=== PATIENT | male | born 1955 | race Caucasian/White ===

== ENCOUNTER 2018-07-23 09:49 | Inpatient (IN) | payer OTHER ==
[~2018-07-23] VITALS: Ht 188 cm; Wt 113.3 kg
[~2018-07-23 09:49] MED LIST: ALBU17AE3; ALBU17AE3 IH; DOXY100C2 PO; FLUT12AE6 IH; HYDR1TAB86; HYDROCODONE; LEVO500T69 PO; LOVA20TA2; LOVA40TA2 PO; MEDROL 4 MG; PRD50T PO
[2018-07-23] MEDS ORDERED: NS IV 1000 ML 1,000 ML IV STA (09:52)
[2018-07-23] MEDS ORDERED: fentaNYL INJECTION 100 MCG/2 ML AMP IVP STA (10:03)
[2018-07-23 10:12] LABS: BASOPHILS % (AUTO) 0 % (0-10); EOSINOPHILS % (AUTO) 0 % (0-10); HEMATOCRIT 56 % (40-54); HEMOGLOBIN 19.2 G/DL (13.3-17.7); LYMPHOCYTES # (AUTO) 1.3 X 10^3 (1.0-4.0); LYMPHOCYTES % (AUTO) 6 % (12-44); MEAN CORPUSCULAR HEMOGLOBIN 32 PG (25-34); MEAN CORPUSCULAR HGB CONC 34 G/DL (32-36); MEAN CORPUSCULAR VOLUME 93 FL (80-99); MEAN PLATELET VOLUME 10.3 FL (7.4-10.4); MONOCYTES # (AUTO) 0.5 X 10^3 (0.0-1.0); MONOCYTES % (AUTO) 2 % (0-12); NEUTROPHILS # (AUTO) 20.3 X 10^3 (1.8-7.8); NEUTROPHILS % (AUTO) 92 % (42-75); PLATELET COUNT 297 10^3/uL (130-400); RED BLOOD COUNT 6.03 10^6/uL (4.35-5.85); RED CELL DISTRIBUTION WIDTH 14.6 % (10.0-14.5); WHITE BLOOD COUNT 22.1 10^3/uL (4.3-11.0)
[2018-07-23] MEDS ORDERED: HYDROmorphone 2 MG/ML VIAL (DILAUDID) IV STA ×2 (10:18→11:31)
[2018-07-23 10:28] LABS: ALANINE AMINOTRANSFERASE 34 U/L (0-55); ALBUMIN 4.5 GM/DL (3.2-4.5); ALKALINE PHOSPHATASE 58 U/L (40-136); BILIRUBIN,TOTAL 0.4 MG/DL (0.1-1.0); BUN/CREATININE RATIO 18; CALCIUM 10.2 MG/DL (8.5-10.1); CARBON DIOXIDE 25 MMOL/L (21-32); CHLORIDE 99 MMOL/L (98-107); CREATININE SERUM 0.95 MG/DL (0.60-1.30); GFR ESTIMATED > 60; GLUCOSE 150 MG/DL (70-105); POTASSIUM 4.2 MMOL/L (3.6-5.0); SODIUM 138 MMOL/L (135-145); TOTAL PROTEIN 8.4 GM/DL (6.4-8.2)
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
[2018-07-23 10:51] LABS: BAND NEUTROPHILS 3 %; BASOPHILS % (MANUAL) 0 %; EOSINOPHILS % (MANUAL) 0 %; LYMPHOCYTES % (MANUAL) 7 %; MONOCYTES % (MANUAL) 0 %; NEUTROPHILS % (MANUAL) 90 %; RBC MORPH NORMAL
[2018-07-23] MEDS ORDERED: RECEIVED CONTRAST (Hold Metformin) IV SCH (11:00)
[2018-07-23] MEDS ORDERED: IOHEXOL 350 MG/ML 100 ML (OMNIPAQUE 350) VIAL IV ONE (11:00)
[2018-07-23] MEDS ORDERED: NS 100 ML (IVPB) BAG IV ONE (11:00)
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
[2018-07-23] MEDS ORDERED: HYDROmorphone 2 MG/ML VIAL (DILAUDID) IV ONE (12:45)
[2018-07-23 13:05] VITALS: BP 131/81
--- NOTE | 2018-07-23 13:10 | History & Physical-Hospitalist ---
History of Present Illness HPI/Chief Complaint This is a 62-year-old white male who has a history of having a perforated diverticulitis in the past requiring colectomy, with colostomy, and reanastomosis in the remote past by Dr. Vargas. He presents with about 24 hours of severe abdominal pain and bloating, without passing of flatus. CT shows small bowel obstruction, without evidence of perforation. He describes the abdominal pain is 10 out of 10. He had a large bowel movement yesterday but then began vomiting yesterday evening and overnight Source: patient Exam Limitations: no limitations Date Seen 07/23/18 Time Seen by a Provider: 13:00 Attending Physician Lizz Malhotra PCP Chelsea Bonilla Referring Physician Date of Admission Jul 23, 2018 at 11:47 Home Medications & Allergies Home Medications Reviewed patient Home Medication Reconciliation performed by pharmacy medication reconciliations hvac operations technician and/or nursing. Patients Allergies have been reviewed. Allergies Allergies Coded Allergies No Known Drug Allergies (Bzdrjiss25/23/07) Past Hamfrzm-Kcmwfg-Onhpdj Hx Past Med/Social Hx: Reviewed Nursing Past Med/Soc Hx Patient Social History Marrital Status: Employed/Student: unemployed Alcohol Use: Denies Use Recreational Drug Use: No Smoking Status: Current Everyday Smoker Recent Foreign Travel: No Contact w/other who traveled: No Recent Hopitalizations: Yes Recent Infectious Disease Expo: No Past Medical History Surgeries: Abdominal, Bowel Surgery, Gallbladder, Joint Replacement, Orthopedic (Bilateral knee replacement) Reproductive: No Gastrointestinal: Diverticulosis History of Blood Disorders: No Family History Reviewed Nursing Family Hx Review of Systems Constitutional: see HPI Respiratory: no symptoms reported Cardiovascular: no symptoms reported Gastrointestinal: abdominal pain, loss of appetite, vomiting Genitourinary: decreased output Musculoskeletal: joint pain (Right wrist) Skin: no symptoms reported Psychiatric/Neurological: No Symptoms Reported Physical Exam Physical Exam Vital Signs Vital Signs - First Documented 07/23/18 07/23/18 09:53 13:06 Temp 96.8 Pulse 101 Resp 16 B/P (MAP) 143/113 (123) Pulse Ox 94 O2 Delivery Room Air O2 Flow Rate 2.00 Capillary Refill : Less Than 3 Seconds Height, Weight, BMI Height: 6'2.00" Weight: 230lbs. oz. 104.674223we; BMI Method:Stated General Appearance: Moderate Distress Eyes: Bilateral Eye Normal Inspection HEENT: Other (Dry oral mucosa) Neck: Full Range of Motion, Non Tender, Supple Respiratory: Chest Non Tender, Lungs Clear, Normal Breath Sounds, No Accessory Muscle Use, No Respiratory Distress Cardiovascular: Regular Rate, Rhythm, No Gallop, No Murmur, Normal Peripheral Pulses Gastrointestinal: Abnormal Bowel Sounds, Distended, Guarding, Tenderness Rectal: Deferred Back: Normal Inspection, No CVA Tenderness, No Vertebral Tenderness Extremity: No Calf Tenderness, No Pedal Edema Neurologic/Psychiatric: Alert, Oriented x3, No Motor/Sensory Deficits, Normal 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 Imaging: Reviewed Imaging Report Assessment/Plan Admission Diagnosis Small bowel obstruction Chronic narcotics use secondary to joint pain History of diverticulitis with perforation requiring diverting colostomy and then reanastomosis Volume contraction with an elevated white count and hemoglobin Plan is to admit for IV fluids surgical consultation patient currently refuses an NG tube, will use pain management. Admission Status: Inpatient Order (span 2 midnights) Reason for Inpatient Admission: It is unlikely that this patient small bowel obstruction will resolve without surgical correction or prolonged NG tube placement Copy Copies To 1: FROILAN BONILLA KATHLEEN M MD Jul 23, 2018 13:10
[2018-07-23] MEDS ORDERED: HYDROmorphone 2 MG/ML VIAL (DILAUDID) IV PRN ×2 (13:15)
[2018-07-23] MEDS ORDERED: CATHETER FLUSH 10 ML SYR IV PRN (13:15)
[2018-07-23] MEDS: D5 LR IV SOLUTION 1,000 ML IV SCH ×2 (14:04→21:28)
[2018-07-23] MEDS: CATHETER FLUSH 10 ML SYR IV SCH ×2 (14:04→21:27)
--- NOTE | 2018-07-23 14:18 | Consultation ---
History of Present Illness History of Present Illness Patient Consulted On(conrado/time) 07/23/18 14:13 Date Seen by Provider: Jul 23, 2018 Time Seen by Provider: 14:13 Reason for Visit: acute onset of colicky abdominal pain and vomiting History of Present Illness Acute onset of colicky central abdominal pain followed by vomiting, leading to an emergency room visit. CT scan shows features of small bowel obstruction. His past surgical history is notable for diverticular sigmoid perforation 27 years ago requiring Yoon's procedure, followed 4 months later by a reversal of his colostomy. He reports undergoing normal colonoscopy within the last 5 years at an outside facility. Allergies and Home Medications Allergies Coded Allergies: No Known Drug Allergies (Verified , 05/22/07) Patient Home Medication List Home Medication List Reviewed: Yes Past Ucffyag-Kdqekt-Ytuorm Hx Past Med/Social Hx: Reviewed Nursing Past Med/Soc Hx Patient Social History Alcohol Use: Denies Use Recreational Drug Use: No Smoking Status: Current Everyday Smoker Type Used: Cigars Recent Foreign Travel: No Contact w/Someone Who Travel: No Recent Infectious Disease Expo: No Recent Hopitalizations: Yes Immunizations Up To Date PED Vaccines UTD: Yes Date of Pneumonia Vaccine: Jul 23, 2014 Date of Influenza Vaccine: Apr 30, 2018 Seasonal Allergies Seasonal Allergies: No Past Medical History Surgeries: Yes (BUNIONECTOMY,ARTHOSCOPIC MARILYNN KNEES) Abdominal, Bowel Surgery, Gallbladder, Joint Replacement, Orthopedic (Bilateral knee replacement) Respiratory: No Cardiac: No Neurological: No Reproductive Disorders: No Genitourinary: No Gastrointestinal: Yes (HAS AN UNBILICAL HERNIA, BOWEL OBSTRUCTION WITH A REVERSAL OF A COLOSTOMY) Diverticulosis Musculoskeletal: No Endocrine: No HEENT: No Cancer: No Psychosocial: No Integumentary: No Blood Disorders: No Family Medical History Reviewed Nursing Family Hx Cardiovascular disease 19 MOTHER G8 BROTHER Congenital heart disease 19 FATHER Review of Systems-General Constitutional: no symptoms reported EENTM: no symptoms reported Respiratory: no symptoms reported Cardiovascular: no symptoms reported Gastrointestinal: see HPI Genitourinary: no symptoms reported Musculoskeletal: joint pain Skin: no symptoms reported Psychiatric/Neurological: No Symptoms Reported Physical Exam-General Problems Physical Exam Vital Signs Vital Signs - First Documented 07/23/18 07/23/18 09:53 13:06 Temp 96.8 Pulse 101 Resp 16 B/P (MAP) 143/113 (123) Pulse Ox 94 O2 Delivery Room Air O2 Flow Rate 2.00 Capillary Refill : Less Than 3 Seconds General Appearance: no apparent distress Neck: supple Respiratory: lungs clear Cardiovascular: regular rate, rhythm Gastrointestinal: non tender, soft, distended Rectal: deferred Extremities: non-tender Neurologic/Psychiatric: alert, oriented x 3 Skin: warm/dry Comments midline laparotomy scar without any incisional hernia. Scar over the left lower quadrant resulting from temporary colostomy. Assessment/Plan Assessment/Plan Admission Diagnosis/Plan gentleman with small bowel obstruction. Possibly due to adhesions. Reasonable to manage nonoperatively at first. This would involve nasogastric tube decompression, IV fluids and observation. Should his symptoms persist, a water- soluble contrast study would be obtained first. Admission Status: Inpatient Order (span 2 midnights) Clinical Quality Measures DVT/VTE Risk/Contraindication: Risk Factor Score Per Nursin RFS Level Per Nursing on Admit: 3=High FUENTES SMALLS MD Jul 23, 2018 14:18
[2018-07-23] MEDS ORDERED: LORazepam INJ 2 MG/ML (ATIVAN) VIAL IVP PRN (14:30)
[2018-07-23] MEDS ORDERED: NICOTINE 21 MG (NICODERM) PATCH TD NR (14:30)
[2018-07-23] MEDS: ONDANSETRON 4 MG/2 ML (SDV) Z0FRAN IV PRN (14:37)
[2018-07-23] MEDS: fentaNYL INJECTION 100 MCG/2 ML AMP IVP PRN ×2 (14:39→21:48)
[2018-07-23] MEDS: LORazepam INJ 2 MG/ML (ATIVAN) VIAL IVP NR ×2 (14:39→15:18)
[2018-07-23 16:15] VITALS: BP 140/85
[2018-07-23 20:00] VITALS: BP 136/88
[2018-07-24] VITALS (7 sets, daily range): BP systolic 121–157; BP diastolic 72–171
[2018-07-24] MEDS: fentaNYL INJECTION 100 MCG/2 ML AMP IVP PRN ×3 (03:27→18:30)
[2018-07-24] MEDS: D5 LR IV SOLUTION 1,000 ML IV SCH ×3 (04:54→22:21)
[2018-07-24 06:23] LABS: BASOPHILS % (AUTO) 0 % (0-10); EOSINOPHILS # (AUTO) 0.1 10^3/uL (0.0-0.3); EOSINOPHILS % (AUTO) 0 % (0-10); HEMATOCRIT 50 % (40-54); HEMOGLOBIN 16.4 G/DL (13.3-17.7); LYMPHOCYTES # (AUTO) 1.8 X 10^3 (1.0-4.0); LYMPHOCYTES % (AUTO) 12 % (12-44); MEAN CORPUSCULAR HEMOGLOBIN 32 PG (25-34); MEAN CORPUSCULAR HGB CONC 33 G/DL (32-36); MEAN CORPUSCULAR VOLUME 97 FL (80-99); MEAN PLATELET VOLUME 10.4 FL (7.4-10.4); MONOCYTES # (AUTO) 1.4 X 10^3 (0.0-1.0); MONOCYTES % (AUTO) 9 % (0-12); NEUTROPHILS % (AUTO) 79 % (42-75); PLATELET COUNT 238 10^3/uL (130-400); RED BLOOD COUNT 5.12 10^6/uL (4.35-5.85); RED CELL DISTRIBUTION WIDTH 14.9 % (10.0-14.5); WHITE BLOOD COUNT 15.4 10^3/uL (4.3-11.0)
[2018-07-24 06:36] LABS: PROTHROMBIN TIME PATIENT 13.3 SEC (12.2-14.7)
[2018-07-24 06:50] LABS: ALANINE AMINOTRANSFERASE 23 U/L (0-55); ALBUMIN 3.6 GM/DL (3.2-4.5); ALKALINE PHOSPHATASE 45 U/L (40-136); BILIRUBIN,TOTAL 0.6 MG/DL (0.1-1.0); BUN/CREATININE RATIO 24; CALCIUM 9.1 MG/DL (8.5-10.1); CARBON DIOXIDE 28 MMOL/L (21-32); CHLORIDE 102 MMOL/L (98-107); CREATININE SERUM 0.84 MG/DL (0.60-1.30); GFR ESTIMATED > 60; GLUCOSE 124 MG/DL (70-105); POTASSIUM 3.9 MMOL/L (3.6-5.0); SODIUM 141 MMOL/L (135-145); TOTAL PROTEIN 6.2 GM/DL (6.4-8.2)
[2018-07-24] MEDS: ONDANSETRON 4 MG/2 ML (SDV) Z0FRAN IV PRN ×3 (06:58→19:48)
[2018-07-24] MEDS: CATHETER FLUSH 10 ML SYR IV SCH ×3 (07:34→22:46)
--- NOTE | 2018-07-24 10:02 | Progress Note (SOAP) ---
Subjective Date Seen by a Provider: Jul 24, 2018 Time Seen by a Provider: 10:00 Subjective/Events-last exam Abdominal pain better, reports nausea. Passed flatus. [facility] decreasing Review of Systems General: No Chills, No Night Sweats, No Fatigue, No Malaise HEENT: No Head Aches, No Eye Pain, No Ear Pain, No Dysphasia, No Sinus Congestion, No Post Nasal Drip, No Sore Throat Pulmonary: Cough Cardiovascular: No: Chest Pain, Palpitations, Orthopnea, Paroxysmal Noc. Dyspnea, Edema, Lt Headedness Gastrointestinal: Nausea Genitourinary: No Dysuria, No Frequency, No Incontinence, No Hematuria, No Retention Musculoskeletal: hand pain Neurological: No: Weakness, Numbness, Incoordination, Change in speech, Confusion, Seizures, Other Objective Exam Vital Signs Date Time Temp Pulse Resp B/P (MAP) Pulse Ox O2 Delivery O2 Flow Rate FiO2 07/24/18 07:38 98.9 84 20 157/86 (109) 94 Room Air 07/24/18 06:02 97.9 97 20 142/79 (100) 92 Room Air 07/24/18 04:00 97.9 97 20 142/79 (100) 92 Room Air 07/24/18 00:00 99.3 92 20 121/171 (155) 93 Room Air 07/23/18 20:00 99.7 98 16 136/88 (104) 88 Room Air 07/23/18 20:00 Room Air 07/23/18 16:15 97.9 92 20 140/85 (103) 93 Room Air 07/23/18 13:10 Nasal Cannula 2.00 07/23/18 13:06 89 16 137/96 (110) 96 Nasal Cannula 2.00 07/23/18 13:05 97.9 82 18 131/81 (98) 94 Room Air I & O 07/24/18 07:00 Intake Total 3000 ml Output Total 1525 ml Balance 1475 ml Capillary Refill : Less Than 3 SecondsLess Than 3 Seconds General Appearance: Anxious Neck: Normal Inspection Respiratory: Lungs Clear Cardiovascular: Regular Rate, Rhythm Gastrointestinal: non tender, soft Neurologic/Psychiatric: Alert, Oriented x3 Skin: Warm/Dry Other comments Abdominal distension resolved. Results Lab Laboratory Tests 07/23/18 10:04: White Blood Count 22.1H, Red Blood Count 6.03H, Hemoglobin 19.2H, Hematocrit 56H , Mean Corpuscular Volume 93, Mean Corpuscular Hemoglobin 32, Mean Corpuscular Hemoglobin Concent 34, Red Cell Distribution Width 14.6H, Platelet Count 297, Mean Platelet Volume 10.3, Neutrophils (%) (Auto) 92H, Lymphocytes (%) (Auto) 6L , Monocytes (%) (Auto) 2, Eosinophils (%) (Auto) 0, Basophils (%) (Auto) 0, Neutrophils # (Auto) 20.3H, Lymphocytes # (Auto) 1.3, Monocytes # (Auto) 0.5, Eosinophils # (Auto) 0.0, Basophils # (Auto) 0.0, Neutrophils % (Manual) 90, Lymphocytes % (Manual) 7, Monocytes % (Manual) 0, Eosinophils % (Manual) 0, Basophils % (Manual) 0, Band Neutrophils 3, Blood Morphology Comment NORMAL, Sodium Level 138, Potassium Level 4.2, Chloride Level 99, Carbon Dioxide Level 25, Anion Gap 14, Blood Urea Nitrogen 17, Creatinine 0.95, Estimat Glomerular Filtration Rate > 60, BUN/Creatinine Ratio 18, Glucose Level 150H, Calcium Level 10.2H, Corrected Calcium 9.8, Total Bilirubin 0.4, Aspartate Amino Transf (AST/SGOT) 20, Alanine Aminotransferase (ALT/SGPT) 34, Alkaline Phosphatase 58, C-Reactive Protein High Sensitivity 0.36, Total Protein 8.4H, Albumin 4.5 07/24/18 06:02: White Blood Count 15.4H, Red Blood Count 5.12, Hemoglobin 16.4, Hematocrit 50, Mean Corpuscular Volume 97, Mean Corpuscular Hemoglobin 32, Mean Corpuscular Hemoglobin Concent 33, Red Cell Distribution Width 14.9H, Platelet Count 238, Mean Platelet Volume 10.4, Neutrophils (%) (Auto) 79H, Lymphocytes (%) (Auto) 12 , Monocytes (%) (Auto) 9, Eosinophils (%) (Auto) 0, Basophils (%) (Auto) 0, Neutrophils # (Auto) 12.0H, Lymphocytes # (Auto) 1.8, Monocytes # (Auto) 1.4H, Eosinophils # (Auto) 0.1, Basophils # (Auto) 0.0, Sodium Level 141, Potassium Level 3.9, Chloride Level 102, Carbon Dioxide Level 28, Anion Gap 11, Blood Urea Nitrogen 20H, Creatinine 0.84, Estimat Glomerular Filtration Rate > 60, BUN /Creatinine Ratio 24, Glucose Level 124H, Calcium Level 9.1, Corrected Calcium 9.4, Total Bilirubin 0.6, Aspartate Amino Transf (AST/SGOT) 18, Alanine Aminotransferase (ALT/SGPT) 23, Alkaline Phosphatase 45, Total Protein 6.2L, Albumin 3.6, Prothrombin Time 13.3, INR Comment 1.0 Assessment/Plan Assessment/Plan Assess & Plan/Chief Complaint gentleman with small bowel obstruction. Possibly due to adhesions. Reasonable to manage nonoperatively at first. This would involve nasogastric tube decompression, IV fluids and observation. Should his symptoms persist, a water- soluble contrast study would be obtained first. Small bowel obstruction, improving. Gastrografin study in am. Final Diagnosis Small bowel obstruction Clinical Quality Measures DVT/VTE Risk/Contraindication: Risk Factor Score Per Nursin RFS Level Per Nursing on Admit: 3=High FUENTES SMALLS MD Jul 24, 2018 10:02
--- NOTE | 2018-07-24 12:14 | Progress Note-Hospitalist ---
Subjective HPI/CC On Admission Date Seen by Provider: Jul 24, 2018 Time Seen by Provider: 12:00 This is a 62-year-old white male who has a history of having a perforated diverticulitis in the past requiring colectomy, with colostomy, and reanastomosis in the remote past by Dr. Vargas. He presents with about 24 hours of severe abdominal pain and bloating, without passing of flatus. CT shows small bowel obstruction, without evidence of perforation. He describes the abdominal pain is 10 out of 10. He had a large bowel movement yesterday but then began vomiting yesterday evening and overnight Subjective/Events-last exam Patient feels a little bit better today. Dr. Patterson had an NG tube placed with about a liter of gastric output. It has passed some flatus today. he does complain of having a headache. Abdominal pain is better. White count is down. Review of Systems Gastrointestinal: Nausea Objective Exam Vital Signs Vital Signs Date Time Temp Pulse Resp B/P (MAP) Pulse Ox O2 Delivery O2 Flow Rate FiO2 07/24/18 07:38 98.9 84 20 157/86 (109) 94 Room Air 07/23/18 13:10 2.00 Capillary Refill : Less Than 3 SecondsLess Than 3 Seconds General Appearance: No Apparent Distress, WD/WN HEENT: Normal ENT Inspection Neck: Non Tender, Supple Respiratory: Chest Non Tender, Lungs Clear, Normal Breath Sounds, No Accessory Muscle Use, No Respiratory Distress Cardiovascular: Regular Rate, Rhythm, No Gallop, No Murmur Gastrointestinal: Abnormal Bowel Sounds, Distended Rectal: Deferred Back: Normal Inspection Extremity: No Pedal Edema Results/Procedures Lab Laboratory Tests 07/24/18 06:02 Patient resulted labs reviewed. Imaging: Reviewed Imaging Report Assessment/Plan Assessment and Plan Assess & Plan/Chief Complaint Small bowel obstruction-slightly improved today day number 2 NG suction, begin ambulation. Chronic narcotics use secondary to joint pain History of diverticulitis with perforation requiring diverting colostomy and then reanastomosis Volume contraction with an elevated white count and hemoglobin-improved Headache will allow sips of Coca-Cola for the caffeine Clinical Quality Measures DVT/VTE Risk/Contraindication: Risk Factor Score Per Nursin RFS Level Per Nursing on Admit: 3=EMPERATRIZ Dunn MD Jul 24, 2018 12:14
[2018-07-24] MEDS ORDERED: NICOTINE PATCH REMOVAL TP SCH (14:29)
[2018-07-24] MEDS: NICOTINE 21 MG (NICODERM) PATCH TD SCH (15:25)
[2018-07-24] MEDS ORDERED: KETOROLAC 15 MG/ML VIAL IM PRN (21:45)
[2018-07-25] VITALS: BP 133/60
[2018-07-25 04:00] VITALS: BP 161/80
[2018-07-25] MEDS: ONDANSETRON 4 MG/2 ML (SDV) Z0FRAN IV PRN (06:02)
[2018-07-25] MEDS: CATHETER FLUSH 10 ML SYR IV SCH (06:06)
[2018-07-25] MEDS: D5 LR IV SOLUTION 1,000 ML IV SCH (06:19)
[2018-07-25] MEDS: fentaNYL INJECTION 100 MCG/2 ML AMP IVP PRN (06:27)
[2018-07-25] MEDS ORDERED: DIATRIZOATE MEGLUM/SODIUM 37% 120 ML (GASTROGRAFIN) NG ONE (07:45)
[2018-07-25 08:00] VITALS: BP 136/88
[2018-07-25] MEDS ORDERED: NICOTINE PATCH REMOVAL TP SCH (08:59)
[2018-07-25] MEDS: NICOTINE 21 MG (NICODERM) PATCH TD SCH (09:53)
--- NOTE | 2018-07-25 10:00 | Diagnostic Imaging Report ---
Indication: Partial small bowel obstruction. 120 mL Gastrografin mixed with 120 mL water was injected into the patient's indwelling NG tube. Serial radiographs over the abdomen were obtained. Preliminary radiographs show NG tube within the stomach. Surgical clips in the right upper quadrant. Multiple BB foreign bodies overlie the left lower quadrant. The bowel gas pattern appears nonobstructive on the neuropsychiatrist view. Post injection images demonstrate contrast within the stomach with prompt emptying into the small bowel. There is normal progression of contrast into the right colon. No small bowel dilatation or evidence of small bowel obstruction is seen. The mucosal fold pattern is unremarkable. Impression: Normal small bowel follow-through study. There is no evidence of a small bowel obstruction. Dictated by: Dictated on workstation # [id number]
[2018-07-25 12:00] VITALS: BP 152/87
--- NOTE | 2018-07-25 13:16 | Progress Note (SOAP) ---
Subjective Date Seen by a Provider: Jul 25, 2018 Time Seen by a Provider: 13:15 Subjective/Events-last exam small bowel contrast study negative for mechanical obstruction. He has had several bowel movements and reports no abdominal pain. Review of Systems General: No Chills, No Night Sweats, No Fatigue, No Malaise HEENT: No Head Aches, No Eye Pain, No Ear Pain, No Dysphasia, No Sinus Congestion, No Post Nasal Drip, No Sore Throat Pulmonary: No Dyspnea, No Cough, No Pleuritic Chest Pain Cardiovascular: No: Chest Pain, Palpitations, Orthopnea, Paroxysmal Noc. Dyspnea, Edema, Lt Headedness Gastrointestinal: No: Nausea, Vomiting, Abdominal Pain, Diarrhea, Constipation , Melena, Hematochezia Genitourinary: No Dysuria, No Frequency, No Incontinence, No Hematuria, No Retention Musculoskeletal: No: other, neck pain, shoulder pain, arm pain, back pain, hand pain, leg pain, foot pain Neurological: No: Weakness, Numbness, Incoordination, Change in speech, Confusion, Seizures, Other Objective Exam Vital Signs Date Time Temp Pulse Resp B/P (MAP) Pulse Ox O2 Delivery O2 Flow Rate FiO2 07/25/18 09:02 Nasal Cannula 2.00 07/25/18 08:00 99.1 75 20 136/88 (104) 93 Room Air 07/25/18 04:00 98.5 84 18 161/80 (107) 92 Room Air 07/25/18 00:00 97.1 77 20 133/60 (84) 95 Room Air 07/24/18 20:00 Room Air 07/24/18 20:00 98.6 82 16 154/87 (109) 90 Room Air 07/24/18 16:00 98.5 86 18 148/80 (102) 91 Room Air I & O 07/25/18 07:00 Intake Total 3000 ml Output Total 4175 ml Balance -1175 ml Capillary Refill : Less Than 3 SecondsLess Than 3 Seconds General Appearance: Anxious Neck: Normal Inspection Respiratory: Lungs Clear Gastrointestinal: non tender, soft Extremity: No Normal Capillary Refill, No Normal Inspection, No Normal Range of Motion, No Non Tender, No No Calf Tenderness, No No Pedal Edema, No Calf Tenderness, No Inflammation, No Pedal Edema, No Pelvis Stable, No Slow Capillary Refill, No Swelling, No Other Neurologic/Psychiatric: Alert, Oriented x3 Skin: Warm/Dry Assessment/Plan Assessment/Plan Assess & Plan/Chief Complaint gentleman with small bowel obstruction. Possibly due to adhesions. Reasonable to manage nonoperatively at first. This would involve nasogastric tube decompression, IV fluids and observation. Should his symptoms persist, a water- soluble contrast study would be obtained first. Small bowel obstruction, improving. Gastrografin study in am. gentleman with partial small bowel obstruction, currently resolved. No mechanical obstruction and contrast study. Diet would be advanced and he could be discharged later today. Final Diagnosis partial small bowel obstruction, resolved Clinical Quality Measures DVT/VTE Risk/Contraindication: Risk Factor Score Per Nursin RFS Level Per Nursing on Admit: 3=High FUENTES SMALLS MD Jul 25, 2018 13:16
--- NOTE | 2018-07-25 13:23 | Discharge Summary ---
Diagnosis/Chief Complaint Date of Admission Jul 23, 2018 at 11:47 Date of Discharge 07/25/18 Discharge Date: Jul 25, 2018 Discharge Time: 13:22 Admission Diagnosis Admission Diagnosis small bowel obstruction Discharge Diagnosis partial small bowel obstruction, resolved Reason Hospital Visit Acute onset of colicky central abdominal pain followed by vomiting, leading to an emergency room visit. CT scan shows features of small bowel obstruction. His past surgical history is notable for diverticular sigmoid perforation 27 years ago requiring Yoon's procedure, followed 4 months later by a reversal of his colostomy. He reports undergoing normal colonoscopy within the last 5 years at an outside facility. managed conservatively with nasogastric tube decompression. Passed flatus and contrast study was negative for mechanical obstruction. He has since had several bowel movements.his diet will be advanced and he would follow up with me in 2 weeks to discuss an outpatient colonoscopy Discharge Summary Procedures small bowel contrast study Consultations surgical consultation Discharge Physical Examination Allergies: Coded Allergies: No Known Drug Allergies (Verified , 05/22/07) Vitals & I&Os Vital Signs Date Time Temp Pulse Resp B/P (MAP) Pulse Ox O2 Delivery O2 Flow Rate FiO2 07/25/18 09:02 Nasal Cannula 2.00 07/25/18 08:00 99.1 75 20 136/88 (104) 93 Hospital Course Labs (last 24 hrs) Laboratory Tests 07/23/18 10:04: White Blood Count 22.1H, Red Blood Count 6.03H, Hemoglobin 19.2H, Hematocrit 56H , Mean Corpuscular Volume 93, Mean Corpuscular Hemoglobin 32, Mean Corpuscular Hemoglobin Concent 34, Red Cell Distribution Width 14.6H, Platelet Count 297, Mean Platelet Volume 10.3, Neutrophils (%) (Auto) 92H, Lymphocytes (%) (Auto) 6L , Monocytes (%) (Auto) 2, Eosinophils (%) (Auto) 0, Basophils (%) (Auto) 0, Neutrophils # (Auto) 20.3H, Lymphocytes # (Auto) 1.3, Monocytes # (Auto) 0.5, Eosinophils # (Auto) 0.0, Basophils # (Auto) 0.0, Neutrophils % (Manual) 90, Lymphocytes % (Manual) 7, Monocytes % (Manual) 0, Eosinophils % (Manual) 0, Basophils % (Manual) 0, Band Neutrophils 3, Blood Morphology Comment NORMAL, Sodium Level 138, Potassium Level 4.2, Chloride Level 99, Carbon Dioxide Level 25, Anion Gap 14, Blood Urea Nitrogen 17, Creatinine 0.95, Estimat Glomerular Filtration Rate > 60, BUN/Creatinine Ratio 18, Glucose Level 150H, Calcium Level 10.2H, Corrected Calcium 9.8, Total Bilirubin 0.4, Aspartate Amino Transf (AST/SGOT) 20, Alanine Aminotransferase (ALT/SGPT) 34, Alkaline Phosphatase 58, C-Reactive Protein High Sensitivity 0.36, Total Protein 8.4H, Albumin 4.5 07/24/18 06:02: White Blood Count 15.4H, Red Blood Count 5.12, Hemoglobin 16.4, Hematocrit 50, Mean Corpuscular Volume 97, Mean Corpuscular Hemoglobin 32, Mean Corpuscular Hemoglobin Concent 33, Red Cell Distribution Width 14.9H, Platelet Count 238, Mean Platelet Volume 10.4, Neutrophils (%) (Auto) 79H, Lymphocytes (%) (Auto) 12 , Monocytes (%) (Auto) 9, Eosinophils (%) (Auto) 0, Basophils (%) (Auto) 0, Neutrophils # (Auto) 12.0H, Lymphocytes # (Auto) 1.8, Monocytes # (Auto) 1.4H, Eosinophils # (Auto) 0.1, Basophils # (Auto) 0.0, Sodium Level 141, Potassium Level 3.9, Chloride Level 102, Carbon Dioxide Level 28, Anion Gap 11, Blood Urea Nitrogen 20H, Creatinine 0.84, Estimat Glomerular Filtration Rate > 60, BUN /Creatinine Ratio 24, Glucose Level 124H, Calcium Level 9.1, Corrected Calcium 9.4, Total Bilirubin 0.6, Aspartate Amino Transf (AST/SGOT) 18, Alanine Aminotransferase (ALT/SGPT) 23, Alkaline Phosphatase 45, Total Protein 6.2L, Albumin 3.6, Prothrombin Time 13.3, INR Comment 1.0 Pending Labs Laboratory Tests 07/23/18 10:04: White Blood Count 22.1, Red Blood Count 6.03, Hemoglobin 19.2, Hematocrit 56, Mean Corpuscular Volume 93, Mean Corpuscular Hemoglobin 32, Mean Corpuscular Hemoglobin Concent 34, Red Cell Distribution Width 14.6, Platelet Count 297, Mean Platelet Volume 10.3, Neutrophils (%) (Auto) 92, Lymphocytes (%) (Auto) 6, Monocytes (%) (Auto) 2, Eosinophils (%) (Auto) 0, Basophils (%) (Auto) 0, Neutrophils # (Auto) 20.3, Lymphocytes # (Auto) 1.3, Monocytes # (Auto) 0.5, Eosinophils # (Auto) 0.0, Basophils # (Auto) 0.0, Neutrophils % (Manual) 90, Lymphocytes % (Manual) 7, Monocytes % (Manual) 0, Eosinophils % (Manual) 0, Basophils % (Manual) 0, Band Neutrophils 3, Blood Morphology Comment NORMAL, Sodium Level 138, Potassium Level 4.2, Chloride Level 99, Carbon Dioxide Level 25, Anion Gap 14, Blood Urea Nitrogen 17, Creatinine 0.95, Estimat Glomerular Filtration Rate > 60, BUN/Creatinine Ratio 18, Glucose Level 150, Calcium Level 10.2, Corrected Calcium 9.8, Total Bilirubin 0.4, Aspartate Amino Transf (AST/ SGOT) 20, Alanine Aminotransferase (ALT/SGPT) 34, Alkaline Phosphatase 58, C- Reactive Protein High Sensitivity 0.36, Total Protein 8.4, Albumin 4.5 07/24/18 06:02: White Blood Count 15.4, Red Blood Count 5.12, Hemoglobin 16.4, Hematocrit 50, Mean Corpuscular Volume 97, Mean Corpuscular Hemoglobin 32, Mean Corpuscular Hemoglobin Concent 33, Red Cell Distribution Width 14.9, Platelet Count 238, Mean Platelet Volume 10.4, Neutrophils (%) (Auto) 79, Lymphocytes (%) (Auto) 12 , Monocytes (%) (Auto) 9, Eosinophils (%) (Auto) 0, Basophils (%) (Auto) 0, Neutrophils # (Auto) 12.0, Lymphocytes # (Auto) 1.8, Monocytes # (Auto) 1.4, Eosinophils # (Auto) 0.1, Basophils # (Auto) 0.0, Sodium Level 141, Potassium Level 3.9, Chloride Level 102, Carbon Dioxide Level 28, Anion Gap 11, Blood Urea Nitrogen 20, Creatinine 0.84, Estimat Glomerular Filtration Rate > 60, BUN/ Creatinine Ratio 24, Glucose Level 124, Calcium Level 9.1, Corrected Calcium 9.4 , Total Bilirubin 0.6, Aspartate Amino Transf (AST/SGOT) 18, Alanine Aminotransferase (ALT/SGPT) 23, Alkaline Phosphatase 45, Total Protein 6.2, Albumin 3.6, Prothrombin Time 13.3, INR Comment 1.0 Discharge Home Medications: Active Scripts Active Reported Hydrocodone-Apap 10-500 Tablet (Acetaminophen/Hydrocodone Bitart) 1 Each Tablet Instructions to patient/family Please see electronic discharge instructions given to patient. Clinical Quality Measures DVT/VTE Risk/Contraindication: Risk Factor Score Per Nursin RFS Level Per Nursing on Admit: 3=High FUENTES SMALLS MD Jul 25, 2018 13:23
--- NOTE | 2018-07-25 13:24 | Discharge Inst-Simple/Standard ---
Discharge Inst-Standard Discharge Medications New, Converted or Re-Newed RX: Other Patient Instructions/Follow Up Plan of Care/Instructions/FU: follow-up with me in 2 weeks Activity as Tolerated: Yes Discharge Diet: Soft Diet FUENTES SMALLS MD Jul 25, 2018 13:24
[2018-07-25 15:30] VITALS: BP 152/87
--- NOTE | 2018-07-25 18:25 | Progress Note (SOAP) ---
Subjective Date Seen by a Provider: Jul 25, 2018 Time Seen by a Provider: 12:30 Subjective/Events-last exam Fwup partial SBO. Had small bowel follow through this AM and has had 2 BMs since. NG tube is clamped. Objective Exam Vital Signs Date Time Temp Pulse Resp B/P (MAP) Pulse Ox O2 Delivery O2 Flow Rate FiO2 07/25/18 15:30 71 20 152/87 92 Room Air 07/25/18 12:00 99.2 71 20 152/87 (108) 93 Room Air 07/25/18 09:02 Nasal Cannula 2.00 07/25/18 08:00 99.1 75 20 136/88 (104) 93 Room Air 07/25/18 04:00 98.5 84 18 161/80 (107) 92 Room Air 07/25/18 00:00 97.1 77 20 133/60 (84) 95 Room Air 07/24/18 20:00 Room Air 07/24/18 20:00 98.6 82 16 154/87 (109) 90 Room Air I & O 07/25/18 07:00 Intake Total 3000 ml Output Total 4175 ml Balance -1175 ml Capillary Refill : Less Than 3 SecondsLess Than 3 Seconds General Appearance: No Apparent Distress Neck: Supple Respiratory: Lungs Clear Cardiovascular: Regular Rate, Rhythm Gastrointestinal: normal bowel sounds, non tender, soft Neurologic/Psychiatric: Alert, Oriented x3 Skin: Warm/Dry Assessment/Plan Assessment/Plan Assess & Plan/Chief Complaint 1. Partial SBO--no obstruction on small bowel follow through so NG tube will be pulled per surgery and given diet and if tolerates then will consider DC per surgery Clinical Quality Measures DVT/VTE Risk/Contraindication: Risk Factor Score Per Nursin RFS Level Per Nursing on Admit: 3=High FROILAN BONILLA DO Jul 25, 2018 18:25
== END 2018-07-25 15:30 | disposition home or self-care (01) | DRG 390 ==
LOC: EDUNIT# 09:49 → ER 09:50 → 4TH 11:47
PROVIDERS: ADMIT Internal Medicine; ATTEND Family Medicine
PROC: 0D9670Z Drainage of Stomach with Drainage Device, Via Natural or Artificial Opening (ICD-10-PCS; principal; 2018-07-23)
DX: K56.690 Other partial intestinal obstruction (principal); F17.290 Nicotine dependence, other tobacco product, uncomplicated; G89.29 Other chronic pain; M25.531 Pain in right wrist; R51 Headache; D72.829 Elevated white blood cell count, unspecified; Z79.891 Long term (current) use of opiate analgesic; Z90.49 Acquired absence of other specified parts of digestive tract; Z87.19 Personal history of other diseases of the digestive system; Z96.653 Presence of artificial knee joint, bilateral
CPT/HCPCS: 36415; 74177; 74250; 80053; 85007; 85025; 85027; 85610; 86141; 96361; 96374; 96375; 96376

== ENCOUNTER 2018-08-21 13:44 | Outpatient (CLI) | payer OTHER ==
[~2018-08-21] VITALS: Ht 188 cm; Wt 103.9 kg
[~2018-08-21 13:44] MED LIST changes: +HYDR-3820 PO
== END 2018-08-21 13:46 | disposition home or self-care (01) ==
LOC: PREOP 13:44
PROVIDERS: ATTEND Surgery
DX: Z01.818 Encounter for other preprocedural examination (principal)

== ENCOUNTER → 2018-08-27 | Day surgery (SDC) | payer OTHER ==
[~2018-08-27] VITALS: Ht 188 cm; Wt 103.9 kg
[~2018-08-27] MED LIST changes: +HURRICAINE EXT TUBE (BENZOCAINE) ONE; +MIDAZOLAM 2 MG/2 ML (VERSED) VIAL IVP ONE; +MIDAZOLAM 2 MG/2 ML (VERSED) VIAL ONE; +NS IV 500 ML 500 ML IV PRN; +NS IV 500 ML 500 ML ONE; +fentaNYL INJECTION 100 MCG/2 ML AMP IVP ONE; +fentaNYL INJECTION 100 MCG/2 ML AMP ONE; +proPOfol 200 MG/20 ML (DIPRIVAN) VIAL IV ONE
--- NOTE | 2018-08-27 08:53 | Conscious Sedation/ASA ---
Conscious Sedation Pre-Proced Time 08:53 ASA Score 2 For ASA 3 and 4: Consider anesthesia and medical clearance. Also, for patients with a history of failed moderate sedation consider anesthesia. Airway Lungs Heart ASA score ASA 1: a normal healthy patient ASA 2: a patient with a mild systemic disease (mid diabetes, controlled hypertension, obesity ASA 3: a patient with a severe systemic disease that limits activity (angina , COPD, prior Myocardial infarction) ASA 4: a patient with an incapacitating disease that is a constant threat to life (CHF, renal failure) ASA 5: a moribund patient not expected to survive 24 hrs. (ruptured aneurysm) ASA 6: a declared brain patient whose organs are being harvested. For emergent operations, add the letter E after the classification Mallampati Classification Grade 2 Sedation Plan Discussed options with patient/fam The patient is an appropriate candidate to undergo the planned procedure, sedation, and anesthesia. The patient immediately re-assessed prior to indication. FUENTES SMALLS MD Aug 27, 2018 08:53
[2018-08-27 09:32] VITALS: BP 134/95
--- NOTE | 2018-08-27 10:17 | Endo Procedure Record ---
Endo Procedure Report Date of Procedure Last Colonoscopy: Yes Aug 27, 2018 Surgeon (s) FUENTES SMALLS MD Post Procedure/Op Diagnosis sigmoid diverticulosis 2 polyps, 3 mm each, adjacent to each other at the mid sigmoid colon Procedure Performed colonoscopy to cecum Snare polypectomy 2 Description of Procedure Anesthesia Type: Conscious Sedation Specimen(s) collected/removed sigmoid polyps. Description of the Procedure Indication for the procedure: This gentleman came in for colonoscopy to evaluate a change in his bowel habits. In addition, he reported a history of adenomatous polyps excised in the past. Informed consent was obtained after reviewing the procedure in detail. Description of the procedure: He was placed in left lateral rectus position and his vital signs were monitored. Conscious sedation was achieved using propofol infusion by our GEOGRAPHY HEAD. Digital rectal examination was unremarkable. The colonoscope was then introduced into the rectum and advanced all the way up to the cecum. The quality of bowel preparation was excellent. The scope was then withdrawn slowly and the mucosa examined in a systematic fashion. Findings: 1. Sigmoid diverticulosis without any inflammation 2. 2 polyps, 3 mm each, adjacent to each other, along the mid sigmoid colon. These were snared, retrieved and sent as one specimen. He tolerated the procedure well and was taken back to the nursing area in a stable condition. Impression: Change in bowel habits. Previous history of adenomatous polyps. Sigmoid polyps excised. Recommend repeating in 3 years. FUENTES SMALLS MD Aug 27, 2018 10:17
--- NOTE | 2018-08-27 10:19 | Discharge Inst-Simple/Standard ---
Discharge Inst-Standard Discharge Medications New, Converted or Re-Newed RX: Other Patient Instructions/Follow Up Plan of Care/Instructions/FU: repeat colonoscopy in 3 years. Activity as Tolerated: Yes Discharge Diet: No Restrictions FUENTES SMALLS MD Aug 27, 2018 10:19
[2018-08-27 10:25] VITALS: BP 117/75
[2018-08-27 10:45] VITALS: BP 132/90
[2018-08-27 10:54] VITALS: BP 132/90
== END | disposition home or self-care (01) ==
LOC: ENDO 08:47
PROVIDERS: ATTEND Surgery
DX: D12.5 Benign neoplasm of sigmoid colon (principal); K57.30 Diverticulosis of large intestine without perforation or abscess without bleeding; E78.5 Hyperlipidemia, unspecified; F17.290 Nicotine dependence, other tobacco product, uncomplicated; Z79.899 Other long term (current) drug therapy

== ENCOUNTER 2018-11-06 00:10 | Inpatient (IN) | payer MEDICARE, OTHER ==
[2018-11-06] VITALS (20 sets, daily range): BP systolic 101–129; BP diastolic 65–94
[~2018-11-06] VITALS: Ht 185.4 cm; Wt 104.3 kg
[~2018-11-06 00:10] MED LIST changes: -HURRICAINE EXT TUBE (BENZOCAINE) ONE; -MIDAZOLAM 2 MG/2 ML (VERSED) VIAL IVP ONE; -MIDAZOLAM 2 MG/2 ML (VERSED) VIAL ONE; -NS IV 500 ML 500 ML IV PRN; -NS IV 500 ML 500 ML ONE; -fentaNYL INJECTION 100 MCG/2 ML AMP IVP ONE; -fentaNYL INJECTION 100 MCG/2 ML AMP ONE; -proPOfol 200 MG/20 ML (DIPRIVAN) VIAL IV ONE
[2018-11-06] MEDS ORDERED: NS IV 1000 ML 1,000 ML IV ONE (00:13)
[2018-11-06] MEDS ORDERED: ASPIRIN 81 MG CHEW (CHILDREN'S ASA) PO ONE (00:15)
[2018-11-06] MEDS ORDERED: ONDANSETRON 4 MG/2 ML (SDV) Z0FRAN IVP ONE (00:15)
[2018-11-06] MEDS: NITROGLYCERIN 0.4 MG SL TABS BTL 25'S SL PRN ×2 (00:22→00:27)
[2018-11-06] MEDS ORDERED: morphine INJ 10 MG/ML 1ML (SYR OR VIAL) IV STA (00:30)
[2018-11-06] MEDS ORDERED: HEParin 1000 UNIT/ML (10ML VIAL) FOR BOLUS IV ONE (00:30)
[2018-11-06] MEDS ORDERED: HEParin DRIP 25000 UNIT/500ML 500 ML IV ONE (00:30)
[2018-11-06] MEDS ORDERED: meTOprolol 5 MG/5 ML (LOPRESSOR) VIAL IV ONE (00:30)
[2018-11-06] MEDS ORDERED: fentaNYL INJECTION 100 MCG/2 ML AMP ONE ×2 (00:35→01:05)
[2018-11-06 00:38] LABS: BASOPHILS # (AUTO) 0.1 10^3/uL (0.0-0.1); BASOPHILS % (AUTO) 0 % (0-10); EOSINOPHILS # (AUTO) 0.3 10^3/uL (0.0-0.3); EOSINOPHILS % (AUTO) 2 % (0-10); HEMATOCRIT 50 % (40-54); LYMPHOCYTES # (AUTO) 5.2 X 10^3 (1.0-4.0); LYMPHOCYTES % (AUTO) 35 % (12-44); MEAN CORPUSCULAR HEMOGLOBIN 32 PG (25-34); MEAN CORPUSCULAR HGB CONC 34 G/DL (32-36); MEAN CORPUSCULAR VOLUME 94 FL (80-99); MEAN PLATELET VOLUME 10.9 FL (7.4-10.4); MONOCYTES # (AUTO) 1.5 X 10^3 (0.0-1.0); MONOCYTES % (AUTO) 10 % (0-12); NEUTROPHILS # (AUTO) 7.9 X 10^3 (1.8-7.8); NEUTROPHILS % (AUTO) 53 % (42-75); PLATELET COUNT 278 10^3/uL (130-400); RED CELL DISTRIBUTION WIDTH 14.3 % (10.0-14.5)
--- NOTE | 2018-11-06 00:46 | NUR ---
CONSTENT FOR HEART CATHERIZATION WITH DR. STROUD.
[2018-11-06 00:47] LABS: ALANINE AMINOTRANSFERASE 21 U/L (0-55); ALBUMIN 4.2 GM/DL (3.2-4.5); ALKALINE PHOSPHATASE 57 U/L (40-136); AMYLASE 59 U/L (25-125); BILIRUBIN,TOTAL 0.4 MG/DL (0.1-1.0); BUN/CREATININE RATIO 14; CALCIUM 9.6 MG/DL (8.5-10.1); CARBON DIOXIDE 22 MMOL/L (21-32); CHLORIDE 104 MMOL/L (98-107); CREATINE KINASE 171 U/L (30-200); CREATININE SERUM 1.05 MG/DL (0.60-1.30); GFR ESTIMATED > 60; GLUCOSE 124 MG/DL (70-105); LIPASE 14 U/L (8-78); MAGNESIUM 2.6 MG/DL (1.8-2.4); POTASSIUM 3.8 MMOL/L (3.6-5.0); SODIUM 139 MMOL/L (135-145); TOTAL PROTEIN 7.4 GM/DL (6.4-8.2)
--- NOTE | 2018-11-06 00:50 | NUR ---
DR. STROUD HERE TO SEE PT.
[2018-11-06 00:52] LABS: ACETAMINOPHEN < 10 UG/ML (10-30)
[2018-11-06 00:55] LABS: CREATINE KINASE MB 3.2 NG/ML (<6.6)
[2018-11-06 01:01] LABS: BAND NEUTROPHILS 2 %; EOSINOPHILS % (MANUAL) 3 %; LYMPHOCYTES % (MANUAL) 41 %; MONOCYTES % (MANUAL) 5 %; NEUTROPHILS % (MANUAL) 49 %; RBC MORPH NORMAL
[2018-11-06 01:04] LABS: INR 0.8 (0.8-1.4); PROTHROMBIN TIME PATIENT 11.6 SEC (12.2-14.7)
[2018-11-06] MEDS ORDERED: LIDOCAINE 1% INJ 20 ML 20 ML VIAL ONE (01:04)
[2018-11-06] MEDS ORDERED: HEParin 1000 UNIT/ML (10ML VIAL) FOR BOLUS ONE (01:05)
[2018-11-06] MEDS ORDERED: MIDAZOLAM 5 MG/5 ML (VERSED) VIAL ONE (01:05)
[2018-11-06] MEDS ORDERED: NS IV 1000 ML 1,000 ML ONE (01:05)
[2018-11-06] MEDS ORDERED: HEParin (CATH LAB) 2,000 ML IV ONE (01:05)
--- NOTE | 2018-11-06 01:06 | Cardiology History & Physical ---
HPI-Cardiology Cardiology H&P Date of Admission 11/06/18 Primary Care Physician Liane,Local Physician Attending Physician Yuniel Rico MD, MA, FACP, FACC, FSCAI, CCDS Consulting Physician [facility] CC: Chest pain HPI: 63 yo man show awoke severe, mid-sternal pain/pressure associated with nausea and vomiting approx 1 hour prior to presentation, radiating towards shoulder and back. Has had such symptoms intermittently for three weeks lasting several min to an hour or so. No palp or syncope or leg swelling. Chronic exertional shortness of breath Review of Systems-Cardiology Review of Systems Constitutional: malaise, tiredness; No weight loss, No weight gain Eyes: No vision change Ears/Nose/Throat: No ear discharge, No nasal drainage, No recent hearing loss Respiratory: As described under HPI Cardiovascular: As described under HPI Gastrointestinal: As described under HPI Genitourinary: No dysuria, No hematuria, No urine frequency changes Musculoskeletal: No joint pain, No muscle pain Skin: No rash, No ulcerations Psychiatric/Neurological: No seizure, No focal weakness, No syncope Hematologic: No bleeding abnormalities FTO-Mgnimv-Pyiamx Hx Patient Social History Type Used: Cigars Recent Foreign Travel: No Immunizations Up To Date Tetanus Booster (TDap): Unknown Date of Pneumonia Vaccine: Jul 23, 2014 Date of Influenza Vaccine: Apr 30, 2018 Past Medical History PMH As described under Assessment. Family Medical History Family History: Cardiovascular disease 19 MOTHER G8 BROTHER Congenital heart disease 19 FATHER Allergies and Home Medications Allergies Coded Allergies: No Known Drug Allergies (Verified , 05/22/07) Home Medications Hydrocodone/Acetaminophen 1 Each Tablet, 1 EACH PO Q6H PRN for PAIN-MODERATE, ( Reported) Patient Home Medication List Home Medication List Reviewed: Yes Physical Exam-Cardiology Physical Exam Vital Signs/I&O Capillary Refill : Constitutional: AAO x 3, well-developed, well-nourished HEENT: PERRL, EOMI, hearing is well preserved; No xanthelasmas are seen Neck: carotid pulses are 2 + bilaterally, with good upstrokes Respiratory: No accessory muscle use; other (fair to good air entry bilat) Cardiovascular: regular rate-rhythm, S1 and S2, systolic murmur (soft LEXUS at card base) Gastrointestinal: No tender; soft; No guarding, No rebound; audible bowel sounds Extremities: No clubbing, No cyanosis, No significant edema Neurologic/Psychiatric: oriented x 3, grossly intact, power is 5/5 both on sides Skin: No rash on exposed areas, No ulcerations on exposed areas Data Review Labs Laboratory Tests 11/06/18 00:10: White Blood Count 15.0H, Red Blood Count 5.30, Hemoglobin 17.0, Hematocrit 50, Mean Corpuscular Volume 94, Mean Corpuscular Hemoglobin 32, Mean Corpuscular Hemoglobin Concent 34, Red Cell Distribution Width 14.3, Platelet Count 278, Mean Platelet Volume 10.9H, Neutrophils (%) (Auto) 53, Lymphocytes (%) (Auto) 35 , Monocytes (%) (Auto) 10, Eosinophils (%) (Auto) 2, Basophils (%) (Auto) 0, Neutrophils # (Auto) 7.9H, Lymphocytes # (Auto) 5.2H, Monocytes # (Auto) 1.5H, Eosinophils # (Auto) 0.3, Basophils # (Auto) 0.1, Sodium Level 139, Potassium Level 3.8, Chloride Level 104, Carbon Dioxide Level 22, Anion Gap 13, Blood Urea Nitrogen 15, Creatinine 1.05, Estimat Glomerular Filtration Rate > 60, BUN/ Creatinine Ratio 14, Glucose Level 124H, Calcium Level 9.6, Corrected Calcium 9.4, Magnesium Level 2.6H, Total Bilirubin 0.4, Aspartate Amino Transf (AST/SGOT ) 20, Alanine Aminotransferase (ALT/SGPT) 21, Alkaline Phosphatase 57, Total Creatine Kinase 171, Creatine Kinase MB 3.2, Myoglobin 85.2, Troponin I < 0.028 , Total Protein 7.4, Albumin 4.2, Amylase Level 59, Lipase 14, Acetaminophen Level < 10L, Serum Alcohol < 10 Laboratory Tests 11/06/18 00:10 A/P-Cardiology Assessment/Admission Diagnosis Acute coronary syndrome Chronic tobacco use Hypertension Admission Status: Inpatient Order (span 2 midnights) Reason for Inpatient Admission: Ac PR Discussion and Recomendations * Emergency card cath * Treat with ASA and heparin and beta-ana * Further plan based on card cath * I discussed in detail with him the rationale, procedure, risks, benefits, potential complications and alternative of card cath and possible ad hoc cor intervention with him. He understands and provides informed consent YUNIEL RICO MD [facility] CCDS Nov 06, 2018 01:06
[2018-11-06] MEDS ORDERED: EPTIFIBATIDE BOLUS 20 ML IV ONE (01:08)
[2018-11-06] MEDS ORDERED: NITRO DRIP 25000 MCG/D5W 250 ML IV ONE (01:08)
--- NOTE | 2018-11-06 01:13 | NUR ---
INTEGRATION SOFTWARE DEVELOPER STAFF HERE FOR PT.
--- NOTE | 2018-11-06 01:14 | NUR ---
PT DEPART TO AIRPLANE DISPATCH CLERK WITH AIRPLANE DISPATCH CLERK STAFF, ALL BELONGINGS WITH PT .
[2018-11-06] MEDS ORDERED: fentaNYL INJECTION 100 MCG/2 ML AMP IVP ONE (01:15)
[2018-11-06] MEDS ORDERED: NS (IVPB) 250 ML ONE (01:29)
[2018-11-06] MEDS ORDERED: niCARdipine 25 MG/10 ML (CARDENE) AMP IV ONE (01:29)
[2018-11-06] MEDS ORDERED: EPTIFIBATIDE DRIP 100 ML IV ONE (01:36)
[2018-11-06] MEDS ORDERED: CLOPIDOGREL 300 MG (PLAVIX) TABLET PO ONE (02:01)
[2018-11-06] MEDS ORDERED: NS IV 1000 ML 1,000 ML IV SCH (02:10)
[2018-11-06] MEDS ORDERED: ACETAMINOPHEN 325 MG TABLET PO PRN (02:15)
[2018-11-06] MEDS ORDERED: NITROGLYCERIN 0.4 MG SL TABS BTL 25'S SL PRN (02:15)
[2018-11-06] MEDS ORDERED: lisINopril 5 MG (PRINIVIL) TABLET PO ONE (02:15)
[2018-11-06] MEDS ORDERED: PATIENT MAY USE OWN MEDS, ALL PO SCH (02:15)
--- NOTE | 2018-11-06 02:24 | ED Chest Pain ---
General Chief Complaint: Chest Pain Stated Complaint: CHEST PAINS, THROWING UP Nursing Triage Note: AMBULATORY TO ED ROOM 7 CLUTCHING CHEST AND STATING SEVERE CHEST PAIN THAT HAS BEEN GOING ON FOR APPROX 3 WEEKS, COMING AND GOING. TONIGHT THE PAIN DID NOT SUBSIDE AND BECAME INCREASINGLY WORSE. STATES HE VOMITTED ON SIDE OF ROAD ON WAY TO ER. 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 STATES HE ALSO WAS INCONTINENT OF STOOL WHEN HE VOMITED PT STATES HE HAS BEEN SWEATING AND HAS BEEN CLAMMY SINCE HE WOKE UP NOTHING WORSENS OR IMPROVES PAIN STATES FOR THE LAST 2-3 WEEKS, HE HAS BEEN HAVING THIS SAME PAIN, BUT NOT THIS BAD, AND HAS GONE AWAY AFTER A FEW MINUTES--UP TO AN HOUR. STATES THIS PAIN IS WORSE AND WILL NOT GO AWAY PT DENIES ANY HISTORY OF HEART PROBLEMS, STATES HIS BROTHER OF HEART DISEASE AND HE HAD A STRESS TEST 23 YEARS AGO AFTER HIS BROTHER , BUT HAS NEVER FOLLOWED UP FOR ANY FURTHER CARDIAC EVALUATIONS. LAST ATE AT 2030 TONIGHT Allergies and Home Medications Allergies Coded Allergies: No Known Drug Allergies (Verified , 05/22/07) Home Medications Hydrocodone/Acetaminophen 1 Each Tablet, 1 EACH PO Q6H PRN for PAIN-MODERATE, ( Reported) Patient Home Medication List Home Medication List Reviewed: Yes Review of Systems Review of Systems Constitutional: see HPI, diaphoresis, malaise Respiratory: See HPI; Denies Cough, Denies Orthopnea Cardiovascular: See HPI, Chest Pain; Denies Edema, Denies Lightheadedness, Denies Palpitations, Denies Syncope Gastrointestinal: See HPI; Denies Abdominal Pain; Nausea, Vomiting Genitourinary: No Symptoms Reported Musculoskeletal: see HPI, back pain Skin: no symptoms reported Psychiatric/Neurological: No Symptoms Reported Endocrine: No Symptoms Reported Hematologic/Lymphatic: No Symptoms Reported Past Hdlzqkv-Rgwciz-Qqkzsm Hx Patient Social History Alcohol Use: Past History ("WHEN YOUNGER" ) Recreational Drug Use: Yes (THC "WHEN YOUNGER") Drug of Choice: THC "WHEN YOUNGER" Smoking Status: Current Everyday Smoker (1 PPD) Type Used: Cigars, Cigarettes Recent Foreign Travel: No Contact w/Someone Who Travel: No Recent Infectious Disease Expo: No Recent Hopitalizations: No Immunizations Up To Date Tetanus Booster (TDap): Unknown PED Vaccines UTD: Yes Date of Pneumonia Vaccine: Jul 23, 2014 Date of Influenza Vaccine: Apr 30, 2018 Seasonal Allergies Seasonal Allergies: No Past Medical History Surgeries: Yes (BUNIONECTOMY; ARTHOSCOPIC BILATERAL KNEES; BILATERAL KNEE REPLACEMENTS; PERFORATED DIVERTICULUM WITH COLON RESECTION/COLOSTOMY AND LATER RE-ANASTAMOSIS; COLONOSCOPIES--LAST ONE 08/27/18) Abdominal, Bowel Surgery, Gallbladder, Joint Replacement, Orthopedic Respiratory: No Cardiac: No Neurological: No Reproductive Disorders: No Genitourinary: No Gastrointestinal: Yes (HAS AN UNBILICAL HERNIA, BOWEL OBSTRUCTION WITH A REVERSAL OF A COLOSTOMY) Diverticulosis Musculoskeletal: No Endocrine: No HEENT: No Cancer: No Psychosocial: No Integumentary: No Blood Disorders: No Family Medical History Cardiovascular disease 19 MOTHER G8 BROTHER Congenital heart disease 19 FATHER Physical Exam Vital Signs Vital Signs - First Documented 11/06/18 00:10 Temp 96.5 Pulse 70 Resp 18 B/P (MAP) 159/111 (127) Capillary Refill : Less Than 3 Seconds Height, Weight, BMI Height: 6'1.00" Weight: 230lbs. 0oz. [id number]; 29.4 BMI Method:Stated General Appearance: WD/WN, Moderate Distress (VERY DRAMATIC, MOANING LOUDLY, CLENCHING CENTER OF CHEST. ), Other (REEKS OF CIGARETTES, UNKEMPT) HEENT: Other (POOR DENTITION) Neck: Full Range of Motion, Normal Inspection, Non Tender, Supple; No Carotid Bruit, No JVD Respiratory: Chest Non Tender, Normal Breath Sounds, No Accessory Muscle Use, No Respiratory Distress Cardiovascular: Regular Rate, Rhythm, No Edema, No JVD, No Murmur, Normal Peripheral Pulses Gastrointestinal: Normal Bowel Sounds, No Organomegaly, No Pulsatile Mass, Non Tender, Soft Extremity: Normal Range of Motion, Non Tender, No Calf Tenderness, No Pedal Edema Neurologic/Psychiatric: Alert, Oriented x3, No Motor/Sensory Deficits, logistics assistant II- XII Norm as Tested, Other (ANXIOUS) Skin: Cool, Damp, Pallor Progress/Results/Core Measures Results/Orders Lab Results Laboratory Tests Test 11/06/18 00:10 Range/Units White Blood Count 15.0 H 4.3-11.0 10^3/uL Red Blood Count 5.30 4.35-5.85 10^6/uL Hemoglobin 17.0 13.3-17.7 G/DL Hematocrit 50 40-54 % Mean Corpuscular Volume 94 80-99 FL Mean Corpuscular Hemoglobin 32 25-34 PG Mean Corpuscular Hemoglobin Concent 34 32-36 G/DL Red Cell Distribution Width 14.3 10.0-14.5 % Platelet Count 278 130-400 10^3/uL Mean Platelet Volume 10.9 H 7.4-10.4 FL Neutrophils (%) (Auto) 53 42-75 % Lymphocytes (%) (Auto) 35 12-44 % Monocytes (%) (Auto) 10 0-12 % Eosinophils (%) (Auto) 2 0-10 % Basophils (%) (Auto) 0 0-10 % Neutrophils # (Auto) 7.9 H 1.8-7.8 X 10^3 Lymphocytes # (Auto) 5.2 H 1.0-4.0 X 10^3 Monocytes # (Auto) 1.5 H 0.0-1.0 X 10^3 Eosinophils # (Auto) 0.3 0.0-0.3 10^3/uL Basophils # (Auto) 0.1 0.0-0.1 10^3/uL Neutrophils % (Manual) 49 % Lymphocytes % (Manual) 41 % Monocytes % (Manual) 5 % Eosinophils % (Manual) 3 % Band Neutrophils 2 % Blood Morphology Comment NORMAL Prothrombin Time 11.6 L 12.2-14.7 SEC INR Comment 0.8 0.8-1.4 Activated Partial Thromboplast Time 32 24-35 SEC Sodium Level 139 135-145 MMOL/L Potassium Level 3.8 3.6-5.0 MMOL/L Chloride Level 104 98-107 MMOL/L Carbon Dioxide Level 22 21-32 MMOL/L Anion Gap 13 5-14 MMOL/L Blood Urea Nitrogen 15 7-18 MG/DL Creatinine 1.05 0.60-1.30 MG/DL Estimat Glomerular Filtration Rate > 60 BUN/Creatinine Ratio 14 Glucose Level 124 H 70-105 MG/DL Calcium Level 9.6 8.5-10.1 MG/DL Corrected Calcium 9.4 8.5-10.1 MG/DL Magnesium Level 2.6 H 1.8-2.4 MG/DL Total Bilirubin 0.4 0.1-1.0 MG/DL Aspartate Amino Transf (AST/SGOT) 20 5-34 U/L Alanine Aminotransferase (ALT/SGPT) 21 0-55 U/L Alkaline Phosphatase 57 40-136 U/L Total Creatine Kinase 171 30-200 U/L Creatine Kinase MB 3.2 <6.6 NG/ML Myoglobin 85.2 10.0-92.0 NG/ML Troponin I < 0.028 <0.028 NG/ML B-Type Natriuretic Peptide 22.7 <100.0 PG/ML Total Protein 7.4 6.4-8.2 GM/DL Albumin 4.2 3.2-4.5 GM/DL Amylase Level 59 25-125 U/L Lipase 14 8-78 U/L Acetaminophen Level < 10 L 10-30 UG/ML Serum Alcohol < 10 <10 MG/DL My Orders Orders - ALEJANDRA MEDINA DO Cbc With Automated Diff (11/06/18 00:13) Magnesium (11/06/18 00:13) Chest 1 View, Ap/Pa Only (11/06/18 00:13) Ekg Tracing (11/06/18:13) Cardiac Profile 1 (11/06/18:13) Comprehensive Metabolic Panel (11/06/18:13) Myoglobin Serum (11/06/18 00:13) Protime With Inr (11/06/18:13) Partial Thromboplastin Time (11/06/18:13) O2 (11/06/18:13) Monitor-Rhythm Ecg Trace Only (11/06/18:13) Lipid Panel (11/07/18 06:00) Saline Lock/Iv-Start (11/06/18:13) Creatine Kinase (11/06/18:13) Creatine Kinase Mb (11/06/18:13) Lipase (11/06/18 00:13) Amylase (11/06/18:13) BNP (11/06/18:13) Nitroglycerin 0.4 Mg Btl 25's (Nitrostat (11/06/18:15) Aspirin Chewable Tablet (Baby Aspirin Ch (11/06/18:15) Acetaminophen (11/06/18:13) Alcohol (11/06/18:13) Drug Screen Stat (Urine) (11/06/18:13) Ua Culture If Indicated (11/06/18:13) Ondansetron Injection (Zofran Injectio (11/06/18:15) Saline Lock/Iv-Start (11/06/18:13) Ns Iv 1000 Ml (Sodium Chloride 0.9%) (11/06/18 00:13) Ekg Tracing (11/06/18 00:20) Heparin Drip 51272 Unit/500ml (Heparin (11/06/18 00:30) Heparin (Bolus Per Protocol) (Heparin (B (11/06/18 00:30) Morphine Injection (Morphine Injection (11/06/18 00:30) Metoprolol Tartrate Injection (Lopressor (11/06/18 00:30) Fentanyl Injection (Sublimaze Injection (11/06/18 00:35) Manual Differential (11/06/18 00:10) Fentanyl Injection (Sublimaze Injection (11/06/18 01:15) Lidocaine 1% Inj 20 Ml (Xylocaine 1% Inj (11/06/18 01:04) Midazolam Injection (Versed Injection) (11/06/18 01:05) Fentanyl Injection (Sublimaze Injection (11/06/18 01:05) Heparin (Bolus Per Protocol) (Heparin (B (11/06/18 01:05) Ns Iv 1000 Ml (Sodium Chloride 0.9%) (11/06/18 01:05) Heparin (Deputy Commissioner) (Heparin (Deputy Commissioner)) (11/06/18 01:05) Nitro Drip 74390 Mcg/D5w (Nitroglycerin (11/06/18 01:08) Eptifibatide Bolus (Integrilin Bolus) (11/06/18 01:08) Medications Given in ED Current Medications Medications Dose Ordered Sig/Nolberto Route Start Time Stop Time Status Last Admin Dose Admin Aspirin 324 mg ONCE ONCE PO 11/06/18 00:15 11/06/18 00:16 DC 11/06/18 00:20 324 MG Fentanyl Citrate 100 mcg STK-MED ONCE .ROUTE 11/06/18 00:35 11/06/18 00:38 DC 11/06/18 00:43 100 MCG Heparin Sodium (Porcine) HEPARIN FULL PROTOC... ONCE ONCE IV 11/06/18 00:30 11/06/18 00:32 DC 11/06/18 00:44 5,000 UNIT Heparin Sodium/ Dextrose 500 ml @ 0 mls/hr Q0M ONCE IV 11/06/18 00:30 11/06/18 00:32 DC 11/06/18 00:47 20.8 MLS/HR Metoprolol Tartrate 5 mg ONCE ONCE IV 11/06/18 00:30 11/06/18 00:32 DC 11/06/18 00:47 5 MG Nitroglycerin 0.4 mg UD PRN SL 11/06/18 00:15 11/06/18 00:27 0.4 MG Ondansetron HCl 8 mg ONCE ONCE IVP 11/06/18 00:15 11/06/18 00:16 DC 11/06/18 00:24 8 MG Sodium Chloride 1,000 ml @ 0 mls/hr Q0M ONCE IV 11/06/18 00:13 11/06/18 00:16 DC 11/06/18 00:24 999 MLS/HR Vital Signs/I&O 11/06/18 00:10 Temp 96.5 Pulse 70 Resp 18 B/P (MAP) 159/111 (127) Blood Pressure Mean: 106 Progress Progress Note : Progress Note O2 SAT 90% ON ROOM AIR ON ARRIVAL, UP TO MID 90'S ON 2L/NC PAIN DOWN TO 7/10 WITH NTG X 2; AND BP DOWN TO 140'S/90'S AFTER NTG X 2 PT GIVEN FENTANYL 50 MCG--WITH TEMPORARY RELIEF, THEN PAIN BACK UP TO 7/10 AFTER 15-20 MINUTES, SO REPEAT DOSE GIVEN, WHICH AGAIN IMPROVED PAIN NO DETERIORATION IN PT'S CONDITION DURING ER STAY Initial ECG Impression Date: Nov 06, 2018 Initial ECG Impression Time: 00:08 Initial ECG Rate: 70 Initial ECG Rhythm: Normal Sinus Initial ECG Impression: Acute TN (ANTERIOR ST ELEVATION WITH ST DEPRESSION IN INFERIOR LEADS) Initial ECG Comparisson: Changed (FROM 2009) EKG : EKG Time: 00:19 Rate: 69 Rhythm: Normal Sinus ECG Impression: Acute TN Diagnostic Imaging Comments CXR--NO ACUTE PROCESS, PENDING RADIOLOGIST REVIEW Reviewed: Reviewed by Me Departure Communication (Admissions) 0025--CALLED DR. STROUD. WILL BE IN TO SEE PT AND ADVISES TO CALL IN AGRICULTURAL EDUCATION PROFESSOR. ORDERS NOTED FOR LOPRESSOR, HEPARIN AND MORPHINE ( PT LATER STATES HE DOES NOT LIKE MORPHINE--CAUSES SEVERE HICCUPS--GIVEN FENTANYL IN STEAD) 0053--DR. STROUD HERE, CARE TURNED OVER TO HIM Impression Primary Impression: STEMI (ST elevation myocardial infarction) Additional Impressions: HTN (hypertension) Smoker COPD (chronic obstructive pulmonary disease) Disposition: ADMITTED INPATIENT (TO AGRICULTURAL EDUCATION PROFESSOR) Condition: Improved Admissions Decision to Admit Reason: Admit from ER (General) (TO AGRICULTURAL EDUCATION PROFESSOR) Decision to Admit/Date: Nov 06, 2018 Time/Decision to Admit Time: 00:25 Departure-Patient Inst. Referrals: NO,LOCAL PHYSICIAN (PCP) Primary Care Physician ALEJANDRA MEDINA DO Nov 06, 2018 02:24
--- NOTE | 2018-11-06 02:30 | NUR ---
GERMAN HENRY admitted to room CU11, with an admitting diagnosis of STEMI , on 11/06/18 via , accompanied by .GERMAN HENRY introduced to surroundings, call light, bed controls, phone, TV, temperature control, lights, meal times, smoking policy, visitor policy, side rail policy, bathrooms and showers. Patient Rights given to patient in the handbook.GERMAN HENRY verbalizes understanding that [facility] is not responsible for the loss or damage to any personal effects or valuables that are kept in the patients posession during their hospitalization. The following Patient Care Plans were discussed with the : Discharge Planning, ,, and . GERMAN HENRY verbalizes understanding of Interdisciplinary Patient Education. Patient and/or family were informed about the Rapid Response Team and its purpose.
[2018-11-06 03:51] LABS: BASOPHILS % (AUTO) 0 % (0-10); EOSINOPHILS # (AUTO) 0.1 10^3/uL (0.0-0.3); EOSINOPHILS % (AUTO) 1 % (0-10); HEMATOCRIT 46 % (40-54); HEMOGLOBIN 15.3 G/DL (13.3-17.7); LYMPHOCYTES # (AUTO) 2.1 X 10^3 (1.0-4.0); LYMPHOCYTES % (AUTO) 18 % (12-44); MEAN CORPUSCULAR HEMOGLOBIN 32 PG (25-34); MEAN CORPUSCULAR HGB CONC 33 G/DL (32-36); MEAN CORPUSCULAR VOLUME 95 FL (80-99); MEAN PLATELET VOLUME 10.9 FL (7.4-10.4); MONOCYTES # (AUTO) 0.7 X 10^3 (0.0-1.0); MONOCYTES % (AUTO) 5 % (0-12); NEUTROPHILS # (AUTO) 9.2 X 10^3 (1.8-7.8); NEUTROPHILS % (AUTO) 76 % (42-75); PLATELET COUNT 247 10^3/uL (130-400); RED CELL DISTRIBUTION WIDTH 14.4 % (10.0-14.5); WHITE BLOOD COUNT 12.1 10^3/uL (4.3-11.0)
[2018-11-06 04:09] LABS: BUN/CREATININE RATIO 18; CALCIUM 8.4 MG/DL (8.5-10.1); CARBON DIOXIDE 22 MMOL/L (21-32); CHLORIDE 105 MMOL/L (98-107); CREATININE SERUM 0.83 MG/DL (0.60-1.30); GFR ESTIMATED > 60; GLUCOSE 124 MG/DL (70-105); MAGNESIUM 2.2 MG/DL (1.8-2.4); SODIUM 136 MMOL/L (135-145)
[2018-11-06] MEDS: MAGNESIUM 1 GM/100 ML IVPB 100 ML IV SCH (04:50)
[2018-11-06] MEDS: POTASSIUM CL 10MEQ/50ML IVPB 50 ML IV SCH (04:50)
[2018-11-06] MEDS: KCL 20 MEQ TAB (K-DUR) PO SCH (04:50)
[2018-11-06] MEDS ORDERED: meTOprolol TARTRATE 25 MG (LOPRESSOR) TABLET ONE (04:54)
--- NOTE | 2018-11-06 05:36 | CARDIAC CATHETERIZATION ---
DATE OF SERVICE: 11/06/2018 CARDIAC CATHETERIZATION AND CORONARY INTERVENTION REPORT INDICATIONS: The patient is a 63-year-old man who presented with chest discomfort and nausea and vomiting. His EKG was abnormal and there was some ST segment elevation in the anterior leads. There was approximately 15-minute delay from the emergency room before they called us. As soon as we were called, we called the cardiac catheterization laboratory and the patient was brought in to the cardiac catheterization laboratory as soon as the crew got here. We had obtained informed consent for cardiac catheterization and coronary intervention, given that the patient was having an acute myocardial infarction with continuing symptoms. He provided informed consent for cardiac catheterization and possible ad hoc coronary intervention. PROCEDURE: The right groin was prepared and draped in the usual sterile fashion. Lidocaine 1% with local anesthesia. Modified Seldinger technique was used to advance a 6-Niuean sheath in the right femoral artery, 6-Niuean JL4 guide catheter was used to engage the left coronary artery and diagnostic coronary angiography was performed, which indicated ostial/proximal occlusion of the left anterior descending artery. Percutaneous intervention was carried out as described below. Following successful opening of the left anterior descending, we removed the interventional equipment and carried out diagnostic right coronary angiography with a 5-Niuean JR4 catheter. We used a 5-Niuean pigtail catheter was used to carry out left heart catheterization, left ventricular angiography. We carried out angiography of the right femoral artery through the sheath and Mynx was used to achieve hemostasis. PERCUTANEOUS INTERVENTION TO THE LEFT ANTERIOR DESCENDING: The left anterior descending artery was occluded in its ostial/proximal portion. We used a 6-Niuean JL4 guide catheter to advance a ChoICE floppy wire across the lesion and the tip was placed in the distal vessel. Balloon angioplasty was carried out with Emerge 2.0 x 30 mm balloon, which restored flow from ROBBIE 0 to ROBBIE 2. Onic-gb-rmxbzyv 84 min (Bgrzujbvri-Shfjuko-pikipd to balloon time 66 min ) The balloon was removed. We advanced a Mirela 3.0 x 23 mm stent. This was carefully positioned to cover the entire lesion and the proximal edge of the stent is flush with the ostium of the left anterior descending. The stent was deployed at 16 atmospheres. Subsequent angiography revealed 0% residual stenosis at the previous site of complete occlusion and flow throughout the vessel is ROBBIE 3 following this intervention and 100 mcg of intracoronary nitroglycerin. At this point, the angioplasty equipment was removed. HEMODYNAMICS: Left ventricular end-diastolic pressure following coronary angiography was 21 mmHg. There is no significant pressure gradient on pullback across the aortic valve. Ascending aortic pressure was 102/64 with a mean of 80 mmHg. LEFT VENTRICULAR ANGIOGRAPHY: Left ventricular angiography was carried out in the right anterior oblique projection. Global left ventricular systolic function is impaired. There is anteroapical hypokinesis to akinesis. Left ventricular ejection fraction approximately 35% to 40%. There does not appear to be significant mitral regurgitation. CORONARY ANGIOGRAPHY: Left main coronary artery was occluded in its ostial/proximal portion. This was successfully intervened on. Following deployment of TR at 3.0 x 23 mm stent, there is 0% residual stenosis and flow throughout the vessel is normal. The mid and distal left anterior descending artery has multiple up to 50% stenoses. The left circumflex artery has multiple stenoses up to 50%. The right coronary artery is dominant and has multiple stenoses of 40 of up to approximately 40%. CONCLUSIONS: 1. Acute ST-elevation myocardial infarction due to ostial/proximal occlusion of the left anterior descending artery that was treated with successful primary angioplasty and stenting. Following deployment of Mirela 3.0 x 23 mm stent, there is no significant residual stenosis. The rest of the coronary vessels have diffuse moderate disease. 2. Impairment of global left ventricular systolic function with anteroapical hypokinesis to akinesis and left ventricular ejection fraction of 35% to 40%. 3. Elevated left ventricular end-diastolic pressure. DISCUSSION AND RECOMMENDATIONS: Dual antiplatelet therapy has been initiated. Beta ana and HARJIT inhibitor therapy is being initiated. This will be given as tolerated by blood pressure. Statin therapy is being initiated. We have advised him to quit smoking immediately and completely. He is being hospitalized after presenting with acute myocardial infarction and after this interventional procedure. Job ID: [id number] DocumentID: [id number] Dictated Date: 11/06/2018 02:07:21 Snack Bar Cook Date: 11/06/2018 05:36:10 Dictated By: DORIAN STROUD MD, MA, FACP, FACC, MTDD
--- NOTE | 2018-11-06 06:39 | Diagnostic Imaging Report ---
INDICATION: Chest pain. Portable upright AP view of the chest is obtained with comparison made study of 05/18/2010. FINDINGS: Overall heart size and pulmonary vascularity are within normal limits. There is mild basilar atelectasis. No consolidation or significant pleural fluid is appreciated. IMPRESSION: Mild basilar atelectasis and/or pneumonitis without other evidence of acute abnormality. Dictated by: Dictated on workstation # [id number]
[2018-11-06] MEDS: CLOPIDOGREL 75 MG (PLAVIX) TABLET PO SCH (09:40)
[2018-11-06] MEDS: ASPIRIN 81 MG CHEW (CHILDREN'S ASA) PO SCH (09:40)
[2018-11-06] MEDS: lisINopril 5 MG (PRINIVIL) TABLET PO SCH (09:41)
--- NOTE | 2018-11-06 11:31 | NUR ---
Pt is Confucianist but does not request sacraments. Pipe Joints Supervisor offered blessing.
[2018-11-06] MEDS ORDERED: ASPI-999 PO (15:33)
[2018-11-06] MEDS ORDERED: CLOP75TA28 PO (15:33)
[2018-11-06] MEDS ORDERED: ATOR40TA PO (15:33)
[2018-11-06] MEDS ORDERED: LISI-556 PO (15:33)
[2018-11-06] MEDS ORDERED: METO-387 PO (15:33)
[2018-11-06] MEDS ORDERED: ATORVASTATIN 40 MG (LIPITOR) TABLET PO SCH (21:00)
[2018-11-07] VITALS: BP 104/74
--- NOTE | 2018-11-07 00:53 | NUR ---
PT AGITATED BECAUSE MONITOR IS BEEPING. REFUSES TO WEAR TELE OR BP CUFF. THIS RN EDUCATED PT ON WHY HE IS ON THE MONITOR. PT STILL ADAMANT THAT EVERYTHING BE TAKEN OFF. WILL CONTINUE TO MONITOR.
[2018-11-07 03:56] LABS: BASOPHILS % (AUTO) 0 % (0-10); EOSINOPHILS # (AUTO) 0.1 10^3/uL (0.0-0.3); EOSINOPHILS % (AUTO) 1 % (0-10); HEMATOCRIT 45 % (40-54); HEMOGLOBIN 14.9 G/DL (13.3-17.7); LYMPHOCYTES # (AUTO) 3.1 X 10^3 (1.0-4.0); LYMPHOCYTES % (AUTO) 25 % (12-44); MEAN CORPUSCULAR HEMOGLOBIN 31 PG (25-34); MEAN CORPUSCULAR HGB CONC 33 G/DL (32-36); MEAN CORPUSCULAR VOLUME 96 FL (80-99); MEAN PLATELET VOLUME 10.8 FL (7.4-10.4); MONOCYTES # (AUTO) 1.1 X 10^3 (0.0-1.0); MONOCYTES % (AUTO) 9 % (0-12); NEUTROPHILS # (AUTO) 8.1 X 10^3 (1.8-7.8); NEUTROPHILS % (AUTO) 65 % (42-75); PLATELET COUNT 235 10^3/uL (130-400); RED CELL DISTRIBUTION WIDTH 14.4 % (10.0-14.5); WHITE BLOOD COUNT 12.4 10^3/uL (4.3-11.0)
[2018-11-07 04:00] VITALS: BP 93/59
[2018-11-07 04:12] LABS: BUN/CREATININE RATIO 9; CALCIUM 8.8 MG/DL (8.5-10.1); CARBON DIOXIDE 24 MMOL/L (21-32); CHLORIDE 105 MMOL/L (98-107); CHOLESTEROL 171 MG/DL (< 200); GFR ESTIMATED > 60; GLUCOSE 104 MG/DL (70-105); HDL CHOLESTEROL 26 MG/DL (40-60); PHOSPHORUS 2.9 MG/DL (2.3-4.7); SODIUM 136 MMOL/L (135-145); TRIGLYCERIDES 117 MG/DL (<150); VLDL CHOLESTEROL 23 MG/DL (5-40)
[2018-11-07] MEDS: POTASSIUM CL 10MEQ/50ML IVPB 50 ML IV SCH (05:08)
[2018-11-07] MEDS: MAGNESIUM 1 GM/100 ML IVPB 100 ML IV SCH (05:08)
[2018-11-07] MEDS: KCL 20 MEQ TAB (K-DUR) PO SCH (05:08)
--- NOTE | 2018-11-07 07:59 | Discharge Inst-Post CATH ---
Discharge Inst-CATH/EP Post Cardiac Cath/EP D/C Inst CARDIAC CATH DISCHARGE INSTRUCTIONS *Hold Metformin for 48 hours post heart cath. ACTIVITY * Go Home directly and rest. * Limit activity of the leg (or wrist if it was used) for 7 days including aerobics, swimming, jogging, bicycling, etc. * Restrict stair-climbing for 7 days if possible, if not, climb up with your non -cath leg, then bring together on the same step. * Avoid lifting, pushing, pulling or excessive movement of the affected extremity for 7 days. * Customary sexual activity may be resumed after 2 days-use caution not to use a position that strains or causes pain to the affected extremity. * No driving for 24 hours. * NO SMOKING. * Avoid straining for bowel movements for 7 days. * Gentle walking on level ground is allowed. * Returning to work will depend on the type of procedure and the results. Your doctor will discuss this with you. CALL YOUR DOCTOR FOR ANY OF THE FOLLOWING: *If bleeding from the puncture site occurs- Apply gentle pressure to site with clean cloth and call your doctor or EMS. * If a knot or lump forms under the skin, increases in size, or causes pain. * If bruising appears to be worsening or moving further down your leg instead of disappearing. * Temperature above 101 F. CARE OF YOUR GROIN INCISION; * Bruising or purple discoloration of the skin near the puncture site is common. * You may shower only, no bathtub bathing for 5 days. Be careful to avoid slipping as your leg may feel stiff. * If a closure device was used on your femoral artery, please see the attached guide regarding care of the device and your leg. * Leave the dressing on, until removed by office staff. CARE OF YOUR WRIST INCISION; * Bruising or purple discoloration of the skin near the puncture site is common. * You may shower. * DO NOT submerge wrist. * Leave dressing on, until removed by office staff.. TRINH FRANK MD Nov 07, 2018 07:59
--- NOTE | 2018-11-07 08:01 | Cardiology Progress Note ---
Subjective Date Seen by Provider: Nov 07, 2018 Time Seen by Provider: 07:59 Subjective/Events-last exam patient is sitting in bed, asking to go home, denied any chest pain, groin is healing well Review of Systems General: No Chills, No Night Sweats, No Fatigue, No Malaise, No Appetite, No Other HEENT: No Head Aches, No Visual Changes, No Eye Pain, No Ear Pain, No Dysphasia , No Sinus Congestion, No Post Nasal Drip, No Sore Throat, No Other Pulmonary: No Dyspnea, No Cough, No Pleuritic Chest Pain, No Other Cardiovascular: No: Chest Pain, Palpitations, Orthopnea, Paroxysmal Noc. Dyspnea, Edema, Lt Headedness, Other Objective-Cardiology Exam Last Set of Vital Signs Vital Signs 11/07/18 04:00 Temp 97.9 Pulse 64 Resp 16 B/P (MAP) 93/59 (70) Pulse Ox 97 O2 Delivery Room Air Capillary Refill : Less Than 3 Seconds I&O Intake and Output 11/07/18 00:00 Intake Total 1300 ml Output Total 1750 ml Balance -450 ml Intake Oral 300 ml IV Total 1000 ml Output Urine Total 1750 ml # Voids 3 Daily Weight Change No General: Alert, Oriented X3, Cooperative HEENT: Atraumatic, PERRLA Neck: Supple, No JVD, No Thyromegaly Lungs: Clear to Auscultation, Normal Air Movement Heart: Regular Rate, Normal S1, Normal S2, No Murmurs Abdomen: Normal Bowel Sounds, Soft, No Tenderness, No Hepatosplenomegaly, No Masses Extremities: No Clubbing, No Cyanosis, No Edema, Normal Pulses, No Tenderness/ Swelling Skin: No Rashes, No Breakdown, No Significant Lesion Neuro: Normal Gait, Normal Speech, Strength at 5/5 X4 Ext, Normal Tone, Sensation Intact Psych/Mental Status: Mental Status NL, Mood NL Results Lab Laboratory Tests 11/07/18 03:40 A/P-Cardiology Admission Diagnosis ST elevation myocardial infarctions Coronary artery disease Hypertension Hyperlipidemia Assessment/Plan acute ST elevation myocardial infarction, status post emergency angioplasty and stenting to the LAD, educated in length about his condition, emphasized compliance with medication Hyperlipidemia, started on Lipitor Hypertension, monitor blood pressure Tobaccoism, educated on smoking cessatio Clinical Quality Measures AMI/AHF: ASA po Prior to arrival: No DVT/VTE Risk/Contraindication: Risk Factor Score Per Nursin RFS Level Per Nursing on Admit: 2=Moderate TRINH FRANK MD Nov 07, 2018 08:01
[2018-11-07] MEDS: lisINopril 5 MG (PRINIVIL) TABLET PO SCH (08:15)
[2018-11-07] MEDS: CLOPIDOGREL 75 MG (PLAVIX) TABLET PO SCH (08:15)
[2018-11-07] MEDS: ASPIRIN 81 MG CHEW (CHILDREN'S ASA) PO SCH (08:15)
== END 2018-11-07 08:50 | disposition home or self-care (01) | DRG 247 ==
LOC: EDUNIT# 00:10 → ER 00:12 → CATH 01:10 → ICU 04:37
PROVIDERS: ADMIT Internal Medicine Cardiovascular Disease; ATTEND Internal Medicine Cardiovascular Disease
PROC: 027034Z Dilation of Coronary Artery, One Artery with Drug-eluting Intraluminal Device, Percutaneous Approach (ICD-10-PCS; principal; 2018-11-06)
PROC: 4A023N7 Measurement of Cardiac Sampling and Pressure, Left Heart, Percutaneous Approach (ICD-10-PCS; 2018-11-06)
PROC: B2111ZZ Fluoroscopy of Multiple Coronary Arteries using Low Osmolar Contrast (ICD-10-PCS; 2018-11-06)
PROC: B2151ZZ Fluoroscopy of Left Heart using Low Osmolar Contrast (ICD-10-PCS; 2018-11-06)
DX: I21.3 ST elevation (STEMI) myocardial infarction of unspecified site (principal); I25.10 Atherosclerotic heart disease of native coronary artery without angina pectoris; I10 Essential (primary) hypertension; F17.210 Nicotine dependence, cigarettes, uncomplicated; J44.9 Chronic obstructive pulmonary disease, unspecified; E78.5 Hyperlipidemia, unspecified
CPT/HCPCS: 36415; 71045; 80048; 80053; 80061; 80320; 80329; 82150; 82550; 82553; 83690; 83735; 83874; 83880; 84100; 84484; 85007; 85025; 85027; 85610; 85730; 87081; 93005; 93041; 93306; 93458

== ENCOUNTER → 2019-05-21 | Outpatient (CLI) | payer OTHER ==
[~2019-05-21] MED LIST changes: +ASPI-999 PO; +ATOR40TA PO; +CLOP75TA28 PO; +LISI-556 PO; +METO-387 PO
== END ==
LOC: CARD 11:05
PROVIDERS: ATTEND Nurse Practitioner Family
DX: I25.10 Atherosclerotic heart disease of native coronary artery without angina pectoris (principal); I77.89 Other specified disorders of arteries and arterioles; E78.5 Hyperlipidemia, unspecified; I25.5 Ischemic cardiomyopathy; I70.213 Atherosclerosis of native arteries of extremities with intermittent claudication, bilateral legs; Z72.0 Tobacco use
CPT/HCPCS: 93306

== ENCOUNTER 2020-01-12 17:27 | Inpatient (IN) | payer MEDICARE, OTHER ==
[~2020-01-12] VITALS: Ht 182.8 cm; Wt 110.5 kg
[2020-01-12] VITALS (10 sets, daily range): BP systolic 115–146; BP diastolic 75–94
[~2020-01-12 17:27] MED LIST changes: +ACHYD1T PO; -HYDR-3820 PO; -METO-387 PO; +MTP25TSR PO
[2020-01-12] MEDS ORDERED: ASPIRIN 81 MG CHEW (CHILDREN'S ASA) PO ONE (17:30)
--- OUTSIDE RECORDS SUMMARY | 2020-01-12 17:34 | XMS REPORT | CCD ---
Author Author Syd Simons D.O. Organization [facility] Address [address] [place] [address] Phone Care Team Providers Care Post Anesthesia Room Nurse Name Role Phone Martita Simons D.O., PP Unavailable CCM Unavailable Summary Purpose Interface Exchange Insurance Providers Payer name Policy type / Coverage type Covered republican ID Effective Begin Date Effective End Date [facility] Commercial Insurance [id number] Unknown Family history Brother Diagnosis Age At Onset No Family Disease Entered N/A Father Diagnosis Age At Onset No Family Disease Entered N/A Mother Diagnosis Age At Onset No Family Disease Entered N/A Social History Social History Element Codes Description Effective Dates Tobacco history SNOMED CT: 78712544 Current every day smoker 06/2012 Number of cigarettes/day Unknown 20 (One Pack) 012 Marital status Unknown 05/26/2010 Number of children Unknown 4 05/26/2010 Employment Unknown Currently unemployed 05/26/2010 Allergies, Adverse Reactions, Alerts Substance Reaction Codes Entered Date Inactivated Date Status * NO KNOWN DRUG ALLERGIES Unknown 05/26/2010 No Inactiv e Date Active * NO KNOWN ENVIRONMENTAL ALLERGIES Unknown 05/26/2010 N o Inactive Date Active * NO KNOWN FOOD ALLERGIES Unknown 05/26/2010 No Inactiv e Date Active Problems Condition Codes Effective Dates Condition Status Lipoma ICD-9: 214.9 ICD-10: D17.9 01/08/2020 Active Other intervertebral disc degeneration, lumbar region ICD-9: 722.52 ICD-10: M51.36 01/04/2017 Active COPD (chronic obstructive pulmonary disease) ICD-9: 49 6 ICD-10: J44.9 10/07/2019 Active Coronary artery disease ICD-9: 414.00 ICD-10: I25.10 12/25/2018 Active Mixed hyperlipidemia ICD-9: 272.4 ICD-10: E78.2 12/17/2013 Active Neuropathy of left foot ICD-9: 355.8 ICD-10: G57.92 10/07/2019 Active Cephalgia ICD-9: 784.0 ICD-10: R51 07/01/2019 Active Family history of brain aneurysm ICD-9: V17.1 ICD-10: Z82.49 07/01/2019 Active Bilateral primary osteoarthritis of knee ICD-9: 715.96 ICD-10: M17.0 05/01/2014 Active Nicotine dependence, unspecified, uncomplicated ICD-9: 305.1 ICD-10: F17.200 09/07/2016 Active Encounter for screening for malignant neoplasm of pros cruz ICD-9: V76.44 ICD-10: Z12.5 06/19/2018 Active Other fatigue ICD-9: 780.79 ICD-10: R53.83 06/19/2018 Active Pain in thoracic spine ICD-9: 724.1 ICD-10: M54.6 09/07/2016 Active Primary osteoarthritis, right wrist ICD-9: 715.93 ICD-10: M19.031 09/12/2016 Active Encounter for therapeutic drug level monitoring ICD-9: V58.83 ICD-10: Z51.81 04/24/2016 Active Pain in left knee ICD-9: 719.46 ICD-10: M25.562 12/17/2013 Active Pain in right knee ICD-9: 719.46 ICD-10: M25.561 12/17/2013 Active Pain in right wrist ICD-9: 719.43 ICD-10: M25.531 09/07/2016 Active Other synovitis and tenosynovitis, right hand ICD-9: 7 27.05 ICD-10: M65.841 08/31/2017 Active Primary osteoarthritis, right wrist ICD-9: 716.93 ICD-10: M19.031 08/31/2017 Active 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 ICD-9: 214.1 ICD-10: D17.1 07/18/2017 Active Other spondylosis with radiculopathy, cervical region ICD-9: 721.0 ICD-10: M47.22 07/18/2017 Active Cervicalgia ICD-9: 723.1 ICD-10: M54.2 01/04/2017 Active Other enthesopathies, not elsewhere classified ICD-9: 727.05 ICD-10: M77.8 09/12/2016 Active Encounter for general adult medical examination with a bnormal findings ICD-9: V70.0 ICD-10: Z00.01 09/09/2016 Active Chronic obstructive pulmonary disease with acute lower respiratory infection ICD-9: 496 ICD-10: J44.0 09/07/2016 Active Dorsalgia, unspecified ICD-9: 724.5 ICD-10: M54.9 05/01/2014 Active Lumbago with sciatica, right side ICD-9: 724.2 ICD-10: M54.41 12/08/2011 Active Acute bronchitis, unspecified ICD-9: 466.0 ICD-10: J20.9 12/04/2012 Active TOBACCO USE DISORDER ICD-9: 305.1 04/14/2015 Active Chronic back pain ICD-9: 724.5 05/01/2014 Active OSTEOARTH NOS-L/LEG ICD-9: 715.96 05/01/2014 Active ROUTINE MEDICAL EXAM ICD-9: V70.0 12/18/2013 Active COPD ICD-9: 496 12/17/2013 Active HYPERLIPIDEMIA NEC/NOS ICD-9: 272.4 12/17/2013 Active Knee pain ICD-9: 719.46 12/17/2013 Active Wrist pain ICD-9: 719.43 12/17/2013 Active COUGH ICD-9: 786.2 12/11/2012 Active BRONCHITIS, ACUTE ICD-9: 466.0 12/04/2012 Active COPD exacerbation ICD-9: 491.21 12/04/2012 Active DERMATITIS NOS ICD-9: 692.9 07/17/2012 Active PAIN, LOWER BACK ICD-9: 724.2 12/08/2011 Active Superficial venous thrombosis of arm ICD-9: 453.81 12/08/2011 Active Trigger finger, left ICD-9: 727.03 12/08/2011 Active Thoracic back pain ICD-9: 724.1 08/11/2011 Active Chronic Back Pain Unknown 05/26/2010 Active Hyperlipidemia Unknown 05/26/2010 Active Osteoarthritis Unknown 05/26/2010 Active Tobacco abuse Unknown 05/26/2010 Active Medications Medication Codes Instructions Start Date Stop Date Status Fill Instructions Fish Oil 1,000 mg (120 mg-180 mg) capsule RxNorm: 1 Caps ule(s) Oral QD 01/08/2020 No Stop Date Active Co Q-10 100 mg capsule RxNorm: 469764 1 Capsule(s) Oral QD 01/08/20 20 No Stop Date Active Zyrtec 10 mg tablet RxNorm: 9723190 1 Tablet(s) Oral QD 01/08/2020 No Stop Date Active hydrocodone 10 mg-acetaminophen 325 mg tablet RxNorm: 308829 1 Tablet(s) Oral Q6H as needed for pain 12/26/2019 12/26/2019 Inactive (Response to an electronic controlled substance refill request - RxReferenceNumber: [id number]|1|0|1) hydrocodone 10 mg-acetaminophen 325 mg tablet RxNorm: 964066 1 Tablet(s) Oral Q6H as needed for pain 11/25/2019 11/25/2019 Inactive (Response to an electronic controlled substance refill request - RxReferenceNumber: [id number]|1|0|1) metoprolol succinate ER 25 mg tablet,extended release 24 hr RxNorm: 333256 1 Tablet(s) Oral QD 10/28/2019 10/28/2019 Inactive hydrocodone 10 mg-acetaminophen 325 mg tablet RxNorm: 959797 1 Tablet(s) PO Q6H as needed for pain 10/24/2019 11/24/2019 Inactive (Response to an electronic controlled substance refill request - RxReferenceNumber: [id number]|1|0|1) hydrocodone 10 mg-acetaminophen 325 mg tablet RxNorm: 353520 1 Tablet(s) PO Q6H as needed for pain 09/26/2019 10/23/2019 Inactive (Response to an electronic controlled substance refill request - RxReferenceNumber: [id number]|1|0|1) hydrocodone 10 mg-acetaminophen 325 mg tablet RxNorm: 344955 1 Tablet(s) PO Q6H as needed for pain 08/26/2019 09/25/2019 Inactive (Response to an electronic controlled substance refill request - RxReferenceNumber: [id number]|1|0|1) hydrocodone 10 mg-acetaminophen 325 mg tablet RxNorm: 663336 1 Tablet(s) PO Q6H as needed for pain 07/25/2019 08/25/2019 Inactive (Response to an electronic controlled substance refill request - RxReferenceNumber: [id number]|1|0|1) hydrocodone 10 mg-acetaminophen 325 mg tablet RxNorm: 319774 1 Tablet(s) PO Q6H as needed for pain 06/26/2019 07/24/2019 Inactive (Response to an electronic controlled substance refill request - RxReferenceNumber: [id number]|1|0|1) hydrocodone 10 mg-acetaminophen 325 mg tablet RxNorm: 571932 1 Tablet(s) PO Q6H as needed for pain 05/28/2019 06/25/2019 Inactive (Response to an electronic controlled substance refill request - RxReferenceNumber: [id number]|1|0|1) hydrocodone 10 mg-acetaminophen 325 mg tablet RxNorm: 813018 1 Tablet(s) PO Q6H as needed for pain 02/25/2019 05/27/2019 Inactive (Response to an electronic controlled substance refill request - RxReferenceNumber: [id number]|1|0|1) hydrocodone 10 mg-acetaminophen 325 mg tablet RxNorm: 026866 1 Tablet(s) PO Q6H as needed for pain 11/26/2018 02/24/2019 Inactive (Response to an electronic controlled substance refill request - RxReferenceNumber: [id number]|1|0|1) hydrocodone 10 mg-acetaminophen 325 mg tablet RxNorm: 161079 1 Tablet(s) PO Q6H as needed for pain 10/30/2018 11/25/2018 Inactive (Response to an electronic controlled substance refill request - RxReferenceNumber: [id number]|1|0|1) hydrocodone 10 mg-acetaminophen 325 mg tablet RxNorm: 108365 1 Tablet(s) PO Q6H as needed for pain 09/26/2018 10/29/2018 Inactive (Response to an electronic controlled substance refill request - RxReferenceNumber: [id number]|1|0|1) hydrocodone 10 mg-acetaminophen 325 mg tablet RxNorm: 860607 1 Tablet(s) PO Q6H as needed for pain 08/30/2018 09/25/2018 Inactive (Response to an electronic controlled substance refill request - RxReferenceNumber: [id number]|1|0|1) hydrocodone 10 mg-acetaminophen 325 mg tablet RxNorm: 943529 1 Tablet(s) PO Q6H as needed for pain 08/01/2018 08/29/2018 Inactive (Response to an electronic controlled substance refill request - RxReferenceNumber: [id number]|1|0|1) hydrocodone 10 mg-acetaminophen 325 mg tablet RxNorm: 828038 1 Tablet(s) PO Q6H as needed for pain 07/04/2018 07/31/2018 Inactive (Response to an electronic controlled substance refill request - RxReferenceNumber: [id number]|1|0|1) hydrocodone 10 mg-acetaminophen 325 mg tablet RxNorm: 838765 1 Tablet(s) PO Q6H as needed for pain 05/31/2018 07/03/2018 Inactive (Response to an electronic controlled substance refill request - RxReferenceNumber: [id number]|1|0|1) hydrocodone 10 mg-acetaminophen 325 mg tablet RxNorm: 234063 1 Tablet(s) PO Q6H as needed for pain 05/01/2018 05/30/2018 Inactive (Response to an electronic controlled substance refill request - RxReferenceNumber: [id number]|1|0|1) hydrocodone 10 mg-acetaminophen 325 mg tablet RxNorm: 518062 1 Tablet(s) PO Q6H as needed for pain 04/03/2018 04/30/2018 Inactive (Response to an electronic controlled substance refill request - RxReferenceNumber: [id number]|1|0|1) hydrocodone 10 mg-acetaminophen 325 mg tablet RxNorm: 089454 1 Tablet(s) PO Q6H as needed for pain 02/26/2018 04/02/2018 Inactive (Response to an electronic controlled substance refill request - RxReferenceNumber: [id number]|1|0|1) clotrimazole-betamethasone 1 %-0.05 % topical cream RxNorm: 617235 TOP As Directed CALL IF NO IMPROVEMENT IN 2 WEEKS 01/30/2018 01/29/2018 Inact kole [SAVINGS FOR UNINSURED PATIENTS -- BIN:[id number], PCN: [id number], Group: [id number], ID# [id number], Process claim through [employer], for questions: . THIS IS NOT INSURANCE.] hydrocodone 10 mg-acetaminophen 325 mg tablet RxNorm: 598642 1 Tablet(s) PO Q6H as needed for pain 01/29/2018 02/25/2018 Inactive (Response to an electronic controlled substance refill request - RxReferenceNumber: [id number]|1|0|1) hydrocodone 10 mg-acetaminophen 325 mg tablet RxNorm: 581619 1 Tablet(s) PO Q6H as needed for pain 12/28/2017 01/28/2018 Inactive (Response to an electronic controlled substance refill request - RxReferenceNumber: [id number]|1|0|1) hydrocodone 10 mg-acetaminophen 325 mg tablet RxNorm: 041422 1 Tablet(s) PO Q6H as needed for pain 11/29/2017 12/27/2017 Inactive (Response to an electronic controlled substance refill request - RxReferenceNumber: [id number]|1|0|1) hydrocodone 10 mg-acetaminophen 325 mg tablet RxNorm: 164156 1 Tablet(s) PO Q6H as needed for pain 11/02/2017 11/28/2017 Inactive (Response to an electronic controlled substance refill request - RxReferenceNumber: [id number]|1|0|1) hydrocodone 10 mg-acetaminophen 325 mg tablet RxNorm: 722410 1 Tablet(s) PO Q6H as needed for pain 10/02/2017 11/01/2017 Inactive (Response to an electronic controlled substance refill request - RxReferenceNumber: [id number]|1|0|1) hydrocodone 10 mg-acetaminophen 325 mg tablet RxNorm: 849245 1 Tablet(s) PO Q6H as needed for pain 08/30/2017 10/01/2017 Inactive (Response to an electronic controlled substance refill request - RxReferenceNumber: [id number]|1|0|1) hydrocodone 10 mg-acetaminophen 325 mg tablet RxNorm: 976398 1 Tablet(s) PO Q6H as needed for pain 08/01/2017 08/29/2017 Inactive (Response to an electronic controlled substance refill request - RxReferenceNumber: [id number]|1|0|1) hydrocodone 10 mg-acetaminophen 325 mg tablet RxNorm: 845914 1 Tablet(s) PO Q6H as needed for pain 06/26/2017 07/31/2017 Inactive (Response to an electronic controlled substance refill request - RxReferenceNumber: [id number]|1|0|1) hydrocodone 10 mg-acetaminophen 325 mg tablet RxNorm: 817761 1 Tablet(s) PO Q6H as needed for pain 06/26/2017 06/30/2019 Inactive (Response to an electronic controlled substance refill request - RxReferenceNumber: [id number]|1|0|1) hydrocodone 10 mg-acetaminophen 325 mg tablet RxNorm: 997235 1 Tablet(s) PO Q6H as needed for pain 03/27/2017 06/25/2017 Inactive (Response to an electronic controlled substance refill request - RxReferenceNumber: [id number]|1|0|1) hydrocodone 10 mg-acetaminophen 325 mg tablet RxNorm: 239861 1 Tablet(s) PO Q6H as needed for pain 02/23/2017 03/26/2017 Inactive (Response to an electronic controlled substance refill request - RxReferenceNumber: [id number]|1|0|1) hydrocodone 10 mg-acetaminophen 325 mg tablet RxNorm: 014139 1 Tablet(s) PO Q6H as needed for pain 01/24/2017 02/22/2017 Inactive (Response to an electronic controlled substance refill request - RxReferenceNumber: [id number]|1|0|1) hydrocodone 10 mg-acetaminophen 325 mg tablet RxNorm: 645665 1 Tablet(s) PO Q6H as needed for pain 12/27/2016 06/30/2019 Inactive (Response to an electronic controlled substance refill request - RxReferenceNumber: [id number]|1|0|1) hydrocodone 10 mg-acetaminophen 325 mg tablet RxNorm: 142265 1 Tablet(s) PO Q6H as needed for pain 12/27/2016 01/23/2017 Inactive (Response to an electronic controlled substance refill request - RxReferenceNumber: [id number]|1|0|1) hydrocodone 10 mg-acetaminophen 325 mg tablet RxNorm: 381429 1 Tablet(s) PO Q6H as needed for pain 11/23/2016 12/26/2016 Inactive (Response to an electronic controlled substance refill request - RxReferenceNumber: [id number]|1|0|1) hydrocodone 10 mg-acetaminophen 325 mg tablet RxNorm: 740762 1 Tablet(s) PO Q6H as needed for pain 10/20/2016 11/22/2016 Inactive (Response to an electronic controlled substance refill request - RxReferenceNumber: [id number]|1|0|1) hydrocodone 10 mg-acetaminophen 325 mg tablet RxNorm: 234000 1 Tablet(s) PO Q6H as needed for pain 09/26/2016 10/19/2016 Inactive (Response to an electronic controlled substance refill request - RxReferenceNumber: [id number]|1|0|1) hydrocodone 10 mg-acetaminophen 325 mg tablet RxNorm: 604526 1 Tablet(s) PO Q6H as needed for pain 07/27/2016 09/25/2016 Inactive (Response to an electronic controlled substance refill request - RxReferenceNumber: [id number]|1|0|1) hydrocodone 10 mg-acetaminophen 325 mg tablet RxNorm: 326953 1 Tablet(s) PO Q6H as needed for pain 05/04/2016 07/26/2016 Inactive (Response to an electronic controlled substance refill request - RxReferenceNumber: [id number]|1|0|1) hydrocodone 10 mg-acetaminophen 325 mg tablet RxNorm: 697056 1 Tablet(s) PO Q6H as needed for pain 03/31/2016 05/03/2016 Inactive (Response to an electronic controlled substance refill request - RxReferenceNumber: [id number]|1|0|1) citalopram 10 mg tablet RxNorm: 945571 1 Tablet(s) PO QD 09/28/2015 0 09/27/2015 Inactive citalopram 10 mg tablet RxNorm: 396488 1 Tablet(s) PO QD 09/28/2015 0 09/06/2016 Inactive Wellbutrin SR 150 mg tablet,sustained-release RxNorm: 590651 1 Tablet(s) PO QAM 09/25/2015 09/06/2016 Inactive prednisone 20 mg tablet RxNorm: 465846 1 Tablet(s) PO T ID for 3 days then 1 po BID for 3 days then one daily for 3 days 08/31/2015 09/06/2016 Inactiv e cyclobenzaprine 10 mg tablet RxNorm: 871252 1 Tablet(s) PO TID as needed for muscle spasm 08/31/2015 07/17/2017 Inactive hydrocodone 10 mg-acetaminophen 325 mg tablet RxNorm: 576929 1 Tablet(s) PO Q6H as needed for pain 08/26/2015 03/30/2016 Inactive (Response to an electronic controlled substance refill request - RxReferenceNumber: [id number]|1|0|1) hydrocodone 10 mg-acetaminophen 325 mg tablet RxNorm: 066268 1 Tablet(s) PO Q6H as needed for pain 07/28/2015 08/25/2015 Inactive (Response to an electronic controlled substance refill request - RxReferenceNumber: [id number]|1|0|1) hydrocodone 10 mg-acetaminophen 325 mg tablet RxNorm: 849108 1 Tablet(s) PO Q6H as needed for pain 06/23/2015 07/27/2015 Inactive (Response to an electronic controlled substance refill request - RxReferenceNumber: [id number]|1|0|1) hydrocodone 10 mg-acetaminophen 325 mg tablet RxNorm: 486356 1 Tablet(s) PO Q6H as needed for pain 05/21/2015 06/22/2015 Inactive (Response to an electronic controlled substance refill request - RxReferenceNumber: [id number]|1|0|1) azithromycin 250 mg tablet RxNorm: 393892 2 Tablet(s) P O on day one, then one tablet on days 2 - 5 04/27/2015 08/30/2015 Inactive hydrocodone 10 mg-acetaminophen 325 mg tablet RxNorm: 427121 1 Tablet(s) PO Q6H as needed for pain 03/25/2015 05/20/2015 Inactive (Response to an electronic controlled substance refill request - RxReferenceNumber: [id number]|1|0|1) hydrocodone 10 mg-acetaminophen 325 mg tablet RxNorm: 682967 1 Tablet(s) PO Q6H as needed for pain 02/24/2015 03/24/2015 Inactive (Response to an electronic controlled substance refill request - RxReferenceNumber: [id number]|1|0|1) hydrocodone 10 mg-acetaminophen 325 mg tablet RxNorm: 461540 1 Tablet(s) PO Q6H as needed for pain 01/23/2015 02/23/2015 Inactive (Response to an electronic controlled substance refill request - RxReferenceNumber: [id number]|1|0|1) hydrocodone 10 mg-acetaminophen 325 mg tablet RxNorm: 958918 1 Tablet(s) PO Q6H as needed for pain 12/23/2014 01/22/2015 Inactive (Response to an electronic controlled substance refill request - RxReferenceNumber: [id number]|1|0|1) hydrocodone 10 mg-acetaminophen 325 mg tablet RxNorm: 840137 1 Tablet(s) PO Q6H as needed for pain 11/24/2014 12/22/2014 Inactive (Response to an electronic controlled substance refill request - RxReferenceNumber: [id number]|1|0|1) hydrocodone 10 mg-acetaminophen 325 mg tablet RxNorm: 120599 1 Tablet(s) PO Q6H as needed for pain 10/28/2014 11/23/2014 Inactive (Response to an electronic controlled substance refill request - RxReferenceNumber: [id number]|1|0|1) hydrocodone 10 mg-acetaminophen 325 mg tablet RxNorm: 333080 1 Tablet(s) PO Q6H as needed for pain 09/25/2014 10/27/2014 Inactive (Response to an electronic controlled substance refill request - RxReferenceNumber: [id number]|1|0|1) Lipitor 80 mg tablet RxNorm: 094727 1 Tablet(s) PO QHS 09/24/2014 Inactive hydrocodone 10 mg-acetaminophen 325 mg tablet RxNorm: 453797 1 Tablet(s) PO Q6H as needed for pain 07/30/2014 09/24/2014 Inactive (Response to an electronic controlled substance refill request - RxReferenceNumber: [id number]|1|0|1) hydrocodone 10 mg-acetaminophen 325 mg tablet RxNorm: 505792 1 Tablet(s) PO Q6H as needed for pain 05/27/2014 07/29/2014 Inactive (Response to an electronic controlled substance refill request - RxReferenceNumber: [id number]|1|0|1) clotrimazole-betamethasone 1 %-0.05 % topical cream RxNorm: 185168 TOP As Directed 05/01/2014 08/30/2015 Inactive [SAVINGS FOR UNI NSURED PATIENTS -- BIN:[id number], PCN: [id number], Group: [id number], ID# [id number], Process claim through [employer], for questions: . THIS IS NOT INSURANCE.] Lipitor 80 mg tablet RxNorm: 217285 1 Tablet(s) PO QHS 04/28/2014 Inactive hydrocodone 10 mg-acetaminophen 325 mg tablet RxNorm: 176076 1 Tablet(s) PO Q6H as needed for pain 04/28/2014 05/26/2014 Inactive (Response to an electronic controlled substance refill request - RxReferenceNumber: [id number]|1|0|1) hydrocodone 10 mg-acetaminophen 325 mg tablet RxNorm: 529798 1 Tablet(s) PO Q6H as needed for pain 03/27/2014 04/27/2014 Inactive (Response to an electronic controlled substance refill request - RxReferenceNumber: [id number]|1|0|1) hydrocodone 10 mg-acetaminophen 325 mg tablet RxNorm: 200062 1 Tablet(s) PO Q6H as needed for pain 12/20/2013 12/20/2013 Inactive (Appended: Co ntrolled substance eRx refill - RxReferenceNumber: [id number]|1|0|1) hydrocodone 10 mg-acetaminophen 325 mg tablet RxNorm: 208253 TAKE 1 TABLET BY MOUTH EVERY 6 HOURS NEEDED FOR PAIN 12/20/2013 01/12/2014 Inactive (Response to an electronic controlled substance refill request - RxReferenceNumber: [id number]|1|0|1) hydrocodone 10 mg-acetaminophen 325 mg tablet RxNorm: 893898 1 Tablet(s) PO Q6H as needed for pain 09/03/2013 12/19/2013 Inactive (Appended: Co ntrolled substance eRx refill - RxReferenceNumber: [id number]|1|0|1) hydrocodone 10 mg-acetaminophen 325 mg tablet RxNorm: 828788 Tablet(s) PO TAKE 1 TABLET BY MOUTH EVERY 6 HOURS NEEDED FOR PAIN 08/08/2013 09/03/2013 Inactive (Appended: Controlled substance eRx refill - RxReferenceNumber: [id number]|1|0|1) hydrocodone 10 mg-acetaminophen 325 mg tablet RxNorm: 708497 Tablet(s) PO TAKE 1 TABLET BY MOUTH EVERY 6 HOURS NEEDED FOR PAIN 07/11/2013 08/07/2013 Inactive (Appended: Controlled substance eRx refill - RxReferenceNumber: [id number]|1|0|1) hydrocodone 10 mg-acetaminophen 325 mg tablet RxNorm: 847603 2 Tablet(s) PO TAKE 1 TABLET BY MOUTH EVERY 6 HOURS NEEDED FOR PAIN 06/12/2013 3 Inactive (Appended: Controlled substance eRx ref ill - RxReferenceNumber: [id number]|1|0|1) hydrocodone 10 mg-acetaminophen 325 mg tablet RxNorm: 000464 2 1 Tablet(s) PO Q6H NEEDED FOR PAIN 05/15/2013 06/12/2013 Inactive (Appended: Co ntrolled substance eRx refill - RxReferenceNumber: [id number]|1|0|1) hydrocodone 10 mg-acetaminophen 325 mg tablet RxNorm: 020169 2 Tablet(s) PO TAKE 1 TO 2 TABLETS BY MOUTH EVERY 6 HOURS NEEDED FOR PAIN 04/18/2013 No Stop Date Active (Appended: Controlled substa nce eRx refill - RxReferenceNumber: [id number]|1|0|1) hydrocodone 10 mg-acetaminophen 325 mg tablet RxNorm: 172848 2 Tablet(s) PO TAKE 1 TO 2 TABLETS BY MOUTH EVERY 6 HOURS NEEDED FOR PAIN 03/19/2013 No Stop Date Active (Appended: Controlled substa nce eRx refill - RxReferenceNumber: [id number]|1|0|1) hydrocodone 10 mg-acetaminophen 325 mg tablet RxNorm: 588729 2 Tablet(s) PO TAKE 1 TO 2 TABLETS BY MOUTH EVERY 6 HOURS NEEDED FOR PAIN 02/06/2013 Inactive (Appended: Controlled substance eRx refi ll - RxReferenceNumber: [id number]|1|0|1) hydrocodone 10 mg-acetaminophen 325 mg tablet RxNorm: 797834 2 Tablet(s) PO TAKE 1 TO 2 TABLETS BY MOUTH EVERY 6 HOURS NEEDED FOR PAIN 01/08/201304/2013 Inactive (Appended: Controlled substance eRx ref ill - RxReferenceNumber: [id number]|1|0|1) Zithromax 250 mg tablet RxNorm: 027373 2 Tablet(s) PO QD 12/04/2012 0 12/10/2012 Inactive prednisone 20 mg tablet RxNorm: 687367 1 Tablet(s) PO BID 12/04/2012 12/10/2012 Inactive atorvastatin 40 mg tablet RxNorm: 407053 1 Tablet(s) PO QD 11/09/19 13 12/17/2013 Inactive hydrocodone 10 mg-acetaminophen 325 mg tablet RxNorm: 120357 2 Tablet(s) PO TAKE 1 TO 2 TABLETS BY MOUTH EVERY 6 HOURS NEEDED FOR PAIN 10/18/201205/2013 Inactive (Appended: Controlled substance eRx ref ill - RxReferenceNumber: [id number]|1|0|1) hydrocodone 10 mg-acetaminophen 325 mg tablet RxNorm: 843373 2 1-2 Tablet(s) PO Q6H as needed for pain 09/06/2012 10/18/2012 Inactive Lamisil 250 mg tablet RxNorm: 945170 1 Tablet(s) PO QD 08/14/2012 Inactive atorvastatin 40 mg tablet RxNorm: 825125 1 Tablet(s) PO QD 08/08/19 13 11/05/2012 Inactive prednisone 20 mg tablet RxNorm: 309097 1 Tablet(s) PO BID 07/17/2012 07/23/2012 Inactive Wellbutrin SR 150 mg tablet,extended release RxNorm: 582720 1 T ablet(s) PO BID 07/17/2012 08/13/2012 Inactive meloxicam 15 mg tablet RxNorm: 612629 1 Tablet(s) PO QD for pain 07/16/2012 Inactive atorvastatin 40 mg tablet RxNorm: 603444 1 Tablet(s) PO QD 06/27/2008/07/2012 Inactive hydrocodone-acetaminophen 10 mg-325 mg tablet RxNorm: 678468 2 1-2 Tablet(s) PO Q6H as needed for pain 05/23/2012 No Stop Date Active hydrocodone-acetaminophen 10 mg-325 mg tablet RxNorm: 439843 2 1-2 Tablet(s) PO Q6H as needed for pain 04/24/2012 No Stop Date Active hydrocodone-acetaminophen 10 mg-325 mg tablet RxNorm: 884571 2 1-2 Tablet(s) PO Q6H as needed for pain 02/08/2012 No Stop Date Active hydrocodone-acetaminophen 10 mg-325 mg Tab RxNorm: 0397497 1-2 Tablet(s) PO Q6H as needed for pain 01/02/2012 No Stop Date Active hydrocodone-acetaminophen 10 mg-325 mg Tab RxNorm: 4429600 1-2 Tablet(s) PO Q6H as needed for pain 11/29/2011 No Stop Date Active hydrocodone-acetaminophen 10 mg-325 mg Tab RxNorm: 3590762 1-2 Tablet(s) PO Q6H as needed for pain 10/24/2011 No Stop Date Active hydrocodone-acetaminophen 10 mg-325 mg Tab RxNorm: 6159280 1-2 Tablet(s) PO Q6H as needed for pain 10/07/2011 No Stop Date Active simvastatin 40 mg Tab RxNorm: 926857 1 Tablet(s) PO QHS 08/11/2011 Inactive Symbicort 160 mcg-4.5 mcg/actuation HFA aerosol inhaler RxNo rm: 8602632 2 INH QD No Start Date Active atorvastatin 40 mg tablet RxNorm: 406811 1 Tablet(s) PO QD No Start D ate Active aspirin 81 mg tablet RxNorm: 518149 1 Tablet(s) PO QD No Start Date Active Vitamin D3 2,000 unit tablet RxNorm: 847696 3 Tablet(s) PO No Start D ate Active lisinopril 5 mg tablet RxNorm: 039893 1 Tablet(s) PO QD No Start Date Active hydrocodone-acetaminophen 10 mg-325 mg Tab RxNorm: 9793321 1-2 Tablet(s) PO Q6H as needed for pain No Start Date 10/06/2011 Inactive clopidogrel 75 mg tablet RxNorm: 693885 1 Tablet(s) PO QD No Start Date 01/07/2020 Inactive Wellbutrin SR 150 mg tablet,sustained-release RxNorm: 067710 1 Tablet(s) PO QAM No Start Date 09/24/2015 Inactive metoprolol succinate ER 25 mg tablet,extended release 24 hr RxNorm: 800854 1 Tablet(s) PO QD No Start Date 10/27/2019 Inactive OxyContin 15 mg 12 hr Tab RxNorm: 6832636 1 Tablet(s) PO BID No Sta rt Date 08/10/2011 Inactive warfarin 5 mg Tab RxNorm: 891958 1 Tablet(s) PO QD No Start Date 03/01 Inactive albuterol sulfate 1.25 mg/3 mL Neb Solution RxNorm: 924204 1 Unit Dose INH prn wheezing, congestion, shortness of breath No Start Date 04/30/2014 Inacti ve azithromycin 250 mg tablet RxNorm: 333435 2 Tablet(s) P O on day one, then one tablet on days 2 - 5 No Start Date 04/26/2015 Inactive warfarin 10 mg Tab RxNorm: 358040 1 Tablet(s) PO QOD No Start Date Inactive Symbicort Inhl RxNorm: Inhalation No Start Date 12/16/2013 Inactive Trilipix 135 mg Cap RxNorm: 320018 1 Capsule(s) PO QD No Start Date 0 12/07/2011 Inactive Chantix Starting Month Box 0.5 mg (11)-1 mg (42) table ts in dose pack RxNorm: 708315 Tablet(s) PO as directed No Start Date 12/03/2012 Inactive clotrimazole-betamethasone 1 %-0.05 % topical cream RxNorm: 451433 TOP As Directed No Start Date 04/30/2014 Inactive nystatin-triamcinolone 100,000 unit/g-0.1 % Topical Cream Rx Norm: 2324658 Application TOP BID for 2-4weeks No Start Date 12/03/2012 Inactive Lovastatin 20 mg Tab RxNorm: 201256 1 Tablet(s) PO QHS No Start Date 08/10/2011 Inactive krill oil oral RxNorm: 75026 oral No Start Date 06/30/2019 Inacti ve warfarin 7.5 mg Tab RxNorm: 291870 1 Tablet(s) PO QOD No Start Date 1 09/16/2011 Inactive Lipitor 80 mg tablet RxNorm: 022763 1 Tablet(s) PO QHS No Start Date 04/27/2014 Inactive simvastatin 40 mg Tab RxNorm: 278530 1 Tablet(s) PO QHS No Start Da te 08/10/2011 Inactive Gemfibrozil 600 mg Tab RxNorm: 247542 1 Tablet(s) PO QHS No Start D ate 08/10/2011 Inactive Medication Administered No Medication Administered data Immunizations No Immunization data Results Observation Observation Code Item Item Code Result Date S [facility] Location COMPLETE BLOOD COUNT [id number] WBC 9.7 10e9/L 06/19/20 18 Unknown COMPLETE BLOOD COUNT [id number] RBC 5.35 10e12/L 2017 Unknown COMPLETE BLOOD COUNT [id number] HEMOGLOBIN 17.1 g/dL 06/19/20 18 Unknown COMPLETE BLOOD COUNT [id number] HEMATOCRIT 52.4 % 06/19/20 18 Unknown COMPLETE BLOOD COUNT 5422415 MCV 97.9 fL 8 Unknown COMPLETE BLOOD COUNT 4048419 MCH 32.0 pg 8 Unknown COMPLETE BLOOD COUNT 8772894 MCHC 32.6 g/dL 8 Unknown COMPLETE BLOOD COUNT 8191156 PLATELET COUNT 257 10e9/L Unknown COMPLETE BLOOD COUNT 8404406 Mean Plt Volume 11.2 fL Unknown COMPLETE BLOOD COUNT 8703314 Neut Auto 54.6 % 8 Unknown COMPLETE BLOOD COUNT 8289314 Lymph Auto 33.3 % 06/19/20 18 Unknown COMPLETE BLOOD COUNT 3637479 [place] Auto 9.1 % 8 Unknown COMPLETE BLOOD COUNT 2235437 RDW 14.4 % 8 Unknown COMPLETE BLOOD COUNT 0385322 Eos Auto 2.6 % 8 Unknown COMPLETE BLOOD COUNT 1253850 Baso Auto 0.4 % 8 Unknown COMPLETE BLOOD COUNT [id number] Neutrophil Abs 5.30 10e9/L Unknown COMPLETE BLOOD COUNT [id number] Lymphocyte Abs 3.23 10e9/L Unknown COMPLETE BLOOD COUNT [id number] Monocyte Abs 0.88 10e9/L 06/01 Unknown COMPLETE BLOOD COUNT 7667565 Eosinophil Abs 0.25 10e9/L Unknown COMPLETE BLOOD COUNT 8287513 RDW-SD 51.8 fL 8 Unknown COMPLETE BLOOD COUNT [id number] Basophil Abs 0.04 10e9/L 06/01 Unknown LIPID GROUP 63765 Cholesterol 222 mg/dL 06/19/2018 Unkno wn LIPID GROUP 99276 Triglyceride 111 mg/dL 06/19/2018 Unkn own LIPID GROUP 19679 HDL CHOLESTEROL 37 mg/dL 06/19/2018 U nknown LIPID GROUP 77864 Chol/HDL Ratio 6.00 ratio 06/19/2018 U nknown LIPID GROUP 37929 NON-HDL Chol 185 mg/dL 06/19/2018 Unkn own LIPID GROUP 59703 LDL Cholesterol 163 mg/dL 06/19/2018 U nknown VITAMIN B 12 01592 VITAMIN B12 532 pg/mL 06/19/2018 Unkn own THYROID STIMULATING HORMONE 28665 TSH 2.685 uIU/mL 06/19/2018 Unknown COMPREHENSIVE METABOLIC 42924 AST 15 U/L 2017 Unknown COMPREHENSIVE METABOLIC 42717 ALT 21 U/L 2017 Unknown COMPREHENSIVE METABOLIC 52206 BUN 16 mg/dL 2017 Unknown COMPREHENSIVE METABOLIC 16154 ALBUMIN 4.1 g/dL 2017 Unknown COMPREHENSIVE METABOLIC 02124 CHLORIDE 99 mmol/L 2017 Unknown COMPREHENSIVE METABOLIC 77796 Bili Total 0.4 mg/dL 06/19 Unknown COMPREHENSIVE METABOLIC 41359 ALK PHOS 43 U/L 2017 Unknown COMPREHENSIVE METABOLIC 81262 SODIUM 136 mmol/L 06/19 Unknown COMPREHENSIVE METABOLIC 54023 CREATININE 0.82 mg/dL 06/01 Unknown COMPREHENSIVE METABOLIC 68299 CALCIUM 9.5 mg/dL 2017 Unknown COMPREHENSIVE METABOLIC 72703 POTASSIUM 5.2 mmol/L 06/19 Unknown COMPREHENSIVE METABOLIC 18726 Total Protein 6.7 g/dL Unknown COMPREHENSIVE METABOLIC 46587 Glucose 81 mg/dL 2017 Unknown COMPREHENSIVE METABOLIC 96159 Bicarbonate 30 mmol/L 06/01 Unknown COMPREHENSIVE METABOLIC 77067 AGAP 7 mmol/L 2017 Unknown FREE T4 57449 T4 Free 0.85 ng/dL 06/19/2018 Unknown GFR CALC 3720764 GFR Non Afr Amr >60 mL/min 06/19/2018 Un known GFR CALC 6417545 GFR Afr Amr >60 mL/min 06/19/2018 Unknow n VITAMIN D TOTAL (25 HYDROXY) 53581 Vitamin D 25 OH 24.1 ng/mL 06/19/2018 Unknown PSA EQUIMOLAR TROY 59224 PSA Total 0.88 ng/mL 8 Unknown GFR CALC 1751332 GFR Non Afr Amr >60 mL/min 09/09/2016 Un known GFR CALC 3159368 GFR Afr Amr >60 mL/min 09/09/2016 Unknow n COMPLETE BLOOD COUNT 1316415 WBC 11.7 10e9/L 017 Unknown COMPLETE BLOOD COUNT 8989628 RBC 5.54 10e12/L 2016 Unknown COMPLETE BLOOD COUNT 5280700 HEMOGLOBIN 17.6 g/dL 09/09/19 17 Unknown COMPLETE BLOOD COUNT 5508080 HEMATOCRIT 52.3 % 09/09/19 17 Unknown COMPLETE BLOOD COUNT 4403056 MCV 94.4 fL 7 Unknown COMPLETE BLOOD COUNT 6093598 MCH 31.8 pg 7 Unknown COMPLETE BLOOD COUNT 0098738 MCHC 33.7 g/dL 7 Unknown COMPLETE BLOOD COUNT 9537557 PLATELET COUNT 259 10e9/L 04/2017 Unknown COMPLETE BLOOD COUNT 1035168 Mean Plt Volume 11.2 fL 04/2017 Unknown COMPLETE BLOOD COUNT 5227260 Neut Auto 53.6 % 7 Unknown COMPLETE BLOOD COUNT 7070538 Lymph Auto 36.2 % 09/09/19 17 Unknown COMPLETE BLOOD COUNT 9497536 [place] Auto 7.9 % 7 Unknown COMPLETE BLOOD COUNT 3264891 RDW 14.2 % 7 Unknown COMPLETE BLOOD COUNT 0298656 Eos Auto 2.1 % 7 Unknown COMPLETE BLOOD COUNT 5832644 Baso Auto 0.2 % 7 Unknown COMPLETE BLOOD COUNT 7085766 Neutrophil Abs 6.27 10e9/L Unknown COMPLETE BLOOD COUNT 5256125 Lymphocyte Abs 4.24 10e9/L Unknown COMPLETE BLOOD COUNT 4182864 Monocyte Abs 0.92 10e9/L 08/31 Unknown COMPLETE BLOOD COUNT 8965011 Eosinophil Abs 0.25 10e9/L Unknown COMPLETE BLOOD COUNT 2350306 RDW-SD 48.1 fL 7 Unknown COMPLETE BLOOD COUNT 1469962 Basophil Abs 0.02 10e9/L 08/31 Unknown COMPREHENSIVE METABOLIC 63672 AST 19 U/L 2016 Unknown COMPREHENSIVE METABOLIC 03869 ALT 25 U/L 2016 Unknown COMPREHENSIVE METABOLIC 13167 BUN 16 mg/dL 2016 Unknown COMPREHENSIVE METABOLIC 69300 ALBUMIN 4.8 g/dL 2016 Unknown COMPREHENSIVE METABOLIC 14896 CHLORIDE 100 mmol/L 09/09 Unknown COMPREHENSIVE METABOLIC 41794 Bili Total 0.7 mg/dL 09/09 Unknown COMPREHENSIVE METABOLIC 90071 ALK PHOS 50 U/L 2016 Unknown COMPREHENSIVE METABOLIC 82626 SODIUM 136 mmol/L 09/09 Unknown COMPREHENSIVE METABOLIC 39461 CREATININE 0.98 mg/dL 08/31 Unknown COMPREHENSIVE METABOLIC 79181 CALCIUM 9.8 mg/dL 2016 Unknown COMPREHENSIVE METABOLIC 43812 POTASSIUM 4.6 mmol/L 09/09 Unknown COMPREHENSIVE METABOLIC 00198 Total Protein 7.5 g/dL Unknown COMPREHENSIVE METABOLIC 37231 Glucose 104 mg/dL 2016 Unknown COMPREHENSIVE METABOLIC 27567 Bicarbonate 27 mmol/L 08/31 Unknown COMPREHENSIVE METABOLIC 45126 AGAP 9 mmol/L 2016 Unknown FREE T4 03101 T4 Free 1.04 ng/dL 09/09/2016 Unknown THYROID STIMULATING HORMONE 47495 TSH 1.618 uIU/mL 09/09/2016 Unknown LIPID GROUP 36155 Cholesterol 251 mg/dL 09/09/2016 Unkno wn LIPID GROUP 15551 Triglyceride 153 mg/dL 09/09/2016 Unkn own LIPID GROUP 18173 HDL CHOLESTEROL 33 mg/dL 09/09/2016 U nknown LIPID GROUP 88017 Chol/HDL Ratio 7.61 ratio 09/09/2016 U nknown LIPID GROUP 89808 NON-HDL Chol 218 mg/dL 09/09/2016 Unkn own LIPID GROUP 35388 LDL Cholesterol 187 mg/dL 09/09/2016 U nknown LIPID GROUP 99914 HDL TEST 39 MG/DL 09/15/2015 Unknown LIPID GROUP 14574 TRIG 106 MG/DL 09/15/2015 Unknown LIPID GROUP 96358 TEST LDL 152 MG/DL 09/15/2015 Unknown LIPID GROUP 34993 CHOL 212 MG/DL 09/15/2015 Unknown LIPID GROUP 16751 RCHOL/HDL 5.44 RATIO 09/15/2015 Unknow n LIPID GROUP 68436 NON-HDL CH 173 MG/DL 09/15/2015 Unknow n GFR CALC 7044699 GFR AA >60 ML/MIN 09/15/2015 Unknown GFR CALC 5118339 GFR NON-AA >60 ML/MIN 09/15/2015 Unknown COMPREHENSIVE METABOLIC 03369 AST 18 U/L 2015 Unknown COMPREHENSIVE METABOLIC 44712 ALT 28 IU/L 2015 Unknown COMPREHENSIVE METABOLIC 72038 BUN 14 MG/DL 2015 Unknown COMPREHENSIVE METABOLIC 31067 ALBUMIN 4.2 GM/DL 2015 Unknown COMPREHENSIVE METABOLIC 89815 CHLORIDE 101 MMOL/L 09/15 Unknown COMPREHENSIVE METABOLIC 34401 BILI TOT 0.6 MG/DL 2015 Unknown COMPREHENSIVE METABOLIC 01745 ALK PHOS 48 U/L 2015 Unknown COMPREHENSIVE METABOLIC 18468 SODIUM 135 MMOL/L 09/15 Unknown COMPREHENSIVE METABOLIC 49740 CREATININE 0.91 MG/DL 08/31 Unknown COMPREHENSIVE METABOLIC 03571 CALCIUM 9.2 MG/DL 2015 Unknown COMPREHENSIVE METABOLIC 16704 POTASSIUM 4.6 MMOL/L 09/15 Unknown COMPREHENSIVE METABOLIC 31347 PROT TOT 6.6 GM/DL 2015 Unknown COMPREHENSIVE METABOLIC 30558 Glucose 97 MG/DL 2015 Unknown COMPREHENSIVE METABOLIC 56463 BICARB 27 MMOL/L 2015 Unknown COMPREHENSIVE METABOLIC 15489 ANION GAP 7 MEQ/L 2015 Unknown LIPID GROUP 46706 HDL TEST 35 MG/DL 04/14/2015 Unknown LIPID GROUP 92203 TRIG 135 MG/DL 04/14/2015 Unknown LIPID GROUP 01281 TEST LDL 153 MG/DL 04/14/2015 Unknown LIPID GROUP 76874 CHOL 215 MG/DL 04/14/2015 Unknown LIPID GROUP 30106 RCHOL/HDL 6.14 RATIO 04/14/2015 Unknow n LIPID GROUP 82998 NON-HDL CH 180 MG/DL 04/14/2015 Unknow n GFR CALC 1803478 GFR AA >60 ML/MIN 04/14/2015 Unknown GFR CALC 4880781 GFR NON-AA >60 ML/MIN 04/14/2015 Unknown COMPREHENSIVE METABOLIC 87643 AST 23 U/L 2014 Unknown COMPREHENSIVE METABOLIC 01705 ALT 27 IU/L 2014 Unknown COMPREHENSIVE METABOLIC 25265 BUN 15 MG/DL 2014 Unknown COMPREHENSIVE METABOLIC 19509 ALBUMIN 4.2 GM/DL 2014 Unknown COMPREHENSIVE METABOLIC 02403 CHLORIDE 103 MMOL/L 04/14 Unknown COMPREHENSIVE METABOLIC 65474 BILI TOT 0.8 MG/DL 2014 Unknown COMPREHENSIVE METABOLIC 35992 ALK PHOS 50 U/L 2014 Unknown COMPREHENSIVE METABOLIC 30741 SODIUM 134 MMOL/L 04/14 Unknown COMPREHENSIVE METABOLIC 49671 CREATININE 0.93 MG/DL 03/31 Unknown COMPREHENSIVE METABOLIC 73569 CALCIUM 9.4 MG/DL 2014 Unknown COMPREHENSIVE METABOLIC 35037 POTASSIUM 4.4 MMOL/L 04/14 Unknown COMPREHENSIVE METABOLIC 28442 PROT TOT 6.8 GM/DL 2014 Unknown COMPREHENSIVE METABOLIC 95320 Glucose 101 MG/DL 2014 Unknown COMPREHENSIVE METABOLIC 50465 BICARB 25 MMOL/L 2014 Unknown COMPREHENSIVE METABOLIC 83927 ANION GAP 6 MEQ/L 2014 Unknown PSA EQUIMOLAR TROY 64410 PSA EQ 1.04 NG/ML 5 Unknown GFR CALC 9680597 GFR AA >60 ML/MIN 11/10/2014 Unknown GFR CALC 5236197 GFR NON-AA >60 ML/MIN 11/10/2014 Unknown LIPID GROUP 63459 HDL TEST 31 MG/DL 11/10/2014 Unknown LIPID GROUP 01545 TRIG 133 MG/DL 11/10/2014 Unknown LIPID GROUP 43619 TEST LDL 74 MG/DL 11/10/2014 Unknown LIPID GROUP 92618 CHOL 132 MG/DL 11/10/2014 Unknown LIPID GROUP 45709 RCHOL/HDL 4.26 RATIO 11/10/2014 Unknow n LIPID GROUP 17209 NON-HDL CH 101 MG/DL 11/10/2014 Unknow n COMPLETE BLOOD COUNT 8767246 WBC 10.2 10e9/L 015 Unknown COMPLETE BLOOD COUNT 6552648 RBC 5.01 10e12/L 2014 Unknown COMPLETE BLOOD COUNT 2176895 HGB 16.1 g/dL 5 Unknown COMPLETE BLOOD COUNT 8525031 HCT DET 48.1 % 5 Unknown COMPLETE BLOOD COUNT 9022573 MCV 96.0 fL 5 Unknown COMPLETE BLOOD COUNT 7470381 MCH 32.1 pg 5 Unknown COMPLETE BLOOD COUNT 1808446 MCHC 33.5 g/dL 5 Unknown COMPLETE BLOOD COUNT 9167708 PLT 248 10e9/L 11/11/19 15 Unknown COMPLETE BLOOD COUNT 2355944 MPV 11.4 fL 5 Unknown COMPLETE BLOOD COUNT 2069432 GIUSEPPE % 51.2 % 5 Unknown COMPLETE BLOOD COUNT 4096827 LY % 37.4 % 5 Unknown COMPLETE BLOOD COUNT 8694598 MON % 9.2 % 5 Unknown COMPLETE BLOOD COUNT 2763303 EOS % 2.0 % 5 Unknown COMPLETE BLOOD COUNT 2969022 BASO % 0.2 % 5 Unknown COMPLETE BLOOD COUNT 4258306 RDW 14.0 % 5 Unknown COMPLETE BLOOD COUNT 4884364 ABS GIUSEPPE 5.22 10e9/L 015 Unknown COMPLETE BLOOD COUNT 6945644 ABS LYMPH 3.81 10e9/L 015 Unknown COMPLETE BLOOD COUNT 4820786 ABS MONO 0.94 10e9/L 015 Unknown COMPLETE BLOOD COUNT 6414050 ABS EOS 0.20 10e9/L 015 Unknown COMPLETE BLOOD COUNT 2154955 ABS BASO 0.02 10e9/L 015 Unknown COMPLETE BLOOD COUNT 8909633 RDW-SD 47.8 fL 5 Unknown FREE T4 35254 FREE T4 0.92 NG/DL 11/10/2014 Unknown COMPREHENSIVE METABOLIC 59911 AST 18 U/L 2014 Unknown COMPREHENSIVE METABOLIC 52222 ALT 25 IU/L 2014 Unknown COMPREHENSIVE METABOLIC 99686 BUN 16 MG/DL 2014 Unknown COMPREHENSIVE METABOLIC 32011 ALBUMIN 4.5 GM/DL 2014 Unknown COMPREHENSIVE METABOLIC 67579 CHLORIDE 103 MMOL/L 11/10 Unknown COMPREHENSIVE METABOLIC 24601 BILI TOT 0.4 MG/DL 2014 Unknown COMPREHENSIVE METABOLIC 95320 ALK PHOS 53 U/L 2014 Unknown COMPREHENSIVE METABOLIC 74803 SODIUM 135 MMOL/L 11/10 Unknown COMPREHENSIVE METABOLIC 04695 CREATININE 0.97 MG/DL 10/29 Unknown COMPREHENSIVE METABOLIC 96731 CALCIUM 9.4 MG/DL 2014 Unknown COMPREHENSIVE METABOLIC 05571 POTASSIUM 4.4 MMOL/L 11/10 Unknown COMPREHENSIVE METABOLIC 99480 PROT TOT 6.9 GM/DL 2014 Unknown COMPREHENSIVE METABOLIC 07289 Glucose 91 MG/DL 2014 Unknown COMPREHENSIVE METABOLIC 23185 BICARB 26 MMOL/L 2014 Unknown COMPREHENSIVE METABOLIC 47641 ANION GAP 6 MEQ/L 2014 Unknown THYROID STIMULATING HORMONE 34954 TSH 3.791 uIU/ML 11/10/2014 Unknown LIPID GROUP 42444 HDL TEST 35 MG/DL 04/29/2014 Unknown LIPID GROUP 55443 TRIG 123 MG/DL 04/29/2014 Unknown LIPID GROUP 68722 TEST LDL 117 MG/DL 04/29/2014 Unknown LIPID GROUP 62348 CHOL 177 MG/DL 04/29/2014 Unknown LIPID GROUP 62904 RCHOL/HDL 5.06 RATIO 04/29/2014 Unknow n LIPID GROUP 60740 NON-HDL CH 142 MG/DL 04/29/2014 Unknow n COMPREHENSIVE METABOLIC 46456 AST 18 U/L 2013 Unknown COMPREHENSIVE METABOLIC 92405 ALT 29 IU/L 2013 Unknown COMPREHENSIVE METABOLIC 82077 BUN 19 MG/DL 2013 Unknown COMPREHENSIVE METABOLIC 09556 ALBUMIN 4.0 GM/DL 2013 Unknown COMPREHENSIVE METABOLIC 90987 CHLORIDE 106 MMOL/L 04/29 Unknown COMPREHENSIVE METABOLIC 70324 BILI TOT 0.4 MG/DL 2013 Unknown COMPREHENSIVE METABOLIC 27229 ALK PHOS 51 U/L 2013 Unknown COMPREHENSIVE METABOLIC 70941 SODIUM 138 MMOL/L 04/29 Unknown COMPREHENSIVE METABOLIC 74298 CREATININE 0.87 MG/DL 04/02 Unknown COMPREHENSIVE METABOLIC 83189 CALCIUM 9.4 MG/DL 2013 Unknown COMPREHENSIVE METABOLIC 87249 POTASSIUM 4.5 MMOL/L 04/29 Unknown COMPREHENSIVE METABOLIC 41214 PROT TOT 6.8 GM/DL 2013 Unknown COMPREHENSIVE METABOLIC 06984 Glucose 106 MG/DL 2013 Unknown COMPREHENSIVE METABOLIC 71834 BICARB 24 MMOL/L 2013 Unknown COMPREHENSIVE METABOLIC 72447 ANION GAP 8 MEQ/L 2013 Unknown GFR CALC 2008054 GFR AA >60 ML/MIN 04/29/2014 Unknown GFR CALC 1105993 GFR NON-AA >60 ML/MIN 04/29/2014 Unknown LIPID GROUP 44583 HDL TEST 30 MG/DL 12/18/2013 Unknown LIPID GROUP 00669 TRIG 128 MG/DL 12/18/2013 Unknown LIPID GROUP 59820 TEST LDL 166 MG/DL 12/18/2013 Unknown LIPID GROUP 08584 CHOL 222 MG/DL 12/18/2013 Unknown LIPID GROUP 03470 RCHOL/HDL 7.40 RATIO 12/18/2013 Unknow n GFR CALC 2906910 GFR AA >60 ML/MIN 12/18/2013 Unknown GFR CALC 0040197 GFR NON-AA >60 ML/MIN 12/18/2013 Unknown FREE T4 26890 FREE T4 1.07 NG/DL 12/18/2013 Unknown COMPLETE BLOOD COUNT 0908099 WBC 7.2 10e9/L 12/19/19 14 Unknown COMPLETE BLOOD COUNT 4488541 RBC 4.89 10e12/L 2013 Unknown COMPLETE BLOOD COUNT 5531277 HGB 15.5 g/dL 4 Unknown COMPLETE BLOOD COUNT 4636084 HCT DET 46.6 % 4 Unknown COMPLETE BLOOD COUNT 9682084 MCV 95.3 fL 4 Unknown COMPLETE BLOOD COUNT 5106683 MCH 31.7 pg 4 Unknown COMPLETE BLOOD COUNT 9435627 MCHC 33.3 g/dL 4 Unknown COMPLETE BLOOD COUNT 6378809 PLT 246 10e9/L 12/19/19 14 Unknown COMPLETE BLOOD COUNT 5760146 MPV 11.4 fL 4 Unknown COMPLETE BLOOD COUNT 6258842 GIUSEPPE % 48.6 % 4 Unknown COMPLETE BLOOD COUNT 0355295 LY % 37.4 % 4 Unknown COMPLETE BLOOD COUNT 7672027 MON % 10.5 % 4 Unknown COMPLETE BLOOD COUNT 5034171 EOS % 3.2 % 4 Unknown COMPLETE BLOOD COUNT 6494950 BASO % 0.3 % 4 Unknown COMPLETE BLOOD COUNT 4993552 RDW 13.6 % 4 Unknown COMPLETE BLOOD COUNT 7708195 ABS GIUSEPPE 3.50 10e9/L 014 Unknown COMPLETE BLOOD COUNT 0205946 ABS LYMPH 2.69 10e9/L 014 Unknown COMPLETE BLOOD COUNT 0792044 ABS MONO 0.76 10e9/L 014 Unknown COMPLETE BLOOD COUNT 2725923 ABS EOS 0.23 10e9/L 014 Unknown COMPLETE BLOOD COUNT 8160452 ABS BASO 0.02 10e9/L 014 Unknown COMPLETE BLOOD COUNT 2868110 RDW-SD 46.2 fL 4 Unknown COMPREHENSIVE METABOLIC 36269 AST 38 U/L 2013 Unknown COMPREHENSIVE METABOLIC 53650 ALT 33 IU/L 2013 Unknown COMPREHENSIVE METABOLIC 67439 BUN 15 MG/DL 2013 Unknown COMPREHENSIVE METABOLIC 40108 ALBUMIN 4.2 GM/DL 2013 Unknown COMPREHENSIVE METABOLIC 46241 CHLORIDE 103 MMOL/L 12/18 Unknown COMPREHENSIVE METABOLIC 43941 BILI TOT 0.6 MG/DL 2013 Unknown COMPREHENSIVE METABOLIC 01556 ALK PHOS 45 U/L 2013 Unknown COMPREHENSIVE METABOLIC 35544 SODIUM 136 MMOL/L 12/18 Unknown COMPREHENSIVE METABOLIC 24645 CREATININE 0.97 MG/DL 11/29 Unknown COMPREHENSIVE METABOLIC 79587 CALCIUM 9.2 MG/DL 2013 Unknown COMPREHENSIVE METABOLIC 39623 POTASSIUM 4.2 MMOL/L 12/18 Unknown COMPREHENSIVE METABOLIC 87167 PROT TOT 7.0 GM/DL 2013 Unknown COMPREHENSIVE METABOLIC 45864 Glucose 120 MG/DL 2013 Unknown COMPREHENSIVE METABOLIC 50157 BICARB 24 MMOL/L 2013 Unknown COMPREHENSIVE METABOLIC 73156 ANION GAP 9 MEQ/L 2013 Unknown THYROID STIMULATING HORMONE 15815 TSH 1.305 uIU/ML 12/18/2013 Unknown PSA EQUIMOLAR TROY 48084 PSA EQ 1.71 NG/ML 4 Unknown LIPID GROUP 16384 HDL TEST 29 MG/DL 07/17/2012 Unknown LIPID GROUP 57766 TRIG 155 MG/DL 07/17/2012 Unknown LIPID GROUP 99944 TEST LDL 105 MG/DL 07/17/2012 Unknown LIPID GROUP 47293 CHOL 165 MG/DL 07/17/2012 Unknown LIPID GROUP 68073 RCHOL/HDL 5.69 RATIO 07/17/2012 Unknow n GFR CALC 7818020 GFR AA >60 ML/MIN 07/17/2012 Unknown GFR CALC 8075881 GFR NON-AA >60 ML/MIN 07/17/2012 Unknown COMPREHENSIVE METABOLIC 19932 AST 19 U/L 2011 Unknown COMPREHENSIVE METABOLIC 77847 ALT 25 IU/L 2011 Unknown COMPREHENSIVE METABOLIC 08165 BUN 14 MG/DL 2011 Unknown COMPREHENSIVE METABOLIC 22514 ALBUMIN 4.4 GM/DL 2011 Unknown COMPREHENSIVE METABOLIC 37559 CHLORIDE 103 MMOL/L 07/17 Unknown COMPREHENSIVE METABOLIC 30480 BILI TOT 0.6 MG/DL 2011 Unknown COMPREHENSIVE METABOLIC 84025 ALK PHOS 53 U/L 2011 Unknown COMPREHENSIVE METABOLIC 64415 SODIUM 136 MMOL/L 07/17 Unknown COMPREHENSIVE METABOLIC 48244 CREATININE 0.97 MG/DL 06/30 Unknown COMPREHENSIVE METABOLIC 81271 CALCIUM 9.4 MG/DL 2011 Unknown COMPREHENSIVE METABOLIC 05650 POTASSIUM 4.3 MMOL/L 07/17 Unknown COMPREHENSIVE METABOLIC 70106 PROT TOT 6.9 GM/DL 2011 Unknown COMPREHENSIVE METABOLIC 39782 Glucose 102 MG/DL 2011 Unknown COMPREHENSIVE METABOLIC 15703 BICARB 27 MMOL/L 2011 Unknown COMPREHENSIVE METABOLIC 28363 ANION GAP 6 MEQ/L 2011 Unknown ERYTHROCYTE SEDIMENTATION RATE 92645 ESR 14 MM/HR 03/20/2012 Unknown LIPID GROUP 17067 HDL TEST 31 MG/DL 03/20/2012 Unknown LIPID GROUP 33597 TRIG 210 MG/DL 03/20/2012 Unknown LIPID GROUP 98813 TEST LDL 164 MG/DL 03/20/2012 Unknown LIPID GROUP 57303 CHOL 237 MG/DL 03/20/2012 Unknown LIPID GROUP 60955 RCHOL/HDL 7.65 RATIO 03/20/2012 Unknow n GFR CALC 9270417 GFR AA >60 ML/MIN 03/20/2012 Unknown GFR CALC 2287169 GFR NON-AA >60 ML/MIN 03/20/2012 Unknown C-REACTIVE PROTEIN (CRP) QUANT 78309 CRP 0.9 MG/DL 03/20/2012 Unknown COMPLETE BLOOD COUNT 49347 WBC 9.7 10e9/L 03/20/20 12 Unknown COMPLETE BLOOD COUNT 25477 RBC 5.14 10e12/L 2011 Unknown COMPLETE BLOOD COUNT 81340 HGB 15.5 g/dL 2 Unknown COMPLETE BLOOD COUNT 11778 HCT DET 46.9 % 2 Unknown COMPLETE BLOOD COUNT 00525 MCV 91.2 fL 2 Unknown COMPLETE BLOOD COUNT 26792 MCH 30.2 pg 2 Unknown COMPLETE BLOOD COUNT 29717 MCHC 33.0 g/dL 2 Unknown COMPLETE BLOOD COUNT 13163 PLT 280 10e9/L 03/20/20 12 Unknown COMPLETE BLOOD COUNT 47712 MPV 10.6 fL 2 Unknown COMPLETE BLOOD COUNT 15586 GIUSEPPE % 61.5 % 2 Unknown COMPLETE BLOOD COUNT 72498 LY % 26.5 % 2 Unknown COMPLETE BLOOD COUNT 75717 MON % 8.8 % 2 Unknown COMPLETE BLOOD COUNT 97914 EOS % 3.0 % 2 Unknown COMPLETE BLOOD COUNT 16247 BASO % 0.2 % 2 Unknown COMPLETE BLOOD COUNT 07099 RDW 15.3 % 2 Unknown COMPLETE BLOOD COUNT 82378 ABS GIUSEPPE 5.97 10e9/L 012 Unknown COMPLETE BLOOD COUNT 83337 ABS LYMPH 2.57 10e9/L 012 Unknown COMPLETE BLOOD COUNT 19258 ABS MONO 0.85 10e9/L 012 Unknown COMPLETE BLOOD COUNT 47141 ABS EOS 0.29 10e9/L 012 Unknown COMPLETE BLOOD COUNT 07297 ABS BASO 0.02 10e9/L 012 Unknown COMPLETE BLOOD COUNT 45093 RDW-SD 50.3 fL 2 Unknown COMPREHENSIVE METABOLIC 04807 AST 16 U/L 2011 Unknown COMPREHENSIVE METABOLIC 09592 ALT 21 IU/L 2011 Unknown COMPREHENSIVE METABOLIC 12167 BUN 15 MG/DL 2011 Unknown COMPREHENSIVE METABOLIC 44166 ALBUMIN 4.3 GM/DL 2011 Unknown COMPREHENSIVE METABOLIC 37928 CHLORIDE 102 MMOL/L 03/20 Unknown COMPREHENSIVE METABOLIC 79976 BILI TOT 0.5 MG/DL 2011 Unknown COMPREHENSIVE METABOLIC 55545 ALK PHOS 60 U/L 2011 Unknown COMPREHENSIVE METABOLIC 73895 SODIUM 135 MMOL/L 03/20 Unknown COMPREHENSIVE METABOLIC 25471 CREATININE 0.94 MG/DL 03/01 Unknown COMPREHENSIVE METABOLIC 48630 CALCIUM 9.0 MG/DL 2011 Unknown COMPREHENSIVE METABOLIC 24882 POTASSIUM 4.4 MMOL/L 03/20 Unknown COMPREHENSIVE METABOLIC 62200 PROT TOT 6.7 GM/DL 2011 Unknown COMPREHENSIVE METABOLIC 38405 Glucose 96 MG/DL 2011 Unknown COMPREHENSIVE METABOLIC 63107 BICARB 25 MMOL/L 2011 Unknown COMPREHENSIVE METABOLIC 61951 ANION GAP 8 MEQ/L 2011 [place] [address] PRO TIME 21.6 SEC 03/20/[place] [address] INR MCMC 1.8 03/20/2012 Unknow n Procedures Procedure Codes Date ROUTINE VENIPUNCTURE CPT-4: 20001 06/19/2018 ASSAY OF FREE THYROXINE CPT-4: 17628 06/19/2018 ASSAY THYROID STIM HORMONE CPT-4: 71507 06/19/2018 COMPREHEN METABOLIC PANEL CPT-4: 19113 06/19/2018 COMPLETE CBC W/AUTO DIFF WBC CPT-4: 99682 06/19/2018 LIPID PANEL CPT-4: 50942 06/19/2018 ASSAY OF PSA TOTAL CPT-4: 21876 06/19/2018 VITAMIN D TOTAL (25 HYDROXY) CPT-4: 12359 06/19/2018 VITAMIN B-12 CPT-4: 81983 06/19/2018 DEXAMETHASONE SODIUM PHOS CPT-4: J1100 08/31/2017 TRIAMCINOLONE ACET INJ NOS CPT-4: J3301 08/31/2017 DRAIN/INJECT JOINT/BURSA CPT-4: 18223 08/31/2017 ROUTINE VENIPUNCTURE CPT-4: 43385 08/01/2017 COMPREHEN METABOLIC PANEL CPT-4: 81688 08/01/2017 LIPID PANEL CPT-4: 82692 08/01/2017 DRAIN/INJECT JOINT/BURSA CPT-4: 62218 09/12/2016 TRIAMCINOLONE ACET INJ NOS CPT-4: J3301 09/12/2016 DEXAMETHASONE SODIUM PHOS CPT-4: J1100 09/12/2016 ROUTINE VENIPUNCTURE CPT-4: 84023 09/09/2016 ASSAY OF FREE THYROXINE CPT-4: 78559 09/09/2016 ASSAY THYROID STIM HORMONE CPT-4: 92638 09/09/2016 COMPREHEN METABOLIC PANEL CPT-4: 22726 09/09/2016 COMPLETE CBC W/AUTO DIFF WBC CPT-4: 66078 09/09/2016 LIPID PANEL CPT-4: 54967 09/09/2016 SPECIAL REPORTS OR FORMS CPT-4: 21887 08/05/2016 ROUTINE VENIPUNCTURE CPT-4: 80029 09/15/2015 COMPREHEN METABOLIC PANEL CPT-4: 66298 09/15/2015 LIPID PANEL CPT-4: 06008 09/15/2015 PRESCRIP TRANSMIT VIA ERX SY CPT-4: G8553 08/31/2015 ROUTINE VENIPUNCTURE CPT-4: 93072 04/14/2015 COMPREHEN METABOLIC PANEL CPT-4: 18755 04/14/2015 LIPID PANEL CPT-4: 04994 04/14/2015 ROUTINE VENIPUNCTURE CPT-4: 20071 11/10/2014 ASSAY OF FREE THYROXINE CPT-4: 67041 11/10/2014 ASSAY THYROID STIM HORMONE CPT-4: 66440 11/10/2014 COMPREHEN METABOLIC PANEL CPT-4: 08379 11/10/2014 COMPLETE CBC W/AUTO DIFF WBC CPT-4: 53840 11/10/2014 LIPID PANEL CPT-4: 99914 11/10/2014 ASSAY OF PSA TOTAL CPT-4: 54658 11/10/2014 ROUTINE VENIPUNCTURE CPT-4: 48846 04/29/2014 COMPREHEN METABOLIC PANEL CPT-4: 42884 04/29/2014 LIPID PANEL CPT-4: 94867 04/29/2014 ROUTINE VENIPUNCTURE CPT-4: 80752 12/18/2013 ASSAY OF FREE THYROXINE CPT-4: 21845 12/18/2013 ASSAY THYROID STIM HORMONE CPT-4: 64711 12/18/2013 COMPREHEN METABOLIC PANEL CPT-4: 67987 12/18/2013 COMPLETE CBC W/AUTO DIFF WBC CPT-4: 57264 12/18/2013 LIPID PANEL CPT-4: 16617 12/18/2013 ASSAY OF PSA TOTAL CPT-4: 42008 12/18/2013 ROUTINE VENIPUNCTURE CPT-4: 19286 07/17/2012 COMPREHEN METABOLIC PANEL CPT-4: 87185 07/17/2012 LIPID PANEL CPT-4: 69124 07/17/2012 ROUTINE VENIPUNCTURE CPT-4: 42987 03/20/2012 COMPLETE CBC W/AUTO DIFF WBC CPT-4: 21945 03/20/2012 RBC SED RATE AUTOMATED CPT-4: 71472 03/20/2012 C-REACTIVE PROTEIN CPT-4: 70245 03/20/2012 COMPREHEN METABOLIC PANEL CPT-4: 61490 03/20/2012 LIPID PANEL CPT-4: 84490 03/20/2012 PROTHROMBIN TIME CPT-4: 32193 03/20/2012 Vital Signs Date Vital 01/08/2020 Blood Pressure 1: 132/84 Code: 8480-6 BMI: 32.1 Code: 86778-1 Heart Rate 1: 56 bpm Height: 6'2" Respiratory Rate: 20 bpm SpO2: 94% Tempera ture: 36.6 (C) / 97.8 (F) Weight: 250 lbs 10/07/2019 Blood Pressure 1: 142/83 Code: 8480-6 BMI: 31.3 Code: 75758-4 Heart Rate 1: 80 bpm Height: 6'2" Respiratory Rate: 17 bpm SpO2: 99% Tempera ture: 36.7 (C) / 98.1 (F) Weight: 244 lbs 07/01/2019 Blood Pressure 1: 114/80 Code: 8480-6 BMI: 30.4 Code: 90094-6 Heart Rate 1: 72 bpm Height: 6'2" Respiratory Rate: 20 bpm SpO2: 96% Tempera ture: 36.8 (C) / 98.2 (F) Weight: 237 lbs 03/27/2019 Blood Pressure 1: 124/80 Code: 8480-6 Heart Rate 1: 72 bpm Respiratory Rate: 20 bpm SpO2: 95% Temperature: 36.8 (C) / 98.2 (F) We ight: 233 lbs 12/25/2018 Blood Pressure 1: 122/70 Code: 8480-6 Heart Rate 1: 68 bpm Respiratory Rate: 20 bpm SpO2: 95% Temperature: 37.0 (C) / 98.6 (F) We ight: 235 lbs 08/22/2018 Blood Pressure 1: 132/86 Code: 8480-6 Heart Rate 1: 68 bpm Respiratory Rate: 20 bpm SpO2: 93% Temperature: 36.7 (C) / 98.1 (F) 06/19/2018 Blood Pressure 1: 126/82 Code: 8480-6 BMI: 31.2 Code: 39850-3 Heart Rate 1: 84 bpm Height: 6'2" Respiratory Rate: 20 bpm SpO2: 94% Tempera ture: 37.0 (C) / 98.6 (F) Weight: 243 lbs 03/02/2018 Blood Pressure 1: 122/80 Code: 8480-6 BMI: 30.8 Code: 15231-2 Heart Rate 1: 74 bpm Height: 6'2" Respiratory Rate: 20 bpm SpO2: 95% Tempera ture: 37.1 (C) / 98.8 (F) Weight: 240 lbs 08/31/2017 Blood Pressure 1: 136/90 Code: 8480-6 Heart Rate 1: 76 bpm Respiratory Rate: 20 bpm Temperature: 36.7 (C) / 98.0 (F) Weight: 247 lbs 07/18/2017 Blood Pressure 1: 126/78 Code: 8480-6 BMI: 31.3 Code: 45365-5 Heart Rate 1: 72 bpm Height: 6'2" Respiratory Rate: 20 bpm SpO2: 94% Tempera ture: 37.0 (C) / 98.6 (F) Weight: 244 lbs 04/24/2017 Blood Pressure 1: 152/92 Code: 8480-6 BMI: 31.1 Code: 82916-2 Heart Rate 1: 74 bpm Height: 6'2" Respiratory Rate: 18 bpm SpO2: 98% Tempera ture: 35.9 (C) / 96.6 (F) Weight: 242 lbs 01/04/2017 Blood Pressure 1: 122/70 Code: 8480-6 BMI: 30.4 Code: 90645-7 Heart Rate 1: 88 bpm Height: 6'2" Respiratory Rate: 20 bpm SpO2: 96% Tempera ture: 36.6 (C) / 97.8 (F) Weight: 237 lbs 09/12/2016 Blood Pressure 1: 136/78 Code: 8480-6 Heart Rate 1: 82 bpm Respiratory Rate: 22 bpm SpO2: 94% Temperature: 36.4 (C) / 97.6 (F) We ight: 234 lbs 09/07/2016 Blood Pressure 1: 122/70 Code: 8480-6 BMI: 30.0 Code: 34638-3 Heart Rate 1: 88 bpm Height: 6'2" Respiratory Rate: 20 bpm SpO2: 94% Tempera ture: 36.6 (C) / 97.9 (F) Weight: 234 lbs 08/31/2015 Blood Pressure 1: 142/94 Code: 8480-6 BMI: 28.9 Code: 70987-4 Heart Rate 1: 92 bpm Height: 6'2" Respiratory Rate: 20 bpm Temperature: 36 .9 (C) / 98.5 (F) Weight: 225 lbs 04/14/2015 Blood Pressure 1: 126/80 Code: 8480-6 BMI: 28.0 Code: 89212-4 Heart Rate 1: 76 bpm Height: 6'2" Respiratory Rate: 20 bpm Temperature: 36 .6 (C) / 97.8 (F) Weight: 218 lbs 10/07/2014 Blood Pressure 1: 128/76 Code: 8480-6 BMI: 28.6 Code: 00433-5 Heart Rate 1: 84 bpm Height: 6'2" Respiratory Rate: 22 bpm Temperature: 36 .6 (C) / 97.9 (F) Weight: 223 lbs 05/01/2014 Blood Pressure 1: 126/68 Code: 8480-6 BMI: 28.2 Code: 54633-9 Heart Rate 1: 84 bpm Height: 6'2" Respiratory Rate: 20 bpm Temperature: 36 .8 (C) / 98.3 (F) Weight: 220 lbs 12/17/2013 Blood Pressure 1: 136/82 Code: 8480-6 BMI: 29.6 Code: 98748-6 Heart Rate 1: 76 bpm Height: 6'1" Respiratory Rate: 20 bpm Temperature: 36 .8 (C) / 98.2 (F) Weight: 224 lbs 12/11/2012 Blood Pressure 1: 122/86 Code: 8480-6 BMI: 30.5 Code: 53546-6 Heart Rate 1: 76 bpm Height: 6'1" Respiratory Rate: 20 bpm SpO2: 93% Tempera ture: 36.8 (C) / 98.2 (F) Weight: 231 lbs 12/04/2012 Blood Pressure 1: 124/86 Code: 8480-6 BMI: 30.5 Code: 56911-9 Heart Rate 1: 68 bpm Height: 6'1" Respiratory Rate: 20 bpm SpO2: 95% Tempera ture: 36.6 (C) / 97.8 (F) Weight: 231 lbs 08/14/2012 Blood Pressure 1: 126/70 Code: 8480-6 BMI: 29.4 Code: 21390-2 Heart Rate 1: 80 bpm Height: 6'1" Respiratory Rate: 20 bpm Temperature: 36 .8 (C) / 98.3 (F) Weight: 223 lbs 07/17/2012 Blood Pressure 1: 124/82 Code: 8480-6 BMI: 29.7 Code: 84790-8 Heart Rate 1: 80 bpm Height: 6'1" Respiratory Rate: 20 bpm Temperature: 36 .8 (C) / 98.2 (F) Weight: 225 lbs 03/20/2012 Blood Pressure 1: 124/78 Code: 8480-6 BMI: 29.3 Code: 49228-4 Heart Rate 1: 72 bpm Height: 6'1" Respiratory Rate: 20 bpm Temperature: 36 .6 (C) / 97.8 (F) Weight: 222 lbs 12/08/2011 Blood Pressure 1: 112/64 Code: 8480-6 BMI: 28.2 Code: 16181-7 Heart Rate 1: 78 bpm Height: 6'1" Temperature: 36.3 (C) / 97.4 (F) Weight: 214 lbs 08/11/2011 Blood Pressure 1: 128/70 Code: 8480-6 BMI: 27.6 Code: 30124-6 Heart Rate 1: 76 bpm Height: 6'1" Respiratory Rate: 20 bpm Temperature: 36 .9 (C) / 98.4 (F) Weight: 209 lbs 05/26/2010 Blood Pressure 1: 116/78 Code: 8480-6 Heart Rate 1: 80 bpm Temperature: 36.7 (C) / 98.0 (F) Weight: 224 lbs Functional Status No Functional Status data Reason For Visit Reason For Visit Effective Dates Notes follow up 01/08/2020 Medication Monitoring 10/07/2019 follow up 07/01/2019 follow up 03/27/2019 follow up 12/25/2018 Patient had 100% blo ckage to LAD and had stent placed 11-06-18 wrist pain 08/22/2018 follow up 06/19/2018 Medication Monitoring 03/02/2018 Medication Monitoring 02/01/2018 [facility] UA Performed wrist pain 08/31/2017 lab draw 08/01/2017 follow up 07/18/2017 follow up 04/24/2017 Last Medication Ealine toring Urine 01/06/2017 follow up 01/04/2017 follow up 09/12/2016 wrist injection lab draw 09/09/2016 well man exam (40-65 years) 09/07/2016 follow up 04/25/2016 Patient here for Med ication Monitoring lab draw 09/15/2015 follow up 08/31/2015 4mo fwup follow up 04/14/2015 lab draw 11/10/2014 back pain 10/07/2014 4 month pain evaluat ion follow up 05/01/2014 lab draw 04/29/2014 lab draw 12/18/2013 hyperlipidemia 12/17/2013 Refill hydrocodone follow up 12/11/2012 1wk fwup COPD w/exac 12/04/2012 Has been using lefto silvina symbicort follow up 08/14/2012 discuss recent labs skin lesion 07/17/2012 Wants to discuss oren ntix follow up 03/20/[address] Gallegos, caseyus s stopping the warfarin back pain 12/08/2011 ~generic 08/11/2011 Re-establishing visi t Yearly Checkup/Physical 05/26/2010 Establishing Vis it Encounters Encounter Performer Location Codes Date ([id number]) OFFICE/OUTPATIENT VISIT EST Diagnosis: Other intervertebral disc degeneration, 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] Diagnosis: Lipoma[ICD10: D17.9] Martita Black [facility] CPT-4: 05430 01/08/2020 ([id number]) OFFICE/OUTPATIENT VISIT EST Diagnosis: COPD (chronic obstructive pulmonary disease)[ICD10: J44.9] Diagnosis: Mixed hyperlipidemia[ICD10: E78.2] Diagnosis: Coronary artery disease[ICD10: I25.10] Diagnosis: 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: G57.92] Martita GARCIA [employer] [facility] CPT-4: 67267 10/07/2019 ([id number]) OFFICE/OUTPATIENT VISIT EST Diagnosis: Cephalgia[ICD10: R51] Diagnosis: Family history of brain aneurysm[ICD10: Z82.49] Diagnosis: Other intervertebral disc degeneration, 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] Martita José [employer] Sofia SIMONS [employer] CPT-4: 27598 07/01/2019 ([id number]) OFFICE/OUTPATIENT VISIT EST Diagnosis: Atherosclerotic heart disease of [place] coronary artery without angina pectoris[ICD10: I25.10] Diagnosis: Bilateral primary osteoarthritis of knee[ICD10: M17.0] Diagnosis: Nicotine dependence, unspecified, uncomplicated[ICD10: F17.200] Diagnosis: Mixed hyperlipidemia[ICD10: E78.2] Maritta RENTERIA [employer] CPT-4: 09907 03/27/2019 ([id number]) OFFICE/OUTPATIENT VISIT EST Diagnosis: Mixed hyperlipidemia[ICD10: E78.2] Diagnosis: Atherosclerotic heart disease of [place] coronary artery without angina pectoris[ICD10: I25.10] Diagnosis: Other intervertebral disc degeneration, 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] Martita MCGOVERN [employer] [facility] CPT-4: 85459 12/25/2018 ([id number]) OFFICE/OUTPATIENT VISIT EST Diagnosis: Mixed hyperlipidemia[ICD10: E78.2] Diagnosis: Other fatigue[ICD10: R53.83] Diagnosis: Encounter for screening for malignant neoplasm of prostate[ICD10: Z12.5] Diagnosis: Primary osteoarthritis, 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 [employer] CPT-4: 38546 03/02/2018 ([id number]) OFFICE/OUTPATIENT VISIT EST Diagnosis: Mixed hyperlipidemia[ICD10: E78.2] Martita RENTERIA [employer] [facility] CPT-4: 23255 08/01/2017 ([id number]) OFFICE/OUTPATIENT VISIT EST Diagnosis: Other spondylosis with radiculopathy, cervical region[ICD10: M47.22] Diagnosis: Pain in 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: M25.531] Diagnosis: Mixed hyperlipidemia[ICD10: E78.2] Diagnosis: 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] Martita SIMONS [employer] [facility] CPT-4: 9921 3 07/18/2017 ([id number]) OFFICE/OUTPATIENT VISIT EST Diagnosis: Other intervertebral disc degeneration, 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] Diagnosis: Cervicalgia[ICD10: M54.2] Martita YOUNG [employer] [facility] CPT-4: 90377 04/24/2017 ([id number]) OFFICE/OUTPATIENT VISIT EST Diagnosis: Cervicalgia[ICD10: M54.2] Diagnosis: Other intervertebral disc degeneration, 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] Diagnosis: Mixed hyperlipidemia[ICD10: E78.2] Martita Kristyn SIMONS [employer] CPT-4: 34646 01/04/2017 ([id number]) OFFICE/OUTPATIENT VISIT EST Diagnosis: Mixed hyperlipidemia[ICD10: E78.2] Diagnosis: Encounter for general adult medical examination with abnormal findings[ICD10: Z00.01] Martita SIMONS [employer] CPT-4: 01691 09/09/2016 ([id number]) PREV VISIT EST AGE 40-64 Diagnosis: Mixed hyperlipidemia[ICD10: E78.2] Diagnosis: Nicotine dependence, unspecified, uncomplicated[ICD10: F17.200] Diagnosis: Chronic obstructive pulmonary disease with acute lower respiratory infection[ICD10: J44.0] Diagnosis: Bilateral primary osteoarthritis of knee[ICD10: M17.0] Diagnosis: Pain in thoracic spine[ICD10: M54.6] Diagnosis: Pain in 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: M25.531] Diagnosis: Encounter for general adult medical examination with abnormal findings[ICD10: Z00.01] Martita José Migueljessiejoellen FERRARAMARTITA Sofia SIMONS [employer] CPT-4: 10980 09/07/2016 ([id number]) OFFICE/OUTPATIENT VISIT EST Diagnosis: Mixed hyperlipidemia[ICD10: E78.2] Martita SIMONS [employer] CPT-4: 21667 09/15/2015 ([id number]) OFFICE/OUTPATIENT VISIT EST Diagnosis: Acute bronchitis, unspecified[ICD10: J20.9] Diagnosis: Chronic obstructive pulmonary disease with acute lower respiratory infection[ICD10: J44.0] Diagnosis: Lumbago with sciatica, right side[ICD10: M54.41] Martita SIMONS DO [employer] CPT-4: 76958 08/31/2015 ([id number]) OFFICE/OUTPATIENT VISIT EST Diagnosis: HYPERLIPIDEMIA NEC/NOS[ICD9: 272.4] Diagnosis: TOBACCO USE DISORDER[ICD9: 305.1] Diagnosis: Osteoarthritis, knee[ICD9: 715.96] Diagnosis: Chronic back pain[ICD9: 724.5] Martita SIMONS DO [employer] CPT-4: 37308 04/14/2015 ([id number]) OFFICE/OUTPATIENT VISIT EST Diagnosis: HYPERLIPIDEMIA NEC/NOS[ICD9: 272.4] Diagnosis: COPD[ICD9: 496] Diagnosis: ROUTINE MEDICAL EXAM[ICD9: V70.0] Martita SIMONS DO [employer] CPT-4: 99855 11/10/2014 ([id number]) OFFICE/OUTPATIENT VISIT EST Diagnosis: Wrist pain[ICD9: 719.43] Diagnosis: Knee osteoarthritis[ICD9: 715.96] Diagnosis: Chronic back pain[ICD9: 724.5] Martita SIMONS DO [employer] CPT-4: 51992 10/07/2014 ([id number]) OFFICE/OUTPATIENT VISIT EST Diagnosis: HYPERLIPIDEMIA NEC/NOS[ICD9: 272.4] Diagnosis: Chronic back pain[ICD9: 724.5] Diagnosis: OSTEOARTH NOS-L/LEG[ICD9: 715.96] Martita SIMONS [employer] CPT-4: 40808 05/01/2014 ([id number]) OFFICE/OUTPATIENT VISIT EST Diagnosis: HYPERLIPIDEMIA NEC/NOS[ICD9: 272.4] Martita SIMONS [employer] [facility] CPT-4: 26370 04/29/2014 ([id number]) OFFICE/OUTPATIENT VISIT EST Diagnosis: ROUTINE MEDICAL EXAM[ICD9: V70.0] Diagnosis: HYPERLIPIDEMIA NEC/NOS[ICD9: 272.4] Martita SIMONS DO [facility] CPT-4: 53675 12/18/2013 OFFICE/OUTPATIENT VISIT EST Diagnosis: HYPERLIPIDEMIA NEC/NOS[ICD9: 272.4] Diagnosis: COPD[ICD9: 496] Diagnosis: Knee pain[ICD9: 719.46] Diagnosis: Wrist pain[ICD9: 719.43] Martita LAMAR [facility] CPT-4: 38801 12/17/2013 OFFICE/OUTPATIENT VISIT EST Diagnosis: COPD W/ ACUTE EXACERB[ICD9: 491.21] Diagnosis: COUGH[ICD9: 786.2] Martita SIMONS [employer] [facility] CPT-4: 95959 12/11/2012 ([id number]) OFFICE/OUTPATIENT VISIT EST Diagnosis: BRONCHITIS, ACUTE[ICD9: 466.0] Diagnosis: COPD exacerbation[ICD9: 491.21] Martita SIMONS DO [facility] CPT-4: 80659 12/04/2012 ([id number]) OFFICE/OUTPATIENT VISIT EST Diagnosis: DERMATITIS NOS[ICD9: 692.9] Diagnosis: TOBACCO USE DISORDER[ICD9: 305.1] Martita FERRARALIN Genaro SIMONS [employer] [facility] CPT-4: 34261 08/14/2012 ([id number]) OFFICE/OUTPATIENT VISIT EST Diagnosis: TOBACCO USE DISORDER[ICD9: 305.1] Diagnosis: PAIN, LOWER BACK[ICD9: 724.2] Diagnosis: PAIN IN THORACIC SPINE[ICD9: 724.1] Diagnosis: DERMATITIS NOS[ICD9: 692.9] Diagnosis: HYPERLIPIDEMIA NEC/NOS[ICD9: 272.4] Martita SIMONS [employer] CPT-4: 01760 07/17/2012 ([id number]) OFFICE/OUTPATIENT VISIT EST Diagnosis: HYPERLIPIDEMIA NEC/NOS[ICD9: 272.4] Diagnosis: OSTEOARTH NOS-L/LEG[ICD9: 715.96] Diagnosis: JOINT PAIN-L/LEG[ICD9: 719.46] Diagnosis: AC EMBL SUPRFCL UP EXT[ICD9: 453.81] Martita FISCHER Sofia AGUIRRENDJOELLEN [employer] CPT-4: 77149 03/20/2012 ([id number]) OFFICE/OUTPATIENT VISIT EST Diagnosis: PAIN, LOWER BACK[ICD9: 724.2] Diagnosis: Superficial venous thrombosis of arm[ICD9: 453.81] Diagnosis: Trigger finger, left[ICD9: 727.03] Martita RENTERIA SSohail [employer] CPT-4: 47420 12/08/2011 OFFICE/OUTPATIENT VISIT EST Diagnosis: Knee pain[ICD9: 719.46] Diagnosis: Knee osteoarthritis[ICD9: 715.96] Diagnosis: Thoracic back pain[ICD9: 724.1] Diagnosis: HYPERLIPIDEMIA NEC/NOS[ICD9: 272.4] Martita MOROCHO SSohail AGUIRRENDER [employer] CPT-4: 66794 08/11/2011 ([id number]) OFFICE/OUTPATIENT VISIT, NEW Martita HULL [facility] CPT-4: 63210 05/26/2010 Plan of Care Planned Activity Notes Codes Status Date Visit Diagnosis Plan: Other intervertebral disc degene ration, lumbar region Discussion: Stable on hydrocodone Follow Up: 3 months ICD-9 : 722.52 ICD-10 : M51.36 01/08/2020 Visit Diagnosis Plan: Lipoma Discussion: Will return t his fall for removal ICD-9 : 214.9 ICD-10 : D17.9 01/08/2020 Visit Diagnosis Plan: COPD (chronic obstructive pulmon jenn disease) Discussion: Smoking Cessation ICD-9 : 496 ICD-10 : J44.9 10/07/2019 Visit Diagnosis Plan: Mixed hyperlipidemia Discussion: Lipids next month with cardiology fwup Follow Up: 3 months ICD-9 : 272.4 ICD-10 : E78.2 10/07/2019 Appointment: [facility] [phone] [id number] MED[facility] REVIEW 10/07/2019 Visit Diagnosis Plan: Other intervertebral disc degene ration, lumbar region Discussion: Stable on hydrocodone Add Vitamin D3 2000u daily Follow Up: 3 months ICD-9 : 722.52 ICD-10 : M51.36 07/01/2019 Visit Diagnosis Plan: Cephalgia Discussion: Discussed CT angiogram to rule out aneurysm but patient defers due to cost ICD-9 : 784.0 ICD-10 : R51 07/01/2019 Appointment: Martita Simonstel: [address] [place], [place] [phone] MEDICATION REVIEW 07/01/2019 Visit Diagnosis Plan: Atherosclerotic he art disease of [place] coronary artery without angina pectoris Discussion: Discussed cardiac rehab vs p ulmonary rehab Follow Up: 3 months ICD-9 : 414.00 ICD-10 : I25.10 03/27/2019 Visit Diagnosis Plan: Nicotine dependence, unspecified , uncomplicated Discussion: Smoking cessation ICD-9 : 305.1 ICD-10 : F17.200 03/27/2019 Visit Diagnosis Plan: Mixed hyperlipidemia Discussion: Had lab done in December with Cardiology ICD-9 : 272.4 ICD-10 : E78.2 03/27/2019 Appointment: Martita Simonstel: [address] [place], [place] [phone] MEDICATION REVIEW 03/27/2019 Visit Diagnosis Plan: Other intervertebral disc degene ration, lumbar region Discussion: Stable on hydrocodone UDS done Follow Up: 3 months ICD-9 : 722.52 ICD-10 : M51.36 12/25/2018 Visit Diagnosis Plan: Atherosclerotic he art disease of [place] coronary artery without angina pectoris Discussion: Smoking Cessation Continue c urrent meds and fwup with cardiology ICD-9 : 414.00 ICD-10 : I25.10 12/25/2018 Appointment: Martita Simonstel: [address] [place], [place] [phone] MEDICATION REVIEW 12/25/2018 Appointment: Martita Simonstel: [address] [place], [place] [phone] OFFICE SURGERY 08/22/2018 Visit Diagnosis Plan: Pain in thoracic spine Discussio n: Towel and band stretches Topical biofreeze See chiropractor ICD-9 : 724.1 ICD-10 : M54.6 06/19/2018 Visit Diagnosis Plan: Other fatigue Discussion: Check CBC, TSH, Free T4 ICD-9 : 780.79 ICD-10 : R53.83 06/19/2018 Visit Diagnosis Plan: Mixed hyperlipidemia Discussion: Check CMP, lipids Follow Up: 3 months ICD-9 : 272.4 ICD-10 : E78.2 06/19/2018 Visit Diagnosis Plan: Primary osteoarthritis, right wr ist Discussion: Stable ICD-9 : 715.93 ICD-10 : M19.031 06/19/2018 Appointment: Martita Simons WPtel: [address] [place] [address] MEDICATION REVIEW 06/19/2018 Appointment: Martita Simons WPtel: [address] [place], [place] [phone] US CANCELED 06/05/2018 Appointment: Martita Simons WPtel: [address] [place], [place] [phone] US CANCELED 05/08/2018 Visit Diagnosis Plan: Pain in right wrist Discussion: stable with current medications. follow up in 4 months or sooner if anything changes. continue with voltaren gel as needed as well. ICD-9 : 719.43 ICD-10 : M25.531 03/02/2018 Visit Diagnosis Plan: Pain in right knee Discussion: s ee other plan ICD-9 : 719.46 ICD-10 : M25.561 03/02/2018 Visit Diagnosis Plan: Encounter for therapeutic drug l evel monitoring Discussion: up to date on [facility] drug screen. ICD-9 : V58.83 ICD-10 : Z51.81 03/02/2018 Visit Diagnosis Plan: Pain in left knee Discussion: se e other plan ICD-9 : 719.46 ICD-10 : M25.562 03/02/2018 Appointment: Marian Juares [address] [place] [address] MEDICATION REVIEW 03/02/2018 Patient Education: Patient Medication Summary Completed 03/02/2018 Appointment: Martita Simons WPtel: [address] [place] [address] UA 02/01/2018 Patient Education: Patient Medication Summary Completed 02/01/2018 Visit Diagnosis Plan: Other synovitis and tenosynoviti s, right hand Discussion: Right wrist cleansed with alcohol and betadine and injected laterally with 1cc 1% lidocaine with 20mg kenalog and 2mg dexamethasone, tolerated well with no complications, neosporin and bandage applied ICD-9 : 727.05 ICD-10 : M65.841 08/31/2017 Appointment: Martita Simons WPtel: [address] [place] [address] ACUTE ILLNESS 08/31/2017 Patient Education: Patient Medication Summary Completed 08/31/2017 Appointment: Martita Simons WPtel: [address] [place] [address] LAB 08/01/2017 Patient Education: Patient Medication Summary Completed 08/01/2017 Visit Diagnosis Plan: 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 Discussion: Will need to be surgically r emoved ICD-9 : 214.1 ICD-10 : D17.1 07/18/2017 Visit Diagnosis Plan: Pain in right wrist Discussion: Discussed repat injection--patient inquired ICD-9 : 719.43 ICD-10 : M25.531 07/18/2017 Visit Diagnosis Plan: Other spondylosis with radiculop athy, cervical region Discussion: If worsens then next step would be seeing surgeon and possible epidural Follow Up: 3 months ICD-9 : 721.0 ICD-10 : M47.22 07/18/2017 Visit Diagnosis Plan: Mixed hyperlipidemia Discussion: Check CMP, Lipids but needs to be fasting ICD-9 : 272.4 ICD-10 : E78.2 07/18/2017 Appointment: Martita Simons WPtel: [address] [place], [place] [phone] MEDICATION REVIEW 07/18/2017 Patient Education: Patient Medication Summary Completed 07/18/2017 Visit Diagnosis Plan: Other intervertebral disc degene ration, lumbar region Discussion: Add PT For lumbar spine ICD-9 : 722.52 ICD-10 : M51.36 04/24/2017 Visit Diagnosis Plan: Cervicalgia Discussion: Continue PT then fwup after done with PT ICD-9 : 723.1 ICD-10 : M54.2 04/24/2017 Appointment: Martita Simons WPtel: [address] [place], [place] [phone] [place] MEDICATION REVIEW 04/24/2017 Patient Education: Patient Medication Summary Completed 04/24/2017 Patient Education: Patient Medication Summary Completed 03/22/2017 Care Plan: MRI NECK SPINE W/O DYE LOINC : 01546-3 Pending 03/22/2017 Visit Diagnosis Plan: Mixed hyperlipidemia Discussion: Patient has stopped smoking Will continue with lifestyle change and check lipids with fwup in 3mos ICD-9 : 272.4 ICD-10 : E78.2 01/04/2017 Visit Diagnosis Plan: Other intervertebral disc degene ration, lumbar region Discussion: Continue hydrocodone at current dose UDS monitoring Lock up pain meds Follow Up: 3 months ICD-9 : 722.52 ICD-10 : M51.36 01/04/2017 Visit Diagnosis Plan: Cervicalgia Discussion: Daily st retches/Traction ICD-9 : 723.1 ICD-10 : M54.2 01/04/2017 Appointment: Martita Simons WPtel: [address] [place], [place] [phone] [place] 01/03 lm`sl 01/03-Confirmed MEDICATION REVIEW 01/04/2017 Patient Education: Patient Medication Summary Completed 01/04/2017 Visit Diagnosis Plan: Other enthesopathies, not elsewh ere classified Discussion: Right wrist injection as above ICD-9 : 727.05 ICD-10 : M77.8 09/12/2016 Visit Diagnosis Plan: Mixed hyperlipidemia Discussion: Lab discussed Restart lipitor/lifestyle change ICD-9 : 272.4 ICD-10 : E78.2 09/12/2016 Appointment: Martita Simons WPtel: [address] [place], [place] [phone] [place] 09/12 confirmed `sl INJECTION 09/12/2016 Patient Education: Patient Medication Summary Completed 09/12/2016 Appointment: Martita Simons WPtel: [address] [place], [place] [phone] [place] LAB 09/09/2016 Patient Education: Patient Medication Summary Completed 09/09/2016 Visit Diagnosis Plan: Pain in right wrist Discussion: Will return for wrist injection ICD-9 : 719.43 ICD-10 : M25.531 09/07/2016 Visit Diagnosis Plan: Chronic obstructiv e pulmonary disease with acute lower respiratory infection Discussion: Smoking Cessation Symbicort Check CXR ICD-9 : 496 ICD-10 : J44.0 09/07/2016 Visit Diagnosis Plan: Encounter for gene [facility] adult medical examination with abnormal findings Discussion: Update fasting lab Follow Up: 4 months ICD-9 : V70.0 ICD-10 : Z00.01 09/07/2016 Visit Diagnosis Plan: Mixed hyperlipidemia Discussion: Check CMP, Lipids ICD-9 : 272.4 ICD-10 : E78.2 09/07/2016 Visit Diagnosis Plan: Nicotine dependence, unspecified , uncomplicated Discussion: Tobacco Abuse ICD-9 : 305.1 ICD-10 : F17.200 09/07/2016 Appointment: Martita Simons WPtel: [address] [place] [address] 09/06 confirmed~sl Annual Well Visit 09/07/2016 Patient Education: Patient Medication Summary Completed 09/07/2016 Care Plan: CHEST X-RAY 2VW FRONTAL&LATL LOINC : 79215-6 Pending 09/07/2016 Visit Plan: [facility] Insurance Paperwork 08/05/2016 Patient Education: Patient Medication Summary Completed 08/05/2016 Appointment: Martita Simons WPtel: [address] [place], [place] [phone] [place] UA 04/25/2016 Patient Education: Patient Medication Summary Completed 04/25/2016 Appointment: Martita Simons WPtel: [address] [place], [place] [phone] [place] LAB 09/15/2015 Patient Education: Patient Medication Summary Completed 09/15/2015 Visit Plan: SVN with Albuterol 0.083% Q4 hrs and Q2hrs prn. Supportive care. Rest, Fluids, Tylenol/Motrin prn fever or bodyaches. Notify if worsening symptoms. Daily back stretches, moist heat, Biofreeze prn Flexeril/Prednisone Notify if low back pain persists--will need x-rays Patient seeing Chiropracter [employer] 08/31/2015 Appointment: Martita Simonstel: [address] [place], [place] [phone] 08/28/15 vm cn 08/28/15 appt confirmed cn FOLLOW UP 08/31/2015 Patient Education: Patient Medication Summary Completed 08/31/2015 Appointment: Martita Simons WPtel: [address] [place], [place] [phone] UA 07/29/2015 Visit Plan: CMP, Lipids today Patient st opped chol meds 1week ago Continue hydrocodone 04/14/2015 Appointment: Martita Simons WPtel: [address] [place], [place] [phone] FOLLOW UP 04/14/2015 Patient Education: Patient Medication Summary Completed 04/14/2015 Appointment: Martita Simonstel: [address] [place], [place] [id number] LAB 11/10/2014 Patient Education: Patient Medication Summary Completed 11/10/2014 Visit Plan: Fasting lab at end of September for Lipids/LFTs Continue hydrocodone at current dose Needs to be on low dose asprin 81mg daily With upcoming trip need to stop every 2hours and get out and stretch 10/07/2014 Appointment: Martita Simonstel: [address] [place], [place] [phone] [place] FOLLOW UP 10/07/2014 Patient Education: Patient Medication Summary Completed 10/07/2014 Visit Plan: Lab discussed Will keep meds the same Keep hydrocodone at current dose--discussed schedule change on May 05 05/01/2014 Appointment: Martita Simons WPtel: [address] [place], [place] [phone] 04/29 confirmed when in for labs; asked if he still wanted a reminder call on Monday and he said no he would be here. FOLLOW UP 05/01/2014 Patient Education: Patient Medication Summary Completed 05/01/2014 Appointment: Martita Simons WPtel: [address] [place], [place] [id number] 04/29/2014 Patient Education: Patient Medication Summary Completed 04/29/2014 Appointment: Martita Simons WPtel: [address] [place] [address] LAB 12/18/2013 Patient Education: Patient Medication Summary Completed 12/18/2013 Appointment: Martita Simons WPtel: [address] [place] [address] 12/16 FOLLOW UP 12/17/2013 Patient Education: Patient Medication Summary Completed 12/17/2013 Visit Plan: Check CXR Start SVNs with al buterol 0.083% QID 12/11/2012 Appointment: Martita Simonstel: [address] [place] [address] FOLLOW UP 12/11/2012 Patient Education: Patient Medication Summary Completed 12/11/2012 Visit Plan: Zithromax for 1wk Prednisone for 1wk Symbicort 160/4.5 2p BID 12/04/2012 Appointment: Martita Simons WPtel: [address] [place] [address] ACUTE ILLNESS 12/04/2012 Patient Education: Patient Medication Summary Completed 12/04/2012 Visit Plan: Continue nystatin/TAC cream and add Lamisil for next month No lipitor for next month If rash persists then will need biopsy Trial of chantix--warned of suicidal ideation/depression Call in 1mo on finger lesion and chantix 08/14/2012 Appointment: Martita Simons [facility]Ptel[id number] 08/13 no answer...08/13 pt called back and confirmed OFFICE SURGERY 08/14/2012 Patient Education: Patient Medication Summary Completed 08/14/2012 Appointment: Martita Simons WPtel: [address] [place], [place] [id number] FOLLOW UP 07/17/2012 Patient Education: Patient Medication Summary Completed 07/17/2012 Appointment: Martita Simons WPtel: [address] [place], [place] [phone] [place] Appointment was confirmed by CN on 06/29 07/04 pt called, in family, was in [place] just got yash k 07/03 - [facility] ACUTE ILLNESS 07/02/2012 Visit Plan: Obtain US results of RUE DC coumadin as has been 3mos and start Aspirin 325mg daily Check CMP, Lipids, CBC, ESR, CRP today 03/20/2012 Appointment: Martita Simons WPtel: [address] [place], [place] [phone] FOLLOW UP 03/20/2012 Patient Education: Patient Medication Summary Completed 03/20/2012 Appointment: Martita Simons WPtel: [address] [place], [place] [phone] Patient called 2 hours past appt. Said saw a specialist today and specialist is not concerned about blod clot so doesnt want to reschedule-CN FOLLOW UP 12/14/2011 Appointment: Martita Simons WPtel: [address] [place], [place] [phone] [place] FOLLOW UP 12/13/2011 Visit Plan: Continue coumadin--IM is fol lowing level--discussed will likely need 6-12wks Observe contusion to right lower back Fwup with ortho as scheduled 12/08/2011 Appointment: Martita Simons WPtel: [address] [place], [place] [phone] ACUTE ILLNESS 12/08/2011 Patient Education: Patient Medication Summary Completed 12/08/2011 Visit Plan: Check fasting lab when goes for pre-op lab including CMP, CBC, Lipids, TSH, Free T4, PSA, uric acid Needs colonoscopy Hydrocodone refilled #80 to [facility] 08/11/2011 Appointment: [facility]Ptel[facility] [phone] [id number] [facility] 08/11/2011 Patient Education: Patient Medication Summary Completed 08/11/2011 Visit Plan: Obtain most recent lab resul ts Cont current meds Explained that cannot refill pain meds without current rx Discussed Synvisc injections and see ortho as oxycontin for knee arthritis is strong pain med 05/26/2010 Appointment: Martita Simons WPtel[facility] [phone] [id number] NEW [facility]IENT 05/26/2010 Patient Education: Patient Medication Summary Completed 05/26/2010 Instructions Comment . Filled out [employer] . SVN with Albuterol 0.083% Q4hrs and Q2 hrs prn. Supportive care. Rest, Fluids, Tylenol/Motrin prn fever or bodyaches. Notify if worsening symptoms. Daily back stretches, moist heat, Biofreeze prn Flexeril/Prednisone Notify if low back pain persists--will need x-rays Patient seeing Chiropracter [employer] . CMP, Lipids today Patient stopped chol meds 1week ago Continue hydrocodone . Fasting lab at end of September for Lipids /LFTs Continue hydrocodone at current dose Needs to be on low dose asprin 81mg daily With upcoming trip need to stop every 2hours and get out and stretch . Lab discussed Will keep meds the same Keep hydrocodone at current dose--discussed schedule change on May 05 SVN given in office with albuterol--bett er aeration after treatment. Check CXR Start SVNs with albuterol 0.083% QID . Zithromax for 1wk Prednisone for 1wk Symbicort 160/4.5 2p BID . Continue nystatin/TAC cream and add La misil for next month No lipitor for next month If rash persists then will need biopsy Trial of chantix--warned of suicidal ideation/depression Call in 1mo on finger lesion and chantix . Obtain US results of RUGenaro DC coumadin as has been 3mos and start Aspirin 325mg daily Check CMP, Lipids, CBC, ESR, CRP today . Continue coumadin--IM is following lev el--discussed will likely need 6-12wks Observe contusion to right lower back Fwup with ortho as scheduled . Check fasting lab when goes for pre-op lab including CMP, CBC, Lipids, TSH, Free T4, PSA, uric acid Needs colonoscopy Hydrocodone refilled #80 to [facility] . Obtain most recent lab results Cont current meds Explained that cannot refill pain meds without current rx Discussed Synvisc injections and see ortho as oxycontin for knee arthritis is strong pain med Medical Equipment No Medical Equipment data Health Concerns Section Health Concerns data not found Goals Section Goals data not found Interventions Section Interventions data not found Health Status Evaluations/Outcomes Section Health Status Evaluations/Outcomes data not found Advance Directives No Advance Directive data
--- OUTSIDE RECORDS SUMMARY | 2020-01-12 17:34 | XMS REPORT | CCD ---
Author Author Syd Simons D.O. 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 Role Phone Martita Simons D.O., PP Unavailable CCM Unavailable Summary Purpose Interface Exchange Insurance Providers Payer name Policy type / Coverage type Covered alliance party ID Effective Begin Date Effective End Date [facility] Commercial Insurance [id number] Unknown Family history Brother Diagnosis Age At Onset No Family Disease Entered N/A Father Diagnosis Age At Onset No Family Disease Entered N/A Mother Diagnosis Age At Onset No Family Disease Entered N/A Social History Social History Element Codes Description Effective Dates Tobacco history SNOMED CT: 98042077 Current every day smoker 06/2012 Number of [...] Active Co Q-10 100 mg capsule RxNorm: 986516 1 Capsule(s) Oral QD 01/08/20 20 No Stop Date Active Zyrtec 10 mg tablet RxNorm: 1007657 1 Tablet(s) Oral QD 01/08/2020 No Stop Date Active hydrocodone 10 mg-acetaminophen 325 mg tablet RxNorm: 282573 1 Tablet(s) Oral Q6H as needed for pain 12/26/2019 12/26/2019 Inactive (Response to an electronic controlled substance refill request - RxReferenceNumber: [id number]|1|0|1) hydrocodone 10 mg-acetaminophen 325 mg tablet RxNorm: 459278 1 Tablet(s) Oral Q6H as needed for pain 11/25/2019 11/25/2019 Inactive (Response to an electronic controlled substance refill request - RxReferenceNumber: [id number]|1|0|1) metoprolol succinate ER 25 mg tablet,extended release 24 hr RxNorm: 443104 1 Tablet(s) Oral QD 10/28/2019 10/28/2019 Inactive hydrocodone 10 mg-acetaminophen 325 mg tablet RxNorm: 736082 1 Tablet(s) PO Q6H as needed for pain 10/24/2019 11/24/2019 Inactive (Response to an electronic controlled substance refill request - RxReferenceNumber: [id number]|1|0|1) hydrocodone 10 mg-acetaminophen 325 mg tablet RxNorm: 196994 1 Tablet(s) PO Q6H as needed for pain 09/26/2019 10/23/2019 Inactive (Response to an electronic controlled substance refill request - RxReferenceNumber: [id number]|1|0|1) hydrocodone 10 mg-acetaminophen 325 mg tablet RxNorm: 756580 1 Tablet(s) PO Q6H as needed for pain 08/26/2019 09/25/2019 Inactive (Response to an electronic controlled substance refill request - RxReferenceNumber: [id number]|1|0|1) hydrocodone 10 mg-acetaminophen 325 mg tablet RxNorm: 677877 1 Tablet(s) PO Q6H as needed for pain 07/25/2019 08/25/2019 Inactive (Response to an electronic controlled substance refill request - RxReferenceNumber: [id number]|1|0|1) hydrocodone 10 mg-acetaminophen 325 mg tablet RxNorm: 753403 1 Tablet(s) PO Q6H as needed for pain 06/26/2019 07/24/2019 Inactive (Response to an electronic controlled substance refill request - RxReferenceNumber: [id number]|1|0|1) hydrocodone 10 mg-acetaminophen 325 mg tablet RxNorm: 227119 1 Tablet(s) PO Q6H as needed for pain 05/28/2019 06/25/2019 Inactive (Response to an electronic controlled substance refill request - RxReferenceNumber: [id number]|1|0|1) hydrocodone 10 mg-acetaminophen 325 mg tablet RxNorm: 728816 1 Tablet(s) PO Q6H as needed for pain 02/25/2019 05/27/2019 Inactive (Response to an electronic controlled substance refill request - RxReferenceNumber: [id number]|1|0|1) hydrocodone 10 mg-acetaminophen 325 mg tablet RxNorm: 823881 1 Tablet(s) PO Q6H as needed for pain 11/26/2018 02/24/2019 Inactive (Response to an electronic controlled substance refill request - RxReferenceNumber: [id number]|1|0|1) hydrocodone 10 mg-acetaminophen 325 mg tablet RxNorm: 163850 1 Tablet(s) PO Q6H as needed for pain 10/30/2018 11/25/2018 Inactive (Response to an electronic controlled substance refill request - RxReferenceNumber: [id number]|1|0|1) hydrocodone 10 mg-acetaminophen 325 mg tablet RxNorm: 352715 1 Tablet(s) PO Q6H as needed for pain 09/26/2018 10/29/2018 Inactive (Response to an electronic controlled substance refill request - RxReferenceNumber: [id number]|1|0|1) hydrocodone 10 mg-acetaminophen 325 mg tablet RxNorm: 914410 1 Tablet(s) PO Q6H as needed for pain 08/30/2018 09/25/2018 Inactive (Response to an electronic controlled substance refill request - RxReferenceNumber: [id number]|1|0|1) hydrocodone 10 mg-acetaminophen 325 mg tablet RxNorm: 500133 1 Tablet(s) PO Q6H as needed for pain 08/01/2018 08/29/2018 Inactive (Response to an electronic controlled substance refill request - RxReferenceNumber: [id number]|1|0|1) hydrocodone 10 mg-acetaminophen 325 mg tablet RxNorm: 139946 1 Tablet(s) PO Q6H as needed for pain 07/04/2018 07/31/2018 Inactive (Response to an electronic controlled substance refill request - RxReferenceNumber: [id number]|1|0|1) hydrocodone 10 mg-acetaminophen 325 mg tablet RxNorm: 003767 1 Tablet(s) PO Q6H as needed for pain 05/31/2018 07/03/2018 Inactive (Response to an electronic controlled substance refill request - RxReferenceNumber: [id number]|1|0|1) hydrocodone 10 mg-acetaminophen 325 mg tablet RxNorm: 682873 1 Tablet(s) PO Q6H as needed for pain 05/01/2018 05/30/2018 Inactive (Response to an electronic controlled substance refill request - RxReferenceNumber: [id number]|1|0|1) hydrocodone 10 mg-acetaminophen 325 mg tablet RxNorm: 290773 1 Tablet(s) PO Q6H as needed for pain 04/03/2018 04/30/2018 Inactive (Response to an electronic controlled substance refill request - RxReferenceNumber: [id number]|1|0|1) hydrocodone 10 mg-acetaminophen 325 mg tablet RxNorm: 796422 1 Tablet(s) PO Q6H as needed for pain 02/26/2018 04/02/2018 Inactive (Response to an electronic controlled substance refill request - RxReferenceNumber: [id number]|1|0|1) clotrimazole-betamethasone 1 %-0.05 % topical cream RxNorm: 885250 TOP As Directed CALL IF NO IMPROVEMENT IN 2 WEEKS 01/30/2018 01/29/2018 Inact kole [SAVINGS FOR UNINSURED PATIENTS -- BIN:[id number], PCN: [id number], Group: [id number], ID# [id number], Process claim through [employer]ighter, for questions: . THIS IS NOT INSURANCE.] hydrocodone 10 mg-acetaminophen 325 mg tablet RxNorm: 926676 1 Tablet(s) PO Q6H as needed for pain 01/29/2018 02/25/2018 Inactive (Response to an electronic controlled substance refill request - RxReferenceNumber: [id number]|1|0|1) hydrocodone 10 mg-acetaminophen 325 mg tablet RxNorm: 402013 1 Tablet(s) PO Q6H as needed for pain 12/28/2017 01/28/2018 Inactive (Response to an electronic controlled substance refill request - RxReferenceNumber: [id number]|1|0|1) hydrocodone 10 mg-acetaminophen 325 mg tablet RxNorm: 222642 1 Tablet(s) PO Q6H as needed for pain 11/29/2017 12/27/2017 Inactive (Response to an electronic controlled substance refill request - RxReferenceNumber: [id number]|1|0|1) hydrocodone 10 mg-acetaminophen 325 mg tablet RxNorm: 511027 1 Tablet(s) PO Q6H as needed for pain 11/02/2017 11/28/2017 Inactive (Response to an electronic controlled substance refill request - RxReferenceNumber: [id number]|1|0|1) hydrocodone 10 mg-acetaminophen 325 mg tablet RxNorm: 992986 1 Tablet(s) PO Q6H as needed for pain 10/02/2017 11/01/2017 Inactive (Response to an electronic controlled substance refill request - RxReferenceNumber: [id number]|1|0|1) hydrocodone 10 mg-acetaminophen 325 mg tablet RxNorm: 649920 1 Tablet(s) PO Q6H as needed for pain 08/30/2017 10/01/2017 Inactive (Response to an electronic controlled substance refill request - RxReferenceNumber: [id number]|1|0|1) hydrocodone 10 mg-acetaminophen 325 mg tablet RxNorm: 092885 1 Tablet(s) PO Q6H as needed for pain 08/01/2017 08/29/2017 Inactive (Response to an electronic controlled substance refill request - RxReferenceNumber: [id number]|1|0|1) hydrocodone 10 mg-acetaminophen 325 mg tablet RxNorm: 217836 1 Tablet(s) PO Q6H as needed for pain 06/26/2017 07/31/2017 Inactive (Response to an electronic controlled substance refill request - RxReferenceNumber: [id number]|1|0|1) hydrocodone 10 mg-acetaminophen 325 mg tablet RxNorm: 890154 1 Tablet(s) PO Q6H as needed for pain 06/26/2017 06/30/2019 Inactive (Response to an electronic controlled substance refill request - RxReferenceNumber: [id number]|1|0|1) hydrocodone 10 mg-acetaminophen 325 mg tablet RxNorm: 228403 1 Tablet(s) PO Q6H as needed for pain 03/27/2017 06/25/2017 Inactive (Response to an electronic controlled substance refill request - RxReferenceNumber: [id number]|1|0|1) hydrocodone 10 mg-acetaminophen 325 mg tablet RxNorm: 020310 1 Tablet(s) PO Q6H as needed for pain 02/23/2017 03/26/2017 Inactive (Response to an electronic controlled substance refill request - RxReferenceNumber: [id number]|1|0|1) hydrocodone 10 mg-acetaminophen 325 mg tablet RxNorm: 982649 1 Tablet(s) PO Q6H as needed for pain 01/24/2017 02/22/2017 Inactive (Response to an electronic controlled substance refill request - RxReferenceNumber: [id number]|1|0|1) hydrocodone 10 mg-acetaminophen 325 mg tablet RxNorm: 096573 1 Tablet(s) PO Q6H as needed for pain 12/27/2016 06/30/2019 Inactive (Response to an electronic controlled substance refill request - RxReferenceNumber: [id number]|1|0|1) hydrocodone 10 mg-acetaminophen 325 mg tablet RxNorm: 253442 1 Tablet(s) PO Q6H as needed for pain 12/27/2016 01/23/2017 Inactive (Response to an electronic controlled substance refill request - RxReferenceNumber: [id number]|1|0|1) hydrocodone 10 mg-acetaminophen 325 mg tablet RxNorm: 900015 1 Tablet(s) PO Q6H as needed for pain 11/23/2016 12/26/2016 Inactive (Response to an electronic controlled substance refill request - RxReferenceNumber: [id number]|1|0|1) hydrocodone 10 mg-acetaminophen 325 mg tablet RxNorm: 507445 1 Tablet(s) PO Q6H as needed for pain 10/20/2016 11/22/2016 Inactive (Response to an electronic controlled substance refill request - RxReferenceNumber: [id number]|1|0|1) hydrocodone 10 mg-acetaminophen 325 mg tablet RxNorm: 457766 1 Tablet(s) PO Q6H as needed for pain 09/26/2016 10/19/2016 Inactive (Response to an electronic controlled substance refill request - RxReferenceNumber: [id number]|1|0|1) hydrocodone 10 mg-acetaminophen 325 mg tablet RxNorm: 461149 1 Tablet(s) PO Q6H as needed for pain 07/27/2016 09/25/2016 Inactive (Response to an electronic controlled substance refill request - RxReferenceNumber: [id number]|1|0|1) hydrocodone 10 mg-acetaminophen 325 mg tablet RxNorm: 254793 1 Tablet(s) PO Q6H as needed for pain 05/04/2016 07/26/2016 Inactive (Response to an electronic controlled substance refill request - RxReferenceNumber: [id number]|1|0|1) hydrocodone 10 mg-acetaminophen 325 mg tablet RxNorm: 309455 1 Tablet(s) PO Q6H as needed for pain 03/31/2016 05/03/2016 Inactive (Response to an electronic controlled substance refill request - RxReferenceNumber: [id number]|1|0|1) citalopram 10 mg tablet RxNorm: 043573 1 Tablet(s) PO QD 09/28/2015 0 09/27/2015 Inactive citalopram 10 mg tablet RxNorm: 925734 1 Tablet(s) PO QD 09/28/2015 0 09/06/2016 Inactive Wellbutrin SR 150 mg tablet,sustained-release RxNorm: 390999 1 Tablet(s) PO QAM 09/25/2015 09/06/2016 Inactive prednisone 20 mg tablet RxNorm: 125483 1 Tablet(s) PO T ID for 3 days then 1 po BID for 3 days then one daily for 3 days 08/31/2015 09/06/2016 Inactiv e cyclobenzaprine 10 mg tablet RxNorm: 080628 1 Tablet(s) PO TID as needed for muscle spasm 08/31/2015 07/17/2017 Inactive hydrocodone 10 mg-acetaminophen 325 mg tablet RxNorm: 488351 1 Tablet(s) PO Q6H as needed for pain 08/26/2015 03/30/2016 Inactive (Response to an electronic controlled substance refill request - RxReferenceNumber: [id number]|1|0|1) hydrocodone 10 mg-acetaminophen 325 mg tablet RxNorm: 887592 1 Tablet(s) PO Q6H as needed for pain 07/28/2015 08/25/2015 Inactive (Response to an electronic controlled substance refill request - RxReferenceNumber: [id number]|1|0|1) hydrocodone 10 mg-acetaminophen 325 mg tablet RxNorm: 985897 1 Tablet(s) PO Q6H as needed for pain 06/23/2015 07/27/2015 Inactive (Response to an electronic controlled substance refill request - RxReferenceNumber: [id number]|1|0|1) hydrocodone 10 mg-acetaminophen 325 mg tablet RxNorm: 842240 1 Tablet(s) PO Q6H as needed for pain 05/21/2015 06/22/2015 Inactive (Response to an electronic controlled substance refill request - RxReferenceNumber: [id number]|1|0|1) azithromycin 250 mg tablet RxNorm: 805187 2 Tablet(s) P O on day one, then one tablet on days 2 - 5 04/27/2015 08/30/2015 Inactive hydrocodone 10 mg-acetaminophen 325 mg tablet RxNorm: 228520 1 Tablet(s) PO Q6H as needed for pain 03/25/2015 05/20/2015 Inactive (Response to an electronic controlled substance refill request - RxReferenceNumber: [id number]|1|0|1) hydrocodone 10 mg-acetaminophen 325 mg tablet RxNorm: 268397 1 Tablet(s) PO Q6H as needed for pain 02/24/2015 03/24/2015 Inactive (Response to an electronic controlled substance refill request - RxReferenceNumber: [id number]|1|0|1) hydrocodone 10 mg-acetaminophen 325 mg tablet RxNorm: 052669 1 Tablet(s) PO Q6H as needed for pain 01/23/2015 02/23/2015 Inactive (Response to an electronic controlled substance refill request - RxReferenceNumber: [id number]|1|0|1) hydrocodone 10 mg-acetaminophen 325 mg tablet RxNorm: 115558 1 Tablet(s) PO Q6H as needed for pain 12/23/2014 01/22/2015 Inactive (Response to an electronic controlled substance refill request - RxReferenceNumber: [id number]|1|0|1) hydrocodone 10 mg-acetaminophen 325 mg tablet RxNorm: 276057 1 Tablet(s) PO Q6H as needed for pain 11/24/2014 12/22/2014 Inactive (Response to an electronic controlled substance refill request - RxReferenceNumber: [id number]|1|0|1) hydrocodone 10 mg-acetaminophen 325 mg tablet RxNorm: 988960 1 Tablet(s) PO Q6H as needed for pain 10/28/2014 11/23/2014 Inactive (Response to an electronic controlled substance refill request - RxReferenceNumber: [id number]|1|0|1) hydrocodone 10 mg-acetaminophen 325 mg tablet RxNorm: 916789 1 Tablet(s) PO Q6H as needed for pain 09/25/2014 10/27/2014 Inactive (Response to an electronic controlled substance refill request - RxReferenceNumber: [id number]|1|0|1) Lipitor 80 mg tablet RxNorm: 322740 1 Tablet(s) PO QHS 09/24/2014 Inactive hydrocodone 10 mg-acetaminophen 325 mg tablet RxNorm: 007937 1 Tablet(s) PO Q6H as needed for pain 07/30/2014 09/24/2014 Inactive (Response to an electronic controlled substance refill request - RxReferenceNumber: [id number]|1|0|1) hydrocodone 10 mg-acetaminophen 325 mg tablet RxNorm: 192988 1 Tablet(s) PO Q6H as needed for pain 05/27/2014 07/29/2014 Inactive (Response to an electronic controlled substance refill request - RxReferenceNumber: [id number]|1|0|1) clotrimazole-betamethasone 1 %-0.05 % topical cream RxNorm: 135755 TOP As Directed 05/01/2014 08/30/2015 Inactive [SAVINGS FOR UNI NSURED PATIENTS -- BIN:[id number], PCN: ASPROD1, Group: [id number], ID# [id number], Process claim through [employer], for questions: . THIS IS NOT INSURANCE.] Lipitor 80 mg tablet RxNorm: 571748 1 Tablet(s) PO QHS 04/28/2014 Inactive hydrocodone 10 mg-acetaminophen 325 mg tablet RxNorm: 580649 1 Tablet(s) PO Q6H as needed for pain 04/28/2014 05/26/2014 Inactive (Response to an electronic controlled substance refill request - RxReferenceNumber: [id number]|1|0|1) hydrocodone 10 mg-acetaminophen 325 mg tablet RxNorm: 215490 1 Tablet(s) PO Q6H as needed for pain 03/27/2014 04/27/2014 Inactive (Response to an electronic controlled substance refill request - RxReferenceNumber: [id number]|1|0|1) hydrocodone 10 mg-acetaminophen 325 mg tablet RxNorm: 932574 1 Tablet(s) PO Q6H as needed for pain 12/20/2013 12/20/2013 Inactive (Appended: Co ntrolled substance eRx refill - RxReferenceNumber: [id number]|1|0|1) hydrocodone 10 mg-acetaminophen 325 mg tablet RxNorm: 891619 TAKE 1 TABLET BY MOUTH EVERY 6 HOURS NEEDED FOR PAIN 12/20/2013 01/12/2014 Inactive (Response to an electronic controlled substance refill request - RxReferenceNumber: [id number]|1|0|1) hydrocodone 10 mg-acetaminophen 325 mg tablet RxNorm: 066887 1 Tablet(s) PO Q6H as needed for pain 09/03/2013 12/19/2013 Inactive (Appended: Co ntrolled substance eRx refill - RxReferenceNumber: [id number]|1|0|1) hydrocodone 10 mg-acetaminophen 325 mg tablet RxNorm: 590360 Tablet(s) PO TAKE 1 TABLET BY MOUTH EVERY 6 HOURS NEEDED FOR PAIN 08/08/2013 09/03/2013 Inactive (Appended: Controlled substance eRx refill - RxReferenceNumber: [id number]|1|0|1) hydrocodone 10 mg-acetaminophen 325 mg tablet RxNorm: 001647 Tablet(s) PO TAKE 1 TABLET BY MOUTH EVERY 6 HOURS NEEDED FOR PAIN 07/11/2013 08/07/2013 Inactive (Appended: Controlled substance eRx refill - RxReferenceNumber: [id number]|1|0|1) hydrocodone 10 mg-acetaminophen 325 mg tablet RxNorm: 098798 2 Tablet(s) PO TAKE 1 TABLET BY MOUTH EVERY 6 HOURS NEEDED FOR PAIN 06/12/2013 3 Inactive (Appended: Controlled substance eRx ref ill - RxReferenceNumber: [id number]|1|0|1) hydrocodone 10 mg-acetaminophen 325 mg tablet RxNorm: 937369 2 1 Tablet(s) PO Q6H NEEDED FOR PAIN 05/15/2013 06/12/2013 Inactive (Appended: Co ntrolled substance eRx refill - RxReferenceNumber: [id number]|1|0|1) hydrocodone 10 mg-acetaminophen 325 mg tablet RxNorm: 148243 2 Tablet(s) PO TAKE 1 TO 2 TABLETS BY MOUTH EVERY 6 HOURS NEEDED FOR PAIN 04/18/2013 No Stop Date Active (Appended: Controlled substa nce eRx refill - RxReferenceNumber: [id number]|1|0|1) hydrocodone 10 mg-acetaminophen 325 mg tablet RxNorm: 167453 2 Tablet(s) PO TAKE 1 TO 2 TABLETS BY MOUTH EVERY 6 HOURS NEEDED FOR PAIN 03/19/2013 No Stop Date Active (Appended: Controlled substa nce eRx refill - RxReferenceNumber: [id number]|1|0|1) hydrocodone 10 mg-acetaminophen 325 mg tablet RxNorm: 637850 2 Tablet(s) PO TAKE 1 TO 2 TABLETS BY MOUTH EVERY 6 HOURS NEEDED FOR PAIN 02/06/2013 Inactive (Appended: Controlled substance eRx refi ll - RxReferenceNumber: [id number]|1|0|1) hydrocodone 10 mg-acetaminophen 325 mg tablet RxNorm: 857792 2 Tablet(s) PO TAKE 1 TO 2 TABLETS BY MOUTH EVERY 6 HOURS NEEDED FOR PAIN 01/08/201304/2013 Inactive (Appended: Controlled substance eRx ref ill - RxReferenceNumber: [id number]|1|0|1) Zithromax 250 mg tablet RxNorm: 297574 2 Tablet(s) PO QD 12/04/2012 0 12/10/2012 Inactive prednisone 20 mg tablet RxNorm: 590077 1 Tablet(s) PO BID 12/04/2012 12/10/2012 Inactive atorvastatin 40 mg tablet RxNorm: 185489 1 Tablet(s) PO QD 11/09/19 13 12/17/2013 Inactive hydrocodone 10 mg-acetaminophen 325 mg tablet RxNorm: 571479 2 Tablet(s) PO TAKE 1 TO 2 TABLETS BY MOUTH EVERY 6 HOURS NEEDED FOR PAIN 10/18/201205/2013 Inactive (Appended: Controlled substance eRx ref ill - RxReferenceNumber: [id number]|1|0|1) hydrocodone 10 mg-acetaminophen 325 mg tablet RxNorm: 872774 2 1-2 Tablet(s) PO Q6H as needed for pain 09/06/2012 10/18/2012 Inactive Lamisil 250 mg tablet RxNorm: 180719 1 Tablet(s) PO QD 08/14/2012 Inactive atorvastatin 40 mg tablet RxNorm: 742341 1 Tablet(s) PO QD 08/08/19 13 11/05/2012 Inactive prednisone 20 mg tablet RxNorm: 020075 1 Tablet(s) PO BID 07/17/2012 07/23/2012 Inactive Wellbutrin SR 150 mg tablet,extended release RxNorm: 872513 1 T ablet(s) PO BID 07/17/2012 08/13/2012 Inactive meloxicam 15 mg tablet RxNorm: 415595 1 Tablet(s) PO QD for pain 07/16/2012 Inactive atorvastatin 40 mg tablet RxNorm: 865479 1 Tablet(s) PO QD 06/27/2008/07/2012 Inactive hydrocodone-acetaminophen 10 mg-325 mg tablet RxNorm: 580059 2 1-2 Tablet(s) PO Q6H as needed for pain 05/23/2012 No Stop Date Active hydrocodone-acetaminophen 10 mg-325 mg tablet RxNorm: 783281 2 1-2 Tablet(s) PO Q6H as needed for pain 04/24/2012 No Stop Date Active hydrocodone-acetaminophen 10 mg-325 mg tablet RxNorm: 678242 2 1-2 Tablet(s) PO Q6H as needed for pain 02/08/2012 No Stop Date Active hydrocodone-acetaminophen 10 mg-325 mg Tab RxNorm: 3477923 1-2 Tablet(s) PO Q6H as needed for pain 01/02/2012 No Stop Date Active hydrocodone-acetaminophen 10 mg-325 mg Tab RxNorm: 8244832 1-2 Tablet(s) PO Q6H as needed for pain 11/29/2011 No Stop Date Active hydrocodone-acetaminophen 10 mg-325 mg Tab RxNorm: 1019542 1-2 Tablet(s) PO Q6H as needed for pain 10/24/2011 No Stop Date Active hydrocodone-acetaminophen 10 mg-325 mg Tab RxNorm: 4442860 1-2 Tablet(s) PO Q6H as needed for pain 10/07/2011 No Stop Date Active simvastatin 40 mg Tab RxNorm: 821732 1 Tablet(s) PO QHS 08/11/2011 Inactive Symbicort 160 mcg-4.5 mcg/actuation HFA aerosol inhaler RxNo rm: 6609631 2 INH QD No Start Date Active atorvastatin 40 mg tablet RxNorm: 667837 1 Tablet(s) PO QD No Start D ate Active aspirin 81 mg tablet RxNorm: 435053 1 Tablet(s) PO QD No Start Date Active Vitamin D3 2,000 unit tablet RxNorm: 964560 3 Tablet(s) PO No Start D ate Active lisinopril 5 mg tablet RxNorm: 216288 1 Tablet(s) PO QD No Start Date Active hydrocodone-acetaminophen 10 mg-325 mg Tab RxNorm: 2184307 1-2 Tablet(s) PO Q6H as needed for pain No Start Date 10/06/2011 Inactive clopidogrel 75 mg tablet RxNorm: 960110 1 Tablet(s) PO QD No Start Date 01/07/2020 Inactive Wellbutrin SR 150 mg tablet,sustained-release RxNorm: 963625 1 Tablet(s) PO QAM No Start Date 09/24/2015 Inactive metoprolol succinate ER 25 mg tablet,extended release 24 hr RxNorm: 120321 1 Tablet(s) PO QD No Start Date 10/27/2019 Inactive OxyContin 15 mg 12 hr Tab RxNorm: 9359708 1 Tablet(s) PO BID No Sta rt Date 08/10/2011 Inactive warfarin 5 mg Tab RxNorm: 797995 1 Tablet(s) PO QD No Start Date 03/01 Inactive albuterol sulfate 1.25 mg/3 mL Neb Solution RxNorm: 256053 1 Unit Dose INH prn wheezing, congestion, shortness of breath No Start Date 04/30/2014 Inacti ve azithromycin 250 mg tablet RxNorm: 940205 2 Tablet(s) P O on day one, then one tablet on days 2 - 5 No Start Date 04/26/2015 Inactive warfarin 10 mg Tab RxNorm: 330391 1 Tablet(s) PO QOD No Start Date Inactive Symbicort Inhl RxNorm: Inhalation No Start Date 12/16/2013 Inactive Trilipix 135 mg Cap RxNorm: 457208 1 Capsule(s) PO QD No Start Date 0 12/07/2011 Inactive Chantix Starting Month Box 0.5 mg (11)-1 mg (42) table ts in dose pack RxNorm: 003223 Tablet(s) PO as directed No Start Date 12/03/2012 Inactive clotrimazole-betamethasone 1 %-0.05 % topical cream RxNorm: 696556 TOP As Directed No Start Date 04/30/2014 Inactive nystatin-triamcinolone 100,000 unit/g-0.1 % Topical Cream Rx Norm: 3816331 Application TOP BID for 2-4weeks No Start Date 12/03/2012 Inactive Lovastatin 20 mg Tab RxNorm: 757651 1 Tablet(s) PO QHS No Start Date 08/10/2011 Inactive krill oil oral RxNorm: 00585 oral No Start Date 06/30/2019 Inacti ve warfarin 7.5 mg Tab RxNorm: 887496 1 Tablet(s) PO QOD No Start Date 1 09/16/2011 Inactive Lipitor 80 mg tablet RxNorm: 273160 1 Tablet(s) PO QHS No Start Date 04/27/2014 Inactive simvastatin 40 mg Tab RxNorm: 024306 1 Tablet(s) PO QHS No Start Da te 08/10/2011 Inactive Gemfibrozil 600 mg Tab RxNorm: 144017 1 Tablet(s) PO QHS No Start D ate 08/10/2011 Inactive Medication Administered No Medication Administered data Immunizations No Immunization data Results Observation Observation Code Item Item Code Result Date S [facility] Location COMPLETE BLOOD COUNT [id number] WBC 9.7 10e9/L 06/19/20 18 Unknown COMPLETE BLOOD COUNT [id number] RBC 5.35 10e12/L 2017 Unknown COMPLETE BLOOD COUNT [id number] HEMOGLOBIN 17.1 g/dL 06/19/20 18 Unknown COMPLETE BLOOD COUNT [id number] HEMATOCRIT 52.4 % 06/19/20 18 Unknown COMPLETE BLOOD COUNT [id number] MCV 97.9 fL 8 Unknown COMPLETE BLOOD COUNT [id number] MCH 32.0 pg 8 Unknown COMPLETE BLOOD COUNT [id number] MCHC 32.6 g/dL 8 Unknown COMPLETE BLOOD COUNT [id number] PLATELET COUNT 257 10e9/L Unknown COMPLETE BLOOD COUNT [id number] Mean Plt Volume 11.2 fL Unknown COMPLETE BLOOD COUNT [id number] Neut Auto 54.6 % 8 Unknown COMPLETE BLOOD COUNT [id number] Lymph Auto 33.3 % 06/19/20 18 Unknown COMPLETE BLOOD COUNT [id number] Cottle Auto 9.1 % 8 Unknown COMPLETE BLOOD COUNT [id number] RDW 14.4 % 8 Unknown COMPLETE BLOOD COUNT [id number] Eos Auto 2.6 % 8 Unknown COMPLETE BLOOD COUNT [id number] Baso Auto 0.4 % 8 Unknown COMPLETE BLOOD COUNT [id number] Neutrophil Abs 5.30 10e9/L Unknown COMPLETE BLOOD COUNT [id number] Lymphocyte Abs 3.23 10e9/L Unknown COMPLETE BLOOD COUNT [id number] Monocyte Abs 0.88 10e9/L 06/01 Unknown COMPLETE BLOOD COUNT [id number] Eosinophil Abs 0.25 10e9/L Unknown COMPLETE BLOOD COUNT [id number] RDW-SD 51.8 fL 8 Unknown COMPLETE BLOOD COUNT [id number] Basophil Abs 0.04 10e9/L 06/01 Unknown LIPID GROUP 66335 Cholesterol 222 mg/dL 06/19/2018 Unkno wn [facility] 01655 Triglyceride 111 mg/dL 06/19/2018 Unkn own [facility] 90235 HDL CHOLESTEROL 37 mg/dL 06/19/2018 U nknown L[facility] 13313 Chol/HDL Ratio 6.00 ratio 06/19/2018 U nknown [facility] 80978 NON-HDL Chol 185 mg/dL 06/19/2018 Unkn own [facility] 84830 LDL Cholesterol 163 mg/dL 06/19/2018 U nknown VITAMIN B 12 81670 VITAMIN B12 532 pg/mL 06/19/2018 Unkn own THYROID STIMULATING HORMONE 45657 TSH 2.685 uIU/mL 06/19/2018 Unknown COMPREHENSIVE METABOLIC 98159 AST 15 U/L 2017 Unknown COMPREHENSIVE METABOLIC 98233 ALT 21 U/L 2017 Unknown COMPREHENSIVE METABOLIC 25949 BUN 16 mg/dL 2017 Unknown COMPREHENSIVE METABOLIC 40374 ALBUMIN 4.1 g/dL 2017 Unknown COMPREHENSIVE METABOLIC 77172 CHLORIDE 99 mmol/L 2017 Unknown COMPREHENSIVE METABOLIC 06944 Bili Total 0.4 mg/dL 06/19 Unknown COMPREHENSIVE METABOLIC 55100 ALK PHOS 43 U/L 2017 Unknown COMPREHENSIVE METABOLIC 19059 SODIUM 136 mmol/L 06/19 Unknown COMPREHENSIVE METABOLIC 97291 CREATININE 0.82 mg/dL 06/01 Unknown COMPREHENSIVE METABOLIC 76211 CALCIUM 9.5 mg/dL 2017 Unknown COMPREHENSIVE METABOLIC 44616 POTASSIUM 5.2 mmol/L 06/19 Unknown COMPREHENSIVE METABOLIC 88781 Total Protein 6.7 g/dL Unknown COMPREHENSIVE METABOLIC 96285 Glucose 81 mg/dL 2017 Unknown COMPREHENSIVE METABOLIC 53721 Bicarbonate 30 mmol/L 06/01 Unknown COMPREHENSIVE METABOLIC 70222 AGAP 7 mmol/L 2017 Unknown FREE T4 51706 T4 Free 0.85 ng/dL 06/19/2018 Unknown GFR CALC 6408521 GFR Non Afr Amr >60 mL/min 06/19/2018 Un known GFR CALC 4878487 GFR Afr Amr >60 mL/min 06/19/2018 Unknow n VITAMIN D TOTAL (25 HYDROXY) 19170 Vitamin D 25 OH 24.1 ng/mL 06/19/2018 Unknown PSA EQUIMOLAR TROY 00529 PSA Total 0.88 ng/mL 8 Unknown GFR CALC 7412248 GFR Non Afr Amr >60 mL/min 09/09/2016 Un known GFR CALC 2095417 GFR Afr Amr >60 mL/min 09/09/2016 Unknow n COMPLETE BLOOD COUNT 0723762 WBC 11.7 10e9/L 017 Unknown COMPLETE BLOOD COUNT 1053384 RBC 5.54 10e12/L 2016 Unknown COMPLETE BLOOD COUNT 4802988 HEMOGLOBIN 17.6 g/dL 09/09/19 17 Unknown COMPLETE BLOOD COUNT 0764062 HEMATOCRIT 52.3 % 09/09/19 17 Unknown COMPLETE BLOOD COUNT 0441676 MCV 94.4 fL 7 Unknown COMPLETE BLOOD COUNT 0071706 MCH 31.8 pg 7 Unknown COMPLETE BLOOD COUNT 4137396 MCHC 33.7 g/dL 7 Unknown COMPLETE BLOOD COUNT 3835500 PLATELET COUNT 259 10e9/L 04/2017 Unknown COMPLETE BLOOD COUNT 7617172 Mean Plt Volume 11.2 fL 04/2017 Unknown COMPLETE BLOOD COUNT 1134829 Neut Auto 53.6 % 7 Unknown COMPLETE BLOOD COUNT 2124306 Lymph Auto 36.2 % 09/09/19 17 Unknown COMPLETE BLOOD COUNT 5803832 Cottle Auto 7.9 % 7 Unknown COMPLETE BLOOD COUNT 9366807 RDW 14.2 % 7 Unknown COMPLETE BLOOD COUNT 8773674 Eos Auto 2.1 % 7 Unknown COMPLETE BLOOD COUNT 7146417 Baso Auto 0.2 % 7 Unknown COMPLETE BLOOD COUNT 3374924 Neutrophil Abs 6.27 10e9/L Unknown COMPLETE BLOOD COUNT 3969116 Lymphocyte Abs 4.24 10e9/L Unknown COMPLETE BLOOD COUNT 4689122 Monocyte Abs 0.92 10e9/L 08/31 Unknown COMPLETE BLOOD COUNT 1384532 Eosinophil Abs 0.25 10e9/L Unknown COMPLETE BLOOD COUNT 1567244 RDW-SD 48.1 fL 7 Unknown COMPLETE BLOOD COUNT 6236933 Basophil Abs 0.02 10e9/L 08/31 Unknown COMPREHENSIVE METABOLIC 26588 AST 19 U/L 2016 Unknown COMPREHENSIVE METABOLIC 31187 ALT 25 U/L 2016 Unknown COMPREHENSIVE METABOLIC 50540 BUN 16 mg/dL 2016 Unknown COMPREHENSIVE METABOLIC 05135 ALBUMIN 4.8 g/dL 2016 Unknown COMPREHENSIVE METABOLIC 77372 CHLORIDE 100 mmol/L 09/09 Unknown COMPREHENSIVE METABOLIC 25489 Bili Total 0.7 mg/dL 09/09 Unknown COMPREHENSIVE METABOLIC 00324 ALK PHOS 50 U/L 2016 Unknown COMPREHENSIVE METABOLIC 17593 SODIUM 136 mmol/L 09/09 Unknown COMPREHENSIVE METABOLIC 61505 CREATININE 0.98 mg/dL 08/31 Unknown COMPREHENSIVE METABOLIC 17751 CALCIUM 9.8 mg/dL 2016 Unknown COMPREHENSIVE METABOLIC 29439 POTASSIUM 4.6 mmol/L 09/09 Unknown COMPREHENSIVE METABOLIC 68706 Total Protein 7.5 g/dL Unknown COMPREHENSIVE METABOLIC 36911 Glucose 104 mg/dL 2016 Unknown COMPREHENSIVE METABOLIC 55846 Bicarbonate 27 mmol/L 08/31 Unknown COMPREHENSIVE METABOLIC 34079 AGAP 9 mmol/L 2016 Unknown FREE T4 08458 T4 Free 1.04 ng/dL 09/09/2016 Unknown THYROID STIMULATING HORMONE 73881 TSH 1.618 uIU/mL 09/09/2016 Unknown LIP[facility] 67335 Cholesterol 251 mg/dL 09/09/2016 Unkno wn [facility] 49691 Triglyceride 153 mg/dL 09/09/2016 Unkn own [facility] 67000 HDL CHOLESTEROL 33 mg/dL 09/09/2016 U nknown [facility] 22127 Chol/HDL Ratio 7.61 ratio 09/09/2016 U nknown [facility] 90432 NON-HDL Chol 218 mg/dL 09/09/2016 Unkn own [facility] 75902 LDL Cholesterol 187 mg/dL 09/09/2016 U nknown [facility] 69034 HDL TEST 39 MG/DL 09/15/2015 Unknown [facility] 28805 TRIG 106 MG/DL 09/15/2015 Unknown [facility] 29764 TEST LDL 152 MG/DL 09/15/2015 Unknown [facility] 60396 CHOL 212 MG/DL 09/15/2015 Unknown [facility] 92465 RCHOL/HDL 5.44 RATIO 09/15/2015 Unknow n [facility] 56947 NON-HDL CH 173 MG/DL 09/15/2015 Unknow n GFR CALC 7970259 GFR AA >60 ML/MIN 09/15/2015 Unknown GFR CALC 4359159 GFR NON-AA >60 ML/MIN 09/15/2015 Unknown COMPREHENSIVE METABOLIC 68872 AST 18 U/L 2015 Unknown COMPREHENSIVE METABOLIC 14575 ALT 28 IU/L 2015 Unknown COMPREHENSIVE METABOLIC 57846 BUN 14 MG/DL 2015 Unknown COMPREHENSIVE METABOLIC 80938 ALBUMIN 4.2 GM/DL 2015 Unknown COMPREHENSIVE METABOLIC 77303 CHLORIDE 101 MMOL/L 09/15 Unknown COMPREHENSIVE METABOLIC 64682 BILI TOT 0.6 MG/DL 2015 Unknown COMPREHENSIVE METABOLIC 43572 ALK PHOS 48 U/L 2015 Unknown COMPREHENSIVE METABOLIC 22922 SODIUM 135 MMOL/L 09/15 Unknown COMPREHENSIVE METABOLIC 04358 CREATININE 0.91 MG/DL 08/31 Unknown COMPREHENSIVE METABOLIC 49869 CALCIUM 9.2 MG/DL 2015 Unknown COMPREHENSIVE METABOLIC 59653 POTASSIUM 4.6 MMOL/L 09/15 Unknown COMPREHENSIVE METABOLIC 23101 PROT TOT 6.6 GM/DL 2015 Unknown COMPREHENSIVE METABOLIC 99995 Glucose 97 MG/DL 2015 Unknown COMPREHENSIVE METABOLIC 74993 BICARB 27 MMOL/L 2015 Unknown COMPREHENSIVE METABOLIC 72229 ANION GAP 7 MEQ/L 2015 Unknown [facility] 79217 HDL TEST 35 MG/DL 04/14/2015 Unknown [facility] 69062 TRIG 135 MG/DL 04/14/2015 Unknown [facility] 34993 TEST LDL 153 MG/DL 04/14/2015 Unknown [facility] 55223 CHOL 215 MG/DL 04/14/2015 Unknown [facility] 66565 RCHOL/HDL 6.14 RATIO 04/14/2015 Unknow n [facility] 78521 NON-HDL CH 180 MG/DL 04/14/2015 Unknow n GFR CALC 5102668 GFR AA >60 ML/MIN 04/14/2015 Unknown GFR CALC 7038291 GFR NON-AA >60 ML/MIN 04/14/2015 Unknown COMPREHENSIVE METABOLIC 29894 AST 23 U/L 2014 Unknown COMPREHENSIVE METABOLIC 31633 ALT 27 IU/L 2014 Unknown COMPREHENSIVE METABOLIC 65079 BUN 15 MG/DL 2014 Unknown COMPREHENSIVE METABOLIC 95430 ALBUMIN 4.2 GM/DL 2014 Unknown COMPREHENSIVE METABOLIC 43803 CHLORIDE 103 MMOL/L 04/14 Unknown COMPREHENSIVE METABOLIC 23595 BILI TOT 0.8 MG/DL 2014 Unknown COMPREHENSIVE METABOLIC 24760 ALK PHOS 50 U/L 2014 Unknown COMPREHENSIVE METABOLIC 39415 SODIUM 134 MMOL/L 04/14 Unknown COMPREHENSIVE METABOLIC 34930 CREATININE 0.93 MG/DL 03/31 Unknown COMPREHENSIVE METABOLIC 61662 CALCIUM 9.4 MG/DL 2014 Unknown COMPREHENSIVE METABOLIC 37838 POTASSIUM 4.4 MMOL/L 04/14 Unknown COMPREHENSIVE METABOLIC 72256 PROT TOT 6.8 GM/DL 2014 Unknown COMPREHENSIVE METABOLIC 17343 Glucose 101 MG/DL 2014 Unknown COMPREHENSIVE METABOLIC 55722 BICARB 25 MMOL/L 2014 Unknown COMPREHENSIVE METABOLIC 04954 ANION GAP 6 MEQ/L 2014 Unknown PSA EQUIMOLAR TROY 84532 PSA EQ 1.04 NG/ML 5 Unknown GFR CALC 0586188 GFR AA >60 ML/MIN 11/10/2014 Unknown GFR CALC 2486155 GFR NON-AA >60 ML/MIN 11/10/2014 Unknown [facility] 45892 HDL TEST 31 MG/DL 11/10/2014 Unknown [facility] 61665 TRIG 133 MG/DL 11/10/2014 Unknown [facility] 40817 TEST LDL 74 MG/DL 11/10/2014 Unknown [facility] 17269 CHOL 132 MG/DL 11/10/2014 Unknown [facility] 25360 RCHOL/HDL 4.26 RATIO 11/10/2014 Unknow n [facility] 14944 NON-HDL CH 101 MG/DL 11/10/2014 Unknow n COMPLETE BLOOD COUNT 4577727 WBC 10.2 10e9/L 015 Unknown COMPLETE BLOOD COUNT 1768389 RBC 5.01 10e12/L 2014 Unknown COMPLETE BLOOD COUNT 5264455 HGB 16.1 g/dL 5 Unknown COMPLETE BLOOD COUNT 6548170 HCT DET 48.1 % 5 Unknown COMPLETE BLOOD COUNT 6865342 MCV 96.0 fL 5 Unknown COMPLETE BLOOD COUNT 1679966 MCH 32.1 pg 5 Unknown COMPLETE BLOOD COUNT 8415184 MCHC 33.5 g/dL 5 Unknown COMPLETE BLOOD COUNT 1644829 PLT 248 10e9/L 11/11/19 15 Unknown COMPLETE BLOOD COUNT 0935707 MPV 11.4 fL 5 Unknown COMPLETE BLOOD COUNT 1797498 GIUSEPPE % 51.2 % 5 Unknown COMPLETE BLOOD COUNT 8694811 LY % 37.4 % 5 Unknown COMPLETE BLOOD COUNT 6738862 MON % 9.2 % 5 Unknown COMPLETE BLOOD COUNT 7307587 EOS % 2.0 % 5 Unknown COMPLETE BLOOD COUNT 9770313 BASO % 0.2 % 5 Unknown COMPLETE BLOOD COUNT 2209701 RDW 14.0 % 5 Unknown COMPLETE BLOOD COUNT 8091470 ABS GIUSEPPE 5.22 10e9/L 015 Unknown COMPLETE BLOOD COUNT 0370656 ABS LYMPH 3.81 10e9/L 015 Unknown COMPLETE BLOOD COUNT 2536064 ABS MONO 0.94 10e9/L 015 Unknown COMPLETE BLOOD COUNT 9234741 ABS EOS 0.20 10e9/L 015 Unknown COMPLETE BLOOD COUNT 1201590 ABS BASO 0.02 10e9/L 015 Unknown COMPLETE BLOOD COUNT 8647112 RDW-SD 47.8 fL 5 Unknown FREE T4 29883 FREE T4 0.92 NG/DL 11/10/2014 Unknown COMPREHENSIVE METABOLIC 72136 AST 18 U/L 2014 Unknown COMPREHENSIVE METABOLIC 01311 ALT 25 IU/L 2014 Unknown COMPREHENSIVE METABOLIC 01269 BUN 16 MG/DL 2014 Unknown COMPREHENSIVE METABOLIC 73883 ALBUMIN 4.5 GM/DL 2014 Unknown COMPREHENSIVE METABOLIC 09322 CHLORIDE 103 MMOL/L 11/10 Unknown COMPREHENSIVE METABOLIC 60463 BILI TOT 0.4 MG/DL 2014 Unknown COMPREHENSIVE METABOLIC 28601 ALK PHOS 53 U/L 2014 Unknown COMPREHENSIVE METABOLIC 95008 SODIUM 135 MMOL/L 11/10 Unknown COMPREHENSIVE METABOLIC 40495 CREATININE 0.97 MG/DL 10/29 Unknown COMPREHENSIVE METABOLIC 13459 CALCIUM 9.4 MG/DL 2014 Unknown COMPREHENSIVE METABOLIC 72057 POTASSIUM 4.4 MMOL/L 11/10 Unknown COMPREHENSIVE METABOLIC 74923 PROT TOT 6.9 GM/DL 2014 Unknown COMPREHENSIVE METABOLIC 73677 Glucose 91 MG/DL 2014 Unknown COMPREHENSIVE METABOLIC 45329 BICARB 26 MMOL/L 2014 Unknown COMPREHENSIVE METABOLIC 56457 ANION GAP 6 MEQ/L 2014 Unknown THYROID STIMULATING HORMONE 69685 TSH 3.791 uIU/ML 11/10/2014 Unknown [facility] 50652 HDL TEST 35 MG/DL 04/29/2014 Unknown [facility] 17310 TRIG 123 MG/DL 04/29/2014 Unknown [facility] 88315 TEST LDL 117 MG/DL 04/29/2014 Unknown [facility] 59056 CHOL 177 MG/DL 04/29/2014 Unknown [facility] 16911 RCHOL/HDL 5.06 RATIO 04/29/2014 Unknow n [facility] 36543 NON-HDL CH 142 MG/DL 04/29/2014 Unknow n COMPREHENSIVE METABOLIC 26610 AST 18 U/L 2013 Unknown COMPREHENSIVE METABOLIC 41368 ALT 29 IU/L 2013 Unknown COMPREHENSIVE METABOLIC 64721 BUN 19 MG/DL 2013 Unknown COMPREHENSIVE METABOLIC 11404 ALBUMIN 4.0 GM/DL 2013 Unknown COMPREHENSIVE METABOLIC 93552 CHLORIDE 106 MMOL/L 04/29 Unknown COMPREHENSIVE METABOLIC 56722 BILI TOT 0.4 MG/DL 2013 Unknown COMPREHENSIVE METABOLIC 32399 ALK PHOS 51 U/L 2013 Unknown COMPREHENSIVE METABOLIC 28113 SODIUM 138 MMOL/L 04/29 Unknown COMPREHENSIVE METABOLIC 64882 CREATININE 0.87 MG/DL 04/02 Unknown COMPREHENSIVE METABOLIC 26317 CALCIUM 9.4 MG/DL 2013 Unknown COMPREHENSIVE METABOLIC 42913 POTASSIUM 4.5 MMOL/L 04/29 Unknown COMPREHENSIVE METABOLIC 79509 PROT TOT 6.8 GM/DL 2013 Unknown COMPREHENSIVE METABOLIC 21378 Glucose 106 MG/DL 2013 Unknown COMPREHENSIVE METABOLIC 48061 BICARB 24 MMOL/L 2013 Unknown COMPREHENSIVE METABOLIC 40412 ANION GAP 8 MEQ/L 2013 Unknown GFR CALC 3897761 GFR AA >60 ML/MIN 04/29/2014 Unknown GFR CALC 5715251 GFR NON-AA >60 ML/MIN 04/29/2014 Unknown [facility] 40353 HDL TEST 30 MG/DL 12/18/2013 Unknown [facility] 97491 TRIG 128 MG/DL 12/18/2013 Unknown [facility] 48835 TEST LDL 166 MG/DL 12/18/2013 Unknown [facility] 96976 CHOL 222 MG/DL 12/18/2013 Unknown [facility] 17630 RCHOL/HDL 7.40 RATIO 12/18/2013 Unknow n GFR CALC 0455322 GFR AA >60 ML/MIN 12/18/2013 Unknown GFR CALC 2642550 GFR NON-AA >60 ML/MIN 12/18/2013 Unknown FREE T4 69155 FREE T4 1.07 NG/DL 12/18/2013 Unknown COMPLETE BLOOD COUNT 6316115 WBC 7.2 10e9/L 12/19/19 14 Unknown COMPLETE BLOOD COUNT 9342906 RBC 4.89 10e12/L 2013 Unknown COMPLETE BLOOD COUNT 0516972 HGB 15.5 g/dL 4 Unknown COMPLETE BLOOD COUNT 2993255 HCT DET 46.6 % 4 Unknown COMPLETE BLOOD COUNT 1276607 MCV 95.3 fL 4 Unknown COMPLETE BLOOD COUNT 2413987 MCH 31.7 pg 4 Unknown COMPLETE BLOOD COUNT 4463860 MCHC 33.3 g/dL 4 Unknown COMPLETE BLOOD COUNT 3187922 PLT 246 10e9/L 12/19/19 14 Unknown COMPLETE BLOOD COUNT 1076068 MPV 11.4 fL 4 Unknown COMPLETE BLOOD COUNT 5172598 GIUSEPPE % 48.6 % 4 Unknown COMPLETE BLOOD COUNT 9793130 LY % 37.4 % 4 Unknown COMPLETE BLOOD COUNT 4827304 MON % 10.5 % 4 Unknown COMPLETE BLOOD COUNT 9766725 EOS % 3.2 % 4 Unknown COMPLETE BLOOD COUNT 9617470 BASO % 0.3 % 4 Unknown COMPLETE BLOOD COUNT 2488866 RDW 13.6 % 4 Unknown COMPLETE BLOOD COUNT 7229552 ABS GIUSEPPE 3.50 10e9/L 014 Unknown COMPLETE BLOOD COUNT 0048527 ABS LYMPH 2.69 10e9/L 014 Unknown COMPLETE BLOOD COUNT 4331982 ABS MONO 0.76 10e9/L 014 Unknown COMPLETE BLOOD COUNT 4523350 ABS EOS 0.23 10e9/L 014 Unknown COMPLETE BLOOD COUNT 5677826 ABS BASO 0.02 10e9/L 014 Unknown COMPLETE BLOOD COUNT 8362439 RDW-SD 46.2 fL 4 Unknown COMPREHENSIVE METABOLIC 81620 AST 38 U/L 2013 Unknown COMPREHENSIVE METABOLIC 43653 ALT 33 IU/L 2013 Unknown COMPREHENSIVE METABOLIC 55560 BUN 15 MG/DL 2013 Unknown COMPREHENSIVE METABOLIC 35863 ALBUMIN 4.2 GM/DL 2013 Unknown COMPREHENSIVE METABOLIC 57123 CHLORIDE 103 MMOL/L 12/18 Unknown COMPREHENSIVE METABOLIC 90022 BILI TOT 0.6 MG/DL 2013 Unknown COMPREHENSIVE METABOLIC 76263 ALK PHOS 45 U/L 2013 Unknown COMPREHENSIVE METABOLIC 01730 SODIUM 136 MMOL/L 12/18 Unknown COMPREHENSIVE METABOLIC 14336 CREATININE 0.97 MG/DL 11/29 Unknown COMPREHENSIVE METABOLIC 64079 CALCIUM 9.2 MG/DL 2013 Unknown COMPREHENSIVE METABOLIC 34481 POTASSIUM 4.2 MMOL/L 12/18 Unknown COMPREHENSIVE METABOLIC 78768 PROT TOT 7.0 GM/DL 2013 Unknown COMPREHENSIVE METABOLIC 15926 Glucose 120 MG/DL 2013 Unknown COMPREHENSIVE METABOLIC 08084 BICARB 24 MMOL/L 2013 Unknown COMPREHENSIVE METABOLIC 19248 ANION GAP 9 MEQ/L 2013 Unknown THYROID STIMULATING HORMONE 66099 TSH 1.305 uIU/ML 12/18/2013 Unknown PSA EQUIMOLAR TROY 07420 PSA EQ 1.71 NG/ML 4 Unknown [facility] 16506 HDL TEST 29 MG/DL 07/17/2012 Unknown [facility] 08379 TRIG 155 MG/DL 07/17/2012 Unknown L[facility] GROUP 74367 TEST LDL 105 MG/DL 07/17/2012 Unknown [facility] 82419 CHOL 165 MG/DL 07/17/2012 Unknown [facility] 11611 RCHOL/HDL 5.69 RATIO 07/17/2012 Unknow n GFR CALC 1599905 GFR AA >60 ML/MIN 07/17/2012 Unknown GFR CALC 8798544 GFR NON-AA >60 ML/MIN 07/17/2012 Unknown COMPREHENSIVE METABOLIC 56992 AST 19 U/L 2011 Unknown COMPREHENSIVE METABOLIC 68066 ALT 25 IU/L 2011 Unknown COMPREHENSIVE METABOLIC 48482 BUN 14 MG/DL 2011 Unknown COMPREHENSIVE METABOLIC 57991 ALBUMIN 4.4 GM/DL 2011 Unknown COMPREHENSIVE METABOLIC 83750 CHLORIDE 103 MMOL/L 07/17 Unknown COMPREHENSIVE METABOLIC 17080 BILI TOT 0.6 MG/DL 2011 Unknown COMPREHENSIVE METABOLIC 66909 ALK PHOS 53 U/L 2011 Unknown COMPREHENSIVE METABOLIC 32564 SODIUM 136 MMOL/L 07/17 Unknown COMPREHENSIVE METABOLIC 91039 CREATININE 0.97 MG/DL 06/30 Unknown COMPREHENSIVE METABOLIC 74791 CALCIUM 9.4 MG/DL 2011 Unknown COMPREHENSIVE METABOLIC 33982 POTASSIUM 4.3 MMOL/L 07/17 Unknown COMPREHENSIVE METABOLIC 54828 PROT TOT 6.9 GM/DL 2011 Unknown COMPREHENSIVE METABOLIC 83138 Glucose 102 MG/DL 2011 Unknown COMPREHENSIVE METABOLIC 19927 BICARB 27 MMOL/L 2011 Unknown COMPREHENSIVE METABOLIC 79091 ANION GAP 6 MEQ/L 2011 Unknown ERYTHROCYTE SEDIMENTATION RATE 75293 ESR 14 MM/HR 03/20/2012 Unknown LIP[facility] GROUP 25251 HDL TEST 31 MG/DL 03/20/2012 Unknown [facility] GROUP 76383 TRIG 210 MG/DL 03/20/2012 Unknown LIP[facility] GROUP 02275 TEST LDL 164 MG/DL 03/20/2012 Unknown LIP[facility] GROUP 48712 CHOL 237 MG/DL 03/20/2012 Unknown LIP[facility] GROUP 26977 RCHOL/HDL 7.65 RATIO 03/20/2012 Unknow n GFR CALC 5711905 GFR AA >60 ML/MIN 03/20/2012 Unknown GFR CALC 1438428 GFR NON-AA >60 ML/MIN 03/20/2012 Unknown C-REACTIVE PROTEIN (CRP) QUANT 87512 CRP 0.9 MG/DL 03/20/2012 Unknown COMPLETE BLOOD COUNT 03576 WBC 9.7 10e9/L 03/20/20 12 Unknown COMPLETE BLOOD COUNT 71153 RBC 5.14 10e12/L 2011 Unknown COMPLETE BLOOD COUNT 94117 HGB 15.5 g/dL 2 Unknown COMPLETE BLOOD COUNT 98606 HCT DET 46.9 % 2 Unknown COMPLETE BLOOD COUNT 65160 MCV 91.2 fL 2 Unknown COMPLETE BLOOD COUNT 72583 MCH 30.2 pg 2 Unknown COMPLETE BLOOD COUNT 99812 MCHC 33.0 g/dL 2 Unknown COMPLETE BLOOD COUNT 41556 PLT 280 10e9/L 03/20/20 12 Unknown COMPLETE BLOOD COUNT 33733 MPV 10.6 fL 2 Unknown COMPLETE BLOOD COUNT 60745 GIUSEPPE % 61.5 % 2 Unknown COMPLETE BLOOD COUNT 92792 LY % 26.5 % 2 Unknown COMPLETE BLOOD COUNT 79200 MON % 8.8 % 2 Unknown COMPLETE BLOOD COUNT 74867 EOS % 3.0 % 2 Unknown COMPLETE BLOOD COUNT 27026 BASO % 0.2 % 2 Unknown COMPLETE BLOOD COUNT 62297 RDW 15.3 % 2 Unknown COMPLETE BLOOD COUNT 26243 ABS GIUSEPPE 5.97 10e9/L 012 Unknown COMPLETE BLOOD COUNT 91959 ABS LYMPH 2.57 10e9/L 012 Unknown COMPLETE BLOOD COUNT 23071 ABS MONO 0.85 10e9/L 012 Unknown COMPLETE BLOOD COUNT 51208 ABS EOS 0.29 10e9/L 012 Unknown COMPLETE BLOOD COUNT 43231 ABS BASO 0.02 10e9/L 012 Unknown COMPLETE BLOOD COUNT 45720 RDW-SD 50.3 fL 2 Unknown COMPREHENSIVE METABOLIC 34698 AST 16 U/L 2011 Unknown COMPREHENSIVE METABOLIC 48892 ALT 21 IU/L 2011 Unknown COMPREHENSIVE METABOLIC 75121 BUN 15 MG/DL 2011 Unknown COMPREHENSIVE METABOLIC 11189 ALBUMIN 4.3 GM/DL 2011 Unknown COMPREHENSIVE METABOLIC 37526 CHLORIDE 102 MMOL/L 03/20 Unknown COMPREHENSIVE METABOLIC 19872 BILI TOT 0.5 MG/DL 2011 Unknown COMPREHENSIVE METABOLIC 58562 ALK PHOS 60 U/L 2011 Unknown COMPREHENSIVE METABOLIC 67035 SODIUM 135 MMOL/L 03/20 Unknown COMPREHENSIVE METABOLIC 47461 CREATININE 0.94 MG/DL 03/01 Unknown COMPREHENSIVE METABOLIC 34118 CALCIUM 9.0 MG/DL 2011 Unknown COMPREHENSIVE METABOLIC 79967 POTASSIUM 4.4 MMOL/L 03/20 Unknown COMPREHENSIVE METABOLIC 61011 PROT TOT 6.7 GM/DL 2011 Unknown COMPREHENSIVE METABOLIC 23023 Glucose 96 MG/DL 2011 Unknown COMPREHENSIVE METABOLIC 13035 BICARB 25 MMOL/L 2011 Unknown COMPREHENSIVE METABOLIC 24933 ANION GAP 8 MEQ/L 2011 [place] [address] PRO TIME 21.6 SEC 03/20/[place] [address] INR MCMC 1.8 03/20/2012 Unknow n Procedures Procedure Codes Date ROUTINE VENIPUNCTURE CPT-4: 64245 06/19/2018 ASSAY OF FREE THYROXINE CPT-4: 59137 06/19/2018 ASSAY THYROID STIM HORMONE CPT-4: 39289 06/19/2018 COMPREHEN METABOLIC PANEL CPT-4: 80022 06/19/2018 COMPLETE CBC W/AUTO DIFF WBC CPT-4: 89731 06/19/2018 LIPID PANEL CPT-4: 82294 06/19/2018 ASSAY OF PSA TOTAL CPT-4: 07745 06/19/2018 VITAMIN D TOTAL (25 HYDROXY) CPT-4: 70261 06/19/2018 VITAMIN B-12 CPT-4: 64109 06/19/2018 DEXAMETHASONE SODIUM PHOS CPT-4: J1100 08/31/2017 TRIAMCINOLONE ACET INJ NOS CPT-4: J3301 08/31/2017 DRAIN/INJECT JOINT/BURSA CPT-4: 16548 08/31/2017 ROUTINE VENIPUNCTURE CPT-4: 26199 08/01/2017 COMPREHEN METABOLIC PANEL CPT-4: 47859 08/01/2017 LIPID PANEL CPT-4: 76601 08/01/2017 DRAIN/INJECT JOINT/BURSA CPT-4: 49420 09/12/2016 TRIAMCINOLONE ACET INJ NOS CPT-4: J3301 09/12/2016 DEXAMETHASONE SODIUM PHOS CPT-4: J1100 09/12/2016 ROUTINE VENIPUNCTURE CPT-4: 48928 09/09/2016 ASSAY OF FREE THYROXINE CPT-4: 20001 09/09/2016 ASSAY THYROID STIM HORMONE CPT-4: 43855 09/09/2016 COMPREHEN METABOLIC PANEL CPT-4: 11610 09/09/2016 COMPLETE CBC W/AUTO DIFF WBC CPT-4: 11804 09/09/2016 LIPID PANEL CPT-4: 48476 09/09/2016 SPECIAL REPORTS OR FORMS CPT-4: 58504 08/05/2016 ROUTINE VENIPUNCTURE CPT-4: 41472 09/15/2015 COMPREHEN METABOLIC PANEL CPT-4: 04120 09/15/2015 LIPID PANEL CPT-4: 14992 09/15/2015 PRESCRIP TRANSMIT VIA ERX SY CPT-4: G8553 08/31/2015 ROUTINE VENIPUNCTURE CPT-4: 02828 04/14/2015 COMPREHEN METABOLIC PANEL CPT-4: 94844 04/14/2015 LIPID PANEL CPT-4: 94865 04/14/2015 ROUTINE VENIPUNCTURE CPT-4: 65656 11/10/2014 ASSAY OF FREE THYROXINE CPT-4: 54829 11/10/2014 ASSAY THYROID STIM HORMONE CPT-4: 80753 11/10/2014 COMPREHEN METABOLIC PANEL CPT-4: 62081 11/10/2014 COMPLETE CBC W/AUTO DIFF WBC CPT-4: 94034 11/10/2014 LIPID PANEL CPT-4: 43648 11/10/2014 ASSAY OF PSA TOTAL CPT-4: 63172 11/10/2014 ROUTINE VENIPUNCTURE CPT-4: 96601 04/29/2014 COMPREHEN METABOLIC PANEL CPT-4: 28800 04/29/2014 LIPID PANEL CPT-4: 89387 04/29/2014 ROUTINE VENIPUNCTURE CPT-4: 62045 12/18/2013 ASSAY OF FREE THYROXINE CPT-4: 68258 12/18/2013 ASSAY THYROID STIM HORMONE CPT-4: 19885 12/18/2013 COMPREHEN METABOLIC PANEL CPT-4: 12132 12/18/2013 COMPLETE CBC W/AUTO DIFF WBC CPT-4: 69281 12/18/2013 LIPID PANEL CPT-4: 60789 12/18/2013 ASSAY OF PSA TOTAL CPT-4: 63783 12/18/2013 ROUTINE VENIPUNCTURE CPT-4: 92896 07/17/2012 COMPREHEN METABOLIC PANEL CPT-4: 72584 07/17/2012 LIPID PANEL CPT-4: 95477 07/17/2012 ROUTINE VENIPUNCTURE CPT-4: 78222 03/20/2012 COMPLETE CBC W/AUTO DIFF WBC CPT-4: 64023 03/20/2012 RBC SED RATE AUTOMATED CPT-4: 10878 03/20/2012 C-REACTIVE PROTEIN CPT-4: 87749 03/20/2012 COMPREHEN METABOLIC PANEL CPT-4: 97084 03/20/2012 LIPID PANEL CPT-4: 52270 03/20/2012 PROTHROMBIN TIME CPT-4: 56044 03/20/2012 Vital Signs Date Vital 01/08/2020 Blood Pressure 1: 132/84 Code: 8480-6 BMI: 32.1 Code: 77187-5 Heart Rate 1: 56 bpm Height: 6'2" Respiratory Rate: 20 bpm SpO2: 94% Tempera ture: 36.6 (C) / 97.8 (F) Weight: 250 lbs 10/07/2019 Blood Pressure 1: 142/83 Code: 8480-6 BMI: 31.3 Code: 09816-2 Heart Rate 1: 80 bpm Height: 6'2" Respiratory Rate: 17 bpm SpO2: 99% Tempera ture: 36.7 (C) / 98.1 (F) Weight: 244 lbs 07/01/2019 Blood Pressure 1: 114/80 Code: 8480-6 BMI: 30.4 Code: 19943-9 Heart Rate 1: 72 bpm Height: 6'2" [...] 1: 126/82 Code: 8480-6 BMI: 31.2 Code: 19784-7 Heart Rate 1: 84 bpm Height: 6'2" Respiratory Rate: 20 bpm SpO2: 94% Tempera ture: 37.0 (C) / 98.6 (F) Weight: 243 lbs 03/02/2018 Blood Pressure 1: 122/80 Code: 8480-6 BMI: 30.8 Code: 13059-7 Heart Rate 1: 74 bpm Height: 6'2" Respiratory Rate: 20 bpm SpO2: 95% Tempera ture: 37.1 (C) / 98.8 (F) Weight: 240 lbs 08/31/2017 Blood Pressure 1: 136/90 Code: 8480-6 Heart Rate 1: 76 bpm Respiratory Rate: 20 bpm Temperature: 36.7 (C) / 98.0 (F) Weight: 247 lbs 07/18/2017 Blood Pressure 1: 126/78 Code: 8480-6 BMI: 31.3 Code: 77196-0 Heart Rate 1: 72 bpm Height: 6'2" Respiratory Rate: 20 bpm SpO2: 94% Tempera ture: 37.0 (C) / 98.6 (F) Weight: 244 lbs 04/24/2017 Blood Pressure 1: 152/92 Code: 8480-6 BMI: 31.1 Code: 15208-3 Heart Rate 1: 74 bpm Height: 6'2" Respiratory Rate: 18 bpm SpO2: 98% Tempera ture: 35.9 (C) / 96.6 (F) Weight: 242 lbs 01/04/2017 Blood Pressure 1: 122/70 Code: 8480-6 BMI: 30.4 Code: 09664-1 Heart Rate 1: 88 bpm Height: 6'2" Respiratory Rate: 20 bpm SpO2: 96% Tempera ture: 36.6 (C) / 97.8 (F) Weight: 237 lbs 09/12/2016 Blood Pressure 1: 136/78 Code: 8480-6 Heart Rate 1: 82 bpm Respiratory Rate: 22 bpm SpO2: 94% Temperature: 36.4 (C) / 97.6 (F) We ight: 234 lbs 09/07/2016 Blood Pressure 1: 122/70 Code: 8480-6 BMI: 30.0 Code: 80162-0 Heart Rate 1: 88 bpm Height: 6'2" Respiratory Rate: 20 bpm SpO2: 94% Tempera ture: 36.6 (C) / 97.9 (F) Weight: 234 lbs 08/31/2015 Blood Pressure 1: 142/94 Code: 8480-6 BMI: 28.9 Code: 38870-7 Heart Rate 1: 92 bpm Height: 6'2" Respiratory Rate: 20 bpm Temperature: 36 .9 (C) / 98.5 (F) Weight: 225 lbs 04/14/2015 Blood Pressure 1: 126/80 Code: 8480-6 BMI: 28.0 Code: 36482-5 Heart Rate 1: 76 bpm Height: 6'2" Respiratory Rate: 20 bpm Temperature: 36 .6 (C) / 97.8 (F) Weight: 218 lbs 10/07/2014 Blood Pressure 1: 128/76 Code: 8480-6 BMI: 28.6 Code: 04241-3 Heart Rate 1: 84 bpm Height: 6'2" Respiratory Rate: 22 bpm Temperature: 36 .6 (C) / 97.9 (F) Weight: 223 lbs 05/01/2014 Blood Pressure 1: 126/68 Code: 8480-6 BMI: 28.2 Code: 02335-8 Heart Rate 1: 84 bpm Height: 6'2" Respiratory Rate: 20 bpm Temperature: 36 .8 (C) / 98.3 (F) Weight: 220 lbs 12/17/2013 Blood Pressure 1: 136/82 Code: 8480-6 BMI: 29.6 Code: 02711-2 Heart Rate 1: 76 bpm Height: 6'1" Respiratory Rate: 20 bpm Temperature: 36 .8 (C) / 98.2 (F) Weight: 224 lbs 12/11/2012 Blood Pressure 1: 122/86 Code: 8480-6 BMI: 30.5 Code: 85486-3 Heart Rate 1: 76 bpm Height: 6'1" Respiratory Rate: 20 bpm SpO2: 93% Tempera ture: 36.8 (C) / 98.2 (F) Weight: 231 lbs 12/04/2012 Blood Pressure 1: 124/86 Code: 8480-6 BMI: 30.5 Code: 19093-8 Heart Rate 1: 68 bpm Height: 6'1" Respiratory Rate: 20 bpm SpO2: 95% Tempera ture: 36.6 (C) / 97.8 (F) Weight: 231 lbs 08/14/2012 Blood Pressure 1: 126/70 Code: 8480-6 BMI: 29.4 Code: 50938-3 Heart Rate 1: 80 bpm Height: 6'1" Respiratory Rate: 20 bpm Temperature: 36 .8 (C) / 98.3 (F) Weight: 223 lbs 07/17/2012 Blood Pressure 1: 124/82 Code: 8480-6 BMI: 29.7 Code: 23955-1 Heart Rate 1: 80 bpm Height: 6'1" Respiratory Rate: 20 bpm Temperature: 36 .8 (C) / 98.2 (F) Weight: 225 lbs 03/20/2012 Blood Pressure 1: 124/78 Code: 8480-6 BMI: 29.3 Code: 14501-4 Heart Rate 1: 72 bpm Height: 6'1" Respiratory Rate: 20 bpm Temperature: 36 .6 (C) / 97.8 (F) Weight: 222 lbs 12/08/2011 Blood Pressure 1: 112/64 Code: 8480-6 BMI: 28.2 Code: 87766-3 Heart Rate 1: 78 bpm Height: 6'1" Temperature: 36.3 (C) / 97.4 (F) Weight: 214 lbs 08/11/2011 Blood Pressure 1: 128/70 Code: 8480-6 BMI: 27.6 Code: 14061-6 Heart Rate 1: 76 bpm Height: 6'1" [...] up 07/18/2017 follow up 04/24/2017 Last Medication Elaine toring Urine 01/06/2017 follow up 01/04/2017 follow [...] it Encounters Encounter Performer Location Codes Date ([id number]) OFFICE/OUTPATIENT VISIT EST Diagnosis: Other intervertebral disc degeneration, 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] Diagnosis: Lipoma[ICD10: D17.9] Martita Black [employer] CPT-4: 29870 01/08/2020 ([id number]) OFFICE/OUTPATIENT VISIT EST Diagnosis: COPD (chronic obstructive pulmonary disease)[ICD10: J44.9] Diagnosis: Mixed hyperlipidemia[ICD10: E78.2] Diagnosis: Coronary artery disease[ICD10: I25.10] Diagnosis: 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: G57.92] Martita GARCIA [employer] CPT-4: 78885 10/07/2019 ([id number]) OFFICE/OUTPATIENT VISIT EST Diagnosis: Cephalgia[ICD10: R51] Diagnosis: Family history of brain aneurysm[ICD10: Z82.49] Diagnosis: Other intervertebral disc degeneration, 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] Martita José Miguelfelix MCGOVERN Sofia SIMONS [employer] CPT-4: 19768 07/01/2019 ([id number]) OFFICE/OUTPATIENT VISIT EST Diagnosis: Atherosclerotic heart disease of [place] coronary artery without angina pectoris[ICD10: I25.10] Diagnosis: Bilateral primary osteoarthritis of knee[ICD10: M17.0] Diagnosis: Nicotine dependence, unspecified, uncomplicated[ICD10: F17.200] Diagnosis: Mixed hyperlipidemia[ICD10: E78.2] Martita RENTERIA [employer] CPT-4: 74246 03/27/2019 ([id number]) OFFICE/OUTPATIENT VISIT EST Diagnosis: Mixed hyperlipidemia[ICD10: E78.2] Diagnosis: Atherosclerotic heart disease of [place] coronary artery without angina pectoris[ICD10: I25.10] Diagnosis: Other intervertebral disc degeneration, 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] Martita MCGOVERN [employer] CPT-4: 88631 12/25/2018 ([id number]) OFFICE/OUTPATIENT VISIT EST Diagnosis: Mixed hyperlipidemia[ICD10: E78.2] Diagnosis: Other fatigue[ICD10: R53.83] Diagnosis: Encounter for screening for malignant neoplasm of prostate[ICD10: Z12.5] Diagnosis: Primary osteoarthritis, 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 [employer] CPT-4: 53042 03/02/2018 ([id number]) OFFICE/OUTPATIENT VISIT EST Diagnosis: Mixed hyperlipidemia[ICD10: E78.2] Martita RENTERIA [employer] CPT-4: 46580 08/01/2017 ([id number]) OFFICE/OUTPATIENT VISIT EST Diagnosis: Other spondylosis with radiculopathy, cervical region[ICD10: M47.22] Diagnosis: Pain in 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: M25.531] Diagnosis: Mixed hyperlipidemia[ICD10: E78.2] Diagnosis: 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] Martita SIMONS [employer] [facility] CPT-4: 9921 3 07/18/2017 ([id number]) OFFICE/OUTPATIENT VISIT EST Diagnosis: Other intervertebral disc degeneration, 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] Diagnosis: Cervicalgia[ICD10: M54.2] Martita YOUNG [employer] [facility] CPT-4: 89629 04/24/2017 ([id number]) OFFICE/OUTPATIENT VISIT EST Diagnosis: Cervicalgia[ICD10: M54.2] Diagnosis: Other intervertebral disc degeneration, 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] Diagnosis: Mixed hyperlipidemia[ICD10: E78.2] Martita Kristyn SIMONS [employer] CPT-4: 38527 01/04/2017 ([id number]) OFFICE/OUTPATIENT VISIT EST Diagnosis: Mixed hyperlipidemia[ICD10: E78.2] Diagnosis: Encounter for general adult medical examination with abnormal findings[ICD10: Z00.01] Martita SIMONS [employer] CPT-4: 67826 09/09/2016 ([id number]) PREV VISIT EST AGE 40-64 Diagnosis: Mixed hyperlipidemia[ICD10: E78.2] Diagnosis: Nicotine dependence, unspecified, uncomplicated[ICD10: F17.200] Diagnosis: Chronic obstructive pulmonary disease with acute lower respiratory infection[ICD10: J44.0] Diagnosis: Bilateral primary osteoarthritis of knee[ICD10: M17.0] Diagnosis: Pain in thoracic spine[ICD10: M54.6] Diagnosis: Pain in 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: M25.531] Diagnosis: Encounter for general adult medical examination with abnormal findings[ICD10: Z00.01] Martita José Migueljessiejoellen FERRARAMARTITA Sofia SIMONS [employer] CPT-4: 76711 09/07/2016 ([id number]) OFFICE/OUTPATIENT VISIT EST Diagnosis: Mixed hyperlipidemia[ICD10: E78.2] Martita SIMONS [employer] CPT-4: 64674 09/15/2015 ([id number]) OFFICE/OUTPATIENT VISIT EST Diagnosis: Acute bronchitis, unspecified[ICD10: J20.9] Diagnosis: Chronic obstructive pulmonary disease with acute lower respiratory infection[ICD10: J44.0] Diagnosis: Lumbago with sciatica, right side[ICD10: M54.41] Martita SIMONS DO [employer] CPT-4: 47726 08/31/2015 ([id number]) OFFICE/OUTPATIENT VISIT EST Diagnosis: HYPERLIPIDEMIA NEC/NOS[ICD9: 272.4] Diagnosis: TOBACCO USE DISORDER[ICD9: 305.1] Diagnosis: Osteoarthritis, knee[ICD9: 715.96] Diagnosis: Chronic back pain[ICD9: 724.5] Martita SIMONS DO [employer] CPT-4: 44238 04/14/2015 ([id number]) OFFICE/OUTPATIENT VISIT EST Diagnosis: HYPERLIPIDEMIA NEC/NOS[ICD9: 272.4] Diagnosis: COPD[ICD9: 496] Diagnosis: ROUTINE MEDICAL EXAM[ICD9: V70.0] Martita SIMONS DO [employer] CPT-4: 34073 11/10/2014 ([id number]) OFFICE/OUTPATIENT VISIT EST Diagnosis: Wrist pain[ICD9: 719.43] Diagnosis: Knee osteoarthritis[ICD9: 715.96] Diagnosis: Chronic back pain[ICD9: 724.5] Martita SIMONS DO [employer] CPT-4: 77890 10/07/2014 ([id number]) OFFICE/OUTPATIENT VISIT EST Diagnosis: HYPERLIPIDEMIA NEC/NOS[ICD9: 272.4] Diagnosis: Chronic back pain[ICD9: 724.5] Diagnosis: OSTEOARTH NOS-L/LEG[ICD9: 715.96] Martita SIMONS [employer] CPT-4: 19684 05/01/2014 ([id number]) OFFICE/OUTPATIENT VISIT EST Diagnosis: HYPERLIPIDEMIA NEC/NOS[ICD9: 272.4] Martita SIMONS [place] [facility] CPT-4: 83583 04/29/2014 ([id number]) OFFICE/OUTPATIENT VISIT EST Diagnosis: ROUTINE MEDICAL EXAM[ICD9: V70.0] Diagnosis: HYPERLIPIDEMIA NEC/NOS[ICD9: 272.4] Martita SIMONS DO [facility] CPT-4: 54758 12/18/2013 OFFICE/OUTPATIENT VISIT EST Diagnosis: HYPERLIPIDEMIA NEC/NOS[ICD9: 272.4] Diagnosis: COPD[ICD9: 496] Diagnosis: Knee pain[ICD9: 719.46] Diagnosis: Wrist pain[ICD9: 719.43] Martita LAMAR [facility] CPT-4: 82555 12/17/2013 OFFICE/OUTPATIENT VISIT EST Diagnosis: COPD W/ ACUTE EXACERB[ICD9: 491.21] Diagnosis: COUGH[ICD9: 786.2] Martita SIMONS [place] [facility] CPT-4: 50436 12/11/2012 ([id number]) OFFICE/OUTPATIENT VISIT EST Diagnosis: BRONCHITIS, ACUTE[ICD9: 466.0] Diagnosis: COPD exacerbation[ICD9: 491.21] Martita SIMONS DO [facility] CPT-4: 50548 12/04/2012 ([id number]) OFFICE/OUTPATIENT VISIT EST Diagnosis: DERMATITIS NOS[ICD9: 692.9] Diagnosis: TOBACCO USE DISORDER[ICD9: 305.1] Martita FERRARALIN Genaro SIMONS [place] [facility] CPT-4: 05367 08/14/2012 ([id number]) OFFICE/OUTPATIENT VISIT EST Diagnosis: TOBACCO USE DISORDER[ICD9: 305.1] Diagnosis: PAIN, LOWER BACK[ICD9: 724.2] Diagnosis: PAIN IN THORACIC SPINE[ICD9: 724.1] Diagnosis: DERMATITIS NOS[ICD9: 692.9] Diagnosis: HYPERLIPIDEMIA NEC/NOS[ICD9: 272.4] Martita SIMONS [employer] CPT-4: 72262 07/17/2012 ([id number]) OFFICE/OUTPATIENT VISIT EST Diagnosis: HYPERLIPIDEMIA NEC/NOS[ICD9: 272.4] Diagnosis: OSTEOARTH NOS-L/LEG[ICD9: 715.96] Diagnosis: JOINT PAIN-L/LEG[ICD9: 719.46] Diagnosis: AC EMBL SUPRFCL UP EXT[ICD9: 453.81] Martita FISCHER Sofia AGUIRRENDJOELLEN [employer] CPT-4: 49411 03/20/2012 ([id number]) OFFICE/OUTPATIENT VISIT EST Diagnosis: PAIN, LOWER BACK[ICD9: 724.2] Diagnosis: Superficial venous thrombosis of arm[ICD9: 453.81] Diagnosis: Trigger finger, left[ICD9: 727.03] Martita RENTERIA SSohail AGUIRRENDJOELLEN [employer] CPT-4: 21463 12/08/2011 OFFICE/OUTPATIENT VISIT EST Diagnosis: Knee pain[ICD9: 719.46] Diagnosis: Knee osteoarthritis[ICD9: 715.96] Diagnosis: Thoracic back pain[ICD9: 724.1] Diagnosis: HYPERLIPIDEMIA NEC/NOS[ICD9: 272.4] Martita MOROCHO SSohail AGUIRRENDER [employer] CPT-4: 24666 08/11/2011 ([id number]) OFFICE/OUTPATIENT VISIT, NEW Martita HULL SSohail [employer] CPT-4: 85955 05/26/2010 Plan of Care Planned Activity Notes [...] E78.2 10/07/2019 Appointment: Martita Simons WPtel: [phone] [facility] [place] MEDICATION REVIEW 10/07/2019 Visit Diagnosis Plan: Other intervertebral disc degene ration, lumbar region Discussion: Stable on hydrocodone Add Vitamin D3 2000u daily Follow Up: 3 months ICD-9 : 722.52 ICD-10 : M51.36 07/01/2019 Visit Diagnosis Plan: Cephalgia Discussion: Discussed CT angiogram to rule out aneurysm but patient defers due to cost ICD-9 : 784.0 ICD-10 : R51 07/01/2019 Appointment: Martita Simonstel: [address] [place], [place] [phone] MEDICATION REVIEW 07/01/2019 Visit Diagnosis Plan: Mixed hyperlipidemia Discussion: Had lab done in December with Cardiology ICD-9 : 272.4 ICD-10 : E78.2 03/27/2019 Visit Diagnosis Plan: Nicotine dependence, unspecified , uncomplicated Discussion: Smoking cessation ICD-9 : 305.1 ICD-10 : F17.200 03/27/2019 Visit Diagnosis Plan: Atherosclerotic he art disease of [place] coronary artery without angina pectoris Discussion: Discussed cardiac rehab vs p ulmonary rehab Follow Up: 3 months ICD-9 : 414.00 ICD-10 : I25.10 03/27/2019 Appointment: Martita Simonstel: [address] [place], [place] [phone] MEDICATION REVIEW 03/27/2019 Visit Diagnosis Plan: Other intervertebral disc degene ration, lumbar region Discussion: Stable on hydrocodone UDS done Follow Up: 3 months ICD-9 : 722.52 ICD-10 : M51.36 12/25/2018 Visit Diagnosis Plan: Atherosclerotic he art disease of [place] coronary artery without angina pectoris Discussion: Smoking Cessation Continue c urrent meds and fwup with cardiology ICD-9 : 414.00 ICD-10 : I25.10 12/25/2018 Appointment: Martita Simonstel: [address] [place], [place] [phone] MEDICATION REVIEW 12/25/2018 Appointment: Martita Simonstel: [address] [place], [place] [phone] OFFICE SURGERY 08/22/2018 Visit Diagnosis Plan: Pain [...] : M19.031 06/19/2018 Appointment: Martita Simons WPtel: [address] [place] [address] MEDICATION REVIEW 06/19/2018 Appointment: Martita Simons WPtel: [address] [place], [place] [phone] [place] CANCELED 06/05/2018 Appointment: Martita Simons WPtel: [address] [place], [place] [phone] [place] CANCELED 05/08/2018 Visit Diagnosis Plan: Pain in left knee Discussion: se e other plan ICD-9 : 719.46 ICD-10 : M25.562 03/02/2018 Visit Diagnosis Plan: Encounter for therapeutic drug l evel monitoring Discussion: up to date on [facility] drug screen. ICD-9 : V58.83 ICD-10 : Z51.81 03/02/2018 Visit Diagnosis Plan: Pain in right wrist Discussion: stable with current medications. follow up in 4 months or sooner if anything changes. continue with voltaren gel as needed as well. ICD-9 : 719.43 ICD-10 : M25.531 03/02/2018 Visit Diagnosis Plan: Pain in right knee Discussion: s ee other plan ICD-9 : 719.46 ICD-10 : M25.561 03/02/2018 Appointment: Marian Juares [address] [place] [address] MEDICATION REVIEW 03/02/2018 Patient Education: Patient Medication Summary Completed 03/02/2018 Appointment: Martita Simons WPtel: [address] [place] [address] UA 02/01/2018 Patient Education: Patient Medication Summary Completed 02/01/2018 Visit Diagnosis Plan: Other synovitis and tenosynoviti s, right hand Discussion: Right wrist cleansed with alcohol and betadine and injected laterally with 1cc 1% lidocaine with 20mg kenalog and 2mg dexamethasone, tolerated well with no complications, neosporin and bandage applied ICD-9 : 727.05 ICD-10 : M65.841 08/31/2017 Appointment: Martita Simons WPtel: [address] [place] [address] ACUTE ILLNESS 08/31/2017 Patient Education: Patient Medication Summary Completed 08/31/2017 Appointment: Martita Simons WPtel: [address] [place] [address] LAB 08/01/2017 Patient Education: Patient Medication Summary Completed 08/01/2017 Visit Diagnosis Plan: Mixed hyperlipidemia Discussion: Check CMP, Lipids but needs to be fasting ICD-9 : 272.4 ICD-10 : E78.2 07/18/2017 Visit Diagnosis Plan: Benign lipomatous neoplasm of [...] ICD-9 : 721.0 ICD-10 : M47.22 07/18/2017 Appointment: Martita Simons WPtel: [address] [place], [place] [phone] MEDICATION REVIEW 07/18/2017 Patient Education: Patient Medication Summary Completed 07/18/2017 Visit Diagnosis Plan: Cervicalgia Discussion: Continue PT then fwup after done with PT ICD-9 : 723.1 ICD-10 : M54.2 04/24/2017 Visit Diagnosis Plan: Other intervertebral disc degene ration, lumbar region Discussion: Add PT For lumbar spine ICD-9 : 722.52 ICD-10 : M51.36 04/24/2017 Appointment: Martita Simons WPtel: [address] [place], [place] [phone] [place] MEDICATION REVIEW 04/24/2017 Patient Education: Patient Medication Summary Completed 04/24/2017 Patient Education: Patient Medication Summary Completed 03/22/2017 Care Plan: MRI NECK SPINE W/O DYE LOINC : 62228-8 Pending 03/22/2017 Visit Diagnosis Plan: Mixed hyperlipidemia Discussion: Patient has stopped smoking Will continue with lifestyle change and check lipids with fwup in 3mos ICD-9 : 272.4 ICD-10 : E78.2 01/04/2017 Visit Diagnosis Plan: Cervicalgia Discussion: Daily st retches/Traction ICD-9 : 723.1 ICD-10 : M54.2 01/04/2017 Visit Diagnosis Plan: Other intervertebral disc degene ration, lumbar region Discussion: Continue hydrocodone at current dose UDS monitoring Lock up pain meds Follow Up: 3 months ICD-9 : 722.52 ICD-10 : M51.36 01/04/2017 Appointment: Martita Simons WPtel: [address] [place], [place] [phone] [place] 01/03 lm`sl 01/03-Confirmed MEDICATION REVIEW 01/04/2017 Patient Education: Patient Medication Summary Completed 01/04/2017 Visit Diagnosis Plan: Other enthesopathies, not elsewh ere classified Discussion: Right wrist injection as above ICD-9 : 727.05 ICD-10 : M77.8 09/12/2016 Visit Diagnosis Plan: Mixed hyperlipidemia Discussion: Lab discussed Restart lipitor/lifestyle change ICD-9 : 272.4 ICD-10 : E78.2 09/12/2016 Appointment: Martita Simons WPtel: [address] [place] [phone] [place] 09/12 confirmed `sl INJECTION 09/12/2016 Patient Education: Patient Medication Summary Completed 09/12/2016 Appointment: Martita Simons WPtel: [address] [place], [place] [phone] [place] LAB 09/09/2016 Patient Education: Patient Medication Summary Completed 09/09/2016 Visit Diagnosis Plan: Nicotine dependence, unspecified , uncomplicated Discussion: Tobacco Abuse ICD-9 : 305.1 ICD-10 : F17.200 09/07/2016 Visit Diagnosis Plan: Chronic obstructiv e pulmonary disease with acute lower respiratory infection Discussion: Smoking Cessation Symbicort Check CXR ICD-9 : 496 ICD-10 : J44.0 09/07/2016 Visit Diagnosis Plan: Encounter for gene [facility] adult medical examination with abnormal findings Discussion: Update fasting lab Follow Up: 4 months ICD-9 : V70.0 ICD-10 : Z00.01 09/07/2016 Visit Diagnosis Plan: Mixed hyperlipidemia Discussion: Check CMP, Lipids ICD-9 : 272.4 ICD-10 : E78.2 09/07/2016 Visit Diagnosis Plan: Pain in right wrist Discussion: Will return for wrist injection ICD-9 : 719.43 ICD-10 : M25.531 09/07/2016 Appointment: Martita Simons WPtel: [address] [place] [address] 09/06 confirmed~sl Annual Well Visit 09/07/2016 Patient Education: Patient Medication Summary Completed 09/07/2016 Care Plan: CHEST X-RAY 2VW FRONTAL&LATL LOINC : 93465-0 Pending 09/07/2016 Visit Plan: Filled out [place] license of [facility] Insurance Paperwork 08/05/2016 Patient Education: Patient Medication Summary Completed 08/05/2016 Appointment: Martita Simons WPtel: [address] [place], [place] [phone] [place] UA 04/25/2016 Patient Education: Patient Medication Summary Completed 04/25/2016 Appointment: Martita Simons WPtel: [address] [place], [place] [phone] [place] LAB 09/15/2015 Patient Education: Patient Medication Summary Completed 09/15/2015 Visit Plan: SVN with Albuterol 0.083% Q4 hrs and Q2hrs prn. Supportive care. Rest, Fluids, Tylenol/Motrin prn fever or bodyaches. Notify if worsening symptoms. Daily back stretches, moist heat, Biofreeze prn Flexeril/Prednisone Notify if low back pain persists--will need x-rays Patient seeing Chiropracter [employer] 08/31/2015 Appointment: Martita Simonstel: [address] [place], [place] [phone] 08/28/15 vm cn 08/28/15 appt confirmed cn FOLLOW UP 08/31/2015 Patient Education: Patient Medication Summary Completed 08/31/2015 Appointment: Martita Simons WPtel: [address] [place], [place] [phone] UA 07/29/2015 Visit Plan: CMP, Lipids today Patient st opped chol meds 1week ago Continue hydrocodone 04/14/2015 Appointment: Martita Simons WPtel: [address] [place], [place] [phone] FOLLOW UP 04/14/2015 Patient Education: Patient Medication Summary Completed 04/14/2015 Appointment: Martita Simonstel: [address] [place], [place] [phone] LAB 11/10/2014 Patient Education: Patient Medication Summary Completed 11/10/2014 Visit Plan: Fasting lab at end of September for Lipids/LFTs Continue hydrocodone at current dose Needs to be on low dose asprin 81mg daily With upcoming trip need to stop every 2hours and get out and stretch 10/07/2014 Appointment: Martita Simonstel: [address] [place], [place] [phone] [place] FOLLOW UP 10/07/2014 Patient Education: Patient Medication Summary Completed 10/07/2014 Visit Plan: Lab discussed Will keep meds the same Keep hydrocodone at current dose--discussed schedule change on May 05 05/01/2014 Appointment: Martita Simons WPtel: [address] [place], [place] [phone] 04/29 confirmed when in for labs; asked if he still wanted a reminder call on Monday and he said no he would be here. FOLLOW UP 05/01/2014 Patient Education: Patient Medication Summary Completed 05/01/2014 Appointment: Martita Simons WPtel: [address] [place], [place] [phone] LAB 04/29/2014 Patient Education: Patient Medication Summary Completed 04/29/2014 Appointment: Martita Simons WPtel: [address] [place] [address] LAB 12/18/2013 Patient Education: Patient Medication Summary Completed 12/18/2013 Appointment: Martita Simons WPtel: [address] [place] [address] 12/16 FOLLOW UP 12/17/2013 Patient Education: Patient Medication Summary Completed 12/17/2013 Visit Plan: Check CXR Start SVNs with al buterol 0.083% QID 12/11/2012 Appointment: Martita Simonstel: [address] [place] [address] FOLLOW UP 12/11/2012 Patient Education: Patient Medication Summary Completed 12/11/2012 Visit Plan: Zithromax for 1wk Prednisone for 1wk Symbicort 160/4.5 2p BID 12/04/2012 Appointment: Martita Simons WPtel: [address] [place] [address] ACUTE ILLNESS 12/04/2012 Patient Education: Patient Medication Summary Completed 12/04/2012 Visit Plan: Continue nystatin/TAC cream and add Lamisil for next month No lipitor for next month If rash persists then will need biopsy Trial of chantix--warned of suicidal ideation/depression Call in 1mo on finger lesion and chantix 08/14/2012 Appointment: Martita Simons WPtel: [facility] [place] 08/13 no answer...08/13 pt called back and confirmed OFFICE SURGERY 08/14/2012 Patient Education: Patient Medication Summary Completed 08/14/2012 Appointment: Martita Simons WPtel: [address] [place], [place] [phone] FOLLOW UP 07/17/2012 Patient Education: Patient Medication Summary Completed 07/17/2012 Appointment: Martita Simons WPtel: [address] [place], [place] [phone] [place] Appointment was confirmed by CN on 06/29 07/04 pt called, in family, was in [place] just got yash k 07/03 - [facility] ACUTE ILLNESS 07/02/2012 Visit Plan: Obtain US results of RUE DC coumadin as has been 3mos and start Aspirin 325mg daily Check CMP, Lipids, CBC, ESR, CRP today 03/20/2012 Appointment: Martita Simons WPtel: [address] [place], [place] [phone] FOLLOW UP 03/20/2012 Patient Education: Patient Medication Summary Completed 03/20/2012 Appointment: Martita Simons WPtel: [address] [place], [place] [phone] Patient called 2 hours past appt. Said saw a specialist today and specialist is not concerned about blod clot so doesnt want to reschedule-CN FOLLOW UP 12/14/2011 Appointment: Martita Simons WPtel: [address] [place], [place] [phone] [place] FOLLOW UP 12/13/2011 Visit Plan: Continue coumadin--IM is fol lowing level--discussed will likely need 6-12wks Observe contusion to right lower back Fwup with ortho as scheduled 12/08/2011 Appointment: Martita Simons WPtel: [address] [place], [place] [phone] ACUTE ILLNESS 12/08/2011 Patient Education: Patient Medication Summary Completed 12/08/2011 Visit Plan: Check fasting lab when goes for pre-op lab including CMP, CBC, Lipids, TSH, Free T4, PSA, uric acid Needs colonoscopy Hydrocodone refilled #80 to [facility] 08/11/2011 Appointment: Martita Simons WPtel: [phone] [facility] ESTABLISHED PATIENT 08/11/2011 Patient Education: Patient Medication Summary Completed 08/11/2011 Visit Plan: Obtain most recent lab resul ts Cont current meds Explained that cannot refill pain meds without current rx Discussed Synvisc injections and see ortho as oxycontin for knee arthritis is strong pain med 05/26/2010 Appointment: Martita Simons WPtel: [phone] [facility] [place] NEW PATIENT 05/26/2010 Patient Education: Patient Medication Summary Completed 05/26/2010 Instructions Comment . Filled out [employer] Paperwork . SVN with Albuterol 0.083% Q4hrs [...] acid Needs colonoscopy Hydrocodone refilled #80 to [facility] . Obtain most recent lab results Cont [...]
--- OUTSIDE RECORDS SUMMARY | 2020-01-12 17:35 | XMS REPORT | CCD ---
Author Author Syd Simons D.O. Organization 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 Name Role Phone Martita Simons D.O., PP Unavailable CCM Unavailable Summary Purpose Interface Exchange Insurance Providers Payer name Policy type / Coverage type Covered alliance party ID Effective Begin Date Effective End Date [facility] Commercial Insurance [id number] Unknown Family history Brother Diagnosis Age At Onset No Family Disease Entered N/A Father Diagnosis Age At Onset No Family Disease Entered N/A Mother Diagnosis Age At Onset No Family Disease Entered N/A Social History Social History Element Codes Description Effective Dates Tobacco history SNOMED CT: 82189609 Current every day smoker 06/2012 Number of [...] Active Co Q-10 100 mg capsule RxNorm: 357031 1 Capsule(s) Oral QD 01/08/20 20 No Stop Date Active Zyrtec 10 mg tablet RxNorm: 5393128 1 Tablet(s) Oral QD 01/08/2020 No Stop Date Active hydrocodone 10 mg-acetaminophen 325 mg tablet RxNorm: 450206 1 Tablet(s) Oral Q6H as needed for pain 12/26/2019 12/26/2019 Inactive (Response to an electronic controlled substance refill request - RxReferenceNumber: [id number]|1|0|1) hydrocodone 10 mg-acetaminophen 325 mg tablet RxNorm: 080022 1 Tablet(s) Oral Q6H as needed for pain 11/25/2019 11/25/2019 Inactive (Response to an electronic controlled substance refill request - RxReferenceNumber: [id number]|1|0|1) metoprolol succinate ER 25 mg tablet,extended release 24 hr RxNorm: 714863 1 Tablet(s) Oral QD 10/28/2019 10/28/2019 Inactive hydrocodone 10 mg-acetaminophen 325 mg tablet RxNorm: 469147 1 Tablet(s) PO Q6H as needed for pain 10/24/2019 11/24/2019 Inactive (Response to an electronic controlled substance refill request - RxReferenceNumber: [id number]|1|0|1) hydrocodone 10 mg-acetaminophen 325 mg tablet RxNorm: 200204 1 Tablet(s) PO Q6H as needed for pain 09/26/2019 10/23/2019 Inactive (Response to an electronic controlled substance refill request - RxReferenceNumber: [id number]|1|0|1) hydrocodone 10 mg-acetaminophen 325 mg tablet RxNorm: 369489 1 Tablet(s) PO Q6H as needed for pain 08/26/2019 09/25/2019 Inactive (Response to an electronic controlled substance refill request - RxReferenceNumber: [id number]|1|0|1) hydrocodone 10 mg-acetaminophen 325 mg tablet RxNorm: 014280 1 Tablet(s) PO Q6H as needed for pain 07/25/2019 08/25/2019 Inactive (Response to an electronic controlled substance refill request - RxReferenceNumber: [id number]|1|0|1) hydrocodone 10 mg-acetaminophen 325 mg tablet RxNorm: 560210 1 Tablet(s) PO Q6H as needed for pain 06/26/2019 07/24/2019 Inactive (Response to an electronic controlled substance refill request - RxReferenceNumber: [id number]|1|0|1) hydrocodone 10 mg-acetaminophen 325 mg tablet RxNorm: 093317 1 Tablet(s) PO Q6H as needed for pain 05/28/2019 06/25/2019 Inactive (Response to an electronic controlled substance refill request - RxReferenceNumber: [id number]|1|0|1) hydrocodone 10 mg-acetaminophen 325 mg tablet RxNorm: 157623 1 Tablet(s) PO Q6H as needed for pain 02/25/2019 05/27/2019 Inactive (Response to an electronic controlled substance refill request - RxReferenceNumber: [id number]|1|0|1) hydrocodone 10 mg-acetaminophen 325 mg tablet RxNorm: 978131 1 Tablet(s) PO Q6H as needed for pain 11/26/2018 02/24/2019 Inactive (Response to an electronic controlled substance refill request - RxReferenceNumber: [id number]|1|0|1) hydrocodone 10 mg-acetaminophen 325 mg tablet RxNorm: 072616 1 Tablet(s) PO Q6H as needed for pain 10/30/2018 11/25/2018 Inactive (Response to an electronic controlled substance refill request - RxReferenceNumber: [id number]|1|0|1) hydrocodone 10 mg-acetaminophen 325 mg tablet RxNorm: 924723 1 Tablet(s) PO Q6H as needed for pain 09/26/2018 10/29/2018 Inactive (Response to an electronic controlled substance refill request - RxReferenceNumber: [id number]|1|0|1) hydrocodone 10 mg-acetaminophen 325 mg tablet RxNorm: 555235 1 Tablet(s) PO Q6H as needed for pain 08/30/2018 09/25/2018 Inactive (Response to an electronic controlled substance refill request - RxReferenceNumber: [id number]|1|0|1) hydrocodone 10 mg-acetaminophen 325 mg tablet RxNorm: 094937 1 Tablet(s) PO Q6H as needed for pain 08/01/2018 08/29/2018 Inactive (Response to an electronic controlled substance refill request - RxReferenceNumber: [id number]|1|0|1) hydrocodone 10 mg-acetaminophen 325 mg tablet RxNorm: 245701 1 Tablet(s) PO Q6H as needed for pain 07/04/2018 07/31/2018 Inactive (Response to an electronic controlled substance refill request - RxReferenceNumber: [id number]|1|0|1) hydrocodone 10 mg-acetaminophen 325 mg tablet RxNorm: 163445 1 Tablet(s) PO Q6H as needed for pain 05/31/2018 07/03/2018 Inactive (Response to an electronic controlled substance refill request - RxReferenceNumber: [id number]|1|0|1) hydrocodone 10 mg-acetaminophen 325 mg tablet RxNorm: 785519 1 Tablet(s) PO Q6H as needed for pain 05/01/2018 05/30/2018 Inactive (Response to an electronic controlled substance refill request - RxReferenceNumber: [id number]|1|0|1) hydrocodone 10 mg-acetaminophen 325 mg tablet RxNorm: 151060 1 Tablet(s) PO Q6H as needed for pain 04/03/2018 04/30/2018 Inactive (Response to an electronic controlled substance refill request - RxReferenceNumber: [id number]|1|0|1) hydrocodone 10 mg-acetaminophen 325 mg tablet RxNorm: 834734 1 Tablet(s) PO Q6H as needed for pain 02/26/2018 04/02/2018 Inactive (Response to an electronic controlled substance refill request - RxReferenceNumber: [id number]|1|0|1) clotrimazole-betamethasone 1 %-0.05 % topical cream RxNorm: 197003 TOP As Directed CALL IF NO IMPROVEMENT IN 2 WEEKS 01/30/2018 01/29/2018 Inact kole [SAVINGS FOR UNINSURED PATIENTS -- BIN:[id number], PCN: [id number], Group: [id number], ID# [id number], Process claim through [email or web address], for questions: . THIS IS NOT INSURANCE.] hydrocodone 10 mg-acetaminophen 325 mg tablet RxNorm: 784539 1 Tablet(s) PO Q6H as needed for pain 01/29/2018 02/25/2018 Inactive (Response to an electronic controlled substance refill request - RxReferenceNumber: [id number]|1|0|1) hydrocodone 10 mg-acetaminophen 325 mg tablet RxNorm: 570466 1 Tablet(s) PO Q6H as needed for pain 12/28/2017 01/28/2018 Inactive (Response to an electronic controlled substance refill request - RxReferenceNumber: [id number]|1|0|1) hydrocodone 10 mg-acetaminophen 325 mg tablet RxNorm: 156835 1 Tablet(s) PO Q6H as needed for pain 11/29/2017 12/27/2017 Inactive (Response to an electronic controlled substance refill request - RxReferenceNumber: [id number]|1|0|1) hydrocodone 10 mg-acetaminophen 325 mg tablet RxNorm: 545955 1 Tablet(s) PO Q6H as needed for pain 11/02/2017 11/28/2017 Inactive (Response to an electronic controlled substance refill request - RxReferenceNumber: [id number]|1|0|1) hydrocodone 10 mg-acetaminophen 325 mg tablet RxNorm: 588371 1 Tablet(s) PO Q6H as needed for pain 10/02/2017 11/01/2017 Inactive (Response to an electronic controlled substance refill request - RxReferenceNumber: [id number]|1|0|1) hydrocodone 10 mg-acetaminophen 325 mg tablet RxNorm: 056002 1 Tablet(s) PO Q6H as needed for pain 08/30/2017 10/01/2017 Inactive (Response to an electronic controlled substance refill request - RxReferenceNumber: [id number]|1|0|1) hydrocodone 10 mg-acetaminophen 325 mg tablet RxNorm: 818319 1 Tablet(s) PO Q6H as needed for pain 08/01/2017 08/29/2017 Inactive (Response to an electronic controlled substance refill request - RxReferenceNumber: [id number]|1|0|1) hydrocodone 10 mg-acetaminophen 325 mg tablet RxNorm: 638444 1 Tablet(s) PO Q6H as needed for pain 06/26/2017 07/31/2017 Inactive (Response to an electronic controlled substance refill request - RxReferenceNumber: [id number]|1|0|1) hydrocodone 10 mg-acetaminophen 325 mg tablet RxNorm: 169761 1 Tablet(s) PO Q6H as needed for pain 06/26/2017 06/30/2019 Inactive (Response to an electronic controlled substance refill request - RxReferenceNumber: [id number]|1|0|1) hydrocodone 10 mg-acetaminophen 325 mg tablet RxNorm: 606381 1 Tablet(s) PO Q6H as needed for pain 03/27/2017 06/25/2017 Inactive (Response to an electronic controlled substance refill request - RxReferenceNumber: [id number]|1|0|1) hydrocodone 10 mg-acetaminophen 325 mg tablet RxNorm: 609360 1 Tablet(s) PO Q6H as needed for pain 02/23/2017 03/26/2017 Inactive (Response to an electronic controlled substance refill request - RxReferenceNumber: [id number]|1|0|1) hydrocodone 10 mg-acetaminophen 325 mg tablet RxNorm: 523922 1 Tablet(s) PO Q6H as needed for pain 01/24/2017 02/22/2017 Inactive (Response to an electronic controlled substance refill request - RxReferenceNumber: [id number]|1|0|1) hydrocodone 10 mg-acetaminophen 325 mg tablet RxNorm: 013845 1 Tablet(s) PO Q6H as needed for pain 12/27/2016 06/30/2019 Inactive (Response to an electronic controlled substance refill request - RxReferenceNumber: [id number]|1|0|1) hydrocodone 10 mg-acetaminophen 325 mg tablet RxNorm: 529499 1 Tablet(s) PO Q6H as needed for pain 12/27/2016 01/23/2017 Inactive (Response to an electronic controlled substance refill request - RxReferenceNumber: [id number]|1|0|1) hydrocodone 10 mg-acetaminophen 325 mg tablet RxNorm: 890564 1 Tablet(s) PO Q6H as needed for pain 11/23/2016 12/26/2016 Inactive (Response to an electronic controlled substance refill request - RxReferenceNumber: [id number]|1|0|1) hydrocodone 10 mg-acetaminophen 325 mg tablet RxNorm: 752708 1 Tablet(s) PO Q6H as needed for pain 10/20/2016 11/22/2016 Inactive (Response to an electronic controlled substance refill request - RxReferenceNumber: [id number]|1|0|1) hydrocodone 10 mg-acetaminophen 325 mg tablet RxNorm: 572131 1 Tablet(s) PO Q6H as needed for pain 09/26/2016 10/19/2016 Inactive (Response to an electronic controlled substance refill request - RxReferenceNumber: [id number]|1|0|1) hydrocodone 10 mg-acetaminophen 325 mg tablet RxNorm: 278152 1 Tablet(s) PO Q6H as needed for pain 07/27/2016 09/25/2016 Inactive (Response to an electronic controlled substance refill request - RxReferenceNumber: [id number]|1|0|1) hydrocodone 10 mg-acetaminophen 325 mg tablet RxNorm: 921121 1 Tablet(s) PO Q6H as needed for pain 05/04/2016 07/26/2016 Inactive (Response to an electronic controlled substance refill request - RxReferenceNumber: [id number]|1|0|1) hydrocodone 10 mg-acetaminophen 325 mg tablet RxNorm: 639749 1 Tablet(s) PO Q6H as needed for pain 03/31/2016 05/03/2016 Inactive (Response to an electronic controlled substance refill request - RxReferenceNumber: [id number]|1|0|1) citalopram 10 mg tablet RxNorm: 437488 1 Tablet(s) PO QD 09/28/2015 0 09/27/2015 Inactive citalopram 10 mg tablet RxNorm: 744986 1 Tablet(s) PO QD 09/28/2015 0 09/06/2016 Inactive Wellbutrin SR 150 mg tablet,sustained-release RxNorm: 603540 1 Tablet(s) PO QAM 09/25/2015 09/06/2016 Inactive prednisone 20 mg tablet RxNorm: 360262 1 Tablet(s) PO T ID for 3 days then 1 po BID for 3 days then one daily for 3 days 08/31/2015 09/06/2016 Inactiv e cyclobenzaprine 10 mg tablet RxNorm: 013653 1 Tablet(s) PO TID as needed for muscle spasm 08/31/2015 07/17/2017 Inactive hydrocodone 10 mg-acetaminophen 325 mg tablet RxNorm: 448679 1 Tablet(s) PO Q6H as needed for pain 08/26/2015 03/30/2016 Inactive (Response to an electronic controlled substance refill request - RxReferenceNumber: [id number]|1|0|1) hydrocodone 10 mg-acetaminophen 325 mg tablet RxNorm: 973021 1 Tablet(s) PO Q6H as needed for pain 07/28/2015 08/25/2015 Inactive (Response to an electronic controlled substance refill request - RxReferenceNumber: [id number]|1|0|1) hydrocodone 10 mg-acetaminophen 325 mg tablet RxNorm: 651166 1 Tablet(s) PO Q6H as needed for pain 06/23/2015 07/27/2015 Inactive (Response to an electronic controlled substance refill request - RxReferenceNumber: [id number]|1|0|1) hydrocodone 10 mg-acetaminophen 325 mg tablet RxNorm: 732745 1 Tablet(s) PO Q6H as needed for pain 05/21/2015 06/22/2015 Inactive (Response to an electronic controlled substance refill request - RxReferenceNumber: [id number]|1|0|1) azithromycin 250 mg tablet RxNorm: 286649 2 Tablet(s) P O on day one, then one tablet on days 2 - 5 04/27/2015 08/30/2015 Inactive hydrocodone 10 mg-acetaminophen 325 mg tablet RxNorm: 552481 1 Tablet(s) PO Q6H as needed for pain 03/25/2015 05/20/2015 Inactive (Response to an electronic controlled substance refill request - RxReferenceNumber: [id number]|1|0|1) hydrocodone 10 mg-acetaminophen 325 mg tablet RxNorm: 828159 1 Tablet(s) PO Q6H as needed for pain 02/24/2015 03/24/2015 Inactive (Response to an electronic controlled substance refill request - RxReferenceNumber: [id number]|1|0|1) hydrocodone 10 mg-acetaminophen 325 mg tablet RxNorm: 513623 1 Tablet(s) PO Q6H as needed for pain 01/23/2015 02/23/2015 Inactive (Response to an electronic controlled substance refill request - RxReferenceNumber: [id number]|1|0|1) hydrocodone 10 mg-acetaminophen 325 mg tablet RxNorm: 012708 1 Tablet(s) PO Q6H as needed for pain 12/23/2014 01/22/2015 Inactive (Response to an electronic controlled substance refill request - RxReferenceNumber: [id number]|1|0|1) hydrocodone 10 mg-acetaminophen 325 mg tablet RxNorm: 975419 1 Tablet(s) PO Q6H as needed for pain 11/24/2014 12/22/2014 Inactive (Response to an electronic controlled substance refill request - RxReferenceNumber: [id number]|1|0|1) hydrocodone 10 mg-acetaminophen 325 mg tablet RxNorm: 566372 1 Tablet(s) PO Q6H as needed for pain 10/28/2014 11/23/2014 Inactive (Response to an electronic controlled substance refill request - RxReferenceNumber: [id number]|1|0|1) hydrocodone 10 mg-acetaminophen 325 mg tablet RxNorm: 219183 1 Tablet(s) PO Q6H as needed for pain 09/25/2014 10/27/2014 Inactive (Response to an electronic controlled substance refill request - RxReferenceNumber: [id number]|1|0|1) Lipitor 80 mg tablet RxNorm: 548570 1 Tablet(s) PO QHS 09/24/2014 Inactive hydrocodone 10 mg-acetaminophen 325 mg tablet RxNorm: 101711 1 Tablet(s) PO Q6H as needed for pain 07/30/2014 09/24/2014 Inactive (Response to an electronic controlled substance refill request - RxReferenceNumber: [id number]|1|0|1) hydrocodone 10 mg-acetaminophen 325 mg tablet RxNorm: 834961 1 Tablet(s) PO Q6H as needed for pain 05/27/2014 07/29/2014 Inactive (Response to an electronic controlled substance refill request - RxReferenceNumber: [id number]|1|0|1) clotrimazole-betamethasone 1 %-0.05 % topical cream RxNorm: 130195 TOP As Directed 05/01/2014 08/30/2015 Inactive [SAVINGS FOR UNI NSURED PATIENTS -- BIN:[id number], PCN: [id number], Group: [id number], ID# [id number], Process claim through [email or web address], for questions: . THIS IS NOT INSURANCE.] Lipitor 80 mg tablet RxNorm: 105736 1 Tablet(s) PO QHS 04/28/2014 Inactive hydrocodone 10 mg-acetaminophen 325 mg tablet RxNorm: 831408 1 Tablet(s) PO Q6H as needed for pain 04/28/2014 05/26/2014 Inactive (Response to an electronic controlled substance refill request - RxReferenceNumber: [id number]|1|0|1) hydrocodone 10 mg-acetaminophen 325 mg tablet RxNorm: 856944 1 Tablet(s) PO Q6H as needed for pain 03/27/2014 04/27/2014 Inactive (Response to an electronic controlled substance refill request - RxReferenceNumber: [id number]|1|0|1) hydrocodone 10 mg-acetaminophen 325 mg tablet RxNorm: 882675 1 Tablet(s) PO Q6H as needed for pain 12/20/2013 12/20/2013 Inactive (Appended: Co ntrolled substance eRx refill - RxReferenceNumber: [id number]|1|0|1) hydrocodone 10 mg-acetaminophen 325 mg tablet RxNorm: 661253 TAKE 1 TABLET BY MOUTH EVERY 6 HOURS NEEDED FOR PAIN 12/20/2013 01/12/2014 Inactive (Response to an electronic controlled substance refill request - RxReferenceNumber: [id number]|1|0|1) hydrocodone 10 mg-acetaminophen 325 mg tablet RxNorm: 728417 1 Tablet(s) PO Q6H as needed for pain 09/03/2013 12/19/2013 Inactive (Appended: Co ntrolled substance eRx refill - RxReferenceNumber: [id number]|1|0|1) hydrocodone 10 mg-acetaminophen 325 mg tablet RxNorm: 500273 Tablet(s) PO TAKE 1 TABLET BY MOUTH EVERY 6 HOURS NEEDED FOR PAIN 08/08/2013 09/03/2013 Inactive (Appended: Controlled substance eRx refill - RxReferenceNumber: [id number]|1|0|1) hydrocodone 10 mg-acetaminophen 325 mg tablet RxNorm: 892781 Tablet(s) PO TAKE 1 TABLET BY MOUTH EVERY 6 HOURS NEEDED FOR PAIN 07/11/2013 08/07/2013 Inactive (Appended: Controlled substance eRx refill - RxReferenceNumber: [id number]|1|0|1) hydrocodone 10 mg-acetaminophen 325 mg tablet RxNorm: 462202 2 Tablet(s) PO TAKE 1 TABLET BY MOUTH EVERY 6 HOURS NEEDED FOR PAIN 06/12/2013 3 Inactive (Appended: Controlled substance eRx ref ill - RxReferenceNumber: [id number]|1|0|1) hydrocodone 10 mg-acetaminophen 325 mg tablet RxNorm: 146454 2 1 Tablet(s) PO Q6H NEEDED FOR PAIN 05/15/2013 06/12/2013 Inactive (Appended: Co ntrolled substance eRx refill - RxReferenceNumber: [id number]|1|0|1) hydrocodone 10 mg-acetaminophen 325 mg tablet RxNorm: 175428 2 Tablet(s) PO TAKE 1 TO 2 TABLETS BY MOUTH EVERY 6 HOURS NEEDED FOR PAIN 04/18/2013 No Stop Date Active (Appended: Controlled substa nce eRx refill - RxReferenceNumber: [id number]|1|0|1) hydrocodone 10 mg-acetaminophen 325 mg tablet RxNorm: 418758 2 Tablet(s) PO TAKE 1 TO 2 TABLETS BY MOUTH EVERY 6 HOURS NEEDED FOR PAIN 03/19/2013 No Stop Date Active (Appended: Controlled substa nce eRx refill - RxReferenceNumber: [id number]|1|0|1) hydrocodone 10 mg-acetaminophen 325 mg tablet RxNorm: 295789 2 Tablet(s) PO TAKE 1 TO 2 TABLETS BY MOUTH EVERY 6 HOURS NEEDED FOR PAIN 02/06/2013 Inactive (Appended: Controlled substance eRx refi ll - RxReferenceNumber: [id number]|1|0|1) hydrocodone 10 mg-acetaminophen 325 mg tablet RxNorm: 253336 2 Tablet(s) PO TAKE 1 TO 2 TABLETS BY MOUTH EVERY 6 HOURS NEEDED FOR PAIN 01/08/201304/2013 Inactive (Appended: Controlled substance eRx ref ill - RxReferenceNumber: [id number]|1|0|1) Zithromax 250 mg tablet RxNorm: 017434 2 Tablet(s) PO QD 12/04/2012 0 12/10/2012 Inactive prednisone 20 mg tablet RxNorm: 404976 1 Tablet(s) PO BID 12/04/2012 12/10/2012 Inactive atorvastatin 40 mg tablet RxNorm: 112735 1 Tablet(s) PO QD 11/09/19 13 12/17/2013 Inactive hydrocodone 10 mg-acetaminophen 325 mg tablet RxNorm: 177396 2 Tablet(s) PO TAKE 1 TO 2 TABLETS BY MOUTH EVERY 6 HOURS NEEDED FOR PAIN 10/18/201205/2013 Inactive (Appended: Controlled substance eRx ref ill - RxReferenceNumber: [id number]|1|0|1) hydrocodone 10 mg-acetaminophen 325 mg tablet RxNorm: 577111 2 1-2 Tablet(s) PO Q6H as needed for pain 09/06/2012 10/18/2012 Inactive Lamisil 250 mg tablet RxNorm: 464800 1 Tablet(s) PO QD 08/14/2012 Inactive atorvastatin 40 mg tablet RxNorm: 591981 1 Tablet(s) PO QD 08/08/19 13 11/05/2012 Inactive prednisone 20 mg tablet RxNorm: 880002 1 Tablet(s) PO BID 07/17/2012 07/23/2012 Inactive Wellbutrin SR 150 mg tablet,extended release RxNorm: 823900 1 T ablet(s) PO BID 07/17/2012 08/13/2012 Inactive meloxicam 15 mg tablet RxNorm: 052027 1 Tablet(s) PO QD for pain 07/16/2012 Inactive atorvastatin 40 mg tablet RxNorm: 732508 1 Tablet(s) PO QD 06/27/2008/07/2012 Inactive hydrocodone-acetaminophen 10 mg-325 mg tablet RxNorm: 379110 2 1-2 Tablet(s) PO Q6H as needed for pain 05/23/2012 No Stop Date Active hydrocodone-acetaminophen 10 mg-325 mg tablet RxNorm: 583452 2 1-2 Tablet(s) PO Q6H as needed for pain 04/24/2012 No Stop Date Active hydrocodone-acetaminophen 10 mg-325 mg tablet RxNorm: 570520 2 1-2 Tablet(s) PO Q6H as needed for pain 02/08/2012 No Stop Date Active hydrocodone-acetaminophen 10 mg-325 mg Tab RxNorm: 5670543 1-2 Tablet(s) PO Q6H as needed for pain 01/02/2012 No Stop Date Active hydrocodone-acetaminophen 10 mg-325 mg Tab RxNorm: 4819147 1-2 Tablet(s) PO Q6H as needed for pain 11/29/2011 No Stop Date Active hydrocodone-acetaminophen 10 mg-325 mg Tab RxNorm: 2763344 1-2 Tablet(s) PO Q6H as needed for pain 10/24/2011 No Stop Date Active hydrocodone-acetaminophen 10 mg-325 mg Tab RxNorm: 7473516 1-2 Tablet(s) PO Q6H as needed for pain 10/07/2011 No Stop Date Active simvastatin 40 mg Tab RxNorm: 845588 1 Tablet(s) PO QHS 08/11/2011 Inactive Symbicort 160 mcg-4.5 mcg/actuation HFA aerosol inhaler RxNo rm: 5374217 2 INH QD No Start Date Active atorvastatin 40 mg tablet RxNorm: 136831 1 Tablet(s) PO QD No Start D ate Active aspirin 81 mg tablet RxNorm: 881638 1 Tablet(s) PO QD No Start Date Active Vitamin D3 2,000 unit tablet RxNorm: 564964 3 Tablet(s) PO No Start D ate Active lisinopril 5 mg tablet RxNorm: 222829 1 Tablet(s) PO QD No Start Date Active hydrocodone-acetaminophen 10 mg-325 mg Tab RxNorm: 2782818 1-2 Tablet(s) PO Q6H as needed for pain No Start Date 10/06/2011 Inactive clopidogrel 75 mg tablet RxNorm: 654249 1 Tablet(s) PO QD No Start Date 01/07/2020 Inactive Wellbutrin SR 150 mg tablet,sustained-release RxNorm: 765361 1 Tablet(s) PO QAM No Start Date 09/24/2015 Inactive metoprolol succinate ER 25 mg tablet,extended release 24 hr RxNorm: 977317 1 Tablet(s) PO QD No Start Date 10/27/2019 Inactive OxyContin 15 mg 12 hr Tab RxNorm: 0755139 1 Tablet(s) PO BID No Sta rt Date 08/10/2011 Inactive warfarin 5 mg Tab RxNorm: 469679 1 Tablet(s) PO QD No Start Date 03/01 Inactive albuterol sulfate 1.25 mg/3 mL Neb Solution RxNorm: 791164 1 Unit Dose INH prn wheezing, congestion, shortness of breath No Start Date 04/30/2014 Inacti ve azithromycin 250 mg tablet RxNorm: 432672 2 Tablet(s) P O on day one, then one tablet on days 2 - 5 No Start Date 04/26/2015 Inactive warfarin 10 mg Tab RxNorm: 224146 1 Tablet(s) PO QOD No Start Date Inactive Symbicort Inhl RxNorm: Inhalation No Start Date 12/16/2013 Inactive Trilipix 135 mg Cap RxNorm: 145990 1 Capsule(s) PO QD No Start Date 0 12/07/2011 Inactive Chantix Starting Month Box 0.5 mg (11)-1 mg (42) table ts in dose pack RxNorm: 647808 Tablet(s) PO as directed No Start Date 12/03/2012 Inactive clotrimazole-betamethasone 1 %-0.05 % topical cream RxNorm: 566445 TOP As Directed No Start Date 04/30/2014 Inactive nystatin-triamcinolone 100,000 unit/g-0.1 % Topical Cream Rx Norm: 1694621 Application TOP BID for 2-4weeks No Start Date 12/03/2012 Inactive Lovastatin 20 mg Tab RxNorm: 156398 1 Tablet(s) PO QHS No Start Date 08/10/2011 Inactive krill oil oral RxNorm: 12151 oral No Start Date 06/30/2019 Inacti ve warfarin 7.5 mg Tab RxNorm: 982165 1 Tablet(s) PO QOD No Start Date 1 09/16/2011 Inactive Lipitor 80 mg tablet RxNorm: 813881 1 Tablet(s) PO QHS No Start Date 04/27/2014 Inactive simvastatin 40 mg Tab RxNorm: 097740 1 Tablet(s) PO QHS No Start Da te 08/10/2011 Inactive Gemfibrozil 600 mg Tab RxNorm: 851485 1 Tablet(s) PO QHS No Start D ate 08/10/2011 Inactive Medication Administered No Medication Administered data Immunizations No Immunization data Results Observation Observation Code Item Item Code Result Date S [facility] Location COMPLETE BLOOD COUNT [id number] WBC 9.7 10e9/L 06/19/20 18 Unknown COMPLETE BLOOD COUNT [id number] RBC 5.35 10e12/L 2017 Unknown COMPLETE BLOOD COUNT [id number] HEMOGLOBIN 17.1 g/dL 06/19/20 18 Unknown COMPLETE BLOOD COUNT [id number] HEMATOCRIT 52.4 % 06/19/20 18 Unknown COMPLETE BLOOD COUNT [id number] MCV 97.9 fL 8 Unknown COMPLETE BLOOD COUNT [id number] MCH 32.0 pg 8 Unknown COMPLETE BLOOD COUNT [id number] MCHC 32.6 g/dL 8 Unknown COMPLETE BLOOD COUNT [id number] PLATELET COUNT 257 10e9/L Unknown COMPLETE BLOOD COUNT [id number] Mean Plt Volume 11.2 fL Unknown COMPLETE BLOOD COUNT [id number] Neut Auto 54.6 % 8 Unknown COMPLETE BLOOD COUNT [id number] Lymph Auto 33.3 % 06/19/20 18 Unknown COMPLETE BLOOD COUNT [id number] Hale Auto 9.1 % 8 Unknown COMPLETE BLOOD COUNT [id number] RDW 14.4 % 8 Unknown COMPLETE BLOOD COUNT [id number] Eos Auto 2.6 % 8 Unknown COMPLETE BLOOD COUNT [id number] Baso Auto 0.4 % 8 Unknown COMPLETE BLOOD COUNT [id number] Neutrophil Abs 5.30 10e9/L Unknown COMPLETE BLOOD COUNT [id number] Lymphocyte Abs 3.23 10e9/L Unknown COMPLETE BLOOD COUNT [id number] Monocyte Abs 0.88 10e9/L 06/01 Unknown COMPLETE BLOOD COUNT [id number] Eosinophil Abs 0.25 10e9/L Unknown COMPLETE BLOOD COUNT [id number] RDW-SD 51.8 fL 8 Unknown COMPLETE BLOOD COUNT [id number] Basophil Abs 0.04 10e9/L 06/01 Unknown LIPID GROUP 63283 Cholesterol 222 mg/dL 06/19/2018 Unkno wn [facility] 46280 Triglyceride 111 mg/dL 06/19/2018 Unkn own [facility] 80743 HDL CHOLESTEROL 37 mg/dL 06/19/2018 U nknown [facility] 26636 Chol/HDL Ratio 6.00 ratio 06/19/2018 U nknown [facility] 27530 NON-HDL Chol 185 mg/dL 06/19/2018 Unkn own [facility] 16795 LDL Cholesterol 163 mg/dL 06/19/2018 U nknown VITAMIN B 12 51745 VITAMIN B12 532 pg/mL 06/19/2018 Unkn own THYROID STIMULATING HORMONE 96799 TSH 2.685 uIU/mL 06/19/2018 Unknown COMPREHENSIVE METABOLIC 18847 AST 15 U/L 2017 Unknown COMPREHENSIVE METABOLIC 41798 ALT 21 U/L 2017 Unknown COMPREHENSIVE METABOLIC 64830 BUN 16 mg/dL 2017 Unknown COMPREHENSIVE METABOLIC 58185 ALBUMIN 4.1 g/dL 2017 Unknown COMPREHENSIVE METABOLIC 38489 CHLORIDE 99 mmol/L 2017 Unknown COMPREHENSIVE METABOLIC 36471 Bili Total 0.4 mg/dL 06/19 Unknown COMPREHENSIVE METABOLIC 22041 ALK PHOS 43 U/L 2017 Unknown COMPREHENSIVE METABOLIC 37750 SODIUM 136 mmol/L 06/19 Unknown COMPREHENSIVE METABOLIC 96546 CREATININE 0.82 mg/dL 06/01 Unknown COMPREHENSIVE METABOLIC 63227 CALCIUM 9.5 mg/dL 2017 Unknown COMPREHENSIVE METABOLIC 24251 POTASSIUM 5.2 mmol/L 06/19 Unknown COMPREHENSIVE METABOLIC 37850 Total Protein 6.7 g/dL Unknown COMPREHENSIVE METABOLIC 06722 Glucose 81 mg/dL 2017 Unknown COMPREHENSIVE METABOLIC 63692 Bicarbonate 30 mmol/L 06/01 Unknown COMPREHENSIVE METABOLIC 21839 AGAP 7 mmol/L 2017 Unknown FREE T4 93214 T4 Free 0.85 ng/dL 06/19/2018 Unknown GFR CALC 5498351 GFR Non Afr Amr >60 mL/min 06/19/2018 Un known GFR CALC 5569869 GFR Afr Amr >60 mL/min 06/19/2018 Unknow n VITAMIN D TOTAL (25 HYDROXY) 67879 Vitamin D 25 OH 24.1 ng/mL 06/19/2018 Unknown PSA EQUIMOLAR TROY 35549 PSA Total 0.88 ng/mL 8 Unknown GFR CALC 9881711 GFR Non Afr Amr >60 mL/min 09/09/2016 Un known GFR CALC 4982829 GFR Afr Amr >60 mL/min 09/09/2016 Unknow n COMPLETE BLOOD COUNT 6546891 WBC 11.7 10e9/L 017 Unknown COMPLETE BLOOD COUNT 1059012 RBC 5.54 10e12/L 2016 Unknown COMPLETE BLOOD COUNT 0862759 HEMOGLOBIN 17.6 g/dL 09/09/19 17 Unknown COMPLETE BLOOD COUNT 1326007 HEMATOCRIT 52.3 % 09/09/19 17 Unknown COMPLETE BLOOD COUNT 8014281 MCV 94.4 fL 7 Unknown COMPLETE BLOOD COUNT 1179510 MCH 31.8 pg 7 Unknown COMPLETE BLOOD COUNT 0290080 MCHC 33.7 g/dL 7 Unknown COMPLETE BLOOD COUNT 7389968 PLATELET COUNT 259 10e9/L 04/2017 Unknown COMPLETE BLOOD COUNT 4340355 Mean Plt Volume 11.2 fL 04/2017 Unknown COMPLETE BLOOD COUNT 9611748 Neut Auto 53.6 % 7 Unknown COMPLETE BLOOD COUNT 7053710 Lymph Auto 36.2 % 09/09/19 17 Unknown COMPLETE BLOOD COUNT 1224704 Hale Auto 7.9 % 7 Unknown COMPLETE BLOOD COUNT 9612183 RDW 14.2 % 7 Unknown COMPLETE BLOOD COUNT 3625821 Eos Auto 2.1 % 7 Unknown COMPLETE BLOOD COUNT 1658703 Baso Auto 0.2 % 7 Unknown COMPLETE BLOOD COUNT 6567666 Neutrophil Abs 6.27 10e9/L Unknown COMPLETE BLOOD COUNT 0758120 Lymphocyte Abs 4.24 10e9/L Unknown COMPLETE BLOOD COUNT 9456889 Monocyte Abs 0.92 10e9/L 08/31 Unknown COMPLETE BLOOD COUNT 6700612 Eosinophil Abs 0.25 10e9/L Unknown COMPLETE BLOOD COUNT 1332698 RDW-SD 48.1 fL 7 Unknown COMPLETE BLOOD COUNT 6007815 Basophil Abs 0.02 10e9/L 08/31 Unknown COMPREHENSIVE METABOLIC 59657 AST 19 U/L 2016 Unknown COMPREHENSIVE METABOLIC 06028 ALT 25 U/L 2016 Unknown COMPREHENSIVE METABOLIC 12237 BUN 16 mg/dL 2016 Unknown COMPREHENSIVE METABOLIC 71722 ALBUMIN 4.8 g/dL 2016 Unknown COMPREHENSIVE METABOLIC 28325 CHLORIDE 100 mmol/L 09/09 Unknown COMPREHENSIVE METABOLIC 48609 Bili Total 0.7 mg/dL 09/09 Unknown COMPREHENSIVE METABOLIC 84683 ALK PHOS 50 U/L 2016 Unknown COMPREHENSIVE METABOLIC 30886 SODIUM 136 mmol/L 09/09 Unknown COMPREHENSIVE METABOLIC 46289 CREATININE 0.98 mg/dL 08/31 Unknown COMPREHENSIVE METABOLIC 63540 CALCIUM 9.8 mg/dL 2016 Unknown COMPREHENSIVE METABOLIC 53771 POTASSIUM 4.6 mmol/L 09/09 Unknown COMPREHENSIVE METABOLIC 60901 Total Protein 7.5 g/dL Unknown COMPREHENSIVE METABOLIC 60036 Glucose 104 mg/dL 2016 Unknown COMPREHENSIVE METABOLIC 04466 Bicarbonate 27 mmol/L 08/31 Unknown COMPREHENSIVE METABOLIC 07095 AGAP 9 mmol/L 2016 Unknown FREE T4 94613 T4 Free 1.04 ng/dL 09/09/2016 Unknown THYROID STIMULATING HORMONE 41233 TSH 1.618 uIU/mL 09/09/2016 Unknown [facility] 21164 Cholesterol 251 mg/dL 09/09/2016 Unkno wn [facility] 08069 Triglyceride 153 mg/dL 09/09/2016 Unkn own [facility] 12686 HDL CHOLESTEROL 33 mg/dL 09/09/2016 U nknown [facility] 39391 Chol/HDL Ratio 7.61 ratio 09/09/2016 U nknown [facility] 06616 NON-HDL Chol 218 mg/dL 09/09/2016 Unkn own [facility] 49157 LDL Cholesterol 187 mg/dL 09/09/2016 U nknown [facility] 34387 HDL TEST 39 MG/DL 09/15/2015 Unknown [facility] 98798 TRIG 106 MG/DL 09/15/2015 Unknown [facility] 77659 TEST LDL 152 MG/DL 09/15/2015 Unknown [facility] 89918 CHOL 212 MG/DL 09/15/2015 Unknown [facility] 74474 RCHOL/HDL 5.44 RATIO 09/15/2015 Unknow n [facility] 92942 NON-HDL CH 173 MG/DL 09/15/2015 Unknow n GFR CALC 7093369 GFR AA >60 ML/MIN 09/15/2015 Unknown GFR CALC 7454358 GFR NON-AA >60 ML/MIN 09/15/2015 Unknown COMPREHENSIVE METABOLIC 65604 AST 18 U/L 2015 Unknown COMPREHENSIVE METABOLIC 87634 ALT 28 IU/L 2015 Unknown COMPREHENSIVE METABOLIC 49902 BUN 14 MG/DL 2015 Unknown COMPREHENSIVE METABOLIC 98785 ALBUMIN 4.2 GM/DL 2015 Unknown COMPREHENSIVE METABOLIC 93204 CHLORIDE 101 MMOL/L 09/15 Unknown COMPREHENSIVE METABOLIC 64947 BILI TOT 0.6 MG/DL 2015 Unknown COMPREHENSIVE METABOLIC 00021 ALK PHOS 48 U/L 2015 Unknown COMPREHENSIVE METABOLIC 81897 SODIUM 135 MMOL/L 09/15 Unknown COMPREHENSIVE METABOLIC 28588 CREATININE 0.91 MG/DL 08/31 Unknown COMPREHENSIVE METABOLIC 12749 CALCIUM 9.2 MG/DL 2015 Unknown COMPREHENSIVE METABOLIC 60743 POTASSIUM 4.6 MMOL/L 09/15 Unknown COMPREHENSIVE METABOLIC 14948 PROT TOT 6.6 GM/DL 2015 Unknown COMPREHENSIVE METABOLIC 24483 Glucose 97 MG/DL 2015 Unknown COMPREHENSIVE METABOLIC 32668 BICARB 27 MMOL/L 2015 Unknown COMPREHENSIVE METABOLIC 27008 ANION GAP 7 MEQ/L 2015 Unknown [facility] 62496 HDL TEST 35 MG/DL 04/14/2015 Unknown [facility] 45945 TRIG 135 MG/DL 04/14/2015 Unknown [facility] 75729 TEST LDL 153 MG/DL 04/14/2015 Unknown [facility] 38761 CHOL 215 MG/DL 04/14/2015 Unknown [facility] 26833 RCHOL/HDL 6.14 RATIO 04/14/2015 Unknow n [facility] 30837 NON-HDL CH 180 MG/DL 04/14/2015 Unknow n GFR CALC 1386003 GFR AA >60 ML/MIN 04/14/2015 Unknown GFR CALC 4656141 GFR NON-AA >60 ML/MIN 04/14/2015 Unknown COMPREHENSIVE METABOLIC 09129 AST 23 U/L 2014 Unknown COMPREHENSIVE METABOLIC 18986 ALT 27 IU/L 2014 Unknown COMPREHENSIVE METABOLIC 18191 BUN 15 MG/DL 2014 Unknown COMPREHENSIVE METABOLIC 95466 ALBUMIN 4.2 GM/DL 2014 Unknown COMPREHENSIVE METABOLIC 11051 CHLORIDE 103 MMOL/L 04/14 Unknown COMPREHENSIVE METABOLIC 58923 BILI TOT 0.8 MG/DL 2014 Unknown COMPREHENSIVE METABOLIC 30393 ALK PHOS 50 U/L 2014 Unknown COMPREHENSIVE METABOLIC 00435 SODIUM 134 MMOL/L 04/14 Unknown COMPREHENSIVE METABOLIC 25648 CREATININE 0.93 MG/DL 03/31 Unknown COMPREHENSIVE METABOLIC 79732 CALCIUM 9.4 MG/DL 2014 Unknown COMPREHENSIVE METABOLIC 18489 POTASSIUM 4.4 MMOL/L 04/14 Unknown COMPREHENSIVE METABOLIC 57207 PROT TOT 6.8 GM/DL 2014 Unknown COMPREHENSIVE METABOLIC 29854 Glucose 101 MG/DL 2014 Unknown COMPREHENSIVE METABOLIC 73511 BICARB 25 MMOL/L 2014 Unknown COMPREHENSIVE METABOLIC 75936 ANION GAP 6 MEQ/L 2014 Unknown PSA EQUIMOLAR TROY 41341 PSA EQ 1.04 NG/ML 5 Unknown GFR CALC 4042411 GFR AA >60 ML/MIN 11/10/2014 Unknown GFR CALC 4395005 GFR NON-AA >60 ML/MIN 11/10/2014 Unknown [facility] 71070 HDL TEST 31 MG/DL 11/10/2014 Unknown [facility] 36476 TRIG 133 MG/DL 11/10/2014 Unknown [facility] 05538 TEST LDL 74 MG/DL 11/10/2014 Unknown [facility] 72465 CHOL 132 MG/DL 11/10/2014 Unknown [facility] 83514 RCHOL/HDL 4.26 RATIO 11/10/2014 Unknow n [facility] 43084 NON-HDL CH 101 MG/DL 11/10/2014 Unknow n COMPLETE BLOOD COUNT 2987719 WBC 10.2 10e9/L 015 Unknown COMPLETE BLOOD COUNT 1666272 RBC 5.01 10e12/L 2014 Unknown COMPLETE BLOOD COUNT 3842327 HGB 16.1 g/dL 5 Unknown COMPLETE BLOOD COUNT 9719454 HCT DET 48.1 % 5 Unknown COMPLETE BLOOD COUNT 6023399 MCV 96.0 fL 5 Unknown COMPLETE BLOOD COUNT 4566969 MCH 32.1 pg 5 Unknown COMPLETE BLOOD COUNT 4001746 MCHC 33.5 g/dL 5 Unknown COMPLETE BLOOD COUNT 7772036 PLT 248 10e9/L 11/11/19 15 Unknown COMPLETE BLOOD COUNT 9961697 MPV 11.4 fL 5 Unknown COMPLETE BLOOD COUNT 5231749 GIUSEPPE % 51.2 % 5 Unknown COMPLETE BLOOD COUNT 9013177 LY % 37.4 % 5 Unknown COMPLETE BLOOD COUNT 8007438 MON % 9.2 % 5 Unknown COMPLETE BLOOD COUNT 4938663 EOS % 2.0 % 5 Unknown COMPLETE BLOOD COUNT 4905204 BASO % 0.2 % 5 Unknown COMPLETE BLOOD COUNT 6322680 RDW 14.0 % 5 Unknown COMPLETE BLOOD COUNT 7905314 ABS GIUSEPPE 5.22 10e9/L 015 Unknown COMPLETE BLOOD COUNT 9856481 ABS LYMPH 3.81 10e9/L 015 Unknown COMPLETE BLOOD COUNT 1874198 ABS MONO 0.94 10e9/L 015 Unknown COMPLETE BLOOD COUNT 4118300 ABS EOS 0.20 10e9/L 015 Unknown COMPLETE BLOOD COUNT 1922999 ABS BASO 0.02 10e9/L 015 Unknown COMPLETE BLOOD COUNT 2822027 RDW-SD 47.8 fL 5 Unknown FREE T4 05250 FREE T4 0.92 NG/DL 11/10/2014 Unknown COMPREHENSIVE METABOLIC 20645 AST 18 U/L 2014 Unknown COMPREHENSIVE METABOLIC 52128 ALT 25 IU/L 2014 Unknown COMPREHENSIVE METABOLIC 37065 BUN 16 MG/DL 2014 Unknown COMPREHENSIVE METABOLIC 30463 ALBUMIN 4.5 GM/DL 2014 Unknown COMPREHENSIVE METABOLIC 66296 CHLORIDE 103 MMOL/L 11/10 Unknown COMPREHENSIVE METABOLIC 13393 BILI TOT 0.4 MG/DL 2014 Unknown COMPREHENSIVE METABOLIC 87844 ALK PHOS 53 U/L 2014 Unknown COMPREHENSIVE METABOLIC 72823 SODIUM 135 MMOL/L 11/10 Unknown COMPREHENSIVE METABOLIC 40236 CREATININE 0.97 MG/DL 10/29 Unknown COMPREHENSIVE METABOLIC 34906 CALCIUM 9.4 MG/DL 2014 Unknown COMPREHENSIVE METABOLIC 37837 POTASSIUM 4.4 MMOL/L 11/10 Unknown COMPREHENSIVE METABOLIC 28948 PROT TOT 6.9 GM/DL 2014 Unknown COMPREHENSIVE METABOLIC 78998 Glucose 91 MG/DL 2014 Unknown COMPREHENSIVE METABOLIC 03208 BICARB 26 MMOL/L 2014 Unknown COMPREHENSIVE METABOLIC 15440 ANION GAP 6 MEQ/L 2014 Unknown THYROID STIMULATING HORMONE 71798 TSH 3.791 uIU/ML 11/10/2014 Unknown [facility] 67052 HDL TEST 35 MG/DL 04/29/2014 Unknown [facility] 10225 TRIG 123 MG/DL 04/29/2014 Unknown [facility] 45910 TEST LDL 117 MG/DL 04/29/2014 Unknown [facility] 50277 CHOL 177 MG/DL 04/29/2014 Unknown [facility] 60900 RCHOL/HDL 5.06 RATIO 04/29/2014 Unknow n [facility] 30682 NON-HDL CH 142 MG/DL 04/29/2014 Unknow n COMPREHENSIVE METABOLIC 04244 AST 18 U/L 2013 Unknown COMPREHENSIVE METABOLIC 75693 ALT 29 IU/L 2013 Unknown COMPREHENSIVE METABOLIC 40852 BUN 19 MG/DL 2013 Unknown COMPREHENSIVE METABOLIC 51307 ALBUMIN 4.0 GM/DL 2013 Unknown COMPREHENSIVE METABOLIC 47439 CHLORIDE 106 MMOL/L 04/29 Unknown COMPREHENSIVE METABOLIC 65805 BILI TOT 0.4 MG/DL 2013 Unknown COMPREHENSIVE METABOLIC 12615 ALK PHOS 51 U/L 2013 Unknown COMPREHENSIVE METABOLIC 77487 SODIUM 138 MMOL/L 04/29 Unknown COMPREHENSIVE METABOLIC 24320 CREATININE 0.87 MG/DL 04/02 Unknown COMPREHENSIVE METABOLIC 81382 CALCIUM 9.4 MG/DL 2013 Unknown COMPREHENSIVE METABOLIC 01400 POTASSIUM 4.5 MMOL/L 04/29 Unknown COMPREHENSIVE METABOLIC 19659 PROT TOT 6.8 GM/DL 2013 Unknown COMPREHENSIVE METABOLIC 89798 Glucose 106 MG/DL 2013 Unknown COMPREHENSIVE METABOLIC 02259 BICARB 24 MMOL/L 2013 Unknown COMPREHENSIVE METABOLIC 72512 ANION GAP 8 MEQ/L 2013 Unknown GFR CALC 7978039 GFR AA >60 ML/MIN 04/29/2014 Unknown GFR CALC 5862464 GFR NON-AA >60 ML/MIN 04/29/2014 Unknown [facility] 25562 HDL TEST 30 MG/DL 12/18/2013 Unknown [facility] 28592 TRIG 128 MG/DL 12/18/2013 Unknown [facility] 88691 TEST LDL 166 MG/DL 12/18/2013 Unknown [facility] 40821 CHOL 222 MG/DL 12/18/2013 Unknown [facility] 68221 RCHOL/HDL 7.40 RATIO 12/18/2013 Unknow n GFR CALC 0443184 GFR AA >60 ML/MIN 12/18/2013 Unknown GFR CALC 6263329 GFR NON-AA >60 ML/MIN 12/18/2013 Unknown FREE T4 68249 FREE T4 1.07 NG/DL 12/18/2013 Unknown COMPLETE BLOOD COUNT 0053536 WBC 7.2 10e9/L 12/19/19 14 Unknown COMPLETE BLOOD COUNT 2768488 RBC 4.89 10e12/L 2013 Unknown COMPLETE BLOOD COUNT 3453107 HGB 15.5 g/dL 4 Unknown COMPLETE BLOOD COUNT 0718145 HCT DET 46.6 % 4 Unknown COMPLETE BLOOD COUNT 1359709 MCV 95.3 fL 4 Unknown COMPLETE BLOOD COUNT 9137828 MCH 31.7 pg 4 Unknown COMPLETE BLOOD COUNT 7229825 MCHC 33.3 g/dL 4 Unknown COMPLETE BLOOD COUNT 9708969 PLT 246 10e9/L 12/19/19 14 Unknown COMPLETE BLOOD COUNT 8179741 MPV 11.4 fL 4 Unknown COMPLETE BLOOD COUNT 8708189 GIUSEPPE % 48.6 % 4 Unknown COMPLETE BLOOD COUNT 2040035 LY % 37.4 % 4 Unknown COMPLETE BLOOD COUNT 9437539 MON % 10.5 % 4 Unknown COMPLETE BLOOD COUNT 5838564 EOS % 3.2 % 4 Unknown COMPLETE BLOOD COUNT 4483683 BASO % 0.3 % 4 Unknown COMPLETE BLOOD COUNT 7716304 RDW 13.6 % 4 Unknown COMPLETE BLOOD COUNT 7776007 ABS GIUSEPPE 3.50 10e9/L 014 Unknown COMPLETE BLOOD COUNT 6175265 ABS LYMPH 2.69 10e9/L 014 Unknown COMPLETE BLOOD COUNT 5982195 ABS MONO 0.76 10e9/L 014 Unknown COMPLETE BLOOD COUNT 7324404 ABS EOS 0.23 10e9/L 014 Unknown COMPLETE BLOOD COUNT 5718468 ABS BASO 0.02 10e9/L 014 Unknown COMPLETE BLOOD COUNT 0461344 RDW-SD 46.2 fL 4 Unknown COMPREHENSIVE METABOLIC 71718 AST 38 U/L 2013 Unknown COMPREHENSIVE METABOLIC 09946 ALT 33 IU/L 2013 Unknown COMPREHENSIVE METABOLIC 83942 BUN 15 MG/DL 2013 Unknown COMPREHENSIVE METABOLIC 52832 ALBUMIN 4.2 GM/DL 2013 Unknown COMPREHENSIVE METABOLIC 63052 CHLORIDE 103 MMOL/L 12/18 Unknown COMPREHENSIVE METABOLIC 02553 BILI TOT 0.6 MG/DL 2013 Unknown COMPREHENSIVE METABOLIC 10725 ALK PHOS 45 U/L 2013 Unknown COMPREHENSIVE METABOLIC 33070 SODIUM 136 MMOL/L 12/18 Unknown COMPREHENSIVE METABOLIC 99731 CREATININE 0.97 MG/DL 11/29 Unknown COMPREHENSIVE METABOLIC 74741 CALCIUM 9.2 MG/DL 2013 Unknown COMPREHENSIVE METABOLIC 58758 POTASSIUM 4.2 MMOL/L 12/18 Unknown COMPREHENSIVE METABOLIC 08897 PROT TOT 7.0 GM/DL 2013 Unknown COMPREHENSIVE METABOLIC 43242 Glucose 120 MG/DL 2013 Unknown COMPREHENSIVE METABOLIC 14998 BICARB 24 MMOL/L 2013 Unknown COMPREHENSIVE METABOLIC 80764 ANION GAP 9 MEQ/L 2013 Unknown THYROID STIMULATING HORMONE 60870 TSH 1.305 uIU/ML 12/18/2013 Unknown PSA EQUIMOLAR TROY 45087 PSA EQ 1.71 NG/ML 4 Unknown [facility] 21159 HDL TEST 29 MG/DL 07/17/2012 Unknown [facility] 87526 TRIG 155 MG/DL 07/17/2012 Unknown [facility] 86254 TEST LDL 105 MG/DL 07/17/2012 Unknown [facility] 50121 CHOL 165 MG/DL 07/17/2012 Unknown [facility] 60854 RCHOL/HDL 5.69 RATIO 07/17/2012 Unknow n GFR CALC 7179518 GFR AA >60 ML/MIN 07/17/2012 Unknown GFR CALC 2307714 GFR NON-AA >60 ML/MIN 07/17/2012 Unknown COMPREHENSIVE METABOLIC 70408 AST 19 U/L 2011 Unknown COMPREHENSIVE METABOLIC 22188 ALT 25 IU/L 2011 Unknown COMPREHENSIVE METABOLIC 99544 BUN 14 MG/DL 2011 Unknown COMPREHENSIVE METABOLIC 28416 ALBUMIN 4.4 GM/DL 2011 Unknown COMPREHENSIVE METABOLIC 81106 CHLORIDE 103 MMOL/L 07/17 Unknown COMPREHENSIVE METABOLIC 68187 BILI TOT 0.6 MG/DL 2011 Unknown COMPREHENSIVE METABOLIC 48677 ALK PHOS 53 U/L 2011 Unknown COMPREHENSIVE METABOLIC 18478 SODIUM 136 MMOL/L 07/17 Unknown COMPREHENSIVE METABOLIC 03535 CREATININE 0.97 MG/DL 06/30 Unknown COMPREHENSIVE METABOLIC 47842 CALCIUM 9.4 MG/DL 2011 Unknown COMPREHENSIVE METABOLIC 88073 POTASSIUM 4.3 MMOL/L 07/17 Unknown COMPREHENSIVE METABOLIC 38815 PROT TOT 6.9 GM/DL 2011 Unknown COMPREHENSIVE METABOLIC 77215 Glucose 102 MG/DL 2011 Unknown COMPREHENSIVE METABOLIC 95682 BICARB 27 MMOL/L 2011 Unknown COMPREHENSIVE METABOLIC 98998 ANION GAP 6 MEQ/L 2011 Unknown ERYTHROCYTE SEDIMENTATION RATE 51707 ESR 14 MM/HR 03/20/2012 Unknown [facility] 37503 HDL TEST 31 MG/DL 03/20/2012 Unknown [facility] 45271 TRIG 210 MG/DL 03/20/2012 Unknown [facility] 11549 TEST LDL 164 MG/DL 03/20/2012 Unknown [facility] 22606 CHOL 237 MG/DL 03/20/2012 Unknown [facility] 13374 RCHOL/HDL 7.65 RATIO 03/20/2012 Unknow n GFR CALC 4864836 GFR AA >60 ML/MIN 03/20/2012 Unknown GFR CALC 3991847 GFR NON-AA >60 ML/MIN 03/20/2012 Unknown C-REACTIVE PROTEIN (CRP) QUANT 36169 CRP 0.9 MG/DL 03/20/2012 Unknown COMPLETE BLOOD COUNT 64778 WBC 9.7 10e9/L 03/20/20 12 Unknown COMPLETE BLOOD COUNT 32100 RBC 5.14 10e12/L 2011 Unknown COMPLETE BLOOD COUNT 08591 HGB 15.5 g/dL 2 Unknown COMPLETE BLOOD COUNT 76415 HCT DET 46.9 % 2 Unknown COMPLETE BLOOD COUNT 01259 MCV 91.2 fL 2 Unknown COMPLETE BLOOD COUNT 44682 MCH 30.2 pg 2 Unknown COMPLETE BLOOD COUNT 83250 MCHC 33.0 g/dL 2 Unknown COMPLETE BLOOD COUNT 23961 PLT 280 10e9/L 03/20/20 12 Unknown COMPLETE BLOOD COUNT 14529 MPV 10.6 fL 2 Unknown COMPLETE BLOOD COUNT 40069 GIUSEPPE % 61.5 % 2 Unknown COMPLETE BLOOD COUNT 35728 LY % 26.5 % 2 Unknown COMPLETE BLOOD COUNT 32622 MON % 8.8 % 2 Unknown COMPLETE BLOOD COUNT 69230 EOS % 3.0 % 2 Unknown COMPLETE BLOOD COUNT 69596 BASO % 0.2 % 2 Unknown COMPLETE BLOOD COUNT 55022 RDW 15.3 % 2 Unknown COMPLETE BLOOD COUNT 00841 ABS GIUSEPPE 5.97 10e9/L 012 Unknown COMPLETE BLOOD COUNT 27656 ABS LYMPH 2.57 10e9/L 012 Unknown COMPLETE BLOOD COUNT 20204 ABS MONO 0.85 10e9/L 012 Unknown COMPLETE BLOOD COUNT 40652 ABS EOS 0.29 10e9/L 012 Unknown COMPLETE BLOOD COUNT 25255 ABS BASO 0.02 10e9/L 012 Unknown COMPLETE BLOOD COUNT 85947 RDW-SD 50.3 fL 2 Unknown COMPREHENSIVE METABOLIC 74387 AST 16 U/L 2011 Unknown COMPREHENSIVE METABOLIC 47333 ALT 21 IU/L 2011 Unknown COMPREHENSIVE METABOLIC 28578 BUN 15 MG/DL 2011 Unknown COMPREHENSIVE METABOLIC 19671 ALBUMIN 4.3 GM/DL 2011 Unknown COMPREHENSIVE METABOLIC 74571 CHLORIDE 102 MMOL/L 03/20 Unknown COMPREHENSIVE METABOLIC 75918 BILI TOT 0.5 MG/DL 2011 Unknown COMPREHENSIVE METABOLIC 92473 ALK PHOS 60 U/L 2011 Unknown COMPREHENSIVE METABOLIC 28209 SODIUM 135 MMOL/L 03/20 Unknown COMPREHENSIVE METABOLIC 73433 CREATININE 0.94 MG/DL 03/01 Unknown COMPREHENSIVE METABOLIC 09237 CALCIUM 9.0 MG/DL 2011 Unknown COMPREHENSIVE METABOLIC 74118 POTASSIUM 4.4 MMOL/L 03/20 Unknown COMPREHENSIVE METABOLIC 97576 PROT TOT 6.7 GM/DL 2011 Unknown COMPREHENSIVE METABOLIC 15619 Glucose 96 MG/DL 2011 Unknown COMPREHENSIVE METABOLIC 81666 BICARB 25 MMOL/L 2011 Unknown COMPREHENSIVE METABOLIC 09336 ANION GAP 8 MEQ/L 2011 [place] [address] PRO TIME 21.6 SEC 03/20/[place] [address] INR MCMC 1.8 03/20/2012 Unknow n Procedures Procedure Codes Date ROUTINE VENIPUNCTURE CPT-4: 83619 06/19/2018 ASSAY OF FREE THYROXINE CPT-4: 09058 06/19/2018 ASSAY THYROID STIM HORMONE CPT-4: 23128 06/19/2018 COMPREHEN METABOLIC PANEL CPT-4: 06726 06/19/2018 COMPLETE CBC W/AUTO DIFF WBC CPT-4: 35925 06/19/2018 LIPID PANEL CPT-4: 54097 06/19/2018 ASSAY OF PSA TOTAL CPT-4: 76199 06/19/2018 VITAMIN D TOTAL (25 HYDROXY) CPT-4: 23785 06/19/2018 VITAMIN B-12 CPT-4: 74316 06/19/2018 DEXAMETHASONE SODIUM PHOS CPT-4: J1100 08/31/2017 TRIAMCINOLONE ACET INJ NOS CPT-4: J3301 08/31/2017 DRAIN/INJECT JOINT/BURSA CPT-4: 57645 08/31/2017 ROUTINE VENIPUNCTURE CPT-4: 61465 08/01/2017 COMPREHEN METABOLIC PANEL CPT-4: 39643 08/01/2017 LIPID PANEL CPT-4: 16673 08/01/2017 DRAIN/INJECT JOINT/BURSA CPT-4: 44019 09/12/2016 TRIAMCINOLONE ACET INJ NOS CPT-4: J3301 09/12/2016 DEXAMETHASONE SODIUM PHOS CPT-4: J1100 09/12/2016 ROUTINE VENIPUNCTURE CPT-4: 30577 09/09/2016 ASSAY OF FREE THYROXINE CPT-4: 99961 09/09/2016 ASSAY THYROID STIM HORMONE CPT-4: 01537 09/09/2016 COMPREHEN METABOLIC PANEL CPT-4: 73766 09/09/2016 COMPLETE CBC W/AUTO DIFF WBC CPT-4: 69654 09/09/2016 LIPID PANEL CPT-4: 65825 09/09/2016 SPECIAL REPORTS OR FORMS CPT-4: 29483 08/05/2016 ROUTINE VENIPUNCTURE CPT-4: 66330 09/15/2015 COMPREHEN METABOLIC PANEL CPT-4: 30765 09/15/2015 LIPID PANEL CPT-4: 50093 09/15/2015 PRESCRIP TRANSMIT VIA ERX SY CPT-4: G8553 08/31/2015 ROUTINE VENIPUNCTURE CPT-4: 59898 04/14/2015 COMPREHEN METABOLIC PANEL CPT-4: 86488 04/14/2015 LIPID PANEL CPT-4: 61886 04/14/2015 ROUTINE VENIPUNCTURE CPT-4: 43303 11/10/2014 ASSAY OF FREE THYROXINE CPT-4: 05224 11/10/2014 ASSAY THYROID STIM HORMONE CPT-4: 06258 11/10/2014 COMPREHEN METABOLIC PANEL CPT-4: 03478 11/10/2014 COMPLETE CBC W/AUTO DIFF WBC CPT-4: 05290 11/10/2014 LIPID PANEL CPT-4: 15563 11/10/2014 ASSAY OF PSA TOTAL CPT-4: 86007 11/10/2014 ROUTINE VENIPUNCTURE CPT-4: 08186 04/29/2014 COMPREHEN METABOLIC PANEL CPT-4: 90847 04/29/2014 LIPID PANEL CPT-4: 12444 04/29/2014 ROUTINE VENIPUNCTURE CPT-4: 27237 12/18/2013 ASSAY OF FREE THYROXINE CPT-4: 65041 12/18/2013 ASSAY THYROID STIM HORMONE CPT-4: 03991 12/18/2013 COMPREHEN METABOLIC PANEL CPT-4: 45057 12/18/2013 COMPLETE CBC W/AUTO DIFF WBC CPT-4: 15484 12/18/2013 LIPID PANEL CPT-4: 13996 12/18/2013 ASSAY OF PSA TOTAL CPT-4: 44368 12/18/2013 ROUTINE VENIPUNCTURE CPT-4: 09098 07/17/2012 COMPREHEN METABOLIC PANEL CPT-4: 70580 07/17/2012 LIPID PANEL CPT-4: 43874 07/17/2012 ROUTINE VENIPUNCTURE CPT-4: 09415 03/20/2012 COMPLETE CBC W/AUTO DIFF WBC CPT-4: 65778 03/20/2012 RBC SED RATE AUTOMATED CPT-4: 29004 03/20/2012 C-REACTIVE PROTEIN CPT-4: 36524 03/20/2012 COMPREHEN METABOLIC PANEL CPT-4: 45862 03/20/2012 LIPID PANEL CPT-4: 73996 03/20/2012 PROTHROMBIN TIME CPT-4: 23714 03/20/2012 Vital Signs Date Vital 01/08/2020 Blood Pressure 1: 132/84 Code: 8480-6 BMI: 32.1 Code: 44659-6 Heart Rate 1: 56 bpm Height: 6'2" Respiratory Rate: 20 bpm SpO2: 94% Tempera ture: 36.6 (C) / 97.8 (F) Weight: 250 lbs 10/07/2019 Blood Pressure 1: 142/83 Code: 8480-6 BMI: 31.3 Code: 93623-8 Heart Rate 1: 80 bpm Height: 6'2" Respiratory Rate: 17 bpm SpO2: 99% Tempera ture: 36.7 (C) / 98.1 (F) Weight: 244 lbs 07/01/2019 Blood Pressure 1: 114/80 Code: 8480-6 BMI: 30.4 Code: 29637-0 Heart Rate 1: 72 bpm Height: 6'2" [...] 1: 126/82 Code: 8480-6 BMI: 31.2 Code: 35030-4 Heart Rate 1: 84 bpm Height: 6'2" Respiratory Rate: 20 bpm SpO2: 94% Tempera ture: 37.0 (C) / 98.6 (F) Weight: 243 lbs 03/02/2018 Blood Pressure 1: 122/80 Code: 8480-6 BMI: 30.8 Code: 42827-8 Heart Rate 1: 74 bpm Height: 6'2" Respiratory Rate: 20 bpm SpO2: 95% Tempera ture: 37.1 (C) / 98.8 (F) Weight: 240 lbs 08/31/2017 Blood Pressure 1: 136/90 Code: 8480-6 Heart Rate 1: 76 bpm Respiratory Rate: 20 bpm Temperature: 36.7 (C) / 98.0 (F) Weight: 247 lbs 07/18/2017 Blood Pressure 1: 126/78 Code: 8480-6 BMI: 31.3 Code: 11919-7 Heart Rate 1: 72 bpm Height: 6'2" Respiratory Rate: 20 bpm SpO2: 94% Tempera ture: 37.0 (C) / 98.6 (F) Weight: 244 lbs 04/24/2017 Blood Pressure 1: 152/92 Code: 8480-6 BMI: 31.1 Code: 62234-8 Heart Rate 1: 74 bpm Height: 6'2" Respiratory Rate: 18 bpm SpO2: 98% Tempera ture: 35.9 (C) / 96.6 (F) Weight: 242 lbs 01/04/2017 Blood Pressure 1: 122/70 Code: 8480-6 BMI: 30.4 Code: 03211-6 Heart Rate 1: 88 bpm Height: 6'2" Respiratory Rate: 20 bpm SpO2: 96% Tempera ture: 36.6 (C) / 97.8 (F) Weight: 237 lbs 09/12/2016 Blood Pressure 1: 136/78 Code: 8480-6 Heart Rate 1: 82 bpm Respiratory Rate: 22 bpm SpO2: 94% Temperature: 36.4 (C) / 97.6 (F) We ight: 234 lbs 09/07/2016 Blood Pressure 1: 122/70 Code: 8480-6 BMI: 30.0 Code: 66521-4 Heart Rate 1: 88 bpm Height: 6'2" Respiratory Rate: 20 bpm SpO2: 94% Tempera ture: 36.6 (C) / 97.9 (F) Weight: 234 lbs 08/31/2015 Blood Pressure 1: 142/94 Code: 8480-6 BMI: 28.9 Code: 60400-8 Heart Rate 1: 92 bpm Height: 6'2" Respiratory Rate: 20 bpm Temperature: 36 .9 (C) / 98.5 (F) Weight: 225 lbs 04/14/2015 Blood Pressure 1: 126/80 Code: 8480-6 BMI: 28.0 Code: 49262-2 Heart Rate 1: 76 bpm Height: 6'2" Respiratory Rate: 20 bpm Temperature: 36 .6 (C) / 97.8 (F) Weight: 218 lbs 10/07/2014 Blood Pressure 1: 128/76 Code: 8480-6 BMI: 28.6 Code: 09365-7 Heart Rate 1: 84 bpm Height: 6'2" Respiratory Rate: 22 bpm Temperature: 36 .6 (C) / 97.9 (F) Weight: 223 lbs 05/01/2014 Blood Pressure 1: 126/68 Code: 8480-6 BMI: 28.2 Code: 72660-9 Heart Rate 1: 84 bpm Height: 6'2" Respiratory Rate: 20 bpm Temperature: 36 .8 (C) / 98.3 (F) Weight: 220 lbs 12/17/2013 Blood Pressure 1: 136/82 Code: 8480-6 BMI: 29.6 Code: 48371-8 Heart Rate 1: 76 bpm Height: 6'1" Respiratory Rate: 20 bpm Temperature: 36 .8 (C) / 98.2 (F) Weight: 224 lbs 12/11/2012 Blood Pressure 1: 122/86 Code: 8480-6 BMI: 30.5 Code: 82771-2 Heart Rate 1: 76 bpm Height: 6'1" Respiratory Rate: 20 bpm SpO2: 93% Tempera ture: 36.8 (C) / 98.2 (F) Weight: 231 lbs 12/04/2012 Blood Pressure 1: 124/86 Code: 8480-6 BMI: 30.5 Code: 01622-3 Heart Rate 1: 68 bpm Height: 6'1" Respiratory Rate: 20 bpm SpO2: 95% Tempera ture: 36.6 (C) / 97.8 (F) Weight: 231 lbs 08/14/2012 Blood Pressure 1: 126/70 Code: 8480-6 BMI: 29.4 Code: 43299-7 Heart Rate 1: 80 bpm Height: 6'1" Respiratory Rate: 20 bpm Temperature: 36 .8 (C) / 98.3 (F) Weight: 223 lbs 07/17/2012 Blood Pressure 1: 124/82 Code: 8480-6 BMI: 29.7 Code: 29530-4 Heart Rate 1: 80 bpm Height: 6'1" Respiratory Rate: 20 bpm Temperature: 36 .8 (C) / 98.2 (F) Weight: 225 lbs 03/20/2012 Blood Pressure 1: 124/78 Code: 8480-6 BMI: 29.3 Code: 29681-5 Heart Rate 1: 72 bpm Height: 6'1" Respiratory Rate: 20 bpm Temperature: 36 .6 (C) / 97.8 (F) Weight: 222 lbs 12/08/2011 Blood Pressure 1: 112/64 Code: 8480-6 BMI: 28.2 Code: 32520-7 Heart Rate 1: 78 bpm Height: 6'1" Temperature: 36.3 (C) / 97.4 (F) Weight: 214 lbs 08/11/2011 Blood Pressure 1: 128/70 Code: 8480-6 BMI: 27.6 Code: 54465-9 Heart Rate 1: 76 bpm Height: 6'1" [...] it Encounters Encounter Performer Location Codes Date ([id number]) OFFICE/OUTPATIENT VISIT EST Diagnosis: Other intervertebral disc degeneration, 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] Diagnosis: Lipoma[ICD10: D17.9] Martita Black [employer] CPT-4: 93275 01/08/2020 ([id number]) OFFICE/OUTPATIENT VISIT EST Diagnosis: COPD (chronic obstructive pulmonary disease)[ICD10: J44.9] Diagnosis: Mixed hyperlipidemia[ICD10: E78.2] Diagnosis: Coronary artery disease[ICD10: I25.10] Diagnosis: 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: G57.92] Martita GARCIA [employer] CPT-4: 51061 10/07/2019 ([id number]) OFFICE/OUTPATIENT VISIT EST Diagnosis: Cephalgia[ICD10: R51] Diagnosis: Family history of brain aneurysm[ICD10: Z82.49] Diagnosis: Other intervertebral disc degeneration, 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] Martita José [employer] Sofia SIMONS [facility] CPT-4: 24646 07/01/2019 ([id number]) OFFICE/OUTPATIENT VISIT EST Diagnosis: Atherosclerotic heart disease of [place] coronary artery without angina pectoris[ICD10: I25.10] Diagnosis: Bilateral primary osteoarthritis of knee[ICD10: M17.0] Diagnosis: Nicotine dependence, unspecified, uncomplicated[ICD10: F17.200] Diagnosis: Mixed hyperlipidemia[ICD10: E78.2] Martita RENTERIA [employer] CPT-4: 33267 03/27/2019 ([id number]) OFFICE/OUTPATIENT VISIT EST Diagnosis: Mixed hyperlipidemia[ICD10: E78.2] Diagnosis: Atherosclerotic heart disease of [place] coronary artery without angina pectoris[ICD10: I25.10] Diagnosis: Other intervertebral disc degeneration, 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] Martita MCGOVERN [employer] CPT-4: 56608 12/25/2018 ([id number]) OFFICE/OUTPATIENT VISIT EST Diagnosis: Mixed hyperlipidemia[ICD10: E78.2] Diagnosis: Other fatigue[ICD10: R53.83] Diagnosis: Encounter for screening for malignant neoplasm of prostate[ICD10: Z12.5] Diagnosis: Primary osteoarthritis, 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 [employer] CPT-4: 25908 03/02/2018 ([id number]) OFFICE/OUTPATIENT VISIT EST Diagnosis: Mixed hyperlipidemia[ICD10: E78.2] Martita RENTERIA [employer] CPT-4: 05404 08/01/2017 ([id number]) OFFICE/OUTPATIENT VISIT EST Diagnosis: Other spondylosis with radiculopathy, cervical region[ICD10: M47.22] Diagnosis: Pain in 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: M25.531] Diagnosis: Mixed hyperlipidemia[ICD10: E78.2] Diagnosis: 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] Martita SIMONS [employer] [facility] CPT-4: 9921 3 07/18/2017 ([id number]) OFFICE/OUTPATIENT VISIT EST Diagnosis: Other intervertebral disc degeneration, 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] Diagnosis: Cervicalgia[ICD10: M54.2] Martita YOUNG [employer] [facility] CPT-4: 76450 04/24/2017 ([id number]) OFFICE/OUTPATIENT VISIT EST Diagnosis: Cervicalgia[ICD10: M54.2] Diagnosis: Other intervertebral disc degeneration, 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] Diagnosis: Mixed hyperlipidemia[ICD10: E78.2] Martita Kristyn SIMONS [facility] CPT-4: 00983 01/04/2017 ([id number]) OFFICE/OUTPATIENT VISIT EST Diagnosis: Mixed hyperlipidemia[ICD10: E78.2] Diagnosis: Encounter for general adult medical examination with abnormal findings[ICD10: Z00.01] Martita SIMONS [employer] CPT-4: 28342 09/09/2016 ([id number]) PREV VISIT EST AGE 40-64 Diagnosis: Mixed hyperlipidemia[ICD10: E78.2] Diagnosis: Nicotine dependence, unspecified, uncomplicated[ICD10: F17.200] Diagnosis: Chronic obstructive pulmonary disease with acute lower respiratory infection[ICD10: J44.0] Diagnosis: Bilateral primary osteoarthritis of knee[ICD10: M17.0] Diagnosis: Pain in thoracic spine[ICD10: M54.6] Diagnosis: Pain in 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: M25.531] Diagnosis: Encounter for general adult medical examination with abnormal findings[ICD10: Z00.01] Martita José Migueljessiejoellen FERRARAMARTITA Sofia SIMONS [facility] CPT-4: 53548 09/07/2016 ([id number]) OFFICE/OUTPATIENT VISIT EST Diagnosis: Mixed hyperlipidemia[ICD10: E78.2] Martita SIMONS [employer] CPT-4: 51416 09/15/2015 ([id number]) OFFICE/OUTPATIENT VISIT EST Diagnosis: Acute bronchitis, unspecified[ICD10: J20.9] Diagnosis: Chronic obstructive pulmonary disease with acute lower respiratory infection[ICD10: J44.0] Diagnosis: Lumbago with sciatica, right side[ICD10: M54.41] Martita SIMONS DO [employer] CPT-4: 13203 08/31/2015 ([id number]) OFFICE/OUTPATIENT VISIT EST Diagnosis: HYPERLIPIDEMIA NEC/NOS[ICD9: 272.4] Diagnosis: TOBACCO USE DISORDER[ICD9: 305.1] Diagnosis: Osteoarthritis, knee[ICD9: 715.96] Diagnosis: Chronic back pain[ICD9: 724.5] Martita SIMONS DO [employer] CPT-4: 19390 04/14/2015 ([id number]) OFFICE/OUTPATIENT VISIT EST Diagnosis: HYPERLIPIDEMIA NEC/NOS[ICD9: 272.4] Diagnosis: COPD[ICD9: 496] Diagnosis: ROUTINE MEDICAL EXAM[ICD9: V70.0] Martita SIMONS DO [employer] CPT-4: 96886 11/10/2014 ([id number]) OFFICE/OUTPATIENT VISIT EST Diagnosis: Wrist pain[ICD9: 719.43] Diagnosis: Knee osteoarthritis[ICD9: 715.96] Diagnosis: Chronic back pain[ICD9: 724.5] Martita SIMONS DO [employer] CPT-4: 80922 10/07/2014 ([id number]) OFFICE/OUTPATIENT VISIT EST Diagnosis: HYPERLIPIDEMIA NEC/NOS[ICD9: 272.4] Diagnosis: Chronic back pain[ICD9: 724.5] Diagnosis: OSTEOARTH NOS-L/LEG[ICD9: 715.96] Martita SIMONS [facility] CPT-4: 33344 05/01/2014 ([id number]) OFFICE/OUTPATIENT VISIT EST Diagnosis: HYPERLIPIDEMIA NEC/NOS[ICD9: 272.4] Martita SIMONS [employer] [facility] CPT-4: 59394 04/29/2014 ([id number]) OFFICE/OUTPATIENT VISIT EST Diagnosis: ROUTINE MEDICAL EXAM[ICD9: V70.0] Diagnosis: HYPERLIPIDEMIA NEC/NOS[ICD9: 272.4] Martita SIMONS DO [facility] CPT-4: 97952 12/18/2013 OFFICE/OUTPATIENT VISIT EST Diagnosis: HYPERLIPIDEMIA NEC/NOS[ICD9: 272.4] Diagnosis: COPD[ICD9: 496] Diagnosis: Knee pain[ICD9: 719.46] Diagnosis: Wrist pain[ICD9: 719.43] Martita LAMAR [facility] CPT-4: 47840 12/17/2013 OFFICE/OUTPATIENT VISIT EST Diagnosis: COPD W/ ACUTE EXACERB[ICD9: 491.21] Diagnosis: COUGH[ICD9: 786.2] Martita SIMONS [employer] [facility] CPT-4: 57932 12/11/2012 ([id number]) OFFICE/OUTPATIENT VISIT EST Diagnosis: BRONCHITIS, ACUTE[ICD9: 466.0] Diagnosis: COPD exacerbation[ICD9: 491.21] Martita SIMONS DO [facility] CPT-4: 62415 12/04/2012 ([id number]) OFFICE/OUTPATIENT VISIT EST Diagnosis: DERMATITIS NOS[ICD9: 692.9] Diagnosis: TOBACCO USE DISORDER[ICD9: 305.1] Martita FERRARALIN Genaro SIMONS [employer] [facility] CPT-4: 70216 08/14/2012 ([id number]) OFFICE/OUTPATIENT VISIT EST Diagnosis: TOBACCO USE DISORDER[ICD9: 305.1] Diagnosis: PAIN, LOWER BACK[ICD9: 724.2] Diagnosis: PAIN IN THORACIC SPINE[ICD9: 724.1] Diagnosis: DERMATITIS NOS[ICD9: 692.9] Diagnosis: HYPERLIPIDEMIA NEC/NOS[ICD9: 272.4] Martita SIMONS [facility] CPT-4: 31452 07/17/2012 ([id number]) OFFICE/OUTPATIENT VISIT EST Diagnosis: HYPERLIPIDEMIA NEC/NOS[ICD9: 272.4] Diagnosis: OSTEOARTH NOS-L/LEG[ICD9: 715.96] Diagnosis: JOINT PAIN-L/LEG[ICD9: 719.46] Diagnosis: AC EMBL SUPRFCL UP EXT[ICD9: 453.81] Martita FISCHER Sofia AGUIRRENDJOELLEN [facility] CPT-4: 11730 03/20/2012 ([id number]) OFFICE/OUTPATIENT VISIT EST Diagnosis: PAIN, LOWER BACK[ICD9: 724.2] Diagnosis: Superficial venous thrombosis of arm[ICD9: 453.81] Diagnosis: Trigger finger, left[ICD9: 727.03] Martita RENTERIA SSohail [employer] [facility] CPT-4: 92689 12/08/2011 OFFICE/OUTPATIENT VISIT EST Diagnosis: Knee pain[ICD9: 719.46] Diagnosis: Knee osteoarthritis[ICD9: 715.96] Diagnosis: Thoracic back pain[ICD9: 724.1] Diagnosis: HYPERLIPIDEMIA NEC/NOS[ICD9: 272.4] Martita MOROCHO SSohail AG[employer]RENDER [facility] CPT-4: 45228 08/11/2011 ([id number]) OFFICE/OUTPATIENT VISIT, NEW Martita HULL [employer] CPT-4: 06399 05/26/2010 Plan of Care Planned Activity Notes [...] E78.2 10/07/2019 Appointment: Martita [facility]ons [facility] [phone] [id number] MEDICATION REVIEW 10/07/2019 Visit Diagnosis Plan: Other intervertebral disc degene ration, lumbar region Discussion: Stable on hydrocodone Add Vitamin D3 2000u daily Follow Up: 3 months ICD-9 : 722.52 ICD-10 : M51.36 07/01/2019 Visit Diagnosis Plan: Cephalgia Discussion: Discussed CT angiogram to rule out aneurysm but patient defers due to cost ICD-9 : 784.0 ICD-10 : R51 07/01/2019 Appointment: Martita Simonstel: [address] [place], [place] [phone] MEDICATION REVIEW 07/01/2019 Visit Diagnosis Plan: Atherosclerotic he art disease of [place] coronary artery without angina pectoris Discussion: Discussed [...] ICD-10 : E78.2 03/27/2019 Appointment: Martita Simonstel: [address] [place], [place] [phone] MEDICATION REVIEW 03/27/2019 Visit Diagnosis Plan: Other intervertebral disc degene ration, lumbar region Discussion: Stable on hydrocodone UDS done Follow Up: 3 months ICD-9 : 722.52 ICD-10 : M51.36 12/25/2018 Visit Diagnosis Plan: Atherosclerotic he art disease of [place] coronary artery without angina pectoris Discussion: Smoking Cessation Continue c urrent meds and fwup with cardiology ICD-9 : 414.00 ICD-10 : I25.10 12/25/2018 Appointment: Martita Simonstel: [address] [place], [place] [phone] MEDICATION REVIEW 12/25/2018 Appointment: Martita Simonstel: [address] [place], [place] [phone] OFFICE SURGERY 08/22/2018 Visit Diagnosis Plan: Pain [...] : M19.031 06/19/2018 Appointment: Martita Simons WPtel: [address] [place] [address] MEDICATION REVIEW 06/19/2018 Appointment: Martita Simons WPtel: [address] [place], [place] [phone] US CANCELED 06/05/2018 Appointment: Martita Simons WPtel: [address] [place], [place] [phone] [place] CANCELED 05/08/2018 Visit Diagnosis Plan: Pain [...] ICD-10 : M25.562 03/02/2018 Appointment: Marian Juares [address] [place] [address] MEDICATION REVIEW 03/02/2018 Patient Education: Patient Medication Summary Completed 03/02/2018 Appointment: Martita Simons WPtel: [address] [place] [address] UA 02/01/2018 Patient Education: Patient Medication Summary Completed 02/01/2018 Visit Diagnosis Plan: Other synovitis and tenosynoviti s, right hand Discussion: Right wrist cleansed with alcohol and betadine and injected laterally with 1cc 1% lidocaine with 20mg kenalog and 2mg dexamethasone, tolerated well with no complications, neosporin and bandage applied ICD-9 : 727.05 ICD-10 : M65.841 08/31/2017 Appointment: Martita Simons WPtel: [address] [place] [address] ACUTE ILLNESS 08/31/2017 Patient Education: Patient Medication Summary Completed 08/31/2017 Appointment: Martita Simons WPtel: [address] [place] [address] LAB 08/01/2017 Patient Education: Patient Medication Summary [...] : E78.2 07/18/2017 Appointment: Martita Simons WPtel: [address] [place], [place] [phone] MEDICATION REVIEW 07/18/2017 Patient Education: Patient Medication Summary Completed 07/18/2017 Visit Diagnosis Plan: Other intervertebral disc degene ration, lumbar region Discussion: Add PT For lumbar spine ICD-9 : 722.52 ICD-10 : M51.36 04/24/2017 Visit Diagnosis Plan: Cervicalgia Discussion: Continue PT then fwup after done with PT ICD-9 : 723.1 ICD-10 : M54.2 04/24/2017 Appointment: Martita Simons WPtel: [address] [place], [place] [phone] [place] MEDICATION REVIEW 04/24/2017 Patient Education: Patient Medication Summary Completed 04/24/2017 Patient Education: Patient Medication Summary Completed 03/22/2017 Care Plan: MRI NECK SPINE W/O DYE LOINC : 29361-0 Pending 03/22/2017 Visit Diagnosis Plan: Mixed hyperlipidemia [...] : M51.36 01/04/2017 Appointment: Martita Simons WPtel: [address] [place], [place] [id number] [place] 01/03 lm`sl 01/03-Confirmed MEDICATION REVIEW 01/04/2017 Patient Education: Patient Medication Summary Completed 01/04/2017 Visit Diagnosis Plan: Other enthesopathies, not elsewh ere classified Discussion: Right wrist injection as above ICD-9 : 727.05 ICD-10 : M77.8 09/12/2016 Visit Diagnosis Plan: Mixed hyperlipidemia Discussion: Lab discussed Restart lipitor/lifestyle change ICD-9 : 272.4 ICD-10 : E78.2 09/12/2016 Appointment: Martita Simons WPtel: [address] [place], [place] [id number] [place] 09/12 confirmed `sl INJECTION 09/12/2016 Patient Education: Patient Medication Summary Completed 09/12/2016 Appointment: Martita Simons WPtel: [address] [place], [place] [phone] [place] LAB 09/09/2016 Patient Education: Patient Medication Summary Completed 09/09/2016 Visit Diagnosis Plan: Nicotine dependence, unspecified , uncomplicated Discussion: Tobacco Abuse ICD-9 : 305.1 ICD-10 : F17.200 09/07/2016 Visit Diagnosis Plan: Chronic obstructiv e pulmonary disease with acute lower respiratory infection Discussion: Smoking Cessation Symbicort Check CXR ICD-9 : 496 ICD-10 : J44.0 09/07/2016 Visit Diagnosis Plan: Encounter for [facility] adult medical examination with abnormal findings Discussion: Update fasting lab Follow Up: 4 months ICD-9 : V70.0 ICD-10 : Z00.01 09/07/2016 Visit Diagnosis Plan: Mixed hyperlipidemia Discussion: Check CMP, Lipids ICD-9 : 272.4 ICD-10 : E78.2 09/07/2016 Visit Diagnosis Plan: Pain in right wrist Discussion: Will return for wrist injection ICD-9 : 719.43 ICD-10 : M25.531 09/07/2016 Appointment: Martita Simons WPtel: [address] [place] [address] 09/06 confirmed~sl Annual Well Visit 09/07/2016 Patient Education: Patient Medication Summary Completed 09/07/2016 Care Plan: CHEST X-RAY 2VW FRONTAL&LATL LOINC : 65792-8 Pending 09/07/2016 Visit Plan: Filled out [facility] Insurance Paperwork 08/05/2016 Patient Education: Patient Medication Summary Completed 08/05/2016 Appointment: Martita Simons WPtel: [address] [place], [place] [phone] [place] UA 04/25/2016 Patient Education: Patient Medication Summary Completed 04/25/2016 Appointment: Martita Simons WPtel: [address] [place], [place] [phone] [place] LAB 09/15/2015 Patient Education: Patient Medication Summary Completed 09/15/2015 Visit Plan: SVN with Albuterol 0.083% Q4 hrs and Q2hrs prn. Supportive care. Rest, Fluids, Tylenol/Motrin prn fever or bodyaches. Notify if worsening symptoms. Daily back stretches, moist heat, Biofreeze prn Flexeril/Prednisone Notify if low back pain persists--will need x-rays Patient seeing Chiropracter [employer] 08/31/2015 Appointment: Martita Simonstel: [address] [place], [place] [phone] 08/28/15 vm cn 08/28/15 appt confirmed cn FOLLOW UP 08/31/2015 Patient Education: Patient Medication Summary Completed 08/31/2015 Appointment: Martita Simons WPtel: [address] [place], [place] [phone] UA 07/29/2015 Visit Plan: CMP, Lipids today Patient st opped chol meds 1week ago Continue hydrocodone 04/14/2015 Appointment: Martita Simons WPtel: [address] [place], [place] [phone] FOLLOW UP 04/14/2015 Patient Education: Patient Medication Summary Completed 04/14/2015 Appointment: Martita Simonstel: [address] [place], [place] [id number] LAB 11/10/2014 Patient Education: Patient Medication Summary Completed 11/10/2014 Visit Plan: Fasting lab at end of September for Lipids/LFTs Continue hydrocodone at current dose Needs to be on low dose asprin 81mg daily With upcoming trip need to stop every 2hours and get out and stretch 10/07/2014 Appointment: Martita Simonstel: [address] [place], [place] [phone] [place] FOLLOW UP 10/07/2014 Patient Education: Patient Medication Summary Completed 10/07/2014 Visit Plan: Lab discussed Will keep meds the same Keep hydrocodone at current dose--discussed schedule change on May 05 05/01/2014 Appointment: Martita Simons WPtel: [address] [place], [place] [phone] 04/29 confirmed when in for labs; asked if he still wanted a reminder call on Monday and he said no he would be here. FOLLOW UP 05/01/2014 Patient Education: Patient Medication Summary Completed 05/01/2014 Appointment: Martita Simons WPtel: [address] [place], [place] [phone] LAB 04/29/2014 Patient Education: Patient Medication Summary Completed 04/29/2014 Appointment: Martita Simons WPtel: [address] [place] [address] LAB 12/18/2013 Patient Education: Patient Medication Summary Completed 12/18/2013 Appointment: Martita Simons WPtel: [address] [place] [address] 12/16 FOLLOW UP 12/17/2013 Patient Education: Patient Medication Summary Completed 12/17/2013 Visit Plan: Check CXR Start SVNs with al buterol 0.083% QID 12/11/2012 Appointment: Martita Simonstel: [address] [place] [address] FOLLOW UP 12/11/2012 Patient Education: Patient Medication Summary Completed 12/11/2012 Visit Plan: Zithromax for 1wk Prednisone for 1wk Symbicort 160/4.5 2p BID 12/04/2012 Appointment: Martita Simons WPtel: [address] [place] [address] ACUTE ILLNESS 12/04/2012 Patient Education: Patient Medication Summary Completed 12/04/2012 Visit Plan: Continue nystatin/TAC cream and add Lamisil for next month No lipitor for next month If rash persists then will need biopsy Trial of chantix--warned of suicidal ideation/depression Call in 1mo on finger lesion and chantix 08/14/2012 Appointment: Martita Simons WPtel: [id number] 08/13 no answer...08/13 pt called back and confirmed OFFICE SURGERY 08/14/2012 Patient Education: Patient Medication Summary Completed 08/14/2012 Appointment: Martita Simons WPtel: [address] [place], [place] [id number] FOLLOW UP 07/17/2012 Patient Education: Patient Medication Summary Completed 07/17/2012 Appointment: Martita Simons WPtel: [address] [place], [place] [phone] [place] Appointment was confirmed by CN on 06/29 07/04 pt called, in family, was in [place] just got yash k 07/03 - [facility] ACUTE ILLNESS 07/02/2012 Visit Plan: Obtain US results of RUE DC coumadin as has been 3mos and start Aspirin 325mg daily Check CMP, Lipids, CBC, ESR, CRP today 03/20/2012 Appointment: Martita Simons WPtel: [address] [place], [place] [phone] FOLLOW UP 03/20/2012 Patient Education: Patient Medication Summary Completed 03/20/2012 Appointment: Martita Simons WPtel: [address] [place], [place] [phone] Patient called 2 hours past appt. Said saw a specialist today and specialist is not concerned about blod clot so doesnt want to reschedule-CN FOLLOW UP 12/14/2011 Appointment: Martita Simons WPtel: [address] [place], [place] [phone] [place] FOLLOW UP 12/13/2011 Visit Plan: Continue coumadin--IM is fol lowing level--discussed will likely need 6-12wks Observe contusion to right lower back Fwup with ortho as scheduled 12/08/2011 Appointment: Martita Simons WPtel: [address] [place], [place] [phone] ACUTE ILLNESS 12/08/2011 Patient Education: Patient Medication Summary Completed 12/08/2011 Visit Plan: Check fasting lab when goes for pre-op lab including CMP, CBC, Lipids, TSH, Free T4, PSA, uric acid Needs colonoscopy Hydrocodone refilled #80 to [facility] 08/11/2011 Appointment: Martita Simons [facility]Ptel[facility] [phone] [id number] ESTABLISHED PATIENT 08/11/2011 Patient Education: Patient Medication Summary Completed 08/11/2011 Visit Plan: Obtain most recent lab resul ts Cont current meds Explained that cannot refill pain meds without current rx Discussed Synvisc injections and see ortho as oxycontin for knee arthritis is strong pain med 05/26/2010 Appointment: Martita Simons WPtel[facility] [phone] [id number] NEW PATIENT 05/26/2010 Patient Education: Patient Medication Summary Completed 05/26/2010 Instructions Comment . Filled out [employer] . SVN with Albuterol 0.083% Q4hrs [...] acid Needs colonoscopy Hydrocodone [facility] #[facility] . Obtain most recent lab results Cont [...]
--- OUTSIDE RECORDS SUMMARY | 2020-01-12 17:36 | XMS REPORT | CCD ---
Author Author Syd Simons D.O. 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 Name Role Phone Martita Simons D.O., PP Unavailable CCM Unavailable Summary Purpose Interface Exchange Insurance Providers Payer name Policy type / Coverage type Covered constitution party ID Effective Begin Date Effective End Date [facility] Commercial Insurance [id number] Unknown Family history Brother Diagnosis Age At Onset No Family Disease Entered N/A Father Diagnosis Age At Onset No Family Disease Entered N/A Mother Diagnosis Age At Onset No Family Disease Entered N/A Social History Social History Element Codes Description Effective Dates Tobacco history SNOMED CT: 84652172 Current every day smoker 06/2012 Number of [...] Active Co Q-10 100 mg capsule RxNorm: 497341 1 Capsule(s) Oral QD 01/08/20 20 No Stop Date Active Zyrtec 10 mg tablet RxNorm: 7568718 1 Tablet(s) Oral QD 01/08/2020 No Stop Date Active hydrocodone 10 mg-acetaminophen 325 mg tablet RxNorm: 979890 1 Tablet(s) Oral Q6H as needed for pain 12/26/2019 12/26/2019 Inactive (Response to an electronic controlled substance refill request - RxReferenceNumber: [id number]|1|0|1) hydrocodone 10 mg-acetaminophen 325 mg tablet RxNorm: 840404 1 Tablet(s) Oral Q6H as needed for pain 11/25/2019 11/25/2019 Inactive (Response to an electronic controlled substance refill request - RxReferenceNumber: [id number]|1|0|1) metoprolol succinate ER 25 mg tablet,extended release 24 hr RxNorm: 453765 1 Tablet(s) Oral QD 10/28/2019 10/28/2019 Inactive hydrocodone 10 mg-acetaminophen 325 mg tablet RxNorm: 965423 1 Tablet(s) PO Q6H as needed for pain 10/24/2019 11/24/2019 Inactive (Response to an electronic controlled substance refill request - RxReferenceNumber: [id number]|1|0|1) hydrocodone 10 mg-acetaminophen 325 mg tablet RxNorm: 639998 1 Tablet(s) PO Q6H as needed for pain 09/26/2019 10/23/2019 Inactive (Response to an electronic controlled substance refill request - RxReferenceNumber: [id number]|1|0|1) hydrocodone 10 mg-acetaminophen 325 mg tablet RxNorm: 074368 1 Tablet(s) PO Q6H as needed for pain 08/26/2019 09/25/2019 Inactive (Response to an electronic controlled substance refill request - RxReferenceNumber: [id number]|1|0|1) hydrocodone 10 mg-acetaminophen 325 mg tablet RxNorm: 258211 1 Tablet(s) PO Q6H as needed for pain 07/25/2019 08/25/2019 Inactive (Response to an electronic controlled substance refill request - RxReferenceNumber: [id number]|1|0|1) hydrocodone 10 mg-acetaminophen 325 mg tablet RxNorm: 130694 1 Tablet(s) PO Q6H as needed for pain 06/26/2019 07/24/2019 Inactive (Response to an electronic controlled substance refill request - RxReferenceNumber: [id number]|1|0|1) hydrocodone 10 mg-acetaminophen 325 mg tablet RxNorm: 570422 1 Tablet(s) PO Q6H as needed for pain 05/28/2019 06/25/2019 Inactive (Response to an electronic controlled substance refill request - RxReferenceNumber: [id number]|1|0|1) hydrocodone 10 mg-acetaminophen 325 mg tablet RxNorm: 084703 1 Tablet(s) PO Q6H as needed for pain 02/25/2019 05/27/2019 Inactive (Response to an electronic controlled substance refill request - RxReferenceNumber: [id number]|1|0|1) hydrocodone 10 mg-acetaminophen 325 mg tablet RxNorm: 751361 1 Tablet(s) PO Q6H as needed for pain 11/26/2018 02/24/2019 Inactive (Response to an electronic controlled substance refill request - RxReferenceNumber: [id number]|1|0|1) hydrocodone 10 mg-acetaminophen 325 mg tablet RxNorm: 506816 1 Tablet(s) PO Q6H as needed for pain 10/30/2018 11/25/2018 Inactive (Response to an electronic controlled substance refill request - RxReferenceNumber: [id number]|1|0|1) hydrocodone 10 mg-acetaminophen 325 mg tablet RxNorm: 294993 1 Tablet(s) PO Q6H as needed for pain 09/26/2018 10/29/2018 Inactive (Response to an electronic controlled substance refill request - RxReferenceNumber: [id number]|1|0|1) hydrocodone 10 mg-acetaminophen 325 mg tablet RxNorm: 184737 1 Tablet(s) PO Q6H as needed for pain 08/30/2018 09/25/2018 Inactive (Response to an electronic controlled substance refill request - RxReferenceNumber: [id number]|1|0|1) hydrocodone 10 mg-acetaminophen 325 mg tablet RxNorm: 618501 1 Tablet(s) PO Q6H as needed for pain 08/01/2018 08/29/2018 Inactive (Response to an electronic controlled substance refill request - RxReferenceNumber: [id number]|1|0|1) hydrocodone 10 mg-acetaminophen 325 mg tablet RxNorm: 450164 1 Tablet(s) PO Q6H as needed for pain 07/04/2018 07/31/2018 Inactive (Response to an electronic controlled substance refill request - RxReferenceNumber: [id number]|1|0|1) hydrocodone 10 mg-acetaminophen 325 mg tablet RxNorm: 434062 1 Tablet(s) PO Q6H as needed for pain 05/31/2018 07/03/2018 Inactive (Response to an electronic controlled substance refill request - RxReferenceNumber: [id number]|1|0|1) hydrocodone 10 mg-acetaminophen 325 mg tablet RxNorm: 657867 1 Tablet(s) PO Q6H as needed for pain 05/01/2018 05/30/2018 Inactive (Response to an electronic controlled substance refill request - RxReferenceNumber: [id number]|1|0|1) hydrocodone 10 mg-acetaminophen 325 mg tablet RxNorm: 755694 1 Tablet(s) PO Q6H as needed for pain 04/03/2018 04/30/2018 Inactive (Response to an electronic controlled substance refill request - RxReferenceNumber: [id number]|1|0|1) hydrocodone 10 mg-acetaminophen 325 mg tablet RxNorm: 176995 1 Tablet(s) PO Q6H as needed for pain 02/26/2018 04/02/2018 Inactive (Response to an electronic controlled substance refill request - RxReferenceNumber: [id number]|1|0|1) clotrimazole-betamethasone 1 %-0.05 % topical cream RxNorm: 535762 TOP As Directed CALL IF NO IMPROVEMENT IN 2 WEEKS 01/30/2018 01/29/2018 Inact kole [SAVINGS FOR UNINSURED PATIENTS -- BIN:[id number], PCN: [id number], Group: [id number], ID# [id number], Process claim through [employer], for questions: . THIS IS NOT INSURANCE.] hydrocodone 10 mg-acetaminophen 325 mg tablet RxNorm: 906684 1 Tablet(s) PO Q6H as needed for pain 01/29/2018 02/25/2018 Inactive (Response to an electronic controlled substance refill request - RxReferenceNumber: [id number]|1|0|1) hydrocodone 10 mg-acetaminophen 325 mg tablet RxNorm: 814222 1 Tablet(s) PO Q6H as needed for pain 12/28/2017 01/28/2018 Inactive (Response to an electronic controlled substance refill request - RxReferenceNumber: [id number]|1|0|1) hydrocodone 10 mg-acetaminophen 325 mg tablet RxNorm: 313676 1 Tablet(s) PO Q6H as needed for pain 11/29/2017 12/27/2017 Inactive (Response to an electronic controlled substance refill request - RxReferenceNumber: [id number]|1|0|1) hydrocodone 10 mg-acetaminophen 325 mg tablet RxNorm: 253100 1 Tablet(s) PO Q6H as needed for pain 11/02/2017 11/28/2017 Inactive (Response to an electronic controlled substance refill request - RxReferenceNumber: [id number]|1|0|1) hydrocodone 10 mg-acetaminophen 325 mg tablet RxNorm: 391837 1 Tablet(s) PO Q6H as needed for pain 10/02/2017 11/01/2017 Inactive (Response to an electronic controlled substance refill request - RxReferenceNumber: [id number]|1|0|1) hydrocodone 10 mg-acetaminophen 325 mg tablet RxNorm: 630309 1 Tablet(s) PO Q6H as needed for pain 08/30/2017 10/01/2017 Inactive (Response to an electronic controlled substance refill request - RxReferenceNumber: [id number]|1|0|1) hydrocodone 10 mg-acetaminophen 325 mg tablet RxNorm: 348927 1 Tablet(s) PO Q6H as needed for pain 08/01/2017 08/29/2017 Inactive (Response to an electronic controlled substance refill request - RxReferenceNumber: [id number]|1|0|1) hydrocodone 10 mg-acetaminophen 325 mg tablet RxNorm: 513727 1 Tablet(s) PO Q6H as needed for pain 06/26/2017 07/31/2017 Inactive (Response to an electronic controlled substance refill request - RxReferenceNumber: [id number]|1|0|1) hydrocodone 10 mg-acetaminophen 325 mg tablet RxNorm: 009323 1 Tablet(s) PO Q6H as needed for pain 06/26/2017 06/30/2019 Inactive (Response to an electronic controlled substance refill request - RxReferenceNumber: [id number]|1|0|1) hydrocodone 10 mg-acetaminophen 325 mg tablet RxNorm: 550221 1 Tablet(s) PO Q6H as needed for pain 03/27/2017 06/25/2017 Inactive (Response to an electronic controlled substance refill request - RxReferenceNumber: [id number]|1|0|1) hydrocodone 10 mg-acetaminophen 325 mg tablet RxNorm: 307373 1 Tablet(s) PO Q6H as needed for pain 02/23/2017 03/26/2017 Inactive (Response to an electronic controlled substance refill request - RxReferenceNumber: [id number]|1|0|1) hydrocodone 10 mg-acetaminophen 325 mg tablet RxNorm: 929334 1 Tablet(s) PO Q6H as needed for pain 01/24/2017 02/22/2017 Inactive (Response to an electronic controlled substance refill request - RxReferenceNumber: [id number]|1|0|1) hydrocodone 10 mg-acetaminophen 325 mg tablet RxNorm: 449822 1 Tablet(s) PO Q6H as needed for pain 12/27/2016 06/30/2019 Inactive (Response to an electronic controlled substance refill request - RxReferenceNumber: [id number]|1|0|1) hydrocodone 10 mg-acetaminophen 325 mg tablet RxNorm: 884086 1 Tablet(s) PO Q6H as needed for pain 12/27/2016 01/23/2017 Inactive (Response to an electronic controlled substance refill request - RxReferenceNumber: [id number]|1|0|1) hydrocodone 10 mg-acetaminophen 325 mg tablet RxNorm: 982916 1 Tablet(s) PO Q6H as needed for pain 11/23/2016 12/26/2016 Inactive (Response to an electronic controlled substance refill request - RxReferenceNumber: [id number]|1|0|1) hydrocodone 10 mg-acetaminophen 325 mg tablet RxNorm: 788283 1 Tablet(s) PO Q6H as needed for pain 10/20/2016 11/22/2016 Inactive (Response to an electronic controlled substance refill request - RxReferenceNumber: [id number]|1|0|1) hydrocodone 10 mg-acetaminophen 325 mg tablet RxNorm: 303345 1 Tablet(s) PO Q6H as needed for pain 09/26/2016 10/19/2016 Inactive (Response to an electronic controlled substance refill request - RxReferenceNumber: [id number]|1|0|1) hydrocodone 10 mg-acetaminophen 325 mg tablet RxNorm: 536364 1 Tablet(s) PO Q6H as needed for pain 07/27/2016 09/25/2016 Inactive (Response to an electronic controlled substance refill request - RxReferenceNumber: [id number]|1|0|1) hydrocodone 10 mg-acetaminophen 325 mg tablet RxNorm: 646298 1 Tablet(s) PO Q6H as needed for pain 05/04/2016 07/26/2016 Inactive (Response to an electronic controlled substance refill request - RxReferenceNumber: [id number]|1|0|1) hydrocodone 10 mg-acetaminophen 325 mg tablet RxNorm: 082272 1 Tablet(s) PO Q6H as needed for pain 03/31/2016 05/03/2016 Inactive (Response to an electronic controlled substance refill request - RxReferenceNumber: [id number]|1|0|1) citalopram 10 mg tablet RxNorm: 211020 1 Tablet(s) PO QD 09/28/2015 0 09/27/2015 Inactive citalopram 10 mg tablet RxNorm: 506939 1 Tablet(s) PO QD 09/28/2015 0 09/06/2016 Inactive Wellbutrin SR 150 mg tablet,sustained-release RxNorm: 380466 1 Tablet(s) PO QAM 09/25/2015 09/06/2016 Inactive prednisone 20 mg tablet RxNorm: 226286 1 Tablet(s) PO T ID for 3 days then 1 po BID for 3 days then one daily for 3 days 08/31/2015 09/06/2016 Inactiv e cyclobenzaprine 10 mg tablet RxNorm: 885907 1 Tablet(s) PO TID as needed for muscle spasm 08/31/2015 07/17/2017 Inactive hydrocodone 10 mg-acetaminophen 325 mg tablet RxNorm: 017782 1 Tablet(s) PO Q6H as needed for pain 08/26/2015 03/30/2016 Inactive (Response to an electronic controlled substance refill request - RxReferenceNumber: [id number]|1|0|1) hydrocodone 10 mg-acetaminophen 325 mg tablet RxNorm: 769809 1 Tablet(s) PO Q6H as needed for pain 07/28/2015 08/25/2015 Inactive (Response to an electronic controlled substance refill request - RxReferenceNumber: [id number]|1|0|1) hydrocodone 10 mg-acetaminophen 325 mg tablet RxNorm: 477996 1 Tablet(s) PO Q6H as needed for pain 06/23/2015 07/27/2015 Inactive (Response to an electronic controlled substance refill request - RxReferenceNumber: [id number]|1|0|1) hydrocodone 10 mg-acetaminophen 325 mg tablet RxNorm: 935731 1 Tablet(s) PO Q6H as needed for pain 05/21/2015 06/22/2015 Inactive (Response to an electronic controlled substance refill request - RxReferenceNumber: [id number]|1|0|1) azithromycin 250 mg tablet RxNorm: 096927 2 Tablet(s) P O on day one, then one tablet on days 2 - 5 04/27/2015 08/30/2015 Inactive hydrocodone 10 mg-acetaminophen 325 mg tablet RxNorm: 640618 1 Tablet(s) PO Q6H as needed for pain 03/25/2015 05/20/2015 Inactive (Response to an electronic controlled substance refill request - RxReferenceNumber: [id number]|1|0|1) hydrocodone 10 mg-acetaminophen 325 mg tablet RxNorm: 911339 1 Tablet(s) PO Q6H as needed for pain 02/24/2015 03/24/2015 Inactive (Response to an electronic controlled substance refill request - RxReferenceNumber: [id number]|1|0|1) hydrocodone 10 mg-acetaminophen 325 mg tablet RxNorm: 541913 1 Tablet(s) PO Q6H as needed for pain 01/23/2015 02/23/2015 Inactive (Response to an electronic controlled substance refill request - RxReferenceNumber: [id number]|1|0|1) hydrocodone 10 mg-acetaminophen 325 mg tablet RxNorm: 658321 1 Tablet(s) PO Q6H as needed for pain 12/23/2014 01/22/2015 Inactive (Response to an electronic controlled substance refill request - RxReferenceNumber: [id number]|1|0|1) hydrocodone 10 mg-acetaminophen 325 mg tablet RxNorm: 585398 1 Tablet(s) PO Q6H as needed for pain 11/24/2014 12/22/2014 Inactive (Response to an electronic controlled substance refill request - RxReferenceNumber: [id number]|1|0|1) hydrocodone 10 mg-acetaminophen 325 mg tablet RxNorm: 648797 1 Tablet(s) PO Q6H as needed for pain 10/28/2014 11/23/2014 Inactive (Response to an electronic controlled substance refill request - RxReferenceNumber: [id number]|1|0|1) hydrocodone 10 mg-acetaminophen 325 mg tablet RxNorm: 063181 1 Tablet(s) PO Q6H as needed for pain 09/25/2014 10/27/2014 Inactive (Response to an electronic controlled substance refill request - RxReferenceNumber: [id number]|1|0|1) Lipitor 80 mg tablet RxNorm: 939455 1 Tablet(s) PO QHS 09/24/2014 Inactive hydrocodone 10 mg-acetaminophen 325 mg tablet RxNorm: 088463 1 Tablet(s) PO Q6H as needed for pain 07/30/2014 09/24/2014 Inactive (Response to an electronic controlled substance refill request - RxReferenceNumber: [id number]|1|0|1) hydrocodone 10 mg-acetaminophen 325 mg tablet RxNorm: 291137 1 Tablet(s) PO Q6H as needed for pain 05/27/2014 07/29/2014 Inactive (Response to an electronic controlled substance refill request - RxReferenceNumber: [id number]|1|0|1) clotrimazole-betamethasone 1 %-0.05 % topical cream RxNorm: 138671 TOP As Directed 05/01/2014 08/30/2015 Inactive [SAVINGS FOR UNI NSURED PATIENTS -- BIN:[id number], PCN: [id number], Group: [id number], ID# [id number], Process claim through [employer], for questions: . THIS IS NOT INSURANCE.] Lipitor 80 mg tablet RxNorm: 965213 1 Tablet(s) PO QHS 04/28/2014 Inactive hydrocodone 10 mg-acetaminophen 325 mg tablet RxNorm: 983468 1 Tablet(s) PO Q6H as needed for pain 04/28/2014 05/26/2014 Inactive (Response to an electronic controlled substance refill request - RxReferenceNumber: [id number]|1|0|1) hydrocodone 10 mg-acetaminophen 325 mg tablet RxNorm: 734805 1 Tablet(s) PO Q6H as needed for pain 03/27/2014 04/27/2014 Inactive (Response to an electronic controlled substance refill request - RxReferenceNumber: [id number]|1|0|1) hydrocodone 10 mg-acetaminophen 325 mg tablet RxNorm: 907705 1 Tablet(s) PO Q6H as needed for pain 12/20/2013 12/20/2013 Inactive (Appended: Co ntrolled substance eRx refill - RxReferenceNumber: [id number]|1|0|1) hydrocodone 10 mg-acetaminophen 325 mg tablet RxNorm: 543351 TAKE 1 TABLET BY MOUTH EVERY 6 HOURS NEEDED FOR PAIN 12/20/2013 01/12/2014 Inactive (Response to an electronic controlled substance refill request - RxReferenceNumber: [id number]|1|0|1) hydrocodone 10 mg-acetaminophen 325 mg tablet RxNorm: 125593 1 Tablet(s) PO Q6H as needed for pain 09/03/2013 12/19/2013 Inactive (Appended: Co ntrolled substance eRx refill - RxReferenceNumber: [id number]|1|0|1) hydrocodone 10 mg-acetaminophen 325 mg tablet RxNorm: 236884 Tablet(s) PO TAKE 1 TABLET BY MOUTH EVERY 6 HOURS NEEDED FOR PAIN 08/08/2013 09/03/2013 Inactive (Appended: Controlled substance eRx refill - RxReferenceNumber: [id number]|1|0|1) hydrocodone 10 mg-acetaminophen 325 mg tablet RxNorm: 353270 Tablet(s) PO TAKE 1 TABLET BY MOUTH EVERY 6 HOURS NEEDED FOR PAIN 07/11/2013 08/07/2013 Inactive (Appended: Controlled substance eRx refill - RxReferenceNumber: [id number]|1|0|1) hydrocodone 10 mg-acetaminophen 325 mg tablet RxNorm: 704055 2 Tablet(s) PO TAKE 1 TABLET BY MOUTH EVERY 6 HOURS NEEDED FOR PAIN 06/12/2013 3 Inactive (Appended: Controlled substance eRx ref ill - RxReferenceNumber: [id number]|1|0|1) hydrocodone 10 mg-acetaminophen 325 mg tablet RxNorm: 269711 2 1 Tablet(s) PO Q6H NEEDED FOR PAIN 05/15/2013 06/12/2013 Inactive (Appended: Co ntrolled substance eRx refill - RxReferenceNumber: [id number]|1|0|1) hydrocodone 10 mg-acetaminophen 325 mg tablet RxNorm: 595964 2 Tablet(s) PO TAKE 1 TO 2 TABLETS BY MOUTH EVERY 6 HOURS NEEDED FOR PAIN 04/18/2013 No Stop Date Active (Appended: Controlled substa nce eRx refill - RxReferenceNumber: [id number]|1|0|1) hydrocodone 10 mg-acetaminophen 325 mg tablet RxNorm: 692366 2 Tablet(s) PO TAKE 1 TO 2 TABLETS BY MOUTH EVERY 6 HOURS NEEDED FOR PAIN 03/19/2013 No Stop Date Active (Appended: Controlled substa nce eRx refill - RxReferenceNumber: [id number]|1|0|1) hydrocodone 10 mg-acetaminophen 325 mg tablet RxNorm: 898424 2 Tablet(s) PO TAKE 1 TO 2 TABLETS BY MOUTH EVERY 6 HOURS NEEDED FOR PAIN 02/06/2013 Inactive (Appended: Controlled substance eRx refi ll - RxReferenceNumber: [id number]|1|0|1) hydrocodone 10 mg-acetaminophen 325 mg tablet RxNorm: 149996 2 Tablet(s) PO TAKE 1 TO 2 TABLETS BY MOUTH EVERY 6 HOURS NEEDED FOR PAIN 01/08/201304/2013 Inactive (Appended: Controlled substance eRx ref ill - RxReferenceNumber: [id number]|1|0|1) Zithromax 250 mg tablet RxNorm: 608437 2 Tablet(s) PO QD 12/04/2012 0 12/10/2012 Inactive prednisone 20 mg tablet RxNorm: 035314 1 Tablet(s) PO BID 12/04/2012 12/10/2012 Inactive atorvastatin 40 mg tablet RxNorm: 481667 1 Tablet(s) PO QD 11/09/19 13 12/17/2013 Inactive hydrocodone 10 mg-acetaminophen 325 mg tablet RxNorm: 422052 2 Tablet(s) PO TAKE 1 TO 2 TABLETS BY MOUTH EVERY 6 HOURS NEEDED FOR PAIN 10/18/201205/2013 Inactive (Appended: Controlled substance eRx ref ill - RxReferenceNumber: [id number]|1|0|1) hydrocodone 10 mg-acetaminophen 325 mg tablet RxNorm: 568988 2 1-2 Tablet(s) PO Q6H as needed for pain 09/06/2012 10/18/2012 Inactive Lamisil 250 mg tablet RxNorm: 082756 1 Tablet(s) PO QD 08/14/2012 Inactive atorvastatin 40 mg tablet RxNorm: 491018 1 Tablet(s) PO QD 08/08/19 13 11/05/2012 Inactive prednisone 20 mg tablet RxNorm: 058038 1 Tablet(s) PO BID 07/17/2012 07/23/2012 Inactive Wellbutrin SR 150 mg tablet,extended release RxNorm: 875444 1 T ablet(s) PO BID 07/17/2012 08/13/2012 Inactive meloxicam 15 mg tablet RxNorm: 331764 1 Tablet(s) PO QD for pain 07/16/2012 Inactive atorvastatin 40 mg tablet RxNorm: 908893 1 Tablet(s) PO QD 06/27/2008/07/2012 Inactive hydrocodone-acetaminophen 10 mg-325 mg tablet RxNorm: 774133 2 1-2 Tablet(s) PO Q6H as needed for pain 05/23/2012 No Stop Date Active hydrocodone-acetaminophen 10 mg-325 mg tablet RxNorm: 001288 2 1-2 Tablet(s) PO Q6H as needed for pain 04/24/2012 No Stop Date Active hydrocodone-acetaminophen 10 mg-325 mg tablet RxNorm: 071976 2 1-2 Tablet(s) PO Q6H as needed for pain 02/08/2012 No Stop Date Active hydrocodone-acetaminophen 10 mg-325 mg Tab RxNorm: 7081284 1-2 Tablet(s) PO Q6H as needed for pain 01/02/2012 No Stop Date Active hydrocodone-acetaminophen 10 mg-325 mg Tab RxNorm: 5590627 1-2 Tablet(s) PO Q6H as needed for pain 11/29/2011 No Stop Date Active hydrocodone-acetaminophen 10 mg-325 mg Tab RxNorm: 6186792 1-2 Tablet(s) PO Q6H as needed for pain 10/24/2011 No Stop Date Active hydrocodone-acetaminophen 10 mg-325 mg Tab RxNorm: 8257254 1-2 Tablet(s) PO Q6H as needed for pain 10/07/2011 No Stop Date Active simvastatin 40 mg Tab RxNorm: 163040 1 Tablet(s) PO QHS 08/11/2011 Inactive Symbicort 160 mcg-4.5 mcg/actuation HFA aerosol inhaler RxNo rm: 4105519 2 INH QD No Start Date Active atorvastatin 40 mg tablet RxNorm: 594411 1 Tablet(s) PO QD No Start D ate Active aspirin 81 mg tablet RxNorm: 368702 1 Tablet(s) PO QD No Start Date Active Vitamin D3 2,000 unit tablet RxNorm: 273887 3 Tablet(s) PO No Start D ate Active lisinopril 5 mg tablet RxNorm: 509801 1 Tablet(s) PO QD No Start Date Active hydrocodone-acetaminophen 10 mg-325 mg Tab RxNorm: 8279423 1-2 Tablet(s) PO Q6H as needed for pain No Start Date 10/06/2011 Inactive clopidogrel 75 mg tablet RxNorm: 189615 1 Tablet(s) PO QD No Start Date 01/07/2020 Inactive Wellbutrin SR 150 mg tablet,sustained-release RxNorm: 152582 1 Tablet(s) PO QAM No Start Date 09/24/2015 Inactive metoprolol succinate ER 25 mg tablet,extended release 24 hr RxNorm: 190211 1 Tablet(s) PO QD No Start Date 10/27/2019 Inactive OxyContin 15 mg 12 hr Tab RxNorm: 8940152 1 Tablet(s) PO BID No Sta rt Date 08/10/2011 Inactive warfarin 5 mg Tab RxNorm: 007327 1 Tablet(s) PO QD No Start Date 03/01 Inactive albuterol sulfate 1.25 mg/3 mL Neb Solution RxNorm: 335978 1 Unit Dose INH prn wheezing, congestion, shortness of breath No Start Date 04/30/2014 Inacti ve azithromycin 250 mg tablet RxNorm: 895843 2 Tablet(s) P O on day one, then one tablet on days 2 - 5 No Start Date 04/26/2015 Inactive warfarin 10 mg Tab RxNorm: 686944 1 Tablet(s) PO QOD No Start Date Inactive Symbicort Inhl RxNorm: Inhalation No Start Date 12/16/2013 Inactive Trilipix 135 mg Cap RxNorm: 741259 1 Capsule(s) PO QD No Start Date 0 12/07/2011 Inactive Chantix Starting Month Box 0.5 mg (11)-1 mg (42) table ts in dose pack RxNorm: 579005 Tablet(s) PO as directed No Start Date 12/03/2012 Inactive clotrimazole-betamethasone 1 %-0.05 % topical cream RxNorm: 332956 TOP As Directed No Start Date 04/30/2014 Inactive nystatin-triamcinolone 100,000 unit/g-0.1 % Topical Cream Rx Norm: 6494925 Application TOP BID for 2-4weeks No Start Date 12/03/2012 Inactive Lovastatin 20 mg Tab RxNorm: 099530 1 Tablet(s) PO QHS No Start Date 08/10/2011 Inactive krill oil oral RxNorm: 18398 oral No Start Date 06/30/2019 Inacti ve warfarin 7.5 mg Tab RxNorm: 564419 1 Tablet(s) PO QOD No Start Date 1 09/16/2011 Inactive Lipitor 80 mg tablet RxNorm: 359758 1 Tablet(s) PO QHS No Start Date 04/27/2014 Inactive simvastatin 40 mg Tab RxNorm: 918224 1 Tablet(s) PO QHS No Start Da te 08/10/2011 Inactive Gemfibrozil 600 mg Tab RxNorm: 223121 1 Tablet(s) PO QHS No Start D ate 08/10/2011 Inactive Medication Administered No Medication Administered data Immunizations No Immunization data Results Observation Observation Code Item Item Code Result Date [facility] Location COMPLETE BLOOD COUNT [id number] WBC 9.7 10e9/L 06/19/20 18 Unknown COMPLETE BLOOD COUNT [id number] RBC 5.35 10e12/L 2017 Unknown COMPLETE BLOOD COUNT [id number] HEMOGLOBIN 17.1 g/dL 06/19/20 18 Unknown COMPLETE BLOOD COUNT [id number] HEMATOCRIT 52.4 % 06/19/20 18 Unknown COMPLETE BLOOD COUNT [id number] MCV 97.9 fL 8 Unknown COMPLETE BLOOD COUNT [id number] MCH 32.0 pg 8 Unknown COMPLETE BLOOD COUNT [id number] MCHC 32.6 g/dL 8 Unknown COMPLETE BLOOD COUNT [id number] PLATELET COUNT 257 10e9/L Unknown COMPLETE BLOOD COUNT [id number] Mean Plt Volume 11.2 fL Unknown COMPLETE BLOOD COUNT [id number] Neut Auto 54.6 % 8 Unknown COMPLETE BLOOD COUNT [id number] Lymph Auto 33.3 % 06/19/20 18 Unknown COMPLETE BLOOD COUNT [id number] [place] Auto 9.1 % 8 Unknown COMPLETE BLOOD COUNT [id number] RDW 14.4 % 8 Unknown COMPLETE BLOOD COUNT [id number] Eos Auto 2.6 % 8 Unknown COMPLETE BLOOD COUNT [id number] Baso Auto 0.4 % 8 Unknown COMPLETE BLOOD COUNT [id number] Neutrophil Abs 5.30 10e9/L Unknown COMPLETE BLOOD COUNT [id number] Lymphocyte Abs 3.23 10e9/L Unknown COMPLETE BLOOD COUNT [id number] Monocyte Abs 0.88 10e9/L 06/01 Unknown COMPLETE BLOOD COUNT [id number] Eosinophil Abs 0.25 10e9/L Unknown COMPLETE BLOOD COUNT [id number] Basophil Abs 0.04 10e9/L 06/01 Unknown COMPLETE BLOOD COUNT [id number] RDW-SD 51.8 fL 8 Unknown LIPID GROUP [id number] Cholesterol 222 mg/dL 06/19/2018 Unkno wn [facility] 05148 Triglyceride 111 mg/dL 06/19/2018 Unkn own [facility] 63355 HDL CHOLESTEROL 37 mg/dL 06/19/2018 U nknown [facility] 35133 Chol/HDL Ratio 6.00 ratio 06/19/2018 U nknown [facility] 67042 NON-HDL Chol 185 mg/dL 06/19/2018 Unkn own [facility] 89047 LDL Cholesterol 163 mg/dL 06/19/2018 U nknown VITAMIN B 12 56708 VITAMIN B12 532 pg/mL 06/19/2018 Unkn own THYROID STIMULATING HORMONE 79158 TSH 2.685 uIU/mL 06/19/2018 Unknown COMPREHENSIVE METABOLIC 71156 AST 15 U/L 2017 Unknown COMPREHENSIVE METABOLIC 74790 ALT 21 U/L 2017 Unknown COMPREHENSIVE METABOLIC 23128 BUN 16 mg/dL 2017 Unknown COMPREHENSIVE METABOLIC 05117 ALBUMIN 4.1 g/dL 2017 Unknown COMPREHENSIVE METABOLIC 39553 CHLORIDE 99 mmol/L 2017 Unknown COMPREHENSIVE METABOLIC 86364 Bili Total 0.4 mg/dL 06/19 Unknown COMPREHENSIVE METABOLIC 77935 ALK PHOS 43 U/L 2017 Unknown COMPREHENSIVE METABOLIC 51431 SODIUM 136 mmol/L 06/19 Unknown COMPREHENSIVE METABOLIC 57553 CREATININE 0.82 mg/dL 06/01 Unknown COMPREHENSIVE METABOLIC 81530 CALCIUM 9.5 mg/dL 2017 Unknown COMPREHENSIVE METABOLIC 84487 POTASSIUM 5.2 mmol/L 06/19 Unknown COMPREHENSIVE METABOLIC 90924 Total Protein 6.7 g/dL Unknown COMPREHENSIVE METABOLIC 29786 Glucose 81 mg/dL 2017 Unknown COMPREHENSIVE METABOLIC 84469 Bicarbonate 30 mmol/L 06/01 Unknown COMPREHENSIVE METABOLIC 33704 AGAP 7 mmol/L 2017 Unknown FREE T4 87054 T4 Free 0.85 ng/dL 06/19/2018 Unknown GFR CALC 5145324 GFR Non Afr Amr >60 mL/min 06/19/2018 Un known GFR CALC 6433619 GFR Afr Amr >60 mL/min 06/19/2018 Unknow n VITAMIN D TOTAL (25 HYDROXY) 93028 Vitamin D 25 OH 24.1 ng/mL 06/19/2018 Unknown PSA EQUIMOLAR TROY 38078 PSA Total 0.88 ng/mL 8 Unknown GFR CALC 3873179 GFR Afr Amr >60 mL/min 09/09/2016 Unknow n GFR CALC 5607747 GFR Non Afr Amr >60 mL/min 09/09/2016 Un known COMPLETE BLOOD COUNT 8140031 WBC 11.7 10e9/L 017 Unknown COMPLETE BLOOD COUNT 3124723 RBC 5.54 10e12/L 2016 Unknown COMPLETE BLOOD COUNT 1777427 HEMOGLOBIN 17.6 g/dL 09/09/19 17 Unknown COMPLETE BLOOD COUNT 9024595 HEMATOCRIT 52.3 % 09/09/19 17 Unknown COMPLETE BLOOD COUNT 8098238 MCV 94.4 fL 7 Unknown COMPLETE BLOOD COUNT 5666316 MCH 31.8 pg 7 Unknown COMPLETE BLOOD COUNT 0491096 MCHC 33.7 g/dL 7 Unknown COMPLETE BLOOD COUNT 5908817 PLATELET COUNT 259 10e9/L 04/2017 Unknown COMPLETE BLOOD COUNT 2139309 Mean Plt Volume 11.2 fL 04/2017 Unknown COMPLETE BLOOD COUNT 9239128 Neut Auto 53.6 % 7 Unknown COMPLETE BLOOD COUNT 7294436 Lymph Auto 36.2 % 09/09/19 17 Unknown COMPLETE BLOOD COUNT 8930158 [place] Auto 7.9 % 7 Unknown COMPLETE BLOOD COUNT 0979043 Eos Auto 2.1 % 7 Unknown COMPLETE BLOOD COUNT 7940992 RDW 14.2 % 7 Unknown COMPLETE BLOOD COUNT 2557514 Baso Auto 0.2 % 7 Unknown COMPLETE BLOOD COUNT 5470423 Neutrophil Abs 6.27 10e9/L Unknown COMPLETE BLOOD COUNT 7372847 Lymphocyte Abs 4.24 10e9/L Unknown COMPLETE BLOOD COUNT 4257086 Monocyte Abs 0.92 10e9/L 08/31 Unknown COMPLETE BLOOD COUNT 5572415 Eosinophil Abs 0.25 10e9/L Unknown COMPLETE BLOOD COUNT 2233906 RDW-SD 48.1 fL 7 Unknown COMPLETE BLOOD COUNT 8659779 Basophil Abs 0.02 10e9/L 08/31 Unknown COMPREHENSIVE METABOLIC 39035 AST 19 U/L 2016 Unknown COMPREHENSIVE METABOLIC 26464 ALT 25 U/L 2016 Unknown COMPREHENSIVE METABOLIC 14815 BUN 16 mg/dL 2016 Unknown COMPREHENSIVE METABOLIC 22969 ALBUMIN 4.8 g/dL 2016 Unknown COMPREHENSIVE METABOLIC 88324 CHLORIDE 100 mmol/L 09/09 Unknown COMPREHENSIVE METABOLIC 51317 Bili Total 0.7 mg/dL 09/09 Unknown COMPREHENSIVE METABOLIC 55624 ALK PHOS 50 U/L 2016 Unknown COMPREHENSIVE METABOLIC 14743 SODIUM 136 mmol/L 09/09 Unknown COMPREHENSIVE METABOLIC 12490 CREATININE 0.98 mg/dL 08/31 Unknown COMPREHENSIVE METABOLIC 03766 CALCIUM 9.8 mg/dL 2016 Unknown COMPREHENSIVE METABOLIC 43670 POTASSIUM 4.6 mmol/L 09/09 Unknown COMPREHENSIVE METABOLIC 54980 Total Protein 7.5 g/dL Unknown COMPREHENSIVE METABOLIC 78843 Glucose 104 mg/dL 2016 Unknown COMPREHENSIVE METABOLIC 61472 Bicarbonate 27 mmol/L 08/31 Unknown COMPREHENSIVE METABOLIC 97613 AGAP 9 mmol/L 2016 Unknown FREE T4 03127 T4 Free 1.04 ng/dL 09/09/2016 Unknown THYROID STIMULATING HORMONE 00053 TSH 1.618 uIU/mL 09/09/2016 Unknown [facility] 65230 Cholesterol 251 mg/dL 09/09/2016 Unkno wn [facility] 80383 Triglyceride 153 mg/dL 09/09/2016 Unkn own [facility] 12166 HDL CHOLESTEROL 33 mg/dL 09/09/2016 U nknown [facility] 99080 Chol/HDL Ratio 7.61 ratio 09/09/2016 U nknown [facility] 33167 NON-HDL Chol 218 mg/dL 09/09/2016 Unkn own [facility] 50827 LDL Cholesterol 187 mg/dL 09/09/2016 U nknown [facility] 51349 HDL TEST 39 MG/DL 09/15/2015 Unknown [facility] 71362 TRIG 106 MG/DL 09/15/2015 Unknown [facility] 65360 TEST LDL 152 MG/DL 09/15/2015 Unknown [facility] 39434 CHOL 212 MG/DL 09/15/2015 Unknown [facility] 86580 RCHOL/HDL 5.44 RATIO 09/15/2015 Unknow n [facility] 40683 NON-HDL CH 173 MG/DL 09/15/2015 Unknow n GFR CALC 5139471 GFR AA >60 ML/MIN 09/15/2015 Unknown GFR CALC 6430723 GFR NON-AA >60 ML/MIN 09/15/2015 Unknown COMPREHENSIVE METABOLIC 18721 AST 18 U/L 2015 Unknown COMPREHENSIVE METABOLIC 01410 ALT 28 IU/L 2015 Unknown COMPREHENSIVE METABOLIC 12261 BUN 14 MG/DL 2015 Unknown COMPREHENSIVE METABOLIC 30639 ALBUMIN 4.2 GM/DL 2015 Unknown COMPREHENSIVE METABOLIC 29238 CHLORIDE 101 MMOL/L 09/15 Unknown COMPREHENSIVE METABOLIC 27609 BILI TOT 0.6 MG/DL 2015 Unknown COMPREHENSIVE METABOLIC 60700 ALK PHOS 48 U/L 2015 Unknown COMPREHENSIVE METABOLIC 40769 SODIUM 135 MMOL/L 09/15 Unknown COMPREHENSIVE METABOLIC 78722 CREATININE 0.91 MG/DL 08/31 Unknown COMPREHENSIVE METABOLIC 37325 CALCIUM 9.2 MG/DL 2015 Unknown COMPREHENSIVE METABOLIC 68325 POTASSIUM 4.6 MMOL/L 09/15 Unknown COMPREHENSIVE METABOLIC 95457 PROT TOT 6.6 GM/DL 2015 Unknown COMPREHENSIVE METABOLIC 51034 Glucose 97 MG/DL 2015 Unknown COMPREHENSIVE METABOLIC 42678 BICARB 27 MMOL/L 2015 Unknown COMPREHENSIVE METABOLIC 40525 ANION GAP 7 MEQ/L 2015 Unknown [facility] 91828 HDL TEST 35 MG/DL 04/14/2015 Unknown [facility] 81732 TRIG 135 MG/DL 04/14/2015 Unknown [facility] 02399 TEST LDL 153 MG/DL 04/14/2015 Unknown [facility] 98386 CHOL 215 MG/DL 04/14/2015 Unknown [facility] 18487 RCHOL/HDL 6.14 RATIO 04/14/2015 Unknow n [facility] 70494 NON-HDL CH 180 MG/DL 04/14/2015 Unknow n GFR CALC 8249910 GFR AA >60 ML/MIN 04/14/2015 Unknown GFR CALC 4681079 GFR NON-AA >60 ML/MIN 04/14/2015 Unknown COMPREHENSIVE METABOLIC 93878 AST 23 U/L 2014 Unknown COMPREHENSIVE METABOLIC 99917 ALT 27 IU/L 2014 Unknown COMPREHENSIVE METABOLIC 86479 BUN 15 MG/DL 2014 Unknown COMPREHENSIVE METABOLIC 18922 ALBUMIN 4.2 GM/DL 2014 Unknown COMPREHENSIVE METABOLIC 16209 CHLORIDE 103 MMOL/L 04/14 Unknown COMPREHENSIVE METABOLIC 99441 BILI TOT 0.8 MG/DL 2014 Unknown COMPREHENSIVE METABOLIC 35505 ALK PHOS 50 U/L 2014 Unknown COMPREHENSIVE METABOLIC 57902 SODIUM 134 MMOL/L 04/14 Unknown COMPREHENSIVE METABOLIC 36125 CREATININE 0.93 MG/DL 03/31 Unknown COMPREHENSIVE METABOLIC 19340 CALCIUM 9.4 MG/DL 2014 Unknown COMPREHENSIVE METABOLIC 49911 POTASSIUM 4.4 MMOL/L 04/14 Unknown COMPREHENSIVE METABOLIC 85756 PROT TOT 6.8 GM/DL 2014 Unknown COMPREHENSIVE METABOLIC 49714 Glucose 101 MG/DL 2014 Unknown COMPREHENSIVE METABOLIC 69866 BICARB 25 MMOL/L 2014 Unknown COMPREHENSIVE METABOLIC 52739 ANION GAP 6 MEQ/L 2014 Unknown PSA EQUIMOLAR TROY 77666 PSA EQ 1.04 NG/ML 5 Unknown GFR CALC 7966715 GFR AA >60 ML/MIN 11/10/2014 Unknown GFR CALC 4952662 GFR NON-AA >60 ML/MIN 11/10/2014 Unknown [facility] 46422 HDL TEST 31 MG/DL 11/10/2014 Unknown [facility] 93362 TRIG 133 MG/DL 11/10/2014 Unknown [facility] 12665 TEST LDL 74 MG/DL 11/10/2014 Unknown [facility] 68536 CHOL 132 MG/DL 11/10/2014 Unknown [facility] 06285 RCHOL/HDL 4.26 RATIO 11/10/2014 Unknow n [facility] 74366 NON-HDL CH 101 MG/DL 11/10/2014 Unknow n COMPLETE BLOOD COUNT 8185693 WBC 10.2 10e9/L 015 Unknown COMPLETE BLOOD COUNT 4308305 RBC 5.01 10e12/L 2014 Unknown COMPLETE BLOOD COUNT 3550806 HGB 16.1 g/dL 5 Unknown COMPLETE BLOOD COUNT 9621125 HCT DET 48.1 % 5 Unknown COMPLETE BLOOD COUNT 2048240 MCV 96.0 fL 5 Unknown COMPLETE BLOOD COUNT 2618037 MCH 32.1 pg 5 Unknown COMPLETE BLOOD COUNT 3386924 MCHC 33.5 g/dL 5 Unknown COMPLETE BLOOD COUNT 8918222 PLT 248 10e9/L 11/11/19 15 Unknown COMPLETE BLOOD COUNT 2379457 MPV 11.4 fL 5 Unknown COMPLETE BLOOD COUNT 0758812 GIUSEPPE % 51.2 % 5 Unknown COMPLETE BLOOD COUNT 5977267 LY % 37.4 % 5 Unknown COMPLETE BLOOD COUNT 6847876 MON % 9.2 % 5 Unknown COMPLETE BLOOD COUNT 1035374 EOS % 2.0 % 5 Unknown COMPLETE BLOOD COUNT 4456392 BASO % 0.2 % 5 Unknown COMPLETE BLOOD COUNT 8038004 RDW 14.0 % 5 Unknown COMPLETE BLOOD COUNT 3600745 ABS GIUSEPPE 5.22 10e9/L 015 Unknown COMPLETE BLOOD COUNT 4519288 ABS LYMPH 3.81 10e9/L 015 Unknown COMPLETE BLOOD COUNT 4058042 ABS MONO 0.94 10e9/L 015 Unknown COMPLETE BLOOD COUNT 1361403 ABS EOS 0.20 10e9/L 015 Unknown COMPLETE BLOOD COUNT 2527927 ABS BASO 0.02 10e9/L 015 Unknown COMPLETE BLOOD COUNT 4805250 RDW-SD 47.8 fL 5 Unknown FREE T4 76488 FREE T4 0.92 NG/DL 11/10/2014 Unknown COMPREHENSIVE METABOLIC 97155 AST 18 U/L 2014 Unknown COMPREHENSIVE METABOLIC 26946 ALT 25 IU/L 2014 Unknown COMPREHENSIVE METABOLIC 66088 BUN 16 MG/DL 2014 Unknown COMPREHENSIVE METABOLIC 93308 ALBUMIN 4.5 GM/DL 2014 Unknown COMPREHENSIVE METABOLIC 33639 CHLORIDE 103 MMOL/L 11/10 Unknown COMPREHENSIVE METABOLIC 71985 BILI TOT 0.4 MG/DL 2014 Unknown COMPREHENSIVE METABOLIC 78109 ALK PHOS 53 U/L 2014 Unknown COMPREHENSIVE METABOLIC 84642 SODIUM 135 MMOL/L 11/10 Unknown COMPREHENSIVE METABOLIC 96468 CREATININE 0.97 MG/DL 10/29 Unknown COMPREHENSIVE METABOLIC 67271 CALCIUM 9.4 MG/DL 2014 Unknown COMPREHENSIVE METABOLIC 83134 POTASSIUM 4.4 MMOL/L 11/10 Unknown COMPREHENSIVE METABOLIC 05194 PROT TOT 6.9 GM/DL 2014 Unknown COMPREHENSIVE METABOLIC 83807 Glucose 91 MG/DL 2014 Unknown COMPREHENSIVE METABOLIC 97746 BICARB 26 MMOL/L 2014 Unknown COMPREHENSIVE METABOLIC 82011 ANION GAP 6 MEQ/L 2014 Unknown THYROID STIMULATING HORMONE 28045 TSH 3.791 uIU/ML 11/10/2014 Unknown [facility] 92437 HDL TEST 35 MG/DL 04/29/2014 Unknown [facility] 45725 TRIG 123 MG/DL 04/29/2014 Unknown [facility] 45266 TEST LDL 117 MG/DL 04/29/2014 Unknown [facility] 57142 CHOL 177 MG/DL 04/29/2014 Unknown [facility] 11072 RCHOL/HDL 5.06 RATIO 04/29/2014 Unknow n [facility] 99018 NON-HDL CH 142 MG/DL 04/29/2014 Unknow n COMPREHENSIVE METABOLIC 58643 AST 18 U/L 2013 Unknown COMPREHENSIVE METABOLIC 86010 ALT 29 IU/L 2013 Unknown COMPREHENSIVE METABOLIC 13835 BUN 19 MG/DL 2013 Unknown COMPREHENSIVE METABOLIC 40118 ALBUMIN 4.0 GM/DL 2013 Unknown COMPREHENSIVE METABOLIC 44404 CHLORIDE 106 MMOL/L 04/29 Unknown COMPREHENSIVE METABOLIC 16547 BILI TOT 0.4 MG/DL 2013 Unknown COMPREHENSIVE METABOLIC 38319 ALK PHOS 51 U/L 2013 Unknown COMPREHENSIVE METABOLIC 60379 SODIUM 138 MMOL/L 04/29 Unknown COMPREHENSIVE METABOLIC 69803 CREATININE 0.87 MG/DL 04/02 Unknown COMPREHENSIVE METABOLIC 53440 CALCIUM 9.4 MG/DL 2013 Unknown COMPREHENSIVE METABOLIC 42035 POTASSIUM 4.5 MMOL/L 04/29 Unknown COMPREHENSIVE METABOLIC 05691 PROT TOT 6.8 GM/DL 2013 Unknown COMPREHENSIVE METABOLIC 90699 Glucose 106 MG/DL 2013 Unknown COMPREHENSIVE METABOLIC 73890 BICARB 24 MMOL/L 2013 Unknown COMPREHENSIVE METABOLIC 51208 ANION GAP 8 MEQ/L 2013 Unknown GFR CALC 8862395 GFR AA >60 ML/MIN 04/29/2014 Unknown GFR CALC 3002783 GFR NON-AA >60 ML/MIN 04/29/2014 Unknown [facility] 99071 HDL TEST 30 MG/DL 12/18/2013 Unknown [facility] 15944 TRIG 128 MG/DL 12/18/2013 Unknown [facility] 82640 TEST LDL 166 MG/DL 12/18/2013 Unknown [facility] 67071 CHOL 222 MG/DL 12/18/2013 Unknown [facility] 08881 RCHOL/HDL 7.40 RATIO 12/18/2013 Unknow n GFR CALC 0255662 GFR AA >60 ML/MIN 12/18/2013 Unknown GFR CALC 8625528 GFR NON-AA >60 ML/MIN 12/18/2013 Unknown FREE T4 37747 FREE T4 1.07 NG/DL 12/18/2013 Unknown COMPLETE BLOOD COUNT 8013141 WBC 7.2 10e9/L 12/19/19 14 Unknown COMPLETE BLOOD COUNT 3663133 RBC 4.89 10e12/L 2013 Unknown COMPLETE BLOOD COUNT 6309844 HGB 15.5 g/dL 4 Unknown COMPLETE BLOOD COUNT 5323022 HCT DET 46.6 % 4 Unknown COMPLETE BLOOD COUNT 1899431 MCV 95.3 fL 4 Unknown COMPLETE BLOOD COUNT 5988701 MCH 31.7 pg 4 Unknown COMPLETE BLOOD COUNT 2296086 MCHC 33.3 g/dL 4 Unknown COMPLETE BLOOD COUNT 2436447 PLT 246 10e9/L 12/19/19 14 Unknown COMPLETE BLOOD COUNT 9384738 MPV 11.4 fL 4 Unknown COMPLETE BLOOD COUNT 6197682 GIUSEPPE % 48.6 % 4 Unknown COMPLETE BLOOD COUNT 0273185 LY % 37.4 % 4 Unknown COMPLETE BLOOD COUNT 8892586 MON % 10.5 % 4 Unknown COMPLETE BLOOD COUNT 2109948 EOS % 3.2 % 4 Unknown COMPLETE BLOOD COUNT 1900454 BASO % 0.3 % 4 Unknown COMPLETE BLOOD COUNT 4418484 RDW 13.6 % 4 Unknown COMPLETE BLOOD COUNT 9612247 ABS GIUSEPPE 3.50 10e9/L 014 Unknown COMPLETE BLOOD COUNT 5759254 ABS LYMPH 2.69 10e9/L 014 Unknown COMPLETE BLOOD COUNT 5793382 ABS MONO 0.76 10e9/L 014 Unknown COMPLETE BLOOD COUNT 8497606 ABS EOS 0.23 10e9/L 014 Unknown COMPLETE BLOOD COUNT 8646272 ABS BASO 0.02 10e9/L 014 Unknown COMPLETE BLOOD COUNT 1254438 RDW-SD 46.2 fL 4 Unknown COMPREHENSIVE METABOLIC 86529 AST 38 U/L 2013 Unknown COMPREHENSIVE METABOLIC 11268 ALT 33 IU/L 2013 Unknown COMPREHENSIVE METABOLIC 36885 BUN 15 MG/DL 2013 Unknown COMPREHENSIVE METABOLIC 81549 ALBUMIN 4.2 GM/DL 2013 Unknown COMPREHENSIVE METABOLIC 69792 CHLORIDE 103 MMOL/L 12/18 Unknown COMPREHENSIVE METABOLIC 49643 BILI TOT 0.6 MG/DL 2013 Unknown COMPREHENSIVE METABOLIC 72939 ALK PHOS 45 U/L 2013 Unknown COMPREHENSIVE METABOLIC 50940 SODIUM 136 MMOL/L 12/18 Unknown COMPREHENSIVE METABOLIC 39747 CREATININE 0.97 MG/DL 11/29 Unknown COMPREHENSIVE METABOLIC 55225 CALCIUM 9.2 MG/DL 2013 Unknown COMPREHENSIVE METABOLIC 64632 POTASSIUM 4.2 MMOL/L 12/18 Unknown COMPREHENSIVE METABOLIC 59350 PROT TOT 7.0 GM/DL 2013 Unknown COMPREHENSIVE METABOLIC 19423 Glucose 120 MG/DL 2013 Unknown COMPREHENSIVE METABOLIC 46967 BICARB 24 MMOL/L 2013 Unknown COMPREHENSIVE METABOLIC 37439 ANION GAP 9 MEQ/L 2013 Unknown THYROID STIMULATING HORMONE 97215 TSH 1.305 uIU/ML 12/18/2013 Unknown PSA EQUIMOLAR TROY 14615 PSA EQ 1.71 NG/ML 4 Unknown [facility] 13728 HDL TEST 29 MG/DL 07/17/2012 Unknown [facility] 43525 TRIG 155 MG/DL 07/17/2012 Unknown [facility] 20665 TEST LDL 105 MG/DL 07/17/2012 Unknown [facility] 94379 CHOL 165 MG/DL 07/17/2012 Unknown [facility] 11482 RCHOL/HDL 5.69 RATIO 07/17/2012 Unknow n GFR CALC 5608376 GFR AA >60 ML/MIN 07/17/2012 Unknown GFR CALC 8139860 GFR NON-AA >60 ML/MIN 07/17/2012 Unknown COMPREHENSIVE METABOLIC 95679 AST 19 U/L 2011 Unknown COMPREHENSIVE METABOLIC 67244 ALT 25 IU/L 2011 Unknown COMPREHENSIVE METABOLIC 54375 BUN 14 MG/DL 2011 Unknown COMPREHENSIVE METABOLIC 02879 ALBUMIN 4.4 GM/DL 2011 Unknown COMPREHENSIVE METABOLIC 18806 CHLORIDE 103 MMOL/L 07/17 Unknown COMPREHENSIVE METABOLIC 66587 BILI TOT 0.6 MG/DL 2011 Unknown COMPREHENSIVE METABOLIC 12892 ALK PHOS 53 U/L 2011 Unknown COMPREHENSIVE METABOLIC 60417 SODIUM 136 MMOL/L 07/17 Unknown COMPREHENSIVE METABOLIC 21525 CREATININE 0.97 MG/DL 06/30 Unknown COMPREHENSIVE METABOLIC 30959 CALCIUM 9.4 MG/DL 2011 Unknown COMPREHENSIVE METABOLIC 80278 POTASSIUM 4.3 MMOL/L 07/17 Unknown COMPREHENSIVE METABOLIC 95920 PROT TOT 6.9 GM/DL 2011 Unknown COMPREHENSIVE METABOLIC 15723 Glucose 102 MG/DL 2011 Unknown COMPREHENSIVE METABOLIC 07641 BICARB 27 MMOL/L 2011 Unknown COMPREHENSIVE METABOLIC 74290 ANION GAP 6 MEQ/L 2011 Unknown ERYTHROCYTE SEDIMENTATION RATE 75494 ESR 14 MM/HR 03/20/2012 Unknown [facility] 03436 HDL TEST 31 MG/DL 03/20/2012 Unknown [facility] 99129 TRIG 210 MG/DL 03/20/2012 Unknown [facility] 58120 TEST LDL 164 MG/DL 03/20/2012 Unknown [facility] 89066 CHOL 237 MG/DL 03/20/2012 Unknown [facility] 30521 RCHOL/HDL 7.65 RATIO 03/20/2012 Unknow n GFR CALC 9633644 GFR AA >60 ML/MIN 03/20/2012 Unknown GFR CALC 7384853 GFR NON-AA >60 ML/MIN 03/20/2012 Unknown C-REACTIVE PROTEIN (CRP) QUANT 19728 CRP 0.9 MG/DL 03/20/2012 Unknown COMPLETE BLOOD COUNT 45688 WBC 9.7 10e9/L 03/20/20 12 Unknown COMPLETE BLOOD COUNT 11138 RBC 5.14 10e12/L 2011 Unknown COMPLETE BLOOD COUNT 07724 HGB 15.5 g/dL 2 Unknown COMPLETE BLOOD COUNT 28792 HCT DET 46.9 % 2 Unknown COMPLETE BLOOD COUNT 49562 MCV 91.2 fL 2 Unknown COMPLETE BLOOD COUNT 71842 MCH 30.2 pg 2 Unknown COMPLETE BLOOD COUNT 31027 MCHC 33.0 g/dL 2 Unknown COMPLETE BLOOD COUNT 61659 PLT 280 10e9/L 03/20/20 12 Unknown COMPLETE BLOOD COUNT 33793 MPV 10.6 fL 2 Unknown COMPLETE BLOOD COUNT 01236 GIUSEPPE % 61.5 % 2 Unknown COMPLETE BLOOD COUNT 15256 LY % 26.5 % 2 Unknown COMPLETE BLOOD COUNT 79023 MON % 8.8 % 2 Unknown COMPLETE BLOOD COUNT 84572 EOS % 3.0 % 2 Unknown COMPLETE BLOOD COUNT 08513 BASO % 0.2 % 2 Unknown COMPLETE BLOOD COUNT 44041 RDW 15.3 % 2 Unknown COMPLETE BLOOD COUNT 99096 ABS GIUSEPPE 5.97 10e9/L 012 Unknown COMPLETE BLOOD COUNT 21752 ABS LYMPH 2.57 10e9/L 012 Unknown COMPLETE BLOOD COUNT 89428 ABS MONO 0.85 10e9/L 012 Unknown COMPLETE BLOOD COUNT 82755 ABS EOS 0.29 10e9/L 012 Unknown COMPLETE BLOOD COUNT 58391 ABS BASO 0.02 10e9/L 012 Unknown COMPLETE BLOOD COUNT 92566 RDW-SD 50.3 fL 2 Unknown COMPREHENSIVE METABOLIC 38013 AST 16 U/L 2011 Unknown COMPREHENSIVE METABOLIC 17435 ALT 21 IU/L 2011 Unknown COMPREHENSIVE METABOLIC 30067 BUN 15 MG/DL 2011 Unknown COMPREHENSIVE METABOLIC 78035 ALBUMIN 4.3 GM/DL 2011 Unknown COMPREHENSIVE METABOLIC 74564 CHLORIDE 102 MMOL/L 03/20 Unknown COMPREHENSIVE METABOLIC 47164 BILI TOT 0.5 MG/DL 2011 Unknown COMPREHENSIVE METABOLIC 19385 ALK PHOS 60 U/L 2011 Unknown COMPREHENSIVE METABOLIC 34556 SODIUM 135 MMOL/L 03/20 Unknown COMPREHENSIVE METABOLIC 69675 CREATININE 0.94 MG/DL 03/01 Unknown COMPREHENSIVE METABOLIC 26383 CALCIUM 9.0 MG/DL 2011 Unknown COMPREHENSIVE METABOLIC 12344 POTASSIUM 4.4 MMOL/L 03/20 Unknown COMPREHENSIVE METABOLIC 43259 PROT TOT 6.7 GM/DL 2011 Unknown COMPREHENSIVE METABOLIC 42257 Glucose 96 MG/DL 2011 Unknown COMPREHENSIVE METABOLIC 00585 BICARB 25 MMOL/L 2011 Unknown COMPREHENSIVE METABOLIC 69981 ANION GAP 8 MEQ/L 2011 [place] [address] PRO TIME 21.6 SEC 03/20/[place] [address] INR MCMC 1.8 03/20/2012 Unknow n Procedures Procedure Codes Date ROUTINE VENIPUNCTURE CPT-4: 33963 06/19/2018 ASSAY OF FREE THYROXINE CPT-4: 52383 06/19/2018 ASSAY THYROID STIM HORMONE CPT-4: 11013 06/19/2018 COMPREHEN METABOLIC PANEL CPT-4: 55514 06/19/2018 COMPLETE CBC W/AUTO DIFF WBC CPT-4: 33950 06/19/2018 LIPID PANEL CPT-4: 26520 06/19/2018 ASSAY OF PSA TOTAL CPT-4: 51447 06/19/2018 VITAMIN D TOTAL (25 HYDROXY) CPT-4: 21701 06/19/2018 VITAMIN B-12 CPT-4: 29847 06/19/2018 DEXAMETHASONE SODIUM PHOS CPT-4: J1100 08/31/2017 TRIAMCINOLONE ACET INJ NOS CPT-4: J3301 08/31/2017 DRAIN/INJECT JOINT/BURSA CPT-4: 53466 08/31/2017 ROUTINE VENIPUNCTURE CPT-4: 57168 08/01/2017 COMPREHEN METABOLIC PANEL CPT-4: 24628 08/01/2017 LIPID PANEL CPT-4: 65503 08/01/2017 DRAIN/INJECT JOINT/BURSA CPT-4: 15662 09/12/2016 TRIAMCINOLONE ACET INJ NOS CPT-4: J3301 09/12/2016 DEXAMETHASONE SODIUM PHOS CPT-4: J1100 09/12/2016 ROUTINE VENIPUNCTURE CPT-4: 35647 09/09/2016 ASSAY OF FREE THYROXINE CPT-4: 59040 09/09/2016 ASSAY THYROID STIM HORMONE CPT-4: 31758 09/09/2016 COMPREHEN METABOLIC PANEL CPT-4: 21502 09/09/2016 COMPLETE CBC W/AUTO DIFF WBC CPT-4: 39716 09/09/2016 LIPID PANEL CPT-4: 49707 09/09/2016 SPECIAL REPORTS OR FORMS CPT-4: 12268 08/05/2016 ROUTINE VENIPUNCTURE CPT-4: 57153 09/15/2015 COMPREHEN METABOLIC PANEL CPT-4: 00414 09/15/2015 LIPID PANEL CPT-4: 02881 09/15/2015 PRESCRIP TRANSMIT VIA ERX SY CPT-4: G8553 08/31/2015 ROUTINE VENIPUNCTURE CPT-4: 04892 04/14/2015 COMPREHEN METABOLIC PANEL CPT-4: 59761 04/14/2015 LIPID PANEL CPT-4: 90837 04/14/2015 ROUTINE VENIPUNCTURE CPT-4: 75544 11/10/2014 ASSAY OF FREE THYROXINE CPT-4: 17417 11/10/2014 ASSAY THYROID STIM HORMONE CPT-4: 51010 11/10/2014 COMPREHEN METABOLIC PANEL CPT-4: 25797 11/10/2014 COMPLETE CBC W/AUTO DIFF WBC CPT-4: 38059 11/10/2014 LIPID PANEL CPT-4: 30036 11/10/2014 ASSAY OF PSA TOTAL CPT-4: 73328 11/10/2014 ROUTINE VENIPUNCTURE CPT-4: 19257 04/29/2014 COMPREHEN METABOLIC PANEL CPT-4: 30577 04/29/2014 LIPID PANEL CPT-4: 69902 04/29/2014 ROUTINE VENIPUNCTURE CPT-4: 93111 12/18/2013 ASSAY OF FREE THYROXINE CPT-4: 38751 12/18/2013 ASSAY THYROID STIM HORMONE CPT-4: 16760 12/18/2013 COMPREHEN METABOLIC PANEL CPT-4: 86721 12/18/2013 COMPLETE CBC W/AUTO DIFF WBC CPT-4: 38021 12/18/2013 LIPID PANEL CPT-4: 54714 12/18/2013 ASSAY OF PSA TOTAL CPT-4: 22731 12/18/2013 ROUTINE VENIPUNCTURE CPT-4: 75724 07/17/2012 COMPREHEN METABOLIC PANEL CPT-4: 91792 07/17/2012 LIPID PANEL CPT-4: 79775 07/17/2012 ROUTINE VENIPUNCTURE CPT-4: 46079 03/20/2012 COMPLETE CBC W/AUTO DIFF WBC CPT-4: 64787 03/20/2012 RBC SED RATE AUTOMATED CPT-4: 26803 03/20/2012 C-REACTIVE PROTEIN CPT-4: 20856 03/20/2012 COMPREHEN METABOLIC PANEL CPT-4: 33620 03/20/2012 LIPID PANEL CPT-4: 27698 03/20/2012 PROTHROMBIN TIME CPT-4: 72799 03/20/2012 Vital Signs Date Vital 01/08/2020 Blood Pressure 1: 132/84 Code: 8480-6 BMI: 32.1 Code: 51452-4 Heart Rate 1: 56 bpm Height: 6'2" Respiratory Rate: 20 bpm SpO2: 94% Tempera ture: 36.6 (C) / 97.8 (F) Weight: 250 lbs 10/07/2019 Blood Pressure 1: 142/83 Code: 8480-6 BMI: 31.3 Code: 02306-8 Heart Rate 1: 80 bpm Height: 6'2" Respiratory Rate: 17 bpm SpO2: 99% Tempera ture: 36.7 (C) / 98.1 (F) Weight: 244 lbs 07/01/2019 Blood Pressure 1: 114/80 Code: 8480-6 BMI: 30.4 Code: 52250-8 Heart Rate 1: 72 bpm Height: 6'2" [...] 1: 126/82 Code: 8480-6 BMI: 31.2 Code: 50384-2 Heart Rate 1: 84 bpm Height: 6'2" Respiratory Rate: 20 bpm SpO2: 94% Tempera ture: 37.0 (C) / 98.6 (F) Weight: 243 lbs 03/02/2018 Blood Pressure 1: 122/80 Code: 8480-6 BMI: 30.8 Code: 24568-0 Heart Rate 1: 74 bpm Height: 6'2" Respiratory Rate: 20 bpm SpO2: 95% Tempera ture: 37.1 (C) / 98.8 (F) Weight: 240 lbs 08/31/2017 Blood Pressure 1: 136/90 Code: 8480-6 Heart Rate 1: 76 bpm Respiratory Rate: 20 bpm Temperature: 36.7 (C) / 98.0 (F) Weight: 247 lbs 07/18/2017 Blood Pressure 1: 126/78 Code: 8480-6 BMI: 31.3 Code: 36449-1 Heart Rate 1: 72 bpm Height: 6'2" Respiratory Rate: 20 bpm SpO2: 94% Tempera ture: 37.0 (C) / 98.6 (F) Weight: 244 lbs 04/24/2017 Blood Pressure 1: 152/92 Code: 8480-6 BMI: 31.1 Code: 72476-3 Heart Rate 1: 74 bpm Height: 6'2" Respiratory Rate: 18 bpm SpO2: 98% Tempera ture: 35.9 (C) / 96.6 (F) Weight: 242 lbs 01/04/2017 Blood Pressure 1: 122/70 Code: 8480-6 BMI: 30.4 Code: 55963-8 Heart Rate 1: 88 bpm Height: 6'2" Respiratory Rate: 20 bpm SpO2: 96% Tempera ture: 36.6 (C) / 97.8 (F) Weight: 237 lbs 09/12/2016 Blood Pressure 1: 136/78 Code: 8480-6 Heart Rate 1: 82 bpm Respiratory Rate: 22 bpm SpO2: 94% Temperature: 36.4 (C) / 97.6 (F) We ight: 234 lbs 09/07/2016 Blood Pressure 1: 122/70 Code: 8480-6 BMI: 30.0 Code: 05717-1 Heart Rate 1: 88 bpm Height: 6'2" Respiratory Rate: 20 bpm SpO2: 94% Tempera ture: 36.6 (C) / 97.9 (F) Weight: 234 lbs 08/31/2015 Blood Pressure 1: 142/94 Code: 8480-6 BMI: 28.9 Code: 22286-1 Heart Rate 1: 92 bpm Height: 6'2" Respiratory Rate: 20 bpm Temperature: 36 .9 (C) / 98.5 (F) Weight: 225 lbs 04/14/2015 Blood Pressure 1: 126/80 Code: 8480-6 BMI: 28.0 Code: 14613-7 Heart Rate 1: 76 bpm Height: 6'2" Respiratory Rate: 20 bpm Temperature: 36 .6 (C) / 97.8 (F) Weight: 218 lbs 10/07/2014 Blood Pressure 1: 128/76 Code: 8480-6 BMI: 28.6 Code: 01955-3 Heart Rate 1: 84 bpm Height: 6'2" Respiratory Rate: 22 bpm Temperature: 36 .6 (C) / 97.9 (F) Weight: 223 lbs 05/01/2014 Blood Pressure 1: 126/68 Code: 8480-6 BMI: 28.2 Code: 74031-2 Heart Rate 1: 84 bpm Height: 6'2" Respiratory Rate: 20 bpm Temperature: 36 .8 (C) / 98.3 (F) Weight: 220 lbs 12/17/2013 Blood Pressure 1: 136/82 Code: 8480-6 BMI: 29.6 Code: 27979-4 Heart Rate 1: 76 bpm Height: 6'1" Respiratory Rate: 20 bpm Temperature: 36 .8 (C) / 98.2 (F) Weight: 224 lbs 12/11/2012 Blood Pressure 1: 122/86 Code: 8480-6 BMI: 30.5 Code: 45146-8 Heart Rate 1: 76 bpm Height: 6'1" Respiratory Rate: 20 bpm SpO2: 93% Tempera ture: 36.8 (C) / 98.2 (F) Weight: 231 lbs 12/04/2012 Blood Pressure 1: 124/86 Code: 8480-6 BMI: 30.5 Code: 29613-6 Heart Rate 1: 68 bpm Height: 6'1" Respiratory Rate: 20 bpm SpO2: 95% Tempera ture: 36.6 (C) / 97.8 (F) Weight: 231 lbs 08/14/2012 Blood Pressure 1: 126/70 Code: 8480-6 BMI: 29.4 Code: 55575-8 Heart Rate 1: 80 bpm Height: 6'1" Respiratory Rate: 20 bpm Temperature: 36 .8 (C) / 98.3 (F) Weight: 223 lbs 07/17/2012 Blood Pressure 1: 124/82 Code: 8480-6 BMI: 29.7 Code: 25546-3 Heart Rate 1: 80 bpm Height: 6'1" Respiratory Rate: 20 bpm Temperature: 36 .8 (C) / 98.2 (F) Weight: 225 lbs 03/20/2012 Blood Pressure 1: 124/78 Code: 8480-6 BMI: 29.3 Code: 99213-3 Heart Rate 1: 72 bpm Height: 6'1" Respiratory Rate: 20 bpm Temperature: 36 .6 (C) / 97.8 (F) Weight: 222 lbs 12/08/2011 Blood Pressure 1: 112/64 Code: 8480-6 BMI: 28.2 Code: 24462-0 Heart Rate 1: 78 bpm Height: 6'1" Temperature: 36.3 (C) / 97.4 (F) Weight: 214 lbs 08/11/2011 Blood Pressure 1: 128/70 Code: 8480-6 BMI: 27.6 Code: 82868-5 Heart Rate 1: 76 bpm Height: 6'1" [...] it Encounters Encounter Performer Location Codes Date ([id number]) OFFICE/OUTPATIENT VISIT EST Diagnosis: Other intervertebral disc degeneration, 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] Diagnosis: Lipoma[ICD10: D17.9] Martita Black [employer] CPT-4: 90807 01/08/2020 ([id number]) OFFICE/OUTPATIENT VISIT EST Diagnosis: COPD (chronic obstructive pulmonary disease)[ICD10: J44.9] Diagnosis: Mixed hyperlipidemia[ICD10: E78.2] Diagnosis: Coronary artery disease[ICD10: I25.10] Diagnosis: 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: G57.92] Martita GARCIA [employer] CPT-4: 42923 10/07/2019 ([id number]) OFFICE/OUTPATIENT VISIT EST Diagnosis: Cephalgia[ICD10: R51] Diagnosis: Family history of brain aneurysm[ICD10: Z82.49] Diagnosis: Other intervertebral disc degeneration, 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] Martita José [employer] M[employer] Sofia SIMONS [employer] CPT-4: 88047 07/01/2019 ([id number]) OFFICE/OUTPATIENT VISIT EST Diagnosis: Atherosclerotic heart disease of samish coronary artery without angina pectoris[ICD10: I25.10] Diagnosis: Bilateral primary osteoarthritis of knee[ICD10: M17.0] Diagnosis: Nicotine dependence, unspecified, uncomplicated[ICD10: F17.200] Diagnosis: Mixed hyperlipidemia[ICD10: E78.2] Martita RENTERIA [employer] CPT-4: 64960 03/27/2019 ([id number]) OFFICE/OUTPATIENT VISIT EST Diagnosis: Mixed hyperlipidemia[ICD10: E78.2] Diagnosis: Atherosclerotic heart disease of samish coronary artery without angina pectoris[ICD10: I25.10] Diagnosis: Other intervertebral disc degeneration, 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] Martita MCGOVERN [employer] CPT-4: 18092 12/25/2018 ([id number]) OFFICE/OUTPATIENT VISIT EST Diagnosis: Mixed hyperlipidemia[ICD10: E78.2] Diagnosis: Other fatigue[ICD10: R53.83] Diagnosis: Encounter for screening for malignant neoplasm of prostate[ICD10: Z12.5] Diagnosis: Primary osteoarthritis, 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 [employer] CPT-4: 69751 03/02/2018 ([id number]) OFFICE/OUTPATIENT VISIT EST Diagnosis: Mixed hyperlipidemia[ICD10: E78.2] Martita RENTERIA [employer] CPT-4: 76725 08/01/2017 ([id number]) OFFICE/OUTPATIENT VISIT EST Diagnosis: Other spondylosis with radiculopathy, cervical region[ICD10: M47.22] Diagnosis: Pain in 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: M25.531] Diagnosis: Mixed hyperlipidemia[ICD10: E78.2] Diagnosis: 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] Martita SMIONS [employer] [facility] CPT-4: 9921 3 07/18/2017 ([id number]) OFFICE/OUTPATIENT VISIT EST Diagnosis: Other intervertebral disc degeneration, 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] Diagnosis: Cervicalgia[ICD10: M54.2] Martita YOUNG [employer] [facility] CPT-4: 38927 04/24/2017 ([id number]) OFFICE/OUTPATIENT VISIT EST Diagnosis: Cervicalgia[ICD10: M54.2] Diagnosis: Other intervertebral disc degeneration, 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] Diagnosis: Mixed hyperlipidemia[ICD10: E78.2] Martita Kristyn SIMONS [employer] CPT-4: 31461 01/04/2017 ([id number]) OFFICE/OUTPATIENT VISIT EST Diagnosis: Mixed hyperlipidemia[ICD10: E78.2] Diagnosis: Encounter for general adult medical examination with abnormal findings[ICD10: Z00.01] Martita SIMONS [employer] CPT-4: 92554 09/09/2016 ([id number]) PREV VISIT EST AGE 40-64 Diagnosis: Mixed hyperlipidemia[ICD10: E78.2] Diagnosis: Nicotine dependence, unspecified, uncomplicated[ICD10: F17.200] Diagnosis: Chronic obstructive pulmonary disease with acute lower respiratory infection[ICD10: J44.0] Diagnosis: Bilateral primary osteoarthritis of knee[ICD10: M17.0] Diagnosis: Pain in thoracic spine[ICD10: M54.6] Diagnosis: Pain in 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: M25.531] Diagnosis: Encounter for general adult medical examination with abnormal findings[ICD10: Z00.01] Martita José Migueljessiejoellen FERRARAMARTITA Sofia SIMONS [employer] CPT-4: 71769 09/07/2016 ([id number]) OFFICE/OUTPATIENT VISIT EST Diagnosis: Mixed hyperlipidemia[ICD10: E78.2] Martita SIMONS [employer] CPT-4: 71633 09/15/2015 ([id number]) OFFICE/OUTPATIENT VISIT EST Diagnosis: Acute bronchitis, unspecified[ICD10: J20.9] Diagnosis: Chronic obstructive pulmonary disease with acute lower respiratory infection[ICD10: J44.0] Diagnosis: Lumbago with sciatica, right side[ICD10: M54.41] Martita SIMONS DO [employer] CPT-4: 29482 08/31/2015 ([id number]) OFFICE/OUTPATIENT VISIT EST Diagnosis: HYPERLIPIDEMIA NEC/NOS[ICD9: 272.4] Diagnosis: TOBACCO USE DISORDER[ICD9: 305.1] Diagnosis: Osteoarthritis, knee[ICD9: 715.96] Diagnosis: Chronic back pain[ICD9: 724.5] Martita SIMONS DO [employer] CPT-4: 01984 04/14/2015 ([id number]) OFFICE/OUTPATIENT VISIT EST Diagnosis: HYPERLIPIDEMIA NEC/NOS[ICD9: 272.4] Diagnosis: COPD[ICD9: 496] Diagnosis: ROUTINE MEDICAL EXAM[ICD9: V70.0] Martita SIMONS DO [employer] CPT-4: 54872 11/10/2014 ([id number]) OFFICE/OUTPATIENT VISIT EST Diagnosis: Wrist pain[ICD9: 719.43] Diagnosis: Knee osteoarthritis[ICD9: 715.96] Diagnosis: Chronic back pain[ICD9: 724.5] Martita SIMONS DO [employer] CPT-4: 97597 10/07/2014 ([id number]) OFFICE/OUTPATIENT VISIT EST Diagnosis: HYPERLIPIDEMIA NEC/NOS[ICD9: 272.4] Diagnosis: Chronic back pain[ICD9: 724.5] Diagnosis: OSTEOARTH NOS-L/LEG[ICD9: 715.96] Martita ISMONS [employer] CPT-4: 58072 05/01/2014 ([id number]) OFFICE/OUTPATIENT VISIT EST Diagnosis: HYPERLIPIDEMIA NEC/NOS[ICD9: 272.4] Martita SIMONS [employer] [facility] CPT-4: 89391 04/29/2014 ([id number]) OFFICE/OUTPATIENT VISIT EST Diagnosis: ROUTINE MEDICAL EXAM[ICD9: V70.0] Diagnosis: HYPERLIPIDEMIA NEC/NOS[ICD9: 272.4] Martita SIMONS DO [facility] CPT-4: 32522 12/18/2013 OFFICE/OUTPATIENT VISIT EST Diagnosis: HYPERLIPIDEMIA NEC/NOS[ICD9: 272.4] Diagnosis: COPD[ICD9: 496] Diagnosis: Knee pain[ICD9: 719.46] Diagnosis: Wrist pain[ICD9: 719.43] Martita LAMAR [facility] CPT-4: 25627 12/17/2013 OFFICE/OUTPATIENT VISIT EST Diagnosis: COPD W/ ACUTE EXACERB[ICD9: 491.21] Diagnosis: COUGH[ICD9: 786.2] Martita SIMONS [employer] [facility] CPT-4: 11259 12/11/2012 ([id number]) OFFICE/OUTPATIENT VISIT EST Diagnosis: BRONCHITIS, ACUTE[ICD9: 466.0] Diagnosis: COPD exacerbation[ICD9: 491.21] Martita SIMONS DO [facility] CPT-4: 48814 12/04/2012 ([id number]) OFFICE/OUTPATIENT VISIT EST Diagnosis: DERMATITIS NOS[ICD9: 692.9] Diagnosis: TOBACCO USE DISORDER[ICD9: 305.1] Martita FERRARALIN Genaro SIMONS [employer] [facility] CPT-4: 41108 08/14/2012 ([id number]) OFFICE/OUTPATIENT VISIT EST Diagnosis: TOBACCO USE DISORDER[ICD9: 305.1] Diagnosis: PAIN, LOWER BACK[ICD9: 724.2] Diagnosis: PAIN IN THORACIC SPINE[ICD9: 724.1] Diagnosis: DERMATITIS NOS[ICD9: 692.9] Diagnosis: HYPERLIPIDEMIA NEC/NOS[ICD9: 272.4] Martita SIMONS [employer] CPT-4: 78548 07/17/2012 ([id number]) OFFICE/OUTPATIENT VISIT EST Diagnosis: HYPERLIPIDEMIA NEC/NOS[ICD9: 272.4] Diagnosis: OSTEOARTH NOS-L/LEG[ICD9: 715.96] Diagnosis: JOINT PAIN-L/LEG[ICD9: 719.46] Diagnosis: AC EMBL SUPRFCL UP EXT[ICD9: 453.81] Martita FISCHER Sofia AGUIRRENDJOELLEN [employer] CPT-4: 02385 03/20/2012 ([id number]) OFFICE/OUTPATIENT VISIT EST Diagnosis: PAIN, LOWER BACK[ICD9: 724.2] Diagnosis: Superficial venous thrombosis of arm[ICD9: 453.81] Diagnosis: Trigger finger, left[ICD9: 727.03] Martita RENTERIA SSohail AGUIRRENDJOELLEN [employer] CPT-4: 37472 12/08/2011 OFFICE/OUTPATIENT VISIT EST Diagnosis: Knee pain[ICD9: 719.46] Diagnosis: Knee osteoarthritis[ICD9: 715.96] Diagnosis: Thoracic back pain[ICD9: 724.1] Diagnosis: HYPERLIPIDEMIA NEC/NOS[ICD9: 272.4] Martita MOROCHO SSohail AGUIRRENDER [employer] CPT-4: 17959 08/11/2011 ([id number]) OFFICE/OUTPATIENT VISIT, NEW Martita HULL SSohail [employer] CPT-4: 26089 05/26/2010 Plan of Care Planned Activity Notes [...] E78.2 10/07/2019 Appointment: Martita [facility] [phone] [facility] MED[facility] REVIEW 10/07/2019 Visit Diagnosis Plan: Other intervertebral disc degene ration, lumbar region Discussion: Stable on hydrocodone Add Vitamin D3 2000u daily Follow Up: 3 months ICD-9 : 722.52 ICD-10 : M51.36 07/01/2019 Visit Diagnosis Plan: Cephalgia Discussion: Discussed CT angiogram to rule out aneurysm but patient defers due to cost ICD-9 : 784.0 ICD-10 : R51 07/01/2019 Appointment: Martita Simonstel: [address] [place], [place] [phone] MEDICATION REVIEW 07/01/2019 Visit Diagnosis Plan: Atherosclerotic he art disease of samish coronary artery without angina pectoris Discussion: Discussed [...] ICD-10 : E78.2 03/27/2019 Appointment: Martita Simonstel: [address] [place], [place] [phone] MEDICATION REVIEW 03/27/2019 Visit Diagnosis Plan: Other intervertebral disc degene ration, lumbar region Discussion: Stable on hydrocodone UDS done Follow Up: 3 months ICD-9 : 722.52 ICD-10 : M51.36 12/25/2018 Visit Diagnosis Plan: Atherosclerotic he art disease of samish coronary artery without angina pectoris Discussion: Smoking Cessation Continue c urrent meds and fwup with cardiology ICD-9 : 414.00 ICD-10 : I25.10 12/25/2018 Appointment: Martita Simonstel: [address] [place], [place] [phone] MEDICATION REVIEW 12/25/2018 Appointment: Martita Simonstel: [address] [place], [place] [phone] OFFICE SURGERY 08/22/2018 Visit Diagnosis Plan: Pain [...] : M19.031 06/19/2018 Appointment: Martita Simons WPtel: [address] [place] [address] MEDICATION REVIEW 06/19/2018 Appointment: Martita Simons WPtel: [address] [place], [place] [phone] US CANCELED 06/05/2018 Appointment: Martita Simons WPtel: [address] [place] [phone] [place] CANCELED 05/08/2018 Visit Diagnosis Plan: Pain [...] ICD-10 : M25.562 03/02/2018 Appointment: Marian Juares [address] [place] [address] MEDICATION REVIEW 03/02/2018 Patient Education: Patient Medication Summary Completed 03/02/2018 Appointment: Martita Simons WPtel: [address] [place] [address] UA 02/01/2018 Patient Education: Patient Medication Summary Completed 02/01/2018 Visit Diagnosis Plan: Other synovitis and tenosynoviti s, right hand Discussion: Right wrist cleansed with alcohol and betadine and injected laterally with 1cc 1% lidocaine with 20mg kenalog and 2mg dexamethasone, tolerated well with no complications, neosporin and bandage applied ICD-9 : 727.05 ICD-10 : M65.841 08/31/2017 Appointment: Martita Simons WPtel: [address] [place] [address] ACUTE ILLNESS 08/31/2017 Patient Education: Patient Medication Summary Completed 08/31/2017 Appointment: Martita Simons WPtel: [address] [place] [address] LAB 08/01/2017 Patient Education: Patient Medication Summary [...] : E78.2 07/18/2017 Appointment: Martita Simons WPtel: [address] [place], [place] [phone] MEDICATION REVIEW 07/18/2017 Patient Education: Patient Medication Summary Completed 07/18/2017 Visit Diagnosis Plan: Other intervertebral disc degene ration, lumbar region Discussion: Add PT For lumbar spine ICD-9 : 722.52 ICD-10 : M51.36 04/24/2017 Visit Diagnosis Plan: Cervicalgia Discussion: Continue PT then fwup after done with PT ICD-9 : 723.1 ICD-10 : M54.2 04/24/2017 Appointment: Martita Simons WPtel: [address] [place], [place] [phone] [place] MEDICATION REVIEW 04/24/2017 Patient Education: Patient Medication Summary Completed 04/24/2017 Patient Education: Patient Medication Summary Completed 03/22/2017 Care Plan: MRI NECK SPINE W/O DYE LOINC : 39926-5 Pending 03/22/2017 Visit Diagnosis Plan: Mixed hyperlipidemia [...] : M54.2 01/04/2017 Appointment: Martita Simons WPtel: [address] [place], [place] [phone] [place] 01/03 lm`sl 01/03-Confirmed MEDICATION REVIEW 01/04/2017 Patient Education: Patient Medication Summary Completed 01/04/2017 Visit Diagnosis Plan: Other enthesopathies, not elsewh ere classified Discussion: Right wrist injection as above ICD-9 : 727.05 ICD-10 : M77.8 09/12/2016 Visit Diagnosis Plan: Mixed hyperlipidemia Discussion: Lab discussed Restart lipitor/lifestyle change ICD-9 : 272.4 ICD-10 : E78.2 09/12/2016 Appointment: Martita Simons WPtel: [address] [place] [id number] [place] 09/12 confirmed `sl INJECTION 09/12/2016 Patient Education: Patient Medication Summary Completed 09/12/2016 Appointment: Martita Simons WPtel: [address] [place], [place] [phone] [place] LAB 09/09/2016 Patient Education: Patient Medication Summary Completed 09/09/2016 Visit Diagnosis Plan: Pain in right wrist Discussion: Will return for wrist injection ICD-9 : 719.43 ICD-10 : M25.531 09/07/2016 Visit Diagnosis Plan: Chronic obstructiv e pulmonary disease with acute lower respiratory infection Discussion: Smoking Cessation Symbicort Check CXR ICD-9 : 496 ICD-10 : J44.0 09/07/2016 Visit Diagnosis Plan: Encounter for gene [facility] adult medical examination with abnormal findings Discussion: Update fasting lab Follow Up: 4 months ICD-9 : V70.0 ICD-10 : Z00.01 09/07/2016 Visit Diagnosis Plan: Mixed hyperlipidemia Discussion: Check CMP, Lipids ICD-9 : 272.4 ICD-10 : E78.2 09/07/2016 Visit Diagnosis Plan: Nicotine dependence, unspecified , uncomplicated Discussion: Tobacco Abuse ICD-9 : 305.1 ICD-10 : F17.200 09/07/2016 Appointment: Martita Simons WPtel: [address] [place] [address] 09/06 confirmed~sl Annual Well Visit 09/07/2016 Patient Education: Patient Medication Summary Completed 09/07/2016 Care Plan: CHEST X-RAY 2VW FRONTAL&LATL LOINC : 91984-0 Pending 09/07/2016 Visit Plan: [facility] Paperwork 08/05/2016 Patient Education: Patient Medication Summary Completed 08/05/2016 Appointment: Martita Simons WPtel: [address] [place], [place] [phone] [place] UA 04/25/2016 Patient Education: Patient Medication Summary Completed 04/25/2016 Appointment: Martita Simons WPtel: [address] [place] [phone] [place] LAB 09/15/2015 Patient Education: Patient Medication Summary Completed 09/15/2015 Visit Plan: SVN with Albuterol 0.083% Q4 hrs and Q2hrs prn. Supportive care. Rest, Fluids, Tylenol/Motrin prn fever or bodyaches. Notify if worsening symptoms. Daily back stretches, moist heat, Biofreeze prn Flexeril/Prednisone Notify if low back pain persists--will need x-rays Patient seeing Chiropracter [employer] 08/31/2015 Appointment: Martita Simonstel: [address] [place], [place] [phone] 08/28/15 vm cn 08/28/15 appt confirmed cn FOLLOW UP 08/31/2015 Patient Education: Patient Medication Summary Completed 08/31/2015 Appointment: Martita Simons WPtel: [address] [place] [phone] UA 07/29/2015 Visit Plan: CMP, Lipids today Patient st opped chol meds 1week ago Continue hydrocodone 04/14/2015 Appointment: Martita Simons WPtel: [address] [place] [phone] FOLLOW UP 04/14/2015 Patient Education: Patient Medication Summary Completed 04/14/2015 Appointment: Martita Simonstel: [address] [place] [phone] LAB 11/10/2014 Patient Education: Patient Medication Summary Completed 11/10/2014 Visit Plan: Fasting lab at end of September for Lipids/LFTs Continue hydrocodone at current dose Needs to be on low dose asprin 81mg daily With upcoming trip need to stop every 2hours and get out and stretch 10/07/2014 Appointment: Martita Simonstel: [address] [place], [place] [phone] [place] FOLLOW UP 10/07/2014 Patient Education: Patient Medication Summary Completed 10/07/2014 Visit Plan: Lab discussed Will keep meds the same Keep hydrocodone at current dose--discussed schedule change on May 05 05/01/2014 Appointment: Martita Simons WPtel: [address] [place] [phone] 04/29 confirmed when in for labs; asked if he still wanted a reminder call on Monday and he said no he would be here. FOLLOW UP 05/01/2014 Patient Education: Patient Medication Summary Completed 05/01/2014 Appointment: Martita Simons WPtel: [address] [place] [place] [phone] 04/29/2014 Patient Education: Patient Medication Summary Completed 04/29/2014 Appointment: Martita Simons WPtel: [address] [place] [address] LAB 12/18/2013 Patient Education: Patient Medication Summary Completed 12/18/2013 Appointment: Martita Simons WPtel: [address] [place] [address] 12/16 FOLLOW UP 12/17/2013 Patient Education: Patient Medication Summary Completed 12/17/2013 Visit Plan: Check CXR Start SVNs with al buterol 0.083% QID 12/11/2012 Appointment: Martita Simonstel: [address] [place] [address] FOLLOW UP 12/11/2012 Patient Education: Patient Medication Summary Completed 12/11/2012 Visit Plan: Zithromax for 1wk Prednisone for 1wk Symbicort 160/4.5 2p BID 12/04/2012 Appointment: Martita Simons WPtel: [address] [place] [address] ACUTE ILLNESS 12/04/2012 Patient Education: Patient Medication Summary Completed 12/04/2012 Visit Plan: Continue nystatin/TAC cream and add Lamisil for next month No lipitor for next month If rash persists then will need biopsy Trial of chantix--warned of suicidal ideation/depression Call in 1mo on finger lesion and chantix 08/14/2012 Appointment: Martita Simons WPtel: [facility] 08/13 no answer...08/13 pt called back and confirmed OFFICE SURGERY 08/14/2012 Patient Education: Patient Medication Summary Completed 08/14/2012 Appointment: Martita Simons WPtel: [address] [place] [phone] FOLLOW UP 07/17/2012 Patient Education: Patient Medication Summary Completed 07/17/2012 Appointment: Martita Simons WPtel: [address] [place], [place] [phone] [place] Appointment was confirmed by CN on 06/29 07/04 pt called, in family, was in [place] just got yash k 07/03 - [facility] ACUTE ILLNESS 07/02/2012 Visit Plan: Obtain US results of RUE DC coumadin as has been 3mos and start Aspirin 325mg daily Check CMP, Lipids, CBC, ESR, CRP today 03/20/2012 Appointment: Mratita Simons WPtel: [address] [place] [phone] FOLLOW UP 03/20/2012 Patient Education: Patient Medication Summary Completed 03/20/2012 Appointment: Martita Simons WPtel: [address] [place] [phone] Patient called 2 hours past appt. Said saw a specialist today and specialist is not concerned about blod clot so doesnt want to reschedule-CN FOLLOW UP 12/14/2011 Appointment: Martita Simons WPtel: [address] [place] [phone] [place] FOLLOW UP 12/13/2011 Visit Plan: Continue coumadin--IM is fol lowing level--discussed will likely need 6-12wks Observe contusion to right lower back Fwup with ortho as scheduled 12/08/2011 Appointment: Martita Simons WPtel: [address] [place], [place] [phone] ACUTE ILLNESS 12/08/2011 Patient Education: Patient Medication Summary Completed 12/08/2011 Visit Plan: Check fasting lab when goes for pre-op lab including CMP, CBC, Lipids, TSH, Free T4, PSA, uric acid Needs colonoscopy Hydrocodone refilled #80 to [facility] 08/11/2011 Appointment: [facility] [phone] [id number] EST[facility]LISHED PATIENT 08/11/2011 Patient Education: Patient Medication Summary Completed 08/11/2011 Visit Plan: Obtain most recent lab resul ts Cont current meds Explained that cannot refill pain meds without current rx Discussed Synvisc injections and see ortho as oxycontin for knee arthritis is strong pain med 05/26/2010 Appointment: Martita [facility]ons [facility] [phone] [facility] NEW [facility] 05/26/2010 Patient Education: Patient Medication Summary Completed 05/26/2010 Instructions Comment . Filled out [facility] Paperwork . SVN with Albuterol 0.083% Q4hrs [...] acid Needs colonoscopy Hydrocodone refilled #80 to [facility] . Obtain most recent lab results Cont [...]
--- OUTSIDE RECORDS SUMMARY | 2020-01-12 17:37 | XMS REPORT | CCD ---
Author Author Syd Simons D.O. Organization [facility]ITA [facility] Address [address] [place] [address] Phone Care Team Providers Care Anesthesiology Technologist Name Role Phone Martita Simons D.O., PP Unavailable CCM Unavailable Summary Purpose Interface Exchange Insurance Providers Payer name Policy type / Coverage type Covered democrat ID Effective Begin Date Effective End Date [facility] Commercial Insurance [id number] Unknown Family history Brother Diagnosis Age At Onset No Family Disease Entered N/A Father Diagnosis Age At Onset No Family Disease Entered N/A Mother Diagnosis Age At Onset No Family Disease Entered N/A Social History Social History Element Codes Description Effective Dates Tobacco history SNOMED CT: 28817601 Current every day smoker 06/2012 Number of [...] Problems Condition Codes Effective Dates Condition Status COPD (chronic obstructive pulmonary disease) ICD-9: 49 6 ICD-10: J44.9 10/07/2019 Active Coronary artery disease ICD-9: 414.00 ICD-10: I25.10 12/25/2018 Active Mixed hyperlipidemia ICD-9: 272.4 ICD-10: E78.2 12/17/2013 Active Neuropathy of left foot ICD-9: 355.8 ICD-10: G57.92 10/07/2019 Active Cephalgia ICD-9: 784.0 ICD-10: R51 07/01/2019 Active Family history of brain aneurysm ICD-9: V17.1 ICD-10: Z82.49 07/01/2019 Active Other intervertebral disc degeneration, lumbar region ICD-9: 722.52 ICD-10: M51.36 01/04/2017 Active Bilateral primary osteoarthritis of knee ICD-9: [...] Start Date Stop Date Status Fill Instructions hydrocodone 10 mg-acetaminophen 325 mg tablet RxNorm: 207323 1 Tablet(s) Oral Q6H as needed for pain 12/26/2019 12/26/2019 Inactive (Response to an electronic controlled substance refill request - RxReferenceNumber: [id number]|1|0|1) hydrocodone 10 mg-acetaminophen 325 mg tablet RxNorm: 203647 1 Tablet(s) Oral Q6H as needed for pain 11/25/2019 11/25/2019 Inactive (Response to an electronic controlled substance refill request - RxReferenceNumber: [id number]|1|0|1) metoprolol succinate ER 25 mg tablet,extended release 24 hr RxNorm: 257444 1 Tablet(s) Oral QD 10/28/2019 10/28/2019 Inactive hydrocodone 10 mg-acetaminophen 325 mg tablet RxNorm: 847167 1 Tablet(s) PO Q6H as needed for pain 10/24/2019 11/24/2019 Inactive (Response to an electronic controlled substance refill request - RxReferenceNumber: [id number]|1|0|1) hydrocodone 10 mg-acetaminophen 325 mg tablet RxNorm: 886582 1 Tablet(s) PO Q6H as needed for pain 09/26/2019 10/23/2019 Inactive (Response to an electronic controlled substance refill request - RxReferenceNumber: [id number]|1|0|1) hydrocodone 10 mg-acetaminophen 325 mg tablet RxNorm: 085869 1 Tablet(s) PO Q6H as needed for pain 08/26/2019 09/25/2019 Inactive (Response to an electronic controlled substance refill request - RxReferenceNumber: [id number]|1|0|1) hydrocodone 10 mg-acetaminophen 325 mg tablet RxNorm: 375443 1 Tablet(s) PO Q6H as needed for pain 07/25/2019 08/25/2019 Inactive (Response to an electronic controlled substance refill request - RxReferenceNumber: [id number]|1|0|1) hydrocodone 10 mg-acetaminophen 325 mg tablet RxNorm: 491370 1 Tablet(s) PO Q6H as needed for pain 06/26/2019 07/24/2019 Inactive (Response to an electronic controlled substance refill request - RxReferenceNumber: [id number]|1|0|1) hydrocodone 10 mg-acetaminophen 325 mg tablet RxNorm: 033976 1 Tablet(s) PO Q6H as needed for pain 05/28/2019 06/25/2019 Inactive (Response to an electronic controlled substance refill request - RxReferenceNumber: [id number]|1|0|1) hydrocodone 10 mg-acetaminophen 325 mg tablet RxNorm: 239463 1 Tablet(s) PO Q6H as needed for pain 02/25/2019 05/27/2019 Inactive (Response to an electronic controlled substance refill request - RxReferenceNumber: [id number]|1|0|1) hydrocodone 10 mg-acetaminophen 325 mg tablet RxNorm: 119041 1 Tablet(s) PO Q6H as needed for pain 11/26/2018 02/24/2019 Inactive (Response to an electronic controlled substance refill request - RxReferenceNumber: [id number]|1|0|1) hydrocodone 10 mg-acetaminophen 325 mg tablet RxNorm: 985670 1 Tablet(s) PO Q6H as needed for pain 10/30/2018 11/25/2018 Inactive (Response to an electronic controlled substance refill request - RxReferenceNumber: [id number]|1|0|1) hydrocodone 10 mg-acetaminophen 325 mg tablet RxNorm: 240402 1 Tablet(s) PO Q6H as needed for pain 09/26/2018 10/29/2018 Inactive (Response to an electronic controlled substance refill request - RxReferenceNumber: [id number]|1|0|1) hydrocodone 10 mg-acetaminophen 325 mg tablet RxNorm: 137765 1 Tablet(s) PO Q6H as needed for pain 08/30/2018 09/25/2018 Inactive (Response to an electronic controlled substance refill request - RxReferenceNumber: [id number]|1|0|1) hydrocodone 10 mg-acetaminophen 325 mg tablet RxNorm: 616608 1 Tablet(s) PO Q6H as needed for pain 08/01/2018 08/29/2018 Inactive (Response to an electronic controlled substance refill request - RxReferenceNumber: [id number]|1|0|1) hydrocodone 10 mg-acetaminophen 325 mg tablet RxNorm: 256176 1 Tablet(s) PO Q6H as needed for pain 07/04/2018 07/31/2018 Inactive (Response to an electronic controlled substance refill request - RxReferenceNumber: [id number]|1|0|1) hydrocodone 10 mg-acetaminophen 325 mg tablet RxNorm: 449450 1 Tablet(s) PO Q6H as needed for pain 05/31/2018 07/03/2018 Inactive (Response to an electronic controlled substance refill request - RxReferenceNumber: [id number]|1|0|1) hydrocodone 10 mg-acetaminophen 325 mg tablet RxNorm: 628556 1 Tablet(s) PO Q6H as needed for pain 05/01/2018 05/30/2018 Inactive (Response to an electronic controlled substance refill request - RxReferenceNumber: [id number]|1|0|1) hydrocodone 10 mg-acetaminophen 325 mg tablet RxNorm: 883337 1 Tablet(s) PO Q6H as needed for pain 04/03/2018 04/30/2018 Inactive (Response to an electronic controlled substance refill request - RxReferenceNumber: [id number]|1|0|1) hydrocodone 10 mg-acetaminophen 325 mg tablet RxNorm: 355299 1 Tablet(s) PO Q6H as needed for pain 02/26/2018 04/02/2018 Inactive (Response to an electronic controlled substance refill request - RxReferenceNumber: [id number]|1|0|1) clotrimazole-betamethasone 1 %-0.05 % topical cream RxNorm: 900466 TOP As Directed CALL IF NO IMPROVEMENT IN 2 WEEKS 01/30/2018 01/29/2018 Inact kole [SAVINGS FOR UNINSURED PATIENTS -- BIN:[id number], PCN: [id number], Group: [id number], ID# [id number], Process claim through [employer], for questions: . THIS IS NOT INSURANCE.] hydrocodone 10 mg-acetaminophen 325 mg tablet RxNorm: 665422 1 Tablet(s) PO Q6H as needed for pain 01/29/2018 02/25/2018 Inactive (Response to an electronic controlled substance refill request - RxReferenceNumber: [id number]|1|0|1) hydrocodone 10 mg-acetaminophen 325 mg tablet RxNorm: 644310 1 Tablet(s) PO Q6H as needed for pain 12/28/2017 01/28/2018 Inactive (Response to an electronic controlled substance refill request - RxReferenceNumber: [id number]|1|0|1) hydrocodone 10 mg-acetaminophen 325 mg tablet RxNorm: 870003 1 Tablet(s) PO Q6H as needed for pain 11/29/2017 12/27/2017 Inactive (Response to an electronic controlled substance refill request - RxReferenceNumber: [id number]|1|0|1) hydrocodone 10 mg-acetaminophen 325 mg tablet RxNorm: 888389 1 Tablet(s) PO Q6H as needed for pain 11/02/2017 11/28/2017 Inactive (Response to an electronic controlled substance refill request - RxReferenceNumber: [id number]|1|0|1) hydrocodone 10 mg-acetaminophen 325 mg tablet RxNorm: 046197 1 Tablet(s) PO Q6H as needed for pain 10/02/2017 11/01/2017 Inactive (Response to an electronic controlled substance refill request - RxReferenceNumber: [id number]|1|0|1) hydrocodone 10 mg-acetaminophen 325 mg tablet RxNorm: 137807 1 Tablet(s) PO Q6H as needed for pain 08/30/2017 10/01/2017 Inactive (Response to an electronic controlled substance refill request - RxReferenceNumber: [id number]|1|0|1) hydrocodone 10 mg-acetaminophen 325 mg tablet RxNorm: 319779 1 Tablet(s) PO Q6H as needed for pain 08/01/2017 08/29/2017 Inactive (Response to an electronic controlled substance refill request - RxReferenceNumber: [id number]|1|0|1) hydrocodone 10 mg-acetaminophen 325 mg tablet RxNorm: 840531 1 Tablet(s) PO Q6H as needed for pain 06/26/2017 07/31/2017 Inactive (Response to an electronic controlled substance refill request - RxReferenceNumber: [id number]|1|0|1) hydrocodone 10 mg-acetaminophen 325 mg tablet RxNorm: 936058 1 Tablet(s) PO Q6H as needed for pain 06/26/2017 06/30/2019 Inactive (Response to an electronic controlled substance refill request - RxReferenceNumber: [id number]|1|0|1) hydrocodone 10 mg-acetaminophen 325 mg tablet RxNorm: 345355 1 Tablet(s) PO Q6H as needed for pain 03/27/2017 06/25/2017 Inactive (Response to an electronic controlled substance refill request - RxReferenceNumber: [id number]|1|0|1) hydrocodone 10 mg-acetaminophen 325 mg tablet RxNorm: 438066 1 Tablet(s) PO Q6H as needed for pain 02/23/2017 03/26/2017 Inactive (Response to an electronic controlled substance refill request - RxReferenceNumber: [id number]|1|0|1) hydrocodone 10 mg-acetaminophen 325 mg tablet RxNorm: 878660 1 Tablet(s) PO Q6H as needed for pain 01/24/2017 02/22/2017 Inactive (Response to an electronic controlled substance refill request - RxReferenceNumber: [id number]|1|0|1) hydrocodone 10 mg-acetaminophen 325 mg tablet RxNorm: 952997 1 Tablet(s) PO Q6H as needed for pain 12/27/2016 06/30/2019 Inactive (Response to an electronic controlled substance refill request - RxReferenceNumber: [id number]|1|0|1) hydrocodone 10 mg-acetaminophen 325 mg tablet RxNorm: 972767 1 Tablet(s) PO Q6H as needed for pain 12/27/2016 01/23/2017 Inactive (Response to an electronic controlled substance refill request - RxReferenceNumber: [id number]|1|0|1) hydrocodone 10 mg-acetaminophen 325 mg tablet RxNorm: 736599 1 Tablet(s) PO Q6H as needed for pain 11/23/2016 12/26/2016 Inactive (Response to an electronic controlled substance refill request - RxReferenceNumber: [id number]|1|0|1) hydrocodone 10 mg-acetaminophen 325 mg tablet RxNorm: 013664 1 Tablet(s) PO Q6H as needed for pain 10/20/2016 11/22/2016 Inactive (Response to an electronic controlled substance refill request - RxReferenceNumber: [id number]|1|0|1) hydrocodone 10 mg-acetaminophen 325 mg tablet RxNorm: 621863 1 Tablet(s) PO Q6H as needed for pain 09/26/2016 10/19/2016 Inactive (Response to an electronic controlled substance refill request - RxReferenceNumber: [id number]|1|0|1) hydrocodone 10 mg-acetaminophen 325 mg tablet RxNorm: 893558 1 Tablet(s) PO Q6H as needed for pain 07/27/2016 09/25/2016 Inactive (Response to an electronic controlled substance refill request - RxReferenceNumber: [id number]|1|0|1) hydrocodone 10 mg-acetaminophen 325 mg tablet RxNorm: 711850 1 Tablet(s) PO Q6H as needed for pain 05/04/2016 07/26/2016 Inactive (Response to an electronic controlled substance refill request - RxReferenceNumber: [id number]|1|0|1) hydrocodone 10 mg-acetaminophen 325 mg tablet RxNorm: 002105 1 Tablet(s) PO Q6H as needed for pain 03/31/2016 05/03/2016 Inactive (Response to an electronic controlled substance refill request - RxReferenceNumber: [id number]|1|0|1) citalopram 10 mg tablet RxNorm: 822090 1 Tablet(s) PO QD 09/28/2015 0 09/27/2015 Inactive citalopram 10 mg tablet RxNorm: 266299 1 Tablet(s) PO QD 09/28/2015 0 09/06/2016 Inactive Wellbutrin SR 150 mg tablet,sustained-release RxNorm: 414054 1 Tablet(s) PO QAM 09/25/2015 09/06/2016 Inactive prednisone 20 mg tablet RxNorm: 975598 1 Tablet(s) PO T ID for 3 days then 1 po BID for 3 days then one daily for 3 days 08/31/2015 09/06/2016 Inactiv e cyclobenzaprine 10 mg tablet RxNorm: 832464 1 Tablet(s) PO TID as needed for muscle spasm 08/31/2015 07/17/2017 Inactive hydrocodone 10 mg-acetaminophen 325 mg tablet RxNorm: 467603 1 Tablet(s) PO Q6H as needed for pain 08/26/2015 03/30/2016 Inactive (Response to an electronic controlled substance refill request - RxReferenceNumber: [id number]|1|0|1) hydrocodone 10 mg-acetaminophen 325 mg tablet RxNorm: 351803 1 Tablet(s) PO Q6H as needed for pain 07/28/2015 08/25/2015 Inactive (Response to an electronic controlled substance refill request - RxReferenceNumber: [id number]|1|0|1) hydrocodone 10 mg-acetaminophen 325 mg tablet RxNorm: 303276 1 Tablet(s) PO Q6H as needed for pain 06/23/2015 07/27/2015 Inactive (Response to an electronic controlled substance refill request - RxReferenceNumber: [id number]|1|0|1) hydrocodone 10 mg-acetaminophen 325 mg tablet RxNorm: 440803 1 Tablet(s) PO Q6H as needed for pain 05/21/2015 06/22/2015 Inactive (Response to an electronic controlled substance refill request - RxReferenceNumber: [id number]|1|0|1) azithromycin 250 mg tablet RxNorm: 504752 2 Tablet(s) P O on day one, then one tablet on days 2 - 5 04/27/2015 08/30/2015 Inactive hydrocodone 10 mg-acetaminophen 325 mg tablet RxNorm: 541060 1 Tablet(s) PO Q6H as needed for pain 03/25/2015 05/20/2015 Inactive (Response to an electronic controlled substance refill request - RxReferenceNumber: [id number]|1|0|1) hydrocodone 10 mg-acetaminophen 325 mg tablet RxNorm: 635915 1 Tablet(s) PO Q6H as needed for pain 02/24/2015 03/24/2015 Inactive (Response to an electronic controlled substance refill request - RxReferenceNumber: [id number]|1|0|1) hydrocodone 10 mg-acetaminophen 325 mg tablet RxNorm: 619579 1 Tablet(s) PO Q6H as needed for pain 01/23/2015 02/23/2015 Inactive (Response to an electronic controlled substance refill request - RxReferenceNumber: [id number]|1|0|1) hydrocodone 10 mg-acetaminophen 325 mg tablet RxNorm: 600681 1 Tablet(s) PO Q6H as needed for pain 12/23/2014 01/22/2015 Inactive (Response to an electronic controlled substance refill request - RxReferenceNumber: [id number]|1|0|1) hydrocodone 10 mg-acetaminophen 325 mg tablet RxNorm: 784770 1 Tablet(s) PO Q6H as needed for pain 11/24/2014 12/22/2014 Inactive (Response to an electronic controlled substance refill request - RxReferenceNumber: [id number]|1|0|1) hydrocodone 10 mg-acetaminophen 325 mg tablet RxNorm: 380093 1 Tablet(s) PO Q6H as needed for pain 10/28/2014 11/23/2014 Inactive (Response to an electronic controlled substance refill request - RxReferenceNumber: [id number]|1|0|1) hydrocodone 10 mg-acetaminophen 325 mg tablet RxNorm: 577912 1 Tablet(s) PO Q6H as needed for pain 09/25/2014 10/27/2014 Inactive (Response to an electronic controlled substance refill request - RxReferenceNumber: [id number]|1|0|1) Lipitor 80 mg tablet RxNorm: 069456 1 Tablet(s) PO QHS 09/24/2014 Inactive hydrocodone 10 mg-acetaminophen 325 mg tablet RxNorm: 457584 1 Tablet(s) PO Q6H as needed for pain 07/30/2014 09/24/2014 Inactive (Response to an electronic controlled substance refill request - RxReferenceNumber: [id number]|1|0|1) hydrocodone 10 mg-acetaminophen 325 mg tablet RxNorm: 836499 1 Tablet(s) PO Q6H as needed for pain 05/27/2014 07/29/2014 Inactive (Response to an electronic controlled substance refill request - RxReferenceNumber: [id number]|1|0|1) clotrimazole-betamethasone 1 %-0.05 % topical cream RxNorm: 919195 TOP As Directed 05/01/2014 08/30/2015 Inactive [SAVINGS FOR UNI NSURED PATIENTS -- BIN:[id number], PCN: [id number], Group: [id number], ID# [id number], Process claim through [employer], for questions: . THIS IS NOT INSURANCE.] Lipitor 80 mg tablet RxNorm: 286855 1 Tablet(s) PO QHS 04/28/2014 Inactive hydrocodone 10 mg-acetaminophen 325 mg tablet RxNorm: 244295 1 Tablet(s) PO Q6H as needed for pain 04/28/2014 05/26/2014 Inactive (Response to an electronic controlled substance refill request - RxReferenceNumber: [id number]|1|0|1) hydrocodone 10 mg-acetaminophen 325 mg tablet RxNorm: 698924 1 Tablet(s) PO Q6H as needed for pain 03/27/2014 04/27/2014 Inactive (Response to an electronic controlled substance refill request - RxReferenceNumber: [id number]|1|0|1) hydrocodone 10 mg-acetaminophen 325 mg tablet RxNorm: 639326 1 Tablet(s) PO Q6H as needed for pain 12/20/2013 12/20/2013 Inactive (Appended: Co ntrolled substance eRx refill - RxReferenceNumber: [id number]|1|0|1) hydrocodone 10 mg-acetaminophen 325 mg tablet RxNorm: 794639 TAKE 1 TABLET BY MOUTH EVERY 6 HOURS NEEDED FOR PAIN 12/20/2013 01/12/2014 Inactive (Response to an electronic controlled substance refill request - RxReferenceNumber: [id number]|1|0|1) hydrocodone 10 mg-acetaminophen 325 mg tablet RxNorm: 895785 1 Tablet(s) PO Q6H as needed for pain 09/03/2013 12/19/2013 Inactive (Appended: Co ntrolled substance eRx refill - RxReferenceNumber: [id number]|1|0|1) hydrocodone 10 mg-acetaminophen 325 mg tablet RxNorm: 419148 Tablet(s) PO TAKE 1 TABLET BY MOUTH EVERY 6 HOURS NEEDED FOR PAIN 08/08/2013 09/03/2013 Inactive (Appended: Controlled substance eRx refill - RxReferenceNumber: [id number]|1|0|1) hydrocodone 10 mg-acetaminophen 325 mg tablet RxNorm: 244155 Tablet(s) PO TAKE 1 TABLET BY MOUTH EVERY 6 HOURS NEEDED FOR PAIN 07/11/2013 08/07/2013 Inactive (Appended: Controlled substance eRx refill - RxReferenceNumber: [id number]|1|0|1) hydrocodone 10 mg-acetaminophen 325 mg tablet RxNorm: 835882 2 Tablet(s) PO TAKE 1 TABLET BY MOUTH EVERY 6 HOURS NEEDED FOR PAIN 06/12/2013 3 Inactive (Appended: Controlled substance eRx ref ill - RxReferenceNumber: [id number]|1|0|1) hydrocodone 10 mg-acetaminophen 325 mg tablet RxNorm: 589260 2 1 Tablet(s) PO Q6H NEEDED FOR PAIN 05/15/2013 06/12/2013 Inactive (Appended: Co ntrolled substance eRx refill - RxReferenceNumber: [id number]|1|0|1) hydrocodone 10 mg-acetaminophen 325 mg tablet RxNorm: 646091 2 Tablet(s) PO TAKE 1 TO 2 TABLETS BY MOUTH EVERY 6 HOURS NEEDED FOR PAIN 04/18/2013 No Stop Date Active (Appended: Controlled substa nce eRx refill - RxReferenceNumber: [id number]|1|0|1) hydrocodone 10 mg-acetaminophen 325 mg tablet RxNorm: 203304 2 Tablet(s) PO TAKE 1 TO 2 TABLETS BY MOUTH EVERY 6 HOURS NEEDED FOR PAIN 03/19/2013 No Stop Date Active (Appended: Controlled substa nce eRx refill - RxReferenceNumber: [id number]|1|0|1) hydrocodone 10 mg-acetaminophen 325 mg tablet RxNorm: 886238 2 Tablet(s) PO TAKE 1 TO 2 TABLETS BY MOUTH EVERY 6 HOURS NEEDED FOR PAIN 02/06/2013 Inactive (Appended: Controlled substance eRx refi ll - RxReferenceNumber: [id number]|1|0|1) hydrocodone 10 mg-acetaminophen 325 mg tablet RxNorm: 064053 2 Tablet(s) PO TAKE 1 TO 2 TABLETS BY MOUTH EVERY 6 HOURS NEEDED FOR PAIN 01/08/201304/2013 Inactive (Appended: Controlled substance eRx ref ill - RxReferenceNumber: [id number]|1|0|1) Zithromax 250 mg tablet RxNorm: 370755 2 Tablet(s) PO QD 12/04/2012 0 12/10/2012 Inactive prednisone 20 mg tablet RxNorm: 433371 1 Tablet(s) PO BID 12/04/2012 12/10/2012 Inactive atorvastatin 40 mg tablet RxNorm: 704832 1 Tablet(s) PO QD 11/09/19 13 12/17/2013 Inactive hydrocodone 10 mg-acetaminophen 325 mg tablet RxNorm: 992325 2 Tablet(s) PO TAKE 1 TO 2 TABLETS BY MOUTH EVERY 6 HOURS NEEDED FOR PAIN 10/18/201205/2013 Inactive (Appended: Controlled substance eRx ref ill - RxReferenceNumber: [id number]|1|0|1) hydrocodone 10 mg-acetaminophen 325 mg tablet RxNorm: 889508 2 1-2 Tablet(s) PO Q6H as needed for pain 09/06/2012 10/18/2012 Inactive Lamisil 250 mg tablet RxNorm: 900565 1 Tablet(s) PO QD 08/14/2012 Inactive atorvastatin 40 mg tablet RxNorm: 628369 1 Tablet(s) PO QD 08/08/19 13 11/05/2012 Inactive prednisone 20 mg tablet RxNorm: 723320 1 Tablet(s) PO BID 07/17/2012 07/23/2012 Inactive Wellbutrin SR 150 mg tablet,extended release RxNorm: 325465 1 T ablet(s) PO BID 07/17/2012 08/13/2012 Inactive meloxicam 15 mg tablet RxNorm: 696069 1 Tablet(s) PO QD for pain 07/16/2012 Inactive atorvastatin 40 mg tablet RxNorm: 272319 1 Tablet(s) PO QD 06/27/20 12 08/07/2012 Inactive hydrocodone-acetaminophen 10 mg-325 mg tablet RxNorm: 639825 2 1-2 Tablet(s) PO Q6H as needed for pain 05/23/2012 No Stop Date Active hydrocodone-acetaminophen 10 mg-325 mg tablet RxNorm: 390192 2 1-2 Tablet(s) PO Q6H as needed for pain 04/24/2012 No Stop Date Active hydrocodone-acetaminophen 10 mg-325 mg tablet RxNorm: 384920 2 1-2 Tablet(s) PO Q6H as needed for pain 02/08/2012 No Stop Date Active hydrocodone-acetaminophen 10 mg-325 mg Tab RxNorm: 9856229 1-2 Tablet(s) PO Q6H as needed for pain 01/02/2012 No Stop Date Active hydrocodone-acetaminophen 10 mg-325 mg Tab RxNorm: 8920626 1-2 Tablet(s) PO Q6H as needed for pain 11/29/2011 No Stop Date Active hydrocodone-acetaminophen 10 mg-325 mg Tab RxNorm: 0339952 1-2 Tablet(s) PO Q6H as needed for pain 10/24/2011 No Stop Date Active hydrocodone-acetaminophen 10 mg-325 mg Tab RxNorm: 8683123 1-2 Tablet(s) PO Q6H as needed for pain 10/07/2011 No Stop Date Active simvastatin 40 mg Tab RxNorm: 669427 1 Tablet(s) PO QHS 08/11/2011 Inactive clopidogrel 75 mg tablet RxNorm: 124013 1 Tablet(s) PO QD No Start Da te Active Symbicort 160 mcg-4.5 mcg/actuation HFA aerosol inhaler RxNo rm: 6686879 2 INH QD No Start Date Active atorvastatin 40 mg tablet RxNorm: 168523 1 Tablet(s) PO QD No Start D ate Active aspirin 81 mg tablet RxNorm: 006779 1 Tablet(s) PO QD No Start Date Active Vitamin D3 2,000 unit tablet RxNorm: 000785 3 Tablet(s) PO No Start D ate Active lisinopril 5 mg tablet RxNorm: 325979 1 Tablet(s) PO QD No Start Date Active hydrocodone-acetaminophen 10 mg-325 mg Tab RxNorm: 3760291 1-2 Tablet(s) PO Q6H as needed for pain No Start Date 10/06/2011 Inactive Wellbutrin SR 150 mg tablet,sustained-release RxNorm: 154848 1 Tablet(s) PO QAM No Start Date 09/24/2015 Inactive metoprolol succinate ER 25 mg tablet,extended release 24 hr RxNorm: 082870 1 Tablet(s) PO QD No Start Date 10/27/2019 Inactive OxyContin 15 mg 12 hr Tab RxNorm: 5430389 1 Tablet(s) PO BID No Sta rt Date 08/10/2011 Inactive warfarin 5 mg Tab RxNorm: 043232 1 Tablet(s) PO QD No Start Date 03/01 Inactive albuterol sulfate 1.25 mg/3 mL Neb Solution RxNorm: 609999 1 Unit Dose INH prn wheezing, congestion, shortness of breath No Start Date 04/30/2014 Inacti ve azithromycin 250 mg tablet RxNorm: 956075 2 Tablet(s) P O on day one, then one tablet on days 2 - 5 No Start Date 04/26/2015 Inactive warfarin 10 mg Tab RxNorm: 160782 1 Tablet(s) PO QOD No Start Date Inactive Symbicort Inhl RxNorm: Inhalation No Start Date 12/16/2013 Inactive Trilipix 135 mg Cap RxNorm: 784431 1 Capsule(s) PO QD No Start Date 0 12/07/2011 Inactive Chantix Starting Month Box 0.5 mg (11)-1 mg (42) table ts in dose pack RxNorm: 961136 Tablet(s) PO as directed No Start Date 12/03/2012 Inactive clotrimazole-betamethasone 1 %-0.05 % topical cream RxNorm: 824531 TOP As Directed No Start Date 04/30/2014 Inactive nystatin-triamcinolone 100,000 unit/g-0.1 % Topical Cream Rx Norm: 0937842 Application TOP BID for 2-4weeks No Start Date 12/03/2012 Inactive Lovastatin 20 mg Tab RxNorm: 314525 1 Tablet(s) PO QHS No Start Date 08/10/2011 Inactive krill oil oral RxNorm: 71699 oral No Start Date 06/30/2019 Inacti ve warfarin 7.5 mg Tab RxNorm: 193546 1 Tablet(s) PO QOD No Start Date 1 09/16/2011 Inactive Lipitor 80 mg tablet RxNorm: 139963 1 Tablet(s) PO QHS No Start Date 04/27/2014 Inactive simvastatin 40 mg Tab RxNorm: 311058 1 Tablet(s) PO QHS No Start Da te 08/10/2011 Inactive Gemfibrozil 600 mg Tab RxNorm: 372825 1 Tablet(s) PO QHS No Start D ate 08/10/2011 Inactive Medication Administered No Medication Administered data Immunizations No Immunization data Results Observation Observation Code Item Item Code Result Date S [facility] Location COMPLETE BLOOD COUNT [id number] WBC 9.7 10e9/L 06/19/20 18 Unknown COMPLETE BLOOD COUNT [id number] RBC 5.35 10e12/L 2017 Unknown COMPLETE BLOOD COUNT [id number] HEMOGLOBIN 17.1 g/dL 06/19/20 18 Unknown COMPLETE BLOOD COUNT [id number] HEMATOCRIT 52.4 % 06/19/20 18 Unknown COMPLETE BLOOD COUNT [id number] MCV 97.9 fL 8 Unknown COMPLETE BLOOD COUNT [id number] MCH 32.0 pg 8 Unknown COMPLETE BLOOD COUNT [id number] MCHC 32.6 g/dL 8 Unknown COMPLETE BLOOD COUNT [id number] PLATELET COUNT 257 10e9/L Unknown COMPLETE BLOOD COUNT [id number] Mean Plt Volume 11.2 fL Unknown COMPLETE BLOOD COUNT [id number] Neut Auto 54.6 % 8 Unknown COMPLETE BLOOD COUNT [id number] Lymph Auto 33.3 % 06/19/20 18 Unknown COMPLETE BLOOD COUNT [id number] [place] Auto 9.1 % 8 Unknown COMPLETE BLOOD COUNT [id number] RDW 14.4 % 8 Unknown COMPLETE BLOOD COUNT [id number] Eos Auto 2.6 % 8 Unknown COMPLETE BLOOD COUNT [id number] Baso Auto 0.4 % 8 Unknown COMPLETE BLOOD COUNT [id number] Neutrophil Abs 5.30 10e9/L Unknown COMPLETE BLOOD COUNT [id number] Lymphocyte Abs 3.23 10e9/L Unknown COMPLETE BLOOD COUNT [id number] Monocyte Abs 0.88 10e9/L 06/01 Unknown COMPLETE BLOOD COUNT [id number] Eosinophil Abs 0.25 10e9/L Unknown COMPLETE BLOOD COUNT [id number] RDW-SD 51.8 fL 8 Unknown COMPLETE BLOOD COUNT [id number] Basophil Abs 0.04 10e9/L 06/01 Unknown LIPID GROUP 78849 Cholesterol 222 mg/dL 06/19/2018 Unkno wn LIPID GROUP 53738 Triglyceride 111 mg/dL 06/19/2018 Unkn own LIPID GROUP 24108 HDL CHOLESTEROL 37 mg/dL 06/19/2018 U nknown LIPID GROUP 35337 Chol/HDL Ratio 6.00 ratio 06/19/2018 U nknown LIPID GROUP 54168 NON-HDL Chol 185 mg/dL 06/19/2018 Unkn own LIPID GROUP 61902 LDL Cholesterol 163 mg/dL 06/19/2018 U nknown VITAMIN B 12 87289 VITAMIN B12 532 pg/mL 06/19/2018 Unkn own THYROID STIMULATING HORMONE 86709 TSH 2.685 uIU/mL 06/19/2018 Unknown COMPREHENSIVE METABOLIC 65853 AST 15 U/L 2017 Unknown COMPREHENSIVE METABOLIC 06096 ALT 21 U/L 2017 Unknown COMPREHENSIVE METABOLIC 52290 BUN 16 mg/dL 2017 Unknown COMPREHENSIVE METABOLIC 28983 ALBUMIN 4.1 g/dL 2017 Unknown COMPREHENSIVE METABOLIC 42481 CHLORIDE 99 mmol/L 2017 Unknown COMPREHENSIVE METABOLIC 56034 Bili Total 0.4 mg/dL 06/19 Unknown COMPREHENSIVE METABOLIC 20830 ALK PHOS 43 U/L 2017 Unknown COMPREHENSIVE METABOLIC 05436 SODIUM 136 mmol/L 06/19 Unknown COMPREHENSIVE METABOLIC 95158 CREATININE 0.82 mg/dL 06/01 Unknown COMPREHENSIVE METABOLIC 80680 CALCIUM 9.5 mg/dL 2017 Unknown COMPREHENSIVE METABOLIC 10814 POTASSIUM 5.2 mmol/L 06/19 Unknown COMPREHENSIVE METABOLIC 35784 Total Protein 6.7 g/dL Unknown COMPREHENSIVE METABOLIC 07032 Glucose 81 mg/dL 2017 Unknown COMPREHENSIVE METABOLIC 98450 Bicarbonate 30 mmol/L 06/01 Unknown COMPREHENSIVE METABOLIC 87294 AGAP 7 mmol/L 2017 Unknown FREE T4 95241 T4 Free 0.85 ng/dL 06/19/2018 Unknown GFR CALC 0201390 GFR Non Afr Amr >60 mL/min 06/19/2018 Un known GFR CALC 7054658 GFR Afr Amr >60 mL/min 06/19/2018 Unknow n VITAMIN D TOTAL (25 HYDROXY) 41048 Vitamin D 25 [place] 24.1 ng/mL 06/19/2018 Unknown PSA EQUIMOLAR TROY 29358 PSA Total 0.88 ng/mL 8 Unknown GFR CALC 9778101 GFR Non Afr Amr >60 mL/min 09/09/2016 Un known GFR CALC 4256635 GFR Afr Amr >60 mL/min 09/09/2016 Unknow n COMPLETE BLOOD COUNT 7511393 WBC 11.7 10e9/L 017 Unknown COMPLETE BLOOD COUNT [id number] RBC 5.54 10e12/L 2016 Unknown COMPLETE BLOOD COUNT 1266822 HEMOGLOBIN 17.6 g/dL 09/09/19 17 Unknown COMPLETE BLOOD COUNT 6963708 HEMATOCRIT 52.3 % 09/09/19 17 Unknown COMPLETE BLOOD COUNT 3068711 MCV 94.4 fL 7 Unknown COMPLETE BLOOD COUNT 2774549 MCH 31.8 pg 7 Unknown COMPLETE BLOOD COUNT 4553633 MCHC 33.7 g/dL 7 Unknown COMPLETE BLOOD COUNT 1448981 PLATELET COUNT 259 10e9/L 04/2017 Unknown COMPLETE BLOOD COUNT 4859896 Mean Plt Volume 11.2 fL 04/2017 Unknown COMPLETE BLOOD COUNT 2288127 Neut Auto 53.6 % 7 Unknown COMPLETE BLOOD COUNT 2621030 Lymph Auto 36.2 % 09/09/19 17 Unknown COMPLETE BLOOD COUNT 5091817 [place] Auto 7.9 % 7 Unknown COMPLETE BLOOD COUNT 3329241 Eos Auto 2.1 % 7 Unknown COMPLETE BLOOD COUNT 4429860 RDW 14.2 % 7 Unknown COMPLETE BLOOD COUNT 2538359 Baso Auto 0.2 % 7 Unknown COMPLETE BLOOD COUNT 2794272 Neutrophil Abs 6.27 10e9/L Unknown COMPLETE BLOOD COUNT 9230131 Lymphocyte Abs 4.24 10e9/L Unknown COMPLETE BLOOD COUNT 0546225 Monocyte Abs 0.92 10e9/L 08/31 Unknown COMPLETE BLOOD COUNT 3299526 Eosinophil Abs 0.25 10e9/L Unknown COMPLETE BLOOD COUNT 7040494 RDW-SD 48.1 fL 7 Unknown COMPLETE BLOOD COUNT [id number] Basophil Abs 0.02 10e9/L 08/31 Unknown COMPREHENSIVE METABOLIC 47199 AST 19 U/L 2016 Unknown COMPREHENSIVE METABOLIC 65882 ALT 25 U/L 2016 Unknown COMPREHENSIVE METABOLIC 71367 BUN 16 mg/dL 2016 Unknown COMPREHENSIVE METABOLIC 19507 ALBUMIN 4.8 g/dL 2016 Unknown COMPREHENSIVE METABOLIC 91505 CHLORIDE 100 mmol/L 09/09 Unknown COMPREHENSIVE METABOLIC 65825 Bili Total 0.7 mg/dL 09/09 Unknown COMPREHENSIVE METABOLIC 06274 ALK PHOS 50 U/L 2016 Unknown COMPREHENSIVE METABOLIC 90317 SODIUM 136 mmol/L 09/09 Unknown COMPREHENSIVE METABOLIC 51113 CREATININE 0.98 mg/dL 08/31 Unknown COMPREHENSIVE METABOLIC 05962 CALCIUM 9.8 mg/dL 2016 Unknown COMPREHENSIVE METABOLIC 07443 POTASSIUM 4.6 mmol/L 09/09 Unknown COMPREHENSIVE METABOLIC 80201 Total Protein 7.5 g/dL Unknown COMPREHENSIVE METABOLIC 48433 Glucose 104 mg/dL 2016 Unknown COMPREHENSIVE METABOLIC 82358 Bicarbonate 27 mmol/L 08/31 Unknown COMPREHENSIVE METABOLIC 37284 AGAP 9 mmol/L 2016 Unknown FREE T4 31801 T4 Free 1.04 ng/dL 09/09/2016 Unknown THYROID STIMULATING HORMONE 03716 TSH 1.618 uIU/mL 09/09/2016 Unknown LIPID GROUP 98872 Cholesterol 251 mg/dL 09/09/2016 Unkno wn LIPID GROUP 67628 Triglyceride 153 mg/dL 09/09/2016 Unkn own LIPID GROUP 88429 HDL CHOLESTEROL 33 mg/dL 09/09/2016 U nknown LIPID GROUP 64213 Chol/HDL Ratio 7.61 ratio 09/09/2016 U nknown LIPID GROUP 92462 NON-HDL Chol 218 mg/dL 09/09/2016 Unkn own LIPID GROUP 16786 LDL Cholesterol 187 mg/dL 09/09/2016 U nknown LIPID GROUP 54991 HDL TEST 39 MG/DL 09/15/2015 Unknown LIPID GROUP 90219 TRIG 106 MG/DL 09/15/2015 Unknown LIPID GROUP 16632 TEST LDL 152 MG/DL 09/15/2015 Unknown LIPID GROUP 68538 CHOL 212 MG/DL 09/15/2015 Unknown LIPID GROUP 60443 RCHOL/HDL 5.44 RATIO 09/15/2015 Unknow n LIPID GROUP 25758 NON-HDL CH 173 MG/DL 09/15/2015 Unknow n GFR CALC 6365542 GFR AA >60 ML/MIN 09/15/2015 Unknown GFR CALC 2711617 GFR NON-AA >60 ML/MIN 09/15/2015 Unknown COMPREHENSIVE METABOLIC 38020 AST 18 U/L 2015 Unknown COMPREHENSIVE METABOLIC 96410 ALT 28 IU/L 2015 Unknown COMPREHENSIVE METABOLIC 57226 BUN 14 MG/DL 2015 Unknown COMPREHENSIVE METABOLIC 89043 ALBUMIN 4.2 GM/DL 2015 Unknown COMPREHENSIVE METABOLIC 66250 CHLORIDE 101 MMOL/L 09/15 Unknown COMPREHENSIVE METABOLIC 55880 BILI TOT 0.6 MG/DL 2015 Unknown COMPREHENSIVE METABOLIC 23591 ALK PHOS 48 U/L 2015 Unknown COMPREHENSIVE METABOLIC 69838 SODIUM 135 MMOL/L 09/15 Unknown COMPREHENSIVE METABOLIC 29777 CREATININE 0.91 MG/DL 08/31 Unknown COMPREHENSIVE METABOLIC 95611 CALCIUM 9.2 MG/DL 2015 Unknown COMPREHENSIVE METABOLIC 33112 POTASSIUM 4.6 MMOL/L 09/15 Unknown COMPREHENSIVE METABOLIC 53491 PROT TOT 6.6 GM/DL 2015 Unknown COMPREHENSIVE METABOLIC 77843 Glucose 97 MG/DL 2015 Unknown COMPREHENSIVE METABOLIC 07686 BICARB 27 MMOL/L 2015 Unknown COMPREHENSIVE METABOLIC 53374 ANION GAP 7 MEQ/L 2015 Unknown LIPID GROUP 13697 HDL TEST 35 MG/DL 04/14/2015 Unknown LIPID GROUP 49522 TRIG 135 MG/DL 04/14/2015 Unknown LIPID GROUP 14915 TEST LDL 153 MG/DL 04/14/2015 Unknown LIPID GROUP 80478 CHOL 215 MG/DL 04/14/2015 Unknown LIPID GROUP 89578 RCHOL/HDL 6.14 RATIO 04/14/2015 Unknow n LIPID GROUP 63465 NON-HDL CH 180 MG/DL 04/14/2015 Unknow n GFR CALC 2931633 GFR AA >60 ML/MIN 04/14/2015 Unknown GFR CALC 5266761 GFR NON-AA >60 ML/MIN 04/14/2015 Unknown COMPREHENSIVE METABOLIC 28608 AST 23 U/L 2014 Unknown COMPREHENSIVE METABOLIC 25994 ALT 27 IU/L 2014 Unknown COMPREHENSIVE METABOLIC 59189 BUN 15 MG/DL 2014 Unknown COMPREHENSIVE METABOLIC 98202 ALBUMIN 4.2 GM/DL 2014 Unknown COMPREHENSIVE METABOLIC 29279 CHLORIDE 103 MMOL/L 04/14 Unknown COMPREHENSIVE METABOLIC 31353 BILI TOT 0.8 MG/DL 2014 Unknown COMPREHENSIVE METABOLIC 41434 ALK PHOS 50 U/L 2014 Unknown COMPREHENSIVE METABOLIC 04125 SODIUM 134 MMOL/L 04/14 Unknown COMPREHENSIVE METABOLIC 09728 CREATININE 0.93 MG/DL 03/31 Unknown COMPREHENSIVE METABOLIC 27783 CALCIUM 9.4 MG/DL 2014 Unknown COMPREHENSIVE METABOLIC 35693 POTASSIUM 4.4 MMOL/L 04/14 Unknown COMPREHENSIVE METABOLIC 33743 PROT TOT 6.8 GM/DL 2014 Unknown COMPREHENSIVE METABOLIC 47005 Glucose 101 MG/DL 2014 Unknown COMPREHENSIVE METABOLIC 82694 BICARB 25 MMOL/L 2014 Unknown COMPREHENSIVE METABOLIC 91179 ANION GAP 6 MEQ/L 2014 Unknown PSA EQUIMOLAR TROY 18985 PSA EQ 1.04 NG/ML 5 Unknown GFR CALC 2604779 GFR AA >60 ML/MIN 11/10/2014 Unknown GFR CALC 0100807 GFR NON-AA >60 ML/MIN 11/10/2014 Unknown LIPID GROUP 03304 HDL TEST 31 MG/DL 11/10/2014 Unknown LIPID GROUP 69838 TRIG 133 MG/DL 11/10/2014 Unknown LIPID GROUP 53721 TEST LDL 74 MG/DL 11/10/2014 Unknown LIPID GROUP 15074 CHOL 132 MG/DL 11/10/2014 Unknown LIPID GROUP 47818 RCHOL/HDL 4.26 RATIO 11/10/2014 Unknow n LIPID GROUP 32696 NON-HDL CH 101 MG/DL 11/10/2014 Unknow n COMPLETE BLOOD COUNT 7338495 WBC 10.2 10e9/L 015 Unknown COMPLETE BLOOD COUNT 4543320 RBC 5.01 10e12/L 2014 Unknown COMPLETE BLOOD COUNT 9659372 HGB 16.1 g/dL 5 Unknown COMPLETE BLOOD COUNT 0742892 HCT DET 48.1 % 5 Unknown COMPLETE BLOOD COUNT 4224404 MCV 96.0 fL 5 Unknown COMPLETE BLOOD COUNT 7865117 MCH 32.1 pg 5 Unknown COMPLETE BLOOD COUNT 1355493 MCHC 33.5 g/dL 5 Unknown COMPLETE BLOOD COUNT 7550100 PLT 248 10e9/L 11/11/19 15 Unknown COMPLETE BLOOD COUNT 0527794 MPV 11.4 fL 5 Unknown COMPLETE BLOOD COUNT 5103461 GIUSEPPE % 51.2 % 5 Unknown COMPLETE BLOOD COUNT 8295930 LY % 37.4 % 5 Unknown COMPLETE BLOOD COUNT 4055260 MON % 9.2 % 5 Unknown COMPLETE BLOOD COUNT 7914045 EOS % 2.0 % 5 Unknown COMPLETE BLOOD COUNT 4773299 BASO % 0.2 % 5 Unknown COMPLETE BLOOD COUNT 3565982 RDW 14.0 % 5 Unknown COMPLETE BLOOD COUNT 8315257 ABS GIUSEPPE 5.22 10e9/L 015 Unknown COMPLETE BLOOD COUNT 0521250 ABS LYMPH 3.81 10e9/L 015 Unknown COMPLETE BLOOD COUNT 2099032 ABS MONO 0.94 10e9/L 015 Unknown COMPLETE BLOOD COUNT 1965567 ABS EOS 0.20 10e9/L 015 Unknown COMPLETE BLOOD COUNT 1242619 ABS BASO 0.02 10e9/L 015 Unknown COMPLETE BLOOD COUNT 1920472 RDW-SD 47.8 fL 5 Unknown FREE T4 47086 FREE T4 0.92 NG/DL 11/10/2014 Unknown COMPREHENSIVE METABOLIC 71593 AST 18 U/L 2014 Unknown COMPREHENSIVE METABOLIC 89749 ALT 25 IU/L 2014 Unknown COMPREHENSIVE METABOLIC 92001 BUN 16 MG/DL 2014 Unknown COMPREHENSIVE METABOLIC 58557 ALBUMIN 4.5 GM/DL 2014 Unknown COMPREHENSIVE METABOLIC 05264 CHLORIDE 103 MMOL/L 11/10 Unknown COMPREHENSIVE METABOLIC 07297 BILI TOT 0.4 MG/DL 2014 Unknown COMPREHENSIVE METABOLIC 78339 ALK PHOS 53 U/L 2014 Unknown COMPREHENSIVE METABOLIC 65614 SODIUM 135 MMOL/L 11/10 Unknown COMPREHENSIVE METABOLIC 06983 CREATININE 0.97 MG/DL 10/29 Unknown COMPREHENSIVE METABOLIC 46612 CALCIUM 9.4 MG/DL 2014 Unknown COMPREHENSIVE METABOLIC 58265 POTASSIUM 4.4 MMOL/L 11/10 Unknown COMPREHENSIVE METABOLIC 58353 PROT TOT 6.9 GM/DL 2014 Unknown COMPREHENSIVE METABOLIC 82918 Glucose 91 MG/DL 2014 Unknown COMPREHENSIVE METABOLIC 97241 BICARB 26 MMOL/L 2014 Unknown COMPREHENSIVE METABOLIC 47269 ANION GAP 6 MEQ/L 2014 Unknown THYROID STIMULATING HORMONE 06411 TSH 3.791 uIU/ML 11/10/2014 Unknown LIPID GROUP 11934 HDL TEST 35 MG/DL 04/29/2014 Unknown LIPID GROUP 12784 TRIG 123 MG/DL 04/29/2014 Unknown LIPID GROUP 57053 TEST LDL 117 MG/DL 04/29/2014 Unknown LIPID GROUP 46927 CHOL 177 MG/DL 04/29/2014 Unknown LIPID GROUP 70864 RCHOL/HDL 5.06 RATIO 04/29/2014 Unknow n LIPID GROUP 40564 NON-HDL CH 142 MG/DL 04/29/2014 Unknow n COMPREHENSIVE METABOLIC 62415 AST 18 U/L 2013 Unknown COMPREHENSIVE METABOLIC 04616 ALT 29 IU/L 2013 Unknown COMPREHENSIVE METABOLIC 38295 BUN 19 MG/DL 2013 Unknown COMPREHENSIVE METABOLIC 38321 ALBUMIN 4.0 GM/DL 2013 Unknown COMPREHENSIVE METABOLIC 88496 CHLORIDE 106 MMOL/L 04/29 Unknown COMPREHENSIVE METABOLIC 73681 BILI TOT 0.4 MG/DL 2013 Unknown COMPREHENSIVE METABOLIC 01810 ALK PHOS 51 U/L 2013 Unknown COMPREHENSIVE METABOLIC 74221 SODIUM 138 MMOL/L 04/29 Unknown COMPREHENSIVE METABOLIC 01783 CREATININE 0.87 MG/DL 04/02 Unknown COMPREHENSIVE METABOLIC 68488 CALCIUM 9.4 MG/DL 2013 Unknown COMPREHENSIVE METABOLIC 89051 POTASSIUM 4.5 MMOL/L 04/29 Unknown COMPREHENSIVE METABOLIC 02032 PROT TOT 6.8 GM/DL 2013 Unknown COMPREHENSIVE METABOLIC 89029 Glucose 106 MG/DL 2013 Unknown COMPREHENSIVE METABOLIC 98853 BICARB 24 MMOL/L 2013 Unknown COMPREHENSIVE METABOLIC 82030 ANION GAP 8 MEQ/L 2013 Unknown GFR CALC 6267386 GFR AA >60 ML/MIN 04/29/2014 Unknown GFR CALC 8404630 GFR NON-AA >60 ML/MIN 04/29/2014 Unknown LIPID GROUP 16018 HDL TEST 30 MG/DL 12/18/2013 Unknown LIPID GROUP 81236 TRIG 128 MG/DL 12/18/2013 Unknown LIPID GROUP 74594 TEST LDL 166 MG/DL 12/18/2013 Unknown LIPID GROUP 17846 CHOL 222 MG/DL 12/18/2013 Unknown LIPID GROUP 74304 RCHOL/HDL 7.40 RATIO 12/18/2013 Unknow n GFR CALC 7794990 GFR AA >60 ML/MIN 12/18/2013 Unknown GFR CALC 6448181 GFR NON-AA >60 ML/MIN 12/18/2013 Unknown FREE T4 96009 FREE T4 1.07 NG/DL 12/18/2013 Unknown COMPLETE BLOOD COUNT 6220124 WBC 7.2 10e9/L 12/19/19 14 Unknown COMPLETE BLOOD COUNT 1099060 RBC 4.89 10e12/L 2013 Unknown COMPLETE BLOOD COUNT 5397319 HGB 15.5 g/dL 4 Unknown COMPLETE BLOOD COUNT 4403010 HCT DET 46.6 % 4 Unknown COMPLETE BLOOD COUNT 6284859 MCV 95.3 fL 4 Unknown COMPLETE BLOOD COUNT 1401270 MCH 31.7 pg 4 Unknown COMPLETE BLOOD COUNT 7762327 MCHC 33.3 g/dL 4 Unknown COMPLETE BLOOD COUNT 5055492 PLT 246 10e9/L 12/19/19 14 Unknown COMPLETE BLOOD COUNT 1112111 MPV 11.4 fL 4 Unknown COMPLETE BLOOD COUNT 4200353 GIUSEPPE % 48.6 % 4 Unknown COMPLETE BLOOD COUNT 3113226 LY % 37.4 % 4 Unknown COMPLETE BLOOD COUNT 5490032 MON % 10.5 % 4 Unknown COMPLETE BLOOD COUNT 1263632 EOS % 3.2 % 4 Unknown COMPLETE BLOOD COUNT 7249080 BASO % 0.3 % 4 Unknown COMPLETE BLOOD COUNT 9137088 RDW 13.6 % 4 Unknown COMPLETE BLOOD COUNT 5331011 ABS GIUSEPPE 3.50 10e9/L 014 Unknown COMPLETE BLOOD COUNT 0672632 ABS LYMPH 2.69 10e9/L 014 Unknown COMPLETE BLOOD COUNT 0258108 ABS MONO 0.76 10e9/L 014 Unknown COMPLETE BLOOD COUNT 4449883 ABS EOS 0.23 10e9/L 014 Unknown COMPLETE BLOOD COUNT 2017426 ABS BASO 0.02 10e9/L 014 Unknown COMPLETE BLOOD COUNT 3913658 RDW-SD 46.2 fL 4 Unknown COMPREHENSIVE METABOLIC 62438 AST 38 U/L 2013 Unknown COMPREHENSIVE METABOLIC 54849 ALT 33 IU/L 2013 Unknown COMPREHENSIVE METABOLIC 95061 BUN 15 MG/DL 2013 Unknown COMPREHENSIVE METABOLIC 47121 ALBUMIN 4.2 GM/DL 2013 Unknown COMPREHENSIVE METABOLIC 42761 CHLORIDE 103 MMOL/L 12/18 Unknown COMPREHENSIVE METABOLIC 98018 BILI TOT 0.6 MG/DL 2013 Unknown COMPREHENSIVE METABOLIC 46754 ALK PHOS 45 U/L 2013 Unknown COMPREHENSIVE METABOLIC 00434 SODIUM 136 MMOL/L 12/18 Unknown COMPREHENSIVE METABOLIC 49956 CREATININE 0.97 MG/DL 11/29 Unknown COMPREHENSIVE METABOLIC 70633 CALCIUM 9.2 MG/DL 2013 Unknown COMPREHENSIVE METABOLIC 07372 POTASSIUM 4.2 MMOL/L 12/18 Unknown COMPREHENSIVE METABOLIC 85710 PROT TOT 7.0 GM/DL 2013 Unknown COMPREHENSIVE METABOLIC 55181 Glucose 120 MG/DL 2013 Unknown COMPREHENSIVE METABOLIC 25519 BICARB 24 MMOL/L 2013 Unknown COMPREHENSIVE METABOLIC 84474 ANION GAP 9 MEQ/L 2013 Unknown THYROID STIMULATING HORMONE 13668 TSH 1.305 uIU/ML 12/18/2013 Unknown PSA EQUIMOLAR TROY 03051 PSA EQ 1.71 NG/ML 4 Unknown LIPID GROUP 99510 HDL TEST 29 MG/DL 07/17/2012 Unknown LIPID GROUP 73652 TRIG 155 MG/DL 07/17/2012 Unknown LIPID GROUP 93749 TEST LDL 105 MG/DL 07/17/2012 Unknown LIPID GROUP 59019 CHOL 165 MG/DL 07/17/2012 Unknown LIPID GROUP 98788 RCHOL/HDL 5.69 RATIO 07/17/2012 Unknow n GFR CALC 1753995 GFR AA >60 ML/MIN 07/17/2012 Unknown GFR CALC 1143493 GFR NON-AA >60 ML/MIN 07/17/2012 Unknown COMPREHENSIVE METABOLIC 03970 AST 19 U/L 2011 Unknown COMPREHENSIVE METABOLIC 23389 ALT 25 IU/L 2011 Unknown COMPREHENSIVE METABOLIC 65111 BUN 14 MG/DL 2011 Unknown COMPREHENSIVE METABOLIC 46214 ALBUMIN 4.4 GM/DL 2011 Unknown COMPREHENSIVE METABOLIC 72797 CHLORIDE 103 MMOL/L 07/17 Unknown COMPREHENSIVE METABOLIC 09122 BILI TOT 0.6 MG/DL 2011 Unknown COMPREHENSIVE METABOLIC 87999 ALK PHOS 53 U/L 2011 Unknown COMPREHENSIVE METABOLIC 70829 SODIUM 136 MMOL/L 07/17 Unknown COMPREHENSIVE METABOLIC 70112 CREATININE 0.97 MG/DL 06/30 Unknown COMPREHENSIVE METABOLIC 70943 CALCIUM 9.4 MG/DL 2011 Unknown COMPREHENSIVE METABOLIC 29176 POTASSIUM 4.3 MMOL/L 07/17 Unknown COMPREHENSIVE METABOLIC 68092 PROT TOT 6.9 GM/DL 2011 Unknown COMPREHENSIVE METABOLIC 13246 Glucose 102 MG/DL 2011 Unknown COMPREHENSIVE METABOLIC 23520 BICARB 27 MMOL/L 2011 Unknown COMPREHENSIVE METABOLIC 19790 ANION GAP 6 MEQ/L 2011 Unknown ERYTHROCYTE SEDIMENTATION RATE 78314 ESR 14 MM/HR 03/20/2012 Unknown LIPID GROUP 92872 HDL TEST 31 MG/DL 03/20/2012 Unknown LIPID GROUP 13625 TRIG 210 MG/DL 03/20/2012 Unknown LIPID GROUP 79720 TEST LDL 164 MG/DL 03/20/2012 Unknown LIPID GROUP 56092 CHOL 237 MG/DL 03/20/2012 Unknown LIPID GROUP 25000 RCHOL/HDL 7.65 RATIO 03/20/2012 Unknow n GFR CALC 4287170 GFR AA >60 ML/MIN 03/20/2012 Unknown GFR CALC 0433261 GFR NON-AA >60 ML/MIN 03/20/2012 Unknown C-REACTIVE PROTEIN (CRP) QUANT 81748 CRP 0.9 MG/DL 03/20/2012 Unknown COMPLETE BLOOD COUNT 70561 WBC 9.7 10e9/L 03/20/20 12 Unknown COMPLETE BLOOD COUNT 10399 RBC 5.14 10e12/L 2011 Unknown COMPLETE BLOOD COUNT 36865 HGB 15.5 g/dL 2 Unknown COMPLETE BLOOD COUNT 80167 HCT DET 46.9 % 2 Unknown COMPLETE BLOOD COUNT 09081 MCV 91.2 fL 2 Unknown COMPLETE BLOOD COUNT 86142 MCH 30.2 pg 2 Unknown COMPLETE BLOOD COUNT 67960 MCHC 33.0 g/dL 2 Unknown COMPLETE BLOOD COUNT 96350 PLT 280 10e9/L 03/20/20 12 Unknown COMPLETE BLOOD COUNT 86246 MPV 10.6 fL 2 Unknown COMPLETE BLOOD COUNT 24344 GIUSEPPE % 61.5 % 2 Unknown COMPLETE BLOOD COUNT 14883 LY % 26.5 % 2 Unknown COMPLETE BLOOD COUNT 63906 MON % 8.8 % 2 Unknown COMPLETE BLOOD COUNT 67231 EOS % 3.0 % 2 Unknown COMPLETE BLOOD COUNT 10784 BASO % 0.2 % 2 Unknown COMPLETE BLOOD COUNT 44996 RDW 15.3 % 2 Unknown COMPLETE BLOOD COUNT 23865 ABS GIUSEPPE 5.97 10e9/L 012 Unknown COMPLETE BLOOD COUNT 07005 ABS LYMPH 2.57 10e9/L 012 Unknown COMPLETE BLOOD COUNT 19936 ABS MONO 0.85 10e9/L 012 Unknown COMPLETE BLOOD COUNT 49277 ABS EOS 0.29 10e9/L 012 Unknown COMPLETE BLOOD COUNT 50600 ABS BASO 0.02 10e9/L 012 Unknown COMPLETE BLOOD COUNT 06649 RDW-SD 50.3 fL 2 Unknown COMPREHENSIVE METABOLIC 99297 AST 16 U/L 2011 Unknown COMPREHENSIVE METABOLIC 49863 ALT 21 IU/L 2011 Unknown COMPREHENSIVE METABOLIC 18282 BUN 15 MG/DL 2011 Unknown COMPREHENSIVE METABOLIC 89799 ALBUMIN 4.3 GM/DL 2011 Unknown COMPREHENSIVE METABOLIC 58738 CHLORIDE 102 MMOL/L 03/20 Unknown COMPREHENSIVE METABOLIC 60947 BILI TOT 0.5 MG/DL 2011 Unknown COMPREHENSIVE METABOLIC 88948 ALK PHOS 60 U/L 2011 Unknown COMPREHENSIVE METABOLIC 59724 SODIUM 135 MMOL/L 03/20 Unknown COMPREHENSIVE METABOLIC 35394 CREATININE 0.94 MG/DL 03/01 Unknown COMPREHENSIVE METABOLIC 73767 CALCIUM 9.0 MG/DL 2011 Unknown COMPREHENSIVE METABOLIC 32979 POTASSIUM 4.4 MMOL/L 03/20 Unknown COMPREHENSIVE METABOLIC 62801 PROT TOT 6.7 GM/DL 2011 Unknown COMPREHENSIVE METABOLIC 89794 Glucose 96 MG/DL 2011 Unknown COMPREHENSIVE METABOLIC 61866 BICARB 25 MMOL/L 2011 Unknown COMPREHENSIVE METABOLIC 08658 ANION GAP 8 MEQ/L 2011 [place] [address] PRO TIME 21.6 SEC 03/20/[place] [address] INR MCMC 1.8 03/20/2012 Unknow n Procedures Procedure Codes Date ROUTINE VENIPUNCTURE CPT-4: 53519 06/19/2018 ASSAY OF FREE THYROXINE CPT-4: 99831 06/19/2018 ASSAY THYROID STIM HORMONE CPT-4: 76796 06/19/2018 COMPREHEN METABOLIC PANEL CPT-4: 71928 06/19/2018 COMPLETE CBC W/AUTO DIFF WBC CPT-4: 84391 06/19/2018 LIPID PANEL CPT-4: 00419 06/19/2018 ASSAY OF PSA TOTAL CPT-4: 78016 06/19/2018 VITAMIN D TOTAL (25 HYDROXY) CPT-4: 86934 06/19/2018 VITAMIN B-12 CPT-4: 74816 06/19/2018 DEXAMETHASONE SODIUM PHOS CPT-4: J1100 08/31/2017 TRIAMCINOLONE ACET INJ NOS CPT-4: J3301 08/31/2017 DRAIN/INJECT JOINT/BURSA CPT-4: 80002 08/31/2017 ROUTINE VENIPUNCTURE CPT-4: 46364 08/01/2017 COMPREHEN METABOLIC PANEL CPT-4: 09259 08/01/2017 LIPID PANEL CPT-4: 36045 08/01/2017 DRAIN/INJECT JOINT/BURSA CPT-4: 24607 09/12/2016 TRIAMCINOLONE ACET INJ NOS CPT-4: J3301 09/12/2016 DEXAMETHASONE SODIUM PHOS CPT-4: J1100 09/12/2016 ROUTINE VENIPUNCTURE CPT-4: 61630 09/09/2016 ASSAY OF FREE THYROXINE CPT-4: 76450 09/09/2016 ASSAY THYROID STIM HORMONE CPT-4: 77937 09/09/2016 COMPREHEN METABOLIC PANEL CPT-4: 69355 09/09/2016 COMPLETE CBC W/AUTO DIFF WBC CPT-4: 42853 09/09/2016 LIPID PANEL CPT-4: 96936 09/09/2016 SPECIAL REPORTS OR FORMS CPT-4: 19204 08/05/2016 ROUTINE VENIPUNCTURE CPT-4: 99492 09/15/2015 COMPREHEN METABOLIC PANEL CPT-4: 59089 09/15/2015 LIPID PANEL CPT-4: 29478 09/15/2015 PRESCRIP TRANSMIT VIA ERX SY CPT-4: G8553 08/31/2015 ROUTINE VENIPUNCTURE CPT-4: 10870 04/14/2015 COMPREHEN METABOLIC PANEL CPT-4: 96592 04/14/2015 LIPID PANEL CPT-4: 98593 04/14/2015 ROUTINE VENIPUNCTURE CPT-4: 42566 11/10/2014 ASSAY OF FREE THYROXINE CPT-4: 82495 11/10/2014 ASSAY THYROID STIM HORMONE CPT-4: 07073 11/10/2014 COMPREHEN METABOLIC PANEL CPT-4: 05904 11/10/2014 COMPLETE CBC W/AUTO DIFF WBC CPT-4: 79078 11/10/2014 LIPID PANEL CPT-4: 82793 11/10/2014 ASSAY OF PSA TOTAL CPT-4: 23704 11/10/2014 ROUTINE VENIPUNCTURE CPT-4: 41736 04/29/2014 COMPREHEN METABOLIC PANEL CPT-4: 16957 04/29/2014 LIPID PANEL CPT-4: 64102 04/29/2014 ROUTINE VENIPUNCTURE CPT-4: 33309 12/18/2013 ASSAY OF FREE THYROXINE CPT-4: 93387 12/18/2013 ASSAY THYROID STIM HORMONE CPT-4: 76398 12/18/2013 COMPREHEN METABOLIC PANEL CPT-4: 15920 12/18/2013 COMPLETE CBC W/AUTO DIFF WBC CPT-4: 73754 12/18/2013 LIPID PANEL CPT-4: 46150 12/18/2013 ASSAY OF PSA TOTAL CPT-4: 66043 12/18/2013 ROUTINE VENIPUNCTURE CPT-4: 82290 07/17/2012 COMPREHEN METABOLIC PANEL CPT-4: 55405 07/17/2012 LIPID PANEL CPT-4: 02441 07/17/2012 ROUTINE VENIPUNCTURE CPT-4: 02921 03/20/2012 COMPLETE CBC W/AUTO DIFF WBC CPT-4: 48416 03/20/2012 RBC SED RATE AUTOMATED CPT-4: 53813 03/20/2012 C-REACTIVE PROTEIN CPT-4: 12222 03/20/2012 COMPREHEN METABOLIC PANEL CPT-4: 87359 03/20/2012 LIPID PANEL CPT-4: 83242 03/20/2012 PROTHROMBIN TIME CPT-4: 10490 03/20/2012 Vital Signs Date Vital 10/07/2019 Blood Pressure 1: 142/83 Code: 8480-6 BMI: 31.3 Code: 71369-7 Heart Rate 1: 80 bpm Height: 6'2" Respiratory Rate: 17 bpm SpO2: 99% Tempera ture: 36.7 (C) / 98.1 (F) Weight: 244 lbs 07/01/2019 Blood Pressure 1: 114/80 Code: 8480-6 BMI: 30.4 Code: 56340-3 Heart Rate 1: 72 bpm Height: 6'2" [...] 1: 126/82 Code: 8480-6 BMI: 31.2 Code: 73243-3 Heart Rate 1: 84 bpm Height: 6'2" Respiratory Rate: 20 bpm SpO2: 94% Tempera ture: 37.0 (C) / 98.6 (F) Weight: 243 lbs 03/02/2018 Blood Pressure 1: 122/80 Code: 8480-6 BMI: 30.8 Code: 67736-5 Heart Rate 1: 74 bpm Height: 6'2" Respiratory Rate: 20 bpm SpO2: 95% Tempera ture: 37.1 (C) / 98.8 (F) Weight: 240 lbs 08/31/2017 Blood Pressure 1: 136/90 Code: 8480-6 Heart Rate 1: 76 bpm Respiratory Rate: 20 bpm Temperature: 36.7 (C) / 98.0 (F) Weight: 247 lbs 07/18/2017 Blood Pressure 1: 126/78 Code: 8480-6 BMI: 31.3 Code: 49697-5 Heart Rate 1: 72 bpm Height: 6'2" Respiratory Rate: 20 bpm SpO2: 94% Tempera ture: 37.0 (C) / 98.6 (F) Weight: 244 lbs 04/24/2017 Blood Pressure 1: 152/92 Code: 8480-6 BMI: 31.1 Code: 27242-8 Heart Rate 1: 74 bpm Height: 6'2" Respiratory Rate: 18 bpm SpO2: 98% Tempera ture: 35.9 (C) / 96.6 (F) Weight: 242 lbs 01/04/2017 Blood Pressure 1: 122/70 Code: 8480-6 BMI: 30.4 Code: 37303-5 Heart Rate 1: 88 bpm Height: 6'2" Respiratory Rate: 20 bpm SpO2: 96% Tempera ture: 36.6 (C) / 97.8 (F) Weight: 237 lbs 09/12/2016 Blood Pressure 1: 136/78 Code: 8480-6 Heart Rate 1: 82 bpm Respiratory Rate: 22 bpm SpO2: 94% Temperature: 36.4 (C) / 97.6 (F) We ight: 234 lbs 09/07/2016 Blood Pressure 1: 122/70 Code: 8480-6 BMI: 30.0 Code: 51875-5 Heart Rate 1: 88 bpm Height: 6'2" Respiratory Rate: 20 bpm SpO2: 94% Tempera ture: 36.6 (C) / 97.9 (F) Weight: 234 lbs 08/31/2015 Blood Pressure 1: 142/94 Code: 8480-6 BMI: 28.9 Code: 06904-8 Heart Rate 1: 92 bpm Height: 6'2" Respiratory Rate: 20 bpm Temperature: 36 .9 (C) / 98.5 (F) Weight: 225 lbs 04/14/2015 Blood Pressure 1: 126/80 Code: 8480-6 BMI: 28.0 Code: 12250-4 Heart Rate 1: 76 bpm Height: 6'2" Respiratory Rate: 20 bpm Temperature: 36 .6 (C) / 97.8 (F) Weight: 218 lbs 10/07/2014 Blood Pressure 1: 128/76 Code: 8480-6 BMI: 28.6 Code: 90633-3 Heart Rate 1: 84 bpm Height: 6'2" Respiratory Rate: 22 bpm Temperature: 36 .6 (C) / 97.9 (F) Weight: 223 lbs 05/01/2014 Blood Pressure 1: 126/68 Code: 8480-6 BMI: 28.2 Code: 15876-0 Heart Rate 1: 84 bpm Height: 6'2" Respiratory Rate: 20 bpm Temperature: 36 .8 (C) / 98.3 (F) Weight: 220 lbs 12/17/2013 Blood Pressure 1: 136/82 Code: 8480-6 BMI: 29.6 Code: 62357-1 Heart Rate 1: 76 bpm Height: 6'1" Respiratory Rate: 20 bpm Temperature: 36 .8 (C) / 98.2 (F) Weight: 224 lbs 12/11/2012 Blood Pressure 1: 122/86 Code: 8480-6 BMI: 30.5 Code: 79324-6 Heart Rate 1: 76 bpm Height: 6'1" Respiratory Rate: 20 bpm SpO2: 93% Tempera ture: 36.8 (C) / 98.2 (F) Weight: 231 lbs 12/04/2012 Blood Pressure 1: 124/86 Code: 8480-6 BMI: 30.5 Code: 82401-3 Heart Rate 1: 68 bpm Height: 6'1" Respiratory Rate: 20 bpm SpO2: 95% Tempera ture: 36.6 (C) / 97.8 (F) Weight: 231 lbs 08/14/2012 Blood Pressure 1: 126/70 Code: 8480-6 BMI: 29.4 Code: 60913-1 Heart Rate 1: 80 bpm Height: 6'1" Respiratory Rate: 20 bpm Temperature: 36 .8 (C) / 98.3 (F) Weight: 223 lbs 07/17/2012 Blood Pressure 1: 124/82 Code: 8480-6 BMI: 29.7 Code: 55787-5 Heart Rate 1: 80 bpm Height: 6'1" Respiratory Rate: 20 bpm Temperature: 36 .8 (C) / 98.2 (F) Weight: 225 lbs 03/20/2012 Blood Pressure 1: 124/78 Code: 8480-6 BMI: 29.3 Code: 01411-9 Heart Rate 1: 72 bpm Height: 6'1" Respiratory Rate: 20 bpm Temperature: 36 .6 (C) / 97.8 (F) Weight: 222 lbs 12/08/2011 Blood Pressure 1: 112/64 Code: 8480-6 BMI: 28.2 Code: 20058-8 Heart Rate 1: 78 bpm Height: 6'1" Temperature: 36.3 (C) / 97.4 (F) Weight: 214 lbs 08/11/2011 Blood Pressure 1: 128/70 Code: 8480-6 BMI: 27.6 Code: 49663-2 Heart Rate 1: 76 bpm Height: 6'1" Respiratory Rate: 20 bpm Temperature: 36 .9 (C) / 98.4 (F) Weight: 209 lbs 05/26/2010 Blood Pressure 1: 116/78 Code: 8480-6 Heart Rate 1: 80 bpm Temperature: 36.7 (C) / 98.0 (F) Weight: 224 lbs Functional Status No Functional Status data Reason For Visit Reason For Visit Effective Dates Notes Medication Monitoring 10/07/2019 follow up 07/01/2019 follow [...] discuss oren ntix follow up 03/20/2012 from aditya Flores stopping the warfarin back pain 12/08/2011 ~generic 08/11/2011 Re-establishing visi t Yearly Checkup/Physical 05/26/2010 Establishing Vis it Encounters Encounter Performer Location Codes Date ([id number]) OFFICE/OUTPATIENT VISIT EST Diagnosis: COPD (chronic obstructive pulmonary disease)[ICD10: J44.9] Diagnosis: Mixed hyperlipidemia[ICD10: E78.2] Diagnosis: Coronary artery disease[ICD10: I25.10] Diagnosis: 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: G57.92] Martita GARCIA Infer CPT-4: 71020 10/07/2019 ([id number]) OFFICE/OUTPATIENT VISIT EST Diagnosis: Cephalgia[ICD10: R51] Diagnosis: Family history of brain aneurysm[ICD10: Z82.49] Diagnosis: Other intervertebral disc degeneration, 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] Martita MCGOVERN Infer CPT-4: 49410 07/01/2019 ([id number]) OFFICE/OUTPATIENT VISIT EST Diagnosis: Atherosclerotic heart disease of [place] coronary artery without angina pectoris[ICD10: I25.10] Diagnosis: Bilateral primary osteoarthritis of knee[ICD10: M17.0] Diagnosis: Nicotine dependence, unspecified, uncomplicated[ICD10: F17.200] Diagnosis: Mixed hyperlipidemia[ICD10: E78.2] Martita RENTERIA Infer CPT-4: 86658 03/27/2019 ([id number]) OFFICE/OUTPATIENT VISIT EST Diagnosis: Mixed hyperlipidemia[ICD10: E78.2] Diagnosis: Atherosclerotic heart disease of [place] coronary artery without angina pectoris[ICD10: I25.10] Diagnosis: Other intervertebral disc degeneration, 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] Martita MCGOVERN [employer] CPT-4: 99177 12/25/2018 ([id number]) OFFICE/OUTPATIENT VISIT EST Diagnosis: Mixed hyperlipidemia[ICD10: E78.2] Diagnosis: Other fatigue[ICD10: R53.83] Diagnosis: Encounter for screening for malignant neoplasm of prostate[ICD10: Z12.5] Diagnosis: Primary osteoarthritis, 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] Diagnosis: Pain in thoracic spine[ICD10: M54.6] Martita FISCHER Sofia AGUIRRENDLRN CPT-4: 62210 06/19/2018 ([id number]) OFFICE/OUTPATIENT VISIT EST Diagnosis: Encounter for therapeutic drug level monitoring[ICD10: Z51.81] Diagnosis: Pain in 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: M25.531] Diagnosis: Pain in right knee[ICD10: M25.561] Diagnosis: Pain in left knee[ICD10: M25.562] Marian Resendizalvarado Lam [employer] CPT-4: 35034 03/02/2018 ([id number]) OFFICE/OUTPATIENT VISIT EST Diagnosis: Mixed hyperlipidemia[ICD10: E78.2] Martita RENTERIA [employer] CPT-4: 30291 08/01/2017 ([id number]) OFFICE/OUTPATIENT VISIT EST Diagnosis: Other spondylosis with radiculopathy, cervical region[ICD10: M47.22] Diagnosis: Pain in 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: M25.531] Diagnosis: Mixed hyperlipidemia[ICD10: E78.2] Diagnosis: 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 CPT-4: 30732 01/04/2017 ([id number]) OFFICE/OUTPATIENT VISIT EST Diagnosis: Mixed hyperlipidemia[ICD10: E78.2] Diagnosis: Encounter for general adult medical examination with abnormal findings[ICD10: Z00.01] Martita SIMONS DO [employer] CPT-4: 06031 09/09/2016 ([id number]) PREV VISIT EST AGE 40-64 Diagnosis: Mixed hyperlipidemia[ICD10: E78.2] Diagnosis: Nicotine dependence, unspecified, uncomplicated[ICD10: F17.200] Diagnosis: Chronic obstructive pulmonary disease with acute lower respiratory infection[ICD10: J44.0] Diagnosis: Bilateral primary osteoarthritis of knee[ICD10: M17.0] Diagnosis: Pain in thoracic spine[ICD10: M54.6] Diagnosis: Pain in 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: M25.531] Diagnosis: Encounter for general adult medical examination with abnormal findings[ICD10: Z00.01] Martita SIMONS [employer] CPT-4: 23053 09/07/2016 ([id number]) OFFICE/OUTPATIENT VISIT EST Diagnosis: Mixed hyperlipidemia[ICD10: E78.2] Martita SIMONS [employer] CPT-4: 48108 09/15/2015 ([id number]) OFFICE/OUTPATIENT VISIT EST Diagnosis: Acute bronchitis, unspecified[ICD10: J20.9] Diagnosis: Chronic obstructive pulmonary disease with acute lower respiratory infection[ICD10: J44.0] Diagnosis: Lumbago with sciatica, right side[ICD10: M54.41] Martita SIMONS [employer] CPT-4: 14898 08/31/2015 ([id number]) OFFICE/OUTPATIENT VISIT EST Diagnosis: HYPERLIPIDEMIA NEC/NOS[ICD9: 272.4] Diagnosis: TOBACCO USE DISORDER[ICD9: 305.1] Diagnosis: Osteoarthritis, knee[ICD9: 715.96] Diagnosis: Chronic back pain[ICD9: 724.5] Martita SIMONS [employer] CPT-4: 22632 04/14/2015 ([id number]) OFFICE/OUTPATIENT VISIT EST Diagnosis: HYPERLIPIDEMIA NEC/NOS[ICD9: 272.4] Diagnosis: COPD[ICD9: 496] Diagnosis: ROUTINE MEDICAL EXAM[ICD9: V70.0] Martita SIMONS DO [facility] CPT-4: 24765 11/10/2014 ([id number]) OFFICE/OUTPATIENT VISIT EST Diagnosis: Wrist pain[ICD9: 719.43] Diagnosis: Knee osteoarthritis[ICD9: 715.96] Diagnosis: Chronic back pain[ICD9: 724.5] Martita SIMONS DO [facility] CPT-4: 65394 10/07/2014 ([id number]) OFFICE/OUTPATIENT VISIT EST Diagnosis: HYPERLIPIDEMIA NEC/NOS[ICD9: 272.4] Diagnosis: Chronic back pain[ICD9: 724.5] Diagnosis: OSTEOARTH NOS-L/LEG[ICD9: 715.96] Martita SIMONS DO [employer] CPT-4: 50582 05/01/2014 ([id number]) OFFICE/OUTPATIENT VISIT EST Diagnosis: HYPERLIPIDEMIA NEC/NOS[ICD9: 272.4] Martita SIMONS DO [employer] CPT-4: 50935 04/29/2014 ([id number]) OFFICE/OUTPATIENT VISIT EST Diagnosis: ROUTINE MEDICAL EXAM[ICD9: V70.0] Diagnosis: HYPERLIPIDEMIA NEC/NOS[ICD9: 272.4] Martita SIMONS DO [employer] CPT-4: 93061 12/18/2013 OFFICE/OUTPATIENT VISIT EST Diagnosis: HYPERLIPIDEMIA NEC/NOS[ICD9: 272.4] Diagnosis: COPD[ICD9: 496] Diagnosis: Knee pain[ICD9: 719.46] Diagnosis: Wrist pain[ICD9: 719.43] Martita LAMAR [facility] CPT-4: 38672 12/17/2013 OFFICE/OUTPATIENT VISIT EST Diagnosis: COPD W/ ACUTE EXACERB[ICD9: 491.21] Diagnosis: COUGH[ICD9: 786.2] Martita SIMONS DO [employer] CPT-4: 09204 12/11/2012 ([id number]) OFFICE/OUTPATIENT VISIT EST Diagnosis: BRONCHITIS, ACUTE[ICD9: 466.0] Diagnosis: COPD exacerbation[ICD9: 491.21] Martita FERRARALINE Sofia SIMONS [employer] CPT-4: 26579 12/04/2012 ([id number]) OFFICE/OUTPATIENT VISIT EST Diagnosis: DERMATITIS NOS[ICD9: 692.9] Diagnosis: TOBACCO USE DISORDER[ICD9: 305.1] Martita Lam Sofia AGUIRRENDJOELLEN [employer] CPT-4: 76705 08/14/2012 ([id number]) OFFICE/OUTPATIENT VISIT EST Diagnosis: TOBACCO USE DISORDER[ICD9: 305.1] Diagnosis: PAIN, LOWER BACK[ICD9: 724.2] Diagnosis: PAIN IN THORACIC SPINE[ICD9: 724.1] Diagnosis: DERMATITIS NOS[ICD9: 692.9] Diagnosis: HYPERLIPIDEMIA NEC/NOS[ICD9: 272.4] Martita José Migu[employer]elix MOROCHO S. JOSÉ MIGUELNDJOELLEN [employer] CPT-4: 86575 07/17/2012 ([id number]) OFFICE/OUTPATIENT VISIT EST Diagnosis: HYPERLIPIDEMIA NEC/NOS[ICD9: 272.4] Diagnosis: OSTEOARTH NOS-L/LEG[ICD9: 715.96] Diagnosis: JOINT PAIN-L/LEG[ICD9: 719.46] Diagnosis: AC EMBL SUPRFCL UP EXT[ICD9: 453.81] Martita FISCHER SSohail SIMONS [employer] CPT-4: 10282 03/20/2012 ([id number]) OFFICE/OUTPATIENT VISIT EST Diagnosis: PAIN, LOWER BACK[ICD9: 724.2] Diagnosis: Superficial venous thrombosis of arm[ICD9: 453.81] Diagnosis: Trigger finger, left[ICD9: 727.03] Martita RENTERIA SSohail SIMONS [employer] CPT-4: 68934 12/08/2011 OFFICE/OUTPATIENT VISIT EST Diagnosis: Knee pain[ICD9: 719.46] Diagnosis: Knee osteoarthritis[ICD9: 715.96] Diagnosis: Thoracic back pain[ICD9: 724.1] Diagnosis: HYPERLIPIDEMIA NEC/NOS[ICD9: 272.4] Martita MOROCHO S. JOSÉ MIGUELNDJOELLEN [employer] CPT-4: 96709 08/11/2011 ([id number]) OFFICE/OUTPATIENT VISIT, VIANEY SIMONS DO [facility] CPT-4: 74038 05/26/2010 Plan of Care Planned Activity Notes Codes Status Date Visit Diagnosis Plan: COPD (chronic obstructive pulmon jenn disease) Discussion: Smoking Cessation ICD-9 : 496 ICD-10 : J44.9 10/07/2019 Visit Diagnosis Plan: Mixed hyperlipidemia Discussion: Lipids next month with cardiology fwup Follow Up: 3 months ICD-9 : 272.4 ICD-10 : E78.2 10/07/2019 Appointment: Martita Simons WPtel: [address] [place], [place] [phone] [place] MEDICATION REVIEW 10/07/2019 Visit Diagnosis Plan: Other intervertebral disc degene ration, lumbar region Discussion: Stable on hydrocodone Add Vitamin D3 2000u daily Follow Up: 3 months ICD-9 : 722.52 ICD-10 : M51.36 07/01/2019 Visit Diagnosis Plan: Cephalgia Discussion: Discussed CT angiogram to rule out aneurysm but patient defers due to cost ICD-9 : 784.0 ICD-10 : R51 07/01/2019 Appointment: Martita Simons WPtel: [address] [place], [place] [phone] MEDICATION REVIEW 07/01/2019 Visit Diagnosis Plan: Atherosclerotic he art disease of [place] coronary artery without angina pectoris Discussion: Discussed [...] 272.4 ICD-10 : E78.2 03/27/2019 Appointment: Martita Simons WPtel: [address] [place], [place] [phone] [place] MEDICATION REVIEW 03/27/2019 Visit Diagnosis Plan: Other intervertebral disc degene ration, lumbar region Discussion: Stable on hydrocodone UDS done Follow Up: 3 months ICD-9 : 722.52 ICD-10 : M51.36 12/25/2018 Visit Diagnosis Plan: Atherosclerotic he art disease of [place] coronary artery without angina pectoris Discussion: Smoking Cessation Continue c urrent meds and fwup with cardiology ICD-9 : 414.00 ICD-10 : I25.10 12/25/2018 Appointment: Martita Simons WPtel: [address] [place], [place] [phone] MEDICATION REVIEW 12/25/2018 Appointment: Martita Simons WPtel: [address] [place], [place] [id number] OFFICE SURGERY 08/22/2018 Visit Diagnosis Plan: Pain [...] : M19.031 06/19/2018 Appointment: Martita Simons WPtel: [address] [place], [place] [phone] MEDICATION REVIEW 06/19/2018 Appointment: Martita Simons WPtel: [address] [place], [place] [id number] [place] CANCELED 06/05/2018 Appointment: Martita Simons WPtel: [address] [place], [place] [phone] [place] CANCELED 05/08/2018 Visit Diagnosis Plan: Pain [...] ICD-10 : M25.561 03/02/2018 Appointment: Marian Juares [address] [place] [address] MEDICATION REVIEW 03/02/2018 Patient Education: Patient Medication Summary Completed 03/02/2018 Appointment: Martita Simons WPtel: [address] [place] [address] UA 02/01/2018 Patient Education: Patient Medication Summary Completed 02/01/2018 Visit Diagnosis Plan: Other synovitis and tenosynoviti s, right hand Discussion: Right wrist cleansed with alcohol and betadine and injected laterally with 1cc 1% lidocaine with 20mg kenalog and 2mg dexamethasone, tolerated well with no complications, neosporin and bandage applied ICD-9 : 727.05 ICD-10 : M65.841 08/31/2017 Appointment: Martita Simons WPtel: [address] [place], [place] [phone] ACUTE ILLNESS 08/31/2017 Patient Education: Patient Medication Summary Completed 08/31/2017 Appointment: Martita Simons WPtel: [address] [place], [place] [phone] 08/01/2017 Patient Education: Patient Medication Summary [...] : M47.22 07/18/2017 Appointment: Martita Simons WPtel: [address] [place], [place] [phone] MEDICATION REVIEW 07/18/2017 Patient Education: Patient Medication Summary Completed 07/18/2017 Visit Diagnosis Plan: Cervicalgia Discussion: Continue PT then fwup after done with PT ICD-9 : 723.1 ICD-10 : M54.2 04/24/2017 Visit Diagnosis Plan: Other intervertebral disc degene ration, lumbar region Discussion: Add PT For lumbar spine ICD-9 : 722.52 ICD-10 : M51.36 04/24/2017 Appointment: Martita Simons WPtel: [address] [place], [place] [phone] [place] MEDICATION REVIEW 04/24/2017 Patient Education: Patient Medication Summary Completed 04/24/2017 Patient Education: Patient Medication Summary Completed 03/22/2017 Care Plan: MRI NECK SPINE W/O DYE [facility] : 76118-5 Pending 03/22/2017 Visit Diagnosis Plan: Mixed hyperlipidemia [...] : M51.36 01/04/2017 Appointment: Martita Simons WPtel: [facility] [place] 01/03 lm`sl 01/03-Confirmed MEDICATION REVIEW 01/04/2017 Patient Education: Patient Medication Summary Completed 01/04/2017 Visit Diagnosis Plan: Other enthesopathies, not elsewh ere classified Discussion: Right wrist injection as above ICD-9 : 727.05 ICD-10 : M77.8 09/12/2016 Visit Diagnosis Plan: Mixed hyperlipidemia Discussion: Lab discussed Restart lipitor/lifestyle change ICD-9 : 272.4 ICD-10 : E78.2 09/12/2016 Appointment: Martita Simons WPtel: [phone] [facility] [place] 09/12 confirmed `sl INJECTION 09/12/2016 Patient Education: Patient Medication Summary Completed 09/12/2016 Appointment: Martita Simons WPtel: [phone] [facility] LAB 09/09/2016 Patient Education: Patient Medication Summary Completed 09/09/2016 Visit Diagnosis Plan: Nicotine dependence, unspecified , uncomplicated Discussion: Tobacco Abuse ICD-9 : 305.1 ICD-10 : F17.200 09/07/2016 Visit Diagnosis Plan: Chronic obstructiv e pulmonary disease with acute lower respiratory infection Discussion: Smoking Cessation Symbicort Check CXR ICD-9 : 496 ICD-10 : J44.0 09/07/2016 Visit Diagnosis Plan: Encounter for [facility] adult medical examination with abnormal findings Discussion: Update fasting lab Follow Up: 4 months ICD-9 : V70.0 ICD-10 : Z00.01 09/07/2016 Visit Diagnosis Plan: Mixed hyperlipidemia Discussion: Check CMP, Lipids ICD-9 : 272.4 ICD-10 : E78.2 09/07/2016 Visit Diagnosis Plan: Pain in right wrist Discussion: Will return for wrist injection ICD-9 : 719.43 ICD-10 : M25.531 09/07/2016 Appointment: Martita Simons WPtel: [phone] [facility] [place] 09/06 confirmed~sl Annual Well Visit 09/07/2016 Patient Education: Patient Medication Summary Completed 09/07/2016 Care Plan: CHEST X-RAY 2VW FRONTAL&LATL LOINC : 25794-0 Pending 09/07/2016 Visit Plan: Filled out Jeanine peña Insurance Paperwork 08/05/2016 Patient Education: Patient Medication Summary Completed 08/05/2016 Appointment: Martita Simons WPtel: [address] [place], [place] [phone] UA 04/25/2016 Patient Education: Patient Medication Summary Completed 04/25/2016 Appointment: Martita Simons WPtel: [address] [place], [place] [phone] [place] LAB 09/15/2015 Patient Education: Patient Medication Summary Completed 09/15/2015 Visit Plan: SVN with Albuterol 0.083% Q4 hrs and Q2hrs prn. Supportive care. Rest, Fluids, Tylenol/Motrin prn fever or bodyaches. Notify if worsening symptoms. Daily back stretches, moist heat, Biofreeze prn Flexeril/Prednisone Notify if low back pain persists--will need x-rays Patient seeing Chiropracter [employer] 08/31/2015 Appointment: Martita Simons WPtel: [address] [place], [place] [phone] 08/28/15 cn 08/28/15 appt confirmed cn FOLLOW UP 08/31/2015 Patient Education: Patient Medication Summary Completed 08/31/2015 Appointment: Martita Simons WPtel: [address] [place], [place] [phone] UA 07/29/2015 Visit Plan: CMP, Lipids today Patient st opped chol meds 1week ago Continue hydrocodone 04/14/2015 Appointment: Martita Simons WPtel: [address] [place], [place] [phone] [place] FOLLOW UP 04/14/2015 Patient Education: Patient Medication Summary Completed 04/14/2015 Appointment: Martita Simons WPtel: [address] [place], [place] [phone] [place] LAB 11/10/2014 Patient Education: Patient Medication Summary Completed 11/10/2014 Visit Plan: Fasting lab at end of September for Lipids/LFTs Continue hydrocodone at current dose Needs to be on low dose asprin 81mg daily With upcoming trip need to stop every 2hours and get out and stretch 10/07/2014 Appointment: Martita Simonstel: [address] [place], [place] [phone] FOLLOW UP 10/07/2014 Patient Education: Patient Medication Summary Completed 10/07/2014 Visit Plan: Lab discussed Will keep meds the same Keep hydrocodone at current dose--discussed schedule change on May 05 05/01/2014 Appointment: Martita Simonstel: [address] [place], [place] [phone] 04/29 confirmed when in for labs; asked if he still wanted a reminder call on Monday and he said no he would be here. FOLLOW UP 05/01/2014 Patient Education: Patient Medication Summary Completed 05/01/2014 Appointment: Martita Simons WPtel: [address] [place], [place] [phone] [place] LAB 04/29/2014 Patient Education: Patient Medication Summary Completed 04/29/2014 Appointment: Martita Simonstel: [address] [place], [place] [phone] LAB 12/18/2013 Patient Education: Patient Medication Summary Completed 12/18/2013 Appointment: Martita Simonstel: [address] [place], [place] [phone] 12/16 FOLLOW UP 12/17/2013 Patient Education: Patient Medication Summary Completed 12/17/2013 Visit Plan: Check CXR Start SVNs with al buterol 0.083% QID 12/11/2012 Appointment: Martita Simonstel: [address] [place], [place] [phone] FOLLOW UP 12/11/2012 Patient Education: Patient Medication Summary Completed 12/11/2012 Visit Plan: Zithromax for 1wk Prednisone for 1wk Symbicort 160/4.5 2p BID 12/04/2012 Appointment: Martita Simons WPtel: [address] [place], [place] [phone] ACUTE ILLNESS 12/04/2012 Patient Education: Patient Medication Summary Completed 12/04/2012 Visit Plan: Continue nystatin/TAC cream and add Lamisil for next month No lipitor for next month If rash persists then will need biopsy Trial of chantix--warned of suicidal ideation/depression Call in 1mo on finger lesion and chantix 08/14/2012 Appointment: Martita Simons WPtel: [address] [place], [place] [phone] 08/13 no answer...08/13 pt called back and confirmed OFFICE SURGERY 08/14/2012 Patient Education: Patient Medication Summary Completed 08/14/2012 Appointment: Martita Simons WPtel: [address] [place], [place] [phone] FOLLOW UP 07/17/2012 Patient Education: Patient Medication Summary Completed 07/17/2012 Appointment: Martita Simons WPtel: [address] [place] [phone] Appointment was confirmed by CN on 06/29 12/ pt called, in family, was in [place] just got yash k / - [facility] ACUTE ILLNESS 07/02/2012 Visit Plan: Obtain US results of RUE EDWIN coumadin as has been 3mos and start Aspirin 325mg daily Check CMP, Lipids, CBC, ESR, CRP today 03/20/2012 Appointment: Martita Simons WPtel: [facility] FOLLOW UP 03/20/2012 Patient Education: Patient Medication Summary Completed 03/20/2012 Appointment: Martita Simons WPtel: [facility] [place] Patient called 2 hours past appt. Said saw a specialist today and specialist is not concerned about blod clot so doesnt want to reschedule-CN FOLLOW UP 12/14/2011 Appointment: Martita Simons WPtel: [address] [place] [address] FOLLOW UP 12/13/2011 Visit Plan: Continue coumadin--IM is fol lowing level--discussed will likely need 6-12wks Observe contusion to right lower back Fwup with ortho as scheduled 12/08/2011 Appointment: Martita Simons WPtel: [address] [place] [address] ACUTE ILLNESS 12/08/2011 Patient Education: Patient Medication Summary Completed 12/08/2011 Visit Plan: Check fasting lab when goes for pre-op lab including CMP, CBC, Lipids, TSH, Free T4, PSA, uric acid Needs colonoscopy Hydrocodone refilled #80 to [facility] 08/11/2011 Appointment: Martita Simons WPtel: [address] [place] [address] ESTABLISHED PATIENT 08/11/2011 Patient Education: Patient Medication Summary Completed 08/11/2011 Visit Plan: Obtain most recent lab resul ts Cont current meds Explained that cannot refill pain meds without current rx Discussed Synvisc injections and see ortho as oxycontin for knee arthritis is strong pain med 05/26/2010 Appointment: Martita Simons WPtel: [address] [place], [place] [phone] NEW PATIENT 05/26/2010 Patient Education: Patient Medication Summary Completed 05/26/2010 Instructions Comment . [facility] SVN with Albuterol 0.083% Q4hrs [...] and chantix . Obtain US results of KELVIN PINEDA coumadin as has been 3mos and start [...] Needs colonoscopy Hydrocodone refilled #80 to [facility] . Obtain most recent lab results Cont [...]
--- OUTSIDE RECORDS SUMMARY | 2020-01-12 17:38 | XMS REPORT | CCD ---
Author Author Syd Simons D.O. 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 Role Phone Martita Simons D.O., PP Unavailable CCM Unavailable Summary Purpose Interface Exchange Insurance Providers Payer name Policy type / Coverage type Covered libertarian ID Effective Begin Date Effective End Date [facility] Commercial Insurance [id number] Unknown Family history Brother Diagnosis Age At Onset No Family Disease Entered N/A Father Diagnosis Age At Onset No Family Disease Entered N/A Mother Diagnosis Age At Onset No Family Disease Entered N/A Social History Social History Element Codes Description Effective Dates Tobacco history SNOMED CT: 81213342 Current every day smoker 06/2012 Number of [...] Start Date Stop Date Status Fill Instructions metoprolol succinate ER 25 mg tablet,extended release 24 hr RxNorm: 434600 1 Tablet(s) Oral QD 10/28/2019 10/28/2019 Inactive hydrocodone 10 mg-acetaminophen 325 mg tablet RxNorm: 603385 1 Tablet(s) PO Q6H as needed for pain 10/24/2019 No Stop Date Active (Response to an electronic controlled substance refill request - RxReferenceNumber: [id number]|1|0|1) hydrocodone 10 mg-acetaminophen 325 mg tablet RxNorm: 096579 1 Tablet(s) PO Q6H as needed for pain 09/26/2019 10/23/2019 Inactive (Response to an electronic controlled substance refill request - RxReferenceNumber: [id number]|1|0|1) hydrocodone 10 mg-acetaminophen 325 mg tablet RxNorm: 632299 1 Tablet(s) PO Q6H as needed for pain 08/26/2019 09/25/2019 Inactive (Response to an electronic controlled substance refill request - RxReferenceNumber: [id number]|1|0|1) hydrocodone 10 mg-acetaminophen 325 mg tablet RxNorm: 052375 1 Tablet(s) PO Q6H as needed for pain 07/25/2019 08/25/2019 Inactive (Response to an electronic controlled substance refill request - RxReferenceNumber: [id number]|1|0|1) hydrocodone 10 mg-acetaminophen 325 mg tablet RxNorm: 007160 1 Tablet(s) PO Q6H as needed for pain 06/26/2019 07/24/2019 Inactive (Response to an electronic controlled substance refill request - RxReferenceNumber: [id number]|1|0|1) hydrocodone 10 mg-acetaminophen 325 mg tablet RxNorm: 053137 1 Tablet(s) PO Q6H as needed for pain 05/28/2019 06/25/2019 Inactive (Response to an electronic controlled substance refill request - RxReferenceNumber: [id number]|1|0|1) hydrocodone 10 mg-acetaminophen 325 mg tablet RxNorm: 248384 1 Tablet(s) PO Q6H as needed for pain 02/25/2019 05/27/2019 Inactive (Response to an electronic controlled substance refill request - RxReferenceNumber: [id number]|1|0|1) hydrocodone 10 mg-acetaminophen 325 mg tablet RxNorm: 760430 1 Tablet(s) PO Q6H as needed for pain 11/26/2018 02/24/2019 Inactive (Response to an electronic controlled substance refill request - RxReferenceNumber: [id number]|1|0|1) hydrocodone 10 mg-acetaminophen 325 mg tablet RxNorm: 839831 1 Tablet(s) PO Q6H as needed for pain 10/30/2018 11/25/2018 Inactive (Response to an electronic controlled substance refill request - RxReferenceNumber: [id number]|1|0|1) hydrocodone 10 mg-acetaminophen 325 mg tablet RxNorm: 900193 1 Tablet(s) PO Q6H as needed for pain 09/26/2018 10/29/2018 Inactive (Response to an electronic controlled substance refill request - RxReferenceNumber: [id number]|1|0|1) hydrocodone 10 mg-acetaminophen 325 mg tablet RxNorm: 327571 1 Tablet(s) PO Q6H as needed for pain 08/30/2018 09/25/2018 Inactive (Response to an electronic controlled substance refill request - RxReferenceNumber: [id number]|1|0|1) hydrocodone 10 mg-acetaminophen 325 mg tablet RxNorm: 316859 1 Tablet(s) PO Q6H as needed for pain 08/01/2018 08/29/2018 Inactive (Response to an electronic controlled substance refill request - RxReferenceNumber: [id number]|1|0|1) hydrocodone 10 mg-acetaminophen 325 mg tablet RxNorm: 369980 1 Tablet(s) PO Q6H as needed for pain 07/04/2018 07/31/2018 Inactive (Response to an electronic controlled substance refill request - RxReferenceNumber: [id number]|1|0|1) hydrocodone 10 mg-acetaminophen 325 mg tablet RxNorm: 015154 1 Tablet(s) PO Q6H as needed for pain 05/31/2018 07/03/2018 Inactive (Response to an electronic controlled substance refill request - RxReferenceNumber: [id number]|1|0|1) hydrocodone 10 mg-acetaminophen 325 mg tablet RxNorm: 368752 1 Tablet(s) PO Q6H as needed for pain 05/01/2018 05/30/2018 Inactive (Response to an electronic controlled substance refill request - RxReferenceNumber: [id number]|1|0|1) hydrocodone 10 mg-acetaminophen 325 mg tablet RxNorm: 210635 1 Tablet(s) PO Q6H as needed for pain 04/03/2018 04/30/2018 Inactive (Response to an electronic controlled substance refill request - RxReferenceNumber: [id number]|1|0|1) hydrocodone 10 mg-acetaminophen 325 mg tablet RxNorm: 232214 1 Tablet(s) PO Q6H as needed for pain 02/26/2018 04/02/2018 Inactive (Response to an electronic controlled substance refill request - RxReferenceNumber: [id number]|1|0|1) clotrimazole-betamethasone 1 %-0.05 % topical cream RxNorm: 969874 TOP As Directed CALL IF NO IMPROVEMENT IN 2 WEEKS 01/30/2018 01/29/2018 Inact kole [SAVINGS FOR UNINSURED PATIENTS -- BIN:[id number], PCN: [id number], Group: [facility], ID# [id number], Process claim through [employer], for questions: . THIS IS NOT INSURANCE.] hydrocodone 10 mg-acetaminophen 325 mg tablet RxNorm: 524144 1 Tablet(s) PO Q6H as needed for pain 01/29/2018 02/25/2018 Inactive (Response to an electronic controlled substance refill request - RxReferenceNumber: [id number]|1|0|1) hydrocodone 10 mg-acetaminophen 325 mg tablet RxNorm: 616176 1 Tablet(s) PO Q6H as needed for pain 12/28/2017 01/28/2018 Inactive (Response to an electronic controlled substance refill request - RxReferenceNumber: [id number]|1|0|1) hydrocodone 10 mg-acetaminophen 325 mg tablet RxNorm: 085936 1 Tablet(s) PO Q6H as needed for pain 11/29/2017 12/27/2017 Inactive (Response to an electronic controlled substance refill request - RxReferenceNumber: [id number]|1|0|1) hydrocodone 10 mg-acetaminophen 325 mg tablet RxNorm: 996433 1 Tablet(s) PO Q6H as needed for pain 11/02/2017 11/28/2017 Inactive (Response to an electronic controlled substance refill request - RxReferenceNumber: [id number]|1|0|1) hydrocodone 10 mg-acetaminophen 325 mg tablet RxNorm: 464047 1 Tablet(s) PO Q6H as needed for pain 10/02/2017 11/01/2017 Inactive (Response to an electronic controlled substance refill request - RxReferenceNumber: [id number]|1|0|1) hydrocodone 10 mg-acetaminophen 325 mg tablet RxNorm: 728051 1 Tablet(s) PO Q6H as needed for pain 08/30/2017 10/01/2017 Inactive (Response to an electronic controlled substance refill request - RxReferenceNumber: [id number]|1|0|1) hydrocodone 10 mg-acetaminophen 325 mg tablet RxNorm: 695525 1 Tablet(s) PO Q6H as needed for pain 08/01/2017 08/29/2017 Inactive (Response to an electronic controlled substance refill request - RxReferenceNumber: [id number]|1|0|1) hydrocodone 10 mg-acetaminophen 325 mg tablet RxNorm: 284305 1 Tablet(s) PO Q6H as needed for pain 06/26/2017 07/31/2017 Inactive (Response to an electronic controlled substance refill request - RxReferenceNumber: [id number]|1|0|1) hydrocodone 10 mg-acetaminophen 325 mg tablet RxNorm: 009983 1 Tablet(s) PO Q6H as needed for pain 06/26/2017 06/30/2019 Inactive (Response to an electronic controlled substance refill request - RxReferenceNumber: [id number]|1|0|1) hydrocodone 10 mg-acetaminophen 325 mg tablet RxNorm: 978190 1 Tablet(s) PO Q6H as needed for pain 03/27/2017 06/25/2017 Inactive (Response to an electronic controlled substance refill request - RxReferenceNumber: [id number]|1|0|1) hydrocodone 10 mg-acetaminophen 325 mg tablet RxNorm: 202416 1 Tablet(s) PO Q6H as needed for pain 02/23/2017 03/26/2017 Inactive (Response to an electronic controlled substance refill request - RxReferenceNumber: [id number]|1|0|1) hydrocodone 10 mg-acetaminophen 325 mg tablet RxNorm: 069386 1 Tablet(s) PO Q6H as needed for pain 01/24/2017 02/22/2017 Inactive (Response to an electronic controlled substance refill request - RxReferenceNumber: [id number]|1|0|1) hydrocodone 10 mg-acetaminophen 325 mg tablet RxNorm: 191122 1 Tablet(s) PO Q6H as needed for pain 12/27/2016 06/30/2019 Inactive (Response to an electronic controlled substance refill request - RxReferenceNumber: [id number]|1|0|1) hydrocodone 10 mg-acetaminophen 325 mg tablet RxNorm: 983097 1 Tablet(s) PO Q6H as needed for pain 12/27/2016 01/23/2017 Inactive (Response to an electronic controlled substance refill request - RxReferenceNumber: [id number]|1|0|1) hydrocodone 10 mg-acetaminophen 325 mg tablet RxNorm: 992740 1 Tablet(s) PO Q6H as needed for pain 11/23/2016 12/26/2016 Inactive (Response to an electronic controlled substance refill request - RxReferenceNumber: [id number]|1|0|1) hydrocodone 10 mg-acetaminophen 325 mg tablet RxNorm: 130892 1 Tablet(s) PO Q6H as needed for pain 10/20/2016 11/22/2016 Inactive (Response to an electronic controlled substance refill request - RxReferenceNumber: [id number]|1|0|1) hydrocodone 10 mg-acetaminophen 325 mg tablet RxNorm: 740819 1 Tablet(s) PO Q6H as needed for pain 09/26/2016 10/19/2016 Inactive (Response to an electronic controlled substance refill request - RxReferenceNumber: [id number]|1|0|1) hydrocodone 10 mg-acetaminophen 325 mg tablet RxNorm: 810514 1 Tablet(s) PO Q6H as needed for pain 07/27/2016 09/25/2016 Inactive (Response to an electronic controlled substance refill request - RxReferenceNumber: [id number]|1|0|1) hydrocodone 10 mg-acetaminophen 325 mg tablet RxNorm: 500729 1 Tablet(s) PO Q6H as needed for pain 05/04/2016 07/26/2016 Inactive (Response to an electronic controlled substance refill request - RxReferenceNumber: [id number]|1|0|1) hydrocodone 10 mg-acetaminophen 325 mg tablet RxNorm: 004439 1 Tablet(s) PO Q6H as needed for pain 03/31/2016 05/03/2016 Inactive (Response to an electronic controlled substance refill request - RxReferenceNumber: [id number]|1|0|1) citalopram 10 mg tablet RxNorm: 455506 1 Tablet(s) PO QD 09/28/2015 0 09/27/2015 Inactive citalopram 10 mg tablet RxNorm: 671509 1 Tablet(s) PO QD 09/28/2015 0 09/06/2016 Inactive Wellbutrin SR 150 mg tablet,sustained-release RxNorm: 543936 1 Tablet(s) PO QAM 09/25/2015 09/06/2016 Inactive prednisone 20 mg tablet RxNorm: 078046 1 Tablet(s) PO T ID for 3 days then 1 po BID for 3 days then one daily for 3 days 08/31/2015 09/06/2016 Inactiv e cyclobenzaprine 10 mg tablet RxNorm: 785165 1 Tablet(s) PO TID as needed for muscle spasm 08/31/2015 07/17/2017 Inactive hydrocodone 10 mg-acetaminophen 325 mg tablet RxNorm: 327364 1 Tablet(s) PO Q6H as needed for pain 08/26/2015 03/30/2016 Inactive (Response to an electronic controlled substance refill request - RxReferenceNumber: [id number]|1|0|1) hydrocodone 10 mg-acetaminophen 325 mg tablet RxNorm: 325204 1 Tablet(s) PO Q6H as needed for pain 07/28/2015 08/25/2015 Inactive (Response to an electronic controlled substance refill request - RxReferenceNumber: [id number]|1|0|1) hydrocodone 10 mg-acetaminophen 325 mg tablet RxNorm: 703016 1 Tablet(s) PO Q6H as needed for pain 06/23/2015 07/27/2015 Inactive (Response to an electronic controlled substance refill request - RxReferenceNumber: [id number]|1|0|1) hydrocodone 10 mg-acetaminophen 325 mg tablet RxNorm: 705186 1 Tablet(s) PO Q6H as needed for pain 05/21/2015 06/22/2015 Inactive (Response to an electronic controlled substance refill request - RxReferenceNumber: [id number]|1|0|1) azithromycin 250 mg tablet RxNorm: 987316 2 Tablet(s) P O on day one, then one tablet on days 2 - 5 04/27/2015 08/30/2015 Inactive hydrocodone 10 mg-acetaminophen 325 mg tablet RxNorm: 613716 1 Tablet(s) PO Q6H as needed for pain 03/25/2015 05/20/2015 Inactive (Response to an electronic controlled substance refill request - RxReferenceNumber: [id number]|1|0|1) hydrocodone 10 mg-acetaminophen 325 mg tablet RxNorm: 136797 1 Tablet(s) PO Q6H as needed for pain 02/24/2015 03/24/2015 Inactive (Response to an electronic controlled substance refill request - RxReferenceNumber: [id number]|1|0|1) hydrocodone 10 mg-acetaminophen 325 mg tablet RxNorm: 997928 1 Tablet(s) PO Q6H as needed for pain 01/23/2015 02/23/2015 Inactive (Response to an electronic controlled substance refill request - RxReferenceNumber: [id number]|1|0|1) hydrocodone 10 mg-acetaminophen 325 mg tablet RxNorm: 164858 1 Tablet(s) PO Q6H as needed for pain 12/23/2014 01/22/2015 Inactive (Response to an electronic controlled substance refill request - RxReferenceNumber: [id number]|1|0|1) hydrocodone 10 mg-acetaminophen 325 mg tablet RxNorm: 170088 1 Tablet(s) PO Q6H as needed for pain 11/24/2014 12/22/2014 Inactive (Response to an electronic controlled substance refill request - RxReferenceNumber: [id number]|1|0|1) hydrocodone 10 mg-acetaminophen 325 mg tablet RxNorm: 146228 1 Tablet(s) PO Q6H as needed for pain 10/28/2014 11/23/2014 Inactive (Response to an electronic controlled substance refill request - RxReferenceNumber: [id number]|1|0|1) hydrocodone 10 mg-acetaminophen 325 mg tablet RxNorm: 036440 1 Tablet(s) PO Q6H as needed for pain 09/25/2014 10/27/2014 Inactive (Response to an electronic controlled substance refill request - RxReferenceNumber: [id number]|1|0|1) Lipitor 80 mg tablet RxNorm: 075767 1 Tablet(s) PO QHS 09/24/2014 Inactive hydrocodone 10 mg-acetaminophen 325 mg tablet RxNorm: 694812 1 Tablet(s) PO Q6H as needed for pain 07/30/2014 09/24/2014 Inactive (Response to an electronic controlled substance refill request - RxReferenceNumber: [id number]|1|0|1) hydrocodone 10 mg-acetaminophen 325 mg tablet RxNorm: 201179 1 Tablet(s) PO Q6H as needed for pain 05/27/2014 07/29/2014 Inactive (Response to an electronic controlled substance refill request - RxReferenceNumber: [id number]|1|0|1) clotrimazole-betamethasone 1 %-0.05 % topical cream RxNorm: 202459 TOP As Directed 05/01/2014 08/30/2015 Inactive [SAVINGS FOR UNI NSURED PATIENTS -- BIN:[id number], PCN: [id number], Group: [id number], ID# [id number], Process claim through [employer], for questions: . THIS IS NOT INSURANCE.] Lipitor 80 mg tablet RxNorm: 768883 1 Tablet(s) PO QHS 04/28/2014 Inactive hydrocodone 10 mg-acetaminophen 325 mg tablet RxNorm: 713959 1 Tablet(s) PO Q6H as needed for pain 04/28/2014 05/26/2014 Inactive (Response to an electronic controlled substance refill request - RxReferenceNumber: [id number]|1|0|1) hydrocodone 10 mg-acetaminophen 325 mg tablet RxNorm: 160009 1 Tablet(s) PO Q6H as needed for pain 03/27/2014 04/27/2014 Inactive (Response to an electronic controlled substance refill request - RxReferenceNumber: [id number]|1|0|1) hydrocodone 10 mg-acetaminophen 325 mg tablet RxNorm: 521215 1 Tablet(s) PO Q6H as needed for pain 12/20/2013 12/20/2013 Inactive (Appended: Co ntrolled substance eRx refill - RxReferenceNumber: [id number]|1|0|1) hydrocodone 10 mg-acetaminophen 325 mg tablet RxNorm: 268550 TAKE 1 TABLET BY MOUTH EVERY 6 HOURS NEEDED FOR PAIN 12/20/2013 01/12/2014 Inactive (Response to an electronic controlled substance refill request - RxReferenceNumber: [id number]|1|0|1) hydrocodone 10 mg-acetaminophen 325 mg tablet RxNorm: 166666 1 Tablet(s) PO Q6H as needed for pain 09/03/2013 12/19/2013 Inactive (Appended: Co ntrolled substance eRx refill - RxReferenceNumber: [id number]|1|0|1) hydrocodone 10 mg-acetaminophen 325 mg tablet RxNorm: 957222 Tablet(s) PO TAKE 1 TABLET BY MOUTH EVERY 6 HOURS NEEDED FOR PAIN 08/08/2013 09/03/2013 Inactive (Appended: Controlled substance eRx refill - RxReferenceNumber: [id number]|1|0|1) hydrocodone 10 mg-acetaminophen 325 mg tablet RxNorm: 220065 Tablet(s) PO TAKE 1 TABLET BY MOUTH EVERY 6 HOURS NEEDED FOR PAIN 07/11/2013 08/07/2013 Inactive (Appended: Controlled substance eRx refill - RxReferenceNumber: [id number]|1|0|1) hydrocodone 10 mg-acetaminophen 325 mg tablet RxNorm: 454578 2 Tablet(s) PO TAKE 1 TABLET BY MOUTH EVERY 6 HOURS NEEDED FOR PAIN 06/12/2013 3 Inactive (Appended: Controlled substance eRx ref ill - RxReferenceNumber: [id number]|1|0|1) hydrocodone 10 mg-acetaminophen 325 mg tablet RxNorm: 095095 2 1 Tablet(s) PO Q6H NEEDED FOR PAIN 05/15/2013 06/12/2013 Inactive (Appended: Co ntrolled substance eRx refill - RxReferenceNumber: [id number]|1|0|1) hydrocodone 10 mg-acetaminophen 325 mg tablet RxNorm: 651779 2 Tablet(s) PO TAKE 1 TO 2 TABLETS BY MOUTH EVERY 6 HOURS NEEDED FOR PAIN 04/18/2013 No Stop Date Active (Appended: Controlled substa nce eRx refill - RxReferenceNumber: [id number]|1|0|1) hydrocodone 10 mg-acetaminophen 325 mg tablet RxNorm: 498934 2 Tablet(s) PO TAKE 1 TO 2 TABLETS BY MOUTH EVERY 6 HOURS NEEDED FOR PAIN 03/19/2013 No Stop Date Active (Appended: Controlled substa nce eRx refill - RxReferenceNumber: [id number]|1|0|1) hydrocodone 10 mg-acetaminophen 325 mg tablet RxNorm: 596720 2 Tablet(s) PO TAKE 1 TO 2 TABLETS BY MOUTH EVERY 6 HOURS NEEDED FOR PAIN 02/06/2013 Inactive (Appended: Controlled substance eRx refi ll - RxReferenceNumber: [id number]|1|0|1) hydrocodone 10 mg-acetaminophen 325 mg tablet RxNorm: 642842 2 Tablet(s) PO TAKE 1 TO 2 TABLETS BY MOUTH EVERY 6 HOURS NEEDED FOR PAIN 01/08/201304/2013 Inactive (Appended: Controlled substance eRx ref ill - RxReferenceNumber: [id number]|1|0|1) Zithromax 250 mg tablet RxNorm: 255198 2 Tablet(s) PO QD 12/04/2012 0 12/10/2012 Inactive prednisone 20 mg tablet RxNorm: 917269 1 Tablet(s) PO BID 12/04/2012 12/10/2012 Inactive atorvastatin 40 mg tablet RxNorm: 476659 1 Tablet(s) PO QD 11/09/19 13 12/17/2013 Inactive hydrocodone 10 mg-acetaminophen 325 mg tablet RxNorm: 367894 2 Tablet(s) PO TAKE 1 TO 2 TABLETS BY MOUTH EVERY 6 HOURS NEEDED FOR PAIN 10/18/201205/2013 Inactive (Appended: Controlled substance eRx ref ill - RxReferenceNumber: [id number]|1|0|1) hydrocodone 10 mg-acetaminophen 325 mg tablet RxNorm: 217703 2 1-2 Tablet(s) PO Q6H as needed for pain 09/06/2012 10/18/2012 Inactive Lamisil 250 mg tablet RxNorm: 833234 1 Tablet(s) PO QD 08/14/2012 Inactive atorvastatin 40 mg tablet RxNorm: 005925 1 Tablet(s) PO QD 08/08/19 13 11/05/2012 Inactive prednisone 20 mg tablet RxNorm: 322568 1 Tablet(s) PO BID 07/17/2012 07/23/2012 Inactive Wellbutrin SR 150 mg tablet,extended release RxNorm: 050519 1 T ablet(s) PO BID 07/17/2012 08/13/2012 Inactive meloxicam 15 mg tablet RxNorm: 425713 1 Tablet(s) PO QD for pain 07/16/2012 Inactive atorvastatin 40 mg tablet RxNorm: 060659 1 Tablet(s) PO QD 06/27/2008/07/2012 Inactive hydrocodone-acetaminophen 10 mg-325 mg tablet RxNorm: 309548 2 1-2 Tablet(s) PO Q6H as needed for pain 05/23/2012 No Stop Date Active hydrocodone-acetaminophen 10 mg-325 mg tablet RxNorm: 389361 2 1-2 Tablet(s) PO Q6H as needed for pain 04/24/2012 No Stop Date Active hydrocodone-acetaminophen 10 mg-325 mg tablet RxNorm: 586540 2 1-2 Tablet(s) PO Q6H as needed for pain 02/08/2012 No Stop Date Active hydrocodone-acetaminophen 10 mg-325 mg Tab RxNorm: 5321903 1-2 Tablet(s) PO Q6H as needed for pain 01/02/2012 No Stop Date Active hydrocodone-acetaminophen 10 mg-325 mg Tab RxNorm: 7152336 1-2 Tablet(s) PO Q6H as needed for pain 11/29/2011 No Stop Date Active hydrocodone-acetaminophen 10 mg-325 mg Tab RxNorm: 3027513 1-2 Tablet(s) PO Q6H as needed for pain 10/24/2011 No Stop Date Active hydrocodone-acetaminophen 10 mg-325 mg Tab RxNorm: 4779924 1-2 Tablet(s) PO Q6H as needed for pain 10/07/2011 No Stop Date Active simvastatin 40 mg Tab RxNorm: 490767 1 Tablet(s) PO QHS 08/11/2011 Inactive clopidogrel 75 mg tablet RxNorm: 513317 1 Tablet(s) PO QD No Start Da te Active Symbicort 160 mcg-4.5 mcg/actuation HFA aerosol inhaler RxNo rm: 9111738 2 INH QD No Start Date Active atorvastatin 40 mg tablet RxNorm: 864767 1 Tablet(s) PO QD No Start D ate Active aspirin 81 mg tablet RxNorm: 245507 1 Tablet(s) PO QD No Start Date Active Vitamin D3 2,000 unit tablet RxNorm: 970754 3 Tablet(s) PO No Start D ate Active lisinopril 5 mg tablet RxNorm: 305024 1 Tablet(s) PO QD No Start Date Active hydrocodone-acetaminophen 10 mg-325 mg Tab RxNorm: 0159204 1-2 Tablet(s) PO Q6H as needed for pain No Start Date 10/06/2011 Inactive Wellbutrin SR 150 mg tablet,sustained-release RxNorm: 447601 1 Tablet(s) PO QAM No Start Date 09/24/2015 Inactive metoprolol succinate ER 25 mg tablet,extended release 24 hr RxNorm: 363218 1 Tablet(s) PO QD No Start Date 10/27/2019 Inactive OxyContin 15 mg 12 hr Tab RxNorm: 5298697 1 Tablet(s) PO BID No Sta rt Date 08/10/2011 Inactive warfarin 5 mg Tab RxNorm: 244882 1 Tablet(s) PO QD No Start Date 03/01 Inactive albuterol sulfate 1.25 mg/3 mL Neb Solution RxNorm: 122588 1 Unit Dose INH prn wheezing, congestion, shortness of breath No Start Date 04/30/2014 Inacti ve azithromycin 250 mg tablet RxNorm: 599244 2 Tablet(s) P O on day one, then one tablet on days 2 - 5 No Start Date 04/26/2015 Inactive warfarin 10 mg Tab RxNorm: 609612 1 Tablet(s) PO QOD No Start Date Inactive Symbicort Inhl RxNorm: Inhalation No Start Date 12/16/2013 Inactive Trilipix 135 mg Cap RxNorm: 044809 1 Capsule(s) PO QD No Start Date 0 12/07/2011 Inactive Chantix Starting Month Box 0.5 mg (11)-1 mg (42) table ts in dose pack RxNorm: 451840 Tablet(s) PO as directed No Start Date 12/03/2012 Inactive clotrimazole-betamethasone 1 %-0.05 % topical cream RxNorm: 901399 TOP As Directed No Start Date 04/30/2014 Inactive nystatin-triamcinolone 100,000 unit/g-0.1 % Topical Cream Rx Norm: 8842741 Application TOP BID for 2-4weeks No Start Date 12/03/2012 Inactive Lovastatin 20 mg Tab RxNorm: 282097 1 Tablet(s) PO QHS No Start Date 08/10/2011 Inactive krill oil oral RxNorm: 78438 oral No Start Date 06/30/2019 Inacti ve warfarin 7.5 mg Tab RxNorm: 146435 1 Tablet(s) PO QOD No Start Date 1 09/16/2011 Inactive Lipitor 80 mg tablet RxNorm: 176826 1 Tablet(s) PO QHS No Start Date 04/27/2014 Inactive simvastatin 40 mg Tab RxNorm: 183788 1 Tablet(s) PO QHS No Start Da te 08/10/2011 Inactive Gemfibrozil 600 mg Tab RxNorm: 997116 1 Tablet(s) PO QHS No Start D ate 08/10/2011 Inactive Medication Administered No Medication Administered data Immunizations No Immunization data Results Observation Observation Code Item Item Code Result Date S ervice Location COMPLETE BLOOD COUNT [id number] WBC 9.7 10e9/L 06/19/20 18 Unknown COMPLETE BLOOD COUNT [id number] RBC 5.35 10e12/L 2017 Unknown COMPLETE BLOOD COUNT [id number] HEMOGLOBIN 17.1 g/dL 06/19/20 18 Unknown COMPLETE BLOOD COUNT [id number] HEMATOCRIT 52.4 % 06/19/20 18 Unknown COMPLETE BLOOD COUNT [id number] MCV 97.9 fL 8 Unknown COMPLETE BLOOD COUNT [id number] MCH 32.0 pg 8 Unknown COMPLETE BLOOD COUNT [id number] MCHC 32.6 g/dL 8 Unknown COMPLETE BLOOD COUNT [id number] PLATELET COUNT 257 10e9/L Unknown COMPLETE BLOOD COUNT [id number] Mean Plt Volume 11.2 fL Unknown COMPLETE BLOOD COUNT [id number] Neut Auto 54.6 % 8 Unknown COMPLETE BLOOD COUNT [id number] Lymph Auto 33.3 % 06/19/20 18 Unknown COMPLETE BLOOD COUNT [id number] [place] Auto 9.1 % 8 Unknown COMPLETE BLOOD COUNT [id number] RDW 14.4 % 8 Unknown COMPLETE BLOOD COUNT [id number] Eos Auto 2.6 % 8 Unknown COMPLETE BLOOD COUNT [id number] Baso Auto 0.4 % 8 Unknown COMPLETE BLOOD COUNT [id number] Neutrophil Abs 5.30 10e9/L Unknown COMPLETE BLOOD COUNT [id number] Lymphocyte Abs 3.23 10e9/L Unknown COMPLETE BLOOD COUNT [id number] Monocyte Abs 0.88 10e9/L 06/01 Unknown COMPLETE BLOOD COUNT [id number] Eosinophil Abs 0.25 10e9/L Unknown COMPLETE BLOOD COUNT [id number] RDW-SD 51.8 fL 8 Unknown COMPLETE BLOOD COUNT [id number] Basophil Abs 0.04 10e9/L 06/01 Unknown [facility] 88977 Cholesterol 222 mg/dL 06/19/2018 Unkno wn [facility] 74977 Triglyceride 111 mg/dL 06/19/2018 Unkn own [facility] 95845 HDL CHOLESTEROL 37 mg/dL 06/19/2018 U nknown [facility] 68220 Chol/HDL Ratio 6.00 ratio 06/19/2018 U nknown [facility] 99485 NON-HDL Chol 185 mg/dL 06/19/2018 Unkn own [facility] 64850 LDL Cholesterol 163 mg/dL 06/19/2018 U nknown VITAMIN B 12 10727 VITAMIN B12 532 pg/mL 06/19/2018 Unkn own THYROID STIMULATING HORMONE 13905 TSH 2.685 uIU/mL 06/19/2018 Unknown COMPREHENSIVE METABOLIC 99863 AST 15 U/L 2017 Unknown COMPREHENSIVE METABOLIC 91865 ALT 21 U/L 2017 Unknown COMPREHENSIVE METABOLIC 94253 BUN 16 mg/dL 2017 Unknown COMPREHENSIVE METABOLIC 41429 ALBUMIN 4.1 g/dL 2017 Unknown COMPREHENSIVE METABOLIC 96141 CHLORIDE 99 mmol/L 2017 Unknown COMPREHENSIVE METABOLIC 85742 Bili Total 0.4 mg/dL 06/19 Unknown COMPREHENSIVE METABOLIC 53178 ALK PHOS 43 U/L 2017 Unknown COMPREHENSIVE METABOLIC 41509 SODIUM 136 mmol/L 06/19 Unknown COMPREHENSIVE METABOLIC 70339 CREATININE 0.82 mg/dL 06/01 Unknown COMPREHENSIVE METABOLIC 66758 CALCIUM 9.5 mg/dL 2017 Unknown COMPREHENSIVE METABOLIC 47326 POTASSIUM 5.2 mmol/L 06/19 Unknown COMPREHENSIVE METABOLIC 48428 Total Protein 6.7 g/dL Unknown COMPREHENSIVE METABOLIC 02456 Glucose 81 mg/dL 2017 Unknown COMPREHENSIVE METABOLIC 53235 Bicarbonate 30 mmol/L 06/01 Unknown COMPREHENSIVE METABOLIC 45291 AGAP 7 mmol/L 2017 Unknown FREE T4 72917 T4 Free 0.85 ng/dL 06/19/2018 Unknown GFR CALC 7299862 GFR Afr Amr >60 mL/min 06/19/2018 Unknow n GFR CALC 9187592 GFR Non Afr Amr >60 mL/min 06/19/2018 Un known VITAMIN D TOTAL (25 HYDROXY) 85228 Vitamin D 25 OH 24.1 ng/mL 06/19/2018 Unknown PSA EQUIMOLAR TROY 58179 PSA Total 0.88 ng/mL 8 Unknown GFR CALC 9651579 GFR Non Afr Amr >60 mL/min 09/09/2016 Un known GFR CALC 7540980 GFR Afr Amr >60 mL/min 09/09/2016 Unknow n COMPLETE BLOOD COUNT 1798614 WBC 11.7 10e9/L 017 Unknown COMPLETE BLOOD COUNT [id number] RBC 5.54 10e12/L 2016 Unknown COMPLETE BLOOD COUNT 4288863 HEMOGLOBIN 17.6 g/dL 09/09/19 17 Unknown COMPLETE BLOOD COUNT 4704953 HEMATOCRIT 52.3 % 09/09/19 17 Unknown COMPLETE BLOOD COUNT 8968674 MCV 94.4 fL 7 Unknown COMPLETE BLOOD COUNT 7219402 MCH 31.8 pg 7 Unknown COMPLETE BLOOD COUNT 6865212 MCHC 33.7 g/dL 7 Unknown COMPLETE BLOOD COUNT 3386396 PLATELET COUNT 259 10e9/L 04/2017 Unknown COMPLETE BLOOD COUNT 7334682 Mean Plt Volume 11.2 fL 04/2017 Unknown COMPLETE BLOOD COUNT 3897074 Neut Auto 53.6 % 7 Unknown COMPLETE BLOOD COUNT 2556456 Lymph Auto 36.2 % 09/09/19 17 Unknown COMPLETE BLOOD COUNT 3808024 [place] Auto 7.9 % 7 Unknown COMPLETE BLOOD COUNT 5532267 Eos Auto 2.1 % 7 Unknown COMPLETE BLOOD COUNT 3109405 RDW 14.2 % 7 Unknown COMPLETE BLOOD COUNT 8401721 Baso Auto 0.2 % 7 Unknown COMPLETE BLOOD COUNT 4089975 Neutrophil Abs 6.27 10e9/L Unknown COMPLETE BLOOD COUNT 1892137 Lymphocyte Abs 4.24 10e9/L Unknown COMPLETE BLOOD COUNT [id number] Monocyte Abs 0.92 10e9/L 08/31 Unknown COMPLETE BLOOD COUNT 7322396 Eosinophil Abs 0.25 10e9/L Unknown COMPLETE BLOOD COUNT 3187801 RDW-SD 48.1 fL 7 Unknown COMPLETE BLOOD COUNT 0769028 Basophil Abs 0.02 10e9/L 08/31 Unknown COMPREHENSIVE METABOLIC 48613 AST 19 U/L 2016 Unknown COMPREHENSIVE METABOLIC 66669 ALT 25 U/L 2016 Unknown COMPREHENSIVE METABOLIC 90000 BUN 16 mg/dL 2016 Unknown COMPREHENSIVE METABOLIC 32504 ALBUMIN 4.8 g/dL 2016 Unknown COMPREHENSIVE METABOLIC 33614 CHLORIDE 100 mmol/L 09/09 Unknown COMPREHENSIVE METABOLIC 88013 Bili Total 0.7 mg/dL 09/09 Unknown COMPREHENSIVE METABOLIC 36658 ALK PHOS 50 U/L 2016 Unknown COMPREHENSIVE METABOLIC 77777 SODIUM 136 mmol/L 09/09 Unknown COMPREHENSIVE METABOLIC 67648 CREATININE 0.98 mg/dL 08/31 Unknown COMPREHENSIVE METABOLIC 30103 CALCIUM 9.8 mg/dL 2016 Unknown COMPREHENSIVE METABOLIC 06189 POTASSIUM 4.6 mmol/L 09/09 Unknown COMPREHENSIVE METABOLIC 68966 Total Protein 7.5 g/dL Unknown COMPREHENSIVE METABOLIC 22680 Glucose 104 mg/dL 2016 Unknown COMPREHENSIVE METABOLIC 84780 Bicarbonate 27 mmol/L 08/31 Unknown COMPREHENSIVE METABOLIC 33983 AGAP 9 mmol/L 2016 Unknown FREE T4 94616 T4 Free 1.04 ng/dL 09/09/2016 Unknown THYROID STIMULATING HORMONE 42960 TSH 1.618 uIU/mL 09/09/2016 Unknown LIPID GROUP 59004 Cholesterol 251 mg/dL 09/09/2016 Unkno wn LIPID GROUP 79022 Triglyceride 153 mg/dL 09/09/2016 Unkn own LIPID GROUP 18830 HDL CHOLESTEROL 33 mg/dL 09/09/2016 U nknown LIPID GROUP 14235 Chol/HDL Ratio 7.61 ratio 09/09/2016 U nknown LIPID GROUP 09416 NON-HDL Chol 218 mg/dL 09/09/2016 Unkn own LIPID GROUP 27427 LDL Cholesterol 187 mg/dL 09/09/2016 U nknown LIPID GROUP 75001 HDL TEST 39 MG/DL 09/15/2015 Unknown LIPID GROUP 74930 TRIG 106 MG/DL 09/15/2015 Unknown LIPID GROUP 13793 TEST LDL 152 MG/DL 09/15/2015 Unknown LIPID GROUP 58543 CHOL 212 MG/DL 09/15/2015 Unknown LIPID GROUP 70217 RCHOL/HDL 5.44 RATIO 09/15/2015 Unknow n LIPID GROUP 68261 NON-HDL CH 173 MG/DL 09/15/2015 Unknow n GFR CALC 3453485 GFR AA >60 ML/MIN 09/15/2015 Unknown GFR CALC 4893226 GFR NON-AA >60 ML/MIN 09/15/2015 Unknown COMPREHENSIVE METABOLIC 28575 AST 18 U/L 2015 Unknown COMPREHENSIVE METABOLIC 97642 ALT 28 IU/L 2015 Unknown COMPREHENSIVE METABOLIC 41251 BUN 14 MG/DL 2015 Unknown COMPREHENSIVE METABOLIC 33635 ALBUMIN 4.2 GM/DL 2015 Unknown COMPREHENSIVE METABOLIC 69557 CHLORIDE 101 MMOL/L 09/15 Unknown COMPREHENSIVE METABOLIC 27229 BILI TOT 0.6 MG/DL 2015 Unknown COMPREHENSIVE METABOLIC 14360 ALK PHOS 48 U/L 2015 Unknown COMPREHENSIVE METABOLIC 57980 SODIUM 135 MMOL/L 09/15 Unknown COMPREHENSIVE METABOLIC 64649 CREATININE 0.91 MG/DL 08/31 Unknown COMPREHENSIVE METABOLIC 63258 CALCIUM 9.2 MG/DL 2015 Unknown COMPREHENSIVE METABOLIC 14256 POTASSIUM 4.6 MMOL/L 09/15 Unknown COMPREHENSIVE METABOLIC 03963 PROT TOT 6.6 GM/DL 2015 Unknown COMPREHENSIVE METABOLIC 93495 Glucose 97 MG/DL 2015 Unknown COMPREHENSIVE METABOLIC 71261 BICARB 27 MMOL/L 2015 Unknown COMPREHENSIVE METABOLIC 70219 ANION GAP 7 MEQ/L 2015 Unknown LIPID GROUP 28236 HDL TEST 35 MG/DL 04/14/2015 Unknown LIPID GROUP 51164 TRIG 135 MG/DL 04/14/2015 Unknown LIPID GROUP 12436 TEST LDL 153 MG/DL 04/14/2015 Unknown LIPID GROUP 73136 CHOL 215 MG/DL 04/14/2015 Unknown LIPID GROUP 15844 RCHOL/HDL 6.14 RATIO 04/14/2015 Unknow n LIPID GROUP 93606 NON-HDL CH 180 MG/DL 04/14/2015 Unknow n GFR CALC 1816946 GFR AA >60 ML/MIN 04/14/2015 Unknown GFR CALC 1178002 GFR NON-AA >60 ML/MIN 04/14/2015 Unknown COMPREHENSIVE METABOLIC 41317 AST 23 U/L 2014 Unknown COMPREHENSIVE METABOLIC 19111 ALT 27 IU/L 2014 Unknown COMPREHENSIVE METABOLIC 71695 BUN 15 MG/DL 2014 Unknown COMPREHENSIVE METABOLIC 88693 ALBUMIN 4.2 GM/DL 2014 Unknown COMPREHENSIVE METABOLIC 90454 CHLORIDE 103 MMOL/L 04/14 Unknown COMPREHENSIVE METABOLIC 82860 BILI TOT 0.8 MG/DL 2014 Unknown COMPREHENSIVE METABOLIC 53431 ALK PHOS 50 U/L 2014 Unknown COMPREHENSIVE METABOLIC 98902 SODIUM 134 MMOL/L 04/14 Unknown COMPREHENSIVE METABOLIC 03327 CREATININE 0.93 MG/DL 03/31 Unknown COMPREHENSIVE METABOLIC 73930 CALCIUM 9.4 MG/DL 2014 Unknown COMPREHENSIVE METABOLIC 82193 POTASSIUM 4.4 MMOL/L 04/14 Unknown COMPREHENSIVE METABOLIC 15351 PROT TOT 6.8 GM/DL 2014 Unknown COMPREHENSIVE METABOLIC 92008 Glucose 101 MG/DL 2014 Unknown COMPREHENSIVE METABOLIC 65676 BICARB 25 MMOL/L 2014 Unknown COMPREHENSIVE METABOLIC 08743 ANION GAP 6 MEQ/L 2014 Unknown PSA EQUIMOLAR TROY 03219 PSA EQ 1.04 NG/ML 5 Unknown GFR CALC 4714383 GFR AA >60 ML/MIN 11/10/2014 Unknown GFR CALC 4785545 GFR NON-AA >60 ML/MIN 11/10/2014 Unknown LIPID GROUP 38641 HDL TEST 31 MG/DL 11/10/2014 Unknown LIPID GROUP 75734 TRIG 133 MG/DL 11/10/2014 Unknown LIPID GROUP 17636 TEST LDL 74 MG/DL 11/10/2014 Unknown LIPID GROUP 96211 CHOL 132 MG/DL 11/10/2014 Unknown LIPID GROUP 00575 RCHOL/HDL 4.26 RATIO 11/10/2014 Unknow n LIPID GROUP 70964 NON-HDL CH 101 MG/DL 11/10/2014 Unknow n COMPLETE BLOOD COUNT 7667525 WBC 10.2 10e9/L 015 Unknown COMPLETE BLOOD COUNT 6444861 RBC 5.01 10e12/L 2014 Unknown COMPLETE BLOOD COUNT 1632534 HGB 16.1 g/dL 5 Unknown COMPLETE BLOOD COUNT 0577891 HCT DET 48.1 % 5 Unknown COMPLETE BLOOD COUNT 6983272 MCV 96.0 fL 5 Unknown COMPLETE BLOOD COUNT 9185893 MCH 32.1 pg 5 Unknown COMPLETE BLOOD COUNT 1735932 MCHC 33.5 g/dL 5 Unknown COMPLETE BLOOD COUNT 3013274 PLT 248 10e9/L 11/11/19 15 Unknown COMPLETE BLOOD COUNT 8569522 MPV 11.4 fL 5 Unknown COMPLETE BLOOD COUNT 1595843 GIUSEPPE % 51.2 % 5 Unknown COMPLETE BLOOD COUNT 3693788 LY % 37.4 % 5 Unknown COMPLETE BLOOD COUNT 4483144 MON % 9.2 % 5 Unknown COMPLETE BLOOD COUNT 5748642 EOS % 2.0 % 5 Unknown COMPLETE BLOOD COUNT 1257828 BASO % 0.2 % 5 Unknown COMPLETE BLOOD COUNT 4872734 RDW 14.0 % 5 Unknown COMPLETE BLOOD COUNT 5360707 ABS GIUSEPPE 5.22 10e9/L 015 Unknown COMPLETE BLOOD COUNT 1933691 ABS LYMPH 3.81 10e9/L 015 Unknown COMPLETE BLOOD COUNT 1491026 ABS MONO 0.94 10e9/L 015 Unknown COMPLETE BLOOD COUNT 9744180 ABS EOS 0.20 10e9/L 015 Unknown COMPLETE BLOOD COUNT 1181508 ABS BASO 0.02 10e9/L 015 Unknown COMPLETE BLOOD COUNT 0950711 RDW-SD 47.8 fL 5 Unknown FREE T4 10261 FREE T4 0.92 NG/DL 11/10/2014 Unknown COMPREHENSIVE METABOLIC 00338 AST 18 U/L 2014 Unknown COMPREHENSIVE METABOLIC 46916 ALT 25 IU/L 2014 Unknown COMPREHENSIVE METABOLIC 30356 BUN 16 MG/DL 2014 Unknown COMPREHENSIVE METABOLIC 14336 ALBUMIN 4.5 GM/DL 2014 Unknown COMPREHENSIVE METABOLIC 64330 CHLORIDE 103 MMOL/L 11/10 Unknown COMPREHENSIVE METABOLIC 03493 BILI TOT 0.4 MG/DL 2014 Unknown COMPREHENSIVE METABOLIC 65836 ALK PHOS 53 U/L 2014 Unknown COMPREHENSIVE METABOLIC 33479 SODIUM 135 MMOL/L 11/10 Unknown COMPREHENSIVE METABOLIC 01139 CREATININE 0.97 MG/DL 10/29 Unknown COMPREHENSIVE METABOLIC 58630 CALCIUM 9.4 MG/DL 2014 Unknown COMPREHENSIVE METABOLIC 30584 POTASSIUM 4.4 MMOL/L 11/10 Unknown COMPREHENSIVE METABOLIC 69137 PROT TOT 6.9 GM/DL 2014 Unknown COMPREHENSIVE METABOLIC 39784 Glucose 91 MG/DL 2014 Unknown COMPREHENSIVE METABOLIC 30244 BICARB 26 MMOL/L 2014 Unknown COMPREHENSIVE METABOLIC 88978 ANION GAP 6 MEQ/L 2014 Unknown THYROID STIMULATING HORMONE 44399 TSH 3.791 uIU/ML 11/10/2014 Unknown LIPID GROUP 50094 HDL TEST 35 MG/DL 04/29/2014 Unknown LIPID GROUP 53445 TRIG 123 MG/DL 04/29/2014 Unknown LIPID GROUP 47981 TEST LDL 117 MG/DL 04/29/2014 Unknown LIPID GROUP 82675 CHOL 177 MG/DL 04/29/2014 Unknown LIPID GROUP 68556 RCHOL/HDL 5.06 RATIO 04/29/2014 Unknow n LIPID GROUP 52679 NON-HDL CH 142 MG/DL 04/29/2014 Unknow n COMPREHENSIVE METABOLIC 17687 AST 18 U/L 2013 Unknown COMPREHENSIVE METABOLIC 21420 ALT 29 IU/L 2013 Unknown COMPREHENSIVE METABOLIC 91673 BUN 19 MG/DL 2013 Unknown COMPREHENSIVE METABOLIC 19269 ALBUMIN 4.0 GM/DL 2013 Unknown COMPREHENSIVE METABOLIC 41470 CHLORIDE 106 MMOL/L 04/29 Unknown COMPREHENSIVE METABOLIC 17271 BILI TOT 0.4 MG/DL 2013 Unknown COMPREHENSIVE METABOLIC 22425 ALK PHOS 51 U/L 2013 Unknown COMPREHENSIVE METABOLIC 60148 SODIUM 138 MMOL/L 04/29 Unknown COMPREHENSIVE METABOLIC 32913 CREATININE 0.87 MG/DL 04/02 Unknown COMPREHENSIVE METABOLIC 55424 CALCIUM 9.4 MG/DL 2013 Unknown COMPREHENSIVE METABOLIC 40506 POTASSIUM 4.5 MMOL/L 04/29 Unknown COMPREHENSIVE METABOLIC 92464 PROT TOT 6.8 GM/DL 2013 Unknown COMPREHENSIVE METABOLIC 50802 Glucose 106 MG/DL 2013 Unknown COMPREHENSIVE METABOLIC 29401 BICARB 24 MMOL/L 2013 Unknown COMPREHENSIVE METABOLIC 88476 ANION GAP 8 MEQ/L 2013 Unknown GFR CALC 9038860 GFR AA >60 ML/MIN 04/29/2014 Unknown GFR CALC 0380793 GFR NON-AA >60 ML/MIN 04/29/2014 Unknown LIPID GROUP 78013 HDL TEST 30 MG/DL 12/18/2013 Unknown LIPID GROUP 79002 TRIG 128 MG/DL 12/18/2013 Unknown LIPID GROUP 81081 TEST LDL 166 MG/DL 12/18/2013 Unknown LIPID GROUP 65307 CHOL 222 MG/DL 12/18/2013 Unknown LIPID GROUP 16155 RCHOL/HDL 7.40 RATIO 12/18/2013 Unknow n GFR CALC 6287081 GFR AA >60 ML/MIN 12/18/2013 Unknown GFR CALC 4535581 GFR NON-AA >60 ML/MIN 12/18/2013 Unknown FREE T4 68734 FREE T4 1.07 NG/DL 12/18/2013 Unknown COMPLETE BLOOD COUNT 4693141 WBC 7.2 10e9/L 12/19/19 14 Unknown COMPLETE BLOOD COUNT 7063100 RBC 4.89 10e12/L 2013 Unknown COMPLETE BLOOD COUNT 6086428 HGB 15.5 g/dL 4 Unknown COMPLETE BLOOD COUNT 5914631 HCT DET 46.6 % 4 Unknown COMPLETE BLOOD COUNT 6684539 MCV 95.3 fL 4 Unknown COMPLETE BLOOD COUNT 6077931 MCH 31.7 pg 4 Unknown COMPLETE BLOOD COUNT 4885905 MCHC 33.3 g/dL 4 Unknown COMPLETE BLOOD COUNT 7224680 PLT 246 10e9/L 12/19/19 14 Unknown COMPLETE BLOOD COUNT 1054750 MPV 11.4 fL 4 Unknown COMPLETE BLOOD COUNT 5699407 GIUSEPPE % 48.6 % 4 Unknown COMPLETE BLOOD COUNT 8819116 LY % 37.4 % 4 Unknown COMPLETE BLOOD COUNT 2488929 MON % 10.5 % 4 Unknown COMPLETE BLOOD COUNT 7983479 EOS % 3.2 % 4 Unknown COMPLETE BLOOD COUNT 2697641 BASO % 0.3 % 4 Unknown COMPLETE BLOOD COUNT 7418299 RDW 13.6 % 4 Unknown COMPLETE BLOOD COUNT 1513144 ABS GIUSEPPE 3.50 10e9/L 014 Unknown COMPLETE BLOOD COUNT 4739928 ABS LYMPH 2.69 10e9/L 014 Unknown COMPLETE BLOOD COUNT 1451659 ABS MONO 0.76 10e9/L 014 Unknown COMPLETE BLOOD COUNT 5310297 ABS EOS 0.23 10e9/L 014 Unknown COMPLETE BLOOD COUNT 9463772 ABS BASO 0.02 10e9/L 014 Unknown COMPLETE BLOOD COUNT 2489757 RDW-SD 46.2 fL 4 Unknown COMPREHENSIVE METABOLIC 89014 AST 38 U/L 2013 Unknown COMPREHENSIVE METABOLIC 16680 ALT 33 IU/L 2013 Unknown COMPREHENSIVE METABOLIC 13875 BUN 15 MG/DL 2013 Unknown COMPREHENSIVE METABOLIC 42306 ALBUMIN 4.2 GM/DL 2013 Unknown COMPREHENSIVE METABOLIC 32776 CHLORIDE 103 MMOL/L 12/18 Unknown COMPREHENSIVE METABOLIC 40396 BILI TOT 0.6 MG/DL 2013 Unknown COMPREHENSIVE METABOLIC 60061 ALK PHOS 45 U/L 2013 Unknown COMPREHENSIVE METABOLIC 65758 SODIUM 136 MMOL/L 12/18 Unknown COMPREHENSIVE METABOLIC 83678 CREATININE 0.97 MG/DL 11/29 Unknown COMPREHENSIVE METABOLIC 22759 CALCIUM 9.2 MG/DL 2013 Unknown COMPREHENSIVE METABOLIC 73944 POTASSIUM 4.2 MMOL/L 12/18 Unknown COMPREHENSIVE METABOLIC 70305 PROT TOT 7.0 GM/DL 2013 Unknown COMPREHENSIVE METABOLIC 94797 Glucose 120 MG/DL 2013 Unknown COMPREHENSIVE METABOLIC 65816 BICARB 24 MMOL/L 2013 Unknown COMPREHENSIVE METABOLIC 25923 ANION GAP 9 MEQ/L 2013 Unknown THYROID STIMULATING HORMONE 44998 TSH 1.305 uIU/ML 12/18/2013 Unknown PSA EQUIMOLAR TROY 78478 PSA EQ 1.71 NG/ML 4 Unknown LIPID GROUP 86807 HDL TEST 29 MG/DL 07/17/2012 Unknown LIPID GROUP 48202 TRIG 155 MG/DL 07/17/2012 Unknown LIPID GROUP 30947 TEST LDL 105 MG/DL 07/17/2012 Unknown LIPID GROUP 46166 CHOL 165 MG/DL 07/17/2012 Unknown LIPID GROUP 83599 RCHOL/HDL 5.69 RATIO 07/17/2012 Unknow n GFR CALC 1365734 GFR AA >60 ML/MIN 07/17/2012 Unknown GFR CALC 6327390 GFR NON-AA >60 ML/MIN 07/17/2012 Unknown COMPREHENSIVE METABOLIC 03967 AST 19 U/L 2011 Unknown COMPREHENSIVE METABOLIC 99307 ALT 25 IU/L 2011 Unknown COMPREHENSIVE METABOLIC 76722 BUN 14 MG/DL 2011 Unknown COMPREHENSIVE METABOLIC 18977 ALBUMIN 4.4 GM/DL 2011 Unknown COMPREHENSIVE METABOLIC 90654 CHLORIDE 103 MMOL/L 07/17 Unknown COMPREHENSIVE METABOLIC 80479 BILI TOT 0.6 MG/DL 2011 Unknown COMPREHENSIVE METABOLIC 99387 ALK PHOS 53 U/L 2011 Unknown COMPREHENSIVE METABOLIC 26006 SODIUM 136 MMOL/L 07/17 Unknown COMPREHENSIVE METABOLIC 70157 CREATININE 0.97 MG/DL 06/30 Unknown COMPREHENSIVE METABOLIC 03504 CALCIUM 9.4 MG/DL 2011 Unknown COMPREHENSIVE METABOLIC 64566 POTASSIUM 4.3 MMOL/L 07/17 Unknown COMPREHENSIVE METABOLIC 18159 PROT TOT 6.9 GM/DL 2011 Unknown COMPREHENSIVE METABOLIC 49066 Glucose 102 MG/DL 2011 Unknown COMPREHENSIVE METABOLIC 09136 BICARB 27 MMOL/L 2011 Unknown COMPREHENSIVE METABOLIC 36607 ANION GAP 6 MEQ/L 2011 Unknown ERYTHROCYTE SEDIMENTATION RATE 82148 ESR 14 MM/HR 03/20/2012 Unknown LIPID GROUP 30156 HDL TEST 31 MG/DL 03/20/2012 Unknown LIPID GROUP 38197 TRIG 210 MG/DL 03/20/2012 Unknown LIPID GROUP 25603 TEST LDL 164 MG/DL 03/20/2012 Unknown LIPID GROUP 47812 CHOL 237 MG/DL 03/20/2012 Unknown LIPID GROUP 15965 RCHOL/HDL 7.65 RATIO 03/20/2012 Unknow n GFR CALC 1374843 GFR AA >60 ML/MIN 03/20/2012 Unknown GFR CALC 9258168 GFR NON-AA >60 ML/MIN 03/20/2012 Unknown C-REACTIVE PROTEIN (CRP) QUANT 29137 CRP 0.9 MG/DL 03/20/2012 Unknown COMPLETE BLOOD COUNT 39977 WBC 9.7 10e9/L 03/20/20 12 Unknown COMPLETE BLOOD COUNT 52109 RBC 5.14 10e12/L 2011 Unknown COMPLETE BLOOD COUNT 44337 HGB 15.5 g/dL 2 Unknown COMPLETE BLOOD COUNT 51868 HCT DET 46.9 % 2 Unknown COMPLETE BLOOD COUNT 49571 MCV 91.2 fL 2 Unknown COMPLETE BLOOD COUNT 44550 MCH 30.2 pg 2 Unknown COMPLETE BLOOD COUNT 16572 MCHC 33.0 g/dL 2 Unknown COMPLETE BLOOD COUNT 57150 PLT 280 10e9/L 03/20/20 12 Unknown COMPLETE BLOOD COUNT 92770 MPV 10.6 fL 2 Unknown COMPLETE BLOOD COUNT 81066 GIUSEPPE % 61.5 % 2 Unknown COMPLETE BLOOD COUNT 05856 LY % 26.5 % 2 Unknown COMPLETE BLOOD COUNT 28665 MON % 8.8 % 2 Unknown COMPLETE BLOOD COUNT 87571 EOS % 3.0 % 2 Unknown COMPLETE BLOOD COUNT 13986 BASO % 0.2 % 2 Unknown COMPLETE BLOOD COUNT 73195 RDW 15.3 % 2 Unknown COMPLETE BLOOD COUNT 40212 ABS GIUSEPPE 5.97 10e9/L 012 Unknown COMPLETE BLOOD COUNT 32414 ABS LYMPH 2.57 10e9/L 012 Unknown COMPLETE BLOOD COUNT 77635 ABS MONO 0.85 10e9/L 012 Unknown COMPLETE BLOOD COUNT 14480 ABS EOS 0.29 10e9/L 012 Unknown COMPLETE BLOOD COUNT 38048 ABS BASO 0.02 10e9/L 012 Unknown COMPLETE BLOOD COUNT 86219 RDW-SD 50.3 fL 2 Unknown COMPREHENSIVE METABOLIC 01510 AST 16 U/L 2011 Unknown COMPREHENSIVE METABOLIC 99086 ALT 21 IU/L 2011 Unknown COMPREHENSIVE METABOLIC 95120 BUN 15 MG/DL 2011 Unknown COMPREHENSIVE METABOLIC 45105 ALBUMIN 4.3 GM/DL 2011 Unknown COMPREHENSIVE METABOLIC 47203 CHLORIDE 102 MMOL/L 03/20 Unknown COMPREHENSIVE METABOLIC 15116 BILI TOT 0.5 MG/DL 2011 Unknown COMPREHENSIVE METABOLIC 76712 ALK PHOS 60 U/L 2011 Unknown COMPREHENSIVE METABOLIC 16663 SODIUM 135 MMOL/L 03/20 Unknown COMPREHENSIVE METABOLIC 34223 CREATININE 0.94 MG/DL 03/01 Unknown COMPREHENSIVE METABOLIC 16169 CALCIUM 9.0 MG/DL 2011 Unknown COMPREHENSIVE METABOLIC 75648 POTASSIUM 4.4 MMOL/L 03/20 Unknown COMPREHENSIVE METABOLIC 98738 PROT TOT 6.7 GM/DL 2011 Unknown COMPREHENSIVE METABOLIC 98649 Glucose 96 MG/DL 2011 Unknown COMPREHENSIVE METABOLIC 75595 BICARB 25 MMOL/L 2011 Unknown COMPREHENSIVE METABOLIC 08507 ANION GAP 8 MEQ/L [address] [place] [address] PRO TIME 21.6 SEC 03/20/2012 Unknow n PT [facility] [place] 37832 INR MCMC 1.8 03/20/2012 Unknow n Procedures Procedure Codes Date ROUTINE VENIPUNCTURE CPT-4: 72811 06/19/2018 ASSAY OF FREE THYROXINE CPT-4: 95686 06/19/2018 ASSAY THYROID STIM HORMONE CPT-4: 79985 06/19/2018 COMPREHEN METABOLIC PANEL CPT-4: 65170 06/19/2018 COMPLETE CBC W/AUTO DIFF WBC CPT-4: 65486 06/19/2018 LIPID PANEL CPT-4: 58342 06/19/2018 ASSAY OF PSA TOTAL CPT-4: 82961 06/19/2018 VITAMIN D TOTAL (25 HYDROXY) CPT-4: 41038 06/19/2018 VITAMIN B-12 CPT-4: 65886 06/19/2018 DEXAMETHASONE SODIUM PHOS CPT-4: J1100 08/31/2017 TRIAMCINOLONE ACET INJ NOS CPT-4: J3301 08/31/2017 DRAIN/INJECT JOINT/BURSA CPT-4: 09571 08/31/2017 ROUTINE VENIPUNCTURE CPT-4: 39136 08/01/2017 COMPREHEN METABOLIC PANEL CPT-4: 83956 08/01/2017 LIPID PANEL CPT-4: 65905 08/01/2017 DRAIN/INJECT JOINT/BURSA CPT-4: 33746 09/12/2016 TRIAMCINOLONE ACET INJ NOS CPT-4: J3301 09/12/2016 DEXAMETHASONE SODIUM PHOS CPT-4: J1100 09/12/2016 ROUTINE VENIPUNCTURE CPT-4: 46465 09/09/2016 ASSAY OF FREE THYROXINE CPT-4: 93278 09/09/2016 ASSAY THYROID STIM HORMONE CPT-4: 75268 09/09/2016 COMPREHEN METABOLIC PANEL CPT-4: 60290 09/09/2016 COMPLETE CBC W/AUTO DIFF WBC CPT-4: 64903 09/09/2016 LIPID PANEL CPT-4: 69152 09/09/2016 SPECIAL REPORTS OR FORMS CPT-4: 79950 08/05/2016 ROUTINE VENIPUNCTURE CPT-4: 94394 09/15/2015 COMPREHEN METABOLIC PANEL CPT-4: 63354 09/15/2015 LIPID PANEL CPT-4: 66138 09/15/2015 PRESCRIP TRANSMIT VIA ERX SY CPT-4: G8553 08/31/2015 ROUTINE VENIPUNCTURE CPT-4: 71163 04/14/2015 COMPREHEN METABOLIC PANEL CPT-4: 38177 04/14/2015 LIPID PANEL CPT-4: 92477 04/14/2015 ROUTINE VENIPUNCTURE CPT-4: 68461 11/10/2014 ASSAY OF FREE THYROXINE CPT-4: 43226 11/10/2014 ASSAY THYROID STIM HORMONE CPT-4: 52342 11/10/2014 COMPREHEN METABOLIC PANEL CPT-4: 88757 11/10/2014 COMPLETE CBC W/AUTO DIFF WBC CPT-4: 36086 11/10/2014 LIPID PANEL CPT-4: 22014 11/10/2014 ASSAY OF PSA TOTAL CPT-4: 50226 11/10/2014 ROUTINE VENIPUNCTURE CPT-4: 66175 04/29/2014 COMPREHEN METABOLIC PANEL CPT-4: 48912 04/29/2014 LIPID PANEL CPT-4: 60563 04/29/2014 ROUTINE VENIPUNCTURE CPT-4: 27332 12/18/2013 ASSAY OF FREE THYROXINE CPT-4: 32055 12/18/2013 ASSAY THYROID STIM HORMONE CPT-4: 15187 12/18/2013 COMPREHEN METABOLIC PANEL CPT-4: 90088 12/18/2013 COMPLETE CBC W/AUTO DIFF WBC CPT-4: 64902 12/18/2013 LIPID PANEL CPT-4: 68108 12/18/2013 ASSAY OF PSA TOTAL CPT-4: 78363 12/18/2013 ROUTINE VENIPUNCTURE CPT-4: 46320 07/17/2012 COMPREHEN METABOLIC PANEL CPT-4: 58544 07/17/2012 LIPID PANEL CPT-4: 42489 07/17/2012 ROUTINE VENIPUNCTURE CPT-4: 01028 03/20/2012 COMPLETE CBC W/AUTO DIFF WBC CPT-4: 40072 03/20/2012 RBC SED RATE AUTOMATED CPT-4: 62621 03/20/2012 C-REACTIVE PROTEIN CPT-4: 66462 03/20/2012 COMPREHEN METABOLIC PANEL CPT-4: 85378 03/20/2012 LIPID PANEL CPT-4: 01915 03/20/2012 PROTHROMBIN TIME CPT-4: 73949 03/20/2012 Vital Signs Date Vital 10/07/2019 Blood Pressure 1: 142/83 Code: 8480-6 BMI: 31.3 Code: 89503-1 Heart Rate 1: 80 bpm Height: 6'2" Respiratory Rate: 17 bpm SpO2: 99% Tempera ture: 36.7 (C) / 98.1 (F) Weight: 244 lbs 07/01/2019 Blood Pressure 1: 114/80 Code: 8480-6 BMI: 30.4 Code: 07883-5 Heart Rate 1: 72 bpm Height: 6'2" [...] 1: 126/82 Code: 8480-6 BMI: 31.2 Code: 05338-2 Heart Rate 1: 84 bpm Height: 6'2" Respiratory Rate: 20 bpm SpO2: 94% Tempera ture: 37.0 (C) / 98.6 (F) Weight: 243 lbs 03/02/2018 Blood Pressure 1: 122/80 Code: 8480-6 BMI: 30.8 Code: 46988-2 Heart Rate 1: 74 bpm Height: 6'2" Respiratory Rate: 20 bpm SpO2: 95% Tempera ture: 37.1 (C) / 98.8 (F) Weight: 240 lbs 08/31/2017 Blood Pressure 1: 136/90 Code: 8480-6 Heart Rate 1: 76 bpm Respiratory Rate: 20 bpm Temperature: 36.7 (C) / 98.0 (F) Weight: 247 lbs 07/18/2017 Blood Pressure 1: 126/78 Code: 8480-6 BMI: 31.3 Code: 16807-1 Heart Rate 1: 72 bpm Height: 6'2" Respiratory Rate: 20 bpm SpO2: 94% Tempera ture: 37.0 (C) / 98.6 (F) Weight: 244 lbs 04/24/2017 Blood Pressure 1: 152/92 Code: 8480-6 BMI: 31.1 Code: 83371-6 Heart Rate 1: 74 bpm Height: 6'2" Respiratory Rate: 18 bpm SpO2: 98% Tempera ture: 35.9 (C) / 96.6 (F) Weight: 242 lbs 01/04/2017 Blood Pressure 1: 122/70 Code: 8480-6 BMI: 30.4 Code: 59730-3 Heart Rate 1: 88 bpm Height: 6'2" Respiratory Rate: 20 bpm SpO2: 96% Tempera ture: 36.6 (C) / 97.8 (F) Weight: 237 lbs 09/12/2016 Blood Pressure 1: 136/78 Code: 8480-6 Heart Rate 1: 82 bpm Respiratory Rate: 22 bpm SpO2: 94% Temperature: 36.4 (C) / 97.6 (F) We ight: 234 lbs 09/07/2016 Blood Pressure 1: 12270 Code: 8480-6 BMI: 30.0 Code: 54431-8 Heart Rate 1: 88 bpm Height: 6'2" Respiratory Rate: 20 bpm SpO2: 94% Tempera ture: 36.6 (C) / 97.9 (F) Weight: 234 lbs 08/31/2015 Blood Pressure 1: 142/94 Code: 8480-6 BMI: 28.9 Code: 76065-4 Heart Rate 1: 92 bpm Height: 6'2" Respiratory Rate: 20 bpm Temperature: 36 .9 (C) / 98.5 (F) Weight: 225 lbs 04/14/2015 Blood Pressure 1: 126/80 Code: 8480-6 BMI: 28.0 Code: 65769-1 Heart Rate 1: 76 bpm Height: 6'2" Respiratory Rate: 20 bpm Temperature: 36 .6 (C) / 97.8 (F) Weight: 218 lbs 10/07/2014 Blood Pressure 1: 128/76 Code: 8480-6 BMI: 28.6 Code: 98167-8 Heart Rate 1: 84 bpm Height: 6'2" Respiratory Rate: 22 bpm Temperature: 36 .6 (C) / 97.9 (F) Weight: 223 lbs 05/01/2014 Blood Pressure 1: 126/68 Code: 8480-6 BMI: 28.2 Code: 22416-2 Heart Rate 1: 84 bpm Height: 6'2" Respiratory Rate: 20 bpm Temperature: 36 .8 (C) / 98.3 (F) Weight: 220 lbs 12/17/2013 Blood Pressure 1: 136/82 Code: 8480-6 BMI: 29.6 Code: 66952-2 Heart Rate 1: 76 bpm Height: 6'1" Respiratory Rate: 20 bpm Temperature: 36 .8 (C) / 98.2 (F) Weight: 224 lbs 12/11/2012 Blood Pressure 1: 122/86 Code: 8480-6 BMI: 30.5 Code: 61496-8 Heart Rate 1: 76 bpm Height: 6'1" Respiratory Rate: 20 bpm SpO2: 93% Tempera ture: 36.8 (C) / 98.2 (F) Weight: 231 lbs 12/04/2012 Blood Pressure 1: 124/86 Code: 8480-6 BMI: 30.5 Code: 80072-4 Heart Rate 1: 68 bpm Height: 6'1" Respiratory Rate: 20 bpm SpO2: 95% Tempera ture: 36.6 (C) / 97.8 (F) Weight: 231 lbs 08/14/2012 Blood Pressure 1: 126/70 Code: 8480-6 BMI: 29.4 Code: 98015-6 Heart Rate 1: 80 bpm Height: 6'1" Respiratory Rate: 20 bpm Temperature: 36 .8 (C) / 98.3 (F) Weight: 223 lbs 07/17/2012 Blood Pressure 1: 124/82 Code: 8480-6 BMI: 29.7 Code: 91848-4 Heart Rate 1: 80 bpm Height: 6'1" Respiratory Rate: 20 bpm Temperature: 36 .8 (C) / 98.2 (F) Weight: 225 lbs 03/20/2012 Blood Pressure 1: 124/78 Code: 8480-6 BMI: 29.3 Code: 65055-7 Heart Rate 1: 72 bpm Height: 6'1" Respiratory Rate: 20 bpm Temperature: 36 .6 (C) / 97.8 (F) Weight: 222 lbs 12/08/2011 Blood Pressure 1: 112/64 Code: 8480-6 BMI: 28.2 Code: 36807-6 Heart Rate 1: 78 bpm Height: 6'1" Temperature: 36.3 (C) / 97.4 (F) Weight: 214 lbs 08/11/2011 Blood Pressure 1: 128/70 Code: 8480-6 BMI: 27.6 Code: 34005-3 Heart Rate 1: 76 bpm Height: 6'1" [...] 06/19/2018 Medication Monitoring 03/02/2018 Medication Monitoring 02/01/2018 JONATHAN UA Performed wrist pain 08/31/2017 lab draw [...] it Encounters Encounter Performer Location Codes Date ([id number]) OFFICE/OUTPATIENT VISIT EST Diagnosis: COPD (chronic obstructive pulmonary disease)[ICD10: J44.9] Diagnosis: Mixed hyperlipidemia[ICD10: E78.2] Diagnosis: Coronary artery disease[ICD10: I25.10] Diagnosis: 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: G57.92] Martita Black [employer] CPT-4: 27959 10/07/2019 ([id number]) OFFICE/OUTPATIENT VISIT EST Diagnosis: Cephalgia[ICD10: R51] Diagnosis: Family history of brain aneurysm[ICD10: Z82.49] Diagnosis: Other intervertebral disc degeneration, 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] Martita Black [facility] CPT-4: 01862 07/01/2019 ([id number]) OFFICE/OUTPATIENT VISIT EST Diagnosis: Atherosclerotic heart disease of [place] coronary artery without angina pectoris[ICD10: I25.10] Diagnosis: Bilateral primary osteoarthritis of knee[ICD10: M17.0] Diagnosis: Nicotine dependence, unspecified, uncomplicated[ICD10: F17.200] Diagnosis: Mixed hyperlipidemia[ICD10: E78.2] Martita FabianVouchr CPT-4: 13064 03/27/2019 ([id number]) OFFICE/OUTPATIENT VISIT EST Diagnosis: Mixed hyperlipidemia[ICD10: E78.2] Diagnosis: Atherosclerotic heart disease of [place] coronary artery without angina pectoris[ICD10: I25.10] Diagnosis: Other intervertebral disc degeneration, 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] Martita Black [facility] CPT-4: 82599 12/25/2018 ([id number]) OFFICE/OUTPATIENT VISIT EST Diagnosis: Mixed hyperlipidemia[ICD10: E78.2] Diagnosis: Other fatigue[ICD10: R53.83] Diagnosis: Encounter for screening for malignant neoplasm of prostate[ICD10: Z12.5] Diagnosis: Primary osteoarthritis, 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] Diagnosis: Pain in thoracic spine[ICD10: M54.6] Martita FISCHER Forse[employer] CPT-4: 18154 06/19/2018 ([id number]) OFFICE/OUTPATIENT VISIT EST Diagnosis: Encounter for therapeutic drug level monitoring[ICD10: Z51.81] Diagnosis: Pain in 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: M25.531] Diagnosis: Pain in right knee[ICD10: M25.561] Diagnosis: Pain in left knee[ICD10: M25.562] Marian Lam SSohail AGUIRRENDJOELLEN ASHBY [facility] CPT-4: 00838 03/02/2018 ([id number]) OFFICE/OUTPATIENT VISIT EST Diagnosis: Mixed hyperlipidemia[ICD10: E78.2] Martita SIMONS DO [employer] CPT-4: 33613 08/01/2017 ([id number]) OFFICE/OUTPATIENT VISIT EST Diagnosis: Other spondylosis with radiculopathy, cervical region[ICD10: M47.22] Diagnosis: Pain in 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: M25.531] Diagnosis: Mixed hyperlipidemia[ICD10: E78.2] Diagnosis: 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] Martita SIMONS DO [employer] CPT-4: 9921 3 07/18/2017 ([id number]) OFFICE/OUTPATIENT VISIT EST Diagnosis: Other intervertebral disc degeneration, 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] Diagnosis: Cervicalgia[ICD10: M54.2] Martita YOUNG Cov[employer] [facility] CPT-4: 03452 04/24/2017 ([id number]) OFFICE/OUTPATIENT VISIT EST Diagnosis: Cervicalgia[ICD10: M54.2] Diagnosis: Other intervertebral disc degeneration, 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] Diagnosis: Mixed hyperlipidemia[ICD10: E78.2] Martita José Migueljessiejoellen SIMONS [employer] CPT-4: 90700 01/04/2017 ([id number]) OFFICE/OUTPATIENT VISIT EST Diagnosis: Mixed hyperlipidemia[ICD10: E78.2] Diagnosis: Encounter for general adult medical examination with abnormal findings[ICD10: Z00.01] Martita SIMONS [employer] CPT-4: 65487 09/09/2016 ([id number]) PREV VISIT EST AGE 40-64 Diagnosis: Mixed hyperlipidemia[ICD10: E78.2] Diagnosis: Nicotine dependence, unspecified, uncomplicated[ICD10: F17.200] Diagnosis: Chronic obstructive pulmonary disease with acute lower respiratory infection[ICD10: J44.0] Diagnosis: Bilateral primary osteoarthritis of knee[ICD10: M17.0] Diagnosis: Pain in thoracic spine[ICD10: M54.6] Diagnosis: Pain in 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: M25.531] Diagnosis: Encounter for general adult medical examination with abnormal findings[ICD10: Z00.01] Martita SIMONS DO [employer] CPT-4: 45521 09/07/2016 ([id number]) OFFICE/OUTPATIENT VISIT EST Diagnosis: Mixed hyperlipidemia[ICD10: E78.2] Martita SIMONS [employer] CPT-4: 66721 09/15/2015 ([id number]) OFFICE/OUTPATIENT VISIT EST Diagnosis: Acute bronchitis, unspecified[ICD10: J20.9] Diagnosis: Chronic obstructive pulmonary disease with acute lower respiratory infection[ICD10: J44.0] Diagnosis: Lumbago with sciatica, right side[ICD10: M54.41] Martita SIMONS [employer] CPT-4: 76331 08/31/2015 ([id number]) OFFICE/OUTPATIENT VISIT EST Diagnosis: HYPERLIPIDEMIA NEC/NOS[ICD9: 272.4] Diagnosis: TOBACCO USE DISORDER[ICD9: 305.1] Diagnosis: Osteoarthritis, knee[ICD9: 715.96] Diagnosis: Chronic back pain[ICD9: 724.5] Martita SIMONS [employer] CPT-4: 17873 04/14/2015 ([id number]) OFFICE/OUTPATIENT VISIT EST Diagnosis: HYPERLIPIDEMIA NEC/NOS[ICD9: 272.4] Diagnosis: COPD[ICD9: 496] Diagnosis: ROUTINE MEDICAL EXAM[ICD9: V70.0] Martita SIMONS [employer] CPT-4: 69979 11/10/2014 ([id number]) OFFICE/OUTPATIENT VISIT EST Diagnosis: Wrist pain[ICD9: 719.43] Diagnosis: Knee osteoarthritis[ICD9: 715.96] Diagnosis: Chronic back pain[ICD9: 724.5] Martita SIMONS [employer] CPT-4: 12797 10/07/2014 ([id number]) OFFICE/OUTPATIENT VISIT EST Diagnosis: HYPERLIPIDEMIA NEC/NOS[ICD9: 272.4] Diagnosis: Chronic back pain[ICD9: 724.5] Diagnosis: OSTEOARTH NOS-L/LEG[ICD9: 715.96] Martita SIMONS DO [facility] CPT-4: 06280 05/01/2014 ([id number]) OFFICE/OUTPATIENT VISIT EST Diagnosis: HYPERLIPIDEMIA NEC/NOS[ICD9: 272.4] Martita SIMONS DO [facility] CPT-4: 71814 04/29/2014 ([id number]) OFFICE/OUTPATIENT VISIT EST Diagnosis: ROUTINE MEDICAL EXAM[ICD9: V70.0] Diagnosis: HYPERLIPIDEMIA NEC/NOS[ICD9: 272.4] Martita SIMONS DO [facility] CPT-4: 44423 12/18/2013 OFFICE/OUTPATIENT VISIT EST Diagnosis: HYPERLIPIDEMIA NEC/NOS[ICD9: 272.4] Diagnosis: COPD[ICD9: 496] Diagnosis: Knee pain[ICD9: 719.46] Diagnosis: Wrist pain[ICD9: 719.43] Martita ROMERO [employer] [facility] CPT-4: 07218 12/17/2013 OFFICE/OUTPATIENT VISIT EST Diagnosis: COPD W/ ACUTE EXACERB[ICD9: 491.21] Diagnosis: COUGH[ICD9: 786.2] Martita SIMONS DO [facility] CPT-4: 77554 12/11/2012 ([id number]) OFFICE/OUTPATIENT VISIT EST Diagnosis: BRONCHITIS, ACUTE[ICD9: 466.0] Diagnosis: COPD exacerbation[ICD9: 491.21] Martita SIMONS DO [facility] CPT-4: 14459 12/04/2012 ([id number]) OFFICE/OUTPATIENT VISIT EST Diagnosis: DERMATITIS NOS[ICD9: 692.9] Diagnosis: TOBACCO USE DISORDER[ICD9: 305.1] Martita SIMONS [employer] [facility] CPT-4: 42046 08/14/2012 ([id number]) OFFICE/OUTPATIENT VISIT EST Diagnosis: TOBACCO USE DISORDER[ICD9: 305.1] Diagnosis: PAIN, LOWER BACK[ICD9: 724.2] Diagnosis: PAIN IN THORACIC SPINE[ICD9: 724.1] Diagnosis: DERMATITIS NOS[ICD9: 692.9] Diagnosis: HYPERLIPIDEMIA NEC/NOS[ICD9: 272.4] Martita MONTERO BAILEE SIMONS [employer] CPT-4: 46436 07/17/2012 ([id number]) OFFICE/OUTPATIENT VISIT EST Diagnosis: HYPERLIPIDEMIA NEC/NOS[ICD9: 272.4] Diagnosis: OSTEOARTH NOS-L/LEG[ICD9: 715.96] Diagnosis: JOINT PAIN-L/LEG[ICD9: 719.46] Diagnosis: AC EMBL SUPRFCL UP EXT[ICD9: 453.81] Martita FISCHER AnaSohail IRENE [employer] CPT-4: 92842 03/20/2012 ([id number]) OFFICE/OUTPATIENT VISIT EST Diagnosis: PAIN, LOWER BACK[ICD9: 724.2] Diagnosis: Superficial venous thrombosis of arm[ICD9: 453.81] Diagnosis: Trigger finger, left[ICD9: 727.03] Martita RENTERIA Sofia SIMONS [employer] CPT-4: 53564 12/08/2011 OFFICE/OUTPATIENT VISIT EST Diagnosis: Knee pain[ICD9: 719.46] Diagnosis: Knee osteoarthritis[ICD9: 715.96] Diagnosis: Thoracic back pain[ICD9: 724.1] Diagnosis: HYPERLIPIDEMIA NEC/NOS[ICD9: 272.4] Martita MOROCHO Sofia SIMONS [employer] CPT-4: 70435 08/11/2011 ([id number]) OFFICE/OUTPATIENT VISIT, [facility] Martita HULL AnaSohail IRENE [employer] CPT-4: 72269 05/26/2010 Plan of Care Planned Activity Notes Codes Status Date Visit Diagnosis Plan: COPD (chronic obstructive pulmon jenn disease) Discussion: Smoking Cessation ICD-9 : 496 ICD-10 : J44.9 10/07/2019 Visit Diagnosis Plan: Mixed hyperlipidemia Discussion: Lipids next month with cardiology fwup Follow Up: 3 months ICD-9 : 272.4 ICD-10 : E78.2 10/07/2019 Appointment: Martita Simonstel: [phone] MEDICATION REVIEW 10/07/2019 Visit Diagnosis Plan: Other intervertebral disc degene ration, lumbar region Discussion: Stable on hydrocodone Add Vitamin D3 2000u daily Follow Up: 3 months ICD-9 : 722.52 ICD-10 : M51.36 07/01/2019 Visit Diagnosis Plan: Cephalgia Discussion: Discussed CT angiogram to rule out aneurysm but patient defers due to cost ICD-9 : 784.0 ICD-10 : R51 07/01/2019 Appointment: Martita Simons WPtel: [address] [place] [address] MEDICATION REVIEW 07/01/2019 Visit Diagnosis Plan: Mixed hyperlipidemia Discussion: Had lab done in December with Cardiology ICD-9 : 272.4 ICD-10 : E78.2 03/27/2019 Visit Diagnosis Plan: Nicotine dependence, unspecified , uncomplicated Discussion: Smoking cessation ICD-9 : 305.1 ICD-10 : F17.200 03/27/2019 Visit Diagnosis Plan: Atherosclerotic he [place] disease of [place] coronary artery without angina pectoris Discussion: Discussed cardiac rehab vs p ulmonary rehab Follow Up: 3 months ICD-9 : 414.00 ICD-10 : I25.10 03/27/2019 Appointment: Martita Simons WPtel: [address] [place] [address] MEDICATION REVIEW 03/27/2019 Visit Diagnosis Plan: Other intervertebral disc degene ration, lumbar region Discussion: Stable on hydrocodone UDS done Follow Up: 3 months ICD-9 : 722.52 ICD-10 : M51.36 12/25/2018 Visit Diagnosis Plan: Atherosclerotic he art disease of [place] coronary artery without angina pectoris Discussion: Smoking Cessation Continue c urrent meds and fwup with cardiology ICD-9 : 414.00 ICD-10 : I25.10 12/25/2018 Appointment: Martita Simonstel: [address] [place], [place] [phone] MEDICATION REVIEW 12/25/2018 Appointment: Martita Simonstel: [address] [place] [address] OFFICE SURGERY 08/22/2018 Visit Diagnosis Plan: Pain [...] : M19.031 06/19/2018 Appointment: Martita Simons WPtel: [address] [place] [address] MEDICATION REVIEW 06/19/2018 Appointment: Martita Simons WPtel: [address] [place] [address] US CANCELED 06/05/2018 Appointment: Martita Simons WPtel: [address] [place] [address] US CANCELED 05/08/2018 Visit Diagnosis Plan: Pain [...] : M25.561 03/02/2018 Appointment: Marian Juares [address] [place] [address] MEDICATION REVIEW 03/02/2018 Patient Education: Patient Medication Summary Completed 03/02/2018 Appointment: Martita Simons WPtel: [address] [place], [place] [phone] UA 02/01/2018 Patient Education: Patient Medication Summary Completed 02/01/2018 Visit Diagnosis Plan: Other synovitis and tenosynoviti s, right hand Discussion: Right wrist cleansed with alcohol and betadine and injected laterally with 1cc 1% lidocaine with 20mg kenalog and 2mg dexamethasone, tolerated well with no complications, neosporin and bandage applied ICD-9 : 727.05 ICD-10 : M65.841 08/31/2017 Appointment: Martita Simons WPtel: [address] [place] [address] ACUTE ILLNESS 08/31/2017 Patient Education: Patient Medication Summary Completed 08/31/2017 Appointment: Martita Simons WPtel: [address] [place], [place] [phone] 08/01/2017 Patient Education: Patient Medication Summary [...] : M47.22 07/18/2017 Appointment: Martita Simons WPtel: [address] [place], [place] [phone] MEDICATION REVIEW 07/18/2017 Patient Education: Patient Medication Summary Completed 07/18/2017 Visit Diagnosis Plan: Cervicalgia Discussion: Continue PT then fwup after done with PT ICD-9 : 723.1 ICD-10 : M54.2 04/24/2017 Visit Diagnosis Plan: Other intervertebral disc degene ration, lumbar region Discussion: Add PT For lumbar spine ICD-9 : 722.52 ICD-10 : M51.36 04/24/2017 Appointment: Martita Simons WPtel: [address] [place], [place] [phone] [place] MEDICATION REVIEW 04/24/2017 Patient Education: Patient Medication Summary Completed 04/24/2017 Patient Education: Patient Medication Summary Completed 03/22/2017 Care Plan: MRI NECK SPINE W/O DYE LOINC : 48115-8 Pending 03/22/2017 Visit Diagnosis Plan: Mixed hyperlipidemia [...] : M51.36 01/04/2017 Appointment: Martita Simons WPtel: [address] [place], [place] [phone] 01/03 lm`sl 01/03-Confirmed MEDICATION REVIEW 01/04/2017 Patient Education: Patient Medication Summary Completed 01/04/2017 Visit Diagnosis Plan: Other enthesopathies, not elsewh ere classified Discussion: Right wrist injection as above ICD-9 : 727.05 ICD-10 : M77.8 09/12/2016 Visit Diagnosis Plan: Mixed hyperlipidemia Discussion: Lab discussed Restart lipitor/lifestyle change ICD-9 : 272.4 ICD-10 : E78.2 09/12/2016 Appointment: Martita Simons WPtel: [address] [place], [place] [phone] 09/12 confirmed `sl INJECTION 09/12/2016 Patient Education: Patient Medication Summary Completed 09/12/2016 Appointment: Martita Simons WPtel: [address] [place], [place] [phone] [place] LAB 09/09/2016 Patient Education: Patient Medication Summary Completed 09/09/2016 Visit Diagnosis Plan: Nicotine dependence, unspecified , uncomplicated Discussion: Tobacco Abuse ICD-9 : 305.1 ICD-10 : F17.200 09/07/2016 Visit Diagnosis Plan: Chronic obstructiv e pulmonary disease with acute lower respiratory infection Discussion: Smoking Cessation Symbicort Check CXR ICD-9 : 496 ICD-10 : J44.0 09/07/2016 Visit Diagnosis Plan: Encounter for gene [facility] adult medical examination with abnormal findings Discussion: Update fasting lab Follow Up: 4 months ICD-9 : V70.0 ICD-10 : Z00.01 09/07/2016 Visit Diagnosis Plan: Mixed hyperlipidemia Discussion: Check CMP, Lipids ICD-9 : 272.4 ICD-10 : E78.2 09/07/2016 Visit Diagnosis Plan: Pain in right wrist Discussion: Will return for wrist injection ICD-9 : 719.43 ICD-10 : M25.531 09/07/2016 Appointment: Martita Simons WPtel: [address] [place], [place] [phone] 09/06 confirmed~sl Annual Well Visit 09/07/2016 Patient Education: Patient Medication Summary Completed 09/07/2016 Care Plan: CHEST X-RAY 2VW FRONTAL&LATL LOINC : 75408-1 Pending 09/07/2016 Visit Plan: Filled out [employer] sale to [facility] Insurance Paperwork 08/05/2016 Patient Education: Patient Medication Summary Completed 08/05/2016 Appointment: Martita Simons WPtel: [address] [place], [place] [phone] [place] UA 04/25/2016 Patient Education: Patient Medication Summary Completed 04/25/2016 Appointment: Martita Simons WPtel: [address] [place], [place] [phone] [place] LAB 09/15/2015 Patient Education: Patient Medication Summary Completed 09/15/2015 Visit Plan: SVN with Albuterol 0.083% Q4 hrs and Q2hrs prn. Supportive care. Rest, Fluids, Tylenol/Motrin prn fever or bodyaches. Notify if worsening symptoms. Daily back stretches, moist heat, Biofreeze prn Flexeril/Prednisone Notify if low back pain persists--will need x-rays Patient seeing Chiropracter [employer] 08/31/2015 Appointment: Martita Simons WPtel: [address] [place], [place] [phone] 08/28/15 vm cn 08/28/15 appt confirmed cn FOLLOW UP 08/31/2015 Patient Education: Patient Medication Summary Completed 08/31/2015 Appointment: Martita Simons WPtel: [address] [place], [place] [phone] UA 07/29/2015 Visit Plan: CMP, Lipids today Patient st opped chol meds 1week ago Continue hydrocodone 04/14/2015 Appointment: Martita Simons WPtel: [address] [place], [place] [phone] FOLLOW UP 04/14/2015 Patient Education: Patient Medication Summary Completed 04/14/2015 Appointment: Martita Simonstel: [address] [place], [place] [phone] [place] LAB 11/10/2014 Patient Education: Patient Medication Summary Completed 11/10/2014 Visit Plan: Fasting lab at end of September for Lipids/LFTs Continue hydrocodone at current dose Needs to be on low dose asprin 81mg daily With upcoming trip need to stop every 2hours and get out and stretch 10/07/2014 Appointment: Martita Simonstel: [address] [place], [place] [phone] [place] FOLLOW UP 10/07/2014 Patient Education: Patient Medication Summary Completed 10/07/2014 Visit Plan: Lab discussed Will keep meds the same Keep hydrocodone at current dose--discussed schedule change on May 05 05/01/2014 Appointment: Martita Simonstel: [address] [place], [place] [phone] 04/29 confirmed when in for labs; asked if he still wanted a reminder call on Monday and he said no he would be here. FOLLOW UP 05/01/2014 Patient Education: Patient Medication Summary Completed 05/01/2014 Appointment: Martita Simons WPtel: [address] [place], [place] [phone] 04/29/2014 Patient Education: Patient Medication Summary Completed 04/29/2014 Appointment: Martita Simonstel: [address] [place] [address] LAB 12/18/2013 Patient Education: Patient Medication Summary Completed 12/18/2013 Appointment: Martita Simons WPtel: [address] [place] [address] 12/16 FOLLOW UP 12/17/2013 Patient Education: Patient Medication Summary Completed 12/17/2013 Visit Plan: Check CXR Start SVNs with al buterol 0.083% QID 12/11/2012 Appointment: Martita Simonstel: [address] [place] [address] FOLLOW UP 12/11/2012 Patient Education: Patient Medication Summary Completed 12/11/2012 Visit Plan: Zithromax for 1wk Prednisone for 1wk Symbicort 160/4.5 2p BID 12/04/2012 Appointment: Martita Simons WPtel: [address] [place] [address] ACUTE ILLNESS 12/04/2012 Patient Education: Patient Medication Summary Completed 12/04/2012 Visit Plan: Continue nystatin/TAC cream and add Lamisil for next month No lipitor for next month If rash persists then will need biopsy Trial of chantix--warned of suicidal ideation/depression Call in 1mo on finger lesion and chantix 08/14/2012 Appointment: Martita Simons: [address] [place], [place] [phone] 08/13 no answer...08/13 pt called back and confirmed OFFICE SURGERY 08/14/2012 Patient Education: Patient Medication Summary Completed 08/14/2012 Appointment: Martita Simons WPtel: [address] [place], [place] [phone] FOLLOW UP 07/17/2012 Patient Education: Patient Medication Summary Completed 07/17/2012 Appointment: Martita Simons WPtel: [address] [place], [place] [phone] [place] Appointment was confirmed by CN on 06/29 07/04 pt called, in family, was in [place] just got yash k 07/03 - [facility] ACUTE ILLNESS 07/02/2012 Visit Plan: Obtain US results of RUE DC coumadin as has been 3mos and start Aspirin 325mg daily Check CMP, Lipids, CBC, ESR, CRP today 03/20/2012 Appointment: Martita Simons WPtel: [address] [place], [place] [phone] FOLLOW UP 03/20/2012 Patient Education: Patient Medication Summary Completed 03/20/2012 Appointment: Martita Simons WPtel: [address] [place], [place] [phone] Patient called 2 hours past appt. Said saw a specialist today and specialist is not concerned about blod clot so doesnt want to reschedule-CN FOLLOW UP 12/14/2011 Appointment: Martita Simons WPtel: [address] [place], [place] [phone] [place] FOLLOW UP 12/13/2011 Visit Plan: Continue coumadin--IM is fol lowing level--discussed will likely need 6-12wks Observe contusion to right lower back Fwup with ortho as scheduled 12/08/2011 Appointment: Martita Simons WPtel: [address] [place], [place] [phone] ACUTE ILLNESS 12/08/2011 Patient Education: Patient Medication Summary Completed 12/08/2011 Visit Plan: Check fasting lab when goes for pre-op lab including CMP, CBC, Lipids, TSH, Free T4, PSA, uric acid Needs colonoscopy Hydrocodone refilled #80 to [facility] 08/11/2011 Appointment: [facility] [phone] [facility] [facility] 08/11/2011 Patient Education: Patient Medication Summary Completed 08/11/2011 Visit Plan: Obtain most recent lab resul ts Cont current meds Explained that cannot refill pain meds without current rx Discussed Synvisc injections and see ortho as oxycontin for knee arthritis is strong pain med 05/26/2010 Appointment: Martita Simons [facility]Ptel[facility] [phone] [facility] NEW [facility] 05/26/2010 Patient Education: Patient Medication Summary Completed 05/26/2010 Instructions Comment . Filled out [employer] Paperwork . SVN with Albuterol 0.083% Q4hrs [...] and chantix . Obtain US results of RUE DC coumadin [...] acid Needs colonoscopy [facility] Obtain most recent lab results Cont [...]
--- OUTSIDE RECORDS SUMMARY | 2020-01-12 17:38 | XMS REPORT | CCD ---
Author Author Syd Simons D.O. Organization [facility] Address [address] [place] [address] Phone Care Team Providers Care Muleser Name Role Phone Martita Simons D.O., PP Unavailable CCM Unavailable Summary Purpose Interface Exchange Insurance Providers Payer name Policy type / Coverage type Covered republican ID Effective Begin Date Effective End Date [facility] Commercial Insurance [id number] Unknown Family history Brother Diagnosis Age At Onset No Family Disease Entered N/A Father Diagnosis Age At Onset No Family Disease Entered N/A Mother Diagnosis Age At Onset No Family Disease Entered N/A Social History Social History Element Codes Description Effective Dates Tobacco history SNOMED CT: 46051666 Current every day smoker 06/2012 Number of [...] hydrocodone 10 mg-acetaminophen 325 mg tablet RxNorm: 314411 1 Tablet(s) Oral Q6H as needed for pain 11/25/2019 11/25/2019 Inactive (Response to an electronic controlled substance refill request - RxReferenceNumber: [id number]|1|0|1) metoprolol succinate ER 25 mg tablet,extended release 24 hr RxNorm: 702067 1 Tablet(s) Oral QD 10/28/2019 10/28/2019 Inactive hydrocodone 10 mg-acetaminophen 325 mg tablet RxNorm: 199742 1 Tablet(s) PO Q6H as needed for pain 10/24/2019 11/24/2019 Inactive (Response to an electronic controlled substance refill request - RxReferenceNumber: [id number]|1|0|1) hydrocodone 10 mg-acetaminophen 325 mg tablet RxNorm: 422601 1 Tablet(s) PO Q6H as needed for pain 09/26/2019 10/23/2019 Inactive (Response to an electronic controlled substance refill request - RxReferenceNumber: [id number]|1|0|1) hydrocodone 10 mg-acetaminophen 325 mg tablet RxNorm: 087992 1 Tablet(s) PO Q6H as needed for pain 08/26/2019 09/25/2019 Inactive (Response to an electronic controlled substance refill request - RxReferenceNumber: [id number]|1|0|1) hydrocodone 10 mg-acetaminophen 325 mg tablet RxNorm: 170978 1 Tablet(s) PO Q6H as needed for pain 07/25/2019 08/25/2019 Inactive (Response to an electronic controlled substance refill request - RxReferenceNumber: [id number]|1|0|1) hydrocodone 10 mg-acetaminophen 325 mg tablet RxNorm: 327238 1 Tablet(s) PO Q6H as needed for pain 06/26/2019 07/24/2019 Inactive (Response to an electronic controlled substance refill request - RxReferenceNumber: [id number]|1|0|1) hydrocodone 10 mg-acetaminophen 325 mg tablet RxNorm: 504057 1 Tablet(s) PO Q6H as needed for pain 05/28/2019 06/25/2019 Inactive (Response to an electronic controlled substance refill request - RxReferenceNumber: [id number]|1|0|1) hydrocodone 10 mg-acetaminophen 325 mg tablet RxNorm: 322355 1 Tablet(s) PO Q6H as needed for pain 02/25/2019 05/27/2019 Inactive (Response to an electronic controlled substance refill request - RxReferenceNumber: [id number]|1|0|1) hydrocodone 10 mg-acetaminophen 325 mg tablet RxNorm: 728858 1 Tablet(s) PO Q6H as needed for pain 11/26/2018 02/24/2019 Inactive (Response to an electronic controlled substance refill request - RxReferenceNumber: [id number]|1|0|1) hydrocodone 10 mg-acetaminophen 325 mg tablet RxNorm: 136810 1 Tablet(s) PO Q6H as needed for pain 10/30/2018 11/25/2018 Inactive (Response to an electronic controlled substance refill request - RxReferenceNumber: [id number]|1|0|1) hydrocodone 10 mg-acetaminophen 325 mg tablet RxNorm: 398791 1 Tablet(s) PO Q6H as needed for pain 09/26/2018 10/29/2018 Inactive (Response to an electronic controlled substance refill request - RxReferenceNumber: [id number]|1|0|1) hydrocodone 10 mg-acetaminophen 325 mg tablet RxNorm: 335135 1 Tablet(s) PO Q6H as needed for pain 08/30/2018 09/25/2018 Inactive (Response to an electronic controlled substance refill request - RxReferenceNumber: [id number]|1|0|1) hydrocodone 10 mg-acetaminophen 325 mg tablet RxNorm: 653844 1 Tablet(s) PO Q6H as needed for pain 08/01/2018 08/29/2018 Inactive (Response to an electronic controlled substance refill request - RxReferenceNumber: [id number]|1|0|1) hydrocodone 10 mg-acetaminophen 325 mg tablet RxNorm: 586638 1 Tablet(s) PO Q6H as needed for pain 07/04/2018 07/31/2018 Inactive (Response to an electronic controlled substance refill request - RxReferenceNumber: [id number]|1|0|1) hydrocodone 10 mg-acetaminophen 325 mg tablet RxNorm: 898764 1 Tablet(s) PO Q6H as needed for pain 05/31/2018 07/03/2018 Inactive (Response to an electronic controlled substance refill request - RxReferenceNumber: [id number]|1|0|1) hydrocodone 10 mg-acetaminophen 325 mg tablet RxNorm: 608842 1 Tablet(s) PO Q6H as needed for pain 05/01/2018 05/30/2018 Inactive (Response to an electronic controlled substance refill request - RxReferenceNumber: [id number]|1|0|1) hydrocodone 10 mg-acetaminophen 325 mg tablet RxNorm: 585629 1 Tablet(s) PO Q6H as needed for pain 04/03/2018 04/30/2018 Inactive (Response to an electronic controlled substance refill request - RxReferenceNumber: [id number]|1|0|1) hydrocodone 10 mg-acetaminophen 325 mg tablet RxNorm: 319831 1 Tablet(s) PO Q6H as needed for pain 02/26/2018 04/02/2018 Inactive (Response to an electronic controlled substance refill request - RxReferenceNumber: [id number]|1|0|1) clotrimazole-betamethasone 1 %-0.05 % topical cream RxNorm: 337838 TOP As Directed CALL IF NO IMPROVEMENT IN 2 WEEKS 01/30/2018 01/29/2018 Inact kole [SAVINGS FOR UNINSURED PATIENTS -- BIN:[id number], PCN: [id number], Group: [facility], ID# [id number], Process claim through [employer], for questions: . THIS IS NOT INSURANCE.] hydrocodone 10 mg-acetaminophen 325 mg tablet RxNorm: 233882 1 Tablet(s) PO Q6H as needed for pain 01/29/2018 02/25/2018 Inactive (Response to an electronic controlled substance refill request - RxReferenceNumber: [id number]|1|0|1) hydrocodone 10 mg-acetaminophen 325 mg tablet RxNorm: 055510 1 Tablet(s) PO Q6H as needed for pain 12/28/2017 01/28/2018 Inactive (Response to an electronic controlled substance refill request - RxReferenceNumber: [id number]|1|0|1) hydrocodone 10 mg-acetaminophen 325 mg tablet RxNorm: 230601 1 Tablet(s) PO Q6H as needed for pain 11/29/2017 12/27/2017 Inactive (Response to an electronic controlled substance refill request - RxReferenceNumber: [id number]|1|0|1) hydrocodone 10 mg-acetaminophen 325 mg tablet RxNorm: 171711 1 Tablet(s) PO Q6H as needed for pain 11/02/2017 11/28/2017 Inactive (Response to an electronic controlled substance refill request - RxReferenceNumber: [id number]|1|0|1) hydrocodone 10 mg-acetaminophen 325 mg tablet RxNorm: 493254 1 Tablet(s) PO Q6H as needed for pain 10/02/2017 11/01/2017 Inactive (Response to an electronic controlled substance refill request - RxReferenceNumber: [id number]|1|0|1) hydrocodone 10 mg-acetaminophen 325 mg tablet RxNorm: 092565 1 Tablet(s) PO Q6H as needed for pain 08/30/2017 10/01/2017 Inactive (Response to an electronic controlled substance refill request - RxReferenceNumber: [id number]|1|0|1) hydrocodone 10 mg-acetaminophen 325 mg tablet RxNorm: 119650 1 Tablet(s) PO Q6H as needed for pain 08/01/2017 08/29/2017 Inactive (Response to an electronic controlled substance refill request - RxReferenceNumber: [id number]|1|0|1) hydrocodone 10 mg-acetaminophen 325 mg tablet RxNorm: 238614 1 Tablet(s) PO Q6H as needed for pain 06/26/2017 07/31/2017 Inactive (Response to an electronic controlled substance refill request - RxReferenceNumber: [id number]|1|0|1) hydrocodone 10 mg-acetaminophen 325 mg tablet RxNorm: 516431 1 Tablet(s) PO Q6H as needed for pain 06/26/2017 06/30/2019 Inactive (Response to an electronic controlled substance refill request - RxReferenceNumber: [id number]|1|0|1) hydrocodone 10 mg-acetaminophen 325 mg tablet RxNorm: 304725 1 Tablet(s) PO Q6H as needed for pain 03/27/2017 06/25/2017 Inactive (Response to an electronic controlled substance refill request - RxReferenceNumber: [id number]|1|0|1) hydrocodone 10 mg-acetaminophen 325 mg tablet RxNorm: 681341 1 Tablet(s) PO Q6H as needed for pain 02/23/2017 03/26/2017 Inactive (Response to an electronic controlled substance refill request - RxReferenceNumber: [id number]|1|0|1) hydrocodone 10 mg-acetaminophen 325 mg tablet RxNorm: 301895 1 Tablet(s) PO Q6H as needed for pain 01/24/2017 02/22/2017 Inactive (Response to an electronic controlled substance refill request - RxReferenceNumber: [id number]|1|0|1) hydrocodone 10 mg-acetaminophen 325 mg tablet RxNorm: 380199 1 Tablet(s) PO Q6H as needed for pain 12/27/2016 06/30/2019 Inactive (Response to an electronic controlled substance refill request - RxReferenceNumber: [id number]|1|0|1) hydrocodone 10 mg-acetaminophen 325 mg tablet RxNorm: 578952 1 Tablet(s) PO Q6H as needed for pain 12/27/2016 01/23/2017 Inactive (Response to an electronic controlled substance refill request - RxReferenceNumber: [id number]|1|0|1) hydrocodone 10 mg-acetaminophen 325 mg tablet RxNorm: 756655 1 Tablet(s) PO Q6H as needed for pain 11/23/2016 12/26/2016 Inactive (Response to an electronic controlled substance refill request - RxReferenceNumber: [id number]|1|0|1) hydrocodone 10 mg-acetaminophen 325 mg tablet RxNorm: 870640 1 Tablet(s) PO Q6H as needed for pain 10/20/2016 11/22/2016 Inactive (Response to an electronic controlled substance refill request - RxReferenceNumber: [id number]|1|0|1) hydrocodone 10 mg-acetaminophen 325 mg tablet RxNorm: 288627 1 Tablet(s) PO Q6H as needed for pain 09/26/2016 10/19/2016 Inactive (Response to an electronic controlled substance refill request - RxReferenceNumber: [id number]|1|0|1) hydrocodone 10 mg-acetaminophen 325 mg tablet RxNorm: 848615 1 Tablet(s) PO Q6H as needed for pain 07/27/2016 09/25/2016 Inactive (Response to an electronic controlled substance refill request - RxReferenceNumber: [id number]|1|0|1) hydrocodone 10 mg-acetaminophen 325 mg tablet RxNorm: 614341 1 Tablet(s) PO Q6H as needed for pain 05/04/2016 07/26/2016 Inactive (Response to an electronic controlled substance refill request - RxReferenceNumber: [id number]|1|0|1) hydrocodone 10 mg-acetaminophen 325 mg tablet RxNorm: 308482 1 Tablet(s) PO Q6H as needed for pain 03/31/2016 05/03/2016 Inactive (Response to an electronic controlled substance refill request - RxReferenceNumber: [id number]|1|0|1) citalopram 10 mg tablet RxNorm: 845090 1 Tablet(s) PO QD 09/28/2015 0 09/27/2015 Inactive citalopram 10 mg tablet RxNorm: 761604 1 Tablet(s) PO QD 09/28/2015 0 09/06/2016 Inactive Wellbutrin SR 150 mg tablet,sustained-release RxNorm: 229923 1 Tablet(s) PO QAM 09/25/2015 09/06/2016 Inactive prednisone 20 mg tablet RxNorm: 631282 1 Tablet(s) PO T ID for 3 days then 1 po BID for 3 days then one daily for 3 days 08/31/2015 09/06/2016 Inactiv e cyclobenzaprine 10 mg tablet RxNorm: 253983 1 Tablet(s) PO TID as needed for muscle spasm 08/31/2015 07/17/2017 Inactive hydrocodone 10 mg-acetaminophen 325 mg tablet RxNorm: 141619 1 Tablet(s) PO Q6H as needed for pain 08/26/2015 03/30/2016 Inactive (Response to an electronic controlled substance refill request - RxReferenceNumber: [id number]|1|0|1) hydrocodone 10 mg-acetaminophen 325 mg tablet RxNorm: 459313 1 Tablet(s) PO Q6H as needed for pain 07/28/2015 08/25/2015 Inactive (Response to an electronic controlled substance refill request - RxReferenceNumber: [id number]|1|0|1) hydrocodone 10 mg-acetaminophen 325 mg tablet RxNorm: 308875 1 Tablet(s) PO Q6H as needed for pain 06/23/2015 07/27/2015 Inactive (Response to an electronic controlled substance refill request - RxReferenceNumber: [id number]|1|0|1) hydrocodone 10 mg-acetaminophen 325 mg tablet RxNorm: 648777 1 Tablet(s) PO Q6H as needed for pain 05/21/2015 06/22/2015 Inactive (Response to an electronic controlled substance refill request - RxReferenceNumber: [id number]|1|0|1) azithromycin 250 mg tablet RxNorm: 753926 2 Tablet(s) P O on day one, then one tablet on days 2 - 5 04/27/2015 08/30/2015 Inactive hydrocodone 10 mg-acetaminophen 325 mg tablet RxNorm: 566109 1 Tablet(s) PO Q6H as needed for pain 03/25/2015 05/20/2015 Inactive (Response to an electronic controlled substance refill request - RxReferenceNumber: [id number]|1|0|1) hydrocodone 10 mg-acetaminophen 325 mg tablet RxNorm: 986588 1 Tablet(s) PO Q6H as needed for pain 02/24/2015 03/24/2015 Inactive (Response to an electronic controlled substance refill request - RxReferenceNumber: [id number]|1|0|1) hydrocodone 10 mg-acetaminophen 325 mg tablet RxNorm: 789290 1 Tablet(s) PO Q6H as needed for pain 01/23/2015 02/23/2015 Inactive (Response to an electronic controlled substance refill request - RxReferenceNumber: [id number]|1|0|1) hydrocodone 10 mg-acetaminophen 325 mg tablet RxNorm: 993961 1 Tablet(s) PO Q6H as needed for pain 12/23/2014 01/22/2015 Inactive (Response to an electronic controlled substance refill request - RxReferenceNumber: [id number]|1|0|1) hydrocodone 10 mg-acetaminophen 325 mg tablet RxNorm: 794235 1 Tablet(s) PO Q6H as needed for pain 11/24/2014 12/22/2014 Inactive (Response to an electronic controlled substance refill request - RxReferenceNumber: [id number]|1|0|1) hydrocodone 10 mg-acetaminophen 325 mg tablet RxNorm: 577842 1 Tablet(s) PO Q6H as needed for pain 10/28/2014 11/23/2014 Inactive (Response to an electronic controlled substance refill request - RxReferenceNumber: [id number]|1|0|1) hydrocodone 10 mg-acetaminophen 325 mg tablet RxNorm: 766642 1 Tablet(s) PO Q6H as needed for pain 09/25/2014 10/27/2014 Inactive (Response to an electronic controlled substance refill request - RxReferenceNumber: [id number]|1|0|1) Lipitor 80 mg tablet RxNorm: 132551 1 Tablet(s) PO QHS 09/24/2014 Inactive hydrocodone 10 mg-acetaminophen 325 mg tablet RxNorm: 122111 1 Tablet(s) PO Q6H as needed for pain 07/30/2014 09/24/2014 Inactive (Response to an electronic controlled substance refill request - RxReferenceNumber: [id number]|1|0|1) hydrocodone 10 mg-acetaminophen 325 mg tablet RxNorm: 622752 1 Tablet(s) PO Q6H as needed for pain 05/27/2014 07/29/2014 Inactive (Response to an electronic controlled substance refill request - RxReferenceNumber: [id number]|1|0|1) clotrimazole-betamethasone 1 %-0.05 % topical cream RxNorm: 387589 TOP As Directed 05/01/2014 08/30/2015 Inactive [SAVINGS FOR UNI NSURED PATIENTS -- BIN:[id number], PCN: [id number], Group: [id number], ID# [id number], Process claim through [employer], for questions: . THIS IS NOT INSURANCE.] Lipitor 80 mg tablet RxNorm: 942000 1 Tablet(s) PO QHS 04/28/2014 Inactive hydrocodone 10 mg-acetaminophen 325 mg tablet RxNorm: 457695 1 Tablet(s) PO Q6H as needed for pain 04/28/2014 05/26/2014 Inactive (Response to an electronic controlled substance refill request - RxReferenceNumber: [id number]|1|0|1) hydrocodone 10 mg-acetaminophen 325 mg tablet RxNorm: 904598 1 Tablet(s) PO Q6H as needed for pain 03/27/2014 04/27/2014 Inactive (Response to an electronic controlled substance refill request - RxReferenceNumber: [id number]|1|0|1) hydrocodone 10 mg-acetaminophen 325 mg tablet RxNorm: 463236 1 Tablet(s) PO Q6H as needed for pain 12/20/2013 12/20/2013 Inactive (Appended: Co ntrolled substance eRx refill - RxReferenceNumber: [id number]|1|0|1) hydrocodone 10 mg-acetaminophen 325 mg tablet RxNorm: 472218 TAKE 1 TABLET BY MOUTH EVERY 6 HOURS NEEDED FOR PAIN 12/20/2013 01/12/2014 Inactive (Response to an electronic controlled substance refill request - RxReferenceNumber: [id number]|1|0|1) hydrocodone 10 mg-acetaminophen 325 mg tablet RxNorm: 570264 1 Tablet(s) PO Q6H as needed for pain 09/03/2013 12/19/2013 Inactive (Appended: Co ntrolled substance eRx refill - RxReferenceNumber: [id number]|1|0|1) hydrocodone 10 mg-acetaminophen 325 mg tablet RxNorm: 543649 Tablet(s) PO TAKE 1 TABLET BY MOUTH EVERY 6 HOURS NEEDED FOR PAIN 08/08/2013 09/03/2013 Inactive (Appended: Controlled substance eRx refill - RxReferenceNumber: [id number]|1|0|1) hydrocodone 10 mg-acetaminophen 325 mg tablet RxNorm: 044952 Tablet(s) PO TAKE 1 TABLET BY MOUTH EVERY 6 HOURS NEEDED FOR PAIN 07/11/2013 08/07/2013 Inactive (Appended: Controlled substance eRx refill - RxReferenceNumber: [id number]|1|0|1) hydrocodone 10 mg-acetaminophen 325 mg tablet RxNorm: 255370 2 Tablet(s) PO TAKE 1 TABLET BY MOUTH EVERY 6 HOURS NEEDED FOR PAIN 06/12/2013 3 Inactive (Appended: Controlled substance eRx ref ill - RxReferenceNumber: [id number]|1|0|1) hydrocodone 10 mg-acetaminophen 325 mg tablet RxNorm: 841067 2 1 Tablet(s) PO Q6H NEEDED FOR PAIN 05/15/2013 06/12/2013 Inactive (Appended: Co ntrolled substance eRx refill - RxReferenceNumber: [id number]|1|0|1) hydrocodone 10 mg-acetaminophen 325 mg tablet RxNorm: 477888 2 Tablet(s) PO TAKE 1 TO 2 TABLETS BY MOUTH EVERY 6 HOURS NEEDED FOR PAIN 04/18/2013 No Stop Date Active (Appended: Controlled substa nce eRx refill - RxReferenceNumber: [id number]|1|0|1) hydrocodone 10 mg-acetaminophen 325 mg tablet RxNorm: 239168 2 Tablet(s) PO TAKE 1 TO 2 TABLETS BY MOUTH EVERY 6 HOURS NEEDED FOR PAIN 03/19/2013 No Stop Date Active (Appended: Controlled substa nce eRx refill - RxReferenceNumber: [id number]|1|0|1) hydrocodone 10 mg-acetaminophen 325 mg tablet RxNorm: 377389 2 Tablet(s) PO TAKE 1 TO 2 TABLETS BY MOUTH EVERY 6 HOURS NEEDED FOR PAIN 02/06/2013 Inactive (Appended: Controlled substance eRx refi ll - RxReferenceNumber: [id number]|1|0|1) hydrocodone 10 mg-acetaminophen 325 mg tablet RxNorm: 350171 2 Tablet(s) PO TAKE 1 TO 2 TABLETS BY MOUTH EVERY 6 HOURS NEEDED FOR PAIN 01/08/201304/2013 Inactive (Appended: Controlled substance eRx ref ill - RxReferenceNumber: [id number]|1|0|1) Zithromax 250 mg tablet RxNorm: 562862 2 Tablet(s) PO QD 12/04/2012 0 12/10/2012 Inactive prednisone 20 mg tablet RxNorm: 550821 1 Tablet(s) PO BID 12/04/2012 12/10/2012 Inactive atorvastatin 40 mg tablet RxNorm: 134362 1 Tablet(s) PO QD 11/09/19 13 12/17/2013 Inactive hydrocodone 10 mg-acetaminophen 325 mg tablet RxNorm: 638706 2 Tablet(s) PO TAKE 1 TO 2 TABLETS BY MOUTH EVERY 6 HOURS NEEDED FOR PAIN 10/18/201205/2013 Inactive (Appended: Controlled substance eRx ref ill - RxReferenceNumber: [id number]|1|0|1) hydrocodone 10 mg-acetaminophen 325 mg tablet RxNorm: 719926 2 1-2 Tablet(s) PO Q6H as needed for pain 09/06/2012 10/18/2012 Inactive Lamisil 250 mg tablet RxNorm: 912520 1 Tablet(s) PO QD 08/14/2012 Inactive atorvastatin 40 mg tablet RxNorm: 632644 1 Tablet(s) PO QD 08/08/19 13 11/05/2012 Inactive prednisone 20 mg tablet RxNorm: 647528 1 Tablet(s) PO BID 07/17/2012 07/23/2012 Inactive Wellbutrin SR 150 mg tablet,extended release RxNorm: 776273 1 T ablet(s) PO BID 07/17/2012 08/13/2012 Inactive meloxicam 15 mg tablet RxNorm: 416821 1 Tablet(s) PO QD for pain 07/16/2012 Inactive atorvastatin 40 mg tablet RxNorm: 009189 1 Tablet(s) PO QD 06/27/2008/07/2012 Inactive hydrocodone-acetaminophen 10 mg-325 mg tablet RxNorm: 319578 2 1-2 Tablet(s) PO Q6H as needed for pain 05/23/2012 No Stop Date Active hydrocodone-acetaminophen 10 mg-325 mg tablet RxNorm: 789401 2 1-2 Tablet(s) PO Q6H as needed for pain 04/24/2012 No Stop Date Active hydrocodone-acetaminophen 10 mg-325 mg tablet RxNorm: 897410 2 1-2 Tablet(s) PO Q6H as needed for pain 02/08/2012 No Stop Date Active hydrocodone-acetaminophen 10 mg-325 mg Tab RxNorm: 4043929 1-2 Tablet(s) PO Q6H as needed for pain 01/02/2012 No Stop Date Active hydrocodone-acetaminophen 10 mg-325 mg Tab RxNorm: 0528054 1-2 Tablet(s) PO Q6H as needed for pain 11/29/2011 No Stop Date Active hydrocodone-acetaminophen 10 mg-325 mg Tab RxNorm: 7276685 1-2 Tablet(s) PO Q6H as needed for pain 10/24/2011 No Stop Date Active hydrocodone-acetaminophen 10 mg-325 mg Tab RxNorm: 0180015 1-2 Tablet(s) PO Q6H as needed for pain 10/07/2011 No Stop Date Active simvastatin 40 mg Tab RxNorm: 485931 1 Tablet(s) PO QHS 08/11/2011 Inactive clopidogrel 75 mg tablet RxNorm: 351932 1 Tablet(s) PO QD No Start Da te Active Symbicort 160 mcg-4.5 mcg/actuation HFA aerosol inhaler RxNo rm: 5860690 2 INH QD No Start Date Active atorvastatin 40 mg tablet RxNorm: 314194 1 Tablet(s) PO QD No Start D ate Active aspirin 81 mg tablet RxNorm: 035510 1 Tablet(s) PO QD No Start Date Active Vitamin D3 2,000 unit tablet RxNorm: 041768 3 Tablet(s) PO No Start D ate Active lisinopril 5 mg tablet RxNorm: 520641 1 Tablet(s) PO QD No Start Date Active hydrocodone-acetaminophen 10 mg-325 mg Tab RxNorm: 7803961 1-2 Tablet(s) PO Q6H as needed for pain No Start Date 10/06/2011 Inactive Wellbutrin SR 150 mg tablet,sustained-release RxNorm: 197599 1 Tablet(s) PO QAM No Start Date 09/24/2015 Inactive metoprolol succinate ER 25 mg tablet,extended release 24 hr RxNorm: 514829 1 Tablet(s) PO QD No Start Date 10/27/2019 Inactive OxyContin 15 mg 12 hr Tab RxNorm: 2025723 1 Tablet(s) PO BID No Sta rt Date 08/10/2011 Inactive warfarin 5 mg Tab RxNorm: 887179 1 Tablet(s) PO QD No Start Date 03/01 Inactive albuterol sulfate 1.25 mg/3 mL Neb Solution RxNorm: 560264 1 Unit Dose INH prn wheezing, congestion, shortness of breath No Start Date 04/30/2014 Inacti ve azithromycin 250 mg tablet RxNorm: 256000 2 Tablet(s) P O on day one, then one tablet on days 2 - 5 No Start Date 04/26/2015 Inactive warfarin 10 mg Tab RxNorm: 140049 1 Tablet(s) PO QOD No Start Date Inactive Symbicort Inhl RxNorm: Inhalation No Start Date 12/16/2013 Inactive Trilipix 135 mg Cap RxNorm: 868657 1 Capsule(s) PO QD No Start Date 0 12/07/2011 Inactive Chantix Starting Month Box 0.5 mg (11)-1 mg (42) table ts in dose pack RxNorm: 301090 Tablet(s) PO as directed No Start Date 12/03/2012 Inactive clotrimazole-betamethasone 1 %-0.05 % topical cream RxNorm: 943129 TOP As Directed No Start Date 04/30/2014 Inactive nystatin-triamcinolone 100,000 unit/g-0.1 % Topical Cream Rx Norm: 1955316 Application TOP BID for 2-4weeks No Start Date 12/03/2012 Inactive Lovastatin 20 mg Tab RxNorm: 489756 1 Tablet(s) PO QHS No Start Date 08/10/2011 Inactive krill oil oral RxNorm: 28803 oral No Start Date 06/30/2019 Inacti ve warfarin 7.5 mg Tab RxNorm: 188122 1 Tablet(s) PO QOD No Start Date 1 09/16/2011 Inactive Lipitor 80 mg tablet RxNorm: 561599 1 Tablet(s) PO QHS No Start Date 04/27/2014 Inactive simvastatin 40 mg Tab RxNorm: 305836 1 Tablet(s) PO QHS No Start Da te 08/10/2011 Inactive Gemfibrozil 600 mg Tab RxNorm: 015282 1 Tablet(s) PO QHS No Start D ate 08/10/2011 Inactive Medication Administered No Medication Administered data Immunizations No Immunization data Results Observation Observation Code Item Item Code Result Date S ervice Location COMPLETE BLOOD COUNT [id number] WBC 9.7 10e9/L 06/19/20 18 Unknown COMPLETE BLOOD COUNT [id number] RBC 5.35 10e12/L 2017 Unknown COMPLETE BLOOD COUNT [id number] HEMOGLOBIN 17.1 g/dL 06/19/20 18 Unknown COMPLETE BLOOD COUNT [id number] HEMATOCRIT 52.4 % 06/19/20 18 Unknown COMPLETE BLOOD COUNT [id number] MCV 97.9 fL 8 Unknown COMPLETE BLOOD COUNT [id number] MCH 32.0 pg 8 Unknown COMPLETE BLOOD COUNT [id number] MCHC 32.6 g/dL 8 Unknown COMPLETE BLOOD COUNT [id number] PLATELET COUNT 257 10e9/L Unknown COMPLETE BLOOD COUNT [id number] Mean Plt Volume 11.2 fL Unknown COMPLETE BLOOD COUNT [id number] Neut Auto 54.6 % 8 Unknown COMPLETE BLOOD COUNT [id number] Lymph Auto 33.3 % 06/19/20 18 Unknown COMPLETE BLOOD COUNT [id number] Crosby Auto 9.1 % 8 Unknown COMPLETE BLOOD COUNT [id number] RDW 14.4 % 8 Unknown COMPLETE BLOOD COUNT [id number] Eos Auto 2.6 % 8 Unknown COMPLETE BLOOD COUNT [id number] Baso Auto 0.4 % 8 Unknown COMPLETE BLOOD COUNT [id number] Neutrophil Abs 5.30 10e9/L Unknown COMPLETE BLOOD COUNT [id number] Lymphocyte Abs 3.23 10e9/L Unknown COMPLETE BLOOD COUNT [id number] Monocyte Abs 0.88 10e9/L 06/01 Unknown COMPLETE BLOOD COUNT [id number] Eosinophil Abs 0.25 10e9/L Unknown COMPLETE BLOOD COUNT [id number] RDW-SD 51.8 fL 201 8 Unknown COMPLETE BLOOD COUNT [id number] Basophil Abs 0.04 10e9/L 06/01 Unknown [facility] 62279 Cholesterol 222 mg/dL 06/19/2018 Unkno wn [facility] 62224 Triglyceride 111 mg/dL 06/19/2018 Unkn own [facility] 15882 HDL CHOLESTEROL 37 mg/dL 06/19/2018 U nknown [facility] 15332 Chol/HDL Ratio 6.00 ratio 06/19/2018 U nknown [facility] 19567 NON-HDL Chol 185 mg/dL 06/19/2018 Unkn own [facility] 19817 LDL Cholesterol 163 mg/dL 06/19/2018 U nknown VITAMIN B 12 06604 VITAMIN B12 532 pg/mL 06/19/2018 Unkn own THYROID STIMULATING HORMONE 74276 TSH 2.685 uIU/mL 06/19/2018 Unknown COMPREHENSIVE METABOLIC 38229 AST 15 U/L 2017 Unknown COMPREHENSIVE METABOLIC 89609 ALT 21 U/L 2017 Unknown COMPREHENSIVE METABOLIC 95697 BUN 16 mg/dL 2017 Unknown COMPREHENSIVE METABOLIC 83715 ALBUMIN 4.1 g/dL 2017 Unknown COMPREHENSIVE METABOLIC 85575 CHLORIDE 99 mmol/L 2017 Unknown COMPREHENSIVE METABOLIC 72345 Bili Total 0.4 mg/dL 06/19 Unknown COMPREHENSIVE METABOLIC 27948 ALK PHOS 43 U/L 2017 Unknown COMPREHENSIVE METABOLIC 08751 SODIUM 136 mmol/L 06/19 Unknown COMPREHENSIVE METABOLIC 33127 CREATININE 0.82 mg/dL 06/01 Unknown COMPREHENSIVE METABOLIC 69607 CALCIUM 9.5 mg/dL 2017 Unknown COMPREHENSIVE METABOLIC 14378 POTASSIUM 5.2 mmol/L 06/19 Unknown COMPREHENSIVE METABOLIC 65126 Total Protein 6.7 g/dL Unknown COMPREHENSIVE METABOLIC 25927 Glucose 81 mg/dL 2017 Unknown COMPREHENSIVE METABOLIC 53323 Bicarbonate 30 mmol/L 06/01 Unknown COMPREHENSIVE METABOLIC 12597 AGAP 7 mmol/L 2017 Unknown FREE T4 93749 T4 Free 0.85 ng/dL 06/19/2018 Unknown GFR CALC [id number] GFR Non Afr Amr >60 mL/min 06/19/2018 Un known GFR CALC 7643982 GFR Afr Amr >60 mL/min 06/19/2018 Unknow n VITAMIN D TOTAL (25 HYDROXY) 15771 Vitamin D 25 OH 24.1 ng/mL 06/19/2018 Unknown PSA EQUIMOLAR TROY 03921 PSA Total 0.88 ng/mL 8 Unknown GFR CALC 4886602 GFR Afr Amr >60 mL/min 09/09/2016 Unknow n GFR CALC 5110591 GFR Non Afr Amr >60 mL/min 09/09/2016 Un known COMPLETE BLOOD COUNT [id number] WBC 11.7 10e9/L 017 Unknown COMPLETE BLOOD COUNT 6293169 RBC 5.54 10e12/L 2016 Unknown COMPLETE BLOOD COUNT 2879414 HEMOGLOBIN 17.6 g/dL 09/09/19 17 Unknown COMPLETE BLOOD COUNT [id number] HEMATOCRIT 52.3 % 09/09/19 17 Unknown COMPLETE BLOOD COUNT 3974810 MCV 94.4 fL 7 Unknown COMPLETE BLOOD COUNT 8874271 MCH 31.8 pg 7 Unknown COMPLETE BLOOD COUNT 3451243 MCHC 33.7 g/dL 7 Unknown COMPLETE BLOOD COUNT 0656507 PLATELET COUNT 259 10e9/L 04/2017 Unknown COMPLETE BLOOD COUNT 7485305 Mean Plt Volume 11.2 fL 04/2017 Unknown COMPLETE BLOOD COUNT 0500713 Neut Auto 53.6 % 7 Unknown COMPLETE BLOOD COUNT 2323704 Lymph Auto 36.2 % 09/09/19 17 Unknown COMPLETE BLOOD COUNT 6649988 Crosby Auto 7.9 % 7 Unknown COMPLETE BLOOD COUNT 0069942 RDW 14.2 % 7 Unknown COMPLETE BLOOD COUNT 8621623 Eos Auto 2.1 % 7 Unknown COMPLETE BLOOD COUNT 5632367 Baso Auto 0.2 % 7 Unknown COMPLETE BLOOD COUNT 6928518 Neutrophil Abs 6.27 10e9/L Unknown COMPLETE BLOOD COUNT [id number] Lymphocyte Abs 4.24 10e9/L Unknown COMPLETE BLOOD COUNT 8637634 Monocyte Abs 0.92 10e9/L 08/31 Unknown COMPLETE BLOOD COUNT 0464621 Eosinophil Abs 0.25 10e9/L Unknown COMPLETE BLOOD COUNT 4185579 RDW-SD 48.1 fL 02/10/201 7 Unknown COMPLETE BLOOD COUNT 3194005 Basophil Abs 0.02 10e9/L 08/31 Unknown COMPREHENSIVE METABOLIC 74414 AST 19 U/L 2016 Unknown COMPREHENSIVE METABOLIC 21972 ALT 25 U/L 2016 Unknown COMPREHENSIVE METABOLIC 22134 BUN 16 mg/dL 2016 Unknown COMPREHENSIVE METABOLIC 44868 ALBUMIN 4.8 g/dL 2016 Unknown COMPREHENSIVE METABOLIC 93406 CHLORIDE 100 mmol/L 09/09 Unknown COMPREHENSIVE METABOLIC 94405 Bili Total 0.7 mg/dL 09/09 Unknown COMPREHENSIVE METABOLIC 67552 ALK PHOS 50 U/L 2016 Unknown COMPREHENSIVE METABOLIC 23702 SODIUM 136 mmol/L 09/09 Unknown COMPREHENSIVE METABOLIC 78436 CREATININE 0.98 mg/dL 08/31 Unknown COMPREHENSIVE METABOLIC 00699 CALCIUM 9.8 mg/dL 2016 Unknown COMPREHENSIVE METABOLIC 02139 POTASSIUM 4.6 mmol/L 09/09 Unknown COMPREHENSIVE METABOLIC 71917 Total Protein 7.5 g/dL Unknown COMPREHENSIVE METABOLIC 19393 Glucose 104 mg/dL 2016 Unknown COMPREHENSIVE METABOLIC 54811 Bicarbonate 27 mmol/L 08/31 Unknown COMPREHENSIVE METABOLIC 60183 AGAP 9 mmol/L 2016 Unknown FREE T4 61458 T4 Free 1.04 ng/dL 09/09/2016 Unknown THYROID STIMULATING HORMONE 57649 TSH 1.618 uIU/mL 09/09/2016 Unknown LIPID GROUP 30310 Cholesterol 251 mg/dL 09/09/2016 Unkno wn LIPID GROUP 80146 Triglyceride 153 mg/dL 09/09/2016 Unkn own LIPID GROUP 84162 HDL CHOLESTEROL 33 mg/dL 09/09/2016 U nknow LIPID GROUP 22933 Chol/HDL Ratio 7.61 ratio 09/09/2016 U nknow LIPID GROUP 86403 NON-HDL Chol 218 mg/dL 09/09/2016 Unkn own LIPID GROUP 40762 LDL Cholesterol 187 mg/dL 09/09/2016 U nknown LIPID GROUP 11355 HDL TEST 39 MG/DL 09/15/2015 Unknown LIPID GROUP 70075 TRIG 106 MG/DL 09/15/2015 Unknown LIPID GROUP 00140 TEST LDL 152 MG/DL 09/15/2015 Unknown LIPID GROUP 34921 CHOL 212 MG/DL 09/15/2015 Unknown LIPID GROUP 13193 RCHOL/HDL 5.44 RATIO 09/15/2015 Unknow n LIPID GROUP 91423 NON-HDL CH 173 MG/DL 09/15/2015 Unknow n GFR CALC 0133542 GFR AA >60 ML/MIN 09/15/2015 Unknown GFR CALC 6553303 GFR NON-AA >60 ML/MIN 09/15/2015 Unknown COMPREHENSIVE METABOLIC 47082 AST 18 U/L 2015 Unknown COMPREHENSIVE METABOLIC 78931 ALT 28 IU/L 2015 Unknown COMPREHENSIVE METABOLIC 51822 BUN 14 MG/DL 2015 Unknown COMPREHENSIVE METABOLIC 47823 ALBUMIN 4.2 GM/DL 2015 Unknown COMPREHENSIVE METABOLIC 19676 CHLORIDE 101 MMOL/L 09/15 Unknown COMPREHENSIVE METABOLIC 62591 BILI TOT 0.6 MG/DL 2015 Unknown COMPREHENSIVE METABOLIC 34988 ALK PHOS 48 U/L 2015 Unknown COMPREHENSIVE METABOLIC 19997 SODIUM 135 MMOL/L 09/15 Unknown COMPREHENSIVE METABOLIC 93849 CREATININE 0.91 MG/DL 08/31 Unknown COMPREHENSIVE METABOLIC 60964 CALCIUM 9.2 MG/DL 2015 Unknown COMPREHENSIVE METABOLIC 15575 POTASSIUM 4.6 MMOL/L 09/15 Unknown COMPREHENSIVE METABOLIC 62817 PROT TOT 6.6 GM/DL 2015 Unknown COMPREHENSIVE METABOLIC 93445 Glucose 97 MG/DL 2015 Unknown COMPREHENSIVE METABOLIC 48683 BICARB 27 MMOL/L 2015 Unknown COMPREHENSIVE METABOLIC 93774 ANION GAP 7 MEQ/L 2015 Unknown LIPID GROUP 87619 HDL TEST 35 MG/DL 04/14/2015 Unknown LIPID GROUP 53965 TRIG 135 MG/DL 04/14/2015 Unknown LIPID GROUP 10215 TEST LDL 153 MG/DL 04/14/2015 Unknown LIPID GROUP 34664 CHOL 215 MG/DL 04/14/2015 Unknown LIPID GROUP 98836 RCHOL/HDL 6.14 RATIO 04/14/2015 Unknow n LIPID GROUP 90948 NON-HDL CH 180 MG/DL 04/14/2015 Unknow n GFR CALC 0968808 GFR AA >60 ML/MIN 04/14/2015 Unknown GFR CALC 9351547 GFR NON-AA >60 ML/MIN 04/14/2015 Unknown COMPREHENSIVE METABOLIC 71801 AST 23 U/L 2014 Unknown COMPREHENSIVE METABOLIC 33147 ALT 27 IU/L 2014 Unknown COMPREHENSIVE METABOLIC 72055 BUN 15 MG/DL 2014 Unknown COMPREHENSIVE METABOLIC 90070 ALBUMIN 4.2 GM/DL 2014 Unknown COMPREHENSIVE METABOLIC 22627 CHLORIDE 103 MMOL/L 04/14 Unknown COMPREHENSIVE METABOLIC 31028 BILI TOT 0.8 MG/DL 2014 Unknown COMPREHENSIVE METABOLIC 70981 ALK PHOS 50 U/L 2014 Unknown COMPREHENSIVE METABOLIC 77380 SODIUM 134 MMOL/L 04/14 Unknown COMPREHENSIVE METABOLIC 31912 CREATININE 0.93 MG/DL 03/31 Unknown COMPREHENSIVE METABOLIC 28915 CALCIUM 9.4 MG/DL 2014 Unknown COMPREHENSIVE METABOLIC 39130 POTASSIUM 4.4 MMOL/L 04/14 Unknown COMPREHENSIVE METABOLIC 27447 PROT TOT 6.8 GM/DL 2014 Unknown COMPREHENSIVE METABOLIC 48664 Glucose 101 MG/DL 2014 Unknown COMPREHENSIVE METABOLIC 14557 BICARB 25 MMOL/L 2014 Unknown COMPREHENSIVE METABOLIC 88448 ANION GAP 6 MEQ/L 2014 Unknown PSA EQUIMOLAR TROY 10581 PSA EQ 1.04 NG/ML 5 Unknown GFR CALC 3772880 GFR AA >60 ML/MIN 11/10/2014 Unknown GFR CALC 8641804 GFR NON-AA >60 ML/MIN 11/10/2014 Unknown LIPID GROUP 73589 HDL TEST 31 MG/DL 11/10/2014 Unknown LIPID GROUP 90685 TRIG 133 MG/DL 11/10/2014 Unknown LIPID GROUP 38581 TEST LDL 74 MG/DL 11/10/2014 Unknown LIPID GROUP 82610 CHOL 132 MG/DL 11/10/2014 Unknown LIPID GROUP 07181 RCHOL/HDL 4.26 RATIO 11/10/2014 Unknow n LIPID GROUP 59385 NON-HDL CH 101 MG/DL 11/10/2014 Unknow n COMPLETE BLOOD COUNT 4179878 WBC 10.2 10e9/L 015 Unknown COMPLETE BLOOD COUNT 1122571 RBC 5.01 10e12/L 2014 Unknown COMPLETE BLOOD COUNT 2572209 HGB 16.1 g/dL 5 Unknown COMPLETE BLOOD COUNT 5408130 HCT DET 48.1 % 5 Unknown COMPLETE BLOOD COUNT 5267604 MCV 96.0 fL 5 Unknown COMPLETE BLOOD COUNT 6150419 MCH 32.1 pg 5 Unknown COMPLETE BLOOD COUNT 2300443 MCHC 33.5 g/dL 5 Unknown COMPLETE BLOOD COUNT 0730360 PLT 248 10e9/L 11/11/19 15 Unknown COMPLETE BLOOD COUNT 4759369 MPV 11.4 fL 5 Unknown COMPLETE BLOOD COUNT 0977682 GIUSEPPE % 51.2 % 5 Unknown COMPLETE BLOOD COUNT 2789934 LY % 37.4 % 5 Unknown COMPLETE BLOOD COUNT 0951086 MON % 9.2 % 5 Unknown COMPLETE BLOOD COUNT 9474152 EOS % 2.0 % 5 Unknown COMPLETE BLOOD COUNT 8899565 BASO % 0.2 % 5 Unknown COMPLETE BLOOD COUNT 7990380 RDW 14.0 % 5 Unknown COMPLETE BLOOD COUNT 6467275 ABS GIUSEPPE 5.22 10e9/L 015 Unknown COMPLETE BLOOD COUNT 0781263 ABS LYMPH 3.81 10e9/L 015 Unknown COMPLETE BLOOD COUNT 9483096 ABS MONO 0.94 10e9/L 015 Unknown COMPLETE BLOOD COUNT 9722980 ABS EOS 0.20 10e9/L 015 Unknown COMPLETE BLOOD COUNT 7802725 ABS BASO 0.02 10e9/L 015 Unknown COMPLETE BLOOD COUNT 2437307 RDW-SD 47.8 fL 5 Unknown FREE T4 27295 FREE T4 0.92 NG/DL 11/10/2014 Unknown COMPREHENSIVE METABOLIC 95760 AST 18 U/L 2014 Unknown COMPREHENSIVE METABOLIC 56851 ALT 25 IU/L 2014 Unknown COMPREHENSIVE METABOLIC 89588 BUN 16 MG/DL 2014 Unknown COMPREHENSIVE METABOLIC 99408 ALBUMIN 4.5 GM/DL 2014 Unknown COMPREHENSIVE METABOLIC 32385 CHLORIDE 103 MMOL/L 11/10 Unknown COMPREHENSIVE METABOLIC 04124 BILI TOT 0.4 MG/DL 2014 Unknown COMPREHENSIVE METABOLIC 93576 ALK PHOS 53 U/L 2014 Unknown COMPREHENSIVE METABOLIC 42754 SODIUM 135 MMOL/L 11/10 Unknown COMPREHENSIVE METABOLIC 69054 CREATININE 0.97 MG/DL 10/29 Unknown COMPREHENSIVE METABOLIC 91729 CALCIUM 9.4 MG/DL 2014 Unknown COMPREHENSIVE METABOLIC 79999 POTASSIUM 4.4 MMOL/L 11/10 Unknown COMPREHENSIVE METABOLIC 23817 PROT TOT 6.9 GM/DL 2014 Unknown COMPREHENSIVE METABOLIC 91678 Glucose 91 MG/DL 2014 Unknown COMPREHENSIVE METABOLIC 39889 BICARB 26 MMOL/L 2014 Unknown COMPREHENSIVE METABOLIC 73640 ANION GAP 6 MEQ/L 2014 Unknown THYROID STIMULATING HORMONE 22304 TSH 3.791 uIU/ML 11/10/2014 Unknown LIPID GROUP 58590 HDL TEST 35 MG/DL 04/29/2014 Unknown LIPID GROUP 71944 TRIG 123 MG/DL 04/29/2014 Unknown LIPID GROUP 38979 TEST LDL 117 MG/DL 04/29/2014 Unknown LIPID GROUP 11369 CHOL 177 MG/DL 04/29/2014 Unknown LIPID GROUP 53777 RCHOL/HDL 5.06 RATIO 04/29/2014 Unknow n LIPID GROUP 43995 NON-HDL CH 142 MG/DL 04/29/2014 Unknow n COMPREHENSIVE METABOLIC 73169 AST 18 U/L 2013 Unknown COMPREHENSIVE METABOLIC 34588 ALT 29 IU/L 2013 Unknown COMPREHENSIVE METABOLIC 26395 BUN 19 MG/DL 2013 Unknown COMPREHENSIVE METABOLIC 30775 ALBUMIN 4.0 GM/DL 2013 Unknown COMPREHENSIVE METABOLIC 03369 CHLORIDE 106 MMOL/L 04/29 Unknown COMPREHENSIVE METABOLIC 82160 BILI TOT 0.4 MG/DL 2013 Unknown COMPREHENSIVE METABOLIC 48125 ALK PHOS 51 U/L 2013 Unknown COMPREHENSIVE METABOLIC 36386 SODIUM 138 MMOL/L 04/29 Unknown COMPREHENSIVE METABOLIC 99693 CREATININE 0.87 MG/DL 04/02 Unknown COMPREHENSIVE METABOLIC 50884 CALCIUM 9.4 MG/DL 2013 Unknown COMPREHENSIVE METABOLIC 69771 POTASSIUM 4.5 MMOL/L 04/29 Unknown COMPREHENSIVE METABOLIC 78539 PROT TOT 6.8 GM/DL 2013 Unknown COMPREHENSIVE METABOLIC 54993 Glucose 106 MG/DL 2013 Unknown COMPREHENSIVE METABOLIC 64402 BICARB 24 MMOL/L 2013 Unknown COMPREHENSIVE METABOLIC 53880 ANION GAP 8 MEQ/L 2013 Unknown GFR CALC 6861891 GFR AA >60 ML/MIN 04/29/2014 Unknown GFR CALC 7475034 GFR NON-AA >60 ML/MIN 04/29/2014 Unknown LIPID GROUP 21916 HDL TEST 30 MG/DL 12/18/2013 Unknown LIPID GROUP 22791 TRIG 128 MG/DL 12/18/2013 Unknown LIPID GROUP 68657 TEST LDL 166 MG/DL 12/18/2013 Unknown LIPID GROUP 01312 CHOL 222 MG/DL 12/18/2013 Unknown LIPID GROUP 73621 RCHOL/HDL 7.40 RATIO 12/18/2013 Unknow n GFR CALC 6315775 GFR AA >60 ML/MIN 12/18/2013 Unknown GFR CALC 0763930 GFR NON-AA >60 ML/MIN 12/18/2013 Unknown FREE T4 12127 FREE T4 1.07 NG/DL 12/18/2013 Unknown COMPLETE BLOOD COUNT 2005956 WBC 7.2 10e9/L 12/19/19 14 Unknown COMPLETE BLOOD COUNT 6285066 RBC 4.89 10e12/L 2013 Unknown COMPLETE BLOOD COUNT 5984626 HGB 15.5 g/dL 4 Unknown COMPLETE BLOOD COUNT 6308523 HCT DET 46.6 % 4 Unknown COMPLETE BLOOD COUNT 8725367 MCV 95.3 fL 4 Unknown COMPLETE BLOOD COUNT 1098826 MCH 31.7 pg 4 Unknown COMPLETE BLOOD COUNT 8238904 MCHC 33.3 g/dL 4 Unknown COMPLETE BLOOD COUNT 4633353 PLT 246 10e9/L 12/19/19 14 Unknown COMPLETE BLOOD COUNT 9002328 MPV 11.4 fL 4 Unknown COMPLETE BLOOD COUNT 0414145 GIUSEPPE % 48.6 % 4 Unknown COMPLETE BLOOD COUNT 2184206 LY % 37.4 % 4 Unknown COMPLETE BLOOD COUNT 5837988 MON % 10.5 % 4 Unknown COMPLETE BLOOD COUNT 9927524 EOS % 3.2 % 4 Unknown COMPLETE BLOOD COUNT 4358665 BASO % 0.3 % 4 Unknown COMPLETE BLOOD COUNT 9992695 RDW 13.6 % 4 Unknown COMPLETE BLOOD COUNT 7230103 ABS GIUSEPPE 3.50 10e9/L 014 Unknown COMPLETE BLOOD COUNT 4813302 ABS LYMPH 2.69 10e9/L 014 Unknown COMPLETE BLOOD COUNT 1059747 ABS MONO 0.76 10e9/L 014 Unknown COMPLETE BLOOD COUNT 6791321 ABS EOS 0.23 10e9/L 014 Unknown COMPLETE BLOOD COUNT 3278648 ABS BASO 0.02 10e9/L 014 Unknown COMPLETE BLOOD COUNT 8017087 RDW-SD 46.2 fL 4 Unknown COMPREHENSIVE METABOLIC 40247 AST 38 U/L 2013 Unknown COMPREHENSIVE METABOLIC 03309 ALT 33 IU/L 2013 Unknown COMPREHENSIVE METABOLIC 75868 BUN 15 MG/DL 2013 Unknown COMPREHENSIVE METABOLIC 51717 ALBUMIN 4.2 GM/DL 2013 Unknown COMPREHENSIVE METABOLIC 32327 CHLORIDE 103 MMOL/L 12/18 Unknown COMPREHENSIVE METABOLIC 44119 BILI TOT 0.6 MG/DL 2013 Unknown COMPREHENSIVE METABOLIC 42797 ALK PHOS 45 U/L 2013 Unknown COMPREHENSIVE METABOLIC 50324 SODIUM 136 MMOL/L 12/18 Unknown COMPREHENSIVE METABOLIC 99392 CREATININE 0.97 MG/DL 11/29 Unknown COMPREHENSIVE METABOLIC 44496 CALCIUM 9.2 MG/DL 2013 Unknown COMPREHENSIVE METABOLIC 84795 POTASSIUM 4.2 MMOL/L 12/18 Unknown COMPREHENSIVE METABOLIC 69928 PROT TOT 7.0 GM/DL 2013 Unknown COMPREHENSIVE METABOLIC 25023 Glucose 120 MG/DL 2013 Unknown COMPREHENSIVE METABOLIC 69529 BICARB 24 MMOL/L 2013 Unknown COMPREHENSIVE METABOLIC 02543 ANION GAP 9 MEQ/L 2013 Unknown THYROID STIMULATING HORMONE 90716 TSH 1.305 uIU/ML 12/18/2013 Unknown PSA EQUIMOLAR TROY 29582 PSA EQ 1.71 NG/ML 4 Unknown LIPID GROUP 61635 HDL TEST 29 MG/DL 07/17/2012 Unknown LIPID GROUP 90468 TRIG 155 MG/DL 07/17/2012 Unknown LIPID GROUP 41252 TEST LDL 105 MG/DL 07/17/2012 Unknown LIPID GROUP 04777 CHOL 165 MG/DL 07/17/2012 Unknown LIPID GROUP 49150 RCHOL/HDL 5.69 RATIO 07/17/2012 Unknow n GFR CALC 6726511 GFR AA >60 ML/MIN 07/17/2012 Unknown GFR CALC 5812589 GFR NON-AA >60 ML/MIN 07/17/2012 Unknown COMPREHENSIVE METABOLIC 63161 AST 19 U/L 2011 Unknown COMPREHENSIVE METABOLIC 48404 ALT 25 IU/L 2011 Unknown COMPREHENSIVE METABOLIC 66156 BUN 14 MG/DL 2011 Unknown COMPREHENSIVE METABOLIC 96259 ALBUMIN 4.4 GM/DL 2011 Unknown COMPREHENSIVE METABOLIC 30973 CHLORIDE 103 MMOL/L 07/17 Unknown COMPREHENSIVE METABOLIC 72694 BILI TOT 0.6 MG/DL 2011 Unknown COMPREHENSIVE METABOLIC 19436 ALK PHOS 53 U/L 2011 Unknown COMPREHENSIVE METABOLIC 90345 SODIUM 136 MMOL/L 07/17 Unknown COMPREHENSIVE METABOLIC 74338 CREATININE 0.97 MG/DL 06/30 Unknown COMPREHENSIVE METABOLIC 32117 CALCIUM 9.4 MG/DL 2011 Unknown COMPREHENSIVE METABOLIC 91401 POTASSIUM 4.3 MMOL/L 07/17 Unknown COMPREHENSIVE METABOLIC 24874 PROT TOT 6.9 GM/DL 2011 Unknown COMPREHENSIVE METABOLIC 89728 Glucose 102 MG/DL 2011 Unknown COMPREHENSIVE METABOLIC 33914 BICARB 27 MMOL/L 2011 Unknown COMPREHENSIVE METABOLIC 29496 ANION GAP 6 MEQ/L 2011 Unknown ERYTHROCYTE SEDIMENTATION RATE 55968 ESR 14 MM/HR 03/20/2012 Unknown LIPID GROUP 07545 HDL TEST 31 MG/DL 03/20/2012 Unknown LIPID GROUP 90282 TRIG 210 MG/DL 03/20/2012 Unknown LIPID GROUP 03417 TEST LDL 164 MG/DL 03/20/2012 Unknown LIPID GROUP 80718 CHOL 237 MG/DL 03/20/2012 Unknown LIPID GROUP 26236 RCHOL/HDL 7.65 RATIO 03/20/2012 Unknow n GFR CALC 8633663 GFR AA >60 ML/MIN 03/20/2012 Unknown GFR CALC 1730311 GFR NON-AA >60 ML/MIN 03/20/2012 Unknown C-REACTIVE PROTEIN (CRP) QUANT 04748 CRP 0.9 MG/DL 03/20/2012 Unknown COMPLETE BLOOD COUNT 11057 WBC 9.7 10e9/L 03/20/20 12 Unknown COMPLETE BLOOD COUNT 33284 RBC 5.14 10e12/L 2011 Unknown COMPLETE BLOOD COUNT 87548 HGB 15.5 g/dL 2 Unknown COMPLETE BLOOD COUNT 66860 HCT DET 46.9 % 2 Unknown COMPLETE BLOOD COUNT 81502 MCV 91.2 fL 2 Unknown COMPLETE BLOOD COUNT 19613 MCH 30.2 pg 2 Unknown COMPLETE BLOOD COUNT 53440 MCHC 33.0 g/dL 2 Unknown COMPLETE BLOOD COUNT 25506 PLT 280 10e9/L 03/20/20 12 Unknown COMPLETE BLOOD COUNT 65640 MPV 10.6 fL 2 Unknown COMPLETE BLOOD COUNT 61220 GIUSEPPE % 61.5 % 2 Unknown COMPLETE BLOOD COUNT 02339 LY % 26.5 % 2 Unknown COMPLETE BLOOD COUNT 34350 MON % 8.8 % 2 Unknown COMPLETE BLOOD COUNT 23518 EOS % 3.0 % 2 Unknown COMPLETE BLOOD COUNT 63242 BASO % 0.2 % 2 Unknown COMPLETE BLOOD COUNT 80555 RDW 15.3 % 2 Unknown COMPLETE BLOOD COUNT 80059 ABS GIUSEPPE 5.97 10e9/L 012 Unknown COMPLETE BLOOD COUNT 59422 ABS LYMPH 2.57 10e9/L 012 Unknown COMPLETE BLOOD COUNT 02618 ABS MONO 0.85 10e9/L 012 Unknown COMPLETE BLOOD COUNT 50470 ABS EOS 0.29 10e9/L 012 Unknown COMPLETE BLOOD COUNT 61558 ABS BASO 0.02 10e9/L 012 Unknown COMPLETE BLOOD COUNT 23460 RDW-SD 50.3 fL 2 Unknown COMPREHENSIVE METABOLIC 99058 AST 16 U/L 2011 Unknown COMPREHENSIVE METABOLIC 60410 ALT 21 IU/L 2011 Unknown COMPREHENSIVE METABOLIC 50251 BUN 15 MG/DL 2011 Unknown COMPREHENSIVE METABOLIC 04305 ALBUMIN 4.3 GM/DL 2011 Unknown COMPREHENSIVE METABOLIC 76519 CHLORIDE 102 MMOL/L 03/20 Unknown COMPREHENSIVE METABOLIC 74980 BILI TOT 0.5 MG/DL 2011 Unknown COMPREHENSIVE METABOLIC 09683 ALK PHOS 60 U/L 2011 Unknown COMPREHENSIVE METABOLIC 71790 SODIUM 135 MMOL/L 03/20 Unknown COMPREHENSIVE METABOLIC 05437 CREATININE 0.94 MG/DL 03/01 Unknown COMPREHENSIVE METABOLIC 78462 CALCIUM 9.0 MG/DL 2011 Unknown COMPREHENSIVE METABOLIC 91077 POTASSIUM 4.4 MMOL/L 03/20 Unknown COMPREHENSIVE METABOLIC 34268 PROT TOT 6.7 GM/DL 2011 Unknown COMPREHENSIVE METABOLIC 29243 Glucose 96 MG/DL 2011 Unknown COMPREHENSIVE METABOLIC 43703 BICARB 25 MMOL/L 2011 Unknown COMPREHENSIVE METABOLIC 19521 ANION GAP 8 MEQ/L 2011 [place] [address] PRO TIME 21.6 SEC 03/20/2012 [place] [address] INR MCMC 1.8 03/20/2012 Unknow n Procedures Procedure Codes Date ROUTINE VENIPUNCTURE CPT-4: 13816 06/19/2018 ASSAY OF FREE THYROXINE CPT-4: 71320 06/19/2018 ASSAY THYROID STIM HORMONE CPT-4: 57089 06/19/2018 COMPREHEN METABOLIC PANEL CPT-4: 25108 06/19/2018 COMPLETE CBC W/AUTO DIFF WBC CPT-4: 23157 06/19/2018 LIPID PANEL CPT-4: 23700 06/19/2018 ASSAY OF PSA TOTAL CPT-4: 26869 06/19/2018 VITAMIN D TOTAL (25 HYDROXY) CPT-4: 65728 06/19/2018 VITAMIN B-12 CPT-4: 24047 06/19/2018 DEXAMETHASONE SODIUM PHOS CPT-4: J1100 08/31/2017 TRIAMCINOLONE ACET INJ NOS CPT-4: J3301 08/31/2017 DRAIN/INJECT JOINT/BURSA CPT-4: 85351 08/31/2017 ROUTINE VENIPUNCTURE CPT-4: 61738 08/01/2017 COMPREHEN METABOLIC PANEL CPT-4: 43406 08/01/2017 LIPID PANEL CPT-4: 92473 08/01/2017 DRAIN/INJECT JOINT/BURSA CPT-4: 64193 09/12/2016 TRIAMCINOLONE ACET INJ NOS CPT-4: J3301 09/12/2016 DEXAMETHASONE SODIUM PHOS CPT-4: J1100 09/12/2016 ROUTINE VENIPUNCTURE CPT-4: 13633 09/09/2016 ASSAY OF FREE THYROXINE CPT-4: 78619 09/09/2016 ASSAY THYROID STIM HORMONE CPT-4: 83159 09/09/2016 COMPREHEN METABOLIC PANEL CPT-4: 48304 09/09/2016 COMPLETE CBC W/AUTO DIFF WBC CPT-4: 36530 09/09/2016 LIPID PANEL CPT-4: 05815 09/09/2016 SPECIAL REPORTS OR FORMS CPT-4: 20682 08/05/2016 ROUTINE VENIPUNCTURE CPT-4: 20370 09/15/2015 COMPREHEN METABOLIC PANEL CPT-4: 86944 09/15/2015 LIPID PANEL CPT-4: 21908 09/15/2015 PRESCRIP TRANSMIT VIA ERX SY CPT-4: G8553 08/31/2015 ROUTINE VENIPUNCTURE CPT-4: 08891 04/14/2015 COMPREHEN METABOLIC PANEL CPT-4: 37282 04/14/2015 LIPID PANEL CPT-4: 55191 04/14/2015 ROUTINE VENIPUNCTURE CPT-4: 70262 11/10/2014 ASSAY OF FREE THYROXINE CPT-4: 62207 11/10/2014 ASSAY THYROID STIM HORMONE CPT-4: 35884 11/10/2014 COMPREHEN METABOLIC PANEL CPT-4: 72111 11/10/2014 COMPLETE CBC W/AUTO DIFF WBC CPT-4: 89586 11/10/2014 LIPID PANEL CPT-4: 50654 11/10/2014 ASSAY OF PSA TOTAL CPT-4: 61740 11/10/2014 ROUTINE VENIPUNCTURE CPT-4: 87041 04/29/2014 COMPREHEN METABOLIC PANEL CPT-4: 19989 04/29/2014 LIPID PANEL CPT-4: 63273 04/29/2014 ROUTINE VENIPUNCTURE CPT-4: 48534 12/18/2013 ASSAY OF FREE THYROXINE CPT-4: 04987 12/18/2013 ASSAY THYROID STIM HORMONE CPT-4: 86938 12/18/2013 COMPREHEN METABOLIC PANEL CPT-4: 45780 12/18/2013 COMPLETE CBC W/AUTO DIFF WBC CPT-4: 57304 12/18/2013 LIPID PANEL CPT-4: 29715 12/18/2013 ASSAY OF PSA TOTAL CPT-4: 40838 12/18/2013 ROUTINE VENIPUNCTURE CPT-4: 18876 07/17/2012 COMPREHEN METABOLIC PANEL CPT-4: 86308 07/17/2012 LIPID PANEL CPT-4: 16008 07/17/2012 ROUTINE VENIPUNCTURE CPT-4: 05373 03/20/2012 COMPLETE CBC W/AUTO DIFF WBC CPT-4: 03973 03/20/2012 RBC SED RATE AUTOMATED CPT-4: 57370 03/20/2012 C-REACTIVE PROTEIN CPT-4: 65799 03/20/2012 COMPREHEN METABOLIC PANEL CPT-4: 35817 03/20/2012 LIPID PANEL CPT-4: 52846 03/20/2012 PROTHROMBIN TIME CPT-4: 42567 03/20/2012 Vital Signs Date Vital 10/07/2019 Blood Pressure 1: 142/83 Code: 8480-6 BMI: 31.3 Code: 27172-8 Heart Rate 1: 80 bpm Height: 6'2" Respiratory Rate: 17 bpm SpO2: 99% Tempera ture: 36.7 (C) / 98.1 (F) Weight: 244 lbs 07/01/2019 Blood Pressure 1: 114/80 Code: 8480-6 BMI: 30.4 Code: 18066-0 Heart Rate 1: 72 bpm Height: 6'2" [...] 1: 126/82 Code: 8480-6 BMI: 31.2 Code: 14038-1 Heart Rate 1: 84 bpm Height: 6'2" Respiratory Rate: 20 bpm SpO2: 94% Tempera ture: 37.0 (C) / 98.6 (F) Weight: 243 lbs 03/02/2018 Blood Pressure 1: 122/80 Code: 8480-6 BMI: 30.8 Code: 17677-6 Heart Rate 1: 74 bpm Height: 6'2" Respiratory Rate: 20 bpm SpO2: 95% Tempera ture: 37.1 (C) / 98.8 (F) Weight: 240 lbs 08/31/2017 Blood Pressure 1: 136/90 Code: 8480-6 Heart Rate 1: 76 bpm Respiratory Rate: 20 bpm Temperature: 36.7 (C) / 98.0 (F) Weight: 247 lbs 07/18/2017 Blood Pressure 1: 126/78 Code: 8480-6 BMI: 31.3 Code: 11736-8 Heart Rate 1: 72 bpm Height: 6'2" Respiratory Rate: 20 bpm SpO2: 94% Tempera ture: 37.0 (C) / 98.6 (F) Weight: 244 lbs 04/24/2017 Blood Pressure 1: 152/92 Code: 8480-6 BMI: 31.1 Code: 27228-6 Heart Rate 1: 74 bpm Height: 6'2" Respiratory Rate: 18 bpm SpO2: 98% Tempera ture: 35.9 (C) / 96.6 (F) Weight: 242 lbs 01/04/2017 Blood Pressure 1: 122/70 Code: 8480-6 BMI: 30.4 Code: 47550-2 Heart Rate 1: 88 bpm Height: 6'2" Respiratory Rate: 20 bpm SpO2: 96% Tempera ture: 36.6 (C) / 97.8 (F) Weight: 237 lbs 09/12/2016 Blood Pressure 1: 136/78 Code: 8480-6 Heart Rate 1: 82 bpm Respiratory Rate: 22 bpm SpO2: 94% Temperature: 36.4 (C) / 97.6 (F) We ight: 234 lbs 09/07/2016 Blood Pressure 1: 122/70 Code: 8480-6 BMI: 30.0 Code: 75262-9 Heart Rate 1: 88 bpm Height: 6'2" Respiratory Rate: 20 bpm SpO2: 94% Tempera ture: 36.6 (C) / 97.9 (F) Weight: 234 lbs 08/31/2015 Blood Pressure 1: 142/94 Code: 8480-6 BMI: 28.9 Code: 18036-6 Heart Rate 1: 92 bpm Height: 6'2" Respiratory Rate: 20 bpm Temperature: 36 .9 (C) / 98.5 (F) Weight: 225 lbs 04/14/2015 Blood Pressure 1: 126/80 Code: 8480-6 BMI: 28.0 Code: 85540-7 Heart Rate 1: 76 bpm Height: 6'2" Respiratory Rate: 20 bpm Temperature: 36 .6 (C) / 97.8 (F) Weight: 218 lbs 10/07/2014 Blood Pressure 1: 128/76 Code: 8480-6 BMI: 28.6 Code: 19627-2 Heart Rate 1: 84 bpm Height: 6'2" Respiratory Rate: 22 bpm Temperature: 36 .6 (C) / 97.9 (F) Weight: 223 lbs 05/01/2014 Blood Pressure 1: 126/68 Code: 8480-6 BMI: 28.2 Code: 56123-0 Heart Rate 1: 84 bpm Height: 6'2" Respiratory Rate: 20 bpm Temperature: 36 .8 (C) / 98.3 (F) Weight: 220 lbs 12/17/2013 Blood Pressure 1: 136/82 Code: 8480-6 BMI: 29.6 Code: 48940-0 Heart Rate 1: 76 bpm Height: 6'1" Respiratory Rate: 20 bpm Temperature: 36 .8 (C) / 98.2 (F) Weight: 224 lbs 12/11/2012 Blood Pressure 1: 122/86 Code: 8480-6 BMI: 30.5 Code: 96375-9 Heart Rate 1: 76 bpm Height: 6'1" Respiratory Rate: 20 bpm SpO2: 93% Tempera ture: 36.8 (C) / 98.2 (F) Weight: 231 lbs 12/04/2012 Blood Pressure 1: 124/86 Code: 8480-6 BMI: 30.5 Code: 81429-5 Heart Rate 1: 68 bpm Height: 6'1" Respiratory Rate: 20 bpm SpO2: 95% Tempera ture: 36.6 (C) / 97.8 (F) Weight: 231 lbs 08/14/2012 Blood Pressure 1: 126/70 Code: 8480-6 BMI: 29.4 Code: 53317-1 Heart Rate 1: 80 bpm Height: 6'1" Respiratory Rate: 20 bpm Temperature: 36 .8 (C) / 98.3 (F) Weight: 223 lbs 07/17/2012 Blood Pressure 1: 124/82 Code: 8480-6 BMI: 29.7 Code: 71676-3 Heart Rate 1: 80 bpm Height: 6'1" Respiratory Rate: 20 bpm Temperature: 36 .8 (C) / 98.2 (F) Weight: 225 lbs 03/20/2012 Blood Pressure 1: 124/78 Code: 8480-6 BMI: 29.3 Code: 78515-8 Heart Rate 1: 72 bpm Height: 6'1" Respiratory Rate: 20 bpm Temperature: 36 .6 (C) / 97.8 (F) Weight: 222 lbs 12/08/2011 Blood Pressure 1: 112/64 Code: 8480-6 BMI: 28.2 Code: 07702-8 Heart Rate 1: 78 bpm Height: 6'1" Temperature: 36.3 (C) / 97.4 (F) Weight: 214 lbs 08/11/2011 Blood Pressure 1: 128/70 Code: 8480-6 BMI: 27.6 Code: 94291-9 Heart Rate 1: 76 bpm Height: 6'1" [...] ntix follow up 03/20/2012 from aditya Flores s stopping the warfarin back pain 12/08/2011 ~generic 08/11/2011 Re-establishing visi t Yearly Checkup/Physical 05/26/2010 Establishing Vis it Encounters Encounter Performer Location Codes Date ([id number]) OFFICE/OUTPATIENT VISIT EST Diagnosis: COPD (chronic obstructive pulmonary disease)[ICD10: J44.9] Diagnosis: Mixed hyperlipidemia[ICD10: E78.2] Diagnosis: Coronary artery disease[ICD10: I25.10] Diagnosis: 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: G57.92] Martita GARCIA [facility] CPT-4: 46269 10/07/2019 ([id number]) OFFICE/OUTPATIENT VISIT EST Diagnosis: Cephalgia[ICD10: R51] Diagnosis: Family history of brain aneurysm[ICD10: Z82.49] Diagnosis: Other intervertebral disc degeneration, 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] Martita MCGOVERN [facility] CPT-4: 73114 07/01/2019 ([id number]) OFFICE/OUTPATIENT VISIT EST Diagnosis: Atherosclerotic heart disease of [place] coronary artery without angina pectoris[ICD10: I25.10] Diagnosis: Bilateral primary osteoarthritis of knee[ICD10: M17.0] Diagnosis: Nicotine dependence, unspecified, uncomplicated[ICD10: F17.200] Diagnosis: Mixed hyperlipidemia[ICD10: E78.2] Martita RENTERIA [employer] CPT-4: 54864 03/27/2019 ([id number]) OFFICE/OUTPATIENT VISIT EST Diagnosis: Mixed hyperlipidemia[ICD10: E78.2] Diagnosis: Atherosclerotic heart disease of [place] coronary artery without angina pectoris[ICD10: I25.10] Diagnosis: Other intervertebral disc degeneration, 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] Martita MCGOVERN [employer] CPT-4: 14367 12/25/2018 ([id number]) OFFICE/OUTPATIENT VISIT EST Diagnosis: Mixed hyperlipidemia[ICD10: E78.2] Diagnosis: Other fatigue[ICD10: R53.83] Diagnosis: Encounter for screening for malignant neoplasm of prostate[ICD10: Z12.5] Diagnosis: Primary osteoarthritis, 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 CARLANDJOELLEN [employer] CPT-4: 70656 03/02/2018 ([id number]) OFFICE/OUTPATIENT VISIT EST Diagnosis: Mixed hyperlipidemia[ICD10: E78.2] Martita RENTERIA SSohail AGUIRRENDER [employer] [facility] CPT-4: 48024 08/01/2017 ([id number]) OFFICE/OUTPATIENT VISIT EST Diagnosis: Other spondylosis with radiculopathy, cervical region[ICD10: M47.22] Diagnosis: Pain in 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: M25.531] Diagnosis: Mixed hyperlipidemia[ICD10: E78.2] Diagnosis: 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] Martita SLAUGHTERQUELINE Sofia AGUIRREGolden Hill PaugussettsJOELLEN [employer] [facility] CPT-4: 9921 3 07/18/2017 ([id number]) OFFICE/OUTPATIENT VISIT EST Diagnosis: Other intervertebral disc degeneration, 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] Diagnosis: Cervicalgia[ICD10: M54.2] Martita MCGOVERN Sofia YOUNG [facility] CPT-4: 57336 04/24/2017 ([id number]) OFFICE/OUTPATIENT VISIT EST Diagnosis: Cervicalgia[ICD10: M54.2] Diagnosis: Other intervertebral disc degeneration, 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] Diagnosis: Mixed hyperlipidemia[ICD10: E78.2] Martita RENTERIA SSohail AGUIRRENDER [employer] [facility] CPT-4: 61469 01/04/2017 ([id number]) OFFICE/OUTPATIENT VISIT EST Diagnosis: Mixed hyperlipidemia[ICD10: E78.2] Diagnosis: Encounter for general adult medical examination with abnormal findings[ICD10: Z00.01] Martita MCGOVERN Sofia AGUIRRENDJOELLEN [employer] [facility] CPT-4: 11206 09/09/2016 ([id number]) PREV VISIT EST AGE 40-64 Diagnosis: Mixed hyperlipidemia[ICD10: E78.2] Diagnosis: Nicotine dependence, unspecified, uncomplicated[ICD10: F17.200] Diagnosis: Chronic obstructive pulmonary disease with acute lower respiratory infection[ICD10: J44.0] Diagnosis: Bilateral primary osteoarthritis of knee[ICD10: M17.0] Diagnosis: Pain in thoracic spine[ICD10: M54.6] Diagnosis: Pain in 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: M25.531] Diagnosis: Encounter for general adult medical examination with abnormal findings[ICD10: Z00.01] Martita MCGOVERN [facility] CPT-4: 23625 09/07/2016 ([id number]) OFFICE/OUTPATIENT VISIT EST Diagnosis: Mixed hyperlipidemia[ICD10: E78.2] Martita RENTERIA [facility] CPT-4: 87352 09/15/2015 ([id number]) OFFICE/OUTPATIENT VISIT EST Diagnosis: Acute bronchitis, unspecified[ICD10: J20.9] Diagnosis: Chronic obstructive pulmonary disease with acute lower respiratory infection[ICD10: J44.0] Diagnosis: Lumbago with sciatica, right side[ICD10: M54.41] Martita MCGOVERN [facility] CPT-4: 04774 08/31/2015 ([id number]) OFFICE/OUTPATIENT VISIT EST Diagnosis: HYPERLIPIDEMIA NEC/NOS[ICD9: 272.4] Diagnosis: TOBACCO USE DISORDER[ICD9: 305.1] Diagnosis: Osteoarthritis, knee[ICD9: 715.96] Diagnosis: Chronic back pain[ICD9: 724.5] Martita MCGOVERN [facility] CPT-4: 92319 04/14/2015 ([id number]) OFFICE/OUTPATIENT VISIT EST Diagnosis: HYPERLIPIDEMIA NEC/NOS[ICD9: 272.4] Diagnosis: COPD[ICD9: 496] Diagnosis: ROUTINE MEDICAL EXAM[ICD9: V70.0] Martita Lam [facility] CPT-4: 80448 11/10/2014 ([id number]) OFFICE/OUTPATIENT VISIT EST Diagnosis: Wrist pain[ICD9: 719.43] Diagnosis: Knee osteoarthritis[ICD9: 715.96] Diagnosis: Chronic back pain[ICD9: 724.5] Martita SIMONS DO [facility] CPT-4: 75357 10/07/2014 ([id number]) OFFICE/OUTPATIENT VISIT EST Diagnosis: HYPERLIPIDEMIA NEC/NOS[ICD9: 272.4] Diagnosis: Chronic back pain[ICD9: 724.5] Diagnosis: OSTEOARTH NOS-L/LEG[ICD9: 715.96] Martita SIMONS [employer] [facility] CPT-4: 70811 05/01/2014 ([id number]) OFFICE/OUTPATIENT VISIT EST Diagnosis: HYPERLIPIDEMIA NEC/NOS[ICD9: 272.4] Martita SIMONS DO [facility] CPT-4: 58974 04/29/2014 ([id number]) OFFICE/OUTPATIENT VISIT EST Diagnosis: ROUTINE MEDICAL EXAM[ICD9: V70.0] Diagnosis: HYPERLIPIDEMIA NEC/NOS[ICD9: 272.4] Martita SIMONS [employer] [facility] CPT-4: 99449 12/18/2013 OFFICE/OUTPATIENT VISIT EST Diagnosis: HYPERLIPIDEMIA NEC/NOS[ICD9: 272.4] Diagnosis: COPD[ICD9: 496] Diagnosis: Knee pain[ICD9: 719.46] Diagnosis: Wrist pain[ICD9: 719.43] Martita ROMERO [facility] CPT-4: 23968 12/17/2013 OFFICE/OUTPATIENT VISIT EST Diagnosis: COPD W/ ACUTE EXACERB[ICD9: 491.21] Diagnosis: COUGH[ICD9: 786.2] Martita SIMONS DO [facility] CPT-4: 60804 12/11/2012 ([id number]) OFFICE/OUTPATIENT VISIT EST Diagnosis: BRONCHITIS, ACUTE[ICD9: 466.0] Diagnosis: COPD exacerbation[ICD9: 491.21] Martita SIMONS DO [facility] CPT-4: 96736 12/04/2012 ([id number]) OFFICE/OUTPATIENT VISIT EST Diagnosis: DERMATITIS NOS[ICD9: 692.9] Diagnosis: TOBACCO USE DISORDER[ICD9: 305.1] Martita Lam Sofia SIMONS [facility] CPT-4: 78480 08/14/2012 ([id number]) OFFICE/OUTPATIENT VISIT EST Diagnosis: TOBACCO USE DISORDER[ICD9: 305.1] Diagnosis: PAIN, LOWER BACK[ICD9: 724.2] Diagnosis: PAIN IN THORACIC SPINE[ICD9: 724.1] Diagnosis: DERMATITIS NOS[ICD9: 692.9] Diagnosis: HYPERLIPIDEMIA NEC/NOS[ICD9: 272.4] Martita MONTERO BAILEE Fabian. [employer]LANDJOELLEN [employer] [facility] CPT-4: 51134 07/17/2012 ([id number]) OFFICE/OUTPATIENT VISIT EST Diagnosis: HYPERLIPIDEMIA NEC/NOS[ICD9: 272.4] Diagnosis: OSTEOARTH NOS-L/LEG[ICD9: 715.96] Diagnosis: JOINT PAIN-L/LEG[ICD9: 719.46] Diagnosis: AC EMBL SUPRFCL UP EXT[ICD9: 453.81] Martita FISCHER Sofia SIMONS [facility] CPT-4: 40931 03/20/2012 ([id number]) OFFICE/OUTPATIENT VISIT EST Diagnosis: PAIN, LOWER BACK[ICD9: 724.2] Diagnosis: Superficial venous thrombosis of arm[ICD9: 453.81] Diagnosis: Trigger finger, left[ICD9: 727.03] Martita RENTERIA SSohail SIMONS [facility] CPT-4: 73090 12/08/2011 OFFICE/OUTPATIENT VISIT EST Diagnosis: Knee pain[ICD9: 719.46] Diagnosis: Knee osteoarthritis[ICD9: 715.96] Diagnosis: Thoracic back pain[ICD9: 724.1] Diagnosis: HYPERLIPIDEMIA NEC/NOS[ICD9: 272.4] Martita MOROCHO S. CARLANDJOELLEN [facility] [employer] [facility] CPT-4: 67448 08/11/2011 ([id number]) OFFICE/OUTPATIENT VISIT, NEW Martita HULL Sofia SIMONS [employer] [facility] CPT-4: 17249 05/26/2010 Plan of Care Planned Activity Notes Codes Status Date Visit Diagnosis Plan: COPD (chronic obstructive pulmon jenn disease) Discussion: Smoking Cessation ICD-9 : 496 ICD-10 : J44.9 10/07/2019 Visit Diagnosis Plan: Mixed hyperlipidemia Discussion: Lipids next month with cardiology fwup Follow Up: 3 months ICD-9 : 272.4 ICD-10 : E78.2 10/07/2019 Appointment: Martita Simons WPtel: [address] [place], [place] [phone] MEDICATION REVIEW 10/07/2019 Visit Diagnosis Plan: Other intervertebral disc degene ration, lumbar region Discussion: Stable on hydrocodone Add Vitamin D3 2000u daily Follow Up: 3 months ICD-9 : 722.52 ICD-10 : M51.36 07/01/2019 Visit Diagnosis Plan: Cephalgia Discussion: Discussed CT angiogram to rule out aneurysm but patient defers due to cost ICD-9 : 784.0 ICD-10 : R51 07/01/2019 Appointment: Martita Simons WPtel: [address] [place], [place] [phone] MEDICATION REVIEW 07/01/2019 Visit Diagnosis Plan: Atherosclerotic he art disease of [place] coronary artery without angina pectoris Discussion: Discussed [...] : E78.2 03/27/2019 Appointment: Martita Simons WPtel: [address] [place], [place] [phone] [place] MEDICATION REVIEW 03/27/2019 Visit Diagnosis Plan: Other intervertebral disc degene ration, lumbar region Discussion: Stable on hydrocodone UDS done Follow Up: 3 months ICD-9 : 722.52 ICD-10 : M51.36 12/25/2018 Visit Diagnosis Plan: Atherosclerotic he art disease of [place] coronary artery without angina pectoris Discussion: Smoking Cessation Continue c urrent meds and fwup with cardiology ICD-9 : 414.00 ICD-10 : I25.10 12/25/2018 Appointment: Martita Simonstel: [address] [place] [address] [place] MEDICATION REVIEW 12/25/2018 Appointment: Martita Simons WPtel: [address] [place] [address] OFFICE SURGERY 08/22/2018 Visit Diagnosis Plan: Pain [...] : M19.031 06/19/2018 Appointment: Martita Simons WPtel: [address] [place] [address] MEDICATION REVIEW 06/19/2018 Appointment: Martita Simons WPtel: [address] [place] [address] [place] CANCELED 06/05/2018 Appointment: Martita Simons WPtel: [address] [place] [address] [place] CANCELED 05/08/2018 Visit Diagnosis Plan: Pain [...] ICD-10 : M25.562 03/02/2018 Appointment: Marian Juares [address] [place] [address] MEDICATION REVIEW 03/02/2018 Patient Education: Patient Medication Summary Completed 03/02/2018 Appointment: Martita Simons WPtel: [address] [place] [address] 02/01/2018 Patient Education: Patient Medication Summary Completed 02/01/2018 Visit Diagnosis Plan: Other synovitis and tenosynoviti s, right hand Discussion: Right wrist cleansed with alcohol and betadine and injected laterally with 1cc 1% lidocaine with 20mg kenalog and 2mg dexamethasone, tolerated well with no complications, neosporin and bandage applied ICD-9 : 727.05 ICD-10 : M65.841 08/31/2017 Appointment: Martita Simons WPtel: [address] [place] [address] ACUTE ILLNESS 08/31/2017 Patient Education: Patient Medication Summary Completed 08/31/2017 Appointment: Martita Simons WPtel: [address] [place] [address] LAB 08/01/2017 Patient Education: Patient Medication Summary Completed 08/01/2017 Visit Diagnosis Plan: Pain in right wrist Discussion: Discussed repat injection--patient inquired ICD-9 : 719.43 ICD-10 : M25.531 07/18/2017 Visit Diagnosis Plan: 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 Discussion: Will need to be surgically r emoved ICD-9 : 214.1 ICD-10 : D17.1 07/18/2017 Visit Diagnosis Plan: Other spondylosis with radiculop athy, cervical region Discussion: If worsens then next step would be seeing surgeon and possible epidural Follow Up: 3 months ICD-9 : 721.0 ICD-10 : M47.22 07/18/2017 Visit Diagnosis Plan: Mixed hyperlipidemia Discussion: Check CMP, Lipids but needs to be fasting ICD-9 : 272.4 ICD-10 : E78.2 07/18/2017 Appointment: Martita Simons WPtel: [address] [place], [place] [phone] MEDICATION REVIEW 07/18/2017 Patient Education: Patient Medication Summary Completed 07/18/2017 Visit Diagnosis Plan: Other intervertebral disc degene ration, lumbar region Discussion: Add PT For lumbar spine ICD-9 : 722.52 ICD-10 : M51.36 04/24/2017 Visit Diagnosis Plan: Cervicalgia Discussion: Continue PT then fwup after done with PT ICD-9 : 723.1 ICD-10 : M54.2 04/24/2017 Appointment: Martita Simons WPtel: [address] [place] [address] MEDICATION REVIEW 04/24/2017 Patient Education: Patient Medication Summary Completed 04/24/2017 Patient Education: Patient Medication Summary Completed 03/22/2017 Care Plan: MRI NECK SPINE W/O DYE LOINC : 19629-9 Pending 03/22/2017 Visit Diagnosis Plan: Mixed hyperlipidemia [...] : M54.2 01/04/2017 Appointment: Martita Simons WPtel: [address] [place], [place] [phone] 01/03 ` 01/03-Confirmed MEDICATION REVIEW 01/04/2017 Patient Education: Patient Medication Summary Completed 01/04/2017 Visit Diagnosis Plan: Other enthesopathies, not elsewh ere classified Discussion: Right wrist injection as above ICD-9 : 727.05 ICD-10 : M77.8 09/12/2016 Visit Diagnosis Plan: Mixed hyperlipidemia Discussion: Lab discussed Restart lipitor/lifestyle change ICD-9 : 272.4 ICD-10 : E78.2 09/12/2016 Appointment: Martita [facility] 09/12 confirmed `sl INJECTION 09/12/2016 Patient Education: Patient Medication Summary Completed 09/12/2016 Appointment: Martita Simons [facility]Ptel[facility] [phone] [facility] [place] [facility] 09/09/2016 Patient Education: Patient Medication Summary Completed 09/09/2016 Visit Diagnosis Plan: Pain in right wrist Discussion: Will return for wrist injection ICD-9 : 719.43 ICD-10 : M25.531 09/07/2016 Visit Diagnosis Plan: Chronic obstructiv e pulmonary disease with acute lower respiratory infection Discussion: Smoking Cessation Symbicort Check CXR ICD-9 : 496 ICD-10 : J44.0 09/07/2016 Visit Diagnosis Plan: Encounter for [facility] medical examination with abnormal findings Discussion: Update fasting lab Follow Up: 4 months ICD-9 : V70.0 ICD-10 : Z00.01 09/07/2016 Visit Diagnosis Plan: Mixed hyperlipidemia Discussion: Check CMP, Lipids ICD-9 : 272.4 ICD-10 : E78.2 09/07/2016 Visit Diagnosis Plan: Nicotine dependence, unspecified , uncomplicated Discussion: Tobacco Abuse ICD-9 : 305.1 ICD-10 : F17.200 09/07/2016 Appointment: Martita Simons [facility]Ptel[facility] [phone] [facility] 09/06 confirmed~sl Annual Well Visit 09/07/2016 Patient Education: Patient Medication Summary Completed 09/07/2016 Care Plan: CHEST X-RAY 2VW FRONTAL&LATL LOINC : 06837-2 Pending 09/07/2016 Visit Plan: Filled out [place] [facility] [employer] Paperwork 08/05/2016 Patient Education: Patient Medication Summary Completed 08/05/2016 Appointment: Martita Simons WPtel: [address] [place], [place] [phone] UA 04/25/2016 Patient Education: Patient Medication Summary Completed 04/25/2016 Appointment: Martita Simonstel: [address] [place], [place] [phone] [place] LAB 09/15/2015 Patient Education: Patient Medication Summary Completed 09/15/2015 Visit Plan: SVN with Albuterol 0.083% Q4 hrs and Q2hrs prn. Supportive care. Rest, Fluids, Tylenol/Motrin prn fever or bodyaches. Notify if worsening symptoms. Daily back stretches, moist heat, Biofreeze prn Flexeril/Prednisone Notify if low back pain persists--will need x-rays Patient seeing Chiropracter [employer] 08/31/2015 Appointment: Martita Simons WPtel: [address] [place], [place] [phone] 08/28/15 cn 08/28/15 appt confirmed cn FOLLOW UP 08/31/2015 Patient Education: Patient Medication Summary Completed 08/31/2015 Appointment: Martita Simons WPtel: [address] [place], [place] [phone] UA 07/29/2015 Visit Plan: CMP, Lipids today Patient st opped chol meds 1week ago Continue hydrocodone 04/14/2015 Appointment: Martita Simons WPtel: [address] [place], [place] [phone] FOLLOW UP 04/14/2015 Patient Education: Patient Medication Summary Completed 04/14/2015 Appointment: Martita Simons WPtel: [address] [place], [place] [phone] [place] LAB 11/10/2014 Patient Education: Patient Medication Summary Completed 11/10/2014 Visit Plan: Fasting lab at end of September for Lipids/LFTs Continue hydrocodone at current dose Needs to be on low dose asprin 81mg daily With upcoming trip need to stop every 2hours and get out and stretch 10/07/2014 Appointment: Martita Simons WPtel: [address] [place], [place] [phone] FOLLOW UP 10/07/2014 Patient Education: Patient Medication Summary Completed 10/07/2014 Visit Plan: Lab discussed Will keep meds the same Keep hydrocodone at current dose--discussed schedule change on May 05 05/01/2014 Appointment: Martita Simonstel: [address] [place], [place] [phone] 04/29 confirmed when in for labs; asked if he still wanted a reminder call on Monday and he said no he would be here. FOLLOW UP 05/01/2014 Patient Education: Patient Medication Summary Completed 05/01/2014 Appointment: Martita Simonstel: [address] [place], [place] [phone] LAB 04/29/2014 Patient Education: Patient Medication Summary Completed 04/29/2014 Appointment: Martita Simons WPtel: [address] [place], [place] [phone] LAB 12/18/2013 Patient Education: Patient Medication Summary Completed 12/18/2013 Appointment: Martita Simonstel: [address] [place], [place] [phone] 12/16 FOLLOW UP 12/17/2013 Patient Education: Patient Medication Summary Completed 12/17/2013 Visit Plan: Check CXR Start SVNs with al buterol 0.083% QID 12/11/2012 Appointment: Martita Simons WPtel: [address] [place], [place] [phone] FOLLOW UP 12/11/2012 Patient Education: Patient Medication Summary Completed 12/11/2012 Visit Plan: Zithromax for 1wk Prednisone for 1wk Symbicort 160/4.5 2p BID 12/04/2012 Appointment: Martita Simonstel: [address] [place], [place] [phone] ACUTE ILLNESS 12/04/2012 Patient Education: Patient Medication Summary Completed 12/04/2012 Visit Plan: Continue nystatin/TAC cream and add Lamisil for next month No lipitor for next month If rash persists then will need biopsy Trial of chantix--warned of suicidal ideation/depression Call in 1mo on finger lesion and chantix 08/14/2012 Appointment: Martita Simonstel: [address] [place] [id number] 08/13 no answer...08/13 pt called back and confirmed OFFICE SURGERY 08/14/2012 Patient Education: Patient Medication Summary Completed 08/14/2012 Appointment: Martita Simons WPtel: [address] [place], [place] [phone] FOLLOW UP 07/17/2012 Patient Education: Patient Medication Summary Completed 07/17/2012 Appointment: Martita Simons WPtel: [address] [place], [place] [phone] Appointment was confirmed by CN on 06/29 12/ pt called, in family, was in [place] just got yash k 07/03 - [facility] ACUTE ILLNESS 07/02/2012 Visit Plan: Obtain US results of RUE DC coumadin as has been 3mos and start Aspirin 325mg daily Check CMP, Lipids, CBC, ESR, CRP today 03/20/2012 Appointment: Martita Simons WPtel: [address] [place] [id number] FOLLOW UP 03/20/2012 Patient Education: Patient Medication Summary Completed 03/20/2012 Appointment: Martita Simons WPtel: [address] [place], [place] [phone] [place] Patient called 2 hours past appt. Said saw a specialist today and specialist is not concerned about blod clot so doesnt want to reschedule-CN FOLLOW UP 12/14/2011 Appointment: Martita Simons WPtel: [facility] US FOLLOW UP 12/13/2011 Visit Plan: Continue coumadin--IM is fol lowing level--discussed will likely need 6-12wks Observe contusion to right lower back Fwup with ortho as scheduled 12/08/2011 Appointment: Martita Simons WPtel: [address] [place], [place] [phone] ACUTE ILLNESS 12/08/2011 Patient Education: Patient Medication Summary Completed 12/08/2011 Visit Plan: Check fasting lab when goes for pre-op lab including CMP, CBC, Lipids, TSH, Free T4, PSA, uric acid Needs colonoscopy Hydro[facility]one refilled #80 to [facility] 08/11/2011 Appointment: Martita Simons WPtel: [phone] [facility] ESTABLISHED PATIENT 08/11/2011 Patient Education: Patient Medication Summary Completed 08/11/2011 Visit Plan: Obtain most recent lab resul ts Cont current meds Explained that cannot refill pain meds without current rx Discussed Synvisc injections and see ortho as oxycontin for knee arthritis is strong pain med 05/26/2010 Appointment: Martita Simons WPtel: [phone] [facility] NEW PATIENT 05/26/2010 Patient Education: Patient Medication Summary Completed 05/26/2010 Instructions Comment . [facility] . SVN with Albuterol 0.083% Q4hrs [...]
--- OUTSIDE RECORDS SUMMARY | 2020-01-12 17:39 | XMS REPORT | CCD ---
Author Author Sdy Simons D.O. Organization [facility]ARTITA SIMONS DO [facility] Address [address] [place] [address] Phone Care Team Providers Care Renewals Specialist Name Role Phone Martita Simons D.O., PP Unavailable CCM Unavailable Summary Purpose Interface Exchange Insurance Providers Payer name Policy type / Coverage type Covered green party ID Effective Begin Date Effective End Date [facility] Commercial Insurance [id number] Unknown Family history Brother Diagnosis Age At Onset No Family Disease Entered N/A Father Diagnosis Age At Onset No Family Disease Entered N/A Mother Diagnosis Age At Onset No Family Disease Entered N/A Social History Social History Element Codes Description Effective Dates Tobacco history SNOMED CT: 41851562 Current every day smoker 06/2012 Number of [...] hydrocodone 10 mg-acetaminophen 325 mg tablet RxNorm: 028991 1 Tablet(s) PO Q6H as needed for pain 10/24/2019 No Stop Date Active (Response to an electronic controlled substance refill request - RxReferenceNumber: [id number]|1|0|1) hydrocodone 10 mg-acetaminophen 325 mg tablet RxNorm: 680315 1 Tablet(s) PO Q6H as needed for pain 09/26/2019 10/23/2019 Inactive (Response to an electronic controlled substance refill request - RxReferenceNumber: [id number]|1|0|1) hydrocodone 10 mg-acetaminophen 325 mg tablet RxNorm: 444556 1 Tablet(s) PO Q6H as needed for pain 08/26/2019 09/25/2019 Inactive (Response to an electronic controlled substance refill request - RxReferenceNumber: [id number]|1|0|1) hydrocodone 10 mg-acetaminophen 325 mg tablet RxNorm: 928378 1 Tablet(s) PO Q6H as needed for pain 07/25/2019 08/25/2019 Inactive (Response to an electronic controlled substance refill request - RxReferenceNumber: [id number]|1|0|1) hydrocodone 10 mg-acetaminophen 325 mg tablet RxNorm: 451804 1 Tablet(s) PO Q6H as needed for pain 06/26/2019 07/24/2019 Inactive (Response to an electronic controlled substance refill request - RxReferenceNumber: [id number]|1|0|1) hydrocodone 10 mg-acetaminophen 325 mg tablet RxNorm: 026578 1 Tablet(s) PO Q6H as needed for pain 05/28/2019 06/25/2019 Inactive (Response to an electronic controlled substance refill request - RxReferenceNumber: [id number]|1|0|1) hydrocodone 10 mg-acetaminophen 325 mg tablet RxNorm: 645106 1 Tablet(s) PO Q6H as needed for pain 02/25/2019 05/27/2019 Inactive (Response to an electronic controlled substance refill request - RxReferenceNumber: [id number]|1|0|1) hydrocodone 10 mg-acetaminophen 325 mg tablet RxNorm: 822526 1 Tablet(s) PO Q6H as needed for pain 11/26/2018 02/24/2019 Inactive (Response to an electronic controlled substance refill request - RxReferenceNumber: [id number]|1|0|1) hydrocodone 10 mg-acetaminophen 325 mg tablet RxNorm: 662868 1 Tablet(s) PO Q6H as needed for pain 10/30/2018 11/25/2018 Inactive (Response to an electronic controlled substance refill request - RxReferenceNumber: [id number]|1|0|1) hydrocodone 10 mg-acetaminophen 325 mg tablet RxNorm: 777705 1 Tablet(s) PO Q6H as needed for pain 09/26/2018 10/29/2018 Inactive (Response to an electronic controlled substance refill request - RxReferenceNumber: [id number]|1|0|1) hydrocodone 10 mg-acetaminophen 325 mg tablet RxNorm: 397245 1 Tablet(s) PO Q6H as needed for pain 08/30/2018 09/25/2018 Inactive (Response to an electronic controlled substance refill request - RxReferenceNumber: [id number]|1|0|1) hydrocodone 10 mg-acetaminophen 325 mg tablet RxNorm: 804134 1 Tablet(s) PO Q6H as needed for pain 08/01/2018 08/29/2018 Inactive (Response to an electronic controlled substance refill request - RxReferenceNumber: [id number]|1|0|1) hydrocodone 10 mg-acetaminophen 325 mg tablet RxNorm: 218381 1 Tablet(s) PO Q6H as needed for pain 07/04/2018 07/31/2018 Inactive (Response to an electronic controlled substance refill request - RxReferenceNumber: [id number]|1|0|1) hydrocodone 10 mg-acetaminophen 325 mg tablet RxNorm: 114943 1 Tablet(s) PO Q6H as needed for pain 05/31/2018 07/03/2018 Inactive (Response to an electronic controlled substance refill request - RxReferenceNumber: [id number]|1|0|1) hydrocodone 10 mg-acetaminophen 325 mg tablet RxNorm: 318442 1 Tablet(s) PO Q6H as needed for pain 05/01/2018 05/30/2018 Inactive (Response to an electronic controlled substance refill request - RxReferenceNumber: [id number]|1|0|1) hydrocodone 10 mg-acetaminophen 325 mg tablet RxNorm: 273455 1 Tablet(s) PO Q6H as needed for pain 04/03/2018 04/30/2018 Inactive (Response to an electronic controlled substance refill request - RxReferenceNumber: [id number]|1|0|1) hydrocodone 10 mg-acetaminophen 325 mg tablet RxNorm: 546292 1 Tablet(s) PO Q6H as needed for pain 02/26/2018 04/02/2018 Inactive (Response to an electronic controlled substance refill request - RxReferenceNumber: [id number]|1|0|1) clotrimazole-betamethasone 1 %-0.05 % topical cream RxNorm: 064666 TOP As Directed CALL IF NO IMPROVEMENT IN 2 WEEKS 01/30/2018 01/29/2018 Inact kole [SAVINGS FOR UNINSURED PATIENTS -- BIN:[id number], PCN: [id number], Group: [id number], ID# [id number], Process claim through [employer], for questions: . THIS IS NOT INSURANCE.] hydrocodone 10 mg-acetaminophen 325 mg tablet RxNorm: 666622 1 Tablet(s) PO Q6H as needed for pain 01/29/2018 02/25/2018 Inactive (Response to an electronic controlled substance refill request - RxReferenceNumber: [id number]|1|0|1) hydrocodone 10 mg-acetaminophen 325 mg tablet RxNorm: 274288 1 Tablet(s) PO Q6H as needed for pain 12/28/2017 01/28/2018 Inactive (Response to an electronic controlled substance refill request - RxReferenceNumber: [id number]|1|0|1) hydrocodone 10 mg-acetaminophen 325 mg tablet RxNorm: 488477 1 Tablet(s) PO Q6H as needed for pain 11/29/2017 12/27/2017 Inactive (Response to an electronic controlled substance refill request - RxReferenceNumber: [id number]|1|0|1) hydrocodone 10 mg-acetaminophen 325 mg tablet RxNorm: 175128 1 Tablet(s) PO Q6H as needed for pain 11/02/2017 11/28/2017 Inactive (Response to an electronic controlled substance refill request - RxReferenceNumber: [id number]|1|0|1) hydrocodone 10 mg-acetaminophen 325 mg tablet RxNorm: 518563 1 Tablet(s) PO Q6H as needed for pain 10/02/2017 11/01/2017 Inactive (Response to an electronic controlled substance refill request - RxReferenceNumber: [id number]|1|0|1) hydrocodone 10 mg-acetaminophen 325 mg tablet RxNorm: 355275 1 Tablet(s) PO Q6H as needed for pain 08/30/2017 10/01/2017 Inactive (Response to an electronic controlled substance refill request - RxReferenceNumber: [id number]|1|0|1) hydrocodone 10 mg-acetaminophen 325 mg tablet RxNorm: 379153 1 Tablet(s) PO Q6H as needed for pain 08/01/2017 08/29/2017 Inactive (Response to an electronic controlled substance refill request - RxReferenceNumber: [id number]|1|0|1) hydrocodone 10 mg-acetaminophen 325 mg tablet RxNorm: 687671 1 Tablet(s) PO Q6H as needed for pain 06/26/2017 07/31/2017 Inactive (Response to an electronic controlled substance refill request - RxReferenceNumber: [id number]|1|0|1) hydrocodone 10 mg-acetaminophen 325 mg tablet RxNorm: 732878 1 Tablet(s) PO Q6H as needed for pain 06/26/2017 06/30/2019 Inactive (Response to an electronic controlled substance refill request - RxReferenceNumber: [id number]|1|0|1) hydrocodone 10 mg-acetaminophen 325 mg tablet RxNorm: 268005 1 Tablet(s) PO Q6H as needed for pain 03/27/2017 06/25/2017 Inactive (Response to an electronic controlled substance refill request - RxReferenceNumber: [id number]|1|0|1) hydrocodone 10 mg-acetaminophen 325 mg tablet RxNorm: 336019 1 Tablet(s) PO Q6H as needed for pain 02/23/2017 03/26/2017 Inactive (Response to an electronic controlled substance refill request - RxReferenceNumber: [id number]|1|0|1) hydrocodone 10 mg-acetaminophen 325 mg tablet RxNorm: 055399 1 Tablet(s) PO Q6H as needed for pain 01/24/2017 02/22/2017 Inactive (Response to an electronic controlled substance refill request - RxReferenceNumber: [id number]|1|0|1) hydrocodone 10 mg-acetaminophen 325 mg tablet RxNorm: 129910 1 Tablet(s) PO Q6H as needed for pain 12/27/2016 06/30/2019 Inactive (Response to an electronic controlled substance refill request - RxReferenceNumber: [id number]|1|0|1) hydrocodone 10 mg-acetaminophen 325 mg tablet RxNorm: 669489 1 Tablet(s) PO Q6H as needed for pain 12/27/2016 01/23/2017 Inactive (Response to an electronic controlled substance refill request - RxReferenceNumber: [id number]|1|0|1) hydrocodone 10 mg-acetaminophen 325 mg tablet RxNorm: 798512 1 Tablet(s) PO Q6H as needed for pain 11/23/2016 12/26/2016 Inactive (Response to an electronic controlled substance refill request - RxReferenceNumber: [id number]|1|0|1) hydrocodone 10 mg-acetaminophen 325 mg tablet RxNorm: 904610 1 Tablet(s) PO Q6H as needed for pain 10/20/2016 11/22/2016 Inactive (Response to an electronic controlled substance refill request - RxReferenceNumber: [id number]|1|0|1) hydrocodone 10 mg-acetaminophen 325 mg tablet RxNorm: 145103 1 Tablet(s) PO Q6H as needed for pain 09/26/2016 10/19/2016 Inactive (Response to an electronic controlled substance refill request - RxReferenceNumber: [id number]|1|0|1) hydrocodone 10 mg-acetaminophen 325 mg tablet RxNorm: 733663 1 Tablet(s) PO Q6H as needed for pain 07/27/2016 09/25/2016 Inactive (Response to an electronic controlled substance refill request - RxReferenceNumber: [id number]|1|0|1) hydrocodone 10 mg-acetaminophen 325 mg tablet RxNorm: 738319 1 Tablet(s) PO Q6H as needed for pain 05/04/2016 07/26/2016 Inactive (Response to an electronic controlled substance refill request - RxReferenceNumber: [id number]|1|0|1) hydrocodone 10 mg-acetaminophen 325 mg tablet RxNorm: 687164 1 Tablet(s) PO Q6H as needed for pain 03/31/2016 05/03/2016 Inactive (Response to an electronic controlled substance refill request - RxReferenceNumber: [id number]|1|0|1) citalopram 10 mg tablet RxNorm: 868256 1 Tablet(s) PO QD 09/28/2015 0 09/27/2015 Inactive citalopram 10 mg tablet RxNorm: 161121 1 Tablet(s) PO QD 09/28/2015 0 09/06/2016 Inactive Wellbutrin SR 150 mg tablet,sustained-release RxNorm: 255107 1 Tablet(s) PO QAM 09/25/2015 09/06/2016 Inactive prednisone 20 mg tablet RxNorm: 130462 1 Tablet(s) PO T ID for 3 days then 1 po BID for 3 days then one daily for 3 days 08/31/2015 09/06/2016 Inactiv e cyclobenzaprine 10 mg tablet RxNorm: 110094 1 Tablet(s) PO TID as needed for muscle spasm 08/31/2015 07/17/2017 Inactive hydrocodone 10 mg-acetaminophen 325 mg tablet RxNorm: 009863 1 Tablet(s) PO Q6H as needed for pain 08/26/2015 03/30/2016 Inactive (Response to an electronic controlled substance refill request - RxReferenceNumber: [id number]|1|0|1) hydrocodone 10 mg-acetaminophen 325 mg tablet RxNorm: 127374 1 Tablet(s) PO Q6H as needed for pain 07/28/2015 08/25/2015 Inactive (Response to an electronic controlled substance refill request - RxReferenceNumber: [id number]|1|0|1) hydrocodone 10 mg-acetaminophen 325 mg tablet RxNorm: 039946 1 Tablet(s) PO Q6H as needed for pain 06/23/2015 07/27/2015 Inactive (Response to an electronic controlled substance refill request - RxReferenceNumber: [id number]|1|0|1) hydrocodone 10 mg-acetaminophen 325 mg tablet RxNorm: 335306 1 Tablet(s) PO Q6H as needed for pain 05/21/2015 06/22/2015 Inactive (Response to an electronic controlled substance refill request - RxReferenceNumber: [id number]|1|0|1) azithromycin 250 mg tablet RxNorm: 643828 2 Tablet(s) P O on day one, then one tablet on days 2 - 5 04/27/2015 08/30/2015 Inactive hydrocodone 10 mg-acetaminophen 325 mg tablet RxNorm: 741685 1 Tablet(s) PO Q6H as needed for pain 03/25/2015 05/20/2015 Inactive (Response to an electronic controlled substance refill request - RxReferenceNumber: [id number]|1|0|1) hydrocodone 10 mg-acetaminophen 325 mg tablet RxNorm: 512690 1 Tablet(s) PO Q6H as needed for pain 02/24/2015 03/24/2015 Inactive (Response to an electronic controlled substance refill request - RxReferenceNumber: [id number]|1|0|1) hydrocodone 10 mg-acetaminophen 325 mg tablet RxNorm: 168331 1 Tablet(s) PO Q6H as needed for pain 01/23/2015 02/23/2015 Inactive (Response to an electronic controlled substance refill request - RxReferenceNumber: [id number]|1|0|1) hydrocodone 10 mg-acetaminophen 325 mg tablet RxNorm: 533815 1 Tablet(s) PO Q6H as needed for pain 12/23/2014 01/22/2015 Inactive (Response to an electronic controlled substance refill request - RxReferenceNumber: [id number]|1|0|1) hydrocodone 10 mg-acetaminophen 325 mg tablet RxNorm: 322008 1 Tablet(s) PO Q6H as needed for pain 11/24/2014 12/22/2014 Inactive (Response to an electronic controlled substance refill request - RxReferenceNumber: [id number]|1|0|1) hydrocodone 10 mg-acetaminophen 325 mg tablet RxNorm: 541256 1 Tablet(s) PO Q6H as needed for pain 10/28/2014 11/23/2014 Inactive (Response to an electronic controlled substance refill request - RxReferenceNumber: [id number]|1|0|1) hydrocodone 10 mg-acetaminophen 325 mg tablet RxNorm: 909474 1 Tablet(s) PO Q6H as needed for pain 09/25/2014 10/27/2014 Inactive (Response to an electronic controlled substance refill request - RxReferenceNumber: [id number]|1|0|1) Lipitor 80 mg tablet RxNorm: 584085 1 Tablet(s) PO QHS 09/24/2014 Inactive hydrocodone 10 mg-acetaminophen 325 mg tablet RxNorm: 791712 1 Tablet(s) PO Q6H as needed for pain 07/30/2014 09/24/2014 Inactive (Response to an electronic controlled substance refill request - RxReferenceNumber: [id number]|1|0|1) hydrocodone 10 mg-acetaminophen 325 mg tablet RxNorm: 920069 1 Tablet(s) PO Q6H as needed for pain 05/27/2014 07/29/2014 Inactive (Response to an electronic controlled substance refill request - RxReferenceNumber: [id number]|1|0|1) clotrimazole-betamethasone 1 %-0.05 % topical cream RxNorm: 742124 TOP As Directed 05/01/2014 08/30/2015 Inactive [SAVINGS FOR UNI NSURED PATIENTS -- BIN:[id number], PCN: ASPROD1, Group: [id number], ID# [id number], Process claim through [employer], for questions: . THIS IS NOT INSURANCE.] Lipitor 80 mg tablet RxNorm: 785395 1 Tablet(s) PO QHS 04/28/2014 Inactive hydrocodone 10 mg-acetaminophen 325 mg tablet RxNorm: 236483 1 Tablet(s) PO Q6H as needed for pain 04/28/2014 05/26/2014 Inactive (Response to an electronic controlled substance refill request - RxReferenceNumber: [id number]|1|0|1) hydrocodone 10 mg-acetaminophen 325 mg tablet RxNorm: 074981 1 Tablet(s) PO Q6H as needed for pain 03/27/2014 04/27/2014 Inactive (Response to an electronic controlled substance refill request - RxReferenceNumber: [id number]|1|0|1) hydrocodone 10 mg-acetaminophen 325 mg tablet RxNorm: 902718 1 Tablet(s) PO Q6H as needed for pain 12/20/2013 12/20/2013 Inactive (Appended: Co ntrolled substance eRx refill - RxReferenceNumber: [id number]|1|0|1) hydrocodone 10 mg-acetaminophen 325 mg tablet RxNorm: 297038 TAKE 1 TABLET BY MOUTH EVERY 6 HOURS NEEDED FOR PAIN 12/20/2013 01/12/2014 Inactive (Response to an electronic controlled substance refill request - RxReferenceNumber: [id number]|1|0|1) hydrocodone 10 mg-acetaminophen 325 mg tablet RxNorm: 153150 1 Tablet(s) PO Q6H as needed for pain 09/03/2013 12/19/2013 Inactive (Appended: Co ntrolled substance eRx refill - RxReferenceNumber: [id number]|1|0|1) hydrocodone 10 mg-acetaminophen 325 mg tablet RxNorm: 007120 Tablet(s) PO TAKE 1 TABLET BY MOUTH EVERY 6 HOURS NEEDED FOR PAIN 08/08/2013 09/03/2013 Inactive (Appended: Controlled substance eRx refill - RxReferenceNumber: [id number]|1|0|1) hydrocodone 10 mg-acetaminophen 325 mg tablet RxNorm: 041880 Tablet(s) PO TAKE 1 TABLET BY MOUTH EVERY 6 HOURS NEEDED FOR PAIN 07/11/2013 08/07/2013 Inactive (Appended: Controlled substance eRx refill - RxReferenceNumber: [id number]|1|0|1) hydrocodone 10 mg-acetaminophen 325 mg tablet RxNorm: 901180 2 Tablet(s) PO TAKE 1 TABLET BY MOUTH EVERY 6 HOURS NEEDED FOR PAIN 06/12/2013 3 Inactive (Appended: Controlled substance eRx ref ill - RxReferenceNumber: [id number]|1|0|1) hydrocodone 10 mg-acetaminophen 325 mg tablet RxNorm: 747564 2 1 Tablet(s) PO Q6H NEEDED FOR PAIN 05/15/2013 06/12/2013 Inactive (Appended: Co ntrolled substance eRx refill - RxReferenceNumber: [id number]|1|0|1) hydrocodone 10 mg-acetaminophen 325 mg tablet RxNorm: 124508 2 Tablet(s) PO TAKE 1 TO 2 TABLETS BY MOUTH EVERY 6 HOURS NEEDED FOR PAIN 04/18/2013 No Stop Date Active (Appended: Controlled substa nce eRx refill - RxReferenceNumber: [id number]|1|0|1) hydrocodone 10 mg-acetaminophen 325 mg tablet RxNorm: 729285 2 Tablet(s) PO TAKE 1 TO 2 TABLETS BY MOUTH EVERY 6 HOURS NEEDED FOR PAIN 03/19/2013 No Stop Date Active (Appended: Controlled substa nce eRx refill - RxReferenceNumber: [id number]|1|0|1) hydrocodone 10 mg-acetaminophen 325 mg tablet RxNorm: 904781 2 Tablet(s) PO TAKE 1 TO 2 TABLETS BY MOUTH EVERY 6 HOURS NEEDED FOR PAIN 02/06/2013 Inactive (Appended: Controlled substance eRx refi ll - RxReferenceNumber: [id number]|1|0|1) hydrocodone 10 mg-acetaminophen 325 mg tablet RxNorm: 487681 2 Tablet(s) PO TAKE 1 TO 2 TABLETS BY MOUTH EVERY 6 HOURS NEEDED FOR PAIN 01/08/201304/2013 Inactive (Appended: Controlled substance eRx ref ill - RxReferenceNumber: [id number]|1|0|1) Zithromax 250 mg tablet RxNorm: 732055 2 Tablet(s) PO QD 12/04/2012 0 12/10/2012 Inactive prednisone 20 mg tablet RxNorm: 597245 1 Tablet(s) PO BID 12/04/2012 12/10/2012 Inactive atorvastatin 40 mg tablet RxNorm: 555366 1 Tablet(s) PO QD 11/09/19 13 12/17/2013 Inactive hydrocodone 10 mg-acetaminophen 325 mg tablet RxNorm: 083535 2 Tablet(s) PO TAKE 1 TO 2 TABLETS BY MOUTH EVERY 6 HOURS NEEDED FOR PAIN 10/18/201205/2013 Inactive (Appended: Controlled substance eRx ref ill - RxReferenceNumber: [id number]|1|0|1) hydrocodone 10 mg-acetaminophen 325 mg tablet RxNorm: 218510 2 1-2 Tablet(s) PO Q6H as needed for pain 09/06/2012 10/18/2012 Inactive Lamisil 250 mg tablet RxNorm: 853988 1 Tablet(s) PO QD 08/14/2012 Inactive atorvastatin 40 mg tablet RxNorm: 365385 1 Tablet(s) PO QD 08/08/19 13 11/05/2012 Inactive prednisone 20 mg tablet RxNorm: 387936 1 Tablet(s) PO BID 07/17/2012 07/23/2012 Inactive Wellbutrin SR 150 mg tablet,extended release RxNorm: 499645 1 T ablet(s) PO BID 07/17/2012 08/13/2012 Inactive meloxicam 15 mg tablet RxNorm: 923853 1 Tablet(s) PO QD for pain 07/16/2012 Inactive atorvastatin 40 mg tablet RxNorm: 834499 1 Tablet(s) PO QD 06/27/20 12 08/07/2012 Inactive hydrocodone-acetaminophen 10 mg-325 mg tablet RxNorm: 365974 2 1-2 Tablet(s) PO Q6H as needed for pain 05/23/2012 No Stop Date Active hydrocodone-acetaminophen 10 mg-325 mg tablet RxNorm: 739978 2 1-2 Tablet(s) PO Q6H as needed for pain 04/24/2012 No Stop Date Active hydrocodone-acetaminophen 10 mg-325 mg tablet RxNorm: 730439 2 1-2 Tablet(s) PO Q6H as needed for pain 02/08/2012 No Stop Date Active hydrocodone-acetaminophen 10 mg-325 mg Tab RxNorm: 4107584 1-2 Tablet(s) PO Q6H as needed for pain 01/02/2012 No Stop Date Active hydrocodone-acetaminophen 10 mg-325 mg Tab RxNorm: 6070868 1-2 Tablet(s) PO Q6H as needed for pain 11/29/2011 No Stop Date Active hydrocodone-acetaminophen 10 mg-325 mg Tab RxNorm: 2318932 1-2 Tablet(s) PO Q6H as needed for pain 10/24/2011 No Stop Date Active hydrocodone-acetaminophen 10 mg-325 mg Tab RxNorm: 9194837 1-2 Tablet(s) PO Q6H as needed for pain 10/07/2011 No Stop Date Active simvastatin 40 mg Tab RxNorm: 435856 1 Tablet(s) PO QHS 08/11/2011 Inactive clopidogrel 75 mg tablet RxNorm: 086792 1 Tablet(s) PO QD No Start Da te Active metoprolol succinate ER 25 mg tablet,extended release 24 hr RxNorm: 706088 1 Tablet(s) PO QD No Start Date Active Symbicort 160 mcg-4.5 mcg/actuation HFA aerosol inhaler RxNo rm: 1762109 2 INH QD No Start Date Active atorvastatin 40 mg tablet RxNorm: 029922 1 Tablet(s) PO QD No Start D ate Active aspirin 81 mg tablet RxNorm: 922193 1 Tablet(s) PO QD No Start Date Active Vitamin D3 2,000 unit tablet RxNorm: 432527 3 Tablet(s) PO No Start D ate Active lisinopril 5 mg tablet RxNorm: 036182 1 Tablet(s) PO QD No Start Date Active hydrocodone-acetaminophen 10 mg-325 mg Tab RxNorm: 0026372 1-2 Tablet(s) PO Q6H as needed for pain No Start Date 10/06/2011 Inactive Wellbutrin SR 150 mg tablet,sustained-release RxNorm: 408759 1 Tablet(s) PO QAM No Start Date 09/24/2015 Inactive OxyContin 15 mg 12 hr Tab RxNorm: 6050525 1 Tablet(s) PO BID No Sta rt Date 08/10/2011 Inactive warfarin 5 mg Tab RxNorm: 103086 1 Tablet(s) PO QD No Start Date 03/01 Inactive albuterol sulfate 1.25 mg/3 mL Neb Solution RxNorm: 922977 1 Unit Dose INH prn wheezing, congestion, shortness of breath No Start Date 04/30/2014 Inacti ve azithromycin 250 mg tablet RxNorm: 731081 2 Tablet(s) P O on day one, then one tablet on days 2 - 5 No Start Date 04/26/2015 Inactive warfarin 10 mg Tab RxNorm: 723717 1 Tablet(s) PO QOD No Start Date Inactive Symbicort Inhl RxNorm: Inhalation No Start Date 12/16/2013 Inactive Trilipix 135 mg Cap RxNorm: 190577 1 Capsule(s) PO QD No Start Date 0 12/07/2011 Inactive Chantix Starting Month Box 0.5 mg (11)-1 mg (42) table ts in dose pack RxNorm: 939425 Tablet(s) PO as directed No Start Date 12/03/2012 Inactive clotrimazole-betamethasone 1 %-0.05 % topical cream RxNorm: 165379 TOP As Directed No Start Date 04/30/2014 Inactive nystatin-triamcinolone 100,000 unit/g-0.1 % Topical Cream Rx Norm: 1379645 Application TOP BID for 2-4weeks No Start Date 12/03/2012 Inactive Lovastatin 20 mg Tab RxNorm: 786557 1 Tablet(s) PO QHS No Start Date 08/10/2011 Inactive krill oil oral RxNorm: 39488 oral No Start Date 06/30/2019 Inacti ve warfarin 7.5 mg Tab RxNorm: 148128 1 Tablet(s) PO QOD No Start Date 1 09/16/2011 Inactive Lipitor 80 mg tablet RxNorm: 271064 1 Tablet(s) PO QHS No Start Date 04/27/2014 Inactive simvastatin 40 mg Tab RxNorm: 547122 1 Tablet(s) PO QHS No Start Da te 08/10/2011 Inactive Gemfibrozil 600 mg Tab RxNorm: 050006 1 Tablet(s) PO QHS No Start D ate 08/10/2011 Inactive Medication Administered No Medication Administered data Immunizations No Immunization data Results Observation Observation Code Item Item Code Result Date S ervice Location COMPLETE BLOOD COUNT [id number] WBC 9.7 10e9/L 06/19/20 18 Unknown COMPLETE BLOOD COUNT [id number] RBC 5.35 10e12/L 2017 Unknown COMPLETE BLOOD COUNT [id number] HEMOGLOBIN 17.1 g/dL 06/19/20 18 Unknown COMPLETE BLOOD COUNT [id number] HEMATOCRIT 52.4 % 06/19/20 18 Unknown COMPLETE BLOOD COUNT [id number] MCV 97.9 fL 8 Unknown COMPLETE BLOOD COUNT [id number] MCH 32.0 pg 8 Unknown COMPLETE BLOOD COUNT [id number] MCHC 32.6 g/dL 8 Unknown COMPLETE BLOOD COUNT [id number] PLATELET COUNT 257 10e9/L Unknown COMPLETE BLOOD COUNT [id number] Mean Plt Volume 11.2 fL Unknown COMPLETE BLOOD COUNT [id number] Neut Auto 54.6 % 8 Unknown COMPLETE BLOOD COUNT [id number] Lymph Auto 33.3 % 06/19/20 18 Unknown COMPLETE BLOOD COUNT [id number] [place] Auto 9.1 % 8 Unknown COMPLETE BLOOD COUNT [id number] Eos Auto 2.6 % 8 Unknown COMPLETE BLOOD COUNT [id number] RDW 14.4 % 8 Unknown COMPLETE BLOOD COUNT [id number] Baso Auto 0.4 % 8 Unknown COMPLETE BLOOD COUNT [id number] Neutrophil Abs 5.30 10e9/L Unknown COMPLETE BLOOD COUNT 3137007 Lymphocyte Abs 3.23 10e9/L Unknown COMPLETE BLOOD COUNT [id number] Monocyte Abs 0.88 10e9/L 06/01 Unknown COMPLETE BLOOD COUNT [id number] Eosinophil Abs 0.25 10e9/L Unknown COMPLETE BLOOD COUNT [id number] RDW-SD 51.8 fL 8 Unknown COMPLETE BLOOD COUNT [id number] Basophil Abs 0.04 10e9/L 06/01 Unknown [facility] 89651 Cholesterol 222 mg/dL 06/19/2018 Unkno wn LIP[facility] 75420 Triglyceride 111 mg/dL 06/19/2018 Unkn own L[facility] 22104 HDL CHOLESTEROL 37 mg/dL 06/19/2018 U nknown L[facility] 34005 Chol/HDL Ratio 6.00 ratio 06/19/2018 U nknown LIP[facility] 28235 NON-HDL Chol 185 mg/dL 06/19/2018 Unkn own LIP[facility] GROUP 31500 LDL Cholesterol 163 mg/dL 06/19/2018 U nknown VITAMIN B 12 68024 VITAMIN B12 532 pg/mL 06/19/2018 Unkn own THYROID STIMULATING HORMONE 55838 TSH 2.685 uIU/mL 06/19/2018 Unknown COMPREHENSIVE METABOLIC 18949 AST 15 U/L 2017 Unknown COMPREHENSIVE METABOLIC 94247 ALT 21 U/L 2017 Unknown COMPREHENSIVE METABOLIC 13713 BUN 16 mg/dL 2017 Unknown COMPREHENSIVE METABOLIC 94804 ALBUMIN 4.1 g/dL 2017 Unknown COMPREHENSIVE METABOLIC 00637 CHLORIDE 99 mmol/L 2017 Unknown COMPREHENSIVE METABOLIC 52523 Bili Total 0.4 mg/dL 06/19 Unknown COMPREHENSIVE METABOLIC 28977 ALK PHOS 43 U/L 2017 Unknown COMPREHENSIVE METABOLIC 79781 SODIUM 136 mmol/L 06/19 Unknown COMPREHENSIVE METABOLIC 05279 CREATININE 0.82 mg/dL 06/01 Unknown COMPREHENSIVE METABOLIC 05132 CALCIUM 9.5 mg/dL 2017 Unknown COMPREHENSIVE METABOLIC 38476 POTASSIUM 5.2 mmol/L 06/19 Unknown COMPREHENSIVE METABOLIC 73459 Total Protein 6.7 g/dL Unknown COMPREHENSIVE METABOLIC 15984 Glucose 81 mg/dL 2017 Unknown COMPREHENSIVE METABOLIC 73446 Bicarbonate 30 mmol/L 06/01 Unknown COMPREHENSIVE METABOLIC 15849 AGAP 7 mmol/L 2017 Unknown FREE T4 97254 T4 Free 0.85 ng/dL 06/19/2018 Unknown GFR CALC 7905046 GFR Non Afr Amr >60 mL/min 06/19/2018 Un known GFR CALC 3028446 GFR Afr Amr >60 mL/min 06/19/2018 Unknow n VITAMIN D TOTAL (25 HYDROXY) 13409 Vitamin D 25 OH 24.1 ng/mL 06/19/2018 Unknown PSA EQUIMOLAR TROY 86974 PSA Total 0.88 ng/mL 8 Unknown GFR CALC 3596683 GFR Non Afr Amr >60 mL/min 09/09/2016 Un known GFR CALC 7277664 GFR Afr Amr >60 mL/min 09/09/2016 Unknow n COMPLETE BLOOD COUNT 5535394 WBC 11.7 10e9/L 017 Unknown COMPLETE BLOOD COUNT 4198569 RBC 5.54 10e12/L 2016 Unknown COMPLETE BLOOD COUNT 9832461 HEMOGLOBIN 17.6 g/dL 09/09/19 17 Unknown COMPLETE BLOOD COUNT 2981673 HEMATOCRIT 52.3 % 09/09/19 17 Unknown COMPLETE BLOOD COUNT 8136964 MCV 94.4 fL 7 Unknown COMPLETE BLOOD COUNT 5070207 MCH 31.8 pg 7 Unknown COMPLETE BLOOD COUNT 7678933 MCHC 33.7 g/dL 7 Unknown COMPLETE BLOOD COUNT 4109535 PLATELET COUNT 259 10e9/L 04/2017 Unknown COMPLETE BLOOD COUNT 7049267 Mean Plt Volume 11.2 fL 04/2017 Unknown COMPLETE BLOOD COUNT 3886131 Neut Auto 53.6 % 7 Unknown COMPLETE BLOOD COUNT 5066387 Lymph Auto 36.2 % 09/09/19 17 Unknown COMPLETE BLOOD COUNT 0219294 [place] Auto 7.9 % 7 Unknown COMPLETE BLOOD COUNT 0141748 RDW 14.2 % 7 Unknown COMPLETE BLOOD COUNT 8370864 Eos Auto 2.1 % 7 Unknown COMPLETE BLOOD COUNT 2901811 Baso Auto 0.2 % 7 Unknown COMPLETE BLOOD COUNT 8083208 Neutrophil Abs 6.27 10e9/L Unknown COMPLETE BLOOD COUNT 3650149 Lymphocyte Abs 4.24 10e9/L Unknown COMPLETE BLOOD COUNT [id number] Monocyte Abs 0.92 10e9/L 08/31 Unknown COMPLETE BLOOD COUNT 5939166 Eosinophil Abs 0.25 10e9/L Unknown COMPLETE BLOOD COUNT 7993043 Basophil Abs 0.02 10e9/L 08/31 Unknown COMPLETE BLOOD COUNT 4242681 RDW-SD 48.1 fL 7 Unknown COMPREHENSIVE METABOLIC 17402 AST 19 U/L 2016 Unknown COMPREHENSIVE METABOLIC 50521 ALT 25 U/L 2016 Unknown COMPREHENSIVE METABOLIC 24737 BUN 16 mg/dL 2016 Unknown COMPREHENSIVE METABOLIC 95049 ALBUMIN 4.8 g/dL 2016 Unknown COMPREHENSIVE METABOLIC 59720 CHLORIDE 100 mmol/L 09/09 Unknown COMPREHENSIVE METABOLIC 87382 Bili Total 0.7 mg/dL 09/09 Unknown COMPREHENSIVE METABOLIC 38781 ALK PHOS 50 U/L 2016 Unknown COMPREHENSIVE METABOLIC 84432 SODIUM 136 mmol/L 09/09 Unknown COMPREHENSIVE METABOLIC 62581 CREATININE 0.98 mg/dL 08/31 Unknown COMPREHENSIVE METABOLIC 10749 CALCIUM 9.8 mg/dL 2016 Unknown COMPREHENSIVE METABOLIC 46716 POTASSIUM 4.6 mmol/L 09/09 Unknown COMPREHENSIVE METABOLIC 65248 Total Protein 7.5 g/dL Unknown COMPREHENSIVE METABOLIC 51762 Glucose 104 mg/dL 2016 Unknown COMPREHENSIVE METABOLIC 28323 Bicarbonate 27 mmol/L 08/31 Unknown COMPREHENSIVE METABOLIC 62707 AGAP 9 mmol/L 2016 Unknown FREE T4 16831 T4 Free 1.04 ng/dL 09/09/2016 Unknown THYROID STIMULATING HORMONE 42587 TSH 1.618 uIU/mL 09/09/2016 Unknown LIPID GROUP 27212 Cholesterol 251 mg/dL 09/09/2016 Unkno wn LIPID GROUP 83957 Triglyceride 153 mg/dL 09/09/2016 Unkn own LIPID GROUP 09307 HDL CHOLESTEROL 33 mg/dL 09/09/2016 U nknown LIPID GROUP 52723 Chol/HDL Ratio 7.61 ratio 09/09/2016 U nknown LIPID GROUP 49796 NON-HDL Chol 218 mg/dL 09/09/2016 Unkn own LIPID GROUP 11469 LDL Cholesterol 187 mg/dL 09/09/2016 U nknown LIPID GROUP 01082 HDL TEST 39 MG/DL 09/15/2015 Unknown LIPID GROUP 54344 TRIG 106 MG/DL 09/15/2015 Unknown LIPID GROUP 64628 TEST LDL 152 MG/DL 09/15/2015 Unknown LIPID GROUP 16685 CHOL 212 MG/DL 09/15/2015 Unknown LIPID GROUP 66350 RCHOL/HDL 5.44 RATIO 09/15/2015 Unknow n LIPID GROUP 57421 NON-HDL CH 173 MG/DL 09/15/2015 Unknow n GFR CALC 2575518 GFR AA >60 ML/MIN 09/15/2015 Unknown GFR CALC 7691552 GFR NON-AA >60 ML/MIN 09/15/2015 Unknown COMPREHENSIVE METABOLIC 19305 AST 18 U/L 2015 Unknown COMPREHENSIVE METABOLIC 73884 ALT 28 IU/L 2015 Unknown COMPREHENSIVE METABOLIC 07505 BUN 14 MG/DL 2015 Unknown COMPREHENSIVE METABOLIC 14910 ALBUMIN 4.2 GM/DL 2015 Unknown COMPREHENSIVE METABOLIC 69365 CHLORIDE 101 MMOL/L 09/15 Unknown COMPREHENSIVE METABOLIC 69142 BILI TOT 0.6 MG/DL 2015 Unknown COMPREHENSIVE METABOLIC 73203 ALK PHOS 48 U/L 2015 Unknown COMPREHENSIVE METABOLIC 47816 SODIUM 135 MMOL/L 09/15 Unknown COMPREHENSIVE METABOLIC 36484 CREATININE 0.91 MG/DL 08/31 Unknown COMPREHENSIVE METABOLIC 28054 CALCIUM 9.2 MG/DL 2015 Unknown COMPREHENSIVE METABOLIC 86365 POTASSIUM 4.6 MMOL/L 09/15 Unknown COMPREHENSIVE METABOLIC 52472 PROT TOT 6.6 GM/DL 2015 Unknown COMPREHENSIVE METABOLIC 25401 Glucose 97 MG/DL 2015 Unknown COMPREHENSIVE METABOLIC 44818 BICARB 27 MMOL/L 2015 Unknown COMPREHENSIVE METABOLIC 33028 ANION GAP 7 MEQ/L 2015 Unknown LIPID GROUP 90554 HDL TEST 35 MG/DL 04/14/2015 Unknown LIPID GROUP 15351 TRIG 135 MG/DL 04/14/2015 Unknown LIPID GROUP 65825 TEST LDL 153 MG/DL 04/14/2015 Unknown LIPID GROUP 80834 CHOL 215 MG/DL 04/14/2015 Unknown LIPID GROUP 45663 RCHOL/HDL 6.14 RATIO 04/14/2015 Unknow n LIPID GROUP 71821 NON-HDL CH 180 MG/DL 04/14/2015 Unknow n GFR CALC 5284768 GFR AA >60 ML/MIN 04/14/2015 Unknown GFR CALC 5618470 GFR NON-AA >60 ML/MIN 04/14/2015 Unknown COMPREHENSIVE METABOLIC 79764 AST 23 U/L 2014 Unknown COMPREHENSIVE METABOLIC 10542 ALT 27 IU/L 2014 Unknown COMPREHENSIVE METABOLIC 93168 BUN 15 MG/DL 2014 Unknown COMPREHENSIVE METABOLIC 52170 ALBUMIN 4.2 GM/DL 2014 Unknown COMPREHENSIVE METABOLIC 57339 CHLORIDE 103 MMOL/L 04/14 Unknown COMPREHENSIVE METABOLIC 43579 BILI TOT 0.8 MG/DL 2014 Unknown COMPREHENSIVE METABOLIC 48534 ALK PHOS 50 U/L 2014 Unknown COMPREHENSIVE METABOLIC 09096 SODIUM 134 MMOL/L 04/14 Unknown COMPREHENSIVE METABOLIC 52556 CREATININE 0.93 MG/DL 03/31 Unknown COMPREHENSIVE METABOLIC 05567 CALCIUM 9.4 MG/DL 2014 Unknown COMPREHENSIVE METABOLIC 76915 POTASSIUM 4.4 MMOL/L 04/14 Unknown COMPREHENSIVE METABOLIC 88229 PROT TOT 6.8 GM/DL 2014 Unknown COMPREHENSIVE METABOLIC 73198 Glucose 101 MG/DL 2014 Unknown COMPREHENSIVE METABOLIC 99465 BICARB 25 MMOL/L 2014 Unknown COMPREHENSIVE METABOLIC 35020 ANION GAP 6 MEQ/L 2014 Unknown PSA EQUIMOLAR TROY 00553 PSA EQ 1.04 NG/ML 5 Unknown GFR CALC 0920071 GFR AA >60 ML/MIN 11/10/2014 Unknown GFR CALC 4976098 GFR NON-AA >60 ML/MIN 11/10/2014 Unknown LIPID GROUP 58346 HDL TEST 31 MG/DL 11/10/2014 Unknown LIPID GROUP 30298 TRIG 133 MG/DL 11/10/2014 Unknown LIPID GROUP 89130 TEST LDL 74 MG/DL 11/10/2014 Unknown LIPID GROUP 63215 CHOL 132 MG/DL 11/10/2014 Unknown LIPID GROUP 68892 RCHOL/HDL 4.26 RATIO 11/10/2014 Unknow n LIPID GROUP 62872 NON-HDL CH 101 MG/DL 11/10/2014 Unknow n COMPLETE BLOOD COUNT 8593804 WBC 10.2 10e9/L 015 Unknown COMPLETE BLOOD COUNT 5543272 RBC 5.01 10e12/L 2014 Unknown COMPLETE BLOOD COUNT 3112939 HGB 16.1 g/dL 5 Unknown COMPLETE BLOOD COUNT 6845560 HCT DET 48.1 % 5 Unknown COMPLETE BLOOD COUNT 7990351 MCV 96.0 fL 5 Unknown COMPLETE BLOOD COUNT 9894700 MCH 32.1 pg 5 Unknown COMPLETE BLOOD COUNT 0183275 MCHC 33.5 g/dL 5 Unknown COMPLETE BLOOD COUNT 9568709 PLT 248 10e9/L 11/11/19 15 Unknown COMPLETE BLOOD COUNT 3556041 MPV 11.4 fL 5 Unknown COMPLETE BLOOD COUNT 3576160 GIUSEPPE % 51.2 % 5 Unknown COMPLETE BLOOD COUNT 6409361 LY % 37.4 % 5 Unknown COMPLETE BLOOD COUNT 0282054 MON % 9.2 % 5 Unknown COMPLETE BLOOD COUNT 5395538 EOS % 2.0 % 5 Unknown COMPLETE BLOOD COUNT 5528903 BASO % 0.2 % 5 Unknown COMPLETE BLOOD COUNT 0289047 RDW 14.0 % 5 Unknown COMPLETE BLOOD COUNT 8062565 ABS GIUSEPPE 5.22 10e9/L 015 Unknown COMPLETE BLOOD COUNT 6584021 ABS LYMPH 3.81 10e9/L 015 Unknown COMPLETE BLOOD COUNT 8757275 ABS MONO 0.94 10e9/L 015 Unknown COMPLETE BLOOD COUNT 3774755 ABS EOS 0.20 10e9/L 015 Unknown COMPLETE BLOOD COUNT 7420281 ABS BASO 0.02 10e9/L 015 Unknown COMPLETE BLOOD COUNT 4979052 RDW-SD 47.8 fL 5 Unknown FREE T4 27830 FREE T4 0.92 NG/DL 11/10/2014 Unknown COMPREHENSIVE METABOLIC 52481 AST 18 U/L 2014 Unknown COMPREHENSIVE METABOLIC 89250 ALT 25 IU/L 2014 Unknown COMPREHENSIVE METABOLIC 14632 BUN 16 MG/DL 2014 Unknown COMPREHENSIVE METABOLIC 92301 ALBUMIN 4.5 GM/DL 2014 Unknown COMPREHENSIVE METABOLIC 93059 CHLORIDE 103 MMOL/L 11/10 Unknown COMPREHENSIVE METABOLIC 15837 BILI TOT 0.4 MG/DL 2014 Unknown COMPREHENSIVE METABOLIC 19262 ALK PHOS 53 U/L 2014 Unknown COMPREHENSIVE METABOLIC 59127 SODIUM 135 MMOL/L 11/10 Unknown COMPREHENSIVE METABOLIC 64555 CREATININE 0.97 MG/DL 10/29 Unknown COMPREHENSIVE METABOLIC 89918 CALCIUM 9.4 MG/DL 2014 Unknown COMPREHENSIVE METABOLIC 10997 POTASSIUM 4.4 MMOL/L 11/10 Unknown COMPREHENSIVE METABOLIC 57389 PROT TOT 6.9 GM/DL 2014 Unknown COMPREHENSIVE METABOLIC 69035 Glucose 91 MG/DL 2014 Unknown COMPREHENSIVE METABOLIC 33022 BICARB 26 MMOL/L 2014 Unknown COMPREHENSIVE METABOLIC 76682 ANION GAP 6 MEQ/L 2014 Unknown THYROID STIMULATING HORMONE 44377 TSH 3.791 uIU/ML 11/10/2014 Unknown LIPID GROUP 44890 HDL TEST 35 MG/DL 04/29/2014 Unknown LIPID GROUP 84521 TRIG 123 MG/DL 04/29/2014 Unknown LIPID GROUP 98054 TEST LDL 117 MG/DL 04/29/2014 Unknown LIPID GROUP 01328 CHOL 177 MG/DL 04/29/2014 Unknown LIPID GROUP 97709 RCHOL/HDL 5.06 RATIO 04/29/2014 Unknow n LIPID GROUP 79267 NON-HDL CH 142 MG/DL 04/29/2014 Unknow n COMPREHENSIVE METABOLIC 26797 AST 18 U/L 2013 Unknown COMPREHENSIVE METABOLIC 72167 ALT 29 IU/L 2013 Unknown COMPREHENSIVE METABOLIC 46397 BUN 19 MG/DL 2013 Unknown COMPREHENSIVE METABOLIC 40603 ALBUMIN 4.0 GM/DL 2013 Unknown COMPREHENSIVE METABOLIC 43460 CHLORIDE 106 MMOL/L 04/29 Unknown COMPREHENSIVE METABOLIC 84073 BILI TOT 0.4 MG/DL 2013 Unknown COMPREHENSIVE METABOLIC 73591 ALK PHOS 51 U/L 2013 Unknown COMPREHENSIVE METABOLIC 62124 SODIUM 138 MMOL/L 04/29 Unknown COMPREHENSIVE METABOLIC 11096 CREATININE 0.87 MG/DL 04/02 Unknown COMPREHENSIVE METABOLIC 11475 CALCIUM 9.4 MG/DL 2013 Unknown COMPREHENSIVE METABOLIC 33593 POTASSIUM 4.5 MMOL/L 04/29 Unknown COMPREHENSIVE METABOLIC 37286 PROT TOT 6.8 GM/DL 2013 Unknown COMPREHENSIVE METABOLIC 29634 Glucose 106 MG/DL 2013 Unknown COMPREHENSIVE METABOLIC 93948 BICARB 24 MMOL/L 2013 Unknown COMPREHENSIVE METABOLIC 97950 ANION GAP 8 MEQ/L 2013 Unknown GFR CALC 0218819 GFR AA >60 ML/MIN 04/29/2014 Unknown GFR CALC 1515125 GFR NON-AA >60 ML/MIN 04/29/2014 Unknown LIPID GROUP 05047 HDL TEST 30 MG/DL 12/18/2013 Unknown LIPID GROUP 18770 TRIG 128 MG/DL 12/18/2013 Unknown LIPID GROUP 51548 TEST LDL 166 MG/DL 12/18/2013 Unknown LIPID GROUP 49533 CHOL 222 MG/DL 12/18/2013 Unknown LIPID GROUP 90696 RCHOL/HDL 7.40 RATIO 12/18/2013 Unknow n GFR CALC 2237612 GFR AA >60 ML/MIN 12/18/2013 Unknown GFR CALC 4258744 GFR NON-AA >60 ML/MIN 12/18/2013 Unknown FREE T4 19381 FREE T4 1.07 NG/DL 12/18/2013 Unknown COMPLETE BLOOD COUNT 7184640 WBC 7.2 10e9/L 12/19/19 14 Unknown COMPLETE BLOOD COUNT 6771802 RBC 4.89 10e12/L 2013 Unknown COMPLETE BLOOD COUNT 0109524 HGB 15.5 g/dL 4 Unknown COMPLETE BLOOD COUNT 0140249 HCT DET 46.6 % 4 Unknown COMPLETE BLOOD COUNT 5842930 MCV 95.3 fL 4 Unknown COMPLETE BLOOD COUNT 9275527 MCH 31.7 pg 4 Unknown COMPLETE BLOOD COUNT 3923963 MCHC 33.3 g/dL 4 Unknown COMPLETE BLOOD COUNT 0454576 PLT 246 10e9/L 12/19/19 14 Unknown COMPLETE BLOOD COUNT 0917616 MPV 11.4 fL 4 Unknown COMPLETE BLOOD COUNT 3224587 GIUSEPPE % 48.6 % 4 Unknown COMPLETE BLOOD COUNT 3573528 LY % 37.4 % 4 Unknown COMPLETE BLOOD COUNT 0010035 MON % 10.5 % 4 Unknown COMPLETE BLOOD COUNT 1481954 EOS % 3.2 % 4 Unknown COMPLETE BLOOD COUNT 3538506 BASO % 0.3 % 4 Unknown COMPLETE BLOOD COUNT 4337897 RDW 13.6 % 4 Unknown COMPLETE BLOOD COUNT 7072538 ABS GIUSEPPE 3.50 10e9/L 014 Unknown COMPLETE BLOOD COUNT 1391651 ABS LYMPH 2.69 10e9/L 014 Unknown COMPLETE BLOOD COUNT 7721923 ABS MONO 0.76 10e9/L 014 Unknown COMPLETE BLOOD COUNT 3138328 ABS EOS 0.23 10e9/L 014 Unknown COMPLETE BLOOD COUNT 7559076 ABS BASO 0.02 10e9/L 014 Unknown COMPLETE BLOOD COUNT 5157909 RDW-SD 46.2 fL 4 Unknown COMPREHENSIVE METABOLIC 69447 AST 38 U/L 2013 Unknown COMPREHENSIVE METABOLIC 38391 ALT 33 IU/L 2013 Unknown COMPREHENSIVE METABOLIC 67627 BUN 15 MG/DL 2013 Unknown COMPREHENSIVE METABOLIC 00179 ALBUMIN 4.2 GM/DL 2013 Unknown COMPREHENSIVE METABOLIC 25663 CHLORIDE 103 MMOL/L 12/18 Unknown COMPREHENSIVE METABOLIC 61945 BILI TOT 0.6 MG/DL 2013 Unknown COMPREHENSIVE METABOLIC 90634 ALK PHOS 45 U/L 2013 Unknown COMPREHENSIVE METABOLIC 24343 SODIUM 136 MMOL/L 12/18 Unknown COMPREHENSIVE METABOLIC 79665 CREATININE 0.97 MG/DL 11/29 Unknown COMPREHENSIVE METABOLIC 91178 CALCIUM 9.2 MG/DL 2013 Unknown COMPREHENSIVE METABOLIC 90708 POTASSIUM 4.2 MMOL/L 12/18 Unknown COMPREHENSIVE METABOLIC 79551 PROT TOT 7.0 GM/DL 2013 Unknown COMPREHENSIVE METABOLIC 90189 Glucose 120 MG/DL 2013 Unknown COMPREHENSIVE METABOLIC 12407 BICARB 24 MMOL/L 2013 Unknown COMPREHENSIVE METABOLIC 65558 ANION GAP 9 MEQ/L 2013 Unknown THYROID STIMULATING HORMONE 52743 TSH 1.305 uIU/ML 12/18/2013 Unknown PSA EQUIMOLAR TROY 22155 PSA EQ 1.71 NG/ML 4 Unknown LIPID GROUP 07260 HDL TEST 29 MG/DL 07/17/2012 Unknown LIPID GROUP 43096 TRIG 155 MG/DL 07/17/2012 Unknown LIPID GROUP 97711 TEST LDL 105 MG/DL 07/17/2012 Unknown LIPID GROUP 77892 CHOL 165 MG/DL 07/17/2012 Unknown LIPID GROUP 67802 RCHOL/HDL 5.69 RATIO 07/17/2012 Unknow n GFR CALC 2510693 GFR AA >60 ML/MIN 07/17/2012 Unknown GFR CALC 2514595 GFR NON-AA >60 ML/MIN 07/17/2012 Unknown COMPREHENSIVE METABOLIC 76169 AST 19 U/L 2011 Unknown COMPREHENSIVE METABOLIC 87325 ALT 25 IU/L 2011 Unknown COMPREHENSIVE METABOLIC 13553 BUN 14 MG/DL 2011 Unknown COMPREHENSIVE METABOLIC 03041 ALBUMIN 4.4 GM/DL 2011 Unknown COMPREHENSIVE METABOLIC 91116 CHLORIDE 103 MMOL/L 07/17 Unknown COMPREHENSIVE METABOLIC 71946 BILI TOT 0.6 MG/DL 2011 Unknown COMPREHENSIVE METABOLIC 10381 ALK PHOS 53 U/L 2011 Unknown COMPREHENSIVE METABOLIC 13826 SODIUM 136 MMOL/L 07/17 Unknown COMPREHENSIVE METABOLIC 91306 CREATININE 0.97 MG/DL 06/30 Unknown COMPREHENSIVE METABOLIC 41990 CALCIUM 9.4 MG/DL 2011 Unknown COMPREHENSIVE METABOLIC 69071 POTASSIUM 4.3 MMOL/L 07/17 Unknown COMPREHENSIVE METABOLIC 87056 PROT TOT 6.9 GM/DL 2011 Unknown COMPREHENSIVE METABOLIC 74248 Glucose 102 MG/DL 2011 Unknown COMPREHENSIVE METABOLIC 46868 BICARB 27 MMOL/L 2011 Unknown COMPREHENSIVE METABOLIC 67579 ANION GAP 6 MEQ/L 2011 Unknown ERYTHROCYTE SEDIMENTATION RATE 80092 ESR 14 MM/HR 03/20/2012 Unknown LIPID GROUP 40846 HDL TEST 31 MG/DL 03/20/2012 Unknown LIPID GROUP 47416 TRIG 210 MG/DL 03/20/2012 Unknown LIPID GROUP 92344 TEST LDL 164 MG/DL 03/20/2012 Unknown LIPID GROUP 39692 CHOL 237 MG/DL 03/20/2012 Unknown LIPID GROUP 74839 RCHOL/HDL 7.65 RATIO 03/20/2012 Unknow n GFR CALC 2919091 GFR AA >60 ML/MIN 03/20/2012 Unknown GFR CALC 2483787 GFR NON-AA >60 ML/MIN 03/20/2012 Unknown C-REACTIVE PROTEIN (CRP) QUANT 00664 CRP 0.9 MG/DL 03/20/2012 Unknown COMPLETE BLOOD COUNT 57076 WBC 9.7 10e9/L 03/20/20 12 Unknown COMPLETE BLOOD COUNT 18853 RBC 5.14 10e12/L 2011 Unknown COMPLETE BLOOD COUNT 67873 HGB 15.5 g/dL 2 Unknown COMPLETE BLOOD COUNT 62608 HCT DET 46.9 % 2 Unknown COMPLETE BLOOD COUNT 49963 MCV 91.2 fL 2 Unknown COMPLETE BLOOD COUNT 82395 MCH 30.2 pg 2 Unknown COMPLETE BLOOD COUNT 06652 MCHC 33.0 g/dL 2 Unknown COMPLETE BLOOD COUNT 49846 PLT 280 10e9/L 03/20/20 12 Unknown COMPLETE BLOOD COUNT 79379 MPV 10.6 fL 2 Unknown COMPLETE BLOOD COUNT 40318 GIUSEPPE % 61.5 % 2 Unknown COMPLETE BLOOD COUNT 81074 LY % 26.5 % 2 Unknown COMPLETE BLOOD COUNT 43230 MON % 8.8 % 2 Unknown COMPLETE BLOOD COUNT 60315 EOS % 3.0 % 2 Unknown COMPLETE BLOOD COUNT 08080 BASO % 0.2 % 2 Unknown COMPLETE BLOOD COUNT 27020 RDW 15.3 % 2 Unknown COMPLETE BLOOD COUNT 70847 ABS GIUSEPPE 5.97 10e9/L 012 Unknown COMPLETE BLOOD COUNT 97987 ABS LYMPH 2.57 10e9/L 012 Unknown COMPLETE BLOOD COUNT 13615 ABS MONO 0.85 10e9/L 012 Unknown COMPLETE BLOOD COUNT 58572 ABS EOS 0.29 10e9/L 012 Unknown COMPLETE BLOOD COUNT 36754 ABS BASO 0.02 10e9/L 012 Unknown COMPLETE BLOOD COUNT 89417 RDW-SD 50.3 fL 2 Unknown COMPREHENSIVE METABOLIC 47913 AST 16 U/L 2011 Unknown COMPREHENSIVE METABOLIC 56680 ALT 21 IU/L 2011 Unknown COMPREHENSIVE METABOLIC 66828 BUN 15 MG/DL 2011 Unknown COMPREHENSIVE METABOLIC 23579 ALBUMIN 4.3 GM/DL 2011 Unknown COMPREHENSIVE METABOLIC 63085 CHLORIDE 102 MMOL/L 03/20 Unknown COMPREHENSIVE METABOLIC 73676 BILI TOT 0.5 MG/DL 2011 Unknown COMPREHENSIVE METABOLIC 47295 ALK PHOS 60 U/L 2011 Unknown COMPREHENSIVE METABOLIC 93497 SODIUM 135 MMOL/L 03/20 Unknown COMPREHENSIVE METABOLIC 02465 CREATININE 0.94 MG/DL 03/01 Unknown COMPREHENSIVE METABOLIC 13771 CALCIUM 9.0 MG/DL 2011 Unknown COMPREHENSIVE METABOLIC 47830 POTASSIUM 4.4 MMOL/L 03/20 Unknown COMPREHENSIVE METABOLIC 03071 PROT TOT 6.7 GM/DL 2011 Unknown COMPREHENSIVE METABOLIC 53468 Glucose 96 MG/DL 2011 Unknown COMPREHENSIVE METABOLIC 50911 BICARB 25 MMOL/L 2011 Unknown COMPREHENSIVE METABOLIC 35287 ANION GAP 8 MEQ/L 2011 [place] [address] PRO TIME 21.6 SEC 03/20/2012 [place] [address] INR MCMC 1.8 03/20/2012 Unknow n Procedures Procedure Codes Date ROUTINE VENIPUNCTURE CPT-4: 03819 06/19/2018 ASSAY OF FREE THYROXINE CPT-4: 79715 06/19/2018 ASSAY THYROID STIM HORMONE CPT-4: 78551 06/19/2018 COMPREHEN METABOLIC PANEL CPT-4: 33397 06/19/2018 COMPLETE CBC W/AUTO DIFF WBC CPT-4: 27449 06/19/2018 LIPID PANEL CPT-4: 74911 06/19/2018 ASSAY OF PSA TOTAL CPT-4: 47003 06/19/2018 VITAMIN D TOTAL (25 HYDROXY) CPT-4: 79392 06/19/2018 VITAMIN B-12 CPT-4: 72419 06/19/2018 DEXAMETHASONE SODIUM PHOS CPT-4: J1100 08/31/2017 TRIAMCINOLONE ACET INJ NOS CPT-4: J3301 08/31/2017 DRAIN/INJECT JOINT/BURSA CPT-4: 51738 08/31/2017 ROUTINE VENIPUNCTURE CPT-4: 42538 08/01/2017 COMPREHEN METABOLIC PANEL CPT-4: 52168 08/01/2017 LIPID PANEL CPT-4: 16319 08/01/2017 DRAIN/INJECT JOINT/BURSA CPT-4: 88076 09/12/2016 TRIAMCINOLONE ACET INJ NOS CPT-4: J3301 09/12/2016 DEXAMETHASONE SODIUM PHOS CPT-4: J1100 09/12/2016 ROUTINE VENIPUNCTURE CPT-4: 37025 09/09/2016 ASSAY OF FREE THYROXINE CPT-4: 06678 09/09/2016 ASSAY THYROID STIM HORMONE CPT-4: 71648 09/09/2016 COMPREHEN METABOLIC PANEL CPT-4: 90556 09/09/2016 COMPLETE CBC W/AUTO DIFF WBC CPT-4: 18652 09/09/2016 LIPID PANEL CPT-4: 42756 09/09/2016 SPECIAL REPORTS OR FORMS CPT-4: 39694 08/05/2016 ROUTINE VENIPUNCTURE CPT-4: 85522 09/15/2015 COMPREHEN METABOLIC PANEL CPT-4: 30239 09/15/2015 LIPID PANEL CPT-4: 84721 09/15/2015 PRESCRIP TRANSMIT VIA ERX SY CPT-4: G8553 08/31/2015 ROUTINE VENIPUNCTURE CPT-4: 13198 04/14/2015 COMPREHEN METABOLIC PANEL CPT-4: 11624 04/14/2015 LIPID PANEL CPT-4: 73980 04/14/2015 ROUTINE VENIPUNCTURE CPT-4: 09681 11/10/2014 ASSAY OF FREE THYROXINE CPT-4: 75858 11/10/2014 ASSAY THYROID STIM HORMONE CPT-4: 13000 11/10/2014 COMPREHEN METABOLIC PANEL CPT-4: 07039 11/10/2014 COMPLETE CBC W/AUTO DIFF WBC CPT-4: 49772 11/10/2014 LIPID PANEL CPT-4: 15565 11/10/2014 ASSAY OF PSA TOTAL CPT-4: 48605 11/10/2014 ROUTINE VENIPUNCTURE CPT-4: 34941 04/29/2014 COMPREHEN METABOLIC PANEL CPT-4: 66963 04/29/2014 LIPID PANEL CPT-4: 37225 04/29/2014 ROUTINE VENIPUNCTURE CPT-4: 12625 12/18/2013 ASSAY OF FREE THYROXINE CPT-4: 46943 12/18/2013 ASSAY THYROID STIM HORMONE CPT-4: 86430 12/18/2013 COMPREHEN METABOLIC PANEL CPT-4: 03516 12/18/2013 COMPLETE CBC W/AUTO DIFF WBC CPT-4: 53724 12/18/2013 LIPID PANEL CPT-4: 71354 12/18/2013 ASSAY OF PSA TOTAL CPT-4: 31329 12/18/2013 ROUTINE VENIPUNCTURE CPT-4: 20714 07/17/2012 COMPREHEN METABOLIC PANEL CPT-4: 25420 07/17/2012 LIPID PANEL CPT-4: 68927 07/17/2012 ROUTINE VENIPUNCTURE CPT-4: 85548 03/20/2012 COMPLETE CBC W/AUTO DIFF WBC CPT-4: 59702 03/20/2012 RBC SED RATE AUTOMATED CPT-4: 84956 03/20/2012 C-REACTIVE PROTEIN CPT-4: 03618 03/20/2012 COMPREHEN METABOLIC PANEL CPT-4: 53974 03/20/2012 LIPID PANEL CPT-4: 28581 03/20/2012 PROTHROMBIN TIME CPT-4: 21998 03/20/2012 Vital Signs Date Vital 10/07/2019 Blood Pressure 1: 142/83 Code: 8480-6 BMI: 31.3 Code: 47024-8 Heart Rate 1: 80 bpm Height: 6'2" Respiratory Rate: 17 bpm SpO2: 99% Tempera ture: 36.7 (C) / 98.1 (F) Weight: 244 lbs 07/01/2019 Blood Pressure 1: 114/80 Code: 8480-6 BMI: 30.4 Code: 71413-4 Heart Rate 1: 72 bpm Height: 6'2" [...] 1: 126/82 Code: 8480-6 BMI: 31.2 Code: 68874-6 Heart Rate 1: 84 bpm Height: 6'2" Respiratory Rate: 20 bpm SpO2: 94% Tempera ture: 37.0 (C) / 98.6 (F) Weight: 243 lbs 03/02/2018 Blood Pressure 1: 12280 Code: 8480-6 BMI: 30.8 Code: 95920-6 Heart Rate 1: 74 bpm Height: 6'2" Respiratory Rate: 20 bpm SpO2: 95% Tempera ture: 37.1 (C) / 98.8 (F) Weight: 240 lbs 08/31/2017 Blood Pressure 1: 136/90 Code: 8480-6 Heart Rate 1: 76 bpm Respiratory Rate: 20 bpm Temperature: 36.7 (C) / 98.0 (F) Weight: 247 lbs 07/18/2017 Blood Pressure 1: 126/78 Code: 8480-6 BMI: 31.3 Code: 93641-0 Heart Rate 1: 72 bpm Height: 6'2" Respiratory Rate: 20 bpm SpO2: 94% Tempera ture: 37.0 (C) / 98.6 (F) Weight: 244 lbs 04/24/2017 Blood Pressure 1: 152/92 Code: 8480-6 BMI: 31.1 Code: 06906-7 Heart Rate 1: 74 bpm Height: 6'2" Respiratory Rate: 18 bpm SpO2: 98% Tempera ture: 35.9 (C) / 96.6 (F) Weight: 242 lbs 01/04/2017 Blood Pressure 1: 122/70 Code: 8480-6 BMI: 30.4 Code: 40001-4 Heart Rate 1: 88 bpm Height: 6'2" Respiratory Rate: 20 bpm SpO2: 96% Tempera ture: 36.6 (C) / 97.8 (F) Weight: 237 lbs 09/12/2016 Blood Pressure 1: 136/78 Code: 8480-6 Heart Rate 1: 82 bpm Respiratory Rate: 22 bpm SpO2: 94% Temperature: 36.4 (C) / 97.6 (F) We ight: 234 lbs 09/07/2016 Blood Pressure 1: 122/70 Code: 8480-6 BMI: 30.0 Code: 96564-3 Heart Rate 1: 88 bpm Height: 6'2" Respiratory Rate: 20 bpm SpO2: 94% Tempera ture: 36.6 (C) / 97.9 (F) Weight: 234 lbs 08/31/2015 Blood Pressure 1: 142/94 Code: 8480-6 BMI: 28.9 Code: 14886-8 Heart Rate 1: 92 bpm Height: 6'2" Respiratory Rate: 20 bpm Temperature: 36 .9 (C) / 98.5 (F) Weight: 225 lbs 04/14/2015 Blood Pressure 1: 126/80 Code: 8480-6 BMI: 28.0 Code: 65447-2 Heart Rate 1: 76 bpm Height: 6'2" Respiratory Rate: 20 bpm Temperature: 36 .6 (C) / 97.8 (F) Weight: 218 lbs 10/07/2014 Blood Pressure 1: 128/76 Code: 8480-6 BMI: 28.6 Code: 44529-8 Heart Rate 1: 84 bpm Height: 6'2" Respiratory Rate: 22 bpm Temperature: 36 .6 (C) / 97.9 (F) Weight: 223 lbs 05/01/2014 Blood Pressure 1: 126/68 Code: 8480-6 BMI: 28.2 Code: 15321-7 Heart Rate 1: 84 bpm Height: 6'2" Respiratory Rate: 20 bpm Temperature: 36 .8 (C) / 98.3 (F) Weight: 220 lbs 12/17/2013 Blood Pressure 1: 136/82 Code: 8480-6 BMI: 29.6 Code: 64046-0 Heart Rate 1: 76 bpm Height: 6'1" Respiratory Rate: 20 bpm Temperature: 36 .8 (C) / 98.2 (F) Weight: 224 lbs 12/11/2012 Blood Pressure 1: 122/86 Code: 8480-6 BMI: 30.5 Code: 22159-1 Heart Rate 1: 76 bpm Height: 6'1" Respiratory Rate: 20 bpm SpO2: 93% Tempera ture: 36.8 (C) / 98.2 (F) Weight: 231 lbs 12/04/2012 Blood Pressure 1: 124/86 Code: 8480-6 BMI: 30.5 Code: 72590-1 Heart Rate 1: 68 bpm Height: 6'1" Respiratory Rate: 20 bpm SpO2: 95% Tempera ture: 36.6 (C) / 97.8 (F) Weight: 231 lbs 08/14/2012 Blood Pressure 1: 126/70 Code: 8480-6 BMI: 29.4 Code: 65903-0 Heart Rate 1: 80 bpm Height: 6'1" Respiratory Rate: 20 bpm Temperature: 36 .8 (C) / 98.3 (F) Weight: 223 lbs 07/17/2012 Blood Pressure 1: 124/82 Code: 8480-6 BMI: 29.7 Code: 88281-3 Heart Rate 1: 80 bpm Height: 6'1" Respiratory Rate: 20 bpm Temperature: 36 .8 (C) / 98.2 (F) Weight: 225 lbs 03/20/2012 Blood Pressure 1: 124/78 Code: 8480-6 BMI: 29.3 Code: 64658-0 Heart Rate 1: 72 bpm Height: 6'1" Respiratory Rate: 20 bpm Temperature: 36 .6 (C) / 97.8 (F) Weight: 222 lbs 12/08/2011 Blood Pressure 1: 112/64 Code: 8480-6 BMI: 28.2 Code: 78043-9 Heart Rate 1: 78 bpm Height: 6'1" Temperature: 36.3 (C) / 97.4 (F) Weight: 214 lbs 08/11/2011 Blood Pressure 1: 128/70 Code: 8480-6 BMI: 27.6 Code: 77369-1 Heart Rate 1: 76 bpm Height: 6'1" [...] it Encounters Encounter Performer Location Codes Date ([id number]) OFFICE/OUTPATIENT VISIT EST Diagnosis: COPD (chronic obstructive pulmonary disease)[ICD10: J44.9] Diagnosis: Mixed hyperlipidemia[ICD10: E78.2] Diagnosis: Coronary artery disease[ICD10: I25.10] Diagnosis: 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: G57.92] Martita SIMONS DO ST. 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] Diagnosis: Bilateral primary osteoarthritis of knee[ICD10: M17.0] Diagnosis: Nicotine dependence, unspecified, uncomplicated[ICD10: F17.200] Diagnosis: Mixed hyperlipidemia[ICD10: E78.2] Martita RENTERIA [employer] Spotsi CPT-4: 49639 03/27/2019 ([id number]) OFFICE/OUTPATIENT VISIT EST Diagnosis: Mixed hyperlipidemia[ICD10: E78.2] Diagnosis: 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 CPT-4: 45566 06/19/2018 ([id number]) OFFICE/OUTPATIENT VISIT EST Diagnosis: Encounter for therapeutic drug level monitoring[ICD10: Z51.81] Diagnosis: Pain in 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: M25.531] Diagnosis: Pain in right knee[ICD10: M25.561] Diagnosis: Pain in left knee[ICD10: M25.562] Marian Lam [employer] CPT-4: 59894 03/02/2018 ([id number]) OFFICE/OUTPATIENT VISIT EST Diagnosis: Mixed hyperlipidemia[ICD10: E78.2] Martita SIMONS [employer] CPT-4: 88974 08/01/2017 ([id number]) OFFICE/OUTPATIENT VISIT EST Diagnosis: Other spondylosis with radiculopathy, cervical region[ICD10: M47.22] Diagnosis: Pain in 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: M25.531] Diagnosis: Mixed hyperlipidemia[ICD10: E78.2] Diagnosis: 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] Martita SIMONS [employer] CPT-4: 9921 3 07/18/2017 ([id number]) OFFICE/OUTPATIENT VISIT EST Diagnosis: Other intervertebral disc degeneration, 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] Diagnosis: Cervicalgia[ICD10: M54.2] Martita YOUNG [employer] CPT-4: 80604 04/24/2017 ([id number]) OFFICE/OUTPATIENT VISIT EST Diagnosis: Cervicalgia[ICD10: M54.2] Diagnosis: Other intervertebral disc degeneration, 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] Diagnosis: Mixed hyperlipidemia[ICD10: E78.2] Martita RENTERIA [employer] SIMONS [employer] CPT-4: 52613 01/04/2017 ([id number]) OFFICE/OUTPATIENT VISIT EST Diagnosis: Mixed hyperlipidemia[ICD10: E78.2] Diagnosis: Encounter for general adult medical examination with abnormal findings[ICD10: Z00.01] Martita SIMONS [employer] CPT-4: 52975 09/09/2016 ([id number]) PREV VISIT EST AGE 40-64 Diagnosis: Mixed hyperlipidemia[ICD10: E78.2] Diagnosis: Nicotine dependence, unspecified, uncomplicated[ICD10: F17.200] Diagnosis: Chronic obstructive pulmonary disease with acute lower respiratory infection[ICD10: J44.0] Diagnosis: Bilateral primary osteoarthritis of knee[ICD10: M17.0] Diagnosis: Pain in thoracic spine[ICD10: M54.6] Diagnosis: Pain in 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: M25.531] Diagnosis: Encounter for general adult medical examination with abnormal findings[ICD10: Z00.01] Martita SIMONS DO [facility] CPT-4: 38824 09/07/2016 ([id number]) OFFICE/OUTPATIENT VISIT EST Diagnosis: Mixed hyperlipidemia[ICD10: E78.2] Martita SIMONS DO [facility] CPT-4: 74851 09/15/2015 ([id number]) OFFICE/OUTPATIENT VISIT EST Diagnosis: Acute bronchitis, unspecified[ICD10: J20.9] Diagnosis: Chronic obstructive pulmonary disease with acute lower respiratory infection[ICD10: J44.0] Diagnosis: Lumbago with sciatica, right side[ICD10: M54.41] Martita SIMONS DO [facility] CPT-4: 45750 08/31/2015 ([id number]) OFFICE/OUTPATIENT VISIT EST Diagnosis: HYPERLIPIDEMIA NEC/NOS[ICD9: 272.4] Diagnosis: TOBACCO USE DISORDER[ICD9: 305.1] Diagnosis: Osteoarthritis, knee[ICD9: 715.96] Diagnosis: Chronic back pain[ICD9: 724.5] Martita SIMONS DO [facility] CPT-4: 55469 04/14/2015 ([id number]) OFFICE/OUTPATIENT VISIT EST Diagnosis: HYPERLIPIDEMIA NEC/NOS[ICD9: 272.4] Diagnosis: COPD[ICD9: 496] Diagnosis: ROUTINE MEDICAL EXAM[ICD9: V70.0] Martita SIMONS DO [facility] CPT-4: 78266 11/10/2014 ([id number]) OFFICE/OUTPATIENT VISIT EST Diagnosis: Wrist pain[ICD9: 719.43] Diagnosis: Knee osteoarthritis[ICD9: 715.96] Diagnosis: Chronic back pain[ICD9: 724.5] Martita SIMONS DO [facility] CPT-4: 83148 10/07/2014 ([id number]) OFFICE/OUTPATIENT VISIT EST Diagnosis: HYPERLIPIDEMIA NEC/NOS[ICD9: 272.4] Diagnosis: Chronic back pain[ICD9: 724.5] Diagnosis: OSTEOARTH NOS-L/LEG[ICD9: 715.96] Martita SIMONS DO [facility] CPT-4: 09209 05/01/2014 ([id number]) OFFICE/OUTPATIENT VISIT EST Diagnosis: HYPERLIPIDEMIA NEC/NOS[ICD9: 272.4] Martita SIMONS DO [facility] CPT-4: 59301 04/29/2014 ([id number]) OFFICE/OUTPATIENT VISIT EST Diagnosis: ROUTINE MEDICAL EXAM[ICD9: V70.0] Diagnosis: HYPERLIPIDEMIA NEC/NOS[ICD9: 272.4] Martita SIMONS DO [facility] CPT-4: 18962 12/18/2013 OFFICE/OUTPATIENT VISIT EST Diagnosis: HYPERLIPIDEMIA NEC/NOS[ICD9: 272.4] Diagnosis: COPD[ICD9: 496] Diagnosis: Knee pain[ICD9: 719.46] Diagnosis: Wrist pain[ICD9: 719.43] Martita LAMAR [facility] CPT-4: 20037 12/17/2013 OFFICE/OUTPATIENT VISIT EST Diagnosis: COPD W/ ACUTE EXACERB[ICD9: 491.21] Diagnosis: COUGH[ICD9: 786.2] Martita SIMONS DO [facility] CPT-4: 99518 12/11/2012 ([id number]) OFFICE/OUTPATIENT VISIT EST Diagnosis: BRONCHITIS, ACUTE[ICD9: 466.0] Diagnosis: COPD exacerbation[ICD9: 491.21] Martita SIMONS DO [facility] CPT-4: 40099 12/04/2012 ([id number]) OFFICE/OUTPATIENT VISIT EST Diagnosis: DERMATITIS NOS[ICD9: 692.9] Diagnosis: TOBACCO USE DISORDER[ICD9: 305.1] Martita SIMONS DO [facility] CPT-4: 55851 08/14/2012 ([id number]) OFFICE/OUTPATIENT VISIT EST Diagnosis: TOBACCO USE DISORDER[ICD9: 305.1] Diagnosis: PAIN, LOWER BACK[ICD9: 724.2] Diagnosis: PAIN IN THORACIC SPINE[ICD9: 724.1] Diagnosis: DERMATITIS NOS[ICD9: 692.9] Diagnosis: HYPERLIPIDEMIA NEC/NOS[ICD9: 272.4] Martita MOROCHO Sofia AGUIRRENDER [employer] CPT-4: 69018 07/17/2012 ([id number]) OFFICE/OUTPATIENT VISIT EST Diagnosis: HYPERLIPIDEMIA NEC/NOS[ICD9: 272.4] Diagnosis: OSTEOARTH NOS-L/LEG[ICD9: 715.96] Diagnosis: JOINT PAIN-L/LEG[ICD9: 719.46] Diagnosis: AC EMBL SUPRFCL UP EXT[ICD9: 453.81] Martita FISCHER Sofia AGUIRRENDJOELLEN [employer] CPT-4: 93388 03/20/2012 ([id number]) OFFICE/OUTPATIENT VISIT EST Diagnosis: PAIN, LOWER BACK[ICD9: 724.2] Diagnosis: Superficial venous thrombosis of arm[ICD9: 453.81] Diagnosis: Trigger finger, left[ICD9: 727.03] Martita RENTERIA Sofia SIMONS [employer] CPT-4: 75062 12/08/2011 OFFICE/OUTPATIENT VISIT EST Diagnosis: Knee pain[ICD9: 719.46] Diagnosis: Knee osteoarthritis[ICD9: 715.96] Diagnosis: Thoracic back pain[ICD9: 724.1] Diagnosis: HYPERLIPIDEMIA NEC/NOS[ICD9: 272.4] Martita MONTERO BAILEE SIMONS [employer] CPT-4: 40969 08/11/2011 ([id number]) OFFICE/OUTPATIENT VISIT, [facility] Martita HULL Sofia SIMONS [employer] CPT-4: 02828 05/26/2010 Plan of Care Planned Activity Notes Codes Status Date Visit Diagnosis Plan: COPD (chronic obstructive pulmon jenn disease) Discussion: Smoking Cessation ICD-9 : 496 ICD-10 : J44.9 10/07/2019 Visit Diagnosis Plan: Mixed hyperlipidemia Discussion: Lipids next month with cardiology fwup Follow Up: 3 months ICD-9 : 272.4 ICD-10 : E78.2 10/07/2019 Appointment: Martita [facility] [phone] [id number] MED[facility] REVIEW 10/07/2019 Visit Diagnosis Plan: Other intervertebral disc degene ration, lumbar region Discussion: Stable on hydrocodone Add Vitamin D3 2000u daily Follow Up: 3 months ICD-9 : 722.52 ICD-10 : M51.36 07/01/2019 Visit Diagnosis Plan: Cephalgia Discussion: Discussed CT angiogram to rule out aneurysm but patient defers due to cost ICD-9 : 784.0 ICD-10 : R51 07/01/2019 Appointment: Martita Simons WPtel: [address] [place], [place] [phone] MEDICATION REVIEW 07/01/2019 Visit Diagnosis Plan: Mixed hyperlipidemia Discussion: Had lab done in December with Cardiology ICD-9 : 272.4 ICD-10 : E78.2 03/27/2019 Visit Diagnosis Plan: Nicotine dependence, unspecified , uncomplicated Discussion: Smoking cessation ICD-9 : 305.1 ICD-10 : F17.200 03/27/2019 Visit Diagnosis Plan: Atherosclerotic he art disease of [place] coronary artery without angina pectoris Discussion: Discussed cardiac rehab vs p ulmonary rehab Follow Up: 3 months ICD-9 : 414.00 ICD-10 : I25.10 03/27/2019 Appointment: Martita Simons WPtel: [address] [place], [place] [phone] [place] MEDICATION REVIEW 03/27/2019 Visit Diagnosis Plan: Other intervertebral disc degene ration, lumbar region Discussion: Stable on hydrocodone UDS done Follow Up: 3 months ICD-9 : 722.52 ICD-10 : M51.36 12/25/2018 Visit Diagnosis Plan: Atherosclerotic he art disease of [place] coronary artery without angina pectoris Discussion: Smoking Cessation Continue c urrent meds and fwup with cardiology ICD-9 : 414.00 ICD-10 : I25.10 12/25/2018 Appointment: Martita Simons WPtel: [address] [place], [place] [phone] MEDICATION REVIEW 12/25/2018 Appointment: Martita Simons WPtel: [address] [place], [place] [id number] OFFICE SURGERY 08/22/2018 Visit Diagnosis Plan: Pain [...] : M19.031 06/19/2018 Appointment: Martita Simons WPtel: [address] [place] [address] [place] MEDICATION REVIEW 06/19/2018 Appointment: Martita Simons WPtel: [address] [place] [address] [place] CANCELED 06/05/2018 Appointment: Martita Simons WPtel: [address] [place] [address] [place] CANCELED 05/08/2018 Visit Diagnosis Plan: Pain [...] ICD-10 : M25.561 03/02/2018 Appointment: Marian Juares [address] [place], [place] [phone] [place] MEDICATION REVIEW 03/02/2018 Patient Education: Patient Medication Summary Completed 03/02/2018 Appointment: Martita Simons WPtel: [address] [place] [phone] UA 02/01/2018 Patient Education: Patient Medication Summary Completed 02/01/2018 Visit Diagnosis Plan: Other synovitis and tenosynoviti s, right hand Discussion: Right wrist cleansed with alcohol and betadine and injected laterally with 1cc 1% lidocaine with 20mg kenalog and 2mg dexamethasone, tolerated well with no complications, neosporin and bandage applied ICD-9 : 727.05 ICD-10 : M65.841 08/31/2017 Appointment: Martita Simons WPtel: [address] [place] [phone] 08/31/2017 Patient Education: Patient Medication Summary Completed 08/31/2017 Appointment: Martita Simons WPtel: [address] [place], [place] [phone] 08/01/2017 Patient Education: Patient Medication Summary [...] : M47.22 07/18/2017 Appointment: Martita Simons WPtel: [address] [place], [place] [phone] MEDICATION REVIEW 07/18/2017 Patient Education: Patient Medication Summary Completed 07/18/2017 Visit Diagnosis Plan: Cervicalgia Discussion: Continue PT then fwup after done with PT ICD-9 : 723.1 ICD-10 : M54.2 04/24/2017 Visit Diagnosis Plan: Other intervertebral disc degene ration, lumbar region Discussion: Add PT For lumbar spine ICD-9 : 722.52 ICD-10 : M51.36 04/24/2017 Appointment: Martita Simonstel: [address] [place] [address] [place] MEDICATION REVIEW 04/24/2017 Patient Education: Patient Medication Summary Completed 04/24/2017 Patient Education: Patient Medication Summary Completed 03/22/2017 Care Plan: MRI NECK SPINE W/O DYE LOINC : 32134-6 Pending 03/22/2017 Visit Diagnosis Plan: Mixed hyperlipidemia [...] : M51.36 01/04/2017 Appointment: Martita Simons WPtel: [address] [place] [address] [place] 01/03 lm`sl 01/03-Confirmed MEDICATION REVIEW 01/04/2017 Patient Education: Patient Medication Summary Completed 01/04/2017 Visit Diagnosis Plan: Other enthesopathies, not elsewh ere classified Discussion: Right wrist injection as above ICD-9 : 727.05 ICD-10 : M77.8 09/12/2016 Visit Diagnosis Plan: Mixed hyperlipidemia Discussion: Lab discussed Restart lipitor/lifestyle change ICD-9 : 272.4 ICD-10 : E78.2 09/12/2016 Appointment: Martita Simonstel: [address] [place], [place] [phone] [place] 09/12 confirmed `sl INJECTION 09/12/2016 Patient Education: Patient Medication Summary Completed 09/12/2016 Appointment: Martita Simons WPtel: [address] [place] [phone] [place] LAB 09/09/2016 Patient Education: Patient Medication Summary Completed 09/09/2016 Visit Diagnosis Plan: Nicotine dependence, unspecified , uncomplicated Discussion: Tobacco Abuse ICD-9 : 305.1 ICD-10 : F17.200 09/07/2016 Visit Diagnosis Plan: Chronic obstructiv e pulmonary disease with acute lower respiratory infection Discussion: Smoking Cessation Symbicort Check CXR ICD-9 : 496 ICD-10 : J44.0 09/07/2016 Visit Diagnosis Plan: Encounter for [facility] adult medical examination with abnormal findings Discussion: Update fasting lab Follow Up: 4 months ICD-9 : V70.0 ICD-10 : Z00.01 09/07/2016 Visit Diagnosis Plan: Mixed hyperlipidemia Discussion: Check CMP, Lipids ICD-9 : 272.4 ICD-10 : E78.2 09/07/2016 Visit Diagnosis Plan: Pain in right wrist Discussion: Will return for wrist injection ICD-9 : 719.43 ICD-10 : M25.531 09/07/2016 Appointment: Martita Simons WPtel: [address] [place], [place] [phone] [place] 09/06 confirmed~sl Annual Well Visit 09/07/2016 Patient Education: Patient Medication Summary Completed 09/07/2016 Care Plan: CHEST X-RAY 2VW FRONTAL&LATL LOINC : 13519-2 Pending 09/07/2016 Visit Plan: [facility] out [facility] Insurance Paperwork 08/05/2016 Patient Education: Patient Medication Summary Completed 08/05/2016 Appointment: Martita Simons WPtel: [address] [place] [id number] [place] UA 04/25/2016 Patient Education: Patient Medication Summary Completed 04/25/2016 Appointment: Martita Simons WPtel: [address] [place], [place] [phone] [place] LAB 09/15/2015 Patient Education: Patient Medication Summary Completed 09/15/2015 Visit Plan: SVN with Albuterol 0.083% Q4 hrs and Q2hrs prn. Supportive care. Rest, Fluids, Tylenol/Motrin prn fever or bodyaches. Notify if worsening symptoms. Daily back stretches, moist heat, Biofreeze prn Flexeril/Prednisone Notify if low back pain persists--will need x-rays Patient seeing Chiropracter [employer] 08/31/2015 Appointment: Martita Simonstel: [address] [place] [id number] 08/28/15 cn 08/28/15 appt confirmed cn FOLLOW UP 08/31/2015 Patient Education: Patient Medication Summary Completed 08/31/2015 Appointment: Martita Simons WPtel: [address] [place], [place] [phone] UA 07/29/2015 Visit Plan: CMP, Lipids today Patient st opped chol meds 1week ago Continue hydrocodone 04/14/2015 Appointment: Martita Simons WPtel: [address] [place] [phone] FOLLOW UP 04/14/2015 Patient Education: Patient Medication Summary Completed 04/14/2015 Appointment: Martita Simons WPtel: [address] [place], [place] [phone] LAB 11/10/2014 Patient Education: Patient Medication Summary Completed 11/10/2014 Visit Plan: Fasting lab at end of September for Lipids/LFTs Continue hydrocodone at current dose Needs to be on low dose asprin 81mg daily With upcoming trip need to stop every 2hours and get out and stretch 10/07/2014 Appointment: Martita Simons WPtel: [address] [place] [phone] [place] FOLLOW UP 10/07/2014 Patient Education: Patient Medication Summary Completed 10/07/2014 Visit Plan: Lab discussed Will keep meds the same Keep hydrocodone at current dose--discussed schedule change on May 05 05/01/2014 Appointment: Martita Simons WPtel: [address] [place] [phone] 04/29 confirmed when in for labs; asked if he still wanted a reminder call on Monday and he said no he would be here. FOLLOW UP 05/01/2014 Patient Education: Patient Medication Summary Completed 05/01/2014 Appointment: Martita Simonstel: [address] [place], [place] [phone] LAB 04/29/2014 Patient Education: Patient Medication Summary Completed 04/29/2014 Appointment: Martita Simons WPtel: [address] [place], [place] [phone] LAB 12/18/2013 Patient Education: Patient Medication Summary Completed 12/18/2013 Appointment: Martita Simons WPtel: [address] [place], [place] [phone] 12/16 FOLLOW UP 12/17/2013 Patient Education: Patient Medication Summary Completed 12/17/2013 Visit Plan: Check CXR Start SVNs with al buterol 0.083% QID 12/11/2012 Appointment: Martita Simons WPtel: [address] [place] [address] FOLLOW UP 12/11/2012 Patient Education: Patient Medication Summary Completed 12/11/2012 Visit Plan: Zithromax for 1wk Prednisone for 1wk Symbicort 160/4.5 2p BID 12/04/2012 Appointment: Martita Simons WPtel: [address] [place] [phone] 12/04/2012 Patient Education: Patient Medication Summary Completed 12/04/2012 Visit Plan: Continue nystatin/TAC cream and add Lamisil for next month No lipitor for next month If rash persists then will need biopsy Trial of chantix--warned of suicidal ideation/depression Call in 1mo on finger lesion and chantix 08/14/2012 Appointment: Martita Simons WPtel: [address] [place], [place] [phone] 08/13 no answer...08/13 pt called back and confirmed OFFICE SURGERY 08/14/2012 Patient Education: Patient Medication Summary Completed 08/14/2012 Appointment: Martita Simons WPtel: [address] [place], [place] [phone] FOLLOW UP 07/17/2012 Patient Education: Patient Medication Summary Completed 07/17/2012 Appointment: Martita Simons WPtel: [address] [place] [address] Appointment was confirmed by CN on 06/29 12/ pt called, in family, was in [place] just got yash k 07/03 - [facility] 07/02/2012 Visit Plan: Obtain US results of RUE DC coumadin as has been 3mos and start Aspirin 325mg daily Check CMP, Lipids, CBC, ESR, CRP today 03/20/2012 Appointment: Martita Simons WPtel: [address] [place], [place] [phone] FOLLOW UP 03/20/2012 Patient Education: Patient Medication Summary Completed 03/20/2012 Appointment: Martita Simons WPtel: [address] [place] [address] Patient called 2 hours past appt. Said saw a specialist today and specialist is not concerned about blod clot so doesnt want to reschedule-CN FOLLOW UP 12/14/2011 Appointment: Martita Simons WPtel: [address] [place], [place] [phone] FOLLOW UP 12/13/2011 Visit Plan: Continue coumadin--IM is fol lowing level--discussed will likely need 6-12wks Observe contusion to right lower back Fwup with ortho as scheduled 12/08/2011 Appointment: Martita Simons WPtel: [address] [place], [place] [phone] ACUTE ILLNESS 12/08/2011 Patient Education: Patient Medication Summary Completed 12/08/2011 Visit Plan: Check fasting lab when goes for pre-op lab including CMP, CBC, Lipids, TSH, Free T4, PSA, uric acid Needs colonoscopy Hydrocodone refilled #80 to [facility] 08/11/2011 Appointment: Mart[facility] [phone] [id number] [place] ESTABLISHED PATIENT 08/11/2011 Patient Education: Patient Medication Summary Completed 08/11/2011 Visit Plan: Obtain most recent lab resul ts Cont current meds Explained that cannot refill pain meds without current rx Discussed Synvisc injections and see ortho as oxycontin for knee arthritis is strong pain med 05/26/2010 Appointment: Martita Simons [facility]el[facility] [phone] [id number] NEW PATIENT 05/26/2010 Patient Education: Patient Medication Summary Completed 05/26/2010 Instructions Comment . Filled out [facility] Paperwork . SVN with Albuterol 0.083% Q4hrs [...] acid Needs colonoscopy Hydrocodone refilled #80 to [facility] . Obtain most recent lab results Cont [...]
--- OUTSIDE RECORDS SUMMARY | 2020-01-12 17:40 | XMS REPORT | CCD ---
Author Author Syd Simons D.O. Organization [facility] Address [address] [place] [address] Phone Care Team Providers Care Journalism Professor Name Role Phone Martita Simons D.O., PP Unavailable CCM Unavailable Summary Purpose Interface Exchange Insurance Providers Payer name Policy type / Coverage type Covered green party ID Effective Begin Date Effective End Date [facility] Commercial Insurance [id number] 1929 Unknown Family history Brother Diagnosis Age At Onset No Family Disease Entered N/A Father Diagnosis Age At Onset No Family Disease Entered N/A Mother Diagnosis Age At Onset No Family Disease Entered N/A Social History Social History Element Codes Description Effective Dates Tobacco history SNOMED CT: 64697255 Current every day smoker 06/2012 Number of [...] hydrocodone 10 mg-acetaminophen 325 mg tablet RxNorm: 228427 1 Tablet(s) PO Q6H as needed for pain 09/26/2019 No Stop Date Active (Response to an electronic controlled substance refill request - RxReferenceNumber: [id number]|1|0|1) hydrocodone 10 mg-acetaminophen 325 mg tablet RxNorm: 199028 1 Tablet(s) PO Q6H as needed for pain 08/26/2019 09/25/2019 Inactive (Response to an electronic controlled substance refill request - RxReferenceNumber: [id number]|1|0|1) hydrocodone 10 mg-acetaminophen 325 mg tablet RxNorm: 488763 1 Tablet(s) PO Q6H as needed for pain 07/25/2019 08/25/2019 Inactive (Response to an electronic controlled substance refill request - RxReferenceNumber: [id number]|1|0|1) hydrocodone 10 mg-acetaminophen 325 mg tablet RxNorm: 845300 1 Tablet(s) PO Q6H as needed for pain 06/26/2019 07/24/2019 Inactive (Response to an electronic controlled substance refill request - RxReferenceNumber: [id number]|1|0|1) hydrocodone 10 mg-acetaminophen 325 mg tablet RxNorm: 972034 1 Tablet(s) PO Q6H as needed for pain 05/28/2019 06/25/2019 Inactive (Response to an electronic controlled substance refill request - RxReferenceNumber: [id number]|1|0|1) hydrocodone 10 mg-acetaminophen 325 mg tablet RxNorm: 387862 1 Tablet(s) PO Q6H as needed for pain 02/25/2019 05/27/2019 Inactive (Response to an electronic controlled substance refill request - RxReferenceNumber: [id number]|1|0|1) hydrocodone 10 mg-acetaminophen 325 mg tablet RxNorm: 731071 1 Tablet(s) PO Q6H as needed for pain 11/26/2018 02/24/2019 Inactive (Response to an electronic controlled substance refill request - RxReferenceNumber: [id number]|1|0|1) hydrocodone 10 mg-acetaminophen 325 mg tablet RxNorm: 465756 1 Tablet(s) PO Q6H as needed for pain 10/30/2018 11/25/2018 Inactive (Response to an electronic controlled substance refill request - RxReferenceNumber: [id number]|1|0|1) hydrocodone 10 mg-acetaminophen 325 mg tablet RxNorm: 958785 1 Tablet(s) PO Q6H as needed for pain 09/26/2018 10/29/2018 Inactive (Response to an electronic controlled substance refill request - RxReferenceNumber: [id number]|1|0|1) hydrocodone 10 mg-acetaminophen 325 mg tablet RxNorm: 883689 1 Tablet(s) PO Q6H as needed for pain 08/30/2018 09/25/2018 Inactive (Response to an electronic controlled substance refill request - RxReferenceNumber: [id number]|1|0|1) hydrocodone 10 mg-acetaminophen 325 mg tablet RxNorm: 977738 1 Tablet(s) PO Q6H as needed for pain 08/01/2018 08/29/2018 Inactive (Response to an electronic controlled substance refill request - RxReferenceNumber: [id number]|1|0|1) hydrocodone 10 mg-acetaminophen 325 mg tablet RxNorm: 111609 1 Tablet(s) PO Q6H as needed for pain 07/04/2018 07/31/2018 Inactive (Response to an electronic controlled substance refill request - RxReferenceNumber: [id number]|1|0|1) hydrocodone 10 mg-acetaminophen 325 mg tablet RxNorm: 563753 1 Tablet(s) PO Q6H as needed for pain 05/31/2018 07/03/2018 Inactive (Response to an electronic controlled substance refill request - RxReferenceNumber: [id number]|1|0|1) hydrocodone 10 mg-acetaminophen 325 mg tablet RxNorm: 847003 1 Tablet(s) PO Q6H as needed for pain 05/01/2018 05/30/2018 Inactive (Response to an electronic controlled substance refill request - RxReferenceNumber: [id number]|1|0|1) hydrocodone 10 mg-acetaminophen 325 mg tablet RxNorm: 167542 1 Tablet(s) PO Q6H as needed for pain 04/03/2018 04/30/2018 Inactive (Response to an electronic controlled substance refill request - RxReferenceNumber: [id number]|1|0|1) hydrocodone 10 mg-acetaminophen 325 mg tablet RxNorm: 181250 1 Tablet(s) PO Q6H as needed for pain 02/26/2018 04/02/2018 Inactive (Response to an electronic controlled substance refill request - RxReferenceNumber: [id number]|1|0|1) clotrimazole-betamethasone 1 %-0.05 % topical cream RxNorm: 247851 TOP As Directed CALL IF NO IMPROVEMENT IN 2 WEEKS 01/30/2018 01/29/2018 Inact kole [SAVINGS FOR UNINSURED PATIENTS -- BIN:[id number], PCN: [id number], Group: [id number], ID# [id number], Process claim through [employer], for questions: . THIS IS NOT INSURANCE.] hydrocodone 10 mg-acetaminophen 325 mg tablet RxNorm: 337323 1 Tablet(s) PO Q6H as needed for pain 01/29/2018 02/25/2018 Inactive (Response to an electronic controlled substance refill request - RxReferenceNumber: [id number]|1|0|1) hydrocodone 10 mg-acetaminophen 325 mg tablet RxNorm: 984651 1 Tablet(s) PO Q6H as needed for pain 12/28/2017 01/28/2018 Inactive (Response to an electronic controlled substance refill request - RxReferenceNumber: [id number]|1|0|1) hydrocodone 10 mg-acetaminophen 325 mg tablet RxNorm: 212473 1 Tablet(s) PO Q6H as needed for pain 11/29/2017 12/27/2017 Inactive (Response to an electronic controlled substance refill request - RxReferenceNumber: [id number]|1|0|1) hydrocodone 10 mg-acetaminophen 325 mg tablet RxNorm: 275872 1 Tablet(s) PO Q6H as needed for pain 11/02/2017 11/28/2017 Inactive (Response to an electronic controlled substance refill request - RxReferenceNumber: [id number]|1|0|1) hydrocodone 10 mg-acetaminophen 325 mg tablet RxNorm: 274768 1 Tablet(s) PO Q6H as needed for pain 10/02/2017 11/01/2017 Inactive (Response to an electronic controlled substance refill request - RxReferenceNumber: [id number]|1|0|1) hydrocodone 10 mg-acetaminophen 325 mg tablet RxNorm: 154487 1 Tablet(s) PO Q6H as needed for pain 08/30/2017 10/01/2017 Inactive (Response to an electronic controlled substance refill request - RxReferenceNumber: [id number]|1|0|1) hydrocodone 10 mg-acetaminophen 325 mg tablet RxNorm: 440617 1 Tablet(s) PO Q6H as needed for pain 08/01/2017 08/29/2017 Inactive (Response to an electronic controlled substance refill request - RxReferenceNumber: [id number]|1|0|1) hydrocodone 10 mg-acetaminophen 325 mg tablet RxNorm: 358101 1 Tablet(s) PO Q6H as needed for pain 06/26/2017 07/31/2017 Inactive (Response to an electronic controlled substance refill request - RxReferenceNumber: [id number]|1|0|1) hydrocodone 10 mg-acetaminophen 325 mg tablet RxNorm: 742249 1 Tablet(s) PO Q6H as needed for pain 06/26/2017 06/30/2019 Inactive (Response to an electronic controlled substance refill request - RxReferenceNumber: [id number]|1|0|1) hydrocodone 10 mg-acetaminophen 325 mg tablet RxNorm: 721384 1 Tablet(s) PO Q6H as needed for pain 03/27/2017 06/25/2017 Inactive (Response to an electronic controlled substance refill request - RxReferenceNumber: [id number]|1|0|1) hydrocodone 10 mg-acetaminophen 325 mg tablet RxNorm: 736487 1 Tablet(s) PO Q6H as needed for pain 02/23/2017 03/26/2017 Inactive (Response to an electronic controlled substance refill request - RxReferenceNumber: [id number]|1|0|1) hydrocodone 10 mg-acetaminophen 325 mg tablet RxNorm: 283177 1 Tablet(s) PO Q6H as needed for pain 01/24/2017 02/22/2017 Inactive (Response to an electronic controlled substance refill request - RxReferenceNumber: [id number]|1|0|1) hydrocodone 10 mg-acetaminophen 325 mg tablet RxNorm: 096091 1 Tablet(s) PO Q6H as needed for pain 12/27/2016 06/30/2019 Inactive (Response to an electronic controlled substance refill request - RxReferenceNumber: [id number]|1|0|1) hydrocodone 10 mg-acetaminophen 325 mg tablet RxNorm: 063184 1 Tablet(s) PO Q6H as needed for pain 12/27/2016 01/23/2017 Inactive (Response to an electronic controlled substance refill request - RxReferenceNumber: [id number]|1|0|1) hydrocodone 10 mg-acetaminophen 325 mg tablet RxNorm: 635029 1 Tablet(s) PO Q6H as needed for pain 11/23/2016 12/26/2016 Inactive (Response to an electronic controlled substance refill request - RxReferenceNumber: [id number]|1|0|1) hydrocodone 10 mg-acetaminophen 325 mg tablet RxNorm: 404444 1 Tablet(s) PO Q6H as needed for pain 10/20/2016 11/22/2016 Inactive (Response to an electronic controlled substance refill request - RxReferenceNumber: [id number]|1|0|1) hydrocodone 10 mg-acetaminophen 325 mg tablet RxNorm: 012361 1 Tablet(s) PO Q6H as needed for pain 09/26/2016 10/19/2016 Inactive (Response to an electronic controlled substance refill request - RxReferenceNumber: [id number]|1|0|1) hydrocodone 10 mg-acetaminophen 325 mg tablet RxNorm: 046861 1 Tablet(s) PO Q6H as needed for pain 07/27/2016 09/25/2016 Inactive (Response to an electronic controlled substance refill request - RxReferenceNumber: [id number]|1|0|1) hydrocodone 10 mg-acetaminophen 325 mg tablet RxNorm: 405909 1 Tablet(s) PO Q6H as needed for pain 05/04/2016 07/26/2016 Inactive (Response to an electronic controlled substance refill request - RxReferenceNumber: [id number]|1|0|1) hydrocodone 10 mg-acetaminophen 325 mg tablet RxNorm: 188824 1 Tablet(s) PO Q6H as needed for pain 03/31/2016 05/03/2016 Inactive (Response to an electronic controlled substance refill request - RxReferenceNumber: [id number]|1|0|1) citalopram 10 mg tablet RxNorm: 682994 1 Tablet(s) PO QD 09/28/2015 0 09/27/2015 Inactive citalopram 10 mg tablet RxNorm: 181591 1 Tablet(s) PO QD 09/28/2015 0 09/06/2016 Inactive Wellbutrin SR 150 mg tablet,sustained-release RxNorm: 627364 1 Tablet(s) PO QAM 09/25/2015 09/06/2016 Inactive prednisone 20 mg tablet RxNorm: 995971 1 Tablet(s) PO T ID for 3 days then 1 po BID for 3 days then one daily for 3 days 08/31/2015 09/06/2016 Inactiv e cyclobenzaprine 10 mg tablet RxNorm: 096199 1 Tablet(s) PO TID as needed for muscle spasm 08/31/2015 07/17/2017 Inactive hydrocodone 10 mg-acetaminophen 325 mg tablet RxNorm: 230588 1 Tablet(s) PO Q6H as needed for pain 08/26/2015 03/30/2016 Inactive (Response to an electronic controlled substance refill request - RxReferenceNumber: [id number]|1|0|1) hydrocodone 10 mg-acetaminophen 325 mg tablet RxNorm: 770792 1 Tablet(s) PO Q6H as needed for pain 07/28/2015 08/25/2015 Inactive (Response to an electronic controlled substance refill request - RxReferenceNumber: [id number]|1|0|1) hydrocodone 10 mg-acetaminophen 325 mg tablet RxNorm: 840154 1 Tablet(s) PO Q6H as needed for pain 06/23/2015 07/27/2015 Inactive (Response to an electronic controlled substance refill request - RxReferenceNumber: [id number]|1|0|1) hydrocodone 10 mg-acetaminophen 325 mg tablet RxNorm: 626667 1 Tablet(s) PO Q6H as needed for pain 05/21/2015 06/22/2015 Inactive (Response to an electronic controlled substance refill request - RxReferenceNumber: [id number]|1|0|1) azithromycin 250 mg tablet RxNorm: 786202 2 Tablet(s) P O on day one, then one tablet on days 2 - 5 04/27/2015 08/30/2015 Inactive hydrocodone 10 mg-acetaminophen 325 mg tablet RxNorm: 156494 1 Tablet(s) PO Q6H as needed for pain 03/25/2015 05/20/2015 Inactive (Response to an electronic controlled substance refill request - RxReferenceNumber: [id number]|1|0|1) hydrocodone 10 mg-acetaminophen 325 mg tablet RxNorm: 637462 1 Tablet(s) PO Q6H as needed for pain 02/24/2015 03/24/2015 Inactive (Response to an electronic controlled substance refill request - RxReferenceNumber: [id number]|1|0|1) hydrocodone 10 mg-acetaminophen 325 mg tablet RxNorm: 668536 1 Tablet(s) PO Q6H as needed for pain 01/23/2015 02/23/2015 Inactive (Response to an electronic controlled substance refill request - RxReferenceNumber: [id number]|1|0|1) hydrocodone 10 mg-acetaminophen 325 mg tablet RxNorm: 841025 1 Tablet(s) PO Q6H as needed for pain 12/23/2014 01/22/2015 Inactive (Response to an electronic controlled substance refill request - RxReferenceNumber: [id number]|1|0|1) hydrocodone 10 mg-acetaminophen 325 mg tablet RxNorm: 626653 1 Tablet(s) PO Q6H as needed for pain 11/24/2014 12/22/2014 Inactive (Response to an electronic controlled substance refill request - RxReferenceNumber: [id number]|1|0|1) hydrocodone 10 mg-acetaminophen 325 mg tablet RxNorm: 139313 1 Tablet(s) PO Q6H as needed for pain 10/28/2014 11/23/2014 Inactive (Response to an electronic controlled substance refill request - RxReferenceNumber: [id number]|1|0|1) hydrocodone 10 mg-acetaminophen 325 mg tablet RxNorm: 948273 1 Tablet(s) PO Q6H as needed for pain 09/25/2014 10/27/2014 Inactive (Response to an electronic controlled substance refill request - RxReferenceNumber: [id number]|1|0|1) Lipitor 80 mg tablet RxNorm: 852580 1 Tablet(s) PO QHS 09/24/2014 Inactive hydrocodone 10 mg-acetaminophen 325 mg tablet RxNorm: 382791 1 Tablet(s) PO Q6H as needed for pain 07/30/2014 09/24/2014 Inactive (Response to an electronic controlled substance refill request - RxReferenceNumber: [id number]|1|0|1) hydrocodone 10 mg-acetaminophen 325 mg tablet RxNorm: 521933 1 Tablet(s) PO Q6H as needed for pain 05/27/2014 07/29/2014 Inactive (Response to an electronic controlled substance refill request - RxReferenceNumber: [id number]|1|0|1) clotrimazole-betamethasone 1 %-0.05 % topical cream RxNorm: 142409 TOP As Directed 05/01/2014 08/30/2015 Inactive [SAVINGS FOR UNI NSURED PATIENTS -- BIN:[id number], PCN: [id number], Group: [id number], ID# [id number], Process claim through [employer], for questions: . THIS IS NOT INSURANCE.] Lipitor 80 mg tablet RxNorm: 903448 1 Tablet(s) PO QHS 04/28/2014 Inactive hydrocodone 10 mg-acetaminophen 325 mg tablet RxNorm: 449647 1 Tablet(s) PO Q6H as needed for pain 04/28/2014 05/26/2014 Inactive (Response to an electronic controlled substance refill request - RxReferenceNumber: [id number]|1|0|1) hydrocodone 10 mg-acetaminophen 325 mg tablet RxNorm: 419477 1 Tablet(s) PO Q6H as needed for pain 03/27/2014 04/27/2014 Inactive (Response to an electronic controlled substance refill request - RxReferenceNumber: [id number]|1|0|1) hydrocodone 10 mg-acetaminophen 325 mg tablet RxNorm: 879249 1 Tablet(s) PO Q6H as needed for pain 12/20/2013 12/20/2013 Inactive (Appended: Co ntrolled substance eRx refill - RxReferenceNumber: [id number]|1|0|1) hydrocodone 10 mg-acetaminophen 325 mg tablet RxNorm: 115734 TAKE 1 TABLET BY MOUTH EVERY 6 HOURS NEEDED FOR PAIN 12/20/2013 01/12/2014 Inactive (Response to an electronic controlled substance refill request - RxReferenceNumber: [id number]|1|0|1) hydrocodone 10 mg-acetaminophen 325 mg tablet RxNorm: 153289 1 Tablet(s) PO Q6H as needed for pain 09/03/2013 12/19/2013 Inactive (Appended: Co ntrolled substance eRx refill - RxReferenceNumber: [id number]|1|0|1) hydrocodone 10 mg-acetaminophen 325 mg tablet RxNorm: 906257 Tablet(s) PO TAKE 1 TABLET BY MOUTH EVERY 6 HOURS NEEDED FOR PAIN 08/08/2013 09/03/2013 Inactive (Appended: Controlled substance eRx refill - RxReferenceNumber: [id number]|1|0|1) hydrocodone 10 mg-acetaminophen 325 mg tablet RxNorm: 807548 Tablet(s) PO TAKE 1 TABLET BY MOUTH EVERY 6 HOURS NEEDED FOR PAIN 07/11/2013 08/07/2013 Inactive (Appended: Controlled substance eRx refill - RxReferenceNumber: [id number]|1|0|1) hydrocodone 10 mg-acetaminophen 325 mg tablet RxNorm: 656628 2 Tablet(s) PO TAKE 1 TABLET BY MOUTH EVERY 6 HOURS NEEDED FOR PAIN 06/12/2013 3 Inactive (Appended: Controlled substance eRx ref ill - RxReferenceNumber: [id number]|1|0|1) hydrocodone 10 mg-acetaminophen 325 mg tablet RxNorm: 713239 2 1 Tablet(s) PO Q6H NEEDED FOR PAIN 05/15/2013 06/12/2013 Inactive (Appended: Co ntrolled substance eRx refill - RxReferenceNumber: [id number]|1|0|1) hydrocodone 10 mg-acetaminophen 325 mg tablet RxNorm: 441759 2 Tablet(s) PO TAKE 1 TO 2 TABLETS BY MOUTH EVERY 6 HOURS NEEDED FOR PAIN 04/18/2013 No Stop Date Active (Appended: Controlled substa nce eRx refill - RxReferenceNumber: [id number]|1|0|1) hydrocodone 10 mg-acetaminophen 325 mg tablet RxNorm: 369638 2 Tablet(s) PO TAKE 1 TO 2 TABLETS BY MOUTH EVERY 6 HOURS NEEDED FOR PAIN 03/19/2013 No Stop Date Active (Appended: Controlled substa nce eRx refill - RxReferenceNumber: [id number]|1|0|1) hydrocodone 10 mg-acetaminophen 325 mg tablet RxNorm: 936584 2 Tablet(s) PO TAKE 1 TO 2 TABLETS BY MOUTH EVERY 6 HOURS NEEDED FOR PAIN 02/06/2013 Inactive (Appended: Controlled substance eRx refi ll - RxReferenceNumber: [id number]|1|0|1) hydrocodone 10 mg-acetaminophen 325 mg tablet RxNorm: 953949 2 Tablet(s) PO TAKE 1 TO 2 TABLETS BY MOUTH EVERY 6 HOURS NEEDED FOR PAIN 01/08/201304/2013 Inactive (Appended: Controlled substance eRx ref ill - RxReferenceNumber: [id number]|1|0|1) Zithromax 250 mg tablet RxNorm: 420259 2 Tablet(s) PO QD 12/04/2012 0 12/10/2012 Inactive prednisone 20 mg tablet RxNorm: 088912 1 Tablet(s) PO BID 12/04/2012 12/10/2012 Inactive atorvastatin 40 mg tablet RxNorm: 141167 1 Tablet(s) PO QD 11/09/19 13 12/17/2013 Inactive hydrocodone 10 mg-acetaminophen 325 mg tablet RxNorm: 592273 2 Tablet(s) PO TAKE 1 TO 2 TABLETS BY MOUTH EVERY 6 HOURS NEEDED FOR PAIN 10/18/201205/2013 Inactive (Appended: Controlled substance eRx ref ill - RxReferenceNumber: [id number]|1|0|1) hydrocodone 10 mg-acetaminophen 325 mg tablet RxNorm: 284254 2 1-2 Tablet(s) PO Q6H as needed for pain 09/06/2012 10/18/2012 Inactive Lamisil 250 mg tablet RxNorm: 561117 1 Tablet(s) PO QD 08/14/2012 Inactive atorvastatin 40 mg tablet RxNorm: 485365 1 Tablet(s) PO QD 08/08/19 13 11/05/2012 Inactive prednisone 20 mg tablet RxNorm: 329879 1 Tablet(s) PO BID 07/17/2012 07/23/2012 Inactive Wellbutrin SR 150 mg tablet,extended release RxNorm: 650240 1 T ablet(s) PO BID 07/17/2012 08/13/2012 Inactive meloxicam 15 mg tablet RxNorm: 356700 1 Tablet(s) PO QD for pain 07/16/2012 Inactive atorvastatin 40 mg tablet RxNorm: 615533 1 Tablet(s) PO QD 06/27/2008/07/2012 Inactive hydrocodone-acetaminophen 10 mg-325 mg tablet RxNorm: 080574 2 1-2 Tablet(s) PO Q6H as needed for pain 05/23/2012 No Stop Date Active hydrocodone-acetaminophen 10 mg-325 mg tablet RxNorm: 453631 2 1-2 Tablet(s) PO Q6H as needed for pain 04/24/2012 No Stop Date Active hydrocodone-acetaminophen 10 mg-325 mg tablet RxNorm: 598941 2 1-2 Tablet(s) PO Q6H as needed for pain 02/08/2012 No Stop Date Active hydrocodone-acetaminophen 10 mg-325 mg Tab RxNorm: 0354791 1-2 Tablet(s) PO Q6H as needed for pain 01/02/2012 No Stop Date Active hydrocodone-acetaminophen 10 mg-325 mg Tab RxNorm: 6113191 1-2 Tablet(s) PO Q6H as needed for pain 11/29/2011 No Stop Date Active hydrocodone-acetaminophen 10 mg-325 mg Tab RxNorm: 5382808 1-2 Tablet(s) PO Q6H as needed for pain 10/24/2011 No Stop Date Active hydrocodone-acetaminophen 10 mg-325 mg Tab RxNorm: 2968193 1-2 Tablet(s) PO Q6H as needed for pain 10/07/2011 No Stop Date Active simvastatin 40 mg Tab RxNorm: 417662 1 Tablet(s) PO QHS 08/11/2011 Inactive clopidogrel 75 mg tablet RxNorm: 170563 1 Tablet(s) PO QD No Start Da te Active metoprolol succinate ER 25 mg tablet,extended release 24 hr RxNorm: 259049 1 Tablet(s) PO QD No Start Date Active Symbicort 160 mcg-4.5 mcg/actuation HFA aerosol inhaler RxNo rm: 9450557 2 INH QD No Start Date Active atorvastatin 40 mg tablet RxNorm: 481026 1 Tablet(s) PO QD No Start D ate Active aspirin 81 mg tablet RxNorm: 503659 1 Tablet(s) PO QD No Start Date Active Vitamin D3 2,000 unit tablet RxNorm: 669084 3 Tablet(s) PO No Start D ate Active lisinopril 5 mg tablet RxNorm: 876542 1 Tablet(s) PO QD No Start Date Active hydrocodone-acetaminophen 10 mg-325 mg Tab RxNorm: 4202512 1-2 Tablet(s) PO Q6H as needed for pain No Start Date 10/06/2011 Inactive Wellbutrin SR 150 mg tablet,sustained-release RxNorm: 272792 1 Tablet(s) PO QAM No Start Date 09/24/2015 Inactive OxyContin 15 mg 12 hr Tab RxNorm: 2524635 1 Tablet(s) PO BID No Sta rt Date 08/10/2011 Inactive warfarin 5 mg Tab RxNorm: 258075 1 Tablet(s) PO QD No Start Date 03/01 Inactive albuterol sulfate 1.25 mg/3 mL Neb Solution RxNorm: 205416 1 Unit Dose INH prn wheezing, congestion, shortness of breath No Start Date 04/30/2014 Inacti ve azithromycin 250 mg tablet RxNorm: 989941 2 Tablet(s) P O on day one, then one tablet on days 2 - 5 No Start Date 04/26/2015 Inactive warfarin 10 mg Tab RxNorm: 178311 1 Tablet(s) PO QOD No Start Date Inactive Symbicort Inhl RxNorm: Inhalation No Start Date 12/16/2013 Inactive Trilipix 135 mg Cap RxNorm: 410905 1 Capsule(s) PO QD No Start Date 0 12/07/2011 Inactive Chantix Starting Month Box 0.5 mg (11)-1 mg (42) table ts in dose pack RxNorm: 838505 Tablet(s) PO as directed No Start Date 12/03/2012 Inactive clotrimazole-betamethasone 1 %-0.05 % topical cream RxNorm: 567170 TOP As Directed No Start Date 04/30/2014 Inactive nystatin-triamcinolone 100,000 unit/g-0.1 % Topical Cream Rx Norm: 6137554 Application TOP BID for 2-4weeks No Start Date 12/03/2012 Inactive Lovastatin 20 mg Tab RxNorm: 619607 1 Tablet(s) PO QHS No Start Date 08/10/2011 Inactive krill oil oral RxNorm: 35206 oral No Start Date 06/30/2019 Inacti ve warfarin 7.5 mg Tab RxNorm: 487027 1 Tablet(s) PO QOD No Start Date 1 09/16/2011 Inactive Lipitor 80 mg tablet RxNorm: 937143 1 Tablet(s) PO QHS No Start Date 04/27/2014 Inactive simvastatin 40 mg Tab RxNorm: 495220 1 Tablet(s) PO QHS No Start Da te 08/10/2011 Inactive Gemfibrozil 600 mg Tab RxNorm: 353358 1 Tablet(s) PO QHS No Start D ate 08/10/2011 Inactive Medication Administered No Medication Administered data Immunizations No Immunization data Results Observation Observation Code Item Item Code Result Date S [facility] Location COMPLETE BLOOD COUNT [id number] WBC 9.7 10e9/L 06/19/20 18 Unknown COMPLETE BLOOD COUNT [id number] RBC 5.35 10e12/L 2017 Unknown COMPLETE BLOOD COUNT [id number] HEMOGLOBIN 17.1 g/dL 06/19/20 18 Unknown COMPLETE BLOOD COUNT [id number] HEMATOCRIT 52.4 % 06/19/20 18 Unknown COMPLETE BLOOD COUNT [id number] MCV 97.9 fL 8 Unknown COMPLETE BLOOD COUNT [id number] MCH 32.0 pg 8 Unknown COMPLETE BLOOD COUNT [id number] MCHC 32.6 g/dL 8 Unknown COMPLETE BLOOD COUNT [id number] PLATELET COUNT 257 10e9/L Unknown COMPLETE BLOOD COUNT [id number] Mean Plt Volume 11.2 fL Unknown COMPLETE BLOOD COUNT [id number] Neut Auto 54.6 % 8 Unknown COMPLETE BLOOD COUNT [id number] Lymph Auto 33.3 % 06/19/20 18 Unknown COMPLETE BLOOD COUNT [id number] [place] Auto 9.1 % 8 Unknown COMPLETE BLOOD COUNT 1631278 RDW 14.4 % 8 Unknown COMPLETE BLOOD COUNT [id number] Eos Auto 2.6 % 8 Unknown COMPLETE BLOOD COUNT 0956395 Baso Auto 0.4 % 8 Unknown COMPLETE BLOOD COUNT [id number] Neutrophil Abs 5.30 10e9/L Unknown COMPLETE BLOOD COUNT [id number] Lymphocyte Abs 3.23 10e9/L Unknown COMPLETE BLOOD COUNT [id number] Monocyte Abs 0.88 10e9/L 06/01 Unknown COMPLETE BLOOD COUNT [id number] Eosinophil Abs 0.25 10e9/L Unknown COMPLETE BLOOD COUNT [id number] RDW-SD 51.8 fL 8 Unknown COMPLETE BLOOD COUNT [id number] Basophil Abs 0.04 10e9/L 06/01 Unknown LIPID GROUP 21092 Cholesterol 222 mg/dL 06/19/2018 Unkno wn LIPID GROUP 96460 Triglyceride 111 mg/dL 06/19/2018 Unkn own LIPID GROUP 48723 HDL CHOLESTEROL 37 mg/dL 06/19/2018 U nknown LIPID GROUP 83372 Chol/HDL Ratio 6.00 ratio 06/19/2018 U nknown LIPID GROUP 83909 NON-HDL Chol 185 mg/dL 06/19/2018 Unkn own LIPID GROUP 68154 LDL Cholesterol 163 mg/dL 06/19/2018 U nknown VITAMIN B 12 61372 VITAMIN B12 532 pg/mL 06/19/2018 Unkn own THYROID STIMULATING HORMONE 44693 TSH 2.685 uIU/mL 06/19/2018 Unknown COMPREHENSIVE METABOLIC 81067 AST 15 U/L 2017 Unknown COMPREHENSIVE METABOLIC 91020 ALT 21 U/L 2017 Unknown COMPREHENSIVE METABOLIC 09204 BUN 16 mg/dL 2017 Unknown COMPREHENSIVE METABOLIC 00546 ALBUMIN 4.1 g/dL 2017 Unknown COMPREHENSIVE METABOLIC 25971 CHLORIDE 99 mmol/L 2017 Unknown COMPREHENSIVE METABOLIC 78031 Bili Total 0.4 mg/dL 06/19 Unknown COMPREHENSIVE METABOLIC 57856 ALK PHOS 43 U/L 2017 Unknown COMPREHENSIVE METABOLIC 59395 SODIUM 136 mmol/L 06/19 Unknown COMPREHENSIVE METABOLIC 38084 CREATININE 0.82 mg/dL 06/01 Unknown COMPREHENSIVE METABOLIC 40656 CALCIUM 9.5 mg/dL 2017 Unknown COMPREHENSIVE METABOLIC 62413 POTASSIUM 5.2 mmol/L 06/19 Unknown COMPREHENSIVE METABOLIC 32558 Total Protein 6.7 g/dL Unknown COMPREHENSIVE METABOLIC 77542 Glucose 81 mg/dL 2017 Unknown COMPREHENSIVE METABOLIC 67776 Bicarbonate 30 mmol/L 06/01 Unknown COMPREHENSIVE METABOLIC 78380 AGAP 7 mmol/L 2017 Unknown FREE T4 85139 T4 Free 0.85 ng/dL 06/19/2018 Unknown GFR CALC 4453548 GFR Non Afr Amr >60 mL/min 06/19/2018 Un known GFR CALC 1384441 GFR Afr Amr >60 mL/min 06/19/2018 Unknow n VITAMIN D TOTAL (25 HYDROXY) 58265 Vitamin D 25 OH 24.1 ng/mL 06/19/2018 Unknown PSA EQUIMOLAR TROY 47971 PSA Total 0.88 ng/mL 8 Unknown GFR CALC 8504446 GFR Non Afr Amr >60 mL/min 09/09/2016 Un known GFR CALC 8178080 GFR Afr Amr >60 mL/min 09/09/2016 Unknow n COMPLETE BLOOD COUNT 5323486 WBC 11.7 10e9/L 017 Unknown COMPLETE BLOOD COUNT 4652950 RBC 5.54 10e12/L 2016 Unknown COMPLETE BLOOD COUNT [id number] HEMOGLOBIN 17.6 g/dL 09/09/19 17 Unknown COMPLETE BLOOD COUNT 8462191 HEMATOCRIT 52.3 % 09/09/19 17 Unknown COMPLETE BLOOD COUNT 5851687 MCV 94.4 fL 7 Unknown COMPLETE BLOOD COUNT 8276712 MCH 31.8 pg 7 Unknown COMPLETE BLOOD COUNT 9536130 MCHC 33.7 g/dL 7 Unknown COMPLETE BLOOD COUNT 0573556 PLATELET COUNT 259 10e9/L 04/2017 Unknown COMPLETE BLOOD COUNT 0818519 Mean Plt Volume 11.2 fL 04/2017 Unknown COMPLETE BLOOD COUNT 9558380 Neut Auto 53.6 % 7 Unknown COMPLETE BLOOD COUNT 2752487 Lymph Auto 36.2 % 09/09/19 17 Unknown COMPLETE BLOOD COUNT 6682542 [place] Auto 7.9 % 7 Unknown COMPLETE BLOOD COUNT 6259571 RDW 14.2 % 7 Unknown COMPLETE BLOOD COUNT 1978645 Eos Auto 2.1 % 7 Unknown COMPLETE BLOOD COUNT 0055873 Baso Auto 0.2 % 7 Unknown COMPLETE BLOOD COUNT 7274268 Neutrophil Abs 6.27 10e9/L Unknown COMPLETE BLOOD COUNT 4326179 Lymphocyte Abs 4.24 10e9/L Unknown COMPLETE BLOOD COUNT [id number] Monocyte Abs 0.92 10e9/L 08/31 Unknown COMPLETE BLOOD COUNT 0155064 Eosinophil Abs 0.25 10e9/L Unknown COMPLETE BLOOD COUNT 1676135 RDW-SD 48.1 fL 7 Unknown COMPLETE BLOOD COUNT 6211311 Basophil Abs 0.02 10e9/L 08/31 Unknown COMPREHENSIVE METABOLIC 31492 AST 19 U/L 2016 Unknown COMPREHENSIVE METABOLIC 85141 ALT 25 U/L 2016 Unknown COMPREHENSIVE METABOLIC 80733 BUN 16 mg/dL 2016 Unknown COMPREHENSIVE METABOLIC 84186 ALBUMIN 4.8 g/dL 2016 Unknown COMPREHENSIVE METABOLIC 33228 CHLORIDE 100 mmol/L 09/09 Unknown COMPREHENSIVE METABOLIC 53098 Bili Total 0.7 mg/dL 09/09 Unknown COMPREHENSIVE METABOLIC 02927 ALK PHOS 50 U/L 2016 Unknown COMPREHENSIVE METABOLIC 84510 SODIUM 136 mmol/L 09/09 Unknown COMPREHENSIVE METABOLIC 54126 CREATININE 0.98 mg/dL 08/31 Unknown COMPREHENSIVE METABOLIC 06350 CALCIUM 9.8 mg/dL 2016 Unknown COMPREHENSIVE METABOLIC 11774 POTASSIUM 4.6 mmol/L 09/09 Unknown COMPREHENSIVE METABOLIC 28203 Total Protein 7.5 g/dL Unknown COMPREHENSIVE METABOLIC 91473 Glucose 104 mg/dL 2016 Unknown COMPREHENSIVE METABOLIC 32918 Bicarbonate 27 mmol/L 08/31 Unknown COMPREHENSIVE METABOLIC 52678 AGAP 9 mmol/L 2016 Unknown FREE T4 67751 T4 Free 1.04 ng/dL 09/09/2016 Unknown THYROID STIMULATING HORMONE 83583 TSH 1.618 uIU/mL 09/09/2016 Unknown LIPID GROUP 40997 Cholesterol 251 mg/dL 09/09/2016 Unkno wn LIPID GROUP 40333 Triglyceride 153 mg/dL 09/09/2016 Unkn own LIPID GROUP 06996 HDL CHOLESTEROL 33 mg/dL 09/09/2016 U nknown LIPID GROUP 20323 Chol/HDL Ratio 7.61 ratio 09/09/2016 U nknown LIPID GROUP 39727 NON-HDL Chol 218 mg/dL 09/09/2016 Unkn own LIPID GROUP 89339 LDL Cholesterol 187 mg/dL 09/09/2016 U nknown LIPID GROUP 94550 HDL TEST 39 MG/DL 09/15/2015 Unknown LIPID GROUP 07173 TRIG 106 MG/DL 09/15/2015 Unknown LIPID GROUP 59764 TEST LDL 152 MG/DL 09/15/2015 Unknown LIPID GROUP 57675 CHOL 212 MG/DL 09/15/2015 Unknown LIPID GROUP 63048 RCHOL/HDL 5.44 RATIO 09/15/2015 Unknow n LIPID GROUP 46046 NON-HDL CH 173 MG/DL 09/15/2015 Unknow n GFR CALC 0195119 GFR AA >60 ML/MIN 09/15/2015 Unknown GFR CALC 7599808 GFR NON-AA >60 ML/MIN 09/15/2015 Unknown COMPREHENSIVE METABOLIC 02618 AST 18 U/L 2015 Unknown COMPREHENSIVE METABOLIC 88749 ALT 28 IU/L 2015 Unknown COMPREHENSIVE METABOLIC 34945 BUN 14 MG/DL 2015 Unknown COMPREHENSIVE METABOLIC 41832 ALBUMIN 4.2 GM/DL 2015 Unknown COMPREHENSIVE METABOLIC 00282 CHLORIDE 101 MMOL/L 09/15 Unknown COMPREHENSIVE METABOLIC 93028 BILI TOT 0.6 MG/DL 2015 Unknown COMPREHENSIVE METABOLIC 92028 ALK PHOS 48 U/L 2015 Unknown COMPREHENSIVE METABOLIC 91149 SODIUM 135 MMOL/L 09/15 Unknown COMPREHENSIVE METABOLIC 58050 CREATININE 0.91 MG/DL 08/31 Unknown COMPREHENSIVE METABOLIC 96053 CALCIUM 9.2 MG/DL 2015 Unknown COMPREHENSIVE METABOLIC 23264 POTASSIUM 4.6 MMOL/L 09/15 Unknown COMPREHENSIVE METABOLIC 49785 PROT TOT 6.6 GM/DL 2015 Unknown COMPREHENSIVE METABOLIC 13646 Glucose 97 MG/DL 2015 Unknown COMPREHENSIVE METABOLIC 94892 BICARB 27 MMOL/L 2015 Unknown COMPREHENSIVE METABOLIC 43013 ANION GAP 7 MEQ/L 2015 Unknown LIPID GROUP 11607 HDL TEST 35 MG/DL 04/14/2015 Unknown LIPID GROUP 83471 TRIG 135 MG/DL 04/14/2015 Unknown LIPID GROUP 33739 TEST LDL 153 MG/DL 04/14/2015 Unknown LIPID GROUP 49808 CHOL 215 MG/DL 04/14/2015 Unknown LIPID GROUP 27482 RCHOL/HDL 6.14 RATIO 04/14/2015 Unknow n LIPID GROUP 12880 NON-HDL CH 180 MG/DL 04/14/2015 Unknow n GFR CALC 9013288 GFR AA >60 ML/MIN 04/14/2015 Unknown GFR CALC 3477002 GFR NON-AA >60 ML/MIN 04/14/2015 Unknown COMPREHENSIVE METABOLIC 12723 AST 23 U/L 2014 Unknown COMPREHENSIVE METABOLIC 12502 ALT 27 IU/L 2014 Unknown COMPREHENSIVE METABOLIC 80441 BUN 15 MG/DL 2014 Unknown COMPREHENSIVE METABOLIC 48672 ALBUMIN 4.2 GM/DL 2014 Unknown COMPREHENSIVE METABOLIC 85603 CHLORIDE 103 MMOL/L 04/14 Unknown COMPREHENSIVE METABOLIC 94920 BILI TOT 0.8 MG/DL 2014 Unknown COMPREHENSIVE METABOLIC 82406 ALK PHOS 50 U/L 2014 Unknown COMPREHENSIVE METABOLIC 53772 SODIUM 134 MMOL/L 04/14 Unknown COMPREHENSIVE METABOLIC 27199 CREATININE 0.93 MG/DL 03/31 Unknown COMPREHENSIVE METABOLIC 33421 CALCIUM 9.4 MG/DL 2014 Unknown COMPREHENSIVE METABOLIC 19134 POTASSIUM 4.4 MMOL/L 04/14 Unknown COMPREHENSIVE METABOLIC 20416 PROT TOT 6.8 GM/DL 2014 Unknown COMPREHENSIVE METABOLIC 75157 Glucose 101 MG/DL 2014 Unknown COMPREHENSIVE METABOLIC 59209 BICARB 25 MMOL/L 2014 Unknown COMPREHENSIVE METABOLIC 61758 ANION GAP 6 MEQ/L 2014 Unknown PSA EQUIMOLAR TROY 28854 PSA EQ 1.04 NG/ML 5 Unknown GFR CALC 7912236 GFR AA >60 ML/MIN 11/10/2014 Unknown GFR CALC 9991329 GFR NON-AA >60 ML/MIN 11/10/2014 Unknown LIPID GROUP 19113 HDL TEST 31 MG/DL 11/10/2014 Unknown LIPID GROUP 15934 TRIG 133 MG/DL 11/10/2014 Unknown LIPID GROUP 23355 TEST LDL 74 MG/DL 11/10/2014 Unknown LIPID GROUP 06132 CHOL 132 MG/DL 11/10/2014 Unknown LIPID GROUP 87760 RCHOL/HDL 4.26 RATIO 11/10/2014 Unknow n LIPID GROUP 49839 NON-HDL CH 101 MG/DL 11/10/2014 Unknow n COMPLETE BLOOD COUNT 5154412 WBC 10.2 10e9/L 015 Unknown COMPLETE BLOOD COUNT 9439442 RBC 5.01 10e12/L 2014 Unknown COMPLETE BLOOD COUNT 7616126 HGB 16.1 g/dL 5 Unknown COMPLETE BLOOD COUNT 0830112 HCT DET 48.1 % 5 Unknown COMPLETE BLOOD COUNT 5785965 MCV 96.0 fL 5 Unknown COMPLETE BLOOD COUNT 1110892 MCH 32.1 pg 5 Unknown COMPLETE BLOOD COUNT 6328054 MCHC 33.5 g/dL 5 Unknown COMPLETE BLOOD COUNT 5719123 PLT 248 10e9/L 11/11/19 15 Unknown COMPLETE BLOOD COUNT 6586749 MPV 11.4 fL 5 Unknown COMPLETE BLOOD COUNT 5326192 GIUSEPPE % 51.2 % 5 Unknown COMPLETE BLOOD COUNT 3350197 LY % 37.4 % 5 Unknown COMPLETE BLOOD COUNT 3413766 MON % 9.2 % 5 Unknown COMPLETE BLOOD COUNT 0932651 EOS % 2.0 % 5 Unknown COMPLETE BLOOD COUNT 6709079 BASO % 0.2 % 5 Unknown COMPLETE BLOOD COUNT 5806089 RDW 14.0 % 5 Unknown COMPLETE BLOOD COUNT 7279231 ABS GIUSEPPE 5.22 10e9/L 015 Unknown COMPLETE BLOOD COUNT 4746928 ABS LYMPH 3.81 10e9/L 015 Unknown COMPLETE BLOOD COUNT 7877057 ABS MONO 0.94 10e9/L 015 Unknown COMPLETE BLOOD COUNT 7685433 ABS EOS 0.20 10e9/L 015 Unknown COMPLETE BLOOD COUNT 9807675 ABS BASO 0.02 10e9/L 015 Unknown COMPLETE BLOOD COUNT 7291284 RDW-SD 47.8 fL 5 Unknown FREE T4 22275 FREE T4 0.92 NG/DL 11/10/2014 Unknown COMPREHENSIVE METABOLIC 91788 AST 18 U/L 2014 Unknown COMPREHENSIVE METABOLIC 05581 ALT 25 IU/L 2014 Unknown COMPREHENSIVE METABOLIC 14455 BUN 16 MG/DL 2014 Unknown COMPREHENSIVE METABOLIC 37132 ALBUMIN 4.5 GM/DL 2014 Unknown COMPREHENSIVE METABOLIC 94973 CHLORIDE 103 MMOL/L 11/10 Unknown COMPREHENSIVE METABOLIC 34403 BILI TOT 0.4 MG/DL 2014 Unknown COMPREHENSIVE METABOLIC 00473 ALK PHOS 53 U/L 2014 Unknown COMPREHENSIVE METABOLIC 96188 SODIUM 135 MMOL/L 11/10 Unknown COMPREHENSIVE METABOLIC 65647 CREATININE 0.97 MG/DL 10/29 Unknown COMPREHENSIVE METABOLIC 29484 CALCIUM 9.4 MG/DL 2014 Unknown COMPREHENSIVE METABOLIC 66885 POTASSIUM 4.4 MMOL/L 11/10 Unknown COMPREHENSIVE METABOLIC 28638 PROT TOT 6.9 GM/DL 2014 Unknown COMPREHENSIVE METABOLIC 33463 Glucose 91 MG/DL 2014 Unknown COMPREHENSIVE METABOLIC 34167 BICARB 26 MMOL/L 2014 Unknown COMPREHENSIVE METABOLIC 48503 ANION GAP 6 MEQ/L 2014 Unknown THYROID STIMULATING HORMONE 23272 TSH 3.791 uIU/ML 11/10/2014 Unknown LIPID GROUP 81418 HDL TEST 35 MG/DL 04/29/2014 Unknown LIPID GROUP 81796 TRIG 123 MG/DL 04/29/2014 Unknown LIPID GROUP 82992 TEST LDL 117 MG/DL 04/29/2014 Unknown LIPID GROUP 80838 CHOL 177 MG/DL 04/29/2014 Unknown LIPID GROUP 73287 RCHOL/HDL 5.06 RATIO 04/29/2014 Unknow n LIPID GROUP 19627 NON-HDL CH 142 MG/DL 04/29/2014 Unknow n COMPREHENSIVE METABOLIC 78101 AST 18 U/L 2013 Unknown COMPREHENSIVE METABOLIC 33673 ALT 29 IU/L 2013 Unknown COMPREHENSIVE METABOLIC 63044 BUN 19 MG/DL 2013 Unknown COMPREHENSIVE METABOLIC 69211 ALBUMIN 4.0 GM/DL 2013 Unknown COMPREHENSIVE METABOLIC 62386 CHLORIDE 106 MMOL/L 04/29 Unknown COMPREHENSIVE METABOLIC 16992 BILI TOT 0.4 MG/DL 2013 Unknown COMPREHENSIVE METABOLIC 80701 ALK PHOS 51 U/L 2013 Unknown COMPREHENSIVE METABOLIC 65994 SODIUM 138 MMOL/L 04/29 Unknown COMPREHENSIVE METABOLIC 09565 CREATININE 0.87 MG/DL 04/02 Unknown COMPREHENSIVE METABOLIC 00988 CALCIUM 9.4 MG/DL 2013 Unknown COMPREHENSIVE METABOLIC 98190 POTASSIUM 4.5 MMOL/L 04/29 Unknown COMPREHENSIVE METABOLIC 52786 PROT TOT 6.8 GM/DL 2013 Unknown COMPREHENSIVE METABOLIC 26513 Glucose 106 MG/DL 2013 Unknown COMPREHENSIVE METABOLIC 65194 BICARB 24 MMOL/L 2013 Unknown COMPREHENSIVE METABOLIC 30122 ANION GAP 8 MEQ/L 2013 Unknown GFR CALC 1807974 GFR AA >60 ML/MIN 04/29/2014 Unknown GFR CALC 7976934 GFR NON-AA >60 ML/MIN 04/29/2014 Unknown LIPID GROUP 70458 HDL TEST 30 MG/DL 12/18/2013 Unknown LIPID GROUP 12715 TRIG 128 MG/DL 12/18/2013 Unknown LIPID GROUP 10966 TEST LDL 166 MG/DL 12/18/2013 Unknown LIPID GROUP 65929 CHOL 222 MG/DL 12/18/2013 Unknown LIPID GROUP 33473 RCHOL/HDL 7.40 RATIO 12/18/2013 Unknow n GFR CALC 4584592 GFR AA >60 ML/MIN 12/18/2013 Unknown GFR CALC 4164583 GFR NON-AA >60 ML/MIN 12/18/2013 Unknown FREE T4 79465 FREE T4 1.07 NG/DL 12/18/2013 Unknown COMPLETE BLOOD COUNT 5891455 WBC 7.2 10e9/L 12/19/19 14 Unknown COMPLETE BLOOD COUNT 2370501 RBC 4.89 10e12/L 2013 Unknown COMPLETE BLOOD COUNT 2448531 HGB 15.5 g/dL 4 Unknown COMPLETE BLOOD COUNT 9209772 HCT DET 46.6 % 4 Unknown COMPLETE BLOOD COUNT 7309018 MCV 95.3 fL 4 Unknown COMPLETE BLOOD COUNT 0933331 MCH 31.7 pg 4 Unknown COMPLETE BLOOD COUNT 8244983 MCHC 33.3 g/dL 4 Unknown COMPLETE BLOOD COUNT 3247154 PLT 246 10e9/L 12/19/19 14 Unknown COMPLETE BLOOD COUNT 6641731 MPV 11.4 fL 4 Unknown COMPLETE BLOOD COUNT 3927088 GIUSEPPE % 48.6 % 4 Unknown COMPLETE BLOOD COUNT 9637616 LY % 37.4 % 4 Unknown COMPLETE BLOOD COUNT 0500980 MON % 10.5 % 4 Unknown COMPLETE BLOOD COUNT 6593294 EOS % 3.2 % 4 Unknown COMPLETE BLOOD COUNT 8024333 BASO % 0.3 % 4 Unknown COMPLETE BLOOD COUNT 5909064 RDW 13.6 % 4 Unknown COMPLETE BLOOD COUNT 0708121 ABS GIUSEPPE 3.50 10e9/L 014 Unknown COMPLETE BLOOD COUNT 0994491 ABS LYMPH 2.69 10e9/L 014 Unknown COMPLETE BLOOD COUNT 5504964 ABS MONO 0.76 10e9/L 014 Unknown COMPLETE BLOOD COUNT 4722597 ABS EOS 0.23 10e9/L 014 Unknown COMPLETE BLOOD COUNT 4083592 ABS BASO 0.02 10e9/L 014 Unknown COMPLETE BLOOD COUNT 1853355 RDW-SD 46.2 fL 4 Unknown COMPREHENSIVE METABOLIC 36057 AST 38 U/L 2013 Unknown COMPREHENSIVE METABOLIC 01552 ALT 33 IU/L 2013 Unknown COMPREHENSIVE METABOLIC 20965 BUN 15 MG/DL 2013 Unknown COMPREHENSIVE METABOLIC 24818 ALBUMIN 4.2 GM/DL 2013 Unknown COMPREHENSIVE METABOLIC 20517 CHLORIDE 103 MMOL/L 12/18 Unknown COMPREHENSIVE METABOLIC 70990 BILI TOT 0.6 MG/DL 2013 Unknown COMPREHENSIVE METABOLIC 97495 ALK PHOS 45 U/L 2013 Unknown COMPREHENSIVE METABOLIC 73178 SODIUM 136 MMOL/L 12/18 Unknown COMPREHENSIVE METABOLIC 68481 CREATININE 0.97 MG/DL 11/29 Unknown COMPREHENSIVE METABOLIC 86229 CALCIUM 9.2 MG/DL 2013 Unknown COMPREHENSIVE METABOLIC 68786 POTASSIUM 4.2 MMOL/L 12/18 Unknown COMPREHENSIVE METABOLIC 00589 PROT TOT 7.0 GM/DL 2013 Unknown COMPREHENSIVE METABOLIC 31959 Glucose 120 MG/DL 2013 Unknown COMPREHENSIVE METABOLIC 22563 BICARB 24 MMOL/L 2013 Unknown COMPREHENSIVE METABOLIC 92305 ANION GAP 9 MEQ/L 2013 Unknown THYROID STIMULATING HORMONE 23740 TSH 1.305 uIU/ML 12/18/2013 Unknown PSA EQUIMOLAR TROY 72197 PSA EQ 1.71 NG/ML 4 Unknown LIPID GROUP 91568 HDL TEST 29 MG/DL 07/17/2012 Unknown LIPID GROUP 50576 TRIG 155 MG/DL 07/17/2012 Unknown LIPID GROUP 98519 TEST LDL 105 MG/DL 07/17/2012 Unknown LIPID GROUP 24338 CHOL 165 MG/DL 07/17/2012 Unknown LIPID GROUP 26005 RCHOL/HDL 5.69 RATIO 07/17/2012 Unknow n GFR CALC 9688655 GFR AA >60 ML/MIN 07/17/2012 Unknown GFR CALC 9246593 GFR NON-AA >60 ML/MIN 07/17/2012 Unknown COMPREHENSIVE METABOLIC 60720 AST 19 U/L 2011 Unknown COMPREHENSIVE METABOLIC 03830 ALT 25 IU/L 2011 Unknown COMPREHENSIVE METABOLIC 43993 BUN 14 MG/DL 2011 Unknown COMPREHENSIVE METABOLIC 05507 ALBUMIN 4.4 GM/DL 2011 Unknown COMPREHENSIVE METABOLIC 97412 CHLORIDE 103 MMOL/L 07/17 Unknown COMPREHENSIVE METABOLIC 18037 BILI TOT 0.6 MG/DL 2011 Unknown COMPREHENSIVE METABOLIC 73951 ALK PHOS 53 U/L 2011 Unknown COMPREHENSIVE METABOLIC 36159 SODIUM 136 MMOL/L 07/17 Unknown COMPREHENSIVE METABOLIC 52366 CREATININE 0.97 MG/DL 06/30 Unknown COMPREHENSIVE METABOLIC 45199 CALCIUM 9.4 MG/DL 2011 Unknown COMPREHENSIVE METABOLIC 32684 POTASSIUM 4.3 MMOL/L 07/17 Unknown COMPREHENSIVE METABOLIC 88443 PROT TOT 6.9 GM/DL 2011 Unknown COMPREHENSIVE METABOLIC 20227 Glucose 102 MG/DL 2011 Unknown COMPREHENSIVE METABOLIC 14952 BICARB 27 MMOL/L 2011 Unknown COMPREHENSIVE METABOLIC 70260 ANION GAP 6 MEQ/L 2011 Unknown ERYTHROCYTE SEDIMENTATION RATE 51632 ESR 14 MM/HR 03/20/2012 Unknown LIPID GROUP 29100 HDL TEST 31 MG/DL 03/20/2012 Unknown LIPID GROUP 05048 TRIG 210 MG/DL 03/20/2012 Unknown LIPID GROUP 56445 TEST LDL 164 MG/DL 03/20/2012 Unknown LIPID GROUP 55006 CHOL 237 MG/DL 03/20/2012 Unknown LIPID GROUP 96575 RCHOL/HDL 7.65 RATIO 03/20/2012 Unknow n GFR CALC 4552504 GFR AA >60 ML/MIN 03/20/2012 Unknown GFR CALC 8230482 GFR NON-AA >60 ML/MIN 03/20/2012 Unknown C-REACTIVE PROTEIN (CRP) QUANT 37011 CRP 0.9 MG/DL 03/20/2012 Unknown COMPLETE BLOOD COUNT 13654 WBC 9.7 10e9/L 03/20/20 12 Unknown COMPLETE BLOOD COUNT 23031 RBC 5.14 10e12/L 2011 Unknown COMPLETE BLOOD COUNT 98314 HGB 15.5 g/dL 2 Unknown COMPLETE BLOOD COUNT 57349 HCT DET 46.9 % 2 Unknown COMPLETE BLOOD COUNT 33322 MCV 91.2 fL 2 Unknown COMPLETE BLOOD COUNT 24884 MCH 30.2 pg 2 Unknown COMPLETE BLOOD COUNT 54018 MCHC 33.0 g/dL 2 Unknown COMPLETE BLOOD COUNT 88207 PLT 280 10e9/L 03/20/20 12 Unknown COMPLETE BLOOD COUNT 47429 MPV 10.6 fL 2 Unknown COMPLETE BLOOD COUNT 83550 GIUSEPPE % 61.5 % 2 Unknown COMPLETE BLOOD COUNT 94690 LY % 26.5 % 2 Unknown COMPLETE BLOOD COUNT 28186 MON % 8.8 % 2 Unknown COMPLETE BLOOD COUNT 56749 EOS % 3.0 % 2 Unknown COMPLETE BLOOD COUNT 72483 BASO % 0.2 % 2 Unknown COMPLETE BLOOD COUNT 99199 RDW 15.3 % 2 Unknown COMPLETE BLOOD COUNT 77765 ABS GIUSEPPE 5.97 10e9/L 012 Unknown COMPLETE BLOOD COUNT 65027 ABS LYMPH 2.57 10e9/L 012 Unknown COMPLETE BLOOD COUNT 31011 ABS MONO 0.85 10e9/L 012 Unknown COMPLETE BLOOD COUNT 37862 ABS EOS 0.29 10e9/L 012 Unknown COMPLETE BLOOD COUNT 18125 ABS BASO 0.02 10e9/L 012 Unknown COMPLETE BLOOD COUNT 73327 RDW-SD 50.3 fL 2 Unknown COMPREHENSIVE METABOLIC 72361 AST 16 U/L 2011 Unknown COMPREHENSIVE METABOLIC 55742 ALT 21 IU/L 2011 Unknown COMPREHENSIVE METABOLIC 86201 BUN 15 MG/DL 2011 Unknown COMPREHENSIVE METABOLIC 90048 ALBUMIN 4.3 GM/DL 2011 Unknown COMPREHENSIVE METABOLIC 24963 CHLORIDE 102 MMOL/L 03/20 Unknown COMPREHENSIVE METABOLIC 20465 BILI TOT 0.5 MG/DL 2011 Unknown COMPREHENSIVE METABOLIC 81560 ALK PHOS 60 U/L 2011 Unknown COMPREHENSIVE METABOLIC 74089 SODIUM 135 MMOL/L 03/20 Unknown COMPREHENSIVE METABOLIC 19513 CREATININE 0.94 MG/DL 03/01 Unknown COMPREHENSIVE METABOLIC 08786 CALCIUM 9.0 MG/DL 2011 Unknown COMPREHENSIVE METABOLIC 05898 POTASSIUM 4.4 MMOL/L 03/20 Unknown COMPREHENSIVE METABOLIC 20265 PROT TOT 6.7 GM/DL 2011 Unknown COMPREHENSIVE METABOLIC 12317 Glucose 96 MG/DL 2011 Unknown COMPREHENSIVE METABOLIC 36834 BICARB 25 MMOL/L 2011 Unknown COMPREHENSIVE METABOLIC 26965 ANION GAP 8 MEQ/L 2011 [place] [address] PRO TIME 21.6 SEC 03/20/[place] [address] INR MCMC 1.8 03/20/2012 Unknow n Procedures Procedure Codes Date ROUTINE VENIPUNCTURE CPT-4: 33924 06/19/2018 ASSAY OF FREE THYROXINE CPT-4: 64360 06/19/2018 ASSAY THYROID STIM HORMONE CPT-4: 97954 06/19/2018 COMPREHEN METABOLIC PANEL CPT-4: 45420 06/19/2018 COMPLETE CBC W/AUTO DIFF WBC CPT-4: 39836 06/19/2018 LIPID PANEL CPT-4: 50088 06/19/2018 ASSAY OF PSA TOTAL CPT-4: 08801 06/19/2018 VITAMIN D TOTAL (25 HYDROXY) CPT-4: 87086 06/19/2018 VITAMIN B-12 CPT-4: 47267 06/19/2018 DEXAMETHASONE SODIUM PHOS CPT-4: J1100 08/31/2017 TRIAMCINOLONE ACET INJ NOS CPT-4: J3301 08/31/2017 DRAIN/INJECT JOINT/BURSA CPT-4: 03537 08/31/2017 ROUTINE VENIPUNCTURE CPT-4: 56315 08/01/2017 COMPREHEN METABOLIC PANEL CPT-4: 69626 08/01/2017 LIPID PANEL CPT-4: 53539 08/01/2017 DRAIN/INJECT JOINT/BURSA CPT-4: 31096 09/12/2016 TRIAMCINOLONE ACET INJ NOS CPT-4: J3301 09/12/2016 DEXAMETHASONE SODIUM PHOS CPT-4: J1100 09/12/2016 ROUTINE VENIPUNCTURE CPT-4: 66414 09/09/2016 ASSAY OF FREE THYROXINE CPT-4: 48634 09/09/2016 ASSAY THYROID STIM HORMONE CPT-4: 63863 09/09/2016 COMPREHEN METABOLIC PANEL CPT-4: 40121 09/09/2016 COMPLETE CBC W/AUTO DIFF WBC CPT-4: 61750 09/09/2016 LIPID PANEL CPT-4: 20409 09/09/2016 SPECIAL REPORTS OR FORMS CPT-4: 65614 08/05/2016 ROUTINE VENIPUNCTURE CPT-4: 43099 09/15/2015 COMPREHEN METABOLIC PANEL CPT-4: 56966 09/15/2015 LIPID PANEL CPT-4: 65304 09/15/2015 PRESCRIP TRANSMIT VIA ERX SY CPT-4: G8553 08/31/2015 ROUTINE VENIPUNCTURE CPT-4: 35606 04/14/2015 COMPREHEN METABOLIC PANEL CPT-4: 44055 04/14/2015 LIPID PANEL CPT-4: 95971 04/14/2015 ROUTINE VENIPUNCTURE CPT-4: 45182 11/10/2014 ASSAY OF FREE THYROXINE CPT-4: 24505 11/10/2014 ASSAY THYROID STIM HORMONE CPT-4: 27727 11/10/2014 COMPREHEN METABOLIC PANEL CPT-4: 12983 11/10/2014 COMPLETE CBC W/AUTO DIFF WBC CPT-4: 61423 11/10/2014 LIPID PANEL CPT-4: 08044 11/10/2014 ASSAY OF PSA TOTAL CPT-4: 58537 11/10/2014 ROUTINE VENIPUNCTURE CPT-4: 58646 04/29/2014 COMPREHEN METABOLIC PANEL CPT-4: 37187 04/29/2014 LIPID PANEL CPT-4: 84955 04/29/2014 ROUTINE VENIPUNCTURE CPT-4: 54261 12/18/2013 ASSAY OF FREE THYROXINE CPT-4: 24249 12/18/2013 ASSAY THYROID STIM HORMONE CPT-4: 46836 12/18/2013 COMPREHEN METABOLIC PANEL CPT-4: 81125 12/18/2013 COMPLETE CBC W/AUTO DIFF WBC CPT-4: 81664 12/18/2013 LIPID PANEL CPT-4: 10577 12/18/2013 ASSAY OF PSA TOTAL CPT-4: 15249 12/18/2013 ROUTINE VENIPUNCTURE CPT-4: 13304 07/17/2012 COMPREHEN METABOLIC PANEL CPT-4: 87361 07/17/2012 LIPID PANEL CPT-4: 98327 07/17/2012 ROUTINE VENIPUNCTURE CPT-4: 97862 03/20/2012 COMPLETE CBC W/AUTO DIFF WBC CPT-4: 76357 03/20/2012 RBC SED RATE AUTOMATED CPT-4: 70469 03/20/2012 C-REACTIVE PROTEIN CPT-4: 22122 03/20/2012 COMPREHEN METABOLIC PANEL CPT-4: 78517 03/20/2012 LIPID PANEL CPT-4: 03981 03/20/2012 PROTHROMBIN TIME CPT-4: 97468 03/20/2012 Vital Signs Date Vital 10/07/2019 Blood Pressure 1: 142/83 Code: 8480-6 BMI: 31.3 Code: 63916-1 Heart Rate 1: 80 bpm Height: 6'2" Respiratory Rate: 17 bpm SpO2: 99% Tempera ture: 36.7 (C) / 98.1 (F) Weight: 244 lbs 07/01/2019 Blood Pressure 1: 114/80 Code: 8480-6 BMI: 30.4 Code: 08464-5 Heart Rate 1: 72 bpm Height: 6'2" [...] 1: 126/82 Code: 8480-6 BMI: 31.2 Code: 23395-0 Heart Rate 1: 84 bpm Height: 6'2" Respiratory Rate: 20 bpm SpO2: 94% Tempera ture: 37.0 (C) / 98.6 (F) Weight: 243 lbs 03/02/2018 Blood Pressure 1: 122/80 Code: 8480-6 BMI: 30.8 Code: 76711-3 Heart Rate 1: 74 bpm Height: 6'2" Respiratory Rate: 20 bpm SpO2: 95% Tempera ture: 37.1 (C) / 98.8 (F) Weight: 240 lbs 08/31/2017 Blood Pressure 1: 136/90 Code: 8480-6 Heart Rate 1: 76 bpm Respiratory Rate: 20 bpm Temperature: 36.7 (C) / 98.0 (F) Weight: 247 lbs 07/18/2017 Blood Pressure 1: 126/78 Code: 8480-6 BMI: 31.3 Code: 21944-3 Heart Rate 1: 72 bpm Height: 6'2" Respiratory Rate: 20 bpm SpO2: 94% Tempera ture: 37.0 (C) / 98.6 (F) Weight: 244 lbs 04/24/2017 Blood Pressure 1: 152/92 Code: 8480-6 BMI: 31.1 Code: 55635-4 Heart Rate 1: 74 bpm Height: 6'2" Respiratory Rate: 18 bpm SpO2: 98% Tempera ture: 35.9 (C) / 96.6 (F) Weight: 242 lbs 01/04/2017 Blood Pressure 1: 122/70 Code: 8480-6 BMI: 30.4 Code: 84948-2 Heart Rate 1: 88 bpm Height: 6'2" Respiratory Rate: 20 bpm SpO2: 96% Tempera ture: 36.6 (C) / 97.8 (F) Weight: 237 lbs 09/12/2016 Blood Pressure 1: 136/78 Code: 8480-6 Heart Rate 1: 82 bpm Respiratory Rate: 22 bpm SpO2: 94% Temperature: 36.4 (C) / 97.6 (F) We ight: 234 lbs 09/07/2016 Blood Pressure 1: 122/70 Code: 8480-6 BMI: 30.0 Code: 51416-0 Heart Rate 1: 88 bpm Height: 6'2" Respiratory Rate: 20 bpm SpO2: 94% Tempera ture: 36.6 (C) / 97.9 (F) Weight: 234 lbs 08/31/2015 Blood Pressure 1: 142/94 Code: 8480-6 BMI: 28.9 Code: 10505-5 Heart Rate 1: 92 bpm Height: 6'2" Respiratory Rate: 20 bpm Temperature: 36 .9 (C) / 98.5 (F) Weight: 225 lbs 04/14/2015 Blood Pressure 1: 126/80 Code: 8480-6 BMI: 28.0 Code: 95140-1 Heart Rate 1: 76 bpm Height: 6'2" Respiratory Rate: 20 bpm Temperature: 36 .6 (C) / 97.8 (F) Weight: 218 lbs 10/07/2014 Blood Pressure 1: 128/76 Code: 8480-6 BMI: 28.6 Code: 71563-4 Heart Rate 1: 84 bpm Height: 6'2" Respiratory Rate: 22 bpm Temperature: 36 .6 (C) / 97.9 (F) Weight: 223 lbs 05/01/2014 Blood Pressure 1: 126/68 Code: 8480-6 BMI: 28.2 Code: 64993-3 Heart Rate 1: 84 bpm Height: 6'2" Respiratory Rate: 20 bpm Temperature: 36 .8 (C) / 98.3 (F) Weight: 220 lbs 12/17/2013 Blood Pressure 1: 136/82 Code: 8480-6 BMI: 29.6 Code: 56181-6 Heart Rate 1: 76 bpm Height: 6'1" Respiratory Rate: 20 bpm Temperature: 36 .8 (C) / 98.2 (F) Weight: 224 lbs 12/11/2012 Blood Pressure 1: 122/86 Code: 8480-6 BMI: 30.5 Code: 09069-0 Heart Rate 1: 76 bpm Height: 6'1" Respiratory Rate: 20 bpm SpO2: 93% Tempera ture: 36.8 (C) / 98.2 (F) Weight: 231 lbs 12/04/2012 Blood Pressure 1: 124/86 Code: 8480-6 BMI: 30.5 Code: 57165-2 Heart Rate 1: 68 bpm Height: 6'1" Respiratory Rate: 20 bpm SpO2: 95% Tempera ture: 36.6 (C) / 97.8 (F) Weight: 231 lbs 08/14/2012 Blood Pressure 1: 126/70 Code: 8480-6 BMI: 29.4 Code: 83876-2 Heart Rate 1: 80 bpm Height: 6'1" Respiratory Rate: 20 bpm Temperature: 36 .8 (C) / 98.3 (F) Weight: 223 lbs 07/17/2012 Blood Pressure 1: 124/82 Code: 8480-6 BMI: 29.7 Code: 49414-7 Heart Rate 1: 80 bpm Height: 6'1" Respiratory Rate: 20 bpm Temperature: 36 .8 (C) / 98.2 (F) Weight: 225 lbs 03/20/2012 Blood Pressure 1: 124/78 Code: 8480-6 BMI: 29.3 Code: 33941-2 Heart Rate 1: 72 bpm Height: 6'1" Respiratory Rate: 20 bpm Temperature: 36 .6 (C) / 97.8 (F) Weight: 222 lbs 12/08/2011 Blood Pressure 1: 112/64 Code: 8480-6 BMI: 28.2 Code: 27666-7 Heart Rate 1: 78 bpm Height: 6'1" Temperature: 36.3 (C) / 97.4 (F) Weight: 214 lbs 08/11/2011 Blood Pressure 1: 128/70 Code: 8480-6 BMI: 27.6 Code: 58021-2 Heart Rate 1: 76 bpm Height: 6'1" [...] it Encounters Encounter Performer Location Codes Date ([id number]) OFFICE/OUTPATIENT VISIT EST Diagnosis: COPD (chronic obstructive pulmonary disease)[ICD10: J44.9] Diagnosis: Mixed hyperlipidemia[ICD10: E78.2] Diagnosis: Coronary artery disease[ICD10: I25.10] Diagnosis: 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: G57.92] Martita Black [employer] CPT-4: 53354 10/07/2019 ([id number]) OFFICE/OUTPATIENT VISIT EST Diagnosis: Cephalgia[ICD10: R51] Diagnosis: Family history of brain aneurysm[ICD10: Z82.49] Diagnosis: Other intervertebral disc degeneration, 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] Martita SIMONS [employer] CPT-4: 57094 07/01/2019 ([id number]) OFFICE/OUTPATIENT VISIT EST Diagnosis: 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] Diagnosis: Bilateral primary osteoarthritis of knee[ICD10: M17.0] Diagnosis: Nicotine dependence, unspecified, uncomplicated[ICD10: F17.200] Diagnosis: Mixed hyperlipidemia[ICD10: E78.2] Martita RENTERIA [employer] CPT-4: 36286 03/27/2019 ([id number]) OFFICE/OUTPATIENT VISIT EST Diagnosis: Mixed hyperlipidemia[ICD10: E78.2] Diagnosis: 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] Diagnosis: Other intervertebral disc degeneration, 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] Martita MCGOVERN Sofia [employer] CPT-4: 70497 12/25/2018 ([id number]) OFFICE/OUTPATIENT VISIT EST Diagnosis: Mixed hyperlipidemia[ICD10: E78.2] Diagnosis: Other fatigue[ICD10: R53.83] Diagnosis: Encounter for screening for malignant neoplasm of prostate[ICD10: Z12.5] Diagnosis: Primary osteoarthritis, 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] Diagnosis: Pain in thoracic spine[ICD10: M54.6] Martita FISCHER [employer] CPT-4: 33600 06/19/2018 ([id number]) OFFICE/OUTPATIENT VISIT EST Diagnosis: Encounter for therapeutic drug level monitoring[ICD10: Z51.81] Diagnosis: Pain in 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: M25.531] Diagnosis: Pain in right knee[ICD10: M25.561] Diagnosis: Pain in left knee[ICD10: M25.562] Marian Lam [employer] CPT-4: 92334 03/02/2018 ([id number]) OFFICE/OUTPATIENT VISIT EST Diagnosis: Mixed hyperlipidemia[ICD10: E78.2] Martita RENTERIA [employer] CPT-4: 16085 08/01/2017 ([id number]) OFFICE/OUTPATIENT VISIT EST Diagnosis: Other spondylosis with radiculopathy, cervical region[ICD10: M47.22] Diagnosis: Pain in 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: M25.531] Diagnosis: Mixed hyperlipidemia[ICD10: E78.2] Diagnosis: 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] Martita SIMONS [employer] [facility] CPT-4: 9921 3 07/18/2017 ([id number]) OFFICE/OUTPATIENT VISIT EST Diagnosis: Other intervertebral disc degeneration, 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] Diagnosis: Cervicalgia[ICD10: M54.2] Martita YOUNG [employer] [facility] CPT-4: 10232 04/24/2017 ([id number]) OFFICE/OUTPATIENT VISIT EST Diagnosis: Cervicalgia[ICD10: M54.2] Diagnosis: Other intervertebral disc degeneration, 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] Diagnosis: Mixed hyperlipidemia[ICD10: E78.2] Martita José Migueljessieodilon ALEMFAYE SOMERS [employer] [facility] CPT-4: 81575 01/04/2017 ([id number]) OFFICE/OUTPATIENT VISIT EST Diagnosis: Mixed hyperlipidemia[ICD10: E78.2] Diagnosis: Encounter for general adult medical examination with abnormal findings[ICD10: Z00.01] Martita SIMONS [employer] [facility] CPT-4: 14218 09/09/2016 ([id number]) PREV VISIT EST AGE 40-64 Diagnosis: Mixed hyperlipidemia[ICD10: E78.2] Diagnosis: Nicotine dependence, unspecified, uncomplicated[ICD10: F17.200] Diagnosis: Chronic obstructive pulmonary disease with acute lower respiratory infection[ICD10: J44.0] Diagnosis: Bilateral primary osteoarthritis of knee[ICD10: M17.0] Diagnosis: Pain in thoracic spine[ICD10: M54.6] Diagnosis: Pain in 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: M25.531] Diagnosis: Encounter for general adult medical examination with abnormal findings[ICD10: Z00.01] Martita Kristyn SIMONS [employer] CPT-4: 41043 09/07/2016 ([id number]) OFFICE/OUTPATIENT VISIT EST Diagnosis: Mixed hyperlipidemia[ICD10: E78.2] Martita RENTERIA Sofia SIMONS DO [facility] CPT-4: 01173 09/15/2015 ([id number]) OFFICE/OUTPATIENT VISIT EST Diagnosis: Acute bronchitis, unspecified[ICD10: J20.9] Diagnosis: Chronic obstructive pulmonary disease with acute lower respiratory infection[ICD10: J44.0] Diagnosis: Lumbago with sciatica, right side[ICD10: M54.41] Martita José Miguelfelix MARTITA Sofia SIMONS DO [facility] CPT-4: 53883 08/31/2015 ([id number]) OFFICE/OUTPATIENT VISIT EST Diagnosis: HYPERLIPIDEMIA NEC/NOS[ICD9: 272.4] Diagnosis: TOBACCO USE DISORDER[ICD9: 305.1] Diagnosis: Osteoarthritis, knee[ICD9: 715.96] Diagnosis: Chronic back pain[ICD9: 724.5] Martita FERRARALINE Rui SIMONS DO [facility] CPT-4: 21753 04/14/2015 ([id number]) OFFICE/OUTPATIENT VISIT EST Diagnosis: HYPERLIPIDEMIA NEC/NOS[ICD9: 272.4] Diagnosis: COPD[ICD9: 496] Diagnosis: ROUTINE MEDICAL EXAM[ICD9: V70.0] Martita SLAUGHTERQUELIN Genaro SIMONS DO [facility] CPT-4: 52146 11/10/2014 ([id number]) OFFICE/OUTPATIENT VISIT EST Diagnosis: Wrist pain[ICD9: 719.43] Diagnosis: Knee osteoarthritis[ICD9: 715.96] Diagnosis: Chronic back pain[ICD9: 724.5] Martita José Migueljessieodilon FERRARAMARTITA Rui SIMONS DO [facility] CPT-4: 97436 10/07/2014 ([id number]) OFFICE/OUTPATIENT VISIT EST Diagnosis: HYPERLIPIDEMIA NEC/NOS[ICD9: 272.4] Diagnosis: Chronic back pain[ICD9: 724.5] Diagnosis: OSTEOARTH NOS-L/LEG[ICD9: 715.96] Martita Lam Sofia SIMONS DO [facility] CPT-4: 66031 05/01/2014 ([id number]) OFFICE/OUTPATIENT VISIT EST Diagnosis: HYPERLIPIDEMIA NEC/NOS[ICD9: 272.4] Martita MOROCHO Sofia SIMONS [employer] [facility] CPT-4: 63335 04/29/2014 ([id number]) OFFICE/OUTPATIENT VISIT EST Diagnosis: ROUTINE MEDICAL EXAM[ICD9: V70.0] Diagnosis: HYPERLIPIDEMIA NEC/NOS[ICD9: 272.4] Martita SIMONS DO [facility] CPT-4: 10544 12/18/2013 OFFICE/OUTPATIENT VISIT EST Diagnosis: HYPERLIPIDEMIA NEC/NOS[ICD9: 272.4] Diagnosis: COPD[ICD9: 496] Diagnosis: Knee pain[ICD9: 719.46] Diagnosis: Wrist pain[ICD9: 719.43] Martita ROMERO [facility] CPT-4: 38421 12/17/2013 OFFICE/OUTPATIENT VISIT EST Diagnosis: COPD W/ ACUTE EXACERB[ICD9: 491.21] Diagnosis: COUGH[ICD9: 786.2] Martita SIMONS [employer] [facility] CPT-4: 02988 12/11/2012 ([id number]) OFFICE/OUTPATIENT VISIT EST Diagnosis: BRONCHITIS, ACUTE[ICD9: 466.0] Diagnosis: COPD exacerbation[ICD9: 491.21] Martita SIMONS [employer] [facility] CPT-4: 65573 12/04/2012 ([id number]) OFFICE/OUTPATIENT VISIT EST Diagnosis: DERMATITIS NOS[ICD9: 692.9] Diagnosis: TOBACCO USE DISORDER[ICD9: 305.1] Martita SOMERS [employer] [facility] CPT-4: 22190 08/14/2012 ([id number]) OFFICE/OUTPATIENT VISIT EST Diagnosis: TOBACCO USE DISORDER[ICD9: 305.1] Diagnosis: PAIN, LOWER BACK[ICD9: 724.2] Diagnosis: PAIN IN THORACIC SPINE[ICD9: 724.1] Diagnosis: DERMATITIS NOS[ICD9: 692.9] Diagnosis: HYPERLIPIDEMIA NEC/NOS[ICD9: 272.4] Martita SIMONS [employer] [facility] CPT-4: 73226 07/17/2012 ([id number]) OFFICE/OUTPATIENT VISIT EST Diagnosis: HYPERLIPIDEMIA NEC/NOS[ICD9: 272.4] Diagnosis: OSTEOARTH NOS-L/LEG[ICD9: 715.96] Diagnosis: JOINT PAIN-L/LEG[ICD9: 719.46] Diagnosis: AC EMBL SUPRFCL UP EXT[ICD9: 453.81] Martita FISCHER [employer] [facility] CPT-4: 21075 03/20/2012 ([id number]) OFFICE/OUTPATIENT VISIT EST Diagnosis: PAIN, LOWER BACK[ICD9: 724.2] Diagnosis: Superficial venous thrombosis of arm[ICD9: 453.81] Diagnosis: Trigger finger, left[ICD9: 727.03] Martita RENTERIA [employer]ia [employer] CPT-4: 31941 12/08/2011 OFFICE/OUTPATIENT VISIT EST Diagnosis: Knee pain[ICD9: 719.46] Diagnosis: Knee osteoarthritis[ICD9: 715.96] Diagnosis: Thoracic back pain[ICD9: 724.1] Diagnosis: HYPERLIPIDEMIA NEC/NOS[ICD9: 272.4] Martita MOROCHO SSohail [facility] CPT-4: 37852 08/11/2011 ([id number]) OFFICE/OUTPATIENT VISIT, NEW Martita Simons KASANDRA KURTIS [employer] CPT-4: 88559 05/26/2010 Plan of Care Planned Activity Notes Codes Status Date Visit Diagnosis Plan: COPD (chronic obstructive pulmon jenn disease) Discussion: Smoking Cessation ICD-9 : 496 ICD-10 : J44.9 10/07/2019 Visit Diagnosis Plan: Mixed hyperlipidemia Discussion: Lipids next month with cardiology fwup Follow Up: 3 months ICD-9 : 272.4 ICD-10 : E78.2 10/07/2019 Visit Diagnosis Plan: Other intervertebral disc degene ration, lumbar region Discussion: Stable on hydrocodone Add Vitamin D3 2000u daily Follow Up: 3 months ICD-9 : 722.52 ICD-10 : M51.36 07/01/2019 Visit Diagnosis Plan: Cephalgia Discussion: Discussed CT angiogram to rule out aneurysm but patient defers due to cost ICD-9 : 784.0 ICD-10 : R51 07/01/2019 Appointment: Martita Simons [facility]Ptel[facility] [phone] [facility] [id number] MEDICATION REVIEW 07/01/2019 Visit Diagnosis Plan: Atherosclerotic he art disease of [place] coronary artery without angina pectoris Discussion: Discussed [...] : E78.2 03/27/2019 Appointment: Martita Simons WPtel: [address] [place] [address] MEDICATION REVIEW 03/27/2019 Visit Diagnosis Plan: Other intervertebral disc degene ration, lumbar region Discussion: Stable on hydrocodone UDS done Follow Up: 3 months ICD-9 : 722.52 ICD-10 : M51.36 12/25/2018 Visit Diagnosis Plan: Atherosclerotic he art disease of [place] coronary artery without angina pectoris Discussion: Smoking Cessation Continue c urrent meds and fwup with cardiology ICD-9 : 414.00 ICD-10 : I25.10 12/25/2018 Appointment: Martita Simons WPtel: [address] [place], [place] [address] MEDICATION REVIEW 12/25/2018 Appointment: Martita Simons WPtel: [address] [place], [place] [phone] OFFICE SURGERY 08/22/2018 Visit Diagnosis Plan: Pain [...] : M19.031 06/19/2018 Appointment: Martita Simons WPtel: [address] [place] [address] MEDICATION REVIEW 06/19/2018 Appointment: Martita Simons WPtel: [address] [place], [place] [phone] [place] CANCELED 06/05/2018 Appointment: Martita Simons WPtel: [address] [place] [address] [place] CANCELED 05/08/2018 Visit Diagnosis Plan: Pain [...] ICD-10 : M25.561 03/02/2018 Appointment: Marian Juares [address] [place] [address] MEDICATION REVIEW 03/02/2018 Patient Education: Patient Medication Summary Completed 03/02/2018 Appointment: Martita Simons WPtel: [address] [place], [place] [phone] [place] UA 02/01/2018 Patient Education: Patient Medication Summary Completed 02/01/2018 Visit Diagnosis Plan: Other synovitis and tenosynoviti s, right hand Discussion: Right wrist cleansed with alcohol and betadine and injected laterally with 1cc 1% lidocaine with 20mg kenalog and 2mg dexamethasone, tolerated well with no complications, neosporin and bandage applied ICD-9 : 727.05 ICD-10 : M65.841 08/31/2017 Appointment: Martita Simons WPtel: [address] [place], [place] [phone] ACUTE ILLNESS 08/31/2017 Patient Education: Patient Medication Summary Completed 08/31/2017 Appointment: Martita Simons WPtel: [address] [place], [place] [phone] [place] LAB 08/01/2017 Patient Education: Patient Medication Summary [...] : M47.22 07/18/2017 Appointment: Martita Simons WPtel: [address] [place], [place] [phone] MEDICATION REVIEW 07/18/2017 Patient Education: Patient Medication Summary Completed 07/18/2017 Visit Diagnosis Plan: Cervicalgia Discussion: Continue PT then fwup after done with PT ICD-9 : 723.1 ICD-10 : M54.2 04/24/2017 Visit Diagnosis Plan: Other intervertebral disc degene ration, lumbar region Discussion: Add PT For lumbar spine ICD-9 : 722.52 ICD-10 : M51.36 04/24/2017 Appointment: Martita Simons WPtel: [address] [place], [place] [phone] [place] MEDICATION REVIEW 04/24/2017 Patient Education: Patient Medication Summary Completed 04/24/2017 Patient Education: Patient Medication Summary Completed 03/22/2017 Care Plan: MRI NECK SPINE W/O DYE LOINC : 81618-7 Pending 03/22/2017 Visit Diagnosis Plan: Mixed hyperlipidemia [...] 722.52 ICD-10 : M51.36 01/04/2017 Appointment: Martita Simosn WPtel: [address] [place], [place] [phone] [place] 01/03 lm`sl 01/03-Confirmed MEDICATION REVIEW 01/04/2017 Patient Education: Patient Medication Summary Completed 01/04/2017 Visit Diagnosis Plan: Other enthesopathies, not elsewh ere classified Discussion: Right wrist injection as above ICD-9 : 727.05 ICD-10 : M77.8 09/12/2016 Visit Diagnosis Plan: Mixed hyperlipidemia Discussion: Lab discussed Restart lipitor/lifestyle change ICD-9 : 272.4 ICD-10 : E78.2 09/12/2016 Appointment: Martita Simons WPtel: [address] [place], [place] [id number] [place] 09/12 confirmed `sl INJECTION 09/12/2016 Patient Education: Patient Medication Summary Completed 09/12/2016 Appointment: Martita Simons WPtel: [address] [place], [place] [id number] [place] LAB 09/09/2016 Patient Education: Patient Medication Summary Completed 09/09/2016 Visit Diagnosis Plan: Nicotine dependence, unspecified , uncomplicated Discussion: Tobacco Abuse ICD-9 : 305.1 ICD-10 : F17.200 09/07/2016 Visit Diagnosis Plan: Chronic obstructiv e pulmonary disease with acute lower respiratory infection Discussion: Smoking Cessation Symbicort Check CXR ICD-9 : 496 ICD-10 : J44.0 09/07/2016 Visit Diagnosis Plan: Encounter for [facility] adult medical examination with abnormal findings Discussion: Update fasting lab Follow Up: 4 months ICD-9 : V70.0 ICD-10 : Z00.01 09/07/2016 Visit Diagnosis Plan: Mixed hyperlipidemia Discussion: Check CMP, Lipids ICD-9 : 272.4 ICD-10 : E78.2 09/07/2016 Visit Diagnosis Plan: Pain in right wrist Discussion: Will return for wrist injection ICD-9 : 719.43 ICD-10 : M25.531 09/07/2016 Appointment: Martita Simons WPtel: [address] [place], [place] [phone] 09/06 confirmed~ Annual Well Visit 09/07/2016 Patient Education: Patient Medication Summary Completed 09/07/2016 Care Plan: CHEST X-RAY 2VW FRONTAL&LATL LOINC : 90584-1 Pending 09/07/2016 Visit Plan[facility] Paperwork 08/05/2016 Patient Education: Patient Medication Summary Completed 08/05/2016 Appointment: Martita Simons WPtel: [address] [place], [place] [phone] [place] UA 04/25/2016 Patient Education: Patient Medication Summary Completed 04/25/2016 Appointment: Martita Simons WPtel: [facility] [place] LAB 09/15/2015 Patient Education: Patient Medication Summary Completed 09/15/2015 Visit Plan: SVN with Albuterol 0.083% Q4 hrs and Q2hrs prn. Supportive care. Rest, Fluids, Tylenol/Motrin prn fever or bodyaches. Notify if worsening symptoms. Daily back stretches, moist heat, Biofreeze prn Flexeril/Prednisone Notify if low back pain persists--will need x-rays Patient seeing Chiropracter [employer] 08/31/2015 Appointment: Martita Simons WPtel: [address] [place], [place] [id number] 08/28/15 vm cn 08/28/15 appt confirmed cn FOLLOW UP 08/31/2015 Patient Education: Patient Medication Summary Completed 08/31/2015 Appointment: Martita Simonstel: [address] [place], [place] [phone] UA 07/29/2015 Visit Plan: CMP, Lipids today Patient st opped chol meds 1week ago Continue hydrocodone 04/14/2015 Appointment: Martita Simons WPtel: [address] [place], [place] [phone] FOLLOW UP 04/14/2015 Patient Education: Patient Medication Summary Completed 04/14/2015 Appointment: Martita Simons WPtel: [address] [place], [place] [phone] LAB 11/10/2014 Patient Education: Patient Medication Summary Completed 11/10/2014 Visit Plan: Fasting lab at end september for Lipids/LFTs Continue hydrocodone at current dose Needs to be on low dose asprin 81mg daily With upcoming trip need to stop every 2hours and get out and stretch 10/07/2014 Appointment: Martita Simons WPtel: [address] [place], [place] [phone] FOLLOW UP 10/07/2014 Patient Education: Patient Medication Summary Completed 10/07/2014 Visit Plan: Lab discussed Will keep meds the same Keep hydrocodone at current dose--discussed schedule change on May 05 05/01/2014 Appointment: Martita Simons WPtel: [address] [place], [place] [phone] 04/29 confirmed when in for labs; asked if he still wanted a reminder call on Monday and he said no he would be here. FOLLOW UP 05/01/2014 Patient Education: Patient Medication Summary Completed 05/01/2014 Appointment: Martita Simons WPtel: [address] [place], [place] [phone] LAB 04/29/2014 Patient Education: Patient Medication Summary Completed 04/29/2014 Appointment: Martita Simons WPtel: [address] [place], [place] [phone] LAB 12/18/2013 Patient Education: Patient Medication Summary Completed 12/18/2013 Appointment: Martita Simons WPtel: [address] [place], [place] [phone] 12/16 FOLLOW UP 12/17/2013 Patient Education: Patient Medication Summary Completed 12/17/2013 Visit Plan: Check CXR Start SVNs with al buterol 0.083% QID 12/11/2012 Appointment: Martita Simons WPtel: [address] [place] [address] FOLLOW UP 12/11/2012 Patient Education: Patient Medication Summary Completed 12/11/2012 Visit Plan: Zithromax for 1wk Prednisone for 1wk Symbicort 160/4.5 2p BID 12/04/2012 Appointment: Martita Simons WPtel: [address] [place] [address] ACUTE ILLNESS 12/04/2012 Patient Education: Patient Medication Summary Completed 12/04/2012 Visit Plan: Continue nystatin/TAC cream and add Lamisil for next month No lipitor for next month If rash persists then will need biopsy Trial of chantix--warned of suicidal ideation/depression Call in 1mo on finger lesion and chantix 08/14/2012 Appointment: Martita Simons WPtel: [address] [place], [place] [phone] 08/13 no answer...08/13 pt called back and confirmed OFFICE SURGERY 08/14/2012 Patient Education: Patient Medication Summary Completed 08/14/2012 Appointment: Martita Simons WPtel: [address] [place], [place] [phone] FOLLOW UP 07/17/2012 Patient Education: Patient Medication Summary Completed 07/17/2012 Appointment: Martita Simons WPtel: [address] [place] [address] Appointment was confirmed by CN on 06/29 12/5 pt called, in family, was in [place] just got yash k 07/03 - [facility] ACUTE ILLNESS 07/02/2012 Visit Plan: Obtain US results of KELVIN PINEDA coumadin as has been 3mos and start Aspirin 325mg daily Check CMP, Lipids, CBC, ESR, CRP today 03/20/2012 Appointment: Martita Simons WPtel: [address] [place], [place] [phone] FOLLOW UP 03/20/2012 Patient Education: Patient Medication Summary Completed 03/20/2012 Appointment: Martita Simons WPtel: [address] [place] [address] [place] Patient called 2 hours past appt. Said saw a specialist today and specialist is not concerned about blod clot so doesnt want to reschedule-CN FOLLOW UP 12/14/2011 Appointment: Martita Simons WPtel: [address] [place], [place] [phone] FOLLOW UP 12/13/2011 Visit Plan: Continue coumadin--IM is fol lowing level--discussed will likely need 6-12wks Observe contusion to right lower back Fwup with ortho as scheduled 12/08/2011 Appointment: Martita Simons WPtel: [address] [place], [place] [phone] ACUTE ILLNESS 12/08/2011 Patient Education: Patient Medication Summary Completed 12/08/2011 Visit Plan: Check fasting lab when goes for pre-op lab including CMP, CBC, Lipids, TSH, Free T4, PSA, uric acid Needs colonoscopy Hydrocodone refilled #80 to [facility] 08/11/2011 Appointment: Martita Simons WPtel: [address] [place], [place] [phone] ESTABLISHED PATIENT 08/11/2011 Patient Education: Patient Medication Summary Completed 08/11/2011 Visit Plan: Obtain most recent lab resul ts Cont current meds Explained that cannot refill pain meds without current rx Discussed Synvisc injections and see ortho as oxycontin for knee arthritis is strong pain med 05/26/2010 Appointment: Martita Simons WPtel: [phone] [id number] NEW PATIENT 05/26/2010 Patient Education: Patient Medication Summary Completed 05/26/2010 Instructions Comment . Filled out [employer] Paperwork . SVN with Albuterol 0.083% Q4hrs [...]
--- OUTSIDE RECORDS SUMMARY | 2020-01-12 17:41 | XMS REPORT | CCD ---
Author Author Syd Simons D.O. Organization [facility] Address [address] [place] [address] Phone Care Team Providers Care Software Support Analyst Name Role Phone Martita Simons D.O., PP Unavailable CCM Unavailable Summary Purpose Interface Exchange Insurance Providers Payer name Policy type / Coverage type Covered constitution party ID Effective Begin Date Effective End Date [facility] Commercial Insurance [id number] Unknown Family history Brother Diagnosis Age At Onset No Family Disease Entered N/A Father Diagnosis Age At Onset No Family Disease Entered N/A Mother Diagnosis Age At Onset No Family Disease Entered N/A Social History Social History Element Codes Description Effective Dates Tobacco history SNOMED CT: 58444124 Current every day smoker 06/2012 Number of [...] hydrocodone 10 mg-acetaminophen 325 mg tablet RxNorm: 048174 1 Tablet(s) PO Q6H as needed for pain 09/26/2019 No Stop Date Active (Response to an electronic controlled substance refill request - RxReferenceNumber: [id number]|1|0|1) hydrocodone 10 mg-acetaminophen 325 mg tablet RxNorm: 566177 1 Tablet(s) PO Q6H as needed for pain 08/26/2019 09/25/2019 Inactive (Response to an electronic controlled substance refill request - RxReferenceNumber: [id number]|1|0|1) hydrocodone 10 mg-acetaminophen 325 mg tablet RxNorm: 670606 1 Tablet(s) PO Q6H as needed for pain 07/25/2019 08/25/2019 Inactive (Response to an electronic controlled substance refill request - RxReferenceNumber: [id number]|1|0|1) hydrocodone 10 mg-acetaminophen 325 mg tablet RxNorm: 897889 1 Tablet(s) PO Q6H as needed for pain 06/26/2019 07/24/2019 Inactive (Response to an electronic controlled substance refill request - RxReferenceNumber: [id number]|1|0|1) hydrocodone 10 mg-acetaminophen 325 mg tablet RxNorm: 198603 1 Tablet(s) PO Q6H as needed for pain 05/28/2019 06/25/2019 Inactive (Response to an electronic controlled substance refill request - RxReferenceNumber: [id number]|1|0|1) hydrocodone 10 mg-acetaminophen 325 mg tablet RxNorm: 492413 1 Tablet(s) PO Q6H as needed for pain 02/25/2019 05/27/2019 Inactive (Response to an electronic controlled substance refill request - RxReferenceNumber: [id number]|1|0|1) hydrocodone 10 mg-acetaminophen 325 mg tablet RxNorm: 147619 1 Tablet(s) PO Q6H as needed for pain 11/26/2018 02/24/2019 Inactive (Response to an electronic controlled substance refill request - RxReferenceNumber: [id number]|1|0|1) hydrocodone 10 mg-acetaminophen 325 mg tablet RxNorm: 914604 1 Tablet(s) PO Q6H as needed for pain 10/30/2018 11/25/2018 Inactive (Response to an electronic controlled substance refill request - RxReferenceNumber: [id number]|1|0|1) hydrocodone 10 mg-acetaminophen 325 mg tablet RxNorm: 500085 1 Tablet(s) PO Q6H as needed for pain 09/26/2018 10/29/2018 Inactive (Response to an electronic controlled substance refill request - RxReferenceNumber: [id number]|1|0|1) hydrocodone 10 mg-acetaminophen 325 mg tablet RxNorm: 485892 1 Tablet(s) PO Q6H as needed for pain 08/30/2018 09/25/2018 Inactive (Response to an electronic controlled substance refill request - RxReferenceNumber: [id number]|1|0|1) hydrocodone 10 mg-acetaminophen 325 mg tablet RxNorm: 520457 1 Tablet(s) PO Q6H as needed for pain 08/01/2018 08/29/2018 Inactive (Response to an electronic controlled substance refill request - RxReferenceNumber: [id number]|1|0|1) hydrocodone 10 mg-acetaminophen 325 mg tablet RxNorm: 434207 1 Tablet(s) PO Q6H as needed for pain 07/04/2018 07/31/2018 Inactive (Response to an electronic controlled substance refill request - RxReferenceNumber: [id number]|1|0|1) hydrocodone 10 mg-acetaminophen 325 mg tablet RxNorm: 260977 1 Tablet(s) PO Q6H as needed for pain 05/31/2018 07/03/2018 Inactive (Response to an electronic controlled substance refill request - RxReferenceNumber: [id number]|1|0|1) hydrocodone 10 mg-acetaminophen 325 mg tablet RxNorm: 662237 1 Tablet(s) PO Q6H as needed for pain 05/01/2018 05/30/2018 Inactive (Response to an electronic controlled substance refill request - RxReferenceNumber: [id number]|1|0|1) hydrocodone 10 mg-acetaminophen 325 mg tablet RxNorm: 021551 1 Tablet(s) PO Q6H as needed for pain 04/03/2018 04/30/2018 Inactive (Response to an electronic controlled substance refill request - RxReferenceNumber: [id number]|1|0|1) hydrocodone 10 mg-acetaminophen 325 mg tablet RxNorm: 216766 1 Tablet(s) PO Q6H as needed for pain 02/26/2018 04/02/2018 Inactive (Response to an electronic controlled substance refill request - RxReferenceNumber: [id number]|1|0|1) clotrimazole-betamethasone 1 %-0.05 % topical cream RxNorm: 021979 TOP As Directed CALL IF NO IMPROVEMENT IN 2 WEEKS 01/30/2018 01/29/2018 Inact kole [SAVINGS FOR UNINSURED PATIENTS -- BIN:[id number], PCN: [id number], Group: [id number], ID# [id number], Process claim through [employer], for questions: . THIS IS NOT INSURANCE.] hydrocodone 10 mg-acetaminophen 325 mg tablet RxNorm: 537355 1 Tablet(s) PO Q6H as needed for pain 01/29/2018 02/25/2018 Inactive (Response to an electronic controlled substance refill request - RxReferenceNumber: [id number]|1|0|1) hydrocodone 10 mg-acetaminophen 325 mg tablet RxNorm: 594411 1 Tablet(s) PO Q6H as needed for pain 12/28/2017 01/28/2018 Inactive (Response to an electronic controlled substance refill request - RxReferenceNumber: [id number]|1|0|1) hydrocodone 10 mg-acetaminophen 325 mg tablet RxNorm: 473045 1 Tablet(s) PO Q6H as needed for pain 11/29/2017 12/27/2017 Inactive (Response to an electronic controlled substance refill request - RxReferenceNumber: [id number]|1|0|1) hydrocodone 10 mg-acetaminophen 325 mg tablet RxNorm: 373380 1 Tablet(s) PO Q6H as needed for pain 11/02/2017 11/28/2017 Inactive (Response to an electronic controlled substance refill request - RxReferenceNumber: [id number]|1|0|1) hydrocodone 10 mg-acetaminophen 325 mg tablet RxNorm: 976351 1 Tablet(s) PO Q6H as needed for pain 10/02/2017 11/01/2017 Inactive (Response to an electronic controlled substance refill request - RxReferenceNumber: [id number]|1|0|1) hydrocodone 10 mg-acetaminophen 325 mg tablet RxNorm: 751192 1 Tablet(s) PO Q6H as needed for pain 08/30/2017 10/01/2017 Inactive (Response to an electronic controlled substance refill request - RxReferenceNumber: [id number]|1|0|1) hydrocodone 10 mg-acetaminophen 325 mg tablet RxNorm: 252868 1 Tablet(s) PO Q6H as needed for pain 08/01/2017 08/29/2017 Inactive (Response to an electronic controlled substance refill request - RxReferenceNumber: [id number]|1|0|1) hydrocodone 10 mg-acetaminophen 325 mg tablet RxNorm: 845637 1 Tablet(s) PO Q6H as needed for pain 06/26/2017 07/31/2017 Inactive (Response to an electronic controlled substance refill request - RxReferenceNumber: [id number]|1|0|1) hydrocodone 10 mg-acetaminophen 325 mg tablet RxNorm: 997016 1 Tablet(s) PO Q6H as needed for pain 06/26/2017 06/30/2019 Inactive (Response to an electronic controlled substance refill request - RxReferenceNumber: [id number]|1|0|1) hydrocodone 10 mg-acetaminophen 325 mg tablet RxNorm: 669328 1 Tablet(s) PO Q6H as needed for pain 03/27/2017 06/25/2017 Inactive (Response to an electronic controlled substance refill request - RxReferenceNumber: [id number]|1|0|1) hydrocodone 10 mg-acetaminophen 325 mg tablet RxNorm: 993051 1 Tablet(s) PO Q6H as needed for pain 02/23/2017 03/26/2017 Inactive (Response to an electronic controlled substance refill request - RxReferenceNumber: [id number]|1|0|1) hydrocodone 10 mg-acetaminophen 325 mg tablet RxNorm: 531642 1 Tablet(s) PO Q6H as needed for pain 01/24/2017 02/22/2017 Inactive (Response to an electronic controlled substance refill request - RxReferenceNumber: [id number]|1|0|1) hydrocodone 10 mg-acetaminophen 325 mg tablet RxNorm: 138897 1 Tablet(s) PO Q6H as needed for pain 12/27/2016 06/30/2019 Inactive (Response to an electronic controlled substance refill request - RxReferenceNumber: [id number]|1|0|1) hydrocodone 10 mg-acetaminophen 325 mg tablet RxNorm: 794138 1 Tablet(s) PO Q6H as needed for pain 12/27/2016 01/23/2017 Inactive (Response to an electronic controlled substance refill request - RxReferenceNumber: [id number]|1|0|1) hydrocodone 10 mg-acetaminophen 325 mg tablet RxNorm: 096762 1 Tablet(s) PO Q6H as needed for pain 11/23/2016 12/26/2016 Inactive (Response to an electronic controlled substance refill request - RxReferenceNumber: [id number]|1|0|1) hydrocodone 10 mg-acetaminophen 325 mg tablet RxNorm: 614349 1 Tablet(s) PO Q6H as needed for pain 10/20/2016 11/22/2016 Inactive (Response to an electronic controlled substance refill request - RxReferenceNumber: [id number]|1|0|1) hydrocodone 10 mg-acetaminophen 325 mg tablet RxNorm: 308595 1 Tablet(s) PO Q6H as needed for pain 09/26/2016 10/19/2016 Inactive (Response to an electronic controlled substance refill request - RxReferenceNumber: [id number]|1|0|1) hydrocodone 10 mg-acetaminophen 325 mg tablet RxNorm: 864380 1 Tablet(s) PO Q6H as needed for pain 07/27/2016 09/25/2016 Inactive (Response to an electronic controlled substance refill request - RxReferenceNumber: [id number]|1|0|1) hydrocodone 10 mg-acetaminophen 325 mg tablet RxNorm: 146905 1 Tablet(s) PO Q6H as needed for pain 05/04/2016 07/26/2016 Inactive (Response to an electronic controlled substance refill request - RxReferenceNumber: [id number]|1|0|1) hydrocodone 10 mg-acetaminophen 325 mg tablet RxNorm: 977116 1 Tablet(s) PO Q6H as needed for pain 03/31/2016 05/03/2016 Inactive (Response to an electronic controlled substance refill request - RxReferenceNumber: [id number]|1|0|1) citalopram 10 mg tablet RxNorm: 016595 1 Tablet(s) PO QD 09/28/2015 0 09/27/2015 Inactive citalopram 10 mg tablet RxNorm: 959286 1 Tablet(s) PO QD 09/28/2015 0 09/06/2016 Inactive Wellbutrin SR 150 mg tablet,sustained-release RxNorm: 278337 1 Tablet(s) PO QAM 09/25/2015 09/06/2016 Inactive prednisone 20 mg tablet RxNorm: 112244 1 Tablet(s) PO T ID for 3 days then 1 po BID for 3 days then one daily for 3 days 08/31/2015 09/06/2016 Inactiv e cyclobenzaprine 10 mg tablet RxNorm: 280687 1 Tablet(s) PO TID as needed for muscle spasm 08/31/2015 07/17/2017 Inactive hydrocodone 10 mg-acetaminophen 325 mg tablet RxNorm: 138726 1 Tablet(s) PO Q6H as needed for pain 08/26/2015 03/30/2016 Inactive (Response to an electronic controlled substance refill request - RxReferenceNumber: [id number]|1|0|1) hydrocodone 10 mg-acetaminophen 325 mg tablet RxNorm: 115772 1 Tablet(s) PO Q6H as needed for pain 07/28/2015 08/25/2015 Inactive (Response to an electronic controlled substance refill request - RxReferenceNumber: [id number]|1|0|1) hydrocodone 10 mg-acetaminophen 325 mg tablet RxNorm: 379795 1 Tablet(s) PO Q6H as needed for pain 06/23/2015 07/27/2015 Inactive (Response to an electronic controlled substance refill request - RxReferenceNumber: [id number]|1|0|1) hydrocodone 10 mg-acetaminophen 325 mg tablet RxNorm: 102432 1 Tablet(s) PO Q6H as needed for pain 05/21/2015 06/22/2015 Inactive (Response to an electronic controlled substance refill request - RxReferenceNumber: [id number]|1|0|1) azithromycin 250 mg tablet RxNorm: 179211 2 Tablet(s) P O on day one, then one tablet on days 2 - 5 04/27/2015 08/30/2015 Inactive hydrocodone 10 mg-acetaminophen 325 mg tablet RxNorm: 611680 1 Tablet(s) PO Q6H as needed for pain 03/25/2015 05/20/2015 Inactive (Response to an electronic controlled substance refill request - RxReferenceNumber: [id number]|1|0|1) hydrocodone 10 mg-acetaminophen 325 mg tablet RxNorm: 393130 1 Tablet(s) PO Q6H as needed for pain 02/24/2015 03/24/2015 Inactive (Response to an electronic controlled substance refill request - RxReferenceNumber: [id number]|1|0|1) hydrocodone 10 mg-acetaminophen 325 mg tablet RxNorm: 278782 1 Tablet(s) PO Q6H as needed for pain 01/23/2015 02/23/2015 Inactive (Response to an electronic controlled substance refill request - RxReferenceNumber: [id number]|1|0|1) hydrocodone 10 mg-acetaminophen 325 mg tablet RxNorm: 192729 1 Tablet(s) PO Q6H as needed for pain 12/23/2014 01/22/2015 Inactive (Response to an electronic controlled substance refill request - RxReferenceNumber: [id number]|1|0|1) hydrocodone 10 mg-acetaminophen 325 mg tablet RxNorm: 772063 1 Tablet(s) PO Q6H as needed for pain 11/24/2014 12/22/2014 Inactive (Response to an electronic controlled substance refill request - RxReferenceNumber: [id number]|1|0|1) hydrocodone 10 mg-acetaminophen 325 mg tablet RxNorm: 259943 1 Tablet(s) PO Q6H as needed for pain 10/28/2014 11/23/2014 Inactive (Response to an electronic controlled substance refill request - RxReferenceNumber: [id number]|1|0|1) hydrocodone 10 mg-acetaminophen 325 mg tablet RxNorm: 416621 1 Tablet(s) PO Q6H as needed for pain 09/25/2014 10/27/2014 Inactive (Response to an electronic controlled substance refill request - RxReferenceNumber: [id number]|1|0|1) Lipitor 80 mg tablet RxNorm: 034253 1 Tablet(s) PO QHS 09/24/2014 Inactive hydrocodone 10 mg-acetaminophen 325 mg tablet RxNorm: 320805 1 Tablet(s) PO Q6H as needed for pain 07/30/2014 09/24/2014 Inactive (Response to an electronic controlled substance refill request - RxReferenceNumber: [id number]|1|0|1) hydrocodone 10 mg-acetaminophen 325 mg tablet RxNorm: 946274 1 Tablet(s) PO Q6H as needed for pain 05/27/2014 07/29/2014 Inactive (Response to an electronic controlled substance refill request - RxReferenceNumber: [id number]|1|0|1) clotrimazole-betamethasone 1 %-0.05 % topical cream RxNorm: 318599 TOP As Directed 05/01/2014 08/30/2015 Inactive [SAVINGS FOR UNI NSURED PATIENTS -- BIN:[id number], PCN: [id number], Group: [id number], ID# [id number], Process claim through [employer], for questions: . THIS IS NOT INSURANCE.] Lipitor 80 mg tablet RxNorm: 263635 1 Tablet(s) PO QHS 04/28/2014 Inactive hydrocodone 10 mg-acetaminophen 325 mg tablet RxNorm: 345165 1 Tablet(s) PO Q6H as needed for pain 04/28/2014 05/26/2014 Inactive (Response to an electronic controlled substance refill request - RxReferenceNumber: [id number]|1|0|1) hydrocodone 10 mg-acetaminophen 325 mg tablet RxNorm: 536496 1 Tablet(s) PO Q6H as needed for pain 03/27/2014 04/27/2014 Inactive (Response to an electronic controlled substance refill request - RxReferenceNumber: [id number]|1|0|1) hydrocodone 10 mg-acetaminophen 325 mg tablet RxNorm: 600200 1 Tablet(s) PO Q6H as needed for pain 12/20/2013 12/20/2013 Inactive (Appended: Co ntrolled substance eRx refill - RxReferenceNumber: [id number]|1|0|1) hydrocodone 10 mg-acetaminophen 325 mg tablet RxNorm: 302294 TAKE 1 TABLET BY MOUTH EVERY 6 HOURS NEEDED FOR PAIN 12/20/2013 01/12/2014 Inactive (Response to an electronic controlled substance refill request - RxReferenceNumber: [id number]|1|0|1) hydrocodone 10 mg-acetaminophen 325 mg tablet RxNorm: 736896 1 Tablet(s) PO Q6H as needed for pain 09/03/2013 12/19/2013 Inactive (Appended: Co ntrolled substance eRx refill - RxReferenceNumber: [id number]|1|0|1) hydrocodone 10 mg-acetaminophen 325 mg tablet RxNorm: 804066 Tablet(s) PO TAKE 1 TABLET BY MOUTH EVERY 6 HOURS NEEDED FOR PAIN 08/08/2013 09/03/2013 Inactive (Appended: Controlled substance eRx refill - RxReferenceNumber: [id number]|1|0|1) hydrocodone 10 mg-acetaminophen 325 mg tablet RxNorm: 384775 Tablet(s) PO TAKE 1 TABLET BY MOUTH EVERY 6 HOURS NEEDED FOR PAIN 07/11/2013 08/07/2013 Inactive (Appended: Controlled substance eRx refill - RxReferenceNumber: [id number]|1|0|1) hydrocodone 10 mg-acetaminophen 325 mg tablet RxNorm: 055421 2 Tablet(s) PO TAKE 1 TABLET BY MOUTH EVERY 6 HOURS NEEDED FOR PAIN 06/12/2013 3 Inactive (Appended: Controlled substance eRx ref ill - RxReferenceNumber: [id number]|1|0|1) hydrocodone 10 mg-acetaminophen 325 mg tablet RxNorm: 920442 2 1 Tablet(s) PO Q6H NEEDED FOR PAIN 05/15/2013 06/12/2013 Inactive (Appended: Co ntrolled substance eRx refill - RxReferenceNumber: [id number]|1|0|1) hydrocodone 10 mg-acetaminophen 325 mg tablet RxNorm: 390155 2 Tablet(s) PO TAKE 1 TO 2 TABLETS BY MOUTH EVERY 6 HOURS NEEDED FOR PAIN 04/18/2013 No Stop Date Active (Appended: Controlled substa nce eRx refill - RxReferenceNumber: [id number]|1|0|1) hydrocodone 10 mg-acetaminophen 325 mg tablet RxNorm: 125650 2 Tablet(s) PO TAKE 1 TO 2 TABLETS BY MOUTH EVERY 6 HOURS NEEDED FOR PAIN 03/19/2013 No Stop Date Active (Appended: Controlled substa nce eRx refill - RxReferenceNumber: [id number]|1|0|1) hydrocodone 10 mg-acetaminophen 325 mg tablet RxNorm: 205830 2 Tablet(s) PO TAKE 1 TO 2 TABLETS BY MOUTH EVERY 6 HOURS NEEDED FOR PAIN 02/06/2013 Inactive (Appended: Controlled substance eRx refi ll - RxReferenceNumber: [id number]|1|0|1) hydrocodone 10 mg-acetaminophen 325 mg tablet RxNorm: 180330 2 Tablet(s) PO TAKE 1 TO 2 TABLETS BY MOUTH EVERY 6 HOURS NEEDED FOR PAIN 01/08/201304/2013 Inactive (Appended: Controlled substance eRx ref ill - RxReferenceNumber: [id number]|1|0|1) Zithromax 250 mg tablet RxNorm: 154726 2 Tablet(s) PO QD 12/04/2012 0 12/10/2012 Inactive prednisone 20 mg tablet RxNorm: 754000 1 Tablet(s) PO BID 12/04/2012 12/10/2012 Inactive atorvastatin 40 mg tablet RxNorm: 141129 1 Tablet(s) PO QD 11/09/19 13 12/17/2013 Inactive hydrocodone 10 mg-acetaminophen 325 mg tablet RxNorm: 680829 2 Tablet(s) PO TAKE 1 TO 2 TABLETS BY MOUTH EVERY 6 HOURS NEEDED FOR PAIN 10/18/201205/2013 Inactive (Appended: Controlled substance eRx ref ill - RxReferenceNumber: [id number]|1|0|1) hydrocodone 10 mg-acetaminophen 325 mg tablet RxNorm: 082809 2 1-2 Tablet(s) PO Q6H as needed for pain 09/06/2012 10/18/2012 Inactive Lamisil 250 mg tablet RxNorm: 533886 1 Tablet(s) PO QD 08/14/2012 Inactive atorvastatin 40 mg tablet RxNorm: 716308 1 Tablet(s) PO QD 08/08/19 13 11/05/2012 Inactive prednisone 20 mg tablet RxNorm: 819067 1 Tablet(s) PO BID 07/17/2012 07/23/2012 Inactive Wellbutrin SR 150 mg tablet,extended release RxNorm: 140856 1 T ablet(s) PO BID 07/17/2012 08/13/2012 Inactive meloxicam 15 mg tablet RxNorm: 738604 1 Tablet(s) PO QD for pain 07/16/2012 Inactive atorvastatin 40 mg tablet RxNorm: 766742 1 Tablet(s) PO QD 06/27/2008/07/2012 Inactive hydrocodone-acetaminophen 10 mg-325 mg tablet RxNorm: 430851 2 1-2 Tablet(s) PO Q6H as needed for pain 05/23/2012 No Stop Date Active hydrocodone-acetaminophen 10 mg-325 mg tablet RxNorm: 007833 2 1-2 Tablet(s) PO Q6H as needed for pain 04/24/2012 No Stop Date Active hydrocodone-acetaminophen 10 mg-325 mg tablet RxNorm: 766126 2 1-2 Tablet(s) PO Q6H as needed for pain 02/08/2012 No Stop Date Active hydrocodone-acetaminophen 10 mg-325 mg Tab RxNorm: 5651137 1-2 Tablet(s) PO Q6H as needed for pain 01/02/2012 No Stop Date Active hydrocodone-acetaminophen 10 mg-325 mg Tab RxNorm: 6979612 1-2 Tablet(s) PO Q6H as needed for pain 11/29/2011 No Stop Date Active hydrocodone-acetaminophen 10 mg-325 mg Tab RxNorm: 9260646 1-2 Tablet(s) PO Q6H as needed for pain 10/24/2011 No Stop Date Active hydrocodone-acetaminophen 10 mg-325 mg Tab RxNorm: 8986818 1-2 Tablet(s) PO Q6H as needed for pain 10/07/2011 No Stop Date Active simvastatin 40 mg Tab RxNorm: 440464 1 Tablet(s) PO QHS 08/11/2011 Inactive clopidogrel 75 mg tablet RxNorm: 266340 1 Tablet(s) PO QD No Start Da te Active metoprolol succinate ER 25 mg tablet,extended release 24 hr RxNorm: 901340 1 Tablet(s) PO QD No Start Date Active Symbicort 160 mcg-4.5 mcg/actuation HFA aerosol inhaler RxNo rm: 2325194 2 INH QD No Start Date Active atorvastatin 40 mg tablet RxNorm: 383605 1 Tablet(s) PO QD No Start D ate Active aspirin 81 mg tablet RxNorm: 057485 1 Tablet(s) PO QD No Start Date Active Vitamin D3 2,000 unit tablet RxNorm: 093002 3 Tablet(s) PO No Start D ate Active lisinopril 5 mg tablet RxNorm: 028795 1 Tablet(s) PO QD No Start Date Active hydrocodone-acetaminophen 10 mg-325 mg Tab RxNorm: 9884954 1-2 Tablet(s) PO Q6H as needed for pain No Start Date 10/06/2011 Inactive Wellbutrin SR 150 mg tablet,sustained-release RxNorm: 634223 1 Tablet(s) PO QAM No Start Date 09/24/2015 Inactive OxyContin 15 mg 12 hr Tab RxNorm: 3301561 1 Tablet(s) PO BID No Sta rt Date 08/10/2011 Inactive warfarin 5 mg Tab RxNorm: 442735 1 Tablet(s) PO QD No Start Date 03/01 Inactive albuterol sulfate 1.25 mg/3 mL Neb Solution RxNorm: 881283 1 Unit Dose INH prn wheezing, congestion, shortness of breath No Start Date 04/30/2014 Inacti ve azithromycin 250 mg tablet RxNorm: 684109 2 Tablet(s) P O on day one, then one tablet on days 2 - 5 No Start Date 04/26/2015 Inactive warfarin 10 mg Tab RxNorm: 360737 1 Tablet(s) PO QOD No Start Date Inactive Symbicort Inhl RxNorm: Inhalation No Start Date 12/16/2013 Inactive Trilipix 135 mg Cap RxNorm: 104746 1 Capsule(s) PO QD No Start Date 0 12/07/2011 Inactive Chantix Starting Month Box 0.5 mg (11)-1 mg (42) table ts in dose pack RxNorm: 311615 Tablet(s) PO as directed No Start Date 12/03/2012 Inactive clotrimazole-betamethasone 1 %-0.05 % topical cream RxNorm: 954203 TOP As Directed No Start Date 04/30/2014 Inactive nystatin-triamcinolone 100,000 unit/g-0.1 % Topical Cream Rx Norm: 7182083 Application TOP BID for 2-4weeks No Start Date 12/03/2012 Inactive Lovastatin 20 mg Tab RxNorm: 117056 1 Tablet(s) PO QHS No Start Date 08/10/2011 Inactive krill oil oral RxNorm: 01530 oral No Start Date 06/30/2019 Inacti ve warfarin 7.5 mg Tab RxNorm: 804380 1 Tablet(s) PO QOD No Start Date 1 09/16/2011 Inactive Lipitor 80 mg tablet RxNorm: 805149 1 Tablet(s) PO QHS No Start Date 04/27/2014 Inactive simvastatin 40 mg Tab RxNorm: 025018 1 Tablet(s) PO QHS No Start Da te 08/10/2011 Inactive Gemfibrozil 600 mg Tab RxNorm: 469287 1 Tablet(s) PO QHS No Start D ate 08/10/2011 Inactive Medication Administered No Medication Administered data Immunizations No Immunization data Results Observation Observation Code Item Item Code Result Date S [facility] Location COMPLETE BLOOD COUNT [id number] WBC 9.7 10e9/L 06/19/20 18 Unknown COMPLETE BLOOD COUNT [id number] RBC 5.35 10e12/L 2017 Unknown COMPLETE BLOOD COUNT [id number] HEMOGLOBIN 17.1 g/dL 06/19/20 18 Unknown COMPLETE BLOOD COUNT [id number] HEMATOCRIT 52.4 % 06/19/20 18 Unknown COMPLETE BLOOD COUNT [id number] MCV 97.9 fL 8 Unknown COMPLETE BLOOD COUNT [id number] MCH 32.0 pg 8 Unknown COMPLETE BLOOD COUNT [id number] MCHC 32.6 g/dL 8 Unknown COMPLETE BLOOD COUNT [id number] PLATELET COUNT 257 10e9/L Unknown COMPLETE BLOOD COUNT [id number] Mean Plt Volume 11.2 fL Unknown COMPLETE BLOOD COUNT [id number] Neut Auto 54.6 % 8 Unknown COMPLETE BLOOD COUNT [id number] Lymph Auto 33.3 % 06/19/20 18 Unknown COMPLETE BLOOD COUNT [id number] [place] Auto 9.1 % 8 Unknown COMPLETE BLOOD COUNT [id number] RDW 14.4 % 8 Unknown COMPLETE BLOOD COUNT [id number] Eos Auto 2.6 % 8 Unknown COMPLETE BLOOD COUNT [id number] Baso Auto 0.4 % 8 Unknown COMPLETE BLOOD COUNT [id number] Neutrophil Abs 5.30 10e9/L Unknown COMPLETE BLOOD COUNT [id number] Lymphocyte Abs 3.23 10e9/L Unknown COMPLETE BLOOD COUNT [id number] Monocyte Abs 0.88 10e9/L 06/01 Unknown COMPLETE BLOOD COUNT [id number] Eosinophil Abs 0.25 10e9/L Unknown COMPLETE BLOOD COUNT [id number] RDW-SD 51.8 fL 8 Unknown COMPLETE BLOOD COUNT [id number] Basophil Abs 0.04 10e9/L 06/01 Unknown LIP[facility] 12910 Cholesterol 222 mg/dL 06/19/2018 Unkno wn LIPID GROUP 54569 Triglyceride 111 mg/dL 06/19/2018 Unkn own LIP[facility] GROUP 92151 HDL CHOLESTEROL 37 mg/dL 06/19/2018 U nknown LIPID GROUP 82038 Chol/HDL Ratio 6.00 ratio 06/19/2018 U nknown LIPID GROUP 67736 NON-HDL Chol 185 mg/dL 06/19/2018 Unkn own LIPID GROUP 08416 LDL Cholesterol 163 mg/dL 06/19/2018 U nknown VITAMIN B 12 72169 VITAMIN B12 532 pg/mL 06/19/2018 Unkn own THYROID STIMULATING HORMONE 65291 TSH 2.685 uIU/mL 06/19/2018 Unknown COMPREHENSIVE METABOLIC 16089 AST 15 U/L 2017 Unknown COMPREHENSIVE METABOLIC 00786 ALT 21 U/L 2017 Unknown COMPREHENSIVE METABOLIC 44861 BUN 16 mg/dL 2017 Unknown COMPREHENSIVE METABOLIC 95312 ALBUMIN 4.1 g/dL 2017 Unknown COMPREHENSIVE METABOLIC 55954 CHLORIDE 99 mmol/L 2017 Unknown COMPREHENSIVE METABOLIC 51228 Bili Total 0.4 mg/dL 06/19 Unknown COMPREHENSIVE METABOLIC 64523 ALK PHOS 43 U/L 2017 Unknown COMPREHENSIVE METABOLIC 92540 SODIUM 136 mmol/L 06/19 Unknown COMPREHENSIVE METABOLIC 85795 CREATININE 0.82 mg/dL 06/01 Unknown COMPREHENSIVE METABOLIC 98621 CALCIUM 9.5 mg/dL 2017 Unknown COMPREHENSIVE METABOLIC 32761 POTASSIUM 5.2 mmol/L 06/19 Unknown COMPREHENSIVE METABOLIC 78865 Total Protein 6.7 g/dL Unknown COMPREHENSIVE METABOLIC 35328 Glucose 81 mg/dL 2017 Unknown COMPREHENSIVE METABOLIC 72070 Bicarbonate 30 mmol/L 06/01 Unknown COMPREHENSIVE METABOLIC 14834 AGAP 7 mmol/L 2017 Unknown FREE T4 71706 T4 Free 0.85 ng/dL 06/19/2018 Unknown GFR CALC 4011117 GFR Non Afr Amr >60 mL/min 06/19/2018 Un known GFR CALC 1464862 GFR Afr Amr >60 mL/min 06/19/2018 Unknow n VITAMIN D TOTAL (25 HYDROXY) 19731 Vitamin D 25 [place] 24.1 ng/mL 06/19/2018 Unknown PSA EQUIMOLAR TROY 30171 PSA Total 0.88 ng/mL 8 Unknown GFR CALC 3468556 GFR Non Afr Amr >60 mL/min 09/09/2016 Un known GFR CALC 3703473 GFR Afr Amr >60 mL/min 09/09/2016 Unknow n COMPLETE BLOOD COUNT 5559434 WBC 11.7 10e9/L 017 Unknown COMPLETE BLOOD COUNT 1321851 RBC 5.54 10e12/L 2016 Unknown COMPLETE BLOOD COUNT 3376952 HEMOGLOBIN 17.6 g/dL 09/09/19 17 Unknown COMPLETE BLOOD COUNT 2964245 HEMATOCRIT 52.3 % 09/09/19 17 Unknown COMPLETE BLOOD COUNT 6901017 MCV 94.4 fL 7 Unknown COMPLETE BLOOD COUNT 9898800 MCH 31.8 pg 7 Unknown COMPLETE BLOOD COUNT 7973593 MCHC 33.7 g/dL 7 Unknown COMPLETE BLOOD COUNT 2276336 PLATELET COUNT 259 10e9/L 04/2017 Unknown COMPLETE BLOOD COUNT 8210560 Mean Plt Volume 11.2 fL 04/2017 Unknown COMPLETE BLOOD COUNT 9396999 Neut Auto 53.6 % 7 Unknown COMPLETE BLOOD COUNT 3398290 Lymph Auto 36.2 % 09/09/19 17 Unknown COMPLETE BLOOD COUNT 3432480 [place] Auto 7.9 % 7 Unknown COMPLETE BLOOD COUNT 7329607 RDW 14.2 % 7 Unknown COMPLETE BLOOD COUNT 0464455 Eos Auto 2.1 % 7 Unknown COMPLETE BLOOD COUNT 4235159 Baso Auto 0.2 % 7 Unknown COMPLETE BLOOD COUNT 0123250 Neutrophil Abs 6.27 10e9/L Unknown COMPLETE BLOOD COUNT 9369552 Lymphocyte Abs 4.24 10e9/L Unknown COMPLETE BLOOD COUNT [id number] Monocyte Abs 0.92 10e9/L 08/31 Unknown COMPLETE BLOOD COUNT 8400241 Eosinophil Abs 0.25 10e9/L Unknown COMPLETE BLOOD COUNT 8985687 RDW-SD 48.1 fL 7 Unknown COMPLETE BLOOD COUNT [id number] Basophil Abs 0.02 10e9/L 08/31 Unknown COMPREHENSIVE METABOLIC 32493 AST 19 U/L 2016 Unknown COMPREHENSIVE METABOLIC 07580 ALT 25 U/L 2016 Unknown COMPREHENSIVE METABOLIC 25483 BUN 16 mg/dL 2016 Unknown COMPREHENSIVE METABOLIC 82591 ALBUMIN 4.8 g/dL 2016 Unknown COMPREHENSIVE METABOLIC 30700 CHLORIDE 100 mmol/L 09/09 Unknown COMPREHENSIVE METABOLIC 70222 Bili Total 0.7 mg/dL 09/09 Unknown COMPREHENSIVE METABOLIC 18431 ALK PHOS 50 U/L 2016 Unknown COMPREHENSIVE METABOLIC 67048 SODIUM 136 mmol/L 09/09 Unknown COMPREHENSIVE METABOLIC 28045 CREATININE 0.98 mg/dL 08/31 Unknown COMPREHENSIVE METABOLIC 42432 CALCIUM 9.8 mg/dL 2016 Unknown COMPREHENSIVE METABOLIC 90540 POTASSIUM 4.6 mmol/L 09/09 Unknown COMPREHENSIVE METABOLIC 72355 Total Protein 7.5 g/dL Unknown COMPREHENSIVE METABOLIC 96117 Glucose 104 mg/dL 2016 Unknown COMPREHENSIVE METABOLIC 31633 Bicarbonate 27 mmol/L 08/31 Unknown COMPREHENSIVE METABOLIC 53454 AGAP 9 mmol/L 2016 Unknown FREE T4 44414 T4 Free 1.04 ng/dL 09/09/2016 Unknown THYROID STIMULATING HORMONE 41663 TSH 1.618 uIU/mL 09/09/2016 Unknown LIPID GROUP 93364 Cholesterol 251 mg/dL 09/09/2016 Unkno wn LIPID GROUP 56976 Triglyceride 153 mg/dL 09/09/2016 Unkn own LIPID GROUP 39225 HDL CHOLESTEROL 33 mg/dL 09/09/2016 U nknown LIPID GROUP 34187 Chol/HDL Ratio 7.61 ratio 09/09/2016 U nknown LIPID GROUP 62070 NON-HDL Chol 218 mg/dL 09/09/2016 Unkn own LIPID GROUP 94449 LDL Cholesterol 187 mg/dL 09/09/2016 U nknown LIPID GROUP 20366 HDL TEST 39 MG/DL 09/15/2015 Unknown LIPID GROUP 50272 TRIG 106 MG/DL 09/15/2015 Unknown LIPID GROUP 70014 TEST LDL 152 MG/DL 09/15/2015 Unknown LIPID GROUP 64123 CHOL 212 MG/DL 09/15/2015 Unknown LIPID GROUP 63724 RCHOL/HDL 5.44 RATIO 09/15/2015 Unknow n LIPID GROUP 08223 NON-HDL CH 173 MG/DL 09/15/2015 Unknow n GFR CALC 6575835 GFR AA >60 ML/MIN 09/15/2015 Unknown GFR CALC 4904189 GFR NON-AA >60 ML/MIN 09/15/2015 Unknown COMPREHENSIVE METABOLIC 38084 AST 18 U/L 2015 Unknown COMPREHENSIVE METABOLIC 66360 ALT 28 IU/L 2015 Unknown COMPREHENSIVE METABOLIC 11437 BUN 14 MG/DL 2015 Unknown COMPREHENSIVE METABOLIC 35392 ALBUMIN 4.2 GM/DL 2015 Unknown COMPREHENSIVE METABOLIC 35922 CHLORIDE 101 MMOL/L 09/15 Unknown COMPREHENSIVE METABOLIC 18832 BILI TOT 0.6 MG/DL 2015 Unknown COMPREHENSIVE METABOLIC 56295 ALK PHOS 48 U/L 2015 Unknown COMPREHENSIVE METABOLIC 82067 SODIUM 135 MMOL/L 09/15 Unknown COMPREHENSIVE METABOLIC 20145 CREATININE 0.91 MG/DL 08/31 Unknown COMPREHENSIVE METABOLIC 71364 CALCIUM 9.2 MG/DL 2015 Unknown COMPREHENSIVE METABOLIC 04871 POTASSIUM 4.6 MMOL/L 09/15 Unknown COMPREHENSIVE METABOLIC 20777 PROT TOT 6.6 GM/DL 2015 Unknown COMPREHENSIVE METABOLIC 74251 Glucose 97 MG/DL 2015 Unknown COMPREHENSIVE METABOLIC 90119 BICARB 27 MMOL/L 2015 Unknown COMPREHENSIVE METABOLIC 86896 ANION GAP 7 MEQ/L 2015 Unknown LIPID GROUP 33887 HDL TEST 35 MG/DL 04/14/2015 Unknown LIPID GROUP 00739 TRIG 135 MG/DL 04/14/2015 Unknown LIPID GROUP 03917 TEST LDL 153 MG/DL 04/14/2015 Unknown LIPID GROUP 55283 CHOL 215 MG/DL 04/14/2015 Unknown LIPID GROUP 29610 RCHOL/HDL 6.14 RATIO 04/14/2015 Unknow n LIPID GROUP 24923 NON-HDL CH 180 MG/DL 04/14/2015 Unknow n GFR CALC 3690904 GFR AA >60 ML/MIN 04/14/2015 Unknown GFR CALC 0584902 GFR NON-AA >60 ML/MIN 04/14/2015 Unknown COMPREHENSIVE METABOLIC 85252 AST 23 U/L 2014 Unknown COMPREHENSIVE METABOLIC 25970 ALT 27 IU/L 2014 Unknown COMPREHENSIVE METABOLIC 53156 BUN 15 MG/DL 2014 Unknown COMPREHENSIVE METABOLIC 29684 ALBUMIN 4.2 GM/DL 2014 Unknown COMPREHENSIVE METABOLIC 40715 CHLORIDE 103 MMOL/L 04/14 Unknown COMPREHENSIVE METABOLIC 11172 BILI TOT 0.8 MG/DL 2014 Unknown COMPREHENSIVE METABOLIC 85252 ALK PHOS 50 U/L 2014 Unknown COMPREHENSIVE METABOLIC 81592 SODIUM 134 MMOL/L 04/14 Unknown COMPREHENSIVE METABOLIC 97095 CREATININE 0.93 MG/DL 03/31 Unknown COMPREHENSIVE METABOLIC 79006 CALCIUM 9.4 MG/DL 2014 Unknown COMPREHENSIVE METABOLIC 93811 POTASSIUM 4.4 MMOL/L 04/14 Unknown COMPREHENSIVE METABOLIC 36699 PROT TOT 6.8 GM/DL 2014 Unknown COMPREHENSIVE METABOLIC 37411 Glucose 101 MG/DL 2014 Unknown COMPREHENSIVE METABOLIC 66591 BICARB 25 MMOL/L 2014 Unknown COMPREHENSIVE METABOLIC 14608 ANION GAP 6 MEQ/L 2014 Unknown PSA EQUIMOLAR TROY 05674 PSA EQ 1.04 NG/ML 5 Unknown GFR CALC 2444348 GFR AA >60 ML/MIN 11/10/2014 Unknown GFR CALC 2095603 GFR NON-AA >60 ML/MIN 11/10/2014 Unknown LIPID GROUP 37633 HDL TEST 31 MG/DL 11/10/2014 Unknown LIPID GROUP 68829 TRIG 133 MG/DL 11/10/2014 Unknown LIPID GROUP 30328 TEST LDL 74 MG/DL 11/10/2014 Unknown LIPID GROUP 98425 CHOL 132 MG/DL 11/10/2014 Unknown LIPID GROUP 09445 RCHOL/HDL 4.26 RATIO 11/10/2014 Unknow n LIPID GROUP 68580 NON-HDL CH 101 MG/DL 11/10/2014 Unknow n COMPLETE BLOOD COUNT 3213367 WBC 10.2 10e9/L 015 Unknown COMPLETE BLOOD COUNT 5248696 RBC 5.01 10e12/L 2014 Unknown COMPLETE BLOOD COUNT 5889342 HGB 16.1 g/dL 5 Unknown COMPLETE BLOOD COUNT 5796333 HCT DET 48.1 % 5 Unknown COMPLETE BLOOD COUNT 1055387 MCV 96.0 fL 5 Unknown COMPLETE BLOOD COUNT 6695127 MCH 32.1 pg 5 Unknown COMPLETE BLOOD COUNT 7843266 MCHC 33.5 g/dL 5 Unknown COMPLETE BLOOD COUNT 1384559 PLT 248 10e9/L 11/11/19 15 Unknown COMPLETE BLOOD COUNT 5104042 MPV 11.4 fL 5 Unknown COMPLETE BLOOD COUNT 7125592 GIUSEPPE % 51.2 % 5 Unknown COMPLETE BLOOD COUNT 1186298 LY % 37.4 % 5 Unknown COMPLETE BLOOD COUNT 4143608 MON % 9.2 % 5 Unknown COMPLETE BLOOD COUNT 4321087 EOS % 2.0 % 5 Unknown COMPLETE BLOOD COUNT 3771214 BASO % 0.2 % 5 Unknown COMPLETE BLOOD COUNT 4924489 RDW 14.0 % 5 Unknown COMPLETE BLOOD COUNT 2961897 ABS GIUSEPPE 5.22 10e9/L 015 Unknown COMPLETE BLOOD COUNT 5787178 ABS LYMPH 3.81 10e9/L 015 Unknown COMPLETE BLOOD COUNT 4653030 ABS MONO 0.94 10e9/L 015 Unknown COMPLETE BLOOD COUNT 4667724 ABS EOS 0.20 10e9/L 015 Unknown COMPLETE BLOOD COUNT 5789252 ABS BASO 0.02 10e9/L 015 Unknown COMPLETE BLOOD COUNT 3769780 RDW-SD 47.8 fL 5 Unknown FREE T4 18374 FREE T4 0.92 NG/DL 11/10/2014 Unknown COMPREHENSIVE METABOLIC 42291 AST 18 U/L 2014 Unknown COMPREHENSIVE METABOLIC 46019 ALT 25 IU/L 2014 Unknown COMPREHENSIVE METABOLIC 82732 BUN 16 MG/DL 2014 Unknown COMPREHENSIVE METABOLIC 24749 ALBUMIN 4.5 GM/DL 2014 Unknown COMPREHENSIVE METABOLIC 91295 CHLORIDE 103 MMOL/L 11/10 Unknown COMPREHENSIVE METABOLIC 72810 BILI TOT 0.4 MG/DL 2014 Unknown COMPREHENSIVE METABOLIC 32901 ALK PHOS 53 U/L 2014 Unknown COMPREHENSIVE METABOLIC 29534 SODIUM 135 MMOL/L 11/10 Unknown COMPREHENSIVE METABOLIC 15052 CREATININE 0.97 MG/DL 10/29 Unknown COMPREHENSIVE METABOLIC 01748 CALCIUM 9.4 MG/DL 2014 Unknown COMPREHENSIVE METABOLIC 38378 POTASSIUM 4.4 MMOL/L 11/10 Unknown COMPREHENSIVE METABOLIC 93690 PROT TOT 6.9 GM/DL 2014 Unknown COMPREHENSIVE METABOLIC 01490 Glucose 91 MG/DL 2014 Unknown COMPREHENSIVE METABOLIC 30121 BICARB 26 MMOL/L 2014 Unknown COMPREHENSIVE METABOLIC 98214 ANION GAP 6 MEQ/L 2014 Unknown THYROID STIMULATING HORMONE 74820 TSH 3.791 uIU/ML 11/10/2014 Unknown LIPID GROUP 13502 HDL TEST 35 MG/DL 04/29/2014 Unknown LIPID GROUP 12384 TRIG 123 MG/DL 04/29/2014 Unknown LIPID GROUP 08155 TEST LDL 117 MG/DL 04/29/2014 Unknown LIPID GROUP 35739 CHOL 177 MG/DL 04/29/2014 Unknown LIPID GROUP 67074 RCHOL/HDL 5.06 RATIO 04/29/2014 Unknow n LIPID GROUP 79596 NON-HDL CH 142 MG/DL 04/29/2014 Unknow n COMPREHENSIVE METABOLIC 63263 AST 18 U/L 2013 Unknown COMPREHENSIVE METABOLIC 82557 ALT 29 IU/L 2013 Unknown COMPREHENSIVE METABOLIC 34688 BUN 19 MG/DL 2013 Unknown COMPREHENSIVE METABOLIC 16389 ALBUMIN 4.0 GM/DL 2013 Unknown COMPREHENSIVE METABOLIC 12042 CHLORIDE 106 MMOL/L 04/29 Unknown COMPREHENSIVE METABOLIC 61070 BILI TOT 0.4 MG/DL 2013 Unknown COMPREHENSIVE METABOLIC 79696 ALK PHOS 51 U/L 2013 Unknown COMPREHENSIVE METABOLIC 84016 SODIUM 138 MMOL/L 04/29 Unknown COMPREHENSIVE METABOLIC 38976 CREATININE 0.87 MG/DL 04/02 Unknown COMPREHENSIVE METABOLIC 01132 CALCIUM 9.4 MG/DL 2013 Unknown COMPREHENSIVE METABOLIC 51122 POTASSIUM 4.5 MMOL/L 04/29 Unknown COMPREHENSIVE METABOLIC 18531 PROT TOT 6.8 GM/DL 2013 Unknown COMPREHENSIVE METABOLIC 44473 Glucose 106 MG/DL 2013 Unknown COMPREHENSIVE METABOLIC 45894 BICARB 24 MMOL/L 2013 Unknown COMPREHENSIVE METABOLIC 40518 ANION GAP 8 MEQ/L 2013 Unknown GFR CALC 7667884 GFR AA >60 ML/MIN 04/29/2014 Unknown GFR CALC 4620734 GFR NON-AA >60 ML/MIN 04/29/2014 Unknown LIPID GROUP 28802 HDL TEST 30 MG/DL 12/18/2013 Unknown LIPID GROUP 59133 TRIG 128 MG/DL 12/18/2013 Unknown LIPID GROUP 56940 TEST LDL 166 MG/DL 12/18/2013 Unknown LIPID GROUP 61639 CHOL 222 MG/DL 12/18/2013 Unknown LIPID GROUP 65612 RCHOL/HDL 7.40 RATIO 12/18/2013 Unknow n GFR CALC 2130814 GFR AA >60 ML/MIN 12/18/2013 Unknown GFR CALC 7875345 GFR NON-AA >60 ML/MIN 12/18/2013 Unknown FREE T4 49986 FREE T4 1.07 NG/DL 12/18/2013 Unknown COMPLETE BLOOD COUNT 6735892 WBC 7.2 10e9/L 12/19/19 14 Unknown COMPLETE BLOOD COUNT 9970798 RBC 4.89 10e12/L 2013 Unknown COMPLETE BLOOD COUNT 5764256 HGB 15.5 g/dL 4 Unknown COMPLETE BLOOD COUNT 3015653 HCT DET 46.6 % 4 Unknown COMPLETE BLOOD COUNT 5167211 MCV 95.3 fL 4 Unknown COMPLETE BLOOD COUNT 3162076 MCH 31.7 pg 4 Unknown COMPLETE BLOOD COUNT 1449490 MCHC 33.3 g/dL 4 Unknown COMPLETE BLOOD COUNT 9874116 PLT 246 10e9/L 12/19/19 14 Unknown COMPLETE BLOOD COUNT 5645708 MPV 11.4 fL 4 Unknown COMPLETE BLOOD COUNT 2475309 GIUSEPPE % 48.6 % 4 Unknown COMPLETE BLOOD COUNT 1000169 LY % 37.4 % 4 Unknown COMPLETE BLOOD COUNT 3632577 MON % 10.5 % 4 Unknown COMPLETE BLOOD COUNT 2075493 EOS % 3.2 % 4 Unknown COMPLETE BLOOD COUNT 5553930 BASO % 0.3 % 4 Unknown COMPLETE BLOOD COUNT 1524764 RDW 13.6 % 4 Unknown COMPLETE BLOOD COUNT 4741440 ABS GIUSEPPE 3.50 10e9/L 014 Unknown COMPLETE BLOOD COUNT 0814192 ABS LYMPH 2.69 10e9/L 014 Unknown COMPLETE BLOOD COUNT 8115226 ABS MONO 0.76 10e9/L 014 Unknown COMPLETE BLOOD COUNT 1792542 ABS EOS 0.23 10e9/L 014 Unknown COMPLETE BLOOD COUNT 8395321 ABS BASO 0.02 10e9/L 014 Unknown COMPLETE BLOOD COUNT 7483761 RDW-SD 46.2 fL 4 Unknown COMPREHENSIVE METABOLIC 91791 AST 38 U/L 2013 Unknown COMPREHENSIVE METABOLIC 15900 ALT 33 IU/L 2013 Unknown COMPREHENSIVE METABOLIC 39639 BUN 15 MG/DL 2013 Unknown COMPREHENSIVE METABOLIC 89362 ALBUMIN 4.2 GM/DL 2013 Unknown COMPREHENSIVE METABOLIC 23844 CHLORIDE 103 MMOL/L 12/18 Unknown COMPREHENSIVE METABOLIC 67225 BILI TOT 0.6 MG/DL 2013 Unknown COMPREHENSIVE METABOLIC 02877 ALK PHOS 45 U/L 2013 Unknown COMPREHENSIVE METABOLIC 55707 SODIUM 136 MMOL/L 12/18 Unknown COMPREHENSIVE METABOLIC 24332 CREATININE 0.97 MG/DL 11/29 Unknown COMPREHENSIVE METABOLIC 68410 CALCIUM 9.2 MG/DL 2013 Unknown COMPREHENSIVE METABOLIC 95476 POTASSIUM 4.2 MMOL/L 12/18 Unknown COMPREHENSIVE METABOLIC 37845 PROT TOT 7.0 GM/DL 2013 Unknown COMPREHENSIVE METABOLIC 15905 Glucose 120 MG/DL 2013 Unknown COMPREHENSIVE METABOLIC 58324 BICARB 24 MMOL/L 2013 Unknown COMPREHENSIVE METABOLIC 28263 ANION GAP 9 MEQ/L 2013 Unknown THYROID STIMULATING HORMONE 52534 TSH 1.305 uIU/ML 12/18/2013 Unknown PSA EQUIMOLAR TROY 79672 PSA EQ 1.71 NG/ML 4 Unknown LIPID GROUP 30413 HDL TEST 29 MG/DL 07/17/2012 Unknown LIPID GROUP 81380 TRIG 155 MG/DL 07/17/2012 Unknown LIPID GROUP 96890 TEST LDL 105 MG/DL 07/17/2012 Unknown LIPID GROUP 70762 CHOL 165 MG/DL 07/17/2012 Unknown LIPID GROUP 65465 RCHOL/HDL 5.69 RATIO 07/17/2012 Unknow n GFR CALC 5497606 GFR AA >60 ML/MIN 07/17/2012 Unknown GFR CALC 8610992 GFR NON-AA >60 ML/MIN 07/17/2012 Unknown COMPREHENSIVE METABOLIC 27912 AST 19 U/L 2011 Unknown COMPREHENSIVE METABOLIC 40276 ALT 25 IU/L 2011 Unknown COMPREHENSIVE METABOLIC 02716 BUN 14 MG/DL 2011 Unknown COMPREHENSIVE METABOLIC 10917 ALBUMIN 4.4 GM/DL 2011 Unknown COMPREHENSIVE METABOLIC 50719 CHLORIDE 103 MMOL/L 07/17 Unknown COMPREHENSIVE METABOLIC 02330 BILI TOT 0.6 MG/DL 2011 Unknown COMPREHENSIVE METABOLIC 66672 ALK PHOS 53 U/L 2011 Unknown COMPREHENSIVE METABOLIC 40635 SODIUM 136 MMOL/L 07/17 Unknown COMPREHENSIVE METABOLIC 78268 CREATININE 0.97 MG/DL 06/30 Unknown COMPREHENSIVE METABOLIC 76706 CALCIUM 9.4 MG/DL 2011 Unknown COMPREHENSIVE METABOLIC 79746 POTASSIUM 4.3 MMOL/L 07/17 Unknown COMPREHENSIVE METABOLIC 45637 PROT TOT 6.9 GM/DL 2011 Unknown COMPREHENSIVE METABOLIC 59211 Glucose 102 MG/DL 2011 Unknown COMPREHENSIVE METABOLIC 05283 BICARB 27 MMOL/L 2011 Unknown COMPREHENSIVE METABOLIC 24121 ANION GAP 6 MEQ/L 2011 Unknown ERYTHROCYTE SEDIMENTATION RATE 57729 ESR 14 MM/HR 03/20/2012 Unknown LIPID GROUP 29412 HDL TEST 31 MG/DL 03/20/2012 Unknown LIPID GROUP 99274 TRIG 210 MG/DL 03/20/2012 Unknown LIPID GROUP 06729 TEST LDL 164 MG/DL 03/20/2012 Unknown LIPID GROUP 79985 CHOL 237 MG/DL 03/20/2012 Unknown LIPID GROUP 56645 RCHOL/HDL 7.65 RATIO 03/20/2012 Unknow n GFR CALC 4546410 GFR AA >60 ML/MIN 03/20/2012 Unknown GFR CALC 8536750 GFR NON-AA >60 ML/MIN 03/20/2012 Unknown C-REACTIVE PROTEIN (CRP) QUANT 99865 CRP 0.9 MG/DL 03/20/2012 Unknown COMPLETE BLOOD COUNT 19707 WBC 9.7 10e9/L 03/20/20 12 Unknown COMPLETE BLOOD COUNT 20024 RBC 5.14 10e12/L 2011 Unknown COMPLETE BLOOD COUNT 28056 HGB 15.5 g/dL 2 Unknown COMPLETE BLOOD COUNT 28783 HCT DET 46.9 % 2 Unknown COMPLETE BLOOD COUNT 98069 MCV 91.2 fL 2 Unknown COMPLETE BLOOD COUNT 21565 MCH 30.2 pg 2 Unknown COMPLETE BLOOD COUNT 90356 MCHC 33.0 g/dL 2 Unknown COMPLETE BLOOD COUNT 79904 PLT 280 10e9/L 03/20/20 12 Unknown COMPLETE BLOOD COUNT 46907 MPV 10.6 fL 2 Unknown COMPLETE BLOOD COUNT 17073 GIUSEPPE % 61.5 % 2 Unknown COMPLETE BLOOD COUNT 47027 LY % 26.5 % 2 Unknown COMPLETE BLOOD COUNT 01809 MON % 8.8 % 2 Unknown COMPLETE BLOOD COUNT 80687 EOS % 3.0 % 2 Unknown COMPLETE BLOOD COUNT 89300 BASO % 0.2 % 2 Unknown COMPLETE BLOOD COUNT 06499 RDW 15.3 % 2 Unknown COMPLETE BLOOD COUNT 55452 ABS GIUSEPPE 5.97 10e9/L 012 Unknown COMPLETE BLOOD COUNT 20871 ABS LYMPH 2.57 10e9/L 012 Unknown COMPLETE BLOOD COUNT 38065 ABS MONO 0.85 10e9/L 012 Unknown COMPLETE BLOOD COUNT 57261 ABS EOS 0.29 10e9/L 012 Unknown COMPLETE BLOOD COUNT 03708 ABS BASO 0.02 10e9/L 012 Unknown COMPLETE BLOOD COUNT 95366 RDW-SD 50.3 fL 2 Unknown COMPREHENSIVE METABOLIC 96586 AST 16 U/L 2011 Unknown COMPREHENSIVE METABOLIC 92116 ALT 21 IU/L 2011 Unknown COMPREHENSIVE METABOLIC 01141 BUN 15 MG/DL 2011 Unknown COMPREHENSIVE METABOLIC 75821 ALBUMIN 4.3 GM/DL 2011 Unknown COMPREHENSIVE METABOLIC 67831 CHLORIDE 102 MMOL/L 03/20 Unknown COMPREHENSIVE METABOLIC 09173 BILI TOT 0.5 MG/DL 2011 Unknown COMPREHENSIVE METABOLIC 78051 ALK PHOS 60 U/L 2011 Unknown COMPREHENSIVE METABOLIC 78289 SODIUM 135 MMOL/L 03/20 Unknown COMPREHENSIVE METABOLIC 03627 CREATININE 0.94 MG/DL 03/01 Unknown COMPREHENSIVE METABOLIC 32885 CALCIUM 9.0 MG/DL 2011 Unknown COMPREHENSIVE METABOLIC 74804 POTASSIUM 4.4 MMOL/L 03/20 Unknown COMPREHENSIVE METABOLIC 85858 PROT TOT 6.7 GM/DL 2011 Unknown COMPREHENSIVE METABOLIC 01491 Glucose 96 MG/DL 2011 Unknown COMPREHENSIVE METABOLIC 13634 BICARB 25 MMOL/L 2011 Unknown COMPREHENSIVE METABOLIC 67264 ANION GAP 8 MEQ/L 2011 [place] [address] PRO TIME 21.6 SEC 03/20/[place] [address] INR MCMC 1.8 03/20/2012 Unknow n Procedures Procedure Codes Date ROUTINE VENIPUNCTURE CPT-4: 25116 06/19/2018 ASSAY OF FREE THYROXINE CPT-4: 05424 06/19/2018 ASSAY THYROID STIM HORMONE CPT-4: 64170 06/19/2018 COMPREHEN METABOLIC PANEL CPT-4: 22374 06/19/2018 COMPLETE CBC W/AUTO DIFF WBC CPT-4: 72262 06/19/2018 LIPID PANEL CPT-4: 60351 06/19/2018 ASSAY OF PSA TOTAL CPT-4: 88540 06/19/2018 VITAMIN D TOTAL (25 HYDROXY) CPT-4: 43432 06/19/2018 VITAMIN B-12 CPT-4: 06744 06/19/2018 DEXAMETHASONE SODIUM PHOS CPT-4: J1100 08/31/2017 TRIAMCINOLONE ACET INJ NOS CPT-4: J3301 08/31/2017 DRAIN/INJECT JOINT/BURSA CPT-4: 59800 08/31/2017 ROUTINE VENIPUNCTURE CPT-4: 25581 08/01/2017 COMPREHEN METABOLIC PANEL CPT-4: 91075 08/01/2017 LIPID PANEL CPT-4: 34187 08/01/2017 DRAIN/INJECT JOINT/BURSA CPT-4: 16714 09/12/2016 TRIAMCINOLONE ACET INJ NOS CPT-4: J3301 09/12/2016 DEXAMETHASONE SODIUM PHOS CPT-4: J1100 09/12/2016 ROUTINE VENIPUNCTURE CPT-4: 51436 09/09/2016 ASSAY OF FREE THYROXINE CPT-4: 09356 09/09/2016 ASSAY THYROID STIM HORMONE CPT-4: 90449 09/09/2016 COMPREHEN METABOLIC PANEL CPT-4: 52387 09/09/2016 COMPLETE CBC W/AUTO DIFF WBC CPT-4: 29039 09/09/2016 LIPID PANEL CPT-4: 10626 09/09/2016 SPECIAL REPORTS OR FORMS CPT-4: 56445 08/05/2016 ROUTINE VENIPUNCTURE CPT-4: 90939 09/15/2015 COMPREHEN METABOLIC PANEL CPT-4: 10206 09/15/2015 LIPID PANEL CPT-4: 58091 09/15/2015 PRESCRIP TRANSMIT VIA ERX SY CPT-4: G8553 08/31/2015 ROUTINE VENIPUNCTURE CPT-4: 19752 04/14/2015 COMPREHEN METABOLIC PANEL CPT-4: 75862 04/14/2015 LIPID PANEL CPT-4: 59430 04/14/2015 ROUTINE VENIPUNCTURE CPT-4: 03733 11/10/2014 ASSAY OF FREE THYROXINE CPT-4: 22217 11/10/2014 ASSAY THYROID STIM HORMONE CPT-4: 76890 11/10/2014 COMPREHEN METABOLIC PANEL CPT-4: 42593 11/10/2014 COMPLETE CBC W/AUTO DIFF WBC CPT-4: 17750 11/10/2014 LIPID PANEL CPT-4: 39527 11/10/2014 ASSAY OF PSA TOTAL CPT-4: 60709 11/10/2014 ROUTINE VENIPUNCTURE CPT-4: 86387 04/29/2014 COMPREHEN METABOLIC PANEL CPT-4: 11780 04/29/2014 LIPID PANEL CPT-4: 72914 04/29/2014 ROUTINE VENIPUNCTURE CPT-4: 45123 12/18/2013 ASSAY OF FREE THYROXINE CPT-4: 78027 12/18/2013 ASSAY THYROID STIM HORMONE CPT-4: 79951 12/18/2013 COMPREHEN METABOLIC PANEL CPT-4: 27257 12/18/2013 COMPLETE CBC W/AUTO DIFF WBC CPT-4: 78957 12/18/2013 LIPID PANEL CPT-4: 37527 12/18/2013 ASSAY OF PSA TOTAL CPT-4: 07083 12/18/2013 ROUTINE VENIPUNCTURE CPT-4: 42899 07/17/2012 COMPREHEN METABOLIC PANEL CPT-4: 20075 07/17/2012 LIPID PANEL CPT-4: 16524 07/17/2012 ROUTINE VENIPUNCTURE CPT-4: 78509 03/20/2012 COMPLETE CBC W/AUTO DIFF WBC CPT-4: 30346 03/20/2012 RBC SED RATE AUTOMATED CPT-4: 72093 03/20/2012 C-REACTIVE PROTEIN CPT-4: 57966 03/20/2012 COMPREHEN METABOLIC PANEL CPT-4: 67970 03/20/2012 LIPID PANEL CPT-4: 64369 03/20/2012 PROTHROMBIN TIME CPT-4: 93090 03/20/2012 Vital Signs Date Vital 10/07/2019 Blood Pressure 1: 142/83 Code: 8480-6 BMI: 31.3 Code: 36049-1 Heart Rate 1: 80 bpm Height: 6'2" Respiratory Rate: 17 bpm SpO2: 99% Tempera ture: 36.7 (C) / 98.1 (F) Weight: 244 lbs 07/01/2019 Blood Pressure 1: 114/80 Code: 8480-6 BMI: 30.4 Code: 14599-8 Heart Rate 1: 72 bpm Height: 6'2" [...] 1: 126/82 Code: 8480-6 BMI: 31.2 Code: 90255-4 Heart Rate 1: 84 bpm Height: 6'2" Respiratory Rate: 20 bpm SpO2: 94% Tempera ture: 37.0 (C) / 98.6 (F) Weight: 243 lbs 03/02/2018 Blood Pressure 1: 122/80 Code: 8480-6 BMI: 30.8 Code: 22231-9 Heart Rate 1: 74 bpm Height: 6'2" Respiratory Rate: 20 bpm SpO2: 95% Tempera ture: 37.1 (C) / 98.8 (F) Weight: 240 lbs 08/31/2017 Blood Pressure 1: 136/90 Code: 8480-6 Heart Rate 1: 76 bpm Respiratory Rate: 20 bpm Temperature: 36.7 (C) / 98.0 (F) Weight: 247 lbs 07/18/2017 Blood Pressure 1: 126/78 Code: 8480-6 BMI: 31.3 Code: 31348-1 Heart Rate 1: 72 bpm Height: 6'2" Respiratory Rate: 20 bpm SpO2: 94% Tempera ture: 37.0 (C) / 98.6 (F) Weight: 244 lbs 04/24/2017 Blood Pressure 1: 152/92 Code: 8480-6 BMI: 31.1 Code: 37316-4 Heart Rate 1: 74 bpm Height: 6'2" Respiratory Rate: 18 bpm SpO2: 98% Tempera ture: 35.9 (C) / 96.6 (F) Weight: 242 lbs 01/04/2017 Blood Pressure 1: 122/70 Code: 8480-6 BMI: 30.4 Code: 21393-6 Heart Rate 1: 88 bpm Height: 6'2" Respiratory Rate: 20 bpm SpO2: 96% Tempera ture: 36.6 (C) / 97.8 (F) Weight: 237 lbs 09/12/2016 Blood Pressure 1: 136/78 Code: 8480-6 Heart Rate 1: 82 bpm Respiratory Rate: 22 bpm SpO2: 94% Temperature: 36.4 (C) / 97.6 (F) We ight: 234 lbs 09/07/2016 Blood Pressure 1: 122/70 Code: 8480-6 BMI: 30.0 Code: 62891-9 Heart Rate 1: 88 bpm Height: 6'2" Respiratory Rate: 20 bpm SpO2: 94% Tempera ture: 36.6 (C) / 97.9 (F) Weight: 234 lbs 08/31/2015 Blood Pressure 1: 142/94 Code: 8480-6 BMI: 28.9 Code: 96068-9 Heart Rate 1: 92 bpm Height: 6'2" Respiratory Rate: 20 bpm Temperature: 36 .9 (C) / 98.5 (F) Weight: 225 lbs 04/14/2015 Blood Pressure 1: 126/80 Code: 8480-6 BMI: 28.0 Code: 27230-4 Heart Rate 1: 76 bpm Height: 6'2" Respiratory Rate: 20 bpm Temperature: 36 .6 (C) / 97.8 (F) Weight: 218 lbs 10/07/2014 Blood Pressure 1: 128/76 Code: 8480-6 BMI: 28.6 Code: 97554-3 Heart Rate 1: 84 bpm Height: 6'2" Respiratory Rate: 22 bpm Temperature: 36 .6 (C) / 97.9 (F) Weight: 223 lbs 05/01/2014 Blood Pressure 1: 126/68 Code: 8480-6 BMI: 28.2 Code: 35156-5 Heart Rate 1: 84 bpm Height: 6'2" Respiratory Rate: 20 bpm Temperature: 36 .8 (C) / 98.3 (F) Weight: 220 lbs 12/17/2013 Blood Pressure 1: 136/82 Code: 8480-6 BMI: 29.6 Code: 91239-9 Heart Rate 1: 76 bpm Height: 6'1" Respiratory Rate: 20 bpm Temperature: 36 .8 (C) / 98.2 (F) Weight: 224 lbs 12/11/2012 Blood Pressure 1: 122/86 Code: 8480-6 BMI: 30.5 Code: 26877-9 Heart Rate 1: 76 bpm Height: 6'1" Respiratory Rate: 20 bpm SpO2: 93% Tempera ture: 36.8 (C) / 98.2 (F) Weight: 231 lbs 12/04/2012 Blood Pressure 1: 124/86 Code: 8480-6 BMI: 30.5 Code: 33508-4 Heart Rate 1: 68 bpm Height: 6'1" Respiratory Rate: 20 bpm SpO2: 95% Tempera ture: 36.6 (C) / 97.8 (F) Weight: 231 lbs 08/14/2012 Blood Pressure 1: 126/70 Code: 8480-6 BMI: 29.4 Code: 84316-3 Heart Rate 1: 80 bpm Height: 6'1" Respiratory Rate: 20 bpm Temperature: 36 .8 (C) / 98.3 (F) Weight: 223 lbs 07/17/2012 Blood Pressure 1: 124/82 Code: 8480-6 BMI: 29.7 Code: 37150-5 Heart Rate 1: 80 bpm Height: 6'1" Respiratory Rate: 20 bpm Temperature: 36 .8 (C) / 98.2 (F) Weight: 225 lbs 03/20/2012 Blood Pressure 1: 124/78 Code: 8480-6 BMI: 29.3 Code: 21646-0 Heart Rate 1: 72 bpm Height: 6'1" Respiratory Rate: 20 bpm Temperature: 36 .6 (C) / 97.8 (F) Weight: 222 lbs 12/08/2011 Blood Pressure 1: 112/64 Code: 8480-6 BMI: 28.2 Code: 18217-3 Heart Rate 1: 78 bpm Height: 6'1" Temperature: 36.3 (C) / 97.4 (F) Weight: 214 lbs 08/11/2011 Blood Pressure 1: 128/70 Code: 8480-6 BMI: 27.6 Code: 66672-4 Heart Rate 1: 76 bpm Height: 6'1" [...] it Encounters Encounter Performer Location Codes Date ([id number]) OFFICE/OUTPATIENT VISIT EST Diagnosis: COPD (chronic obstructive pulmonary disease)[ICD10: J44.9] Diagnosis: Mixed hyperlipidemia[ICD10: E78.2] Diagnosis: Coronary artery disease[ICD10: I25.10] Diagnosis: 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: G57.92] Martita Black [employer] CPT-4: 29445 10/07/2019 ([id number]) OFFICE/OUTPATIENT VISIT EST Diagnosis: Cephalgia[ICD10: R51] Diagnosis: Family history of brain aneurysm[ICD10: Z82.49] Diagnosis: Other intervertebral disc degeneration, 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] Martita SIMONS [employer] CPT-4: 01105 07/01/2019 ([id number]) OFFICE/OUTPATIENT VISIT EST Diagnosis: 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] Diagnosis: Bilateral primary osteoarthritis of knee[ICD10: M17.0] Diagnosis: Nicotine dependence, unspecified, uncomplicated[ICD10: F17.200] Diagnosis: Mixed hyperlipidemia[ICD10: E78.2] Martita RENTERIA [facility] CPT-4: 07434 03/27/2019 ([id number]) OFFICE/OUTPATIENT VISIT EST Diagnosis: Mixed hyperlipidemia[ICD10: E78.2] Diagnosis: 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] Diagnosis: Other intervertebral disc degeneration, 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] Martita MCGOVERN Sofia [employer] CPT-4: 83056 12/25/2018 ([id number]) OFFICE/OUTPATIENT VISIT EST Diagnosis: Mixed hyperlipidemia[ICD10: E78.2] Diagnosis: Other fatigue[ICD10: R53.83] Diagnosis: Encounter for screening for malignant neoplasm of prostate[ICD10: Z12.5] Diagnosis: Primary osteoarthritis, 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] Diagnosis: Pain in thoracic spine[ICD10: M54.6] Martita FISCHER [facility] CPT-4: 51576 06/19/2018 ([id number]) OFFICE/OUTPATIENT VISIT EST Diagnosis: Encounter for therapeutic drug level monitoring[ICD10: Z51.81] Diagnosis: Pain in 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: M25.531] Diagnosis: Pain in right knee[ICD10: M25.561] Diagnosis: Pain in left knee[ICD10: M25.562] Marian Lam [facility] CPT-4: 02216 03/02/2018 ([id number]) OFFICE/OUTPATIENT VISIT EST Diagnosis: Mixed hyperlipidemia[ICD10: E78.2] Martita RENTERIA [facility] CPT-4: 73913 08/01/2017 ([id number]) OFFICE/OUTPATIENT VISIT EST Diagnosis: Other spondylosis with radiculopathy, cervical region[ICD10: M47.22] Diagnosis: Pain in 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: M25.531] Diagnosis: Mixed hyperlipidemia[ICD10: E78.2] Diagnosis: 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] Martita SIMONS [employer] [facility] CPT-4: 9921 3 07/18/2017 ([id number]) OFFICE/OUTPATIENT VISIT EST Diagnosis: Other intervertebral disc degeneration, 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] Diagnosis: Cervicalgia[ICD10: M54.2] Martita YOUNG [employer] [facility] CPT-4: 81324 04/24/2017 ([id number]) OFFICE/OUTPATIENT VISIT EST Diagnosis: Cervicalgia[ICD10: M54.2] Diagnosis: Other intervertebral disc degeneration, 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] Diagnosis: Mixed hyperlipidemia[ICD10: E78.2] Martita José Migueljessieodilon ALEMFAYE SOMERS [employer] [facility] CPT-4: 26762 01/04/2017 ([id number]) OFFICE/OUTPATIENT VISIT EST Diagnosis: Mixed hyperlipidemia[ICD10: E78.2] Diagnosis: Encounter for general adult medical examination with abnormal findings[ICD10: Z00.01] Martita SIMONS [employer] [facility] CPT-4: 73513 09/09/2016 ([id number]) PREV VISIT EST AGE 40-64 Diagnosis: Mixed hyperlipidemia[ICD10: E78.2] Diagnosis: Nicotine dependence, unspecified, uncomplicated[ICD10: F17.200] Diagnosis: Chronic obstructive pulmonary disease with acute lower respiratory infection[ICD10: J44.0] Diagnosis: Bilateral primary osteoarthritis of knee[ICD10: M17.0] Diagnosis: Pain in thoracic spine[ICD10: M54.6] Diagnosis: Pain in 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: M25.531] Diagnosis: Encounter for general adult medical examination with abnormal findings[ICD10: Z00.01] Martita Kristyn SIMONS [employer] CPT-4: 60292 09/07/2016 ([id number]) OFFICE/OUTPATIENT VISIT EST Diagnosis: Mixed hyperlipidemia[ICD10: E78.2] Martita RENTERIA Sofia SIMONS DO [facility] CPT-4: 98821 09/15/2015 ([id number]) OFFICE/OUTPATIENT VISIT EST Diagnosis: Acute bronchitis, unspecified[ICD10: J20.9] Diagnosis: Chronic obstructive pulmonary disease with acute lower respiratory infection[ICD10: J44.0] Diagnosis: Lumbago with sciatica, right side[ICD10: M54.41] Martita José Miguelfelix MARTITA Sofia SIMONS DO [facility] CPT-4: 34777 08/31/2015 ([id number]) OFFICE/OUTPATIENT VISIT EST Diagnosis: HYPERLIPIDEMIA NEC/NOS[ICD9: 272.4] Diagnosis: TOBACCO USE DISORDER[ICD9: 305.1] Diagnosis: Osteoarthritis, knee[ICD9: 715.96] Diagnosis: Chronic back pain[ICD9: 724.5] Martita FERRARALINE Rui SIMONS DO [facility] CPT-4: 72301 04/14/2015 ([id number]) OFFICE/OUTPATIENT VISIT EST Diagnosis: HYPERLIPIDEMIA NEC/NOS[ICD9: 272.4] Diagnosis: COPD[ICD9: 496] Diagnosis: ROUTINE MEDICAL EXAM[ICD9: V70.0] Martita SLAUGHTERQUELIN Genaro SIMONS DO [facility] CPT-4: 46446 11/10/2014 ([id number]) OFFICE/OUTPATIENT VISIT EST Diagnosis: Wrist pain[ICD9: 719.43] Diagnosis: Knee osteoarthritis[ICD9: 715.96] Diagnosis: Chronic back pain[ICD9: 724.5] Martita José Migueljessieodilon FERRARAMARTITA Rui SIMONS DO [facility] CPT-4: 03713 10/07/2014 ([id number]) OFFICE/OUTPATIENT VISIT EST Diagnosis: HYPERLIPIDEMIA NEC/NOS[ICD9: 272.4] Diagnosis: Chronic back pain[ICD9: 724.5] Diagnosis: OSTEOARTH NOS-L/LEG[ICD9: 715.96] Martita Lam Sofia SIMONS DO [facility] CPT-4: 96562 05/01/2014 ([id number]) OFFICE/OUTPATIENT VISIT EST Diagnosis: HYPERLIPIDEMIA NEC/NOS[ICD9: 272.4] Martita MOROCHO Sofia SIMONS [employer] [facility] CPT-4: 47182 04/29/2014 ([id number]) OFFICE/OUTPATIENT VISIT EST Diagnosis: ROUTINE MEDICAL EXAM[ICD9: V70.0] Diagnosis: HYPERLIPIDEMIA NEC/NOS[ICD9: 272.4] Martita SIMONS DO [facility] CPT-4: 27570 12/18/2013 OFFICE/OUTPATIENT VISIT EST Diagnosis: HYPERLIPIDEMIA NEC/NOS[ICD9: 272.4] Diagnosis: COPD[ICD9: 496] Diagnosis: Knee pain[ICD9: 719.46] Diagnosis: Wrist pain[ICD9: 719.43] Martita ROMERO [facility] CPT-4: 43847 12/17/2013 OFFICE/OUTPATIENT VISIT EST Diagnosis: COPD W/ ACUTE EXACERB[ICD9: 491.21] Diagnosis: COUGH[ICD9: 786.2] Martita SIMONS [employer] [facility] CPT-4: 00986 12/11/2012 ([id number]) OFFICE/OUTPATIENT VISIT EST Diagnosis: BRONCHITIS, ACUTE[ICD9: 466.0] Diagnosis: COPD exacerbation[ICD9: 491.21] Martita SIMONS [employer] [facility] CPT-4: 32735 12/04/2012 ([id number]) OFFICE/OUTPATIENT VISIT EST Diagnosis: DERMATITIS NOS[ICD9: 692.9] Diagnosis: TOBACCO USE DISORDER[ICD9: 305.1] Martita SOMERS [employer] [facility] CPT-4: 12053 08/14/2012 ([id number]) OFFICE/OUTPATIENT VISIT EST Diagnosis: TOBACCO USE DISORDER[ICD9: 305.1] Diagnosis: PAIN, LOWER BACK[ICD9: 724.2] Diagnosis: PAIN IN THORACIC SPINE[ICD9: 724.1] Diagnosis: DERMATITIS NOS[ICD9: 692.9] Diagnosis: HYPERLIPIDEMIA NEC/NOS[ICD9: 272.4] Martita SIMONS [employer] [facility] CPT-4: 67897 07/17/2012 ([id number]) OFFICE/OUTPATIENT VISIT EST Diagnosis: HYPERLIPIDEMIA NEC/NOS[ICD9: 272.4] Diagnosis: OSTEOARTH NOS-L/LEG[ICD9: 715.96] Diagnosis: JOINT PAIN-L/LEG[ICD9: 719.46] Diagnosis: AC EMBL SUPRFCL UP EXT[ICD9: 453.81] Martita FISCHER [employer] CPT-4: 90521 03/20/2012 ([id number]) OFFICE/OUTPATIENT VISIT EST Diagnosis: PAIN, LOWER BACK[ICD9: 724.2] Diagnosis: Superficial venous thrombosis of arm[ICD9: 453.81] Diagnosis: Trigger finger, left[ICD9: 727.03] Martita RENTERIA Sofia [employer] CPT-4: 29788 12/08/2011 OFFICE/OUTPATIENT VISIT EST Diagnosis: Knee pain[ICD9: 719.46] Diagnosis: Knee osteoarthritis[ICD9: 715.96] Diagnosis: Thoracic back pain[ICD9: 724.1] Diagnosis: HYPERLIPIDEMIA NEC/NOS[ICD9: 272.4] Martita MOROCHO [employer]ohail [employer] CPT-4: 50641 08/11/2011 ([id number]) OFFICE/OUTPATIENT VISIT, NEW Martita Simons KASANDRA KURTIS [employer] CPT-4: 15118 05/26/2010 Plan of Care Planned Activity Notes [...] R51 07/01/2019 Appointment: Martita Simons [facility] [phone] [facility] MED[facility] REVIEW 07/01/2019 Visit Diagnosis Plan: Atherosclerotic he art disease of algaaciq coronary artery without angina pectoris Discussion: Discussed [...] : E78.2 03/27/2019 Appointment: Martita Simons WPtel: [address] [place] [address] MEDICATION REVIEW 03/27/2019 Visit Diagnosis Plan: Other intervertebral disc degene ration, lumbar region Discussion: Stable on hydrocodone UDS done Follow Up: 3 months ICD-9 : 722.52 ICD-10 : M51.36 12/25/2018 Visit Diagnosis Plan: Atherosclerotic he art disease of algaaciq coronary artery without angina pectoris Discussion: Smoking Cessation Continue c urrent meds and fwup with cardiology ICD-9 : 414.00 ICD-10 : I25.10 12/25/2018 Appointment: Martita Simons WPtel: [address] [place], [place] [address] MEDICATION REVIEW 12/25/2018 Appointment: Martita Simons WPtel: [address] [place], [place] [phone] OFFICE SURGERY 08/22/2018 Visit Diagnosis Plan: Pain [...] : M19.031 06/19/2018 Appointment: Martita Simons WPtel: [address] [place] [address] MEDICATION REVIEW 06/19/2018 Appointment: Martita Simons WPtel: [address] [place], [place] [phone] [place] CANCELED 06/05/2018 Appointment: Martita Simons WPtel: [address] [place] [address] [place] CANCELED 05/08/2018 Visit Diagnosis Plan: Pain [...] ICD-10 : M25.562 03/02/2018 Appointment: Marian Juares [address] [place] [address] MEDICATION REVIEW 03/02/2018 Patient Education: Patient Medication Summary Completed 03/02/2018 Appointment: Martita Simons WPtel: [address] [place], [place] [phone] [place] UA 02/01/2018 Patient Education: Patient Medication Summary Completed 02/01/2018 Visit Diagnosis Plan: Other synovitis and tenosynoviti s, right hand Discussion: Right wrist cleansed with alcohol and betadine and injected laterally with 1cc 1% lidocaine with 20mg kenalog and 2mg dexamethasone, tolerated well with no complications, neosporin and bandage applied ICD-9 : 727.05 ICD-10 : M65.841 08/31/2017 Appointment: Martita Simons WPtel: [address] [place], [place] [phone] ACUTE ILLNESS 08/31/2017 Patient Education: Patient Medication Summary Completed 08/31/2017 Appointment: Martita Simons WPtel: [address] [place], [place] [phone] [place] LAB 08/01/2017 Patient Education: Patient Medication [...] : M47.22 07/18/2017 Appointment: Martita Simons WPtel: [address] [place], [place] [id number] MEDICATION REVIEW 07/18/2017 Patient Education: Patient Medication Summary Completed 07/18/2017 Visit Diagnosis Plan: Cervicalgia Discussion: Continue PT then fwup after done with PT ICD-9 : 723.1 ICD-10 : M54.2 04/24/2017 Visit Diagnosis Plan: Other intervertebral disc degene ration, lumbar region Discussion: Add PT For lumbar spine ICD-9 : 722.52 ICD-10 : M51.36 04/24/2017 Appointment: Martita Simons WPtel: [address] [place], [place] [phone] [place] MEDICATION REVIEW 04/24/2017 Patient Education: Patient Medication Summary Completed 04/24/2017 Patient Education: Patient Medication Summary Completed 03/22/2017 Care Plan: MRI NECK SPINE W/O DYE LOINC : 83873-8 Pending 03/22/2017 Visit Diagnosis Plan: Mixed hyperlipidemia [...] : M54.2 01/04/2017 Appointment: Martita Simons WPtel: [address] [place], [place] [id number] [place] 01/03 lm`sl 01/03-Confirmed MEDICATION REVIEW 01/04/2017 Patient Education: Patient Medication Summary Completed 01/04/2017 Visit Diagnosis Plan: Mixed hyperlipidemia Discussion: Lab discussed Restart lipitor/lifestyle change ICD-9 : 272.4 ICD-10 : E78.2 09/12/2016 Visit Diagnosis Plan: Other enthesopathies, not elsewh ere classified Discussion: Right wrist injection as above ICD-9 : 727.05 ICD-10 : M77.8 09/12/2016 Appointment: Martita Simons WPtel: [address] [place] [id number] [place] 09/12 confirmed `sl INJECTION 09/12/2016 Patient Education: Patient Medication Summary Completed 09/12/2016 Appointment: Martita Simons WPtel: [address] [place], [place] [id number] [place] LAB 09/09/2016 Patient Education: Patient Medication Summary Completed 09/09/2016 Visit Diagnosis Plan: Pain in right wrist Discussion: Will return for wrist injection ICD-9 : 719.43 ICD-10 : M25.531 09/07/2016 Visit Diagnosis Plan: Chronic obstructiv e pulmonary disease with acute lower respiratory infection Discussion: Smoking Cessation Symbicort Check CXR ICD-9 : 496 ICD-10 : J44.0 09/07/2016 Visit Diagnosis Plan: Encounter for [facility] adult medical examination with abnormal findings Discussion: Update fasting lab Follow Up: 4 months ICD-9 : V70.0 ICD-10 : Z00.01 09/07/2016 Visit Diagnosis Plan: Mixed hyperlipidemia Discussion: Check CMP, Lipids ICD-9 : 272.4 ICD-10 : E78.2 09/07/2016 Visit Diagnosis Plan: Nicotine dependence, unspecified , uncomplicated Discussion: Tobacco Abuse ICD-9 : 305.1 ICD-10 : F17.200 09/07/2016 Appointment: Martita Simons WPtel: [address] [place], [place] [phone] 09/06 confirmed~ Annual Well Visit 09/07/2016 Patient Education: Patient Medication Summary Completed 09/07/2016 Care Plan: CHEST X-RAY 2VW FRONTAL&LATL LOINC : 53589-1 Pending 09/07/2016 Visit Plan: [facility] [employer] Paperwork 08/05/2016 Patient Education: Patient Medication Summary Completed 08/05/2016 Appointment: Martita Simons WPtel: [facility] [place] UA 04/25/2016 Patient Education: Patient Medication Summary Completed 04/25/2016 Appointment: Martita Simons WPtel: [phone] [facility] [place] LAB 09/15/2015 Patient Education: Patient Medication Summary Completed 09/15/2015 Visit Plan: SVN with Albuterol 0.083% Q4 hrs and Q2hrs prn. Supportive care. Rest, Fluids, Tylenol/Motrin prn fever or bodyaches. Notify if worsening symptoms. Daily back stretches, moist heat, Biofreeze prn Flexeril/Prednisone Notify if low back pain persists--will need x-rays Patient seeing Chiropracter [employer] 08/31/2015 Appointment: Martita Simons WPtel: [facility] 08/28/15 vm cn 08/28/15 appt confirmed cn FOLLOW UP 08/31/2015 Patient Education: Patient Medication Summary Completed 08/31/2015 Appointment: Martita Simonstel: [address] [place], [place] [phone] UA 07/29/2015 Visit Plan: CMP, Lipids today Patient st opped chol meds 1week ago Continue hydrocodone 04/14/2015 Appointment: Martita Simons WPtel: [address] [place], [place] [phone] FOLLOW UP 04/14/2015 Patient Education: Patient Medication Summary Completed 04/14/2015 Appointment: Martita Simons WPtel: [address] [place], [place] [phone] LAB 11/10/2014 Patient Education: Patient Medication Summary Completed 11/10/2014 Visit Plan: Fasting lab at end september for Lipids/LFTs Continue hydrocodone at current dose Needs to be on low dose asprin 81mg daily With upcoming trip need to stop every 2hours and get out and stretch 10/07/2014 Appointment: Martita Simons WPtel: [address] [place], [place] [phone] FOLLOW UP 10/07/2014 Patient Education: Patient Medication Summary Completed 10/07/2014 Visit Plan: Lab discussed Will keep meds the same Keep hydrocodone at current dose--discussed schedule change on May 05 05/01/2014 Appointment: Martita Simons WPtel: [address] [place], [place] [phone] 04/29 confirmed when in for labs; asked if he still wanted a reminder call on Monday and he said no he would be here. FOLLOW UP 05/01/2014 Patient Education: Patient Medication Summary Completed 05/01/2014 Appointment: Martita Simons WPtel: [address] [place], [place] [phone] LAB 04/29/2014 Patient Education: Patient Medication Summary Completed 04/29/2014 Appointment: Martita Simons WPtel: [address] [place], [place] [phone] LAB 12/18/2013 Patient Education: Patient Medication Summary Completed 12/18/2013 Appointment: Martita Simosn WPtel: [address] [place], [place] [phone] 12/16 FOLLOW UP 12/17/2013 Patient Education: Patient Medication Summary Completed 12/17/2013 Visit Plan: Check CXR Start SVNs with al buterol 0.083% QID 12/11/2012 Appointment: Martita Simons WPtel: [address] [place] [address] FOLLOW UP 12/11/2012 Patient Education: Patient Medication Summary Completed 12/11/2012 Visit Plan: Zithromax for 1wk Prednisone for 1wk Symbicort 160/4.5 2p BID 12/04/2012 Appointment: Martita Simons WPtel: [address] [place] [address] ACUTE ILLNESS 12/04/2012 Patient Education: Patient Medication Summary Completed 12/04/2012 Visit Plan: Continue nystatin/TAC cream and add Lamisil for next month No lipitor for next month If rash persists then will need biopsy Trial of chantix--warned of suicidal ideation/depression Call in 1mo on finger lesion and chantix 08/14/2012 Appointment: Martita Simons WPtel: [address] [place], [place] [phone] 08/13 no answer...08/13 pt called back and confirmed OFFICE SURGERY 08/14/2012 Patient Education: Patient Medication Summary Completed 08/14/2012 Appointment: Martita Simons WPtel: [address] [place], [place] [phone] FOLLOW UP 07/17/2012 Patient Education: Patient Medication Summary Completed 07/17/2012 Appointment: Martita Simons WPtel: [address] [place] [address] Appointment was confirmed by CN on 06/29 12/5 pt called, in family, was in [place] just got yash k 07/03 - [facility] ACUTE ILLNESS 07/02/2012 Visit Plan: Obtain US results of KELVIN PINEDA coumadin as has been 3mos and start Aspirin 325mg daily Check CMP, Lipids, CBC, ESR, CRP today 03/20/2012 Appointment: Martita Simons WPtel: [address] [place], [place] [phone] FOLLOW UP 03/20/2012 Patient Education: Patient Medication Summary Completed 03/20/2012 Appointment: Martita Simons WPtel: [address] [place] [address] [place] Patient called 2 hours past appt. Said saw a specialist today and specialist is not concerned about blod clot so doesnt want to reschedule-CN FOLLOW UP 12/14/2011 Appointment: Martita Simnos WPtel: [address] [place], [place] [phone] FOLLOW UP 12/13/2011 Visit Plan: Continue coumadin--IM is fol lowing level--discussed will likely need 6-12wks Observe contusion to right lower back Fwup with ortho as scheduled 12/08/2011 Appointment: Martita Simons WPtel: [address] [place], [place] [phone] ACUTE ILLNESS 12/08/2011 Patient Education: Patient Medication Summary Completed 12/08/2011 Visit Plan: Check fasting lab when goes for pre-op lab including CMP, CBC, Lipids, TSH, Free T4, PSA, uric acid Needs colonoscopy Hydrocodone refilled #80 to [facility] 08/11/2011 Appointment: Martita Simons WPtel: [address] [place], [place] [phone] ESTABLISHED PATIENT 08/11/2011 Patient Education: Patient Medication Summary Completed 08/11/2011 Visit Plan: Obtain most recent lab resul ts Cont current meds Explained that cannot refill pain meds without current rx Discussed Synvisc injections and see ortho as oxycontin for knee arthritis is strong pain med 05/26/2010 Appointment: Martita Simons WPtel: [phone] [id number] NEW PATIENT 05/26/2010 Patient Education: Patient Medication Summary Completed 05/26/2010 Instructions Comment . Filled out [employer] Paperwork . SVN with Albuterol 0.083% Q4hrs [...]
--- OUTSIDE RECORDS SUMMARY | 2020-01-12 17:42 | XMS REPORT | CCD ---
Author Author Syd Simons D.O. Organization [facility] Address [address] [place] [address] Phone Care Team Providers Care Space Technologist Name Role Phone Martita Simons D.O., PP Unavailable CCM Unavailable Summary Purpose Interface Exchange Insurance Providers Payer name Policy type / Coverage type Covered constitution party ID Effective Begin Date Effective End Date [facility] Commercial Insurance [id number] Unknown Family history Brother Diagnosis Age At Onset No Family Disease Entered N/A Father Diagnosis Age At Onset No Family Disease Entered N/A Mother Diagnosis Age At Onset No Family Disease Entered N/A Social History Social History Element Codes Description Effective Dates Tobacco history SNOMED CT: 26406078 Current every day smoker 06/2012 Number of [...] hyperlipidemia ICD-9: 272.4 ICD-10: E78.2 12/17/2013 Active Cephalgia ICD-9: 784.0 ICD-10: R51 07/01/2019 [...] hydrocodone 10 mg-acetaminophen 325 mg tablet RxNorm: 316153 1 Tablet(s) PO Q6H as needed for pain 09/26/2019 No Stop Date Active (Response to an electronic controlled substance [facility]ill request [id number]|1|0|1) hydrocodone 10 mg-acetaminophen 325 mg tablet RxNorm: 134589 1 Tablet(s) PO Q6H as needed for pain 08/26/2019 09/25/2019 Inactive (Response to an electronic controlled substance refill request - RxReferenceNumber: [id number]|1|0|1) hydrocodone 10 mg-acetaminophen 325 mg tablet RxNorm: 467456 1 Tablet(s) PO Q6H as needed for pain 07/25/2019 08/25/2019 Inactive (Response to an electronic controlled substance refill request - RxReferenceNumber: [id number]|1|0|1) hydrocodone 10 mg-acetaminophen 325 mg tablet RxNorm: 954586 1 Tablet(s) PO Q6H as needed for pain 06/26/2019 07/24/2019 Inactive (Response to an electronic controlled substance refill request - RxReferenceNumber: [id number]|1|0|1) hydrocodone 10 mg-acetaminophen 325 mg tablet RxNorm: 715718 1 Tablet(s) PO Q6H as needed for pain 05/28/2019 06/25/2019 Inactive (Response to an electronic controlled substance refill request - RxReferenceNumber: [id number]|1|0|1) hydrocodone 10 mg-acetaminophen 325 mg tablet RxNorm: 465139 1 Tablet(s) PO Q6H as needed for pain 02/25/2019 05/27/2019 Inactive (Response to an electronic controlled substance refill request - RxReferenceNumber: [id number]|1|0|1) hydrocodone 10 mg-acetaminophen 325 mg tablet RxNorm: 116883 1 Tablet(s) PO Q6H as needed for pain 11/26/2018 02/24/2019 Inactive (Response to an electronic controlled substance refill request - RxReferenceNumber: [id number]|1|0|1) hydrocodone 10 mg-acetaminophen 325 mg tablet RxNorm: 376712 1 Tablet(s) PO Q6H as needed for pain 10/30/2018 11/25/2018 Inactive (Response to an electronic controlled substance refill request - RxReferenceNumber: [id number]|1|0|1) hydrocodone 10 mg-acetaminophen 325 mg tablet RxNorm: 239043 1 Tablet(s) PO Q6H as needed for pain 09/26/2018 10/29/2018 Inactive (Response to an electronic controlled substance refill request - RxReferenceNumber: [id number]|1|0|1) hydrocodone 10 mg-acetaminophen 325 mg tablet RxNorm: 579722 1 Tablet(s) PO Q6H as needed for pain 08/30/2018 09/25/2018 Inactive (Response to an electronic controlled substance refill request - RxReferenceNumber: [id number]|1|0|1) hydrocodone 10 mg-acetaminophen 325 mg tablet RxNorm: 493551 1 Tablet(s) PO Q6H as needed for pain 08/01/2018 08/29/2018 Inactive (Response to an electronic controlled substance refill request - RxReferenceNumber: [id number]|1|0|1) hydrocodone 10 mg-acetaminophen 325 mg tablet RxNorm: 040456 1 Tablet(s) PO Q6H as needed for pain 07/04/2018 07/31/2018 Inactive (Response to an electronic controlled substance refill request - RxReferenceNumber: [id number]|1|0|1) hydrocodone 10 mg-acetaminophen 325 mg tablet RxNorm: 053361 1 Tablet(s) PO Q6H as needed for pain 05/31/2018 07/03/2018 Inactive (Response to an electronic controlled substance refill request - RxReferenceNumber: [id number]|1|0|1) hydrocodone 10 mg-acetaminophen 325 mg tablet RxNorm: 136171 1 Tablet(s) PO Q6H as needed for pain 05/01/2018 05/30/2018 Inactive (Response to an electronic controlled substance refill request - RxReferenceNumber: [id number]|1|0|1) hydrocodone 10 mg-acetaminophen 325 mg tablet RxNorm: 866484 1 Tablet(s) PO Q6H as needed for pain 04/03/2018 04/30/2018 Inactive (Response to an electronic controlled substance refill request - RxReferenceNumber: [id number]|1|0|1) hydrocodone 10 mg-acetaminophen 325 mg tablet RxNorm: 307153 1 Tablet(s) PO Q6H as needed for pain 02/26/2018 04/02/2018 Inactive (Response to an electronic controlled substance refill request - RxReferenceNumber: [id number]|1|0|1) clotrimazole-betamethasone 1 %-0.05 % topical cream RxNorm: 068464 TOP As Directed CALL IF NO IMPROVEMENT IN 2 WEEKS 01/30/2018 01/29/2018 Inact kole [SAVINGS FOR UNINSURED PATIENTS -- BIN:[id number], PCN: [id number], Group: [id number], ID# [id number], Process claim through [employer], for questions: . THIS IS NOT INSURANCE.] hydrocodone 10 mg-acetaminophen 325 mg tablet RxNorm: 983875 1 Tablet(s) PO Q6H as needed for pain 01/29/2018 02/25/2018 Inactive (Response to an electronic controlled substance refill request - RxReferenceNumber: [id number]|1|0|1) hydrocodone 10 mg-acetaminophen 325 mg tablet RxNorm: 513398 1 Tablet(s) PO Q6H as needed for pain 12/28/2017 01/28/2018 Inactive (Response to an electronic controlled substance refill request - RxReferenceNumber: [id number]|1|0|1) hydrocodone 10 mg-acetaminophen 325 mg tablet RxNorm: 186181 1 Tablet(s) PO Q6H as needed for pain 11/29/2017 12/27/2017 Inactive (Response to an electronic controlled substance refill request - RxReferenceNumber: [id number]|1|0|1) hydrocodone 10 mg-acetaminophen 325 mg tablet RxNorm: 343422 1 Tablet(s) PO Q6H as needed for pain 11/02/2017 11/28/2017 Inactive (Response to an electronic controlled substance refill request - RxReferenceNumber: [id number]|1|0|1) hydrocodone 10 mg-acetaminophen 325 mg tablet RxNorm: 487031 1 Tablet(s) PO Q6H as needed for pain 10/02/2017 11/01/2017 Inactive (Response to an electronic controlled substance refill request - RxReferenceNumber: [id number]|1|0|1) hydrocodone 10 mg-acetaminophen 325 mg tablet RxNorm: 254443 1 Tablet(s) PO Q6H as needed for pain 08/30/2017 10/01/2017 Inactive (Response to an electronic controlled substance refill request - RxReferenceNumber: [id number]|1|0|1) hydrocodone 10 mg-acetaminophen 325 mg tablet RxNorm: 930389 1 Tablet(s) PO Q6H as needed for pain 08/01/2017 08/29/2017 Inactive (Response to an electronic controlled substance refill request - RxReferenceNumber: [id number]|1|0|1) hydrocodone 10 mg-acetaminophen 325 mg tablet RxNorm: 236180 1 Tablet(s) PO Q6H as needed for pain 06/26/2017 07/31/2017 Inactive (Response to an electronic controlled substance refill request - RxReferenceNumber: [id number]|1|0|1) hydrocodone 10 mg-acetaminophen 325 mg tablet RxNorm: 938995 1 Tablet(s) PO Q6H as needed for pain 06/26/2017 06/30/2019 Inactive (Response to an electronic controlled substance refill request - RxReferenceNumber: [id number]|1|0|1) hydrocodone 10 mg-acetaminophen 325 mg tablet RxNorm: 492005 1 Tablet(s) PO Q6H as needed for pain 03/27/2017 06/25/2017 Inactive (Response to an electronic controlled substance refill request - RxReferenceNumber: [id number]|1|0|1) hydrocodone 10 mg-acetaminophen 325 mg tablet RxNorm: 071940 1 Tablet(s) PO Q6H as needed for pain 02/23/2017 03/26/2017 Inactive (Response to an electronic controlled substance refill request - RxReferenceNumber: [id number]|1|0|1) hydrocodone 10 mg-acetaminophen 325 mg tablet RxNorm: 647661 1 Tablet(s) PO Q6H as needed for pain 01/24/2017 02/22/2017 Inactive (Response to an electronic controlled substance refill request - RxReferenceNumber: [id number]|1|0|1) hydrocodone 10 mg-acetaminophen 325 mg tablet RxNorm: 882106 1 Tablet(s) PO Q6H as needed for pain 12/27/2016 06/30/2019 Inactive (Response to an electronic controlled substance refill request - RxReferenceNumber: [id number]|1|0|1) hydrocodone 10 mg-acetaminophen 325 mg tablet RxNorm: 184796 1 Tablet(s) PO Q6H as needed for pain 12/27/2016 01/23/2017 Inactive (Response to an electronic controlled substance refill request - RxReferenceNumber: [id number]|1|0|1) hydrocodone 10 mg-acetaminophen 325 mg tablet RxNorm: 987513 1 Tablet(s) PO Q6H as needed for pain 11/23/2016 12/26/2016 Inactive (Response to an electronic controlled substance refill request - RxReferenceNumber: [id number]|1|0|1) hydrocodone 10 mg-acetaminophen 325 mg tablet RxNorm: 761436 1 Tablet(s) PO Q6H as needed for pain 10/20/2016 11/22/2016 Inactive (Response to an electronic controlled substance refill request - RxReferenceNumber: [id number]|1|0|1) hydrocodone 10 mg-acetaminophen 325 mg tablet RxNorm: 765793 1 Tablet(s) PO Q6H as needed for pain 09/26/2016 10/19/2016 Inactive (Response to an electronic controlled substance refill request - RxReferenceNumber: [id number]|1|0|1) hydrocodone 10 mg-acetaminophen 325 mg tablet RxNorm: 566516 1 Tablet(s) PO Q6H as needed for pain 07/27/2016 09/25/2016 Inactive (Response to an electronic controlled substance refill request - RxReferenceNumber: [id number]|1|0|1) hydrocodone 10 mg-acetaminophen 325 mg tablet RxNorm: 772884 1 Tablet(s) PO Q6H as needed for pain 05/04/2016 07/26/2016 Inactive (Response to an electronic controlled substance refill request - RxReferenceNumber: [id number]|1|0|1) hydrocodone 10 mg-acetaminophen 325 mg tablet RxNorm: 334049 1 Tablet(s) PO Q6H as needed for pain 03/31/2016 05/03/2016 Inactive (Response to an electronic controlled substance refill request - RxReferenceNumber: [id number]|1|0|1) citalopram 10 mg tablet RxNorm: 455795 1 Tablet(s) PO QD 09/28/2015 0 09/27/2015 Inactive citalopram 10 mg tablet RxNorm: 984329 1 Tablet(s) PO QD 09/28/2015 0 09/06/2016 Inactive Wellbutrin SR 150 mg tablet,sustained-release RxNorm: 394349 1 Tablet(s) PO QAM 09/25/2015 09/06/2016 Inactive prednisone 20 mg tablet RxNorm: 222807 1 Tablet(s) PO T ID for 3 days then 1 po BID for 3 days then one daily for 3 days 08/31/2015 09/06/2016 Inactiv e cyclobenzaprine 10 mg tablet RxNorm: 790976 1 Tablet(s) PO TID as needed for muscle spasm 08/31/2015 07/17/2017 Inactive hydrocodone 10 mg-acetaminophen 325 mg tablet RxNorm: 878623 1 Tablet(s) PO Q6H as needed for pain 08/26/2015 03/30/2016 Inactive (Response to an electronic controlled substance refill request - RxReferenceNumber: [id number]|1|0|1) hydrocodone 10 mg-acetaminophen 325 mg tablet RxNorm: 208373 1 Tablet(s) PO Q6H as needed for pain 07/28/2015 08/25/2015 Inactive (Response to an electronic controlled substance refill request - RxReferenceNumber: [id number]|1|0|1) hydrocodone 10 mg-acetaminophen 325 mg tablet RxNorm: 370200 1 Tablet(s) PO Q6H as needed for pain 06/23/2015 07/27/2015 Inactive (Response to an electronic controlled substance refill request - RxReferenceNumber: [id number]|1|0|1) hydrocodone 10 mg-acetaminophen 325 mg tablet RxNorm: 812567 1 Tablet(s) PO Q6H as needed for pain 05/21/2015 06/22/2015 Inactive (Response to an electronic controlled substance refill request - RxReferenceNumber: [id number]|1|0|1) azithromycin 250 mg tablet RxNorm: 411011 2 Tablet(s) P O on day one, then one tablet on days 2 - 5 04/27/2015 08/30/2015 Inactive hydrocodone 10 mg-acetaminophen 325 mg tablet RxNorm: 313930 1 Tablet(s) PO Q6H as needed for pain 03/25/2015 05/20/2015 Inactive (Response to an electronic controlled substance refill request - RxReferenceNumber: [id number]|1|0|1) hydrocodone 10 mg-acetaminophen 325 mg tablet RxNorm: 489376 1 Tablet(s) PO Q6H as needed for pain 02/24/2015 03/24/2015 Inactive (Response to an electronic controlled substance refill request - RxReferenceNumber: [id number]|1|0|1) hydrocodone 10 mg-acetaminophen 325 mg tablet RxNorm: 509153 1 Tablet(s) PO Q6H as needed for pain 01/23/2015 02/23/2015 Inactive (Response to an electronic controlled substance refill request - RxReferenceNumber: [id number]|1|0|1) hydrocodone 10 mg-acetaminophen 325 mg tablet RxNorm: 534372 1 Tablet(s) PO Q6H as needed for pain 12/23/2014 01/22/2015 Inactive (Response to an electronic controlled substance refill request - RxReferenceNumber: [id number]|1|0|1) hydrocodone 10 mg-acetaminophen 325 mg tablet RxNorm: 303522 1 Tablet(s) PO Q6H as needed for pain 11/24/2014 12/22/2014 Inactive (Response to an electronic controlled substance refill request - RxReferenceNumber: [id number]|1|0|1) hydrocodone 10 mg-acetaminophen 325 mg tablet RxNorm: 484149 1 Tablet(s) PO Q6H as needed for pain 10/28/2014 11/23/2014 Inactive (Response to an electronic controlled substance refill request - RxReferenceNumber: [id number]|1|0|1) hydrocodone 10 mg-acetaminophen 325 mg tablet RxNorm: 474245 1 Tablet(s) PO Q6H as needed for pain 09/25/2014 10/27/2014 Inactive (Response to an electronic controlled substance refill request - RxReferenceNumber: [id number]|1|0|1) Lipitor 80 mg tablet RxNorm: 142144 1 Tablet(s) PO QHS 09/24/2014 Inactive hydrocodone 10 mg-acetaminophen 325 mg tablet RxNorm: 203179 1 Tablet(s) PO Q6H as needed for pain 07/30/2014 09/24/2014 Inactive (Response to an electronic controlled substance refill request - RxReferenceNumber: [id number]|1|0|1) hydrocodone 10 mg-acetaminophen 325 mg tablet RxNorm: 304175 1 Tablet(s) PO Q6H as needed for pain 05/27/2014 07/29/2014 Inactive (Response to an electronic controlled substance refill request - RxReferenceNumber: [id number]|1|0|1) clotrimazole-betamethasone 1 %-0.05 % topical cream RxNorm: 508156 TOP As Directed 05/01/2014 08/30/2015 Inactive [SAVINGS FOR UNI NSURED PATIENTS -- BIN:[id number], PCN: ASPROD1, Group: [id number], ID# [id number], Process claim through [employer], for questions: . THIS IS NOT INSURANCE.] Lipitor 80 mg tablet RxNorm: 439066 1 Tablet(s) PO QHS 04/28/2014 Inactive hydrocodone 10 mg-acetaminophen 325 mg tablet RxNorm: 373631 1 Tablet(s) PO Q6H as needed for pain 04/28/2014 05/26/2014 Inactive (Response to an electronic controlled substance refill request - RxReferenceNumber: [id number]|1|0|1) hydrocodone 10 mg-acetaminophen 325 mg tablet RxNorm: 333721 1 Tablet(s) PO Q6H as needed for pain 03/27/2014 04/27/2014 Inactive (Response to an electronic controlled substance refill request - RxReferenceNumber: [id number]|1|0|1) hydrocodone 10 mg-acetaminophen 325 mg tablet RxNorm: 978891 1 Tablet(s) PO Q6H as needed for pain 12/20/2013 12/20/2013 Inactive (Appended: Co ntrolled substance eRx refill - RxReferenceNumber: [id number]|1|0|1) hydrocodone 10 mg-acetaminophen 325 mg tablet RxNorm: 913676 TAKE 1 TABLET BY MOUTH EVERY 6 HOURS NEEDED FOR PAIN 12/20/2013 01/12/2014 Inactive (Response to an electronic controlled substance refill request - RxReferenceNumber: [id number]|1|0|1) hydrocodone 10 mg-acetaminophen 325 mg tablet RxNorm: 927500 1 Tablet(s) PO Q6H as needed for pain 09/03/2013 12/19/2013 Inactive (Appended: Co ntrolled substance eRx refill - RxReferenceNumber: [id number]|1|0|1) hydrocodone 10 mg-acetaminophen 325 mg tablet RxNorm: 126013 Tablet(s) PO TAKE 1 TABLET BY MOUTH EVERY 6 HOURS NEEDED FOR PAIN 08/08/2013 09/03/2013 Inactive (Appended: Controlled substance eRx refill - RxReferenceNumber: [id number]|1|0|1) hydrocodone 10 mg-acetaminophen 325 mg tablet RxNorm: 799518 Tablet(s) PO TAKE 1 TABLET BY MOUTH EVERY 6 HOURS NEEDED FOR PAIN 07/11/2013 08/07/2013 Inactive (Appended: Controlled substance eRx refill - RxReferenceNumber: [id number]|1|0|1) hydrocodone 10 mg-acetaminophen 325 mg tablet RxNorm: 928194 2 Tablet(s) PO TAKE 1 TABLET BY MOUTH EVERY 6 HOURS NEEDED FOR PAIN 06/12/2013 3 Inactive (Appended: Controlled substance eRx ref ill - RxReferenceNumber: [id number]|1|0|1) hydrocodone 10 mg-acetaminophen 325 mg tablet RxNorm: 407247 2 1 Tablet(s) PO Q6H NEEDED FOR PAIN 05/15/2013 06/12/2013 Inactive (Appended: Co ntrolled substance eRx refill - RxReferenceNumber: [id number]|1|0|1) hydrocodone 10 mg-acetaminophen 325 mg tablet RxNorm: 786450 2 Tablet(s) PO TAKE 1 TO 2 TABLETS BY MOUTH EVERY 6 HOURS NEEDED FOR PAIN 04/18/2013 No Stop Date Active (Appended: Controlled substa nce eRx refill - RxReferenceNumber: [id number]|1|0|1) hydrocodone 10 mg-acetaminophen 325 mg tablet RxNorm: 860853 2 Tablet(s) PO TAKE 1 TO 2 TABLETS BY MOUTH EVERY 6 HOURS NEEDED FOR PAIN 03/19/2013 No Stop Date Active (Appended: Controlled substa nce eRx refill - RxReferenceNumber: [id number]|1|0|1) hydrocodone 10 mg-acetaminophen 325 mg tablet RxNorm: 256058 2 Tablet(s) PO TAKE 1 TO 2 TABLETS BY MOUTH EVERY 6 HOURS NEEDED FOR PAIN 02/06/2013 Inactive (Appended: Controlled substance eRx refi ll - RxReferenceNumber: [id number]|1|0|1) hydrocodone 10 mg-acetaminophen 325 mg tablet RxNorm: 602562 2 Tablet(s) PO TAKE 1 TO 2 TABLETS BY MOUTH EVERY 6 HOURS NEEDED FOR PAIN 01/08/201304/2013 Inactive (Appended: Controlled substance eRx ref ill - RxReferenceNumber: [id number]|1|0|1) Zithromax 250 mg tablet RxNorm: 531367 2 Tablet(s) PO QD 12/04/2012 0 12/10/2012 Inactive prednisone 20 mg tablet RxNorm: 107164 1 Tablet(s) PO BID 12/04/2012 12/10/2012 Inactive atorvastatin 40 mg tablet RxNorm: 777442 1 Tablet(s) PO QD 11/09/19 13 12/17/2013 Inactive hydrocodone 10 mg-acetaminophen 325 mg tablet RxNorm: 329118 2 Tablet(s) PO TAKE 1 TO 2 TABLETS BY MOUTH EVERY 6 HOURS NEEDED FOR PAIN 10/18/201205/2013 Inactive (Appended: Controlled substance eRx ref ill - RxReferenceNumber: [id number]|1|0|1) hydrocodone 10 mg-acetaminophen 325 mg tablet RxNorm: 957458 2 1-2 Tablet(s) PO Q6H as needed for pain 09/06/2012 10/18/2012 Inactive Lamisil 250 mg tablet RxNorm: 185952 1 Tablet(s) PO QD 08/14/2012 Inactive atorvastatin 40 mg tablet RxNorm: 241639 1 Tablet(s) PO QD 08/08/19 13 11/05/2012 Inactive prednisone 20 mg tablet RxNorm: 018710 1 Tablet(s) PO BID 07/17/2012 07/23/2012 Inactive Wellbutrin SR 150 mg tablet,extended release RxNorm: 469435 1 T ablet(s) PO BID 07/17/2012 08/13/2012 Inactive meloxicam 15 mg tablet RxNorm: 901750 1 Tablet(s) PO QD for pain 07/16/2012 Inactive atorvastatin 40 mg tablet RxNorm: 557919 1 Tablet(s) PO QD 06/27/20 12 08/07/2012 Inactive hydrocodone-acetaminophen 10 mg-325 mg tablet RxNorm: 954998 2 1-2 Tablet(s) PO Q6H as needed for pain 05/23/2012 No Stop Date Active hydrocodone-acetaminophen 10 mg-325 mg tablet RxNorm: 833727 2 1-2 Tablet(s) PO Q6H as needed for pain 04/24/2012 No Stop Date Active hydrocodone-acetaminophen 10 mg-325 mg tablet RxNorm: 030047 2 1-2 Tablet(s) PO Q6H as needed for pain 02/08/2012 No Stop Date Active hydrocodone-acetaminophen 10 mg-325 mg Tab RxNorm: 9571465 1-2 Tablet(s) PO Q6H as needed for pain 01/02/2012 No Stop Date Active hydrocodone-acetaminophen 10 mg-325 mg Tab RxNorm: 5484890 1-2 Tablet(s) PO Q6H as needed for pain 11/29/2011 No Stop Date Active hydrocodone-acetaminophen 10 mg-325 mg Tab RxNorm: 4160849 1-2 Tablet(s) PO Q6H as needed for pain 10/24/2011 No Stop Date Active hydrocodone-acetaminophen 10 mg-325 mg Tab RxNorm: 9415097 1-2 Tablet(s) PO Q6H as needed for pain 10/07/2011 No Stop Date Active simvastatin 40 mg Tab RxNorm: 523618 1 Tablet(s) PO QHS 08/11/2011 Inactive clopidogrel 75 mg tablet RxNorm: 824559 1 Tablet(s) PO QD No Start Da te Active metoprolol succinate ER 25 mg tablet,extended release 24 hr RxNorm: 055035 1 Tablet(s) PO QD No Start Date Active Symbicort 160 mcg-4.5 mcg/actuation HFA aerosol inhaler RxNo rm: 8901261 2 INH QD No Start Date Active atorvastatin 40 mg tablet RxNorm: 670527 1 Tablet(s) PO QD No Start D ate Active aspirin 81 mg tablet RxNorm: 212271 1 Tablet(s) PO QD No Start Date Active Vitamin D3 2,000 unit tablet RxNorm: 325895 3 Tablet(s) PO No Start D ate Active lisinopril 5 mg tablet RxNorm: 307178 1 Tablet(s) PO QD No Start Date Active hydrocodone-acetaminophen 10 mg-325 mg Tab RxNorm: 9775767 1-2 Tablet(s) PO Q6H as needed for pain No Start Date 10/06/2011 Inactive Wellbutrin SR 150 mg tablet,sustained-release RxNorm: 344743 1 Tablet(s) PO QAM No Start Date 09/24/2015 Inactive OxyContin 15 mg 12 hr Tab RxNorm: 5589086 1 Tablet(s) PO BID No Sta rt Date 08/10/2011 Inactive warfarin 5 mg Tab RxNorm: 568483 1 Tablet(s) PO QD No Start Date 03/01 Inactive albuterol sulfate 1.25 mg/3 mL Neb Solution RxNorm: 609232 1 Unit Dose INH prn wheezing, congestion, shortness of breath No Start Date 04/30/2014 Inacti ve azithromycin 250 mg tablet RxNorm: 688999 2 Tablet(s) P O on day one, then one tablet on days 2 - 5 No Start Date 04/26/2015 Inactive warfarin 10 mg Tab RxNorm: 301909 1 Tablet(s) PO QOD No Start Date Inactive Symbicort Inhl RxNorm: Inhalation No Start Date 12/16/2013 Inactive Trilipix 135 mg Cap RxNorm: 396714 1 Capsule(s) PO QD No Start Date 0 12/07/2011 Inactive Chantix Starting Month Box 0.5 mg (11)-1 mg (42) table ts in dose pack RxNorm: 858370 Tablet(s) PO as directed No Start Date 12/03/2012 Inactive clotrimazole-betamethasone 1 %-0.05 % topical cream RxNorm: 907938 TOP As Directed No Start Date 04/30/2014 Inactive nystatin-triamcinolone 100,000 unit/g-0.1 % Topical Cream Rx Norm: 7123109 Application TOP BID for 2-4weeks No Start Date 12/03/2012 Inactive Lovastatin 20 mg Tab RxNorm: 056086 1 Tablet(s) PO QHS No Start Date 08/10/2011 Inactive krill oil oral RxNorm: 27906 oral No Start Date 06/30/2019 Inacti ve warfarin 7.5 mg Tab RxNorm: 794896 1 Tablet(s) PO QOD No Start Date 1 09/16/2011 Inactive Lipitor 80 mg tablet RxNorm: 245526 1 Tablet(s) PO QHS No Start Date 04/27/2014 Inactive simvastatin 40 mg Tab RxNorm: 246122 1 Tablet(s) PO QHS No Start Da te 08/10/2011 Inactive Gemfibrozil 600 mg Tab RxNorm: 230863 1 Tablet(s) PO QHS No Start D ate 08/10/2011 Inactive Medication Administered No Medication Administered data Immunizations No Immunization data Results Observation Observation Code Item Item Code Result Date [facility] COMPLETE BLOOD COUNT [id number] WBC 9.7 10e9/L 06/19/20 18 Unknown COMPLETE BLOOD COUNT [id number] RBC 5.35 10e12/L 2017 Unknown COMPLETE BLOOD COUNT [id number] HEMOGLOBIN 17.1 g/dL 06/19/20 18 Unknown COMPLETE BLOOD COUNT [id number] HEMATOCRIT 52.4 % 06/19/20 18 Unknown COMPLETE BLOOD COUNT [id number] MCV 97.9 fL 8 Unknown COMPLETE BLOOD COUNT [id number] MCH 32.0 pg 8 Unknown COMPLETE BLOOD COUNT [id number] MCHC 32.6 g/dL 8 Unknown COMPLETE BLOOD COUNT [id number] PLATELET COUNT 257 10e9/L Unknown COMPLETE BLOOD COUNT [id number] Mean Plt Volume 11.2 fL Unknown COMPLETE BLOOD COUNT [id number] Neut Auto 54.6 % 8 Unknown COMPLETE BLOOD COUNT [id number] Lymph Auto 33.3 % 06/19/20 18 Unknown COMPLETE BLOOD COUNT [id number] Gentry Auto 9.1 % 8 Unknown COMPLETE BLOOD COUNT [id number] RDW 14.4 % 8 Unknown COMPLETE BLOOD COUNT [id number] Eos Auto 2.6 % 8 Unknown COMPLETE BLOOD COUNT [id number] Baso Auto 0.4 % 8 Unknown COMPLETE BLOOD COUNT [id number] Neutrophil Abs 5.30 10e9/L Unknown COMPLETE BLOOD COUNT [id number] Lymphocyte Abs 3.23 10e9/L Unknown COMPLETE BLOOD COUNT [id number] Monocyte Abs 0.88 10e9/L 06/01 Unknown COMPLETE BLOOD COUNT [id number] Eosinophil Abs 0.25 10e9/L Unknown COMPLETE BLOOD COUNT [id number] RDW-SD 51.8 fL 8 Unknown COMPLETE BLOOD COUNT [id number] Basophil Abs 0.04 10e9/L 06/01 Unknown LIPID [facility] 56586 Cholesterol 222 mg/dL 06/19/2018 Unkno wn LIPID GROUP 66768 Triglyceride 111 mg/dL 06/19/2018 Unkn own LIPID GROUP 99308 HDL CHOLESTEROL 37 mg/dL 06/19/2018 U nknown LIPID GROUP 46846 Chol/HDL Ratio 6.00 ratio 06/19/2018 U nknown LIPID GROUP 17294 NON-HDL Chol 185 mg/dL 06/19/2018 Unkn own LIPID GROUP 40558 LDL Cholesterol 163 mg/dL 06/19/2018 U nknown VITAMIN B 12 32928 VITAMIN B12 532 pg/mL 06/19/2018 Unkn own THYROID STIMULATING HORMONE 01996 TSH 2.685 uIU/mL 06/19/2018 Unknown COMPREHENSIVE METABOLIC 35262 AST 15 U/L 2017 Unknown COMPREHENSIVE METABOLIC 79191 ALT 21 U/L 2017 Unknown COMPREHENSIVE METABOLIC 88548 BUN 16 mg/dL 2017 Unknown COMPREHENSIVE METABOLIC 51595 ALBUMIN 4.1 g/dL 2017 Unknown COMPREHENSIVE METABOLIC 46415 CHLORIDE 99 mmol/L 2017 Unknown COMPREHENSIVE METABOLIC 08623 Bili Total 0.4 mg/dL 06/19 Unknown COMPREHENSIVE METABOLIC 44039 ALK PHOS 43 U/L 2017 Unknown COMPREHENSIVE METABOLIC 82643 SODIUM 136 mmol/L 06/19 Unknown COMPREHENSIVE METABOLIC 79624 CREATININE 0.82 mg/dL 06/01 Unknown COMPREHENSIVE METABOLIC 98037 CALCIUM 9.5 mg/dL 2017 Unknown COMPREHENSIVE METABOLIC 72820 POTASSIUM 5.2 mmol/L 06/19 Unknown COMPREHENSIVE METABOLIC 80407 Total Protein 6.7 g/dL Unknown COMPREHENSIVE METABOLIC 37938 Glucose 81 mg/dL 2017 Unknown COMPREHENSIVE METABOLIC 66151 Bicarbonate 30 mmol/L 06/01 Unknown COMPREHENSIVE METABOLIC 22191 AGAP 7 mmol/L 2017 Unknown FREE T4 16010 T4 Free 0.85 ng/dL 06/19/2018 Unknown GFR CALC 4064969 GFR Non Afr Amr >60 mL/min 06/19/2018 Un known GFR CALC 3806288 GFR Afr Amr >60 mL/min 06/19/2018 Unknow n VITAMIN D TOTAL (25 HYDROXY) 00021 Vitamin D 25 OH 24.1 ng/mL 06/19/2018 Unknown PSA EQUIMOLAR TROY 64356 PSA Total 0.88 ng/mL 8 Unknown GFR CALC 7214713 GFR Non Afr Amr >60 mL/min 09/09/2016 Un known GFR CALC 6896846 GFR Afr Amr >60 mL/min 09/09/2016 Unknow n COMPLETE BLOOD COUNT 5812274 WBC 11.7 10e9/L 017 Unknown COMPLETE BLOOD COUNT 4363877 RBC 5.54 10e12/L 2016 Unknown COMPLETE BLOOD COUNT 4083241 HEMOGLOBIN 17.6 g/dL 09/09/19 17 Unknown COMPLETE BLOOD COUNT 1978893 HEMATOCRIT 52.3 % 09/09/19 17 Unknown COMPLETE BLOOD COUNT 1754991 MCV 94.4 fL 7 Unknown COMPLETE BLOOD COUNT 4911779 MCH 31.8 pg 7 Unknown COMPLETE BLOOD COUNT 6041077 MCHC 33.7 g/dL 7 Unknown COMPLETE BLOOD COUNT 7539608 PLATELET COUNT 259 10e9/L 04/2017 Unknown COMPLETE BLOOD COUNT 3054849 Mean Plt Volume 11.2 fL 04/2017 Unknown COMPLETE BLOOD COUNT 4762660 Neut Auto 53.6 % 7 Unknown COMPLETE BLOOD COUNT 3311180 Lymph Auto 36.2 % 09/09/19 17 Unknown COMPLETE BLOOD COUNT 3946236 Gentry Auto 7.9 % 7 Unknown COMPLETE BLOOD COUNT 4126280 RDW 14.2 % 7 Unknown COMPLETE BLOOD COUNT 1017171 Eos Auto 2.1 % 7 Unknown COMPLETE BLOOD COUNT 6272117 Baso Auto 0.2 % 7 Unknown COMPLETE BLOOD COUNT 3374275 Neutrophil Abs 6.27 10e9/L Unknown COMPLETE BLOOD COUNT 3847797 Lymphocyte Abs 4.24 10e9/L Unknown COMPLETE BLOOD COUNT 3924269 Monocyte Abs 0.92 10e9/L 08/31 Unknown COMPLETE BLOOD COUNT 6680598 Eosinophil Abs 0.25 10e9/L Unknown COMPLETE BLOOD COUNT 3280384 RDW-SD 48.1 fL 7 Unknown COMPLETE BLOOD COUNT 6566068 Basophil Abs 0.02 10e9/L 08/31 Unknown COMPREHENSIVE METABOLIC 57792 AST 19 U/L 2016 Unknown COMPREHENSIVE METABOLIC 93121 ALT 25 U/L 2016 Unknown COMPREHENSIVE METABOLIC 22073 BUN 16 mg/dL 2016 Unknown COMPREHENSIVE METABOLIC 25605 ALBUMIN 4.8 g/dL 2016 Unknown COMPREHENSIVE METABOLIC 63029 CHLORIDE 100 mmol/L 09/09 Unknown COMPREHENSIVE METABOLIC 76288 Bili Total 0.7 mg/dL 09/09 Unknown COMPREHENSIVE METABOLIC 62510 ALK PHOS 50 U/L 2016 Unknown COMPREHENSIVE METABOLIC 99855 SODIUM 136 mmol/L 09/09 Unknown COMPREHENSIVE METABOLIC 25032 CREATININE 0.98 mg/dL 08/31 Unknown COMPREHENSIVE METABOLIC 36366 CALCIUM 9.8 mg/dL 2016 Unknown COMPREHENSIVE METABOLIC 19291 POTASSIUM 4.6 mmol/L 09/09 Unknown COMPREHENSIVE METABOLIC 00271 Total Protein 7.5 g/dL Unknown COMPREHENSIVE METABOLIC 57851 Glucose 104 mg/dL 2016 Unknown COMPREHENSIVE METABOLIC 16465 Bicarbonate 27 mmol/L 08/31 Unknown COMPREHENSIVE METABOLIC 25732 AGAP 9 mmol/L 2016 Unknown FREE T4 53803 T4 Free 1.04 ng/dL 09/09/2016 Unknown THYROID STIMULATING HORMONE 52217 TSH 1.618 uIU/mL 09/09/2016 Unknown LIPID GROUP 71548 Cholesterol 251 mg/dL 09/09/2016 Unkno wn LIPID GROUP 65752 Triglyceride 153 mg/dL 09/09/2016 Unkn own LIPID GROUP 74729 HDL CHOLESTEROL 33 mg/dL 09/09/2016 U nknown LIPID GROUP 65216 Chol/HDL Ratio 7.61 ratio 09/09/2016 U nknown LIPID GROUP 44201 NON-HDL Chol 218 mg/dL 09/09/2016 Unkn own LIPID GROUP 41479 LDL Cholesterol 187 mg/dL 09/09/2016 U nknown LIPID GROUP 34477 HDL TEST 39 MG/DL 09/15/2015 Unknown LIPID GROUP 38200 TRIG 106 MG/DL 09/15/2015 Unknown LIPID GROUP 25690 TEST LDL 152 MG/DL 09/15/2015 Unknown LIPID GROUP 08126 CHOL 212 MG/DL 09/15/2015 Unknown LIPID GROUP 29265 RCHOL/HDL 5.44 RATIO 09/15/2015 Unknow n LIPID GROUP 24081 NON-HDL CH 173 MG/DL 09/15/2015 Unknow n GFR CALC 7814243 GFR AA >60 ML/MIN 09/15/2015 Unknown GFR CALC 4979994 GFR NON-AA >60 ML/MIN 09/15/2015 Unknown COMPREHENSIVE METABOLIC 74663 AST 18 U/L 2015 Unknown COMPREHENSIVE METABOLIC 02725 ALT 28 IU/L 2015 Unknown COMPREHENSIVE METABOLIC 16308 BUN 14 MG/DL 2015 Unknown COMPREHENSIVE METABOLIC 41125 ALBUMIN 4.2 GM/DL 2015 Unknown COMPREHENSIVE METABOLIC 09346 CHLORIDE 101 MMOL/L 09/15 Unknown COMPREHENSIVE METABOLIC 75362 BILI TOT 0.6 MG/DL 2015 Unknown COMPREHENSIVE METABOLIC 82689 ALK PHOS 48 U/L 2015 Unknown COMPREHENSIVE METABOLIC 95824 SODIUM 135 MMOL/L 09/15 Unknown COMPREHENSIVE METABOLIC 08774 CREATININE 0.91 MG/DL 08/31 Unknown COMPREHENSIVE METABOLIC 60125 CALCIUM 9.2 MG/DL 2015 Unknown COMPREHENSIVE METABOLIC 05762 POTASSIUM 4.6 MMOL/L 09/15 Unknown COMPREHENSIVE METABOLIC 58576 PROT TOT 6.6 GM/DL 2015 Unknown COMPREHENSIVE METABOLIC 94820 Glucose 97 MG/DL 2015 Unknown COMPREHENSIVE METABOLIC 51364 BICARB 27 MMOL/L 2015 Unknown COMPREHENSIVE METABOLIC 58476 ANION GAP 7 MEQ/L 2015 Unknown LIPID GROUP 36154 HDL TEST 35 MG/DL 04/14/2015 Unknown LIPID GROUP 59167 TRIG 135 MG/DL 04/14/2015 Unknown LIPID GROUP 40756 TEST LDL 153 MG/DL 04/14/2015 Unknown LIPID GROUP 06355 CHOL 215 MG/DL 04/14/2015 Unknown LIPID GROUP 89075 RCHOL/HDL 6.14 RATIO 04/14/2015 Unknow n LIPID GROUP 45846 NON-HDL CH 180 MG/DL 04/14/2015 Unknow n GFR CALC 2407882 GFR AA >60 ML/MIN 04/14/2015 Unknown GFR CALC 1036086 GFR NON-AA >60 ML/MIN 04/14/2015 Unknown COMPREHENSIVE METABOLIC 73343 AST 23 U/L 2014 Unknown COMPREHENSIVE METABOLIC 18144 ALT 27 IU/L 2014 Unknown COMPREHENSIVE METABOLIC 10217 BUN 15 MG/DL 2014 Unknown COMPREHENSIVE METABOLIC 04387 ALBUMIN 4.2 GM/DL 2014 Unknown COMPREHENSIVE METABOLIC 78553 CHLORIDE 103 MMOL/L 04/14 Unknown COMPREHENSIVE METABOLIC 11926 BILI TOT 0.8 MG/DL 2014 Unknown COMPREHENSIVE METABOLIC 85263 ALK PHOS 50 U/L 2014 Unknown COMPREHENSIVE METABOLIC 83063 SODIUM 134 MMOL/L 04/14 Unknown COMPREHENSIVE METABOLIC 53434 CREATININE 0.93 MG/DL 03/31 Unknown COMPREHENSIVE METABOLIC 98157 CALCIUM 9.4 MG/DL 2014 Unknown COMPREHENSIVE METABOLIC 45811 POTASSIUM 4.4 MMOL/L 04/14 Unknown COMPREHENSIVE METABOLIC 15526 PROT TOT 6.8 GM/DL 2014 Unknown COMPREHENSIVE METABOLIC 35639 Glucose 101 MG/DL 2014 Unknown COMPREHENSIVE METABOLIC 61138 BICARB 25 MMOL/L 2014 Unknown COMPREHENSIVE METABOLIC 18104 ANION GAP 6 MEQ/L 2014 Unknown PSA EQUIMOLAR TROY 80754 PSA EQ 1.04 NG/ML 5 Unknown GFR CALC 5931556 GFR AA >60 ML/MIN 11/10/2014 Unknown GFR CALC 7994813 GFR NON-AA >60 ML/MIN 11/10/2014 Unknown LIPID GROUP 16380 HDL TEST 31 MG/DL 11/10/2014 Unknown LIPID GROUP 56059 TRIG 133 MG/DL 11/10/2014 Unknown LIPID GROUP 70984 TEST LDL 74 MG/DL 11/10/2014 Unknown LIPID GROUP 26283 CHOL 132 MG/DL 11/10/2014 Unknown LIPID GROUP 89502 RCHOL/HDL 4.26 RATIO 11/10/2014 Unknow n LIPID GROUP 54692 NON-HDL CH 101 MG/DL 11/10/2014 Unknow n COMPLETE BLOOD COUNT 4478555 WBC 10.2 10e9/L 015 Unknown COMPLETE BLOOD COUNT 3830207 RBC 5.01 10e12/L 2014 Unknown COMPLETE BLOOD COUNT 9318628 HGB 16.1 g/dL 5 Unknown COMPLETE BLOOD COUNT 4426328 HCT DET 48.1 % 5 Unknown COMPLETE BLOOD COUNT 0397426 MCV 96.0 fL 5 Unknown COMPLETE BLOOD COUNT 6534045 MCH 32.1 pg 5 Unknown COMPLETE BLOOD COUNT 5870342 MCHC 33.5 g/dL 5 Unknown COMPLETE BLOOD COUNT 6241279 PLT 248 10e9/L 11/11/19 15 Unknown COMPLETE BLOOD COUNT 9184607 MPV 11.4 fL 5 Unknown COMPLETE BLOOD COUNT 6936356 GIUSEPPE % 51.2 % 5 Unknown COMPLETE BLOOD COUNT 0147594 LY % 37.4 % 5 Unknown COMPLETE BLOOD COUNT 8990560 MON % 9.2 % 5 Unknown COMPLETE BLOOD COUNT 6228069 EOS % 2.0 % 5 Unknown COMPLETE BLOOD COUNT 6591691 BASO % 0.2 % 5 Unknown COMPLETE BLOOD COUNT 0548706 RDW 14.0 % 5 Unknown COMPLETE BLOOD COUNT 4003488 ABS GIUSEPPE 5.22 10e9/L 015 Unknown COMPLETE BLOOD COUNT 6807477 ABS LYMPH 3.81 10e9/L 015 Unknown COMPLETE BLOOD COUNT 9827683 ABS MONO 0.94 10e9/L 015 Unknown COMPLETE BLOOD COUNT 5068037 ABS EOS 0.20 10e9/L 015 Unknown COMPLETE BLOOD COUNT 4864811 ABS BASO 0.02 10e9/L 015 Unknown COMPLETE BLOOD COUNT 5193656 RDW-SD 47.8 fL 5 Unknown FREE T4 16908 FREE T4 0.92 NG/DL 11/10/2014 Unknown COMPREHENSIVE METABOLIC 44697 AST 18 U/L 2014 Unknown COMPREHENSIVE METABOLIC 89995 ALT 25 IU/L 2014 Unknown COMPREHENSIVE METABOLIC 97832 BUN 16 MG/DL 2014 Unknown COMPREHENSIVE METABOLIC 93455 ALBUMIN 4.5 GM/DL 2014 Unknown COMPREHENSIVE METABOLIC 85209 CHLORIDE 103 MMOL/L 11/10 Unknown COMPREHENSIVE METABOLIC 65997 BILI TOT 0.4 MG/DL 2014 Unknown COMPREHENSIVE METABOLIC 33729 ALK PHOS 53 U/L 2014 Unknown COMPREHENSIVE METABOLIC 05450 SODIUM 135 MMOL/L 11/10 Unknown COMPREHENSIVE METABOLIC 52516 CREATININE 0.97 MG/DL 10/29 Unknown COMPREHENSIVE METABOLIC 36670 CALCIUM 9.4 MG/DL 2014 Unknown COMPREHENSIVE METABOLIC 17409 POTASSIUM 4.4 MMOL/L 11/10 Unknown COMPREHENSIVE METABOLIC 65925 PROT TOT 6.9 GM/DL 2014 Unknown COMPREHENSIVE METABOLIC 66645 Glucose 91 MG/DL 2014 Unknown COMPREHENSIVE METABOLIC 90944 BICARB 26 MMOL/L 2014 Unknown COMPREHENSIVE METABOLIC 47890 ANION GAP 6 MEQ/L 2014 Unknown THYROID STIMULATING HORMONE 79033 TSH 3.791 uIU/ML 11/10/2014 Unknown LIPID GROUP 69679 HDL TEST 35 MG/DL 04/29/2014 Unknown LIPID GROUP 53739 TRIG 123 MG/DL 04/29/2014 Unknown LIPID GROUP 51745 TEST LDL 117 MG/DL 04/29/2014 Unknown LIPID GROUP 78029 CHOL 177 MG/DL 04/29/2014 Unknown LIPID GROUP 13045 RCHOL/HDL 5.06 RATIO 04/29/2014 Unknow n LIPID GROUP 79389 NON-HDL CH 142 MG/DL 04/29/2014 Unknow n COMPREHENSIVE METABOLIC 34419 AST 18 U/L 2013 Unknown COMPREHENSIVE METABOLIC 09448 ALT 29 IU/L 2013 Unknown COMPREHENSIVE METABOLIC 40311 BUN 19 MG/DL 2013 Unknown COMPREHENSIVE METABOLIC 66251 ALBUMIN 4.0 GM/DL 2013 Unknown COMPREHENSIVE METABOLIC 00977 CHLORIDE 106 MMOL/L 04/29 Unknown COMPREHENSIVE METABOLIC 44211 BILI TOT 0.4 MG/DL 2013 Unknown COMPREHENSIVE METABOLIC 63736 ALK PHOS 51 U/L 2013 Unknown COMPREHENSIVE METABOLIC 45779 SODIUM 138 MMOL/L 04/29 Unknown COMPREHENSIVE METABOLIC 96890 CREATININE 0.87 MG/DL 04/02 Unknown COMPREHENSIVE METABOLIC 37435 CALCIUM 9.4 MG/DL 2013 Unknown COMPREHENSIVE METABOLIC 96600 POTASSIUM 4.5 MMOL/L 04/29 Unknown COMPREHENSIVE METABOLIC 33145 PROT TOT 6.8 GM/DL 2013 Unknown COMPREHENSIVE METABOLIC 06364 Glucose 106 MG/DL 2013 Unknown COMPREHENSIVE METABOLIC 15239 BICARB 24 MMOL/L 2013 Unknown COMPREHENSIVE METABOLIC 59874 ANION GAP 8 MEQ/L 2013 Unknown GFR CALC 8059321 GFR AA >60 ML/MIN 04/29/2014 Unknown GFR CALC 2050650 GFR NON-AA >60 ML/MIN 04/29/2014 Unknown LIPID GROUP 57410 HDL TEST 30 MG/DL 12/18/2013 Unknown LIPID GROUP 24977 TRIG 128 MG/DL 12/18/2013 Unknown LIPID GROUP 69022 TEST LDL 166 MG/DL 12/18/2013 Unknown LIPID GROUP 98485 CHOL 222 MG/DL 12/18/2013 Unknown LIPID GROUP 71411 RCHOL/HDL 7.40 RATIO 12/18/2013 Unknow n GFR CALC 8526001 GFR AA >60 ML/MIN 12/18/2013 Unknown GFR CALC 7990897 GFR NON-AA >60 ML/MIN 12/18/2013 Unknown FREE T4 77988 FREE T4 1.07 NG/DL 12/18/2013 Unknown COMPLETE BLOOD COUNT 2645129 WBC 7.2 10e9/L 12/19/19 14 Unknown COMPLETE BLOOD COUNT 0615103 RBC 4.89 10e12/L 2013 Unknown COMPLETE BLOOD COUNT 6708158 HGB 15.5 g/dL 4 Unknown COMPLETE BLOOD COUNT 1968708 HCT DET 46.6 % 4 Unknown COMPLETE BLOOD COUNT 3957365 MCV 95.3 fL 4 Unknown COMPLETE BLOOD COUNT 2434418 MCH 31.7 pg 4 Unknown COMPLETE BLOOD COUNT 8921427 MCHC 33.3 g/dL 4 Unknown COMPLETE BLOOD COUNT 8935363 PLT 246 10e9/L 12/19/19 14 Unknown COMPLETE BLOOD COUNT 2523540 MPV 11.4 fL 4 Unknown COMPLETE BLOOD COUNT 5064398 GIUSEPPE % 48.6 % 4 Unknown COMPLETE BLOOD COUNT 8959811 LY % 37.4 % 4 Unknown COMPLETE BLOOD COUNT 1131115 MON % 10.5 % 4 Unknown COMPLETE BLOOD COUNT 6730071 EOS % 3.2 % 4 Unknown COMPLETE BLOOD COUNT 3423380 BASO % 0.3 % 4 Unknown COMPLETE BLOOD COUNT 9878336 RDW 13.6 % 4 Unknown COMPLETE BLOOD COUNT 6841879 ABS GIUSEPPE 3.50 10e9/L 014 Unknown COMPLETE BLOOD COUNT 9110262 ABS LYMPH 2.69 10e9/L 014 Unknown COMPLETE BLOOD COUNT 6445095 ABS MONO 0.76 10e9/L 014 Unknown COMPLETE BLOOD COUNT 0310285 ABS EOS 0.23 10e9/L 014 Unknown COMPLETE BLOOD COUNT 7051189 ABS BASO 0.02 10e9/L 014 Unknown COMPLETE BLOOD COUNT 5726337 RDW-SD 46.2 fL 4 Unknown COMPREHENSIVE METABOLIC 66904 AST 38 U/L 2013 Unknown COMPREHENSIVE METABOLIC 92644 ALT 33 IU/L 2013 Unknown COMPREHENSIVE METABOLIC 99514 BUN 15 MG/DL 2013 Unknown COMPREHENSIVE METABOLIC 23247 ALBUMIN 4.2 GM/DL 2013 Unknown COMPREHENSIVE METABOLIC 93658 CHLORIDE 103 MMOL/L 12/18 Unknown COMPREHENSIVE METABOLIC 60084 BILI TOT 0.6 MG/DL 2013 Unknown COMPREHENSIVE METABOLIC 89687 ALK PHOS 45 U/L 2013 Unknown COMPREHENSIVE METABOLIC 62480 SODIUM 136 MMOL/L 12/18 Unknown COMPREHENSIVE METABOLIC 90110 CREATININE 0.97 MG/DL 11/29 Unknown COMPREHENSIVE METABOLIC 43336 CALCIUM 9.2 MG/DL 2013 Unknown COMPREHENSIVE METABOLIC 93091 POTASSIUM 4.2 MMOL/L 12/18 Unknown COMPREHENSIVE METABOLIC 02258 PROT TOT 7.0 GM/DL 2013 Unknown COMPREHENSIVE METABOLIC 61538 Glucose 120 MG/DL 2013 Unknown COMPREHENSIVE METABOLIC 90856 BICARB 24 MMOL/L 2013 Unknown COMPREHENSIVE METABOLIC 00333 ANION GAP 9 MEQ/L 2013 Unknown THYROID STIMULATING HORMONE 48895 TSH 1.305 uIU/ML 12/18/2013 Unknown PSA EQUIMOLAR TROY 56129 PSA EQ 1.71 NG/ML 4 Unknown LIPID GROUP 12087 HDL TEST 29 MG/DL 07/17/2012 Unknown LIPID GROUP 92898 TRIG 155 MG/DL 07/17/2012 Unknown LIPID GROUP 23573 TEST LDL 105 MG/DL 07/17/2012 Unknown LIPID GROUP 72786 CHOL 165 MG/DL 07/17/2012 Unknown LIPID GROUP 62215 RCHOL/HDL 5.69 RATIO 07/17/2012 Unknow n GFR CALC 6763912 GFR AA >60 ML/MIN 07/17/2012 Unknown GFR CALC 2828120 GFR NON-AA >60 ML/MIN 07/17/2012 Unknown COMPREHENSIVE METABOLIC 80693 AST 19 U/L 2011 Unknown COMPREHENSIVE METABOLIC 02005 ALT 25 IU/L 2011 Unknown COMPREHENSIVE METABOLIC 55884 BUN 14 MG/DL 2011 Unknown COMPREHENSIVE METABOLIC 86136 ALBUMIN 4.4 GM/DL 2011 Unknown COMPREHENSIVE METABOLIC 30289 CHLORIDE 103 MMOL/L 07/17 Unknown COMPREHENSIVE METABOLIC 41253 BILI TOT 0.6 MG/DL 2011 Unknown COMPREHENSIVE METABOLIC 74977 ALK PHOS 53 U/L 2011 Unknown COMPREHENSIVE METABOLIC 85452 SODIUM 136 MMOL/L 07/17 Unknown COMPREHENSIVE METABOLIC 90956 CREATININE 0.97 MG/DL 06/30 Unknown COMPREHENSIVE METABOLIC 75230 CALCIUM 9.4 MG/DL 2011 Unknown COMPREHENSIVE METABOLIC 11840 POTASSIUM 4.3 MMOL/L 07/17 Unknown COMPREHENSIVE METABOLIC 57602 PROT TOT 6.9 GM/DL 2011 Unknown COMPREHENSIVE METABOLIC 74205 Glucose 102 MG/DL 2011 Unknown COMPREHENSIVE METABOLIC 95433 BICARB 27 MMOL/L 2011 Unknown COMPREHENSIVE METABOLIC 79928 ANION GAP 6 MEQ/L 2011 Unknown ERYTHROCYTE SEDIMENTATION RATE 31391 ESR 14 MM/HR 03/20/2012 Unknown LIPID GROUP 04070 HDL TEST 31 MG/DL 03/20/2012 Unknown LIPID GROUP 59241 TRIG 210 MG/DL 03/20/2012 Unknown LIPID GROUP 23488 TEST LDL 164 MG/DL 03/20/2012 Unknown LIPID GROUP 61534 CHOL 237 MG/DL 03/20/2012 Unknown LIPID GROUP 04128 RCHOL/HDL 7.65 RATIO 03/20/2012 Unknow n GFR CALC 5857021 GFR AA >60 ML/MIN 03/20/2012 Unknown GFR CALC 2331723 GFR NON-AA >60 ML/MIN 03/20/2012 Unknown C-REACTIVE PROTEIN (CRP) QUANT 80362 CRP 0.9 MG/DL 03/20/2012 Unknown COMPLETE BLOOD COUNT 68620 WBC 9.7 10e9/L 03/20/20 12 Unknown COMPLETE BLOOD COUNT 49268 RBC 5.14 10e12/L 2011 Unknown COMPLETE BLOOD COUNT 41002 HGB 15.5 g/dL 2 Unknown COMPLETE BLOOD COUNT 07543 HCT DET 46.9 % 2 Unknown COMPLETE BLOOD COUNT 80689 MCV 91.2 fL 2 Unknown COMPLETE BLOOD COUNT 95408 MCH 30.2 pg 2 Unknown COMPLETE BLOOD COUNT 96429 MCHC 33.0 g/dL 2 Unknown COMPLETE BLOOD COUNT 76099 PLT 280 10e9/L 03/20/20 12 Unknown COMPLETE BLOOD COUNT 87251 MPV 10.6 fL 2 Unknown COMPLETE BLOOD COUNT 22358 GIUSEPPE % 61.5 % 2 Unknown COMPLETE BLOOD COUNT 65087 LY % 26.5 % 2 Unknown COMPLETE BLOOD COUNT 82023 MON % 8.8 % 2 Unknown COMPLETE BLOOD COUNT 53318 EOS % 3.0 % 2 Unknown COMPLETE BLOOD COUNT 43317 BASO % 0.2 % 2 Unknown COMPLETE BLOOD COUNT 46415 RDW 15.3 % 2 Unknown COMPLETE BLOOD COUNT 16115 ABS GIUSEPPE 5.97 10e9/L 012 Unknown COMPLETE BLOOD COUNT 22498 ABS LYMPH 2.57 10e9/L 012 Unknown COMPLETE BLOOD COUNT 56999 ABS MONO 0.85 10e9/L 012 Unknown COMPLETE BLOOD COUNT 36326 ABS EOS 0.29 10e9/L 012 Unknown COMPLETE BLOOD COUNT 09603 ABS BASO 0.02 10e9/L 012 Unknown COMPLETE BLOOD COUNT 40196 RDW-SD 50.3 fL 2 Unknown COMPREHENSIVE METABOLIC 51220 AST 16 U/L 2011 Unknown COMPREHENSIVE METABOLIC 86057 ALT 21 IU/L 2011 Unknown COMPREHENSIVE METABOLIC 23615 BUN 15 MG/DL 2011 Unknown COMPREHENSIVE METABOLIC 81699 ALBUMIN 4.3 GM/DL 2011 Unknown COMPREHENSIVE METABOLIC 42714 CHLORIDE 102 MMOL/L 03/20 Unknown COMPREHENSIVE METABOLIC 94185 BILI TOT 0.5 MG/DL 2011 Unknown COMPREHENSIVE METABOLIC 00738 ALK PHOS 60 U/L 2011 Unknown COMPREHENSIVE METABOLIC 51067 SODIUM 135 MMOL/L 03/20 Unknown COMPREHENSIVE METABOLIC 86133 CREATININE 0.94 MG/DL 03/01 Unknown COMPREHENSIVE METABOLIC 82482 CALCIUM 9.0 MG/DL 2011 Unknown COMPREHENSIVE METABOLIC 60846 POTASSIUM 4.4 MMOL/L 03/20 Unknown COMPREHENSIVE METABOLIC 38544 PROT TOT 6.7 GM/DL 2011 Unknown COMPREHENSIVE METABOLIC 50562 Glucose 96 MG/DL 2011 Unknown COMPREHENSIVE METABOLIC 92854 BICARB 25 MMOL/L 2011 Unknown COMPREHENSIVE METABOLIC 36304 ANION GAP 8 MEQ/L 2011 [place] [address] PRO TIME 21.6 SEC 03/20/[place] [address] INR MCMC 1.8 03/20/2012 Unknow n Procedures Procedure Codes Date ROUTINE VENIPUNCTURE CPT-4: 19381 06/19/2018 ASSAY OF FREE THYROXINE CPT-4: 75646 06/19/2018 ASSAY THYROID STIM HORMONE CPT-4: 84846 06/19/2018 COMPREHEN METABOLIC PANEL CPT-4: 37302 06/19/2018 COMPLETE CBC W/AUTO DIFF WBC CPT-4: 10409 06/19/2018 LIPID PANEL CPT-4: 84249 06/19/2018 ASSAY OF PSA TOTAL CPT-4: 60574 06/19/2018 VITAMIN D TOTAL (25 HYDROXY) CPT-4: 33553 06/19/2018 VITAMIN B-12 CPT-4: 29291 06/19/2018 DEXAMETHASONE SODIUM PHOS CPT-4: J1100 08/31/2017 TRIAMCINOLONE ACET INJ NOS CPT-4: J3301 08/31/2017 DRAIN/INJECT JOINT/BURSA CPT-4: 26923 08/31/2017 ROUTINE VENIPUNCTURE CPT-4: 13990 08/01/2017 COMPREHEN METABOLIC PANEL CPT-4: 33904 08/01/2017 LIPID PANEL CPT-4: 50657 08/01/2017 DRAIN/INJECT JOINT/BURSA CPT-4: 30047 09/12/2016 TRIAMCINOLONE ACET INJ NOS CPT-4: J3301 09/12/2016 DEXAMETHASONE SODIUM PHOS CPT-4: J1100 09/12/2016 ROUTINE VENIPUNCTURE CPT-4: 99416 09/09/2016 ASSAY OF FREE THYROXINE CPT-4: 11127 09/09/2016 ASSAY THYROID STIM HORMONE CPT-4: 80597 09/09/2016 COMPREHEN METABOLIC PANEL CPT-4: 06245 09/09/2016 COMPLETE CBC W/AUTO DIFF WBC CPT-4: 68942 09/09/2016 LIPID PANEL CPT-4: 27560 09/09/2016 SPECIAL REPORTS OR FORMS CPT-4: 56301 08/05/2016 ROUTINE VENIPUNCTURE CPT-4: 06532 09/15/2015 COMPREHEN METABOLIC PANEL CPT-4: 51743 09/15/2015 LIPID PANEL CPT-4: 03470 09/15/2015 PRESCRIP TRANSMIT VIA ERX SY CPT-4: G8553 08/31/2015 ROUTINE VENIPUNCTURE CPT-4: 79131 04/14/2015 COMPREHEN METABOLIC PANEL CPT-4: 88610 04/14/2015 LIPID PANEL CPT-4: 41986 04/14/2015 ROUTINE VENIPUNCTURE CPT-4: 64289 11/10/2014 ASSAY OF FREE THYROXINE CPT-4: 61707 11/10/2014 ASSAY THYROID STIM HORMONE CPT-4: 83566 11/10/2014 COMPREHEN METABOLIC PANEL CPT-4: 02949 11/10/2014 COMPLETE CBC W/AUTO DIFF WBC CPT-4: 48123 11/10/2014 LIPID PANEL CPT-4: 14978 11/10/2014 ASSAY OF PSA TOTAL CPT-4: 73450 11/10/2014 ROUTINE VENIPUNCTURE CPT-4: 36722 04/29/2014 COMPREHEN METABOLIC PANEL CPT-4: 20890 04/29/2014 LIPID PANEL CPT-4: 77287 04/29/2014 ROUTINE VENIPUNCTURE CPT-4: 43658 12/18/2013 ASSAY OF FREE THYROXINE CPT-4: 20996 12/18/2013 ASSAY THYROID STIM HORMONE CPT-4: 07045 12/18/2013 COMPREHEN METABOLIC PANEL CPT-4: 77987 12/18/2013 COMPLETE CBC W/AUTO DIFF WBC CPT-4: 16901 12/18/2013 LIPID PANEL CPT-4: 32061 12/18/2013 ASSAY OF PSA TOTAL CPT-4: 66475 12/18/2013 ROUTINE VENIPUNCTURE CPT-4: 30863 07/17/2012 COMPREHEN METABOLIC PANEL CPT-4: 39358 07/17/2012 LIPID PANEL CPT-4: 99039 07/17/2012 ROUTINE VENIPUNCTURE CPT-4: 94359 03/20/2012 COMPLETE CBC W/AUTO DIFF WBC CPT-4: 03085 03/20/2012 RBC SED RATE AUTOMATED CPT-4: 45986 03/20/2012 C-REACTIVE PROTEIN CPT-4: 35043 03/20/2012 COMPREHEN METABOLIC PANEL CPT-4: 87067 03/20/2012 LIPID PANEL CPT-4: 85959 03/20/2012 PROTHROMBIN TIME CPT-4: 83132 03/20/2012 Vital Signs Date Vital 10/07/2019 Blood Pressure 1: 142/83 Code: 8480-6 BMI: 31.3 Code: 85052-9 Heart Rate 1: 80 bpm Height: 6'2" Respiratory Rate: 17 bpm SpO2: 99% Tempera ture: 36.7 (C) / 98.1 (F) Weight: 244 lbs 07/01/2019 Blood Pressure 1: 114/80 Code: 8480-6 BMI: 30.4 Code: 27694-6 Heart Rate 1: 72 bpm Height: 6'2" [...] 1: 126/82 Code: 8480-6 BMI: 31.2 Code: 59012-4 Heart Rate 1: 84 bpm Height: 6'2" Respiratory Rate: 20 bpm SpO2: 94% Tempera ture: 37.0 (C) / 98.6 (F) Weight: 243 lbs 03/02/2018 Blood Pressure 1: 122/80 Code: 8480-6 BMI: 30.8 Code: 58833-2 Heart Rate 1: 74 bpm Height: 6'2" Respiratory Rate: 20 bpm SpO2: 95% Tempera ture: 37.1 (C) / 98.8 (F) Weight: 240 lbs 08/31/2017 Blood Pressure 1: 136/90 Code: 8480-6 Heart Rate 1: 76 bpm Respiratory Rate: 20 bpm Temperature: 36.7 (C) / 98.0 (F) Weight: 247 lbs 07/18/2017 Blood Pressure 1: 126/78 Code: 8480-6 BMI: 31.3 Code: 47070-0 Heart Rate 1: 72 bpm Height: 6'2" Respiratory Rate: 20 bpm SpO2: 94% Tempera ture: 37.0 (C) / 98.6 (F) Weight: 244 lbs 04/24/2017 Blood Pressure 1: 152/92 Code: 8480-6 BMI: 31.1 Code: 03451-1 Heart Rate 1: 74 bpm Height: 6'2" Respiratory Rate: 18 bpm SpO2: 98% Tempera ture: 35.9 (C) / 96.6 (F) Weight: 242 lbs 01/04/2017 Blood Pressure 1: 122/70 Code: 8480-6 BMI: 30.4 Code: 59441-7 Heart Rate 1: 88 bpm Height: 6'2" Respiratory Rate: 20 bpm SpO2: 96% Tempera ture: 36.6 (C) / 97.8 (F) Weight: 237 lbs 09/12/2016 Blood Pressure 1: 136/78 Code: 8480-6 Heart Rate 1: 82 bpm Respiratory Rate: 22 bpm SpO2: 94% Temperature: 36.4 (C) / 97.6 (F) We ight: 234 lbs 09/07/2016 Blood Pressure 1: 122/70 Code: 8480-6 BMI: 30.0 Code: 32100-8 Heart Rate 1: 88 bpm Height: 6'2" Respiratory Rate: 20 bpm SpO2: 94% Tempera ture: 36.6 (C) / 97.9 (F) Weight: 234 lbs 08/31/2015 Blood Pressure 1: 142/94 Code: 8480-6 BMI: 28.9 Code: 47544-1 Heart Rate 1: 92 bpm Height: 6'2" Respiratory Rate: 20 bpm Temperature: 36 .9 (C) / 98.5 (F) Weight: 225 lbs 04/14/2015 Blood Pressure 1: 126/80 Code: 8480-6 BMI: 28.0 Code: 34641-4 Heart Rate 1: 76 bpm Height: 6'2" Respiratory Rate: 20 bpm Temperature: 36 .6 (C) / 97.8 (F) Weight: 218 lbs 10/07/2014 Blood Pressure 1: 128/76 Code: 8480-6 BMI: 28.6 Code: 69726-4 Heart Rate 1: 84 bpm Height: 6'2" Respiratory Rate: 22 bpm Temperature: 36 .6 (C) / 97.9 (F) Weight: 223 lbs 05/01/2014 Blood Pressure 1: 126/68 Code: 8480-6 BMI: 28.2 Code: 96628-1 Heart Rate 1: 84 bpm Height: 6'2" Respiratory Rate: 20 bpm Temperature: 36 .8 (C) / 98.3 (F) Weight: 220 lbs 12/17/2013 Blood Pressure 1: 136/82 Code: 8480-6 BMI: 29.6 Code: 52266-7 Heart Rate 1: 76 bpm Height: 6'1" Respiratory Rate: 20 bpm Temperature: 36 .8 (C) / 98.2 (F) Weight: 224 lbs 12/11/2012 Blood Pressure 1: 122/86 Code: 8480-6 BMI: 30.5 Code: 28250-4 Heart Rate 1: 76 bpm Height: 6'1" Respiratory Rate: 20 bpm SpO2: 93% Tempera ture: 36.8 (C) / 98.2 (F) Weight: 231 lbs 12/04/2012 Blood Pressure 1: 124/86 Code: 8480-6 BMI: 30.5 Code: 55054-3 Heart Rate 1: 68 bpm Height: 6'1" Respiratory Rate: 20 bpm SpO2: 95% Tempera ture: 36.6 (C) / 97.8 (F) Weight: 231 lbs 08/14/2012 Blood Pressure 1: 126/70 Code: 8480-6 BMI: 29.4 Code: 56593-0 Heart Rate 1: 80 bpm Height: 6'1" Respiratory Rate: 20 bpm Temperature: 36 .8 (C) / 98.3 (F) Weight: 223 lbs 07/17/2012 Blood Pressure 1: 124/82 Code: 8480-6 BMI: 29.7 Code: 37567-3 Heart Rate 1: 80 bpm Height: 6'1" Respiratory Rate: 20 bpm Temperature: 36 .8 (C) / 98.2 (F) Weight: 225 lbs 03/20/2012 Blood Pressure 1: 124/78 Code: 8480-6 BMI: 29.3 Code: 17203-5 Heart Rate 1: 72 bpm Height: 6'1" Respiratory Rate: 20 bpm Temperature: 36 .6 (C) / 97.8 (F) Weight: 222 lbs 12/08/2011 Blood Pressure 1: 112/64 Code: 8480-6 BMI: 28.2 Code: 92489-4 Heart Rate 1: 78 bpm Height: 6'1" Temperature: 36.3 (C) / 97.4 (F) Weight: 214 lbs 08/11/2011 Blood Pressure 1: 128/70 Code: 8480-6 BMI: 27.6 Code: 96022-8 Heart Rate 1: 76 bpm Height: 6'1" [...] ntix follow up 03/20/[address] Gallegos, aditya s stopping the warfarin back pain 12/08/2011 ~generic 08/11/2011 Re-establishing visi t Yearly Checkup/Physical 05/26/2010 Establishing Vis it Encounters Encounter Performer Location Codes Date (34511) OFFICE/OUTPATIENT VISIT EST Diagnosis: COPD (chronic obstructive pulmonary disease)[ICD10: J44.9] Diagnosis: Mixed hyperlipidemia[ICD10: E78.2] Diagnosis: Coronary artery disease[ICD10: I25.10] Martita GARCIA [facility] CPT-4: 64778 10/07/2019 ([id number]) OFFICE/OUTPATIENT VISIT EST Diagnosis: Cephalgia[ICD10: R51] Diagnosis: Family history of brain aneurysm[ICD10: Z82.49] Diagnosis: Other intervertebral disc degeneration, 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] Martita Black [employer] CPT-4: 84535 07/01/2019 ([id number]) OFFICE/OUTPATIENT VISIT EST Diagnosis: 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] Diagnosis: Bilateral primary osteoarthritis of knee[ICD10: M17.0] Diagnosis: Nicotine dependence, unspecified, uncomplicated[ICD10: F17.200] Diagnosis: Mixed hyperlipidemia[ICD10: E78.2] Martita José Migueljessieodilon KIYA RENTERIA [facility] CPT-4: 47401 03/27/2019 ([id number]) OFFICE/OUTPATIENT VISIT EST Diagnosis: Mixed hyperlipidemia[ICD10: E78.2] Diagnosis: 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] Diagnosis: Other intervertebral disc degeneration, 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] Martita José [employer] CPT-4: 50773 12/25/2018 ([id number]) OFFICE/OUTPATIENT VISIT EST Diagnosis: Mixed hyperlipidemia[ICD10: E78.2] Diagnosis: Other fatigue[ICD10: R53.83] Diagnosis: Encounter for screening for malignant neoplasm of prostate[ICD10: Z12.5] Diagnosis: Primary osteoarthritis, 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] Diagnosis: Pain in thoracic spine[ICD10: M54.6] Martita José Miguelfelix SLAUGHTERQUE AALIYAH [facility] CPT-4: 93292 06/19/2018 ([id number]) OFFICE/OUTPATIENT VISIT EST Diagnosis: Encounter for therapeutic drug level monitoring[ICD10: Z51.81] Diagnosis: Pain in 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: M25.531] Diagnosis: Pain in right knee[ICD10: M25.561] Diagnosis: Pain in left knee[ICD10: M25.562] Marian SLAUGHTERQUEDAVID Lam [facility] CPT-4: 29942 03/02/2018 ([id number]) OFFICE/OUTPATIENT VISIT EST Diagnosis: Mixed hyperlipidemia[ICD10: E78.2] Martita RENTERIA [facility] CPT-4: 46440 08/01/2017 ([id number]) OFFICE/OUTPATIENT VISIT EST Diagnosis: Other spondylosis with radiculopathy, cervical region[ICD10: M47.22] Diagnosis: Pain in 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: M25.531] Diagnosis: Mixed hyperlipidemia[ICD10: E78.2] Diagnosis: 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] Martita SIMONS DO [employer] CPT-4: 9921 3 07/18/2017 ([id number]) OFFICE/OUTPATIENT VISIT EST Diagnosis: Other intervertebral disc degeneration, 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] Diagnosis: Cervicalgia[ICD10: M54.2] Martita YOUNG DO [employer] CPT-4: 68198 04/24/2017 ([id number]) OFFICE/OUTPATIENT VISIT EST Diagnosis: Cervicalgia[ICD10: M54.2] Diagnosis: Other intervertebral disc degeneration, 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] Diagnosis: Mixed hyperlipidemia[ICD10: E78.2] Martita SIMONS [employer] CPT-4: 04848 01/04/2017 ([id number]) OFFICE/OUTPATIENT VISIT EST Diagnosis: Mixed hyperlipidemia[ICD10: E78.2] Diagnosis: Encounter for general adult medical examination with abnormal findings[ICD10: Z00.01] Martita SIMONS DO [employer] CPT-4: 15942 09/09/2016 ([id number]) PREV VISIT EST AGE 40-64 Diagnosis: Mixed hyperlipidemia[ICD10: E78.2] Diagnosis: Nicotine dependence, unspecified, uncomplicated[ICD10: F17.200] Diagnosis: Chronic obstructive pulmonary disease with acute lower respiratory infection[ICD10: J44.0] Diagnosis: Bilateral primary osteoarthritis of knee[ICD10: M17.0] Diagnosis: Pain in thoracic spine[ICD10: M54.6] Diagnosis: Pain in 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: M25.531] Diagnosis: Encounter for general adult medical examination with abnormal findings[ICD10: Z00.01] Martita SIMONS [employer] CPT-4: 36000 09/07/2016 ([id number]) OFFICE/OUTPATIENT VISIT EST Diagnosis: Mixed hyperlipidemia[ICD10: E78.2] Martita SIMONS [employer] CPT-4: 95348 09/15/2015 ([id number]) OFFICE/OUTPATIENT VISIT EST Diagnosis: Acute bronchitis, unspecified[ICD10: J20.9] Diagnosis: Chronic obstructive pulmonary disease with acute lower respiratory infection[ICD10: J44.0] Diagnosis: Lumbago with sciatica, right side[ICD10: M54.41] Martita SIMONS [employer] CPT-4: 63702 08/31/2015 ([id number]) OFFICE/OUTPATIENT VISIT EST Diagnosis: HYPERLIPIDEMIA NEC/NOS[ICD9: 272.4] Diagnosis: TOBACCO USE DISORDER[ICD9: 305.1] Diagnosis: Osteoarthritis, knee[ICD9: 715.96] Diagnosis: Chronic back pain[ICD9: 724.5] Martita SIMONS [employer] CPT-4: 46924 04/14/2015 ([id number]) OFFICE/OUTPATIENT VISIT EST Diagnosis: HYPERLIPIDEMIA NEC/NOS[ICD9: 272.4] Diagnosis: COPD[ICD9: 496] Diagnosis: ROUTINE MEDICAL EXAM[ICD9: V70.0] Martita SIMONS [employer] CPT-4: 86379 11/10/2014 ([id number]) OFFICE/OUTPATIENT VISIT EST Diagnosis: Wrist pain[ICD9: 719.43] Diagnosis: Knee osteoarthritis[ICD9: 715.96] Diagnosis: Chronic back pain[ICD9: 724.5] Martita SIMONS [employer] CPT-4: 23413 10/07/2014 ([id number]) OFFICE/OUTPATIENT VISIT EST Diagnosis: HYPERLIPIDEMIA NEC/NOS[ICD9: 272.4] Diagnosis: Chronic back pain[ICD9: 724.5] Diagnosis: OSTEOARTH NOS-L/LEG[ICD9: 715.96] Martita SIMONS [employer] CPT-4: 52900 05/01/2014 ([id number]) OFFICE/OUTPATIENT VISIT EST Diagnosis: HYPERLIPIDEMIA NEC/NOS[ICD9: 272.4] Martita SLAUGHTERSHRUTHI MOROCHO Sofia SIMONS [employer] CPT-4: 88081 04/29/2014 ([id number]) OFFICE/OUTPATIENT VISIT EST Diagnosis: ROUTINE MEDICAL EXAM[ICD9: V70.0] Diagnosis: HYPERLIPIDEMIA NEC/NOS[ICD9: 272.4] Martita MONTERO BAILEE SIMONS DO [facility] CPT-4: 27636 12/18/2013 OFFICE/OUTPATIENT VISIT EST Diagnosis: HYPERLIPIDEMIA NEC/NOS[ICD9: 272.4] Diagnosis: COPD[ICD9: 496] Diagnosis: Knee pain[ICD9: 719.46] Diagnosis: Wrist pain[ICD9: 719.43] Martita José Miguelfelix [employer] [facility] CPT-4: 18621 12/17/2013 OFFICE/OUTPATIENT VISIT EST Diagnosis: COPD W/ ACUTE EXACERB[ICD9: 491.21] Diagnosis: COUGH[ICD9: 786.2] Martita FERRARALINE Sofia SIMONS DO [facility] CPT-4: 85515 12/11/2012 ([id number]) OFFICE/OUTPATIENT VISIT EST Diagnosis: BRONCHITIS, ACUTE[ICD9: 466.0] Diagnosis: COPD exacerbation[ICD9: 491.21] Martita FERRARALINE Sofia SIMONS [facility] CPT-4: 15225 12/04/2012 ([id number]) OFFICE/OUTPATIENT VISIT EST Diagnosis: DERMATITIS NOS[ICD9: 692.9] Diagnosis: TOBACCO USE DISORDER[ICD9: 305.1] Martitajacky Lam Sofia SIMONS [facility] CPT-4: 15169 08/14/2012 ([id number]) OFFICE/OUTPATIENT VISIT EST Diagnosis: TOBACCO USE DISORDER[ICD9: 305.1] Diagnosis: PAIN, LOWER BACK[ICD9: 724.2] Diagnosis: PAIN IN THORACIC SPINE[ICD9: 724.1] Diagnosis: DERMATITIS NOS[ICD9: 692.9] Diagnosis: HYPERLIPIDEMIA NEC/NOS[ICD9: 272.4] Martita José Miguelfelix MONTERO BAILEE SIMONS [facility] CPT-4: 89073 07/17/2012 ([id number]) OFFICE/OUTPATIENT VISIT EST Diagnosis: HYPERLIPIDEMIA NEC/NOS[ICD9: 272.4] Diagnosis: OSTEOARTH NOS-L/LEG[ICD9: 715.96] Diagnosis: JOINT PAIN-L/LEG[ICD9: 719.46] Diagnosis: AC EMBL SUPRFCL UP EXT[ICD9: 453.81] Martita FISCHER Sofia [employer] CPT-4: 95470 03/20/2012 ([id number]) OFFICE/OUTPATIENT VISIT EST Diagnosis: PAIN, LOWER BACK[ICD9: 724.2] Diagnosis: Superficial venous thrombosis of arm[ICD9: 453.81] Diagnosis: Trigger finger, left[ICD9: 727.03] Martita RENTERIA Sofia SIMONS [employer] CPT-4: 84162 12/08/2011 OFFICE/OUTPATIENT VISIT EST Diagnosis: Knee pain[ICD9: 719.46] Diagnosis: Knee osteoarthritis[ICD9: 715.96] Diagnosis: Thoracic back pain[ICD9: 724.1] Diagnosis: HYPERLIPIDEMIA NEC/NOS[ICD9: 272.4] Martita MOROCHO Sofia SIMONS [facility] CPT-4: 02148 08/11/2011 ([id number]) OFFICE/OUTPATIENT VISIT, NEW Martita HULL [employer] CPT-4: 26253 05/26/2010 Plan of Care Planned Activity Notes [...] R51 07/01/2019 Appointment: Martita Simons WPtel[facility] [phone] [id number] MEDICATION REVIEW 07/01/2019 Visit Diagnosis Plan: Atherosclerotic he art disease of [place] coronary artery without angina pectoris Discussion: Discussed [...] : E78.2 03/27/2019 Appointment: Martita Simons WPtel: [address] [place], [place] [phone] MEDICATION REVIEW 03/27/2019 Visit Diagnosis Plan: Other intervertebral disc degene ration, lumbar region Discussion: Stable on hydrocodone UDS done Follow Up: 3 months ICD-9 : 722.52 ICD-10 : M51.36 12/25/2018 Visit Diagnosis Plan: Atherosclerotic he art disease of [place] coronary artery without angina pectoris Discussion: Smoking Cessation Continue c urrent meds and fwup with cardiology ICD-9 : 414.00 ICD-10 : I25.10 12/25/2018 Appointment: Martita Simons WPtel: [address] [place], [place] [phone] MEDICATION REVIEW 12/25/2018 Appointment: Martita Simonstel: [address] [place] [address] OFFICE SURGERY 08/22/2018 Visit Diagnosis Plan: Pain [...] : M19.031 06/19/2018 Appointment: Martita Simons WPtel: [address] [place] [address] MEDICATION REVIEW 06/19/2018 Appointment: Martita Simons WPtel: [address] [place] [address] US CANCELED 06/05/2018 Appointment: Martita Simons WPtel: [address] [place], [place] [phone] [place] CANCELED 05/08/2018 Visit Diagnosis Plan: Pain [...] ICD-10 : M25.562 03/02/2018 Appointment: Marian Juares [address] [place] [address] MEDICATION REVIEW 03/02/2018 Patient Education: Patient Medication Summary Completed 03/02/2018 Appointment: Martita Simons WPtel: [address] [place] [address] UA 02/01/2018 Patient Education: Patient Medication Summary Completed 02/01/2018 Visit Diagnosis Plan: Other synovitis and tenosynoviti s, right hand Discussion: Right wrist cleansed with alcohol and betadine and injected laterally with 1cc 1% lidocaine with 20mg kenalog and 2mg dexamethasone, tolerated well with no complications, neosporin and bandage applied ICD-9 : 727.05 ICD-10 : M65.841 08/31/2017 Appointment: Martita Simons WPtel: [address] [place], [place] [phone] ACUTE ILLNESS 08/31/2017 Patient Education: Patient Medication Summary Completed 08/31/2017 Appointment: Martita Simons WPtel: [phone] [id number] [place] LAB 08/01/2017 Patient Education: Patient Medication [...] : E78.2 07/18/2017 Appointment: Martita Simons WPtel: [phone] [id number] MEDICATION REVIEW 07/18/2017 Patient Education: Patient Medication Summary Completed 07/18/2017 Visit Diagnosis Plan: Other intervertebral disc degene ration, lumbar region Discussion: Add PT For lumbar spine ICD-9 : 722.52 ICD-10 : M51.36 04/24/2017 Visit Diagnosis Plan: Cervicalgia Discussion: Continue PT then fwup after done with PT ICD-9 : 723.1 ICD-10 : M54.2 04/24/2017 Appointment: Martita Simons WPtel: [phone] [id number] MEDICATION REVIEW 04/24/2017 Patient Education: Patient Medication Summary Completed 04/24/2017 Patient Education: Patient Medication Summary Completed 03/22/2017 Care Plan: MRI NECK SPINE W/O DYE LOINC : 80439-4 Pending 03/22/2017 Visit Diagnosis Plan: Mixed hyperlipidemia Discussion: Patient has stopped smoking Will continue with lifestyle change and check lipids with fwup in os ICD-9 : 272.4 ICD-10 : E78.2 01/04/2017 Visit Diagnosis Plan: Other intervertebral disc degene ration, lumbar region Discussion: Continue hydrocodone at current dose UDS monitoring Lock up pain meds Follow Up: 3 months ICD-9 : 722.52 ICD-10 : M51.36 01/04/2017 Visit Diagnosis Plan: Cervicalgia Discussion: Daily st retches/Traction ICD-9 : 723.1 ICD-10 : M54.2 01/04/2017 Appointment: Martita Simons WPtel: [address] [place], [place] [phone] [place] 01/03 lm`sl 01/03-Confirmed MEDICATION REVIEW 01/04/2017 Patient Education: Patient Medication Summary Completed 01/04/2017 Visit Diagnosis Plan: Mixed hyperlipidemia Discussion: Lab discussed Restart lipitor/lifestyle change ICD-9 : 272.4 ICD-10 : E78.2 09/12/2016 Visit Diagnosis Plan: Other enthesopathies, not elsewh ere classified Discussion: Right wrist injection as above ICD-9 : 727.05 ICD-10 : M77.8 09/12/2016 Appointment: Martita Simons WPtel: [address] [place], [place] [phone] [place] 09/12 confirmed `sl INJECTION 09/12/2016 Patient Education: Patient Medication Summary Completed 09/12/2016 Appointment: Martita Simons WPtel: [address] [place], [place] [phone] [place] LAB 09/09/2016 Patient Education: Patient Medication Summary Completed 09/09/2016 Visit Diagnosis Plan: Pain in right wrist Discussion: Will return for wrist injection ICD-9 : 719.43 ICD-10 : M25.531 09/07/2016 Visit Diagnosis Plan: Chronic obstructiv e pulmonary disease with acute lower respiratory infection Discussion: Smoking Cessation Symbicort Check CXR ICD-9 : 496 ICD-10 : J44.0 09/07/2016 Visit Diagnosis Plan: Encounter for [facility] adult medical examination with abnormal findings Discussion: Update fasting lab Follow Up: 4 months ICD-9 : V70.0 ICD-10 : Z00.01 09/07/2016 Visit Diagnosis Plan: Mixed hyperlipidemia Discussion: Check CMP, Lipids ICD-9 : 272.4 ICD-10 : E78.2 09/07/2016 Visit Diagnosis Plan: Nicotine dependence, unspecified , uncomplicated Discussion: Tobacco Abuse ICD-9 : 305.1 ICD-10 : F17.200 09/07/2016 Appointment: Martita Simonstel: [address] [place], [place] [phone] 09/06 confirmed~ Annual Well Visit 09/07/2016 Patient Education: Patient Medication Summary Completed 09/07/2016 Care Plan: CHEST X-RAY 2VW FRONTAL&LATL LOINC : 48485-0 Pending 09/07/2016 Visit Plan: F[facility] out [facility] Insurance Paperwork 08/05/2016 Patient Education: Patient Medication Summary Completed 08/05/2016 Appointment: Martita Simons WPtel: [address] [place] [address] UA 04/25/2016 Patient Education: Patient Medication Summary Completed 04/25/2016 Appointment: Martita Simons WPtel: [address] [place] [address] LAB 09/15/2015 Patient Education: Patient Medication Summary Completed 09/15/2015 Visit Plan: SVN with Albuterol 0.083% Q4 hrs and Q2hrs prn. Supportive care. Rest, Fluids, Tylenol/Motrin prn fever or bodyaches. Notify if worsening symptoms. Daily back stretches, moist heat, Biofreeze prn Flexeril/Prednisone Notify if low back pain persists--will need x-rays Patient seeing Chiropracter [employer] 08/31/2015 Appointment: Martita Simons WPtel: [address] [place], [place] [phone] 08/28/15 vm cn 08/28/15 appt confirmed cn FOLLOW UP 08/31/2015 Patient Education: Patient Medication Summary Completed 08/31/2015 Appointment: Martita Simons WPtel: [address] [place], [place] [id number] [place] UA 07/29/2015 Visit Plan: CMP, Lipids today Patient st opped chol meds 1week ago Continue hydrocodone 04/14/2015 Appointment: Martita Simons WPtel: [address] [place], [place] [phone] [place] FOLLOW UP 04/14/2015 Patient Education: Patient Medication Summary Completed 04/14/2015 Appointment: Martita Simons WPtel: [address] [place], [place] [phone] LAB 11/10/2014 Patient Education: Patient Medication Summary Completed 11/10/2014 Visit Plan: Fasting lab at end september for Lipids/LFTs Continue hydrocodone at current dose Needs to be on low dose asprin 81mg daily With upcoming trip need to stop every 2hours and get out and stretch 10/07/2014 Appointment: Martita Simons WPtel: [address] [place], [place] [phone] FOLLOW UP 10/07/2014 Patient Education: Patient Medication Summary Completed 10/07/2014 Visit Plan: Lab discussed Will keep meds the same Keep hydrocodone at current dose--discussed schedule change on May 05 05/01/2014 Appointment: aMrtita Simons WPtel: [address] [place] [phone] 04/29 confirmed when in for labs; asked if he still wanted a reminder call on Monday and he said no he would be here. FOLLOW UP 05/01/2014 Patient Education: Patient Medication Summary Completed 05/01/2014 Appointment: Martita Simons WPtel: [address] [place] [phone] [place] LAB 04/29/2014 Patient Education: Patient Medication Summary Completed 04/29/2014 Appointment: Martita Simons WPtel: [address] [place] [phone] LAB 12/18/2013 Patient Education: Patient Medication Summary Completed 12/18/2013 Appointment: Martita Simons WPtel: [address] [place] [phone] 12/16 FOLLOW UP 12/17/2013 Patient Education: Patient Medication Summary Completed 12/17/2013 Visit Plan: Check CXR Start SVNs with al buterol 0.083% QID 12/11/2012 Appointment: Martita Simons WPtel: [address] [place], [place] [phone] FOLLOW UP 12/11/2012 Patient Education: Patient Medication Summary Completed 12/11/2012 Visit Plan: Zithromax for 1wk Prednisone for 1wk Symbicort 160/4.5 2p BID 12/04/2012 Appointment: Martita Smions WPtel: [address] [place], [place] [phone] ACUTE ILLNESS 12/04/2012 Patient Education: Patient Medication Summary Completed 12/04/2012 Visit Plan: Continue nystatin/TAC cream and add Lamisil for next month No lipitor for next month If rash persists then will need biopsy Trial of chantix--warned of suicidal ideation/depression Call in 1mo on finger lesion and chantix 08/14/2012 Appointment: Martita Simons WPtel: [address] [place] [phone] 08/13 no answer...08/13 pt called back and confirmed OFFICE SURGERY 08/14/2012 Patient Education: Patient Medication Summary Completed 08/14/2012 Appointment: Martita Simons WPtel: [address] [place] [phone] FOLLOW UP 07/17/2012 Patient Education: Patient Medication Summary Completed 07/17/2012 Appointment: Martita Simonstel: [address] [place], [place] [phone] Appointment was confirmed by CN on 06/29 12/5 pt called, in family, was in [place] just got yash k /4 - [facility] ACUTE ILLNESS 07/02/2012 Visit Plan: Obtain US results of KELVIN PINEDA coumadin as has been 3mos and start Aspirin 325mg daily Check CMP, Lipids, CBC, ESR, CRP today 03/20/2012 Appointment: Martita Simonstel: [address] [place], [place] [phone] FOLLOW UP 03/20/2012 Patient Education: Patient Medication Summary Completed 03/20/2012 Appointment: Martita Simons WPtel: [address] [place] [address] [place] Patient called 2 hours past appt. Said saw a specialist today and specialist is not concerned about blod clot so doesnt want to reschedule-CN FOLLOW UP 12/14/2011 Appointment: Martita Simons WPtel: [address] [place], [place] [phone] 12/13/2011 Visit Plan: Continue coumadin--IM is fol lowing level--discussed will likely need 6-12wks Observe contusion to right lower back Fwup with ortho as scheduled 12/08/2011 Appointment: Martita Simons WPtel: [address] [place] [address] ACUTE ILLNESS 12/08/2011 Patient Education: Patient Medication Summary Completed 12/08/2011 Visit Plan: Check fasting lab when goes for pre-op lab including CMP, CBC, Lipids, TSH, Free T4, PSA, uric acid Needs colonoscopy Hydrocodone refilled #80 to [facility] 08/11/2011 Appointment: Martita Simons WPtel: [address] [place], [place] [phone] ESTABLISHED PATIENT 08/11/2011 Patient Education: Patient Medication Summary Completed 08/11/2011 Visit Plan: Obtain most recent lab resul ts Cont current meds Explained that cannot refill pain meds without current rx Discussed Synvisc injections and see ortho as oxycontin for knee arthritis is strong pain med 05/26/2010 Appointment: Martita Simons WPtel: [address] [place], [place] [phone] NEW PATIENT 05/26/2010 Patient Education: Patient Medication Summary Completed 05/26/2010 Instructions Comment . Filled out [employer] Paperwork . SVN with Albuterol 0.083% Q4hrs [...]
--- OUTSIDE RECORDS SUMMARY | 2020-01-12 17:42 | XMS REPORT | CCD ---
Author Author Syd Simons D.O. 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 Name Role Phone Martita Simons D.O., PP Unavailable CCM Unavailable Summary Purpose Interface Exchange Insurance Providers Payer name Policy type / Coverage type Covered democrat ID Effective Begin Date Effective End Date [facility] Commercial Insurance [id number] Unknown Family history Brother Diagnosis Age At Onset No Family Disease Entered N/A Father Diagnosis Age At Onset No Family Disease Entered N/A Mother Diagnosis Age At Onset No Family Disease Entered N/A Social History Social History Element Codes Description Effective Dates Tobacco history SNOMED CT: 10228522 Current every day smoker 06/2012 Number of [...] hydrocodone 10 mg-acetaminophen 325 mg tablet RxNorm: 803987 1 Tablet(s) PO Q6H as needed for pain 09/26/2019 No Stop Date Active (Response to an electronic controlled substance [facility]ill [id number]|1|0|1) hydrocodone 10 mg-acetaminophen 325 mg tablet RxNorm: 939383 1 Tablet(s) PO Q6H as needed for pain 08/26/2019 09/25/2019 Inactive (Response to an electronic controlled substance refill request - RxReferenceNumber: [id number]|1|0|1) hydrocodone 10 mg-acetaminophen 325 mg tablet RxNorm: 294352 1 Tablet(s) PO Q6H as needed for pain 07/25/2019 08/25/2019 Inactive (Response to an electronic controlled substance refill request - RxReferenceNumber: [id number]|1|0|1) hydrocodone 10 mg-acetaminophen 325 mg tablet RxNorm: 837568 1 Tablet(s) PO Q6H as needed for pain 06/26/2019 07/24/2019 Inactive (Response to an electronic controlled substance refill request - RxReferenceNumber: [id number]|1|0|1) hydrocodone 10 mg-acetaminophen 325 mg tablet RxNorm: 745111 1 Tablet(s) PO Q6H as needed for pain 05/28/2019 06/25/2019 Inactive (Response to an electronic controlled substance refill request - RxReferenceNumber: [id number]|1|0|1) hydrocodone 10 mg-acetaminophen 325 mg tablet RxNorm: 670726 1 Tablet(s) PO Q6H as needed for pain 02/25/2019 05/27/2019 Inactive (Response to an electronic controlled substance refill request - RxReferenceNumber: [id number]|1|0|1) hydrocodone 10 mg-acetaminophen 325 mg tablet RxNorm: 081941 1 Tablet(s) PO Q6H as needed for pain 11/26/2018 02/24/2019 Inactive (Response to an electronic controlled substance refill request - RxReferenceNumber: [id number]|1|0|1) hydrocodone 10 mg-acetaminophen 325 mg tablet RxNorm: 037007 1 Tablet(s) PO Q6H as needed for pain 10/30/2018 11/25/2018 Inactive (Response to an electronic controlled substance refill request - RxReferenceNumber: [id number]|1|0|1) hydrocodone 10 mg-acetaminophen 325 mg tablet RxNorm: 080565 1 Tablet(s) PO Q6H as needed for pain 09/26/2018 10/29/2018 Inactive (Response to an electronic controlled substance refill request - RxReferenceNumber: [id number]|1|0|1) hydrocodone 10 mg-acetaminophen 325 mg tablet RxNorm: 852295 1 Tablet(s) PO Q6H as needed for pain 08/30/2018 09/25/2018 Inactive (Response to an electronic controlled substance refill request - RxReferenceNumber: [id number]|1|0|1) hydrocodone 10 mg-acetaminophen 325 mg tablet RxNorm: 971781 1 Tablet(s) PO Q6H as needed for pain 08/01/2018 08/29/2018 Inactive (Response to an electronic controlled substance refill request - RxReferenceNumber: [id number]|1|0|1) hydrocodone 10 mg-acetaminophen 325 mg tablet RxNorm: 720480 1 Tablet(s) PO Q6H as needed for pain 07/04/2018 07/31/2018 Inactive (Response to an electronic controlled substance refill request - RxReferenceNumber: [id number]|1|0|1) hydrocodone 10 mg-acetaminophen 325 mg tablet RxNorm: 686021 1 Tablet(s) PO Q6H as needed for pain 05/31/2018 07/03/2018 Inactive (Response to an electronic controlled substance refill request - RxReferenceNumber: [id number]|1|0|1) hydrocodone 10 mg-acetaminophen 325 mg tablet RxNorm: 365688 1 Tablet(s) PO Q6H as needed for pain 05/01/2018 05/30/2018 Inactive (Response to an electronic controlled substance refill request - RxReferenceNumber: [id number]|1|0|1) hydrocodone 10 mg-acetaminophen 325 mg tablet RxNorm: 183608 1 Tablet(s) PO Q6H as needed for pain 04/03/2018 04/30/2018 Inactive (Response to an electronic controlled substance refill request - RxReferenceNumber: [id number]|1|0|1) hydrocodone 10 mg-acetaminophen 325 mg tablet RxNorm: 805412 1 Tablet(s) PO Q6H as needed for pain 02/26/2018 04/02/2018 Inactive (Response to an electronic controlled substance refill request - RxReferenceNumber: [id number]|1|0|1) clotrimazole-betamethasone 1 %-0.05 % topical cream RxNorm: 623208 TOP As Directed CALL IF NO IMPROVEMENT IN 2 WEEKS 01/30/2018 01/29/2018 Inact kole [SAVINGS FOR UNINSURED PATIENTS -- BIN:[id number], PCN: [id number], Group: [id number], ID# [id number], Process claim through [employer], for questions: . THIS IS NOT INSURANCE.] hydrocodone 10 mg-acetaminophen 325 mg tablet RxNorm: 119554 1 Tablet(s) PO Q6H as needed for pain 01/29/2018 02/25/2018 Inactive (Response to an electronic controlled substance refill request - RxReferenceNumber: [id number]|1|0|1) hydrocodone 10 mg-acetaminophen 325 mg tablet RxNorm: 871214 1 Tablet(s) PO Q6H as needed for pain 12/28/2017 01/28/2018 Inactive (Response to an electronic controlled substance refill request - RxReferenceNumber: [id number]|1|0|1) hydrocodone 10 mg-acetaminophen 325 mg tablet RxNorm: 864915 1 Tablet(s) PO Q6H as needed for pain 11/29/2017 12/27/2017 Inactive (Response to an electronic controlled substance refill request - RxReferenceNumber: [id number]|1|0|1) hydrocodone 10 mg-acetaminophen 325 mg tablet RxNorm: 056332 1 Tablet(s) PO Q6H as needed for pain 11/02/2017 11/28/2017 Inactive (Response to an electronic controlled substance refill request - RxReferenceNumber: [id number]|1|0|1) hydrocodone 10 mg-acetaminophen 325 mg tablet RxNorm: 488326 1 Tablet(s) PO Q6H as needed for pain 10/02/2017 11/01/2017 Inactive (Response to an electronic controlled substance refill request - RxReferenceNumber: [id number]|1|0|1) hydrocodone 10 mg-acetaminophen 325 mg tablet RxNorm: 222419 1 Tablet(s) PO Q6H as needed for pain 08/30/2017 10/01/2017 Inactive (Response to an electronic controlled substance refill request - RxReferenceNumber: [id number]|1|0|1) hydrocodone 10 mg-acetaminophen 325 mg tablet RxNorm: 131604 1 Tablet(s) PO Q6H as needed for pain 08/01/2017 08/29/2017 Inactive (Response to an electronic controlled substance refill request - RxReferenceNumber: [id number]|1|0|1) hydrocodone 10 mg-acetaminophen 325 mg tablet RxNorm: 957608 1 Tablet(s) PO Q6H as needed for pain 06/26/2017 07/31/2017 Inactive (Response to an electronic controlled substance refill request - RxReferenceNumber: [id number]|1|0|1) hydrocodone 10 mg-acetaminophen 325 mg tablet RxNorm: 349139 1 Tablet(s) PO Q6H as needed for pain 06/26/2017 06/30/2019 Inactive (Response to an electronic controlled substance refill request - RxReferenceNumber: [id number]|1|0|1) hydrocodone 10 mg-acetaminophen 325 mg tablet RxNorm: 982794 1 Tablet(s) PO Q6H as needed for pain 03/27/2017 06/25/2017 Inactive (Response to an electronic controlled substance refill request - RxReferenceNumber: [id number]|1|0|1) hydrocodone 10 mg-acetaminophen 325 mg tablet RxNorm: 487736 1 Tablet(s) PO Q6H as needed for pain 02/23/2017 03/26/2017 Inactive (Response to an electronic controlled substance refill request - RxReferenceNumber: [id number]|1|0|1) hydrocodone 10 mg-acetaminophen 325 mg tablet RxNorm: 392097 1 Tablet(s) PO Q6H as needed for pain 01/24/2017 02/22/2017 Inactive (Response to an electronic controlled substance refill request - RxReferenceNumber: [id number]|1|0|1) hydrocodone 10 mg-acetaminophen 325 mg tablet RxNorm: 254462 1 Tablet(s) PO Q6H as needed for pain 12/27/2016 06/30/2019 Inactive (Response to an electronic controlled substance refill request - RxReferenceNumber: [id number]|1|0|1) hydrocodone 10 mg-acetaminophen 325 mg tablet RxNorm: 710952 1 Tablet(s) PO Q6H as needed for pain 12/27/2016 01/23/2017 Inactive (Response to an electronic controlled substance refill request - RxReferenceNumber: [id number]|1|0|1) hydrocodone 10 mg-acetaminophen 325 mg tablet RxNorm: 792504 1 Tablet(s) PO Q6H as needed for pain 11/23/2016 12/26/2016 Inactive (Response to an electronic controlled substance refill request - RxReferenceNumber: [id number]|1|0|1) hydrocodone 10 mg-acetaminophen 325 mg tablet RxNorm: 585530 1 Tablet(s) PO Q6H as needed for pain 10/20/2016 11/22/2016 Inactive (Response to an electronic controlled substance refill request - RxReferenceNumber: [id number]|1|0|1) hydrocodone 10 mg-acetaminophen 325 mg tablet RxNorm: 377804 1 Tablet(s) PO Q6H as needed for pain 09/26/2016 10/19/2016 Inactive (Response to an electronic controlled substance refill request - RxReferenceNumber: [id number]|1|0|1) hydrocodone 10 mg-acetaminophen 325 mg tablet RxNorm: 856214 1 Tablet(s) PO Q6H as needed for pain 07/27/2016 09/25/2016 Inactive (Response to an electronic controlled substance refill request - RxReferenceNumber: [id number]|1|0|1) hydrocodone 10 mg-acetaminophen 325 mg tablet RxNorm: 578642 1 Tablet(s) PO Q6H as needed for pain 05/04/2016 07/26/2016 Inactive (Response to an electronic controlled substance refill request - RxReferenceNumber: [id number]|1|0|1) hydrocodone 10 mg-acetaminophen 325 mg tablet RxNorm: 142839 1 Tablet(s) PO Q6H as needed for pain 03/31/2016 05/03/2016 Inactive (Response to an electronic controlled substance refill request - RxReferenceNumber: [id number]|1|0|1) citalopram 10 mg tablet RxNorm: 249218 1 Tablet(s) PO QD 09/28/2015 0 09/27/2015 Inactive citalopram 10 mg tablet RxNorm: 703275 1 Tablet(s) PO QD 09/28/2015 0 09/06/2016 Inactive Wellbutrin SR 150 mg tablet,sustained-release RxNorm: 800185 1 Tablet(s) PO QAM 09/25/2015 09/06/2016 Inactive prednisone 20 mg tablet RxNorm: 734699 1 Tablet(s) PO T ID for 3 days then 1 po BID for 3 days then one daily for 3 days 08/31/2015 09/06/2016 Inactiv e cyclobenzaprine 10 mg tablet RxNorm: 880959 1 Tablet(s) PO TID as needed for muscle spasm 08/31/2015 07/17/2017 Inactive hydrocodone 10 mg-acetaminophen 325 mg tablet RxNorm: 997026 1 Tablet(s) PO Q6H as needed for pain 08/26/2015 03/30/2016 Inactive (Response to an electronic controlled substance refill request - RxReferenceNumber: [id number]|1|0|1) hydrocodone 10 mg-acetaminophen 325 mg tablet RxNorm: 129870 1 Tablet(s) PO Q6H as needed for pain 07/28/2015 08/25/2015 Inactive (Response to an electronic controlled substance refill request - RxReferenceNumber: [id number]|1|0|1) hydrocodone 10 mg-acetaminophen 325 mg tablet RxNorm: 406037 1 Tablet(s) PO Q6H as needed for pain 06/23/2015 07/27/2015 Inactive (Response to an electronic controlled substance refill request - RxReferenceNumber: [id number]|1|0|1) hydrocodone 10 mg-acetaminophen 325 mg tablet RxNorm: 797472 1 Tablet(s) PO Q6H as needed for pain 05/21/2015 06/22/2015 Inactive (Response to an electronic controlled substance refill request - RxReferenceNumber: [id number]|1|0|1) azithromycin 250 mg tablet RxNorm: 947797 2 Tablet(s) P O on day one, then one tablet on days 2 - 5 04/27/2015 08/30/2015 Inactive hydrocodone 10 mg-acetaminophen 325 mg tablet RxNorm: 624877 1 Tablet(s) PO Q6H as needed for pain 03/25/2015 05/20/2015 Inactive (Response to an electronic controlled substance refill request - RxReferenceNumber: [id number]|1|0|1) hydrocodone 10 mg-acetaminophen 325 mg tablet RxNorm: 470258 1 Tablet(s) PO Q6H as needed for pain 02/24/2015 03/24/2015 Inactive (Response to an electronic controlled substance refill request - RxReferenceNumber: [id number]|1|0|1) hydrocodone 10 mg-acetaminophen 325 mg tablet RxNorm: 035317 1 Tablet(s) PO Q6H as needed for pain 01/23/2015 02/23/2015 Inactive (Response to an electronic controlled substance refill request - RxReferenceNumber: [id number]|1|0|1) hydrocodone 10 mg-acetaminophen 325 mg tablet RxNorm: 059118 1 Tablet(s) PO Q6H as needed for pain 12/23/2014 01/22/2015 Inactive (Response to an electronic controlled substance refill request - RxReferenceNumber: [id number]|1|0|1) hydrocodone 10 mg-acetaminophen 325 mg tablet RxNorm: 344321 1 Tablet(s) PO Q6H as needed for pain 11/24/2014 12/22/2014 Inactive (Response to an electronic controlled substance refill request - RxReferenceNumber: [id number]|1|0|1) hydrocodone 10 mg-acetaminophen 325 mg tablet RxNorm: 797843 1 Tablet(s) PO Q6H as needed for pain 10/28/2014 11/23/2014 Inactive (Response to an electronic controlled substance refill request - RxReferenceNumber: [id number]|1|0|1) hydrocodone 10 mg-acetaminophen 325 mg tablet RxNorm: 948457 1 Tablet(s) PO Q6H as needed for pain 09/25/2014 10/27/2014 Inactive (Response to an electronic controlled substance refill request - RxReferenceNumber: [id number]|1|0|1) Lipitor 80 mg tablet RxNorm: 630089 1 Tablet(s) PO QHS 09/24/2014 Inactive hydrocodone 10 mg-acetaminophen 325 mg tablet RxNorm: 523457 1 Tablet(s) PO Q6H as needed for pain 07/30/2014 09/24/2014 Inactive (Response to an electronic controlled substance refill request - RxReferenceNumber: [id number]|1|0|1) hydrocodone 10 mg-acetaminophen 325 mg tablet RxNorm: 230834 1 Tablet(s) PO Q6H as needed for pain 05/27/2014 07/29/2014 Inactive (Response to an electronic controlled substance refill request - RxReferenceNumber: [id number]|1|0|1) clotrimazole-betamethasone 1 %-0.05 % topical cream RxNorm: 247685 TOP As Directed 05/01/2014 08/30/2015 Inactive [SAVINGS FOR UNI NSURED PATIENTS -- BIN:[id number], PCN: ASPROD1, Group: [id number], ID# [id number], Process claim through [employer], for questions: . THIS IS NOT INSURANCE.] Lipitor 80 mg tablet RxNorm: 943566 1 Tablet(s) PO QHS 04/28/2014 Inactive hydrocodone 10 mg-acetaminophen 325 mg tablet RxNorm: 531796 1 Tablet(s) PO Q6H as needed for pain 04/28/2014 05/26/2014 Inactive (Response to an electronic controlled substance refill request - RxReferenceNumber: [id number]|1|0|1) hydrocodone 10 mg-acetaminophen 325 mg tablet RxNorm: 231862 1 Tablet(s) PO Q6H as needed for pain 03/27/2014 04/27/2014 Inactive (Response to an electronic controlled substance refill request - RxReferenceNumber: [id number]|1|0|1) hydrocodone 10 mg-acetaminophen 325 mg tablet RxNorm: 093502 1 Tablet(s) PO Q6H as needed for pain 12/20/2013 12/20/2013 Inactive (Appended: Co ntrolled substance eRx refill - RxReferenceNumber: [id number]|1|0|1) hydrocodone 10 mg-acetaminophen 325 mg tablet RxNorm: 778837 TAKE 1 TABLET BY MOUTH EVERY 6 HOURS NEEDED FOR PAIN 12/20/2013 01/12/2014 Inactive (Response to an electronic controlled substance refill request - RxReferenceNumber: [id number]|1|0|1) hydrocodone 10 mg-acetaminophen 325 mg tablet RxNorm: 750269 1 Tablet(s) PO Q6H as needed for pain 09/03/2013 12/19/2013 Inactive (Appended: Co ntrolled substance eRx refill - RxReferenceNumber: [id number]|1|0|1) hydrocodone 10 mg-acetaminophen 325 mg tablet RxNorm: 523967 Tablet(s) PO TAKE 1 TABLET BY MOUTH EVERY 6 HOURS NEEDED FOR PAIN 08/08/2013 09/03/2013 Inactive (Appended: Controlled substance eRx refill - RxReferenceNumber: [id number]|1|0|1) hydrocodone 10 mg-acetaminophen 325 mg tablet RxNorm: 972672 Tablet(s) PO TAKE 1 TABLET BY MOUTH EVERY 6 HOURS NEEDED FOR PAIN 07/11/2013 08/07/2013 Inactive (Appended: Controlled substance eRx refill - RxReferenceNumber: [id number]|1|0|1) hydrocodone 10 mg-acetaminophen 325 mg tablet RxNorm: 482214 2 Tablet(s) PO TAKE 1 TABLET BY MOUTH EVERY 6 HOURS NEEDED FOR PAIN 06/12/2013 3 Inactive (Appended: Controlled substance eRx ref ill - RxReferenceNumber: [id number]|1|0|1) hydrocodone 10 mg-acetaminophen 325 mg tablet RxNorm: 151217 2 1 Tablet(s) PO Q6H NEEDED FOR PAIN 05/15/2013 06/12/2013 Inactive (Appended: Co ntrolled substance eRx refill - RxReferenceNumber: [id number]|1|0|1) hydrocodone 10 mg-acetaminophen 325 mg tablet RxNorm: 682744 2 Tablet(s) PO TAKE 1 TO 2 TABLETS BY MOUTH EVERY 6 HOURS NEEDED FOR PAIN 04/18/2013 No Stop Date Active (Appended: Controlled substa nce eRx refill - RxReferenceNumber: [id number]|1|0|1) hydrocodone 10 mg-acetaminophen 325 mg tablet RxNorm: 263892 2 Tablet(s) PO TAKE 1 TO 2 TABLETS BY MOUTH EVERY 6 HOURS NEEDED FOR PAIN 03/19/2013 No Stop Date Active (Appended: Controlled substa nce eRx refill - RxReferenceNumber: [id number]|1|0|1) hydrocodone 10 mg-acetaminophen 325 mg tablet RxNorm: 346119 2 Tablet(s) PO TAKE 1 TO 2 TABLETS BY MOUTH EVERY 6 HOURS NEEDED FOR PAIN 02/06/2013 Inactive (Appended: Controlled substance eRx refi ll - RxReferenceNumber: [id number]|1|0|1) hydrocodone 10 mg-acetaminophen 325 mg tablet RxNorm: 995256 2 Tablet(s) PO TAKE 1 TO 2 TABLETS BY MOUTH EVERY 6 HOURS NEEDED FOR PAIN 01/08/201304/2013 Inactive (Appended: Controlled substance eRx ref ill - RxReferenceNumber: [id number]|1|0|1) Zithromax 250 mg tablet RxNorm: 117053 2 Tablet(s) PO QD 12/04/2012 0 12/10/2012 Inactive prednisone 20 mg tablet RxNorm: 383089 1 Tablet(s) PO BID 12/04/2012 12/10/2012 Inactive atorvastatin 40 mg tablet RxNorm: 171762 1 Tablet(s) PO QD 11/09/19 13 12/17/2013 Inactive hydrocodone 10 mg-acetaminophen 325 mg tablet RxNorm: 925931 2 Tablet(s) PO TAKE 1 TO 2 TABLETS BY MOUTH EVERY 6 HOURS NEEDED FOR PAIN 10/18/201205/2013 Inactive (Appended: Controlled substance eRx ref ill - RxReferenceNumber: [id number]|1|0|1) hydrocodone 10 mg-acetaminophen 325 mg tablet RxNorm: 812780 2 1-2 Tablet(s) PO Q6H as needed for pain 09/06/2012 10/18/2012 Inactive Lamisil 250 mg tablet RxNorm: 550678 1 Tablet(s) PO QD 08/14/2012 Inactive atorvastatin 40 mg tablet RxNorm: 815159 1 Tablet(s) PO QD 08/08/19 13 11/05/2012 Inactive prednisone 20 mg tablet RxNorm: 192059 1 Tablet(s) PO BID 07/17/2012 07/23/2012 Inactive Wellbutrin SR 150 mg tablet,extended release RxNorm: 436097 1 T ablet(s) PO BID 07/17/2012 08/13/2012 Inactive meloxicam 15 mg tablet RxNorm: 274658 1 Tablet(s) PO QD for pain 07/16/2012 Inactive atorvastatin 40 mg tablet RxNorm: 904839 1 Tablet(s) PO QD 06/27/20 12 08/07/2012 Inactive hydrocodone-acetaminophen 10 mg-325 mg tablet RxNorm: 031507 2 1-2 Tablet(s) PO Q6H as needed for pain 05/23/2012 No Stop Date Active hydrocodone-acetaminophen 10 mg-325 mg tablet RxNorm: 318188 2 1-2 Tablet(s) PO Q6H as needed for pain 04/24/2012 No Stop Date Active hydrocodone-acetaminophen 10 mg-325 mg tablet RxNorm: 862437 2 1-2 Tablet(s) PO Q6H as needed for pain 02/08/2012 No Stop Date Active hydrocodone-acetaminophen 10 mg-325 mg Tab RxNorm: 0936893 1-2 Tablet(s) PO Q6H as needed for pain 01/02/2012 No Stop Date Active hydrocodone-acetaminophen 10 mg-325 mg Tab RxNorm: 2778094 1-2 Tablet(s) PO Q6H as needed for pain 11/29/2011 No Stop Date Active hydrocodone-acetaminophen 10 mg-325 mg Tab RxNorm: 7444747 1-2 Tablet(s) PO Q6H as needed for pain 10/24/2011 No Stop Date Active hydrocodone-acetaminophen 10 mg-325 mg Tab RxNorm: 4321137 1-2 Tablet(s) PO Q6H as needed for pain 10/07/2011 No Stop Date Active simvastatin 40 mg Tab RxNorm: 397651 1 Tablet(s) PO QHS 08/11/2011 Inactive clopidogrel 75 mg tablet RxNorm: 960648 1 Tablet(s) PO QD No Start Da te Active metoprolol succinate ER 25 mg tablet,extended release 24 hr RxNorm: 340206 1 Tablet(s) PO QD No Start Date Active Symbicort 160 mcg-4.5 mcg/actuation HFA aerosol inhaler RxNo rm: 6851870 2 INH QD No Start Date Active atorvastatin 40 mg tablet RxNorm: 935158 1 Tablet(s) PO QD No Start D ate Active aspirin 81 mg tablet RxNorm: 236406 1 Tablet(s) PO QD No Start Date Active Vitamin D3 2,000 unit tablet RxNorm: 023019 3 Tablet(s) PO No Start D ate Active lisinopril 5 mg tablet RxNorm: 421517 1 Tablet(s) PO QD No Start Date Active hydrocodone-acetaminophen 10 mg-325 mg Tab RxNorm: 1592461 1-2 Tablet(s) PO Q6H as needed for pain No Start Date 10/06/2011 Inactive Wellbutrin SR 150 mg tablet,sustained-release RxNorm: 167732 1 Tablet(s) PO QAM No Start Date 09/24/2015 Inactive OxyContin 15 mg 12 hr Tab RxNorm: 0514033 1 Tablet(s) PO BID No Sta rt Date 08/10/2011 Inactive warfarin 5 mg Tab RxNorm: 193799 1 Tablet(s) PO QD No Start Date 03/01 Inactive albuterol sulfate 1.25 mg/3 mL Neb Solution RxNorm: 346587 1 Unit Dose INH prn wheezing, congestion, shortness of breath No Start Date 04/30/2014 Inacti ve azithromycin 250 mg tablet RxNorm: 333629 2 Tablet(s) P O on day one, then one tablet on days 2 - 5 No Start Date 04/26/2015 Inactive warfarin 10 mg Tab RxNorm: 386168 1 Tablet(s) PO QOD No Start Date Inactive Symbicort Inhl RxNorm: Inhalation No Start Date 12/16/2013 Inactive Trilipix 135 mg Cap RxNorm: 921767 1 Capsule(s) PO QD No Start Date 0 12/07/2011 Inactive Chantix Starting Month Box 0.5 mg (11)-1 mg (42) table ts in dose pack RxNorm: 340680 Tablet(s) PO as directed No Start Date 12/03/2012 Inactive clotrimazole-betamethasone 1 %-0.05 % topical cream RxNorm: 781281 TOP As Directed No Start Date 04/30/2014 Inactive nystatin-triamcinolone 100,000 unit/g-0.1 % Topical Cream Rx Norm: 4627969 Application TOP BID for 2-4weeks No Start Date 12/03/2012 Inactive Lovastatin 20 mg Tab RxNorm: 012939 1 Tablet(s) PO QHS No Start Date 08/10/2011 Inactive krill oil oral RxNorm: 88001 oral No Start Date 06/30/2019 Inacti ve warfarin 7.5 mg Tab RxNorm: 649924 1 Tablet(s) PO QOD No Start Date 1 09/16/2011 Inactive Lipitor 80 mg tablet RxNorm: 458842 1 Tablet(s) PO QHS No Start Date 04/27/2014 Inactive simvastatin 40 mg Tab RxNorm: 159176 1 Tablet(s) PO QHS No Start Da te 08/10/2011 Inactive Gemfibrozil 600 mg Tab RxNorm: 319323 1 Tablet(s) PO QHS No Start D ate 08/10/2011 Inactive Medication Administered No Medication Administered data Immunizations No Immunization data Results Observation Observation Code Item Item Code Result Date [facility] Location COMPLETE BLOOD COUNT [id number] WBC 9.7 10e9/L 06/19/20 18 Unknown COMPLETE BLOOD COUNT [id number] RBC 5.35 10e12/L 2017 Unknown COMPLETE BLOOD COUNT [id number] HEMOGLOBIN 17.1 g/dL 06/19/20 18 Unknown COMPLETE BLOOD COUNT [id number] HEMATOCRIT 52.4 % 06/19/20 18 Unknown COMPLETE BLOOD COUNT [id number] MCV 97.9 fL 8 Unknown COMPLETE BLOOD COUNT [id number] MCH 32.0 pg 8 Unknown COMPLETE BLOOD COUNT [id number] MCHC 32.6 g/dL 8 Unknown COMPLETE BLOOD COUNT [id number] PLATELET COUNT 257 10e9/L Unknown COMPLETE BLOOD COUNT [id number] Mean Plt Volume 11.2 fL Unknown COMPLETE BLOOD COUNT [id number] Neut Auto 54.6 % 8 Unknown COMPLETE BLOOD COUNT [id number] Lymph Auto 33.3 % 06/19/20 18 Unknown COMPLETE BLOOD COUNT [id number] [place] Auto 9.1 % 8 Unknown COMPLETE BLOOD COUNT [id number] RDW 14.4 % 8 Unknown COMPLETE BLOOD COUNT [id number] Eos Auto 2.6 % 8 Unknown COMPLETE BLOOD COUNT [id number] Baso Auto 0.4 % 8 Unknown COMPLETE BLOOD COUNT [id number] Neutrophil Abs 5.30 10e9/L Unknown COMPLETE BLOOD COUNT [id number] Lymphocyte Abs 3.23 10e9/L Unknown COMPLETE BLOOD COUNT [id number] Monocyte Abs 0.88 10e9/L 06/01 Unknown COMPLETE BLOOD COUNT [id number] Eosinophil Abs 0.25 10e9/L Unknown COMPLETE BLOOD COUNT [id number] RDW-SD 51.8 fL 8 Unknown COMPLETE BLOOD COUNT [id number] Basophil Abs 0.04 10e9/L 06/01 Unknown LIPID GROUP 50655 Cholesterol 222 mg/dL 06/19/2018 Unkno wn LIPID GROUP 26218 Triglyceride 111 mg/dL 06/19/2018 Unkn own LIPID GROUP 79396 HDL CHOLESTEROL 37 mg/dL 06/19/2018 U nknown LIPID GROUP 84818 Chol/HDL Ratio 6.00 ratio 06/19/2018 U nknown LIPID GROUP 45563 NON-HDL Chol 185 mg/dL 06/19/2018 Unkn own LIPID GROUP 83998 LDL Cholesterol 163 mg/dL 06/19/2018 U nknown VITAMIN B 12 69794 VITAMIN B12 532 pg/mL 06/19/2018 Unkn own THYROID STIMULATING HORMONE 35436 TSH 2.685 uIU/mL 06/19/2018 Unknown COMPREHENSIVE METABOLIC 46352 AST 15 U/L 2017 Unknown COMPREHENSIVE METABOLIC 08306 ALT 21 U/L 2017 Unknown COMPREHENSIVE METABOLIC 38436 BUN 16 mg/dL 2017 Unknown COMPREHENSIVE METABOLIC 75656 ALBUMIN 4.1 g/dL 2017 Unknown COMPREHENSIVE METABOLIC 54182 CHLORIDE 99 mmol/L 2017 Unknown COMPREHENSIVE METABOLIC 81995 Bili Total 0.4 mg/dL 06/19 Unknown COMPREHENSIVE METABOLIC 04640 ALK PHOS 43 U/L 2017 Unknown COMPREHENSIVE METABOLIC 50716 SODIUM 136 mmol/L 06/19 Unknown COMPREHENSIVE METABOLIC 97307 CREATININE 0.82 mg/dL 06/01 Unknown COMPREHENSIVE METABOLIC 46825 CALCIUM 9.5 mg/dL 2017 Unknown COMPREHENSIVE METABOLIC 75654 POTASSIUM 5.2 mmol/L 06/19 Unknown COMPREHENSIVE METABOLIC 83904 Total Protein 6.7 g/dL Unknown COMPREHENSIVE METABOLIC 22275 Glucose 81 mg/dL 2017 Unknown COMPREHENSIVE METABOLIC 84925 Bicarbonate 30 mmol/L 06/01 Unknown COMPREHENSIVE METABOLIC 29547 AGAP 7 mmol/L 2017 Unknown FREE T4 91690 T4 Free 0.85 ng/dL 06/19/2018 Unknown GFR CALC 1592589 GFR Non Afr Amr >60 mL/min 06/19/2018 Un known GFR CALC 6483072 GFR Afr Amr >60 mL/min 06/19/2018 Unknow n VITAMIN D TOTAL (25 HYDROXY) 13821 Vitamin D 25 [place] 24.1 ng/mL 06/19/2018 Unknown PSA EQUIMOLAR TROY 82058 PSA Total 0.88 ng/mL 8 Unknown GFR CALC 1860191 GFR Non Afr Amr >60 mL/min 09/09/2016 Un known GFR CALC 6459558 GFR Afr Amr >60 mL/min 09/09/2016 Unknow n COMPLETE BLOOD COUNT 5703484 WBC 11.7 10e9/L 017 Unknown COMPLETE BLOOD COUNT 9203296 RBC 5.54 10e12/L 2016 Unknown COMPLETE BLOOD COUNT 5091998 HEMOGLOBIN 17.6 g/dL 09/09/19 17 Unknown COMPLETE BLOOD COUNT 8917902 HEMATOCRIT 52.3 % 09/09/19 17 Unknown COMPLETE BLOOD COUNT 4063963 MCV 94.4 fL 7 Unknown COMPLETE BLOOD COUNT 1604096 MCH 31.8 pg 7 Unknown COMPLETE BLOOD COUNT 2086166 MCHC 33.7 g/dL 7 Unknown COMPLETE BLOOD COUNT 3200956 PLATELET COUNT 259 10e9/L 04/2017 Unknown COMPLETE BLOOD COUNT 8182845 Mean Plt Volume 11.2 fL 04/2017 Unknown COMPLETE BLOOD COUNT 3552548 Neut Auto 53.6 % 7 Unknown COMPLETE BLOOD COUNT 5406763 Lymph Auto 36.2 % 09/09/19 17 Unknown COMPLETE BLOOD COUNT 3553183 [place] Auto 7.9 % 7 Unknown COMPLETE BLOOD COUNT 2115579 RDW 14.2 % 7 Unknown COMPLETE BLOOD COUNT 3617783 Eos Auto 2.1 % 7 Unknown COMPLETE BLOOD COUNT 4340532 Baso Auto 0.2 % 7 Unknown COMPLETE BLOOD COUNT 0258336 Neutrophil Abs 6.27 10e9/L Unknown COMPLETE BLOOD COUNT 8928727 Lymphocyte Abs 4.24 10e9/L Unknown COMPLETE BLOOD COUNT 6304945 Monocyte Abs 0.92 10e9/L 08/31 Unknown COMPLETE BLOOD COUNT 0813564 Eosinophil Abs 0.25 10e9/L Unknown COMPLETE BLOOD COUNT 1211561 RDW-SD 48.1 fL 7 Unknown COMPLETE BLOOD COUNT 8586794 Basophil Abs 0.02 10e9/L 08/31 Unknown COMPREHENSIVE METABOLIC 09260 AST 19 U/L 2016 Unknown COMPREHENSIVE METABOLIC 64470 ALT 25 U/L 2016 Unknown COMPREHENSIVE METABOLIC 17129 BUN 16 mg/dL 2016 Unknown COMPREHENSIVE METABOLIC 34841 ALBUMIN 4.8 g/dL 2016 Unknown COMPREHENSIVE METABOLIC 19725 CHLORIDE 100 mmol/L 09/09 Unknown COMPREHENSIVE METABOLIC 64599 Bili Total 0.7 mg/dL 09/09 Unknown COMPREHENSIVE METABOLIC 31338 ALK PHOS 50 U/L 2016 Unknown COMPREHENSIVE METABOLIC 79306 SODIUM 136 mmol/L 09/09 Unknown COMPREHENSIVE METABOLIC 66275 CREATININE 0.98 mg/dL 08/31 Unknown COMPREHENSIVE METABOLIC 25130 CALCIUM 9.8 mg/dL 2016 Unknown COMPREHENSIVE METABOLIC 96333 POTASSIUM 4.6 mmol/L 09/09 Unknown COMPREHENSIVE METABOLIC 64079 Total Protein 7.5 g/dL Unknown COMPREHENSIVE METABOLIC 84521 Glucose 104 mg/dL 2016 Unknown COMPREHENSIVE METABOLIC 49018 Bicarbonate 27 mmol/L 08/31 Unknown COMPREHENSIVE METABOLIC 22240 AGAP 9 mmol/L 2016 Unknown FREE T4 03240 T4 Free 1.04 ng/dL 09/09/2016 Unknown THYROID STIMULATING HORMONE 22625 TSH 1.618 uIU/mL 09/09/2016 Unknown LIPID GROUP 35567 Cholesterol 251 mg/dL 09/09/2016 Unkno wn LIPID GROUP 72270 Triglyceride 153 mg/dL 09/09/2016 Unkn own LIPID GROUP 47305 HDL CHOLESTEROL 33 mg/dL 09/09/2016 U nknown LIPID GROUP 24858 Chol/HDL Ratio 7.61 ratio 09/09/2016 U nknown LIPID GROUP 23783 NON-HDL Chol 218 mg/dL 09/09/2016 Unkn own LIPID GROUP 13490 LDL Cholesterol 187 mg/dL 09/09/2016 U nknown LIPID GROUP 58745 HDL TEST 39 MG/DL 09/15/2015 Unknown LIPID GROUP 47109 TRIG 106 MG/DL 09/15/2015 Unknown LIPID GROUP 94711 TEST LDL 152 MG/DL 09/15/2015 Unknown LIPID GROUP 31638 CHOL 212 MG/DL 09/15/2015 Unknown LIPID GROUP 52604 RCHOL/HDL 5.44 RATIO 09/15/2015 Unknow n LIPID GROUP 26770 NON-HDL CH 173 MG/DL 09/15/2015 Unknow n GFR CALC 2960674 GFR AA >60 ML/MIN 09/15/2015 Unknown GFR CALC 8121200 GFR NON-AA >60 ML/MIN 09/15/2015 Unknown COMPREHENSIVE METABOLIC 46252 AST 18 U/L 2015 Unknown COMPREHENSIVE METABOLIC 57692 ALT 28 IU/L 2015 Unknown COMPREHENSIVE METABOLIC 22612 BUN 14 MG/DL 2015 Unknown COMPREHENSIVE METABOLIC 64088 ALBUMIN 4.2 GM/DL 2015 Unknown COMPREHENSIVE METABOLIC 28566 CHLORIDE 101 MMOL/L 09/15 Unknown COMPREHENSIVE METABOLIC 59879 BILI TOT 0.6 MG/DL 2015 Unknown COMPREHENSIVE METABOLIC 15089 ALK PHOS 48 U/L 2015 Unknown COMPREHENSIVE METABOLIC 04887 SODIUM 135 MMOL/L 09/15 Unknown COMPREHENSIVE METABOLIC 64260 CREATININE 0.91 MG/DL 08/31 Unknown COMPREHENSIVE METABOLIC 91353 CALCIUM 9.2 MG/DL 2015 Unknown COMPREHENSIVE METABOLIC 93134 POTASSIUM 4.6 MMOL/L 09/15 Unknown COMPREHENSIVE METABOLIC 12115 PROT TOT 6.6 GM/DL 2015 Unknown COMPREHENSIVE METABOLIC 10309 Glucose 97 MG/DL 2015 Unknown COMPREHENSIVE METABOLIC 38647 BICARB 27 MMOL/L 2015 Unknown COMPREHENSIVE METABOLIC 36159 ANION GAP 7 MEQ/L 2015 Unknown LIPID GROUP 23216 HDL TEST 35 MG/DL 04/14/2015 Unknown LIPID GROUP 16452 TRIG 135 MG/DL 04/14/2015 Unknown LIPID GROUP 28658 TEST LDL 153 MG/DL 04/14/2015 Unknown LIPID GROUP 85036 CHOL 215 MG/DL 04/14/2015 Unknown LIPID GROUP 47399 RCHOL/HDL 6.14 RATIO 04/14/2015 Unknow n LIPID GROUP 44259 NON-HDL CH 180 MG/DL 04/14/2015 Unknow n GFR CALC 7635352 GFR AA >60 ML/MIN 04/14/2015 Unknown GFR CALC 3060945 GFR NON-AA >60 ML/MIN 04/14/2015 Unknown COMPREHENSIVE METABOLIC 52806 AST 23 U/L 2014 Unknown COMPREHENSIVE METABOLIC 97779 ALT 27 IU/L 2014 Unknown COMPREHENSIVE METABOLIC 78074 BUN 15 MG/DL 2014 Unknown COMPREHENSIVE METABOLIC 24190 ALBUMIN 4.2 GM/DL 2014 Unknown COMPREHENSIVE METABOLIC 45746 CHLORIDE 103 MMOL/L 04/14 Unknown COMPREHENSIVE METABOLIC 20632 BILI TOT 0.8 MG/DL 2014 Unknown COMPREHENSIVE METABOLIC 86603 ALK PHOS 50 U/L 2014 Unknown COMPREHENSIVE METABOLIC 99221 SODIUM 134 MMOL/L 04/14 Unknown COMPREHENSIVE METABOLIC 30002 CREATININE 0.93 MG/DL 03/31 Unknown COMPREHENSIVE METABOLIC 07735 CALCIUM 9.4 MG/DL 2014 Unknown COMPREHENSIVE METABOLIC 35605 POTASSIUM 4.4 MMOL/L 04/14 Unknown COMPREHENSIVE METABOLIC 28896 PROT TOT 6.8 GM/DL 2014 Unknown COMPREHENSIVE METABOLIC 17046 Glucose 101 MG/DL 2014 Unknown COMPREHENSIVE METABOLIC 94429 BICARB 25 MMOL/L 2014 Unknown COMPREHENSIVE METABOLIC 88726 ANION GAP 6 MEQ/L 2014 Unknown PSA EQUIMOLAR TROY 74645 PSA EQ 1.04 NG/ML 5 Unknown GFR CALC 4935901 GFR AA >60 ML/MIN 11/10/2014 Unknown GFR CALC 0297196 GFR NON-AA >60 ML/MIN 11/10/2014 Unknown LIPID GROUP 63908 HDL TEST 31 MG/DL 11/10/2014 Unknown LIPID GROUP 86517 TRIG 133 MG/DL 11/10/2014 Unknown LIPID GROUP 34472 TEST LDL 74 MG/DL 11/10/2014 Unknown LIPID GROUP 37858 CHOL 132 MG/DL 11/10/2014 Unknown LIPID GROUP 86007 RCHOL/HDL 4.26 RATIO 11/10/2014 Unknow n LIPID GROUP 24902 NON-HDL CH 101 MG/DL 11/10/2014 Unknow n COMPLETE BLOOD COUNT 6902153 WBC 10.2 10e9/L 015 Unknown COMPLETE BLOOD COUNT 8899407 RBC 5.01 10e12/L 2014 Unknown COMPLETE BLOOD COUNT 9976943 HGB 16.1 g/dL 5 Unknown COMPLETE BLOOD COUNT 8896486 HCT DET 48.1 % 5 Unknown COMPLETE BLOOD COUNT 8316691 MCV 96.0 fL 5 Unknown COMPLETE BLOOD COUNT 4262776 MCH 32.1 pg 5 Unknown COMPLETE BLOOD COUNT 1691289 MCHC 33.5 g/dL 5 Unknown COMPLETE BLOOD COUNT 1148352 PLT 248 10e9/L 11/11/19 15 Unknown COMPLETE BLOOD COUNT 0299011 MPV 11.4 fL 5 Unknown COMPLETE BLOOD COUNT 4102461 GIUSEPPE % 51.2 % 5 Unknown COMPLETE BLOOD COUNT 4981944 LY % 37.4 % 5 Unknown COMPLETE BLOOD COUNT 7636160 MON % 9.2 % 5 Unknown COMPLETE BLOOD COUNT 4075556 EOS % 2.0 % 5 Unknown COMPLETE BLOOD COUNT 3464659 BASO % 0.2 % 5 Unknown COMPLETE BLOOD COUNT 2510297 RDW 14.0 % 5 Unknown COMPLETE BLOOD COUNT 0784782 ABS GIUSEPPE 5.22 10e9/L 015 Unknown COMPLETE BLOOD COUNT 6692572 ABS LYMPH 3.81 10e9/L 015 Unknown COMPLETE BLOOD COUNT 5856300 ABS MONO 0.94 10e9/L 015 Unknown COMPLETE BLOOD COUNT 6373032 ABS EOS 0.20 10e9/L 015 Unknown COMPLETE BLOOD COUNT 4577125 ABS BASO 0.02 10e9/L 015 Unknown COMPLETE BLOOD COUNT 0983283 RDW-SD 47.8 fL 5 Unknown FREE T4 70913 FREE T4 0.92 NG/DL 11/10/2014 Unknown COMPREHENSIVE METABOLIC 22825 AST 18 U/L 2014 Unknown COMPREHENSIVE METABOLIC 92965 ALT 25 IU/L 2014 Unknown COMPREHENSIVE METABOLIC 64756 BUN 16 MG/DL 2014 Unknown COMPREHENSIVE METABOLIC 07504 ALBUMIN 4.5 GM/DL 2014 Unknown COMPREHENSIVE METABOLIC 83080 CHLORIDE 103 MMOL/L 11/10 Unknown COMPREHENSIVE METABOLIC 43079 BILI TOT 0.4 MG/DL 2014 Unknown COMPREHENSIVE METABOLIC 85507 ALK PHOS 53 U/L 2014 Unknown COMPREHENSIVE METABOLIC 59627 SODIUM 135 MMOL/L 11/10 Unknown COMPREHENSIVE METABOLIC 04584 CREATININE 0.97 MG/DL 10/29 Unknown COMPREHENSIVE METABOLIC 43070 CALCIUM 9.4 MG/DL 2014 Unknown COMPREHENSIVE METABOLIC 19012 POTASSIUM 4.4 MMOL/L 11/10 Unknown COMPREHENSIVE METABOLIC 32521 PROT TOT 6.9 GM/DL 2014 Unknown COMPREHENSIVE METABOLIC 19422 Glucose 91 MG/DL 2014 Unknown COMPREHENSIVE METABOLIC 28743 BICARB 26 MMOL/L 2014 Unknown COMPREHENSIVE METABOLIC 22198 ANION GAP 6 MEQ/L 2014 Unknown THYROID STIMULATING HORMONE 44477 TSH 3.791 uIU/ML 11/10/2014 Unknown LIPID GROUP 18190 HDL TEST 35 MG/DL 04/29/2014 Unknown LIPID GROUP 74558 TRIG 123 MG/DL 04/29/2014 Unknown LIPID GROUP 14872 TEST LDL 117 MG/DL 04/29/2014 Unknown LIPID GROUP 36194 CHOL 177 MG/DL 04/29/2014 Unknown LIPID GROUP 84212 RCHOL/HDL 5.06 RATIO 04/29/2014 Unknow n LIPID GROUP 36982 NON-HDL CH 142 MG/DL 04/29/2014 Unknow n COMPREHENSIVE METABOLIC 32641 AST 18 U/L 2013 Unknown COMPREHENSIVE METABOLIC 66237 ALT 29 IU/L 2013 Unknown COMPREHENSIVE METABOLIC 77288 BUN 19 MG/DL 2013 Unknown COMPREHENSIVE METABOLIC 48436 ALBUMIN 4.0 GM/DL 2013 Unknown COMPREHENSIVE METABOLIC 73981 CHLORIDE 106 MMOL/L 04/29 Unknown COMPREHENSIVE METABOLIC 83986 BILI TOT 0.4 MG/DL 2013 Unknown COMPREHENSIVE METABOLIC 35096 ALK PHOS 51 U/L 2013 Unknown COMPREHENSIVE METABOLIC 44880 SODIUM 138 MMOL/L 04/29 Unknown COMPREHENSIVE METABOLIC 92891 CREATININE 0.87 MG/DL 04/02 Unknown COMPREHENSIVE METABOLIC 60612 CALCIUM 9.4 MG/DL 2013 Unknown COMPREHENSIVE METABOLIC 20057 POTASSIUM 4.5 MMOL/L 04/29 Unknown COMPREHENSIVE METABOLIC 67786 PROT TOT 6.8 GM/DL 2013 Unknown COMPREHENSIVE METABOLIC 21719 Glucose 106 MG/DL 2013 Unknown COMPREHENSIVE METABOLIC 79250 BICARB 24 MMOL/L 2013 Unknown COMPREHENSIVE METABOLIC 56224 ANION GAP 8 MEQ/L 2013 Unknown GFR CALC 9263045 GFR AA >60 ML/MIN 04/29/2014 Unknown GFR CALC 4111587 GFR NON-AA >60 ML/MIN 04/29/2014 Unknown LIPID GROUP 62908 HDL TEST 30 MG/DL 12/18/2013 Unknown LIPID GROUP 46027 TRIG 128 MG/DL 12/18/2013 Unknown LIPID GROUP 67096 TEST LDL 166 MG/DL 12/18/2013 Unknown LIPID GROUP 38136 CHOL 222 MG/DL 12/18/2013 Unknown LIPID GROUP 36778 RCHOL/HDL 7.40 RATIO 12/18/2013 Unknow n GFR CALC 1158460 GFR AA >60 ML/MIN 12/18/2013 Unknown GFR CALC 8666874 GFR NON-AA >60 ML/MIN 12/18/2013 Unknown FREE T4 04969 FREE T4 1.07 NG/DL 12/18/2013 Unknown COMPLETE BLOOD COUNT 3513672 WBC 7.2 10e9/L 12/19/19 14 Unknown COMPLETE BLOOD COUNT 5798868 RBC 4.89 10e12/L 2013 Unknown COMPLETE BLOOD COUNT 0467902 HGB 15.5 g/dL 4 Unknown COMPLETE BLOOD COUNT 1312053 HCT DET 46.6 % 4 Unknown COMPLETE BLOOD COUNT 1720704 MCV 95.3 fL 4 Unknown COMPLETE BLOOD COUNT 9537570 MCH 31.7 pg 4 Unknown COMPLETE BLOOD COUNT 9219157 MCHC 33.3 g/dL 4 Unknown COMPLETE BLOOD COUNT 1006657 PLT 246 10e9/L 12/19/19 14 Unknown COMPLETE BLOOD COUNT 4329237 MPV 11.4 fL 4 Unknown COMPLETE BLOOD COUNT 5751733 GIUSEPPE % 48.6 % 4 Unknown COMPLETE BLOOD COUNT 5873959 LY % 37.4 % 4 Unknown COMPLETE BLOOD COUNT 7408506 MON % 10.5 % 4 Unknown COMPLETE BLOOD COUNT 5484971 EOS % 3.2 % 4 Unknown COMPLETE BLOOD COUNT 1658396 BASO % 0.3 % 4 Unknown COMPLETE BLOOD COUNT 5062147 RDW 13.6 % 4 Unknown COMPLETE BLOOD COUNT 4894480 ABS GIUSEPPE 3.50 10e9/L 014 Unknown COMPLETE BLOOD COUNT 3597448 ABS LYMPH 2.69 10e9/L 014 Unknown COMPLETE BLOOD COUNT 7085181 ABS MONO 0.76 10e9/L 014 Unknown COMPLETE BLOOD COUNT 1778549 ABS EOS 0.23 10e9/L 014 Unknown COMPLETE BLOOD COUNT 5149502 ABS BASO 0.02 10e9/L 014 Unknown COMPLETE BLOOD COUNT 2412944 RDW-SD 46.2 fL 4 Unknown COMPREHENSIVE METABOLIC 64490 AST 38 U/L 2013 Unknown COMPREHENSIVE METABOLIC 36524 ALT 33 IU/L 2013 Unknown COMPREHENSIVE METABOLIC 80667 BUN 15 MG/DL 2013 Unknown COMPREHENSIVE METABOLIC 16857 ALBUMIN 4.2 GM/DL 2013 Unknown COMPREHENSIVE METABOLIC 07210 CHLORIDE 103 MMOL/L 12/18 Unknown COMPREHENSIVE METABOLIC 68413 BILI TOT 0.6 MG/DL 2013 Unknown COMPREHENSIVE METABOLIC 44646 ALK PHOS 45 U/L 2013 Unknown COMPREHENSIVE METABOLIC 17065 SODIUM 136 MMOL/L 12/18 Unknown COMPREHENSIVE METABOLIC 76042 CREATININE 0.97 MG/DL 11/29 Unknown COMPREHENSIVE METABOLIC 31409 CALCIUM 9.2 MG/DL 2013 Unknown COMPREHENSIVE METABOLIC 72964 POTASSIUM 4.2 MMOL/L 12/18 Unknown COMPREHENSIVE METABOLIC 53584 PROT TOT 7.0 GM/DL 2013 Unknown COMPREHENSIVE METABOLIC 81454 Glucose 120 MG/DL 2013 Unknown COMPREHENSIVE METABOLIC 29473 BICARB 24 MMOL/L 2013 Unknown COMPREHENSIVE METABOLIC 28244 ANION GAP 9 MEQ/L 2013 Unknown THYROID STIMULATING HORMONE 77351 TSH 1.305 uIU/ML 12/18/2013 Unknown PSA EQUIMOLAR TROY 83691 PSA EQ 1.71 NG/ML 4 Unknown LIPID GROUP 66137 HDL TEST 29 MG/DL 07/17/2012 Unknown LIPID GROUP 60653 TRIG 155 MG/DL 07/17/2012 Unknown LIPID GROUP 59086 TEST LDL 105 MG/DL 07/17/2012 Unknown LIPID GROUP 22001 CHOL 165 MG/DL 07/17/2012 Unknown LIPID GROUP 26867 RCHOL/HDL 5.69 RATIO 07/17/2012 Unknow n GFR CALC 1021259 GFR AA >60 ML/MIN 07/17/2012 Unknown GFR CALC 0006235 GFR NON-AA >60 ML/MIN 07/17/2012 Unknown COMPREHENSIVE METABOLIC 61970 AST 19 U/L 2011 Unknown COMPREHENSIVE METABOLIC 32808 ALT 25 IU/L 2011 Unknown COMPREHENSIVE METABOLIC 15151 BUN 14 MG/DL 2011 Unknown COMPREHENSIVE METABOLIC 83606 ALBUMIN 4.4 GM/DL 2011 Unknown COMPREHENSIVE METABOLIC 26473 CHLORIDE 103 MMOL/L 07/17 Unknown COMPREHENSIVE METABOLIC 32455 BILI TOT 0.6 MG/DL 2011 Unknown COMPREHENSIVE METABOLIC 11256 ALK PHOS 53 U/L 2011 Unknown COMPREHENSIVE METABOLIC 49649 SODIUM 136 MMOL/L 07/17 Unknown COMPREHENSIVE METABOLIC 91693 CREATININE 0.97 MG/DL 06/30 Unknown COMPREHENSIVE METABOLIC 64797 CALCIUM 9.4 MG/DL 2011 Unknown COMPREHENSIVE METABOLIC 41599 POTASSIUM 4.3 MMOL/L 07/17 Unknown COMPREHENSIVE METABOLIC 68226 PROT TOT 6.9 GM/DL 2011 Unknown COMPREHENSIVE METABOLIC 92042 Glucose 102 MG/DL 2011 Unknown COMPREHENSIVE METABOLIC 08910 BICARB 27 MMOL/L 2011 Unknown COMPREHENSIVE METABOLIC 74332 ANION GAP 6 MEQ/L 2011 Unknown ERYTHROCYTE SEDIMENTATION RATE 57431 ESR 14 MM/HR 03/20/2012 Unknown LIPID GROUP 72952 HDL TEST 31 MG/DL 03/20/2012 Unknown LIPID GROUP 33616 TRIG 210 MG/DL 03/20/2012 Unknown LIPID GROUP 98091 TEST LDL 164 MG/DL 03/20/2012 Unknown LIPID GROUP 38318 CHOL 237 MG/DL 03/20/2012 Unknown LIPID GROUP 99965 RCHOL/HDL 7.65 RATIO 03/20/2012 Unknow n GFR CALC 4076249 GFR AA >60 ML/MIN 03/20/2012 Unknown GFR CALC 5574114 GFR NON-AA >60 ML/MIN 03/20/2012 Unknown C-REACTIVE PROTEIN (CRP) QUANT 24458 CRP 0.9 MG/DL 03/20/2012 Unknown COMPLETE BLOOD COUNT 97815 WBC 9.7 10e9/L 03/20/20 12 Unknown COMPLETE BLOOD COUNT 63946 RBC 5.14 10e12/L 2011 Unknown COMPLETE BLOOD COUNT 33712 HGB 15.5 g/dL 2 Unknown COMPLETE BLOOD COUNT 02908 HCT DET 46.9 % 2 Unknown COMPLETE BLOOD COUNT 51717 MCV 91.2 fL 2 Unknown COMPLETE BLOOD COUNT 23987 MCH 30.2 pg 2 Unknown COMPLETE BLOOD COUNT 76693 MCHC 33.0 g/dL 2 Unknown COMPLETE BLOOD COUNT 65187 PLT 280 10e9/L 03/20/20 12 Unknown COMPLETE BLOOD COUNT 35609 MPV 10.6 fL 2 Unknown COMPLETE BLOOD COUNT 04374 GIUSEPPE % 61.5 % 2 Unknown COMPLETE BLOOD COUNT 24774 LY % 26.5 % 2 Unknown COMPLETE BLOOD COUNT 22218 MON % 8.8 % 2 Unknown COMPLETE BLOOD COUNT 31622 EOS % 3.0 % 2 Unknown COMPLETE BLOOD COUNT 74242 BASO % 0.2 % 2 Unknown COMPLETE BLOOD COUNT 58947 RDW 15.3 % 2 Unknown COMPLETE BLOOD COUNT 05852 ABS GIUSEPPE 5.97 10e9/L 012 Unknown COMPLETE BLOOD COUNT 78782 ABS LYMPH 2.57 10e9/L 012 Unknown COMPLETE BLOOD COUNT 55175 ABS MONO 0.85 10e9/L 012 Unknown COMPLETE BLOOD COUNT 98464 ABS EOS 0.29 10e9/L 012 Unknown COMPLETE BLOOD COUNT 31232 ABS BASO 0.02 10e9/L 012 Unknown COMPLETE BLOOD COUNT 25353 RDW-SD 50.3 fL 2 Unknown COMPREHENSIVE METABOLIC 91718 AST 16 U/L 2011 Unknown COMPREHENSIVE METABOLIC 07815 ALT 21 IU/L 2011 Unknown COMPREHENSIVE METABOLIC 83936 BUN 15 MG/DL 2011 Unknown COMPREHENSIVE METABOLIC 94219 ALBUMIN 4.3 GM/DL 2011 Unknown COMPREHENSIVE METABOLIC 63281 CHLORIDE 102 MMOL/L 03/20 Unknown COMPREHENSIVE METABOLIC 69421 BILI TOT 0.5 MG/DL 2011 Unknown COMPREHENSIVE METABOLIC 02874 ALK PHOS 60 U/L 2011 Unknown COMPREHENSIVE METABOLIC 97180 SODIUM 135 MMOL/L 03/20 Unknown COMPREHENSIVE METABOLIC 97370 CREATININE 0.94 MG/DL 03/01 Unknown COMPREHENSIVE METABOLIC 86104 CALCIUM 9.0 MG/DL 2011 Unknown COMPREHENSIVE METABOLIC 41196 POTASSIUM 4.4 MMOL/L 03/20 Unknown COMPREHENSIVE METABOLIC 45386 PROT TOT 6.7 GM/DL 2011 Unknown COMPREHENSIVE METABOLIC 01045 Glucose 96 MG/DL 2011 Unknown COMPREHENSIVE METABOLIC 18672 BICARB 25 MMOL/L 2011 Unknown COMPREHENSIVE METABOLIC 86326 ANION GAP 8 MEQ/L 2011 [place] [address] PRO TIME 21.6 SEC 03/20/2012 Unknow n [place] CJ 00220 INR MCMC 1.8 03/20/2012 Unknow n Procedures Procedure Codes Date ROUTINE VENIPUNCTURE CPT-4: 62884 06/19/2018 ASSAY OF FREE THYROXINE CPT-4: 92361 06/19/2018 ASSAY THYROID STIM HORMONE CPT-4: 96563 06/19/2018 COMPREHEN METABOLIC PANEL CPT-4: 49191 06/19/2018 COMPLETE CBC W/AUTO DIFF WBC CPT-4: 15692 06/19/2018 LIPID PANEL CPT-4: 25600 06/19/2018 ASSAY OF PSA TOTAL CPT-4: 61600 06/19/2018 VITAMIN D TOTAL (25 HYDROXY) CPT-4: 92574 06/19/2018 VITAMIN B-12 CPT-4: 97766 06/19/2018 DEXAMETHASONE SODIUM PHOS CPT-4: J1100 08/31/2017 TRIAMCINOLONE ACET INJ NOS CPT-4: J3301 08/31/2017 DRAIN/INJECT JOINT/BURSA CPT-4: 50634 08/31/2017 ROUTINE VENIPUNCTURE CPT-4: 51601 08/01/2017 COMPREHEN METABOLIC PANEL CPT-4: 36949 08/01/2017 LIPID PANEL CPT-4: 57737 08/01/2017 DRAIN/INJECT JOINT/BURSA CPT-4: 45941 09/12/2016 TRIAMCINOLONE ACET INJ NOS CPT-4: J3301 09/12/2016 DEXAMETHASONE SODIUM PHOS CPT-4: J1100 09/12/2016 ROUTINE VENIPUNCTURE CPT-4: 59349 09/09/2016 ASSAY OF FREE THYROXINE CPT-4: 85251 09/09/2016 ASSAY THYROID STIM HORMONE CPT-4: 66703 09/09/2016 COMPREHEN METABOLIC PANEL CPT-4: 52580 09/09/2016 COMPLETE CBC W/AUTO DIFF WBC CPT-4: 08248 09/09/2016 LIPID PANEL CPT-4: 12843 09/09/2016 SPECIAL REPORTS OR FORMS CPT-4: 42418 08/05/2016 ROUTINE VENIPUNCTURE CPT-4: 43485 09/15/2015 COMPREHEN METABOLIC PANEL CPT-4: 02403 09/15/2015 LIPID PANEL CPT-4: 22496 09/15/2015 PRESCRIP TRANSMIT VIA ERX SY CPT-4: G8553 08/31/2015 ROUTINE VENIPUNCTURE CPT-4: 18003 04/14/2015 COMPREHEN METABOLIC PANEL CPT-4: 44955 04/14/2015 LIPID PANEL CPT-4: 59691 04/14/2015 ROUTINE VENIPUNCTURE CPT-4: 11348 11/10/2014 ASSAY OF FREE THYROXINE CPT-4: 33362 11/10/2014 ASSAY THYROID STIM HORMONE CPT-4: 47361 11/10/2014 COMPREHEN METABOLIC PANEL CPT-4: 70241 11/10/2014 COMPLETE CBC W/AUTO DIFF WBC CPT-4: 85997 11/10/2014 LIPID PANEL CPT-4: 03724 11/10/2014 ASSAY OF PSA TOTAL CPT-4: 86631 11/10/2014 ROUTINE VENIPUNCTURE CPT-4: 61290 04/29/2014 COMPREHEN METABOLIC PANEL CPT-4: 90840 04/29/2014 LIPID PANEL CPT-4: 15821 04/29/2014 ROUTINE VENIPUNCTURE CPT-4: 99327 12/18/2013 ASSAY OF FREE THYROXINE CPT-4: 39534 12/18/2013 ASSAY THYROID STIM HORMONE CPT-4: 63306 12/18/2013 COMPREHEN METABOLIC PANEL CPT-4: 43068 12/18/2013 COMPLETE CBC W/AUTO DIFF WBC CPT-4: 66691 12/18/2013 LIPID PANEL CPT-4: 79676 12/18/2013 ASSAY OF PSA TOTAL CPT-4: 58233 12/18/2013 ROUTINE VENIPUNCTURE CPT-4: 83981 07/17/2012 COMPREHEN METABOLIC PANEL CPT-4: 43435 07/17/2012 LIPID PANEL CPT-4: 50494 07/17/2012 ROUTINE VENIPUNCTURE CPT-4: 13550 03/20/2012 COMPLETE CBC W/AUTO DIFF WBC CPT-4: 91098 03/20/2012 RBC SED RATE AUTOMATED CPT-4: 22325 03/20/2012 C-REACTIVE PROTEIN CPT-4: 75490 03/20/2012 COMPREHEN METABOLIC PANEL CPT-4: 42059 03/20/2012 LIPID PANEL CPT-4: 12317 03/20/2012 PROTHROMBIN TIME CPT-4: 80444 03/20/2012 Vital Signs Date Vital 10/07/2019 Blood Pressure 1: 142/83 Code: 8480-6 BMI: 31.3 Code: 17604-9 Heart Rate 1: 80 bpm Height: 6'2" Respiratory Rate: 17 bpm SpO2: 99% Tempera ture: 36.7 (C) / 98.1 (F) Weight: 244 lbs 07/01/2019 Blood Pressure 1: 114/80 Code: 8480-6 BMI: 30.4 Code: 05269-5 Heart Rate 1: 72 bpm Height: 6'2" [...] 1: 126/82 Code: 8480-6 BMI: 31.2 Code: 65409-6 Heart Rate 1: 84 bpm Height: 6'2" Respiratory Rate: 20 bpm SpO2: 94% Tempera ture: 37.0 (C) / 98.6 (F) Weight: 243 lbs 03/02/2018 Blood Pressure 1: 122/80 Code: 8480-6 BMI: 30.8 Code: 92171-3 Heart Rate 1: 74 bpm Height: 6'2" Respiratory Rate: 20 bpm SpO2: 95% Tempera ture: 37.1 (C) / 98.8 (F) Weight: 240 lbs 08/31/2017 Blood Pressure 1: 136/90 Code: 8480-6 Heart Rate 1: 76 bpm Respiratory Rate: 20 bpm Temperature: 36.7 (C) / 98.0 (F) Weight: 247 lbs 07/18/2017 Blood Pressure 1: 126/78 Code: 8480-6 BMI: 31.3 Code: 48686-1 Heart Rate 1: 72 bpm Height: 6'2" Respiratory Rate: 20 bpm SpO2: 94% Tempera ture: 37.0 (C) / 98.6 (F) Weight: 244 lbs 04/24/2017 Blood Pressure 1: 152/92 Code: 8480-6 BMI: 31.1 Code: 56727-5 Heart Rate 1: 74 bpm Height: 6'2" Respiratory Rate: 18 bpm SpO2: 98% Tempera ture: 35.9 (C) / 96.6 (F) Weight: 242 lbs 01/04/2017 Blood Pressure 1: 122/70 Code: 8480-6 BMI: 30.4 Code: 88647-2 Heart Rate 1: 88 bpm Height: 6'2" Respiratory Rate: 20 bpm SpO2: 96% Tempera ture: 36.6 (C) / 97.8 (F) Weight: 237 lbs 09/12/2016 Blood Pressure 1: 136/78 Code: 8480-6 Heart Rate 1: 82 bpm Respiratory Rate: 22 bpm SpO2: 94% Temperature: 36.4 (C) / 97.6 (F) We ight: 234 lbs 09/07/2016 Blood Pressure 1: 122/70 Code: 8480-6 BMI: 30.0 Code: 38512-4 Heart Rate 1: 88 bpm Height: 6'2" Respiratory Rate: 20 bpm SpO2: 94% Tempera ture: 36.6 (C) / 97.9 (F) Weight: 234 lbs 08/31/2015 Blood Pressure 1: 142/94 Code: 8480-6 BMI: 28.9 Code: 09157-3 Heart Rate 1: 92 bpm Height: 6'2" Respiratory Rate: 20 bpm Temperature: 36 .9 (C) / 98.5 (F) Weight: 225 lbs 04/14/2015 Blood Pressure 1: 126/80 Code: 8480-6 BMI: 28.0 Code: 61659-1 Heart Rate 1: 76 bpm Height: 6'2" Respiratory Rate: 20 bpm Temperature: 36 .6 (C) / 97.8 (F) Weight: 218 lbs 10/07/2014 Blood Pressure 1: 128/76 Code: 8480-6 BMI: 28.6 Code: 32106-5 Heart Rate 1: 84 bpm Height: 6'2" Respiratory Rate: 22 bpm Temperature: 36 .6 (C) / 97.9 (F) Weight: 223 lbs 05/01/2014 Blood Pressure 1: 126/68 Code: 8480-6 BMI: 28.2 Code: 63447-3 Heart Rate 1: 84 bpm Height: 6'2" Respiratory Rate: 20 bpm Temperature: 36 .8 (C) / 98.3 (F) Weight: 220 lbs 12/17/2013 Blood Pressure 1: 136/82 Code: 8480-6 BMI: 29.6 Code: 71864-6 Heart Rate 1: 76 bpm Height: 6'1" Respiratory Rate: 20 bpm Temperature: 36 .8 (C) / 98.2 (F) Weight: 224 lbs 12/11/2012 Blood Pressure 1: 122/86 Code: 8480-6 BMI: 30.5 Code: 55622-8 Heart Rate 1: 76 bpm Height: 6'1" Respiratory Rate: 20 bpm SpO2: 93% Tempera ture: 36.8 (C) / 98.2 (F) Weight: 231 lbs 12/04/2012 Blood Pressure 1: 124/86 Code: 8480-6 BMI: 30.5 Code: 41517-8 Heart Rate 1: 68 bpm Height: 6'1" Respiratory Rate: 20 bpm SpO2: 95% Tempera ture: 36.6 (C) / 97.8 (F) Weight: 231 lbs 08/14/2012 Blood Pressure 1: 126/70 Code: 8480-6 BMI: 29.4 Code: 86601-3 Heart Rate 1: 80 bpm Height: 6'1" Respiratory Rate: 20 bpm Temperature: 36 .8 (C) / 98.3 (F) Weight: 223 lbs 07/17/2012 Blood Pressure 1: 124/82 Code: 8480-6 BMI: 29.7 Code: 23420-1 Heart Rate 1: 80 bpm Height: 6'1" Respiratory Rate: 20 bpm Temperature: 36 .8 (C) / 98.2 (F) Weight: 225 lbs 03/20/2012 Blood Pressure 1: 124/78 Code: 8480-6 BMI: 29.3 Code: 01021-1 Heart Rate 1: 72 bpm Height: 6'1" Respiratory Rate: 20 bpm Temperature: 36 .6 (C) / 97.8 (F) Weight: 222 lbs 12/08/2011 Blood Pressure 1: 112/64 Code: 8480-6 BMI: 28.2 Code: 77632-1 Heart Rate 1: 78 bpm Height: 6'1" Temperature: 36.3 (C) / 97.4 (F) Weight: 214 lbs 08/11/2011 Blood Pressure 1: 128/70 Code: 8480-6 BMI: 27.6 Code: 96301-0 Heart Rate 1: 76 bpm Height: 6'1" [...] it Encounters Encounter Performer Location Codes Date ([id number]) OFFICE/OUTPATIENT VISIT EST Diagnosis: COPD (chronic obstructive pulmonary disease)[ICD10: J44.9] Diagnosis: Mixed hyperlipidemia[ICD10: E78.2] Diagnosis: Coronary artery disease[ICD10: I25.10] Martita GARCIA [facility] CPT-4: 17896 10/07/2019 ([id number]) OFFICE/OUTPATIENT VISIT EST Diagnosis: Cephalgia[ICD10: R51] Diagnosis: Family history of brain aneurysm[ICD10: Z82.49] Diagnosis: Other intervertebral disc degeneration, 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] Martita Black [employer] CPT-4: 46370 07/01/2019 ([id number]) OFFICE/OUTPATIENT VISIT EST Diagnosis: 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] Diagnosis: Bilateral primary osteoarthritis of knee[ICD10: M17.0] Diagnosis: Nicotine dependence, unspecified, uncomplicated[ICD10: F17.200] Diagnosis: Mixed hyperlipidemia[ICD10: E78.2] Martita José Migueljessieodilon KIYA RENTERIA [facility] CPT-4: 34149 03/27/2019 ([id number]) OFFICE/OUTPATIENT VISIT EST Diagnosis: Mixed hyperlipidemia[ICD10: E78.2] Diagnosis: 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] Diagnosis: Other intervertebral disc degeneration, 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] Martita José Miguelfelix [employer] CPT-4: 15245 12/25/2018 ([id number]) OFFICE/OUTPATIENT VISIT EST Diagnosis: Mixed hyperlipidemia[ICD10: E78.2] Diagnosis: Other fatigue[ICD10: R53.83] Diagnosis: Encounter for screening for malignant neoplasm of prostate[ICD10: Z12.5] Diagnosis: Primary osteoarthritis, 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] Diagnosis: Pain in thoracic spine[ICD10: M54.6] Martita José Miguelfelix SLAUGHTERQUE AALIYAH [facility] CPT-4: 00002 06/19/2018 ([id number]) OFFICE/OUTPATIENT VISIT EST Diagnosis: Encounter for therapeutic drug level monitoring[ICD10: Z51.81] Diagnosis: Pain in 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: M25.531] Diagnosis: Pain in right knee[ICD10: M25.561] Diagnosis: Pain in left knee[ICD10: M25.562] Marian SLAUGHTERQUEDAVID Lam [facility] CPT-4: 79841 03/02/2018 ([id number]) OFFICE/OUTPATIENT VISIT EST Diagnosis: Mixed hyperlipidemia[ICD10: E78.2] Martita RENTERIA [facility] CPT-4: 75108 08/01/2017 ([id number]) OFFICE/OUTPATIENT VISIT EST Diagnosis: Other spondylosis with radiculopathy, cervical region[ICD10: M47.22] Diagnosis: Pain in 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: M25.531] Diagnosis: Mixed hyperlipidemia[ICD10: E78.2] Diagnosis: 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] Martita SIMONS DO [employer] CPT-4: 9921 3 07/18/2017 ([id number]) OFFICE/OUTPATIENT VISIT EST Diagnosis: Other intervertebral disc degeneration, 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] Diagnosis: Cervicalgia[ICD10: M54.2] Martita YOUNG DO [employer] CPT-4: 15788 04/24/2017 ([id number]) OFFICE/OUTPATIENT VISIT EST Diagnosis: Cervicalgia[ICD10: M54.2] Diagnosis: Other intervertebral disc degeneration, 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] Diagnosis: Mixed hyperlipidemia[ICD10: E78.2] Martita SIMONS [employer] CPT-4: 00107 01/04/2017 ([id number]) OFFICE/OUTPATIENT VISIT EST Diagnosis: Mixed hyperlipidemia[ICD10: E78.2] Diagnosis: Encounter for general adult medical examination with abnormal findings[ICD10: Z00.01] Martita SIMONS DO [employer] CPT-4: 71879 09/09/2016 ([id number]) PREV VISIT EST AGE 40-64 Diagnosis: Mixed hyperlipidemia[ICD10: E78.2] Diagnosis: Nicotine dependence, unspecified, uncomplicated[ICD10: F17.200] Diagnosis: Chronic obstructive pulmonary disease with acute lower respiratory infection[ICD10: J44.0] Diagnosis: Bilateral primary osteoarthritis of knee[ICD10: M17.0] Diagnosis: Pain in thoracic spine[ICD10: M54.6] Diagnosis: Pain in 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: M25.531] Diagnosis: Encounter for general adult medical examination with abnormal findings[ICD10: Z00.01] Martita SIMONS [employer] CPT-4: 53017 09/07/2016 ([id number]) OFFICE/OUTPATIENT VISIT EST Diagnosis: Mixed hyperlipidemia[ICD10: E78.2] Martita SIMONS [employer] CPT-4: 22259 09/15/2015 ([id number]) OFFICE/OUTPATIENT VISIT EST Diagnosis: Acute bronchitis, unspecified[ICD10: J20.9] Diagnosis: Chronic obstructive pulmonary disease with acute lower respiratory infection[ICD10: J44.0] Diagnosis: Lumbago with sciatica, right side[ICD10: M54.41] Martita SIMONS [employer] CPT-4: 71070 08/31/2015 ([id number]) OFFICE/OUTPATIENT VISIT EST Diagnosis: HYPERLIPIDEMIA NEC/NOS[ICD9: 272.4] Diagnosis: TOBACCO USE DISORDER[ICD9: 305.1] Diagnosis: Osteoarthritis, knee[ICD9: 715.96] Diagnosis: Chronic back pain[ICD9: 724.5] Martita SIMONS [employer] CPT-4: 65975 04/14/2015 ([id number]) OFFICE/OUTPATIENT VISIT EST Diagnosis: HYPERLIPIDEMIA NEC/NOS[ICD9: 272.4] Diagnosis: COPD[ICD9: 496] Diagnosis: ROUTINE MEDICAL EXAM[ICD9: V70.0] Martita SIMONS [employer] CPT-4: 60796 11/10/2014 ([id number]) OFFICE/OUTPATIENT VISIT EST Diagnosis: Wrist pain[ICD9: 719.43] Diagnosis: Knee osteoarthritis[ICD9: 715.96] Diagnosis: Chronic back pain[ICD9: 724.5] Martita SIMONS [employer] CPT-4: 64233 10/07/2014 ([id number]) OFFICE/OUTPATIENT VISIT EST Diagnosis: HYPERLIPIDEMIA NEC/NOS[ICD9: 272.4] Diagnosis: Chronic back pain[ICD9: 724.5] Diagnosis: OSTEOARTH NOS-L/LEG[ICD9: 715.96] Martita SIMONS [employer] CPT-4: 22643 05/01/2014 ([id number]) OFFICE/OUTPATIENT VISIT EST Diagnosis: HYPERLIPIDEMIA NEC/NOS[ICD9: 272.4] Martita SLAUGHTERSHRUTHI MOROCHO Sofia SIMONS [employer] CPT-4: 46455 04/29/2014 ([id number]) OFFICE/OUTPATIENT VISIT EST Diagnosis: ROUTINE MEDICAL EXAM[ICD9: V70.0] Diagnosis: HYPERLIPIDEMIA NEC/NOS[ICD9: 272.4] Martita MONTERO BAILEE SIMONS DO [facility] CPT-4: 11383 12/18/2013 OFFICE/OUTPATIENT VISIT EST Diagnosis: HYPERLIPIDEMIA NEC/NOS[ICD9: 272.4] Diagnosis: COPD[ICD9: 496] Diagnosis: Knee pain[ICD9: 719.46] Diagnosis: Wrist pain[ICD9: 719.43] Martita José Miguelfelix [employer] [facility] L[facility] CPT-4: 19039 12/17/2013 OFFICE/OUTPATIENT VISIT EST Diagnosis: COPD W/ ACUTE EXACERB[ICD9: 491.21] Diagnosis: COUGH[ICD9: 786.2] Martita FERRARALINE Sofia SIMONS DO [facility] CPT-4: 96026 12/11/2012 ([id number]) OFFICE/OUTPATIENT VISIT EST Diagnosis: BRONCHITIS, ACUTE[ICD9: 466.0] Diagnosis: COPD exacerbation[ICD9: 491.21] Martita FERRARALINE Sofia SIMONS [employer] [facility] CPT-4: 43610 12/04/2012 ([id number]) OFFICE/OUTPATIENT VISIT EST Diagnosis: DERMATITIS NOS[ICD9: 692.9] Diagnosis: TOBACCO USE DISORDER[ICD9: 305.1] Martitajacky Lam Sofia SIMONS [employer] [facility] CPT-4: 27728 08/14/2012 ([id number]) OFFICE/OUTPATIENT VISIT EST Diagnosis: TOBACCO USE DISORDER[ICD9: 305.1] Diagnosis: PAIN, LOWER BACK[ICD9: 724.2] Diagnosis: PAIN IN THORACIC SPINE[ICD9: 724.1] Diagnosis: DERMATITIS NOS[ICD9: 692.9] Diagnosis: HYPERLIPIDEMIA NEC/NOS[ICD9: 272.4] Martita José Miguelfelix MONTERO BAILEE SIMONS [employer] [facility] CPT-4: 42565 07/17/2012 ([id number]) OFFICE/OUTPATIENT VISIT EST Diagnosis: HYPERLIPIDEMIA NEC/NOS[ICD9: 272.4] Diagnosis: OSTEOARTH NOS-L/LEG[ICD9: 715.96] Diagnosis: JOINT PAIN-L/LEG[ICD9: 719.46] Diagnosis: AC EMBL SUPRFCL UP EXT[ICD9: 453.81] Martita FISCHER Sofia [facility] CPT-4: 24793 03/20/2012 ([id number]) OFFICE/OUTPATIENT VISIT EST Diagnosis: PAIN, LOWER BACK[ICD9: 724.2] Diagnosis: Superficial venous thrombosis of arm[ICD9: 453.81] Diagnosis: Trigger finger, left[ICD9: 727.03] Martita RENTERIA Sofia SIMONS [employer] CPT-4: 96756 12/08/2011 OFFICE/OUTPATIENT VISIT EST Diagnosis: Knee pain[ICD9: 719.46] Diagnosis: Knee osteoarthritis[ICD9: 715.96] Diagnosis: Thoracic back pain[ICD9: 724.1] Diagnosis: HYPERLIPIDEMIA NEC/NOS[ICD9: 272.4] Martita MOROCHO Sofia SIMONS [employer] CPT-4: 36236 08/11/2011 ([id number]) OFFICE/OUTPATIENT VISIT, NEW Martita HULL [employer] [facility] CPT-4: 61566 05/26/2010 Plan of Care Planned Activity Notes [...] R51 07/01/2019 Appointment: Martita Simons [facility]el[facility] [phone] [id number] MEDICATION REVIEW 07/01/2019 Visit Diagnosis Plan: Atherosclerotic he art disease of jena coronary artery without angina pectoris Discussion: Discussed [...] : E78.2 03/27/2019 Appointment: Martita Simons WPtel: [address] [place], [place] [phone] MEDICATION REVIEW 03/27/2019 Visit Diagnosis Plan: Other intervertebral disc degene ration, lumbar region Discussion: Stable on hydrocodone UDS done Follow Up: 3 months ICD-9 : 722.52 ICD-10 : M51.36 12/25/2018 Visit Diagnosis Plan: Atherosclerotic he art disease of jena coronary artery without angina pectoris Discussion: Smoking Cessation Continue c urrent meds and fwup with cardiology ICD-9 : 414.00 ICD-10 : I25.10 12/25/2018 Appointment: Martita Simons WPtel: [address] [place], [place] [phone] MEDICATION REVIEW 12/25/2018 Appointment: Martita Simonstel: [address] [place] [address] OFFICE SURGERY 08/22/2018 Visit Diagnosis Plan: Pain [...] M19.031 06/19/2018 Appointment: Martita Simons WPtel: [address] [place] [address] MEDICATION REVIEW 06/19/2018 Appointment: Martita Simons WPtel: [address] [place] [address] [place] CANCELED 06/05/2018 Appointment: Martita Simons WPtel: [address] [place], [place] [phone] [place] CANCELED 05/08/2018 Visit Diagnosis Plan: Pain [...] ICD-10 : M25.562 03/02/2018 Appointment: Marian Juares [address] [place] [address] MEDICATION REVIEW 03/02/2018 Patient Education: Patient Medication Summary Completed 03/02/2018 Appointment: Martita Simons WPtel: [address] [place] [address] UA 02/01/2018 Patient Education: Patient Medication Summary Completed 02/01/2018 Visit Diagnosis Plan: Other synovitis and tenosynoviti s, right hand Discussion: Right wrist cleansed with alcohol and betadine and injected laterally with 1cc 1% lidocaine with 20mg kenalog and 2mg dexamethasone, tolerated well with no complications, neosporin and bandage applied ICD-9 : 727.05 ICD-10 : M65.841 08/31/2017 Appointment: Martita Simons WPtel: [address] [place], [place] [phone] ACUTE ILLNESS 08/31/2017 Patient Education: Patient Medication Summary Completed 08/31/2017 Appointment: Martita Simons WPtel: [phone] [id number] [place] LAB 08/01/2017 Patient Education: Patient Medication [...] E78.2 07/18/2017 Appointment: Martita Simons WPtel: [phone] [id number] MEDICATION REVIEW 07/18/2017 Patient Education: Patient Medication Summary Completed 07/18/2017 Visit Diagnosis Plan: Other intervertebral disc degene ration, lumbar region Discussion: Add PT For lumbar spine ICD-9 : 722.52 ICD-10 : M51.36 04/24/2017 Visit Diagnosis Plan: Cervicalgia Discussion: Continue PT then fwup after done with PT ICD-9 : 723.1 ICD-10 : M54.2 04/24/2017 Appointment: Martita Simons WPtel: [phone] [id number] MEDICATION REVIEW 04/24/2017 Patient Education: Patient Medication Summary Completed 04/24/2017 Patient Education: Patient Medication Summary Completed 03/22/2017 Care Plan: MRI NECK SPINE W/O DYE LOINC : 30614-1 Pending 03/22/2017 Visit Diagnosis Plan: Mixed hyperlipidemia [...] : M54.2 01/04/2017 Appointment: Martita Simons WPtel: [address] [place], [place] [phone] [place] 01/03 lm`sl 01/03-Confirmed MEDICATION REVIEW 01/04/2017 Patient Education: Patient Medication Summary Completed 01/04/2017 Visit Diagnosis Plan: Mixed hyperlipidemia Discussion: Lab discussed Restart lipitor/lifestyle change ICD-9 : 272.4 ICD-10 : E78.2 09/12/2016 Visit Diagnosis Plan: Other enthesopathies, not elsewh ere classified Discussion: Right wrist injection as above ICD-9 : 727.05 ICD-10 : M77.8 09/12/2016 Appointment: Martita Simons WPtel: [address] [place], [place] [phone] [place] 09/12 confirmed `sl INJECTION 09/12/2016 Patient Education: Patient Medication Summary Completed 09/12/2016 Appointment: Martita Simons WPtel: [address] [place], [place] [phone] [place] LAB 09/09/2016 Patient Education: Patient Medication Summary Completed 09/09/2016 Visit Diagnosis Plan: Pain in right wrist Discussion: Will return for wrist injection ICD-9 : 719.43 ICD-10 : M25.531 09/07/2016 Visit Diagnosis Plan: Chronic obstructiv e pulmonary disease with acute lower respiratory infection Discussion: Smoking Cessation Symbicort Check CXR ICD-9 : 496 ICD-10 : J44.0 09/07/2016 Visit Diagnosis Plan: Encounter for [facility] adult medical examination with abnormal findings Discussion: Update fasting lab Follow Up: 4 months ICD-9 : V70.0 ICD-10 : Z00.01 09/07/2016 Visit Diagnosis Plan: Mixed hyperlipidemia Discussion: Check CMP, Lipids ICD-9 : 272.4 ICD-10 : E78.2 09/07/2016 Visit Diagnosis Plan: Nicotine dependence, unspecified , uncomplicated Discussion: Tobacco Abuse ICD-9 : 305.1 ICD-10 : F17.200 09/07/2016 Appointment: Martita Simonstel: [address] [place], [place] [address] 09/06 confirmed~ Annual Well Visit 09/07/2016 Patient Education: Patient Medication Summary Completed 09/07/2016 Care Plan: CHEST X-RAY 2VW FRONTAL&LATL LOINC : 44474-6 Pending 09/07/2016 Visit Plan: [facility] out [facility] Insurance Paperwork 08/05/2016 Patient Education: Patient Medication Summary Completed 08/05/2016 Appointment: Martita Simons WPtel: [address] [place] [address] UA 04/25/2016 Patient Education: Patient Medication Summary Completed 04/25/2016 Appointment: Martita Simons WPtel: [address] [place] [address] LAB 09/15/2015 Patient Education: Patient Medication Summary Completed 09/15/2015 Visit Plan: SVN with Albuterol 0.083% Q4 hrs and Q2hrs prn. Supportive care. Rest, Fluids, Tylenol/Motrin prn fever or bodyaches. Notify if worsening symptoms. Daily back stretches, moist heat, Biofreeze prn Flexeril/Prednisone Notify if low back pain persists--will need x-rays Patient seeing Chiropracter [employer] 08/31/2015 Appointment: Martita Simons WPtel: [address] [place], [place] [phone] 08/28/15 vm cn 08/28/15 appt confirmed cn FOLLOW UP 08/31/2015 Patient Education: Patient Medication Summary Completed 08/31/2015 Appointment: Martita Simons WPtel: [address] [place], [place] [id number] [place] UA 07/29/2015 Visit Plan: CMP, Lipids today Patient st opped chol meds 1week ago Continue hydrocodone 04/14/2015 Appointment: Martita Simons WPtel: [address] [place] [id number] [place] FOLLOW UP 04/14/2015 Patient Education: Patient Medication Summary Completed 04/14/2015 Appointment: Martita Simons WPtel: [address] [place] [id number] LAB 11/10/2014 Patient Education: Patient Medication Summary Completed 11/10/2014 Visit Plan: Fasting lab at end september for Lipids/LFTs Continue hydrocodone at current dose Needs to be on low dose asprin 81mg daily With upcoming trip need to stop every 2hours and get out and stretch 10/07/2014 Appointment: Martita Simons WPtel: [address] [place], [place] [phone] FOLLOW UP 10/07/2014 Patient Education: Patient Medication Summary Completed 10/07/2014 Visit Plan: Lab discussed Will keep meds the same Keep hydrocodone at current dose--discussed schedule change on May 05 05/01/2014 Appointment: Martita Simons WPtel: [address] [place] [id number] 04/29 confirmed when in for labs; asked if he still wanted a reminder call on Monday and he said no he would be here. FOLLOW UP 05/01/2014 Patient Education: Patient Medication Summary Completed 05/01/2014 Appointment: Martita Simons WPtel: [address] [place] [id number] [place] LAB 04/29/2014 Patient Education: Patient Medication Summary Completed 04/29/2014 Appointment: Martita Simons WPtel: [address] [place] [id number] LAB 12/18/2013 Patient Education: Patient Medication Summary Completed 12/18/2013 Appointment: Martita Simons WPtel: [address] [place] [id number] 12/16 FOLLOW UP 12/17/2013 Patient Education: Patient Medication Summary Completed 12/17/2013 Visit Plan: Check CXR Start SVNs with al buterol 0.083% QID 12/11/2012 Appointment: Martita Simons WPtel: [address] [place], [place] [phone] FOLLOW UP 12/11/2012 Patient Education: Patient Medication Summary Completed 12/11/2012 Visit Plan: Zithromax for 1wk Prednisone for 1wk Symbicort 160/4.5 2p BID 12/04/2012 Appointment: Martita Simons WPtel: [address] [place], [place] [phone] ACUTE ILLNESS 12/04/2012 Patient Education: Patient Medication Summary Completed 12/04/2012 Visit Plan: Continue nystatin/TAC cream and add Lamisil for next month No lipitor for next month If rash persists then will need biopsy Trial of chantix--warned of suicidal ideation/depression Call in 1mo on finger lesion and chantix 08/14/2012 Appointment: Martita Simons WPtel: [address] [place] [id number] 08/13 no answer...08/13 pt called back and confirmed OFFICE SURGERY 08/14/2012 Patient Education: Patient Medication Summary Completed 08/14/2012 Appointment: Martita Simons WPtel: [address] [place] [id number] FOLLOW UP 07/17/2012 Patient Education: Patient Medication Summary Completed 07/17/2012 Appointment: Martita Simonstel: [address] [place], [place] [phone] Appointment was confirmed by CN on 06/29 12/5 pt called, in family, was in [place] just got yash k /4 - [facility] ACUTE ILLNESS 07/02/2012 Visit Plan: Obtain US results of KELVIN PINEDA coumadin as has been 3mos and start Aspirin 325mg daily Check CMP, Lipids, CBC, ESR, CRP today 03/20/2012 Appointment: Martita Simonstel: [address] [place], [place] [phone] FOLLOW UP 03/20/2012 Patient Education: Patient Medication Summary Completed 03/20/2012 Appointment: Martita Simons WPtel: [address] [place] [address] [place] Patient called 2 hours past appt. Said saw a specialist today and specialist is not concerned about blod clot so doesnt want to reschedule-CN FOLLOW UP 12/14/2011 Appointment: Martita Simons WPtel: [address] [place], [place] [phone] FOLLOW UP 12/13/2011 Visit Plan: Continue coumadin--IM is fol lowing level--discussed will likely need 6-12wks Observe contusion to right lower back Fwup with ortho as scheduled 12/08/2011 Appointment: Martita Simons WPtel: [address] [place] [address] ACUTE ILLNESS 12/08/2011 Patient Education: Patient Medication Summary Completed 12/08/2011 Visit Plan: Check fasting lab when goes for pre-op lab including CMP, CBC, Lipids, TSH, Free T4, PSA, uric acid Needs colonoscopy Hydrocodone refilled #80 to [facility] 08/11/2011 Appointment: Martita Simons WPtel: [address] [place], [place] [phone] ESTABLISHED PATIENT 08/11/2011 Patient Education: Patient Medication Summary Completed 08/11/2011 Visit Plan: Obtain most recent lab resul ts Cont current meds Explained that cannot refill pain meds without current rx Discussed Synvisc injections and see ortho as oxycontin for knee arthritis is strong pain med 05/26/2010 Appointment: Martita Simons WPtel: [address] [place], [place] [phone] NEW PATIENT 05/26/2010 Patient Education: Patient Medication Summary Completed 05/26/2010 Instructions Comment . Filled out [employer] Paperwork . SVN with Albuterol 0.083% Q4hrs [...]
--- OUTSIDE RECORDS SUMMARY | 2020-01-12 17:43 | XMS REPORT | CCD ---
Author Author Syd Simons D.O. Organization MARTITA SIMONS DO [facility] Address [address] [place] [address] Phone Care Team Providers Care Subacute Nurse Name Role Phone Martita Simons D.O., PP Unavailable CCM Unavailable Summary Purpose Interface Exchange Insurance Providers Payer name Policy type / Coverage type Covered republican ID Effective Begin Date Effective End Date [facility] Commercial Insurance [id number] Unknown Family history Brother Diagnosis Age At Onset No Family Disease Entered N/A Father Diagnosis Age At Onset No Family Disease Entered N/A Mother Diagnosis Age At Onset No Family Disease Entered N/A Social History Social History Element Codes Description Effective Dates Tobacco history SNOMED CT: 70211911 Current every day smoker 06/2012 Number of [...] Problems Condition Codes Effective Dates Condition Status Cephalgia ICD-9: 784.0 ICD-10: R51 07/01/2019 Active Family history of brain aneurysm ICD-9: V17.1 ICD-10: Z82.49 07/01/2019 Active Other intervertebral disc degeneration, lumbar region ICD-9: 722.52 ICD-10: M51.36 01/04/2017 Active Atherosclerotic heart disease of [place] coronary arter y without angina pectoris ICD-9: 414.00 ICD-10: I25.10 12/25/2018 Active Bilateral primary osteoarthritis of knee ICD-9: 715.96 ICD-10: M17.0 05/01/2014 Active Mixed hyperlipidemia ICD-9: 272.4 ICD-10: E78.2 12/17/2013 Active Nicotine dependence, unspecified, uncomplicated ICD-9: 305.1 [...] hydrocodone 10 mg-acetaminophen 325 mg tablet RxNorm: 982126 1 Tablet(s) PO Q6H as needed for pain 09/26/2019 No Stop Date Active (Response to an electronic controlled substance refill request [id number]|1|0|1) hydrocodone 10 mg-acetaminophen 325 mg tablet RxNorm: 513751 1 Tablet(s) PO Q6H as needed for pain 08/26/2019 09/25/2019 Inactive (Response to an electronic controlled substance refill request - RxReferenceNumber: [id number]|1|0|1) hydrocodone 10 mg-acetaminophen 325 mg tablet RxNorm: 647480 1 Tablet(s) PO Q6H as needed for pain 07/25/2019 08/25/2019 Inactive (Response to an electronic controlled substance refill request - RxReferenceNumber: [id number]|1|0|1) hydrocodone 10 mg-acetaminophen 325 mg tablet RxNorm: 322853 1 Tablet(s) PO Q6H as needed for pain 06/26/2019 07/24/2019 Inactive (Response to an electronic controlled substance refill request - RxReferenceNumber: [id number]|1|0|1) hydrocodone 10 mg-acetaminophen 325 mg tablet RxNorm: 601231 1 Tablet(s) PO Q6H as needed for pain 05/28/2019 06/25/2019 Inactive (Response to an electronic controlled substance refill request - RxReferenceNumber: [id number]|1|0|1) hydrocodone 10 mg-acetaminophen 325 mg tablet RxNorm: 817980 1 Tablet(s) PO Q6H as needed for pain 02/25/2019 05/27/2019 Inactive (Response to an electronic controlled substance refill request - RxReferenceNumber: [id number]|1|0|1) hydrocodone 10 mg-acetaminophen 325 mg tablet RxNorm: 106907 1 Tablet(s) PO Q6H as needed for pain 11/26/2018 02/24/2019 Inactive (Response to an electronic controlled substance refill request - RxReferenceNumber: [id number]|1|0|1) hydrocodone 10 mg-acetaminophen 325 mg tablet RxNorm: 882975 1 Tablet(s) PO Q6H as needed for pain 10/30/2018 11/25/2018 Inactive (Response to an electronic controlled substance refill request - RxReferenceNumber: [id number]|1|0|1) hydrocodone 10 mg-acetaminophen 325 mg tablet RxNorm: 540704 1 Tablet(s) PO Q6H as needed for pain 09/26/2018 10/29/2018 Inactive (Response to an electronic controlled substance refill request - RxReferenceNumber: [id number]|1|0|1) hydrocodone 10 mg-acetaminophen 325 mg tablet RxNorm: 623216 1 Tablet(s) PO Q6H as needed for pain 08/30/2018 09/25/2018 Inactive (Response to an electronic controlled substance refill request - RxReferenceNumber: [id number]|1|0|1) hydrocodone 10 mg-acetaminophen 325 mg tablet RxNorm: 310440 1 Tablet(s) PO Q6H as needed for pain 08/01/2018 08/29/2018 Inactive (Response to an electronic controlled substance refill request - RxReferenceNumber: [id number]|1|0|1) hydrocodone 10 mg-acetaminophen 325 mg tablet RxNorm: 671641 1 Tablet(s) PO Q6H as needed for pain 07/04/2018 07/31/2018 Inactive (Response to an electronic controlled substance refill request - RxReferenceNumber: [id number]|1|0|1) hydrocodone 10 mg-acetaminophen 325 mg tablet RxNorm: 810358 1 Tablet(s) PO Q6H as needed for pain 05/31/2018 07/03/2018 Inactive (Response to an electronic controlled substance refill request - RxReferenceNumber: [id number]|1|0|1) hydrocodone 10 mg-acetaminophen 325 mg tablet RxNorm: 168205 1 Tablet(s) PO Q6H as needed for pain 05/01/2018 05/30/2018 Inactive (Response to an electronic controlled substance refill request - RxReferenceNumber: [id number]|1|0|1) hydrocodone 10 mg-acetaminophen 325 mg tablet RxNorm: 259305 1 Tablet(s) PO Q6H as needed for pain 04/03/2018 04/30/2018 Inactive (Response to an electronic controlled substance refill request - RxReferenceNumber: [id number]|1|0|1) hydrocodone 10 mg-acetaminophen 325 mg tablet RxNorm: 964065 1 Tablet(s) PO Q6H as needed for pain 02/26/2018 04/02/2018 Inactive (Response to an electronic controlled substance refill request - RxReferenceNumber: [id number]|1|0|1) clotrimazole-betamethasone 1 %-0.05 % topical cream RxNorm: 826165 TOP As Directed CALL IF NO IMPROVEMENT IN 2 WEEKS 01/30/2018 01/29/2018 Inact kole [SAVINGS FOR UNINSURED PATIENTS -- BIN:[id number], PCN: [id number], Group: [id number], ID# [id number], Process claim through [employer], for questions: . THIS IS NOT INSURANCE.] hydrocodone 10 mg-acetaminophen 325 mg tablet RxNorm: 417453 1 Tablet(s) PO Q6H as needed for pain 01/29/2018 02/25/2018 Inactive (Response to an electronic controlled substance refill request - RxReferenceNumber: [id number]|1|0|1) hydrocodone 10 mg-acetaminophen 325 mg tablet RxNorm: 614353 1 Tablet(s) PO Q6H as needed for pain 12/28/2017 01/28/2018 Inactive (Response to an electronic controlled substance refill request - RxReferenceNumber: [id number]|1|0|1) hydrocodone 10 mg-acetaminophen 325 mg tablet RxNorm: 453922 1 Tablet(s) PO Q6H as needed for pain 11/29/2017 12/27/2017 Inactive (Response to an electronic controlled substance refill request - RxReferenceNumber: [id number]|1|0|1) hydrocodone 10 mg-acetaminophen 325 mg tablet RxNorm: 658237 1 Tablet(s) PO Q6H as needed for pain 11/02/2017 11/28/2017 Inactive (Response to an electronic controlled substance refill request - RxReferenceNumber: [id number]|1|0|1) hydrocodone 10 mg-acetaminophen 325 mg tablet RxNorm: 264542 1 Tablet(s) PO Q6H as needed for pain 10/02/2017 11/01/2017 Inactive (Response to an electronic controlled substance refill request - RxReferenceNumber: [id number]|1|0|1) hydrocodone 10 mg-acetaminophen 325 mg tablet RxNorm: 265947 1 Tablet(s) PO Q6H as needed for pain 08/30/2017 10/01/2017 Inactive (Response to an electronic controlled substance refill request - RxReferenceNumber: [id number]|1|0|1) hydrocodone 10 mg-acetaminophen 325 mg tablet RxNorm: 102818 1 Tablet(s) PO Q6H as needed for pain 08/01/2017 08/29/2017 Inactive (Response to an electronic controlled substance refill request - RxReferenceNumber: [id number]|1|0|1) hydrocodone 10 mg-acetaminophen 325 mg tablet RxNorm: 592089 1 Tablet(s) PO Q6H as needed for pain 06/26/2017 07/31/2017 Inactive (Response to an electronic controlled substance refill request - RxReferenceNumber: [id number]|1|0|1) hydrocodone 10 mg-acetaminophen 325 mg tablet RxNorm: 951309 1 Tablet(s) PO Q6H as needed for pain 06/26/2017 06/30/2019 Inactive (Response to an electronic controlled substance refill request - RxReferenceNumber: [id number]|1|0|1) hydrocodone 10 mg-acetaminophen 325 mg tablet RxNorm: 639610 1 Tablet(s) PO Q6H as needed for pain 03/27/2017 06/25/2017 Inactive (Response to an electronic controlled substance refill request - RxReferenceNumber: [id number]|1|0|1) hydrocodone 10 mg-acetaminophen 325 mg tablet RxNorm: 458787 1 Tablet(s) PO Q6H as needed for pain 02/23/2017 03/26/2017 Inactive (Response to an electronic controlled substance refill request - RxReferenceNumber: [id number]|1|0|1) hydrocodone 10 mg-acetaminophen 325 mg tablet RxNorm: 854894 1 Tablet(s) PO Q6H as needed for pain 01/24/2017 02/22/2017 Inactive (Response to an electronic controlled substance refill request - RxReferenceNumber: [id number]|1|0|1) hydrocodone 10 mg-acetaminophen 325 mg tablet RxNorm: 467271 1 Tablet(s) PO Q6H as needed for pain 12/27/2016 06/30/2019 Inactive (Response to an electronic controlled substance refill request - RxReferenceNumber: [id number]|1|0|1) hydrocodone 10 mg-acetaminophen 325 mg tablet RxNorm: 951314 1 Tablet(s) PO Q6H as needed for pain 12/27/2016 01/23/2017 Inactive (Response to an electronic controlled substance refill request - RxReferenceNumber: [id number]|1|0|1) hydrocodone 10 mg-acetaminophen 325 mg tablet RxNorm: 292784 1 Tablet(s) PO Q6H as needed for pain 11/23/2016 12/26/2016 Inactive (Response to an electronic controlled substance refill request - RxReferenceNumber: [id number]|1|0|1) hydrocodone 10 mg-acetaminophen 325 mg tablet RxNorm: 374563 1 Tablet(s) PO Q6H as needed for pain 10/20/2016 11/22/2016 Inactive (Response to an electronic controlled substance refill request - RxReferenceNumber: [id number]|1|0|1) hydrocodone 10 mg-acetaminophen 325 mg tablet RxNorm: 765752 1 Tablet(s) PO Q6H as needed for pain 09/26/2016 10/19/2016 Inactive (Response to an electronic controlled substance refill request - RxReferenceNumber: [id number]|1|0|1) hydrocodone 10 mg-acetaminophen 325 mg tablet RxNorm: 045699 1 Tablet(s) PO Q6H as needed for pain 07/27/2016 09/25/2016 Inactive (Response to an electronic controlled substance refill request - RxReferenceNumber: [id number]|1|0|1) hydrocodone 10 mg-acetaminophen 325 mg tablet RxNorm: 699436 1 Tablet(s) PO Q6H as needed for pain 05/04/2016 07/26/2016 Inactive (Response to an electronic controlled substance refill request - RxReferenceNumber: [id number]|1|0|1) hydrocodone 10 mg-acetaminophen 325 mg tablet RxNorm: 668308 1 Tablet(s) PO Q6H as needed for pain 03/31/2016 05/03/2016 Inactive (Response to an electronic controlled substance refill request - RxReferenceNumber: [id number]|1|0|1) citalopram 10 mg tablet RxNorm: 260358 1 Tablet(s) PO QD 09/28/2015 0 09/27/2015 Inactive citalopram 10 mg tablet RxNorm: 357832 1 Tablet(s) PO QD 09/28/2015 0 09/06/2016 Inactive Wellbutrin SR 150 mg tablet,sustained-release RxNorm: 044446 1 Tablet(s) PO QAM 09/25/2015 09/06/2016 Inactive prednisone 20 mg tablet RxNorm: 122193 1 Tablet(s) PO T ID for 3 days then 1 po BID for 3 days then one daily for 3 days 08/31/2015 09/06/2016 Inactiv e cyclobenzaprine 10 mg tablet RxNorm: 412704 1 Tablet(s) PO TID as needed for muscle spasm 08/31/2015 07/17/2017 Inactive hydrocodone 10 mg-acetaminophen 325 mg tablet RxNorm: 745957 1 Tablet(s) PO Q6H as needed for pain 08/26/2015 03/30/2016 Inactive (Response to an electronic controlled substance refill request - RxReferenceNumber: [id number]|1|0|1) hydrocodone 10 mg-acetaminophen 325 mg tablet RxNorm: 235667 1 Tablet(s) PO Q6H as needed for pain 07/28/2015 08/25/2015 Inactive (Response to an electronic controlled substance refill request - RxReferenceNumber: [id number]|1|0|1) hydrocodone 10 mg-acetaminophen 325 mg tablet RxNorm: 861663 1 Tablet(s) PO Q6H as needed for pain 06/23/2015 07/27/2015 Inactive (Response to an electronic controlled substance refill request - RxReferenceNumber: [id number]|1|0|1) hydrocodone 10 mg-acetaminophen 325 mg tablet RxNorm: 790711 1 Tablet(s) PO Q6H as needed for pain 05/21/2015 06/22/2015 Inactive (Response to an electronic controlled substance refill request - RxReferenceNumber: [id number]|1|0|1) azithromycin 250 mg tablet RxNorm: 507353 2 Tablet(s) P O on day one, then one tablet on days 2 - 5 04/27/2015 08/30/2015 Inactive hydrocodone 10 mg-acetaminophen 325 mg tablet RxNorm: 751872 1 Tablet(s) PO Q6H as needed for pain 03/25/2015 05/20/2015 Inactive (Response to an electronic controlled substance refill request - RxReferenceNumber: [id number]|1|0|1) hydrocodone 10 mg-acetaminophen 325 mg tablet RxNorm: 921780 1 Tablet(s) PO Q6H as needed for pain 02/24/2015 03/24/2015 Inactive (Response to an electronic controlled substance refill request - RxReferenceNumber: [id number]|1|0|1) hydrocodone 10 mg-acetaminophen 325 mg tablet RxNorm: 211239 1 Tablet(s) PO Q6H as needed for pain 01/23/2015 02/23/2015 Inactive (Response to an electronic controlled substance refill request - RxReferenceNumber: [id number]|1|0|1) hydrocodone 10 mg-acetaminophen 325 mg tablet RxNorm: 758045 1 Tablet(s) PO Q6H as needed for pain 12/23/2014 01/22/2015 Inactive (Response to an electronic controlled substance refill request - RxReferenceNumber: [id number]|1|0|1) hydrocodone 10 mg-acetaminophen 325 mg tablet RxNorm: 557343 1 Tablet(s) PO Q6H as needed for pain 11/24/2014 12/22/2014 Inactive (Response to an electronic controlled substance refill request - RxReferenceNumber: [id number]|1|0|1) hydrocodone 10 mg-acetaminophen 325 mg tablet RxNorm: 806327 1 Tablet(s) PO Q6H as needed for pain 10/28/2014 11/23/2014 Inactive (Response to an electronic controlled substance refill request - RxReferenceNumber: [id number]|1|0|1) hydrocodone 10 mg-acetaminophen 325 mg tablet RxNorm: 585956 1 Tablet(s) PO Q6H as needed for pain 09/25/2014 10/27/2014 Inactive (Response to an electronic controlled substance refill request - RxReferenceNumber: [id number]|1|0|1) Lipitor 80 mg tablet RxNorm: 450063 1 Tablet(s) PO QHS 09/24/2014 Inactive hydrocodone 10 mg-acetaminophen 325 mg tablet RxNorm: 573968 1 Tablet(s) PO Q6H as needed for pain 07/30/2014 09/24/2014 Inactive (Response to an electronic controlled substance refill request - RxReferenceNumber: [id number]|1|0|1) hydrocodone 10 mg-acetaminophen 325 mg tablet RxNorm: 966674 1 Tablet(s) PO Q6H as needed for pain 05/27/2014 07/29/2014 Inactive (Response to an electronic controlled substance refill request - RxReferenceNumber: [id number]|1|0|1) clotrimazole-betamethasone 1 %-0.05 % topical cream RxNorm: 575846 TOP As Directed 05/01/2014 08/30/2015 Inactive [SAVINGS FOR UNI NSURED PATIENTS -- BIN:[id number], PCN: ASPROD1, Group: [id number], ID# [id number], Process claim through [employer], for questions: . THIS IS NOT INSURANCE.] Lipitor 80 mg tablet RxNorm: 397591 1 Tablet(s) PO QHS 04/28/2014 Inactive hydrocodone 10 mg-acetaminophen 325 mg tablet RxNorm: 444143 1 Tablet(s) PO Q6H as needed for pain 04/28/2014 05/26/2014 Inactive (Response to an electronic controlled substance refill request - RxReferenceNumber: [id number]|1|0|1) hydrocodone 10 mg-acetaminophen 325 mg tablet RxNorm: 105232 1 Tablet(s) PO Q6H as needed for pain 03/27/2014 04/27/2014 Inactive (Response to an electronic controlled substance refill request - RxReferenceNumber: [id number]|1|0|1) hydrocodone 10 mg-acetaminophen 325 mg tablet RxNorm: 437443 1 Tablet(s) PO Q6H as needed for pain 12/20/2013 12/20/2013 Inactive (Appended: Co ntrolled substance eRx refill - RxReferenceNumber: [id number]|1|0|1) hydrocodone 10 mg-acetaminophen 325 mg tablet RxNorm: 447488 TAKE 1 TABLET BY MOUTH EVERY 6 HOURS NEEDED FOR PAIN 12/20/2013 01/12/2014 Inactive (Response to an electronic controlled substance refill request - RxReferenceNumber: [id number]|1|0|1) hydrocodone 10 mg-acetaminophen 325 mg tablet RxNorm: 582828 1 Tablet(s) PO Q6H as needed for pain 09/03/2013 12/19/2013 Inactive (Appended: Co ntrolled substance eRx refill - RxReferenceNumber: [id number]|1|0|1) hydrocodone 10 mg-acetaminophen 325 mg tablet RxNorm: 092754 Tablet(s) PO TAKE 1 TABLET BY MOUTH EVERY 6 HOURS NEEDED FOR PAIN 08/08/2013 09/03/2013 Inactive (Appended: Controlled substance eRx refill - RxReferenceNumber: [id number]|1|0|1) hydrocodone 10 mg-acetaminophen 325 mg tablet RxNorm: 316703 Tablet(s) PO TAKE 1 TABLET BY MOUTH EVERY 6 HOURS NEEDED FOR PAIN 07/11/2013 08/07/2013 Inactive (Appended: Controlled substance eRx refill - RxReferenceNumber: [id number]|1|0|1) hydrocodone 10 mg-acetaminophen 325 mg tablet RxNorm: 839259 2 Tablet(s) PO TAKE 1 TABLET BY MOUTH EVERY 6 HOURS NEEDED FOR PAIN 06/12/2013 3 Inactive (Appended: Controlled substance eRx ref ill - RxReferenceNumber: [id number]|1|0|1) hydrocodone 10 mg-acetaminophen 325 mg tablet RxNorm: 991317 2 1 Tablet(s) PO Q6H NEEDED FOR PAIN 05/15/2013 06/12/2013 Inactive (Appended: Co ntrolled substance eRx refill - RxReferenceNumber: [id number]|1|0|1) hydrocodone 10 mg-acetaminophen 325 mg tablet RxNorm: 629158 2 Tablet(s) PO TAKE 1 TO 2 TABLETS BY MOUTH EVERY 6 HOURS NEEDED FOR PAIN 04/18/2013 No Stop Date Active (Appended: Controlled substa nce eRx refill - RxReferenceNumber: [id number]|1|0|1) hydrocodone 10 mg-acetaminophen 325 mg tablet RxNorm: 869764 2 Tablet(s) PO TAKE 1 TO 2 TABLETS BY MOUTH EVERY 6 HOURS NEEDED FOR PAIN 03/19/2013 No Stop Date Active (Appended: Controlled substa nce eRx refill - RxReferenceNumber: [id number]|1|0|1) hydrocodone 10 mg-acetaminophen 325 mg tablet RxNorm: 162842 2 Tablet(s) PO TAKE 1 TO 2 TABLETS BY MOUTH EVERY 6 HOURS NEEDED FOR PAIN 02/06/2013 Inactive (Appended: Controlled substance eRx refi ll - RxReferenceNumber: [id number]|1|0|1) hydrocodone 10 mg-acetaminophen 325 mg tablet RxNorm: 235883 2 Tablet(s) PO TAKE 1 TO 2 TABLETS BY MOUTH EVERY 6 HOURS NEEDED FOR PAIN 01/08/201304/2013 Inactive (Appended: Controlled substance eRx ref ill - RxReferenceNumber: [id number]|1|0|1) Zithromax 250 mg tablet RxNorm: 014586 2 Tablet(s) PO QD 12/04/2012 0 12/10/2012 Inactive prednisone 20 mg tablet RxNorm: 533550 1 Tablet(s) PO BID 12/04/2012 12/10/2012 Inactive atorvastatin 40 mg tablet RxNorm: 414711 1 Tablet(s) PO QD 11/09/19 13 12/17/2013 Inactive hydrocodone 10 mg-acetaminophen 325 mg tablet RxNorm: 905520 2 Tablet(s) PO TAKE 1 TO 2 TABLETS BY MOUTH EVERY 6 HOURS NEEDED FOR PAIN 10/18/201205/2013 Inactive (Appended: Controlled substance eRx ref ill - RxReferenceNumber: [id number]|1|0|1) hydrocodone 10 mg-acetaminophen 325 mg tablet RxNorm: 761719 2 1-2 Tablet(s) PO Q6H as needed for pain 09/06/2012 10/18/2012 Inactive Lamisil 250 mg tablet RxNorm: 109850 1 Tablet(s) PO QD 08/14/2012 Inactive atorvastatin 40 mg tablet RxNorm: 870313 1 Tablet(s) PO QD 08/08/19 13 11/05/2012 Inactive prednisone 20 mg tablet RxNorm: 118376 1 Tablet(s) PO BID 07/17/2012 07/23/2012 Inactive Wellbutrin SR 150 mg tablet,extended release RxNorm: 500256 1 T ablet(s) PO BID 07/17/2012 08/13/2012 Inactive meloxicam 15 mg tablet RxNorm: 990416 1 Tablet(s) PO QD for pain 07/16/2012 Inactive atorvastatin 40 mg tablet RxNorm: 793758 1 Tablet(s) PO QD 06/27/20 12 08/07/2012 Inactive hydrocodone-acetaminophen 10 mg-325 mg tablet RxNorm: 967225 2 1-2 Tablet(s) PO Q6H as needed for pain 05/23/2012 No Stop Date Active hydrocodone-acetaminophen 10 mg-325 mg tablet RxNorm: 216500 2 1-2 Tablet(s) PO Q6H as needed for pain 04/24/2012 No Stop Date Active hydrocodone-acetaminophen 10 mg-325 mg tablet RxNorm: 162716 2 1-2 Tablet(s) PO Q6H as needed for pain 02/08/2012 No Stop Date Active hydrocodone-acetaminophen 10 mg-325 mg Tab RxNorm: 2998101 1-2 Tablet(s) PO Q6H as needed for pain 01/02/2012 No Stop Date Active hydrocodone-acetaminophen 10 mg-325 mg Tab RxNorm: 8083136 1-2 Tablet(s) PO Q6H as needed for pain 11/29/2011 No Stop Date Active hydrocodone-acetaminophen 10 mg-325 mg Tab RxNorm: 3663279 1-2 Tablet(s) PO Q6H as needed for pain 10/24/2011 No Stop Date Active hydrocodone-acetaminophen 10 mg-325 mg Tab RxNorm: 1636899 1-2 Tablet(s) PO Q6H as needed for pain 10/07/2011 No Stop Date Active simvastatin 40 mg Tab RxNorm: 700418 1 Tablet(s) PO QHS 08/11/2011 Inactive clopidogrel 75 mg tablet RxNorm: 211249 1 Tablet(s) PO QD No Start Da te Active metoprolol succinate ER 25 mg tablet,extended release 24 hr RxNorm: 441886 1 Tablet(s) PO QD No Start Date Active Symbicort 160 mcg-4.5 mcg/actuation HFA aerosol inhaler RxNo rm: 2920330 2 INH QD No Start Date Active atorvastatin 40 mg tablet RxNorm: 447249 1 Tablet(s) PO QD No Start D ate Active aspirin 81 mg tablet RxNorm: 159555 1 Tablet(s) PO QD No Start Date Active Vitamin D3 2,000 unit tablet RxNorm: 745346 3 Tablet(s) PO No Start D ate Active lisinopril 5 mg tablet RxNorm: 601668 1 Tablet(s) PO QD No Start Date Active hydrocodone-acetaminophen 10 mg-325 mg Tab RxNorm: 0681027 1-2 Tablet(s) PO Q6H as needed for pain No Start Date 10/06/2011 Inactive Wellbutrin SR 150 mg tablet,sustained-release RxNorm: 730494 1 Tablet(s) PO QAM No Start Date 09/24/2015 Inactive OxyContin 15 mg 12 hr Tab RxNorm: 0534731 1 Tablet(s) PO BID No Sta rt Date 08/10/2011 Inactive warfarin 5 mg Tab RxNorm: 059510 1 Tablet(s) PO QD No Start Date 03/01 Inactive albuterol sulfate 1.25 mg/3 mL Neb Solution RxNorm: 124416 1 Unit Dose INH prn wheezing, congestion, shortness of breath No Start Date 04/30/2014 Inacti ve azithromycin 250 mg tablet RxNorm: 921854 2 Tablet(s) P O on day one, then one tablet on days 2 - 5 No Start Date 04/26/2015 Inactive warfarin 10 mg Tab RxNorm: 332992 1 Tablet(s) PO QOD No Start Date Inactive Symbicort Inhl RxNorm: Inhalation No Start Date 12/16/2013 Inactive Trilipix 135 mg Cap RxNorm: 273225 1 Capsule(s) PO QD No Start Date 0 12/07/2011 Inactive Chantix Starting Month Box 0.5 mg (11)-1 mg (42) table ts in dose pack RxNorm: 131055 Tablet(s) PO as directed No Start Date 12/03/2012 Inactive clotrimazole-betamethasone 1 %-0.05 % topical cream RxNorm: 365453 TOP As Directed No Start Date 04/30/2014 Inactive nystatin-triamcinolone 100,000 unit/g-0.1 % Topical Cream Rx Norm: 0141747 Application TOP BID for 2-4weeks No Start Date 12/03/2012 Inactive Lovastatin 20 mg Tab RxNorm: 383569 1 Tablet(s) PO QHS No Start Date 08/10/2011 Inactive krill oil oral RxNorm: 42463 oral No Start Date 06/30/2019 Inacti ve warfarin 7.5 mg Tab RxNorm: 368019 1 Tablet(s) PO QOD No Start Date 1 09/16/2011 Inactive Lipitor 80 mg tablet RxNorm: 472127 1 Tablet(s) PO QHS No Start Date 04/27/2014 Inactive simvastatin 40 mg Tab RxNorm: 936467 1 Tablet(s) PO QHS No Start Da te 08/10/2011 Inactive Gemfibrozil 600 mg Tab RxNorm: 537925 1 Tablet(s) PO QHS No Start D ate 08/10/2011 Inactive Medication Administered No Medication Administered data Immunizations No Immunization data Results Observation Observation Code Item Item Code Result Date S vice Location COMPLETE BLOOD COUNT [id number] WBC 9.7 10e9/L 06/19/20 18 Unknown COMPLETE BLOOD COUNT [id number] RBC 5.35 10e12/L 2017 Unknown COMPLETE BLOOD COUNT [id number] HEMOGLOBIN 17.1 g/dL 06/19/20 18 Unknown COMPLETE BLOOD COUNT [id number] HEMATOCRIT 52.4 % 06/19/20 18 Unknown COMPLETE BLOOD COUNT [id number] MCV 97.9 fL 8 Unknown COMPLETE BLOOD COUNT [id number] MCH 32.0 pg 8 Unknown COMPLETE BLOOD COUNT [id number] MCHC 32.6 g/dL 8 Unknown COMPLETE BLOOD COUNT [id number] PLATELET COUNT 257 10e9/L Unknown COMPLETE BLOOD COUNT [id number] Mean Plt Volume 11.2 fL Unknown COMPLETE BLOOD COUNT [id number] Neut Auto 54.6 % 8 Unknown COMPLETE BLOOD COUNT [id number] Lymph Auto 33.3 % 06/19/20 18 Unknown COMPLETE BLOOD COUNT [id number] [place] Auto 9.1 % 8 Unknown COMPLETE BLOOD COUNT [id number] RDW 14.4 % 8 Unknown COMPLETE BLOOD COUNT [id number] Eos Auto 2.6 % 8 Unknown COMPLETE BLOOD COUNT [id number] Baso Auto 0.4 % 8 Unknown COMPLETE BLOOD COUNT [id number] Neutrophil Abs 5.30 10e9/L Unknown COMPLETE BLOOD COUNT [id number] Lymphocyte Abs 3.23 10e9/L Unknown COMPLETE BLOOD COUNT [id number] Monocyte Abs 0.88 10e9/L 06/01 Unknown COMPLETE BLOOD COUNT [id number] Eosinophil Abs 0.25 10e9/L Unknown COMPLETE BLOOD COUNT [id number] RDW-SD 51.8 fL 8 Unknown COMPLETE BLOOD COUNT [id number] Basophil Abs 0.04 10e9/L 06/01 Unknown [facility] 18903 Cholesterol 222 mg/dL 06/19/2018 Unkno wn [facility] 92285 Triglyceride 111 mg/dL 06/19/2018 Unkn own [facility] 15923 HDL CHOLESTEROL 37 mg/dL 06/19/2018 U nknown [facility] 77770 Chol/HDL Ratio 6.00 ratio 06/19/2018 U nknown [facility] 74686 NON-HDL Chol 185 mg/dL 06/19/2018 Unkn own [facility] 72328 LDL Cholesterol 163 mg/dL 06/19/2018 U nknown VITAMIN B 12 41289 VITAMIN B12 532 pg/mL 06/19/2018 Unkn own THYROID STIMULATING HORMONE 48897 TSH 2.685 uIU/mL 06/19/2018 Unknown COMPREHENSIVE METABOLIC 92262 AST 15 U/L 2017 Unknown COMPREHENSIVE METABOLIC 45577 ALT 21 U/L 2017 Unknown COMPREHENSIVE METABOLIC 85577 BUN 16 mg/dL 2017 Unknown COMPREHENSIVE METABOLIC 16194 ALBUMIN 4.1 g/dL 2017 Unknown COMPREHENSIVE METABOLIC 61618 CHLORIDE 99 mmol/L 2017 Unknown COMPREHENSIVE METABOLIC 93042 Bili Total 0.4 mg/dL 06/19 Unknown COMPREHENSIVE METABOLIC 97741 ALK PHOS 43 U/L 2017 Unknown COMPREHENSIVE METABOLIC 60903 SODIUM 136 mmol/L 06/19 Unknown COMPREHENSIVE METABOLIC 33260 CREATININE 0.82 mg/dL 06/01 Unknown COMPREHENSIVE METABOLIC 73752 CALCIUM 9.5 mg/dL 2017 Unknown COMPREHENSIVE METABOLIC 07080 POTASSIUM 5.2 mmol/L 06/19 Unknown COMPREHENSIVE METABOLIC 60945 Total Protein 6.7 g/dL Unknown COMPREHENSIVE METABOLIC 71266 Glucose 81 mg/dL 2017 Unknown COMPREHENSIVE METABOLIC 31651 Bicarbonate 30 mmol/L 06/01 Unknown COMPREHENSIVE METABOLIC 39359 AGAP 7 mmol/L 2017 Unknown FREE T4 19161 T4 Free 0.85 ng/dL 06/19/2018 Unknown GFR CALC 6378355 GFR Afr Amr >60 mL/min 06/19/2018 Unknow n GFR CALC 3250262 GFR Non Afr Amr >60 mL/min 06/19/2018 Un known VITAMIN D TOTAL (25 HYDROXY) 04080 Vitamin D 25 OH 24.1 ng/mL 06/19/2018 Unknown PSA EQUIMOLAR TROY 63520 PSA Total 0.88 ng/mL 8 Unknown GFR CALC 1796443 GFR Non Afr Amr >60 mL/min 09/09/2016 Un known GFR CALC 5421629 GFR Afr Amr >60 mL/min 09/09/2016 Unknow n COMPLETE BLOOD COUNT 9526000 WBC 11.7 10e9/L 017 Unknown COMPLETE BLOOD COUNT 0531738 RBC 5.54 10e12/L 2016 Unknown COMPLETE BLOOD COUNT 3612502 HEMOGLOBIN 17.6 g/dL 09/09/19 17 Unknown COMPLETE BLOOD COUNT 4277417 HEMATOCRIT 52.3 % 09/09/19 17 Unknown COMPLETE BLOOD COUNT 7710803 MCV 94.4 fL 7 Unknown COMPLETE BLOOD COUNT 3103357 MCH 31.8 pg 7 Unknown COMPLETE BLOOD COUNT 8464641 MCHC 33.7 g/dL 7 Unknown COMPLETE BLOOD COUNT 4550155 PLATELET COUNT 259 10e9/L 04/2017 Unknown COMPLETE BLOOD COUNT 3061898 Mean Plt Volume 11.2 fL 04/2017 Unknown COMPLETE BLOOD COUNT 8397968 Neut Auto 53.6 % 7 Unknown COMPLETE BLOOD COUNT 5688828 Lymph Auto 36.2 % 09/09/19 17 Unknown COMPLETE BLOOD COUNT 3094283 [place] Auto 7.9 % 7 Unknown COMPLETE BLOOD COUNT 4468111 Eos Auto 2.1 % 7 Unknown COMPLETE BLOOD COUNT 6048590 RDW 14.2 % 7 Unknown COMPLETE BLOOD COUNT 9341603 Baso Auto 0.2 % 7 Unknown COMPLETE BLOOD COUNT 1678857 Neutrophil Abs 6.27 10e9/L Unknown COMPLETE BLOOD COUNT 5462456 Lymphocyte Abs 4.24 10e9/L Unknown COMPLETE BLOOD COUNT 5427971 Monocyte Abs 0.92 10e9/L 08/31 Unknown COMPLETE BLOOD COUNT 2726253 Eosinophil Abs 0.25 10e9/L Unknown COMPLETE BLOOD COUNT 1412251 RDW-SD 48.1 fL 7 Unknown COMPLETE BLOOD COUNT 5435910 Basophil Abs 0.02 10e9/L 08/31 Unknown COMPREHENSIVE METABOLIC 98144 AST 19 U/L 2016 Unknown COMPREHENSIVE METABOLIC 86173 ALT 25 U/L 2016 Unknown COMPREHENSIVE METABOLIC 96359 BUN 16 mg/dL 2016 Unknown COMPREHENSIVE METABOLIC 97464 ALBUMIN 4.8 g/dL 2016 Unknown COMPREHENSIVE METABOLIC 26592 CHLORIDE 100 mmol/L 09/09 Unknown COMPREHENSIVE METABOLIC 14540 Bili Total 0.7 mg/dL 09/09 Unknown COMPREHENSIVE METABOLIC 53646 ALK PHOS 50 U/L 2016 Unknown COMPREHENSIVE METABOLIC 87753 SODIUM 136 mmol/L 09/09 Unknown COMPREHENSIVE METABOLIC 57623 CREATININE 0.98 mg/dL 08/31 Unknown COMPREHENSIVE METABOLIC 59553 CALCIUM 9.8 mg/dL 2016 Unknown COMPREHENSIVE METABOLIC 19910 POTASSIUM 4.6 mmol/L 09/09 Unknown COMPREHENSIVE METABOLIC 54229 Total Protein 7.5 g/dL Unknown COMPREHENSIVE METABOLIC 99381 Glucose 104 mg/dL 2016 Unknown COMPREHENSIVE METABOLIC 02192 Bicarbonate 27 mmol/L 08/31 Unknown COMPREHENSIVE METABOLIC 37080 AGAP 9 mmol/L 2016 Unknown FREE T4 51336 T4 Free 1.04 ng/dL 09/09/2016 Unknown THYROID STIMULATING HORMONE 81178 TSH 1.618 uIU/mL 09/09/2016 Unknown LIPID GROUP 04374 Cholesterol 251 mg/dL 09/09/2016 Unkno wn LIPID GROUP 34807 Triglyceride 153 mg/dL 09/09/2016 Unkn own LIPID GROUP 29795 HDL CHOLESTEROL 33 mg/dL 09/09/2016 U nknown LIPID GROUP 23376 Chol/HDL Ratio 7.61 ratio 09/09/2016 U nknown LIPID GROUP 61533 NON-HDL Chol 218 mg/dL 09/09/2016 Unkn own LIPID GROUP 20941 LDL Cholesterol 187 mg/dL 09/09/2016 U nknown LIPID GROUP 95783 HDL TEST 39 MG/DL 09/15/2015 Unknown LIPID GROUP 76808 TRIG 106 MG/DL 09/15/2015 Unknown LIPID GROUP 47996 TEST LDL 152 MG/DL 09/15/2015 Unknown LIPID GROUP 39118 CHOL 212 MG/DL 09/15/2015 Unknown LIPID GROUP 94303 RCHOL/HDL 5.44 RATIO 09/15/2015 Unknow n LIPID GROUP 28441 NON-HDL CH 173 MG/DL 09/15/2015 Unknow n GFR CALC 1131892 GFR AA >60 ML/MIN 09/15/2015 Unknown GFR CALC 7544102 GFR NON-AA >60 ML/MIN 09/15/2015 Unknown COMPREHENSIVE METABOLIC 55186 AST 18 U/L 2015 Unknown COMPREHENSIVE METABOLIC 53058 ALT 28 IU/L 2015 Unknown COMPREHENSIVE METABOLIC 30811 BUN 14 MG/DL 2015 Unknown COMPREHENSIVE METABOLIC 40968 ALBUMIN 4.2 GM/DL 2015 Unknown COMPREHENSIVE METABOLIC 30535 CHLORIDE 101 MMOL/L 09/15 Unknown COMPREHENSIVE METABOLIC 24298 BILI TOT 0.6 MG/DL 2015 Unknown COMPREHENSIVE METABOLIC 54812 ALK PHOS 48 U/L 2015 Unknown COMPREHENSIVE METABOLIC 71000 SODIUM 135 MMOL/L 09/15 Unknown COMPREHENSIVE METABOLIC 80382 CREATININE 0.91 MG/DL 08/31 Unknown COMPREHENSIVE METABOLIC 21947 CALCIUM 9.2 MG/DL 2015 Unknown COMPREHENSIVE METABOLIC 40472 POTASSIUM 4.6 MMOL/L 09/15 Unknown COMPREHENSIVE METABOLIC 58935 PROT TOT 6.6 GM/DL 2015 Unknown COMPREHENSIVE METABOLIC 38942 Glucose 97 MG/DL 2015 Unknown COMPREHENSIVE METABOLIC 53612 BICARB 27 MMOL/L 2015 Unknown COMPREHENSIVE METABOLIC 01249 ANION GAP 7 MEQ/L 2015 Unknown LIPID GROUP 62785 HDL TEST 35 MG/DL 04/14/2015 Unknown LIPID GROUP 80493 TRIG 135 MG/DL 04/14/2015 Unknown LIPID GROUP 38403 TEST LDL 153 MG/DL 04/14/2015 Unknown LIPID GROUP 47330 CHOL 215 MG/DL 04/14/2015 Unknown LIPID GROUP 60237 RCHOL/HDL 6.14 RATIO 04/14/2015 Unknow n LIPID GROUP 35576 NON-HDL CH 180 MG/DL 04/14/2015 Unknow n GFR CALC 3305748 GFR AA >60 ML/MIN 04/14/2015 Unknown GFR CALC 1413319 GFR NON-AA >60 ML/MIN 04/14/2015 Unknown COMPREHENSIVE METABOLIC 66456 AST 23 U/L 2014 Unknown COMPREHENSIVE METABOLIC 02335 ALT 27 IU/L 2014 Unknown COMPREHENSIVE METABOLIC 34680 BUN 15 MG/DL 2014 Unknown COMPREHENSIVE METABOLIC 35306 ALBUMIN 4.2 GM/DL 2014 Unknown COMPREHENSIVE METABOLIC 41638 CHLORIDE 103 MMOL/L 04/14 Unknown COMPREHENSIVE METABOLIC 56537 BILI TOT 0.8 MG/DL 2014 Unknown COMPREHENSIVE METABOLIC 78206 ALK PHOS 50 U/L 2014 Unknown COMPREHENSIVE METABOLIC 22109 SODIUM 134 MMOL/L 04/14 Unknown COMPREHENSIVE METABOLIC 75199 CREATININE 0.93 MG/DL 03/31 Unknown COMPREHENSIVE METABOLIC 59020 CALCIUM 9.4 MG/DL 2014 Unknown COMPREHENSIVE METABOLIC 47969 POTASSIUM 4.4 MMOL/L 04/14 Unknown COMPREHENSIVE METABOLIC 23352 PROT TOT 6.8 GM/DL 2014 Unknown COMPREHENSIVE METABOLIC 97962 Glucose 101 MG/DL 2014 Unknown COMPREHENSIVE METABOLIC 78627 BICARB 25 MMOL/L 2014 Unknown COMPREHENSIVE METABOLIC 13994 ANION GAP 6 MEQ/L 2014 Unknown PSA EQUIMOLAR TROY 01548 PSA EQ 1.04 NG/ML 11/10/ 5 Unknown GFR CALC 6518981 GFR AA >60 ML/MIN 11/10/2014 Unknown GFR CALC 4878148 GFR NON-AA >60 ML/MIN 11/10/2014 Unknown LIPID GROUP 61052 HDL TEST 31 MG/DL 11/10/2014 Unknown LIPID GROUP 47804 TRIG 133 MG/DL 11/10/2014 Unknown LIPID GROUP 15899 TEST LDL 74 MG/DL 11/10/2014 Unknown LIPID GROUP 09886 CHOL 132 MG/DL 11/10/2014 Unknown LIPID GROUP 23529 RCHOL/HDL 4.26 RATIO 11/10/2014 Unknow n LIPID GROUP 75210 NON-HDL CH 101 MG/DL 11/10/2014 Unknow n COMPLETE BLOOD COUNT 8912175 WBC 10.2 10e9/L 015 Unknown COMPLETE BLOOD COUNT 3567574 RBC 5.01 10e12/L 2014 Unknown COMPLETE BLOOD COUNT 1182452 HGB 16.1 g/dL 5 Unknown COMPLETE BLOOD COUNT 4143276 HCT DET 48.1 % 5 Unknown COMPLETE BLOOD COUNT 0512680 MCV 96.0 fL 5 Unknown COMPLETE BLOOD COUNT 0697740 MCH 32.1 pg 5 Unknown COMPLETE BLOOD COUNT 2589404 MCHC 33.5 g/dL 5 Unknown COMPLETE BLOOD COUNT 7556582 PLT 248 10e9/L 11/11/19 15 Unknown COMPLETE BLOOD COUNT 1892510 MPV 11.4 fL 5 Unknown COMPLETE BLOOD COUNT 8292157 GIUSEPPE % 51.2 % 5 Unknown COMPLETE BLOOD COUNT 9994976 LY % 37.4 % 5 Unknown COMPLETE BLOOD COUNT 8231009 MON % 9.2 % 5 Unknown COMPLETE BLOOD COUNT 3682169 EOS % 2.0 % 5 Unknown COMPLETE BLOOD COUNT 8850306 BASO % 0.2 % 5 Unknown COMPLETE BLOOD COUNT 9057660 RDW 14.0 % 5 Unknown COMPLETE BLOOD COUNT 6427595 ABS GIUSEPPE 5.22 10e9/L 015 Unknown COMPLETE BLOOD COUNT 4181754 ABS LYMPH 3.81 10e9/L 015 Unknown COMPLETE BLOOD COUNT 7975605 ABS MONO 0.94 10e9/L 015 Unknown COMPLETE BLOOD COUNT 2586325 ABS EOS 0.20 10e9/L 015 Unknown COMPLETE BLOOD COUNT 8719232 ABS BASO 0.02 10e9/L 015 Unknown COMPLETE BLOOD COUNT 1815996 RDW-SD 47.8 fL 5 Unknown FREE T4 08277 FREE T4 0.92 NG/DL 11/10/2014 Unknown COMPREHENSIVE METABOLIC 93821 AST 18 U/L 2014 Unknown COMPREHENSIVE METABOLIC 37411 ALT 25 IU/L 2014 Unknown COMPREHENSIVE METABOLIC 39164 BUN 16 MG/DL 2014 Unknown COMPREHENSIVE METABOLIC 70604 ALBUMIN 4.5 GM/DL 2014 Unknown COMPREHENSIVE METABOLIC 33550 CHLORIDE 103 MMOL/L 11/10 Unknown COMPREHENSIVE METABOLIC 96169 BILI TOT 0.4 MG/DL 2014 Unknown COMPREHENSIVE METABOLIC 29140 ALK PHOS 53 U/L 2014 Unknown COMPREHENSIVE METABOLIC 94107 SODIUM 135 MMOL/L 11/10 Unknown COMPREHENSIVE METABOLIC 13303 CREATININE 0.97 MG/DL 10/29 Unknown COMPREHENSIVE METABOLIC 70524 CALCIUM 9.4 MG/DL 2014 Unknown COMPREHENSIVE METABOLIC 60953 POTASSIUM 4.4 MMOL/L 11/10 Unknown COMPREHENSIVE METABOLIC 14130 PROT TOT 6.9 GM/DL 2014 Unknown COMPREHENSIVE METABOLIC 82160 Glucose 91 MG/DL 2014 Unknown COMPREHENSIVE METABOLIC 08056 BICARB 26 MMOL/L 2014 Unknown COMPREHENSIVE METABOLIC 64193 ANION GAP 6 MEQ/L 2014 Unknown THYROID STIMULATING HORMONE 15082 TSH 3.791 uIU/ML 11/10/2014 Unknown LIPID GROUP 35678 HDL TEST 35 MG/DL 04/29/2014 Unknown LIPID GROUP 67452 TRIG 123 MG/DL 04/29/2014 Unknown LIPID GROUP 05674 TEST LDL 117 MG/DL 04/29/2014 Unknown LIPID GROUP 60043 CHOL 177 MG/DL 04/29/2014 Unknown LIPID GROUP 73925 RCHOL/HDL 5.06 RATIO 04/29/2014 Unknow n LIPID GROUP 80815 NON-HDL CH 142 MG/DL 04/29/2014 Unknow n COMPREHENSIVE METABOLIC 79885 AST 18 U/L 2013 Unknown COMPREHENSIVE METABOLIC 72511 ALT 29 IU/L 2013 Unknown COMPREHENSIVE METABOLIC 93678 BUN 19 MG/DL 2013 Unknown COMPREHENSIVE METABOLIC 44008 ALBUMIN 4.0 GM/DL 2013 Unknown COMPREHENSIVE METABOLIC 55239 CHLORIDE 106 MMOL/L 04/29 Unknown COMPREHENSIVE METABOLIC 70606 BILI TOT 0.4 MG/DL 2013 Unknown COMPREHENSIVE METABOLIC 42335 ALK PHOS 51 U/L 2013 Unknown COMPREHENSIVE METABOLIC 20577 SODIUM 138 MMOL/L 04/29 Unknown COMPREHENSIVE METABOLIC 69764 CREATININE 0.87 MG/DL 04/02 Unknown COMPREHENSIVE METABOLIC 91288 CALCIUM 9.4 MG/DL 2013 Unknown COMPREHENSIVE METABOLIC 28221 POTASSIUM 4.5 MMOL/L 04/29 Unknown COMPREHENSIVE METABOLIC 77651 PROT TOT 6.8 GM/DL 2013 Unknown COMPREHENSIVE METABOLIC 02462 Glucose 106 MG/DL 2013 Unknown COMPREHENSIVE METABOLIC 29713 BICARB 24 MMOL/L 2013 Unknown COMPREHENSIVE METABOLIC 92768 ANION GAP 8 MEQ/L 2013 Unknown GFR CALC 5181638 GFR AA >60 ML/MIN 04/29/2014 Unknown GFR CALC 1256835 GFR NON-AA >60 ML/MIN 04/29/2014 Unknown LIPID GROUP 10393 HDL TEST 30 MG/DL 12/18/2013 Unknown LIPID GROUP 62036 TRIG 128 MG/DL 12/18/2013 Unknown LIPID GROUP 37803 TEST LDL 166 MG/DL 12/18/2013 Unknown LIPID GROUP 53850 CHOL 222 MG/DL 12/18/2013 Unknown LIPID GROUP 35443 RCHOL/HDL 7.40 RATIO 12/18/2013 Unknow n GFR CALC 9865988 GFR AA >60 ML/MIN 12/18/2013 Unknown GFR CALC 4460060 GFR NON-AA >60 ML/MIN 12/18/2013 Unknown FREE T4 37920 FREE T4 1.07 NG/DL 12/18/2013 Unknown COMPLETE BLOOD COUNT 4234390 WBC 7.2 10e9/L 12/19/19 14 Unknown COMPLETE BLOOD COUNT 4115928 RBC 4.89 10e12/L 2013 Unknown COMPLETE BLOOD COUNT 6536414 HGB 15.5 g/dL 4 Unknown COMPLETE BLOOD COUNT 0474610 HCT DET 46.6 % 4 Unknown COMPLETE BLOOD COUNT 6172126 MCV 95.3 fL 4 Unknown COMPLETE BLOOD COUNT 4724071 MCH 31.7 pg 4 Unknown COMPLETE BLOOD COUNT 5781965 MCHC 33.3 g/dL 4 Unknown COMPLETE BLOOD COUNT 3445173 PLT 246 10e9/L 12/19/19 14 Unknown COMPLETE BLOOD COUNT 3398448 MPV 11.4 fL 4 Unknown COMPLETE BLOOD COUNT 7966858 GIUSEPPE % 48.6 % 4 Unknown COMPLETE BLOOD COUNT 0504631 LY % 37.4 % 4 Unknown COMPLETE BLOOD COUNT 4689573 MON % 10.5 % 4 Unknown COMPLETE BLOOD COUNT 9815983 EOS % 3.2 % 4 Unknown COMPLETE BLOOD COUNT 7971355 BASO % 0.3 % 4 Unknown COMPLETE BLOOD COUNT 9241655 RDW 13.6 % 4 Unknown COMPLETE BLOOD COUNT 3052365 ABS GIUSEPPE 3.50 10e9/L 014 Unknown COMPLETE BLOOD COUNT 2291205 ABS LYMPH 2.69 10e9/L 014 Unknown COMPLETE BLOOD COUNT 7321114 ABS MONO 0.76 10e9/L 014 Unknown COMPLETE BLOOD COUNT 5096854 ABS EOS 0.23 10e9/L 014 Unknown COMPLETE BLOOD COUNT 9533044 ABS BASO 0.02 10e9/L 014 Unknown COMPLETE BLOOD COUNT 7673431 RDW-SD 46.2 fL 4 Unknown COMPREHENSIVE METABOLIC 76386 AST 38 U/L 2013 Unknown COMPREHENSIVE METABOLIC 53679 ALT 33 IU/L 2013 Unknown COMPREHENSIVE METABOLIC 37515 BUN 15 MG/DL 2013 Unknown COMPREHENSIVE METABOLIC 48125 ALBUMIN 4.2 GM/DL 2013 Unknown COMPREHENSIVE METABOLIC 66645 CHLORIDE 103 MMOL/L 12/18 Unknown COMPREHENSIVE METABOLIC 70675 BILI TOT 0.6 MG/DL 2013 Unknown COMPREHENSIVE METABOLIC 17128 ALK PHOS 45 U/L 2013 Unknown COMPREHENSIVE METABOLIC 69729 SODIUM 136 MMOL/L 12/18 Unknown COMPREHENSIVE METABOLIC 06432 CREATININE 0.97 MG/DL 11/29 Unknown COMPREHENSIVE METABOLIC 06998 CALCIUM 9.2 MG/DL 2013 Unknown COMPREHENSIVE METABOLIC 27929 POTASSIUM 4.2 MMOL/L 12/18 Unknown COMPREHENSIVE METABOLIC 30868 PROT TOT 7.0 GM/DL 2013 Unknown COMPREHENSIVE METABOLIC 91344 Glucose 120 MG/DL 2013 Unknown COMPREHENSIVE METABOLIC 88332 BICARB 24 MMOL/L 2013 Unknown COMPREHENSIVE METABOLIC 04588 ANION GAP 9 MEQ/L 2013 Unknown THYROID STIMULATING HORMONE 72440 TSH 1.305 uIU/ML 12/18/2013 Unknown PSA EQUIMOLAR TROY 28231 PSA EQ 1.71 NG/ML 4 Unknown LIPID GROUP 38197 HDL TEST 29 MG/DL 07/17/2012 Unknown LIPID GROUP 47925 TRIG 155 MG/DL 07/17/2012 Unknown LIPID GROUP 07794 TEST LDL 105 MG/DL 07/17/2012 Unknown LIPID GROUP 75643 CHOL 165 MG/DL 07/17/2012 Unknown LIPID GROUP 49341 RCHOL/HDL 5.69 RATIO 07/17/2012 Unknow n GFR CALC 6124461 GFR AA >60 ML/MIN 07/17/2012 Unknown GFR CALC 5774432 GFR NON-AA >60 ML/MIN 07/17/2012 Unknown COMPREHENSIVE METABOLIC 42046 AST 19 U/L 2011 Unknown COMPREHENSIVE METABOLIC 53303 ALT 25 IU/L 2011 Unknown COMPREHENSIVE METABOLIC 71652 BUN 14 MG/DL 2011 Unknown COMPREHENSIVE METABOLIC 24608 ALBUMIN 4.4 GM/DL 2011 Unknown COMPREHENSIVE METABOLIC 56311 CHLORIDE 103 MMOL/L 07/17 Unknown COMPREHENSIVE METABOLIC 15949 BILI TOT 0.6 MG/DL 2011 Unknown COMPREHENSIVE METABOLIC 80468 ALK PHOS 53 U/L 2011 Unknown COMPREHENSIVE METABOLIC 23625 SODIUM 136 MMOL/L 07/17 Unknown COMPREHENSIVE METABOLIC 81541 CREATININE 0.97 MG/DL 06/30 Unknown COMPREHENSIVE METABOLIC 80999 CALCIUM 9.4 MG/DL 2011 Unknown COMPREHENSIVE METABOLIC 79345 POTASSIUM 4.3 MMOL/L 07/17 Unknown COMPREHENSIVE METABOLIC 14918 PROT TOT 6.9 GM/DL 2011 Unknown COMPREHENSIVE METABOLIC 92226 Glucose 102 MG/DL 2011 Unknown COMPREHENSIVE METABOLIC 86724 BICARB 27 MMOL/L 2011 Unknown COMPREHENSIVE METABOLIC 30180 ANION GAP 6 MEQ/L 2011 Unknown ERYTHROCYTE SEDIMENTATION RATE 19547 ESR 14 MM/HR 03/20/2012 Unknown LIPID GROUP 79763 HDL TEST 31 MG/DL 03/20/2012 Unknown LIPID GROUP 08553 TRIG 210 MG/DL 03/20/2012 Unknown LIPID GROUP 68912 TEST LDL 164 MG/DL 03/20/2012 Unknown LIPID GROUP 73405 CHOL 237 MG/DL 03/20/2012 Unknown LIPID GROUP 43561 RCHOL/HDL 7.65 RATIO 03/20/2012 Unknow n GFR CALC 0618895 GFR AA >60 ML/MIN 03/20/2012 Unknown GFR CALC 0487278 GFR NON-AA >60 ML/MIN 03/20/2012 Unknown C-REACTIVE PROTEIN (CRP) QUANT 79807 CRP 0.9 MG/DL 03/20/2012 Unknown COMPLETE BLOOD COUNT 89448 WBC 9.7 10e9/L 03/20/20 12 Unknown COMPLETE BLOOD COUNT 00090 RBC 5.14 10e12/L 2011 Unknown COMPLETE BLOOD COUNT 92966 HGB 15.5 g/dL 2 Unknown COMPLETE BLOOD COUNT 30038 HCT DET 46.9 % 2 Unknown COMPLETE BLOOD COUNT 23086 MCV 91.2 fL 2 Unknown COMPLETE BLOOD COUNT 68564 MCH 30.2 pg 2 Unknown COMPLETE BLOOD COUNT 63353 MCHC 33.0 g/dL 2 Unknown COMPLETE BLOOD COUNT 77310 PLT 280 10e9/L 03/20/20 12 Unknown COMPLETE BLOOD COUNT 92991 MPV 10.6 fL 2 Unknown COMPLETE BLOOD COUNT 01719 GIUSEPPE % 61.5 % 2 Unknown COMPLETE BLOOD COUNT 19212 LY % 26.5 % 2 Unknown COMPLETE BLOOD COUNT 96119 MON % 8.8 % 2 Unknown COMPLETE BLOOD COUNT 35329 EOS % 3.0 % 2 Unknown COMPLETE BLOOD COUNT 61720 BASO % 0.2 % 2 Unknown COMPLETE BLOOD COUNT 83522 RDW 15.3 % 2 Unknown COMPLETE BLOOD COUNT 04264 ABS GIUSEPPE 5.97 10e9/L 012 Unknown COMPLETE BLOOD COUNT 80140 ABS LYMPH 2.57 10e9/L 012 Unknown COMPLETE BLOOD COUNT 65344 ABS MONO 0.85 10e9/L 012 Unknown COMPLETE BLOOD COUNT 17767 ABS EOS 0.29 10e9/L 012 Unknown COMPLETE BLOOD COUNT 54643 ABS BASO 0.02 10e9/L 012 Unknown COMPLETE BLOOD COUNT 56421 RDW-SD 50.3 fL 201 2 Unknown COMPREHENSIVE METABOLIC 45801 AST 16 U/L 2011 Unknown COMPREHENSIVE METABOLIC 97005 ALT 21 IU/L 2011 Unknown COMPREHENSIVE METABOLIC 27151 BUN 15 MG/DL 2011 Unknown COMPREHENSIVE METABOLIC 44574 ALBUMIN 4.3 GM/DL 2011 Unknown COMPREHENSIVE METABOLIC 92807 CHLORIDE 102 MMOL/L 03/20 Unknown COMPREHENSIVE METABOLIC 89418 BILI TOT 0.5 MG/DL 2011 Unknown COMPREHENSIVE METABOLIC 23923 ALK PHOS 60 U/L 2011 Unknown COMPREHENSIVE METABOLIC 07637 SODIUM 135 MMOL/L 03/20 Unknown COMPREHENSIVE METABOLIC 39285 CREATININE 0.94 MG/DL 03/01 Unknown COMPREHENSIVE METABOLIC 85929 CALCIUM 9.0 MG/DL 2011 Unknown COMPREHENSIVE METABOLIC 50781 POTASSIUM 4.4 MMOL/L 03/20 Unknown COMPREHENSIVE METABOLIC 90347 PROT TOT 6.7 GM/DL 2011 Unknown COMPREHENSIVE METABOLIC 35367 Glucose 96 MG/DL 2011 Unknown COMPREHENSIVE METABOLIC 84399 BICARB 25 MMOL/L 2011 Unknown COMPREHENSIVE METABOLIC 94331 ANION GAP 8 MEQ/L 2011 [place] [address] PRO TIME 21.6 SEC 03/20/[place] [address] INR MCMC 1.8 03/20/2012 Unknow n Procedures Procedure Codes Date ROUTINE VENIPUNCTURE CPT-4: 06985 06/19/2018 ASSAY OF FREE THYROXINE CPT-4: 19419 06/19/2018 ASSAY THYROID STIM HORMONE CPT-4: 35644 06/19/2018 COMPREHEN METABOLIC PANEL CPT-4: 51718 06/19/2018 COMPLETE CBC W/AUTO DIFF WBC CPT-4: 33377 06/19/2018 LIPID PANEL CPT-4: 58984 06/19/2018 ASSAY OF PSA TOTAL CPT-4: 76700 06/19/2018 VITAMIN D TOTAL (25 HYDROXY) CPT-4: 89783 06/19/2018 VITAMIN B-12 CPT-4: 36772 06/19/2018 DEXAMETHASONE SODIUM PHOS CPT-4: J1100 08/31/2017 TRIAMCINOLONE ACET INJ NOS CPT-4: J3301 08/31/2017 DRAIN/INJECT JOINT/BURSA CPT-4: 29615 08/31/2017 ROUTINE VENIPUNCTURE CPT-4: 48056 08/01/2017 COMPREHEN METABOLIC PANEL CPT-4: 81120 08/01/2017 LIPID PANEL CPT-4: 24157 08/01/2017 DRAIN/INJECT JOINT/BURSA CPT-4: 16589 09/12/2016 TRIAMCINOLONE ACET INJ NOS CPT-4: J3301 09/12/2016 DEXAMETHASONE SODIUM PHOS CPT-4: J1100 09/12/2016 ROUTINE VENIPUNCTURE CPT-4: 86692 09/09/2016 ASSAY OF FREE THYROXINE CPT-4: 52216 09/09/2016 ASSAY THYROID STIM HORMONE CPT-4: 35371 09/09/2016 COMPREHEN METABOLIC PANEL CPT-4: 37818 09/09/2016 COMPLETE CBC W/AUTO DIFF WBC CPT-4: 56955 09/09/2016 LIPID PANEL CPT-4: 89783 09/09/2016 SPECIAL REPORTS OR FORMS CPT-4: 25881 08/05/2016 ROUTINE VENIPUNCTURE CPT-4: 91179 09/15/2015 COMPREHEN METABOLIC PANEL CPT-4: 20147 09/15/2015 LIPID PANEL CPT-4: 79326 09/15/2015 PRESCRIP TRANSMIT VIA ERX SY CPT-4: G8553 08/31/2015 ROUTINE VENIPUNCTURE CPT-4: 30536 04/14/2015 COMPREHEN METABOLIC PANEL CPT-4: 31710 04/14/2015 LIPID PANEL CPT-4: 24477 04/14/2015 ROUTINE VENIPUNCTURE CPT-4: 36453 11/10/2014 ASSAY OF FREE THYROXINE CPT-4: 84440 11/10/2014 ASSAY THYROID STIM HORMONE CPT-4: 25762 11/10/2014 COMPREHEN METABOLIC PANEL CPT-4: 50722 11/10/2014 COMPLETE CBC W/AUTO DIFF WBC CPT-4: 03418 11/10/2014 LIPID PANEL CPT-4: 68607 11/10/2014 ASSAY OF PSA TOTAL CPT-4: 76558 11/10/2014 ROUTINE VENIPUNCTURE CPT-4: 85908 04/29/2014 COMPREHEN METABOLIC PANEL CPT-4: 75572 04/29/2014 LIPID PANEL CPT-4: 00906 04/29/2014 ROUTINE VENIPUNCTURE CPT-4: 68844 12/18/2013 ASSAY OF FREE THYROXINE CPT-4: 61626 12/18/2013 ASSAY THYROID STIM HORMONE CPT-4: 98763 12/18/2013 COMPREHEN METABOLIC PANEL CPT-4: 61206 12/18/2013 COMPLETE CBC W/AUTO DIFF WBC CPT-4: 91933 12/18/2013 LIPID PANEL CPT-4: 77203 12/18/2013 ASSAY OF PSA TOTAL CPT-4: 66189 12/18/2013 ROUTINE VENIPUNCTURE CPT-4: 14959 07/17/2012 COMPREHEN METABOLIC PANEL CPT-4: 83770 07/17/2012 LIPID PANEL CPT-4: 41502 07/17/2012 ROUTINE VENIPUNCTURE CPT-4: 53522 03/20/2012 COMPLETE CBC W/AUTO DIFF WBC CPT-4: 90691 03/20/2012 RBC SED RATE AUTOMATED CPT-4: 97040 03/20/2012 C-REACTIVE PROTEIN CPT-4: 07411 03/20/2012 COMPREHEN METABOLIC PANEL CPT-4: 10515 03/20/2012 LIPID PANEL CPT-4: 98937 03/20/2012 PROTHROMBIN TIME CPT-4: 58441 03/20/2012 Vital Signs Date Vital 07/01/2019 Blood Pressure 1: 114/80 Code: 8480-6 BMI: 30.4 Code: 31834-6 Heart Rate 1: 72 bpm Height: 6'2" [...] 1: 126/82 Code: 8480-6 BMI: 31.2 Code: 42454-3 Heart Rate 1: 84 bpm Height: 6'2" Respiratory Rate: 20 bpm SpO2: 94% Tempera ture: 37.0 (C) / 98.6 (F) Weight: 243 lbs 03/02/2018 Blood Pressure 1: 122/80 Code: 8480-6 BMI: 30.8 Code: 42329-5 Heart Rate 1: 74 bpm Height: 6'2" Respiratory Rate: 20 bpm SpO2: 95% Tempera ture: 37.1 (C) / 98.8 (F) Weight: 240 lbs 08/31/2017 Blood Pressure 1: 136/90 Code: 8480-6 Heart Rate 1: 76 bpm Respiratory Rate: 20 bpm Temperature: 36.7 (C) / 98.0 (F) Weight: 247 lbs 07/18/2017 Blood Pressure 1: 126/78 Code: 8480-6 BMI: 31.3 Code: 30622-3 Heart Rate 1: 72 bpm Height: 6'2" Respiratory Rate: 20 bpm SpO2: 94% Tempera ture: 37.0 (C) / 98.6 (F) Weight: 244 lbs 04/24/2017 Blood Pressure 1: 152/92 Code: 8480-6 BMI: 31.1 Code: 78119-9 Heart Rate 1: 74 bpm Height: 6'2" Respiratory Rate: 18 bpm SpO2: 98% Tempera ture: 35.9 (C) / 96.6 (F) Weight: 242 lbs 01/04/2017 Blood Pressure 1: 122/70 Code: 8480-6 BMI: 30.4 Code: 34061-7 Heart Rate 1: 88 bpm Height: 6'2" Respiratory Rate: 20 bpm SpO2: 96% Tempera ture: 36.6 (C) / 97.8 (F) Weight: 237 lbs 09/12/2016 Blood Pressure 1: 136/78 Code: 8480-6 Heart Rate 1: 82 bpm Respiratory Rate: 22 bpm SpO2: 94% Temperature: 36.4 (C) / 97.6 (F) We ight: 234 lbs 09/07/2016 Blood Pressure 1: 122/70 Code: 8480-6 BMI: 30.0 Code: 49677-5 Heart Rate 1: 88 bpm Height: 6'2" Respiratory Rate: 20 bpm SpO2: 94% Tempera ture: 36.6 (C) / 97.9 (F) Weight: 234 lbs 08/31/2015 Blood Pressure 1: 142/94 Code: 8480-6 BMI: 28.9 Code: 48402-5 Heart Rate 1: 92 bpm Height: 6'2" Respiratory Rate: 20 bpm Temperature: 36 .9 (C) / 98.5 (F) Weight: 225 lbs 04/14/2015 Blood Pressure 1: 126/80 Code: 8480-6 BMI: 28.0 Code: 71449-0 Heart Rate 1: 76 bpm Height: 6'2" Respiratory Rate: 20 bpm Temperature: 36 .6 (C) / 97.8 (F) Weight: 218 lbs 10/07/2014 Blood Pressure 1: 128/76 Code: 8480-6 BMI: 28.6 Code: 88633-2 Heart Rate 1: 84 bpm Height: 6'2" Respiratory Rate: 22 bpm Temperature: 36 .6 (C) / 97.9 (F) Weight: 223 lbs 05/01/2014 Blood Pressure 1: 126/68 Code: 8480-6 BMI: 28.2 Code: 69645-8 Heart Rate 1: 84 bpm Height: 6'2" Respiratory Rate: 20 bpm Temperature: 36 .8 (C) / 98.3 (F) Weight: 220 lbs 12/17/2013 Blood Pressure 1: 136/82 Code: 8480-6 BMI: 29.6 Code: 36819-5 Heart Rate 1: 76 bpm Height: 6'1" Respiratory Rate: 20 bpm Temperature: 36 .8 (C) / 98.2 (F) Weight: 224 lbs 12/11/2012 Blood Pressure 1: 122/86 Code: 8480-6 BMI: 30.5 Code: 69828-0 Heart Rate 1: 76 bpm Height: 6'1" Respiratory Rate: 20 bpm SpO2: 93% Tempera ture: 36.8 (C) / 98.2 (F) Weight: 231 lbs 12/04/2012 Blood Pressure 1: 124/86 Code: 8480-6 BMI: 30.5 Code: 99246-9 Heart Rate 1: 68 bpm Height: 6'1" Respiratory Rate: 20 bpm SpO2: 95% Tempera ture: 36.6 (C) / 97.8 (F) Weight: 231 lbs 08/14/2012 Blood Pressure 1: 126/70 Code: 8480-6 BMI: 29.4 Code: 57551-3 Heart Rate 1: 80 bpm Height: 6'1" Respiratory Rate: 20 bpm Temperature: 36 .8 (C) / 98.3 (F) Weight: 223 lbs 07/17/2012 Blood Pressure 1: 124/82 Code: 8480-6 BMI: 29.7 Code: 51636-0 Heart Rate 1: 80 bpm Height: 6'1" Respiratory Rate: 20 bpm Temperature: 36 .8 (C) / 98.2 (F) Weight: 225 lbs 03/20/2012 Blood Pressure 1: 124/78 Code: 8480-6 BMI: 29.3 Code: 21495-6 Heart Rate 1: 72 bpm Height: 6'1" Respiratory Rate: 20 bpm Temperature: 36 .6 (C) / 97.8 (F) Weight: 222 lbs 12/08/2011 Blood Pressure 1: 112/64 Code: 8480-6 BMI: 28.2 Code: 83237-7 Heart Rate 1: 78 bpm Height: 6'1" Temperature: 36.3 (C) / 97.4 (F) Weight: 214 lbs 08/11/2011 Blood Pressure 1: 128/70 Code: 8480-6 BMI: 27.6 Code: 14771-2 Heart Rate 1: 76 bpm Height: 6'1" Respiratory Rate: 20 bpm Temperature: 36 .9 (C) / 98.4 (F) Weight: 209 lbs 05/26/2010 Blood Pressure 1: 116/78 Code: 8480-6 Heart Rate 1: 80 bpm Temperature: 36.7 (C) / 98.0 (F) Weight: 224 lbs Functional Status No Functional Status data Reason For Visit Reason For Visit Effective Dates Notes follow up 07/01/2019 follow up 03/27/2019 follow up 12/25/2018 Patient had 100% blo ckage to LAD and had stent placed 11-06-18 wrist pain 08/22/2018 follow up 06/19/2018 Medication Monitoring 03/02/2018 Medication Monitoring 02/01/2018 JONATHAN DONATO Performed wrist pain 08/31/2017 lab draw 08/01/2017 [...] it Encounters Encounter Performer Location Codes Date ([id number]) OFFICE/OUTPATIENT VISIT EST Diagnosis: Cephalgia[ICD10: R51] Diagnosis: Family history of brain aneurysm[ICD10: Z82.49] Diagnosis: Other intervertebral disc degeneration, 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] Martita MCGOVERN LUVHANSohail [employer] CPT-4: 69346 07/01/2019 ([id number]) OFFICE/OUTPATIENT VISIT EST Diagnosis: 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] Diagnosis: Bilateral primary osteoarthritis of knee[ICD10: M17.0] Diagnosis: Nicotine dependence, unspecified, uncomplicated[ICD10: F17.200] Diagnosis: Mixed hyperlipidemia[ICD10: E78.2] Martita RENTERIA LUVHANSohail [employer] CPT-4: 79155 03/27/2019 ([id number]) OFFICE/OUTPATIENT VISIT EST Diagnosis: Mixed hyperlipidemia[ICD10: E78.2] Diagnosis: 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] Diagnosis: Other intervertebral disc degeneration, 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] Martita MCGOVERN LUVHANSohail [employer] CPT-4: 12072 12/25/2018 ([id number]) OFFICE/OUTPATIENT VISIT EST Diagnosis: Mixed hyperlipidemia[ICD10: E78.2] Diagnosis: Other fatigue[ICD10: R53.83] Diagnosis: Encounter for screening for malignant neoplasm of prostate[ICD10: Z12.5] Diagnosis: Primary osteoarthritis, 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] Diagnosis: Pain in thoracic spine[ICD10: M54.6] Martita FISCHER LUVHANSohail [employer] CPT-4: 08442 06/19/2018 ([id number]) OFFICE/OUTPATIENT VISIT EST Diagnosis: Encounter for therapeutic drug level monitoring[ICD10: Z51.81] Diagnosis: Pain in 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: M25.531] Diagnosis: Pain in right knee[ICD10: M25.561] Diagnosis: Pain in left knee[ICD10: M25.562] Marian Resendizalvarado Lam LUVHANSohail [employer] CPT-4: 69843 03/02/2018 ([id number]) OFFICE/OUTPATIENT VISIT EST Diagnosis: Mixed hyperlipidemia[ICD10: E78.2] Martita RENTERIA LUVHANSohail [employer] CPT-4: 18774 08/01/2017 ([id number]) OFFICE/OUTPATIENT VISIT EST Diagnosis: Other spondylosis with radiculopathy, cervical region[ICD10: M47.22] Diagnosis: Pain in 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: M25.531] Diagnosis: Mixed hyperlipidemia[ICD10: E78.2] Diagnosis: 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] Martita Black [employer]IGU[employer] CPT-4: 9921 3 07/18/2017 ([id number]) OFFICE/OUTPATIENT VISIT EST Diagnosis: Other intervertebral disc degeneration, 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] Diagnosis: Cervicalgia[ICD10: M54.2] Martita Black JOSÉ MIGUEL TIJERINABj [facility] CPT-4: 24067 04/24/2017 ([id number]) OFFICE/OUTPATIENT VISIT EST Diagnosis: Cervicalgia[ICD10: M54.2] Diagnosis: Other intervertebral disc degeneration, 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] Diagnosis: Mixed hyperlipidemia[ICD10: E78.2] Martita SIMONS [facility] CPT-4: 18558 01/04/2017 ([id number]) OFFICE/OUTPATIENT VISIT EST Diagnosis: Mixed hyperlipidemia[ICD10: E78.2] Diagnosis: Encounter for general adult medical examination with abnormal findings[ICD10: Z00.01] Martita SIMONS DO [employer] CPT-4: 84492 09/09/2016 ([id number]) PREV VISIT EST AGE 40-64 Diagnosis: Mixed hyperlipidemia[ICD10: E78.2] Diagnosis: Nicotine dependence, unspecified, uncomplicated[ICD10: F17.200] Diagnosis: Chronic obstructive pulmonary disease with acute lower respiratory infection[ICD10: J44.0] Diagnosis: Bilateral primary osteoarthritis of knee[ICD10: M17.0] Diagnosis: Pain in thoracic spine[ICD10: M54.6] Diagnosis: Pain in 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: M25.531] Diagnosis: Encounter for general adult medical examination with abnormal findings[ICD10: Z00.01] Martita SIMONS [employer] [facility] CPT-4: 64071 09/07/2016 ([id number]) OFFICE/OUTPATIENT VISIT EST Diagnosis: Mixed hyperlipidemia[ICD10: E78.2] Martita RENTERIA LUVHANSohail SIMONS [employer] CPT-4: 56764 09/15/2015 ([id number]) OFFICE/OUTPATIENT VISIT EST Diagnosis: Acute bronchitis, unspecified[ICD10: J20.9] Diagnosis: Chronic obstructive pulmonary disease with acute lower respiratory infection[ICD10: J44.0] Diagnosis: Lumbago with sciatica, right side[ICD10: M54.41] Martita SIMONS [facility] CPT-4: 83415 08/31/2015 ([id number]) OFFICE/OUTPATIENT VISIT EST Diagnosis: HYPERLIPIDEMIA NEC/NOS[ICD9: 272.4] Diagnosis: TOBACCO USE DISORDER[ICD9: 305.1] Diagnosis: Osteoarthritis, knee[ICD9: 715.96] Diagnosis: Chronic back pain[ICD9: 724.5] Martita SIMONS [facility] CPT-4: 84085 04/14/2015 ([id number]) OFFICE/OUTPATIENT VISIT EST Diagnosis: HYPERLIPIDEMIA NEC/NOS[ICD9: 272.4] Diagnosis: COPD[ICD9: 496] Diagnosis: ROUTINE MEDICAL EXAM[ICD9: V70.0] Martita SIMONS DO [employer] CPT-4: 08948 11/10/2014 ([id number]) OFFICE/OUTPATIENT VISIT EST Diagnosis: Wrist pain[ICD9: 719.43] Diagnosis: Knee osteoarthritis[ICD9: 715.96] Diagnosis: Chronic back pain[ICD9: 724.5] Martita SIMONS DO [employer] CPT-4: 01972 10/07/2014 ([id number]) OFFICE/OUTPATIENT VISIT EST Diagnosis: HYPERLIPIDEMIA NEC/NOS[ICD9: 272.4] Diagnosis: Chronic back pain[ICD9: 724.5] Diagnosis: OSTEOARTH NOS-L/LEG[ICD9: 715.96] Martita SIMONS [facility] CPT-4: 25136 05/01/2014 ([id number]) OFFICE/OUTPATIENT VISIT EST Diagnosis: HYPERLIPIDEMIA NEC/NOS[ICD9: 272.4] Martita SIMONS DO [employer] CPT-4: 96114 04/29/2014 ([id number]) OFFICE/OUTPATIENT VISIT EST Diagnosis: ROUTINE MEDICAL EXAM[ICD9: V70.0] Diagnosis: HYPERLIPIDEMIA NEC/NOS[ICD9: 272.4] Martita SIMONS DO [employer] CPT-4: 81816 12/18/2013 OFFICE/OUTPATIENT VISIT EST Diagnosis: HYPERLIPIDEMIA NEC/NOS[ICD9: 272.4] Diagnosis: COPD[ICD9: 496] Diagnosis: Knee pain[ICD9: 719.46] Diagnosis: Wrist pain[ICD9: 719.43] Martita ROMERO [facility] CPT-4: 89973 12/17/2013 OFFICE/OUTPATIENT VISIT EST Diagnosis: COPD W/ ACUTE EXACERB[ICD9: 491.21] Diagnosis: COUGH[ICD9: 786.2] Martita SIMONS DO [employer] CPT-4: 29258 12/11/2012 ([id number]) OFFICE/OUTPATIENT VISIT EST Diagnosis: BRONCHITIS, ACUTE[ICD9: 466.0] Diagnosis: COPD exacerbation[ICD9: 491.21] Martita José Miguelfelix MCGOVERN Sofia SIMONS [employer] [facility] CPT-4: 57653 12/04/2012 ([id number]) OFFICE/OUTPATIENT VISIT EST Diagnosis: DERMATITIS NOS[ICD9: 692.9] Diagnosis: TOBACCO USE DISORDER[ICD9: 305.1] Martita Lam Sofia SIMONS [facility] CPT-4: 50634 08/14/2012 ([id number]) OFFICE/OUTPATIENT VISIT EST Diagnosis: TOBACCO USE DISORDER[ICD9: 305.1] Diagnosis: PAIN, LOWER BACK[ICD9: 724.2] Diagnosis: PAIN IN THORACIC SPINE[ICD9: 724.1] Diagnosis: DERMATITIS NOS[ICD9: 692.9] Diagnosis: HYPERLIPIDEMIA NEC/NOS[ICD9: 272.4] Martita MOROCHO SSohail [employer]IGUEL[employer]BMedical CPT-4: 46352 07/17/2012 ([id number]) OFFICE/OUTPATIENT VISIT EST Diagnosis: HYPERLIPIDEMIA NEC/NOS[ICD9: 272.4] Diagnosis: OSTEOARTH NOS-L/LEG[ICD9: 715.96] Diagnosis: JOINT PAIN-L/LEG[ICD9: 719.46] Diagnosis: AC EMBL SUPRFCL UP EXT[ICD9: 453.81] Martita FISCHER SSohail [employer] CPT-4: 88821 03/20/2012 ([id number]) OFFICE/OUTPATIENT VISIT EST Diagnosis: PAIN, LOWER BACK[ICD9: 724.2] Diagnosis: Superficial venous thrombosis of arm[ICD9: 453.81] Diagnosis: Trigger finger, left[ICD9: 727.03] Martita RENTERIA SSohail SIMONS [facility] CPT-4: 14992 12/08/2011 OFFICE/OUTPATIENT VISIT EST Diagnosis: Knee pain[ICD9: 719.46] Diagnosis: Knee osteoarthritis[ICD9: 715.96] Diagnosis: Thoracic back pain[ICD9: 724.1] Diagnosis: HYPERLIPIDEMIA NEC/NOS[ICD9: 272.4] Martita MOROCHO S. [employer] CPT-4: 81001 08/11/2011 ([id number]) OFFICE/OUTPATIENT VISIT, NEW Martita SIMONS DO [employer] CPT-4: 44573 05/26/2010 Plan of Care Planned Activity Notes [...] : R51 07/01/2019 Appointment: Martita Simons WPtel: [address] [place], [place] [phone] MEDICATION REVIEW 07/01/2019 Visit Diagnosis Plan: Atherosclerotic he art disease of [place] coronary artery without angina pectoris Discussion: Discussed [...] E78.2 03/27/2019 Appointment: Martita Simons WPtel: [address] [place], [place] [phone] MEDICATION REVIEW 03/27/2019 Visit Diagnosis Plan: Other intervertebral disc degene ration, lumbar region Discussion: Stable on hydrocodone UDS done Follow Up: 3 months ICD-9 : 722.52 ICD-10 : M51.36 12/25/2018 Visit Diagnosis Plan: Atherosclerotic he art disease of [place] coronary artery without angina pectoris Discussion: Smoking Cessation Continue c urrent meds and fwup with cardiology ICD-9 : 414.00 ICD-10 : I25.10 12/25/2018 Appointment: Martita Simons WPtel: [address] [place], [place] [phone] MEDICATION REVIEW 12/25/2018 Appointment: Martita Simons WPtel: [address] [place], [place] [phone] OFFICE SURGERY 08/22/2018 Visit Diagnosis Plan: Pain in thoracic spine Discussio n: Towel and band stretches Topical biofreeze See chiropractor ICD-9 : 724.1 ICD-10 : M54.6 06/19/2018 Visit Diagnosis Plan: Other fatigue Discussion: Check CBC, TSH, Free T4 ICD-9 : 780.79 ICD-10 : R53.83 06/19/2018 Visit Diagnosis Plan: Primary osteoarthritis, right wr ist Discussion: Stable ICD-9 : 715.93 ICD-10 : M19.031 06/19/2018 Visit Diagnosis Plan: Mixed hyperlipidemia Discussion: Check CMP, lipids Follow Up: 3 months ICD-9 : 272.4 ICD-10 : E78.2 06/19/2018 Appointment: Martita Simons WPtel: [address] [place], [place] [phone] MEDICATION REVIEW 06/19/2018 Appointment: Martita Simons WPtel: [address] [place], [place] [id number] [place] CANCELED 06/05/2018 Appointment: Martita Simons WPtel: [address] [place], [place] [phone] [place] CANCELED 05/08/2018 Visit Diagnosis Plan: Pain [...] ICD-10 : M25.562 03/02/2018 Appointment: Marian Juares [address] [place] [address] MEDICATION REVIEW 03/02/2018 Patient Education: Patient Medication Summary Completed 03/02/2018 Appointment: Martita Simonstel: [address] [place] [address] 02/01/2018 Patient Education: Patient Medication Summary Completed 02/01/2018 Visit Diagnosis Plan: Other synovitis and tenosynoviti s, right hand Discussion: Right wrist cleansed with alcohol and betadine and injected laterally with 1cc 1% lidocaine with 20mg kenalog and 2mg dexamethasone, tolerated well with no complications, neosporin and bandage applied ICD-9 : 727.05 ICD-10 : M65.841 08/31/2017 Appointment: Martita Simonstel: [address] [place] [address] ACUTE ILLNESS 08/31/2017 Patient Education: Patient Medication Summary Completed 08/31/2017 Appointment: Martita Simonstel: [address] [place] [address] LAB 08/01/2017 Patient Education: Patient Medication Summary [...] 272.4 ICD-10 : E78.2 07/18/2017 Appointment: Martita [facility]onsl[facility] [phone] [facility] [place] MEDICATION REVIEW 07/18/2017 Patient Education: Patient Medication Summary Completed 07/18/2017 Visit Diagnosis Plan: Other intervertebral disc degene ration, lumbar region Discussion: Add PT For lumbar spine ICD-9 : 722.52 ICD-10 : M51.36 04/24/2017 Visit Diagnosis Plan: Cervicalgia Discussion: Continue PT then fwup after done with PT ICD-9 : 723.1 ICD-10 : M54.2 04/24/2017 Appointment: Martita Simons [facility]Ptel[facility] [phone] [facility] [place] MEDICATION REVIEW 04/24/2017 Patient Education: Patient Medication Summary Completed 04/24/2017 Patient Education: Patient Medication Summary Completed 03/22/2017 Care Plan: MRI NECK SPINE W/O DYE LOINC : 67383-2 Pending 03/22/2017 Visit Diagnosis Plan: Mixed hyperlipidemia [...] : M54.2 01/04/2017 Appointment: Martita Simons [facility]Ptel[facility] [phone] [facility] / lm` 01/03-Confirmed MEDICATION REVIEW 01/04/2017 Patient Education: Patient Medication Summary Completed 01/04/2017 Visit Diagnosis Plan: Mixed hyperlipidemia Discussion: Lab discussed Restart lipitor/lifestyle change ICD-9 : 272.4 ICD-10 : E78.2 09/12/2016 Visit Diagnosis Plan: Other enthesopathies, not elsewh ere classified Discussion: Right wrist injection as above ICD-9 : 727.05 ICD-10 : M77.8 09/12/2016 Appointment: Martita Simons WPtel: [address] [place], [place] [id number] [place] 09/12 confirmed `sl INJECTION 09/12/2016 Patient Education: Patient Medication Summary Completed 09/12/2016 Appointment: Martita Simons WPtel: [address] [place], [place] [id number] [place] LAB 09/09/2016 Patient Education: Patient Medication Summary Completed 09/09/2016 Visit Diagnosis Plan: Pain in right wrist Discussion: Will return for wrist injection ICD-9 : 719.43 ICD-10 : M25.531 09/07/2016 Visit Diagnosis Plan: Chronic obstructiv e pulmonary disease with acute lower respiratory infection Discussion: Smoking Cessation Symbicort Check CXR ICD-9 : 496 ICD-10 : J44.0 09/07/2016 Visit Diagnosis Plan: Encounter for gene [facility] adult medical examination with abnormal findings Discussion: Update fasting lab Follow Up: 4 months ICD-9 : V70.0 ICD-10 : Z00.01 09/07/2016 Visit Diagnosis Plan: Mixed hyperlipidemia Discussion: Check CMP, Lipids ICD-9 : 272.4 ICD-10 : E78.2 09/07/2016 Visit Diagnosis Plan: Nicotine dependence, unspecified , uncomplicated Discussion: Tobacco Abuse ICD-9 : 305.1 ICD-10 : F17.200 09/07/2016 Appointment: Martita Simons WPtel: [address] [place] [id number] 09/06 confirmed~sl Annual Well Visit 09/07/2016 Patient Education: Patient Medication Summary Completed 09/07/2016 Care Plan: CHEST X-RAY 2VW FRONTAL&LATL LOINC : 18397-9 Pending 09/07/2016 Visit Plan: Filled out Jeanine peña Insurance Paperwork 08/05/2016 Patient Education: Patient Medication Summary Completed 08/05/2016 Appointment: Martita Simons WPtel: [facility] [place] [facility] [place] [place] [facility]A 04/25/2016 Patient Education: Patient Medication Summary Completed 04/25/2016 Appointment: Martita Simons WPtel: [address] [place] [id number] [place] LAB 09/15/2015 Patient Education: Patient Medication Summary Completed 09/15/2015 Visit Plan: SVN with Albuterol 0.083% Q4 hrs and Q2hrs prn. Supportive care. Rest, Fluids, Tylenol/Motrin prn fever or bodyaches. Notify if worsening symptoms. Daily back stretches, moist heat, Biofreeze prn Flexeril/Prednisone Notify if low back pain persists--will need x-rays Patient seeing Chiropracter [employer] 08/31/2015 Appointment: Martita Simons WPtel: [address] [place], [place] [phone] 08/28/15 cn 08/28/15 appt confirmed cn FOLLOW UP 08/31/2015 Patient Education: Patient Medication Summary Completed 08/31/2015 Appointment: Martita Simons WPtel: [address] [place], [place] [phone] UA 07/29/2015 Visit Plan: CMP, Lipids today Patient st opped chol meds 1week ago Continue hydrocodone 04/14/2015 Appointment: Martita Simons WPtel: [address] [place], [place] [phone] FOLLOW UP 04/14/2015 Patient Education: Patient Medication Summary Completed 04/14/2015 Appointment: Martita Simonstel: [address] [place] [id number] [place] LAB 11/10/2014 Patient Education: Patient Medication Summary Completed 11/10/2014 Visit Plan: Fasting lab at end of September for Lipids/LFTs Continue hydrocodone at current dose Needs to be on low dose asprin 81mg daily With upcoming trip need to stop every 2hours and get out and stretch 10/07/2014 Appointment: Martita Simons WPtel: [address] [place], [place] [phone] [place] FOLLOW UP 10/07/2014 Patient Education: Patient Medication Summary Completed 10/07/2014 Visit Plan: Lab discussed Will keep meds the same Keep hydrocodone at current dose--discussed schedule change on May 05 05/01/2014 Appointment: Martita Simonstel: [address] [place], [place] [phone] 04/29 confirmed when in for labs; asked if he still wanted a reminder call on Monday and he said no he would be here. FOLLOW UP 05/01/2014 Patient Education: Patient Medication Summary Completed 05/01/2014 Appointment: Martita Simons WPtel: [address] [place], [place] [phone] LAB 04/29/2014 Patient Education: Patient Medication Summary Completed 04/29/2014 Appointment: Martita Simons WPtel: [address] [place], [place] [phone] LAB 12/18/2013 Patient Education: Patient Medication Summary Completed 12/18/2013 Appointment: Martita Simons WPtel: [address] [place], [place] [phone] 12/16 FOLLOW UP 12/17/2013 Patient Education: Patient Medication Summary Completed 12/17/2013 Visit Plan: Check CXR Start SVNs with al buterol 0.083% QID 12/11/2012 Appointment: Martita Simonstel: [address] [place], [place] [phone] FOLLOW UP 12/11/2012 Patient Education: Patient Medication Summary Completed 12/11/2012 Visit Plan: Zithromax for 1wk Prednisone for 1wk Symbicort 160/4.5 2p BID 12/04/2012 Appointment: Martita Simonstel: [address] [place], [place] [phone] ACUTE ILLNESS 12/04/2012 Patient Education: Patient Medication Summary Completed 12/04/2012 Visit Plan: Continue nystatin/TAC cream and add Lamisil for next month No lipitor for next month If rash persists then will need biopsy Trial of chantix--warned of suicidal ideation/depression Call in 1mo on finger lesion and chantix 08/14/2012 Appointment: Martita Simonstel: [address] [place] [phone] 08/13 no answer...08/13 pt called back and confirmed OFFICE SURGERY 08/14/2012 Patient Education: Patient Medication Summary Completed 08/14/2012 Appointment: Martita Simons WPtel: [address] [place], [place] [phone] FOLLOW UP 07/17/2012 Patient Education: Patient Medication Summary Completed 07/17/2012 Appointment: Martita Simons WPtel: [address] [place] [address] Appointment was confirmed by CN on 06/29 12/ pt called, in family, was in [place] just got yash k 07/03 - [facility] ACUTE ILLNESS 07/02/2012 Visit Plan: Obtain US results of RUE DC coumadin as has been 3mos and start Aspirin 325mg daily Check CMP, Lipids, CBC, ESR, CRP today 03/20/2012 Appointment: Martita Simonstel: [address] [place], [place] [phone] FOLLOW UP 03/20/2012 Patient Education: Patient Medication Summary Completed 03/20/2012 Appointment: Martita Simonstel: [address] [place] [address] Patient called 2 hours past appt. Said saw a specialist today and specialist is not concerned about blod clot so doesnt want to reschedule-CN FOLLOW UP 12/14/2011 Appointment: Martita Simons WPtel: [address] [place], [place] [phone] [place] FOLLOW UP 12/13/2011 Visit Plan: Continue coumadin--IM is fol lowing level--discussed will likely need 6-12wks Observe contusion to right lower back Fwup with ortho as scheduled 12/08/2011 Appointment: Martita Simons [facility]Ptel[facility] [phone] [facility] [facility] 12/08/2011 Patient Education: Patient Medication Summary Completed 12/08/2011 Visit Plan: Check fasting lab when goes for pre-op lab including CMP, CBC, Lipids, TSH, Free T4, PSA, uric acid Needs colonoscopy Hydrocodone refilled #80 to [facility] 08/11/2011 Appointment: Martita Simons WPtel: [phone] [facility] ESTABLISHED PATIENT 08/11/2011 Patient Education: Patient Medication Summary Completed 08/11/2011 Visit Plan: Obtain most recent lab resul ts Cont current meds Explained that cannot refill pain meds without current rx Discussed Synvisc injections and see ortho as oxycontin for knee arthritis is strong pain med 05/26/2010 Appointment: Martita Simons [facility]Ptel[facility] [phone] [facility] NEW [facility] 05/26/2010 Patient Education: Patient Medication Summary Completed 05/26/2010 Instructions Comment . Filled out [employer] Paperwork . SVN with Albuterol 0.083% [...]
--- OUTSIDE RECORDS SUMMARY | 2020-01-12 17:44 | XMS REPORT | CCD ---
Author Author Syd Simons D.O. Organization [facility] Address [address] [place] [address] Phone Care Team Providers Care Tar Boiler Name Role Phone Martita Simons D.O., PP Unavailable CCM Unavailable Summary Purpose Interface Exchange Insurance Providers Payer name Policy type / Coverage type Covered democrat ID Effective Begin Date Effective End Date [facility] Commercial Insurance [id number] Unknown Family history Brother Diagnosis Age At Onset No Family Disease Entered N/A Father Diagnosis Age At Onset No Family Disease Entered N/A Mother Diagnosis Age At Onset No Family Disease Entered N/A Social History Social History Element Codes Description Effective Dates Tobacco history SNOMED CT: 56005622 Current every day smoker 06/2012 Number of [...] 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: [...] hydrocodone 10 mg-acetaminophen 325 mg tablet RxNorm: 044696 1 Tablet(s) PO Q6H as needed for pain 08/26/2019 No Stop Date Active (Response to an electronic controlled substance refill request [id number]|1|0|1) hydrocodone 10 mg-acetaminophen 325 mg tablet RxNorm: 935081 1 Tablet(s) PO Q6H as needed for pain 07/25/2019 08/25/2019 Inactive (Response to an electronic controlled substance refill request - RxReferenceNumber: [id number]|1|0|1) hydrocodone 10 mg-acetaminophen 325 mg tablet RxNorm: 758624 1 Tablet(s) PO Q6H as needed for pain 06/26/2019 07/24/2019 Inactive (Response to an electronic controlled substance refill request - RxReferenceNumber: [id number]|1|0|1) hydrocodone 10 mg-acetaminophen 325 mg tablet RxNorm: 710221 1 Tablet(s) PO Q6H as needed for pain 05/28/2019 06/25/2019 Inactive (Response to an electronic controlled substance refill request - RxReferenceNumber: [id number]|1|0|1) hydrocodone 10 mg-acetaminophen 325 mg tablet RxNorm: 484637 1 Tablet(s) PO Q6H as needed for pain 02/25/2019 05/27/2019 Inactive (Response to an electronic controlled substance refill request - RxReferenceNumber: [id number]|1|0|1) hydrocodone 10 mg-acetaminophen 325 mg tablet RxNorm: 827291 1 Tablet(s) PO Q6H as needed for pain 11/26/2018 02/24/2019 Inactive (Response to an electronic controlled substance refill request - RxReferenceNumber: [id number]|1|0|1) hydrocodone 10 mg-acetaminophen 325 mg tablet RxNorm: 372262 1 Tablet(s) PO Q6H as needed for pain 10/30/2018 11/25/2018 Inactive (Response to an electronic controlled substance refill request - RxReferenceNumber: [id number]|1|0|1) hydrocodone 10 mg-acetaminophen 325 mg tablet RxNorm: 404357 1 Tablet(s) PO Q6H as needed for pain 09/26/2018 10/29/2018 Inactive (Response to an electronic controlled substance refill request - RxReferenceNumber: [id number]|1|0|1) hydrocodone 10 mg-acetaminophen 325 mg tablet RxNorm: 746182 1 Tablet(s) PO Q6H as needed for pain 08/30/2018 09/25/2018 Inactive (Response to an electronic controlled substance refill request - RxReferenceNumber: [id number]|1|0|1) hydrocodone 10 mg-acetaminophen 325 mg tablet RxNorm: 496477 1 Tablet(s) PO Q6H as needed for pain 08/01/2018 08/29/2018 Inactive (Response to an electronic controlled substance refill request - RxReferenceNumber: [id number]|1|0|1) hydrocodone 10 mg-acetaminophen 325 mg tablet RxNorm: 910443 1 Tablet(s) PO Q6H as needed for pain 07/04/2018 07/31/2018 Inactive (Response to an electronic controlled substance refill request - RxReferenceNumber: [id number]|1|0|1) hydrocodone 10 mg-acetaminophen 325 mg tablet RxNorm: 326724 1 Tablet(s) PO Q6H as needed for pain 05/31/2018 07/03/2018 Inactive (Response to an electronic controlled substance refill request - RxReferenceNumber: [id number]|1|0|1) hydrocodone 10 mg-acetaminophen 325 mg tablet RxNorm: 799890 1 Tablet(s) PO Q6H as needed for pain 05/01/2018 05/30/2018 Inactive (Response to an electronic controlled substance refill request - RxReferenceNumber: [id number]|1|0|1) hydrocodone 10 mg-acetaminophen 325 mg tablet RxNorm: 872302 1 Tablet(s) PO Q6H as needed for pain 04/03/2018 04/30/2018 Inactive (Response to an electronic controlled substance refill request - RxReferenceNumber: [id number]|1|0|1) hydrocodone 10 mg-acetaminophen 325 mg tablet RxNorm: 796070 1 Tablet(s) PO Q6H as needed for pain 02/26/2018 04/02/2018 Inactive (Response to an electronic controlled substance refill request - RxReferenceNumber: [id number]|1|0|1) clotrimazole-betamethasone 1 %-0.05 % topical cream RxNorm: 340843 TOP As Directed CALL IF NO IMPROVEMENT IN 2 WEEKS 01/30/2018 01/29/2018 Inact kole [SAVINGS FOR UNINSURED PATIENTS -- BIN:[id number], PCN: [id number], Group: [id number], ID# [id number], Process claim through [employer], for questions: . THIS IS NOT INSURANCE.] hydrocodone 10 mg-acetaminophen 325 mg tablet RxNorm: 174230 1 Tablet(s) PO Q6H as needed for pain 01/29/2018 02/25/2018 Inactive (Response to an electronic controlled substance refill request - RxReferenceNumber: [id number]|1|0|1) hydrocodone 10 mg-acetaminophen 325 mg tablet RxNorm: 496862 1 Tablet(s) PO Q6H as needed for pain 12/28/2017 01/28/2018 Inactive (Response to an electronic controlled substance refill request - RxReferenceNumber: [id number]|1|0|1) hydrocodone 10 mg-acetaminophen 325 mg tablet RxNorm: 453829 1 Tablet(s) PO Q6H as needed for pain 11/29/2017 12/27/2017 Inactive (Response to an electronic controlled substance refill request - RxReferenceNumber: [id number]|1|0|1) hydrocodone 10 mg-acetaminophen 325 mg tablet RxNorm: 353558 1 Tablet(s) PO Q6H as needed for pain 11/02/2017 11/28/2017 Inactive (Response to an electronic controlled substance refill request - RxReferenceNumber: [id number]|1|0|1) hydrocodone 10 mg-acetaminophen 325 mg tablet RxNorm: 805530 1 Tablet(s) PO Q6H as needed for pain 10/02/2017 11/01/2017 Inactive (Response to an electronic controlled substance refill request - RxReferenceNumber: [id number]|1|0|1) hydrocodone 10 mg-acetaminophen 325 mg tablet RxNorm: 322361 1 Tablet(s) PO Q6H as needed for pain 08/30/2017 10/01/2017 Inactive (Response to an electronic controlled substance refill request - RxReferenceNumber: [id number]|1|0|1) hydrocodone 10 mg-acetaminophen 325 mg tablet RxNorm: 839199 1 Tablet(s) PO Q6H as needed for pain 08/01/2017 08/29/2017 Inactive (Response to an electronic controlled substance refill request - RxReferenceNumber: [id number]|1|0|1) hydrocodone 10 mg-acetaminophen 325 mg tablet RxNorm: 910398 1 Tablet(s) PO Q6H as needed for pain 06/26/2017 07/31/2017 Inactive (Response to an electronic controlled substance refill request - RxReferenceNumber: [id number]|1|0|1) hydrocodone 10 mg-acetaminophen 325 mg tablet RxNorm: 856351 1 Tablet(s) PO Q6H as needed for pain 06/26/2017 06/30/2019 Inactive (Response to an electronic controlled substance refill request - RxReferenceNumber: [id number]|1|0|1) hydrocodone 10 mg-acetaminophen 325 mg tablet RxNorm: 907754 1 Tablet(s) PO Q6H as needed for pain 03/27/2017 06/25/2017 Inactive (Response to an electronic controlled substance refill request - RxReferenceNumber: [id number]|[id number]|1|0|1) hydrocodone 10 mg-acetaminophen 325 mg tablet RxNorm: 436459 1 Tablet(s) PO Q6H as needed for pain 02/23/2017 03/26/2017 Inactive (Response to an electronic controlled substance refill request - RxReferenceNumber: [id number]|1|0|1) hydrocodone 10 mg-acetaminophen 325 mg tablet RxNorm: 465404 1 Tablet(s) PO Q6H as needed for pain 01/24/2017 02/22/2017 Inactive (Response to an electronic controlled substance refill request - RxReferenceNumber: [id number]|1|0|1) hydrocodone 10 mg-acetaminophen 325 mg tablet RxNorm: 219102 1 Tablet(s) PO Q6H as needed for pain 12/27/2016 06/30/2019 Inactive (Response to an electronic controlled substance refill request - RxReferenceNumber: [id number]|1|0|1) hydrocodone 10 mg-acetaminophen 325 mg tablet RxNorm: 493235 1 Tablet(s) PO Q6H as needed for pain 12/27/2016 01/23/2017 Inactive (Response to an electronic controlled substance refill request - RxReferenceNumber: [id number]|1|0|1) hydrocodone 10 mg-acetaminophen 325 mg tablet RxNorm: 544904 1 Tablet(s) PO Q6H as needed for pain 11/23/2016 12/26/2016 Inactive (Response to an electronic controlled substance refill request - RxReferenceNumber: [id number]|1|0|1) hydrocodone 10 mg-acetaminophen 325 mg tablet RxNorm: 733994 1 Tablet(s) PO Q6H as needed for pain 10/20/2016 11/22/2016 Inactive (Response to an electronic controlled substance refill request - RxReferenceNumber: [id number]|1|0|1) hydrocodone 10 mg-acetaminophen 325 mg tablet RxNorm: 796270 1 Tablet(s) PO Q6H as needed for pain 09/26/2016 10/19/2016 Inactive (Response to an electronic controlled substance refill request - RxReferenceNumber: [id number]|1|0|1) hydrocodone 10 mg-acetaminophen 325 mg tablet RxNorm: 383463 1 Tablet(s) PO Q6H as needed for pain 07/27/2016 09/25/2016 Inactive (Response to an electronic controlled substance refill request - RxReferenceNumber: [id number]|1|0|1) hydrocodone 10 mg-acetaminophen 325 mg tablet RxNorm: 881685 1 Tablet(s) PO Q6H as needed for pain 05/04/2016 07/26/2016 Inactive (Response to an electronic controlled substance refill request - RxReferenceNumber: [id number]|[id number]|1|0|1) hydrocodone 10 mg-acetaminophen 325 mg tablet RxNorm: 657446 1 Tablet(s) PO Q6H as needed for pain 03/31/2016 05/03/2016 Inactive (Response to an electronic controlled substance refill request - RxReferenceNumber: [id number]|1|0|1) citalopram 10 mg tablet RxNorm: 153267 1 Tablet(s) PO QD 09/28/2015 0 09/27/2015 Inactive citalopram 10 mg tablet RxNorm: 573388 1 Tablet(s) PO QD 09/28/2015 0 09/06/2016 Inactive Wellbutrin SR 150 mg tablet,sustained-release RxNorm: 951932 1 Tablet(s) PO QAM 09/25/2015 09/06/2016 Inactive prednisone 20 mg tablet RxNorm: 368485 1 Tablet(s) PO T ID for 3 days then 1 po BID for 3 days then one daily for 3 days 08/31/2015 09/06/2016 Inactiv e cyclobenzaprine 10 mg tablet RxNorm: 819074 1 Tablet(s) PO TID as needed for muscle spasm 08/31/2015 07/17/2017 Inactive hydrocodone 10 mg-acetaminophen 325 mg tablet RxNorm: 680465 1 Tablet(s) PO Q6H as needed for pain 08/26/2015 03/30/2016 Inactive (Response to an electronic controlled substance refill request - RxReferenceNumber: [id number]|1|0|1) hydrocodone 10 mg-acetaminophen 325 mg tablet RxNorm: 657789 1 Tablet(s) PO Q6H as needed for pain 07/28/2015 08/25/2015 Inactive (Response to an electronic controlled substance refill request - RxReferenceNumber: [id number]|1|0|1) hydrocodone 10 mg-acetaminophen 325 mg tablet RxNorm: 955957 1 Tablet(s) PO Q6H as needed for pain 06/23/2015 07/27/2015 Inactive (Response to an electronic controlled substance refill request - RxReferenceNumber: [id number]|1|0|1) hydrocodone 10 mg-acetaminophen 325 mg tablet RxNorm: 260344 1 Tablet(s) PO Q6H as needed for pain 05/21/2015 06/22/2015 Inactive (Response to an electronic controlled substance refill request - RxReferenceNumber: [id number]|1|0|1) azithromycin 250 mg tablet RxNorm: 391247 2 Tablet(s) P O on day one, then one tablet on days 2 - 5 04/27/2015 08/30/2015 Inactive hydrocodone 10 mg-acetaminophen 325 mg tablet RxNorm: 515925 1 Tablet(s) PO Q6H as needed for pain 03/25/2015 05/20/2015 Inactive (Response to an electronic controlled substance refill request - RxReferenceNumber: [id number]|1|0|1) hydrocodone 10 mg-acetaminophen 325 mg tablet RxNorm: 135551 1 Tablet(s) PO Q6H as needed for pain 02/24/2015 03/24/2015 Inactive (Response to an electronic controlled substance refill request - RxReferenceNumber: [id number]|1|0|1) hydrocodone 10 mg-acetaminophen 325 mg tablet RxNorm: 285912 1 Tablet(s) PO Q6H as needed for pain 01/23/2015 02/23/2015 Inactive (Response to an electronic controlled substance refill request - RxReferenceNumber: [id number]|1|0|1) hydrocodone 10 mg-acetaminophen 325 mg tablet RxNorm: 215458 1 Tablet(s) PO Q6H as needed for pain 12/23/2014 01/22/2015 Inactive (Response to an electronic controlled substance refill request - RxReferenceNumber: [id number]|1|0|1) hydrocodone 10 mg-acetaminophen 325 mg tablet RxNorm: 455861 1 Tablet(s) PO Q6H as needed for pain 11/24/2014 12/22/2014 Inactive (Response to an electronic controlled substance refill request - RxReferenceNumber: [id number]|1|0|1) hydrocodone 10 mg-acetaminophen 325 mg tablet RxNorm: 119206 1 Tablet(s) PO Q6H as needed for pain 10/28/2014 11/23/2014 Inactive (Response to an electronic controlled substance refill request - RxReferenceNumber: [id number]|1|0|1) hydrocodone 10 mg-acetaminophen 325 mg tablet RxNorm: 524015 1 Tablet(s) PO Q6H as needed for pain 09/25/2014 10/27/2014 Inactive (Response to an electronic controlled substance refill request - RxReferenceNumber: [id number]|1|0|1) Lipitor 80 mg tablet RxNorm: 542084 1 Tablet(s) PO QHS 09/24/2014 Inactive hydrocodone 10 mg-acetaminophen 325 mg tablet RxNorm: 699414 1 Tablet(s) PO Q6H as needed for pain 07/30/2014 09/24/2014 Inactive (Response to an electronic controlled substance refill request - RxReferenceNumber: [id number]|1|0|1) hydrocodone 10 mg-acetaminophen 325 mg tablet RxNorm: 779333 1 Tablet(s) PO Q6H as needed for pain 05/27/2014 07/29/2014 Inactive (Response to an electronic controlled substance refill request - RxReferenceNumber: [id number]|1|0|1) clotrimazole-betamethasone 1 %-0.05 % topical cream RxNorm: 809823 TOP As Directed 05/01/2014 08/30/2015 Inactive [SAVINGS FOR UNI NSURED PATIENTS -- BIN:[id number], PCN: [id number], Group: [id number], ID# [id number], Process claim through [employer], for questions: . THIS IS NOT INSURANCE.] Lipitor 80 mg tablet RxNorm: 886193 1 Tablet(s) PO QHS 04/28/2014 Inactive hydrocodone 10 mg-acetaminophen 325 mg tablet RxNorm: 657957 1 Tablet(s) PO Q6H as needed for pain 04/28/2014 05/26/2014 Inactive (Response to an electronic controlled substance refill request - RxReferenceNumber: [id number]|1|0|1) hydrocodone 10 mg-acetaminophen 325 mg tablet RxNorm: 930046 1 Tablet(s) PO Q6H as needed for pain 03/27/2014 04/27/2014 Inactive (Response to an electronic controlled substance refill request - RxReferenceNumber: [id number]|1|0|1) hydrocodone 10 mg-acetaminophen 325 mg tablet RxNorm: 820967 1 Tablet(s) PO Q6H as needed for pain 12/20/2013 12/20/2013 Inactive (Appended: Co ntrolled substance eRx refill - RxReferenceNumber: [id number]|1|0|1) hydrocodone 10 mg-acetaminophen 325 mg tablet RxNorm: 690857 TAKE 1 TABLET BY MOUTH EVERY 6 HOURS NEEDED FOR PAIN 12/20/2013 01/12/2014 Inactive (Response to an electronic controlled substance refill request - RxReferenceNumber: [id number]|1|0|1) hydrocodone 10 mg-acetaminophen 325 mg tablet RxNorm: 454649 1 Tablet(s) PO Q6H as needed for pain 09/03/2013 12/19/2013 Inactive (Appended: Co ntrolled substance eRx refill - RxReferenceNumber: [id number]|1|0|1) hydrocodone 10 mg-acetaminophen 325 mg tablet RxNorm: 460243 Tablet(s) PO TAKE 1 TABLET BY MOUTH EVERY 6 HOURS NEEDED FOR PAIN 08/08/2013 09/03/2013 Inactive (Appended: Controlled substance eRx refill - RxReferenceNumber: [id number]|1|0|1) hydrocodone 10 mg-acetaminophen 325 mg tablet RxNorm: 299360 Tablet(s) PO TAKE 1 TABLET BY MOUTH EVERY 6 HOURS NEEDED FOR PAIN 07/11/2013 08/07/2013 Inactive (Appended: Controlled substance eRx refill - RxReferenceNumber: [id number]|1|0|1) hydrocodone 10 mg-acetaminophen 325 mg tablet RxNorm: 841169 2 Tablet(s) PO TAKE 1 TABLET BY MOUTH EVERY 6 HOURS NEEDED FOR PAIN 06/12/2013 3 Inactive (Appended: Controlled substance eRx ref ill - RxReferenceNumber: [id number]|1|0|1) hydrocodone 10 mg-acetaminophen 325 mg tablet RxNorm: 785027 2 1 Tablet(s) PO Q6H NEEDED FOR PAIN 05/15/2013 06/12/2013 Inactive (Appended: Co ntrolled substance eRx refill - RxReferenceNumber: [id number]|1|0|1) hydrocodone 10 mg-acetaminophen 325 mg tablet RxNorm: 438038 2 Tablet(s) PO TAKE 1 TO 2 TABLETS BY MOUTH EVERY 6 HOURS NEEDED FOR PAIN 04/18/2013 No Stop Date Active (Appended: Controlled substa nce eRx refill - RxReferenceNumber: [id number]|1|0|1) hydrocodone 10 mg-acetaminophen 325 mg tablet RxNorm: 741918 2 Tablet(s) PO TAKE 1 TO 2 TABLETS BY MOUTH EVERY 6 HOURS NEEDED FOR PAIN 03/19/2013 No Stop Date Active (Appended: Controlled substa nce eRx refill - RxReferenceNumber: [id number]|1|0|1) hydrocodone 10 mg-acetaminophen 325 mg tablet RxNorm: 030861 2 Tablet(s) PO TAKE 1 TO 2 TABLETS BY MOUTH EVERY 6 HOURS NEEDED FOR PAIN 02/06/2013 Inactive (Appended: Controlled substance eRx refi ll - RxReferenceNumber: [id number]|1|0|1) hydrocodone 10 mg-acetaminophen 325 mg tablet RxNorm: 061456 2 Tablet(s) PO TAKE 1 TO 2 TABLETS BY MOUTH EVERY 6 HOURS NEEDED FOR PAIN 01/08/201304/2013 Inactive (Appended: Controlled substance eRx ref ill - RxReferenceNumber: [id number]|1|0|1) Zithromax 250 mg tablet RxNorm: 184947 2 Tablet(s) PO QD 12/04/2012 0 12/10/2012 Inactive prednisone 20 mg tablet RxNorm: 063095 1 Tablet(s) PO BID 12/04/2012 12/10/2012 Inactive atorvastatin 40 mg tablet RxNorm: 870161 1 Tablet(s) PO QD 11/09/19 13 12/17/2013 Inactive hydrocodone 10 mg-acetaminophen 325 mg tablet RxNorm: 626535 2 Tablet(s) PO TAKE 1 TO 2 TABLETS BY MOUTH EVERY 6 HOURS NEEDED FOR PAIN 10/18/201205/2013 Inactive (Appended: Controlled substance eRx ref ill - RxReferenceNumber: [id number]|1|0|1) hydrocodone 10 mg-acetaminophen 325 mg tablet RxNorm: 043678 2 1-2 Tablet(s) PO Q6H as needed for pain 09/06/2012 10/18/2012 Inactive Lamisil 250 mg tablet RxNorm: 074755 1 Tablet(s) PO QD 08/14/2012 Inactive atorvastatin 40 mg tablet RxNorm: 132017 1 Tablet(s) PO QD 08/08/19 13 11/05/2012 Inactive prednisone 20 mg tablet RxNorm: 951966 1 Tablet(s) PO BID 07/17/2012 07/23/2012 Inactive Wellbutrin SR 150 mg tablet,extended release RxNorm: 091974 1 T ablet(s) PO BID 07/17/2012 08/13/2012 Inactive meloxicam 15 mg tablet RxNorm: 244323 1 Tablet(s) PO QD for pain 07/16/2012 Inactive atorvastatin 40 mg tablet RxNorm: 660957 1 Tablet(s) PO QD 06/27/20 12 08/07/2012 Inactive hydrocodone-acetaminophen 10 mg-325 mg tablet RxNorm: 272891 2 1-2 Tablet(s) PO Q6H as needed for pain 05/23/2012 No Stop Date Active hydrocodone-acetaminophen 10 mg-325 mg tablet RxNorm: 125802 2 1-2 Tablet(s) PO Q6H as needed for pain 04/24/2012 No Stop Date Active hydrocodone-acetaminophen 10 mg-325 mg tablet RxNorm: 619264 2 1-2 Tablet(s) PO Q6H as needed for pain 02/08/2012 No Stop Date Active hydrocodone-acetaminophen 10 mg-325 mg Tab RxNorm: 7991046 1-2 Tablet(s) PO Q6H as needed for pain 01/02/2012 No Stop Date Active hydrocodone-acetaminophen 10 mg-325 mg Tab RxNorm: 6815288 1-2 Tablet(s) PO Q6H as needed for pain 11/29/2011 No Stop Date Active hydrocodone-acetaminophen 10 mg-325 mg Tab RxNorm: 3611678 1-2 Tablet(s) PO Q6H as needed for pain 10/24/2011 No Stop Date Active hydrocodone-acetaminophen 10 mg-325 mg Tab RxNorm: 6374862 1-2 Tablet(s) PO Q6H as needed for pain 10/07/2011 No Stop Date Active simvastatin 40 mg Tab RxNorm: 481087 1 Tablet(s) PO QHS 08/11/2011 Inactive clopidogrel 75 mg tablet RxNorm: 374296 1 Tablet(s) PO QD No Start Da te Active metoprolol succinate ER 25 mg tablet,extended release 24 hr RxNorm: 374145 1 Tablet(s) PO QD No Start Date Active Symbicort 160 mcg-4.5 mcg/actuation HFA aerosol inhaler RxNo rm: 3140139 2 INH QD No Start Date Active atorvastatin 40 mg tablet RxNorm: 436754 1 Tablet(s) PO QD No Start D ate Active aspirin 81 mg tablet RxNorm: 380559 1 Tablet(s) PO QD No Start Date Active Vitamin D3 2,000 unit tablet RxNorm: 676634 3 Tablet(s) PO No Start D ate Active lisinopril 5 mg tablet RxNorm: 386548 1 Tablet(s) PO QD No Start Date Active hydrocodone-acetaminophen 10 mg-325 mg Tab RxNorm: 0765056 1-2 Tablet(s) PO Q6H as needed for pain No Start Date 10/06/2011 Inactive Wellbutrin SR 150 mg tablet,sustained-release RxNorm: 639644 1 Tablet(s) PO QAM No Start Date 09/24/2015 Inactive OxyContin 15 mg 12 hr Tab RxNorm: 1791370 1 Tablet(s) PO BID No Sta rt Date 08/10/2011 Inactive warfarin 5 mg Tab RxNorm: 311500 1 Tablet(s) PO QD No Start Date 03/01 Inactive albuterol sulfate 1.25 mg/3 mL Neb Solution RxNorm: 600472 1 Unit Dose INH prn wheezing, congestion, shortness of breath No Start Date 04/30/2014 Inacti ve azithromycin 250 mg tablet RxNorm: 649942 2 Tablet(s) P O on day one, then one tablet on days 2 - 5 No Start Date 04/26/2015 Inactive warfarin 10 mg Tab RxNorm: 534625 1 Tablet(s) PO QOD No Start Date Inactive Symbicort Inhl RxNorm: Inhalation No Start Date 12/16/2013 Inactive Trilipix 135 mg Cap RxNorm: 020084 1 Capsule(s) PO QD No Start Date 0 12/07/2011 Inactive Chantix Starting Month Box 0.5 mg (11)-1 mg (42) table ts in dose pack RxNorm: 796614 Tablet(s) PO as directed No Start Date 12/03/2012 Inactive clotrimazole-betamethasone 1 %-0.05 % topical cream RxNorm: 700468 TOP As Directed No Start Date 04/30/2014 Inactive nystatin-triamcinolone 100,000 unit/g-0.1 % Topical Cream Rx Norm: 3927350 Application TOP BID for 2-4weeks No Start Date 12/03/2012 Inactive Lovastatin 20 mg Tab RxNorm: 526520 1 Tablet(s) PO QHS No Start Date 08/10/2011 Inactive krill oil oral RxNorm: 50561 oral No Start Date 06/30/2019 Inacti ve warfarin 7.5 mg Tab RxNorm: 218663 1 Tablet(s) PO QOD No Start Date 1 09/16/2011 Inactive Lipitor 80 mg tablet RxNorm: 418440 1 Tablet(s) PO QHS No Start Date 04/27/2014 Inactive simvastatin 40 mg Tab RxNorm: 808175 1 Tablet(s) PO QHS No Start Da te 08/10/2011 Inactive Gemfibrozil 600 mg Tab RxNorm: 608885 1 Tablet(s) PO QHS No Start D ate 08/10/2011 Inactive Medication Administered No Medication Administered data Immunizations No Immunization data Results Observation Observation Code Item Item Code Result Date [facility] Location COMPLETE BLOOD COUNT [id number] WBC 9.7 10e9/L 06/19/20 18 Unknown COMPLETE BLOOD COUNT [id number] RBC 5.35 10e12/L 2017 Unknown COMPLETE BLOOD COUNT [id number] HEMOGLOBIN 17.1 g/dL 06/19/20 18 Unknown COMPLETE BLOOD COUNT [id number] HEMATOCRIT 52.4 % 06/19/20 18 Unknown COMPLETE BLOOD COUNT [id number] MCV 97.9 fL 8 Unknown COMPLETE BLOOD COUNT [id number] MCH 32.0 pg 8 Unknown COMPLETE BLOOD COUNT [id number] MCHC 32.6 g/dL 8 Unknown COMPLETE BLOOD COUNT [id number] PLATELET COUNT 257 10e9/L Unknown COMPLETE BLOOD COUNT [id number] Mean Plt Volume 11.2 fL Unknown COMPLETE BLOOD COUNT [id number] Neut Auto 54.6 % 8 Unknown COMPLETE BLOOD COUNT [id number] Lymph Auto 33.3 % 06/19/20 18 Unknown COMPLETE BLOOD COUNT [id number] [employer] 9.1 % 8 Unknown COMPLETE BLOOD COUNT [id number] RDW 14.4 % 8 Unknown COMPLETE BLOOD COUNT [id number] Eos Auto 2.6 % 8 Unknown COMPLETE BLOOD COUNT [id number] Baso Auto 0.4 % 8 Unknown COMPLETE BLOOD COUNT [id number] Neutrophil Abs 5.30 10e9/L Unknown COMPLETE BLOOD COUNT [id number] Lymphocyte Abs 3.23 10e9/L Unknown COMPLETE BLOOD COUNT [id number] Monocyte Abs 0.88 10e9/L 06/01 Unknown COMPLETE BLOOD COUNT [id number] Eosinophil Abs 0.25 10e9/L Unknown COMPLETE BLOOD COUNT [id number] RDW-SD 51.8 fL 8 Unknown COMPLETE BLOOD COUNT [id number] Basophil Abs 0.04 10e9/L 06/01 Unknown [facility] 78426 Cholesterol 222 mg/dL 06/19/2018 Unkno wn LIP[facility] 46792 Triglyceride 111 mg/dL 06/19/2018 Unkn own L[facility] 93515 HDL CHOLESTEROL 37 mg/dL 06/19/2018 U nknown L[facility] GROUP 87544 Chol/HDL Ratio 6.00 ratio 06/19/2018 U nknown LIPID GROUP 28218 NON-HDL Chol 185 mg/dL 06/19/2018 Unkn own LIP[facility] GROUP 62274 LDL Cholesterol 163 mg/dL 06/19/2018 U nknown VITAMIN B 12 58875 VITAMIN B12 532 pg/mL 06/19/2018 Unkn own THYROID STIMULATING HORMONE 42221 TSH 2.685 uIU/mL 06/19/2018 Unknown COMPREHENSIVE METABOLIC 32625 AST 15 U/L 2017 Unknown COMPREHENSIVE METABOLIC 20001 ALT 21 U/L 2017 Unknown COMPREHENSIVE METABOLIC 33537 BUN 16 mg/dL 2017 Unknown COMPREHENSIVE METABOLIC 91879 ALBUMIN 4.1 g/dL 2017 Unknown COMPREHENSIVE METABOLIC 66092 CHLORIDE 99 mmol/L 2017 Unknown COMPREHENSIVE METABOLIC 64585 Bili Total 0.4 mg/dL 06/19 Unknown COMPREHENSIVE METABOLIC 68195 ALK PHOS 43 U/L 2017 Unknown COMPREHENSIVE METABOLIC 51885 SODIUM 136 mmol/L 06/19 Unknown COMPREHENSIVE METABOLIC 27808 CREATININE 0.82 mg/dL 06/01 Unknown COMPREHENSIVE METABOLIC 11928 CALCIUM 9.5 mg/dL 2017 Unknown COMPREHENSIVE METABOLIC 79376 POTASSIUM 5.2 mmol/L 06/19 Unknown COMPREHENSIVE METABOLIC 53660 Total Protein 6.7 g/dL Unknown COMPREHENSIVE METABOLIC 31529 Glucose 81 mg/dL 2017 Unknown COMPREHENSIVE METABOLIC 81521 Bicarbonate 30 mmol/L 06/01 Unknown COMPREHENSIVE METABOLIC 48592 AGAP 7 mmol/L 2017 Unknown FREE T4 24232 T4 Free 0.85 ng/dL 06/19/2018 Unknown GFR CALC 4424102 GFR Afr Amr >60 mL/min 06/19/2018 Unknow n GFR CALC 1463405 GFR Non Afr Amr >60 mL/min 06/19/2018 Un known VITAMIN D TOTAL (25 HYDROXY) 40793 Vitamin D 25 OH 24.1 ng/mL 06/19/2018 Unknown PSA EQUIMOLAR TROY 86482 PSA Total 0.88 ng/mL 8 Unknown GFR CALC 3858883 GFR Non Afr Amr >60 mL/min 09/09/2016 Un known GFR CALC 0025604 GFR Afr Amr >60 mL/min 09/09/2016 Unknow n COMPLETE BLOOD COUNT 1844747 WBC 11.7 10e9/L 017 Unknown COMPLETE BLOOD COUNT [id number] RBC 5.54 10e12/L 2016 Unknown COMPLETE BLOOD COUNT 2350851 HEMOGLOBIN 17.6 g/dL 09/09/19 17 Unknown COMPLETE BLOOD COUNT [id number] HEMATOCRIT 52.3 % 09/09/19 17 Unknown COMPLETE BLOOD COUNT 9755703 MCV 94.4 fL 7 Unknown COMPLETE BLOOD COUNT 6198783 MCH 31.8 pg 7 Unknown COMPLETE BLOOD COUNT 3154968 MCHC 33.7 g/dL 7 Unknown COMPLETE BLOOD COUNT 2111248 PLATELET COUNT 259 10e9/L 04/2017 Unknown COMPLETE BLOOD COUNT 1457013 Mean Plt Volume 11.2 fL 04/2017 Unknown COMPLETE BLOOD COUNT 4187851 Neut Auto 53.6 % 7 Unknown COMPLETE BLOOD COUNT 6406463 Lymph Auto 36.2 % 09/09/19 17 Unknown COMPLETE BLOOD COUNT 7128206 [place] [employer] 7.9 % 7 Unknown COMPLETE BLOOD COUNT 5306147 RDW 14.2 % 7 Unknown COMPLETE BLOOD COUNT 3505301 Eos Auto 2.1 % 7 Unknown COMPLETE BLOOD COUNT 4983221 Baso Auto 0.2 % 7 Unknown COMPLETE BLOOD COUNT 9089395 Neutrophil Abs 6.27 10e9/L Unknown COMPLETE BLOOD COUNT 6102675 Lymphocyte Abs 4.24 10e9/L Unknown COMPLETE BLOOD COUNT 9177178 Monocyte Abs 0.92 10e9/L 08/31 Unknown COMPLETE BLOOD COUNT 2747796 Eosinophil Abs 0.25 10e9/L Unknown COMPLETE BLOOD COUNT 0034488 RDW-SD 48.1 fL 7 Unknown COMPLETE BLOOD COUNT 7892477 Basophil Abs 0.02 10e9/L 08/31 Unknown COMPREHENSIVE METABOLIC 55237 AST 19 U/L 2016 Unknown COMPREHENSIVE METABOLIC 36516 ALT 25 U/L 2016 Unknown COMPREHENSIVE METABOLIC 01579 BUN 16 mg/dL 2016 Unknown COMPREHENSIVE METABOLIC 84320 ALBUMIN 4.8 g/dL 2016 Unknown COMPREHENSIVE METABOLIC 18368 CHLORIDE 100 mmol/L 09/09 Unknown COMPREHENSIVE METABOLIC 92226 Bili Total 0.7 mg/dL 09/09 Unknown COMPREHENSIVE METABOLIC 97623 ALK PHOS 50 U/L 2016 Unknown COMPREHENSIVE METABOLIC 56276 SODIUM 136 mmol/L 09/09 Unknown COMPREHENSIVE METABOLIC 60006 CREATININE 0.98 mg/dL 08/31 Unknown COMPREHENSIVE METABOLIC 31577 CALCIUM 9.8 mg/dL 2016 Unknown COMPREHENSIVE METABOLIC 28625 POTASSIUM 4.6 mmol/L 09/09 Unknown COMPREHENSIVE METABOLIC 29057 Total Protein 7.5 g/dL Unknown COMPREHENSIVE METABOLIC 50312 Glucose 104 mg/dL 2016 Unknown COMPREHENSIVE METABOLIC 80739 Bicarbonate 27 mmol/L 08/31 Unknown COMPREHENSIVE METABOLIC 11893 AGAP 9 mmol/L 2016 Unknown FREE T4 02668 T4 Free 1.04 ng/dL 09/09/2016 Unknown THYROID STIMULATING HORMONE 75359 TSH 1.618 uIU/mL 09/09/2016 Unknown LIPID GROUP 20892 Cholesterol 251 mg/dL 09/09/2016 Unkno wn LIPID GROUP 17160 Triglyceride 153 mg/dL 09/09/2016 Unkn own LIPID GROUP 83512 HDL CHOLESTEROL 33 mg/dL 09/09/2016 U nknown LIPID GROUP 44486 Chol/HDL Ratio 7.61 ratio 09/09/2016 U nknown LIPID GROUP 60679 NON-HDL Chol 218 mg/dL 09/09/2016 Unkn own LIPID GROUP 07485 LDL Cholesterol 187 mg/dL 09/09/2016 U nknown LIPID GROUP 59341 HDL TEST 39 MG/DL 09/15/2015 Unknown LIPID GROUP 17867 TRIG 106 MG/DL 09/15/2015 Unknown LIPID GROUP 49329 TEST LDL 152 MG/DL 09/15/2015 Unknown LIPID GROUP 76461 CHOL 212 MG/DL 09/15/2015 Unknown LIPID GROUP 22447 RCHOL/HDL 5.44 RATIO 09/15/2015 Unknow n LIPID GROUP 01637 NON-HDL CH 173 MG/DL 09/15/2015 Unknow n GFR CALC 6942039 GFR AA >60 ML/MIN 09/15/2015 Unknown GFR CALC 5778255 GFR NON-AA >60 ML/MIN 09/15/2015 Unknown COMPREHENSIVE METABOLIC 00199 AST 18 U/L 2015 Unknown COMPREHENSIVE METABOLIC 83212 ALT 28 IU/L 2015 Unknown COMPREHENSIVE METABOLIC 01264 BUN 14 MG/DL 2015 Unknown COMPREHENSIVE METABOLIC 26228 ALBUMIN 4.2 GM/DL 2015 Unknown COMPREHENSIVE METABOLIC 71912 CHLORIDE 101 MMOL/L 09/15 Unknown COMPREHENSIVE METABOLIC 25524 BILI TOT 0.6 MG/DL 2015 Unknown COMPREHENSIVE METABOLIC 94923 ALK PHOS 48 U/L 2015 Unknown COMPREHENSIVE METABOLIC 11435 SODIUM 135 MMOL/L 09/15 Unknown COMPREHENSIVE METABOLIC 12628 CREATININE 0.91 MG/DL 08/31 Unknown COMPREHENSIVE METABOLIC 91423 CALCIUM 9.2 MG/DL 2015 Unknown COMPREHENSIVE METABOLIC 05892 POTASSIUM 4.6 MMOL/L 09/15 Unknown COMPREHENSIVE METABOLIC 35173 PROT TOT 6.6 GM/DL 2015 Unknown COMPREHENSIVE METABOLIC 37468 Glucose 97 MG/DL 2015 Unknown COMPREHENSIVE METABOLIC 75267 BICARB 27 MMOL/L 2015 Unknown COMPREHENSIVE METABOLIC 42980 ANION GAP 7 MEQ/L 2015 Unknown LIPID GROUP 12044 HDL TEST 35 MG/DL 04/14/2015 Unknown LIPID GROUP 07912 TRIG 135 MG/DL 04/14/2015 Unknown LIPID GROUP 21462 TEST LDL 153 MG/DL 04/14/2015 Unknown LIPID GROUP 96723 CHOL 215 MG/DL 04/14/2015 Unknown LIPID GROUP 62138 RCHOL/HDL 6.14 RATIO 04/14/2015 Unknow n LIPID GROUP 67404 NON-HDL CH 180 MG/DL 04/14/2015 Unknow n GFR CALC 8009236 GFR AA >60 ML/MIN 04/14/2015 Unknown GFR CALC 4014188 GFR NON-AA >60 ML/MIN 04/14/2015 Unknown COMPREHENSIVE METABOLIC 35308 AST 23 U/L 2014 Unknown COMPREHENSIVE METABOLIC 30493 ALT 27 IU/L 2014 Unknown COMPREHENSIVE METABOLIC 12768 BUN 15 MG/DL 2014 Unknown COMPREHENSIVE METABOLIC 48341 ALBUMIN 4.2 GM/DL 2014 Unknown COMPREHENSIVE METABOLIC 99965 CHLORIDE 103 MMOL/L 04/14 Unknown COMPREHENSIVE METABOLIC 81250 BILI TOT 0.8 MG/DL 2014 Unknown COMPREHENSIVE METABOLIC 79974 ALK PHOS 50 U/L 2014 Unknown COMPREHENSIVE METABOLIC 47491 SODIUM 134 MMOL/L 04/14 Unknown COMPREHENSIVE METABOLIC 90341 CREATININE 0.93 MG/DL 03/31 Unknown COMPREHENSIVE METABOLIC 22904 CALCIUM 9.4 MG/DL 2014 Unknown COMPREHENSIVE METABOLIC 45208 POTASSIUM 4.4 MMOL/L 04/14 Unknown COMPREHENSIVE METABOLIC 25723 PROT TOT 6.8 GM/DL 2014 Unknown COMPREHENSIVE METABOLIC 28644 Glucose 101 MG/DL 2014 Unknown COMPREHENSIVE METABOLIC 45777 BICARB 25 MMOL/L 2014 Unknown COMPREHENSIVE METABOLIC 07519 ANION GAP 6 MEQ/L 2014 Unknown PSA EQUIMOLAR TROY 95205 PSA EQ 1.04 NG/ML 11/10/201 5 Unknown GFR CALC 7020866 GFR AA >60 ML/MIN 11/10/2014 Unknown GFR CALC 7862421 GFR NON-AA >60 ML/MIN 11/10/2014 Unknown LIPID GROUP 95065 HDL TEST 31 MG/DL 11/10/2014 Unknown LIPID GROUP 68026 TRIG 133 MG/DL 11/10/2014 Unknown LIPID GROUP 13759 TEST LDL 74 MG/DL 11/10/2014 Unknown LIPID GROUP 54413 CHOL 132 MG/DL 11/10/2014 Unknown LIPID GROUP 55154 RCHOL/HDL 4.26 RATIO 11/10/2014 Unknow n LIPID GROUP 72099 NON-HDL CH 101 MG/DL 11/10/2014 Unknow n COMPLETE BLOOD COUNT 6369162 WBC 10.2 10e9/L 015 Unknown COMPLETE BLOOD COUNT 7488976 RBC 5.01 10e12/L 2014 Unknown COMPLETE BLOOD COUNT 9974871 HGB 16.1 g/dL 5 Unknown COMPLETE BLOOD COUNT 1505880 HCT DET 48.1 % 5 Unknown COMPLETE BLOOD COUNT 1709581 MCV 96.0 fL 5 Unknown COMPLETE BLOOD COUNT 2443930 MCH 32.1 pg 5 Unknown COMPLETE BLOOD COUNT 6288528 MCHC 33.5 g/dL 5 Unknown COMPLETE BLOOD COUNT 7782601 PLT 248 10e9/L 11/11/19 15 Unknown COMPLETE BLOOD COUNT 9807183 MPV 11.4 fL 5 Unknown COMPLETE BLOOD COUNT 5931496 GIUSEPPE % 51.2 % 5 Unknown COMPLETE BLOOD COUNT 5322460 LY % 37.4 % 5 Unknown COMPLETE BLOOD COUNT 1867951 MON % 9.2 % 5 Unknown COMPLETE BLOOD COUNT 3410727 EOS % 2.0 % 5 Unknown COMPLETE BLOOD COUNT 1565504 BASO % 0.2 % 5 Unknown COMPLETE BLOOD COUNT 2218167 RDW 14.0 % 5 Unknown COMPLETE BLOOD COUNT 9277556 ABS GIUSEPPE 5.22 10e9/L 015 Unknown COMPLETE BLOOD COUNT 2384132 ABS LYMPH 3.81 10e9/L 015 Unknown COMPLETE BLOOD COUNT 8208499 ABS MONO 0.94 10e9/L 015 Unknown COMPLETE BLOOD COUNT 7661315 ABS EOS 0.20 10e9/L 015 Unknown COMPLETE BLOOD COUNT 7209703 ABS BASO 0.02 10e9/L 015 Unknown COMPLETE BLOOD COUNT 7237679 RDW-SD 47.8 fL 5 Unknown FREE T4 57342 FREE T4 0.92 NG/DL 11/10/2014 Unknown COMPREHENSIVE METABOLIC 43660 AST 18 U/L 2014 Unknown COMPREHENSIVE METABOLIC 33166 ALT 25 IU/L 2014 Unknown COMPREHENSIVE METABOLIC 05584 BUN 16 MG/DL 2014 Unknown COMPREHENSIVE METABOLIC 36148 ALBUMIN 4.5 GM/DL 2014 Unknown COMPREHENSIVE METABOLIC 35027 CHLORIDE 103 MMOL/L 11/10 Unknown COMPREHENSIVE METABOLIC 04115 BILI TOT 0.4 MG/DL 2014 Unknown COMPREHENSIVE METABOLIC 42769 ALK PHOS 53 U/L 2014 Unknown COMPREHENSIVE METABOLIC 38375 SODIUM 135 MMOL/L 11/10 Unknown COMPREHENSIVE METABOLIC 08220 CREATININE 0.97 MG/DL 10/29 Unknown COMPREHENSIVE METABOLIC 97382 CALCIUM 9.4 MG/DL 2014 Unknown COMPREHENSIVE METABOLIC 59846 POTASSIUM 4.4 MMOL/L 11/10 Unknown COMPREHENSIVE METABOLIC 60789 PROT TOT 6.9 GM/DL 2014 Unknown COMPREHENSIVE METABOLIC 21524 Glucose 91 MG/DL 2014 Unknown COMPREHENSIVE METABOLIC 08568 BICARB 26 MMOL/L 2014 Unknown COMPREHENSIVE METABOLIC 76948 ANION GAP 6 MEQ/L 2014 Unknown THYROID STIMULATING HORMONE 32003 TSH 3.791 uIU/ML 11/10/2014 Unknown LIPID GROUP 02470 HDL TEST 35 MG/DL 04/29/2014 Unknown LIPID GROUP 78556 TRIG 123 MG/DL 04/29/2014 Unknown LIPID GROUP 08807 TEST LDL 117 MG/DL 04/29/2014 Unknown LIPID GROUP 67292 CHOL 177 MG/DL 04/29/2014 Unknown LIPID GROUP 00745 RCHOL/HDL 5.06 RATIO 04/29/2014 Unknow n LIPID GROUP 66651 NON-HDL CH 142 MG/DL 04/29/2014 Unknow n COMPREHENSIVE METABOLIC 11713 AST 18 U/L 2013 Unknown COMPREHENSIVE METABOLIC 33651 ALT 29 IU/L 2013 Unknown COMPREHENSIVE METABOLIC 67265 BUN 19 MG/DL 2013 Unknown COMPREHENSIVE METABOLIC 16861 ALBUMIN 4.0 GM/DL 2013 Unknown COMPREHENSIVE METABOLIC 21850 CHLORIDE 106 MMOL/L 04/29 Unknown COMPREHENSIVE METABOLIC 97996 BILI TOT 0.4 MG/DL 2013 Unknown COMPREHENSIVE METABOLIC 15633 ALK PHOS 51 U/L 2013 Unknown COMPREHENSIVE METABOLIC 19150 SODIUM 138 MMOL/L 04/29 Unknown COMPREHENSIVE METABOLIC 30792 CREATININE 0.87 MG/DL 04/02 Unknown COMPREHENSIVE METABOLIC 22754 CALCIUM 9.4 MG/DL 2013 Unknown COMPREHENSIVE METABOLIC 17022 POTASSIUM 4.5 MMOL/L 04/29 Unknown COMPREHENSIVE METABOLIC 72923 PROT TOT 6.8 GM/DL 2013 Unknown COMPREHENSIVE METABOLIC 30925 Glucose 106 MG/DL 2013 Unknown COMPREHENSIVE METABOLIC 31598 BICARB 24 MMOL/L 2013 Unknown COMPREHENSIVE METABOLIC 17200 ANION GAP 8 MEQ/L 2013 Unknown GFR CALC 8522355 GFR AA >60 ML/MIN 04/29/2014 Unknown GFR CALC 6985429 GFR NON-AA >60 ML/MIN 04/29/2014 Unknown LIPID GROUP 13467 HDL TEST 30 MG/DL 12/18/2013 Unknown LIPID GROUP 35209 TRIG 128 MG/DL 12/18/2013 Unknown LIPID GROUP 07516 TEST LDL 166 MG/DL 12/18/2013 Unknown LIPID GROUP 15840 CHOL 222 MG/DL 12/18/2013 Unknown LIPID GROUP 48940 RCHOL/HDL 7.40 RATIO 12/18/2013 Unknow n GFR CALC 4008020 GFR AA >60 ML/MIN 12/18/2013 Unknown GFR CALC 5362629 GFR NON-AA >60 ML/MIN 12/18/2013 Unknown FREE T4 46877 FREE T4 1.07 NG/DL 12/18/2013 Unknown COMPLETE BLOOD COUNT 3676254 WBC 7.2 10e9/L 12/19/19 14 Unknown COMPLETE BLOOD COUNT 0199725 RBC 4.89 10e12/L 2013 Unknown COMPLETE BLOOD COUNT 8973127 HGB 15.5 g/dL 4 Unknown COMPLETE BLOOD COUNT 9570269 HCT DET 46.6 % 4 Unknown COMPLETE BLOOD COUNT 6520515 MCV 95.3 fL 4 Unknown COMPLETE BLOOD COUNT 8871287 MCH 31.7 pg 4 Unknown COMPLETE BLOOD COUNT 2330791 MCHC 33.3 g/dL 4 Unknown COMPLETE BLOOD COUNT 2595783 PLT 246 10e9/L 12/19/19 14 Unknown COMPLETE BLOOD COUNT 5982482 MPV 11.4 fL 4 Unknown COMPLETE BLOOD COUNT 6143717 GIUSEPPE % 48.6 % 4 Unknown COMPLETE BLOOD COUNT 9151254 LY % 37.4 % 4 Unknown COMPLETE BLOOD COUNT 1012039 MON % 10.5 % 4 Unknown COMPLETE BLOOD COUNT 1556510 EOS % 3.2 % 4 Unknown COMPLETE BLOOD COUNT 9033673 BASO % 0.3 % 4 Unknown COMPLETE BLOOD COUNT 8017024 RDW 13.6 % 4 Unknown COMPLETE BLOOD COUNT 2494863 ABS GIUSEPPE 3.50 10e9/L 014 Unknown COMPLETE BLOOD COUNT 0775435 ABS LYMPH 2.69 10e9/L 014 Unknown COMPLETE BLOOD COUNT 5243640 ABS MONO 0.76 10e9/L 014 Unknown COMPLETE BLOOD COUNT 5354584 ABS EOS 0.23 10e9/L 014 Unknown COMPLETE BLOOD COUNT 5485261 ABS BASO 0.02 10e9/L 014 Unknown COMPLETE BLOOD COUNT 8234526 RDW-SD 46.2 fL 4 Unknown COMPREHENSIVE METABOLIC 00506 AST 38 U/L 2013 Unknown COMPREHENSIVE METABOLIC 25304 ALT 33 IU/L 2013 Unknown COMPREHENSIVE METABOLIC 88666 BUN 15 MG/DL 2013 Unknown COMPREHENSIVE METABOLIC 94487 ALBUMIN 4.2 GM/DL 2013 Unknown COMPREHENSIVE METABOLIC 67921 CHLORIDE 103 MMOL/L 12/18 Unknown COMPREHENSIVE METABOLIC 21541 BILI TOT 0.6 MG/DL 2013 Unknown COMPREHENSIVE METABOLIC 64490 ALK PHOS 45 U/L 2013 Unknown COMPREHENSIVE METABOLIC 00272 SODIUM 136 MMOL/L 12/18 Unknown COMPREHENSIVE METABOLIC 48873 CREATININE 0.97 MG/DL 11/29 Unknown COMPREHENSIVE METABOLIC 95687 CALCIUM 9.2 MG/DL 2013 Unknown COMPREHENSIVE METABOLIC 53783 POTASSIUM 4.2 MMOL/L 12/18 Unknown COMPREHENSIVE METABOLIC 92884 PROT TOT 7.0 GM/DL 2013 Unknown COMPREHENSIVE METABOLIC 61408 Glucose 120 MG/DL 2013 Unknown COMPREHENSIVE METABOLIC 24770 BICARB 24 MMOL/L 2013 Unknown COMPREHENSIVE METABOLIC 77843 ANION GAP 9 MEQ/L 2013 Unknown THYROID STIMULATING HORMONE 62173 TSH 1.305 uIU/ML 12/18/2013 Unknown PSA EQUIMOLAR TROY 46135 PSA EQ 1.71 NG/ML 4 Unknown LIPID GROUP 83056 HDL TEST 29 MG/DL 07/17/2012 Unknown LIPID GROUP 04197 TRIG 155 MG/DL 07/17/2012 Unknown LIPID GROUP 16100 TEST LDL 105 MG/DL 07/17/2012 Unknown LIPID GROUP 38098 CHOL 165 MG/DL 07/17/2012 Unknown LIPID GROUP 85737 RCHOL/HDL 5.69 RATIO 07/17/2012 Unknow n GFR CALC 1462037 GFR AA >60 ML/MIN 07/17/2012 Unknown GFR CALC 7853046 GFR NON-AA >60 ML/MIN 07/17/2012 Unknown COMPREHENSIVE METABOLIC 54706 AST 19 U/L 2011 Unknown COMPREHENSIVE METABOLIC 94508 ALT 25 IU/L 2011 Unknown COMPREHENSIVE METABOLIC 21606 BUN 14 MG/DL 2011 Unknown COMPREHENSIVE METABOLIC 27011 ALBUMIN 4.4 GM/DL 2011 Unknown COMPREHENSIVE METABOLIC 83837 CHLORIDE 103 MMOL/L 07/17 Unknown COMPREHENSIVE METABOLIC 82307 BILI TOT 0.6 MG/DL 2011 Unknown COMPREHENSIVE METABOLIC 97138 ALK PHOS 53 U/L 2011 Unknown COMPREHENSIVE METABOLIC 79524 SODIUM 136 MMOL/L 07/17 Unknown COMPREHENSIVE METABOLIC 75208 CREATININE 0.97 MG/DL 06/30 Unknown COMPREHENSIVE METABOLIC 91697 CALCIUM 9.4 MG/DL 2011 Unknown COMPREHENSIVE METABOLIC 62290 POTASSIUM 4.3 MMOL/L 07/17 Unknown COMPREHENSIVE METABOLIC 02894 PROT TOT 6.9 GM/DL 2011 Unknown COMPREHENSIVE METABOLIC 00830 Glucose 102 MG/DL 2011 Unknown COMPREHENSIVE METABOLIC 03364 BICARB 27 MMOL/L 2011 Unknown COMPREHENSIVE METABOLIC 87507 ANION GAP 6 MEQ/L 2011 Unknown ERYTHROCYTE SEDIMENTATION RATE 92085 ESR 14 MM/HR 03/20/2012 Unknown LIPID GROUP 87400 HDL TEST 31 MG/DL 03/20/2012 Unknown LIPID GROUP 28860 TRIG 210 MG/DL 03/20/2012 Unknown LIPID GROUP 24735 TEST LDL 164 MG/DL 03/20/2012 Unknown LIPID GROUP 50087 CHOL 237 MG/DL 03/20/2012 Unknown LIPID GROUP 68437 RCHOL/HDL 7.65 RATIO 03/20/2012 Unknow n GFR CALC 7159337 GFR AA >60 ML/MIN 03/20/2012 Unknown GFR CALC 4146222 GFR NON-AA >60 ML/MIN 03/20/2012 Unknown C-REACTIVE PROTEIN (CRP) QUANT 35321 CRP 0.9 MG/DL 03/20/2012 Unknown COMPLETE BLOOD COUNT 99108 WBC 9.7 10e9/L 03/20/20 12 Unknown COMPLETE BLOOD COUNT 65315 RBC 5.14 10e12/L 2011 Unknown COMPLETE BLOOD COUNT 95731 HGB 15.5 g/dL 2 Unknown COMPLETE BLOOD COUNT 03151 HCT DET 46.9 % 2 Unknown COMPLETE BLOOD COUNT 06379 MCV 91.2 fL 2 Unknown COMPLETE BLOOD COUNT 02386 MCH 30.2 pg 2 Unknown COMPLETE BLOOD COUNT 51254 MCHC 33.0 g/dL 2 Unknown COMPLETE BLOOD COUNT 54463 PLT 280 10e9/L 03/20/20 12 Unknown COMPLETE BLOOD COUNT 09911 MPV 10.6 fL 2 Unknown COMPLETE BLOOD COUNT 37596 GIUSEPPE % 61.5 % 2 Unknown COMPLETE BLOOD COUNT 54532 LY % 26.5 % 2 Unknown COMPLETE BLOOD COUNT 89533 MON % 8.8 % 2 Unknown COMPLETE BLOOD COUNT 45081 EOS % 3.0 % 2 Unknown COMPLETE BLOOD COUNT 57161 BASO % 0.2 % 2 Unknown COMPLETE BLOOD COUNT 67674 RDW 15.3 % 2 Unknown COMPLETE BLOOD COUNT 75620 ABS GIUSEPPE 5.97 10e9/L 012 Unknown COMPLETE BLOOD COUNT 58968 ABS LYMPH 2.57 10e9/L 012 Unknown COMPLETE BLOOD COUNT 70828 ABS MONO 0.85 10e9/L 012 Unknown COMPLETE BLOOD COUNT 67024 ABS EOS 0.29 10e9/L 012 Unknown COMPLETE BLOOD COUNT 50044 ABS BASO 0.02 10e9/L 012 Unknown COMPLETE BLOOD COUNT 25505 RDW-SD 50.3 fL 2 Unknown COMPREHENSIVE METABOLIC 83577 AST 16 U/L 2011 Unknown COMPREHENSIVE METABOLIC 44770 ALT 21 IU/L 2011 Unknown COMPREHENSIVE METABOLIC 13913 BUN 15 MG/DL 2011 Unknown COMPREHENSIVE METABOLIC 44658 ALBUMIN 4.3 GM/DL 2011 Unknown COMPREHENSIVE METABOLIC 74273 CHLORIDE 102 MMOL/L 03/20 Unknown COMPREHENSIVE METABOLIC 07681 BILI TOT 0.5 MG/DL 2011 Unknown COMPREHENSIVE METABOLIC 83428 ALK PHOS 60 U/L 2011 Unknown COMPREHENSIVE METABOLIC 45954 SODIUM 135 MMOL/L 03/20 Unknown COMPREHENSIVE METABOLIC 47283 CREATININE 0.94 MG/DL 03/01 Unknown COMPREHENSIVE METABOLIC 32712 CALCIUM 9.0 MG/DL 2011 Unknown COMPREHENSIVE METABOLIC 28791 POTASSIUM 4.4 MMOL/L 03/20 Unknown COMPREHENSIVE METABOLIC 09703 PROT TOT 6.7 GM/DL 2011 Unknown COMPREHENSIVE METABOLIC 65052 Glucose 96 MG/DL 2011 Unknown COMPREHENSIVE METABOLIC 65226 BICARB 25 MMOL/L 2011 Unknown COMPREHENSIVE METABOLIC 56360 ANION GAP 8 MEQ/L 2011 [place] [address] PRO TIME 21.6 SEC 03/20/[place] [address] INR MCMC 1.8 03/20/2012 Unknow n Procedures Procedure Codes Date ROUTINE VENIPUNCTURE CPT-4: 89090 06/19/2018 ASSAY OF FREE THYROXINE CPT-4: 06018 06/19/2018 ASSAY THYROID STIM HORMONE CPT-4: 10827 06/19/2018 COMPREHEN METABOLIC PANEL CPT-4: 45980 06/19/2018 COMPLETE CBC W/AUTO DIFF WBC CPT-4: 33744 06/19/2018 LIPID PANEL CPT-4: 02713 06/19/2018 ASSAY OF PSA TOTAL CPT-4: 73483 06/19/2018 VITAMIN D TOTAL (25 HYDROXY) CPT-4: 92882 06/19/2018 VITAMIN B-12 CPT-4: 36903 06/19/2018 DEXAMETHASONE SODIUM PHOS CPT-4: J1100 08/31/2017 TRIAMCINOLONE ACET INJ NOS CPT-4: J3301 08/31/2017 DRAIN/INJECT JOINT/BURSA CPT-4: 35819 08/31/2017 ROUTINE VENIPUNCTURE CPT-4: 15401 08/01/2017 COMPREHEN METABOLIC PANEL CPT-4: 22212 08/01/2017 LIPID PANEL CPT-4: 44011 08/01/2017 DRAIN/INJECT JOINT/BURSA CPT-4: 70250 09/12/2016 TRIAMCINOLONE ACET INJ NOS CPT-4: J3301 09/12/2016 DEXAMETHASONE SODIUM PHOS CPT-4: J1100 09/12/2016 ROUTINE VENIPUNCTURE CPT-4: 38660 09/09/2016 ASSAY OF FREE THYROXINE CPT-4: 53012 09/09/2016 ASSAY THYROID STIM HORMONE CPT-4: 71720 09/09/2016 COMPREHEN METABOLIC PANEL CPT-4: 23543 09/09/2016 COMPLETE CBC W/AUTO DIFF WBC CPT-4: 49938 09/09/2016 LIPID PANEL CPT-4: 73377 09/09/2016 SPECIAL REPORTS OR FORMS CPT-4: 21052 08/05/2016 ROUTINE VENIPUNCTURE CPT-4: 76660 09/15/2015 COMPREHEN METABOLIC PANEL CPT-4: 07674 09/15/2015 LIPID PANEL CPT-4: 31905 09/15/2015 PRESCRIP TRANSMIT VIA ERX SY CPT-4: G8553 08/31/2015 ROUTINE VENIPUNCTURE CPT-4: 57184 04/14/2015 COMPREHEN METABOLIC PANEL CPT-4: 37219 04/14/2015 LIPID PANEL CPT-4: 59254 04/14/2015 ROUTINE VENIPUNCTURE CPT-4: 03901 11/10/2014 ASSAY OF FREE THYROXINE CPT-4: 48934 11/10/2014 ASSAY THYROID STIM HORMONE CPT-4: 27250 11/10/2014 COMPREHEN METABOLIC PANEL CPT-4: 86219 11/10/2014 COMPLETE CBC W/AUTO DIFF WBC CPT-4: 81870 11/10/2014 LIPID PANEL CPT-4: 59699 11/10/2014 ASSAY OF PSA TOTAL CPT-4: 08261 11/10/2014 ROUTINE VENIPUNCTURE CPT-4: 78609 04/29/2014 COMPREHEN METABOLIC PANEL CPT-4: 16929 04/29/2014 LIPID PANEL CPT-4: 32082 04/29/2014 ROUTINE VENIPUNCTURE CPT-4: 00929 12/18/2013 ASSAY OF FREE THYROXINE CPT-4: 62227 12/18/2013 ASSAY THYROID STIM HORMONE CPT-4: 59434 12/18/2013 COMPREHEN METABOLIC PANEL CPT-4: 83551 12/18/2013 COMPLETE CBC W/AUTO DIFF WBC CPT-4: 56881 12/18/2013 LIPID PANEL CPT-4: 77355 12/18/2013 ASSAY OF PSA TOTAL CPT-4: 89108 12/18/2013 ROUTINE VENIPUNCTURE CPT-4: 94027 07/17/2012 COMPREHEN METABOLIC PANEL CPT-4: 13864 07/17/2012 LIPID PANEL CPT-4: 54897 07/17/2012 ROUTINE VENIPUNCTURE CPT-4: 44836 03/20/2012 COMPLETE CBC W/AUTO DIFF WBC CPT-4: 04533 03/20/2012 RBC SED RATE AUTOMATED CPT-4: 57046 03/20/2012 C-REACTIVE PROTEIN CPT-4: 18415 03/20/2012 COMPREHEN METABOLIC PANEL CPT-4: 18050 03/20/2012 LIPID PANEL CPT-4: 29610 03/20/2012 PROTHROMBIN TIME CPT-4: 76926 03/20/2012 Vital Signs Date Vital 07/01/2019 Blood Pressure 1: 114/80 Code: 8480-6 BMI: 30.4 Code: 89482-2 Heart Rate 1: 72 bpm Height: 6'2" [...] 1: 126/82 Code: 8480-6 BMI: 31.2 Code: 07081-4 Heart Rate 1: 84 bpm Height: 6'2" Respiratory Rate: 20 bpm SpO2: 94% Tempera ture: 37.0 (C) / 98.6 (F) Weight: 243 lbs 03/02/2018 Blood Pressure 1: 122/80 Code: 8480-6 BMI: 30.8 Code: 79472-5 Heart Rate 1: 74 bpm Height: 6'2" Respiratory Rate: 20 bpm SpO2: 95% Tempera ture: 37.1 (C) / 98.8 (F) Weight: 240 lbs 08/31/2017 Blood Pressure 1: 136/90 Code: 8480-6 Heart Rate 1: 76 bpm Respiratory Rate: 20 bpm Temperature: 36.7 (C) / 98.0 (F) Weight: 247 lbs 07/18/2017 Blood Pressure 1: 126/78 Code: 8480-6 BMI: 31.3 Code: 57845-3 Heart Rate 1: 72 bpm Height: 6'2" Respiratory Rate: 20 bpm SpO2: 94% Tempera ture: 37.0 (C) / 98.6 (F) Weight: 244 lbs 04/24/2017 Blood Pressure 1: 152/92 Code: 8480-6 BMI: 31.1 Code: 51146-6 Heart Rate 1: 74 bpm Height: 6'2" Respiratory Rate: 18 bpm SpO2: 98% Tempera ture: 35.9 (C) / 96.6 (F) Weight: 242 lbs 01/04/2017 Blood Pressure 1: 122/70 Code: 8480-6 BMI: 30.4 Code: 65567-5 Heart Rate 1: 88 bpm Height: 6'2" Respiratory Rate: 20 bpm SpO2: 96% Tempera ture: 36.6 (C) / 97.8 (F) Weight: 237 lbs 09/12/2016 Blood Pressure 1: 136/78 Code: 8480-6 Heart Rate 1: 82 bpm Respiratory Rate: 22 bpm SpO2: 94% Temperature: 36.4 (C) / 97.6 (F) We ight: 234 lbs 09/07/2016 Blood Pressure 1: 122/70 Code: 8480-6 BMI: 30.0 Code: 97733-6 Heart Rate 1: 88 bpm Height: 6'2" Respiratory Rate: 20 bpm SpO2: 94% Tempera ture: 36.6 (C) / 97.9 (F) Weight: 234 lbs 08/31/2015 Blood Pressure 1: 142/94 Code: 8480-6 BMI: 28.9 Code: 43378-4 Heart Rate 1: 92 bpm Height: 6'2" Respiratory Rate: 20 bpm Temperature: 36 .9 (C) / 98.5 (F) Weight: 225 lbs 04/14/2015 Blood Pressure 1: 126/80 Code: 8480-6 BMI: 28.0 Code: 19309-4 Heart Rate 1: 76 bpm Height: 6'2" Respiratory Rate: 20 bpm Temperature: 36 .6 (C) / 97.8 (F) Weight: 218 lbs 10/07/2014 Blood Pressure 1: 128/76 Code: 8480-6 BMI: 28.6 Code: 71868-6 Heart Rate 1: 84 bpm Height: 6'2" Respiratory Rate: 22 bpm Temperature: 36 .6 (C) / 97.9 (F) Weight: 223 lbs 05/01/2014 Blood Pressure 1: 126/68 Code: 8480-6 BMI: 28.2 Code: 15805-9 Heart Rate 1: 84 bpm Height: 6'2" Respiratory Rate: 20 bpm Temperature: 36 .8 (C) / 98.3 (F) Weight: 220 lbs 12/17/2013 Blood Pressure 1: 136/82 Code: 8480-6 BMI: 29.6 Code: 83810-5 Heart Rate 1: 76 bpm Height: 6'1" Respiratory Rate: 20 bpm Temperature: 36 .8 (C) / 98.2 (F) Weight: 224 lbs 12/11/2012 Blood Pressure 1: 122/86 Code: 8480-6 BMI: 30.5 Code: 58852-1 Heart Rate 1: 76 bpm Height: 6'1" Respiratory Rate: 20 bpm SpO2: 93% Tempera ture: 36.8 (C) / 98.2 (F) Weight: 231 lbs 12/04/2012 Blood Pressure 1: 124/86 Code: 8480-6 BMI: 30.5 Code: 61189-5 Heart Rate 1: 68 bpm Height: 6'1" Respiratory Rate: 20 bpm SpO2: 95% Tempera ture: 36.6 (C) / 97.8 (F) Weight: 231 lbs 08/14/2012 Blood Pressure 1: 126/70 Code: 8480-6 BMI: 29.4 Code: 82209-9 Heart Rate 1: 80 bpm Height: 6'1" Respiratory Rate: 20 bpm Temperature: 36 .8 (C) / 98.3 (F) Weight: 223 lbs 07/17/2012 Blood Pressure 1: 124/82 Code: 8480-6 BMI: 29.7 Code: 24062-6 Heart Rate 1: 80 bpm Height: 6'1" Respiratory Rate: 20 bpm Temperature: 36 .8 (C) / 98.2 (F) Weight: 225 lbs 03/20/2012 Blood Pressure 1: 124/78 Code: 8480-6 BMI: 29.3 Code: 70878-5 Heart Rate 1: 72 bpm Height: 6'1" Respiratory Rate: 20 bpm Temperature: 36 .6 (C) / 97.8 (F) Weight: 222 lbs 12/08/2011 Blood Pressure 1: 112/64 Code: 8480-6 BMI: 28.2 Code: 89018-1 Heart Rate 1: 78 bpm Height: 6'1" Temperature: 36.3 (C) / 97.4 (F) Weight: 214 lbs 08/11/2011 Blood Pressure 1: 128/70 Code: 8480-6 BMI: 27.6 Code: 62138-6 Heart Rate 1: 76 bpm Height: 6'1" [...] it Encounters Encounter Performer Location Codes Date ([id number]) OFFICE/OUTPATIENT VISIT EST Diagnosis: Cephalgia[ICD10: R51] Diagnosis: Family history of brain aneurysm[ICD10: Z82.49] Diagnosis: Other intervertebral disc degeneration, 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] Martita MCGOVERN [facility] CPT-4: 99461 07/01/2019 ([id number]) OFFICE/OUTPATIENT VISIT EST Diagnosis: 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] Diagnosis: Bilateral primary osteoarthritis of knee[ICD10: M17.0] Diagnosis: Nicotine dependence, unspecified, uncomplicated[ICD10: F17.200] Diagnosis: Mixed hyperlipidemia[ICD10: E78.2] Martita RENTERIA [facility] CPT-4: 78859 03/27/2019 ([id number]) OFFICE/OUTPATIENT VISIT EST Diagnosis: Mixed hyperlipidemia[ICD10: E78.2] Diagnosis: 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] Diagnosis: Other intervertebral disc degeneration, 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] Martita MCGOVERN [employer] CPT-4: 69694 12/25/2018 ([id number]) OFFICE/OUTPATIENT VISIT EST Diagnosis: Mixed hyperlipidemia[ICD10: E78.2] Diagnosis: Other fatigue[ICD10: R53.83] Diagnosis: Encounter for screening for malignant neoplasm of prostate[ICD10: Z12.5] Diagnosis: Primary osteoarthritis, 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] Diagnosis: Pain in thoracic spine[ICD10: M54.6] Martita FISCHER Sofia SOMERS [employer] [facility] CPT-4: 51082 06/19/2018 ([id number]) OFFICE/OUTPATIENT VISIT EST Diagnosis: Encounter for therapeutic drug level monitoring[ICD10: Z51.81] Diagnosis: Pain in 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: M25.531] Diagnosis: Pain in right knee[ICD10: M25.561] Diagnosis: Pain in left knee[ICD10: M25.562] Marian Juares KATHIE Lam SSohail AGUIRRENDJOELLEN [employer] [facility] CPT-4: 26111 03/02/2018 ([id number]) OFFICE/OUTPATIENT VISIT EST Diagnosis: Mixed hyperlipidemia[ICD10: E78.2] Martita RENTERIA SSohail SOMERS [employer] [facility] CPT-4: 62003 08/01/2017 ([id number]) OFFICE/OUTPATIENT VISIT EST Diagnosis: Other spondylosis with radiculopathy, cervical region[ICD10: M47.22] Diagnosis: Pain in 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: M25.531] Diagnosis: Mixed hyperlipidemia[ICD10: E78.2] Diagnosis: 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] Martita MCGOVERN Sofia SOMERS [employer] [facility] CPT-4: 9921 3 07/18/2017 ([id number]) OFFICE/OUTPATIENT VISIT EST Diagnosis: Other intervertebral disc degeneration, 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] Diagnosis: Cervicalgia[ICD10: M54.2] Martita MCGOVERN AnaSohail JOSÉ MIGUEL YOUNG [employer] [facility] CPT-4: 87823 04/24/2017 ([id number]) OFFICE/OUTPATIENT VISIT EST Diagnosis: Cervicalgia[ICD10: M54.2] Diagnosis: Other intervertebral disc degeneration, 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] Diagnosis: Mixed hyperlipidemia[ICD10: E78.2] Martita RENTERIA Sofia SIMONS [employer] [facility] CPT-4: 02800 01/04/2017 ([id number]) OFFICE/OUTPATIENT VISIT EST Diagnosis: Mixed hyperlipidemia[ICD10: E78.2] Diagnosis: Encounter for general adult medical examination with abnormal findings[ICD10: Z00.01] Martita SIMONS [employer] CPT-4: 85983 09/09/2016 ([id number]) PREV VISIT EST AGE 40-64 Diagnosis: Mixed hyperlipidemia[ICD10: E78.2] Diagnosis: Nicotine dependence, unspecified, uncomplicated[ICD10: F17.200] Diagnosis: Chronic obstructive pulmonary disease with acute lower respiratory infection[ICD10: J44.0] Diagnosis: Bilateral primary osteoarthritis of knee[ICD10: M17.0] Diagnosis: Pain in thoracic spine[ICD10: M54.6] Diagnosis: Pain in 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: M25.531] Diagnosis: Encounter for general adult medical examination with abnormal findings[ICD10: Z00.01] Martita FERRARALINE Sofia SIMONS [employer] CPT-4: 02900 09/07/2016 ([id number]) OFFICE/OUTPATIENT VISIT EST Diagnosis: Mixed hyperlipidemia[ICD10: E78.2] Martita Kristyn SLAUGHTERCHENTE RENTERIA Sofia SIMONS [employer] CPT-4: 37446 09/15/2015 ([id number]) OFFICE/OUTPATIENT VISIT EST Diagnosis: Acute bronchitis, unspecified[ICD10: J20.9] Diagnosis: Chronic obstructive pulmonary disease with acute lower respiratory infection[ICD10: J44.0] Diagnosis: Lumbago with sciatica, right side[ICD10: M54.41] Martita FERRARALINE Sofia SIMONS [employer] CPT-4: 44434 08/31/2015 ([id number]) OFFICE/OUTPATIENT VISIT EST Diagnosis: HYPERLIPIDEMIA NEC/NOS[ICD9: 272.4] Diagnosis: TOBACCO USE DISORDER[ICD9: 305.1] Diagnosis: Osteoarthritis, knee[ICD9: 715.96] Diagnosis: Chronic back pain[ICD9: 724.5] Martita FERRARALINE Ana SIMONS [employer] CPT-4: 91074 04/14/2015 ([id number]) OFFICE/OUTPATIENT VISIT EST Diagnosis: HYPERLIPIDEMIA NEC/NOS[ICD9: 272.4] Diagnosis: COPD[ICD9: 496] Diagnosis: ROUTINE MEDICAL EXAM[ICD9: V70.0] Martita José Miguelfelix Lam AnaSohail KRISTYN [employer] CPT-4: 14483 11/10/2014 ([id number]) OFFICE/OUTPATIENT VISIT EST Diagnosis: Wrist pain[ICD9: 719.43] Diagnosis: Knee osteoarthritis[ICD9: 715.96] Diagnosis: Chronic back pain[ICD9: 724.5] Martita SIMONS DO [facility] CPT-4: 63589 10/07/2014 ([id number]) OFFICE/OUTPATIENT VISIT EST Diagnosis: HYPERLIPIDEMIA NEC/NOS[ICD9: 272.4] Diagnosis: Chronic back pain[ICD9: 724.5] Diagnosis: OSTEOARTH NOS-L/LEG[ICD9: 715.96] Martita SIMONS DO [facility] CPT-4: 23844 05/01/2014 ([id number]) OFFICE/OUTPATIENT VISIT EST Diagnosis: HYPERLIPIDEMIA NEC/NOS[ICD9: 272.4] Martita SIMONS DO [facility] CPT-4: 33964 04/29/2014 ([id number]) OFFICE/OUTPATIENT VISIT EST Diagnosis: ROUTINE MEDICAL EXAM[ICD9: V70.0] Diagnosis: HYPERLIPIDEMIA NEC/NOS[ICD9: 272.4] Martita SIMONS [employer] [facility] CPT-4: 61246 12/18/2013 OFFICE/OUTPATIENT VISIT EST Diagnosis: HYPERLIPIDEMIA NEC/NOS[ICD9: 272.4] Diagnosis: COPD[ICD9: 496] Diagnosis: Knee pain[ICD9: 719.46] Diagnosis: Wrist pain[ICD9: 719.43] Martita LAMAR [facility] CPT-4: 21736 12/17/2013 OFFICE/OUTPATIENT VISIT EST Diagnosis: COPD W/ ACUTE EXACERB[ICD9: 491.21] Diagnosis: COUGH[ICD9: 786.2] Martita SIMONS DO [facility] CPT-4: 01906 12/11/2012 ([id number]) OFFICE/OUTPATIENT VISIT EST Diagnosis: BRONCHITIS, ACUTE[ICD9: 466.0] Diagnosis: COPD exacerbation[ICD9: 491.21] Martita SIMONS DO [facility] CPT-4: 80239 12/04/2012 ([id number]) OFFICE/OUTPATIENT VISIT EST Diagnosis: DERMATITIS NOS[ICD9: 692.9] Diagnosis: TOBACCO USE DISORDER[ICD9: 305.1] Martita Lam Sofia SIMONS [employer] CPT-4: 83588 08/14/2012 ([id number]) OFFICE/OUTPATIENT VISIT EST Diagnosis: TOBACCO USE DISORDER[ICD9: 305.1] Diagnosis: PAIN, LOWER BACK[ICD9: 724.2] Diagnosis: PAIN IN THORACIC SPINE[ICD9: 724.1] Diagnosis: DERMATITIS NOS[ICD9: 692.9] Diagnosis: HYPERLIPIDEMIA NEC/NOS[ICD9: 272.4] Martita MOROCHO Sofia AGUIRRENDJOELLEN [employer] CPT-4: 65653 07/17/2012 ([id number]) OFFICE/OUTPATIENT VISIT EST Diagnosis: HYPERLIPIDEMIA NEC/NOS[ICD9: 272.4] Diagnosis: OSTEOARTH NOS-L/LEG[ICD9: 715.96] Diagnosis: JOINT PAIN-L/LEG[ICD9: 719.46] Diagnosis: AC EMBL SUPRFCL UP EXT[ICD9: 453.81] Martita FISCHER Sofia SOM[employer]SS[employer] CPT-4: 27909 03/20/2012 ([id number]) OFFICE/OUTPATIENT VISIT EST Diagnosis: PAIN, LOWER BACK[ICD9: 724.2] Diagnosis: Superficial venous thrombosis of arm[ICD9: 453.81] Diagnosis: Trigger finger, left[ICD9: 727.03] Martita RENTERIA Sofia SIMONS [employer] CPT-4: 40816 12/08/2011 OFFICE/OUTPATIENT VISIT EST Diagnosis: Knee pain[ICD9: 719.46] Diagnosis: Knee osteoarthritis[ICD9: 715.96] Diagnosis: Thoracic back pain[ICD9: 724.1] Diagnosis: HYPERLIPIDEMIA NEC/NOS[ICD9: 272.4] Martita MOROCHO S. JOSÉ MIGUELNDJOELLEN [employer] CPT-4: 65050 08/11/2011 ([id number]) OFFICE/OUTPATIENT VISIT, NEW Martita HULL AnaSohail KRISTYN [facility] [employer] CPT-4: 04712 05/26/2010 Plan of Care Planned Activity Notes [...] ICD-10 : R51 07/01/2019 Appointment: Martita Simonstel: [address] [place], [place] [phone] MEDICATION REVIEW 07/01/2019 Visit Diagnosis Plan: Mixed hyperlipidemia Discussion: Had lab done in December with Cardiology ICD-9 : 272.4 ICD-10 : E78.2 03/27/2019 Visit Diagnosis Plan: Nicotine dependence, unspecified , uncomplicated Discussion: Smoking cessation ICD-9 : 305.1 ICD-10 : F17.200 03/27/2019 Visit Diagnosis Plan: 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 Discussion: Discussed cardiac rehab vs p ulmonary rehab Follow Up: 3 months ICD-9 : 414.00 ICD-10 : I25.10 03/27/2019 Appointment: Martita Simons WPtel: [address] [place], [place] [phone] [place] MEDICATION REVIEW 03/27/2019 Visit Diagnosis Plan: Other intervertebral disc degene ration, lumbar region Discussion: Stable on hydrocodone UDS done Follow Up: 3 months ICD-9 : 722.52 ICD-10 : M51.36 12/25/2018 Visit Diagnosis Plan: 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 Discussion: Smoking Cessation Continue c urrent meds and fwup with cardiology ICD-9 : 414.00 ICD-10 : I25.10 12/25/2018 Appointment: Martita Simons WPtel: [address] [place], [place] [phone] MEDICATION REVIEW 12/25/2018 Appointment: Martita Simons WPtel: [address] [place], [place] [phone] OFFICE SURGERY 08/22/2018 Visit Diagnosis Plan: Pain [...] M19.031 06/19/2018 Appointment: Martita Simons WPtel: [address] [place] [address] [place] MEDICATION REVIEW 06/19/2018 Appointment: Martita Simons WPtel: [address] [place] [address] [place] CANCELED 06/05/2018 Appointment: Martita Simons WPtel: [address] [place], [place] [phone] [place] CANCELED 05/08/2018 Visit Diagnosis Plan: Pain [...] ICD-10 : M25.561 03/02/2018 Appointment: Marian Juares [address] [place], [place] [phone] [place] MEDICATION REVIEW 03/02/2018 Patient Education: Patient Medication Summary Completed 03/02/2018 Appointment: Martita Simons WPtel: [phone] [facility] UA 02/01/2018 Patient Education: Patient Medication Summary Completed 02/01/2018 Visit Diagnosis Plan: Other synovitis and tenosynoviti s, right hand Discussion: Right wrist cleansed with alcohol and betadine and injected laterally with 1cc 1% lidocaine with 20mg kenalog and 2mg dexamethasone, tolerated well with no complications, neosporin and bandage applied ICD-9 : 727.05 ICD-10 : M65.841 08/31/2017 Appointment: Martita Simons WPtel: [address] [place], [place] [phone] ACUTE ILLNESS 08/31/2017 Patient Education: Patient Medication Summary Completed 08/31/2017 Appointment: Martita Simons WPtel: [address] [place], [place] [phone] 08/01/2017 Patient Education: Patient Medication Summary [...] : M47.22 07/18/2017 Appointment: Martita Simons WPtel: [facility] MEDICATION REVIEW 07/18/2017 Patient Education: Patient Medication Summary Completed 07/18/2017 Visit Diagnosis Plan: Cervicalgia Discussion: Continue PT then fwup after done with PT ICD-9 : 723.1 ICD-10 : M54.2 04/24/2017 Visit Diagnosis Plan: Other intervertebral disc degene ration, lumbar region Discussion: Add PT For lumbar spine ICD-9 : 722.52 ICD-10 : M51.36 04/24/2017 Appointment: Martita Simons WPtel: [address] [place], [place] [phone] [place] MEDICATION REVIEW 04/24/2017 Patient Education: Patient Medication Summary Completed 04/24/2017 Patient Education: Patient Medication Summary Completed 03/22/2017 Care Plan: MRI NECK SPINE W/O DYE LOINC : 03489-3 Pending 03/22/2017 Visit Diagnosis Plan: Mixed hyperlipidemia [...] : M51.36 01/04/2017 Appointment: Martita Simons WPtel: [address] [place], [place] [phone] [place] 6/ lm`sl 6/-Confirmed MEDICATION REVIEW 01/04/2017 Patient Education: Patient Medication Summary Completed 01/04/2017 Visit Diagnosis Plan: Other enthesopathies, not elsewh ere classified Discussion: Right wrist injection as above ICD-9 : 727.05 ICD-10 : M77.8 09/12/2016 Visit Diagnosis Plan: Mixed hyperlipidemia Discussion: Lab discussed Restart lipitor/lifestyle change ICD-9 : 272.4 ICD-10 : E78.2 09/12/2016 Appointment: Martita Simons WPtel: [facility] [place] 09/12 confirmed `sl INJECTION 09/12/2016 Patient Education: Patient Medication Summary Completed 09/12/2016 Appointment: [facility]el[facility] [phone] [facility] [facility] 09/09/2016 Patient Education: Patient Medication Summary Completed 09/09/2016 Visit Diagnosis Plan: Nicotine dependence, unspecified , uncomplicated Discussion: Tobacco Abuse ICD-9 : 305.1 ICD-10 : F17.200 09/07/2016 Visit Diagnosis Plan: Chronic obstructiv e pulmonary disease with acute lower respiratory infection Discussion: Smoking Cessation Symbicort Check CXR ICD-9 : 496 ICD-10 : J44.0 09/07/2016 Visit Diagnosis Plan: Encounter for [facility] adult medical examination with abnormal findings Discussion: Update fasting lab Follow Up: 4 months ICD-9 : V70.0 ICD-10 : Z00.01 09/07/2016 Visit Diagnosis Plan: Mixed hyperlipidemia Discussion: Check CMP, Lipids ICD-9 : 272.4 ICD-10 : E78.2 09/07/2016 Visit Diagnosis Plan: Pain in right wrist Discussion: Will return for wrist injection ICD-9 : 719.43 ICD-10 : M25.531 09/07/2016 Appointment: Martita Simons WPtel: [address] [place], [place] [phone] [place] 09/06 confirmed~sl Annual Well Visit 09/07/2016 Patient Education: Patient Medication Summary Completed 09/07/2016 Care Plan: CHEST X-RAY 2VW FRONTAL&LATL LOINC : 75378-5 Pending 09/07/2016 Visit Plan: Filled out [facility] Insurance Paperwork 08/05/2016 Patient Education: Patient Medication Summary Completed 08/05/2016 Appointment: Martita [facility]el[facility] [phone] [facility] [place] UA 04/25/2016 Patient Education: Patient Medication Summary Completed 04/25/2016 Appointment: Martita Simons [facility]Ptel: [phone] [facility] [place] LAB 09/15/2015 Patient Education: Patient Medication Summary Completed 09/15/2015 Visit Plan: SVN with Albuterol 0.083% Q4 hrs and Q2hrs prn. Supportive care. Rest, Fluids, Tylenol/Motrin prn fever or bodyaches. Notify if worsening symptoms. Daily back stretches, moist heat, Biofreeze prn Flexeril/Prednisone Notify if low back pain persists--will need x-rays Patient seeing Chiropracter [employer] 08/31/2015 Appointment: Martita Simonstel: [address] [place], [place] [phone] 08/28/15 vm cn 08/28/15 appt confirmed cn FOLLOW UP 08/31/2015 Patient Education: Patient Medication Summary Completed 08/31/2015 Appointment: Matrita Simons WPtel: [address] [place], [place] [phone] UA 07/29/2015 Visit Plan: CMP, Lipids today Patient st opped chol meds 1week ago Continue hydrocodone 04/14/2015 Appointment: Martita Simons WPtel: [address] [place], [place] [phone] FOLLOW UP 04/14/2015 Patient Education: Patient Medication Summary Completed 04/14/2015 Appointment: Martita Simonstel: [address] [place], [place] [phone] 11/10/2014 Patient Education: Patient Medication Summary Completed 11/10/2014 Visit Plan: Fasting lab at end of September for Lipids/LFTs Continue hydrocodone at current dose Needs to be on low dose asprin 81mg daily With upcoming trip need to stop every 2hours and get out and stretch 10/07/2014 Appointment: Martita Simons WPtel: [address] [place], [place] [phone] FOLLOW UP 10/07/2014 Patient Education: Patient Medication Summary Completed 10/07/2014 Visit Plan: Lab discussed Will keep meds the same Keep hydrocodone at current dose--discussed schedule change on May 05 05/01/2014 Appointment: Martita Simons WPtel: [address] [place], [place] [phone] 04/29 confirmed when in for labs; asked if he still wanted a reminder call on Monday and he said no he would be here. FOLLOW UP 05/01/2014 Patient Education: Patient Medication Summary Completed 05/01/2014 Appointment: Martita Simons WPtel: [address] [place], [place] [phone] LAB 04/29/2014 Patient Education: Patient Medication Summary Completed 04/29/2014 Appointment: Martita Simons WPtel: [address] [place], [place] [phone] 12/18/2013 Patient Education: Patient Medication Summary Completed 12/18/2013 Appointment: Martita Simons WPtel: [address] [place], [place] [phone] 12/16 FOLLOW UP 12/17/2013 Patient Education: Patient Medication Summary Completed 12/17/2013 Visit Plan: Check CXR Start SVNs with al buterol 0.083% QID 12/11/2012 Appointment: Martita Simons WPtel: [address] [place] [address] FOLLOW UP 12/11/2012 Patient Education: Patient Medication Summary Completed 12/11/2012 Visit Plan: Zithromax for 1wk Prednisone for 1wk Symbicort 160/4.5 2p BID 12/04/2012 Appointment: Martita Simons WPtel: [address] [place] [address] ACUTE ILLNESS 12/04/2012 Patient Education: Patient Medication Summary Completed 12/04/2012 Visit Plan: Continue nystatin/TAC cream and add Lamisil for next month No lipitor for next month If rash persists then will need biopsy Trial of chantix--warned of suicidal ideation/depression Call in 1mo on finger lesion and chantix 08/14/2012 Appointment: Martita Simons WPtel: [address] [place], [place] [phone] 08/13 no answer...08/13 pt called back and confirmed OFFICE SURGERY 08/14/2012 Patient Education: Patient Medication Summary Completed 08/14/2012 Appointment: Martita Simonstel: [address] [place], [place] [phone] FOLLOW UP 07/17/2012 Patient Education: Patient Medication Summary Completed 07/17/2012 Appointment: Martita Simons WPtel: [address] [place] [address] Appointment was confirmed by CN on 06/29 12/ pt called, in family, was in [place] just got yash k 07/03 - [facility] ACUTE ILLNESS 07/02/2012 Visit Plan: Obtain US results of RUE EDWIN coumadin as has been 3mos and start Aspirin 325mg daily Check CMP, Lipids, CBC, ESR, CRP today 03/20/2012 Appointment: Martita Simons WPtel: [address] [place], [place] [phone] FOLLOW UP 03/20/2012 Patient Education: Patient Medication Summary Completed 03/20/2012 Appointment: Martita Simons WPtel: [address] [place] [address] Patient called 2 hours past appt. Said saw a specialist today and specialist is not concerned about blod clot so doesnt want to reschedule-CN FOLLOW UP 12/14/2011 Appointment: Martita Simons WPtel: [address] [place], [place] [phone] FOLLOW UP 12/13/2011 Visit Plan: Continue coumadin--IM is fol lowing level--discussed will likely need 6-12wks Observe contusion to right lower back Fwup with ortho as scheduled 12/08/2011 Appointment: Martita Simons WPtel: [address] [place], [place] [phone] ACUTE ILLNESS 12/08/2011 Patient Education: Patient Medication Summary Completed 12/08/2011 Visit Plan: Check fasting lab when goes for pre-op lab including CMP, CBC, Lipids, TSH, Free T4, PSA, uric acid Needs colonoscopy Hydrocodone refilled #80 to [facility] 08/11/2011 Appointment: Martita Simons [facility]Ptel: [phone] [facility] [place] ESTABLISHED PATIENT 08/11/2011 Patient Education: Patient Medication Summary Completed 08/11/2011 Visit Plan: Obtain most recent lab resul ts Cont current meds Explained that cannot refill pain meds without current rx Discussed Synvisc injections and see ortho as oxycontin for knee arthritis is strong pain med 05/26/2010 Appointment: Martita Simons WPtel: [phone] [facility] NEW PATIENT 05/26/2010 Patient Education: Patient Medication Summary Completed 05/26/2010 Instructions Comment . Filled out [employer] Paperwork . SVN with Albuterol 0.083% Q4hrs [...] CRP today . Continue coumadin--IM is following wilfred mor[facility]--discussed will likely need 6-12wks Observe contusion to right lower back Fwup with ortho as scheduled . Check fasting lab when goes for pre-op lab including CMP, CBC, Lipids, TSH, Free T4, PSA, uric acid Needs colonoscopy [facility] Obtain most recent lab results Cont [...]
--- OUTSIDE RECORDS SUMMARY | 2020-01-12 17:45 | XMS REPORT | CCD ---
Author Author Syd Simons D.O. 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 Role Phone Martita Simons D.O., PP Unavailable CCM Unavailable Summary Purpose Interface Exchange Insurance Providers Payer name Policy type / Coverage type Covered republican ID Effective Begin Date Effective End Date [facility] Commercial Insurance [id number] Unknown Family history Brother Diagnosis Age At Onset No Family Disease Entered N/A Father Diagnosis Age At Onset No Family Disease Entered N/A Mother Diagnosis Age At Onset No Family Disease Entered N/A Social History Social History Element Codes Description Effective Dates Tobacco history SNOMED CT: 84881237 Current every day smoker 06/2012 Number of [...] 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: [...] hydrocodone 10 mg-acetaminophen 325 mg tablet RxNorm: 486677 1 Tablet(s) PO Q6H as needed for pain 07/25/2019 No Stop Date Active (Response to an electronic controlled substance refill request [id number]|1|0|1) hydrocodone 10 mg-acetaminophen 325 mg tablet RxNorm: 643288 1 Tablet(s) PO Q6H as needed for pain 06/26/2019 07/24/2019 Inactive (Response to an electronic controlled substance refill request - RxReferenceNumber: [id number]|1|0|1) hydrocodone 10 mg-acetaminophen 325 mg tablet RxNorm: 758719 1 Tablet(s) PO Q6H as needed for pain 05/28/2019 06/25/2019 Inactive (Response to an electronic controlled substance refill request - RxReferenceNumber: [id number]|1|0|1) hydrocodone 10 mg-acetaminophen 325 mg tablet RxNorm: 452897 1 Tablet(s) PO Q6H as needed for pain 02/25/2019 05/27/2019 Inactive (Response to an electronic controlled substance refill request - RxReferenceNumber: [id number]|1|0|1) hydrocodone 10 mg-acetaminophen 325 mg tablet RxNorm: 964461 1 Tablet(s) PO Q6H as needed for pain 11/26/2018 02/24/2019 Inactive (Response to an electronic controlled substance refill request - RxReferenceNumber: [id number]|1|0|1) hydrocodone 10 mg-acetaminophen 325 mg tablet RxNorm: 238075 1 Tablet(s) PO Q6H as needed for pain 10/30/2018 11/25/2018 Inactive (Response to an electronic controlled substance refill request - RxReferenceNumber: [id number]|1|0|1) hydrocodone 10 mg-acetaminophen 325 mg tablet RxNorm: 800029 1 Tablet(s) PO Q6H as needed for pain 09/26/2018 10/29/2018 Inactive (Response to an electronic controlled substance refill request - RxReferenceNumber: [id number]|1|0|1) hydrocodone 10 mg-acetaminophen 325 mg tablet RxNorm: 228834 1 Tablet(s) PO Q6H as needed for pain 08/30/2018 09/25/2018 Inactive (Response to an electronic controlled substance refill request - RxReferenceNumber: [id number]|1|0|1) hydrocodone 10 mg-acetaminophen 325 mg tablet RxNorm: 636539 1 Tablet(s) PO Q6H as needed for pain 08/01/2018 08/29/2018 Inactive (Response to an electronic controlled substance refill request - RxReferenceNumber: [id number]|1|0|1) hydrocodone 10 mg-acetaminophen 325 mg tablet RxNorm: 310907 1 Tablet(s) PO Q6H as needed for pain 07/04/2018 07/31/2018 Inactive (Response to an electronic controlled substance refill request - RxReferenceNumber: [id number]|1|0|1) hydrocodone 10 mg-acetaminophen 325 mg tablet RxNorm: 157021 1 Tablet(s) PO Q6H as needed for pain 05/31/2018 07/03/2018 Inactive (Response to an electronic controlled substance refill request - RxReferenceNumber: [id number]|1|0|1) hydrocodone 10 mg-acetaminophen 325 mg tablet RxNorm: 227724 1 Tablet(s) PO Q6H as needed for pain 05/01/2018 05/30/2018 Inactive (Response to an electronic controlled substance refill request - RxReferenceNumber: [id number]|1|0|1) hydrocodone 10 mg-acetaminophen 325 mg tablet RxNorm: 392615 1 Tablet(s) PO Q6H as needed for pain 04/03/2018 04/30/2018 Inactive (Response to an electronic controlled substance refill request - RxReferenceNumber: [id number]|1|0|1) hydrocodone 10 mg-acetaminophen 325 mg tablet RxNorm: 059907 1 Tablet(s) PO Q6H as needed for pain 02/26/2018 04/02/2018 Inactive (Response to an electronic controlled substance refill request - RxReferenceNumber: [id number]|1|0|1) clotrimazole-betamethasone 1 %-0.05 % topical cream RxNorm: 025243 TOP As Directed CALL IF NO IMPROVEMENT IN 2 WEEKS 01/30/2018 01/29/2018 Inact kole [SAVINGS FOR UNINSURED PATIENTS -- BIN:[id number], PCN: [id number], Group: [id number], ID# [id number], Process claim through [employer], for questions: . THIS IS NOT INSURANCE.] hydrocodone 10 mg-acetaminophen 325 mg tablet RxNorm: 919961 1 Tablet(s) PO Q6H as needed for pain 01/29/2018 02/25/2018 Inactive (Response to an electronic controlled substance refill request - RxReferenceNumber: [id number]|1|0|1) hydrocodone 10 mg-acetaminophen 325 mg tablet RxNorm: 804345 1 Tablet(s) PO Q6H as needed for pain 12/28/2017 01/28/2018 Inactive (Response to an electronic controlled substance refill request - RxReferenceNumber: [id number]|1|0|1) hydrocodone 10 mg-acetaminophen 325 mg tablet RxNorm: 917389 1 Tablet(s) PO Q6H as needed for pain 11/29/2017 12/27/2017 Inactive (Response to an electronic controlled substance refill request - RxReferenceNumber: [id number]|1|0|1) hydrocodone 10 mg-acetaminophen 325 mg tablet RxNorm: 169638 1 Tablet(s) PO Q6H as needed for pain 11/02/2017 11/28/2017 Inactive (Response to an electronic controlled substance refill request - RxReferenceNumber: [id number]|1|0|1) hydrocodone 10 mg-acetaminophen 325 mg tablet RxNorm: 421111 1 Tablet(s) PO Q6H as needed for pain 10/02/2017 11/01/2017 Inactive (Response to an electronic controlled substance refill request - RxReferenceNumber: [id number]|1|0|1) hydrocodone 10 mg-acetaminophen 325 mg tablet RxNorm: 681866 1 Tablet(s) PO Q6H as needed for pain 08/30/2017 10/01/2017 Inactive (Response to an electronic controlled substance refill request - RxReferenceNumber: [id number]|1|0|1) hydrocodone 10 mg-acetaminophen 325 mg tablet RxNorm: 631711 1 Tablet(s) PO Q6H as needed for pain 08/01/2017 08/29/2017 Inactive (Response to an electronic controlled substance refill request - RxReferenceNumber: [id number]|1|0|1) hydrocodone 10 mg-acetaminophen 325 mg tablet RxNorm: 849983 1 Tablet(s) PO Q6H as needed for pain 06/26/2017 07/31/2017 Inactive (Response to an electronic controlled substance refill request - RxReferenceNumber: [id number]|1|0|1) hydrocodone 10 mg-acetaminophen 325 mg tablet RxNorm: 865334 1 Tablet(s) PO Q6H as needed for pain 06/26/2017 06/30/2019 Inactive (Response to an electronic controlled substance refill request - RxReferenceNumber: [id number]|1|0|1) hydrocodone 10 mg-acetaminophen 325 mg tablet RxNorm: 077090 1 Tablet(s) PO Q6H as needed for pain 03/27/2017 06/25/2017 Inactive (Response to an electronic controlled substance refill request - RxReferenceNumber: [id number]|1|0|1) hydrocodone 10 mg-acetaminophen 325 mg tablet RxNorm: 909280 1 Tablet(s) PO Q6H as needed for pain 02/23/2017 03/26/2017 Inactive (Response to an electronic controlled substance refill request - RxReferenceNumber: [id number]|1|0|1) hydrocodone 10 mg-acetaminophen 325 mg tablet RxNorm: 117303 1 Tablet(s) PO Q6H as needed for pain 01/24/2017 02/22/2017 Inactive (Response to an electronic controlled substance refill request - RxReferenceNumber: [id number]|1|0|1) hydrocodone 10 mg-acetaminophen 325 mg tablet RxNorm: 206810 1 Tablet(s) PO Q6H as needed for pain 12/27/2016 06/30/2019 Inactive (Response to an electronic controlled substance refill request - RxReferenceNumber: [id number]|1|0|1) hydrocodone 10 mg-acetaminophen 325 mg tablet RxNorm: 782072 1 Tablet(s) PO Q6H as needed for pain 12/27/2016 01/23/2017 Inactive (Response to an electronic controlled substance refill request - RxReferenceNumber: [id number]|1|0|1) hydrocodone 10 mg-acetaminophen 325 mg tablet RxNorm: 745154 1 Tablet(s) PO Q6H as needed for pain 11/23/2016 12/26/2016 Inactive (Response to an electronic controlled substance refill request - RxReferenceNumber: [id number]|1|0|1) hydrocodone 10 mg-acetaminophen 325 mg tablet RxNorm: 622202 1 Tablet(s) PO Q6H as needed for pain 10/20/2016 11/22/2016 Inactive (Response to an electronic controlled substance refill request - RxReferenceNumber: [id number]|1|0|1) hydrocodone 10 mg-acetaminophen 325 mg tablet RxNorm: 451537 1 Tablet(s) PO Q6H as needed for pain 09/26/2016 10/19/2016 Inactive (Response to an electronic controlled substance refill request - RxReferenceNumber: [id number]|1|0|1) hydrocodone 10 mg-acetaminophen 325 mg tablet RxNorm: 965824 1 Tablet(s) PO Q6H as needed for pain 07/27/2016 09/25/2016 Inactive (Response to an electronic controlled substance refill request - RxReferenceNumber: [id number]|1|0|1) hydrocodone 10 mg-acetaminophen 325 mg tablet RxNorm: 900089 1 Tablet(s) PO Q6H as needed for pain 05/04/2016 07/26/2016 Inactive (Response to an electronic controlled substance refill request - RxReferenceNumber: [id number]|1|0|1) hydrocodone 10 mg-acetaminophen 325 mg tablet RxNorm: 969112 1 Tablet(s) PO Q6H as needed for pain 03/31/2016 05/03/2016 Inactive (Response to an electronic controlled substance refill request - RxReferenceNumber: [id number]|1|0|1) citalopram 10 mg tablet RxNorm: 332684 1 Tablet(s) PO QD 09/28/2015 0 09/27/2015 Inactive citalopram 10 mg tablet RxNorm: 534861 1 Tablet(s) PO QD 09/28/2015 0 09/06/2016 Inactive Wellbutrin SR 150 mg tablet,sustained-release RxNorm: 463416 1 Tablet(s) PO QAM 09/25/2015 09/06/2016 Inactive prednisone 20 mg tablet RxNorm: 237086 1 Tablet(s) PO T ID for 3 days then 1 po BID for 3 days then one daily for 3 days 08/31/2015 09/06/2016 Inactiv e cyclobenzaprine 10 mg tablet RxNorm: 847527 1 Tablet(s) PO TID as needed for muscle spasm 08/31/2015 07/17/2017 Inactive hydrocodone 10 mg-acetaminophen 325 mg tablet RxNorm: 591206 1 Tablet(s) PO Q6H as needed for pain 08/26/2015 03/30/2016 Inactive (Response to an electronic controlled substance refill request - RxReferenceNumber: [id number]|1|0|1) hydrocodone 10 mg-acetaminophen 325 mg tablet RxNorm: 555213 1 Tablet(s) PO Q6H as needed for pain 07/28/2015 08/25/2015 Inactive (Response to an electronic controlled substance refill request - RxReferenceNumber: [id number]|1|0|1) hydrocodone 10 mg-acetaminophen 325 mg tablet RxNorm: 420716 1 Tablet(s) PO Q6H as needed for pain 06/23/2015 07/27/2015 Inactive (Response to an electronic controlled substance refill request - RxReferenceNumber: [id number]|1|0|1) hydrocodone 10 mg-acetaminophen 325 mg tablet RxNorm: 825986 1 Tablet(s) PO Q6H as needed for pain 05/21/2015 06/22/2015 Inactive (Response to an electronic controlled substance refill request - RxReferenceNumber: [id number]|1|0|1) azithromycin 250 mg tablet RxNorm: 411431 2 Tablet(s) P O on day one, then one tablet on days 2 - 5 04/27/2015 08/30/2015 Inactive hydrocodone 10 mg-acetaminophen 325 mg tablet RxNorm: 927733 1 Tablet(s) PO Q6H as needed for pain 03/25/2015 05/20/2015 Inactive (Response to an electronic controlled substance refill request - RxReferenceNumber: [id number]|1|0|1) hydrocodone 10 mg-acetaminophen 325 mg tablet RxNorm: 284832 1 Tablet(s) PO Q6H as needed for pain 02/24/2015 03/24/2015 Inactive (Response to an electronic controlled substance refill request - RxReferenceNumber: [id number]|1|0|1) hydrocodone 10 mg-acetaminophen 325 mg tablet RxNorm: 585142 1 Tablet(s) PO Q6H as needed for pain 01/23/2015 02/23/2015 Inactive (Response to an electronic controlled substance refill request - RxReferenceNumber: [id number]|1|0|1) hydrocodone 10 mg-acetaminophen 325 mg tablet RxNorm: 085824 1 Tablet(s) PO Q6H as needed for pain 12/23/2014 01/22/2015 Inactive (Response to an electronic controlled substance refill request - RxReferenceNumber: [id number]|1|0|1) hydrocodone 10 mg-acetaminophen 325 mg tablet RxNorm: 642282 1 Tablet(s) PO Q6H as needed for pain 11/24/2014 12/22/2014 Inactive (Response to an electronic controlled substance refill request - RxReferenceNumber: [id number]|1|0|1) hydrocodone 10 mg-acetaminophen 325 mg tablet RxNorm: 669903 1 Tablet(s) PO Q6H as needed for pain 10/28/2014 11/23/2014 Inactive (Response to an electronic controlled substance refill request - RxReferenceNumber: [id number]|1|0|1) hydrocodone 10 mg-acetaminophen 325 mg tablet RxNorm: 729837 1 Tablet(s) PO Q6H as needed for pain 09/25/2014 10/27/2014 Inactive (Response to an electronic controlled substance refill request - RxReferenceNumber: [id number]|1|0|1) Lipitor 80 mg tablet RxNorm: 968032 1 Tablet(s) PO QHS 09/24/2014 Inactive hydrocodone 10 mg-acetaminophen 325 mg tablet RxNorm: 349613 1 Tablet(s) PO Q6H as needed for pain 07/30/2014 09/24/2014 Inactive (Response to an electronic controlled substance refill request - RxReferenceNumber: [id number]|1|0|1) hydrocodone 10 mg-acetaminophen 325 mg tablet RxNorm: 168545 1 Tablet(s) PO Q6H as needed for pain 05/27/2014 07/29/2014 Inactive (Response to an electronic controlled substance refill request - RxReferenceNumber: [id number]|1|0|1) clotrimazole-betamethasone 1 %-0.05 % topical cream RxNorm: 007755 TOP As Directed 05/01/2014 08/30/2015 Inactive [SAVINGS FOR UNI NSURED PATIENTS -- BIN:[id number], PCN: [id number], Group: [id number], ID# [id number], Process claim through [employer], for questions: . THIS IS NOT INSURANCE.] Lipitor 80 mg tablet RxNorm: 561985 1 Tablet(s) PO QHS 04/28/2014 Inactive hydrocodone 10 mg-acetaminophen 325 mg tablet RxNorm: 854415 1 Tablet(s) PO Q6H as needed for pain 04/28/2014 05/26/2014 Inactive (Response to an electronic controlled substance refill request - RxReferenceNumber: [id number]|1|0|1) hydrocodone 10 mg-acetaminophen 325 mg tablet RxNorm: 137455 1 Tablet(s) PO Q6H as needed for pain 03/27/2014 04/27/2014 Inactive (Response to an electronic controlled substance refill request - RxReferenceNumber: [id number]|1|0|1) hydrocodone 10 mg-acetaminophen 325 mg tablet RxNorm: 427843 1 Tablet(s) PO Q6H as needed for pain 12/20/2013 12/20/2013 Inactive (Appended: Co ntrolled substance eRx refill - RxReferenceNumber: [id number]|1|0|1) hydrocodone 10 mg-acetaminophen 325 mg tablet RxNorm: 906787 TAKE 1 TABLET BY MOUTH EVERY 6 HOURS NEEDED FOR PAIN 12/20/2013 01/12/2014 Inactive (Response to an electronic controlled substance refill request - RxReferenceNumber: [id number]|1|0|1) hydrocodone 10 mg-acetaminophen 325 mg tablet RxNorm: 795461 1 Tablet(s) PO Q6H as needed for pain 09/03/2013 12/19/2013 Inactive (Appended: Co ntrolled substance eRx refill - RxReferenceNumber: [id number]|1|0|1) hydrocodone 10 mg-acetaminophen 325 mg tablet RxNorm: 002847 Tablet(s) PO TAKE 1 TABLET BY MOUTH EVERY 6 HOURS NEEDED FOR PAIN 08/08/2013 09/03/2013 Inactive (Appended: Controlled substance eRx refill - RxReferenceNumber: [id number]|1|0|1) hydrocodone 10 mg-acetaminophen 325 mg tablet RxNorm: 451299 Tablet(s) PO TAKE 1 TABLET BY MOUTH EVERY 6 HOURS NEEDED FOR PAIN 07/11/2013 08/07/2013 Inactive (Appended: Controlled substance eRx refill - RxReferenceNumber: [id number]|1|0|1) hydrocodone 10 mg-acetaminophen 325 mg tablet RxNorm: 889769 2 Tablet(s) PO TAKE 1 TABLET BY MOUTH EVERY 6 HOURS NEEDED FOR PAIN 06/12/2013 3 Inactive (Appended: Controlled substance eRx ref ill - RxReferenceNumber: [id number]|1|0|1) hydrocodone 10 mg-acetaminophen 325 mg tablet RxNorm: 210902 2 1 Tablet(s) PO Q6H NEEDED FOR PAIN 05/15/2013 06/12/2013 Inactive (Appended: Co ntrolled substance eRx refill - RxReferenceNumber: [id number]|1|0|1) hydrocodone 10 mg-acetaminophen 325 mg tablet RxNorm: 682691 2 Tablet(s) PO TAKE 1 TO 2 TABLETS BY MOUTH EVERY 6 HOURS NEEDED FOR PAIN 04/18/2013 No Stop Date Active (Appended: Controlled substa nce eRx refill - RxReferenceNumber: [id number]|1|0|1) hydrocodone 10 mg-acetaminophen 325 mg tablet RxNorm: 810312 2 Tablet(s) PO TAKE 1 TO 2 TABLETS BY MOUTH EVERY 6 HOURS NEEDED FOR PAIN 03/19/2013 No Stop Date Active (Appended: Controlled substa nce eRx refill - RxReferenceNumber: [id number]|1|0|1) hydrocodone 10 mg-acetaminophen 325 mg tablet RxNorm: 897690 2 Tablet(s) PO TAKE 1 TO 2 TABLETS BY MOUTH EVERY 6 HOURS NEEDED FOR PAIN 02/06/2013 Inactive (Appended: Controlled substance eRx refi ll - RxReferenceNumber: [id number]|1|0|1) hydrocodone 10 mg-acetaminophen 325 mg tablet RxNorm: 512634 2 Tablet(s) PO TAKE 1 TO 2 TABLETS BY MOUTH EVERY 6 HOURS NEEDED FOR PAIN 01/08/201304/2013 Inactive (Appended: Controlled substance eRx ref ill - RxReferenceNumber: [id number]|1|0|1) Zithromax 250 mg tablet RxNorm: 298561 2 Tablet(s) PO QD 12/04/2012 0 12/10/2012 Inactive prednisone 20 mg tablet RxNorm: 047225 1 Tablet(s) PO BID 12/04/2012 12/10/2012 Inactive atorvastatin 40 mg tablet RxNorm: 122970 1 Tablet(s) PO QD 11/09/19 13 12/17/2013 Inactive hydrocodone 10 mg-acetaminophen 325 mg tablet RxNorm: 987407 2 Tablet(s) PO TAKE 1 TO 2 TABLETS BY MOUTH EVERY 6 HOURS NEEDED FOR PAIN 10/18/201205/2013 Inactive (Appended: Controlled substance eRx ref ill - RxReferenceNumber: [id number]|1|0|1) hydrocodone 10 mg-acetaminophen 325 mg tablet RxNorm: 319522 2 1-2 Tablet(s) PO Q6H as needed for pain 09/06/2012 10/18/2012 Inactive Lamisil 250 mg tablet RxNorm: 828444 1 Tablet(s) PO QD 08/14/2012 Inactive atorvastatin 40 mg tablet RxNorm: 805137 1 Tablet(s) PO QD 08/08/19 13 11/05/2012 Inactive prednisone 20 mg tablet RxNorm: 883239 1 Tablet(s) PO BID 07/17/2012 07/23/2012 Inactive Wellbutrin SR 150 mg tablet,extended release RxNorm: 589915 1 T ablet(s) PO BID 07/17/2012 08/13/2012 Inactive meloxicam 15 mg tablet RxNorm: 988553 1 Tablet(s) PO QD for pain 07/16/2012 Inactive atorvastatin 40 mg tablet RxNorm: 943963 1 Tablet(s) PO QD 06/27/20 12 08/07/2012 Inactive hydrocodone-acetaminophen 10 mg-325 mg tablet RxNorm: 089808 2 1-2 Tablet(s) PO Q6H as needed for pain 05/23/2012 No Stop Date Active hydrocodone-acetaminophen 10 mg-325 mg tablet RxNorm: 219916 2 1-2 Tablet(s) PO Q6H as needed for pain 04/24/2012 No Stop Date Active hydrocodone-acetaminophen 10 mg-325 mg tablet RxNorm: 228923 2 1-2 Tablet(s) PO Q6H as needed for pain 02/08/2012 No Stop Date Active hydrocodone-acetaminophen 10 mg-325 mg Tab RxNorm: 9984708 1-2 Tablet(s) PO Q6H as needed for pain 01/02/2012 No Stop Date Active hydrocodone-acetaminophen 10 mg-325 mg Tab RxNorm: 9217366 1-2 Tablet(s) PO Q6H as needed for pain 11/29/2011 No Stop Date Active hydrocodone-acetaminophen 10 mg-325 mg Tab RxNorm: 1006113 1-2 Tablet(s) PO Q6H as needed for pain 10/24/2011 No Stop Date Active hydrocodone-acetaminophen 10 mg-325 mg Tab RxNorm: 8504980 1-2 Tablet(s) PO Q6H as needed for pain 10/07/2011 No Stop Date Active simvastatin 40 mg Tab RxNorm: 823309 1 Tablet(s) PO QHS 08/11/2011 Inactive clopidogrel 75 mg tablet RxNorm: 732876 1 Tablet(s) PO QD No Start Da te Active metoprolol succinate ER 25 mg tablet,extended release 24 hr RxNorm: 459546 1 Tablet(s) PO QD No Start Date Active Symbicort 160 mcg-4.5 mcg/actuation HFA aerosol inhaler RxNo rm: 5384301 2 INH QD No Start Date Active atorvastatin 40 mg tablet RxNorm: 793391 1 Tablet(s) PO QD No Start D ate Active aspirin 81 mg tablet RxNorm: 405249 1 Tablet(s) PO QD No Start Date Active Vitamin D3 2,000 unit tablet RxNorm: 481979 3 Tablet(s) PO No Start D ate Active lisinopril 5 mg tablet RxNorm: 130747 1 Tablet(s) PO QD No Start Date Active hydrocodone-acetaminophen 10 mg-325 mg Tab RxNorm: 9577087 1-2 Tablet(s) PO Q6H as needed for pain No Start Date 10/06/2011 Inactive Wellbutrin SR 150 mg tablet,sustained-release RxNorm: 852097 1 Tablet(s) PO QAM No Start Date 09/24/2015 Inactive OxyContin 15 mg 12 hr Tab RxNorm: 1347839 1 Tablet(s) PO BID No Sta rt Date 08/10/2011 Inactive warfarin 5 mg Tab RxNorm: 154846 1 Tablet(s) PO QD No Start Date 03/01 Inactive albuterol sulfate 1.25 mg/3 mL Neb Solution RxNorm: 501892 1 Unit Dose INH prn wheezing, congestion, shortness of breath No Start Date 04/30/2014 Inacti ve azithromycin 250 mg tablet RxNorm: 649709 2 Tablet(s) P O on day one, then one tablet on days 2 - 5 No Start Date 04/26/2015 Inactive warfarin 10 mg Tab RxNorm: 818437 1 Tablet(s) PO QOD No Start Date Inactive Symbicort Inhl RxNorm: Inhalation No Start Date 12/16/2013 Inactive Trilipix 135 mg Cap RxNorm: 567885 1 Capsule(s) PO QD No Start Date 0 12/07/2011 Inactive Chantix Starting Month Box 0.5 mg (11)-1 mg (42) table ts in dose pack RxNorm: 757171 Tablet(s) PO as directed No Start Date 12/03/2012 Inactive clotrimazole-betamethasone 1 %-0.05 % topical cream RxNorm: 024654 TOP As Directed No Start Date 04/30/2014 Inactive nystatin-triamcinolone 100,000 unit/g-0.1 % Topical Cream Rx Norm: 7196618 Application TOP BID for 2-4weeks No Start Date 12/03/2012 Inactive Lovastatin 20 mg Tab RxNorm: 098280 1 Tablet(s) PO QHS No Start Date 08/10/2011 Inactive krill oil oral RxNorm: 68510 oral No Start Date 06/30/2019 Inacti ve warfarin 7.5 mg Tab RxNorm: 917949 1 Tablet(s) PO QOD No Start Date 1 09/16/2011 Inactive Lipitor 80 mg tablet RxNorm: 546793 1 Tablet(s) PO QHS No Start Date 04/27/2014 Inactive simvastatin 40 mg Tab RxNorm: 707461 1 Tablet(s) PO QHS No Start Da te 08/10/2011 Inactive Gemfibrozil 600 mg Tab RxNorm: 709522 1 Tablet(s) PO QHS No Start D ate 08/10/2011 Inactive Medication Administered No Medication Administered data Immunizations No Immunization data Results Observation Observation Code Item Item Code Result Date S [facility] Location COMPLETE BLOOD COUNT [id number] WBC 9.7 10e9/L 06/19/20 18 Unknown COMPLETE BLOOD COUNT [id number] RBC 5.35 10e12/L 2017 Unknown COMPLETE BLOOD COUNT [id number] HEMOGLOBIN 17.1 g/dL 06/19/20 18 Unknown COMPLETE BLOOD COUNT [id number] HEMATOCRIT 52.4 % 06/19/20 18 Unknown COMPLETE BLOOD COUNT [id number] MCV 97.9 fL 8 Unknown COMPLETE BLOOD COUNT [id number] MCH 32.0 pg 8 Unknown COMPLETE BLOOD COUNT [id number] MCHC 32.6 g/dL 8 Unknown COMPLETE BLOOD COUNT [id number] PLATELET COUNT 257 10e9/L Unknown COMPLETE BLOOD COUNT [id number] Mean Plt Volume 11.2 fL Unknown COMPLETE BLOOD COUNT [id number] Neut Auto 54.6 % 8 Unknown COMPLETE BLOOD COUNT [id number] Lymph Auto 33.3 % 06/19/20 18 Unknown COMPLETE BLOOD COUNT [id number] Ocean Auto 9.1 % 8 Unknown COMPLETE BLOOD COUNT [id number] RDW 14.4 % 8 Unknown COMPLETE BLOOD COUNT [id number] Eos Auto 2.6 % 8 Unknown COMPLETE BLOOD COUNT [id number] Baso Auto 0.4 % 8 Unknown COMPLETE BLOOD COUNT [id number] Neutrophil Abs 5.30 10e9/L Unknown COMPLETE BLOOD COUNT 0123492 Lymphocyte Abs 3.23 10e9/L Unknown COMPLETE BLOOD COUNT [id number] Monocyte Abs 0.88 10e9/L 06/01 Unknown COMPLETE BLOOD COUNT [id number] Eosinophil Abs 0.25 10e9/L Unknown COMPLETE BLOOD COUNT [id number] RDW-SD 51.8 fL 8 Unknown COMPLETE BLOOD COUNT [id number] Basophil Abs 0.04 10e9/L 06/01 Unknown LIPID GROUP 72948 Cholesterol 222 mg/dL 06/19/2018 Unkno wn LIPID GROUP 85547 Triglyceride 111 mg/dL 06/19/2018 Unkn own LIPID GROUP 47094 HDL CHOLESTEROL 37 mg/dL 06/19/2018 U nknown LIPID GROUP 71764 Chol/HDL Ratio 6.00 ratio 06/19/2018 U nknown LIPID GROUP 53895 NON-HDL Chol 185 mg/dL 06/19/2018 Unkn own LIPID GROUP 87385 LDL Cholesterol 163 mg/dL 06/19/2018 U nknown VITAMIN B 12 78646 VITAMIN B12 532 pg/mL 06/19/2018 Unkn own THYROID STIMULATING HORMONE 62287 TSH 2.685 uIU/mL 06/19/2018 Unknown COMPREHENSIVE METABOLIC 98474 AST 15 U/L 2017 Unknown COMPREHENSIVE METABOLIC 40845 ALT 21 U/L 2017 Unknown COMPREHENSIVE METABOLIC 29150 BUN 16 mg/dL 2017 Unknown COMPREHENSIVE METABOLIC 36780 ALBUMIN 4.1 g/dL 2017 Unknown COMPREHENSIVE METABOLIC 56882 CHLORIDE 99 mmol/L 2017 Unknown COMPREHENSIVE METABOLIC 32752 Bili Total 0.4 mg/dL 06/19 Unknown COMPREHENSIVE METABOLIC 55862 ALK PHOS 43 U/L 2017 Unknown COMPREHENSIVE METABOLIC 70903 SODIUM 136 mmol/L 06/19 Unknown COMPREHENSIVE METABOLIC 55290 CREATININE 0.82 mg/dL 06/01 Unknown COMPREHENSIVE METABOLIC 77477 CALCIUM 9.5 mg/dL 2017 Unknown COMPREHENSIVE METABOLIC 75422 POTASSIUM 5.2 mmol/L 06/19 Unknown COMPREHENSIVE METABOLIC 53507 Total Protein 6.7 g/dL Unknown COMPREHENSIVE METABOLIC 33094 Glucose 81 mg/dL 2017 Unknown COMPREHENSIVE METABOLIC 39163 Bicarbonate 30 mmol/L 06/01 Unknown COMPREHENSIVE METABOLIC 21386 AGAP 7 mmol/L 2017 Unknown FREE T4 51679 T4 Free 0.85 ng/dL 06/19/2018 Unknown GFR CALC [id number] GFR Non Afr Amr >60 mL/min 06/19/2018 Un known GFR CALC 2344839 GFR Afr Amr >60 mL/min 06/19/2018 Unknow n VITAMIN D TOTAL (25 HYDROXY) 10099 Vitamin D 25 OH 24.1 ng/mL 06/19/2018 Unknown PSA EQUIMOLAR TROY 20902 PSA Total 0.88 ng/mL 8 Unknown GFR CALC [id number] GFR Non Afr Amr >60 mL/min 09/09/2016 Un known GFR CALC 3322938 GFR Afr Amr >60 mL/min 09/09/2016 Unknow n COMPLETE BLOOD COUNT 5263525 WBC 11.7 10e9/L 017 Unknown COMPLETE BLOOD COUNT [id number] RBC 5.54 10e12/L 2016 Unknown COMPLETE BLOOD COUNT 9237620 HEMOGLOBIN 17.6 g/dL 09/09/19 17 Unknown COMPLETE BLOOD COUNT 7963557 HEMATOCRIT 52.3 % 09/09/19 17 Unknown COMPLETE BLOOD COUNT 2458382 MCV 94.4 fL 7 Unknown COMPLETE BLOOD COUNT 8769160 MCH 31.8 pg 7 Unknown COMPLETE BLOOD COUNT 9569611 MCHC 33.7 g/dL 7 Unknown COMPLETE BLOOD COUNT [id number] PLATELET COUNT 259 10e9/L 04/2017 Unknown COMPLETE BLOOD COUNT 1607035 Mean Plt Volume 11.2 fL 04/2017 Unknown COMPLETE BLOOD COUNT 6507191 Neut Auto 53.6 % 7 Unknown COMPLETE BLOOD COUNT 0205312 Lymph Auto 36.2 % 09/09/19 17 Unknown COMPLETE BLOOD COUNT 3092388 Ocean Auto 7.9 % 7 Unknown COMPLETE BLOOD COUNT 0189587 RDW 14.2 % 7 Unknown COMPLETE BLOOD COUNT 5062220 Eos Auto 2.1 % 7 Unknown COMPLETE BLOOD COUNT 3784874 Baso Auto 0.2 % 7 Unknown COMPLETE BLOOD COUNT 6689278 Neutrophil Abs 6.27 10e9/L Unknown COMPLETE BLOOD COUNT 5585178 Lymphocyte Abs 4.24 10e9/L Unknown COMPLETE BLOOD COUNT 1038295 Monocyte Abs 0.92 10e9/L 08/31 Unknown COMPLETE BLOOD COUNT 6059027 Eosinophil Abs 0.25 10e9/L Unknown COMPLETE BLOOD COUNT 3441027 RDW-SD 48.1 fL 7 Unknown COMPLETE BLOOD COUNT 8701891 Basophil Abs 0.02 10e9/L 08/31 Unknown COMPREHENSIVE METABOLIC 09247 AST 19 U/L 2016 Unknown COMPREHENSIVE METABOLIC 89242 ALT 25 U/L 2016 Unknown COMPREHENSIVE METABOLIC 59293 BUN 16 mg/dL 2016 Unknown COMPREHENSIVE METABOLIC 95098 ALBUMIN 4.8 g/dL 2016 Unknown COMPREHENSIVE METABOLIC 10842 CHLORIDE 100 mmol/L 09/09 Unknown COMPREHENSIVE METABOLIC 46026 Bili Total 0.7 mg/dL 09/09 Unknown COMPREHENSIVE METABOLIC 90725 ALK PHOS 50 U/L 2016 Unknown COMPREHENSIVE METABOLIC 58442 SODIUM 136 mmol/L 09/09 Unknown COMPREHENSIVE METABOLIC 67626 CREATININE 0.98 mg/dL 08/31 Unknown COMPREHENSIVE METABOLIC 07800 CALCIUM 9.8 mg/dL 2016 Unknown COMPREHENSIVE METABOLIC 17620 POTASSIUM 4.6 mmol/L 09/09 Unknown COMPREHENSIVE METABOLIC 06819 Total Protein 7.5 g/dL Unknown COMPREHENSIVE METABOLIC 51499 Glucose 104 mg/dL 2016 Unknown COMPREHENSIVE METABOLIC 32328 Bicarbonate 27 mmol/L 08/31 Unknown COMPREHENSIVE METABOLIC 39329 AGAP 9 mmol/L 2016 Unknown FREE T4 40056 T4 Free 1.04 ng/dL 09/09/2016 Unknown THYROID STIMULATING HORMONE 76118 TSH 1.618 uIU/mL 09/09/2016 Unknown LIPID GROUP 04803 Cholesterol 251 mg/dL 09/09/2016 Unkno wn LIPID GROUP 81736 Triglyceride 153 mg/dL 09/09/2016 Unkn own LIPID GROUP 83818 HDL CHOLESTEROL 33 mg/dL 09/09/2016 U nknown LIPID GROUP 31498 Chol/HDL Ratio 7.61 ratio 09/09/2016 U nknown LIPID GROUP 13271 NON-HDL Chol 218 mg/dL 09/09/2016 Unkn own LIPID GROUP 67526 LDL Cholesterol 187 mg/dL 09/09/2016 U nknown LIPID GROUP 02710 HDL TEST 39 MG/DL 09/15/2015 Unknown LIPID GROUP 00332 TRIG 106 MG/DL 09/15/2015 Unknown LIPID GROUP 49556 TEST LDL 152 MG/DL 09/15/2015 Unknown LIPID GROUP 50014 CHOL 212 MG/DL 09/15/2015 Unknown LIPID GROUP 49435 RCHOL/HDL 5.44 RATIO 09/15/2015 Unknow n LIPID GROUP 23196 NON-HDL CH 173 MG/DL 09/15/2015 Unknow n GFR CALC 5347147 GFR AA >60 ML/MIN 09/15/2015 Unknown GFR CALC 0129908 GFR NON-AA >60 ML/MIN 09/15/2015 Unknown COMPREHENSIVE METABOLIC 02277 AST 18 U/L 2015 Unknown COMPREHENSIVE METABOLIC 16849 ALT 28 IU/L 2015 Unknown COMPREHENSIVE METABOLIC 77693 BUN 14 MG/DL 2015 Unknown COMPREHENSIVE METABOLIC 40707 ALBUMIN 4.2 GM/DL 2015 Unknown COMPREHENSIVE METABOLIC 99017 CHLORIDE 101 MMOL/L 09/15 Unknown COMPREHENSIVE METABOLIC 71170 BILI TOT 0.6 MG/DL 2015 Unknown COMPREHENSIVE METABOLIC 89504 ALK PHOS 48 U/L 2015 Unknown COMPREHENSIVE METABOLIC 62113 SODIUM 135 MMOL/L 09/15 Unknown COMPREHENSIVE METABOLIC 47071 CREATININE 0.91 MG/DL 08/31 Unknown COMPREHENSIVE METABOLIC 59954 CALCIUM 9.2 MG/DL 2015 Unknown COMPREHENSIVE METABOLIC 78718 POTASSIUM 4.6 MMOL/L 09/15 Unknown COMPREHENSIVE METABOLIC 18791 PROT TOT 6.6 GM/DL 2015 Unknown COMPREHENSIVE METABOLIC 97012 Glucose 97 MG/DL 2015 Unknown COMPREHENSIVE METABOLIC 03325 BICARB 27 MMOL/L 2015 Unknown COMPREHENSIVE METABOLIC 53288 ANION GAP 7 MEQ/L 2015 Unknown LIPID GROUP 26473 HDL TEST 35 MG/DL 04/14/2015 Unknown LIPID GROUP 01263 TRIG 135 MG/DL 04/14/2015 Unknown LIPID GROUP 25249 TEST LDL 153 MG/DL 04/14/2015 Unknown LIPID GROUP 20582 CHOL 215 MG/DL 04/14/2015 Unknown LIPID GROUP 90101 RCHOL/HDL 6.14 RATIO 04/14/2015 Unknow n LIPID GROUP 47428 NON-HDL CH 180 MG/DL 04/14/2015 Unknow n GFR CALC 7278924 GFR AA >60 ML/MIN 04/14/2015 Unknown GFR CALC 7163596 GFR NON-AA >60 ML/MIN 04/14/2015 Unknown COMPREHENSIVE METABOLIC 58960 AST 23 U/L 2014 Unknown COMPREHENSIVE METABOLIC 24764 ALT 27 IU/L 2014 Unknown COMPREHENSIVE METABOLIC 01534 BUN 15 MG/DL 2014 Unknown COMPREHENSIVE METABOLIC 74193 ALBUMIN 4.2 GM/DL 2014 Unknown COMPREHENSIVE METABOLIC 18270 CHLORIDE 103 MMOL/L 04/14 Unknown COMPREHENSIVE METABOLIC 43154 BILI TOT 0.8 MG/DL 2014 Unknown COMPREHENSIVE METABOLIC 85403 ALK PHOS 50 U/L 2014 Unknown COMPREHENSIVE METABOLIC 34041 SODIUM 134 MMOL/L 04/14 Unknown COMPREHENSIVE METABOLIC 18805 CREATININE 0.93 MG/DL 03/31 Unknown COMPREHENSIVE METABOLIC 61550 CALCIUM 9.4 MG/DL 2014 Unknown COMPREHENSIVE METABOLIC 97190 POTASSIUM 4.4 MMOL/L 04/14 Unknown COMPREHENSIVE METABOLIC 33992 PROT TOT 6.8 GM/DL 2014 Unknown COMPREHENSIVE METABOLIC 30019 Glucose 101 MG/DL 2014 Unknown COMPREHENSIVE METABOLIC 56217 BICARB 25 MMOL/L 2014 Unknown COMPREHENSIVE METABOLIC 31233 ANION GAP 6 MEQ/L 2014 Unknown PSA EQUIMOLAR TROY 13078 PSA EQ 1.04 NG/ML 11/10/201 5 Unknown GFR CALC 1906261 GFR AA >60 ML/MIN 11/10/2014 Unknown GFR CALC 1045285 GFR NON-AA >60 ML/MIN 11/10/2014 Unknown LIPID GROUP 77073 HDL TEST 31 MG/DL 11/10/2014 Unknown LIPID GROUP 53262 TRIG 133 MG/DL 11/10/2014 Unknown LIPID GROUP 87257 TEST LDL 74 MG/DL 11/10/2014 Unknown LIPID GROUP 38008 CHOL 132 MG/DL 11/10/2014 Unknown LIPID GROUP 79932 RCHOL/HDL 4.26 RATIO 11/10/2014 Unknow n LIPID GROUP 38275 NON-HDL CH 101 MG/DL 11/10/2014 Unknow n COMPLETE BLOOD COUNT 7634540 WBC 10.2 10e9/L 015 Unknown COMPLETE BLOOD COUNT 5999675 RBC 5.01 10e12/L 2014 Unknown COMPLETE BLOOD COUNT 5286238 HGB 16.1 g/dL 5 Unknown COMPLETE BLOOD COUNT 5376608 HCT DET 48.1 % 5 Unknown COMPLETE BLOOD COUNT 8382017 MCV 96.0 fL 5 Unknown COMPLETE BLOOD COUNT 1876566 MCH 32.1 pg 5 Unknown COMPLETE BLOOD COUNT 3016512 MCHC 33.5 g/dL 5 Unknown COMPLETE BLOOD COUNT 9103855 PLT 248 10e9/L 11/11/19 15 Unknown COMPLETE BLOOD COUNT 9307132 MPV 11.4 fL 5 Unknown COMPLETE BLOOD COUNT 5510612 GIUSEPPE % 51.2 % 5 Unknown COMPLETE BLOOD COUNT 4615174 LY % 37.4 % 5 Unknown COMPLETE BLOOD COUNT 6763362 MON % 9.2 % 5 Unknown COMPLETE BLOOD COUNT 4836118 EOS % 2.0 % 5 Unknown COMPLETE BLOOD COUNT 2454594 BASO % 0.2 % 5 Unknown COMPLETE BLOOD COUNT 3170890 RDW 14.0 % 5 Unknown COMPLETE BLOOD COUNT 4740240 ABS GIUSEPPE 5.22 10e9/L 015 Unknown COMPLETE BLOOD COUNT 3911009 ABS LYMPH 3.81 10e9/L 015 Unknown COMPLETE BLOOD COUNT 6868885 ABS MONO 0.94 10e9/L 015 Unknown COMPLETE BLOOD COUNT 0393813 ABS EOS 0.20 10e9/L 015 Unknown COMPLETE BLOOD COUNT 2627765 ABS BASO 0.02 10e9/L 015 Unknown COMPLETE BLOOD COUNT 3200023 RDW-SD 47.8 fL 5 Unknown FREE T4 87610 FREE T4 0.92 NG/DL 11/10/2014 Unknown COMPREHENSIVE METABOLIC 47943 AST 18 U/L 2014 Unknown COMPREHENSIVE METABOLIC 82638 ALT 25 IU/L 2014 Unknown COMPREHENSIVE METABOLIC 08302 BUN 16 MG/DL 2014 Unknown COMPREHENSIVE METABOLIC 23714 ALBUMIN 4.5 GM/DL 2014 Unknown COMPREHENSIVE METABOLIC 24747 CHLORIDE 103 MMOL/L 11/10 Unknown COMPREHENSIVE METABOLIC 79672 BILI TOT 0.4 MG/DL 2014 Unknown COMPREHENSIVE METABOLIC 80061 ALK PHOS 53 U/L 2014 Unknown COMPREHENSIVE METABOLIC 76392 SODIUM 135 MMOL/L 11/10 Unknown COMPREHENSIVE METABOLIC 25906 CREATININE 0.97 MG/DL 10/29 Unknown COMPREHENSIVE METABOLIC 27425 CALCIUM 9.4 MG/DL 2014 Unknown COMPREHENSIVE METABOLIC 32001 POTASSIUM 4.4 MMOL/L 11/10 Unknown COMPREHENSIVE METABOLIC 97680 PROT TOT 6.9 GM/DL 2014 Unknown COMPREHENSIVE METABOLIC 54677 Glucose 91 MG/DL 2014 Unknown COMPREHENSIVE METABOLIC 29701 BICARB 26 MMOL/L 2014 Unknown COMPREHENSIVE METABOLIC 04121 ANION GAP 6 MEQ/L 2014 Unknown THYROID STIMULATING HORMONE 34747 TSH 3.791 uIU/ML 11/10/2014 Unknown LIPID GROUP 89764 HDL TEST 35 MG/DL 04/29/2014 Unknown LIPID GROUP 22630 TRIG 123 MG/DL 04/29/2014 Unknown LIPID GROUP 87162 TEST LDL 117 MG/DL 04/29/2014 Unknown LIPID GROUP 91848 CHOL 177 MG/DL 04/29/2014 Unknown LIPID GROUP 25875 RCHOL/HDL 5.06 RATIO 04/29/2014 Unknow n LIPID GROUP 51251 NON-HDL CH 142 MG/DL 04/29/2014 Unknow n COMPREHENSIVE METABOLIC 37789 AST 18 U/L 2013 Unknown COMPREHENSIVE METABOLIC 69144 ALT 29 IU/L 2013 Unknown COMPREHENSIVE METABOLIC 08473 BUN 19 MG/DL 2013 Unknown COMPREHENSIVE METABOLIC 83115 ALBUMIN 4.0 GM/DL 2013 Unknown COMPREHENSIVE METABOLIC 60281 CHLORIDE 106 MMOL/L 04/29 Unknown COMPREHENSIVE METABOLIC 17246 BILI TOT 0.4 MG/DL 2013 Unknown COMPREHENSIVE METABOLIC 44216 ALK PHOS 51 U/L 2013 Unknown COMPREHENSIVE METABOLIC 69753 SODIUM 138 MMOL/L 04/29 Unknown COMPREHENSIVE METABOLIC 27290 CREATININE 0.87 MG/DL 04/02 Unknown COMPREHENSIVE METABOLIC 81519 CALCIUM 9.4 MG/DL 2013 Unknown COMPREHENSIVE METABOLIC 95590 POTASSIUM 4.5 MMOL/L 04/29 Unknown COMPREHENSIVE METABOLIC 55362 PROT TOT 6.8 GM/DL 2013 Unknown COMPREHENSIVE METABOLIC 46395 Glucose 106 MG/DL 2013 Unknown COMPREHENSIVE METABOLIC 96407 BICARB 24 MMOL/L 2013 Unknown COMPREHENSIVE METABOLIC 01699 ANION GAP 8 MEQ/L 2013 Unknown GFR CALC 9164294 GFR AA >60 ML/MIN 04/29/2014 Unknown GFR CALC 0253448 GFR NON-AA >60 ML/MIN 04/29/2014 Unknown LIPID GROUP 03804 HDL TEST 30 MG/DL 12/18/2013 Unknown LIPID GROUP 05380 TRIG 128 MG/DL 12/18/2013 Unknown LIPID GROUP 71870 TEST LDL 166 MG/DL 12/18/2013 Unknown LIPID GROUP 89953 CHOL 222 MG/DL 12/18/2013 Unknown LIPID GROUP 78365 RCHOL/HDL 7.40 RATIO 12/18/2013 Unknow n GFR CALC 2083739 GFR AA >60 ML/MIN 12/18/2013 Unknown GFR CALC 5990003 GFR NON-AA >60 ML/MIN 12/18/2013 Unknown FREE T4 28423 FREE T4 1.07 NG/DL 12/18/2013 Unknown COMPLETE BLOOD COUNT 3643320 WBC 7.2 10e9/L 12/19/19 14 Unknown COMPLETE BLOOD COUNT 4570269 RBC 4.89 10e12/L 2013 Unknown COMPLETE BLOOD COUNT 9856910 HGB 15.5 g/dL 4 Unknown COMPLETE BLOOD COUNT 3789369 HCT DET 46.6 % 4 Unknown COMPLETE BLOOD COUNT 7162520 MCV 95.3 fL 4 Unknown COMPLETE BLOOD COUNT 9661735 MCH 31.7 pg 4 Unknown COMPLETE BLOOD COUNT 2466303 MCHC 33.3 g/dL 4 Unknown COMPLETE BLOOD COUNT 0418224 PLT 246 10e9/L 12/19/19 14 Unknown COMPLETE BLOOD COUNT 9626930 MPV 11.4 fL 4 Unknown COMPLETE BLOOD COUNT 8650744 GIUSEPPE % 48.6 % 4 Unknown COMPLETE BLOOD COUNT 5852368 LY % 37.4 % 4 Unknown COMPLETE BLOOD COUNT 7284858 MON % 10.5 % 4 Unknown COMPLETE BLOOD COUNT 8519589 EOS % 3.2 % 4 Unknown COMPLETE BLOOD COUNT 8098598 BASO % 0.3 % 4 Unknown COMPLETE BLOOD COUNT 4643117 RDW 13.6 % 4 Unknown COMPLETE BLOOD COUNT 9979791 ABS GIUSEPPE 3.50 10e9/L 014 Unknown COMPLETE BLOOD COUNT 0447415 ABS LYMPH 2.69 10e9/L 014 Unknown COMPLETE BLOOD COUNT 5794667 ABS MONO 0.76 10e9/L 014 Unknown COMPLETE BLOOD COUNT 4357699 ABS EOS 0.23 10e9/L 014 Unknown COMPLETE BLOOD COUNT 7859240 ABS BASO 0.02 10e9/L 014 Unknown COMPLETE BLOOD COUNT 8942826 RDW-SD 46.2 fL 4 Unknown COMPREHENSIVE METABOLIC 65221 AST 38 U/L 2013 Unknown COMPREHENSIVE METABOLIC 99786 ALT 33 IU/L 2013 Unknown COMPREHENSIVE METABOLIC 05656 BUN 15 MG/DL 2013 Unknown COMPREHENSIVE METABOLIC 44675 ALBUMIN 4.2 GM/DL 2013 Unknown COMPREHENSIVE METABOLIC 31859 CHLORIDE 103 MMOL/L 12/18 Unknown COMPREHENSIVE METABOLIC 39296 BILI TOT 0.6 MG/DL 2013 Unknown COMPREHENSIVE METABOLIC 53240 ALK PHOS 45 U/L 2013 Unknown COMPREHENSIVE METABOLIC 86761 SODIUM 136 MMOL/L 12/18 Unknown COMPREHENSIVE METABOLIC 19595 CREATININE 0.97 MG/DL 11/29 Unknown COMPREHENSIVE METABOLIC 73389 CALCIUM 9.2 MG/DL 2013 Unknown COMPREHENSIVE METABOLIC 33167 POTASSIUM 4.2 MMOL/L 12/18 Unknown COMPREHENSIVE METABOLIC 21546 PROT TOT 7.0 GM/DL 2013 Unknown COMPREHENSIVE METABOLIC 51085 Glucose 120 MG/DL 2013 Unknown COMPREHENSIVE METABOLIC 21309 BICARB 24 MMOL/L 2013 Unknown COMPREHENSIVE METABOLIC 33336 ANION GAP 9 MEQ/L 2013 Unknown THYROID STIMULATING HORMONE 44674 TSH 1.305 uIU/ML 12/18/2013 Unknown PSA EQUIMOLAR TROY 70089 PSA EQ 1.71 NG/ML 4 Unknown LIPID GROUP 63456 HDL TEST 29 MG/DL 07/17/2012 Unknown LIPID GROUP 00193 TRIG 155 MG/DL 07/17/2012 Unknown LIPID GROUP 60959 TEST LDL 105 MG/DL 07/17/2012 Unknown LIPID GROUP 24412 CHOL 165 MG/DL 07/17/2012 Unknown LIPID GROUP 95189 RCHOL/HDL 5.69 RATIO 07/17/2012 Unknow n GFR CALC 0631397 GFR AA >60 ML/MIN 07/17/2012 Unknown GFR CALC 2471015 GFR NON-AA >60 ML/MIN 07/17/2012 Unknown COMPREHENSIVE METABOLIC 14039 AST 19 U/L 2011 Unknown COMPREHENSIVE METABOLIC 50789 ALT 25 IU/L 2011 Unknown COMPREHENSIVE METABOLIC 31331 BUN 14 MG/DL 2011 Unknown COMPREHENSIVE METABOLIC 62008 ALBUMIN 4.4 GM/DL 2011 Unknown COMPREHENSIVE METABOLIC 13757 CHLORIDE 103 MMOL/L 07/17 Unknown COMPREHENSIVE METABOLIC 91991 BILI TOT 0.6 MG/DL 2011 Unknown COMPREHENSIVE METABOLIC 87372 ALK PHOS 53 U/L 2011 Unknown COMPREHENSIVE METABOLIC 22874 SODIUM 136 MMOL/L 07/17 Unknown COMPREHENSIVE METABOLIC 33047 CREATININE 0.97 MG/DL 06/30 Unknown COMPREHENSIVE METABOLIC 69046 CALCIUM 9.4 MG/DL 2011 Unknown COMPREHENSIVE METABOLIC 92828 POTASSIUM 4.3 MMOL/L 07/17 Unknown COMPREHENSIVE METABOLIC 94004 PROT TOT 6.9 GM/DL 2011 Unknown COMPREHENSIVE METABOLIC 63078 Glucose 102 MG/DL 2011 Unknown COMPREHENSIVE METABOLIC 39185 BICARB 27 MMOL/L 2011 Unknown COMPREHENSIVE METABOLIC 68667 ANION GAP 6 MEQ/L 2011 Unknown ERYTHROCYTE SEDIMENTATION RATE 91287 ESR 14 MM/HR 03/20/2012 Unknown LIPID GROUP 95181 HDL TEST 31 MG/DL 03/20/2012 Unknown LIPID GROUP 50357 TRIG 210 MG/DL 03/20/2012 Unknown LIPID GROUP 18689 TEST LDL 164 MG/DL 03/20/2012 Unknown LIPID GROUP 37796 CHOL 237 MG/DL 03/20/2012 Unknown LIPID GROUP 48926 RCHOL/HDL 7.65 RATIO 03/20/2012 Unknow n GFR CALC 9043761 GFR AA >60 ML/MIN 03/20/2012 Unknown GFR CALC 0680425 GFR NON-AA >60 ML/MIN 03/20/2012 Unknown C-REACTIVE PROTEIN (CRP) QUANT 41361 CRP 0.9 MG/DL 03/20/2012 Unknown COMPLETE BLOOD COUNT 42275 WBC 9.7 10e9/L 03/20/20 12 Unknown COMPLETE BLOOD COUNT 33507 RBC 5.14 10e12/L 2011 Unknown COMPLETE BLOOD COUNT 68571 HGB 15.5 g/dL 2 Unknown COMPLETE BLOOD COUNT 41381 HCT DET 46.9 % 2 Unknown COMPLETE BLOOD COUNT 80405 MCV 91.2 fL 2 Unknown COMPLETE BLOOD COUNT 74080 MCH 30.2 pg 2 Unknown COMPLETE BLOOD COUNT 12535 MCHC 33.0 g/dL 2 Unknown COMPLETE BLOOD COUNT 98960 PLT 280 10e9/L 03/20/20 12 Unknown COMPLETE BLOOD COUNT 59379 MPV 10.6 fL 2 Unknown COMPLETE BLOOD COUNT 29500 GIUSEPPE % 61.5 % 2 Unknown COMPLETE BLOOD COUNT 12521 LY % 26.5 % 2 Unknown COMPLETE BLOOD COUNT 06533 MON % 8.8 % 2 Unknown COMPLETE BLOOD COUNT 10118 EOS % 3.0 % 2 Unknown COMPLETE BLOOD COUNT 06987 BASO % 0.2 % 2 Unknown COMPLETE BLOOD COUNT 37933 RDW 15.3 % 2 Unknown COMPLETE BLOOD COUNT 74901 ABS GIUSEPPE 5.97 10e9/L 012 Unknown COMPLETE BLOOD COUNT 20822 ABS LYMPH 2.57 10e9/L 012 Unknown COMPLETE BLOOD COUNT 24512 ABS MONO 0.85 10e9/L 012 Unknown COMPLETE BLOOD COUNT 73588 ABS EOS 0.29 10e9/L 012 Unknown COMPLETE BLOOD COUNT 81180 ABS BASO 0.02 10e9/L 012 Unknown COMPLETE BLOOD COUNT 82944 RDW-SD 50.3 fL 2 Unknown COMPREHENSIVE METABOLIC 95335 AST 16 U/L 2011 Unknown COMPREHENSIVE METABOLIC 41736 ALT 21 IU/L 2011 Unknown COMPREHENSIVE METABOLIC 95906 BUN 15 MG/DL 2011 Unknown COMPREHENSIVE METABOLIC 31705 ALBUMIN 4.3 GM/DL 2011 Unknown COMPREHENSIVE METABOLIC 97114 CHLORIDE 102 MMOL/L 03/20 Unknown COMPREHENSIVE METABOLIC 63558 BILI TOT 0.5 MG/DL 2011 Unknown COMPREHENSIVE METABOLIC 23139 ALK PHOS 60 U/L 2011 Unknown COMPREHENSIVE METABOLIC 44703 SODIUM 135 MMOL/L 03/20 Unknown COMPREHENSIVE METABOLIC 14624 CREATININE 0.94 MG/DL 03/01 Unknown COMPREHENSIVE METABOLIC 53182 CALCIUM 9.0 MG/DL 2011 Unknown COMPREHENSIVE METABOLIC 09766 POTASSIUM 4.4 MMOL/L 03/20 Unknown COMPREHENSIVE METABOLIC 98261 PROT TOT 6.7 GM/DL 2011 Unknown COMPREHENSIVE METABOLIC 10764 Glucose 96 MG/DL 2011 Unknown COMPREHENSIVE METABOLIC 61699 BICARB 25 MMOL/L 2011 Unknown COMPREHENSIVE METABOLIC 20751 ANION GAP 8 MEQ/L 2011 [place] [address] PRO TIME 21.6 SEC 03/20/[place] [address] INR MCMC 1.8 03/20/2012 Unknow n Procedures Procedure Codes Date ROUTINE VENIPUNCTURE CPT-4: 77835 06/19/2018 ASSAY OF FREE THYROXINE CPT-4: 76455 06/19/2018 ASSAY THYROID STIM HORMONE CPT-4: 83879 06/19/2018 COMPREHEN METABOLIC PANEL CPT-4: 62606 06/19/2018 COMPLETE CBC W/AUTO DIFF WBC CPT-4: 31951 06/19/2018 LIPID PANEL CPT-4: 56261 06/19/2018 ASSAY OF PSA TOTAL CPT-4: 96115 06/19/2018 VITAMIN D TOTAL (25 HYDROXY) CPT-4: 91489 06/19/2018 VITAMIN B-12 CPT-4: 82361 06/19/2018 DEXAMETHASONE SODIUM PHOS CPT-4: J1100 08/31/2017 TRIAMCINOLONE ACET INJ NOS CPT-4: J3301 08/31/2017 DRAIN/INJECT JOINT/BURSA CPT-4: 92423 08/31/2017 ROUTINE VENIPUNCTURE CPT-4: 11714 08/01/2017 COMPREHEN METABOLIC PANEL CPT-4: 92740 08/01/2017 LIPID PANEL CPT-4: 62432 08/01/2017 DRAIN/INJECT JOINT/BURSA CPT-4: 94644 09/12/2016 TRIAMCINOLONE ACET INJ NOS CPT-4: J3301 09/12/2016 DEXAMETHASONE SODIUM PHOS CPT-4: J1100 09/12/2016 ROUTINE VENIPUNCTURE CPT-4: 37679 09/09/2016 ASSAY OF FREE THYROXINE CPT-4: 37079 09/09/2016 ASSAY THYROID STIM HORMONE CPT-4: 28755 09/09/2016 COMPREHEN METABOLIC PANEL CPT-4: 66829 09/09/2016 COMPLETE CBC W/AUTO DIFF WBC CPT-4: 39759 09/09/2016 LIPID PANEL CPT-4: 86901 09/09/2016 SPECIAL REPORTS OR FORMS CPT-4: 62378 08/05/2016 ROUTINE VENIPUNCTURE CPT-4: 21581 09/15/2015 COMPREHEN METABOLIC PANEL CPT-4: 16981 09/15/2015 LIPID PANEL CPT-4: 42898 09/15/2015 PRESCRIP TRANSMIT VIA ERX SY CPT-4: G8553 08/31/2015 ROUTINE VENIPUNCTURE CPT-4: 32347 04/14/2015 COMPREHEN METABOLIC PANEL CPT-4: 71247 04/14/2015 LIPID PANEL CPT-4: 33979 04/14/2015 ROUTINE VENIPUNCTURE CPT-4: 92808 11/10/2014 ASSAY OF FREE THYROXINE CPT-4: 41535 11/10/2014 ASSAY THYROID STIM HORMONE CPT-4: 36495 11/10/2014 COMPREHEN METABOLIC PANEL CPT-4: 63716 11/10/2014 COMPLETE CBC W/AUTO DIFF WBC CPT-4: 28689 11/10/2014 LIPID PANEL CPT-4: 34682 11/10/2014 ASSAY OF PSA TOTAL CPT-4: 25531 11/10/2014 ROUTINE VENIPUNCTURE CPT-4: 44725 04/29/2014 COMPREHEN METABOLIC PANEL CPT-4: 93475 04/29/2014 LIPID PANEL CPT-4: 03874 04/29/2014 ROUTINE VENIPUNCTURE CPT-4: 95179 12/18/2013 ASSAY OF FREE THYROXINE CPT-4: 90659 12/18/2013 ASSAY THYROID STIM HORMONE CPT-4: 77277 12/18/2013 COMPREHEN METABOLIC PANEL CPT-4: 57463 12/18/2013 COMPLETE CBC W/AUTO DIFF WBC CPT-4: 75106 12/18/2013 LIPID PANEL CPT-4: 71502 12/18/2013 ASSAY OF PSA TOTAL CPT-4: 45502 12/18/2013 ROUTINE VENIPUNCTURE CPT-4: 83659 07/17/2012 COMPREHEN METABOLIC PANEL CPT-4: 70534 07/17/2012 LIPID PANEL CPT-4: 55540 07/17/2012 ROUTINE VENIPUNCTURE CPT-4: 35966 03/20/2012 COMPLETE CBC W/AUTO DIFF WBC CPT-4: 02635 03/20/2012 RBC SED RATE AUTOMATED CPT-4: 86100 03/20/2012 C-REACTIVE PROTEIN CPT-4: 22226 03/20/2012 COMPREHEN METABOLIC PANEL CPT-4: 06039 03/20/2012 LIPID PANEL CPT-4: 19201 03/20/2012 PROTHROMBIN TIME CPT-4: 85793 03/20/2012 Vital Signs Date Vital 07/01/2019 Blood Pressure 1: 114/80 Code: 8480-6 BMI: 30.4 Code: 53797-2 Heart Rate 1: 72 bpm Height: 6'2" [...] 1: 126/82 Code: 8480-6 BMI: 31.2 Code: 50750-3 Heart Rate 1: 84 bpm Height: 6'2" Respiratory Rate: 20 bpm SpO2: 94% Tempera ture: 37.0 (C) / 98.6 (F) Weight: 243 lbs 03/02/2018 Blood Pressure 1: 122/80 Code: 8480-6 BMI: 30.8 Code: 07195-4 Heart Rate 1: 74 bpm Height: 6'2" Respiratory Rate: 20 bpm SpO2: 95% Tempera ture: 37.1 (C) / 98.8 (F) Weight: 240 lbs 08/31/2017 Blood Pressure 1: 136/90 Code: 8480-6 Heart Rate 1: 76 bpm Respiratory Rate: 20 bpm Temperature: 36.7 (C) / 98.0 (F) Weight: 247 lbs 07/18/2017 Blood Pressure 1: 126/78 Code: 8480-6 BMI: 31.3 Code: 50925-7 Heart Rate 1: 72 bpm Height: 6'2" Respiratory Rate: 20 bpm SpO2: 94% Tempera ture: 37.0 (C) / 98.6 (F) Weight: 244 lbs 04/24/2017 Blood Pressure 1: 152/92 Code: 8480-6 BMI: 31.1 Code: 60572-2 Heart Rate 1: 74 bpm Height: 6'2" Respiratory Rate: 18 bpm SpO2: 98% Tempera ture: 35.9 (C) / 96.6 (F) Weight: 242 lbs 01/04/2017 Blood Pressure 1: 122/70 Code: 8480-6 BMI: 30.4 Code: 25150-9 Heart Rate 1: 88 bpm Height: 6'2" Respiratory Rate: 20 bpm SpO2: 96% Tempera ture: 36.6 (C) / 97.8 (F) Weight: 237 lbs 09/12/2016 Blood Pressure 1: 136/78 Code: 8480-6 Heart Rate 1: 82 bpm Respiratory Rate: 22 bpm SpO2: 94% Temperature: 36.4 (C) / 97.6 (F) We ight: 234 lbs 09/07/2016 Blood Pressure 1: 122/70 Code: 8480-6 BMI: 30.0 Code: 82112-1 Heart Rate 1: 88 bpm Height: 6'2" Respiratory Rate: 20 bpm SpO2: 94% Tempera ture: 36.6 (C) / 97.9 (F) Weight: 234 lbs 08/31/2015 Blood Pressure 1: 142/94 Code: 8480-6 BMI: 28.9 Code: 16966-0 Heart Rate 1: 92 bpm Height: 6'2" Respiratory Rate: 20 bpm Temperature: 36 .9 (C) / 98.5 (F) Weight: 225 lbs 04/14/2015 Blood Pressure 1: 126/80 Code: 8480-6 BMI: 28.0 Code: 92502-0 Heart Rate 1: 76 bpm Height: 6'2" Respiratory Rate: 20 bpm Temperature: 36 .6 (C) / 97.8 (F) Weight: 218 lbs 10/07/2014 Blood Pressure 1: 128/76 Code: 8480-6 BMI: 28.6 Code: 45830-1 Heart Rate 1: 84 bpm Height: 6'2" Respiratory Rate: 22 bpm Temperature: 36 .6 (C) / 97.9 (F) Weight: 223 lbs 05/01/2014 Blood Pressure 1: 126/68 Code: 8480-6 BMI: 28.2 Code: 73444-7 Heart Rate 1: 84 bpm Height: 6'2" Respiratory Rate: 20 bpm Temperature: 36 .8 (C) / 98.3 (F) Weight: 220 lbs 12/17/2013 Blood Pressure 1: 136/82 Code: 8480-6 BMI: 29.6 Code: 64208-8 Heart Rate 1: 76 bpm Height: 6'1" Respiratory Rate: 20 bpm Temperature: 36 .8 (C) / 98.2 (F) Weight: 224 lbs 12/11/2012 Blood Pressure 1: 122/86 Code: 8480-6 BMI: 30.5 Code: 11243-1 Heart Rate 1: 76 bpm Height: 6'1" Respiratory Rate: 20 bpm SpO2: 93% Tempera ture: 36.8 (C) / 98.2 (F) Weight: 231 lbs 12/04/2012 Blood Pressure 1: 124/86 Code: 8480-6 BMI: 30.5 Code: 07483-2 Heart Rate 1: 68 bpm Height: 6'1" Respiratory Rate: 20 bpm SpO2: 95% Tempera ture: 36.6 (C) / 97.8 (F) Weight: 231 lbs 08/14/2012 Blood Pressure 1: 126/70 Code: 8480-6 BMI: 29.4 Code: 04664-5 Heart Rate 1: 80 bpm Height: 6'1" Respiratory Rate: 20 bpm Temperature: 36 .8 (C) / 98.3 (F) Weight: 223 lbs 07/17/2012 Blood Pressure 1: 124/82 Code: 8480-6 BMI: 29.7 Code: 32092-3 Heart Rate 1: 80 bpm Height: 6'1" Respiratory Rate: 20 bpm Temperature: 36 .8 (C) / 98.2 (F) Weight: 225 lbs 03/20/2012 Blood Pressure 1: 124/78 Code: 8480-6 BMI: 29.3 Code: 11265-1 Heart Rate 1: 72 bpm Height: 6'1" Respiratory Rate: 20 bpm Temperature: 36 .6 (C) / 97.8 (F) Weight: 222 lbs 12/08/2011 Blood Pressure 1: 112/64 Code: 8480-6 BMI: 28.2 Code: 39683-0 Heart Rate 1: 78 bpm Height: 6'1" Temperature: 36.3 (C) / 97.4 (F) Weight: 214 lbs 08/11/2011 Blood Pressure 1: 128/70 Code: 8480-6 BMI: 27.6 Code: 08314-4 Heart Rate 1: 76 bpm Height: 6'1" [...] 06/19/2018 Medication Monitoring 03/02/2018 Medication Monitoring 02/01/2018 JENNIEOS UA Performed wrist pain 08/31/2017 lab draw [...] it Encounters Encounter Performer Location Codes Date ([id number]) OFFICE/OUTPATIENT VISIT EST Diagnosis: Cephalgia[ICD10: R51] Diagnosis: Family history of brain aneurysm[ICD10: Z82.49] Diagnosis: Other intervertebral disc degeneration, 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] Martita MCGOVERN [employer] CPT-4: 75411 07/01/2019 ([id number]) OFFICE/OUTPATIENT VISIT EST Diagnosis: 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] Diagnosis: Bilateral primary osteoarthritis of knee[ICD10: M17.0] Diagnosis: Nicotine dependence, unspecified, uncomplicated[ICD10: F17.200] Diagnosis: Mixed hyperlipidemia[ICD10: E78.2] Martita RENTERIA Otelic CPT-4: 66518 03/27/2019 ([id number]) OFFICE/OUTPATIENT VISIT EST Diagnosis: Mixed hyperlipidemia[ICD10: E78.2] Diagnosis: 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] Diagnosis: Other intervertebral disc degeneration, 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] Martita MCGOVERN [employer] CPT-4: 43810 12/25/2018 ([id number]) OFFICE/OUTPATIENT VISIT EST Diagnosis: Mixed hyperlipidemia[ICD10: E78.2] Diagnosis: Other fatigue[ICD10: R53.83] Diagnosis: Encounter for screening for malignant neoplasm of prostate[ICD10: Z12.5] Diagnosis: Primary osteoarthritis, 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] Diagnosis: Pain in thoracic spine[ICD10: M54.6] Martita FISCHER [employer] CPT-4: 89026 06/19/2018 ([id number]) OFFICE/OUTPATIENT VISIT EST Diagnosis: Encounter for therapeutic drug level monitoring[ICD10: Z51.81] Diagnosis: Pain in 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: M25.531] Diagnosis: Pain in right knee[ICD10: M25.561] Diagnosis: Pain in left knee[ICD10: M25.562] Marian SIMONS [facility] CPT-4: 50906 03/02/2018 ([id number]) OFFICE/OUTPATIENT VISIT EST Diagnosis: Mixed hyperlipidemia[ICD10: E78.2] Martita HUERTAS MYRA SIMONS [facility] CPT-4: 17263 08/01/2017 ([id number]) OFFICE/OUTPATIENT VISIT EST Diagnosis: Other spondylosis with radiculopathy, cervical region[ICD10: M47.22] Diagnosis: Pain in 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: M25.531] Diagnosis: Mixed hyperlipidemia[ICD10: E78.2] Diagnosis: 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] Martita Kristyn FERRARALINE Sofia SIMONS [facility] CPT-4: 9921 3 07/18/2017 ([id number]) OFFICE/OUTPATIENT VISIT EST Diagnosis: Other intervertebral disc degeneration, 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] Diagnosis: Cervicalgia[ICD10: M54.2] Martita Kristyn FERRARALINE Sofia YOUNG [facility] CPT-4: 73290 04/24/2017 ([id number]) OFFICE/OUTPATIENT VISIT EST Diagnosis: Cervicalgia[ICD10: M54.2] Diagnosis: Other intervertebral disc degeneration, 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] Diagnosis: Mixed hyperlipidemia[ICD10: E78.2] Martita HUERTAS MYRA SIMONS [facility] CPT-4: 83198 01/04/2017 ([id number]) OFFICE/OUTPATIENT VISIT EST Diagnosis: Mixed hyperlipidemia[ICD10: E78.2] Diagnosis: Encounter for general adult medical examination with abnormal findings[ICD10: Z00.01] Martita Givensodilon FERRARAMARTITA Sofia SIMONS [facility] CPT-4: 98634 09/09/2016 ([id number]) PREV VISIT EST AGE 40-64 Diagnosis: Mixed hyperlipidemia[ICD10: E78.2] Diagnosis: Nicotine dependence, unspecified, uncomplicated[ICD10: F17.200] Diagnosis: Chronic obstructive pulmonary disease with acute lower respiratory infection[ICD10: J44.0] Diagnosis: Bilateral primary osteoarthritis of knee[ICD10: M17.0] Diagnosis: Pain in thoracic spine[ICD10: M54.6] Diagnosis: Pain in 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: M25.531] Diagnosis: Encounter for general adult medical examination with abnormal findings[ICD10: Z00.01] Martita SIMONS [facility] CPT-4: 04859 09/07/2016 ([id number]) OFFICE/OUTPATIENT VISIT EST Diagnosis: Mixed hyperlipidemia[ICD10: E78.2] Martita SIMONS [facility] CPT-4: 21730 09/15/2015 ([id number]) OFFICE/OUTPATIENT VISIT EST Diagnosis: Acute bronchitis, unspecified[ICD10: J20.9] Diagnosis: Chronic obstructive pulmonary disease with acute lower respiratory infection[ICD10: J44.0] Diagnosis: Lumbago with sciatica, right side[ICD10: M54.41] Martita FERRARALINE Sofia SIMONS [facility] CPT-4: 54675 08/31/2015 ([id number]) OFFICE/OUTPATIENT VISIT EST Diagnosis: HYPERLIPIDEMIA NEC/NOS[ICD9: 272.4] Diagnosis: TOBACCO USE DISORDER[ICD9: 305.1] Diagnosis: Osteoarthritis, knee[ICD9: 715.96] Diagnosis: Chronic back pain[ICD9: 724.5] Martita SIMONS [facility] CPT-4: 67527 04/14/2015 ([id number]) OFFICE/OUTPATIENT VISIT EST Diagnosis: HYPERLIPIDEMIA NEC/NOS[ICD9: 272.4] Diagnosis: COPD[ICD9: 496] Diagnosis: ROUTINE MEDICAL EXAM[ICD9: V70.0] Martita Valdezjessieodilon FERRARADAVID Lam Sofia SIMONS [facility] CPT-4: 34622 11/10/2014 ([id number]) OFFICE/OUTPATIENT VISIT EST Diagnosis: Wrist pain[ICD9: 719.43] Diagnosis: Knee osteoarthritis[ICD9: 715.96] Diagnosis: Chronic back pain[ICD9: 724.5] Martitakurtis Valdezjessieodilon FERRARAMARTITA Ana SIMONS [facility] CPT-4: 69766 10/07/2014 ([id number]) OFFICE/OUTPATIENT VISIT EST Diagnosis: HYPERLIPIDEMIA NEC/NOS[ICD9: 272.4] Diagnosis: Chronic back pain[ICD9: 724.5] Diagnosis: OSTEOARTH NOS-L/LEG[ICD9: 715.96] Martita SIMONS DO [employer] CPT-4: 76281 05/01/2014 ([id number]) OFFICE/OUTPATIENT VISIT EST Diagnosis: HYPERLIPIDEMIA NEC/NOS[ICD9: 272.4] Martita SIMONS DO [facility] CPT-4: 80723 04/29/2014 ([id number]) OFFICE/OUTPATIENT VISIT EST Diagnosis: ROUTINE MEDICAL EXAM[ICD9: V70.0] Diagnosis: HYPERLIPIDEMIA NEC/NOS[ICD9: 272.4] Martita SIMONS [facility] CPT-4: 91548 12/18/2013 OFFICE/OUTPATIENT VISIT EST Diagnosis: HYPERLIPIDEMIA NEC/NOS[ICD9: 272.4] Diagnosis: COPD[ICD9: 496] Diagnosis: Knee pain[ICD9: 719.46] Diagnosis: Wrist pain[ICD9: 719.43] aMrtita ROMERO [facility] CPT-4: 84027 12/17/2013 OFFICE/OUTPATIENT VISIT EST Diagnosis: COPD W/ ACUTE EXACERB[ICD9: 491.21] Diagnosis: COUGH[ICD9: 786.2] Martita SIMONS [facility] CPT-4: 99004 12/11/2012 ([id number]) OFFICE/OUTPATIENT VISIT EST Diagnosis: BRONCHITIS, ACUTE[ICD9: 466.0] Diagnosis: COPD exacerbation[ICD9: 491.21] Martita SIMONS [facility] CPT-4: 19406 12/04/2012 ([id number]) OFFICE/OUTPATIENT VISIT EST Diagnosis: DERMATITIS NOS[ICD9: 692.9] Diagnosis: TOBACCO USE DISORDER[ICD9: 305.1] Martita Valdezjessieodilon SIMONS [facility] CPT-4: 02039 08/14/2012 ([id number]) OFFICE/OUTPATIENT VISIT EST Diagnosis: TOBACCO USE DISORDER[ICD9: 305.1] Diagnosis: PAIN, LOWER BACK[ICD9: 724.2] Diagnosis: PAIN IN THORACIC SPINE[ICD9: 724.1] Diagnosis: DERMATITIS NOS[ICD9: 692.9] Diagnosis: HYPERLIPIDEMIA NEC/NOS[ICD9: 272.4] Martita José Migueljessieodilon KYLAH BAILEE SIMONS [facility] CPT-4: 76324 07/17/2012 ([id number]) OFFICE/OUTPATIENT VISIT EST Diagnosis: HYPERLIPIDEMIA NEC/NOS[ICD9: 272.4] Diagnosis: OSTEOARTH NOS-L/LEG[ICD9: 715.96] Diagnosis: JOINT PAIN-L/LEG[ICD9: 719.46] Diagnosis: AC EMBL SUPRFCL UP EXT[ICD9: 453.81] Martita SLAUGHTERQUE AALIYAH Sofia SIMONS [facility] CPT-4: 89893 03/20/2012 ([id number]) OFFICE/OUTPATIENT VISIT EST Diagnosis: PAIN, LOWER BACK[ICD9: 724.2] Diagnosis: Superficial venous thrombosis of arm[ICD9: 453.81] Diagnosis: Trigger finger, left[ICD9: 727.03] Martita RENTERIA Sofia SIMONS [facility] CPT-4: 44992 12/08/2011 OFFICE/OUTPATIENT VISIT EST Diagnosis: Knee pain[ICD9: 719.46] Diagnosis: Knee osteoarthritis[ICD9: 715.96] Diagnosis: Thoracic back pain[ICD9: 724.1] Diagnosis: HYPERLIPIDEMIA NEC/NOS[ICD9: 272.4] Martita MOROCHO Sofia SIMONS [facility] CPT-4: 58098 08/11/2011 ([id number]) OFFICE/OUTPATIENT VISIT, NEW Martita José Migueljessieodilon SLAUGHTER KURTIS Sofia SIMONS [facility] CPT-4: 99833 05/26/2010 Plan of Care Planned Activity Notes [...] : R51 07/01/2019 Appointment: Martita Simons WPtel: [address] [place], [place] [phone] MEDICATION REVIEW 07/01/2019 Visit Diagnosis Plan: Mixed hyperlipidemia Discussion: Had lab done in December with Cardiology ICD-9 : 272.4 ICD-10 : E78.2 03/27/2019 Visit Diagnosis Plan: Nicotine dependence, unspecified , uncomplicated Discussion: Smoking cessation ICD-9 : 305.1 ICD-10 : F17.200 03/27/2019 Visit Diagnosis Plan: 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 Discussion: Discussed cardiac rehab vs p ulmonary rehab Follow Up: 3 months ICD-9 : 414.00 ICD-10 : I25.10 03/27/2019 Appointment: Martita Simons WPtel: [address] [place], [place] [phone] MEDICATION REVIEW 03/27/2019 Visit Diagnosis Plan: Other intervertebral disc degene ration, lumbar region Discussion: Stable on hydrocodone UDS done Follow Up: 3 months ICD-9 : 722.52 ICD-10 : M51.36 12/25/2018 Visit Diagnosis Plan: 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 Discussion: Smoking Cessation Continue c urrent meds and fwup with cardiology ICD-9 : 414.00 ICD-10 : I25.10 12/25/2018 Appointment: Martita Simons WPtel: [address] [place], [place] [phone] MEDICATION REVIEW 12/25/2018 Appointment: Martita Simons WPtel: [address] [place], [place] [phone] OFFICE SURGERY 08/22/2018 Visit Diagnosis Plan: Pain [...] : M19.031 06/19/2018 Appointment: Martita Simons WPtel: [address] [place], [place] [phone] [place] MEDICATION REVIEW 06/19/2018 Appointment: Martita Simons WPtel: [address] [place], [place] [phone] [place] CANCELED 06/05/2018 Appointment: Martita Simons WPtel: [address] [place], [place] [phone] [place] CANCELED 05/08/2018 Visit Diagnosis Plan: Pain [...] ICD-10 : M25.561 03/02/2018 Appointment: Marian Juares [address] [place], [place] [phone] MEDICATION REVIEW 03/02/2018 Patient Education: Patient Medication Summary Completed 03/02/2018 Appointment: Martita Simons WPtel: [address] [place], [place] [phone] [place] UA 02/01/2018 Patient Education: Patient Medication Summary Completed 02/01/2018 Visit Diagnosis Plan: Other synovitis and tenosynoviti s, right hand Discussion: Right wrist cleansed with alcohol and betadine and injected laterally with 1cc 1% lidocaine with 20mg kenalog and 2mg dexamethasone, tolerated well with no complications, neosporin and bandage applied ICD-9 : 727.05 ICD-10 : M65.841 08/31/2017 Appointment: Martita Simons WPtel: [address] [place], [place] [phone] ACUTE ILLNESS 08/31/2017 Patient Education: Patient Medication Summary Completed 08/31/2017 Appointment: Martita Simons WPtel: [address] [place], [place] [phone] LAB 08/01/2017 Patient Education: Patient Medication Summary [...] : M47.22 07/18/2017 Appointment: Martita Simons WPtel: [address] [place], [place] [phone] MEDICATION REVIEW 07/18/2017 Patient Education: Patient Medication Summary Completed 07/18/2017 Visit Diagnosis Plan: Cervicalgia Discussion: Continue PT then fwup after done with PT ICD-9 : 723.1 ICD-10 : M54.2 04/24/2017 Visit Diagnosis Plan: Other intervertebral disc degene ration, lumbar region Discussion: Add PT For lumbar spine ICD-9 : 722.52 ICD-10 : M51.36 04/24/2017 Appointment: Martita Simons WPtel: [address] [place], [place] [phone] [place] MEDICATION REVIEW 04/24/2017 Patient Education: Patient Medication Summary Completed 04/24/2017 Patient Education: Patient Medication Summary Completed 03/22/2017 Care Plan: MRI NECK SPINE W/O DYE LOINC : 62832-6 Pending 03/22/2017 Visit Diagnosis Plan: Mixed hyperlipidemia [...] : M51.36 01/04/2017 Appointment: Martita Simons WPtel: [address] [place], [place] [phone] [place] 01/03 lm`sl 01/03-Confirmed MEDICATION REVIEW 01/04/2017 Patient Education: Patient Medication Summary Completed 01/04/2017 Visit Diagnosis Plan: Other enthesopathies, not elsewh ere classified Discussion: Right wrist injection as above ICD-9 : 727.05 ICD-10 : M77.8 09/12/2016 Visit Diagnosis Plan: Mixed hyperlipidemia Discussion: Lab discussed Restart lipitor/lifestyle change ICD-9 : 272.4 ICD-10 : E78.2 09/12/2016 Appointment: Martita Simons WPtel: [address] [place], [place] [phone] [place] 09/12 confirmed `sl INJECTION 09/12/2016 Patient Education: Patient Medication Summary Completed 09/12/2016 Appointment: Martita Simons WPtel: [address] [place], [place] [phone] [place] LAB 09/09/2016 Patient Education: Patient Medication Summary Completed 09/09/2016 Visit Diagnosis Plan: Nicotine dependence, unspecified , uncomplicated Discussion: Tobacco Abuse ICD-9 : 305.1 ICD-10 : F17.200 09/07/2016 Visit Diagnosis Plan: Chronic obstructiv e pulmonary disease with acute lower respiratory infection Discussion: Smoking Cessation Symbicort Check CXR ICD-9 : 496 ICD-10 : J44.0 09/07/2016 Visit Diagnosis Plan: Encounter for [facility] adult medical examination with abnormal findings Discussion: Update fasting lab Follow Up: 4 months ICD-9 : V70.0 ICD-10 : Z00.01 09/07/2016 Visit Diagnosis Plan: Mixed hyperlipidemia Discussion: Check CMP, Lipids ICD-9 : 272.4 ICD-10 : E78.2 09/07/2016 Visit Diagnosis Plan: Pain in right wrist Discussion: Will return for wrist injection ICD-9 : 719.43 ICD-10 : M25.531 09/07/2016 Appointment: Martita Simons WPtel: [address] [place], [place] [phone] 09/06 confirmed~ Annual Well Visit 09/07/2016 Patient Education: Patient Medication Summary Completed 09/07/2016 Care Plan: CHEST X-RAY 2VW FRONTAL&LATL LOINC : 64073-9 Pending 09/07/2016 Visit Plan[facility] 08/05/2016 Patient Education: Patient Medication Summary Completed 08/05/2016 Appointment: Martita Simons WPtel: [address] [place], [place] [phone] [place] UA 04/25/2016 Patient Education: Patient Medication Summary Completed 04/25/2016 Appointment: Martita Simons WPtel: [address] [place], [place] [phone] [place] LAB 09/15/2015 Patient Education: Patient Medication Summary Completed 09/15/2015 Visit Plan: SVN with Albuterol 0.083% Q4 hrs and Q2hrs prn. Supportive care. Rest, Fluids, Tylenol/Motrin prn fever or bodyaches. Notify if worsening symptoms. Daily back stretches, moist heat, Biofreeze prn Flexeril/Prednisone Notify if low back pain persists--will need x-rays Patient seeing Chiropracter [employer] 08/31/2015 Appointment: Martita Simons WPtel: [address] [place], [place] [phone] 08/28/15 vm cn 08/28/15 appt confirmed cn FOLLOW UP 08/31/2015 Patient Education: Patient Medication Summary Completed 08/31/2015 Appointment: Martita Simons WPtel: [address] [place], [place] [phone] UA 07/29/2015 Visit Plan: CMP, Lipids today Patient st opped chol meds 1week ago Continue hydrocodone 04/14/2015 Appointment: Martita Simons WPtel: [address] [place], [place] [phone] FOLLOW UP 04/14/2015 Patient Education: Patient Medication Summary Completed 04/14/2015 Appointment: Martita Simons WPtel: [address] [place], [place] [phone] LAB 11/10/2014 Patient Education: Patient Medication Summary Completed 11/10/2014 Visit Plan: Fasting lab at end of September for Lipids/LFTs Continue hydrocodone at current dose Needs to be on low dose asprin 81mg daily With upcoming trip need to stop every 2hours and get out and stretch 10/07/2014 Appointment: Martita Simonstel: [address] [place], [place] [phone] FOLLOW UP 10/07/2014 Patient Education: Patient Medication Summary Completed 10/07/2014 Visit Plan: Lab discussed Will keep meds the same Keep hydrocodone at current dose--discussed schedule change on May 05 05/01/2014 Appointment: Martita Simonstel: [address] [place], [place] [phone] 04/29 confirmed when in for labs; asked if he still wanted a reminder call on Monday and he said no he would be here. FOLLOW UP 05/01/2014 Patient Education: Patient Medication Summary Completed 05/01/2014 Appointment: Martita Simonstel: [address] [place], [place] [phone] [place] LAB 04/29/2014 Patient Education: Patient Medication Summary Completed 04/29/2014 Appointment: Martita Simons WPtel: [address] [place], [place] [phone] LAB 12/18/2013 Patient Education: Patient Medication Summary Completed 12/18/2013 Appointment: Martita Simons WPtel: [address] [place], [place] [phone] 12/16 FOLLOW UP 12/17/2013 Patient Education: Patient Medication Summary Completed 12/17/2013 Visit Plan: Check CXR Start SVNs with al buterol 0.083% QID 12/11/2012 Appointment: Martita Simons WPtel: [address] [place] [address] FOLLOW UP 12/11/2012 Patient Education: Patient Medication Summary Completed 12/11/2012 Visit Plan: Zithromax for 1wk Prednisone for 1wk Symbicort 160/4.5 2p BID 12/04/2012 Appointment: Martita Simons WPtel: [address] [place] [address] ACUTE ILLNESS 12/04/2012 Patient Education: Patient Medication Summary Completed 12/04/2012 Visit Plan: Continue nystatin/TAC cream and add Lamisil for next month No lipitor for next month If rash persists then will need biopsy Trial of chantix--warned of suicidal ideation/depression Call in 1mo on finger lesion and chantix 08/14/2012 Appointment: Martita Simons WPtel: [address] [place] [address] 08/13 no answer...08/13 pt called back and confirmed OFFICE SURGERY 08/14/2012 Patient Education: Patient Medication Summary Completed 08/14/2012 Appointment: Martita Simons WPtel: [address] [place], [place] [phone] FOLLOW UP 07/17/2012 Patient Education: Patient Medication Summary Completed 07/17/2012 Appointment: Martita Simons WPtel: [address] [place] [address] Appointment was confirmed by CN on 06/29 12/5 pt called, in family, was in [place] just got yash k / - [facility] ACUTE ILLNESS 07/02/2012 Visit Plan: Obtain US results of RUE DC coumadin as has been 3mos and start Aspirin 325mg daily Check CMP, Lipids, CBC, ESR, CRP today 03/20/2012 Appointment: Martita Simons WPtel: [address] [place], [place] [phone] FOLLOW UP 03/20/2012 Patient Education: Patient Medication Summary Completed 03/20/2012 Appointment: Martita Simons WPtel: [address] [place] [address] Patient called 2 hours past appt. Said saw a specialist today and specialist is not concerned about blod clot so doesnt want to reschedule-CN FOLLOW UP 12/14/2011 Appointment: Martita Simons WPtel: [address] [place], [place] [address] FOLLOW UP 12/13/2011 Visit Plan: Continue coumadin--IM is fol lowing level--discussed will likely need 6-12wks Observe contusion to right lower back Fwup with ortho as scheduled 12/08/2011 Appointment: Martita Simons WPtel: [address] [place], [place] [phone] 12/08/2011 Patient Education: Patient Medication Summary Completed 12/08/2011 Visit Plan: Check fasting lab when goes for pre-op lab including CMP, CBC, Lipids, TSH, Free T4, PSA, uric acid Needs colonoscopy Hydrocodone refilled #80 to [facility] 08/11/2011 Appointment: Martita Simons WPtel: [address] [place], [place] [address] [place] ESTABLISHED PATIENT 08/11/2011 Patient Education: Patient Medication Summary Completed 08/11/2011 Visit Plan: Obtain most recent lab resul ts Cont current meds Explained that cannot refill pain meds without current rx Discussed Synvisc injections and see ortho as oxycontin for knee arthritis is strong pain med 05/26/2010 Appointment: Martita Simons WPtel: [phone] [phone] NEW PATIENT 05/26/2010 Patient Education: Patient Medication Summary Completed 05/26/2010 Instructions Comment . Filled out [employer] Paperwork . SVN with Albuterol 0.083% Q4hrs [...] acid Needs colonoscopy [facility] . Obtain most recent lab results Cont [...]
--- OUTSIDE RECORDS SUMMARY | 2020-01-12 17:46 | XMS REPORT | CCD ---
Author Author Syd Simons D.O. 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 Name Role Phone Martita Simons D.O., PP Unavailable CCM Unavailable Summary Purpose Interface Exchange Insurance Providers Payer name Policy type / Coverage type Covered alliance party ID Effective Begin Date Effective End Date Located Within [facility] VCharge Insurance [id number] Unknown Family history Brother Diagnosis Age At Onset No Family Disease Entered N/A Father Diagnosis Age At Onset No Family Disease Entered N/A Mother Diagnosis Age At Onset No Family Disease Entered N/A Social History Social History Element Codes Description Effective Dates Tobacco history SNOMED CT: 77658041 Current every day smoker 08/11/2011 Number of cigarettes/day Unknown 20 (One Pack) 08/11/2011 Marital status Unknown M arried 05/26/2010 Number of children Unknown 4 05/26/2010 Employment Unknown Curre ntly unemployed 05/26/2010 Allergies, Adverse Reactions, Alerts Substance Reaction Codes Entered Date Inactivated Date Status * NO KNOWN DRUG DONALDO RGIES Unknown 05/26/2010 No Inactive Date Active * NO KNOWN ENVIRONME NTAL ALLERGIES Unknown 05/26/2010 No Inactive Date Active * NO KNOWN FOOD DONALDO RGIES Unknown 05/26/2010 No Inactive Date Active Past Medical History Illness Codes Condition Status Onset Date Resolved Date Atherosclerotic hear t disease of [place] coronary artery without angina pectoris ICD-9: 414.00 ICD-10: I25.10 Active 12/25/2018 Unknown Bilateral primary os teoarthritis of knee ICD-9: 715.96 ICD-10: M17.0 Active 05/01/2014 Unknown Mixed hyperlipidemia ICD-9: 272.4 ICD-10: E78.2 Active 12/17/2013 Unknown Nicotine dependence, unspecified, uncomplicated ICD-9: 305.1 ICD-10: F17.200 Active 09/07/2016 Unknown Other intervertebral disc degeneration, lumbar region ICD-9: 722.52 ICD-10: M51.36 Active 01/04/2017 Unknown Encounter for screen ing for malignant neoplasm of prostate ICD-9: V76.44 ICD-10: Z12.5 Active 06/19/2018 Unknown Other fatigue ICD-9: 780.79 ICD-10: R53.83 Active 06/19/2018 Unknown Pain in thoracic spine ICD-9: 724.1 ICD-10: M54.6 Active 09/07/2016 Unknown Primary osteoarthrit is, right wrist ICD-9: 715.93 ICD-10: M19.031 Active 09/12/2016 Unknown Encounter for therap eutic drug level monitoring ICD-9: V58.83 ICD-10: Z51.81 Active 04/24/2016 Unknown Pain in left knee ICD-9: 719.46 ICD-10: M25.562 Active 12/17/2013 Unknown Pain in right knee ICD- 9: 719.46 ICD-10: M25.561 Active 12/17/2013 Unknown Pain in right wrist ICD- 9: 719.43 ICD-10: M25.531 Active 09/07/2016 Unknown Other synovitis and tenosynovitis, right hand ICD-9: 727.05 ICD-10: M65.841 Active 08/31/2017 Unknown Primary osteoarthrit is, right wrist ICD-9: 716.93 ICD-10: M19.031 Active 08/31/2017 Unknown Benign lipomatous ne oplasm of skin and subcutaneous tissue of trunk ICD-9: 214.1 ICD-10: D17.1 Active 07/18/2017 Unknown Other spondylosis wi th radiculopathy, cervical region ICD-9: 721.0 ICD-10: M47.22 Active 07/18/2017 Unknown Cervicalgia ICD-9: 723.1 ICD-10: M54.2 Active 01/04/2017 Unknown Other enthesopathies , not elsewhere classified ICD-9: 727.05 ICD-10: M77.8 Active 09/12/2016 Unknown Encounter for genera l adult medical examination with abnormal findings ICD-9: V70.0 ICD-10: Z00.01 Active 09/07/2016 Unknown Chronic obstructive pulmonary disease with acute lower respiratory infection ICD-9: 496 ICD-10: J44.0 Active 12/17/2013 Unknown Dorsalgia, unspecified ICD-9: 724.5 ICD-10: M54.9 Active 05/01/2014 Unknown Lumbago with sciatic a, right side ICD-9: 724.2 ICD-10: M54.41 Active 12/08/2011 Unknown Acute bronchitis, un specified ICD-9: 466.0 ICD-10: J20.9 Active 12/04/2012 Unknown TOBACCO USE DISORDER ICD-9: 305.1 Active 04/14/2015 Unknown Chronic back pain ICD-9: 724.5 Active 05/01/2014 Unknown OSTEOARTH NOS-L/LEG ICD- 9: 715.96 Active 05/01/2014 Unknown ROUTINE MEDICAL EXAM ICD-9: V70.0 Active 12/18/2013 Unknown COPD ICD-9: 496 Active 12/17/2013 Unknow n HYPERLIPIDEMIA NEC/NOS ICD-9: 272.4 Active 12/17/2013 Unknown Knee pain ICD-9: 719.46 Active 12/17/2013 Unknow n Wrist pain ICD-9: 719.43 Active 12/17/2013 Unknow n COUGH ICD-9: 786.2 Active 12/11/2012 Unknow n BRONCHITIS, ACUTE ICD-9: 466.0 Active 12/04/2012 Unknown COPD exacerbation ICD-9: 491.21 Active 12/04/2012 Unknown DERMATITIS NOS ICD-9: 692.9 Active 07/17/2012 Unknown PAIN, LOWER BACK ICD-9: 724.2 Active 12/08/2011 Unknown Superficial venous t hrombosis of arm ICD-9: 453.81 Active 04/2012 Unknown Trigger finger, left ICD-9: 727.03 Active 12/08/2011 Unknown Thoracic back pain ICD- 9: 724.1 Active 08/11/2011 Unknown Chronic Back Pain Unknown Active 05/26/2010 Unknown Hyperlipidemia Unknown Active 05/26/2010 Unknow n Osteoarthritis Unknown Active 05/26/2010 Unknow n Tobacco abuse Unknown Active 05/26/2010 Unknow n Problems Condition Codes Effectiv e Dates Condition Status Atherosclerotic hear t disease of [place] coronary artery without angina pectoris ICD-9: 414.00 ICD-10: I25.10 12/25/2018 Active Bilateral primary os teoarthritis of knee ICD-9: 715.96 ICD-10: M17.0 05/01/2014 Active Mixed hyperlipidemia ICD-9: 272.4 ICD-10: E78.2 12/17/2013 Active Nicotine dependence, unspecified, uncomplicated ICD-9: 305.1 ICD-10: F17.200 09/07/2016 Active Other intervertebral disc degeneration, lumbar region ICD-9: 722.52 ICD-10: M51.36 01/04/2017 Active Encounter for screen ing for malignant neoplasm of prostate ICD-9: V76.44 ICD-10: Z12.5 06/19/2018 Active Other fatigue ICD-9: 780.79 ICD-10: R53.83 06/19/2018 Active Pain in thoracic spine ICD-9: 724.1 ICD-10: M54.6 09/07/2016 Active Primary osteoarthrit is, right wrist ICD-9: 715.93 ICD-10: M19.031 09/12/2016 Active Encounter for therap eutic drug level monitoring ICD-9: V58.83 ICD-10: Z51.81 04/24/2016 Active Pain in left knee ICD-9: 719.46 ICD-10: M25.562 12/17/2013 Active Pain in right knee ICD- 9: 719.46 ICD-10: M25.561 12/17/2013 Active Pain in right wrist ICD- 9: 719.43 ICD-10: M25.531 09/07/2016 Active Other synovitis and tenosynovitis, right hand ICD-9: 727.05 ICD-10: M65.841 08/31/2017 Active Primary osteoarthrit is, right wrist ICD-9: 716.93 ICD-10: M19.031 08/31/2017 Active Benign lipomatous ne oplasm of skin and subcutaneous tissue of trunk ICD-9: 214.1 ICD-10: D17.1 07/18/2017 Active Other spondylosis wi th radiculopathy, cervical region ICD-9: 721.0 ICD-10: M47.22 07/18/2017 Active Cervicalgia ICD-9: 723.1 ICD-10: M54.2 01/04/2017 Active Other enthesopathies , not elsewhere classified ICD-9: 727.05 ICD-10: M77.8 09/12/2016 Active Encounter for genera l adult medical examination with abnormal findings ICD-9: V70.0 ICD-10: Z00.01 09/07/2016 Active Chronic obstructive pulmonary disease with acute lower respiratory infection ICD-9: 496 ICD-10: J44.0 12/17/2013 Active Dorsalgia, unspecified ICD-9: 724.5 ICD-10: M54.9 05/01/2014 Active Lumbago with sciatic a, right side ICD-9: 724.2 ICD-10: M54.41 12/08/2011 Active Acute bronchitis, un specified ICD-9: 466.0 ICD-10: J20.9 12/04/2012 Active TOBACCO USE DISORDER ICD-9: 305.1 04/14/2015 Active Chronic back pain ICD-9: 724.5 05/01/2014 Active OSTEOARTH NOS-L/LEG ICD- 9: 715.96 05/01/2014 Active ROUTINE MEDICAL EXAM ICD-9: [...] BACK ICD-9: 724.2 12/08/2011 Active Superficial venous t hrombosis of arm ICD-9: 453.81 12/08/2011 Active Trigger finger, left ICD-9: 727.03 12/08/2011 Active Thoracic back pain ICD- 9: 724.1 08/11/2011 Active Chronic Back Pain Unknown 05/26/2010 Active Hyperlipidemia Unknown 05/26/2010 Active Osteoarthritis Unknown 05/26/2010 Active Tobacco abuse Unknown 05/26/2010 Active Medications Medication Codes Instruc tions Start Date Stop Date Sta tus Fill Instructions hydrocodone 10 mg-ac etaminophen 325 mg tablet RxNorm: 485966 1 Tablet(s) PO Q6H as needed for pain 02/25/2019 No Stop Date Active (Response to an electronic c ontrolled substance refill request - RxReferenceNumber: [id number]|1|0|1) hydrocodone 10 mg-ac etaminophen 325 mg tablet RxNorm: 888627 1 Tablet(s) PO Q6H as needed for pain 11/26/2018 02/24/2019 Inactive (Response to an electronic controlled substance refill request - RxReferenceNumber: [id number]|1|0|1) hydrocodone 10 mg-ac etaminophen 325 mg tablet RxNorm: 448663 1 Tablet(s) PO Q6H as needed for pain 10/30/2018 11/25/2018 Inactive (Response to an electronic controlled substance refill request - RxReferenceNumber: [id number]|1|0|1) hydrocodone 10 mg-ac etaminophen 325 mg tablet RxNorm: 059983 1 Tablet(s) PO Q6H as needed for pain 09/26/2018 10/29/2018 Inactive (Response to an electronic controlled substance refill request - RxReferenceNumber: [id number]|1|0|1) hydrocodone 10 mg-ac etaminophen 325 mg tablet RxNorm: 342280 1 Tablet(s) PO Q6H as needed for pain 08/30/2018 09/25/2018 Inactive (Response to an electronic controlled substance refill request - RxReferenceNumber: [id number]|1|0|1) hydrocodone 10 mg-ac etaminophen 325 mg tablet RxNorm: 256744 1 Tablet(s) PO Q6H as needed for pain 08/01/2018 08/29/2018 Inactive (Response to an electronic controlled substance refill request - RxReferenceNumber: [id number]|1|0|1) hydrocodone 10 mg-ac etaminophen 325 mg tablet RxNorm: 080613 1 Tablet(s) PO Q6H as needed for pain 07/04/2018 07/31/2018 Inactive (Response to an electronic controlled substance refill request - RxReferenceNumber: [id number]|1|0|1) hydrocodone 10 mg-ac etaminophen 325 mg tablet RxNorm: 736636 1 Tablet(s) PO Q6H as needed for pain 05/31/2018 07/03/2018 Inactive (Response to an electronic controlled substance refill request - RxReferenceNumber: [id number]|1|0|1) hydrocodone 10 mg-ac etaminophen 325 mg tablet RxNorm: 499605 1 Tablet(s) PO Q6H as needed for pain 05/01/2018 05/30/2018 Inactive (Response to an electronic controlled substance refill request - RxReferenceNumber: [id number]|1|0|1) hydrocodone 10 mg-ac etaminophen 325 mg tablet RxNorm: 853282 1 Tablet(s) PO Q6H as needed for pain 04/03/2018 04/30/2018 Inactive (Response to an electronic controlled substance refill request - RxReferenceNumber: [id number]|1|0|1) hydrocodone 10 mg-ac etaminophen 325 mg tablet RxNorm: 505263 1 Tablet(s) PO Q6H as needed for pain 02/26/2018 04/02/2018 Inactive (Response to an electronic controlled substance refill request - RxReferenceNumber: [id number]|1|0|1) clotrimazole-betamet hasone 1 %-0.05 % topical cream RxNorm: 750949 TOP As Directed CALL IF NO IMPROVEMENT IN 2 WEEKS 01/30/2018 01/29/2018 Inactive [SAVINGS FOR UNINSURED PATIENTS -- BIN:[id number], PCN: [id number], Group: [id number], ID# [id number], Process claim through [employer], for questions: . THIS IS NOT INSURANCE.] hydrocodone 10 mg-ac etaminophen 325 mg tablet RxNorm: 939204 1 Tablet(s) PO Q6H as needed for pain 01/29/2018 02/25/2018 Inactive (Response to an electronic controlled substance refill request - RxReferenceNumber: [id number]|1|0|1) hydrocodone 10 mg-ac etaminophen 325 mg tablet RxNorm: 619493 1 Tablet(s) PO Q6H as needed for pain 12/28/2017 01/28/2018 Inactive (Response to an electronic controlled substance refill request - RxReferenceNumber: [id number]|1|0|1) hydrocodone 10 mg-ac etaminophen 325 mg tablet RxNorm: 823899 1 Tablet(s) PO Q6H as needed for pain 11/29/2017 12/27/2017 Inactive (Response to an electronic controlled substance refill request - RxReferenceNumber: [id number]|1|0|1) hydrocodone 10 mg-ac etaminophen 325 mg tablet RxNorm: 907151 1 Tablet(s) PO Q6H as needed for pain 11/02/2017 11/28/2017 Inactive (Response to an electronic controlled substance refill request - RxReferenceNumber: [id number]|1|0|1) hydrocodone 10 mg-ac etaminophen 325 mg tablet RxNorm: 789652 1 Tablet(s) PO Q6H as needed for pain 10/02/2017 11/01/2017 Inactive (Response to an electronic controlled substance refill request - RxReferenceNumber: [id number]|1|0|1) hydrocodone 10 mg-ac etaminophen 325 mg tablet RxNorm: 566158 1 Tablet(s) PO Q6H as needed for pain 08/30/2017 10/01/2017 Inactive (Response to an electronic controlled substance refill request - RxReferenceNumber: [id number]|1|0|1) hydrocodone 10 mg-ac etaminophen 325 mg tablet RxNorm: 028039 1 Tablet(s) PO Q6H as needed for pain 08/01/2017 08/29/2017 Inactive (Response to an electronic controlled substance refill request - RxReferenceNumber: [id number]|1|0|1) hydrocodone 10 mg-ac etaminophen 325 mg tablet RxNorm: 053109 1 Tablet(s) PO Q6H as needed for pain 06/26/2017 No Stop Date Active (Response to an electronic c ontrolled substance refill request - RxReferenceNumber: [id number]|1|0|1) hydrocodone 10 mg-ac etaminophen 325 mg tablet RxNorm: 803796 1 Tablet(s) PO Q6H as needed for pain 06/26/2017 07/31/2017 Inactive (Response to an electronic controlled substance refill request - RxReferenceNumber: [id number]|1|0|1) hydrocodone 10 mg-ac etaminophen 325 mg tablet RxNorm: 908782 1 Tablet(s) PO Q6H as needed for pain 03/27/2017 06/25/2017 Inactive (Response to an electronic controlled substance refill request - RxReferenceNumber: [id number]|1|0|1) hydrocodone 10 mg-ac etaminophen 325 mg tablet RxNorm: 417870 1 Tablet(s) PO Q6H as needed for pain 02/23/2017 03/26/2017 Inactive (Response to an electronic controlled substance refill request - RxReferenceNumber: [id number]|1|0|1) hydrocodone 10 mg-ac etaminophen 325 mg tablet RxNorm: 764391 1 Tablet(s) PO Q6H as needed for pain 01/24/2017 02/22/2017 Inactive (Response to an electronic controlled substance refill request - RxReferenceNumber: [id number]|1|0|1) hydrocodone 10 mg-ac etaminophen 325 mg tablet RxNorm: 946050 1 Tablet(s) PO Q6H as needed for pain 12/27/2016 No Stop Date Active (Response to an electronic c ontrolled substance refill request - RxReferenceNumber: [id number]|1|0|1) hydrocodone 10 mg-ac etaminophen 325 mg tablet RxNorm: 290030 1 Tablet(s) PO Q6H as needed for pain 12/27/2016 01/23/2017 Inactive (Response to an electronic controlled substance refill request - RxReferenceNumber: [id number]|1|0|1) hydrocodone 10 mg-ac etaminophen 325 mg tablet RxNorm: 715019 1 Tablet(s) PO Q6H as needed for pain 11/23/2016 12/26/2016 Inactive (Response to an electronic controlled substance refill request - RxReferenceNumber: [id number]|1|0|1) hydrocodone 10 mg-ac etaminophen 325 mg tablet RxNorm: 719866 1 Tablet(s) PO Q6H as needed for pain 10/20/2016 11/22/2016 Inactive (Response to an electronic controlled substance refill request - RxReferenceNumber: [id number]|1|0|1) hydrocodone 10 mg-ac etaminophen 325 mg tablet RxNorm: 120155 1 Tablet(s) PO Q6H as needed for pain 09/26/2016 10/19/2016 Inactive (Response to an electronic controlled substance refill request - RxReferenceNumber: [id number]|1|0|1) hydrocodone 10 mg-ac etaminophen 325 mg tablet RxNorm: 471005 1 Tablet(s) PO Q6H as needed for pain 07/27/2016 09/25/2016 Inactive (Response to an electronic controlled substance refill request - RxReferenceNumber: [id number]|1|0|1) hydrocodone 10 mg-ac etaminophen 325 mg tablet RxNorm: 520768 1 Tablet(s) PO Q6H as needed for pain 05/04/2016 07/26/2016 Inactive (Response to an electronic controlled substance refill request - RxReferenceNumber: [id number]|1|0|1) hydrocodone 10 mg-ac etaminophen 325 mg tablet RxNorm: 539640 1 Tablet(s) PO Q6H as needed for pain 03/31/2016 05/03/2016 Inactive (Response to an electronic controlled substance refill request - RxReferenceNumber: [id number]|1|0|1) citalopram 10 mg tablet RxNorm: 274200 1 Tablet(s) PO QD 09/28/2015 09/27/2015 Inactive citalopram 10 mg tablet RxNorm: 991057 1 Tablet(s) PO QD 09/28/2015 09/06/2016 Inactive Wellbutrin SR 150 mg tablet,sustained-release RxNorm: 590121 1 Tablet(s) PO QAM 09/25/2015 09/06/2016 In active prednisone 20 mg tablet RxNorm: 105266 1 Tablet(s) PO TID for 3 days then 1 po BID for 3 days then one daily for 3 days 08/31/2015 09/06/2016 Inactive cyclobenzaprine 10 m g tablet RxNorm: 443922 1 Tablet(s) PO TID as needed for muscle spasm 08/31/2015 07/17/2017 Inactive hydrocodone 10 mg-ac etaminophen 325 mg tablet RxNorm: 726846 1 Tablet(s) PO Q6H as needed for pain 08/26/2015 03/30/2016 Inactive (Response to an electronic controlled substance refill request - RxReferenceNumber: [id number]|1|0|1) hydrocodone 10 mg-ac etaminophen 325 mg tablet RxNorm: 490490 1 Tablet(s) PO Q6H as needed for pain 07/28/2015 08/25/2015 Inactive (Response to an electronic controlled substance refill request - RxReferenceNumber: [id number]|1|0|1) hydrocodone 10 mg-ac etaminophen 325 mg tablet RxNorm: 901799 1 Tablet(s) PO Q6H as needed for pain 06/23/2015 07/27/2015 Inactive (Response to an electronic controlled substance refill request - RxReferenceNumber: [id number]|1|0|1) hydrocodone 10 mg-ac etaminophen 325 mg tablet RxNorm: 445724 1 Tablet(s) PO Q6H as needed for pain 05/21/2015 06/22/2015 Inactive (Response to an electronic controlled substance refill request - RxReferenceNumber: [id number]|1|0|1) azithromycin 250 mg tablet RxNorm: 795014 2 Tablet(s) PO on day one, then one tablet on days 2 - 5 04/27/2015 08/30/2015 Inactive hydrocodone 10 mg-ac etaminophen 325 mg tablet RxNorm: 340727 1 Tablet(s) PO Q6H as needed for pain 03/25/2015 05/20/2015 Inactive (Response to an electronic controlled substance refill request - RxReferenceNumber: [id number]|1|0|1) hydrocodone 10 mg-ac etaminophen 325 mg tablet RxNorm: 831198 1 Tablet(s) PO Q6H as needed for pain 02/24/2015 03/24/2015 Inactive (Response to an electronic controlled substance refill request - RxReferenceNumber: [id number]|1|0|1) hydrocodone 10 mg-ac etaminophen 325 mg tablet RxNorm: 630187 1 Tablet(s) PO Q6H as needed for pain 01/23/2015 02/23/2015 Inactive (Response to an electronic controlled substance refill request - RxReferenceNumber: [id number]|1|0|1) hydrocodone 10 mg-ac etaminophen 325 mg tablet RxNorm: 065993 1 Tablet(s) PO Q6H as needed for pain 12/23/2014 01/22/2015 Inactive (Response to an electronic controlled substance refill request - RxReferenceNumber: [id number]|1|0|1) hydrocodone 10 mg-ac etaminophen 325 mg tablet RxNorm: 079300 1 Tablet(s) PO Q6H as needed for pain 11/24/2014 12/22/2014 Inactive (Response to an electronic controlled substance refill request - RxReferenceNumber: [id number]|1|0|1) hydrocodone 10 mg-ac etaminophen 325 mg tablet RxNorm: 431769 1 Tablet(s) PO Q6H as needed for pain 10/28/2014 11/23/2014 Inactive (Response to an electronic controlled substance refill request - RxReferenceNumber: [id number]|1|0|1) hydrocodone 10 mg-ac etaminophen 325 mg tablet RxNorm: 460188 1 Tablet(s) PO Q6H as needed for pain 09/25/2014 10/27/2014 Inactive (Response to an electronic controlled substance refill request - RxReferenceNumber: [id number]|1|0|1) Lipitor 80 mg tablet RxNorm: 269543 1 Tablet(s) PO QHS 09/24/2014 04/13/2015 Inactive hydrocodone 10 mg-ac etaminophen 325 mg tablet RxNorm: 030872 1 Tablet(s) PO Q6H as needed for pain 07/30/2014 09/24/2014 Inactive (Response to an electronic controlled substance refill request - RxReferenceNumber: [id number]|1|0|1) hydrocodone 10 mg-ac etaminophen 325 mg tablet RxNorm: 341772 1 Tablet(s) PO Q6H as needed for pain 05/27/2014 07/29/2014 Inactive (Response to an electronic controlled substance refill request - RxReferenceNumber: [id number]|1|0|1) clotrimazole-betamet hasone 1 %-0.05 % topical cream RxNorm: 085881 TOP As Directed 05/01/2014 08/30/2015 In active [SAVINGS FOR UNINSURED PATIENTS -- BIN:0 43470, PCN: [id number], Group: [id number], ID# [id number], Process claim through [employer], for questions: . THIS IS NOT INSURANCE.] Lipitor 80 mg tablet RxNorm: 372105 1 Tablet(s) PO QHS 04/28/2014 07/26/2014 Inactive hydrocodone 10 mg-ac etaminophen 325 mg tablet RxNorm: 388114 1 Tablet(s) PO Q6H as needed for pain 04/28/2014 05/26/2014 Inactive (Response to an electronic controlled substance refill request - RxReferenceNumber: [id number]|1|0|1) hydrocodone 10 mg-ac etaminophen 325 mg tablet RxNorm: 390273 1 Tablet(s) PO Q6H as needed for pain 03/27/2014 04/27/2014 Inactive (Response to an electronic controlled substance refill request - RxReferenceNumber: [id number]|1|0|1) hydrocodone 10 mg-ac etaminophen 325 mg tablet RxNorm: 561595 1 Tablet(s) PO Q6H as needed for pain 12/20/2013 12/20/2013 Inactive (Appended: Controlled subst ance eRx refill - RxReferenceNumber: [id number]|1|0|1) hydrocodone 10 mg-ac etaminophen 325 mg tablet RxNorm: 399717 TAKE 1 TABLET BY MOUT H EVERY 6 HOURS NEEDED FOR PAIN 12/20/2013 01/12/2014 Inactive (Response to an electronic controlled substance refill request - RxReferenceNumber: [id number]|1|0|1) hydrocodone 10 mg-ac etaminophen 325 mg tablet RxNorm: 408645 1 Tablet(s) PO Q6H as needed for pain 09/03/2013 12/19/2013 Inactive (Appended: Controlled subst ance eRx refill - RxReferenceNumber: [id number]|1|0|1) hydrocodone 10 mg-ac etaminophen 325 mg tablet RxNorm: 392711 Tablet(s) PO TAKE 1 T ABLET BY MOUTH EVERY 6 HOURS NEEDED FOR PAIN 08/08/2013 09/03/2013 Inactive (Kavitha ended: Controlled substance eRx refill - RxReferenceNumber: [id number]|1|0|1) hydrocodone 10 mg-ac etaminophen 325 mg tablet RxNorm: 979095 Tablet(s) PO TAKE 1 T ABLET BY MOUTH EVERY 6 HOURS NEEDED FOR PAIN 07/11/2013 08/07/2013 Inactive (Ap pended: Controlled substance eRx refill - RxReferenceNumber: [id number]|1|0|1) hydrocodone 10 mg-ac etaminophen 325 mg tablet RxNorm: 1805325 Tablet(s) PO TAKE 1 TABLET BY MOUTH EVERY 6 HOURS NEEDED FOR PAIN 06/12/2013 07/11/2013 Inactive (Appended: Controlled substance eRx refill - RxReferenceNumber: [id number]|1|0|1) hydrocodone 10 mg-ac etaminophen 325 mg tablet RxNorm: 7554055 1 Tablet(s) PO Q6H A S NEEDED FOR PAIN 05/15/2013 06/12/2013 Inactive (Appended: Controlled subst ance eRx refill - RxReferenceNumber: [id number]|1|0|1) hydrocodone 10 mg-ac etaminophen 325 mg tablet RxNorm: 6538804 Tablet(s) PO TAKE 1 TO 2 TABLETS BY MOUTH EVERY 6 HOURS NEEDED FOR PAIN 04/18/2013 No Stop Date Active (Appended: Controlled substance eRx refill - RxReferenceNumber: [id number]|1|0|1) hydrocodone 10 mg-ac etaminophen 325 mg tablet RxNorm: 7836305 Tablet(s) PO TAKE 1 TO 2 TABLETS BY MOUTH EVERY 6 HOURS NEEDED FOR PAIN 03/19/2013 No Stop Date Active (Appended: Controlled substance eRx refill - RxReferenceNumber: [id number]|1|0|1) hydrocodone 10 mg-ac etaminophen 325 mg tablet RxNorm: 3982748 Tablet(s) PO TAKE 1 TO 2 TABLETS BY MOUTH EVERY 6 HOURS NEEDED FOR PAIN 02/06/2013 03/18/2013 Inactive (Appended: Controlled substance eRx refill - RxReferenceNumber: [id number]|1|0|1) hydrocodone 10 mg-ac etaminophen 325 mg tablet RxNorm: 1319511 Tablet(s) PO TAKE 1 TO 2 TABLETS BY MOUTH EVERY 6 HOURS NEEDED FOR PAIN 01/08/2013 02/06/2013 Inactive (Appended: Controlled substance eRx refill - RxReferenceNumber: [id number]|1|0|1) Zithromax 250 mg tablet RxNorm: 056504 2 Tablet(s) PO QD 12/04/2012 12/10/2012 Inactive prednisone 20 mg tablet RxNorm: 312993 1 Tablet(s) PO BID 12/04/2012 12/10/2012 Inactive atorvastatin 40 mg t ablet RxNorm: 462273 1 Tablet(s) PO QD 11/08/2012 12/17/2013 Inactive hydrocodone 10 mg-ac etaminophen 325 mg tablet RxNorm: 9307795 Tablet(s) PO TAKE 1 TO 2 TABLETS BY MOUTH EVERY 6 HOURS NEEDED FOR PAIN 10/18/2012 01/08/2013 Inactive (Appended: Controlled substance eRx refill - RxReferenceNumber: [id number]|1|0|1) hydrocodone 10 mg-ac etaminophen 325 mg tablet RxNorm: 0781098 1-2 Tablet(s) PO Q6H as needed for pain 09/06/2012 10/18/2012 Inactive Lamisil 250 mg tablet RxNorm: 610983 1 Tablet(s) PO QD 08/14/2012 09/12/2012 Inactive atorvastatin 40 mg t ablet RxNorm: 322182 1 Tablet(s) PO QD 08/08/2012 11/05/2012 Inactive prednisone 20 mg tablet RxNorm: 774276 1 Tablet(s) PO BID 07/17/2012 07/23/2012 Inactive Wellbutrin SR 150 mg tablet,extended release RxNorm: 193990 1 Tablet(s) PO BID 07/17/2012 08/13/2012 In active meloxicam 15 mg tablet RxNorm: 733151 1 Tablet(s) PO QD for pain 06/27/2012 07/16/2012 Inactive atorvastatin 40 mg t ablet RxNorm: 941781 1 Tablet(s) PO QD 06/27/2012 08/07/2012 Inactive hydrocodone-acetamin ophen 10 mg-325 mg tablet RxNorm: 2567857 1-2 Tablet(s) PO Q6H as needed for pain 05/23/2012 No Stop Date Active hydrocodone-acetamin ophen 10 mg-325 mg tablet RxNorm: 4129942 1-2 Tablet(s) PO Q6H as needed for pain 04/24/2012 No Stop Date Active hydrocodone-acetamin ophen 10 mg-325 mg tablet RxNorm: 8005816 1-2 Tablet(s) PO Q6H as needed for pain 02/08/2012 No Stop Date Active hydrocodone-acetamin ophen 10 mg-325 mg Tab RxNorm: 5208130 1-2 Tablet(s) PO Q6H as needed for pain 01/02/2012 No Stop Date Active hydrocodone-acetamin ophen 10 mg-325 mg Tab RxNorm: 5629188 1-2 Tablet(s) PO Q6H as needed for pain 11/29/2011 No Stop Date Active hydrocodone-acetamin ophen 10 mg-325 mg Tab RxNorm: 8015742 1-2 Tablet(s) PO Q6H as needed for pain 10/24/2011 No Stop Date Active hydrocodone-acetamin ophen 10 mg-325 mg Tab RxNorm: 8808542 1-2 Tablet(s) PO Q6H as needed for pain 10/07/2011 No Stop Date Active simvastatin 40 mg Tab RxNorm: 231669 1 Tablet(s) PO QHS 08/11/2011 03/19/2012 Inactive clopidogrel 75 mg ta blet RxNorm: 317626 1 Tablet(s) PO QD No Start Date Active metoprolol succinate ER 25 mg tablet,extended release 24 hr RxNorm: 701546 1 Tablet(s) PO QD No Start Date Active Symbicort 160 mcg-4. 5 mcg/actuation HFA aerosol inhaler RxNorm: 4853356 2 INH QD No Start Date Active atorvastatin 40 mg t ablet RxNorm: 021415 1 Tablet(s) PO QD No Start Date Active aspirin 81 mg tablet RxNorm: 584512 1 Tablet(s) PO QD No Start Date Active Vitamin D3 2,000 uni t tablet RxNorm: 974373 3 Tablet(s) PO No Start Date Active krill oil oral RxNorm: 32732 oral No Start Date Active lisinopril 5 mg tablet RxNorm: 112672 1 Tablet(s) PO QD No Start Date Active hydrocodone-acetamin ophen 10 mg-325 mg Tab RxNorm: 6263741 1-2 Tablet(s) PO Q6H as needed for pain No Start Date 10/06/2011 Inactive Wellbutrin SR 150 mg tablet,sustained-release RxNorm: 434399 1 Tablet(s) PO QAM No Start Date 09/24/2015 Inactive OxyContin 15 mg 12 h r Tab RxNorm: 4690521 1 Tablet(s) PO BID No Start Date 08/10/2011 Inactive warfarin 5 mg Tab RxNorm: 808851 1 Tablet(s) PO QD No Start Date 03/19/2012 Inactive albuterol sulfate 1. 25 mg/3 mL Neb Solution RxNorm: 414761 1 Unit Dose INH prn wheezing, congestion, shortness of breath No Start Date 04/30/2014 Inactive azithromycin 250 mg tablet RxNorm: 856617 2 Tablet(s) PO on day one, then one tablet on days 2 - 5 No Start Date 04/26/2015 Inactive warfarin 10 mg Tab RxNorm: 274940 1 Tablet(s) PO QOD No Start Date 07/16/2012 Inactive Symbicort Inhl RxNorm: Inhalation No Start Date 12/16/2013 Inactive Trilipix 135 mg Cap RxNorm: 619710 1 Capsule(s) PO QD No Start Date 12/07/2011 Inactive Chantix Starting Mon Box 0.5 mg (11)-1 mg (42) tablets in dose pack RxNorm: 827314 Tablet(s) PO as directed No Start Date 12/03/2012 Inactive clotrimazole-betamet hasone 1 %-0.05 % topical cream RxNorm: 680577 TOP As Directed No Start Date 04/30/2014 Inactive nystatin-triamcinolo ne 100,000 unit/g-0.1 % Topical Cream RxNorm: 7365663 Application TOP BID for 2-4weeks No Start Date 12/03/2012 Inactive Lovastatin 20 mg Tab RxNorm: 456637 1 Tablet(s) PO QHS No Start Date 08/10/2011 Inactive warfarin 7.5 mg Tab RxNorm: 137882 1 Tablet(s) PO QOD No Start Date 07/16/2012 Inactive Lipitor 80 mg tablet RxNorm: 581883 1 Tablet(s) PO QHS No Start Date 04/27/2014 Inactive simvastatin 40 mg Tab RxNorm: 680419 1 Tablet(s) PO QHS No Start Date 08/10/2011 Inactive Gemfibrozil 600 mg Tab RxNorm: 022856 1 Tablet(s) PO QHS No Start Date 08/10/2011 Inactive Medication Administered No Medication Administered data Immunizations No Immunization data Assessments Condition Codes Effectiv e Dates Mixed hyperlipidemia ICD-10: E78.2 ICD-9: 272.4 03/27/2019 Bilateral primary osteoarthritis of knee ICD-10: M17.0 ICD-9: 715.96 03/27/2019 Nicotine dependence, unspecified, uncomplicated ICD-10: F17.200 ICD-9: 305.1 03/27/2019 Atherosclerotic heart disease of [place] coronary artery without angina pectoris ICD-10: I25.10 ICD-9: 414.00 03/27/2019 Other intervertebral disc degeneration, lumbar region ICD-10: M51.36 ICD-9: 722.52 12/25/2018 Pain in thoracic spine ICD-10: M54.6 ICD-9: 724.1 06/19/2018 Encounter for screening for malignant neoplasm of [place] ICD-10: Z12.5 ICD-9: V76.44 06/19/2018 Primary osteoarthritis, right wrist ICD-10: M19.031 ICD-9: 715.93 06/19/2018 Other fatigue ICD-10: R53.83 ICD-9: 780.79 06/19/2018 Pain in right knee ICD-10: M25.561 ICD-9: 719.46 03/02/2018 Pain in left knee ICD-10: M25.562 ICD-9: 719.46 03/02/2018 Encounter for therapeutic drug level monitoring ICD-10: Z51.81 ICD-9: V58.83 03/02/2018 Pain in right wrist ICD-10: M25.531 ICD-9: 719.43 03/02/2018 Primary osteoarthritis, right wrist ICD-10: M19.031 ICD-9: 716.93 08/31/2017 Other synovitis and tenosynovitis, right hand ICD-10: M65.841 ICD-9: 727.05 08/31/2017 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 ICD-10: D17.1 ICD-9: 214.1 07/18/2017 Other spondylosis with radiculopathy, cervical region ICD-10: M47.22 ICD-9: 721.0 07/18/2017 Cervicalgia ICD-10: M54.2 ICD-9: 723.1 04/24/2017 Other enthesopathies, not elsewhere classified ICD-10: M77.8 ICD-9: 727.05 09/12/2016 Encounter for general adult medical exam ination with abnormal findings ICD-10: Z00.01 ICD-9: V70.0 09/09/2016 Chronic obstructive pulmonary disease wi th acute lower respiratory infection ICD-10: J44.0 ICD-9: 496 09/07/2016 Dorsalgia, unspecified ICD-10: M54.9 ICD-9: 724.5 08/05/2016 Lumbago with sciatica, right side IC D-10: M54.41 ICD-9: 724.2 04/25/2016 Acute bronchitis, unspecified ICD-10 : J20.9 ICD-9: 466.0 08/31/2015 TOBACCO USE DISORDER ICD-9: 305.1 04/14/2015 Chronic back pain ICD-9: 724.5 04/14/2015 Osteoarthritis, knee ICD-9: 715.96 04/14/2015 HYPERLIPIDEMIA NEC/NOS ICD-9: 272.4 04/14/2015 ROUTINE MEDICAL EXAM ICD-9: V70.0 11/10/2014 COPD ICD-9: 496 04/13/20 15 Wrist pain ICD-9: 719.43 10/07/2014 Knee pain ICD-9: 719.46 12/17/2013 COUGH ICD-9: 786.2 12/11 COPD W/ ACUTE EXACERB ICD-9: 491.21 12/11/2012 BRONCHITIS, ACUTE ICD-9: 466.0 12/04/2012 DERMATITIS NOS ICD-9: 692.9 08/14/2012 PAIN IN THORACIC SPINE ICD-9: 724.1 07/17/2012 PAIN, LOWER BACK ICD-9: 724.2 07/17/2012 AC EMBL SUPRFCL UP EXT ICD-9: 453.81 03/20/2012 Trigger finger, left ICD-9: 727.03 12/08/2011 Reason For Visit Reason For Visit Effective Dates Notes follow up 03/27/2019 follow up 12/25/2018 Pat ient had 100% blockage to LAD and had stent placed 11-06-18 wrist pain 08/22/2018 follow up 06/19/2018 Medication Monitoring 03/02/2018 Medication Monitoring 02/01/2018 ETHOS UA Performed wrist pain 08/31/2017 lab draw 08/01/2017 follow up 07/18/2017 follow up 04/24/2017 Las t Medication Monitoring Urine 01/06/2017 follow up 01/04/2017 follow up 09/12/[address] injection lab draw 09/09/2016 well man exam (40-65 years) 09/07/2016 follow up 04/25/2016 Pat ient here for Medication Monitoring lab draw 09/15/2015 follow up 08/31/2015 4mo fwup follow up 04/14/2015 lab draw 11/10/2014 back pain 10/07/2014 4 m onth pain evaluation follow up 05/01/2014 lab draw 04/29/2014 lab draw 12/18/2013 hyperlipidemia 12/17/2013 Refill hydrocodone follow up 12/11/2012 1wk fwup COPD w/exac 12/04/2012 H as been using leftover symbicort follow up 08/14/2012 dis cuss recent labs skin lesion 07/17/2012 W ants to discuss chantix follow up 03/20/[address] Gallegos, discuss stopping the warfarin back pain 12/08/2011 ~generic 08/11/2011 Re-e stablishing visit Yearly Checkup/Physical 05/26/2010 Establishing Visit Results Observation Observation Code Item Item Code Result Date COMPLETE BLOOD COUNT [id number] WBC 9.7 10e9/L 06/19/2018 COMPLETE BLOOD COUNT [id number] RBC 5.35 10e12/L 8 COMPLETE BLOOD COUNT 3265856 HEMOGLOBIN 17.1 g/dL 06/19/2018 COMPLETE BLOOD COUNT 4262112 HEMATOCRIT 52.4 % 06/19/2018 COMPLETE BLOOD COUNT 3810586 MCV 97.9 fL 06/19/2018 COMPLETE BLOOD COUNT 5720700 MCH 32.0 pg 06/19/2018 COMPLETE BLOOD COUNT 9971387 MCHC 32.6 g/dL 06/19/2018 COMPLETE BLOOD COUNT 6008724 PLATELET COUNT 257 10e9/L 06/19/2018 COMPLETE BLOOD COUNT 7761215 Mean Plt Volume 11.2 fL 06/19/2018 COMPLETE BLOOD COUNT 0841419 Neut Auto 54.6 % 06/19/2018 COMPLETE BLOOD COUNT 1949241 Lymph Auto 33.3 % 06/19/2018 COMPLETE BLOOD COUNT 4652894 [place] Auto 9.1 % 06/19/2018 COMPLETE BLOOD COUNT 6731070 RDW 14.4 % 06/19/2018 COMPLETE BLOOD COUNT 1351673 Eos Auto 2.6 % 06/19/2018 COMPLETE BLOOD COUNT 0335453 Baso Auto 0.4 % 06/19/2018 COMPLETE BLOOD COUNT 5971378 Neutrophil Abs 5.30 10e9/L 06/19/2018 COMPLETE BLOOD COUNT 5560095 Lymphocyte Abs 3.23 10e9/L 06/19/2018 COMPLETE BLOOD COUNT 3592927 Monocyte Abs 0.88 10e9/L 06/19/2018 COMPLETE BLOOD COUNT 1728957 Eosinophil Abs 0.25 10e9/L 06/19/2018 COMPLETE BLOOD COUNT 8047494 RDW-SD 51.8 fL 06/19/2018 COMPLETE BLOOD COUNT 9229421 Basophil Abs 0.04 10e9/L 06/19/2018 LIPID GROUP 53875 Choles terol 222 mg/dL 06/19/2018 LIPID GROUP 98093 Trigly ceride 111 mg/dL 06/19/2018 LIPID GROUP 00611 HDL CH OLESTEROL 37 mg/dL 06/19/2018 LIP[facility] GROUP 13687 Chol/H DL Ratio 6.00 ratio 06/19/2018 LIPID GROUP 17063 NON-HD L Chol 185 mg/dL 06/19/2018 LIPID GROUP 37445 LDL Ch olesterol 163 mg/dL 06/19/2018 VITAMIN B 12 33510 VITAM IN B12 532 pg/mL 06/19/2018 THYROID STIMULATING HORMONE 44500 TSH 2.685 uIU/mL 8 COMPREHENSIVE METABOLIC 41035 AST 15 U/L 06/19/2018 COMPREHENSIVE METABOLIC 82494 ALT 21 U/L 06/19/2018 COMPREHENSIVE METABOLIC 64783 BUN 16 mg/dL 06/19/2018 COMPREHENSIVE METABOLIC 77031 ALBUMIN 4.1 g/dL 06/19/2018 COMPREHENSIVE METABOLIC 37057 CHLORIDE 99 mmol/L 06/19/2018 COMPREHENSIVE METABOLIC 47528 Bili Total 0.4 mg/dL 06/19/2018 COMPREHENSIVE METABOLIC 75578 ALK PHOS 43 U/L 06/19/2018 COMPREHENSIVE METABOLIC 05839 SODIUM 136 mmol/L 06/19/2018 COMPREHENSIVE METABOLIC 91965 CREATININE 0.82 mg/dL 06/19/2018 COMPREHENSIVE METABOLIC 73287 CALCIUM 9.5 mg/dL 06/19/2018 COMPREHENSIVE METABOLIC 91143 POTASSIUM 5.2 mmol/L 06/19/2018 COMPREHENSIVE METABOLIC 67043 Total Protein 6.7 g/dL 06/19/2018 COMPREHENSIVE METABOLIC 53204 Glucose 81 mg/dL 06/19/2018 COMPREHENSIVE METABOLIC 78552 Bicarbonate 30 mmol/L 06/19/2018 COMPREHENSIVE METABOLIC 10308 AGAP 7 mmol/L 06/19/2018 FREE T4 44163 T4 Free 0.85 ng/dL 06/19/2018 GFR CALC 3116923 GFR Non Afr Amr >60 mL/min 06/19/2018 GFR CALC 5292522 GFR Afr Amr >60 mL/min 06/19/2018 VITAMIN D TOTAL (25 HYDROXY) 63622 Vitamin D 25 [place] 24.1 ng/mL 06/19/2018 PSA EQUIMOLAR TROY 57687 PSA Total 0.88 ng/mL 06/19/2018 GFR CALC 5155224 GFR Non Afr Amr >60 mL/min 09/09/2016 GFR CALC 1189442 GFR Afr Amr >60 mL/min 09/09/2016 COMPLETE BLOOD COUNT 0741674 WBC 11.7 10e9/L 09/09/2016 COMPLETE BLOOD COUNT 4672737 RBC 5.54 10e12/L 7 COMPLETE BLOOD COUNT 3977139 HEMOGLOBIN 17.6 g/dL 09/09/2016 COMPLETE BLOOD COUNT 5855969 HEMATOCRIT 52.3 % 09/09/2016 COMPLETE BLOOD COUNT 8882114 MCV 94.4 fL 09/09/2016 COMPLETE BLOOD COUNT 1340953 MCH 31.8 pg 09/09/2016 COMPLETE BLOOD COUNT 1669831 MCHC 33.7 g/dL 09/09/2016 COMPLETE BLOOD COUNT 0862377 PLATELET COUNT 259 10e9/L 09/09/2016 COMPLETE BLOOD COUNT 0721324 Mean Plt Volume 11.2 fL 09/09/2016 COMPLETE BLOOD COUNT 0558038 Neut Auto 53.6 % 09/09/2016 COMPLETE BLOOD COUNT 2253399 Lymph Auto 36.2 % 09/09/2016 COMPLETE BLOOD COUNT 3911832 [place] Auto 7.9 % 09/09/2016 COMPLETE BLOOD COUNT 4905545 RDW 14.2 % 09/09/2016 COMPLETE BLOOD COUNT 3159420 Eos Auto 2.1 % 09/09/2016 COMPLETE BLOOD COUNT 0998595 Baso Auto 0.2 % 09/09/2016 COMPLETE BLOOD COUNT 9350497 Neutrophil Abs 6.27 10e9/L 09/09/2016 COMPLETE BLOOD COUNT 2371260 Lymphocyte Abs 4.24 10e9/L 09/09/2016 COMPLETE BLOOD COUNT 9606668 Monocyte Abs 0.92 10e9/L 09/09/2016 COMPLETE BLOOD COUNT 7407959 Eosinophil Abs 0.25 10e9/L 09/09/2016 COMPLETE BLOOD COUNT 6619060 RDW-SD 48.1 fL 09/09/2016 COMPLETE BLOOD COUNT 7116388 Basophil Abs 0.02 10e9/L 09/09/2016 COMPREHENSIVE METABOLIC 93883 AST 19 U/L 09/09/2016 COMPREHENSIVE METABOLIC 24428 ALT 25 U/L 09/09/2016 COMPREHENSIVE METABOLIC 62597 BUN 16 mg/dL 09/09/2016 COMPREHENSIVE METABOLIC 63097 ALBUMIN 4.8 g/dL 09/09/2016 COMPREHENSIVE METABOLIC 02257 CHLORIDE 100 mmol/L 09/09/2016 COMPREHENSIVE METABOLIC 95451 Bili Total 0.7 mg/dL 09/09/2016 COMPREHENSIVE METABOLIC 46590 ALK PHOS 50 U/L 09/09/2016 COMPREHENSIVE METABOLIC 37486 SODIUM 136 mmol/L 09/09/2016 COMPREHENSIVE METABOLIC 05914 CREATININE 0.98 mg/dL 09/09/2016 COMPREHENSIVE METABOLIC 92114 CALCIUM 9.8 mg/dL 09/09/2016 COMPREHENSIVE METABOLIC 11285 POTASSIUM 4.6 mmol/L 09/09/2016 COMPREHENSIVE METABOLIC 12172 Total Protein 7.5 g/dL 09/09/2016 COMPREHENSIVE METABOLIC 18069 Glucose 104 mg/dL 09/09/2016 COMPREHENSIVE METABOLIC 22752 Bicarbonate 27 mmol/L 09/09/2016 COMPREHENSIVE METABOLIC 87791 AGAP 9 mmol/L 09/09/2016 FREE T4 43722 T4 Free 1.04 ng/dL 09/09/2016 THYROID STIMULATING HORMONE 39963 TSH 1.618 uIU/mL 7 LIPID GROUP 41784 Choles terol 251 mg/dL 09/09/2016 LIPID GROUP 95678 Trigly ceride 153 mg/dL 09/09/2016 LIPID GROUP 55283 HDL CH OLESTEROL 33 mg/dL 09/09/2016 LIPID GROUP 45922 Chol/H DL Ratio 7.61 ratio 09/09/2016 LIPID GROUP 42574 NON-HD L Chol 218 mg/dL 09/09/2016 LIPID GROUP 75314 LDL Ch olesterol 187 mg/dL 09/09/2016 LIPID GROUP [address] 39 MG/DL 09/15/2015 LIPID GROUP 83765 TRIG 106 MG/DL 09/15/2015 LIPID GROUP 22480 TEST L DL 152 MG/DL 09/15/2015 LIPID GROUP 20569 CHOL 212 MG/DL 09/15/2015 LIPID GROUP 79150 RCHOL/ HDL 5.44 RATIO 09/15/2015 LIPID GROUP 61546 NON-HD L CH 173 MG/DL 09/15/2015 GFR CALC 9709050 GFR AA >60 ML/MIN 09/15/2015 GFR CALC 4739490 GFR NON -AA >60 ML/MIN 09/15/2015 COMPREHENSIVE METABOLIC 38185 AST 18 U/L 09/15/2015 COMPREHENSIVE METABOLIC 06021 ALT 28 IU/L 09/15/2015 COMPREHENSIVE METABOLIC 49038 BUN 14 MG/DL 09/15/2015 COMPREHENSIVE METABOLIC 52555 ALBUMIN 4.2 GM/DL 09/15/2015 COMPREHENSIVE METABOLIC 43396 CHLORIDE 101 MMOL/L 09/15/2015 COMPREHENSIVE METABOLIC 81502 BILI TOT 0.6 MG/DL 09/15/2015 COMPREHENSIVE METABOLIC 80895 ALK PHOS 48 U/L 09/15/2015 COMPREHENSIVE METABOLIC 10609 SODIUM 135 MMOL/L 09/15/2015 COMPREHENSIVE METABOLIC 15315 CREATININE 0.91 MG/DL 09/15/2015 COMPREHENSIVE METABOLIC 14283 CALCIUM 9.2 MG/DL 09/15/2015 COMPREHENSIVE METABOLIC 97659 POTASSIUM 4.6 MMOL/L 09/15/2015 COMPREHENSIVE METABOLIC 52235 PROT TOT 6.6 GM/DL 09/15/2015 COMPREHENSIVE METABOLIC 99465 Glucose 97 MG/DL 09/15/2015 COMPREHENSIVE METABOLIC 75078 BICARB 27 MMOL/L 09/15/2015 COMPREHENSIVE METABOLIC 25060 ANION GAP 7 MEQ/L 09/15/2015 LIPID GROUP [address] 35 MG/DL 04/14/2015 LIPID GROUP 59106 TRIG 135 MG/DL 04/14/2015 LIPID GROUP 65440 TEST L DL 153 MG/DL 04/14/2015 LIPID GROUP 78410 CHOL 215 MG/DL 04/14/2015 LIPID GROUP 50559 RCHOL/ HDL 6.14 RATIO 04/14/2015 LIPID GROUP 41735 NON-HD L CH 180 MG/DL 04/14/2015 GFR CALC 1438961 GFR AA >60 ML/MIN 04/14/2015 GFR CALC 1819354 GFR NON -AA >60 ML/MIN 04/14/2015 COMPREHENSIVE METABOLIC 52269 AST 23 U/L 04/14/2015 COMPREHENSIVE METABOLIC 82362 ALT 27 IU/L 04/14/2015 COMPREHENSIVE METABOLIC 92969 BUN 15 MG/DL 04/14/2015 COMPREHENSIVE METABOLIC 06060 ALBUMIN 4.2 GM/DL 04/14/2015 COMPREHENSIVE METABOLIC 49895 CHLORIDE 103 MMOL/L 04/14/2015 COMPREHENSIVE METABOLIC 31764 BILI TOT 0.8 MG/DL 04/14/2015 COMPREHENSIVE METABOLIC 83359 ALK PHOS 50 U/L 04/14/2015 COMPREHENSIVE METABOLIC 31099 SODIUM 134 MMOL/L 04/14/2015 COMPREHENSIVE METABOLIC 17304 CREATININE 0.93 MG/DL 04/14/2015 COMPREHENSIVE METABOLIC 28673 CALCIUM 9.4 MG/DL 04/14/2015 COMPREHENSIVE METABOLIC 75709 POTASSIUM 4.4 MMOL/L 04/14/2015 COMPREHENSIVE METABOLIC 85332 PROT TOT 6.8 GM/DL 04/14/2015 COMPREHENSIVE METABOLIC 46965 Glucose 101 MG/DL 04/14/2015 COMPREHENSIVE METABOLIC 38652 BICARB 25 MMOL/L 04/14/2015 COMPREHENSIVE METABOLIC 98813 ANION GAP 6 MEQ/L 04/14/2015 PSA EQUIMOLAR TROY 45729 PSA EQ 1.04 NG/ML 11/10/2014 GFR CALC 7332848 GFR AA >60 ML/MIN 11/10/2014 GFR CALC 6602141 GFR NON -AA >60 ML/MIN 11/10/2014 LIPID GROUP [address] 31 MG/DL 11/10/2014 LIPID GROUP 32926 TRIG 133 MG/DL 11/10/2014 LIPID GROUP 98692 TEST L DL 74 MG/DL 11/10/2014 LIPID GROUP 56697 CHOL 132 MG/DL 11/10/2014 LIPID GROUP 74137 RCHOL/ HDL 4.26 RATIO 11/10/2014 LIPID GROUP 34907 NON-HD L CH 101 MG/DL 11/10/2014 COMPLETE BLOOD COUNT 5206299 WBC 10.2 10e9/L 11/10/2014 COMPLETE BLOOD COUNT 7496562 RBC 5.01 10e12/L 5 COMPLETE BLOOD COUNT 3485247 HGB 16.1 g/dL 11/10/2014 COMPLETE BLOOD COUNT 0746878 HCT DET 48.1 % 11/10/2014 COMPLETE BLOOD COUNT 6498170 MCV 96.0 fL 11/10/2014 COMPLETE BLOOD COUNT 3384798 MCH 32.1 pg 11/10/2014 COMPLETE BLOOD COUNT 4293500 MCHC 33.5 g/dL 11/10/2014 COMPLETE BLOOD COUNT 0450284 PLT 248 10e9/L 11/10/2014 COMPLETE BLOOD COUNT 8362461 MPV 11.4 fL 11/10/2014 COMPLETE BLOOD COUNT 4789197 GIUSEPPE % 51.2 % 11/10/2014 COMPLETE BLOOD COUNT 7903371 LY % 37.4 % 11/10/2014 COMPLETE BLOOD COUNT 0272905 MON % 9.2 % 11/10/2014 COMPLETE BLOOD COUNT 1917669 EOS % 2.0 % 11/10/2014 COMPLETE BLOOD COUNT 8325812 BASO % 0.2 % 11/10/2014 COMPLETE BLOOD COUNT 3290012 RDW 14.0 % 11/10/2014 COMPLETE BLOOD COUNT 6501586 ABS GIUSEPPE 5.22 10e9/L 11/10/2014 COMPLETE BLOOD COUNT 7903568 ABS LYMPH 3.81 10e9/L 11/10/2014 COMPLETE BLOOD COUNT 6965908 ABS MONO 0.94 10e9/L 11/10/2014 COMPLETE BLOOD COUNT 2868731 ABS EOS 0.20 10e9/L 11/10/2014 COMPLETE BLOOD COUNT 0102050 ABS BASO 0.02 10e9/L 11/10/2014 COMPLETE BLOOD COUNT 0550629 RDW-SD 47.8 fL 11/10/2014 FREE T4 48785 FREE T4 0.92 NG/DL 11/10/2014 COMPREHENSIVE METABOLIC 85822 AST 18 U/L 11/10/2014 COMPREHENSIVE METABOLIC 06761 ALT 25 IU/L 11/10/2014 COMPREHENSIVE METABOLIC 27359 BUN 16 MG/DL 11/10/2014 COMPREHENSIVE METABOLIC 98491 ALBUMIN 4.5 GM/DL 11/10/2014 COMPREHENSIVE METABOLIC 65903 CHLORIDE 103 MMOL/L 11/10/2014 COMPREHENSIVE METABOLIC 80253 BILI TOT 0.4 MG/DL 11/10/2014 COMPREHENSIVE METABOLIC 67648 ALK PHOS 53 U/L 11/10/2014 COMPREHENSIVE METABOLIC 18522 SODIUM 135 MMOL/L 11/10/2014 COMPREHENSIVE METABOLIC 07365 CREATININE 0.97 MG/DL 11/10/2014 COMPREHENSIVE METABOLIC 42413 CALCIUM 9.4 MG/DL 11/10/2014 COMPREHENSIVE METABOLIC 67616 POTASSIUM 4.4 MMOL/L 11/10/2014 COMPREHENSIVE METABOLIC 29337 PROT TOT 6.9 GM/DL 11/10/2014 COMPREHENSIVE METABOLIC 57334 Glucose 91 MG/DL 11/10/2014 COMPREHENSIVE METABOLIC 74099 BICARB 26 MMOL/L 11/10/2014 COMPREHENSIVE METABOLIC 63832 ANION GAP 6 MEQ/L 11/10/2014 THYROID STIMULATING HORMONE 63840 TSH 3.791 uIU/ML 5 [facility] [address] 35 MG/DL 04/29/2014 LIPID GROUP 58356 TRIG 123 MG/DL 04/29/2014 LIPID GROUP 30175 TEST L DL 117 MG/DL 04/29/2014 LIPID GROUP 06938 CHOL 177 MG/DL 04/29/2014 LIPID GROUP 05206 RCHOL/ HDL 5.06 RATIO 04/29/2014 LIPID GROUP 06051 NON-HD L CH 142 MG/DL 04/29/2014 COMPREHENSIVE METABOLIC 33250 AST 18 U/L 04/29/2014 COMPREHENSIVE METABOLIC 36778 ALT 29 IU/L 04/29/2014 COMPREHENSIVE METABOLIC 41911 BUN 19 MG/DL 04/29/2014 COMPREHENSIVE METABOLIC 39783 ALBUMIN 4.0 GM/DL 04/29/2014 COMPREHENSIVE METABOLIC 38686 CHLORIDE 106 MMOL/L 04/29/2014 COMPREHENSIVE METABOLIC 82851 BILI TOT 0.4 MG/DL 04/29/2014 COMPREHENSIVE METABOLIC 33124 ALK PHOS 51 U/L 04/29/2014 COMPREHENSIVE METABOLIC 94750 SODIUM 138 MMOL/L 04/29/2014 COMPREHENSIVE METABOLIC 05801 CREATININE 0.87 MG/DL 04/29/2014 COMPREHENSIVE METABOLIC 75755 CALCIUM 9.4 MG/DL 04/29/2014 COMPREHENSIVE METABOLIC 95176 POTASSIUM 4.5 MMOL/L 04/29/2014 COMPREHENSIVE METABOLIC 74084 PROT TOT 6.8 GM/DL 04/29/2014 COMPREHENSIVE METABOLIC 69415 Glucose 106 MG/DL 04/29/2014 COMPREHENSIVE METABOLIC 71689 BICARB 24 MMOL/L 04/29/2014 COMPREHENSIVE METABOLIC 95335 ANION GAP 8 MEQ/L 04/29/2014 GFR CALC 9988725 GFR AA >60 ML/MIN 04/29/2014 GFR CALC 3231706 GFR NON -AA >60 ML/MIN 04/29/2014 LIP[facility] GROUP [address] 30 MG/DL 12/18/2013 LIPID GROUP 14711 TRIG 128 MG/DL 12/18/2013 LIPID GROUP 96301 TEST L DL 166 MG/DL 12/18/2013 LIPID GROUP 54968 CHOL 222 MG/DL 12/18/2013 LIPID GROUP 33306 RCHOL/ HDL 7.40 RATIO 12/18/2013 GFR CALC 5968988 GFR AA >60 ML/MIN 12/18/2013 GFR CALC 1703243 GFR NON -AA >60 ML/MIN 12/18/2013 FREE T4 53430 FREE T4 1.07 NG/DL 12/18/2013 COMPLETE BLOOD COUNT 8578926 WBC 7.2 10e9/L 12/18/2013 COMPLETE BLOOD COUNT 4926273 RBC 4.89 10e12/L 4 COMPLETE BLOOD COUNT 7511683 HGB 15.5 g/dL 12/18/2013 COMPLETE BLOOD COUNT 3905101 HCT DET 46.6 % 12/18/2013 COMPLETE BLOOD COUNT 0533123 MCV 95.3 fL 12/18/2013 COMPLETE BLOOD COUNT 8339581 MCH 31.7 pg 12/18/2013 COMPLETE BLOOD COUNT 9287518 MCHC 33.3 g/dL 12/18/2013 COMPLETE BLOOD COUNT 0345919 PLT 246 10e9/L 12/18/2013 COMPLETE BLOOD COUNT 0110874 MPV 11.4 fL 12/18/2013 COMPLETE BLOOD COUNT 7362469 GIUSEPPE % 48.6 % 12/18/2013 COMPLETE BLOOD COUNT 8052854 LY % 37.4 % 12/18/2013 COMPLETE BLOOD COUNT 5829052 MON % 10.5 % 12/18/2013 COMPLETE BLOOD COUNT 7074765 EOS % 3.2 % 12/18/2013 COMPLETE BLOOD COUNT 9406359 BASO % 0.3 % 12/18/2013 COMPLETE BLOOD COUNT 3523573 RDW 13.6 % 12/18/2013 COMPLETE BLOOD COUNT 3065070 ABS GIUSEPPE 3.50 10e9/L 12/18/2013 COMPLETE BLOOD COUNT 4785023 ABS LYMPH 2.69 10e9/L 12/18/2013 COMPLETE BLOOD COUNT 5717782 ABS MONO 0.76 10e9/L 12/18/2013 COMPLETE BLOOD COUNT 7873061 ABS EOS 0.23 10e9/L 12/18/2013 COMPLETE BLOOD COUNT 9613974 ABS BASO 0.02 10e9/L 12/18/2013 COMPLETE BLOOD COUNT 3902063 RDW-SD 46.2 fL 12/18/2013 COMPREHENSIVE METABOLIC 24265 AST 38 U/L 12/18/2013 COMPREHENSIVE METABOLIC 15646 ALT 33 IU/L 12/18/2013 COMPREHENSIVE METABOLIC 07581 BUN 15 MG/DL 12/18/2013 COMPREHENSIVE METABOLIC 99307 ALBUMIN 4.2 GM/DL 12/18/2013 COMPREHENSIVE METABOLIC 16958 CHLORIDE 103 MMOL/L 12/18/2013 COMPREHENSIVE METABOLIC 25326 BILI TOT 0.6 MG/DL 12/18/2013 COMPREHENSIVE METABOLIC 65425 ALK PHOS 45 U/L 12/18/2013 COMPREHENSIVE METABOLIC 99535 SODIUM 136 MMOL/L 12/18/2013 COMPREHENSIVE METABOLIC 22525 CREATININE 0.97 MG/DL 12/18/2013 COMPREHENSIVE METABOLIC 95132 CALCIUM 9.2 MG/DL 12/18/2013 COMPREHENSIVE METABOLIC 41343 POTASSIUM 4.2 MMOL/L 12/18/2013 COMPREHENSIVE METABOLIC 77154 PROT TOT 7.0 GM/DL 12/18/2013 COMPREHENSIVE METABOLIC 81504 Glucose 120 MG/DL 12/18/2013 COMPREHENSIVE METABOLIC 58856 BICARB 24 MMOL/L 12/18/2013 COMPREHENSIVE METABOLIC 86086 ANION GAP 9 MEQ/L 12/18/2013 THYROID STIMULATING HORMONE 19756 TSH 1.305 uIU/ML 4 PSA EQUIMOLAR TROY 47192 PSA EQ 1.71 NG/ML 12/18/2013 LIPID GROUP [address] 29 MG/DL 07/17/2012 LIPID GROUP 46387 TRIG 155 MG/DL 07/17/2012 LIPID GROUP 45093 TEST L DL 105 MG/DL 07/17/2012 LIPID GROUP 64987 CHOL 165 MG/DL 07/17/2012 LIPID GROUP 14876 RCHOL/ HDL 5.69 RATIO 07/17/2012 GFR CALC 8433801 GFR AA >60 ML/MIN 07/17/2012 GFR CALC 6686283 GFR NON -AA >60 ML/MIN 07/17/2012 COMPREHENSIVE METABOLIC 23617 AST 19 U/L 07/17/2012 COMPREHENSIVE METABOLIC 45700 ALT 25 IU/L 07/17/2012 COMPREHENSIVE METABOLIC 96744 BUN 14 MG/DL 07/17/2012 COMPREHENSIVE METABOLIC 50793 ALBUMIN 4.4 GM/DL 07/17/2012 COMPREHENSIVE METABOLIC 67578 CHLORIDE 103 MMOL/L 07/17/2012 COMPREHENSIVE METABOLIC 74102 BILI TOT 0.6 MG/DL 07/17/2012 COMPREHENSIVE METABOLIC 16039 ALK PHOS 53 U/L 07/17/2012 COMPREHENSIVE METABOLIC 76679 SODIUM 136 MMOL/L 07/17/2012 COMPREHENSIVE METABOLIC 46858 CREATININE 0.97 MG/DL 07/17/2012 COMPREHENSIVE METABOLIC 03238 CALCIUM 9.4 MG/DL 07/17/2012 COMPREHENSIVE METABOLIC 71298 POTASSIUM 4.3 MMOL/L 07/17/2012 COMPREHENSIVE METABOLIC 30062 PROT TOT 6.9 GM/DL 07/17/2012 COMPREHENSIVE METABOLIC 24137 Glucose 102 MG/DL 07/17/2012 COMPREHENSIVE METABOLIC 78609 BICARB 27 MMOL/L 07/17/2012 COMPREHENSIVE METABOLIC 07744 ANION GAP 6 MEQ/L 07/17/2012 ERYTHROCYTE SEDIMENTATION RATE 46124 ESR 14 MM/HR 03/20/2012 LIPID GROUP [address] 31 MG/DL 03/20/2012 LIPID GROUP 01654 TRIG 210 MG/DL 03/20/2012 LIPID GROUP 24293 TEST L DL 164 MG/DL 03/20/2012 LIPID GROUP 93169 CHOL 237 MG/DL 03/20/2012 LIPID GROUP 06556 RCHOL/ HDL 7.65 RATIO 03/20/2012 GFR CALC 1109979 GFR AA >60 ML/MIN 03/20/2012 GFR CALC 2297235 GFR NON -AA >60 ML/MIN 03/20/2012 C-REACTIVE PROTEIN (CRP) QUANT 05447 CRP 0.9 MG/DL 03/20/2012 COMPLETE BLOOD COUNT 10662 WBC 9.7 10e9/L 03/20/2012 COMPLETE BLOOD COUNT 08506 RBC 5.14 10e12/L 2 COMPLETE BLOOD COUNT 52897 HGB 15.5 g/dL 03/20/2012 COMPLETE BLOOD COUNT 78021 HCT DET 46.9 % 03/20/2012 COMPLETE BLOOD COUNT 49998 MCV 91.2 fL 03/20/2012 COMPLETE BLOOD COUNT 56753 MCH 30.2 pg 03/20/2012 COMPLETE BLOOD COUNT 03435 MCHC 33.0 g/dL 03/20/2012 COMPLETE BLOOD COUNT 89939 PLT 280 10e9/L 03/20/2012 COMPLETE BLOOD COUNT 26785 MPV 10.6 fL 03/20/2012 COMPLETE BLOOD COUNT 09956 GIUSEPPE % 61.5 % 03/20/2012 COMPLETE BLOOD COUNT 59271 LY % 26.5 % 03/20/2012 COMPLETE BLOOD COUNT 30324 MON % 8.8 % 03/20/2012 COMPLETE BLOOD COUNT 10299 EOS % 3.0 % 03/20/2012 COMPLETE BLOOD COUNT 98235 BASO % 0.2 % 03/20/2012 COMPLETE BLOOD COUNT 13791 RDW 15.3 % 03/20/2012 COMPLETE BLOOD COUNT 63299 ABS GIUSEPPE 5.97 10e9/L 03/20/2012 COMPLETE BLOOD COUNT 46114 ABS LYMPH 2.57 10e9/L 03/20/2012 COMPLETE BLOOD COUNT 55866 ABS MONO 0.85 10e9/L 03/20/2012 COMPLETE BLOOD COUNT 19070 ABS EOS 0.29 10e9/L 03/20/2012 COMPLETE BLOOD COUNT 68992 ABS BASO 0.02 10e9/L 03/20/2012 COMPLETE BLOOD COUNT 20658 RDW-SD 50.3 fL 03/20/2012 COMPREHENSIVE METABOLIC 65953 AST 16 U/L 03/20/2012 COMPREHENSIVE METABOLIC 98987 ALT 21 IU/L 03/20/2012 COMPREHENSIVE METABOLIC 02742 BUN 15 MG/DL 03/20/2012 COMPREHENSIVE METABOLIC 96933 ALBUMIN 4.3 GM/DL 03/20/2012 COMPREHENSIVE METABOLIC 62278 CHLORIDE 102 MMOL/L 03/20/2012 COMPREHENSIVE METABOLIC 85904 BILI TOT 0.5 MG/DL 03/20/2012 COMPREHENSIVE METABOLIC 98823 ALK PHOS 60 U/L 03/20/2012 COMPREHENSIVE METABOLIC 85451 SODIUM 135 MMOL/L 03/20/2012 COMPREHENSIVE METABOLIC 68265 CREATININE 0.94 MG/DL 03/20/2012 COMPREHENSIVE METABOLIC 04757 CALCIUM 9.0 MG/DL 03/20/2012 COMPREHENSIVE METABOLIC 57353 POTASSIUM 4.4 MMOL/L 03/20/2012 COMPREHENSIVE METABOLIC 43210 PROT TOT 6.7 GM/DL 03/20/2012 COMPREHENSIVE METABOLIC 41729 Glucose 96 MG/DL 03/20/2012 COMPREHENSIVE METABOLIC 90116 BICARB 25 MMOL/L 03/20/2012 COMPREHENSIVE METABOLIC 50333 ANION GAP 8 MEQ/L 03/20/[place] [address] PRO T HARRY 21.6 SEC 03/20/[place] [address] INR M CMC 1.8 03/20/2012 Review of Systems System Result Effective Dates Cardiovascular hypertension 03/27/2019 Musculoskeletal back pain 03/27/2019 Respiratory cigarette smoking 03/27/2019 Respiratory COPD 019 Cardiovascular No arrhythmia 12/25/2018 Cardiovascular No chest pain/pressure 12/25/2018 Cardiovascular No edema 12/25/2018 Cardiovascular No exercise intolerance 12/25/2018 Cardiovascular No orthopnea 12/25/2018 Cardiovascular No palpitations 12/25/2018 Endocrine hyperlipidemia 12/25/2018 Respiratory No asthma Respiratory No cough Respiratory No dyspnea 0 12/25/2018 Respiratory No pleuritic pain 12/25/2018 Respiratory No productive sputum 12/25/2018 Respiratory No wheezing 12/25/2018 Respiratory cigarette smoking 12/25/2018 Gastrointestinal No hemorrhoids 12/25/2018 Gastrointestinal No hepatitis 12/25/2018 Gastrointestinal No abdominal pain 12/25/2018 Gastrointestinal No constipation 12/25/2018 Gastrointestinal No diarrhea 12/25/2018 Gastrointestinal No gastroesophageal reflu x 12/25/2018 Gastrointestinal No melena 12/25/2018 Gastrointestinal No nausea 12/25/2018 Gastrointestinal No vomiting 12/25/2018 Genitourinary/Nephrology No dysuria 12/25/2018 Genitourinary/Nephrology No nocturia 12/25/2018 Genitourinary/Nephrology No urinary incontinence 12/25/2018 Musculoskeletal arthralgia(s) 12/25/2018 Musculoskeletal back pain 12/25/2018 Musculoskeletal joint complaint 12/25/2018 Constitutional fatigue 1 08/19/2017 Musculoskeletal arthralgia(s) 06/19/2018 Musculoskeletal joint complaint 06/19/2018 Musculoskeletal back pain 06/19/2018 Neurologic paresthesia 1 08/19/2017 Respiratory No asthma Respiratory No cough Respiratory No dyspnea 1 08/19/2017 Respiratory No pleuritic pain 06/19/2018 Respiratory No productive sputum 06/19/2018 Respiratory No wheezing 06/19/2018 Cardiovascular No arrhythmia 06/19/2018 Cardiovascular No chest pain/pressure 06/19/2018 Cardiovascular No edema 06/19/2018 Cardiovascular No exercise intolerance 06/19/2018 Cardiovascular No orthopnea 06/19/2018 Cardiovascular No palpitations 06/19/2018 Gastrointestinal No hemorrhoids 06/19/2018 Gastrointestinal No hepatitis 06/19/2018 Gastrointestinal No abdominal pain 06/19/2018 Gastrointestinal No constipation 06/19/2018 Gastrointestinal No diarrhea 06/19/2018 Gastrointestinal No gastroesophageal reflu x 06/19/2018 Gastrointestinal No melena 06/19/2018 Gastrointestinal No nausea 06/19/2018 Gastrointestinal No vomiting 06/19/2018 Respiratory COPD 018 Respiratory cigarette smoking 06/19/2018 Endocrine hyperlipidemia 06/19/2018 Constitutional No fatigue 03/02/2018 Constitutional No fever 03/02/2018 Gastrointestinal No constipation 03/02/2018 Respiratory No cough 09/2017 Respiratory No chest congestion 03/02/2018 Respiratory No chest tightness 03/02/2018 Dermatologic No rash 09/2017 Genitourinary/Nephrology No anuria/oliguri a 03/02/2018 Musculoskeletal arthralgia(s) 03/02/2018 Constitutional No night sweats 08/31/2017 Constitutional No fatigue 08/31/2017 Constitutional No fever 08/31/2017 Constitutional No insomnia 08/31/2017 Constitutional No weight loss 08/31/2017 Musculoskeletal joint complaint 08/31/2017 Musculoskeletal neck pain 07/18/2017 Musculoskeletal low back pain 07/18/2017 Neurologic neck pain Musculoskeletal joint complaint 07/18/2017 Musculoskeletal No muscle weakness 04/24/2017 Musculoskeletal No myalgias 04/24/2017 Musculoskeletal No stiffness 04/24/2017 Musculoskeletal No swelling 04/24/2017 Musculoskeletal back pain 04/24/2017 Musculoskeletal neck pain 04/24/2017 Musculoskeletal back pain 01/04/2017 Musculoskeletal neck pain 01/04/2017 Respiratory No asthma Respiratory No cough 01/2017 Respiratory No dyspnea 0 01/04/2017 Respiratory No pleuritic pain 01/04/2017 Respiratory No productive sputum 01/04/2017 Respiratory No wheezing 01/04/2017 Respiratory COPD 017 Musculoskeletal joint complaint 09/12/2016 Cardiovascular No arrhythmia 09/07/2016 Cardiovascular No chest pain/pressure 09/07/2016 Cardiovascular No edema 09/07/2016 Cardiovascular No exercise intolerance 09/07/2016 Cardiovascular No orthopnea 09/07/2016 Cardiovascular No palpitations 09/07/2016 Respiratory cigarette smoking 09/07/2016 Ears/Nose/Throat/Neck No hearing loss 09/07/2016 Ears/Nose/Throat/Neck No nasal discharge 09/07/2016 Ears/Nose/Throat/Neck No sinus congestion 09/07/2016 Ears/Nose/Throat/Neck No sore throat 09/07/2016 Gastrointestinal No hemorrhoids 09/07/2016 Gastrointestinal No hepatitis 09/07/2016 Gastrointestinal No abdominal pain 09/07/2016 Gastrointestinal No constipation 09/07/2016 Gastrointestinal No diarrhea 09/07/2016 Gastrointestinal No gastroesophageal reflu x 09/07/2016 Gastrointestinal No melena 09/07/2016 Gastrointestinal No nausea 09/07/2016 Gastrointestinal No vomiting 09/07/2016 Genitourinary/Nephrology No dysuria 09/07/2016 Genitourinary/Nephrology No nocturia 09/07/2016 Genitourinary/Nephrology No urinary incontinence 09/07/2016 Musculoskeletal arthralgia(s) 09/07/2016 Musculoskeletal back pain 09/07/2016 Musculoskeletal joint complaint 09/07/2016 Musculoskeletal bone pain 09/07/2016 Dermatologic No rash 02/2017 Dermatologic No scar 02/2017 Neurologic No dizziness 09/07/2016 Neurologic No headache 0 09/07/2016 Neurologic No neck pain 09/07/2016 Neurologic No syncope Psychiatric No anxiety 0 09/07/2016 Psychiatric No depression 09/07/2016 Endocrine No goiter 02/0 02/2017 Endocrine No hyperglycemia 09/07/2016 Endocrine No hypoglycemia 09/07/2016 Endocrine hyperlipidemia 09/07/2016 Constitutional fatigue 0 09/07/2016 Constitutional fatigue 0 08/31/2015 Constitutional fever 07/2015 Ears/Nose/Throat/Neck postnasal drip 08/31/2015 Ears/Nose/Throat/Neck sinus congestion 08/31/2015 Respiratory No broncholiths 08/31/2015 Respiratory chest congestion 08/31/2015 Respiratory cough 2015 Respiratory cigarette smoking 08/31/2015 Respiratory COPD 016 Musculoskeletal back pain 08/31/2015 Neurologic pain, limb Musculoskeletal sciatica 08/31/2015 Cardiovascular hypertension 04/14/2015 Endocrine hyperlipidemia 04/14/2015 Musculoskeletal arthralgia(s) 04/14/2015 Musculoskeletal back pain 04/14/2015 Musculoskeletal arthralgia(s) 10/07/2014 Musculoskeletal back pain 10/07/2014 Musculoskeletal joint complaint 10/07/2014 Musculoskeletal myalgias 10/07/2014 Endocrine hyperlipidemia 10/07/2014 Cardiovascular No arrhythmia 10/07/2014 Cardiovascular No chest pain/pressure 10/07/2014 Cardiovascular No edema 10/07/2014 Cardiovascular No exercise intolerance 10/07/2014 Cardiovascular No orthopnea 10/07/2014 Cardiovascular No palpitations 10/07/2014 Respiratory No asthma Respiratory No cough 04/2015 Respiratory No dyspnea 0 10/07/2014 Respiratory No pleuritic pain 10/07/2014 Respiratory No productive sputum 10/07/2014 Respiratory No wheezing 10/07/2014 Gastrointestinal No hemorrhoids 10/07/2014 Gastrointestinal No hepatitis 10/07/2014 Gastrointestinal No abdominal pain 10/07/2014 Gastrointestinal No constipation 10/07/2014 Gastrointestinal No diarrhea 10/07/2014 Gastrointestinal No gastroesophageal reflu x 10/07/2014 Gastrointestinal No melena 10/07/2014 Gastrointestinal No nausea 10/07/2014 Gastrointestinal No vomiting 10/07/2014 Genitourinary/Nephrology No dysuria 10/07/2014 Genitourinary/Nephrology No nocturia 10/07/2014 Genitourinary/Nephrology No urinary incontinence 10/07/2014 Musculoskeletal joint complaint 05/01/2014 Musculoskeletal back pain 05/01/2014 Endocrine hyperlipidemia 05/01/2014 Endocrine hyperlipidemia 12/17/2013 Constitutional fatigue 0 12/17/2013 Respiratory COPD 014 Respiratory No cigarette smoking 12/17/2013 Gastrointestinal No hemorrhoids 12/17/2013 Gastrointestinal No hepatitis 12/17/2013 Gastrointestinal No abdominal pain 12/17/2013 Gastrointestinal No constipation 12/17/2013 Gastrointestinal No diarrhea 12/17/2013 Gastrointestinal No gastroesophageal reflu x 12/17/2013 Gastrointestinal No melena 12/17/2013 Gastrointestinal No nausea 12/17/2013 Gastrointestinal No vomiting 12/17/2013 Genitourinary/Nephrology No dysuria 12/17/2013 Genitourinary/Nephrology No nocturia 12/17/2013 Genitourinary/Nephrology No urinary incontinence 12/17/2013 Musculoskeletal joint complaint 12/17/2013 Dermatologic No rash Dermatologic No scar Neurologic No dizziness 12/17/2013 Neurologic No headache 0 12/17/2013 Neurologic No neck pain 12/17/2013 Neurologic No syncope Psychiatric No anxiety 0 12/17/2013 Psychiatric No depression 12/17/2013 Cardiovascular No arrhythmia 12/17/2013 Cardiovascular No chest pain/pressure 12/17/2013 Cardiovascular No edema 12/17/2013 Cardiovascular No exercise intolerance 12/17/2013 Cardiovascular No orthopnea 12/17/2013 Cardiovascular No palpitations 12/17/2013 Ears/Nose/Throat/Neck No hearing loss 12/17/2013 Ears/Nose/Throat/Neck No nasal discharge 12/17/2013 Ears/Nose/Throat/Neck No sinus congestion 12/17/2013 Ears/Nose/Throat/Neck No sore throat 12/17/2013 Respiratory chest congestion 12/11/2012 Respiratory cough 2012 Respiratory COPD 013 Respiratory cigarette smoking 12/11/2012 Respiratory chest tightness 12/11/2012 Respiratory COPD 013 Respiratory cough 2012 Respiratory dyspnea 05/0 01/2013 Respiratory dyspnea on exertion 12/04/2012 Respiratory chest congestion 12/04/2012 Respiratory chest tightness 12/04/2012 Dermatologic skin lesion 08/14/2012 Respiratory cigarette smoking 08/14/2012 Respiratory cough 2012 Respiratory chest tightness 08/14/2012 Respiratory cigarette smoking 07/17/2012 Dermatologic skin lesion 07/17/2012 Musculoskeletal joint complaint 03/20/2012 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 Endocrine hyperlipidemia 03/20/2012 Hematologic/Lymphatic venous thrombosis 12/08/2011 Musculoskeletal No back pain 12/08/2011 Constitutional No night sweats 08/11/2011 Constitutional No fatigue 08/11/2011 Constitutional No fever 08/11/2011 Constitutional No insomnia 08/11/2011 Constitutional No weight loss 08/11/2011 Musculoskeletal joint complaint 08/11/2011 Cardiovascular No arrhythmia 08/11/2011 Cardiovascular No chest pain/pressure 08/11/2011 Cardiovascular No edema 08/11/2011 Cardiovascular No exercise intolerance 08/11/2011 Cardiovascular No orthopnea 08/11/2011 Cardiovascular No palpitations 08/11/2011 Respiratory No asthma Respiratory No pleuritic pain 08/11/2011 Respiratory No productive sputum 08/11/2011 Respiratory No cough 06/2012 Respiratory No dyspnea 0 08/11/2011 Respiratory No wheezing 08/11/2011 Gastrointestinal No hemorrhoids 08/11/2011 Endocrine No goiter 07/31 Endocrine No hyperglycemia 08/11/2011 Endocrine No hypoglycemia 08/11/2011 Hematologic/Lymphatic No abnormal ec chymoses 08/11/2011 Hematologic/Lymphatic No petechiae 08/11/2011 Hematologic/Lymphatic No abnormal bl eeding and bruising 08/11/2011 Hematologic/Lymphatic No anemia 08/11/2011 Hematologic/Lymphatic No lymph node enlargement/mass 08/11/2011 Musculoskeletal back pain 08/11/2011 Gastrointestinal No hepatitis 08/11/2011 Gastrointestinal No abdominal pain 08/11/2011 Gastrointestinal No constipation 08/11/2011 Gastrointestinal No diarrhea 08/11/2011 Gastrointestinal No gastroesophageal reflu x 08/11/2011 Gastrointestinal No melena 08/11/2011 Gastrointestinal No nausea 08/11/2011 Gastrointestinal No vomiting 08/11/2011 Genitourinary/Nephrology No dysuria 08/11/2011 Genitourinary/Nephrology No nocturia 08/11/2011 Genitourinary/Nephrology No urinary incontinence 08/11/2011 Ears/Nose/Throat/Neck No hearing loss 08/11/2011 Ears/Nose/Throat/Neck No nasal discharge 08/11/2011 Ears/Nose/Throat/Neck No sinus congestion 08/11/2011 Ears/Nose/Throat/Neck No sore throat 08/11/2011 Dermatologic No rash 06/2012 Dermatologic No scar 06/2012 Neurologic No dizziness 08/11/2011 Neurologic No headache 0 08/11/2011 Neurologic No neck pain 08/11/2011 Neurologic No syncope Psychiatric No anxiety 0 08/11/2011 Psychiatric No depression 08/11/2011 Musculoskeletal back pain 05/26/2010 Endocrine hyperlipidemia 05/26/2010 Constitutional fatigue 1 Cardiovascular No arrhythmia 05/26/2010 Cardiovascular No chest pain/pressure 05/26/2010 Cardiovascular No edema 05/26/2010 Cardiovascular No exercise intolerance 05/26/2010 Cardiovascular No orthopnea 05/26/2010 Cardiovascular No palpitations 05/26/2010 Respiratory No asthma Respiratory No pleuritic pain 05/26/2010 Respiratory No productive sputum 05/26/2010 Respiratory No cough Respiratory No dyspnea 1 Respiratory No wheezing 05/26/2010 Gastrointestinal No hemorrhoids 05/26/2010 Gastrointestinal No hepatitis 05/26/2010 Gastrointestinal No abdominal pain 05/26/2010 Gastrointestinal No constipation 05/26/2010 Gastrointestinal No diarrhea 05/26/2010 Gastrointestinal No gastroesophageal reflu x 05/26/2010 Gastrointestinal No melena 05/26/2010 Gastrointestinal No nausea 05/26/2010 Gastrointestinal No vomiting 05/26/2010 Respiratory cigarette smoking 05/26/2010 Genitourinary/Nephrology No dysuria 05/26/2010 Genitourinary/Nephrology No nocturia 05/26/2010 Genitourinary/Nephrology No urinary incontinence 05/26/2010 Physical Exam Exam Name System Name It em Name Status Result Effective Dates Notes Full Exam - General Constitutional general appearance Overall: well nourished 03/27/2019 None Full Exam - General Constitutional general appearance Overall: well developed 03/27/2019 None Full Exam - General Constitutional general appearance Overall: in no acute distress 03/27/2019 None Full Exam - General Neurologic mental status Overall: alert 9 None Full Exam - General Neurologic mental status Overall: oriented 03/27/2019 None Full Exam - General Psychiatric mood and affect Overall: normal mood and affect 03/27/2019 None Full Exam - General Constitutional general appearance Overall: well nourished 12/25/2018 None Full Exam - General Constitutional general appearance Overall: well developed 12/25/2018 None Full Exam - General Constitutional general appearance Overall: in no acute distress 12/25/2018 None Full Exam - General Constitutional general appearance Hygiene/Attention to Grooming: smells of cigarette smoke 12/25/2018 None Full Exam - General Respiratory auscultation Overall: breath sounds clear bilater ally 12/25/2018 None Full Exam - General Respiratory auscultation Basilar: diminished 12/25/2018 None Full Exam - General Cardiovascular auscultation of heart Overall: regular rate 12/25/2018 None Full Exam - General Cardiovascular auscultation of heart Overall: normal heart sounds 12/25/2018 None Full Exam - General Cardiovascular auscultation of heart S4 (atrial gallop): present 12/25/2018 None Full Exam - General Cardiovascular extremities Overall: no clubbing 12/25/2018 None Full Exam - General Cardiovascular extremities Overall: No edema 12/25/2018 None Full Exam - General Cardiovascular extremities Overall: No cyanosis 12/25/2018 None Full Exam - General Neurologic mental status Overall: alert 9 None Full Exam - General Neurologic mental status Overall: oriented 12/25/2018 None Full Exam - General Psychiatric mood and affect Overall: normal mood and affect 12/25/2018 None Full Exam - General Constitutional general appearance Overall: well nourished 06/19/2018 None Full Exam - General Constitutional general appearance Overall: well developed 06/19/2018 None Full Exam - General Constitutional general appearance Overall: in no acute distress 06/19/2018 None Full Exam - General Neurologic mental status Overall: alert 8 None Full Exam - General Neurologic mental status Overall: oriented 06/19/2018 None Full Exam - General Psychiatric mood and affect Overall: normal mood and affect 06/19/2018 None Full Exam - General Musculoskeletal gait and station Station: kyphosis 06/19/2018 None Full Exam - General Musculoskeletal spine, ribs and pelvis Spine: tender @ thoracic spine 06/19/2018 right upper thoracics Full Exam - General Musculoskeletal right upper extremity Palpation - right wrist: joint swelling 06/19/2018 None Full Exam - General Musculoskeletal right upper extremity Palpation - right wrist: tender 06/19/2018 None Full Exam - General Musculoskeletal right upper extremity Inspection - right wrist: swelling 06/19/2018 None Full Exam - General Musculoskeletal right upper extremity Inspection - right wrist: nodule 06/19/2018 None Full Exam - General Constitutional general appearance Overall: well nourished 03/02/2018 None Full Exam - General Constitutional general appearance Overall: in no acute distress 03/02/2018 None Full Exam - General Cardiovascular auscultation of heart Overall: regular rate 03/02/2018 None Full Exam - General Cardiovascular auscultation of heart Overall: no murmurs 03/02/2018 None Full Exam - General Respiratory respiratory effort/rhythm Overall: no retractions 03/02/2018 None Full Exam - General Respiratory respiratory effort/rhythm Overall: normal rate 03/02/2018 None Full Exam - General Respiratory auscultation Overall: breath sounds clear bilater ally 03/02/2018 None Full Exam - General Abdomen abdominal exam Overall: no tenderness 03/02/2018 None Full Exam - General Abdomen abdominal exam Overall: soft 03/02/2018 None Full Exam - General Abdomen abdominal exam Overall: no masses 03/02/2018 None Full Exam - General Abdomen abdominal exam Overall: normal bowel sounds 03/02/2018 None Full Exam - General Neurologic mental status Overall: alert 8 None Full Exam - General Neurologic mental status Overall: oriented 03/02/2018 None Full Exam - General Constitutional general appearance Overall: well nourished 08/31/2017 None Full Exam - General Constitutional general appearance Overall: well developed 08/31/2017 None Full Exam - General Constitutional general appearance Overall: in no acute distress 08/31/2017 None Full Exam - General Neurologic mental status Overall: alert 8 None Full Exam - General Neurologic mental status Overall: oriented 08/31/2017 None Full Exam - General Psychiatric mood and affect Overall: normal mood and affect 08/31/2017 None Full Exam - General Constitutional general appearance Hygiene/Attention to Grooming: smells of cigarette smoke 08/31/2017 None Full Exam - General Musculoskeletal right upper extremity Inspection - right wrist: swelling 08/31/2017 None Full Exam - General Musculoskeletal right upper extremity Palpation - right wrist: tender 08/31/2017 None Full Exam - General Musculoskeletal right upper extremity Palpation - right wrist: tendon sheath swelling 08/31/2017 None Full Exam - General Musculoskeletal right upper extremity Palpation - right wrist: joint swelling 08/31/2017 None Full Exam - General Musculoskeletal right upper extremity ROM - right wrist: pain with flexion 08/31/2017 None Full Exam - General Musculoskeletal right upper extremity ROM - right wrist: pain with extension 08/31/2017 None Full Exam - General Musculoskeletal right upper extremity ROM - right wrist: pain with radial bending 08/31/2017 None Full Exam - General Musculoskeletal right upper extremity ROM - right wrist: pain with ulnar bending 08/31/2017 None Full Exam - General Constitutional general appearance Overall: well nourished 07/18/2017 None Full Exam - General Constitutional general appearance Overall: well developed 07/18/2017 None Full Exam - General Constitutional general appearance Overall: in no acute distress 07/18/2017 None Full Exam - General Neurologic mental status Overall: alert 7 None Full Exam - General Neurologic mental status Overall: oriented 07/18/2017 None Full Exam - General Psychiatric mood and affect Overall: normal mood and affect 07/18/2017 None Full Exam - General Musculoskeletal spine, ribs and pelvis Spine: tender @ cervical spine 07/18/2017 None Full Exam - General Constitutional general appearance Hygiene/Attention to Grooming: smells of cigarette smoke 07/18/2017 None Full Exam - General Musculoskeletal spine, ribs and pelvis Spine: deformity 07/18/2017 right sided lemon sized l ipoma Full Exam - General Constitutional general appearance Overall: well nourished 04/24/2017 None Full Exam - General Constitutional general appearance Overall: well developed 04/24/2017 None Full Exam - General Constitutional general appearance Overall: in no acute distress 04/24/2017 None Full Exam - General Constitutional general appearance Hygiene/Attention to Grooming: smells of cigarette smoke 04/24/2017 None Full Exam - General Neurologic mental status Overall: alert 7 None Full Exam - General Neurologic mental status Overall: oriented 04/24/2017 None Full Exam - General Psychiatric mood and affect Overall: normal mood and affect 04/24/2017 None Full Exam - General Musculoskeletal spine, ribs and pelvis Spine: tender @ cervical spine 04/24/2017 large lipoma to right ryan e of neck Full Exam - General Musculoskeletal spine, ribs and pelvis Spine: tender @ lumbar spin e 04/24/2017 None Full Exam - General Constitutional general appearance Overall: well nourished 01/04/2017 None Full Exam - General Constitutional general appearance Overall: well developed 01/04/2017 None Full Exam - General Constitutional general appearance Overall: in no acute distress 01/04/2017 None Full Exam - General Neurologic mental status Overall: alert 7 None Full Exam - General Neurologic mental status Overall: oriented 01/04/2017 None Full Exam - General Psychiatric mood and affect Overall: normal mood and affect 01/04/2017 None Full Exam - General Respiratory auscultation Basilar: diminished 01/04/2017 None Full Exam - General Respiratory auscultation Basilar: rhonchi 01/04/2017 None Full Exam - General Respiratory auscultation Apical: diminished 01/04/2017 None Full Exam - General Respiratory auscultation Apical: rhonchi 01/05/20 17 None Full Exam - General Cardiovascular auscultation of heart Overall: regular rate 01/04/2017 None Full Exam - General Cardiovascular auscultation of heart Overall: normal heart sounds 01/04/2017 None Full Exam - General Cardiovascular auscultation of heart Overall: no murmurs 01/04/2017 None Full Exam - General Cardiovascular extremities Overall: no clubbing 01/04/2017 None Full Exam - General Cardiovascular extremities Overall: No edema 01/04/2017 None Full Exam - General Cardiovascular extremities Overall: No cyanosis 01/04/2017 None Full Exam - General Musculoskeletal spine, ribs and pelvis Spine: tender @ cervical spine 01/04/2017 left lateral neck Full Exam - General Musculoskeletal gait and station Station: kyphosis 01/04/2017 None Full Exam - General Constitutional general appearance Overall: well nourished 09/12/2016 None Full Exam - General Constitutional general appearance Overall: well developed 09/12/2016 None Full Exam - General Constitutional general appearance Overall: in no acute distress 09/12/2016 None Full Exam - General Constitutional general appearance Hygiene/Attention to Grooming: smells of cigarette smoke 09/12/2016 None Full Exam - General Neurologic mental status Overall: alert 7 None Full Exam - General Neurologic mental status Overall: oriented 09/12/2016 None Full Exam - General Psychiatric mood and affect Overall: normal mood and affect 09/12/2016 None Full Exam - General Musculoskeletal right upper extremity Inspection - right wrist: swelling 09/12/2016 laterally Full Exam - General Musculoskeletal right upper extremity Palpation - right wrist: tender 09/12/2016 laterally Full Exam - General Musculoskeletal right upper extremity ROM - right wrist: pain with flexion 09/12/2016 None Full Exam - General Musculoskeletal right upper extremity ROM - right wrist: pain with extension 09/12/2016 None Full Exam - General Musculoskeletal right upper extremity ROM - right wrist: pain with radial bending 09/12/2016 None Full Exam - General Musculoskeletal right upper extremity ROM - right wrist: pain with ulnar bending 09/12/2016 None Full Exam - General Constitutional general appearance Overall: well nourished 09/07/2016 None Full Exam - General Constitutional general appearance Overall: well developed 09/07/2016 None Full Exam - General Constitutional general appearance Overall: in no acute distress 09/07/2016 None Full Exam - General Constitutional general appearance Hygiene/Attention to Grooming: smells of cigarette smoke 09/07/2016 None Full Exam - General Respiratory auscultation Overall: breath sounds clear bilater ally 09/07/2016 None Full Exam - General Cardiovascular auscultation of heart Overall: regular rate 09/07/2016 None Full Exam - General Cardiovascular auscultation of heart Overall: normal heart sounds 09/07/2016 None Full Exam - General Cardiovascular auscultation of heart Overall: no murmurs 09/07/2016 None Full Exam - General Cardiovascular extremities Overall: no clubbing 09/07/2016 None Full Exam - General Cardiovascular extremities Overall: No edema 09/07/2016 None Full Exam - General Cardiovascular extremities Overall: No cyanosis 09/07/2016 None Full Exam - General Neck inspection of neck Overall: normal size 09/07/2016 None Full Exam - General Neck inspection of neck Overall: no masses 09/07/2016 None Full Exam - General Neurologic mental status Overall: alert 7 None Full Exam - General Neurologic mental status Overall: oriented 09/07/2016 None Full Exam - General Psychiatric mood and affect Overall: normal mood and affect 09/07/2016 None Full Exam - General Musculoskeletal gait and station Gait: antalgic 09/07/2016 None Full Exam - General Musculoskeletal gait and station Station: kyphosis 09/07/2016 None Full Exam - General Abdomen abdominal exam Overall: no masses 09/07/2016 None Full Exam - General Abdomen abdominal exam Overall: normal bowel sounds 09/07/2016 None Full Exam - General Abdomen abdominal exam Overall: soft 09/07/2016 None Full Exam - General Abdomen abdominal exam Overall: no tenderness 09/07/2016 None Full Exam - General Abdomen abdominal exam Contour: scaphoid 2016 None Full Exam - General Abdomen abdominal exam Skin: presence of a scar 09/07/2016 None Full Exam - General Abdomen hernia exam Abdominal hernia present: non-tender 09/07/2016 None Full Exam - General Abdomen hernia exam Abdominal hernia present: reducible 09/07/2016 None Full Exam - General Ears/Nose/Throat otoscopic exam Overall: external auditory canals clear 09/07/2016 None Full Exam - General Ears/Nose/Throat otoscopic exam Overall: tympanic membranes clear 09/07/2016 None Full Exam - General Ears/Nose/Throat internal nose Overall: bilateral nasal cavities clear 09/07/2016 None Full Exam - General Ears/Nose/Throat oral cavity/pharynx/larynx Oropharynx: erythema 09/07/2016 dry Full Exam - General Respiratory auscultation Basilar: diminished 09/07/2016 None Full Exam - General Respiratory auscultation Basilar: rhonchi 09/07/2016 None Full Exam - General Respiratory auscultation Apical: diminished 09/07/2016 None Full Exam - General Constitutional general appearance Overall: well nourished 08/31/2015 None Full Exam - General Constitutional general appearance Overall: well developed 08/31/2015 None Full Exam - General Constitutional general appearance Overall: in no acute distress 08/31/2015 None Full Exam - General Ears/Nose/Throat otoscopic exam Overall: external auditory canals clear 08/31/2015 None Full Exam - General Ears/Nose/Throat otoscopic exam Left tympanic membrane: air- fluid level 08/31/2015 None Full Exam - General Ears/Nose/Throat otoscopic exam Right tympanic membrane: air- fluid level 08/31/2015 None Full Exam - General Ears/Nose/Throat internal nose Turbinates: hypertrophy 08/31/2015 None Full Exam - General Ears/Nose/Throat internal nose Drainage: clear 08/31/2015 None Full Exam - General Ears/Nose/Throat oral cavity/pharynx/larynx Oropharynx: erythema 08/31/2015 None Full Exam - General Cardiovascular auscultation of heart Overall: regular rate 08/31/2015 None Full Exam - General Cardiovascular auscultation of heart Overall: normal heart sounds 08/31/2015 None Full Exam - General Cardiovascular auscultation of heart Murmur: previously known murmur unchanged 08/31/2015 None Full Exam - General Neurologic mental status Overall: alert 6 None Full Exam - General Neurologic mental status Overall: oriented 08/31/2015 None Full Exam - General Psychiatric mood and affect Overall: normal mood and affect 08/31/2015 None Full Exam - General Respiratory auscultation Basilar: rhonchi 08/31/2015 None Full Exam - General Respiratory auscultation Basilar: diminished 08/31/2015 None Full Exam - General Respiratory auscultation Apical: rhonchi 08/31/19 16 None Full Exam - General Respiratory auscultation Apical: coarse 6 None Full Exam - General Respiratory auscultation Basilar: coarse 08/31/19 16 None Full Exam - General Abdomen abdominal exam Overall: no masses 08/31/2015 None Full Exam - General Abdomen abdominal exam Overall: no tenderness 08/31/2015 None Full Exam - General Abdomen abdominal exam Overall: normal bowel sounds 08/31/2015 None Full Exam - General Abdomen abdominal exam Overall: soft 08/31/2015 None Full Exam - General Musculoskeletal spine, ribs and pelvis Spine: tender @ lumbar spin e 08/31/2015 None Full Exam - General Musculoskeletal spine, ribs and pelvis Sacroiliac joints: tender right sacroiliac joint 08/31/2015 None Full Exam - General Constitutional general appearance Overall: well nourished 04/14/2015 None Full Exam - General Constitutional general appearance Overall: well developed 04/14/2015 None Full Exam - General Constitutional general appearance Overall: in no acute distress 04/14/2015 None Full Exam - General Neurologic mental status Overall: alert 5 None Full Exam - General Neurologic mental status Overall: oriented 04/14/2015 None Full Exam - General Psychiatric mood and affect Overall: normal mood and affect 04/14/2015 None Full Exam - General Respiratory auscultation Overall: breath sounds clear bilater ally 04/14/2015 None Full Exam - General Cardiovascular auscultation of heart Overall: regular rate 04/14/2015 None Full Exam - General Cardiovascular auscultation of heart Overall: normal heart sounds 04/14/2015 None Full Exam - General Cardiovascular auscultation of heart S3 (ventricular gallop): present 04/14/2015 None Full Exam - General Cardiovascular auscultation of heart Murmur: previously known murmur unchanged 04/14/2015 None Full Exam - General Cardiovascular extremities Overall: no clubbing 04/14/2015 None Full Exam - General Cardiovascular extremities Overall: No edema 04/14/2015 None Full Exam - General Cardiovascular extremities Overall: No cyanosis 04/14/2015 None Full Exam - General Constitutional general appearance Overall: well nourished 10/07/2014 None Full Exam - General Constitutional general appearance Overall: well developed 10/07/2014 None Full Exam - General Constitutional general appearance Overall: in no acute distress 10/07/2014 None Full Exam - General Neurologic mental status Overall: alert 5 None Full Exam - General Neurologic mental status Overall: oriented 10/07/2014 None Full Exam - General Psychiatric mood and affect Overall: normal mood and affect 10/07/2014 None Full Exam - General Respiratory auscultation Basilar: diminished 10/07/2014 None Full Exam - General Respiratory auscultation Basilar: clear 5 None Full Exam - General Respiratory auscultation Apical: diminished 10/07/2014 None Full Exam - General Respiratory auscultation Apical: clear 10/07/2014 None Full Exam - General Cardiovascular auscultation of heart Overall: regular rate 10/07/2014 None Full Exam - General Cardiovascular auscultation of heart Overall: normal heart sounds 10/07/2014 None Full Exam - General Cardiovascular auscultation of heart S3 (ventricular gallop): present 10/07/2014 None Full Exam - General Cardiovascular auscultation of heart Murmur: previously known murmur unchanged 10/07/2014 None Full Exam - General Cardiovascular extremities Overall: no clubbing 10/07/2014 None Full Exam - General Cardiovascular extremities Overall: No edema 10/07/2014 None Full Exam - General Cardiovascular extremities Overall: No cyanosis 10/07/2014 None Full Exam - General Constitutional general appearance Overall: well nourished 05/01/2014 None Full Exam - General Constitutional general appearance Overall: well developed 05/01/2014 None Full Exam - General Constitutional general appearance Overall: in no acute distress 05/01/2014 None Full Exam - General Neurologic mental status Overall: alert 4 None Full Exam - General Neurologic mental status Overall: oriented 05/01/2014 None Full Exam - General Psychiatric mood and affect Overall: normal mood and affect 05/01/2014 None Full Exam - General Respiratory auscultation Overall: breath sounds clear bilater ally 05/01/2014 None Full Exam - General Cardiovascular auscultation of heart Overall: regular rate 05/01/2014 None Full Exam - General Cardiovascular auscultation of heart Overall: normal heart sounds 05/01/2014 None Full Exam - General Cardiovascular auscultation of heart Overall: no murmurs 05/01/2014 None Full Exam - General Respiratory auscultation Apical: diminished 05/01/2014 None Full Exam - General Respiratory auscultation Basilar: diminished 05/01/2014 None Full Exam - General Cardiovascular extremities Overall: no clubbing 05/01/2014 None Full Exam - General Cardiovascular extremities Overall: No edema 05/01/2014 None Full Exam - General Cardiovascular extremities Overall: No cyanosis 05/01/2014 None Full Exam - General Constitutional general appearance Overall: well nourished 12/17/2013 None Full Exam - General Constitutional general appearance Overall: well developed 12/17/2013 None Full Exam - General Constitutional general appearance Overall: in no acute distress 12/17/2013 None Full Exam - General Neurologic mental status Overall: alert 4 None Full Exam - General Neurologic mental status Overall: oriented 12/17/2013 None Full Exam - General Psychiatric mood and affect Overall: normal mood and affect 12/17/2013 None Full Exam - General Abdomen abdominal exam Overall: no masses 12/17/2013 None Full Exam - General Abdomen abdominal exam Overall: no tenderness 12/17/2013 None Full Exam - General Abdomen abdominal exam Overall: normal bowel sounds 12/17/2013 None Full Exam - General Abdomen abdominal exam Overall: soft 12/17/2013 None Full Exam - General Respiratory auscultation Overall: breath sounds clear bilater ally 12/17/2013 None Full Exam - General Cardiovascular auscultation of heart Overall: regular rate 12/17/2013 None Full Exam - General Cardiovascular auscultation of heart Overall: normal heart sounds 12/17/2013 None Full Exam - General Cardiovascular auscultation of heart S3 (ventricular gallop): present 12/17/2013 None Full Exam - General Cardiovascular extremities Overall: no clubbing 12/17/2013 None Full Exam - General Cardiovascular extremities Overall: No edema 12/17/2013 None Full Exam - General Cardiovascular extremities Overall: No cyanosis 12/17/2013 None Full Exam - General Ears/Nose/Throat otoscopic exam Overall: external auditory canals clear 12/17/2013 None Full Exam - General Ears/Nose/Throat otoscopic exam Overall: tympanic membranes clear 12/17/2013 None Full Exam - General Ears/Nose/Throat internal nose Overall: bilateral nasal cavities clear 12/17/2013 None Full Exam - General Ears/Nose/Throat oral cavity/pharynx/larynx Overall: oral mucosa clear 12/17/2013 None Full Exam - General Neck inspection of neck Overall: normal size 12/17/2013 None Full Exam - General Neck inspection of neck Overall: no masses 12/17/2013 None Full Exam - General Musculoskeletal left lower extremity Palpation - left knee: crepitus 12/17/2013 None Full Exam - General Musculoskeletal right upper extremity Inspection - right wrist: swelling 12/17/2013 None Full Exam - General Musculoskeletal right upper extremity Palpation - right wrist: tender 12/17/2013 None Full Exam - General Constitutional general appearance Overall: well nourished 12/11/2012 None Full Exam - General Constitutional general appearance Overall: well developed 12/11/2012 None Full Exam - General Constitutional general appearance Overall: in no acute distress 12/11/2012 None Full Exam - General Respiratory auscultation Basilar: diminished 12/11/2012 None Full Exam - General Respiratory auscultation Basilar: rhonchi 12/11/2012 None Full Exam - General Respiratory auscultation Apical: diminished 12/11/2012 None Full Exam - General Respiratory auscultation Apical: rhonchi 12/12/19 13 None Full Exam - General Constitutional general appearance Hygiene/Attention to Grooming: smells of cigarette smoke 12/11/2012 None Full Exam - General Cardiovascular auscultation of heart Overall: regular rate 12/11/2012 None Full Exam - General Cardiovascular auscultation of heart Overall: normal heart sounds 12/11/2012 None Full Exam - General Cardiovascular auscultation of heart Overall: no murmurs 12/11/2012 None Full Exam - General Neurologic mental status Overall: alert 3 None Full Exam - General Neurologic mental status Overall: oriented 12/11/2012 None Full Exam - General Psychiatric mood and affect Overall: normal mood and affect 12/11/2012 None Full Exam - General Constitutional general appearance Overall: well nourished 12/04/2012 None Full Exam - General Constitutional general appearance Overall: well developed 12/04/2012 None Full Exam - General Constitutional general appearance Overall: in no acute distress 12/04/2012 None Full Exam - General Neurologic mental status Overall: alert 3 None Full Exam - General Neurologic mental status Overall: oriented 12/04/2012 None Full Exam - General Psychiatric mood and affect Overall: normal mood and affect 12/04/2012 None Full Exam - General Respiratory auscultation Basilar: coarse 12/05/19 13 None Full Exam - General Respiratory auscultation Basilar: bilateral rales 12/04/2012 None Full Exam - General Respiratory auscultation Basilar: rhonchi 12/04/2012 None Full Exam - General Respiratory auscultation Apical: coarse 3 None Full Exam - General Respiratory auscultation Apical: rales bilaterally 12/04/2012 None Full Exam - General Respiratory auscultation Apical: rhonchi 12/05/19 13 None Full Exam - General Cardiovascular auscultation of heart Overall: regular rate 12/04/2012 None Full Exam - General Cardiovascular auscultation of heart Overall: normal heart sounds 12/04/2012 None Full Exam - General Cardiovascular auscultation of heart S3 (ventricular gallop): present 12/04/2012 None Full Exam - General Ears/Nose/Throat otoscopic exam Left tympanic membrane: air- fluid level 12/04/2012 None Full Exam - General Ears/Nose/Throat otoscopic exam Right tympanic membrane: air- fluid level 12/04/2012 None Full Exam - General Ears/Nose/Throat internal nose Turbinates: hypertrophy 12/04/2012 None Full Exam - General Ears/Nose/Throat oral cavity/pharynx/larynx Oropharynx: erythema 12/04/2012 None Full Exam - General Constitutional general appearance Overall: well nourished 08/14/2012 None Full Exam - General Constitutional general appearance Overall: well developed 08/14/2012 None Full Exam - General Constitutional general appearance Overall: in no acute distress 08/14/2012 None Full Exam - General Neurologic mental status Overall: alert 3 None Full Exam - General Neurologic mental status Overall: oriented 08/14/2012 None Full Exam - General Psychiatric mood and affect Overall: normal mood and affect 08/14/2012 None Full Exam - General Respiratory auscultation Basilar: diminished 08/14/2012 None Full Exam - General Respiratory auscultation Basilar: clear 3 None Full Exam - General Respiratory auscultation Apical: diminished 08/14/2012 None Full Exam - General Respiratory auscultation Apical: clear 08/14/2012 None Full Exam - General Cardiovascular auscultation of heart Overall: regular rate 08/14/2012 None Full Exam - General Cardiovascular auscultation of heart Overall: normal heart sounds 08/14/2012 None Full Exam - General Cardiovascular auscultation of heart Overall: no murmurs 08/14/2012 None Full Exam - General Integument inspection of skin Location: left hand 08/14/2012 1cm red scaling lesion in webspace betwe en 2nd/3rd finger Full Exam - General Constitutional general appearance Overall: well nourished 07/17/2012 None Full Exam - General Constitutional general appearance Overall: well developed 07/17/2012 None Full Exam - General Constitutional general appearance Overall: in no acute distress 07/17/2012 None Full Exam - General Neurologic mental status Overall: alert 2 None Full Exam - General Neurologic mental status Overall: oriented 07/17/2012 None Full Exam - General Psychiatric mood and affect Overall: normal mood and affect 07/17/2012 None Full Exam - General Respiratory auscultation Basilar: diminished 07/17/2012 None Full Exam - General Respiratory auscultation Apical: diminished 07/17/2012 None Full Exam - General Cardiovascular auscultation of heart Overall: regular rate 07/17/2012 None Full Exam - General Cardiovascular auscultation of heart Overall: normal heart sounds 07/17/2012 None Full Exam - General Cardiovascular auscultation of heart Overall: no murmurs 07/17/2012 None Full Exam - General Cardiovascular extremities Overall: no clubbing 07/17/2012 None Full Exam - General Cardiovascular extremities Overall: No edema 07/17/2012 None Full Exam - General Cardiovascular extremities Overall: No cyanosis 07/17/2012 None Full Exam - General Integument inspection of skin Location: left hand 07/17/2012 3rd finger laterally at base with 1cm er ythemic scaled lesion Full Exam - General Constitutional general appearance Overall: well nourished 03/20/2012 None Full Exam - General Constitutional general appearance Overall: well developed 03/20/2012 None Full Exam - General Constitutional general appearance Overall: in no acute distress 03/20/2012 None Full Exam - General Respiratory auscultation Overall: breath sounds clear bilater ally 03/20/2012 None Full Exam - General Cardiovascular auscultation of heart Overall: regular rate 03/20/2012 None Full Exam - General Cardiovascular auscultation of heart Overall: normal heart sounds 03/20/2012 None Full Exam - General Cardiovascular auscultation of heart Overall: no murmurs 03/20/2012 None Full Exam - General Cardiovascular extremities Overall: no clubbing 03/20/2012 None Full Exam - General Cardiovascular extremities Overall: No cyanosis 03/20/2012 None Full Exam - General Cardiovascular extremities Edema present: severity 1+ - 4+: 1 on left 03/20/2012 None Full Exam - General Neurologic mental status Overall: alert 2 None Full Exam - General Neurologic mental status Overall: oriented 03/20/2012 None Full Exam - General Psychiatric mood and affect Overall: normal mood and affect 03/20/2012 None Full Exam - General Musculoskeletal right upper extremity Inspection - right elbow: a normal exam 03/20/2012 None Full Exam - General Musculoskeletal right upper extremity Inspection - right forearm: a normal exam 03/20/2012 None Full Exam - General Musculoskeletal right upper extremity Inspection - right upper arm: a normal exam 03/20/2012 None Full Exam - General Musculoskeletal left lower extremity Inspection - left knee: swelling 03/20/2012 None Full Exam - General Musculoskeletal left lower extremity Inspection - left knee: redness 03/20/2012 None Full Exam - General Musculoskeletal left lower extremity Palpation - left knee: warm 03/20/2012 None Full Exam - General Musculoskeletal left lower extremity Palpation - left knee: large effusion 03/20/2012 None Full Exam - General Constitutional general appearance Overall: well nourished 12/08/2011 None Full Exam - General Constitutional general appearance Overall: well developed 12/08/2011 None Full Exam - General Constitutional general appearance Overall: in no acute distress 12/08/2011 None Full Exam - General Neurologic mental status Overall: alert 2 None Full Exam - General Neurologic mental status Overall: oriented 12/08/2011 None Full Exam - General Psychiatric mood and affect Overall: normal mood and affect 12/08/2011 None Full Exam - General Integument inspection of skin Location: right arm 12/08/2011 lateral elbow with some erythema and ind uration and TTP Full Exam - General Musculoskeletal spine, ribs and pelvis Spine: tender @ lumbar spin e 12/08/2011 None Full Exam - General Integument inspection of skin Location: back 12/08/2011 right lower back over SI area with appro ximately 1/2 dollar size contusion Full Exam - General Respiratory auscultation Diffuse: a normal exam 08/11/2011 None Full Exam - General Cardiovascular auscultation of heart Overall: no murmurs 08/11/2011 None Full Exam - General Cardiovascular auscultation of heart Overall: regular rate 08/11/2011 None Full Exam - General Cardiovascular auscultation of heart Overall: normal heart sounds 08/11/2011 None Full Exam - General Cardiovascular auscultation of heart S1: a normal exam 08/11/2011 None Full Exam - General Cardiovascular auscultation of heart S2: a normal exam 08/11/2011 None Full Exam - General Cardiovascular auscultation of heart Rhythm: regular rhythm 08/11/2011 None Full Exam - General Cardiovascular auscultation of heart Rate: regular rate 08/11/2011 None Full Exam - General Cardiovascular auscultation of heart S3 (ventricular gallop): present 08/11/2011 None Full Exam - General Neck inspection of neck Overall: normal size 08/11/2011 None Full Exam - General Neck inspection of neck Overall: no masses 08/11/2011 None Full Exam - General Cardiovascular extremities Overall: no clubbing 08/11/2011 None Full Exam - General Cardiovascular extremities Overall: No edema 08/11/2011 None Full Exam - General Cardiovascular extremities Overall: No cyanosis 08/11/2011 None Full Exam - General Abdomen abdominal exam Overall: no masses 08/11/2011 None Full Exam - General Constitutional general appearance Overall: in no acute distress 08/11/2011 None Full Exam - General Constitutional general appearance Overall: well developed 08/11/2011 None Full Exam - General Constitutional general appearance Overall: well nourished 08/11/2011 None Full Exam - General Respiratory auscultation Right upper lung field: a normal exa m 08/11/2011 None Full Exam - General Respiratory auscultation Right middle lung field: a normal ex am 08/11/2011 None Full Exam - General Respiratory auscultation Right lower lung field: a normal exa m 08/11/2011 None Full Exam - General Respiratory auscultation Left lower lung field: a normal exam 08/11/2011 None Full Exam - General Respiratory auscultation Overall: breath sounds clear bilater ally 08/11/2011 None Full Exam - General Respiratory auscultation Left upper lung field: a normal exam 08/11/2011 None Full Exam - General Abdomen abdominal exam Overall: no tenderness 08/11/2011 None Full Exam - General Abdomen abdominal exam Overall: normal bowel sounds 08/11/2011 None Full Exam - General Abdomen abdominal exam Overall: soft 08/11/2011 None Full Exam - General Neurologic mental status Overall: alert 2 None Full Exam - General Neurologic mental status Overall: oriented 08/11/2011 None Full Exam - General Psychiatric mood and affect Overall: normal mood and affect 08/11/2011 None Full Exam - General Musculoskeletal left lower extremity Inspection - left knee: swelling 08/11/2011 None Full Exam - General Musculoskeletal left lower extremity Palpation - left knee: crepitus 08/11/2011 None Full Exam - General Musculoskeletal left lower extremity ROM - left knee: crepitus 08/11/2011 None Full Exam - General Musculoskeletal gait and station Gait: antalgic 08/11/2011 None Full Exam - General Neurologic mental status Level of alertness: alert 05/26/2010 None Full Exam - General Psychiatric mood and affect Overall: normal mood and affect 05/26/2010 None Full Exam - General Musculoskeletal spine, ribs and pelvis Spine: tender @ thoracic spine 05/26/2010 None Full Exam - General Musculoskeletal spine, ribs and pelvis Spine: tender @ lumbar spin e 05/26/2010 None Full Exam - General Cardiovascular auscultation of heart Overall: regular rate 05/26/2010 None Full Exam - General Cardiovascular auscultation of heart Overall: normal heart sounds 05/26/2010 None Full Exam - General Cardiovascular auscultation of heart Overall: no murmurs 05/26/2010 None Full Exam - General Cardiovascular auscultation of heart Rate: regular rate 05/26/2010 None Full Exam - General Cardiovascular auscultation of heart Rhythm: regular rhythm 05/26/2010 None Full Exam - General Cardiovascular auscultation of heart S1: a normal exam 05/26/2010 None Full Exam - General Cardiovascular auscultation of heart S2: a normal exam 05/26/2010 None Full Exam - General Cardiovascular auscultation of heart S3 (ventricular gallop): present 05/26/2010 None Full Exam - General Constitutional general appearance Hygiene/Attention to Grooming: smells of cigarette smoke 05/26/2010 None Full Exam - General Respiratory auscultation Apical: clear 05/26/2010 None Full Exam - General Constitutional general appearance Overall: well nourished 05/26/2010 None Full Exam - General Constitutional general appearance Overall: well developed 05/26/2010 None Full Exam - General Constitutional general appearance Overall: in no acute distress 05/26/2010 None Full Exam - General Neurologic mental status Overall: alert 0 None Full Exam - General Neurologic mental status Overall: oriented 05/26/2010 None Full Exam - General Respiratory auscultation Basilar: diminished 05/26/2010 None Full Exam - General Abdomen abdominal exam Overall: no masses 05/26/2010 None Full Exam - General Abdomen abdominal exam Overall: no tenderness 05/26/2010 None Full Exam - General Abdomen abdominal exam Overall: normal bowel sounds 05/26/2010 None Full Exam - General Abdomen abdominal exam Overall: soft 05/26/2010 None Procedures Procedure Codes Date ROUTINE VENIPUNCTURE CPT-4: 17504 06/19/2018 ASSAY OF FREE THYROXINE CPT-4: 50812 06/19/2018 ASSAY THYROID STIM H ORMONE CPT-4: 08424 06/19/2018 COMPREHEN METABOLIC PANEL CPT-4: 61184 06/19/2018 COMPLETE CBC W/AUTO DIFF WBC CPT-4: 81772 06/19/2018 LIPID PANEL CPT-4: 30970 06/19/2018 ASSAY OF PSA TOTAL CPT- 4: 11607 06/19/2018 VITAMIN D TOTAL (25 HYDROXY) CPT-4: 53850 06/19/2018 VITAMIN B-12 CPT-4: 11611 06/19/2018 DEXAMETHASONE SODIUM PHOS CPT-4: J1100 08/31/2017 TRIAMCINOLONE ACET I [place] NOS CPT-4: J3301 08/31/2017 DRAIN/INJECT JOINT/B URSA CPT-4: 09942 08/31/2017 ROUTINE VENIPUNCTURE CPT-4: 37191 08/01/2017 COMPREHEN METABOLIC PANEL CPT-4: 60419 08/01/2017 LIPID PANEL CPT-4: 36904 08/01/2017 DRAIN/INJECT JOINT/B URSA CPT-4: 37079 09/12/2016 TRIAMCINOLONE ACET I [place] NOS CPT-4: J3301 09/12/2016 DEXAMETHASONE SODIUM PHOS CPT-4: J1100 09/12/2016 ROUTINE VENIPUNCTURE CPT-4: 40540 09/09/2016 ASSAY OF FREE THYROXINE CPT-4: 14307 09/09/2016 ASSAY THYROID STIM H ORMONE CPT-4: 22168 09/09/2016 COMPREHEN METABOLIC PANEL CPT-4: 43653 09/09/2016 COMPLETE CBC W/AUTO DIFF WBC CPT-4: 99042 09/09/2016 LIPID PANEL CPT-4: 18805 09/09/2016 SPECIAL REPORTS OR F ORMS CPT-4: 14535 08/05/2016 ROUTINE VENIPUNCTURE CPT-4: 05770 09/15/2015 COMPREHEN METABOLIC PANEL CPT-4: 57982 09/15/2015 LIPID PANEL CPT-4: 57705 09/15/2015 PRESCRIP TRANSMIT A ERX SY CPT-4: G8553 08/31/2015 ROUTINE VENIPUNCTURE CPT-4: 69882 04/14/2015 COMPREHEN METABOLIC PANEL CPT-4: 09395 04/14/2015 LIPID PANEL CPT-4: 94392 04/14/2015 ROUTINE VENIPUNCTURE CPT-4: 52748 11/10/2014 ASSAY OF FREE THYROXINE CPT-4: 45711 11/10/2014 ASSAY THYROID STIM H ORMONE CPT-4: 39026 11/10/2014 COMPREHEN METABOLIC PANEL CPT-4: 15859 11/10/2014 COMPLETE CBC W/AUTO DIFF WBC CPT-4: 40396 11/10/2014 LIPID PANEL CPT-4: 03156 11/10/2014 ASSAY OF PSA TOTAL CPT- 4: 78374 11/10/2014 ROUTINE VENIPUNCTURE CPT-4: 36523 04/29/2014 COMPREHEN METABOLIC PANEL CPT-4: 96705 04/29/2014 LIPID PANEL CPT-4: 19845 04/29/2014 ROUTINE VENIPUNCTURE CPT-4: 29322 12/18/2013 ASSAY OF FREE THYROXINE CPT-4: 44877 12/18/2013 ASSAY THYROID STIM H ORMONE CPT-4: 23867 12/18/2013 COMPREHEN METABOLIC PANEL CPT-4: 09529 12/18/2013 COMPLETE CBC W/AUTO DIFF WBC CPT-4: 71821 12/18/2013 LIPID PANEL CPT-4: 40552 12/18/2013 ASSAY OF PSA TOTAL CPT- 4: 13223 12/18/2013 ROUTINE VENIPUNCTURE CPT-4: 36381 07/17/2012 COMPREHEN METABOLIC PANEL CPT-4: 24343 07/17/2012 LIPID PANEL CPT-4: 47133 07/17/2012 ROUTINE VENIPUNCTURE CPT-4: 45841 03/20/2012 COMPLETE CBC W/AUTO DIFF WBC CPT-4: 40085 03/20/2012 RBC SED RATE AUTOMATED CPT-4: 30237 03/20/2012 C-REACTIVE PROTEIN CPT- 4: 65235 03/20/2012 COMPREHEN METABOLIC PANEL CPT-4: 35832 03/20/2012 LIPID PANEL CPT-4: 71850 03/20/2012 PROTHROMBIN TIME CPT-4: 95695 03/20/2012 Vital Signs Date Vital 03/27/2019 Blood Pressure 1: 124/80 Code: 8480-6 Heart Rate 1: 72 bpm Respiratory Rate: 20 bpm SpO2: 95% Temperature: 36.8 (C ) / 98.2 (F) Weight: 233 lbs 12/25/2018 Blood Pressure 1: 122/70 Code: 8480-6 Heart Rate 1: 68 bpm Respiratory Rate: 20 bpm SpO2: 95% Temperature: 37.0 (C ) / 98.6 (F) Weight: 235 lbs 08/22/2018 Blood Pressure 1: 132/86 Code: 8480-6 Heart Rate 1: 68 bpm Respiratory Rate: 20 bpm SpO2: 93% Temperature: 36.7 (C ) / 98.1 (F) 06/19/2018 Blood Pressure 1: 126/82 Code: 8480-6 BMI: 31.2 Code: 73953-2 Heart Rate 1: 84 bpm Height: 6'2" Respiratory Rate: 20 bpm SpO2: 94% Temperature: 37.0 (C ) / 98.6 (F) Weight: 243 lbs 03/02/2018 Blood Pressure 1: 122/80 Code: 8480-6 BMI: 30.8 Code: 81172-5 Heart Rate 1: 74 bpm Height: 6'2" Respiratory Rate: 20 bpm SpO2: 95% Temperature: 37.1 (C ) / 98.8 (F) Weight: 240 lbs 08/31/2017 Blood Pressure 1: 136/90 Code: 8480-6 Heart Rate 1: 76 bpm Respiratory Rate: 20 bpm Temperature: 36.7 (C) / 98.0 (F) Weight: 247 lbs 07/18/2017 Blood Pressure 1: 12678 Code: 8480-6 BMI: 31.3 Code: 67139-7 Heart Rate 1: 72 bpm Height: 6'2" Respiratory Rate: 20 bpm SpO2: 94% Temperature: 37.0 (C ) / 98.6 (F) Weight: 244 lbs 04/24/2017 Blood Pressure 1: 152/92 Code: 8480-6 BMI: 31.1 Code: 28948-2 Heart Rate 1: 74 bpm Height: 6'2" Respiratory Rate: 18 bpm SpO2: 98% Temperature: 35.9 (C ) / 96.6 (F) Weight: 242 lbs 01/04/2017 Blood Pressure 1: 12270 Code: 8480-6 BMI: 30.4 Code: 90835-3 Heart Rate 1: 88 bpm Height: 6'2" Respiratory Rate: 20 bpm SpO2: 96% Temperature: 36.6 (C ) / 97.8 (F) Weight: 237 lbs 09/12/2016 Blood Pressure 1: 136/78 Code: 8480-6 Heart Rate 1: 82 bpm Respiratory Rate: 22 bpm SpO2: 94% Temperature: 36.4 (C ) / 97.6 (F) Weight: 234 lbs 09/07/2016 Blood Pressure 1: 122/70 Code: 8480-6 BMI: 30.0 Code: 22115-3 Heart Rate 1: 88 bpm Height: 6'2" Respiratory Rate: 20 bpm SpO2: 94% Temperature: 36.6 (C ) / 97.9 (F) Weight: 234 lbs 08/31/2015 Blood Pressure 1: 142/94 Code: 8480-6 BMI: 28.9 Code: 11301-0 Heart Rate 1: 92 bpm Height: 6'2" Respiratory Rate: 20 bpm Temperature: 36.9 (C ) / 98.5 (F) Weight: 225 lbs 04/14/2015 Blood Pressure 1: 126/80 Code: 8480-6 BMI: 28.0 Code: 15878-8 Heart Rate 1: 76 bpm Height: 6'2" Respiratory Rate: 20 bpm Temperature: 36.6 (C ) / 97.8 (F) Weight: 218 lbs 10/07/2014 Blood Pressure 1: 128/76 Code: 8480-6 BMI: 28.6 Code: 53787-7 Heart Rate 1: 84 bpm Height: 6'2" Respiratory Rate: 22 bpm Temperature: 36.6 (C ) / 97.9 (F) Weight: 223 lbs 05/01/2014 Blood Pressure 1: 126/68 Code: 8480-6 BMI: 28.2 Code: 71095-6 Heart Rate 1: 84 bpm Height: 6'2" Respiratory Rate: 20 bpm Temperature: 36.8 (C ) / 98.3 (F) Weight: 220 lbs 12/17/2013 Blood Pressure 1: 136/82 Code: 8480-6 BMI: 29.6 Code: 31754-1 Heart Rate 1: 76 bpm Height: 6'1" Respiratory Rate: 20 bpm Temperature: 36.8 (C ) / 98.2 (F) Weight: 224 lbs 12/11/2012 Blood Pressure 1: 122/86 Code: 8480-6 BMI: 30.5 Code: 73093-6 Heart Rate 1: 76 bpm Height: 6'1" Respiratory Rate: 20 bpm SpO2: 93% Temperature: 36.8 (C ) / 98.2 (F) Weight: 231 lbs 12/04/2012 Blood Pressure 1: 124/86 Code: 8480-6 BMI: 30.5 Code: 24837-0 Heart Rate 1: 68 bpm Height: 6'1" Respiratory Rate: 20 bpm SpO2: 95% Temperature: 36.6 (C ) / 97.8 (F) Weight: 231 lbs 08/14/2012 Blood Pressure 1: 126/70 Code: 8480-6 BMI: 29.4 Code: 40301-0 Heart Rate 1: 80 bpm Height: 6'1" Respiratory Rate: 20 bpm Temperature: 36.8 (C ) / 98.3 (F) Weight: 223 lbs 07/17/2012 Blood Pressure 1: 124/82 Code: 8480-6 BMI: 29.7 Code: 44657-5 Heart Rate 1: 80 bpm Height: 6'1" Respiratory Rate: 20 bpm Temperature: 36.8 (C ) / 98.2 (F) Weight: 225 lbs 03/20/2012 Blood Pressure 1: 124/78 Code: 8480-6 BMI: 29.3 Code: 28241-3 Heart Rate 1: 72 bpm Height: 6'1" Respiratory Rate: 20 bpm Temperature: 36.6 (C ) / 97.8 (F) Weight: 222 lbs 12/08/2011 Blood Pressure 1: 112/64 Code: 8480-6 BMI: 28.2 Code: 84691-4 Heart Rate 1: 78 bpm Height: 6'1" Temperature: 36.3 (C ) / 97.4 (F) Weight: 214 lbs 08/11/2011 Blood Pressure 1: 128/70 Code: 8480-6 BMI: 27.6 Code: 50131-7 Heart Rate 1: 76 bpm Height: 6'1" Respiratory Rate: 20 bpm Temperature: 36.9 (C ) / 98.4 (F) Weight: 209 lbs 05/26/2010 Blood Pressure 1: 116/78 Code: 8480-6 Heart Rate 1: 80 bpm Temperature: 36.7 (C) / 98.0 (F) Weight: 224 lbs Functional Status No Functional Status data History of Present Illness Symptom Name Status Resu lt Effective Date Notes Location diffusely 03/27/2019 None Quality chronic 03/27/2019 None Quality discomfort 03/27/2019 None Quality stable 03/27/2019 Monitoring Quality stable 03/27/2019 None Location diffusely 12/25/2018 None Quality chronic 12/25/2018 None Quality stable 12/25/2018 Monitoring for hydrocodone Quality improving 12/25/2018 since stents Quality improving 12/25/2018 since stents Location on the right 08/22/2018 None Quality chronic 08/22/2018 None Quality constant. 08/22/2018 Patient had last steroid injection done 08/31/17 pain, generalized Location diffusely 06/19/2018 None pain, generalized Quality chronic 06/19/2018 Medication monitoring for hydrocodone shoulder pain Location o n the right shoulder 06/19/2018 None shoulder pain Quality me chanical--popping 06/19/2018 None shoulder pain Onset and Resolution ongoing 06/19/2018 None shoulder pain Onset of Symptom 3-4 months ago 06/19/2018 None fatigue Quality worsening 06/19/2018 None back pain Location lumba r-sacral spine 03/02/2018 None back pain Location Cervi pat spine 03/02/2018 None back pain Quality discom fort 03/02/2018 None back pain Quality chroni c. 03/02/2018 Medication monitoring for hydrocodone wrist pain Location on t he right 08/31/2017 None wrist pain Quality chron ic 08/31/2017 None wrist pain Quality const ant 08/31/2017 None wrist pain Quality worse kaz. 08/31/2017 Patient requesting steroi d shot fatigue Quality chronic 08/31/2017 None fatigue Quality worsenin g. 08/31/2017 Discuss checking testoste ivette level back pain Quality chronic 07/18/2017 Medication monitoring for hydrocodone back pain Location diffu sely 07/18/2017 None back pain Location Cervi pat spine 07/18/2017 ongoing--does not think P T helped at all back pain Location lumba r-sacral spine 04/24/2017 None back pain Location Cervi pat spine 04/24/2017 None back pain Quality acute 04/24/2017 None back pain Quality aching 04/24/2017 None back pain Quality throbb ing 04/24/2017 None back pain Quality worsen ing 04/24/2017 None neck pain Location diffu sely 04/24/2017 None neck pain Quality acute 04/24/2017 None neck pain Quality aching 04/24/2017 None neck pain Quality throbb ing 04/24/2017 None neck pain Onset and Resolution ongoing 04/24/2017 None neck pain Onset of Symptom during adulthood 04/24/2017 None back pain Location diffu sely 01/04/2017 None back pain Quality chroni c. 01/04/2017 Medication monitoring for hydrocodone back pain Location thora cic spine 01/04/2017 None back pain Location lumba r spine 01/04/2017 None neck pain Location on th e left 01/04/2017 None wrist pain Location on t he right 09/12/2016 None wrist pain Quality sharp pain 09/12/2016 None wrist pain Onset and Resolution ongoing 09/12/2016 None back pain Location diffu sely 09/07/2016 None back pain Quality chroni c. 09/07/2016 Patient stable on hydroco done well man exam (40-65 years) Lifestyle no history of physical abuse 09/07/2016 None well man exam (40-65 years) Lifestyle no history of sexual abuse 09/07/2016 None well man exam (40-65 years) Lifestyle no history of verbal abuse 09/07/2016 None well man exam (40-65 years) Lifestyle regular seatbelt use 09/07/2016 None well man exam (40-65 years) Lifestyle family supportive of relationship 09/07/2016 None well man exam (40-65 years) Lifestyle satisfactory work experience 09/07/2016 None well man exam (40-65 years) Lifestyle normal sleep patterns 09/07/2016 None well man exam (40-65 years) Lifestyle normal amount of stress 09/07/2016 None well man exam (40-65 years) Lifestyle satisfactory marriage/partner relationship 09/07/2016 None well man exam (40-65 years) Sexual Activit y is monogamous 09/07/2016 None well man exam (40-65 years) Sexual Activit y is sexually active 09/07/2016 None back pain Onset and Resolution ongoing 09/07/2016 None back pain Location thora cic spine 09/07/2016 None well man exam (40-65 years) Nutritio n and Exercise overweight 09/07/2016 No ne well man exam (40-65 years) Nutritio n and Exercise minimal exercise 09/07/2016 due to pain well man exam (40-65 years) Cardiova scular Risk Factors lifestyle 09/07/2016 Non e well man exam (40-65 years) Health Guidanc e HIV precautions 09/07/2016 None well man exam (40-65 years) Health Guidanc e STD precautions 09/07/2016 None well man exam (40-65 years) Health Guidanc e regular exercise 09/07/2016 None well man exam (40-65 years) Health Guidanc e safety belt use 09/07/2016 None well man exam (40-65 years) Health Guidanc e tobacco, drugs and alcohol avoidance 09/07/2016 None well man exam (40-65 years) Health Guidanc e helmet use 09/07/2016 None well man exam (40-65 years) Health Guidanc e hearing loss prevention 09/07/2016 None well man exam (40-65 years) Health Guidanc e limiting UV/sun exposure 09/07/2016 None well man exam (40-65 years) Health Guidanc e suicide prevention 09/07/2016 None well man exam (40-65 years) Health Guidanc e depression symptoms 09/07/2016 None well man exam (40-65 years) Health Guidanc e colonoscopy/sigmoidoscopy 09/07/2016 had 3 years ago well man exam (40-65 years) Health Guidanc e cholesterol level and lipid panel 09/07/2016 None well man exam (40-65 years) Sexual Activit y complains of sexual dysfunction 09/07/2016 problems reaching climax and having ejaculaiton back pain Quality chronic 08/31/2015 None back pain Location lumba r spine 08/31/2015 None leg pain/sciatica Location right paralumbar 08/31/2015 None leg pain/sciatica Quality sharp pain 08/31/2015 None leg pain/sciatica Onset and Resolution ongoing. 08/31/2015 Has been seeing chiropractor leg pain/sciatica Quality worsening 08/31/2015 None leg pain/sciatica Onset of Symptom 1 months ago 08/31/2015 None fever Quality intermitte nt 08/31/2015 None fever Temperature 100 de grees 08/31/2015 None cough Quality productive 08/31/2015 None cough Quality chronic 08/31/2015 None cough Location in the taz ng 08/31/2015 None back pain Onset and Resolution ongoing 08/31/2015 None cough Onset and Resolution ongoing 08/31/2015 None cough Onset of Symptom _ weeks ago 08/31/2015 None hyperlipidemia Quality c hronic 04/14/2015 Stopped lipitor about 1 w salamatof ago and is going try OTC krill oil back pain Quality chronic 04/14/2015 Pain medication evaluation back pain Location diffu sely 04/14/2015 None back pain Onset and Resolution ongoing 04/14/2015 None back pain Quality consta nt 04/14/2015 None back pain Location lumba r-sacral spine 10/07/2014 None back pain Quality sharp 10/07/2014 None back pain Onset and Resolution ongoing 10/07/2014 None wrist pain Location on t he right 10/07/2014 None wrist pain Quality sharp pain 10/07/2014 None wrist pain Onset and Resolution ongoing 10/07/2014 None knee pain Location on th e left 10/07/2014 None knee pain Location on th e right 10/07/2014 None knee pain Quality tender ness 10/07/2014 None knee pain Quality throbb ing 10/07/2014 None knee pain Onset and Resolution ongoing 10/07/2014 None joint complaint Location diffusely 05/01/2014 None joint complaint Location on the left knee 05/01/2014 None joint complaint Onset and Resolution ongoing 05/01/2014 None joint complaint Location in the right wrist 05/01/2014 None joint complaint Quality chronic 05/01/2014 None joint complaint Quality constant 05/01/2014 None hyperlipidemia Onset and Resolution ongoing 05/01/2014 None knee pain Location on th e left 12/17/2013 None wrist pain Location on t he right 12/17/2013 None back pain Quality chronic 12/17/2013 None knee pain Quality chronic 12/17/2013 None knee pain Quality interm ittent 12/17/2013 from scar tissus wrist pain Quality chron ic 12/17/2013 None wrist pain Quality const ant 12/17/2013 None wrist pain Quality worse kaz 12/17/2013 was told is bone on bone fatigue Quality chronic 12/11/2012 None fatigue Quality constant 12/11/2012 None fatigue Onset and Resolution ongoing 12/11/2012 None cough Location in the taz ng 12/11/2012 None cough Onset and Resolution ongoing 12/11/2012 None dyspnea Onset and Resolution ongoing 12/11/2012 None chest congestion Quality acute 12/04/2012 None chest congestion Quality worsening 12/04/2012 None wheezing Location diffus josh 12/04/2012 None wheezing Onset and Resolution ongoing 12/04/2012 None wheezing Quality worseni ng 12/04/2012 None chest congestion Onset and Resolution ongoing 12/04/2012 None skin lesion Location to left index finger 08/14/2012 None skin lesion Onset and Resolution ongoing 08/14/2012 None cough Onset and Resolution sudden in onset last night 08/14/2012 None cigarette smoking Onset and Resolution ongoing 08/14/2012 Wellbutrin helping cough Location in the taz ng 08/14/2012 None cough Quality improving 08/14/2012 today hyperlipidemia Quality s table 08/14/2012 None hyperlipidemia Onset and Resolution ongoing 08/14/2012 None skin lesion Location on the left middle finger 07/17/2012 None cigarette smoking Quality chronic 07/17/2012 None cigarette smoking Onset and Resolution ongoing 07/17/2012 None knee pain Location on th e left 03/20/2012 S/P TKR, had MRSA after s urgery--needs labs done hyperlipidemia Quality c hronic 03/20/2012 None hyperlipidemia Onset and Resolution ongoing 03/20/2012 been off meds since first of year venous thrombosis Quality improving 03/20/2012 had superficial clot in r ight arm in November and been on coumadin since--swelling and pain are gone back pain Location lumba r-sacral spine 12/08/2011 None back pain Quality acute 12/08/2011 was hit by 80-100lb door when at [place] getting US done venous thrombosis Quality acute 12/08/2011 Superficial clot to right upper arm found 2 days ago with US--had PICC line taken out of that arm on November 09--did 6wks of abx due to Staph infection in left knee after surgery knee pain Location on th e left 08/11/2011 going to have total knee replacement on August 29 hyperlipidemia Onset and Resolution ongoing 08/11/2011 on trilipix and simvastat in--last lab at least 6mos ago knee pain Quality consta nt 08/11/2011 uses hydrocodone prn back pain Location thora cic spine 08/11/2011 None weight loss Quality cafeteria or lunchroom [place] 08/11/2011 lost 35lbs over past year back pain Location diffu sely 05/26/2010 None knee pain Quality chronic 05/26/2010 were on hydrocodone and just started oxy contin but thinks hydrocodone worked better hyperlipidemia Quality s table 05/26/2010 None Advance Directives No Advance Directive data Encounters Encounter Performer Loca tion Codes Date ([id number]) OFFICE/OUTPA TIENT VISIT EST Diagnosis: 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] Diagnosis: Bilateral primary osteoarthritis of knee[ICD10: M17.0] Diagnosis: Nicotine dependence, unspecified, uncomplicated[ICD10: F17.200] Diagnosis: Mixed hyperlipidemia[ICD10: E78.2] Martita YOUNG DO [facility] CPT-4: 89244 03/27/2019 ([id number]) OFFICE/OUTPA TIENT VISIT EST Diagnosis: Mixed hyperlipidemia[ICD10: E78.2] Diagnosis: 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] Diagnosis: Other intervertebral disc degeneration, 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] Martita SIMONS [facility] CPT-4: 28095 12/25/2018 ([id number]) OFFICE/OUTPA TIENT VISIT EST Diagnosis: Mixed hyperlipidemia[ICD10: E78.2] Diagnosis: Other fatigue[ICD10: R53.83] Diagnosis: Encounter for screening for malignant neoplasm of prostate[ICD10: Z12.5] Diagnosis: Primary osteoarthritis, 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] Diagnosis: Pain in thoracic spine[ICD10: M54.6] Martita YOUNG [facility] CPT-4: 59992 06/19/2018 ([id number]) OFFICE/OUTPA TIENT VISIT EST Diagnosis: Encounter for therapeutic drug level monitoring[ICD10: Z51.81] Diagnosis: Pain in 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: M25.531] Diagnosis: Pain in right knee[ICD10: M25.561] Diagnosis: Pain in left knee[ICD10: M25.562] Marian CUENCA [facility] CPT-4: 47741 03/02/2018 ([id number]) OFFICE/OUTPA TIENT VISIT EST Diagnosis: Mixed hyperlipidemia[ICD10: E78.2] Martita YOUNG [facility] CPT-4: 62247 08/01/2017 ([id number]) OFFICE/OUTPA TIENT VISIT EST Diagnosis: Other spondylosis with radiculopathy, cervical region[ICD10: M47.22] Diagnosis: Pain in 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: M25.531] Diagnosis: Mixed hyperlipidemia[ICD10: E78.2] Diagnosis: 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] Martita SIMONS [facility] CPT-4: 98435 07/18/2017 ([id number]) OFFICE/OUTPA TIENT VISIT EST Diagnosis: Other intervertebral disc degeneration, 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] Diagnosis: Cervicalgia[ICD10: M54.2] Martita SIMONS DO [facility] CPT-4: 13697 04/24/2017 ([id number]) OFFICE/OUTPA TIENT VISIT EST Diagnosis: Cervicalgia[ICD10: M54.2] Diagnosis: Other intervertebral disc degeneration, 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] Diagnosis: Mixed hyperlipidemia[ICD10: E78.2] Martita YOUNG [facility] CPT-4: 07035 01/04/2017 ([id number]) OFFICE/OUTPA TIENT VISIT EST Diagnosis: Mixed hyperlipidemia[ICD10: E78.2] Diagnosis: Encounter for general adult medical examination with abnormal findings[ICD10: Z00.01] Martita SIMONS DO [facility] CPT-4: 20273 09/09/2016 ([id number]) PREV VISIT E ST AGE 40-64 Diagnosis: Mixed hyperlipidemia[ICD10: E78.2] Diagnosis: Nicotine dependence, unspecified, uncomplicated[ICD10: F17.200] Diagnosis: Chronic obstructive pulmonary disease with acute lower respiratory infection[ICD10: J44.0] Diagnosis: Bilateral primary osteoarthritis of knee[ICD10: M17.0] Diagnosis: Pain in thoracic spine[ICD10: M54.6] Diagnosis: Pain in 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: M25.531] Diagnosis: Encounter for general adult medical examination with abnormal findings[ICD10: Z00.01] Martita SIMONS DO [facility] CPT-4: 01456 09/07/2016 ([id number]) OFFICE/OUTPA TIENT VISIT EST Diagnosis: Mixed hyperlipidemia[ICD10: E78.2] Martita YOUNG [facility] CPT-4: 00929 09/15/2015 ([id number]) OFFICE/OUTPA TIENT VISIT EST Diagnosis: Acute bronchitis, unspecified[ICD10: J20.9] Diagnosis: Chronic obstructive pulmonary disease with acute lower respiratory infection[ICD10: J44.0] Diagnosis: Lumbago with sciatica, right side[ICD10: M54.41] Martita AGUIRRE NDER [facility] CPT-4: 01927 08/31/2015 ([id number]) OFFICE/OUTPA TIENT VISIT EST Diagnosis: HYPERLIPIDEMIA NEC/NOS[ICD9: 272.4] Diagnosis: TOBACCO USE DISORDER[ICD9: 305.1] Diagnosis: Osteoarthritis, knee[ICD9: 715.96] Diagnosis: Chronic back pain[ICD9: 724.5] Martita SIMONS DO [facility] CPT-4: 99797 04/14/2015 ([id number]) OFFICE/OUTPA TIENT VISIT EST Diagnosis: HYPERLIPIDEMIA NEC/NOS[ICD9: 272.4] Diagnosis: COPD[ICD9: 496] Diagnosis: ROUTINE MEDICAL EXAM[ICD9: V70.0] Martita TIJERINAR [facility] CPT-4: 28365 11/10/2014 ([id number]) OFFICE/OUTPA TIENT VISIT EST Diagnosis: Wrist pain[ICD9: 719.43] Diagnosis: Knee osteoarthritis[ICD9: 715.96] Diagnosis: Chronic back pain[ICD9: 724.5] Martita SIMONS DO [facility] CPT-4: 41379 10/07/2014 ([id number]) OFFICE/OUTPA TIENT VISIT EST Diagnosis: HYPERLIPIDEMIA NEC/NOS[ICD9: 272.4] Diagnosis: Chronic back pain[ICD9: 724.5] Diagnosis: OSTEOARTH NOS-L/LEG[ICD9: 715.96] Marttia AGUIRRE NDER DO [facility] CPT-4: 01175 05/01/2014 ([id number]) OFFICE/OUTPA TIENT VISIT EST Diagnosis: HYPERLIPIDEMIA NEC/NOS[ICD9: 272.4] Martita AGUIRRE NDER DO [facility] CPT-4: 76384 04/29/2014 ([id number]) OFFICE/OUTPA TIENT VISIT EST Diagnosis: ROUTINE MEDICAL EXAM[ICD9: V70.0] Diagnosis: HYPERLIPIDEMIA NEC/NOS[ICD9: 272.4] Martita AGUIRRE NDER [employer] [facility] CPT-4: 67249 12/18/2013 OFFICE/OUTPATIENT SIT EST Diagnosis: HYPERLIPIDEMIA NEC/NOS[ICD9: 272.4] Diagnosis: COPD[ICD9: 496] Diagnosis: Knee pain[ICD9: 719.46] Diagnosis: Wrist pain[ICD9: 719.43] Martita SIMONS [facility] CPT-4: 46469 12/17/2013 OFFICE/OUTPATIENT SIT EST Diagnosis: COPD W/ ACUTE EXACERB[ICD9: 491.21] Diagnosis: COUGH[ICD9: 786.2] Martita SIMONS [facility] CPT-4: 49847 12/11/2012 ([id number]) OFFICE/OUTPA TIENT VISIT EST Diagnosis: BRONCHITIS, ACUTE[ICD9: 466.0] Diagnosis: COPD exacerbation[ICD9: 491.21] Martita SIMONS [facility] CPT-4: 55441 12/04/2012 ([id number]) OFFICE/OUTPA TIENT VISIT EST Diagnosis: DERMATITIS NOS[ICD9: 692.9] Diagnosis: TOBACCO USE DISORDER[ICD9: 305.1] Martita YOUNG [employer] [facility] CPT-4: 82839 08/14/2012 ([id number]) OFFICE/OUTPA TIENT VISIT EST Diagnosis: TOBACCO USE DISORDER[ICD9: 305.1] Diagnosis: PAIN, LOWER BACK[ICD9: 724.2] Diagnosis: PAIN IN THORACIC SPINE[ICD9: 724.1] Diagnosis: DERMATITIS NOS[ICD9: 692.9] Diagnosis: HYPERLIPIDEMIA NEC/NOS[ICD9: 272.4] Martita YOUNG [employer] [facility] CPT-4: 62499 07/17/2012 ([id number]) OFFICE/OUTPA TIENT VISIT EST Diagnosis: HYPERLIPIDEMIA NEC/NOS[ICD9: 272.4] Diagnosis: OSTEOARTH NOS-L/LEG[ICD9: 715.96] Diagnosis: JOINT PAIN-L/LEG[ICD9: 719.46] Diagnosis: AC EMBL SUPRFCL UP EXT[ICD9: 453.81] Martita YOUNG [employer] [facility] CPT-4: 22613 03/20/2012 ([id number]) OFFICE/OUTPA TIENT VISIT EST Diagnosis: PAIN, LOWER BACK[ICD9: 724.2] Diagnosis: Superficial venous thrombosis of arm[ICD9: 453.81] Diagnosis: Trigger finger, left[ICD9: 727.03] Martitamichael AGUIRRE NDER [facility] [facility] CPT-4: 81087 12/08/2011 OFFICE/OUTPATIENT SIT EST Diagnosis: Knee pain[ICD9: 719.46] Diagnosis: Knee osteoarthritis[ICD9: 715.96] Diagnosis: Thoracic back pain[ICD9: 724.1] Diagnosis: HYPERLIPIDEMIA NEC/NOS[ICD9: 272.4] Martita AGUIRRE NDER [facility] CPT-4: 93107 08/11/2011 ([id number]) OFFICE/OUTPA TIENT VISIT, NEW Martita AGUIRRE NDER [facility] CPT-4: 96873 05/26/2010 Plan of Care Planned Activity Notes C odes Status Date Visit Diagnosis Plan: 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 Discussion: Discussed cardiac rehab vs pulmonary rehab Follow Up: 3 months ICD-9 : 414.00 ICD-10 : I25.10 03/27/2019 Visit Diagnosis Plan: Nicotine dependenc e, unspecified, uncomplicated Discussion: Smoking cessation ICD-9 : 305.1 ICD-10 : F17.200 03/27/2019 Visit Diagnosis Plan: Mixed hyperlipidemia Discussion: Had lab done in December with Cardiology ICD-9 : 272.4 ICD-10 : E78.2 03/27/2019 Visit Diagnosis Plan: Other intervertebr al disc degeneration, lumbar region Discussion: Stable on hydrocodone UDS do ne Follow Up: 3 months ICD-9 : 722.52 ICD-10 : M51.36 12/25/2018 Visit Diagnosis Plan: 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 [facility] 12/25/2018 Appointment: Martita Simonstel: [address] [place], [place] [id number] OFFICE SURGERY 08/22/2018 Visit Diagnosis Plan: Pain in thoracic spine Discussion: Towel and band stretches Topical biofreeze See chiropractor ICD-9 : 724.1 ICD-10 : M54.6 06/19/2018 Visit Diagnosis Plan: Primary osteoarthritis, right wr ist Discussion: Stable ICD-9 : 715.93 ICD-10 : M19.031 06/19/2018 Visit Diagnosis Plan: Mixed hyperlipidemia Discussion: Check CMP, lipids Follow Up: 3 months ICD-9 : 272.4 ICD-10 : E78.2 06/19/2018 Visit Diagnosis Plan: Other fatigue Discussion: Check CBC, TSH, Free T4 ICD-9 : 780.79 ICD-10 : R53.83 06/19/2018 Appointment: Martita Simons WPtel: [address] [place], [place] [phone] [place] MEDICATION REVIEW 06/19/2018 Appointment: Martita Simons WPtel: [address] [place], [place] [phone] [place] CANCELED 06/05/2018 Appointment: Martita Simons WPtel: [address] [place], [place] [phone] [place] CANCELED 05/08/2018 Visit Diagnosis Plan: Pain in left knee Discussion: see other plan ICD-9 : 719.46 ICD-10 : M25.562 03/02/2018 Visit Diagnosis Plan: Encounter for ther apeutic drug level monitoring Discussion: up to date on ethos drug scr een. ICD-9 : V58.83 ICD-10 : Z51.81 03/02/2018 Visit Diagnosis Plan: Pain in right wrist Discussion: stable with current medications. follow up in 4 months or sooner if anything changes. continue with voltaren gel as needed as well. ICD-9 : 719.43 ICD-10 : M25.531 03/02/2018 Visit Diagnosis Plan: Pain in right knee Discussion: see other plan ICD-9 : 719.46 ICD-10 : M25.561 03/02/2018 Appointment: [facility] [address] [facility] MEDICATION REVIEW 03/02/2018 Patient Education: Patient Medication Summary Completed 03/02/2018 Appointment: Martita Simons WPtel: [address] [place], [place] [phone] UA 02/01/2018 Patient Education: Patient Medication Summary Completed 02/01/2018 Visit Diagnosis Plan: Other synovitis an d tenosynovitis, right hand Discussion: Right wrist cleansed with al cohol and betadine and injected laterally with 1cc 1% lidocaine with 20mg kenalog and 2mg dexamethasone, tolerated well with no complications, neosporin and bandage applied ICD-9 : 727.05 ICD-10 : M65.841 08/31/2017 Appointment: Martita Simons WPtel: [address] [place] [address] ACUTE ILLNESS 08/31/2017 Patient Education: Patient Medication Summary Completed 08/31/2017 Appointment: Martita Simons WPtel: [address] [place], [place] [phone] 08/01/2017 Patient Education: Patient Medication Summary Completed 08/01/2017 Visit Diagnosis Plan: Mixed hyperlipidemia Discussion: Check CMP, Lipids but needs to be fasting ICD-9 : 272.4 ICD-10 : E78.2 07/18/2017 Visit Diagnosis Plan: Pain in right wrist Discussion: Discussed repat injection--patient inquired ICD-9 : 719.43 ICD-10 : M25.531 07/18/2017 Visit Diagnosis Plan: Other spondylosis with radiculopathy, cervical region Discussion: If worsens then next step wo uld be seeing surgeon and possible epidural Follow Up: 3 months ICD-9 : 721.0 ICD-10 : M47.22 07/18/2017 Visit Diagnosis Plan: 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 [place] MEDICATION REVIEW 07/18/2017 Patient Education: Patient Medication Summary Completed 07/18/2017 Visit Diagnosis Plan: Other intervertebr al disc degeneration, lumbar region Discussion: Add PT For lumbar spine ICD-9 : 722.52 ICD-10 : M51.36 04/24/2017 Visit Diagnosis Plan: Cervicalgia Di scussion: Continue PT then fwup after done with PT ICD-9 : 723.1 ICD-10 : M54.2 04/24/2017 Appointment: Martita Simons WPtel: [phone] [facility] [place] MEDICATION REVIEW 04/24/2017 Patient Education: Patient Medication Summary Completed 04/24/2017 Patient Education: Patient Medication Summary Completed 03/22/2017 Care Plan: MRI NECK SPINE W/O DYE LOINC : 57662-3 Pending 03/22/2017 Visit Diagnosis Plan: Other intervertebr al disc degeneration, lumbar region Discussion: Continue hydrocodone at curr ent dose UDS monitoring Lock up pain meds Follow Up: 3 months ICD-9 : 722.52 ICD-10 : M51.36 01/04/2017 Visit Diagnosis Plan: Cervicalgia Di scussion: Daily stretches/Traction ICD-9 : 723.1 ICD-10 : M54.2 01/04/2017 Visit Diagnosis Plan: Mixed hyperlipidemia Discussion: Patient has stopped smoking Will continue with lifestyle change and check lipids with fwup in 3mos ICD-9 : 272.4 ICD-10 : E78.2 01/04/2017 Appointment: Martita Simons WPtel: [facility] [facility] /6 lm` /-Confirmed MEDICATI ON REVIEW 01/04/2017 Patient Education: Patient Medication Summary Completed 01/04/2017 Visit Diagnosis Plan: Mixed hyperlipidemia Discussion: Lab discussed Restart lipitor/lifestyle change ICD-9 : 272.4 ICD-10 : E78.2 09/12/2016 Visit Diagnosis Plan: Other enthesopathi es, not elsewhere classified Discussion: Right wrist injection as abo ve ICD-9 : 727.05 ICD-10 : M77.8 09/12/2016 Appointment: Martita Simons WPtel: [address] [place] [id number] 09/12 confirmed `sl INJECTION 09/12/2016 Patient Education: Patient Medication Summary Completed 09/12/2016 Appointment: Martita Simons WPtel: [address] [place] [id number] [place] LAB 09/09/2016 Patient Education: Patient Medication Summary Completed 09/09/2016 Visit Diagnosis Plan: Nicotine dependenc e, unspecified, uncomplicated Discussion: Tobacco Abuse ICD-9 : 305.1 ICD-10 : F17.200 09/07/2016 Visit Diagnosis Plan: Chronic obstructiv e pulmonary disease with acute lower respiratory infection Discussion: Smoking Cessation Symbicort Check CXR ICD-9 : 496 ICD-10 : J44.0 09/07/2016 Visit Diagnosis Plan: Encounter for gene [facility] adult medical examination with abnormal findings Discussion: Update fasting lab Follow Up: 4 months ICD-9 : V70.0 ICD-10 : Z00.01 09/07/2016 Visit Diagnosis Plan: Pain in right wrist Discussion: Will return for wrist injection ICD-9 : 719.43 ICD-10 : M25.531 09/07/2016 Visit Diagnosis Plan: Mixed hyperlipidemia Discussion: Check CMP, Lipids ICD-9 : 272.4 ICD-10 : E78.2 09/07/2016 Appointment: Martita Simons WPtel: [address] [place] [id number] 09/06 confirmed~sl Annual Well Visit 09/07/2016 Patient Education: Patient Medication Summary Completed 09/07/2016 Care Plan: CHEST X-RAY 2VW FRONTAL&LATL LOINC : 04994-6 Pending 09/07/2016 Visit Plan: Filled out [employer] Insurance Paperwork 08/05/2016 Patient Education: Patient Medication Summary Completed 08/05/2016 Appointment: Martita Simons WPtel: [facility] [place] UA 04/25/2016 Patient Education: Patient Medication Summary Completed 04/25/2016 Appointment: Martita Simonstel: [address] [place] [id number] [place] LAB 09/15/2015 Patient Education: Patient Medication Summary Completed 09/15/2015 Visit Plan: SVN with Albuterol 0.08 3% Q4hrs and Q2hrs prn. Supportive care. Rest, Fluids, Tylenol/Motrin prn fever or bodyaches. Notify if worsening symptoms. Daily back stretches, moist heat, Biofreeze prn Flexeri l/Prednisone Notify if low back pain persists--will need x-rays Patient seeing Chiropracter 08/31/2015 Visit Plan: SVN with Albuterol 0.08 3% Q4hrs and Q2hrs prn. Supportive care. Rest, Fluids, Tylenol/Motrin prn fever or bodyaches. Notify if worsening symptoms. Daily back stretches, moist heat, Biofreeze prn Flexeri l/Prednisone Notify if low back pain persists--will need x-rays Patient seeing Chiropracter [employer] 08/31/2015 Appointment: Martita Simons WPtel: [address] [place], [place] [phone] 08/28/15 [facility] 08/28/15 appt confirmed c n FOLLOW UP 08/31/2015 Patient Education: Patient Medication Summary Completed 08/31/2015 Appointment: Martita Simons WPtel: [address] [place] [id number] UA 07/29/2015 Visit Plan: CMP, Lipids today Patie nt stopped chol meds 1week ago Continue hydrocodone 04/14/2015 Visit Plan: CMP, Lipids today Patie nt stopped chol meds 1week ago Continue hydrocodone 04/14/2015 Appointment: Martita Simons WPtel: [address] [place], [place] [phone] [place] FOLLOW UP 04/14/2015 Patient Education: Patient Medication Summary Completed 04/14/2015 Appointment: Martita Simons WPtel: [address] [place], [place] [phone] [place] LAB 11/10/2014 Patient Education: Patient Medication Summary Completed 11/10/2014 Visit Plan: Fasting lab at end of M arch for Lipids/LFTs Continue hydrocodone at current dose Needs to be on low dose asprin 81mg daily With upcoming trip need to stop every 2hours and get out and stretch 10/07/2014 Appointment: Martita Simons WPtel: [address] [place], [place] [phone] FOLLOW UP 10/07/2014 Patient Education: Patient Medication Summary Completed 10/07/2014 Visit Plan: Lab discussed Will keep meds the same Keep hydrocodone at current dose--discussed schedule change on May 05 05/01/2014 Appointment: Martita Simonstel: [address] [place], [place] [phone] 04/29 confirmed when in for labs; asked if he still wanted a reminder call on Monday and he said no he would be here. FOLLOW UP 05/01/2014 Patient Education: Patient Medication Summary Completed 05/01/2014 Appointment: Martita Simons WPtel: [address] [place], [place] [phone] LAB 04/29/2014 Patient Education: Patient Medication Summary Completed 04/29/2014 Appointment: Martita Simonstel: [address] [place] [phone] LAB 12/18/2013 Patient Education: Patient Medication Summary Completed 12/18/2013 Visit Plan: Check fasting lab in AM --CMP, Lipids, CBC, TSH, Free T4, PSA Pt has stopped smoking since July See hand specialist about wrist 12/17/2013 Appointment: Martita Simonstel: [address] [place], [place] [phone] 12/16 FOLLOW UP 12/17/2013 Patient Education: Patient Medication Summary Completed 12/17/2013 Visit Plan: Check CXR Start SVNs wi th albuterol 0.083% QID 12/11/2012 Appointment: Martita Simons WPtel: [address] [place], [place] [id number] FOLLOW UP 12/11/2012 Patient Education: Patient Medication Summary Completed 12/11/2012 Visit Plan: Zithromax for 1wk Predn isone for 1wk Symbicort 160/4.5 2p BID 12/04/2012 Appointment: Martita Simons WPtel: [address] [place], [place] [phone] ACUTE ILLNESS 12/04/2012 Patient Education: Patient Medication Summary Completed 12/04/2012 Visit Plan: Continue nystatin/TAC c ream and add Lamisil for next month No lipitor for next month If rash persists then will need biopsy Trial of chantix--warned of suicidal ideation/depression Call in 1mo on finger lesion and chantix 08/14/2012 Appointment: Martita Simons WPtel: [address] [place], [place] [phone] 08/13 no answer...08/13 pt called back a nd confirmed OFFICE SURGERY 013 Patient Education: Patient Medication Summary Completed 08/14/2012 Visit Plan: Smoking cessation Trial of Wellbutrin Nystatin TAC to finger lesion for 2-4 wks Check CMP, Lipids 07/17/2012 Appointment: Martita Simons WPtel: [address] [place], [place] [phone] FOLLOW UP 07/17/2012 Patient Education: Patient Medication Summary Completed 07/17/2012 Appointment: Martita Simons WPtel: [address] [place], [place] [phone] Appointment was confirmed by CN on 06/29 12/ pt called, in family, was in [place] just got back 07/03 - [facility] ACUTE ILLNESS 07/02/20 12 Visit Plan: Obtain US results of RU E DC coumadin as has been 3mos and start Aspirin 325mg daily Check CMP, Lipids, CBC, ESR, CRP today 03/20/2012 Appointment: Martita Simons WPtel: [address] [place] [address] FOLLOW UP 03/20/2012 Patient Education: Patient Medication Summary Completed 03/20/2012 Appointment: Martita Simons WPtel: [address] [place] [address] Patient called 2 hours past appt. Said saw a specialist today and specialist is not concerned about blod clot so doesnt want to reschedule-CN FOLLOW UP 12/14/2011 Appointment: Martita Simons WPtel: [address] [place] [address] FOLLOW UP 12/13/2011 Visit Plan: Continue coumadin--IM i s following level--discussed will likely need 6-12wks Observe contusion to right lower back Fwup with ortho as scheduled 12/08/2011 Appointment: Martita Simons WPtel: [address] [place] [address] ACUTE ILLNESS 12/08/2011 Patient Education: Patient Medication Summary Completed 12/08/2011 Visit Plan: Check fasting lab when goes for pre-op lab including CMP, CBC, Lipids, TSH, Free T4, PSA, uric acid Needs colonoscopy Hydrocodone refilled #80 to [facility] 08/11/2011 Appointment: Martita Simons WPtel: [address] [place] [address] ESTABLISHED PATIENT 08/11/2011 Patient Education: Patient Medication Summary Completed 08/11/2011 Visit Plan: Obtain most recent lab results Cont current meds Explained that cannot refill pain meds without current rx Discussed Synvisc injections and see ortho as oxycontin for knee arthritis is strong pain med 05/26/2010 Appointment: Martita Simons WPtel: [address] [place] [address] NEW PATIENT 05/26/2010 Patient Education: Patient Medication Summary Completed 05/26/2010 Instructions Comment . Check fasting lab when goes for pre-op lab including CMP, CBC, Lipids, TSH, Free T4, PSA, uric acid Needs colonoscopy Hydrocodone refilled #80 to [facility] . Fasting lab at end of September for Lipids/LFTs Continue hydrocodone at current dose Needs to be on low dose asprin 81mg daily With upcoming trip need to stop every 2hours and get out and stretch . Obtain most recent lab results Cont current meds Explained that cannot refill pain meds without current rx Discussed Synvisc injections and see ortho as oxycontin for knee arthritis is strong pain med . Filled out [employer] Paperwork . Continue coumadin- -IM is following level--discussed will likely need 6-12wks Observe contusion to right lower back Fwup with ortho as scheduled . Lab discussed Will keep meds the same Keep hydrocodone at current dose--discussed schedule change on May 05 . Continue nystatin/ TAC cream and add Lamisil for next month No lipitor for next month If rash persists then will need biopsy Trial of chantix--warned of suicidal ideation/depression Call in 1mo on finger lesion and chantix . Obtain US results of KELVIN PINEDA coumadin as has been 3mos and start Aspirin 325mg daily Check CMP, Lipids, CBC, ESR, CRP today . CMP, Lipids today Patient stopped chol meds 1week ago Continue hydrocodone . CMP, Lipids today Patient stopped chol meds 1week ago Continue hydrocodone . SVN with Albuterol 0.083% Q4hrs and Q2hrs prn. Supportive care. Rest, Fluids, Tylenol/Motrin prn fever or bodyaches. Notify if worsening symptoms. Daily back stretches, moist heat, Biofreeze prn Flexeril/Prednisone Notify if low back pain persists--will need x-rays Patient seeing Chiropracter . SVN with Albuterol 0.083% Q4hrs and Q2hrs prn. Supportive care. Rest, Fluids, Tylenol/Motrin prn fever or bodyaches. Notify if worsening symptoms. Daily back stretches, moist heat, Biofreeze prn Flexeril/Prednisone Notify if low back pain persists--will need x-rays Patient seeing Chiropracter [employer] . Zithromax for 1wk Prednisone for 1wk Symbicort 160/4.5 2p BID . Smoking cessation Trial of Wellbutrin Nystatin TAC to finger lesion for 2-4 wks Check CMP, Lipids SVN given in office with albuterol--better aeration after treatment. Check CXR Start SVNs with albuterol 0.083% QID . Check fasting lab in AM--CMP, Lipids, CBC, TSH, Free T4, PSA Pt has stopped smoking since July See hand specialist about wrist
[2020-01-12 17:48] LABS: BASOPHILS % (AUTO) 0 % (0-10); EOSINOPHILS # (AUTO) 0.3 10^3/uL (0.0-0.3); EOSINOPHILS % (AUTO) 2 % (0-10); HEMATOCRIT 50 % (40-54); HEMOGLOBIN 16.6 G/DL (13.3-17.7); LYMPHOCYTES % (AUTO) 32 % (12-44); MEAN CORPUSCULAR HEMOGLOBIN 33 PG (25-34); MEAN CORPUSCULAR HGB CONC 33 G/DL (32-36); MEAN CORPUSCULAR VOLUME 100 FL (80-99); MONOCYTES # (AUTO) 0.9 X 10^3 (0.0-1.0); MONOCYTES % (AUTO) 7 % (0-12); NEUTROPHILS # (AUTO) 7.4 X 10^3 (1.8-7.8); NEUTROPHILS % (AUTO) 59 % (42-75); PLATELET COUNT 240 10^3/uL (130-400); RED CELL DISTRIBUTION WIDTH 14.2 % (10.0-14.5); WHITE BLOOD COUNT 12.6 10^3/uL (4.3-11.0)
--- OUTSIDE RECORDS SUMMARY | 2020-01-12 17:48 | XMS REPORT | CCD ---
Author Author Syd Simons D.O. Organization [facility] Address [address] [place] [address] Phone Care Team Providers Care Corporate Staff Accountant Name Role Phone Martita Simons D.O., PP Unavailable CCM Unavailable Summary Purpose Interface Exchange Insurance Providers Payer name Policy type / Coverage type Covered libertarian ID Effective Begin Date Effective End Date [facility] [employer] Insurance [id number] Unknown Family history Brother Diagnosis Age At Onset No Family Disease Entered N/A Father Diagnosis Age At Onset No Family Disease Entered N/A Mother Diagnosis Age At Onset No Family Disease Entered N/A Social History Social History Element Codes Description Effective Dates Tobacco history SNOMED CT: 18611051 Current every day smoker 08/11/2011 Number of [...] Resolved Date 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-9: 414.00 [...] Condition Status 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-9: 414.00 [...] 10 mg-ac etaminophen 325 mg tablet RxNorm: 726336 1 Tablet(s) PO Q6H as needed for pain 02/25/2019 No Stop Date Active (Response to an electronic c ontrolled substance refill request - RxReferenceNumber: [id number]|1|0|1) hydrocodone 10 mg-ac etaminophen 325 mg tablet RxNorm: 507010 1 Tablet(s) PO Q6H as needed for pain 11/26/2018 02/24/2019 Inactive (Response to an electronic controlled substance refill request - RxReferenceNumber: [id number]|1|0|1) hydrocodone 10 mg-ac etaminophen 325 mg tablet RxNorm: 939860 1 Tablet(s) PO Q6H as needed for pain 10/30/2018 11/25/2018 Inactive (Response to an electronic controlled substance refill request - RxReferenceNumber: [id number]|1|0|1) hydrocodone 10 mg-ac etaminophen 325 mg tablet RxNorm: 488080 1 Tablet(s) PO Q6H as needed for pain 09/26/2018 10/29/2018 Inactive (Response to an electronic controlled substance refill request - RxReferenceNumber: [id number]|1|0|1) hydrocodone 10 mg-ac etaminophen 325 mg tablet RxNorm: 748564 1 Tablet(s) PO Q6H as needed for pain 08/30/2018 09/25/2018 Inactive (Response to an electronic controlled substance refill request - RxReferenceNumber: [id number]|1|0|1) hydrocodone 10 mg-ac etaminophen 325 mg tablet RxNorm: 145471 1 Tablet(s) PO Q6H as needed for pain 08/01/2018 08/29/2018 Inactive (Response to an electronic controlled substance refill request - RxReferenceNumber: [id number]|1|0|1) hydrocodone 10 mg-ac etaminophen 325 mg tablet RxNorm: 604366 1 Tablet(s) PO Q6H as needed for pain 07/04/2018 07/31/2018 Inactive (Response to an electronic controlled substance refill request - RxReferenceNumber: [id number]|1|0|1) hydrocodone 10 mg-ac etaminophen 325 mg tablet RxNorm: 804321 1 Tablet(s) PO Q6H as needed for pain 05/31/2018 07/03/2018 Inactive (Response to an electronic controlled substance refill request - RxReferenceNumber: [id number]|1|0|1) hydrocodone 10 mg-ac etaminophen 325 mg tablet RxNorm: 081732 1 Tablet(s) PO Q6H as needed for pain 05/01/2018 05/30/2018 Inactive (Response to an electronic controlled substance refill request - RxReferenceNumber: [id number]|1|0|1) hydrocodone 10 mg-ac etaminophen 325 mg tablet RxNorm: 580744 1 Tablet(s) PO Q6H as needed for pain 04/03/2018 04/30/2018 Inactive (Response to an electronic controlled substance refill request - RxReferenceNumber: [id number]|1|0|1) hydrocodone 10 mg-ac etaminophen 325 mg tablet RxNorm: 360288 1 Tablet(s) PO Q6H as needed for pain 02/26/2018 04/02/2018 Inactive (Response to an electronic controlled substance refill request - RxReferenceNumber: [id number]|1|0|1) clotrimazole-betamet hasone 1 %-0.05 % topical cream RxNorm: 133157 TOP As Directed CALL IF NO IMPROVEMENT IN 2 WEEKS 01/30/2018 01/29/2018 Inactive [SAVINGS FOR UNINSURED PATIENTS -- BIN:[id number], PCN: [id number], Group: [id number], ID# [id number], Process claim through [employer], for questions: . THIS IS NOT INSURANCE.] hydrocodone 10 mg-ac etaminophen 325 mg tablet RxNorm: 723413 1 Tablet(s) PO Q6H as needed for pain 01/29/2018 02/25/2018 Inactive (Response to an electronic controlled substance refill request - RxReferenceNumber: [id number]|1|0|1) hydrocodone 10 mg-ac etaminophen 325 mg tablet RxNorm: 184802 1 Tablet(s) PO Q6H as needed for pain 12/28/2017 01/28/2018 Inactive (Response to an electronic controlled substance refill request - RxReferenceNumber: [id number]|1|0|1) hydrocodone 10 mg-ac etaminophen 325 mg tablet RxNorm: 356998 1 Tablet(s) PO Q6H as needed for pain 11/29/2017 12/27/2017 Inactive (Response to an electronic controlled substance refill request - RxReferenceNumber: [id number]|1|0|1) hydrocodone 10 mg-ac etaminophen 325 mg tablet RxNorm: 303676 1 Tablet(s) PO Q6H as needed for pain 11/02/2017 11/28/2017 Inactive (Response to an electronic controlled substance refill request - RxReferenceNumber: [id number]|1|0|1) hydrocodone 10 mg-ac etaminophen 325 mg tablet RxNorm: 110437 1 Tablet(s) PO Q6H as needed for pain 10/02/2017 11/01/2017 Inactive (Response to an electronic controlled substance refill request - RxReferenceNumber: [id number]|1|0|1) hydrocodone 10 mg-ac etaminophen 325 mg tablet RxNorm: 176653 1 Tablet(s) PO Q6H as needed for pain 08/30/2017 10/01/2017 Inactive (Response to an electronic controlled substance refill request - RxReferenceNumber: [id number]|1|0|1) hydrocodone 10 mg-ac etaminophen 325 mg tablet RxNorm: 853139 1 Tablet(s) PO Q6H as needed for pain 08/01/2017 08/29/2017 Inactive (Response to an electronic controlled substance refill request - RxReferenceNumber: [id number]|1|0|1) hydrocodone 10 mg-ac etaminophen 325 mg tablet RxNorm: 083733 1 Tablet(s) PO Q6H as needed for pain 06/26/2017 No Stop Date Active (Response to an electronic c ontrolled substance refill request - RxReferenceNumber: [id number]|1|0|1) hydrocodone 10 mg-ac etaminophen 325 mg tablet RxNorm: 120905 1 Tablet(s) PO Q6H as needed for pain 06/26/2017 07/31/2017 Inactive (Response to an electronic controlled substance refill request - RxReferenceNumber: [id number]|1|0|1) hydrocodone 10 mg-ac etaminophen 325 mg tablet RxNorm: 382241 1 Tablet(s) PO Q6H as needed for pain 03/27/2017 06/25/2017 Inactive (Response to an electronic controlled substance refill request - RxReferenceNumber: [id number]|1|0|1) hydrocodone 10 mg-ac etaminophen 325 mg tablet RxNorm: 064599 1 Tablet(s) PO Q6H as needed for pain 02/23/2017 03/26/2017 Inactive (Response to an electronic controlled substance refill request - RxReferenceNumber: [id number]|1|0|1) hydrocodone 10 mg-ac etaminophen 325 mg tablet RxNorm: 020829 1 Tablet(s) PO Q6H as needed for pain 01/24/2017 02/22/2017 Inactive (Response to an electronic controlled substance refill request - RxReferenceNumber: [id number]|1|0|1) hydrocodone 10 mg-ac etaminophen 325 mg tablet RxNorm: 629352 1 Tablet(s) PO Q6H as needed for pain 12/27/2016 No Stop Date Active (Response to an electronic c ontrolled substance refill request - RxReferenceNumber: [id number]|1|0|1) hydrocodone 10 mg-ac etaminophen 325 mg tablet RxNorm: 004573 1 Tablet(s) PO Q6H as needed for pain 12/27/2016 01/23/2017 Inactive (Response to an electronic controlled substance refill request - RxReferenceNumber: [id number]|1|0|1) hydrocodone 10 mg-ac etaminophen 325 mg tablet RxNorm: 324165 1 Tablet(s) PO Q6H as needed for pain 11/23/2016 12/26/2016 Inactive (Response to an electronic controlled substance refill request - RxReferenceNumber: [id number]|1|0|1) hydrocodone 10 mg-ac etaminophen 325 mg tablet RxNorm: 791940 1 Tablet(s) PO Q6H as needed for pain 10/20/2016 11/22/2016 Inactive (Response to an electronic controlled substance refill request - RxReferenceNumber: [id number]|1|0|1) hydrocodone 10 mg-ac etaminophen 325 mg tablet RxNorm: 893448 1 Tablet(s) PO Q6H as needed for pain 09/26/2016 10/19/2016 Inactive (Response to an electronic controlled substance refill request - RxReferenceNumber: [id number]|1|0|1) hydrocodone 10 mg-ac etaminophen 325 mg tablet RxNorm: 763841 1 Tablet(s) PO Q6H as needed for pain 07/27/2016 09/25/2016 Inactive (Response to an electronic controlled substance refill request - RxReferenceNumber: [id number]|1|0|1) hydrocodone 10 mg-ac etaminophen 325 mg tablet RxNorm: 612088 1 Tablet(s) PO Q6H as needed for pain 05/04/2016 07/26/2016 Inactive (Response to an electronic controlled substance refill request - RxReferenceNumber: [id number]|1|0|1) hydrocodone 10 mg-ac etaminophen 325 mg tablet RxNorm: 758463 1 Tablet(s) PO Q6H as needed for pain 03/31/2016 05/03/2016 Inactive (Response to an electronic controlled substance refill request - RxReferenceNumber: [id number]|1|0|1) citalopram 10 mg tablet RxNorm: 340264 1 Tablet(s) PO QD 09/28/2015 09/27/2015 Inactive citalopram 10 mg tablet RxNorm: 844430 1 Tablet(s) PO QD 09/28/2015 09/06/2016 Inactive Wellbutrin SR 150 mg tablet,sustained-release RxNorm: 094576 1 Tablet(s) PO QAM 09/25/2015 09/06/2016 In active prednisone 20 mg tablet RxNorm: 566494 1 Tablet(s) PO TID for 3 days then 1 po BID for 3 days then one daily for 3 days 08/31/2015 09/06/2016 Inactive cyclobenzaprine 10 m g tablet RxNorm: 156672 1 Tablet(s) PO TID as needed for muscle spasm 08/31/2015 07/17/2017 Inactive hydrocodone 10 mg-ac etaminophen 325 mg tablet RxNorm: 144215 1 Tablet(s) PO Q6H as needed for pain 08/26/2015 03/30/2016 Inactive (Response to an electronic controlled substance refill request - RxReferenceNumber: [id number]|1|0|1) hydrocodone 10 mg-ac etaminophen 325 mg tablet RxNorm: 935312 1 Tablet(s) PO Q6H as needed for pain 07/28/2015 08/25/2015 Inactive (Response to an electronic controlled substance refill request - RxReferenceNumber: [id number]|1|0|1) hydrocodone 10 mg-ac etaminophen 325 mg tablet RxNorm: 993362 1 Tablet(s) PO Q6H as needed for pain 06/23/2015 07/27/2015 Inactive (Response to an electronic controlled substance refill request - RxReferenceNumber: [id number]|1|0|1) hydrocodone 10 mg-ac etaminophen 325 mg tablet RxNorm: 716522 1 Tablet(s) PO Q6H as needed for pain 05/21/2015 06/22/2015 Inactive (Response to an electronic controlled substance refill request - RxReferenceNumber: [id number]|1|0|1) azithromycin 250 mg tablet RxNorm: 751534 2 Tablet(s) PO on day one, then one tablet on days 2 - 5 04/27/2015 08/30/2015 Inactive hydrocodone 10 mg-ac etaminophen 325 mg tablet RxNorm: 032532 1 Tablet(s) PO Q6H as needed for pain 03/25/2015 05/20/2015 Inactive (Response to an electronic controlled substance refill request - RxReferenceNumber: [id number]|1|0|1) hydrocodone 10 mg-ac etaminophen 325 mg tablet RxNorm: 396966 1 Tablet(s) PO Q6H as needed for pain 02/24/2015 03/24/2015 Inactive (Response to an electronic controlled substance refill request - RxReferenceNumber: [id number]|1|0|1) hydrocodone 10 mg-ac etaminophen 325 mg tablet RxNorm: 602305 1 Tablet(s) PO Q6H as needed for pain 01/23/2015 02/23/2015 Inactive (Response to an electronic controlled substance refill request - RxReferenceNumber: [id number]|1|0|1) hydrocodone 10 mg-ac etaminophen 325 mg tablet RxNorm: 359807 1 Tablet(s) PO Q6H as needed for pain 12/23/2014 01/22/2015 Inactive (Response to an electronic controlled substance refill request - RxReferenceNumber: [id number]|1|0|1) hydrocodone 10 mg-ac etaminophen 325 mg tablet RxNorm: 508776 1 Tablet(s) PO Q6H as needed for pain 11/24/2014 12/22/2014 Inactive (Response to an electronic controlled substance refill request - RxReferenceNumber: [id number]|1|0|1) hydrocodone 10 mg-ac etaminophen 325 mg tablet RxNorm: 434089 1 Tablet(s) PO Q6H as needed for pain 10/28/2014 11/23/2014 Inactive (Response to an electronic controlled substance refill request - RxReferenceNumber: [id number]|1|0|1) hydrocodone 10 mg-ac etaminophen 325 mg tablet RxNorm: 541701 1 Tablet(s) PO Q6H as needed for pain 09/25/2014 10/27/2014 Inactive (Response to an electronic controlled substance refill request - RxReferenceNumber: [id number]|1|0|1) Lipitor 80 mg tablet RxNorm: 194660 1 Tablet(s) PO QHS 09/24/2014 04/13/2015 Inactive hydrocodone 10 mg-ac etaminophen 325 mg tablet RxNorm: 206735 1 Tablet(s) PO Q6H as needed for pain 07/30/2014 09/24/2014 Inactive (Response to an electronic controlled substance refill request - RxReferenceNumber: [id number]|1|0|1) hydrocodone 10 mg-ac etaminophen 325 mg tablet RxNorm: 115375 1 Tablet(s) PO Q6H as needed for pain 05/27/2014 07/29/2014 Inactive (Response to an electronic controlled substance refill request - RxReferenceNumber: [id number]|1|0|1) clotrimazole-betamet hasone 1 %-0.05 % topical cream RxNorm: 458518 TOP As Directed 05/01/2014 08/30/2015 In active [SAVINGS FOR UNINSURED PATIENTS -- BIN:0 75846, PCN: [id number], Group: [id number], ID# [id number], Process claim through [employer], for questions: . THIS IS NOT INSURANCE.] Lipitor 80 mg tablet RxNorm: 090165 1 Tablet(s) PO QHS 04/28/2014 07/26/2014 Inactive hydrocodone 10 mg-ac etaminophen 325 mg tablet RxNorm: 987698 1 Tablet(s) PO Q6H as needed for pain 04/28/2014 05/26/2014 Inactive (Response to an electronic controlled substance refill request - RxReferenceNumber: [id number]|1|0|1) hydrocodone 10 mg-ac etaminophen 325 mg tablet RxNorm: 980380 1 Tablet(s) PO Q6H as needed for pain 03/27/2014 04/27/2014 Inactive (Response to an electronic controlled substance refill request - RxReferenceNumber: [id number]|1|0|1) hydrocodone 10 mg-ac etaminophen 325 mg tablet RxNorm: 622531 1 Tablet(s) PO Q6H as needed for pain 12/20/2013 12/20/2013 Inactive (Appended: Controlled subst ance eRx refill - RxReferenceNumber: [id number]|1|0|1) hydrocodone 10 mg-ac etaminophen 325 mg tablet RxNorm: 749936 TAKE 1 TABLET BY MOUT H EVERY 6 HOURS NEEDED FOR PAIN 12/20/2013 01/12/2014 Inactive (Response to an electronic controlled substance refill request - RxReferenceNumber: [id number]|1|0|1) hydrocodone 10 mg-ac etaminophen 325 mg tablet RxNorm: 934082 1 Tablet(s) PO Q6H as needed for pain 09/03/2013 12/19/2013 Inactive (Appended: Controlled subst ance eRx refill - RxReferenceNumber: [id number]|1|0|1) hydrocodone 10 mg-ac etaminophen 325 mg tablet RxNorm: 342261 Tablet(s) PO TAKE 1 T ABLET BY MOUTH EVERY 6 HOURS NEEDED FOR PAIN 08/08/2013 09/03/2013 Inactive (Kavitha ended: Controlled substance eRx refill - RxReferenceNumber: [id number]|1|0|1) hydrocodone 10 mg-ac etaminophen 325 mg tablet RxNorm: 955241 Tablet(s) PO TAKE 1 T ABLET BY MOUTH EVERY 6 HOURS NEEDED FOR PAIN 07/11/2013 08/07/2013 Inactive (Ap pended: Controlled substance eRx refill - RxReferenceNumber: [id number]|1|0|1) hydrocodone 10 mg-ac etaminophen 325 mg tablet RxNorm: 7733836 Tablet(s) PO TAKE 1 TABLET BY MOUTH EVERY 6 HOURS NEEDED FOR PAIN 06/12/2013 07/11/2013 Inactive (Appended: Controlled substance eRx refill - RxReferenceNumber: [id number]|1|0|1) hydrocodone 10 mg-ac etaminophen 325 mg tablet RxNorm: 8799820 1 Tablet(s) PO Q6H A S NEEDED FOR PAIN 05/15/2013 06/12/2013 Inactive (Appended: Controlled subst ance eRx refill - RxReferenceNumber: [id number]|1|0|1) hydrocodone 10 mg-ac etaminophen 325 mg tablet RxNorm: 9782424 Tablet(s) PO TAKE 1 TO 2 TABLETS BY MOUTH EVERY 6 HOURS NEEDED FOR PAIN 04/18/2013 No Stop Date Active (Appended: Controlled substance eRx refill - RxReferenceNumber: [id number]|1|0|1) hydrocodone 10 mg-ac etaminophen 325 mg tablet RxNorm: 2441458 Tablet(s) PO TAKE 1 TO 2 TABLETS BY MOUTH EVERY 6 HOURS NEEDED FOR PAIN 03/19/2013 No Stop Date Active (Appended: Controlled substance eRx refill - RxReferenceNumber: [id number]|1|0|1) hydrocodone 10 mg-ac etaminophen 325 mg tablet RxNorm: 7398794 Tablet(s) PO TAKE 1 TO 2 TABLETS BY MOUTH EVERY 6 HOURS NEEDED FOR PAIN 02/06/2013 03/18/2013 Inactive (Appended: Controlled substance eRx refill - RxReferenceNumber: [id number]|1|0|1) hydrocodone 10 mg-ac etaminophen 325 mg tablet RxNorm: 3573196 Tablet(s) PO TAKE 1 TO 2 TABLETS BY MOUTH EVERY 6 HOURS NEEDED FOR PAIN 01/08/2013 02/06/2013 Inactive (Appended: Controlled substance eRx refill - RxReferenceNumber: [id number]|1|0|1) Zithromax 250 mg tablet RxNorm: 335965 2 Tablet(s) PO QD 12/04/2012 12/10/2012 Inactive prednisone 20 mg tablet RxNorm: 738209 1 Tablet(s) PO BID 12/04/2012 12/10/2012 Inactive atorvastatin 40 mg t ablet RxNorm: 908829 1 Tablet(s) PO QD 11/08/2012 12/17/2013 Inactive hydrocodone 10 mg-ac etaminophen 325 mg tablet RxNorm: 7613532 Tablet(s) PO TAKE 1 TO 2 TABLETS BY MOUTH EVERY 6 HOURS NEEDED FOR PAIN 10/18/2012 01/08/2013 Inactive (Appended: Controlled substance eRx refill - RxReferenceNumber: [id number]|1|0|1) hydrocodone 10 mg-ac etaminophen 325 mg tablet RxNorm: 2470969 1-2 Tablet(s) PO Q6H as needed for pain 09/06/2012 10/18/2012 Inactive Lamisil 250 mg tablet RxNorm: 977550 1 Tablet(s) PO QD 08/14/2012 09/12/2012 Inactive atorvastatin 40 mg t ablet RxNorm: 683457 1 Tablet(s) PO QD 08/08/2012 11/05/2012 Inactive prednisone 20 mg tablet RxNorm: 333459 1 Tablet(s) PO BID 07/17/2012 07/23/2012 Inactive Wellbutrin SR 150 mg tablet,extended release RxNorm: 047393 1 Tablet(s) PO BID 07/17/2012 08/13/2012 In active meloxicam 15 mg tablet RxNorm: 933343 1 Tablet(s) PO QD for pain 06/27/2012 07/16/2012 Inactive atorvastatin 40 mg t ablet RxNorm: 981418 1 Tablet(s) PO QD 06/27/2012 08/07/2012 Inactive hydrocodone-acetamin ophen 10 mg-325 mg tablet RxNorm: 2616092 1-2 Tablet(s) PO Q6H as needed for pain 05/23/2012 No Stop Date Active hydrocodone-acetamin ophen 10 mg-325 mg tablet RxNorm: 4250124 1-2 Tablet(s) PO Q6H as needed for pain 04/24/2012 No Stop Date Active hydrocodone-acetamin ophen 10 mg-325 mg tablet RxNorm: 2230918 1-2 Tablet(s) PO Q6H as needed for pain 02/08/2012 No Stop Date Active hydrocodone-acetamin ophen 10 mg-325 mg Tab RxNorm: 4385765 1-2 Tablet(s) PO Q6H as needed for pain 01/02/2012 No Stop Date Active hydrocodone-acetamin ophen 10 mg-325 mg Tab RxNorm: 9164592 1-2 Tablet(s) PO Q6H as needed for pain 11/29/2011 No Stop Date Active hydrocodone-acetamin ophen 10 mg-325 mg Tab RxNorm: 5766386 1-2 Tablet(s) PO Q6H as needed for pain 10/24/2011 No Stop Date Active hydrocodone-acetamin ophen 10 mg-325 mg Tab RxNorm: 4196130 1-2 Tablet(s) PO Q6H as needed for pain 10/07/2011 No Stop Date Active simvastatin 40 mg Tab RxNorm: 898505 1 Tablet(s) PO QHS 08/11/2011 03/19/2012 Inactive clopidogrel 75 mg ta blet RxNorm: 555711 1 Tablet(s) PO QD No Start Date Active metoprolol succinate ER 25 mg tablet,extended release 24 hr RxNorm: 968600 1 Tablet(s) PO QD No Start Date Active Symbicort 160 mcg-4. 5 mcg/actuation HFA aerosol inhaler RxNorm: 0345112 2 INH QD No Start Date Active atorvastatin 40 mg t ablet RxNorm: 625801 1 Tablet(s) PO QD No Start Date Active aspirin 81 mg tablet RxNorm: 403773 1 Tablet(s) PO QD No Start Date Active Vitamin D3 2,000 uni t tablet RxNorm: 746796 3 Tablet(s) PO No Start Date Active krill oil oral RxNorm: 85581 oral No Start Date Active lisinopril 5 mg tablet RxNorm: 896756 1 Tablet(s) PO QD No Start Date Active hydrocodone-acetamin ophen 10 mg-325 mg Tab RxNorm: 7754421 1-2 Tablet(s) PO Q6H as needed for pain No Start Date 10/06/2011 Inactive Wellbutrin SR 150 mg tablet,sustained-release RxNorm: 118139 1 Tablet(s) PO QAM No Start Date 09/24/2015 Inactive OxyContin 15 mg 12 h r Tab RxNorm: 5298262 1 Tablet(s) PO BID No Start Date 08/10/2011 Inactive warfarin 5 mg Tab RxNorm: 496085 1 Tablet(s) PO QD No Start Date 03/19/2012 Inactive albuterol sulfate 1. 25 mg/3 mL Neb Solution RxNorm: 907025 1 Unit Dose INH prn wheezing, congestion, shortness of breath No Start Date 04/30/2014 Inactive azithromycin 250 mg tablet RxNorm: 906839 2 Tablet(s) PO on day one, then one tablet on days 2 - 5 No Start Date 04/26/2015 Inactive warfarin 10 mg Tab RxNorm: 511905 1 Tablet(s) PO QOD No Start Date 07/16/2012 Inactive Symbicort Inhl RxNorm: Inhalation No Start Date 12/16/2013 Inactive Trilipix 135 mg Cap RxNorm: 584473 1 Capsule(s) PO QD No Start Date 12/07/2011 Inactive Chantix Starting Mon Box 0.5 mg (11)-1 mg (42) tablets in dose pack RxNorm: 160993 Tablet(s) PO as directed No Start Date 12/03/2012 Inactive clotrimazole-betamet hasone 1 %-0.05 % topical cream RxNorm: 423192 TOP As Directed No Start Date 04/30/2014 Inactive nystatin-triamcinolo ne 100,000 unit/g-0.1 % Topical Cream RxNorm: 1029273 Application TOP BID for 2-4weeks No Start Date 12/03/2012 Inactive Lovastatin 20 mg Tab RxNorm: 689790 1 Tablet(s) PO QHS No Start Date 08/10/2011 Inactive warfarin 7.5 mg Tab RxNorm: 030895 1 Tablet(s) PO QOD No Start Date 07/16/2012 Inactive Lipitor 80 mg tablet RxNorm: 509473 1 Tablet(s) PO QHS No Start Date 04/27/2014 Inactive simvastatin 40 mg Tab RxNorm: 127145 1 Tablet(s) PO QHS No Start Date 08/10/2011 Inactive Gemfibrozil 600 mg Tab RxNorm: 864103 1 Tablet(s) PO QHS No Start Date 08/10/2011 Inactive Medication Administered No Medication Administered data Immunizations No Immunization data Assessments Condition Codes Effectiv e Dates Mixed hyperlipidemia ICD-10: E78.2 ICD-9: 272.4 03/27/2019 Bilateral primary osteoarthritis of knee ICD-10: M17.0 ICD-9: 715.96 03/27/2019 Nicotine dependence, unspecified, uncomplicated ICD-10: F17.200 ICD-9: 305.1 03/27/2019 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 [...] Item Code Result Date COMPLETE BLOOD COUNT 8409844 WBC 9.7 10e9/L 06/19/2018 COMPLETE BLOOD COUNT 5306865 RBC 5.35 10e12/L 8 COMPLETE BLOOD COUNT 7471322 HEMOGLOBIN 17.1 g/dL 06/19/2018 COMPLETE BLOOD COUNT 6464333 HEMATOCRIT 52.4 % 06/19/2018 COMPLETE BLOOD COUNT 4546083 MCV 97.9 fL 06/19/2018 COMPLETE BLOOD COUNT 6164909 MCH 32.0 pg 06/19/2018 COMPLETE BLOOD COUNT 3110961 MCHC 32.6 g/dL 06/19/2018 COMPLETE BLOOD COUNT 8563773 PLATELET COUNT 257 10e9/L 06/19/2018 COMPLETE BLOOD COUNT 4849596 Mean Plt Volume 11.2 fL 06/19/2018 COMPLETE BLOOD COUNT 8580149 Neut Auto 54.6 % 06/19/2018 COMPLETE BLOOD COUNT 0684163 Lymph Auto 33.3 % 06/19/2018 COMPLETE BLOOD COUNT 3545763 [place]clennan Auto 9.1 % 06/19/2018 COMPLETE BLOOD COUNT 2711836 RDW 14.4 % 06/19/2018 COMPLETE BLOOD COUNT 5642606 Eos Auto 2.6 % 06/19/2018 COMPLETE BLOOD COUNT 3726164 Baso Auto 0.4 % 06/19/2018 COMPLETE BLOOD COUNT 5842607 Neutrophil Abs 5.30 10e9/L 06/19/2018 COMPLETE BLOOD COUNT 9950665 Lymphocyte Abs 3.23 10e9/L 06/19/2018 COMPLETE BLOOD COUNT 0198479 Monocyte Abs 0.88 10e9/L 06/19/2018 COMPLETE BLOOD COUNT 7456056 Eosinophil Abs 0.25 10e9/L 06/19/2018 COMPLETE BLOOD COUNT 9975239 RDW-SD 51.8 fL 06/19/2018 COMPLETE BLOOD COUNT 4374681 Basophil Abs 0.04 10e9/L 06/19/2018 LIPID GROUP 52138 Choles terol 222 mg/dL 06/19/2018 LIPID GROUP 86264 Trigly ceride 111 mg/dL 06/19/2018 LIPID GROUP 80916 HDL CH OLESTEROL 37 mg/dL 06/19/2018 LIPID GROUP 52050 Chol/H DL Ratio 6.00 ratio 06/19/2018 LIPID GROUP 58277 NON-HD L Chol 185 mg/dL 06/19/2018 LIPID GROUP 84181 LDL Ch olesterol 163 mg/dL 06/19/2018 VITAMIN B 12 64240 VITAM IN B12 532 pg/mL 06/19/2018 THYROID STIMULATING HORMONE 21548 TSH 2.685 uIU/mL 8 COMPREHENSIVE METABOLIC 93196 AST 15 U/L 06/19/2018 COMPREHENSIVE METABOLIC 16246 ALT 21 U/L 06/19/2018 COMPREHENSIVE METABOLIC 99257 BUN 16 mg/dL 06/19/2018 COMPREHENSIVE METABOLIC 54503 ALBUMIN 4.1 g/dL 06/19/2018 COMPREHENSIVE METABOLIC 42483 CHLORIDE 99 mmol/L 06/19/2018 COMPREHENSIVE METABOLIC 17016 Bili Total 0.4 mg/dL 06/19/2018 COMPREHENSIVE METABOLIC 36949 ALK PHOS 43 U/L 06/19/2018 COMPREHENSIVE METABOLIC 13440 SODIUM 136 mmol/L 06/19/2018 COMPREHENSIVE METABOLIC 78255 CREATININE 0.82 mg/dL 06/19/2018 COMPREHENSIVE METABOLIC 76025 CALCIUM 9.5 mg/dL 06/19/2018 COMPREHENSIVE METABOLIC 13039 POTASSIUM 5.2 mmol/L 06/19/2018 COMPREHENSIVE METABOLIC 83640 Total Protein 6.7 g/dL 06/19/2018 COMPREHENSIVE METABOLIC 12463 Glucose 81 mg/dL 06/19/2018 COMPREHENSIVE METABOLIC 49647 Bicarbonate 30 mmol/L 06/19/2018 COMPREHENSIVE METABOLIC 31418 AGAP 7 mmol/L 06/19/2018 FREE T4 63236 T4 Free 0.85 ng/dL 06/19/2018 GFR CALC 5674573 GFR Non Afr Amr >60 mL/min 06/19/2018 GFR CALC 8185830 GFR Afr Amr >60 mL/min 06/19/2018 VITAMIN D TOTAL (25 HYDROXY) 78889 Vitamin D 25 OH 24.1 ng/mL 06/19/2018 PSA EQUIMOLAR TROY 99975 PSA Total 0.88 ng/mL 06/19/2018 GFR CALC 8653320 GFR Non Afr Amr >60 mL/min 09/09/2016 GFR CALC 9289385 GFR Afr Amr >60 mL/min 09/09/2016 COMPLETE BLOOD COUNT 1073008 WBC 11.7 10e9/L 09/09/2016 COMPLETE BLOOD COUNT 5573731 RBC 5.54 10e12/L 7 COMPLETE BLOOD COUNT 5031020 HEMOGLOBIN 17.6 g/dL 09/09/2016 COMPLETE BLOOD COUNT 6871462 HEMATOCRIT 52.3 % 09/09/2016 COMPLETE BLOOD COUNT 3743085 MCV 94.4 fL 09/09/2016 COMPLETE BLOOD COUNT 2287818 MCH 31.8 pg 09/09/2016 COMPLETE BLOOD COUNT 2081472 MCHC 33.7 g/dL 09/09/2016 COMPLETE BLOOD COUNT 2210776 PLATELET COUNT 259 10e9/L 09/09/2016 COMPLETE BLOOD COUNT 1261574 Mean Plt Volume 11.2 fL 09/09/2016 COMPLETE BLOOD COUNT 1195634 Neut Auto 53.6 % 09/09/2016 COMPLETE BLOOD COUNT 0846241 Lymph Auto 36.2 % 09/09/2016 COMPLETE BLOOD COUNT 9955920 Mclennan Auto 7.9 % 09/09/2016 COMPLETE BLOOD COUNT 7168633 RDW 14.2 % 09/09/2016 COMPLETE BLOOD COUNT 5283900 Eos Auto 2.1 % 09/09/2016 COMPLETE BLOOD COUNT 2890714 Baso Auto 0.2 % 09/09/2016 COMPLETE BLOOD COUNT 7431585 Neutrophil Abs 6.27 10e9/L 09/09/2016 COMPLETE BLOOD COUNT 8736760 Lymphocyte Abs 4.24 10e9/L 09/09/2016 COMPLETE BLOOD COUNT 1037327 Monocyte Abs 0.92 10e9/L 09/09/2016 COMPLETE BLOOD COUNT 0335386 Eosinophil Abs 0.25 10e9/L 09/09/2016 COMPLETE BLOOD COUNT 4175871 RDW-SD 48.1 fL 09/09/2016 COMPLETE BLOOD COUNT 4094778 Basophil Abs 0.02 10e9/L 09/09/2016 COMPREHENSIVE METABOLIC 24549 AST 19 U/L 09/09/2016 COMPREHENSIVE METABOLIC 16670 ALT 25 U/L 09/09/2016 COMPREHENSIVE METABOLIC 87188 BUN 16 mg/dL 09/09/2016 COMPREHENSIVE METABOLIC 82151 ALBUMIN 4.8 g/dL 09/09/2016 COMPREHENSIVE METABOLIC 24955 CHLORIDE 100 mmol/L 09/09/2016 COMPREHENSIVE METABOLIC 29786 Bili Total 0.7 mg/dL 09/09/2016 COMPREHENSIVE METABOLIC 10125 ALK PHOS 50 U/L 09/09/2016 COMPREHENSIVE METABOLIC 61412 SODIUM 136 mmol/L 09/09/2016 COMPREHENSIVE METABOLIC 88203 CREATININE 0.98 mg/dL 09/09/2016 COMPREHENSIVE METABOLIC 93233 CALCIUM 9.8 mg/dL 09/09/2016 COMPREHENSIVE METABOLIC 85251 POTASSIUM 4.6 mmol/L 09/09/2016 COMPREHENSIVE METABOLIC 96175 Total Protein 7.5 g/dL 09/09/2016 COMPREHENSIVE METABOLIC 72188 Glucose 104 mg/dL 09/09/2016 COMPREHENSIVE METABOLIC 87136 Bicarbonate 27 mmol/L 09/09/2016 COMPREHENSIVE METABOLIC 97325 AGAP 9 mmol/L 09/09/2016 FREE T4 62276 T4 Free 1.04 ng/dL 09/09/2016 THYROID STIMULATING HORMONE 42216 TSH 1.618 uIU/mL 7 [facility] 58144 Choles terol 251 mg/dL 09/09/2016 LIPID GROUP 55008 Trigly ceride 153 mg/dL 09/09/2016 LIP[facility] GROUP 54050 HDL CH OLESTEROL 33 mg/dL 09/09/2016 LIP[facility] GROUP 06294 Chol/H DL Ratio 7.61 ratio 09/09/2016 LIPID GROUP 62614 NON-HD L Chol 218 mg/dL 09/09/2016 LIP[facility] GROUP 17677 LDL Ch olesterol 187 mg/dL 09/09/2016 L[facility] GROUP [address] 39 MG/DL 09/15/2015 LIP[facility] GROUP 18639 TRIG 106 MG/DL 09/15/2015 LIPID GROUP 46111 TEST L DL 152 MG/DL 09/15/2015 LIPID GROUP 82682 CHOL 212 MG/DL 09/15/2015 LIP[facility] GROUP 30837 RCHOL/ HDL 5.44 RATIO 09/15/2015 LIPID GROUP 68919 NON-HD L CH 173 MG/DL 09/15/2015 GFR CALC 8150225 GFR AA >60 ML/MIN 09/15/2015 GFR CALC 2092481 GFR NON -AA >60 ML/MIN 09/15/2015 COMPREHENSIVE METABOLIC 24503 AST 18 U/L 09/15/2015 COMPREHENSIVE METABOLIC 34698 ALT 28 IU/L 09/15/2015 COMPREHENSIVE METABOLIC 93828 BUN 14 MG/DL 09/15/2015 COMPREHENSIVE METABOLIC 76719 ALBUMIN 4.2 GM/DL 09/15/2015 COMPREHENSIVE METABOLIC 82142 CHLORIDE 101 MMOL/L 09/15/2015 COMPREHENSIVE METABOLIC 46414 BILI TOT 0.6 MG/DL 09/15/2015 COMPREHENSIVE METABOLIC 21336 ALK PHOS 48 U/L 09/15/2015 COMPREHENSIVE METABOLIC 24012 SODIUM 135 MMOL/L 09/15/2015 COMPREHENSIVE METABOLIC 66439 CREATININE 0.91 MG/DL 09/15/2015 COMPREHENSIVE METABOLIC 57484 CALCIUM 9.2 MG/DL 09/15/2015 COMPREHENSIVE METABOLIC 32622 POTASSIUM 4.6 MMOL/L 09/15/2015 COMPREHENSIVE METABOLIC 89787 PROT TOT 6.6 GM/DL 09/15/2015 COMPREHENSIVE METABOLIC 53183 Glucose 97 MG/DL 09/15/2015 COMPREHENSIVE METABOLIC 88839 BICARB 27 MMOL/L 09/15/2015 COMPREHENSIVE METABOLIC 95617 ANION GAP 7 MEQ/L 09/15/2015 [facility]IP[facility] [address] 35 MG/DL 04/14/2015 [facility] GROUP 00048 TRIG 135 MG/DL 04/14/2015 LIP[facility] GROUP 02215 TEST L DL 153 MG/DL 04/14/2015 LIP[facility] GROUP 67703 CHOL 215 MG/DL 04/14/2015 [facility] GROUP 41355 RCHOL/ HDL 6.14 RATIO 04/14/2015 LIP[facility] GROUP 34497 NON-HD L CH 180 MG/DL 04/14/2015 GFR CALC 1576299 GFR AA >60 ML/MIN 04/14/2015 GFR CALC 2626190 GFR NON -AA >60 ML/MIN 04/14/2015 COMPREHENSIVE METABOLIC 00890 AST 23 U/L 04/14/2015 COMPREHENSIVE METABOLIC 55641 ALT 27 IU/L 04/14/2015 COMPREHENSIVE METABOLIC 10250 BUN 15 MG/DL 04/14/2015 COMPREHENSIVE METABOLIC 52545 ALBUMIN 4.2 GM/DL 04/14/2015 COMPREHENSIVE METABOLIC 77685 CHLORIDE 103 MMOL/L 04/14/2015 COMPREHENSIVE METABOLIC 47867 BILI TOT 0.8 MG/DL 04/14/2015 COMPREHENSIVE METABOLIC 82423 ALK PHOS 50 U/L 04/14/2015 COMPREHENSIVE METABOLIC 24191 SODIUM 134 MMOL/L 04/14/2015 COMPREHENSIVE METABOLIC 50945 CREATININE 0.93 MG/DL 04/14/2015 COMPREHENSIVE METABOLIC 37483 CALCIUM 9.4 MG/DL 04/14/2015 COMPREHENSIVE METABOLIC 28428 POTASSIUM 4.4 MMOL/L 04/14/2015 COMPREHENSIVE METABOLIC 95924 PROT TOT 6.8 GM/DL 04/14/2015 COMPREHENSIVE METABOLIC 77249 Glucose 101 MG/DL 04/14/2015 COMPREHENSIVE METABOLIC 96975 BICARB 25 MMOL/L 04/14/2015 COMPREHENSIVE METABOLIC 73952 ANION GAP 6 MEQ/L 04/14/2015 PSA EQUIMOLAR RTOY 69570 PSA EQ 1.04 NG/ML 11/10/2014 GFR CALC 6558021 GFR AA >60 ML/MIN 11/10/2014 GFR CALC 1493830 GFR NON -AA >60 ML/MIN 11/10/2014 LIP[facility] GROUP [address] 31 MG/DL 11/10/2014 LIP[facility] GROUP 43382 TRIG 133 MG/DL 11/10/2014 LIP[facility] GROUP 38993 TEST L DL 74 MG/DL 11/10/2014 LIP[facility] GROUP 50945 CHOL 132 MG/DL 11/10/2014 LIP[facility] GROUP 28960 RCHOL/ HDL 4.26 RATIO 11/10/2014 LIP[facility] GROUP 08244 NON-HD L CH 101 MG/DL 11/10/2014 COMPLETE BLOOD COUNT 9239534 WBC 10.2 10e9/L 11/10/2014 COMPLETE BLOOD COUNT 0860208 RBC 5.01 10e12/L 5 COMPLETE BLOOD COUNT 7180400 HGB 16.1 g/dL 11/10/2014 COMPLETE BLOOD COUNT 9608500 HCT DET 48.1 % 11/10/2014 COMPLETE BLOOD COUNT 5946601 MCV 96.0 fL 11/10/2014 COMPLETE BLOOD COUNT 3408152 MCH 32.1 pg 11/10/2014 COMPLETE BLOOD COUNT 4473774 MCHC 33.5 g/dL 11/10/2014 COMPLETE BLOOD COUNT 5240911 PLT 248 10e9/L 11/10/2014 COMPLETE BLOOD COUNT 2930629 MPV 11.4 fL 11/10/2014 COMPLETE BLOOD COUNT 9286125 GIUSEPPE % 51.2 % 11/10/2014 COMPLETE BLOOD COUNT 5315547 LY % 37.4 % 11/10/2014 COMPLETE BLOOD COUNT 9206301 MON % 9.2 % 11/10/2014 COMPLETE BLOOD COUNT 9841845 EOS % 2.0 % 11/10/2014 COMPLETE BLOOD COUNT 2263276 BASO % 0.2 % 11/10/2014 COMPLETE BLOOD COUNT 7714052 RDW 14.0 % 11/10/2014 COMPLETE BLOOD COUNT 1250599 ABS GIUSEPPE 5.22 10e9/L 11/10/2014 COMPLETE BLOOD COUNT 5553359 ABS LYMPH 3.81 10e9/L 11/10/2014 COMPLETE BLOOD COUNT 2336483 ABS MONO 0.94 10e9/L 11/10/2014 COMPLETE BLOOD COUNT 1320045 ABS EOS 0.20 10e9/L 11/10/2014 COMPLETE BLOOD COUNT 0357109 ABS BASO 0.02 10e9/L 11/10/2014 COMPLETE BLOOD COUNT 5384849 RDW-SD 47.8 fL 11/10/2014 FREE T4 62551 FREE T4 0.92 NG/DL 11/10/2014 COMPREHENSIVE METABOLIC 04852 AST 18 U/L 11/10/2014 COMPREHENSIVE METABOLIC 34870 ALT 25 IU/L 11/10/2014 COMPREHENSIVE METABOLIC 36679 BUN 16 MG/DL 11/10/2014 COMPREHENSIVE METABOLIC 66159 ALBUMIN 4.5 GM/DL 11/10/2014 COMPREHENSIVE METABOLIC 29293 CHLORIDE 103 MMOL/L 11/10/2014 COMPREHENSIVE METABOLIC 49054 BILI TOT 0.4 MG/DL 11/10/2014 COMPREHENSIVE METABOLIC 70646 ALK PHOS 53 U/L 11/10/2014 COMPREHENSIVE METABOLIC 75873 SODIUM 135 MMOL/L 11/10/2014 COMPREHENSIVE METABOLIC 06854 CREATININE 0.97 MG/DL 11/10/2014 COMPREHENSIVE METABOLIC 20711 CALCIUM 9.4 MG/DL 11/10/2014 COMPREHENSIVE METABOLIC 37167 POTASSIUM 4.4 MMOL/L 11/10/2014 COMPREHENSIVE METABOLIC 83937 PROT TOT 6.9 GM/DL 11/10/2014 COMPREHENSIVE METABOLIC 23936 Glucose 91 MG/DL 11/10/2014 COMPREHENSIVE METABOLIC 77184 BICARB 26 MMOL/L 11/10/2014 COMPREHENSIVE METABOLIC 26236 ANION GAP 6 MEQ/L 11/10/2014 THYROID STIMULATING HORMONE 85809 TSH 3.791 uIU/ML 5 [facility] [address] 35 MG/DL 04/29/2014 L[facility] GROUP 77321 TRIG 123 MG/DL 04/29/2014 LIP[facility] GROUP 38371 TEST L DL 117 MG/DL 04/29/2014 LIP[facility] GROUP 30640 CHOL 177 MG/DL 04/29/2014 [facility] GROUP 27214 RCHOL/ HDL 5.06 RATIO 04/29/2014 LIPID GROUP 19077 NON-HD L CH 142 MG/DL 04/29/2014 COMPREHENSIVE METABOLIC 42633 AST 18 U/L 04/29/2014 COMPREHENSIVE METABOLIC 40355 ALT 29 IU/L 04/29/2014 COMPREHENSIVE METABOLIC 33491 BUN 19 MG/DL 04/29/2014 COMPREHENSIVE METABOLIC 48276 ALBUMIN 4.0 GM/DL 04/29/2014 COMPREHENSIVE METABOLIC 61900 CHLORIDE 106 MMOL/L 04/29/2014 COMPREHENSIVE METABOLIC 02184 BILI TOT 0.4 MG/DL 04/29/2014 COMPREHENSIVE METABOLIC 01406 ALK PHOS 51 U/L 04/29/2014 COMPREHENSIVE METABOLIC 27493 SODIUM 138 MMOL/L 04/29/2014 COMPREHENSIVE METABOLIC 55208 CREATININE 0.87 MG/DL 04/29/2014 COMPREHENSIVE METABOLIC 92876 CALCIUM 9.4 MG/DL 04/29/2014 COMPREHENSIVE METABOLIC 17153 POTASSIUM 4.5 MMOL/L 04/29/2014 COMPREHENSIVE METABOLIC 02240 PROT TOT 6.8 GM/DL 04/29/2014 COMPREHENSIVE METABOLIC 01569 Glucose 106 MG/DL 04/29/2014 COMPREHENSIVE METABOLIC 53554 BICARB 24 MMOL/L 04/29/2014 COMPREHENSIVE METABOLIC 46309 ANION GAP 8 MEQ/L 04/29/2014 GFR CALC 5013554 GFR AA >60 ML/MIN 04/29/2014 GFR CALC 8378388 GFR NON -AA >60 ML/MIN 04/29/2014 LIP[facility] GROUP [address] 30 MG/DL 12/18/2013 L[facility] GROUP 40607 TRIG 128 MG/DL 12/18/2013 LIP[facility] GROUP 69639 TEST L DL 166 MG/DL 12/18/2013 [facility] GROUP 36442 CHOL 222 MG/DL 12/18/2013 [facility] 65697 RCHOL/ HDL 7.40 RATIO 12/18/2013 GFR CALC 7569972 GFR AA >60 ML/MIN 12/18/2013 GFR CALC 6373250 GFR NON -AA >60 ML/MIN 12/18/2013 FREE T4 18581 FREE T4 1.07 NG/DL 12/18/2013 COMPLETE BLOOD COUNT 9471448 WBC 7.2 10e9/L 12/18/2013 COMPLETE BLOOD COUNT 2866970 RBC 4.89 10e12/L 4 COMPLETE BLOOD COUNT 5213088 HGB 15.5 g/dL 12/18/2013 COMPLETE BLOOD COUNT 9046057 HCT DET 46.6 % 12/18/2013 COMPLETE BLOOD COUNT 1241675 MCV 95.3 fL 12/18/2013 COMPLETE BLOOD COUNT 8737568 MCH 31.7 pg 12/18/2013 COMPLETE BLOOD COUNT 4169564 MCHC 33.3 g/dL 12/18/2013 COMPLETE BLOOD COUNT 1138291 PLT 246 10e9/L 12/18/2013 COMPLETE BLOOD COUNT 1893571 MPV 11.4 fL 12/18/2013 COMPLETE BLOOD COUNT 8014168 GIUSEPPE % 48.6 % 12/18/2013 COMPLETE BLOOD COUNT 1063005 LY % 37.4 % 12/18/2013 COMPLETE BLOOD COUNT 3007425 MON % 10.5 % 12/18/2013 COMPLETE BLOOD COUNT 8893510 EOS % 3.2 % 12/18/2013 COMPLETE BLOOD COUNT 7738771 BASO % 0.3 % 12/18/2013 COMPLETE BLOOD COUNT 8741646 RDW 13.6 % 12/18/2013 COMPLETE BLOOD COUNT 5682899 ABS GIUSEPPE 3.50 10e9/L 12/18/2013 COMPLETE BLOOD COUNT 7715336 ABS LYMPH 2.69 10e9/L 12/18/2013 COMPLETE BLOOD COUNT 2635257 ABS MONO 0.76 10e9/L 12/18/2013 COMPLETE BLOOD COUNT 4967475 ABS EOS 0.23 10e9/L 12/18/2013 COMPLETE BLOOD COUNT 5042788 ABS BASO 0.02 10e9/L 12/18/2013 COMPLETE BLOOD COUNT 5965700 RDW-SD 46.2 fL 12/18/2013 COMPREHENSIVE METABOLIC 37182 AST 38 U/L 12/18/2013 COMPREHENSIVE METABOLIC 95011 ALT 33 IU/L 12/18/2013 COMPREHENSIVE METABOLIC 98407 BUN 15 MG/DL 12/18/2013 COMPREHENSIVE METABOLIC 88289 ALBUMIN 4.2 GM/DL 12/18/2013 COMPREHENSIVE METABOLIC 44153 CHLORIDE 103 MMOL/L 12/18/2013 COMPREHENSIVE METABOLIC 85629 BILI TOT 0.6 MG/DL 12/18/2013 COMPREHENSIVE METABOLIC 07609 ALK PHOS 45 U/L 12/18/2013 COMPREHENSIVE METABOLIC 85691 SODIUM 136 MMOL/L 12/18/2013 COMPREHENSIVE METABOLIC 40302 CREATININE 0.97 MG/DL 12/18/2013 COMPREHENSIVE METABOLIC 33649 CALCIUM 9.2 MG/DL 12/18/2013 COMPREHENSIVE METABOLIC 72089 POTASSIUM 4.2 MMOL/L 12/18/2013 COMPREHENSIVE METABOLIC 18504 PROT TOT 7.0 GM/DL 12/18/2013 COMPREHENSIVE METABOLIC 14447 Glucose 120 MG/DL 12/18/2013 COMPREHENSIVE METABOLIC 79989 BICARB 24 MMOL/L 12/18/2013 COMPREHENSIVE METABOLIC 16941 ANION GAP 9 MEQ/L 12/18/2013 THYROID STIMULATING HORMONE 19687 TSH 1.305 uIU/ML 4 PSA EQUIMOLAR TROY 02355 PSA EQ 1.71 NG/ML 12/18/2013 LIP[facility] GROUP [address] 29 MG/DL 07/17/2012 L[facility] GROUP 16869 TRIG 155 MG/DL 07/17/2012 LIP[facility] GROUP 38154 TEST L DL 105 MG/DL 07/17/2012 LIP[facility] GROUP 45617 CHOL 165 MG/DL 07/17/2012 L[facility] GROUP 22260 RCHOL/ HDL 5.69 RATIO 07/17/2012 GFR CALC 1833251 GFR AA >60 ML/MIN 07/17/2012 GFR CALC 4079805 GFR NON -AA >60 ML/MIN 07/17/2012 COMPREHENSIVE METABOLIC 39631 AST 19 U/L 07/17/2012 COMPREHENSIVE METABOLIC 44595 ALT 25 IU/L 07/17/2012 COMPREHENSIVE METABOLIC 95282 BUN 14 MG/DL 07/17/2012 COMPREHENSIVE METABOLIC 82089 ALBUMIN 4.4 GM/DL 07/17/2012 COMPREHENSIVE METABOLIC 00520 CHLORIDE 103 MMOL/L 07/17/2012 COMPREHENSIVE METABOLIC 15407 BILI TOT 0.6 MG/DL 07/17/2012 COMPREHENSIVE METABOLIC 87520 ALK PHOS 53 U/L 07/17/2012 COMPREHENSIVE METABOLIC 50293 SODIUM 136 MMOL/L 07/17/2012 COMPREHENSIVE METABOLIC 82519 CREATININE 0.97 MG/DL 07/17/2012 COMPREHENSIVE METABOLIC 64000 CALCIUM 9.4 MG/DL 07/17/2012 COMPREHENSIVE METABOLIC 73888 POTASSIUM 4.3 MMOL/L 07/17/2012 COMPREHENSIVE METABOLIC 68912 PROT TOT 6.9 GM/DL 07/17/2012 COMPREHENSIVE METABOLIC 98852 Glucose 102 MG/DL 07/17/2012 COMPREHENSIVE METABOLIC 55673 BICARB 27 MMOL/L 07/17/2012 COMPREHENSIVE METABOLIC 43365 ANION GAP 6 MEQ/L 07/17/2012 ERYTHROCYTE SEDIMENTATION RATE 98746 ESR 14 MM/HR 03/20/2012 [facility] [address] 31 MG/DL 03/20/2012 L[facility] GROUP 77400 TRIG 210 MG/DL 03/20/2012 LIP[facility] GROUP 34618 TEST L DL 164 MG/DL 03/20/2012 LIP[facility] GROUP 34136 CHOL 237 MG/DL 03/20/2012 LIP[facility] GROUP 25223 RCHOL/ HDL 7.65 RATIO 03/20/2012 GFR CALC 7777599 GFR AA >60 ML/MIN 03/20/2012 GFR CALC 8949667 GFR NON -AA >60 ML/MIN 03/20/2012 C-REACTIVE PROTEIN (CRP) QUANT 07975 CRP 0.9 MG/DL 03/20/2012 COMPLETE BLOOD COUNT 51131 WBC 9.7 10e9/L 03/20/2012 COMPLETE BLOOD COUNT 63223 RBC 5.14 10e12/L 2 COMPLETE BLOOD COUNT 39350 HGB 15.5 g/dL 03/20/2012 COMPLETE BLOOD COUNT 01503 HCT DET 46.9 % 03/20/2012 COMPLETE BLOOD COUNT 01939 MCV 91.2 fL 03/20/2012 COMPLETE BLOOD COUNT 13712 MCH 30.2 pg 03/20/2012 COMPLETE BLOOD COUNT 06109 MCHC 33.0 g/dL 03/20/2012 COMPLETE BLOOD COUNT 18069 PLT 280 10e9/L 03/20/2012 COMPLETE BLOOD COUNT 73385 MPV 10.6 fL 03/20/2012 COMPLETE BLOOD COUNT 68612 GIUSEPPE % 61.5 % 03/20/2012 COMPLETE BLOOD COUNT 59715 LY % 26.5 % 03/20/2012 COMPLETE BLOOD COUNT 27468 MON % 8.8 % 03/20/2012 COMPLETE BLOOD COUNT 88718 EOS % 3.0 % 03/20/2012 COMPLETE BLOOD COUNT 46238 BASO % 0.2 % 03/20/2012 COMPLETE BLOOD COUNT 01508 RDW 15.3 % 03/20/2012 COMPLETE BLOOD COUNT 84894 ABS GIUSEPPE 5.97 10e9/L 03/20/2012 COMPLETE BLOOD COUNT 91231 ABS LYMPH 2.57 10e9/L 03/20/2012 COMPLETE BLOOD COUNT 43224 ABS MONO 0.85 10e9/L 03/20/2012 COMPLETE BLOOD COUNT 67087 ABS EOS 0.29 10e9/L 03/20/2012 COMPLETE BLOOD COUNT 57536 ABS BASO 0.02 10e9/L 03/20/2012 COMPLETE BLOOD COUNT 51596 RDW-SD 50.3 fL 03/20/2012 COMPREHENSIVE METABOLIC 03425 AST 16 U/L 03/20/2012 COMPREHENSIVE METABOLIC 26489 ALT 21 IU/L 03/20/2012 COMPREHENSIVE METABOLIC 19652 BUN 15 MG/DL 03/20/2012 COMPREHENSIVE METABOLIC 79426 ALBUMIN 4.3 GM/DL 03/20/2012 COMPREHENSIVE METABOLIC 54986 CHLORIDE 102 MMOL/L 03/20/2012 COMPREHENSIVE METABOLIC 96029 BILI TOT 0.5 MG/DL 03/20/2012 COMPREHENSIVE METABOLIC 61532 ALK PHOS 60 U/L 03/20/2012 COMPREHENSIVE METABOLIC 81790 SODIUM 135 MMOL/L 03/20/2012 COMPREHENSIVE METABOLIC 11679 CREATININE 0.94 MG/DL 03/20/2012 COMPREHENSIVE METABOLIC 68630 CALCIUM 9.0 MG/DL 03/20/2012 COMPREHENSIVE METABOLIC 56822 POTASSIUM 4.4 MMOL/L 03/20/2012 COMPREHENSIVE METABOLIC 04831 PROT TOT 6.7 GM/DL 03/20/2012 COMPREHENSIVE METABOLIC 55104 Glucose 96 MG/DL 03/20/2012 COMPREHENSIVE METABOLIC 38253 BICARB 25 MMOL/L 03/20/2012 COMPREHENSIVE METABOLIC 93788 ANION GAP 8 MEQ/L 03/20/[place] [address] PRO T HARRY 21.6 SEC 03/20/2012 [place] [address] INR M CMC 1.8 03/20/2012 Review of [...] Procedures Procedure Codes Date ROUTINE VENIPUNCTURE CPT-4: 96284 06/19/2018 ASSAY OF FREE THYROXINE CPT-4: 42774 06/19/2018 ASSAY THYROID STIM H ORMONE CPT-4: 59810 06/19/2018 COMPREHEN METABOLIC PANEL CPT-4: 81957 06/19/2018 COMPLETE CBC W/AUTO DIFF WBC CPT-4: 40106 06/19/2018 LIPID PANEL CPT-4: 39451 06/19/2018 ASSAY OF PSA TOTAL CPT- 4: 22606 06/19/2018 VITAMIN D TOTAL (25 HYDROXY) CPT-4: 70328 06/19/2018 VITAMIN B-12 CPT-4: 48787 06/19/2018 DEXAMETHASONE SODIUM PHOS CPT-4: J1100 08/31/2017 TRIAMCINOLONE ACET I [place] NOS CPT-4: J3301 08/31/2017 DRAIN/INJECT JOINT/B URSA CPT-4: 88669 08/31/2017 ROUTINE VENIPUNCTURE CPT-4: 42987 08/01/2017 COMPREHEN METABOLIC PANEL CPT-4: 50532 08/01/2017 LIPID PANEL CPT-4: 61093 08/01/2017 DRAIN/INJECT JOINT/B URSA CPT-4: 52444 09/12/2016 TRIAMCINOLONE ACET I [place] NOS CPT-4: J3301 09/12/2016 DEXAMETHASONE SODIUM PHOS CPT-4: J1100 09/12/2016 ROUTINE VENIPUNCTURE CPT-4: 75261 09/09/2016 ASSAY OF FREE THYROXINE CPT-4: 16468 09/09/2016 ASSAY THYROID STIM H ORMONE CPT-4: 79828 09/09/2016 COMPREHEN METABOLIC PANEL CPT-4: 86308 09/09/2016 COMPLETE CBC W/AUTO DIFF WBC CPT-4: 34152 09/09/2016 LIPID PANEL CPT-4: 87202 09/09/2016 SPECIAL REPORTS OR F ORMS CPT-4: 41964 08/05/2016 ROUTINE VENIPUNCTURE CPT-4: 58369 09/15/2015 COMPREHEN METABOLIC PANEL CPT-4: 65097 09/15/2015 LIPID PANEL CPT-4: 29780 09/15/2015 PRESCRIP TRANSMIT A ERX SY CPT-4: G8553 08/31/2015 ROUTINE VENIPUNCTURE CPT-4: 79712 04/14/2015 COMPREHEN METABOLIC PANEL CPT-4: 68573 04/14/2015 LIPID PANEL CPT-4: 74504 04/14/2015 ROUTINE VENIPUNCTURE CPT-4: 64790 11/10/2014 ASSAY OF FREE THYROXINE CPT-4: 68524 11/10/2014 ASSAY THYROID STIM H ORMONE CPT-4: 40476 11/10/2014 COMPREHEN METABOLIC PANEL CPT-4: 48850 11/10/2014 COMPLETE CBC W/AUTO DIFF WBC CPT-4: 42754 11/10/2014 LIPID PANEL CPT-4: 21322 11/10/2014 ASSAY OF PSA TOTAL CPT- 4: 08054 11/10/2014 ROUTINE VENIPUNCTURE CPT-4: 27957 04/29/2014 COMPREHEN METABOLIC PANEL CPT-4: 11822 04/29/2014 LIPID PANEL CPT-4: 89658 04/29/2014 ROUTINE VENIPUNCTURE CPT-4: 98016 12/18/2013 ASSAY OF FREE THYROXINE CPT-4: 67212 12/18/2013 ASSAY THYROID STIM H ORMONE CPT-4: 25524 12/18/2013 COMPREHEN METABOLIC PANEL CPT-4: 64868 12/18/2013 COMPLETE CBC W/AUTO DIFF WBC CPT-4: 67738 12/18/2013 LIPID PANEL CPT-4: 03463 12/18/2013 ASSAY OF PSA TOTAL CPT- 4: 47306 12/18/2013 ROUTINE VENIPUNCTURE CPT-4: 25562 07/17/2012 COMPREHEN METABOLIC PANEL CPT-4: 79838 07/17/2012 LIPID PANEL CPT-4: 86089 07/17/2012 ROUTINE VENIPUNCTURE CPT-4: 74053 03/20/2012 COMPLETE CBC W/AUTO DIFF WBC CPT-4: 82473 03/20/2012 RBC SED RATE AUTOMATED CPT-4: 29131 03/20/2012 C-REACTIVE PROTEIN CPT- 4: 00709 03/20/2012 COMPREHEN METABOLIC PANEL CPT-4: 23026 03/20/2012 LIPID PANEL CPT-4: 82906 03/20/2012 PROTHROMBIN TIME CPT-4: 71410 03/20/2012 Vital Signs Date Vital 03/27/2019 Blood [...] 1: 126/82 Code: 8480-6 BMI: 31.2 Code: 69157-8 Heart Rate 1: 84 bpm Height: 6'2" Respiratory Rate: 20 bpm SpO2: 94% Temperature: 37.0 (C ) / 98.6 (F) Weight: 243 lbs 03/02/2018 Blood Pressure 1: 122/80 Code: 8480-6 BMI: 30.8 Code: 04529-9 Heart Rate 1: 74 bpm Height: 6'2" Respiratory Rate: 20 bpm SpO2: 95% Temperature: 37.1 (C ) / 98.8 (F) Weight: 240 lbs 08/31/2017 Blood Pressure 1: 136/90 Code: 8480-6 Heart Rate 1: 76 bpm Respiratory Rate: 20 bpm Temperature: 36.7 (C) / 98.0 (F) Weight: 247 lbs 07/18/2017 Blood Pressure 1: 12678 Code: 8480-6 BMI: 31.3 Code: 78294-8 Heart Rate 1: 72 bpm Height: 6'2" Respiratory Rate: 20 bpm SpO2: 94% Temperature: 37.0 (C ) / 98.6 (F) Weight: 244 lbs 04/24/2017 Blood Pressure 1: 152/92 Code: 8480-6 BMI: 31.1 Code: 78929-5 Heart Rate 1: 74 bpm Height: 6'2" Respiratory Rate: 18 bpm SpO2: 98% Temperature: 35.9 (C ) / 96.6 (F) Weight: 242 lbs 01/04/2017 Blood Pressure 1: 12270 Code: 8480-6 BMI: 30.4 Code: 99130-4 Heart Rate 1: 88 bpm Height: 6'2" Respiratory Rate: 20 bpm SpO2: 96% Temperature: 36.6 (C ) / 97.8 (F) Weight: 237 lbs 09/12/2016 Blood Pressure 1: 136/78 Code: 8480-6 Heart Rate 1: 82 bpm Respiratory Rate: 22 bpm SpO2: 94% Temperature: 36.4 (C ) / 97.6 (F) Weight: 234 lbs 09/07/2016 Blood Pressure 1: 122/70 Code: 8480-6 BMI: 30.0 Code: 11039-5 Heart Rate 1: 88 bpm Height: 6'2" Respiratory Rate: 20 bpm SpO2: 94% Temperature: 36.6 (C ) / 97.9 (F) Weight: 234 lbs 08/31/2015 Blood Pressure 1: 142/94 Code: 8480-6 BMI: 28.9 Code: 78050-1 Heart Rate 1: 92 bpm Height: 6'2" Respiratory Rate: 20 bpm Temperature: 36.9 (C ) / 98.5 (F) Weight: 225 lbs 04/14/2015 Blood Pressure 1: 126/80 Code: 8480-6 BMI: 28.0 Code: 38684-4 Heart Rate 1: 76 bpm Height: 6'2" Respiratory Rate: 20 bpm Temperature: 36.6 (C ) / 97.8 (F) Weight: 218 lbs 10/07/2014 Blood Pressure 1: 128/76 Code: 8480-6 BMI: 28.6 Code: 19585-5 Heart Rate 1: 84 bpm Height: 6'2" Respiratory Rate: 22 bpm Temperature: 36.6 (C ) / 97.9 (F) Weight: 223 lbs 05/01/2014 Blood Pressure 1: 126/68 Code: 8480-6 BMI: 28.2 Code: 52453-1 Heart Rate 1: 84 bpm Height: 6'2" Respiratory Rate: 20 bpm Temperature: 36.8 (C ) / 98.3 (F) Weight: 220 lbs 12/17/2013 Blood Pressure 1: 136/82 Code: 8480-6 BMI: 29.6 Code: 83636-1 Heart Rate 1: 76 bpm Height: 6'1" Respiratory Rate: 20 bpm Temperature: 36.8 (C ) / 98.2 (F) Weight: 224 lbs 12/11/2012 Blood Pressure 1: 122/86 Code: 8480-6 BMI: 30.5 Code: 37520-9 Heart Rate 1: 76 bpm Height: 6'1" Respiratory Rate: 20 bpm SpO2: 93% Temperature: 36.8 (C ) / 98.2 (F) Weight: 231 lbs 12/04/2012 Blood Pressure 1: 124/86 Code: 8480-6 BMI: 30.5 Code: 25620-2 Heart Rate 1: 68 bpm Height: 6'1" Respiratory Rate: 20 bpm SpO2: 95% Temperature: 36.6 (C ) / 97.8 (F) Weight: 231 lbs 08/14/2012 Blood Pressure 1: 126/70 Code: 8480-6 BMI: 29.4 Code: 77027-6 Heart Rate 1: 80 bpm Height: 6'1" Respiratory Rate: 20 bpm Temperature: 36.8 (C ) / 98.3 (F) Weight: 223 lbs 07/17/2012 Blood Pressure 1: 124/82 Code: 8480-6 BMI: 29.7 Code: 94534-1 Heart Rate 1: 80 bpm Height: 6'1" Respiratory Rate: 20 bpm Temperature: 36.8 (C ) / 98.2 (F) Weight: 225 lbs 03/20/2012 Blood Pressure 1: 124/78 Code: 8480-6 BMI: 29.3 Code: 17149-9 Heart Rate 1: 72 bpm Height: 6'1" Respiratory Rate: 20 bpm Temperature: 36.6 (C ) / 97.8 (F) Weight: 222 lbs 12/08/2011 Blood Pressure 1: 112/64 Code: 8480-6 BMI: 28.2 Code: 90422-2 Heart Rate 1: 78 bpm Height: 6'1" Temperature: 36.3 (C ) / 97.4 (F) Weight: 214 lbs 08/11/2011 Blood Pressure 1: 128/70 Code: 8480-6 BMI: 27.6 Code: 76208-2 Heart Rate 1: 76 bpm Height: 6'1" [...] hronic 04/14/2015 Stopped lipitor about 1 w [facility] ago and is going try OTC krill [...] was hit by 80-100lb door when at [facility] getting US done venous thrombosis Quality acute [...] cic spine 08/11/2011 None 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 lost 35lbs over past year back pain Location diffu sely 05/26/2010 None knee pain Quality chronic 05/26/2010 were on hydrocodone and just started oxy contin but thinks hydrocodone worked better hyperlipidemia Quality s table 05/26/2010 None Advance Directives No Advance Directive data Encounters Encounter Performer Loca tion Codes Date ([id number]) OFFICE/OUTPA TIENT VISIT EST Diagnosis: 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] Diagnosis: Bilateral primary osteoarthritis of knee[ICD10: M17.0] Diagnosis: Nicotine dependence, unspecified, uncomplicated[ICD10: F17.200] Diagnosis: Mixed hyperlipidemia[ICD10: E78.2] Martita YOUNG DO [facility] CPT-4: 27289 03/27/2019 ([id number]) OFFICE/OUTPA TIENT VISIT EST Diagnosis: Mixed hyperlipidemia[ICD10: E78.2] Diagnosis: 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] Diagnosis: Other intervertebral disc degeneration, 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] Martita SIMONS [facility] CPT-4: 78388 12/25/2018 ([id number]) OFFICE/OUTPA TIENT VISIT EST Diagnosis: Mixed hyperlipidemia[ICD10: E78.2] Diagnosis: Other fatigue[ICD10: R53.83] Diagnosis: Encounter for screening for malignant neoplasm of prostate[ICD10: Z12.5] Diagnosis: Primary osteoarthritis, 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] Diagnosis: Pain in thoracic spine[ICD10: M54.6] Martita YOUNG [employer] [facility] CPT-4: 11051 06/19/2018 ([id number]) OFFICE/OUTPA TIENT VISIT EST Diagnosis: Encounter for therapeutic drug level monitoring[ICD10: Z51.81] Diagnosis: Pain in 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: M25.531] Diagnosis: Pain in right knee[ICD10: M25.561] Diagnosis: Pain in left knee[ICD10: M25.562] Marian CUENCA [employer] CPT-4: 92936 03/02/2018 ([id number]) OFFICE/OUTPA TIENT VISIT EST Diagnosis: Mixed hyperlipidemia[ICD10: E78.2] Martita YOUNG [employer] CPT-4: 70448 08/01/2017 ([id number]) OFFICE/OUTPA TIENT VISIT EST Diagnosis: Other spondylosis with radiculopathy, cervical region[ICD10: M47.22] Diagnosis: Pain in 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: M25.531] Diagnosis: Mixed hyperlipidemia[ICD10: E78.2] Diagnosis: 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] Martita SIMONS [employer] CPT-4: 86801 07/18/2017 ([id number]) OFFICE/OUTPA TIENT VISIT EST Diagnosis: Other intervertebral disc degeneration, 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] Diagnosis: Cervicalgia[ICD10: M54.2] Martita SIMONS DO [facility] CPT-4: 97474 04/24/2017 ([id number]) OFFICE/OUTPA TIENT VISIT EST Diagnosis: Cervicalgia[ICD10: M54.2] Diagnosis: Other intervertebral disc degeneration, 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] Diagnosis: Mixed hyperlipidemia[ICD10: E78.2] Martita YOUNG [employer] CPT-4: 19170 01/04/2017 ([id number]) OFFICE/OUTPA TIENT VISIT EST Diagnosis: Mixed hyperlipidemia[ICD10: E78.2] Diagnosis: Encounter for general adult medical examination with abnormal findings[ICD10: Z00.01] Martita SIMONS DO [facility] CPT-4: 40572 09/09/2016 ([id number]) PREV VISIT E ST AGE 40-64 Diagnosis: Mixed hyperlipidemia[ICD10: E78.2] Diagnosis: Nicotine dependence, unspecified, uncomplicated[ICD10: F17.200] Diagnosis: Chronic obstructive pulmonary disease with acute lower respiratory infection[ICD10: J44.0] Diagnosis: Bilateral primary osteoarthritis of knee[ICD10: M17.0] Diagnosis: Pain in thoracic spine[ICD10: M54.6] Diagnosis: Pain in 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: M25.531] Diagnosis: Encounter for general adult medical examination with abnormal findings[ICD10: Z00.01] Martita SIMONS DO [facility] CPT-4: 22854 09/07/2016 ([id number]) OFFICE/OUTPA TIENT VISIT EST Diagnosis: Mixed hyperlipidemia[ICD10: E78.2] Martita YOUNG [employer] CPT-4: 01123 09/15/2015 ([id number]) OFFICE/OUTPA TIENT VISIT EST Diagnosis: Acute bronchitis, unspecified[ICD10: J20.9] Diagnosis: Chronic obstructive pulmonary disease with acute lower respiratory infection[ICD10: J44.0] Diagnosis: Lumbago with sciatica, right side[ICD10: M54.41] Martita AGUIRRE NDER [facility] CPT-4: 90429 08/31/2015 ([id number]) OFFICE/OUTPA TIENT VISIT EST Diagnosis: HYPERLIPIDEMIA NEC/NOS[ICD9: 272.4] Diagnosis: TOBACCO USE DISORDER[ICD9: 305.1] Diagnosis: Osteoarthritis, knee[ICD9: 715.96] Diagnosis: Chronic back pain[ICD9: 724.5] Martita SIMONS DO [facility] CPT-4: 42536 04/14/2015 ([id number]) OFFICE/OUTPA TIENT VISIT EST Diagnosis: HYPERLIPIDEMIA NEC/NOS[ICD9: 272.4] Diagnosis: COPD[ICD9: 496] Diagnosis: ROUTINE MEDICAL EXAM[ICD9: V70.0] Martita TIJERINAR [facility] CPT-4: 56098 11/10/2014 ([id number]) OFFICE/OUTPA TIENT VISIT EST Diagnosis: Wrist pain[ICD9: 719.43] Diagnosis: Knee osteoarthritis[ICD9: 715.96] Diagnosis: Chronic back pain[ICD9: 724.5] Martita SIMONS DO [facility] CPT-4: 62104 10/07/2014 ([id number]) OFFICE/OUTPA TIENT VISIT EST Diagnosis: HYPERLIPIDEMIA NEC/NOS[ICD9: 272.4] Diagnosis: Chronic back pain[ICD9: 724.5] Diagnosis: OSTEOARTH NOS-L/LEG[ICD9: 715.96] Martita AGUIRRE NDER DO [facility] CPT-4: 34480 05/01/2014 ([id number]) OFFICE/OUTPA TIENT VISIT EST Diagnosis: HYPERLIPIDEMIA NEC/NOS[ICD9: 272.4] Martita AGUIRRE NDER DO [facility] CPT-4: 95465 04/29/2014 ([id number]) OFFICE/OUTPA TIENT VISIT EST Diagnosis: ROUTINE MEDICAL EXAM[ICD9: V70.0] Diagnosis: HYPERLIPIDEMIA NEC/NOS[ICD9: 272.4] Martita AGUIRRE NDER [employer] [facility] CPT-4: 35433 12/18/2013 OFFICE/OUTPATIENT SIT EST Diagnosis: HYPERLIPIDEMIA NEC/NOS[ICD9: 272.4] Diagnosis: COPD[ICD9: 496] Diagnosis: Knee pain[ICD9: 719.46] Diagnosis: Wrist pain[ICD9: 719.43] Martita SIMONS [facility] CPT-4: 17272 12/17/2013 OFFICE/OUTPATIENT SIT EST Diagnosis: COPD W/ ACUTE EXACERB[ICD9: 491.21] Diagnosis: COUGH[ICD9: 786.2] Martita SIMONS [facility] CPT-4: 61542 12/11/2012 ([id number]) OFFICE/OUTPA TIENT VISIT EST Diagnosis: BRONCHITIS, ACUTE[ICD9: 466.0] Diagnosis: COPD exacerbation[ICD9: 491.21] Martita SIMONS [facility] CPT-4: 67426 12/04/2012 ([id number]) OFFICE/OUTPA TIENT VISIT EST Diagnosis: DERMATITIS NOS[ICD9: 692.9] Diagnosis: TOBACCO USE DISORDER[ICD9: 305.1] Martita YOUNG [employer] [facility] CPT-4: 55778 08/14/2012 ([id number]) OFFICE/OUTPA TIENT VISIT EST Diagnosis: TOBACCO USE DISORDER[ICD9: 305.1] Diagnosis: PAIN, LOWER BACK[ICD9: 724.2] Diagnosis: PAIN IN THORACIC SPINE[ICD9: 724.1] Diagnosis: DERMATITIS NOS[ICD9: 692.9] Diagnosis: HYPERLIPIDEMIA NEC/NOS[ICD9: 272.4] Martita YOUNG [employer] [facility] CPT-4: 54762 07/17/2012 ([id number]) OFFICE/OUTPA TIENT VISIT EST Diagnosis: HYPERLIPIDEMIA NEC/NOS[ICD9: 272.4] Diagnosis: OSTEOARTH NOS-L/LEG[ICD9: 715.96] Diagnosis: JOINT PAIN-L/LEG[ICD9: 719.46] Diagnosis: AC EMBL SUPRFCL UP EXT[ICD9: 453.81] Martita YOUNG [employer] [facility] CPT-4: 87821 03/20/2012 ([id number]) OFFICE/OUTPA TIENT VISIT EST Diagnosis: PAIN, LOWER BACK[ICD9: 724.2] Diagnosis: Superficial venous thrombosis of arm[ICD9: 453.81] Diagnosis: Trigger finger, left[ICD9: 727.03] Martitamichael AGUIRRE NDER [employer] CPT-4: 90910 12/08/2011 OFFICE/OUTPATIENT SIT EST Diagnosis: Knee pain[ICD9: 719.46] Diagnosis: Knee osteoarthritis[ICD9: 715.96] Diagnosis: Thoracic back pain[ICD9: 724.1] Diagnosis: HYPERLIPIDEMIA NEC/NOS[ICD9: 272.4] Martita AGUIRRE NDER [employer] CPT-4: 02547 08/11/2011 ([id number]) OFFICE/OUTPA TIENT VISIT, NEW Martita AGUIRRE NDER [employer] CPT-4: 33888 05/26/2010 Plan of Care Planned Activity Notes C odes Status Date Visit Diagnosis Plan: 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 Discussion: Discussed [...] Diagnosis Plan: 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 Discussion: Smoking Cessation Continue current meds and fwup with cardiology ICD-9 : 414.00 ICD-10 : I25.10 12/25/2018 Appointment: [facility] [phone] [id number] [facility] 12/25/2018 Appointment: Martita Simonstel: [address] [place], [place] [id number] OFFICE SURGERY 08/22/2018 Visit Diagnosis Plan: Pain [...] : R53.83 06/19/2018 Appointment: Martita Simons WPtel: [address] [place], [place] [phone] [place] MEDICATION REVIEW 06/19/2018 Appointment: Martita Simons WPtel: [address] [place], [place] [phone] [place] CANCELED 06/05/2018 Appointment: Martita Simons WPtel: [address] [place], [place] [phone] [place] CANCELED 05/08/2018 Visit Diagnosis Plan: Pain [...] : M25.561 03/02/2018 [facility]ment[facility] [address] [id number] 03/02/2018 Patient Education: Patient Medication Summary Completed 03/02/2018 Appointment: Martita Simons WPtel: [address] [place], [place] [phone] UA 02/01/2018 Patient Education: Patient Medication Summary Completed 02/01/2018 Visit Diagnosis Plan: Other synovitis an d tenosynovitis, right hand Discussion: Right wrist cleansed with al cohol and betadine and injected laterally with 1cc 1% lidocaine with 20mg kenalog and 2mg dexamethasone, tolerated well with no complications, neosporin and bandage applied ICD-9 : 727.05 ICD-10 : M65.841 08/31/2017 Appointment: Martita Simons WPtel: [address] [place] [address] ACUTE ILLNESS 08/31/2017 Patient Education: Patient Medication Summary Completed 08/31/2017 Appointment: Martita Simons WPtel: [address] [place], [place] [phone] 08/01/2017 Patient Education: Patient Medication [...] D17.1 07/18/2017 Appointment: Martita Simons [facility] [phone] [id number] [place] MEDICATION REVIEW 07/18/2017 Patient Education: Patient Medication Summary Completed 07/18/2017 Visit Diagnosis Plan: Other intervertebr al disc degeneration, lumbar region Discussion: Add PT For lumbar spine ICD-9 : 722.52 ICD-10 : M51.36 04/24/2017 Visit Diagnosis Plan: Cervicalgia Di scussion: Continue PT then fwup after done with PT ICD-9 : 723.1 ICD-10 : M54.2 04/24/2017 Appointment: Martita Simons [facility]Pt[facility] [phone] [id number] [place] MEDICATION REVIEW 04/24/2017 Patient Education: Patient Medication Summary Completed 04/24/2017 Patient Education: Patient Medication Summary Completed 03/22/2017 Care Plan: MRI NECK SPINE W/O DYE LOINC : 89011-4 Pending 03/22/2017 Visit Diagnosis Plan: Other intervertebr [...] : E78.2 01/04/2017 Appointment: Martita Simons WPtel: [id number] [facility] /6 lm` /-Confirmed MEDICATI ON REVIEW 01/04/2017 Patient Education: Patient Medication Summary Completed 01/04/2017 Visit Diagnosis Plan: Mixed hyperlipidemia Discussion: Lab discussed Restart lipitor/lifestyle change ICD-9 : 272.4 ICD-10 : E78.2 09/12/2016 Visit Diagnosis Plan: Other enthesopathi es, not elsewhere classified Discussion: Right wrist injection as abo ve ICD-9 : 727.05 ICD-10 : M77.8 09/12/2016 Appointment: Martita Simons WPtel: [address] [place] [id number] 09/12 confirmed `sl INJECTION 09/12/2016 Patient Education: Patient Medication Summary Completed 09/12/2016 Appointment: Martita Simons WPtel: [address] [place] [id number] [place] LAB 09/09/2016 Patient Education: Patient Medication Summary Completed 09/09/2016 Visit Diagnosis Plan: Nicotine dependenc e, unspecified, uncomplicated Discussion: Tobacco Abuse ICD-9 : 305.1 ICD-10 : F17.200 09/07/2016 Visit Diagnosis Plan: Chronic obstructiv e pulmonary disease with acute lower respiratory infection Discussion: Smoking Cessation Symbicort Check CXR ICD-9 : 496 ICD-10 : J44.0 09/07/2016 Visit Diagnosis Plan: Encounter for gene [facility] adult medical examination with abnormal findings Discussion: Update fasting lab Follow Up: 4 months ICD-9 : V70.0 ICD-10 : Z00.01 09/07/2016 Visit Diagnosis Plan: Pain in right wrist Discussion: Will return for wrist injection ICD-9 : 719.43 ICD-10 : M25.531 09/07/2016 Visit Diagnosis Plan: Mixed hyperlipidemia Discussion: Check CMP, Lipids ICD-9 : 272.4 ICD-10 : E78.2 09/07/2016 Appointment: Martita Simons WPtel: [address] [place] [id number] 09/06 confirmed~sl Annual Well Visit 09/07/2016 Patient Education: Patient Medication Summary Completed 09/07/2016 Care Plan: CHEST X-RAY 2VW FRONTAL&LATL LOINC : 79167-9 Pending 09/07/2016 Visit Plan: Filled out [employer] Paperwork 08/05/2016 Patient Education: Patient Medication Summary Completed 08/05/2016 Appointment: Martita Simons WPtel: [id number] [place] UA 04/25/2016 Patient Education: Patient Medication Summary Completed 04/25/2016 Appointment: Martita Simonstel: [address] [place] [id number] [place] LAB 09/15/2015 Patient Education: Patient Medication [...] [employer] 08/31/2015 Appointment: Martita Simons WPtel: [address] [place], [place] [phone] 08/28/15 [facility] 08/28/15 appt confirmed c n FOLLOW UP 08/31/2015 Patient Education: Patient Medication Summary Completed 08/31/2015 Appointment: Martita Simons WPtel: [address] [place] [id number] UA 07/29/2015 Visit Plan: CMP, Lipids today Patie nt stopped chol meds 1week ago Continue hydrocodone 04/14/2015 Visit Plan: CMP, Lipids today Patie nt stopped chol meds 1week ago Continue hydrocodone 04/14/2015 Appointment: Martita Simons WPtel: [address] [place], [place] [phone] [place] FOLLOW UP 04/14/2015 Patient Education: Patient Medication Summary Completed 04/14/2015 Appointment: Martita Simons WPtel: [address] [place], [place] [phone] [place] LAB 11/10/2014 Patient Education: Patient Medication Summary Completed 11/10/2014 Visit Plan: Fasting lab at end of M arch for Lipids/LFTs Continue hydrocodone at current dose Needs to be on low dose asprin 81mg daily With upcoming trip need to stop every 2hours and get out and stretch 10/07/2014 Appointment: Martita Simons WPtel: [address] [place], [place] [phone] FOLLOW UP 10/07/2014 Patient Education: Patient Medication Summary Completed 10/07/2014 Visit Plan: Lab discussed Will keep meds the same Keep hydrocodone at current dose--discussed schedule change on May 05 05/01/2014 Appointment: Martita Simonstel: [address] [place], [place] [phone] 04/29 confirmed when in for labs; asked if he still wanted a reminder call on Monday and he said no he would be here. FOLLOW UP 05/01/2014 Patient Education: Patient Medication Summary Completed 05/01/2014 Appointment: Martita Simons WPtel: [address] [place], [place] [phone] LAB 04/29/2014 Patient Education: Patient Medication Summary Completed 04/29/2014 Appointment: Martita Simonstel: [address] [place] [id number] LAB 12/18/2013 Patient Education: Patient Medication Summary Completed 12/18/2013 Visit Plan: Check fasting lab in AM --CMP, Lipids, CBC, TSH, Free T4, PSA Pt has stopped smoking since July See hand specialist about wrist 12/17/2013 Appointment: Martita Simonstel: [address] [place], [place] [phone] 12/16 FOLLOW UP 12/17/2013 Patient Education: Patient Medication Summary Completed 12/17/2013 Visit Plan: Check CXR Start SVNs wi th albuterol 0.083% QID 12/11/2012 Appointment: Martita Simons WPtel: [address] [place] [id number] FOLLOW UP 12/11/2012 Patient Education: Patient Medication Summary Completed 12/11/2012 Visit Plan: Zithromax for 1wk Predn isone for 1wk Symbicort 160/4.5 2p BID 12/04/2012 Appointment: Martita Simons WPtel: [address] [place], [place] [phone] ACUTE ILLNESS 12/04/2012 Patient Education: Patient Medication Summary Completed 12/04/2012 Visit Plan: Continue nystatin/TAC c ream and add Lamisil for next month No lipitor for next month If rash persists then will need biopsy Trial of chantix--warned of suicidal ideation/depression Call in 1mo on finger lesion and chantix 08/14/2012 Appointment: Martita Simons WPtel: [address] [place], [place] [phone] 08/13 no answer...08/13 pt called back a nd confirmed OFFICE SURGERY 013 Patient Education: Patient Medication Summary Completed 08/14/2012 Visit Plan: Smoking cessation Trial of Wellbutrin Nystatin TAC to finger lesion for 2-4 wks Check CMP, Lipids 07/17/2012 Appointment: Martita Simons WPtel: [address] [place], [place] [phone] FOLLOW UP 07/17/2012 Patient Education: Patient Medication Summary Completed 07/17/2012 Appointment: Martita Simons WPtel: [address] [place], [place] [phone] Appointment was confirmed by CN on 06/29 12/ pt called, in family, was in [place] just got back 07/03 - [facility] ACUTE ILLNESS 07/02/20 12 Visit Plan: Obtain US results of RU E DC coumadin as has been 3mos and start Aspirin 325mg daily Check CMP, Lipids, CBC, ESR, CRP today 03/20/2012 Appointment: Martita Simons WPtel: [address] [place] [address] FOLLOW UP 03/20/2012 Patient Education: Patient Medication Summary Completed 03/20/2012 Appointment: Martita Simons WPtel: [address] [place] [address] Patient called 2 hours past appt. Said saw a specialist today and specialist is not concerned about blod clot so doesnt want to reschedule-CN FOLLOW UP 12/14/2011 Appointment: Martita Simons WPtel: [address] [place] [address] FOLLOW UP 12/13/2011 Visit Plan: Continue coumadin--IM i s following level--discussed will likely need 6-12wks Observe contusion to right lower back Fwup with ortho as scheduled 12/08/2011 Appointment: Martita Simons WPtel: [address] [place] [address] ACUTE ILLNESS 12/08/2011 Patient Education: Patient Medication Summary Completed 12/08/2011 Visit Plan: Check fasting lab when goes for pre-op lab including CMP, CBC, Lipids, TSH, Free T4, PSA, uric acid Needs colonoscopy Hydrocodone refilled #80 to [facility] 08/11/2011 Appointment: Martita Simons WPtel: [address] [place] [address] ESTABLISHED PATIENT 08/11/2011 Patient Education: Patient Medication Summary Completed 08/11/2011 Visit Plan: Obtain most recent lab results Cont current meds Explained that cannot refill pain meds without current rx Discussed Synvisc injections and see ortho as oxycontin for knee arthritis is strong pain med 05/26/2010 Appointment: Martita Simons WPtel: [address] [place] [address] NEW PATIENT 05/26/2010 Patient Education: Patient Medication [...] is strong pain med . Filled out [employer] Paperwork . Continue coumadin- -IM is following [...]
--- OUTSIDE RECORDS SUMMARY | 2020-01-12 17:49 | XMS REPORT | CCD ---
Author Author Syd Simons D.O. 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 [employer] Insurance [id number] Unknown Family history Brother Diagnosis Age At Onset No Family Disease Entered N/A Father Diagnosis Age At Onset No Family Disease Entered N/A Mother Diagnosis Age At Onset No Family Disease Entered N/A Social History Social History Element Codes Description Effective Dates Tobacco history SNOMED CT: 78130259 Current every day smoker 08/11/2011 Number of [...] Resolved Date Atherosclerotic hear t disease of [place] coronary artery without angina pectoris ICD-9: 414.00 ICD-10: I25.10 Active 12/25/2018 Unknown Mixed hyperlipidemia ICD-9: 272.4 ICD-10: E78.2 Active 12/17/2013 Unknown Other intervertebral disc degeneration, lumbar region [...] ICD-9: V70.0 ICD-10: Z00.01 Active 09/07/2016 Unknown Bilateral primary os teoarthritis of knee ICD-9: 715.96 ICD-10: M17.0 Active 05/01/2014 Unknown Chronic obstructive pulmonary disease with acute lower respiratory infection ICD-9: 496 ICD-10: J44.0 Active 12/17/2013 Unknown Nicotine dependence, unspecified, uncomplicated ICD-9: 305.1 ICD-10: F17.200 Active 09/07/2016 Unknown Dorsalgia, unspecified ICD-9: 724.5 ICD-10: M54.9 [...] Condition Status Atherosclerotic hear t disease of [place] coronary artery without angina pectoris ICD-9: 414.00 ICD-10: I25.10 12/25/2018 Active Mixed hyperlipidemia ICD-9: 272.4 ICD-10: E78.2 12/17/2013 Active Other intervertebral disc degeneration, lumbar region [...] findings ICD-9: V70.0 ICD-10: Z00.01 09/07/2016 Active Bilateral primary os teoarthritis of knee ICD-9: 715.96 ICD-10: M17.0 05/01/2014 Active Chronic obstructive pulmonary disease with acute lower respiratory infection ICD-9: 496 ICD-10: J44.0 12/17/2013 Active Nicotine dependence, unspecified, uncomplicated ICD-9: 305.1 ICD-10: F17.200 09/07/2016 Active Dorsalgia, unspecified ICD-9: 724.5 ICD-10: [...] 10 mg-ac etaminophen 325 mg tablet RxNorm: 484096 1 Tablet(s) PO Q6H as needed for pain 02/25/2019 No Stop Date Active (Response to an electronic c ontrolled substance refill request - RxReferenceNumber: [id number]|1|0|1) hydrocodone 10 mg-ac etaminophen 325 mg tablet RxNorm: 304569 1 Tablet(s) PO Q6H as needed for pain 11/26/2018 02/24/2019 Inactive (Response to an electronic controlled substance refill request - RxReferenceNumber: [id number]|1|0|1) hydrocodone 10 mg-ac etaminophen 325 mg tablet RxNorm: 554574 1 Tablet(s) PO Q6H as needed for pain 10/30/2018 11/25/2018 Inactive (Response to an electronic controlled substance refill request - RxReferenceNumber: [id number]|1|0|1) hydrocodone 10 mg-ac etaminophen 325 mg tablet RxNorm: 262864 1 Tablet(s) PO Q6H as needed for pain 09/26/2018 10/29/2018 Inactive (Response to an electronic controlled substance refill request - RxReferenceNumber: [id number]|1|0|1) hydrocodone 10 mg-ac etaminophen 325 mg tablet RxNorm: 133638 1 Tablet(s) PO Q6H as needed for pain 08/30/2018 09/25/2018 Inactive (Response to an electronic controlled substance refill request - RxReferenceNumber: [id number]|1|0|1) hydrocodone 10 mg-ac etaminophen 325 mg tablet RxNorm: 181521 1 Tablet(s) PO Q6H as needed for pain 08/01/2018 08/29/2018 Inactive (Response to an electronic controlled substance refill request - RxReferenceNumber: [id number]|1|0|1) hydrocodone 10 mg-ac etaminophen 325 mg tablet RxNorm: 983526 1 Tablet(s) PO Q6H as needed for pain 07/04/2018 07/31/2018 Inactive (Response to an electronic controlled substance refill request - RxReferenceNumber: [id number]|1|0|1) hydrocodone 10 mg-ac etaminophen 325 mg tablet RxNorm: 263799 1 Tablet(s) PO Q6H as needed for pain 05/31/2018 07/03/2018 Inactive (Response to an electronic controlled substance refill request - RxReferenceNumber: [id number]|1|0|1) hydrocodone 10 mg-ac etaminophen 325 mg tablet RxNorm: 336884 1 Tablet(s) PO Q6H as needed for pain 05/01/2018 05/30/2018 Inactive (Response to an electronic controlled substance refill request - RxReferenceNumber: [id number]|1|0|1) hydrocodone 10 mg-ac etaminophen 325 mg tablet RxNorm: 723686 1 Tablet(s) PO Q6H as needed for pain 04/03/2018 04/30/2018 Inactive (Response to an electronic controlled substance refill request - RxReferenceNumber: [id number]|1|0|1) hydrocodone 10 mg-ac etaminophen 325 mg tablet RxNorm: 424507 1 Tablet(s) PO Q6H as needed for pain 02/26/2018 04/02/2018 Inactive (Response to an electronic controlled substance refill request - RxReferenceNumber: [id number]|1|0|1) clotrimazole-betamet hasone 1 %-0.05 % topical cream RxNorm: 513303 TOP As Directed CALL IF NO IMPROVEMENT IN 2 WEEKS 01/30/2018 01/29/2018 Inactive [SAVINGS FOR UNINSURED PATIENTS -- BIN:[id number], PCN: [id number], Group: [id number], ID# [id number], Process claim through [employer], for questions: . THIS IS NOT INSURANCE.] hydrocodone 10 mg-ac etaminophen 325 mg tablet RxNorm: 259293 1 Tablet(s) PO Q6H as needed for pain 01/29/2018 02/25/2018 Inactive (Response to an electronic controlled substance refill request - RxReferenceNumber: [id number]|1|0|1) hydrocodone 10 mg-ac etaminophen 325 mg tablet RxNorm: 511151 1 Tablet(s) PO Q6H as needed for pain 12/28/2017 01/28/2018 Inactive (Response to an electronic controlled substance refill request - RxReferenceNumber: [id number]|1|0|1) hydrocodone 10 mg-ac etaminophen 325 mg tablet RxNorm: 881137 1 Tablet(s) PO Q6H as needed for pain 11/29/2017 12/27/2017 Inactive (Response to an electronic controlled substance refill request - RxReferenceNumber: [id number]|1|0|1) hydrocodone 10 mg-ac etaminophen 325 mg tablet RxNorm: 891934 1 Tablet(s) PO Q6H as needed for pain 11/02/2017 11/28/2017 Inactive (Response to an electronic controlled substance refill request - RxReferenceNumber: [id number]|1|0|1) hydrocodone 10 mg-ac etaminophen 325 mg tablet RxNorm: 735711 1 Tablet(s) PO Q6H as needed for pain 10/02/2017 11/01/2017 Inactive (Response to an electronic controlled substance refill request - RxReferenceNumber: [id number]|1|0|1) hydrocodone 10 mg-ac etaminophen 325 mg tablet RxNorm: 013993 1 Tablet(s) PO Q6H as needed for pain 08/30/2017 10/01/2017 Inactive (Response to an electronic controlled substance refill request - RxReferenceNumber: [id number]|1|0|1) hydrocodone 10 mg-ac etaminophen 325 mg tablet RxNorm: 836755 1 Tablet(s) PO Q6H as needed for pain 08/01/2017 08/29/2017 Inactive (Response to an electronic controlled substance refill request - RxReferenceNumber: [id number]|1|0|1) hydrocodone 10 mg-ac etaminophen 325 mg tablet RxNorm: 172366 1 Tablet(s) PO Q6H as needed for pain 06/26/2017 No Stop Date Active (Response to an electronic c ontrolled substance refill request - RxReferenceNumber: [id number]|1|0|1) hydrocodone 10 mg-ac etaminophen 325 mg tablet RxNorm: 225580 1 Tablet(s) PO Q6H as needed for pain 06/26/2017 07/31/2017 Inactive (Response to an electronic controlled substance refill request - RxReferenceNumber: [id number]|1|0|1) hydrocodone 10 mg-ac etaminophen 325 mg tablet RxNorm: 584676 1 Tablet(s) PO Q6H as needed for pain 03/27/2017 06/25/2017 Inactive (Response to an electronic controlled substance refill request - RxReferenceNumber: [id number]|1|0|1) hydrocodone 10 mg-ac etaminophen 325 mg tablet RxNorm: 664220 1 Tablet(s) PO Q6H as needed for pain 02/23/2017 03/26/2017 Inactive (Response to an electronic controlled substance refill request - RxReferenceNumber: [id number]|1|0|1) hydrocodone 10 mg-ac etaminophen 325 mg tablet RxNorm: 747473 1 Tablet(s) PO Q6H as needed for pain 01/24/2017 02/22/2017 Inactive (Response to an electronic controlled substance refill request - RxReferenceNumber: [id number]|1|0|1) hydrocodone 10 mg-ac etaminophen 325 mg tablet RxNorm: 520995 1 Tablet(s) PO Q6H as needed for pain 12/27/2016 No Stop Date Active (Response to an electronic c ontrolled substance refill request - RxReferenceNumber: [id number]|1|0|1) hydrocodone 10 mg-ac etaminophen 325 mg tablet RxNorm: 663371 1 Tablet(s) PO Q6H as needed for pain 12/27/2016 01/23/2017 Inactive (Response to an electronic controlled substance refill request - RxReferenceNumber: [id number]|1|0|1) hydrocodone 10 mg-ac etaminophen 325 mg tablet RxNorm: 308397 1 Tablet(s) PO Q6H as needed for pain 11/23/2016 12/26/2016 Inactive (Response to an electronic controlled substance refill request - RxReferenceNumber: [id number]|1|0|1) hydrocodone 10 mg-ac etaminophen 325 mg tablet RxNorm: 667202 1 Tablet(s) PO Q6H as needed for pain 10/20/2016 11/22/2016 Inactive (Response to an electronic controlled substance refill request - RxReferenceNumber: [id number]|1|0|1) hydrocodone 10 mg-ac etaminophen 325 mg tablet RxNorm: 521794 1 Tablet(s) PO Q6H as needed for pain 09/26/2016 10/19/2016 Inactive (Response to an electronic controlled substance refill request - RxReferenceNumber: [id number]|1|0|1) hydrocodone 10 mg-ac etaminophen 325 mg tablet RxNorm: 770048 1 Tablet(s) PO Q6H as needed for pain 07/27/2016 09/25/2016 Inactive (Response to an electronic controlled substance refill request - RxReferenceNumber: [id number]|1|0|1) hydrocodone 10 mg-ac etaminophen 325 mg tablet RxNorm: 705602 1 Tablet(s) PO Q6H as needed for pain 05/04/2016 07/26/2016 Inactive (Response to an electronic controlled substance refill request - RxReferenceNumber: [id number]|1|0|1) hydrocodone 10 mg-ac etaminophen 325 mg tablet RxNorm: 588766 1 Tablet(s) PO Q6H as needed for pain 03/31/2016 05/03/2016 Inactive (Response to an electronic controlled substance refill request - RxReferenceNumber: [id number]|1|0|1) citalopram 10 mg tablet RxNorm: 771847 1 Tablet(s) PO QD 09/28/2015 09/27/2015 Inactive citalopram 10 mg tablet RxNorm: 568124 1 Tablet(s) PO QD 09/28/2015 09/06/2016 Inactive Wellbutrin SR 150 mg tablet,sustained-release RxNorm: 552583 1 Tablet(s) PO QAM 09/25/2015 09/06/2016 In active prednisone 20 mg tablet RxNorm: 937829 1 Tablet(s) PO TID for 3 days then 1 po BID for 3 days then one daily for 3 days 08/31/2015 09/06/2016 Inactive cyclobenzaprine 10 m g tablet RxNorm: 959425 1 Tablet(s) PO TID as needed for muscle spasm 08/31/2015 07/17/2017 Inactive hydrocodone 10 mg-ac etaminophen 325 mg tablet RxNorm: 147043 1 Tablet(s) PO Q6H as needed for pain 08/26/2015 03/30/2016 Inactive (Response to an electronic controlled substance refill request - RxReferenceNumber: [id number]|1|0|1) hydrocodone 10 mg-ac etaminophen 325 mg tablet RxNorm: 384267 1 Tablet(s) PO Q6H as needed for pain 07/28/2015 08/25/2015 Inactive (Response to an electronic controlled substance refill request - RxReferenceNumber: [id number]|1|0|1) hydrocodone 10 mg-ac etaminophen 325 mg tablet RxNorm: 483738 1 Tablet(s) PO Q6H as needed for pain 06/23/2015 07/27/2015 Inactive (Response to an electronic controlled substance refill request - RxReferenceNumber: [id number]|1|0|1) hydrocodone 10 mg-ac etaminophen 325 mg tablet RxNorm: 281189 1 Tablet(s) PO Q6H as needed for pain 05/21/2015 06/22/2015 Inactive (Response to an electronic controlled substance refill request - RxReferenceNumber: [id number]|1|0|1) azithromycin 250 mg tablet RxNorm: 724656 2 Tablet(s) PO on day one, then one tablet on days 2 - 5 04/27/2015 08/30/2015 Inactive hydrocodone 10 mg-ac etaminophen 325 mg tablet RxNorm: 761317 1 Tablet(s) PO Q6H as needed for pain 03/25/2015 05/20/2015 Inactive (Response to an electronic controlled substance refill request - RxReferenceNumber: [id number]|1|0|1) hydrocodone 10 mg-ac etaminophen 325 mg tablet RxNorm: 957625 1 Tablet(s) PO Q6H as needed for pain 02/24/2015 03/24/2015 Inactive (Response to an electronic controlled substance refill request - RxReferenceNumber: [id number]|1|0|1) hydrocodone 10 mg-ac etaminophen 325 mg tablet RxNorm: 061901 1 Tablet(s) PO Q6H as needed for pain 01/23/2015 02/23/2015 Inactive (Response to an electronic controlled substance refill request - RxReferenceNumber: [id number]|1|0|1) hydrocodone 10 mg-ac etaminophen 325 mg tablet RxNorm: 598334 1 Tablet(s) PO Q6H as needed for pain 12/23/2014 01/22/2015 Inactive (Response to an electronic controlled substance refill request - RxReferenceNumber: [id number]|1|0|1) hydrocodone 10 mg-ac etaminophen 325 mg tablet RxNorm: 519690 1 Tablet(s) PO Q6H as needed for pain 11/24/2014 12/22/2014 Inactive (Response to an electronic controlled substance refill request - RxReferenceNumber: [id number]|1|0|1) hydrocodone 10 mg-ac etaminophen 325 mg tablet RxNorm: 504845 1 Tablet(s) PO Q6H as needed for pain 10/28/2014 11/23/2014 Inactive (Response to an electronic controlled substance refill request - RxReferenceNumber: [id number]|1|0|1) hydrocodone 10 mg-ac etaminophen 325 mg tablet RxNorm: 354558 1 Tablet(s) PO Q6H as needed for pain 09/25/2014 10/27/2014 Inactive (Response to an electronic controlled substance refill request - RxReferenceNumber: [id number]|1|0|1) Lipitor 80 mg tablet RxNorm: 911137 1 Tablet(s) PO QHS 09/24/2014 04/13/2015 Inactive hydrocodone 10 mg-ac etaminophen 325 mg tablet RxNorm: 810804 1 Tablet(s) PO Q6H as needed for pain 07/30/2014 09/24/2014 Inactive (Response to an electronic controlled substance refill request - RxReferenceNumber: [id number]|1|0|1) hydrocodone 10 mg-ac etaminophen 325 mg tablet RxNorm: 459855 1 Tablet(s) PO Q6H as needed for pain 05/27/2014 07/29/2014 Inactive (Response to an electronic controlled substance refill request - RxReferenceNumber: [id number]|1|0|1) clotrimazole-betamet hasone 1 %-0.05 % topical cream RxNorm: 792523 TOP As Directed 05/01/2014 08/30/2015 In active [SAVINGS FOR UNINSURED PATIENTS -- BIN:0 [id number], PCN: [id number], Group: [id number], ID# [id number], Process claim through [employer], for questions: . THIS IS NOT INSURANCE.] Lipitor 80 mg tablet RxNorm: 679093 1 Tablet(s) PO QHS 04/28/2014 07/26/2014 Inactive hydrocodone 10 mg-ac etaminophen 325 mg tablet RxNorm: 124516 1 Tablet(s) PO Q6H as needed for pain 04/28/2014 05/26/2014 Inactive (Response to an electronic controlled substance refill request - RxReferenceNumber: [id number]|1|0|1) hydrocodone 10 mg-ac etaminophen 325 mg tablet RxNorm: 048297 1 Tablet(s) PO Q6H as needed for pain 03/27/2014 04/27/2014 Inactive (Response to an electronic controlled substance refill request - RxReferenceNumber: [id number]|1|0|1) hydrocodone 10 mg-ac etaminophen 325 mg tablet RxNorm: 912756 1 Tablet(s) PO Q6H as needed for pain 12/20/2013 12/20/2013 Inactive (Appended: Controlled subst ance eRx refill - RxReferenceNumber: [id number]|1|0|1) hydrocodone 10 mg-ac etaminophen 325 mg tablet RxNorm: 434175 TAKE 1 TABLET BY MOUT H EVERY 6 HOURS NEEDED FOR PAIN 12/20/2013 01/12/2014 Inactive (Response to an electronic controlled substance refill request - RxReferenceNumber: [id number]|1|0|1) hydrocodone 10 mg-ac etaminophen 325 mg tablet RxNorm: 543170 1 Tablet(s) PO Q6H as needed for pain 09/03/2013 12/19/2013 Inactive (Appended: Controlled subst ance eRx refill - RxReferenceNumber: [id number]|1|0|1) hydrocodone 10 mg-ac etaminophen 325 mg tablet RxNorm: 502025 Tablet(s) PO TAKE 1 T ABLET BY MOUTH EVERY 6 HOURS NEEDED FOR PAIN 08/08/2013 09/03/2013 Inactive (Kavitha ended: Controlled substance eRx refill - RxReferenceNumber: [id number]|1|0|1) hydrocodone 10 mg-ac etaminophen 325 mg tablet RxNorm: 872392 Tablet(s) PO TAKE 1 T ABLET BY MOUTH EVERY 6 HOURS NEEDED FOR PAIN 07/11/2013 08/07/2013 Inactive (Ap pended: Controlled substance eRx refill - RxReferenceNumber: [id number]|1|0|1) hydrocodone 10 mg-ac etaminophen 325 mg tablet RxNorm: 5627233 Tablet(s) PO TAKE 1 TABLET BY MOUTH EVERY 6 HOURS NEEDED FOR PAIN 06/12/2013 07/11/2013 Inactive (Appended: Controlled substance eRx refill - RxReferenceNumber: [id number]|1|0|1) hydrocodone 10 mg-ac etaminophen 325 mg tablet RxNorm: 6741990 1 Tablet(s) PO Q6H A S NEEDED FOR PAIN 05/15/2013 06/12/2013 Inactive (Appended: Controlled subst ance eRx refill - RxReferenceNumber: [id number]|1|0|1) hydrocodone 10 mg-ac etaminophen 325 mg tablet RxNorm: 9790345 Tablet(s) PO TAKE 1 TO 2 TABLETS BY MOUTH EVERY 6 HOURS NEEDED FOR PAIN 04/18/2013 No Stop Date Active (Appended: Controlled substance eRx refill - RxReferenceNumber: [id number]|1|0|1) hydrocodone 10 mg-ac etaminophen 325 mg tablet RxNorm: 4855673 Tablet(s) PO TAKE 1 TO 2 TABLETS BY MOUTH EVERY 6 HOURS NEEDED FOR PAIN 03/19/2013 No Stop Date Active (Appended: Controlled substance eRx refill - RxReferenceNumber: [id number]|1|0|1) hydrocodone 10 mg-ac etaminophen 325 mg tablet RxNorm: 2385869 Tablet(s) PO TAKE 1 TO 2 TABLETS BY MOUTH EVERY 6 HOURS NEEDED FOR PAIN 02/06/2013 03/18/2013 Inactive (Appended: Controlled substance eRx refill - RxReferenceNumber: [id number]|1|0|1) hydrocodone 10 mg-ac etaminophen 325 mg tablet RxNorm: 8751159 Tablet(s) PO TAKE 1 TO 2 TABLETS BY MOUTH EVERY 6 HOURS NEEDED FOR PAIN 01/08/2013 02/06/2013 Inactive (Appended: Controlled substance eRx refill - RxReferenceNumber: [id number]|1|0|1) Zithromax 250 mg tablet RxNorm: 230670 2 Tablet(s) PO QD 12/04/2012 12/10/2012 Inactive prednisone 20 mg tablet RxNorm: 079648 1 Tablet(s) PO BID 12/04/2012 12/10/2012 Inactive atorvastatin 40 mg t ablet RxNorm: 774887 1 Tablet(s) PO QD 11/08/2012 12/17/2013 Inactive hydrocodone 10 mg-ac etaminophen 325 mg tablet RxNorm: 8306518 Tablet(s) PO TAKE 1 TO 2 TABLETS BY MOUTH EVERY 6 HOURS NEEDED FOR PAIN 10/18/2012 01/08/2013 Inactive (Appended: Controlled substance eRx refill - RxReferenceNumber: [id number]|1|0|1) hydrocodone 10 mg-ac etaminophen 325 mg tablet RxNorm: 2304355 1-2 Tablet(s) PO Q6H as needed for pain 09/06/2012 10/18/2012 Inactive Lamisil 250 mg tablet RxNorm: 680340 1 Tablet(s) PO QD 08/14/2012 09/12/2012 Inactive atorvastatin 40 mg t ablet RxNorm: 734968 1 Tablet(s) PO QD 08/08/2012 11/05/2012 Inactive prednisone 20 mg tablet RxNorm: 279750 1 Tablet(s) PO BID 07/17/2012 07/23/2012 Inactive Wellbutrin SR 150 mg tablet,extended release RxNorm: 984711 1 Tablet(s) PO BID 07/17/2012 08/13/2012 In active meloxicam 15 mg tablet RxNorm: 484315 1 Tablet(s) PO QD for pain 06/27/2012 07/16/2012 Inactive atorvastatin 40 mg t ablet RxNorm: 338235 1 Tablet(s) PO QD 06/27/2012 08/07/2012 Inactive hydrocodone-acetamin ophen 10 mg-325 mg tablet RxNorm: 9824972 1-2 Tablet(s) PO Q6H as needed for pain 05/23/2012 No Stop Date Active hydrocodone-acetamin ophen 10 mg-325 mg tablet RxNorm: 7312551 1-2 Tablet(s) PO Q6H as needed for pain 04/24/2012 No Stop Date Active hydrocodone-acetamin ophen 10 mg-325 mg tablet RxNorm: 4993901 1-2 Tablet(s) PO Q6H as needed for pain 02/08/2012 No Stop Date Active hydrocodone-acetamin ophen 10 mg-325 mg Tab RxNorm: 7549076 1-2 Tablet(s) PO Q6H as needed for pain 01/02/2012 No Stop Date Active hydrocodone-acetamin ophen 10 mg-325 mg Tab RxNorm: 4005019 1-2 Tablet(s) PO Q6H as needed for pain 11/29/2011 No Stop Date Active hydrocodone-acetamin ophen 10 mg-325 mg Tab RxNorm: 2804225 1-2 Tablet(s) PO Q6H as needed for pain 10/24/2011 No Stop Date Active hydrocodone-acetamin ophen 10 mg-325 mg Tab RxNorm: 0005575 1-2 Tablet(s) PO Q6H as needed for pain 10/07/2011 No Stop Date Active simvastatin 40 mg Tab RxNorm: 982605 1 Tablet(s) PO QHS 08/11/2011 03/19/2012 Inactive clopidogrel 75 mg ta blet RxNorm: 339916 1 Tablet(s) PO QD No Start Date Active metoprolol succinate ER 25 mg tablet,extended release 24 hr RxNorm: 273390 1 Tablet(s) PO QD No Start Date Active Symbicort 160 mcg-4. 5 mcg/actuation HFA aerosol inhaler RxNorm: 7835029 2 INH QD No Start Date Active atorvastatin 40 mg t ablet RxNorm: 545274 1 Tablet(s) PO QD No Start Date Active aspirin 81 mg tablet RxNorm: 184362 1 Tablet(s) PO QD No Start Date Active Vitamin D3 2,000 uni t tablet RxNorm: 371840 3 Tablet(s) PO No Start Date Active krill oil oral RxNorm: 10510 oral No Start Date Active lisinopril 5 mg tablet RxNorm: 278413 1 Tablet(s) PO QD No Start Date Active hydrocodone-acetamin ophen 10 mg-325 mg Tab RxNorm: 4581254 1-2 Tablet(s) PO Q6H as needed for pain No Start Date 10/06/2011 Inactive Wellbutrin SR 150 mg tablet,sustained-release RxNorm: 271116 1 Tablet(s) PO QAM No Start Date 09/24/2015 Inactive OxyContin 15 mg 12 h r Tab RxNorm: 1797099 1 Tablet(s) PO BID No Start Date 08/10/2011 Inactive warfarin 5 mg Tab RxNorm: 894342 1 Tablet(s) PO QD No Start Date 03/19/2012 Inactive albuterol sulfate 1. 25 mg/3 mL Neb Solution RxNorm: 432876 1 Unit Dose INH prn wheezing, congestion, shortness of breath No Start Date 04/30/2014 Inactive azithromycin 250 mg tablet RxNorm: 305696 2 Tablet(s) PO on day one, then one tablet on days 2 - 5 No Start Date 04/26/2015 Inactive warfarin 10 mg Tab RxNorm: 820118 1 Tablet(s) PO QOD No Start Date 07/16/2012 Inactive Symbicort Inhl RxNorm: Inhalation No Start Date 12/16/2013 Inactive Trilipix 135 mg Cap RxNorm: 590864 1 Capsule(s) PO QD No Start Date 12/07/2011 Inactive Chantix Starting Mon Box 0.5 mg (11)-1 mg (42) tablets in dose pack RxNorm: 418985 Tablet(s) PO as directed No Start Date 12/03/2012 Inactive clotrimazole-betamet hasone 1 %-0.05 % topical cream RxNorm: 600603 TOP As Directed No Start Date 04/30/2014 Inactive nystatin-triamcinolo ne 100,000 unit/g-0.1 % Topical Cream RxNorm: 3784544 Application TOP BID for 2-4weeks No Start Date 12/03/2012 Inactive Lovastatin 20 mg Tab RxNorm: 260827 1 Tablet(s) PO QHS No Start Date 08/10/2011 Inactive warfarin 7.5 mg Tab RxNorm: 249622 1 Tablet(s) PO QOD No Start Date 07/16/2012 Inactive Lipitor 80 mg tablet RxNorm: 531777 1 Tablet(s) PO QHS No Start Date 04/27/2014 Inactive simvastatin 40 mg Tab RxNorm: 779060 1 Tablet(s) PO QHS No Start Date 08/10/2011 Inactive Gemfibrozil 600 mg Tab RxNorm: 938740 1 Tablet(s) PO QHS No Start Date 08/10/2011 Inactive Medication Administered No Medication Administered data Immunizations No Immunization data Assessments Condition Codes Effectiv e Dates Atherosclerotic heart disease of [place] coronary artery without angina pectoris ICD-10: I25.10 ICD-9: 414.00 12/25/2018 Other intervertebral disc degeneration, lumbar region ICD-10: M51.36 ICD-9: 722.52 12/25/2018 Mixed hyperlipidemia ICD-10: E78.2 ICD-9: 272.4 12/25/2018 Other fatigue ICD-10: R53.83 ICD-9: 780.79 06/19/2018 Primary osteoarthritis, right wrist ICD-10: M19.031 ICD-9: 715.93 06/19/2018 Encounter for screening for malignant neoplasm of [place] ICD-10: Z12.5 ICD-9: V76.44 06/19/2018 Pain in thoracic spine ICD-10: M54.6 ICD-9: 724.1 06/19/2018 Pain in right knee ICD-10: M25.561 ICD-9: 719.46 03/02/2018 Pain in left knee ICD-10: M25.562 ICD-9: 719.46 03/02/2018 Pain in right wrist ICD-10: M25.531 ICD-9: 719.43 03/02/2018 Encounter for therapeutic drug level monitoring ICD-10: Z51.81 ICD-9: V58.83 03/02/2018 Primary osteoarthritis, right wrist ICD-10: M19.031 [...] respiratory infection ICD-10: J44.0 ICD-9: 496 09/07/2016 Bilateral primary osteoarthritis of knee ICD-10: M17.0 ICD-9: 715.96 09/07/2016 Nicotine dependence, unspecified, uncomplicated ICD-10: F17.200 ICD-9: 305.1 09/07/2016 Dorsalgia, unspecified ICD-10: M54.9 ICD-9: 724.5 08/05/2016 Lumbago with sciatica, right side IC D-10: M54.41 ICD-9: 724.2 04/25/2016 Acute bronchitis, unspecified ICD-10 : J20.9 ICD-9: 466.0 08/31/2015 Chronic back pain ICD-9: 724.5 04/14/2015 Osteoarthritis, knee ICD-9: 715.96 04/14/2015 TOBACCO USE DISORDER ICD-9: 305.1 04/14/2015 HYPERLIPIDEMIA NEC/NOS ICD-9: 272.4 04/14/2015 COPD ICD-9: 496 11/11/19 ROUTINE MEDICAL EXAM ICD-9: V70.0 11/10/2014 Wrist pain ICD-9: 719.43 10/07/2014 Knee pain [...] For Visit Effective Dates Notes follow up 12/25/2018 Pat ient had 100% [...] Observation Code Item Item Code Result Date THYROID STIMULATING HORMONE 03712 TSH 2.685 uIU/mL 8 COMPLETE BLOOD COUNT 3844673 WBC 9.7 10e9/L 06/19/2018 COMPLETE BLOOD COUNT 4743895 RBC 5.35 10e12/L 8 COMPLETE BLOOD COUNT 7577103 HEMOGLOBIN 17.1 g/dL 06/19/2018 COMPLETE BLOOD COUNT 5533834 HEMATOCRIT 52.4 % 06/19/2018 COMPLETE BLOOD COUNT [id number] MCV 97.9 fL 06/19/2018 COMPLETE BLOOD COUNT 0646583 MCH 32.0 pg 06/19/2018 COMPLETE BLOOD COUNT 2281815 MCHC 32.6 g/dL 06/19/2018 COMPLETE BLOOD COUNT 3088251 PLATELET COUNT 257 10e9/L 06/19/2018 COMPLETE BLOOD COUNT 8735910 Mean Plt Volume 11.2 fL 06/19/2018 COMPLETE BLOOD COUNT 3919325 Neut Auto 54.6 % 06/19/2018 COMPLETE BLOOD COUNT 1234557 Lymph Auto 33.3 % 06/19/2018 COMPLETE BLOOD COUNT 7020584 Luce Auto 9.1 % 06/19/2018 COMPLETE BLOOD COUNT 0259894 RDW 14.4 % 06/19/2018 COMPLETE BLOOD COUNT 8584713 Eos Auto 2.6 % 06/19/2018 COMPLETE BLOOD COUNT 5994663 Baso Auto 0.4 % 06/19/2018 COMPLETE BLOOD COUNT 3100546 Neutrophil Abs 5.30 10e9/L 06/19/2018 COMPLETE BLOOD COUNT 2528067 Lymphocyte Abs 3.23 10e9/L 06/19/2018 COMPLETE BLOOD COUNT 5603671 Monocyte Abs 0.88 10e9/L 06/19/2018 COMPLETE BLOOD COUNT 4006832 Eosinophil Abs 0.25 10e9/L 06/19/2018 COMPLETE BLOOD COUNT 4666327 RDW-SD 51.8 fL 06/19/2018 COMPLETE BLOOD COUNT 2030266 Basophil Abs 0.04 10e9/L 06/19/2018 LIPID GROUP 19723 Choles terol 222 mg/dL 06/19/2018 LIPID GROUP 71690 Trigly ceride 111 mg/dL 06/19/2018 LIPID GROUP 42269 HDL CH OLESTEROL 37 mg/dL 06/19/2018 LIPID GROUP 08904 Chol/H DL Ratio 6.00 ratio 06/19/2018 LIPID GROUP 29326 NON-HD L Chol 185 mg/dL 06/19/2018 LIPID GROUP 86823 LDL Ch olesterol 163 mg/dL 06/19/2018 VITAMIN B 12 11476 VITAM IN B12 532 pg/mL 06/19/2018 COMPREHENSIVE METABOLIC 74864 AST 15 U/L 06/19/2018 COMPREHENSIVE METABOLIC 75955 ALT 21 U/L 06/19/2018 COMPREHENSIVE METABOLIC 78268 BUN 16 mg/dL 06/19/2018 COMPREHENSIVE METABOLIC 00092 ALBUMIN 4.1 g/dL 06/19/2018 COMPREHENSIVE METABOLIC 28542 CHLORIDE 99 mmol/L 06/19/2018 COMPREHENSIVE METABOLIC 64666 Bili Total 0.4 mg/dL 06/19/2018 COMPREHENSIVE METABOLIC 09680 ALK PHOS 43 U/L 06/19/2018 COMPREHENSIVE METABOLIC 45733 SODIUM 136 mmol/L 06/19/2018 COMPREHENSIVE METABOLIC 69285 CREATININE 0.82 mg/dL 06/19/2018 COMPREHENSIVE METABOLIC 17902 CALCIUM 9.5 mg/dL 06/19/2018 COMPREHENSIVE METABOLIC 98242 POTASSIUM 5.2 mmol/L 06/19/2018 COMPREHENSIVE METABOLIC 88051 Total Protein 6.7 g/dL 06/19/2018 COMPREHENSIVE METABOLIC 52054 Glucose 81 mg/dL 06/19/2018 COMPREHENSIVE METABOLIC 94753 Bicarbonate 30 mmol/L 06/19/2018 COMPREHENSIVE METABOLIC 98731 AGAP 7 mmol/L 06/19/2018 FREE T4 94650 T4 Free 0.85 ng/dL 06/19/2018 GFR CALC 2911273 GFR Non Afr Amr >60 mL/min 06/19/2018 GFR CALC 9509739 GFR Afr Amr >60 mL/min 06/19/2018 VITAMIN D TOTAL (25 HYDROXY) 52329 Vitamin D 25 OH 24.1 ng/mL 06/19/2018 PSA EQUIMOLAR TROY 80324 PSA Total 0.88 ng/mL 06/19/2018 GFR CALC 4690037 GFR Non Afr Amr >60 mL/min 09/09/2016 GFR CALC 0951194 GFR Afr Amr >60 mL/min 09/09/2016 THYROID STIMULATING HORMONE 80397 TSH 1.618 uIU/mL 7 FREE T4 40693 T4 Free 1.04 ng/dL 09/09/2016 COMPREHENSIVE METABOLIC 63182 AST 19 U/L 09/09/2016 COMPREHENSIVE METABOLIC 59901 ALT 25 U/L 09/09/2016 COMPREHENSIVE METABOLIC 28017 BUN 16 mg/dL 09/09/2016 COMPREHENSIVE METABOLIC 25916 ALBUMIN 4.8 g/dL 09/09/2016 COMPREHENSIVE METABOLIC 89918 CHLORIDE 100 mmol/L 09/09/2016 COMPREHENSIVE METABOLIC 24267 Bili Total 0.7 mg/dL 09/09/2016 COMPREHENSIVE METABOLIC 76331 ALK PHOS 50 U/L 09/09/2016 COMPREHENSIVE METABOLIC 42302 SODIUM 136 mmol/L 09/09/2016 COMPREHENSIVE METABOLIC 11946 CREATININE 0.98 mg/dL 09/09/2016 COMPREHENSIVE METABOLIC 36110 CALCIUM 9.8 mg/dL 09/09/2016 COMPREHENSIVE METABOLIC 15475 POTASSIUM 4.6 mmol/L 09/09/2016 COMPREHENSIVE METABOLIC 67001 Total Protein 7.5 g/dL 09/09/2016 COMPREHENSIVE METABOLIC 26049 Glucose 104 mg/dL 09/09/2016 COMPREHENSIVE METABOLIC 48590 Bicarbonate 27 mmol/L 09/09/2016 COMPREHENSIVE METABOLIC 87984 AGAP 9 mmol/L 09/09/2016 COMPLETE BLOOD COUNT 6601480 WBC 11.7 10e9/L 09/09/2016 COMPLETE BLOOD COUNT 7505387 RBC 5.54 10e12/L 7 COMPLETE BLOOD COUNT 8497018 HEMOGLOBIN 17.6 g/dL 09/09/2016 COMPLETE BLOOD COUNT 6597319 HEMATOCRIT 52.3 % 09/09/2016 COMPLETE BLOOD COUNT 5951489 MCV 94.4 fL 09/09/2016 COMPLETE BLOOD COUNT 8724060 MCH 31.8 pg 09/09/2016 COMPLETE BLOOD COUNT 2673620 MCHC 33.7 g/dL 09/09/2016 COMPLETE BLOOD COUNT 5823172 PLATELET COUNT 259 10e9/L 09/09/2016 COMPLETE BLOOD COUNT 7657579 Mean Plt Volume 11.2 fL 09/09/2016 COMPLETE BLOOD COUNT 9475271 Neut Auto 53.6 % 09/09/2016 COMPLETE BLOOD COUNT 6199246 Lymph Auto 36.2 % 09/09/2016 COMPLETE BLOOD COUNT 3011012 Luce Auto 7.9 % 09/09/2016 COMPLETE BLOOD COUNT 1462047 RDW 14.2 % 09/09/2016 COMPLETE BLOOD COUNT 6022598 Eos Auto 2.1 % 09/09/2016 COMPLETE BLOOD COUNT 1023243 Baso Auto 0.2 % 09/09/2016 COMPLETE BLOOD COUNT 0208939 Neutrophil Abs 6.27 10e9/L 09/09/2016 COMPLETE BLOOD COUNT 1234208 Lymphocyte Abs 4.24 10e9/L 09/09/2016 COMPLETE BLOOD COUNT 1232018 Monocyte Abs 0.92 10e9/L 09/09/2016 COMPLETE BLOOD COUNT 2823389 Eosinophil Abs 0.25 10e9/L 09/09/2016 COMPLETE BLOOD COUNT 7807072 Basophil Abs 0.02 10e9/L 09/09/2016 COMPLETE BLOOD COUNT 1257445 RDW-SD 48.1 fL 09/09/2016 LIPID GROUP 33393 Choles terol 251 mg/dL 09/09/2016 LIPID GROUP 59809 Trigly ceride 153 mg/dL 09/09/2016 LIPID GROUP 21220 HDL CH OLESTEROL 33 mg/dL 09/09/2016 LIPID GROUP 68427 Chol/H DL Ratio 7.61 ratio 09/09/2016 LIPID GROUP 20459 NON-HD L Chol 218 mg/dL 09/09/2016 LIPID GROUP 81146 LDL Ch olesterol 187 mg/dL 09/09/2016 LIPID GROUP [address] 39 MG/DL 09/15/2015 LIPID GROUP 82239 TRIG 106 MG/DL 09/15/2015 LIPID GROUP 16901 TEST L DL 152 MG/DL 09/15/2015 LIPID GROUP 32899 CHOL 212 MG/DL 09/15/2015 LIPID GROUP 10909 RCHOL/ HDL 5.44 RATIO 09/15/2015 LIPID GROUP 44332 NON-HD L CH 173 MG/DL 09/15/2015 GFR CALC 5181049 GFR AA >60 ML/MIN 09/15/2015 GFR CALC 7621205 GFR NON -AA >60 ML/MIN 09/15/2015 COMPREHENSIVE METABOLIC 15553 AST 18 U/L 09/15/2015 COMPREHENSIVE METABOLIC 26183 ALT 28 IU/L 09/15/2015 COMPREHENSIVE METABOLIC 57403 BUN 14 MG/DL 09/15/2015 COMPREHENSIVE METABOLIC 40574 ALBUMIN 4.2 GM/DL 09/15/2015 COMPREHENSIVE METABOLIC 53380 CHLORIDE 101 MMOL/L 09/15/2015 COMPREHENSIVE METABOLIC 77240 BILI TOT 0.6 MG/DL 09/15/2015 COMPREHENSIVE METABOLIC 99824 ALK PHOS 48 U/L 09/15/2015 COMPREHENSIVE METABOLIC 18428 SODIUM 135 MMOL/L 09/15/2015 COMPREHENSIVE METABOLIC 96568 CREATININE 0.91 MG/DL 09/15/2015 COMPREHENSIVE METABOLIC 95852 CALCIUM 9.2 MG/DL 09/15/2015 COMPREHENSIVE METABOLIC 91835 POTASSIUM 4.6 MMOL/L 09/15/2015 COMPREHENSIVE METABOLIC 04648 PROT TOT 6.6 GM/DL 09/15/2015 COMPREHENSIVE METABOLIC 66450 Glucose 97 MG/DL 09/15/2015 COMPREHENSIVE METABOLIC 20100 BICARB 27 MMOL/L 09/15/2015 COMPREHENSIVE METABOLIC 20391 ANION GAP 7 MEQ/L 09/15/2015 LIPID GROUP [address] 35 MG/DL 04/14/2015 LIPID GROUP 11908 TRIG 135 MG/DL 04/14/2015 LIPID GROUP 95569 TEST L DL 153 MG/DL 04/14/2015 LIPID GROUP 86021 CHOL 215 MG/DL 04/14/2015 LIPID GROUP 49668 RCHOL/ HDL 6.14 RATIO 04/14/2015 LIPID GROUP 03238 NON-HD L CH 180 MG/DL 04/14/2015 GFR CALC 4558910 GFR AA >60 ML/MIN 04/14/2015 GFR CALC 6005344 GFR NON -AA >60 ML/MIN 04/14/2015 COMPREHENSIVE METABOLIC 62431 AST 23 U/L 04/14/2015 COMPREHENSIVE METABOLIC 34757 ALT 27 IU/L 04/14/2015 COMPREHENSIVE METABOLIC 48392 BUN 15 MG/DL 04/14/2015 COMPREHENSIVE METABOLIC 04034 ALBUMIN 4.2 GM/DL 04/14/2015 COMPREHENSIVE METABOLIC 09141 CHLORIDE 103 MMOL/L 04/14/2015 COMPREHENSIVE METABOLIC 26256 BILI TOT 0.8 MG/DL 04/14/2015 COMPREHENSIVE METABOLIC 40142 ALK PHOS 50 U/L 04/14/2015 COMPREHENSIVE METABOLIC 89498 SODIUM 134 MMOL/L 04/14/2015 COMPREHENSIVE METABOLIC 49828 CREATININE 0.93 MG/DL 04/14/2015 COMPREHENSIVE METABOLIC 18955 CALCIUM 9.4 MG/DL 04/14/2015 COMPREHENSIVE METABOLIC 59111 POTASSIUM 4.4 MMOL/L 04/14/2015 COMPREHENSIVE METABOLIC 23552 PROT TOT 6.8 GM/DL 04/14/2015 COMPREHENSIVE METABOLIC 06959 Glucose 101 MG/DL 04/14/2015 COMPREHENSIVE METABOLIC 88181 BICARB 25 MMOL/L 04/14/2015 COMPREHENSIVE METABOLIC 64175 ANION GAP 6 MEQ/L 04/14/2015 PSA EQUIMOLAR TROY 06919 PSA EQ 1.04 NG/ML 11/10/2014 GFR CALC 7769060 GFR AA >60 ML/MIN 11/10/2014 GFR CALC 1894763 GFR NON -AA >60 ML/MIN 11/10/2014 LIPID GROUP [address] 31 MG/DL 11/10/2014 LIPID GROUP 27282 TRIG 133 MG/DL 11/10/2014 LIPID GROUP 14338 TEST L DL 74 MG/DL 11/10/2014 LIPID GROUP 75934 CHOL 132 MG/DL 11/10/2014 LIPID GROUP 35346 RCHOL/ HDL 4.26 RATIO 11/10/2014 LIPID GROUP 81481 NON-HD L CH 101 MG/DL 11/10/2014 COMPLETE BLOOD COUNT 2683425 WBC 10.2 10e9/L 11/10/2014 COMPLETE BLOOD COUNT 4902671 RBC 5.01 10e12/L 5 COMPLETE BLOOD COUNT 3411207 HGB 16.1 g/dL 11/10/2014 COMPLETE BLOOD COUNT 9958934 HCT DET 48.1 % 11/10/2014 COMPLETE BLOOD COUNT 1494791 MCV 96.0 fL 11/10/2014 COMPLETE BLOOD COUNT 1489947 MCH 32.1 pg 11/10/2014 COMPLETE BLOOD COUNT 2468151 MCHC 33.5 g/dL 11/10/2014 COMPLETE BLOOD COUNT 9138902 PLT 248 10e9/L 11/10/2014 COMPLETE BLOOD COUNT 5231500 MPV 11.4 fL 11/10/2014 COMPLETE BLOOD COUNT 9797984 GIUSEPPE % 51.2 % 11/10/2014 COMPLETE BLOOD COUNT 0679244 LY % 37.4 % 11/10/2014 COMPLETE BLOOD COUNT 2298385 MON % 9.2 % 11/10/2014 COMPLETE BLOOD COUNT 3459526 EOS % 2.0 % 11/10/2014 COMPLETE BLOOD COUNT 9427401 BASO % 0.2 % 11/10/2014 COMPLETE BLOOD COUNT 4259142 RDW 14.0 % 11/10/2014 COMPLETE BLOOD COUNT 1289819 ABS GIUSEPPE 5.22 10e9/L 11/10/2014 COMPLETE BLOOD COUNT 3211020 ABS LYMPH 3.81 10e9/L 11/10/2014 COMPLETE BLOOD COUNT 4034816 ABS MONO 0.94 10e9/L 11/10/2014 COMPLETE BLOOD COUNT 6265744 ABS EOS 0.20 10e9/L 11/10/2014 COMPLETE BLOOD COUNT 7603280 ABS BASO 0.02 10e9/L 11/10/2014 COMPLETE BLOOD COUNT 6659626 RDW-SD 47.8 fL 11/10/2014 THYROID STIMULATING HORMONE 79017 TSH 3.791 uIU/ML 5 FREE T4 55919 FREE T4 0.92 NG/DL 11/10/2014 COMPREHENSIVE METABOLIC 59073 AST 18 U/L 11/10/2014 COMPREHENSIVE METABOLIC 08328 ALT 25 IU/L 11/10/2014 COMPREHENSIVE METABOLIC 56165 BUN 16 MG/DL 11/10/2014 COMPREHENSIVE METABOLIC 81241 ALBUMIN 4.5 GM/DL 11/10/2014 COMPREHENSIVE METABOLIC 90664 CHLORIDE 103 MMOL/L 11/10/2014 COMPREHENSIVE METABOLIC 69286 BILI TOT 0.4 MG/DL 11/10/2014 COMPREHENSIVE METABOLIC 38919 ALK PHOS 53 U/L 11/10/2014 COMPREHENSIVE METABOLIC 32503 SODIUM 135 MMOL/L 11/10/2014 COMPREHENSIVE METABOLIC 67741 CREATININE 0.97 MG/DL 11/10/2014 COMPREHENSIVE METABOLIC 73574 CALCIUM 9.4 MG/DL 11/10/2014 COMPREHENSIVE METABOLIC 47587 POTASSIUM 4.4 MMOL/L 11/10/2014 COMPREHENSIVE METABOLIC 05946 PROT TOT 6.9 GM/DL 11/10/2014 COMPREHENSIVE METABOLIC 86109 Glucose 91 MG/DL 11/10/2014 COMPREHENSIVE METABOLIC 13052 BICARB 26 MMOL/L 11/10/2014 COMPREHENSIVE METABOLIC 35664 ANION GAP 6 MEQ/L 11/10/2014 LIPID GROUP [address] 35 MG/DL 04/29/2014 LIPID GROUP 12916 TRIG 123 MG/DL 04/29/2014 LIPID GROUP 23659 TEST L DL 117 MG/DL 04/29/2014 LIPID GROUP 85340 CHOL 177 MG/DL 04/29/2014 LIPID GROUP 41593 RCHOL/ HDL 5.06 RATIO 04/29/2014 LIPID GROUP 67318 NON-HD L CH 142 MG/DL 04/29/2014 COMPREHENSIVE METABOLIC 05357 AST 18 U/L 04/29/2014 COMPREHENSIVE METABOLIC 55754 ALT 29 IU/L 04/29/2014 COMPREHENSIVE METABOLIC 60725 BUN 19 MG/DL 04/29/2014 COMPREHENSIVE METABOLIC 01375 ALBUMIN 4.0 GM/DL 04/29/2014 COMPREHENSIVE METABOLIC 93184 CHLORIDE 106 MMOL/L 04/29/2014 COMPREHENSIVE METABOLIC 73155 BILI TOT 0.4 MG/DL 04/29/2014 COMPREHENSIVE METABOLIC 43123 ALK PHOS 51 U/L 04/29/2014 COMPREHENSIVE METABOLIC 72232 SODIUM 138 MMOL/L 04/29/2014 COMPREHENSIVE METABOLIC 64204 CREATININE 0.87 MG/DL 04/29/2014 COMPREHENSIVE METABOLIC 48676 CALCIUM 9.4 MG/DL 04/29/2014 COMPREHENSIVE METABOLIC 29112 POTASSIUM 4.5 MMOL/L 04/29/2014 COMPREHENSIVE METABOLIC 06664 PROT TOT 6.8 GM/DL 04/29/2014 COMPREHENSIVE METABOLIC 84477 Glucose 106 MG/DL 04/29/2014 COMPREHENSIVE METABOLIC 38391 BICARB 24 MMOL/L 04/29/2014 COMPREHENSIVE METABOLIC 99828 ANION GAP 8 MEQ/L 04/29/2014 GFR CALC 8171394 GFR AA >60 ML/MIN 04/29/2014 GFR CALC 2988002 GFR NON -AA >60 ML/MIN 04/29/2014 COMPREHENSIVE METABOLIC 52256 AST 38 U/L 12/18/2013 COMPREHENSIVE METABOLIC 68131 ALT 33 IU/L 12/18/2013 COMPREHENSIVE METABOLIC 16713 BUN 15 MG/DL 12/18/2013 COMPREHENSIVE METABOLIC 42854 ALBUMIN 4.2 GM/DL 12/18/2013 COMPREHENSIVE METABOLIC 77467 CHLORIDE 103 MMOL/L 12/18/2013 COMPREHENSIVE METABOLIC 27764 BILI TOT 0.6 MG/DL 12/18/2013 COMPREHENSIVE METABOLIC 05891 ALK PHOS 45 U/L 12/18/2013 COMPREHENSIVE METABOLIC 77676 SODIUM 136 MMOL/L 12/18/2013 COMPREHENSIVE METABOLIC 76768 CREATININE 0.97 MG/DL 12/18/2013 COMPREHENSIVE METABOLIC 57826 CALCIUM 9.2 MG/DL 12/18/2013 COMPREHENSIVE METABOLIC 83957 POTASSIUM 4.2 MMOL/L 12/18/2013 COMPREHENSIVE METABOLIC 20691 PROT TOT 7.0 GM/DL 12/18/2013 COMPREHENSIVE METABOLIC 88421 Glucose 120 MG/DL 12/18/2013 COMPREHENSIVE METABOLIC 24402 BICARB 24 MMOL/L 12/18/2013 COMPREHENSIVE METABOLIC 17464 ANION GAP 9 MEQ/L 12/18/2013 THYROID STIMULATING HORMONE 46727 TSH 1.305 uIU/ML 4 PSA EQUIMOLAR TROY 96453 PSA EQ 1.71 NG/ML 12/18/2013 GFR CALC 0306249 GFR AA >60 ML/MIN 12/18/2013 GFR CALC 1037605 GFR NON -AA >60 ML/MIN 12/18/2013 FREE T4 31454 FREE T4 1.07 NG/DL 12/18/2013 LIPID GROUP [address] 30 MG/DL 12/18/2013 LIPID GROUP 14986 TRIG 128 MG/DL 12/18/2013 LIPID GROUP 17905 TEST L DL 166 MG/DL 12/18/2013 LIPID GROUP 54710 CHOL 222 MG/DL 12/18/2013 LIPID GROUP 74303 RCHOL/ HDL 7.40 RATIO 12/18/2013 COMPLETE BLOOD COUNT 4925471 WBC 7.2 10e9/L 12/18/2013 COMPLETE BLOOD COUNT 9243337 RBC 4.89 10e12/L 4 COMPLETE BLOOD COUNT 0451554 HGB 15.5 g/dL 12/18/2013 COMPLETE BLOOD COUNT 3022925 HCT DET 46.6 % 12/18/2013 COMPLETE BLOOD COUNT 5446045 MCV 95.3 fL 12/18/2013 COMPLETE BLOOD COUNT 7738996 MCH 31.7 pg 12/18/2013 COMPLETE BLOOD COUNT 8906387 MCHC 33.3 g/dL 12/18/2013 COMPLETE BLOOD COUNT 1510812 PLT 246 10e9/L 12/18/2013 COMPLETE BLOOD COUNT 6548099 MPV 11.4 fL 12/18/2013 COMPLETE BLOOD COUNT 7425780 GIUSEPPE % 48.6 % 12/18/2013 COMPLETE BLOOD COUNT 1872383 LY % 37.4 % 12/18/2013 COMPLETE BLOOD COUNT 2911363 MON % 10.5 % 12/18/2013 COMPLETE BLOOD COUNT 4031696 EOS % 3.2 % 12/18/2013 COMPLETE BLOOD COUNT 6965383 BASO % 0.3 % 12/18/2013 COMPLETE BLOOD COUNT 2188250 RDW 13.6 % 12/18/2013 COMPLETE BLOOD COUNT 2124047 ABS GIUSEPPE 3.50 10e9/L 12/18/2013 COMPLETE BLOOD COUNT 0797218 ABS LYMPH 2.69 10e9/L 12/18/2013 COMPLETE BLOOD COUNT 2311259 ABS MONO 0.76 10e9/L 12/18/2013 COMPLETE BLOOD COUNT 5306179 ABS EOS 0.23 10e9/L 12/18/2013 COMPLETE BLOOD COUNT 3446346 ABS BASO 0.02 10e9/L 12/18/2013 COMPLETE BLOOD COUNT 6115229 RDW-SD 46.2 fL 12/18/2013 LIPID GROUP [address] 29 MG/DL 07/17/2012 LIPID GROUP 18637 TRIG 155 MG/DL 07/17/2012 LIPID GROUP 80208 TEST L DL 105 MG/DL 07/17/2012 LIPID GROUP 23810 CHOL 165 MG/DL 07/17/2012 LIPID GROUP 74921 RCHOL/ HDL 5.69 RATIO 07/17/2012 GFR CALC 7561770 GFR AA >60 ML/MIN 07/17/2012 GFR CALC 1190672 GFR NON -AA >60 ML/MIN 07/17/2012 COMPREHENSIVE METABOLIC 12808 AST 19 U/L 07/17/2012 COMPREHENSIVE METABOLIC 96361 ALT 25 IU/L 07/17/2012 COMPREHENSIVE METABOLIC 09760 BUN 14 MG/DL 07/17/2012 COMPREHENSIVE METABOLIC 09972 ALBUMIN 4.4 GM/DL 07/17/2012 COMPREHENSIVE METABOLIC 49193 CHLORIDE 103 MMOL/L 07/17/2012 COMPREHENSIVE METABOLIC 09272 BILI TOT 0.6 MG/DL 07/17/2012 COMPREHENSIVE METABOLIC 45420 ALK PHOS 53 U/L 07/17/2012 COMPREHENSIVE METABOLIC 44888 SODIUM 136 MMOL/L 07/17/2012 COMPREHENSIVE METABOLIC 22359 CREATININE 0.97 MG/DL 07/17/2012 COMPREHENSIVE METABOLIC 08869 CALCIUM 9.4 MG/DL 07/17/2012 COMPREHENSIVE METABOLIC 08536 POTASSIUM 4.3 MMOL/L 07/17/2012 COMPREHENSIVE METABOLIC 51928 PROT TOT 6.9 GM/DL 07/17/2012 COMPREHENSIVE METABOLIC 18157 Glucose 102 MG/DL 07/17/2012 COMPREHENSIVE METABOLIC 24767 BICARB 27 MMOL/L 07/17/2012 COMPREHENSIVE METABOLIC 68042 ANION GAP 6 MEQ/L 07/17/2012 GFR CALC 1787061 GFR AA >60 ML/MIN 03/20/2012 GFR CALC 8288869 GFR NON -AA >60 ML/MIN 03/20/2012 C-REACTIVE PROTEIN (CRP) QUANT 06978 CRP 0.9 MG/DL 03/20/2012 COMPREHENSIVE METABOLIC 48060 AST 16 U/L 03/20/2012 COMPREHENSIVE METABOLIC 28153 ALT 21 IU/L 03/20/2012 COMPREHENSIVE METABOLIC 91519 BUN 15 MG/DL 03/20/2012 COMPREHENSIVE METABOLIC 55842 ALBUMIN 4.3 GM/DL 03/20/2012 COMPREHENSIVE METABOLIC 82480 CHLORIDE 102 MMOL/L 03/20/2012 COMPREHENSIVE METABOLIC 75687 BILI TOT 0.5 MG/DL 03/20/2012 COMPREHENSIVE METABOLIC 54733 ALK PHOS 60 U/L 03/20/2012 COMPREHENSIVE METABOLIC 73862 SODIUM 135 MMOL/L 03/20/2012 COMPREHENSIVE METABOLIC 77312 CREATININE 0.94 MG/DL 03/20/2012 COMPREHENSIVE METABOLIC 50984 CALCIUM 9.0 MG/DL 03/20/2012 COMPREHENSIVE METABOLIC 75036 POTASSIUM 4.4 MMOL/L 03/20/2012 COMPREHENSIVE METABOLIC 29157 PROT TOT 6.7 GM/DL 03/20/2012 COMPREHENSIVE METABOLIC 15607 Glucose 96 MG/DL 03/20/2012 COMPREHENSIVE METABOLIC 01812 BICARB 25 MMOL/L 03/20/2012 COMPREHENSIVE METABOLIC 57096 ANION GAP 8 MEQ/L 03/20/2012 ERYTHROCYTE SEDIMENTATION RATE 68802 ESR 14 MM/HR 03/20/2012 LIPID GROUP [address] 31 MG/DL 03/20/2012 LIPID GROUP 05771 TRIG 210 MG/DL 03/20/2012 LIPID GROUP 85003 TEST L DL 164 MG/DL 03/20/2012 LIPID GROUP 35429 CHOL 237 MG/DL 03/20/2012 LIPID GROUP 26460 RCHOL/ HDL 7.65 RATIO 03/20/2012 COMPLETE BLOOD COUNT 60609 WBC 9.7 10e9/L 03/20/2012 COMPLETE BLOOD COUNT 40363 RBC 5.14 10e12/L 2 COMPLETE BLOOD COUNT 11820 HGB 15.5 g/dL 03/20/2012 COMPLETE BLOOD COUNT 31948 HCT DET 46.9 % 03/20/2012 COMPLETE BLOOD COUNT 76759 MCV 91.2 fL 03/20/2012 COMPLETE BLOOD COUNT 16144 MCH 30.2 pg 03/20/2012 COMPLETE BLOOD COUNT 33718 MCHC 33.0 g/dL 03/20/2012 COMPLETE BLOOD COUNT 68560 PLT 280 10e9/L 03/20/2012 COMPLETE BLOOD COUNT 53682 MPV 10.6 fL 03/20/2012 COMPLETE BLOOD COUNT 45286 GIUSEPPE % 61.5 % 03/20/2012 COMPLETE BLOOD COUNT 40357 LY % 26.5 % 03/20/2012 COMPLETE BLOOD COUNT 67553 MON % 8.8 % 03/20/2012 COMPLETE BLOOD COUNT 07167 EOS % 3.0 % 03/20/2012 COMPLETE BLOOD COUNT 34276 BASO % 0.2 % 03/20/2012 COMPLETE BLOOD COUNT 28837 RDW 15.3 % 03/20/2012 COMPLETE BLOOD COUNT 36098 ABS GIUSEPPE 5.97 10e9/L 03/20/2012 COMPLETE BLOOD COUNT 86004 ABS LYMPH 2.57 10e9/L 03/20/2012 COMPLETE BLOOD COUNT 65214 ABS MONO 0.85 10e9/L 03/20/2012 COMPLETE BLOOD COUNT 66676 ABS EOS 0.29 10e9/L 03/20/2012 COMPLETE BLOOD COUNT 93012 ABS BASO 0.02 10e9/L 03/20/2012 COMPLETE BLOOD COUNT 54622 RDW-SD 50.3 fL 03/20/[place] [address] PRO T HARRY 21.6 SEC 03/20/2012 PT [facility] 09597 INR M CMC 1.8 03/20/2012 Review of Systems System Result Effective Dates Cardiovascular No arrhythmia 12/25/2018 Cardiovascular No chest [...] Psychiatric No depression 09/07/2016 Endocrine No goiter 02/2017 Endocrine No hyperglycemia 09/07/2016 Endocrine No [...] COPD 013 Respiratory cough 2012 Respiratory dyspnea 05/01/2013 Respiratory dyspnea on exertion 12/04/2012 Respiratory chest [...] Procedures Procedure Codes Date ROUTINE VENIPUNCTURE CPT-4: 69481 06/19/2018 ASSAY OF FREE THYROXINE CPT-4: 16233 06/19/2018 ASSAY THYROID STIM H ORMONE CPT-4: 66374 06/19/2018 COMPREHEN METABOLIC PANEL CPT-4: 79797 06/19/2018 COMPLETE CBC W/AUTO DIFF WBC CPT-4: 91599 06/19/2018 LIPID PANEL CPT-4: 61425 06/19/2018 ASSAY OF PSA TOTAL CPT- 4: 95679 06/19/2018 VITAMIN D TOTAL (25 HYDROXY) CPT-4: 02887 06/19/2018 VITAMIN B-12 CPT-4: 58978 06/19/2018 DEXAMETHASONE SODIUM PHOS CPT-4: J1100 08/31/2017 TRIAMCINOLONE ACET I [place] NOS CPT-4: J3301 08/31/2017 DRAIN/INJECT JOINT/B URSA CPT-4: 46811 08/31/2017 ROUTINE VENIPUNCTURE CPT-4: 32928 08/01/2017 COMPREHEN METABOLIC PANEL CPT-4: 16612 08/01/2017 LIPID PANEL CPT-4: 71439 08/01/2017 DRAIN/INJECT JOINT/B URSA CPT-4: 45602 09/12/2016 TRIAMCINOLONE ACET I [place] NOS CPT-4: J3301 09/12/2016 DEXAMETHASONE SODIUM PHOS CPT-4: J1100 09/12/2016 ROUTINE VENIPUNCTURE CPT-4: 20565 09/09/2016 ASSAY OF FREE THYROXINE CPT-4: 95755 09/09/2016 ASSAY THYROID STIM H ORMONE CPT-4: 12447 09/09/2016 COMPREHEN METABOLIC PANEL CPT-4: 53088 09/09/2016 COMPLETE CBC W/AUTO DIFF WBC CPT-4: 71838 09/09/2016 LIPID PANEL CPT-4: 22270 09/09/2016 SPECIAL REPORTS OR F ORMS CPT-4: 94496 08/05/2016 ROUTINE VENIPUNCTURE CPT-4: 66181 09/15/2015 COMPREHEN METABOLIC PANEL CPT-4: 76812 09/15/2015 LIPID PANEL CPT-4: 46837 09/15/2015 PRESCRIP TRANSMIT A ERX SY CPT-4: G8553 08/31/2015 ROUTINE VENIPUNCTURE CPT-4: 63053 04/14/2015 COMPREHEN METABOLIC PANEL CPT-4: 70042 04/14/2015 LIPID PANEL CPT-4: 95388 04/14/2015 ROUTINE VENIPUNCTURE CPT-4: 50380 11/10/2014 ASSAY OF FREE THYROXINE CPT-4: 15285 11/10/2014 ASSAY THYROID STIM H ORMONE CPT-4: 95918 11/10/2014 COMPREHEN METABOLIC PANEL CPT-4: 09622 11/10/2014 COMPLETE CBC W/AUTO DIFF WBC CPT-4: 20394 11/10/2014 LIPID PANEL CPT-4: 27350 11/10/2014 ASSAY OF PSA TOTAL CPT- 4: 47465 11/10/2014 ROUTINE VENIPUNCTURE CPT-4: 58105 04/29/2014 COMPREHEN METABOLIC PANEL CPT-4: 43881 04/29/2014 LIPID PANEL CPT-4: 42428 04/29/2014 ROUTINE VENIPUNCTURE CPT-4: 77584 12/18/2013 ASSAY OF FREE THYROXINE CPT-4: 27127 12/18/2013 ASSAY THYROID STIM H ORMONE CPT-4: 81252 12/18/2013 COMPREHEN METABOLIC PANEL CPT-4: 86674 12/18/2013 COMPLETE CBC W/AUTO DIFF WBC CPT-4: 87877 12/18/2013 LIPID PANEL CPT-4: 95972 12/18/2013 ASSAY OF PSA TOTAL CPT- 4: 34183 12/18/2013 ROUTINE VENIPUNCTURE CPT-4: 86953 07/17/2012 COMPREHEN METABOLIC PANEL CPT-4: 13856 07/17/2012 LIPID PANEL CPT-4: 12821 07/17/2012 ROUTINE VENIPUNCTURE CPT-4: 67693 03/20/2012 COMPLETE CBC W/AUTO DIFF WBC CPT-4: 33405 03/20/2012 RBC SED RATE AUTOMATED CPT-4: 24700 03/20/2012 C-REACTIVE PROTEIN CPT- 4: 75251 03/20/2012 COMPREHEN METABOLIC PANEL CPT-4: 97654 03/20/2012 LIPID PANEL CPT-4: 81636 03/20/2012 PROTHROMBIN TIME CPT-4: 12594 03/20/2012 Vital Signs Date Vital 12/25/2018 Blood Pressure 1: 122/70 Code: 8480-6 Heart Rate 1: 68 bpm Respiratory Rate: 20 bpm SpO2: 95% Temperature: 37.0 (C ) / 98.6 (F) Weight: 235 lbs 08/22/2018 Blood Pressure 1: 132/86 Code: 8480-6 Heart Rate 1: 68 bpm Respiratory Rate: 20 bpm SpO2: 93% Temperature: 36.7 (C ) / 98.1 (F) 06/19/2018 Blood Pressure 1: 126/82 Code: 8480-6 BMI: 31.2 Code: 89989-9 Heart Rate 1: 84 bpm Height: 6'2" Respiratory Rate: 20 bpm SpO2: 94% Temperature: 37.0 (C ) / 98.6 (F) Weight: 243 lbs 03/02/2018 Blood Pressure 1: 122/80 Code: 8480-6 BMI: 30.8 Code: 78267-6 Heart Rate 1: 74 bpm Height: 6'2" Respiratory Rate: 20 bpm SpO2: 95% Temperature: 37.1 (C ) / 98.8 (F) Weight: 240 lbs 08/31/2017 Blood Pressure 1: 136/90 Code: 8480-6 Heart Rate 1: 76 bpm Respiratory Rate: 20 bpm Temperature: 36.7 (C) / 98.0 (F) Weight: 247 lbs 07/18/2017 Blood Pressure 1: 126/78 Code: 8480-6 BMI: 31.3 Code: 20859-2 Heart Rate 1: 72 bpm Height: 6'2" Respiratory Rate: 20 bpm SpO2: 94% Temperature: 37.0 (C ) / 98.6 (F) Weight: 244 lbs 04/24/2017 Blood Pressure 1: 152/92 Code: 8480-6 BMI: 31.1 Code: 62203-1 Heart Rate 1: 74 bpm Height: 6'2" Respiratory Rate: 18 bpm SpO2: 98% Temperature: 35.9 (C ) / 96.6 (F) Weight: 242 lbs 01/04/2017 Blood Pressure 1: 122/70 Code: 8480-6 BMI: 30.4 Code: 77353-3 Heart Rate 1: 88 bpm Height: 6'2" Respiratory Rate: 20 bpm SpO2: 96% Temperature: 36.6 (C ) / 97.8 (F) Weight: 237 lbs 09/12/2016 Blood Pressure 1: 136/78 Code: 8480-6 Heart Rate 1: 82 bpm Respiratory Rate: 22 bpm SpO2: 94% Temperature: 36.4 (C ) / 97.6 (F) Weight: 234 lbs 09/07/2016 Blood Pressure 1: 122/70 Code: 8480-6 BMI: 30.0 Code: 47381-6 Heart Rate 1: 88 bpm Height: 6'2" Respiratory Rate: 20 bpm SpO2: 94% Temperature: 36.6 (C ) / 97.9 (F) Weight: 234 lbs 08/31/2015 Blood Pressure 1: 142/94 Code: 8480-6 BMI: 28.9 Code: 78666-4 Heart Rate 1: 92 bpm Height: 6'2" Respiratory Rate: 20 bpm Temperature: 36.9 (C ) / 98.5 (F) Weight: 225 lbs 04/14/2015 Blood Pressure 1: 126/80 Code: 8480-6 BMI: 28.0 Code: 17597-8 Heart Rate 1: 76 bpm Height: 6'2" Respiratory Rate: 20 bpm Temperature: 36.6 (C ) / 97.8 (F) Weight: 218 lbs 10/07/2014 Blood Pressure 1: 128/76 Code: 8480-6 BMI: 28.6 Code: 45350-0 Heart Rate 1: 84 bpm Height: 6'2" Respiratory Rate: 22 bpm Temperature: 36.6 (C ) / 97.9 (F) Weight: 223 lbs 05/01/2014 Blood Pressure 1: 126/68 Code: 8480-6 BMI: 28.2 Code: 02060-3 Heart Rate 1: 84 bpm Height: 6'2" Respiratory Rate: 20 bpm Temperature: 36.8 (C ) / 98.3 (F) Weight: 220 lbs 12/17/2013 Blood Pressure 1: 136/82 Code: 8480-6 BMI: 29.6 Code: 35821-2 Heart Rate 1: 76 bpm Height: 6'1" Respiratory Rate: 20 bpm Temperature: 36.8 (C ) / 98.2 (F) Weight: 224 lbs 12/11/2012 Blood Pressure 1: 122/86 Code: 8480-6 BMI: 30.5 Code: 63329-1 Heart Rate 1: 76 bpm Height: 6'1" Respiratory Rate: 20 bpm SpO2: 93% Temperature: 36.8 (C ) / 98.2 (F) Weight: 231 lbs 12/04/2012 Blood Pressure 1: 124/86 Code: 8480-6 BMI: 30.5 Code: 57664-3 Heart Rate 1: 68 bpm Height: 6'1" Respiratory Rate: 20 bpm SpO2: 95% Temperature: 36.6 (C ) / 97.8 (F) Weight: 231 lbs 08/14/2012 Blood Pressure 1: 126/70 Code: 8480-6 BMI: 29.4 Code: 57671-8 Heart Rate 1: 80 bpm Height: 6'1" Respiratory Rate: 20 bpm Temperature: 36.8 (C ) / 98.3 (F) Weight: 223 lbs 07/17/2012 Blood Pressure 1: 124/82 Code: 8480-6 BMI: 29.7 Code: 63871-0 Heart Rate 1: 80 bpm Height: 6'1" Respiratory Rate: 20 bpm Temperature: 36.8 (C ) / 98.2 (F) Weight: 225 lbs 03/20/2012 Blood Pressure 1: 124/78 Code: 8480-6 BMI: 29.3 Code: 39127-7 Heart Rate 1: 72 bpm Height: 6'1" Respiratory Rate: 20 bpm Temperature: 36.6 (C ) / 97.8 (F) Weight: 222 lbs 12/08/2011 Blood Pressure 1: 112/64 Code: 8480-6 BMI: 28.2 Code: 91449-2 Heart Rate 1: 78 bpm Height: 6'1" Temperature: 36.3 (C ) / 97.4 (F) Weight: 214 lbs 08/11/2011 Blood Pressure 1: 128/70 Code: 8480-6 BMI: 27.6 Code: 93656-1 Heart Rate 1: 76 bpm Height: 6'1" Respiratory Rate: 20 bpm Temperature: 36.9 (C ) / 98.4 (F) Weight: 209 lbs 05/26/2010 Blood Pressure 1: 116/78 Code: 8480-6 Heart Rate 1: 80 bpm Temperature: 36.7 (C) / 98.0 (F) Weight: 224 lbs Functional Status No Functional Status data History of Present Illness Symptom Name Status Resu lt Effective Date Notes Location diffusely 12/25/2018 None Quality chronic 12/25/2018 [...] hronic 04/14/2015 Stopped lipitor about 1 w [place] ago and is going try OTC krill [...] 08/14/2012 Wellbutrin helping cough Location in the ng 08/14/2012 None cough Quality improving 08/14/2012 [...] was hit by 80-100lb door when at [place] getting US done venous thrombosis Quality acute [...] cic spine 08/11/2011 None 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 back pain Location diffu sely 05/26/2010 None knee pain Quality chronic 05/26/2010 were on hydrocodone and just started oxy contin but thinks hydrocodone worked better hyperlipidemia Quality s table 05/26/2010 None Advance Directives No Advance Directive data Encounters Encounter Performer Loca tion Codes Date ([id number]) OFFICE/OUTPA TIENT VISIT EST Diagnosis: Mixed hyperlipidemia[ICD10: E78.2] Diagnosis: 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] Diagnosis: Other intervertebral disc degeneration, 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] Martita SIMONS [employer] CPT-4: 01703 12/25/2018 ([id number]) OFFICE/OUTPA TIENT VISIT EST Diagnosis: Mixed hyperlipidemia[ICD10: E78.2] Diagnosis: Other fatigue[ICD10: R53.83] Diagnosis: Encounter for screening for malignant neoplasm of prostate[ICD10: Z12.5] Diagnosis: Primary osteoarthritis, 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] Diagnosis: Pain in thoracic spine[ICD10: M54.6] Martita YOUNG [employer] CPT-4: 55639 06/19/2018 ([id number]) OFFICE/OUTPA TIENT VISIT EST Diagnosis: Encounter for therapeutic drug level monitoring[ICD10: Z51.81] Diagnosis: Pain in 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: M25.531] Diagnosis: Pain in right knee[ICD10: M25.561] Diagnosis: Pain in left knee[ICD10: M25.562] Marian Blanquitabreanna CUENCA [employer] CPT-4: 14779 03/02/2018 ([id number]) OFFICE/OUTPA TIENT VISIT EST Diagnosis: Mixed hyperlipidemia[ICD10: E78.2] Martita TIJERINAR [facility] CPT-4: 78127 08/01/2017 ([id number]) OFFICE/OUTPA TIENT VISIT EST Diagnosis: Other spondylosis with radiculopathy, cervical region[ICD10: M47.22] Diagnosis: Pain in 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: M25.531] Diagnosis: Mixed hyperlipidemia[ICD10: E78.2] Diagnosis: 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] Martita SIMONS DO [facility] CPT-4: 63295 07/18/2017 ([id number]) OFFICE/OUTPA TIENT VISIT EST Diagnosis: Other intervertebral disc degeneration, 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] Diagnosis: Cervicalgia[ICD10: M54.2] Martita SIMONS DO [facility] CPT-4: 28516 04/24/2017 ([id number]) OFFICE/OUTPA TIENT VISIT EST Diagnosis: Cervicalgia[ICD10: M54.2] Diagnosis: Other intervertebral disc degeneration, 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] Diagnosis: Mixed hyperlipidemia[ICD10: E78.2] Martita YOUNG [employer] [facility] CPT-4: 84434 01/04/2017 ([id number]) OFFICE/OUTPA TIENT VISIT EST Diagnosis: Mixed hyperlipidemia[ICD10: E78.2] Diagnosis: Encounter for general adult medical examination with abnormal findings[ICD10: Z00.01] Martita SIMONS [employer] [facility] CPT-4: 99880 09/09/2016 ([id number]) PREV VISIT E ST AGE 40-64 Diagnosis: Mixed hyperlipidemia[ICD10: E78.2] Diagnosis: Nicotine dependence, unspecified, uncomplicated[ICD10: F17.200] Diagnosis: Chronic obstructive pulmonary disease with acute lower respiratory infection[ICD10: J44.0] Diagnosis: Bilateral primary osteoarthritis of knee[ICD10: M17.0] Diagnosis: Pain in thoracic spine[ICD10: M54.6] Diagnosis: Pain in 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: M25.531] Diagnosis: Encounter for general adult medical examination with abnormal findings[ICD10: Z00.01] Martita SIMONS DO [facility] CPT-4: 61298 09/07/2016 ([id number]) OFFICE/OUTPA TIENT VISIT EST Diagnosis: Mixed hyperlipidemia[ICD10: E78.2] Martita YOUNG [facility] CPT-4: 90463 09/15/2015 ([id number]) OFFICE/OUTPA TIENT VISIT EST Diagnosis: Acute bronchitis, unspecified[ICD10: J20.9] Diagnosis: Chronic obstructive pulmonary disease with acute lower respiratory infection[ICD10: J44.0] Diagnosis: Lumbago with sciatica, right side[ICD10: M54.41] Martita YOUNG DO [facility] CPT-4: 97094 08/31/2015 ([id number]) OFFICE/OUTPA TIENT VISIT EST Diagnosis: HYPERLIPIDEMIA NEC/NOS[ICD9: 272.4] Diagnosis: TOBACCO USE DISORDER[ICD9: 305.1] Diagnosis: Osteoarthritis, knee[ICD9: 715.96] Diagnosis: Chronic back pain[ICD9: 724.5] Martita SIMONS DO [facility] CPT-4: 86673 04/14/2015 ([id number]) OFFICE/OUTPA TIENT VISIT EST Diagnosis: HYPERLIPIDEMIA NEC/NOS[ICD9: 272.4] Diagnosis: COPD[ICD9: 496] Diagnosis: ROUTINE MEDICAL EXAM[ICD9: V70.0] Martita YOUNG [facility] CPT-4: 63282 11/10/2014 ([id number]) OFFICE/OUTPA TIENT VISIT EST Diagnosis: Wrist pain[ICD9: 719.43] Diagnosis: Knee osteoarthritis[ICD9: 715.96] Diagnosis: Chronic back pain[ICD9: 724.5] Martita SIMONS DO [facility] CPT-4: 51923 10/07/2014 ([id number]) OFFICE/OUTPA TIENT VISIT EST Diagnosis: HYPERLIPIDEMIA NEC/NOS[ICD9: 272.4] Diagnosis: Chronic back pain[ICD9: 724.5] Diagnosis: OSTEOARTH NOS-L/LEG[ICD9: 715.96] Martita YOUNG [facility] CPT-4: 17481 05/01/2014 ([id number]) OFFICE/OUTPA TIENT VISIT EST Diagnosis: HYPERLIPIDEMIA NEC/NOS[ICD9: 272.4] Martita YOUNG [facility] CPT-4: 62061 04/29/2014 ([id number]) OFFICE/OUTPA TIENT VISIT EST Diagnosis: ROUTINE MEDICAL EXAM[ICD9: V70.0] Diagnosis: HYPERLIPIDEMIA NEC/NOS[ICD9: 272.4] Martita YOUNG [facility] CPT-4: 72567 12/18/2013 OFFICE/OUTPATIENT SIT EST Diagnosis: HYPERLIPIDEMIA NEC/NOS[ICD9: 272.4] Diagnosis: COPD[ICD9: 496] Diagnosis: Knee pain[ICD9: 719.46] Diagnosis: Wrist pain[ICD9: 719.43] Martita SIMONS [facility] CPT-4: 11701 12/17/2013 OFFICE/OUTPATIENT SIT EST Diagnosis: COPD W/ ACUTE EXACERB[ICD9: 491.21] Diagnosis: COUGH[ICD9: 786.2] Martita SIMONS [facility] CPT-4: 46315 12/11/2012 ([id number]) OFFICE/OUTPA TIENT VISIT EST Diagnosis: BRONCHITIS, ACUTE[ICD9: 466.0] Diagnosis: COPD exacerbation[ICD9: 491.21] Martita SIMONS [facility] CPT-4: 07556 12/04/2012 ([id number]) OFFICE/OUTPA TIENT VISIT EST Diagnosis: DERMATITIS NOS[ICD9: 692.9] Diagnosis: TOBACCO USE DISORDER[ICD9: 305.1] Martita YOUNG [facility] CPT-4: 99208 08/14/2012 ([id number]) OFFICE/OUTPA TIENT VISIT EST Diagnosis: TOBACCO USE DISORDER[ICD9: 305.1] Diagnosis: PAIN, LOWER BACK[ICD9: 724.2] Diagnosis: PAIN IN THORACIC SPINE[ICD9: 724.1] Diagnosis: DERMATITIS NOS[ICD9: 692.9] Diagnosis: HYPERLIPIDEMIA NEC/NOS[ICD9: 272.4] Martita Kristyn VALDEZ NDER [facility] [employer] CPT-4: 97668 07/17/2012 ([id number]) OFFICE/OUTPA TIENT VISIT EST Diagnosis: HYPERLIPIDEMIA NEC/NOS[ICD9: 272.4] Diagnosis: OSTEOARTH NOS-L/LEG[ICD9: 715.96] Diagnosis: JOINT PAIN-L/LEG[ICD9: 719.46] Diagnosis: AC EMBL SUPRFCL UP EXT[ICD9: 453.81] Martita Valdezfelix VALDEZ NDER [facility] [employer] CPT-4: 28906 03/20/2012 ([id number]) OFFICE/OUTPA TIENT VISIT EST Diagnosis: PAIN, LOWER BACK[ICD9: 724.2] Diagnosis: Superficial venous thrombosis of arm[ICD9: 453.81] Diagnosis: Trigger finger, left[ICD9: 727.03] Martita José Migueljessieodilon VALDEZ NDER [employer] CPT-4: 78426 12/08/2011 OFFICE/OUTPATIENT SIT EST Diagnosis: Knee pain[ICD9: 719.46] Diagnosis: Knee osteoarthritis[ICD9: 715.96] Diagnosis: Thoracic back pain[ICD9: 724.1] Diagnosis: HYPERLIPIDEMIA NEC/NOS[ICD9: 272.4] Martita Givensodilon VALDEZ NDER [employer] CPT-4: 59036 08/11/2011 ([id number]) OFFICE/OUTPA TIENT VISIT, NEW Martita José Migueljessieodilon TIJERINAR [employer] CPT-4: 95883 05/26/2010 Plan of Care Planned Activity Notes C odes Status Date Visit Diagnosis Plan: Other intervertebr al disc degeneration, lumbar region Discussion: Stable on hydrocodone UDS do ne Follow Up: 3 months ICD-9 : 722.52 ICD-10 : M51.36 12/25/2018 Visit Diagnosis Plan: Atherosclerotic he art disease of [place] coronary artery without angina pectoris Discussion: Smoking Cessation Continue current meds and fwup with cardiology ICD-9 : 414.00 ICD-10 : I25.10 12/25/2018 Appointment: Martita Simons WPtel: [phone] MEDICATION REVIEW 12/25/2018 Appointment: Martita Simons WPtel: [address] [place] [address] OFFICE SURGERY 08/22/2018 Visit Diagnosis Plan: Pain [...] : R53.83 06/19/2018 Appointment: Martita Simons WPtel: [address] [place] [address] MEDICATION REVIEW 06/19/2018 Appointment: Martita Simons WPtel: [address] [place] [address] US CANCELED 06/05/2018 Appointment: Martita Simons WPtel: [address] [place] [address] [place] CANCELED 05/08/2018 Visit Diagnosis Plan: Pain [...] ICD-10 : M25.561 03/02/2018 Appointment: Marian Juares [address] [place] [address] MEDICATION REVIEW 03/02/2018 Patient Education: Patient Medication Summary Completed 03/02/2018 Appointment: Martita Simons WPtel: [address] [place] [address] 02/01/2018 Patient Education: Patient Medication Summary Completed 02/01/2018 Visit Diagnosis Plan: Other synovitis an d tenosynovitis, right hand Discussion: Right wrist cleansed with al cohol and betadine and injected laterally with 1cc 1% lidocaine with 20mg kenalog and 2mg dexamethasone, tolerated well with no complications, neosporin and bandage applied ICD-9 : 727.05 ICD-10 : M65.841 08/31/2017 Appointment: Martita Simons WPtel: [address] [place] [address] ACUTE ILLNESS 08/31/2017 Patient Education: Patient Medication Summary Completed 08/31/2017 Appointment: Martita Simons WPtel: [address] [place] [address] LAB 08/01/2017 Patient Education: Patient Medication Summary [...] D17.1 07/18/2017 Appointment: Martita Simons [facility]Pt[facility] [phone] [facility] [place] [place] MEDICATION REVIEW 07/18/2017 Patient Education: Patient Medication Summary Completed 07/18/2017 Visit Diagnosis Plan: Other intervertebr al disc degeneration, lumbar region Discussion: Add PT For lumbar spine ICD-9 : 722.52 ICD-10 : M51.36 04/24/2017 Visit Diagnosis Plan: Cervicalgia Di scussion: Continue PT then fwup after done with PT ICD-9 : 723.1 ICD-10 : M54.2 04/24/2017 Appointment: Martita Simons WPtel: [phone] [facility] [place] MEDICATION REVIEW 04/24/2017 Patient Education: Patient Medication Summary Completed 04/24/2017 Patient Education: Patient Medication Summary Completed 03/22/2017 Care Plan: MRI NECK SPINE W/O DYE LOINC : 01599-5 Pending 03/22/2017 Visit Diagnosis Plan: Other intervertebr [...] : E78.2 01/04/2017 Appointment: Martita Simons WPtel[facility] [phone] [facility] [place] [place] 01/03 lm` 01/03-Confirmed MEDICATI ON REVIEW 01/04/2017 Patient Education: Patient Medication Summary Completed 01/04/2017 Visit Diagnosis Plan: Mixed hyperlipidemia Discussion: Lab discussed Restart lipitor/lifestyle change ICD-9 : 272.4 ICD-10 : E78.2 09/12/2016 Visit Diagnosis Plan: Other enthesopathi es, not elsewhere classified Discussion: Right wrist injection as abo ve ICD-9 : 727.05 ICD-10 : M77.8 09/12/2016 Appointment: Martita Simons WPtel: [address] [place], [place] [phone] 09/12 confirmed `sl INJECTION 09/12/2016 Patient Education: Patient Medication Summary Completed 09/12/2016 Appointment: Martita Simons WPtel: [address] [place], [place] [id number] LAB 09/09/2016 Patient Education: Patient Medication Summary Completed 09/09/2016 Visit Diagnosis Plan: Nicotine dependenc e, unspecified, uncomplicated Discussion: Tobacco Abuse ICD-9 : 305.1 ICD-10 : F17.200 09/07/2016 Visit Diagnosis Plan: Chronic obstructiv e pulmonary disease with acute lower respiratory infection Discussion: Smoking Cessation Symbicort Check CXR ICD-9 : 496 ICD-10 : J44.0 09/07/2016 Visit Diagnosis Plan: Encounter for [facility] adult medical examination with abnormal findings Discussion: Update fasting lab Follow Up: 4 months ICD-9 : V70.0 ICD-10 : Z00.01 09/07/2016 Visit Diagnosis Plan: Pain in right wrist Discussion: Will return for wrist injection ICD-9 : 719.43 ICD-10 : M25.531 09/07/2016 Visit Diagnosis Plan: Mixed hyperlipidemia Discussion: Check CMP, Lipids ICD-9 : 272.4 ICD-10 : E78.2 09/07/2016 Appointment: Martita Simons WPtel: [address] [place], [place] [id number] 09/06 confirmed~sl Annual Well Visit 09/07/2016 Patient Education: Patient Medication Summary Completed 09/07/2016 Care Plan: CHEST X-RAY 2VW FRONTAL&LATL LOINC : 06486-8 Pending 09/07/2016 Visit Plan: Filled out [employer] 08/05/2016 Patient Education: Patient Medication Summary Completed 08/05/2016 Appointment: Martita Simons WPtel: [address] [place], [place] [id number] [facility] 04/25/2016 Patient Education: Patient Medication Summary Completed 04/25/2016 Appointment: Martita Simons WPtel: [address] [place], [place] [phone] [facility] 09/15/2015 Patient Education: Patient Medication Summary Completed [...] [employer] 08/31/2015 Appointment: Martita Simons WPtel: [address] [place] [phone] 08/28/15 [facility] 08/28/15 appt confirmed c n FOLLOW UP 08/31/2015 Patient Education: Patient Medication Summary Completed 08/31/2015 Appointment: Martita Simons WPtel: [address] [place], [place] [phone] [facility] 07/29/2015 Visit Plan: CMP, Lipids today Patie nt stopped chol meds 1week ago Continue hydrocodone 04/14/2015 Visit Plan: CMP, Lipids today Patie nt stopped chol meds 1week ago Continue hydrocodone 04/14/2015 Appointment: Martita Simons WPtel: [address] [place], [place] [phone] FOLLOW UP 04/14/2015 Patient Education: Patient Medication Summary Completed 04/14/2015 Appointment: Martita Simons WPtel: [address] [place], [place] [id number] LAB 11/10/2014 Patient Education: Patient Medication Summary Completed 11/10/2014 Visit Plan: Fasting lab at end of M arch for Lipids/LFTs Continue hydrocodone at current dose Needs to be on low dose asprin 81mg daily With upcoming trip need to stop every 2hours and get out and stretch 10/07/2014 Appointment: Martita Simons WPtel: [address] [place], [place] [phone] FOLLOW UP 10/07/2014 Patient Education: Patient Medication Summary Completed 10/07/2014 Visit Plan: Lab discussed Will keep meds the same Keep hydrocodone at current dose--discussed schedule change on May 05 05/01/2014 Appointment: Martita Simons WPtel: [address] [place], [place] [phone] 04/29 confirmed when in for labs; asked if he still wanted a reminder call on Monday and he said no he would be here. FOLLOW UP 05/01/2014 Patient Education: Patient Medication Summary Completed 05/01/2014 Appointment: Martita Simons WPtel: [address] [place], [place] [id number] LAB 04/29/2014 Patient Education: Patient Medication Summary Completed 04/29/2014 Appointment: Martita Simons WPtel: [address] [place], [place] [id number] LAB 12/18/2013 Patient Education: Patient Medication Summary Completed 12/18/2013 Visit Plan: Check fasting lab in AM --CMP, Lipids, CBC, TSH, Free T4, PSA Pt has stopped smoking since July See hand specialist about wrist 12/17/2013 Appointment: Martita Simons WPtel: [address] [place], [place] [phone] 12/16 FOLLOW UP 12/17/2013 Patient Education: Patient Medication Summary Completed 12/17/2013 Visit Plan: Check CXR Start SVNs wi th albuterol 0.083% QID 12/11/2012 Appointment: Martita Simons WPtel: [address] [place], [place] [phone] FOLLOW UP 12/11/2012 Patient Education: Patient Medication Summary Completed 12/11/2012 Visit Plan: Zithromax for 1wk Predn isone for 1wk Symbicort 160/4.5 2p BID 12/04/2012 Appointment: Martita Simons WPtel: [address] [place], [place] [phone] ACUTE ILLNESS 12/04/2012 Patient Education: Patient Medication Summary Completed 12/04/2012 Visit Plan: Continue nystatin/TAC c ream and add Lamisil for next month No lipitor for next month If rash persists then will need biopsy Trial of chantix--warned of suicidal ideation/depression Call in 1mo on finger lesion and chantix 08/14/2012 Appointment: Martita Simons WPtel: [address] [place], [place] [phone] 08/13 no answer...08/13 pt called back a nd confirmed OFFICE SURGERY 013 Patient Education: Patient Medication Summary Completed 08/14/2012 Visit Plan: Smoking cessation Trial of Wellbutrin Nystatin TAC to finger lesion for 2-4 wks Check CMP, Lipids 07/17/2012 Appointment: Martita Simons WPtel: [address] [place], [place] [phone] FOLLOW UP 07/17/2012 Patient Education: Patient Medication Summary Completed 07/17/2012 Appointment: Martita Simons WPtel: [address] [place], [place] [phone] [place] Appointment was confirmed by CN on 06/29 12/ pt called, in family, was in [place] just got back 07/03 - [facility] ACUTE ILLNESS 07/02/20 12 Visit Plan: Obtain US results of RU E DC coumadin as has been 3mos and start Aspirin 325mg daily Check CMP, Lipids, CBC, ESR, CRP today 03/20/2012 Appointment: Martita Simons WPtel: [address] [place] [address] FOLLOW UP 03/20/2012 Patient Education: Patient Medication Summary Completed 03/20/2012 Appointment: Martita Simons WPtel: [address] [place] [address] Patient called 2 hours past appt. Said saw a specialist today and specialist is not concerned about blod clot so doesnt want to reschedule-CN FOLLOW UP 12/14/2011 Appointment: Martita Simons WPtel: [address] [place] [address] FOLLOW UP 12/13/2011 Visit Plan: Continue coumadin--IM i s following level--discussed will likely need 6-12wks Observe contusion to right lower back Fwup with ortho as scheduled 12/08/2011 Appointment: Martita Simons WPtel: [address] [place] [address] ACUTE ILLNESS 12/08/2011 Patient Education: Patient Medication Summary Completed 12/08/2011 Visit Plan: Check fasting lab when goes for pre-op lab including CMP, CBC, Lipids, TSH, Free T4, PSA, uric acid Needs colonoscopy Hydrocodone refilled #80 to [facility] 08/11/2011 Appointment: Martita Simons WPtel: [address] [place] [address] ESTABLISHED PATIENT 08/11/2011 Patient Education: Patient Medication Summary Completed 08/11/2011 Visit Plan: Obtain most recent lab results Cont current meds Explained that cannot refill pain meds without current rx Discussed Synvisc injections and see ortho as oxycontin for knee arthritis is strong pain med 05/26/2010 Appointment: Martita Simonstel: [address] [place] [address] NEW PATIENT 05/26/2010 Patient Education: Patient Medication Summary Completed 05/26/2010 Instructions Comment . Continue coumadin- -IM is following level--discussed will likely need 6-12wks Observe contusion to right lower back Fwup with ortho as scheduled . Filled out [employer] . Obtain most recent lab results Cont current meds Explained that cannot refill pain meds without current rx Discussed Synvisc injections and see ortho as oxycontin for knee arthritis is strong pain med . Fasting lab at end of September for Lipids/LFTs Continue hydrocodone at current dose Needs to be on low dose asprin 81mg daily With upcoming trip need to stop every 2hours and get out and stretch . Check fasting lab when goes for pre-op lab including CMP, CBC, Lipids, TSH, Free T4, PSA, uric acid Needs colonoscopy Hydrocodone refilled #80 to [facility] . Obtain US results of KELVIN PINEDA coumadin as has been 3mos and start Aspirin 325mg daily Check CMP, Lipids, CBC, ESR, CRP today . Continue nystatin/ TAC cream and add Lamisil for next month No lipitor for next month If rash persists then will need biopsy Trial of chantix--warned of suicidal ideation/depression Call in 1mo on finger lesion and chantix . Lab discussed Will keep meds the same Keep hydrocodone at current dose--discussed schedule change on May 05 . CMP, Lipids today Patient stopped chol [...]
--- OUTSIDE RECORDS SUMMARY | 2020-01-12 17:50 | XMS REPORT | Continuity of Care Document ---
Author Organization Unknown Address Unknown Phone Unavailable Allergies Active Description Code Type Severity Reaction Onset Reported/Identified Relationship to Patient Clinical Status Yes No Known Drug Allergies [id number] Drug Allergy Unknown N/A 05/22/2007 Medications There is no data. Problems Date Dx Coded Attending Type Code Diagnosis Diagnosed By 07/25/2018 FROILAN SIMONS DO S Ot D72.829 ELEVATED WHITE BLOOD CELL COUNT, UNSPECI 07/25/2018 FROILAN SIMONS DO S Ot F17.290 NICOTINE DEPENDENCE, OTHER TOBACCO PRODU 07/25/2018 FORILAN SIMONS DO S Ot G89.29 OTHER CHRONIC PAIN 07/25/2018 ALEM SIMONS DOLINE S Ot K56.690 OTHER PARTIAL INTESTINAL OBSTRUCTION 07/25/2018 ALEM SIMONS DOLINE S Ot K56.699 OTHER INTESTNL OBST UNSP TO PARTIAL V 07/25/2018 ALEM SIMONS DOLINE S Ot M25.531 PAIN IN RIGHT WRIST 07/25/2018 ALEM SIMONS DOLINE S Ot R51 HEADACHE 07/25/2018 ALEM SIMONS DOLINE S Ot 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 07/25/2018 ALEM SIMONS DOLINE S Ot Z87.19 PERSONAL HISTORY OF OTHER DISEASES OF TH 07/25/2018 ALEM SIMONS DOLINE S Ot Z90.49 ACQUIRED ABSENCE OF OTHER SPECIFIED PART 07/25/2018 ALEM SIMONS DOLINE S Ot Z96.653 PRESENCE OF ARTIFICIAL KNEE JOINT, BILAT 08/21/2018 SLIM CARLSON, FUENTES Roth Ot Z01.818 ENCOUNTER FOR OTHER PREPROCEDURAL EXAMIN 08/21/2018 SLIM CARLSON, FUENTES Roth Ot Z01.818 ENCOUNTER FOR OTHER PREPROCEDURAL EXAMIN 08/21/2018 SLIM CARLSON, FUENTES Roth Ot Z01.818 ENCOUNTER FOR OTHER PREPROCEDURAL EXAMIN 08/29/2018 SLIM CARLSON, FUENTES Roth Ot D12.5 BENIGN NEOPLASM OF SIGMOID COLON 08/29/2018 SLIM CARLSON, FUENTES Roth Ot E78.5 HYPERLIPIDEMIA, UNSPECIFIED 08/29/2018 FUETNES SMALLS MD Ot F17.290 NICOTINE DEPENDENCE, OTHER TOBACCO PRODU 08/29/2018 SLIM CARLSON, FUENTES Roth Ot K57.30 DVRTCLOS OF LG INT W/O PERFORATION OR AB 08/29/2018 FUENTES SMALLS MD Ot 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 09/02/2018 FUENTES SMALLS MD Ot D12.5 BENIGN NEOPLASM OF SIGMOID COLON 09/02/2018 FUENTES SMALLS MD Ot E78.5 HYPERLIPIDEMIA, UNSPECIFIED 09/02/2018 FUENTES SMALLS MD Ot F17.290 NICOTINE DEPENDENCE, OTHER TOBACCO PRODU 09/02/2018 FUENTES SMALLS MD Ot K57.30 DVRTCLOS OF LG INT W/O PERFORATION OR AB 09/02/2018 FUENTES SMALLS MD Ot Z79.899 OTHER LONGTERM (CURRENT) DRUG THERAPY 09/21/2018 FUENTES SMALLS MD Ot D12.5 BENIGN NEOPLASM OF SIGMOID COLON 09/21/2018 FUENTES SMALLS MD Ot E78.5 HYPERLIPIDEMIA, UNSPECIFIED 09/21/2018 FUENTES SMALLS MD Ot F17.290 NICOTINE DEPENDENCE, OTHER TOBACCO PRODU 09/21/2018 FUENTES SMALLS MD Ot K57.30 DVRTCLOS OF LG INT W/O PERFORATION OR AB 09/21/2018 FUENTES SMALLS MD Ot Z79.899 OTHER LONGTERM (CURRENT) DRUG THERAPY 09/28/2018 FUENTES SMALLS MD Ot D12.5 BENIGN NEOPLASM OF SIGMOID COLON 09/28/2018 FUENTES SMALLS MD Ot E78.5 HYPERLIPIDEMIA, UNSPECIFIED 09/28/2018 FUENTES SMALLS MD Ot F17.290 NICOTINE DEPENDENCE, OTHER TOBACCO PRODU 09/28/2018 FUENTES SMALLS MD Ot K57.30 DVRTCLOS OF LG INT W/O PERFORATION OR AB 09/28/2018 FUENTES SMALLS MD Ot 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 10/09/2018 FUENTES SMALLS MD Ot D12.5 BENIGN NEOPLASM OF SIGMOID COLON 10/09/2018 SLIM CARLSON, FUENTES Roth Ot E78.5 HYPERLIPIDEMIA, UNSPECIFIED 10/09/2018 FUENTES SMALLS MD Ot F17.290 NICOTINE DEPENDENCE, OTHER TOBACCO PRODU 10/09/2018 FUENTES SMALLS MD Ot K57.30 DVRTCLOS OF LG INT W/O PERFORATION OR AB 10/09/2018 FUENTES SMALLS MD Ot 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 10/25/2018 FUENTES SMALLS MD Ot D12.5 BENIGN NEOPLASM OF SIGMOID COLON 10/25/2018 FUENTES SMALLS MD Ot E78.5 HYPERLIPIDEMIA, UNSPECIFIED 10/25/2018 FUENTES SMALLS MD, Ot F17.290 NICOTINE DEPENDENCE, OTHER TOBACCO PRODU 10/25/2018 FUENTES SMALLS MD Ot K57.30 DVRTCLOS OF LG INT W/O PERFORATION OR AB 10/25/2018 FUENTES SMALLS MD, Ot Z79.899 OTHER LONGTERM (CURRENT) DRUG THERAPY 11/07/2018 LUANNE CARLSON FACC, ALI FACP CCDS Ot E78.5 HYPERLIPIDEMIA, UNSPECIFIED 11/07/2018 LUANNE CARLSON FACC, ALI FACP CCDS Ot F17.210 NICOTINE DEPENDENCE, CIGARETTES, UNCOMPL 11/07/2018 LUANNE CARLSON FACC, ALI FACP CCDS Ot I10 ESSENTIAL (PRIMARY) HYPERTENSION 11/07/2018 LUANNE CARLSON FACC, ALI FACP CCDS Ot I21.3 ST ELEVATION (STEMI) MYOCARDIAL INFARCTI 11/07/2018 LUANNE CARLSON FACC, ALI FACP CCDS Ot I25.10 ATHSCL HEART DISEASE OF [place] CORONARY 11/07/2018 LUANNE CARLSON FACC, ALI FACP CCDS Ot J44.9 CHRONIC OBSTRUCTIVE PULMONARY DISEASE, U 08/06/2019 FUENTES SMALLS MD Ot D12.5 BENIGN NEOPLASM OF SIGMOID COLON 08/06/2019 FUENTES SMALLS MD Ot E78.5 HYPERLIPIDEMIA, UNSPECIFIED 08/06/2019 FUENTES SMALLS MD Ot F17.290 NICOTINE DEPENDENCE, OTHER TOBACCO PRODU 08/06/2019 FUENTES SMALLS MD Ot K57.30 DVRTCLOS OF LG INT W/O PERFORATION OR AB 08/06/2019 FUENTES SMALLS MD Ot 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 08/06/2019 BAIMA, MADELINE L POLICY CHECKER Ot E78.5 HYPERLIPIDEMIA, UNSPECIFIED 08/06/2019 BAIMA, MADELINE L POLICY CHECKER Ot I25.10 ATHSCL HEART DISEASE OF [place] CORONARY 08/06/2019 BAIMA, MADELINE L POLICY CHECKER Ot I25.5 ISCHEMIC CARDIOMYOPATHY 08/06/2019 BAIMA, MADELINE L POLICY CHECKER Ot I70.213 ATHSCL [place] ARTERIES OF EXTRM W INTRMT 08/06/2019 BAIMA, MADELINE L POLICY CHECKER Ot I77.89 OTHER SPECIFIED DISORDERS OF ARTERIES AN 08/06/2019 BAIMA, MADELINE L POLICY CHECKER Ot Z72.0 TOBACCO USE 08/30/2019 BAIMA, MADELINE L POLICY CHECKER Ot E78.5 HYPERLIPIDEMIA, UNSPECIFIED 08/30/2019 BAIMA, MADELINE L POLICY CHECKER Ot I25.10 ATHSCL HEART DISEASE OF [place] CORONARY 08/30/2019 BAIMA, MADELINE L POLICY CHECKER Ot I25.5 ISCHEMIC CARDIOMYOPATHY 08/30/2019 BAIMA, MADELINE L POLICY CHECKER Ot I70.213 ATHSCL [place] ARTERIES OF EXTRM W INTRMT 08/30/2019 BAIMA, MADELINE L POLICY CHECKER Ot I77.89 OTHER SPECIFIED DISORDERS OF ARTERIES AN 08/30/2019 BAIMA, MADELINE L POLICY CHECKER Ot Z72.0 TOBACCO USE 10/07/2019 W E78.2 Mixe d hyperlipidemia José Miguelnder, Froilan S. 10/07/2019 W I25.10 Cor onary artery disease Orender, Froilan S. 10/07/2019 W J44.9 COPD (chronic obstructive pulmonary disease) Orender, Froilan S. 10/07/2019 W E78.2 Mixe d hyperlipidemia Orender, Froilan S. 10/07/2019 W G57.92 Grecia ropathy of left foot Orender, Froilan S. 10/07/2019 W I25.10 Cor onary artery disease Orender, Froilan S. 10/07/2019 W J44.9 COPD (chronic obstructive pulmonary disease) Orender, Froilan S. 01/08/2020 W D17.9 Lipoma José Miguelnder, Froilan S. 01/08/2020 W M51.36 Oth er intervertebral disc degeneration, lumbar region José MiguelAjit washingtonFroilan S. 01/08/2020 W D17.9 Lipoma Ajit Simonsqueline S. 01/08/2020 W M51.36 Ot er intervertebral disc degeneration, lumbar region Ajit Simonsjacky Fabian. Procedures Code Description Performed By Per formed On [id number] DR REED OF STOMACH WITH DRAINAGE DEVICE 07/23/2018 [id number] DI LATION OF 1 COR ART WITH DRUG-ELUT INT 11/06/2018 [id number] ME ASURE OF CARDIAC SAMPL PRESSURE, L H 11/06/2018 [id number] FL UOROSCOPY OF MULT COR ART USING L OSM 11/06/2018 [id number] FL UOROSCOPY OF LEFT HEART USING LOW OSMO 11/06/2018 Results Test Result Range Complete blood count (CBC) with automate d white blood cell (WBC) differential - 07/23/18 10:04 Blood leukocytes automated count (number/volume) 22.1 10*3/uL 4.3-11.0 Blood erythrocytes automated count (number/volume) 6.03 10*6/uL 4.35-5.85 Venous blood hemoglobin measurement (mass/volume) 19.2 g/dL 13.3-17.7 Blood hematocrit (volume fraction) 56 % 40-54 Automated erythrocyte mean corpuscular volume 93 [ foz_us] 80-99 Automated erythrocyte mean corpuscular h emoglobin (mass per erythrocyte) 32 pg 25-34 Automated erythrocyte mean corpuscular h emoglobin concentration measurement (mass/volume) 34 g/dL 32-36 Automated erythrocyte distribution width ratio 14. 6 % 10.0- 14.5 Automated blood platelet count (count/volume) 297 10*3/uL 130-400 Automated blood platelet mean volume measurement 10.3 [foz_us] 7.4-10.4 Automated blood neutrophils/100 leukocytes 92 % 42-75 Automated blood lymphocytes/100 leukocytes 6 % 12-44 Blood monocytes/100 leukocytes 2 % 0-12 Automated blood eosinophils/100 leukocytes 0 % 0-10 Automated blood basophils/100 leukocytes 0 % 0-10 Blood neutrophils automated count (number/volume) 20.3 10*3 1.8-7.8 Blood lymphocytes automated count (number/volume) 1.3 10*3 1.0-4.0 Blood monocytes automated count (number/volume) 0. 5 10*3 0.0-1.0 Automated eosinophil count 0.0 10*3/uL 0 .0-0.3 Automated blood basophil count (count/volume) 0.0 10*3/uL 0.0-0.1 Comprehensive metabolic panel - 07/23/18 10:04 Serum or plasma sodium measurement (moles/volume) 138 mmol/L 135-145 Serum or plasma potassium measurement (moles/volume) 4.2 mmol/L 3.6-5.0 Serum or plasma chloride measurement (moles/volume) 99 mmol/L 98-107 Carbon dioxide 25 mmol/L 21-32 Serum or plasma anion gap determination (moles/volume) 14 mmol/L 5-14 Serum or plasma urea nitrogen measurement (mass/volume ) 17 mg/dL 7-18 Serum or plasma creatinine measurement (mass/volume) 0.95 mg/dL 0.60-1.30 Serum or plasma urea nitrogen/creatinine mass ratio 18 NRG Serum or plasma creatinine measurement w ith calculation of estimated glomerular filtration rate > NRG Serum or plasma glucose measurement (mass/volume) 150 mg/dL 70-105 Serum or plasma calcium measurement (mass/volume) 10.2 mg/dL 8.5-10.1 Serum or plasma total bilirubin measurement (mass/volu me) 0.4 mg/dL 0.1-1.0 Serum or plasma alkaline phosphatase aidee surement (enzymatic activity/volume) 58 U/L 40-136 Serum or plasma aspartate aminotransfera se measurement (enzymatic activity/volume) 20 U/L 5-34 Serum or plasma alanine aminotransferase measurement (enzymatic activity/volume) 34 U/L 0-55 Serum or plasma protein measurement (mass/volume) 8.4 g/dL 6.4-8.2 Serum or plasma albumin measurement (mass/volume) 4.5 g/dL 3.2-4.5 CALCIUM CORRECTED 9.8 mg/dL 8.5-10.1 Serum or plasma C reactive protein measu rement (mass/volume) - 07/23/18 10:04 Serum or plasma C reactive protein measurement (mass/v olume) 0.36 mg/dL 0.00-0.50 Blood manual differential performed dete ction - 07/23/18 10:04 Blood monocytes/100 leukocytes 0 % NRG Manual blood segmented neutrophils/100 leukocytes 90 % NRG Blood band neutrophils/100 leukocytes 3 % NRG Manual blood lymphocytes/100 leukocytes 7 % NRG Manual eosinophils/100 leukocytes in nose 0 % NRG Manual blood basophils/100 leukocytes 0 % NRG Blood erythrocyte morphology finding identification NORMAL NRG Complete blood count (CBC) with automate d white blood cell (WBC) differential - 07/24/18 06:02 Blood leukocytes automated count (number/volume) 15.4 10*3/uL 4.3-11.0 Blood erythrocytes automated count (number/volume) 5.12 10*6/uL 4.35-5.85 Venous blood hemoglobin measurement (mass/volume) 16.4 g/dL 13.3-17.7 Blood hematocrit (volume fraction) 50 % 40-54 Automated erythrocyte mean corpuscular volume 97 [ foz_us] 80-99 Automated erythrocyte mean corpuscular h emoglobin (mass per erythrocyte) 32 pg 25-34 Automated erythrocyte mean corpuscular h emoglobin concentration measurement (mass/volume) 33 g/dL 32-36 Automated erythrocyte distribution width ratio 14. 9 % 10.0- 14.5 Automated blood platelet count (count/volume) 238 10*3/uL 130-400 Automated blood platelet mean volume measurement 10.4 [foz_us] 7.4-10.4 Automated blood neutrophils/100 leukocytes 79 % 42-75 Automated blood lymphocytes/100 leukocytes 12 % 12-44 Blood monocytes/100 leukocytes 9 % 0-12 Automated blood eosinophils/100 leukocytes 0 % 0-10 Automated blood basophils/100 leukocytes 0 % 0-10 Blood neutrophils automated count (number/volume) 12.0 10*3 1.8-7.8 Blood lymphocytes automated count (number/volume) 1.8 10*3 1.0-4.0 Blood monocytes automated count (number/volume) 1. 4 10*3 0.0-1.0 Automated eosinophil count 0.1 10*3/uL 0 .0-0.3 Automated blood basophil count (count/volume) 0.0 10*3/uL 0.0-0.1 PT panel in platelet poor plasma by coag ulation assay - 07/24/18 06:02 Prothrombin time (PT) in platelet poor plasma by coagu lation assay 13.3 s 12.2-14.7 INR in platelet poor plasma or blood by coagulation as say 1.0 0.8-1.4 Comprehensive metabolic panel - 07/24/18 06:02 Serum or plasma sodium measurement (moles/volume) 141 mmol/L 135-145 Serum or plasma potassium measurement (moles/volume) 3.9 mmol/L 3.6-5.0 Serum or plasma chloride measurement (moles/volume) 102 mmol/L 98-107 Carbon dioxide 28 mmol/L 21-32 Serum or plasma anion gap determination (moles/volume) 11 mmol/L 5-14 Serum or plasma urea nitrogen measurement (mass/volume ) 20 mg/dL 7-18 Serum or plasma creatinine measurement (mass/volume) 0.84 mg/dL 0.60-1.30 Serum or plasma urea nitrogen/creatinine mass ratio 24 NRG Serum or plasma creatinine measurement w ith calculation of estimated glomerular filtration rate > NRG Serum or plasma glucose measurement (mass/volume) 124 mg/dL 70-105 Serum or plasma calcium measurement (mass/volume) 9.1 mg/dL 8.5-10.1 Serum or plasma total bilirubin measurement (mass/volu me) 0.6 mg/dL 0.1-1.0 Serum or plasma alkaline phosphatase aidee surement (enzymatic activity/volume) 45 U/L 40-136 Serum or plasma aspartate aminotransfera se measurement (enzymatic activity/volume) 18 U/L 5-34 Serum or plasma alanine aminotransferase measurement (enzymatic activity/volume) 23 U/L 0-55 Serum or plasma protein measurement (mass/volume) 6.2 g/dL 6.4-8.2 Serum or plasma albumin measurement (mass/volume) 3.6 g/dL 3.2-4.5 CALCIUM CORRECTED 9.4 mg/dL 8.5-10.1 Complete blood count (CBC) with automate d white blood cell (WBC) differential - 11/06/18 00:10 Blood leukocytes automated count (number/volume) 15.0 10*3/uL 4.3-11.0 Blood erythrocytes automated count (number/volume) 5.30 10*6/uL 4.35-5.85 Venous blood hemoglobin measurement (mass/volume) 17.0 g/dL 13.3-17.7 Blood hematocrit (volume fraction) 50 % 40-54 Automated erythrocyte mean corpuscular volume 94 [ foz_us] 80-99 Automated erythrocyte mean corpuscular h emoglobin (mass per erythrocyte) 32 pg 25-34 Automated erythrocyte mean corpuscular h emoglobin concentration measurement (mass/volume) 34 g/dL 32-36 Automated erythrocyte distribution width ratio 14. 3 % 10.0- 14.5 Automated blood platelet count (count/volume) 278 10*3/uL 130-400 Automated blood platelet mean volume measurement 10.9 [[facility]] 7.4-10.4 Automated blood neutrophils/100 leukocytes 53 % 42-75 Automated blood lymphocytes/100 leukocytes 35 % 12-44 Blood monocytes/100 leukocytes 10 % 0-12 Automated blood eosinophils/100 leukocytes 2 % 0-10 Automated blood basophils/100 leukocytes 0 % 0-10 Blood neutrophils automated count (number/volume) 7.9 10*3 1.8-7.8 Blood lymphocytes automated count (number/volume) 5.2 10*3 1.0-4.0 Blood monocytes automated count (number/volume) 1. 5 10*3 0.0-1.0 Automated eosinophil count 0.3 10*3/uL 0 .0-0.3 Automated blood basophil count (count/volume) 0.1 10*3/uL 0.0-0.1 Comprehensive metabolic panel - 11/06/18 00:10 Serum or plasma sodium measurement (moles/volume) 139 mmol/L 135-145 Serum or plasma potassium measurement (moles/volume) 3.8 mmol/L 3.6-5.0 Serum or plasma chloride measurement (moles/volume) 104 mmol/L 98-107 Carbon dioxide 22 mmol/L 21-32 Serum or plasma anion gap determination (moles/volume) 13 mmol/L 5-14 Serum or plasma urea nitrogen measurement (mass/volume ) 15 mg/dL 7-18 Serum or plasma creatinine measurement (mass/volume) 1.05 mg/dL 0.60-1.30 Serum or plasma urea nitrogen/creatinine mass ratio 14 NRG Serum or plasma creatinine measurement w ith calculation of estimated glomerular filtration rate > NRG Serum or plasma glucose measurement (mass/volume) 124 mg/dL 70-105 Serum or plasma calcium measurement (mass/volume) 9.6 mg/dL 8.5-10.1 Serum or plasma total bilirubin measurement (mass/volu me) 0.4 mg/dL 0.1-1.0 Serum or plasma alkaline phosphatase aidee surement (enzymatic activity/volume) 57 U/L 40-136 Serum or plasma aspartate aminotransfera se measurement (enzymatic activity/volume) 20 U/L 5-34 Serum or plasma alanine aminotransferase measurement (enzymatic activity/volume) 21 U/L 0-55 Serum or plasma protein measurement (mass/volume) 7.4 g/dL 6.4-8.2 Serum or plasma albumin measurement (mass/volume) 4.2 g/dL 3.2-4.5 CALCIUM CORRECTED 9.4 mg/dL 8.5-10.1 Magnesium - 11/06/18 00:10 Magnesium 2.6 mg/dL 1.8-2.4 Serum or plasma creatine kinase measurem ent (enzymatic activity/volume) - 11/06/18 00:10 Serum or plasma creatine kinase measurem ent (enzymatic activity/volume) 171 U/L 30-200 Serum or plasma creatine kinase MB measu rement (enzymatic activity/volume) - 11/06/18 00:10 Serum or plasma creatine kinase MB measu rement (enzymatic activity/volume) 3.2 ng/mL <6.6 Serum or plasma troponin i.cardiac measu rement (mass/volume) - 11/06/18 00:10 Serum or plasma troponin i.cardiac measurement (mass/v olume) < ng/mL <0.028 Serum or plasma acetaminophen measuremen t (mass/volume) - 11/06/18 00:10 Serum or plasma acetaminophen measurement (mass/volume ) < ug/mL 10-30 Serum or plasma ethanol measurement (mas s/volume) - 11/06/18 00:10 Serum or plasma ethanol measurement (mass/volume) < mg/dL <10 Myoglobin, serum - 11/06/18 00:10 Myoglobin, serum 85.2 ng/mL 10.0-92.0 Serum or plasma amylase measurement (enz ymatic activity/volume) - 11/06/18 00:10 Serum or plasma amylase measurement (enzymatic activit y/volume) 59 U/L 25-125 Lipase - 11/06/18 00:10 Lipase 14 U/L 8-78 Blood manual differential performed dete ction - 11/06/18 00:10 Blood monocytes/100 leukocytes 5 % NRG Manual blood segmented neutrophils/100 leukocytes 49 % NRG Blood band neutrophils/100 leukocytes 2 % NRG Manual blood lymphocytes/100 leukocytes 41 % NRG Manual eosinophils/100 leukocytes in nose 3 % NRG Blood erythrocyte morphology finding identification NORMAL NRG Serum or plasma lithium measurement (mol es/volume) - 11/06/18 00:10 BNP level 22.7 pg/mL <100.0 PT panel in platelet poor plasma by coag ulation assay - 11/06/18 00:10 Prothrombin time (PT) in platelet poor plasma by coagu lation assay 11.6 s 12.2-14.7 INR in platelet poor plasma or blood by coagulation as say 0.8 0.8-1.4 Activated partial thromboplastin time (a PTT) in platelet poor plasma bycoagulation assay - 11/06/18 00:10 Activated partial thromboplastin time (a PTT) in platelet poor plasma bycoagulation assay 32 s 24-35 Methicillin resistant Staphylococcus aur eus (MRSA) screening culture - 11/06/18 02:40 Methicillin resistant Staphylococcus aureus (MRSA) scr eening culture NEG NRG Complete blood count (CBC) with automate d white blood cell (WBC) differential - 11/06/18 03:20 Blood leukocytes automated count (number/volume) 12.1 10*3/uL 4.3-11.0 Blood erythrocytes automated count (number/volume) 4.81 10*6/uL 4.35-5.85 Venous blood hemoglobin measurement (mass/volume) 15.3 g/dL 13.3-17.7 Blood hematocrit (volume fraction) 46 % 40-54 Automated erythrocyte mean corpuscular volume 95 [ foz_us] 80-99 Automated erythrocyte mean corpuscular h emoglobin (mass per erythrocyte) 32 pg 25-34 Automated erythrocyte mean corpuscular h emoglobin concentration measurement (mass/volume) 33 g/dL 32-36 Automated erythrocyte distribution width ratio 14. 4 % 10.0- 14.5 Automated blood platelet count (count/volume) 247 10*3/uL 130-400 Automated blood platelet mean volume measurement 10.9 [foz_us] 7.4-10.4 Automated blood neutrophils/100 leukocytes 76 % 42-75 Automated blood lymphocytes/100 leukocytes 18 % 12-44 Blood monocytes/100 leukocytes 5 % 0-12 Automated blood eosinophils/100 leukocytes 1 % 0-10 Automated blood basophils/100 leukocytes 0 % 0-10 Blood neutrophils automated count (number/volume) 9.2 10*3 1.8-7.8 Blood lymphocytes automated count (number/volume) 2.1 10*3 1.0-4.0 Blood monocytes automated count (number/volume) 0. 7 10*3 0.0-1.0 Automated eosinophil count 0.1 10*3/uL 0 .0-0.3 Automated blood basophil count (count/volume) 0.0 10*3/uL 0.0-0.1 Whole blood basic metabolic panel - 04/18 03:25 Serum or plasma sodium measurement (moles/volume) 136 mmol/L 135-145 Serum or plasma potassium measurement (moles/volume) 4.0 mmol/L 3.6-5.0 Serum or plasma chloride measurement (moles/volume) 105 mmol/L 98-107 Carbon dioxide 22 mmol/L 21-32 Serum or plasma anion gap determination (moles/volume) 9 mmol/L 5-14 Serum or plasma urea nitrogen measurement (mass/volume ) 15 mg/dL 7-18 Serum or plasma creatinine measurement (mass/volume) 0.83 mg/dL 0.60-1.30 Serum or plasma urea nitrogen/creatinine mass ratio 18 NRG Serum or plasma creatinine measurement w ith calculation of estimated glomerular filtration rate > NRG Serum or plasma glucose measurement (mass/volume) 124 mg/dL 70-105 Serum or plasma calcium measurement (mass/volume) 8.4 mg/dL 8.5-10.1 Serum or plasma phosphate measurement (m ass/volume) - 11/06/18 03:25 Serum or plasma phosphate measurement (mass/volume) 3.0 mg/dL 2.3-4.7 Magnesium - 11/06/18 03:25 Magnesium 2.2 mg/dL 1.8-2.4 Complete blood count (CBC) with automate d white blood cell (WBC) differential - 11/07/18 03:40 Blood leukocytes automated count (number/volume) 12.4 10*3/uL 4.3-11.0 Blood erythrocytes automated count (number/volume) 4.74 10*6/uL 4.35-5.85 Venous blood hemoglobin measurement (mass/volume) 14.9 g/dL 13.3-17.7 Blood hematocrit (volume fraction) 45 % 40-54 Automated erythrocyte mean corpuscular volume 96 [ foz_us] 80-99 Automated erythrocyte mean corpuscular h emoglobin (mass per erythrocyte) 31 pg 25-34 Automated erythrocyte mean corpuscular h emoglobin concentration measurement (mass/volume) 33 g/dL 32-36 Automated erythrocyte distribution width ratio 14. 4 % 10.0- 14.5 Automated blood platelet count (count/volume) 235 10*3/uL 130-400 Automated blood platelet mean volume measurement 10.8 [foz_us] 7.4-10.4 Automated blood neutrophils/100 leukocytes 65 % 42-75 Automated blood lymphocytes/100 leukocytes 25 % 12-44 Blood monocytes/100 leukocytes 9 % 0-12 Automated blood eosinophils/100 leukocytes 1 % 0-10 Automated blood basophils/100 leukocytes 0 % 0-10 Blood neutrophils automated count (number/volume) 8.1 10*3 1.8-7.8 Blood lymphocytes automated count (number/volume) 3.1 10*3 1.0-4.0 Blood monocytes automated count (number/volume) 1. 1 10*3 0.0-1.0 Automated eosinophil count 0.1 10*3/uL 0 .0-0.3 Automated blood basophil count (count/volume) 0.0 10*3/uL 0.0-0.1 Whole blood basic metabolic panel - 10/29 03:40 Serum or plasma sodium measurement (moles/volume) 136 mmol/L 135-145 Serum or plasma potassium measurement (moles/volume) 4.0 mmol/L 3.6-5.0 Serum or plasma chloride measurement (moles/volume) 105 mmol/L 98-107 Carbon dioxide 24 mmol/L 21-32 Serum or plasma anion gap determination (moles/volume) 7 mmol/L 5-14 Serum or plasma urea nitrogen measurement (mass/volume ) 7 mg/dL 7-18 Serum or plasma creatinine measurement (mass/volume) 0.80 mg/dL 0.60-1.30 Serum or plasma urea nitrogen/creatinine mass ratio 9 NRG Serum or plasma creatinine measurement w ith calculation of estimated glomerular filtration rate > NRG Serum or plasma glucose measurement (mass/volume) 104 mg/dL 70-105 Serum or plasma calcium measurement (mass/volume) 8.8 mg/dL 8.5-10.1 Serum or plasma phosphate measurement (m ass/volume) - 11/07/18 03:40 Serum or plasma phosphate measurement (mass/volume) 2.9 mg/dL 2.3-4.7 Magnesium - 11/07/18 03:40 Magnesium 2.0 mg/dL 1.8-2.4 Lipid 1996 panel - 11/07/18 03:40 Serum or plasma triglyceride measurement (mass/volume) 117 mg/dL <150 Serum or plasma cholesterol measurement (mass/volume) 171 mg/dL < 200 Serum or plasma cholesterol in HDL measurement (mass/v olume) 26 mg/dL 40-60 Cholesterol in LDL [mass/volume] in serum or plasma by direct assay 134 mg/dL 1-129 Serum or plasma cholesterol in VLDL measurement (mass/ volume) 23 mg/dL 5-40 Encounters ACCT No. Visit Date/Time Discharge Status Pt. Type Provider Facility Loc./Unit Complaint 10/17/15 07/01/2019 09:43:25 07/01/2019 23:5 9:59 CLS Outpatient Froilan Simons [id number] 10/07/2019 10:33:00 Document Registration [id number] 05/21/2019 11:05:00 23:59:59 CLS Outpatient MADELINE NGO [facility] CARD CAD [id number] 05/02/2019 09:38:00 23:59:59 CLS Preadmit MADELINE NGO [facility] RAD CAD [id number] 11/06/2018 04:37:00 08:50:00 DIS Inpatient LUANNE CARLSON FACC, DORIAN WISEMAN CCD S [facility] ICU CHEST PAINS, T HROWING UP [id number] 08/27/2018 08:47:00 23:59:59 CLS Outpatient FUENTES SMALLS MD [facility] ENDO IRREGULAR BM [id number] 08/21/2018 13:44:00 13:46:00 DIS Outpatient FUENTES SMALLS MD [facility] PREOP COLONOSCOPY [id number] 07/23/2018 11:47:00 12/26/2 018 15:30:00 DIS Inpatient FROILAN SIMONS DO [facility] 4TH SMALL BOWEL OBS TRUCTION
[2020-01-12 17:56] LABS: ALBUMIN 4.3 GM/DL (3.2-4.5)
[2020-01-12 17:57] LABS: POTASSIUM 4.3 MMOL/L (3.6-5.0)
[2020-01-12 17:58] LABS: CALCIUM 9.9 MG/DL (8.5-10.1)
[2020-01-12 17:59] LABS: TOTAL PROTEIN 7.5 GM/DL (6.4-8.2)
[2020-01-12 18:01] LABS: BILIRUBIN,TOTAL 0.9 MG/DL (0.1-1.0)
[2020-01-12 18:03] LABS: CREATININE SERUM 1.33 MG/DL (0.60-1.30)
[2020-01-12 18:06] LABS: MAGNESIUM 1.9 MG/DL (1.6-2.4)
[2020-01-12 18:20] LABS: INR 0.9 (0.8-1.4); PROTHROMBIN TIME PATIENT 12.3 SEC (12.2-14.7)
--- NOTE | 2020-01-12 18:29 | Diagnostic Imaging Report ---
INDICATION: Chest pain. Fever and chills. COMPARISON: 11/06/2018 EXAMINATION: Single frontal view of the chest was obtained. FINDINGS: Normal heart size and pulmonary vascularity. The lungs show minimal left basilar atelectasis, but are otherwise clear. No large pleural effusion or pneumothorax is seen. The visualized osseous structures show no acute abnormality. IMPRESSION: No acute cardiopulmonary process. Dictated by: Dictated on workstation # [id number]
[2020-01-12] MEDS ORDERED: NS IV 1000 ML 1,000 ML IV SCH (18:30)
[2020-01-12] MEDS ORDERED: NITROGLYCERIN 0.4 MG SL TABS BTL 25'S SL PRN ×2 (18:30→23:45)
--- NOTE | 2020-01-12 18:35 | NUR ---
Patient denies any chest pain at this time.
--- NOTE | 2020-01-12 18:43 | ED Chest Pain ---
General Chief Complaint: Chest Pain Stated Complaint: CP Nursing Triage Note: Patient ambulatory to ER civid unit for complaint of chest pain. Patient is awake and alert x 4 stating he was out doing yard work and then jumped in the pool. He began experiencing crushing chest pain with sweating, nausea, and felt weak. Patient states this feels similar to the RI he had in October 2018. Pain is to mid sternum and is non-radiating. Nursing Sepsis Screen: No Definite Risk Source: patient Exam Limitations: no limitations History of Present Illness Date Seen by Provider: Jan 12, 2020 Time Seen by Provider: 17:30 Initial Comments This 64-year-old gentleman with coronary artery disease presents to the emergency room with central chest pain which is somewhat atypical in nature in that it seems tender. He was shoveling rock today and then jumped in the swimming pool. He then experienced crushing chest pain. He rates his pain as 5/10 at this time. He says it feels similar to prior RI in October of last year. He was diaphoretic and nauseated. He denies any fever, cough, or shortness of breath. He does have history of coronary artery disease with stent placement. Diffuse moderate disease was noted during his angiography. He also had impaired systolic function at the time of the heart catheter. Dr. Rico is his primary linemarker. Allergies and Home Medications Allergies Coded Allergies: No Known Drug Allergies (Verified , 05/22/07) Home Medications Aspirin 81 Mg Tab.chew, 81 MG PO DAILY Prescribed by: MADELINE NGO on 11/06/181532 Atorvastatin Calcium 40 Mg Tablet, 80 MG PO HS Prescribed by: MADELINE NGO on 11/06/181532 Clopidogrel Bisulfate 75 Mg Tablet, 75 MG PO DAILY Prescribed by: MADELINE NGO on 11/06/181532 Hydrocodone Bit/Acetaminophen 1 Each Tablet, 1 TAB PO Q6H PRN for PAIN-MODERATE, (Reported) Lisinopril 5 Mg Tablet, 2.5 MG PO DAILY Prescribed by: MADELINE NGO on 11/06/181532 Metoprolol Succinate 25 Mg Tab.er.24h, 25 MG PO DAILY Prescribed by: MADELINE NGO on 11/06/18 153 Patient Home Medication List Home Medication List Reviewed: Yes Review of Systems Review of Systems Constitutional: see HPI, diaphoresis EENTM: No Symptoms Reported Respiratory: No Symptoms Reported Cardiovascular: See HPI Gastrointestinal: See HPI Genitourinary: No Symptoms Reported Musculoskeletal: no symptoms reported Skin: no symptoms reported Psychiatric/Neurological: No Symptoms Reported Endocrine: No Symptoms Reported Hematologic/Lymphatic: No Symptoms Reported Past Rggwjhs-Lebuab-Ajarja Hx Past Med/Social Hx: Reviewed Nursing Past Med/Soc Hx Patient Social History Alcohol Use: Denies Use Recreational Drug Use: No Drug of Choice: THC "WHEN YOUNGER" Smoking Status: Current Everyday Smoker Type Used: Cigars, Cigarettes 2nd Hand Smoke Exposure: Yes Recent Foreign Travel: No Contact w/Someone Who Travel: No Recent Infectious Disease Expo: No Recent Hopitalizations: No Physical Abuse: No Sexual Abuse: No Mistreated: No Fear: No Immunizations Up To Date Tetanus Booster (TDap): Unknown PED Vaccines UTD: Yes Date of Pneumonia Vaccine: Apr 30, 2018 Date of Influenza Vaccine: Apr 30, 2018 Seasonal Allergies Seasonal Allergies: No Past Medical History Surgeries: Yes Abdominal, Bowel Surgery, Coronary Stent, Gallbladder, Joint Replacement, Orthopedic Respiratory: No Cardiac: Yes Coronary Artery Disease, Heart Attack, High Cholesterol, Hypertension Neurological: Yes Neuropathy Reproductive Disorders: No Genitourinary: No Gastrointestinal: Yes (HAS AN UNBILICAL HERNIA, BOWEL OBSTRUCTION WITH A REVERSAL OF A COLOSTOMY) Diverticulosis Musculoskeletal: No Endocrine: No HEENT: No Cancer: No Psychosocial: No Integumentary: No Blood Disorders: No Family Medical History Reviewed Nursing Family Hx Cardiovascular disease 19 MOTHER G8 BROTHER Congenital heart disease 19 FATHER Physical Exam Vital Signs Vital Signs - First Documented Capillary Refill : Less Than 3 Seconds Height, Weight, BMI Height: 6'1.00" Weight: 230lbs. 0.0oz. 104.923232os; 30.00 BMI Method:Stated General Appearance: No Apparent Distress, WD/WN HEENT: PERRL/EOMI, Normal ENT Inspection Neck: Normal Inspection; No JVD Respiratory: Lungs Clear, Normal Breath Sounds, No Accessory Muscle Use, No Respiratory Distress, Crackles (Faint in the bases), Other (Anterior chest wall tender to palpation) Cardiovascular: Regular Rate, Rhythm, No Edema, No JVD, No Murmur, Normal Peripheral Pulses Gastrointestinal: Normal Bowel Sounds, Non Tender, Soft; No Distended Extremity: Normal Inspection, Non Tender, No Calf Tenderness, No Pedal Edema Neurologic/Psychiatric: Alert, Oriented x3, No Motor/Sensory Deficits, Normal 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, 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 Skin: Normal Color, Warm/Dry Progress/Results/Core Measures Results/Orders Lab Results Laboratory Tests Test 01/12/20 17:41 01/12/20 19:42 Range/Units White Blood Count 12.6 H 4.3-11.0 10^3/uL Red Blood Count 5.01 4.35-5.85 10^6/uL Hemoglobin 16.6 13.3-17.7 G/DL Hematocrit 50 40-54 % Mean Corpuscular Volume 100 H 80-99 FL Mean Corpuscular Hemoglobin 33 25-34 PG Mean Corpuscular Hemoglobin Concent 33 32-36 G/DL Red Cell Distribution Width 14.2 10.0-14.5 % Platelet Count 240 130-400 10^3/uL Mean Platelet Volume 11.0 H 7.4-10.4 FL Neutrophils (%) (Auto) 59 42-75 % Lymphocytes (%) (Auto) 32 12-44 % Monocytes (%) (Auto) 7 0-12 % Eosinophils (%) (Auto) 2 0-10 % Basophils (%) (Auto) 0 0-10 % Neutrophils # (Auto) 7.4 1.8-7.8 X 10^3 Lymphocytes # (Auto) 4.0 1.0-4.0 X 10^3 Monocytes # (Auto) 0.9 0.0-1.0 X 10^3 Eosinophils # (Auto) 0.3 0.0-0.3 10^3/uL Basophils # (Auto) 0.0 0.0-0.1 10^3/uL Prothrombin Time 12.3 12.2-14.7 SEC INR Comment 0.9 0.8-1.4 Activated Partial Thromboplast Time 27 24-35 SEC D-Dimer 0.58 H 0.00-0.49 UG/ML Sodium Level 139 135-145 MMOL/L Potassium Level 4.3 3.6-5.0 MMOL/L Chloride Level 100 98-107 MMOL/L Carbon Dioxide Level 28 21-32 MMOL/L Anion Gap 11 5-14 MMOL/L Blood Urea Nitrogen 14 7-18 MG/DL Creatinine 1.33 H 0.60-1.30 MG/DL Estimat Glomerular Filtration Rate 54 BUN/Creatinine Ratio 11 Glucose Level 144 H 70-105 MG/DL Calcium Level 9.9 8.5-10.1 MG/DL Corrected Calcium 9.7 8.5-10.1 MG/DL Magnesium Level 1.9 1.6-2.4 MG/DL Total Bilirubin 0.9 0.1-1.0 MG/DL Aspartate Amino Transf (AST/SGOT) 27 5-34 U/L Alanine Aminotransferase (ALT/SGPT) 33 0-55 U/L Alkaline Phosphatase 57 40-136 U/L Myoglobin 181.1 H 10.0-92.0 NG/ML Troponin I < 0.028 0.047 H <0.028 NG/ML C-Reactive Protein High Sensitivity 0.25 0.00-0.50 MG/DL B-Type Natriuretic Peptide 38.9 <100.0 PG/ML Total Protein 7.5 6.4-8.2 GM/DL Albumin 4.3 3.2-4.5 GM/DL My Orders Orders - MARLEE BETANCOURT MD Nitroglycerin 0.4 Mg Btl 25's (Nitrostat (01/12/20 18:30) Ct Angio Chest W (01/12/20 18:29) Hs C Reactive Protein (01/12/20 18:29) Ns Iv 1000 Ml (Sodium Chloride 0.9%) (01/12/20 18:30) Troponin I (01/12/20 19:45) Coronavirus Sars-Cov-2 So 2018 (01/12/20 18:48) Iohexol Injection (Omnipaque 350 Mg/Ml 1 (01/12/20 20:00) Received Contrast (Hold Metformin- Contr (01/12/20 20:00) Ns (Ivpb) (Sodium Chloride 0.9% Ivpb Bag (01/12/20 20:00) Medications Given in ED Current Medications Medications Dose Ordered Sig/Nolberto Route Start Time Stop Time Status Last Admin Dose Admin Aspirin 324 mg ONCE ONCE PO 01/12/20 17:30 01/12/20 17:32 DC 01/12/20 17:43 324 MG Iohexol 100 ml ONCE ONCE IV 01/12/20 20:00 01/12/20 20:01 DC 01/12/20 20:02 84 ML Nitroglycerin 0.4 mg UD PRN SL 01/12/20 18:30 01/12/20 18:32 0.4 MG Sodium Chloride 100 ml ONCE ONCE IV 01/12/20 20:00 01/12/20 20:01 DC 01/12/20 20:06 80 ML Vital Signs/I&O 01/12/20 01/12/20 01/12/20 01/12/20 17:27 17:27 17:27 18:01 Temp 36.0 Pulse 72 70 Resp 12 17 B/P (MAP) 128/85 (99) 137/83 (101) Pulse Ox 97 98 92 O2 Delivery Room Air Room Air Room Air Room Air 01/12/20 01/12/20 18:44 20:01 Pulse 66 69 Resp 16 14 B/P (MAP) 128/75 (92) 123/85 (98) Pulse Ox 92 95 O2 Delivery Room Air Room Air Blood Pressure Mean: 101 Progress Progress Note #1: Time: 18:43 Progress Note Patient is now free of pain after nitroglycerin 1. He also received aspirin. D-dimer was mildly elevated. CT exam will follow. WBC was also mildly elevated. A CRP was added. Renal function is below 60 GFR. A liter of IV fluid is infusing. Progress Note #2: Time: 20:45 Progress Note Patient remains pain free. Repeat troponin returned elevated. This should be considered an STEMI until proven otherwise. Case was discussed with Dr. Mar who recommended Plavix 300 mg and one dose of Lovenox. He is to be nothing by mouth after midnight in preparation for possible angiography. Patient is considered PUI for COVID 19. He had notable cough throughout his ER stay which he stated was chronic. COVID swab was sent. Incidental CT findings listed in diagnoses. Initial ECG Impression Date: Jan 12, 2020 Initial ECG Impression Time: 17:27 Initial ECG Rate: 69 Initial ECG Rhythm: Normal Sinus Comment PACs. No overt ST elevation or depression. No abnormal intervals or axis deviation. Diagnostic Imaging Diagonstic Imaging: Xray Plain Films/CT/US/NM/MRI: chest Comments Chest x-ray viewed by me and report reviewed. See report below: NAME: [facility]IRLEY [facility] REC#: [id number] PT STATUS: REG ER : 1955 PHYSICIAN: BERTA LOMAX CHIEF MEDICAL DIRECTOR ADMIT DATE: 01/12/20/ER Draft Date of Exam:01/12/20 CHEST 1 VIEW, AP/PA ONLY INDICATION: Chest pain. Fever and chills. COMPARISON: 11/06/2018 EXAMINATION: Single frontal view of the chest was obtained. FINDINGS: Normal heart size and pulmonary vascularity. The lungs show minimal left basilar atelectasis, but are otherwise clear. No large pleural effusion or pneumothorax is seen. The visualized osseous structures show no acute abnormality. IMPRESSION: No acute cardiopulmonary process. Dictated on workstation # [id number] Dict: 01/12/201821 Trans: 01/12/201827 [facility] [id number] Interpreted by: SHAY MENDOZA MD Diagonstic Imaging: CT Plain Films/CT/US/NM/MRI: chest Comments CT angiogram viewed by me and report reviewed. See report below: NAME: SHIRLEY HENRY [facility] REC#: [id number] PT STATUS: REG ER : 1955 PHYSICIAN: MARLEE BETANCOURT MD ADMIT DATE: 01/12/20/ER Draft Date of Exam:01/12/20 CT ANGIO CHEST W PROCEDURE: CT angiography of the chest with contrast. TECHNIQUE: Multiple contiguous axial images were obtained through the chest after uneventful bolus administration of intravenous contrast. 3D reconstructed CTA MIP acquisitions were also performed. Auto Exposure Controls were utilized during the CT exam to meet ALARA standards for radiation dose reduction. INDICATION: Shortness of air. Dyspnea. COMPARISON: 04/19/2008. FINDINGS: There is no acute pulmonary embolus of the 1st subsegmental division of the pulmonary arteries. Thoracic aorta is suboptimally opacified for angiographic evaluation. There is mild calcified atherosclerosis of the thoracic aorta. Thoracic aorta is otherwise normal in course and caliber. Heart size is within normal limits. There is no large pericardial effusion. Note is made of metallic stent within the left anterior descending coronary artery. No pathologically enlarged or morphologically abnormal adenopathy is seen within the mediastinum, prieto or axilla. Evaluation of the lung cole demonstrates no focal consolidation, large effusion or pneumothorax. Mild bibasilar scarring and/or atelectasis is noted. Juxtapleural micronodule is noted within the lateral margins of the left lower lobe and measures 5-6 mm in diameter. This is stable compared to 07/23/2018. Punctate micronodules also noted within the base of the right upper lobe medially and measures 3 mm (image 80, series 3). This is stable compared to 04/19/2008. Subpleural micronodule within the posterior right lower lobe is also identified and measures 5 mm. This too, however, appears stable when compared to 07/23/2018. Osseous structures show age-related degenerative changes. No acute bony abnormality is seen. No lytic or blastic bony lesions are identified. Included portions of the upper abdomen show left adrenal lesion that measures 3.1 x 2.2 cm. This is stable compared to 3.4 x 2.3 cm previously. IMPRESSION: 1. No acute pulmonary embolus. 2. No other acute cardiopulmonary process. 3. Bilateral pulmonary micronodules. Six month follow-up is recommended to ensure stability. 4. Left adrenal lesion. This is incompletely characterized on this exam, but is stable. Follow-up is advised. Dictated on workstation # [id number] Dict: 01/12/202009 Trans: 01/12/202037 [facility] [id number] Interpreted by: SHAY MENDOZA MD Departure Communication (Admissions) Time/Spoke to Admitting Phy: 20:45 Dr. Gomez Time/Spoke to Consulting Phy: 20:30 Dr. Mar Impression Primary Impression: Acute xag-FA-bhezeazup myocardial infarction Additional Impressions: Chest pain Qualified Codes: R07.9 - Chest pain, unspecified Pulmonary nodules Adrenal nodule Disposition: ADMITTED INPATIENT Condition: Improved Admissions Decision to Admit Reason: Admit from ER (General) Decision to Admit/Date: Jan 12, 2020 Time/Decision to Admit Time: 20:20 Departure-Patient Inst. Referrals: NO,LOCAL PHYSICIAN (PCP/Family) Primary Care Physician Copy Copies To 1: DORIAN RICO MD FACP FAC CCDS Copies To 2: FROILAN BONILLA JOSHUA T MD Jan 12, 2020 18:42
--- NOTE | 2020-01-12 19:43 | NUR ---
Repeat troponin lab drawn from IV site.
--- NOTE | 2020-01-12 19:58 | NUR ---
patient brought back to room from CT.
[2020-01-12] MEDS ORDERED: HOLD METFORMIN - RECEIVED CONTRAST 20 ML VIAL IV SCH (20:00)
[2020-01-12] MEDS ORDERED: NS 100 ML (IVPB) BAG IV ONE (20:00)
[2020-01-12] MEDS ORDERED: IOHEXOL 350 MG/ML 100 ML (OMNIPAQUE 350) VIAL IV ONE (20:00)
--- NOTE | 2020-01-12 20:19 | NUR ---
Patient sleeping. No signs of distress present.
--- NOTE | 2020-01-12 20:39 | Diagnostic Imaging Report ---
PROCEDURE: CT angiography of the chest with contrast. TECHNIQUE: Multiple contiguous axial images were obtained through the chest after uneventful bolus administration of intravenous contrast. 3D reconstructed CTA MIP acquisitions were also performed. Auto Exposure Controls were utilized during the CT exam to meet ALARA standards for radiation dose reduction. INDICATION: Shortness of air. Dyspnea. COMPARISON: 04/19/2008. FINDINGS: There is no acute pulmonary embolus of the 1st subsegmental division of the pulmonary arteries. Thoracic aorta is suboptimally opacified for angiographic evaluation. There is mild calcified atherosclerosis of the thoracic aorta. Thoracic aorta is otherwise normal in course and caliber. Heart size is within normal limits. There is no large pericardial effusion. Note is made of metallic stent within the left anterior descending coronary artery. No pathologically enlarged or morphologically abnormal adenopathy is seen within the mediastinum, prieto or axilla. Evaluation of the lung cole demonstrates no focal consolidation, large effusion or pneumothorax. Mild bibasilar scarring and/or atelectasis is noted. Juxtapleural micronodule is noted within the lateral margins of the left lower lobe and measures 5-6 mm in diameter. This is stable compared to 07/23/2018. Punctate micronodules also noted within the base of the right upper lobe medially and measures 3 mm (image 80, series 3). This is stable compared to 04/19/2008. Subpleural micronodule within the posterior right lower lobe is also identified and measures 5 mm. This too, however, appears stable when compared to 07/23/2018. Osseous structures show age-related degenerative changes. No acute bony abnormality is seen. No lytic or blastic bony lesions are identified. Included portions of the upper abdomen show left adrenal lesion that measures 3.1 x 2.2 cm. This is stable compared to 3.4 x 2.3 cm previously. IMPRESSION: 1. No acute pulmonary embolus. 2. No other acute cardiopulmonary process. 3. Bilateral pulmonary micronodules. Six month follow-up is recommended to ensure stability. 4. Left adrenal lesion. This is incompletely characterized on this exam, but is stable. Follow-up is advised. Dictated by: Dictated on workstation # [id number]
[2020-01-12] MEDS ORDERED: ENOXAPARIN 100 MG/1 ML (LOVENOX) SYR SC ONE (20:45)
[2020-01-12] MEDS ORDERED: CLOPIDOGREL 300 MG (PLAVIX) TABLET PO ONE (20:45)
--- OUTSIDE RECORDS SUMMARY | 2020-01-12 21:21 | XMS REPORT | Continuity of Care Document ---
Author Organization Unknown Address Unknown Phone Unavailable Allergies Active Description Code Type Severity Reaction Onset Reported/Identified Relationship to Patient Clinical Status Yes No Known Drug Allergies [id number] Drug Allergy Unknown N/A 05/22/2007 Medications There is no data. Problems Date Dx Coded Attending Type Code Diagnosis Diagnosed By 07/25/2018 FROILAN SIMONS DO S Ot D72.829 ELEVATED WHITE BLOOD CELL COUNT, UNSPECI 07/25/2018 FROILAN SIMONS DO S Ot F17.290 NICOTINE DEPENDENCE, OTHER TOBACCO PRODU 07/25/2018 FROILAN SIMONS DO S Ot G89.29 OTHER CHRONIC PAIN 07/25/2018 ALEM SIMONS DOLINE S Ot K56.690 OTHER PARTIAL INTESTINAL OBSTRUCTION 07/25/2018 ALEM SIMONS DOLINE S Ot K56.699 OTHER INTESTNL OBST UNSP TO PARTIAL V 07/25/2018 ALEM SIMONS DOLINE S Ot M25.531 PAIN IN RIGHT WRIST 07/25/2018 ALEM SIMONS DOLINE S Ot R51 HEADACHE 07/25/2018 ALEM SIMONS DOLINE S Ot Z79.891 RN MIDWIFE (CURRENT) USE OF OPIATE ANALGE 07/25/2018 ALEM [...] FUENTES Roth Ot E78.5 HYPERLIPIDEMIA, UNSPECIFIED 08/29/2018 FUENTES SMALLS MD Ot F17.290 NICOTINE DEPENDENCE, OTHER TOBACCO PRODU 08/29/2018 SLIM CARLSON, FUENTES Roth Ot K57.30 DVRTCLOS OF LG INT W/O PERFORATION OR AB 08/29/2018 FUENTES SMALLS MD Ot Z79.899 OTHER RN MIDWIFE (CURRENT) DRUG THERAPY 09/02/2018 FUENTES SMALLS MD Ot D12.5 BENIGN NEOPLASM OF SIGMOID COLON 09/02/2018 FUENTES SMALLS MD Ot E78.5 HYPERLIPIDEMIA, UNSPECIFIED 09/02/2018 FUENTES SMALLS MD Ot F17.290 NICOTINE DEPENDENCE, OTHER TOBACCO PRODU 09/02/2018 FUENTES SMALLS MD Ot K57.30 DVRTCLOS OF LG INT W/O PERFORATION OR AB 09/02/2018 FUENTES SMALLS MD Ot Z79.899 OTHER SNF (CURRENT) DRUG THERAPY 09/21/2018 FUENTES SMALLS MD Ot D12.5 BENIGN NEOPLASM OF SIGMOID COLON 09/21/2018 FUENTES SMALLS MD Ot E78.5 HYPERLIPIDEMIA, UNSPECIFIED 09/21/2018 FUENTES SMALLS MD Ot F17.290 NICOTINE DEPENDENCE, OTHER TOBACCO PRODU 09/21/2018 FUENTES SMALLS MD Ot K57.30 DVRTCLOS OF LG INT W/O PERFORATION OR AB 09/21/2018 FUENTES SMALLS MD Ot Z79.899 OTHER SNF (CURRENT) DRUG THERAPY 09/28/2018 FUENTES SMALLS MD Ot D12.5 BENIGN NEOPLASM OF SIGMOID COLON 09/28/2018 FUENTES SMALLS MD Ot E78.5 HYPERLIPIDEMIA, UNSPECIFIED 09/28/2018 FUENTES SMALLS MD Ot F17.290 NICOTINE DEPENDENCE, OTHER TOBACCO PRODU 09/28/2018 FUENTES SMALLS MD Ot K57.30 DVRTCLOS OF LG INT W/O PERFORATION OR AB 09/28/2018 FUENTES SMALLS MD Ot Z79.899 OTHER RN MIDWIFE (CURRENT) DRUG THERAPY 10/09/2018 FUENTES SMALLS MD Ot D12.5 BENIGN NEOPLASM OF SIGMOID COLON 10/09/2018 SLIM CARLSON, FUENTES Roth Ot E78.5 HYPERLIPIDEMIA, UNSPECIFIED 10/09/2018 FUENTES SMALLS MD Ot F17.290 NICOTINE DEPENDENCE, OTHER TOBACCO PRODU 10/09/2018 FUENTES SMALLS MD Ot K57.30 DVRTCLOS OF LG INT W/O PERFORATION OR AB 10/09/2018 FUENTES SMALLS MD Ot Z79.899 OTHER RN MIDWIFE (CURRENT) DRUG THERAPY 10/25/2018 FUENTES SMALLS MD Ot D12.5 BENIGN NEOPLASM OF SIGMOID COLON 10/25/2018 FUENTES SMALLS MD Ot E78.5 HYPERLIPIDEMIA, UNSPECIFIED 10/25/2018 FUENTES SMALLS MD, Ot F17.290 NICOTINE DEPENDENCE, OTHER TOBACCO PRODU 10/25/2018 FUENTES SMALLS MD Ot K57.30 DVRTCLOS OF LG INT W/O PERFORATION OR AB 10/25/2018 FUENTES SMALLS MD, Ot Z79.899 OTHER SNF (CURRENT) DRUG THERAPY 11/07/2018 LUANNE CARLSON FACC, [...] CCDS Ot I25.10 ATHSCL HEART DISEASE OF [place] CORONARY 11/07/2018 LUANNE CARLSON FACC, ALI FACP [...] 08/06/2019 FUENTES SMALLS MD Ot Z79.899 OTHER RN MIDWIFE (CURRENT) DRUG THERAPY 08/06/2019 BAIMA, MADELINE L GIFT BASKET PACKER Ot E78.5 HYPERLIPIDEMIA, UNSPECIFIED 08/06/2019 BAIMA, MADELINE L GIFT BASKET PACKER Ot I25.10 ATHSCL HEART DISEASE OF [place] CORONARY 08/06/2019 BAIMA, MADELINE L GIFT BASKET PACKER Ot I25.5 ISCHEMIC CARDIOMYOPATHY 08/06/2019 BAIMA, MADELINE L GIFT BASKET PACKER Ot I70.213 ATHSCL [place] ARTERIES OF EXTRM W INTRMT 08/06/2019 BAIMA, MADELINE L GIFT BASKET PACKER Ot I77.89 OTHER SPECIFIED DISORDERS OF ARTERIES AN 08/06/2019 BAIMA, MADELINE L GIFT BASKET PACKER Ot Z72.0 TOBACCO USE 08/30/2019 BAIMA, MADELINE L GIFT BASKET PACKER Ot E78.5 HYPERLIPIDEMIA, UNSPECIFIED 08/30/2019 BAIMA, MADELINE L GIFT BASKET PACKER Ot I25.10 ATHSCL HEART DISEASE OF [place] CORONARY 08/30/2019 BAIMA, MADELINE L GIFT BASKET PACKER Ot I25.5 ISCHEMIC CARDIOMYOPATHY 08/30/2019 BAIMA, MADELINE L GIFT BASKET PACKER Ot I70.213 ATHSCL [place] ARTERIES OF EXTRM W INTRMT 08/30/2019 BAIMA, MADELINE L GIFT BASKET PACKER Ot I77.89 OTHER SPECIFIED DISORDERS OF ARTERIES AN 08/30/2019 BAIMA, MADELINE L GIFT BASKET PACKER Ot Z72.0 TOBACCO USE 10/07/2019 W E78.2 [...] Code Description Performed By Per formed [place] [id number] DR REED OF STOMACH WITH DRAINAGE DEVICE 07/23/2018 [id number] DI LATION OF 1 COR ART WITH DRUG-ELUT INT 11/06/2018 [id number] ME ASURE OF CARDIAC SAMPL PRESSURE, L H 11/06/2018 [id number] FL UOROSCOPY OF MULT COR ART USING L OSM 11/06/2018 [id number] FL UOROSCOPY OF LEFT HEART USING LOW [...] Automated blood platelet mean volume measurement 10.9 [chi [facility]] 7.4-10.4 Automated blood neutrophils/100 leukocytes 53 % [...] VLDL measurement (mass/ volume) 23 mg/dL 5-40 Complete blood count (CBC) with automate d white blood cell (WBC) differential - 01/12/20 17:41 Blood leukocytes automated count (number/volume) 12.6 10*3/uL 4.3-11.0 Blood erythrocytes automated count (number/volume) 5.01 10*6/uL 4.35-5.85 Venous blood hemoglobin measurement (mass/volume) 16.6 g/dL 13.3-17.7 Blood hematocrit (volume fraction) 50 % 40-54 Automated erythrocyte mean corpuscular volume 100 [foz_us] 80-99 Automated erythrocyte mean corpuscular h emoglobin (mass per erythrocyte) 33 pg 25-34 Automated erythrocyte mean corpuscular h emoglobin concentration measurement (mass/volume) 33 g/dL 32-36 Automated erythrocyte distribution width ratio 14. 2 % 10.0- 14.5 Automated blood platelet count (count/volume) 240 10*3/uL 130-400 Automated blood platelet mean volume measurement 11.0 [foz_us] 7.4-10.4 Automated blood neutrophils/100 leukocytes 59 % 42-75 Automated blood lymphocytes/100 leukocytes 32 % 12-44 Blood monocytes/100 leukocytes 7 % 0-12 Automated blood eosinophils/100 leukocytes 2 % 0-10 Automated blood basophils/100 leukocytes 0 % 0-10 Blood neutrophils automated count (number/volume) 7.4 10*3 1.8-7.8 Blood lymphocytes automated count (number/volume) 4.0 10*3 1.0-4.0 Blood monocytes automated count (number/volume) 0. 9 10*3 0.0-1.0 Automated eosinophil count 0.3 10*3/uL 0 .0-0.3 Automated blood basophil count (count/volume) 0.0 10*3/uL 0.0-0.1 Comprehensive metabolic panel - 01/12/20 17:41 Serum or plasma sodium measurement (moles/volume) 139 mmol/L 135-145 Serum or plasma potassium measurement (moles/volume) 4.3 mmol/L 3.6-5.0 Serum or plasma chloride measurement (moles/volume) 100 mmol/L 98-107 Carbon dioxide 28 mmol/L 21-32 Serum or plasma anion gap determination (moles/volume) 11 mmol/L 5-14 Serum or plasma urea nitrogen measurement (mass/volume ) 14 mg/dL 7-18 Serum or plasma creatinine measurement (mass/volume) 1.33 mg/dL 0.60-1.30 Serum or plasma urea nitrogen/creatinine mass ratio 11 NRG Serum or plasma creatinine measurement w ith calculation of estimated glomerular filtration rate 54 NRG Serum or plasma glucose measurement (mass/volume) 144 mg/dL 70-105 Serum or plasma calcium measurement (mass/volume) 9.9 mg/dL 8.5-10.1 Serum or plasma total bilirubin measurement (mass/volu me) 0.9 mg/dL 0.1-1.0 Serum or plasma alkaline phosphatase aidee surement (enzymatic activity/volume) 57 U/L 40-136 Serum or plasma aspartate aminotransfera se measurement (enzymatic activity/volume) 27 U/L 5-34 Serum or plasma alanine aminotransferase measurement (enzymatic activity/volume) 33 U/L 0-55 Serum or plasma protein measurement (mass/volume) 7.5 g/dL 6.4-8.2 Serum or plasma albumin measurement (mass/volume) 4.3 g/dL 3.2-4.5 CALCIUM CORRECTED 9.7 mg/dL 8.5-10.1 Magnesium - 01/12/20 17:41 Magnesium 1.9 mg/dL 1.6-2.4 Fibrin D-dimer FEU measurement in platel et poor plasma (mass/volume) - 01/12/20 17:41 Fibrin D-dimer FEU measurement in platelet poor plasma (mass/volume) 0.58 ug/mL 0.00-0.49 Serum or plasma lithium measurement (mol es/volume) - 01/12/20 17:41 BNP PT 38.9 pg/mL <100.0 Myoglobin, serum - 01/12/20 17:41 Myoglobin, serum 181.1 ng/mL 10.0-92.0 Serum or plasma troponin i.cardiac measu rement (mass/volume) - 01/12/20 17:41 Serum or plasma troponin i.cardiac measurement (mass/v olume) < ng/mL <0.028 PT panel in platelet poor plasma by coag ulation assay - 01/12/20 17:41 Prothrombin time (PT) in platelet poor plasma by coagu lation assay 12.3 s 12.2-14.7 INR in platelet poor plasma or blood by coagulation as say 0.9 0.8-1.4 Activated partial thromboplastin time (a PTT) in platelet poor plasma bycoagulation assay - 01/12/20 17:41 Activated partial thromboplastin time (a PTT) in platelet poor plasma bycoagulation assay 27 s 24-35 Serum or plasma C reactive protein measu rement (mass/volume) - 01/12/20 17:41 Serum or plasma C reactive protein measurement (mass/v olume) 0.25 mg/dL 0.00-0.50 Serum or plasma troponin i.cardiac measu rement (mass/volume) - 01/12/20 19:42 Serum or plasma troponin i.cardiac measurement (mass/v olume) 0.047 ng/mL <0.028 Encounters ACCT No. Visit Date/Time Discharge Status Pt. Type Provider Facility Loc./Unit Complaint 10/17/15 07/01/2019 09:43:25 07/01/2019 23:5 9:59 CLS Outpatient Froilan Simons 2735 10/07/2019 10:33:00 Document Registration [id number] 05/21/2019 11:05:00 23:59:59 CLS Outpatient MADELINE NGO [facility] CARD CAD [id number] 05/02/2019 09:38:00 23:59:59 CLS Preadmit MADELINE NGO [facility] RAD CAD [id number] 11/06/2018 04:37:00 08:50:00 DIS Inpatient LUANNE CARLSON FACC, DORIAN WISEMAN CCD S [facility] ICU CHEST PAINS, T HROWING UP [id number] 08/27/2018 08:47:00 23:59:59 CLS Outpatient FUENTES SMALLS MD [facility] ENDO IRREGULAR BM [id number] 08/21/2018 13:44:00 13:46:00 DIS Outpatient FUENTES SMALLS MD [facility] PREOP COLONOSCOPY [id number] 07/23/2018 11:47:00 15:30:00 DIS Inpatient FROILAN SIMONS DO [facility] 4TH SMALL BOWEL OBS TRUCTION [id number] 01/12/2020 17:49:00 Document Registration
--- NOTE | 2020-01-12 22:05 | NUR ---
SHIRLEY HENRY admitted to room 423-1, with an admitting diagnosis of chest pain, PUI on 01/12/20 from [facility], accompanied by STAFF. SHIRLEY HENRY introduced to surroundings, call light, bed controls, phone, TV, temperature control, lights, meal times, smoking policy, visitor policy, side rail policy, bathrooms and showers. Patient Rights given to patient in the handbook. SHIRLEY HENRY verbalizes understanding that [facility] is not responsible for the loss or damage to any personal effects or valuables that are kept in the patients posession during their hospitalization. SHIRLEY HENRY verbalizes understanding of Interdisciplinary Patient Education. Patient and/or family were informed about the Rapid Response Team and its purpose.
[2020-01-12] MEDS ORDERED: NICOTINE 21 MG (NICODERM) PATCH ONE (22:28)
[2020-01-12] MEDS ORDERED: ONDANSETRON 4 MG/2 ML (SDV) Z0FRAN IV PRN (23:45)
[2020-01-12] MEDS ORDERED: morphine INJ 4 MG/ML 1 ML (VIAL/SYRINGE) IV PRN (23:45)
[2020-01-13] VITALS (17 sets, daily range): BP systolic 105–139; BP diastolic 68–98
[2020-01-13] MEDS ORDERED: NS IV 1000 ML 1,000 ML IV SCH (06:45)
--- NOTE | 2020-01-13 06:53 | NUR ---
PT TROPONIN 2.819. ICU CALLED AND REPORTED THAT HEART RATE DROPPED IN 20'S. PT WAS SLEEPING. NOW AWAKE. HR IN THE 50'S. PT IS NOT C/O OF CHEST PAIN AND HIS WORD " I AM FIND". DR STROUD NOTIFIED AND NEW ORDERS TO RECEIVED TO START PT ON PLAVIX, LOVENOX AND IV FLUIDS. LABS READ TO . DR STROUD ALSO INFORMED TO TRANSFER PT TO ICU FOR CLOSE MONITOR.
[2020-01-13] MEDS: CLOPIDOGREL 75 MG (PLAVIX) TABLET PO SCH (07:53)
[2020-01-13] MEDS: ASPIRIN E.C. 81 MG (ECOTRIN) TAB PO SCH (07:53)
[2020-01-13] MEDS: ENOXAPARIN 100 MG/1 ML (LOVENOX) SYR SC SCH ×2 (07:59→20:49)
[2020-01-13] MEDS ORDERED: ENOXAPARIN 100 MG/1 ML (LOVENOX) SYR SC SCH (08:00)
--- NOTE | 2020-01-13 08:09 | Consultation-Cardiology ---
HPI-Cardiology Cardiology Consultation: Date of Consultation 01/13/20 Date of Admission Attending Physician Laisha Gomez MD Admitting Physician No,Local Physician Consulting Physician MADELINE DUBON [id number]-Bclsxa Hx Patient Social History Alcohol Use: Denies Use Recreational Drug Use: No Drug of Choice: THC "WHEN YOUNGER" Smoking Status: Current Everyday Smoker Type Used: Cigars, Cigarettes 2nd Hand Smoke Exposure: Yes Recent Foreign Travel: No Recent Infectious Disease Expo: No Hospitalization with Isolation: Denies Immunizations Up To Date Tetanus Booster (TDap): Unknown Date of Pneumonia Vaccine: Apr 30, 2018 Date of Influenza Vaccine: Apr 30, 2018 Past Medical History PMH As described under Assessment. Family Medical History Family History: Cardiovascular disease 19 MOTHER G8 BROTHER Congenital heart disease 19 FATHER Allergies and Home Medications Allergies Coded Allergies: No Known Drug Allergies (Verified , 05/22/07) Home Medications Aspirin 81 Mg Tablet.dr, 81 MG PO DAILY, (Reported) Atorvastatin Calcium 80 Mg Tablet, 80 MG PO HS, (Reported) Cholecalciferol (Vitamin D3) 25 Mcg Capsule, 25 MCG PO DAILY, (Reported) Fexofenadine HCl 180 Mg Tablet, 180 MG PO DAILY, (Reported) Fish Oil/Dha/Epa 1 Each Capsule, 1 EACH PO DAILY, (Reported) Hydrocodone Bit/Acetaminophen 1 Each Tablet, 1 TAB PO Q6H PRN for PAIN-MODERATE, (Reported) Lisinopril 5 Mg Tablet, 2.5 MG PO DAILY, (Reported) TAKES OF A 5MG TAB Metoprolol Succinate 25 Mg Tab.er.24h, 25 MG PO DAILY, (Reported) Ubidecarenone 100 Mg Capsule, 100 MG PO DAILY, (Reported) Physical Exam-Cardiology Physical Exam Vital Signs/I&O 01/13/20 01/13/20 01/13/20 01/13/20 03:15 04:15 07:00 08:00 Temp 36.3 Pulse 67 60 58 Resp 20 B/P (MAP) 136/88 (104) 121/80 (94) Pulse Ox 91 94 O2 Delivery Room Air Room Air Room Air 01/13/20 01/13/20 01/13/20 01/13/20 10:28 10:47 11:00 11:11 Temp 36.7 Pulse 62 61 62 Resp 20 22 21 B/P (MAP) 126/85 (99) 134/98 (110) 129/92 (104) Pulse Ox 95 99 94 O2 Delivery Room Air Room Air Room Air Room Air 01/13/20 01/13/20 01/13/20 01/13/20 12:00 12:00 12:52 13:00 Pulse 97 62 61 Resp 13 22 B/P (MAP) 131/79 (96) Pulse Ox 96 93 O2 Delivery Room Air Room Air Room Air 01/13/20 01/13/20 14:00 15:00 Pulse 62 57 Resp 30 26 Pulse Ox 93 92 O2 Delivery Room Air Room Air 01/13/20 00:00 Intake Total 1000 ml Balance 1000 ml Capillary Refill : Less Than 3 Seconds Data Review Labs Laboratory Tests 01/12/20 17:41: White Blood Count 12.6H, Red Blood Count 5.01, Hemoglobin 16.6, Hematocrit 50, Mean Corpuscular Volume 100H, Mean Corpuscular Hemoglobin 33, Mean Corpuscular Hemoglobin Concent 33, Red Cell Distribution Width 14.2, Platelet Count 240, Mean Platelet Volume 11.0H, Neutrophils (%) (Auto) 59, Lymphocytes (%) (Auto) 32, Monocytes (%) (Auto) 7, Eosinophils (%) (Auto) 2, Basophils (%) (Auto) 0, Neutrophils # (Auto) 7.4, Lymphocytes # (Auto) 4.0, Monocytes # (Auto) 0.9, Eosinophils # (Auto) 0.3, Basophils # (Auto) 0.0, Prothrombin Time 12.3, INR Comment 0.9, Activated Partial Thromboplast Time 27, D-Dimer 0.58H, Sodium Level 139, Potassium Level 4.3, Chloride Level 100, Carbon Dioxide Level 28, Anion Gap 11, Blood Urea Nitrogen 14, Creatinine 1.33H, Estimat Glomerular Filtration Rate 54, BUN/Creatinine Ratio 11, Glucose Level 144H, Calcium Level 9.9, Corrected Calcium 9.7, Magnesium Level 1.9, Total Bilirubin 0.9, Aspartate Amino Transf (AST/SGOT) 27, Alanine Aminotransferase (ALT/SGPT) 33, Alkaline Phosphatase 57, Myoglobin 181.1H, Troponin I < 0.028, C-Reactive Protein High Sensitivity 0.25, B-Type Natriuretic Peptide 38.9, Total Protein 7.5, Albumin 4.3 01/12/20 19:42: Troponin I 0.047H 6/15/20 04:50: Troponin I 2.819*H, Triglycerides Level 149, Cholesterol Level 160, LDL Cholesterol Direct 123, VLDL Cholesterol 30, HDL Cholesterol 29L A/P-Cardiology Assessment/Admission Diagnosis NSTEMI CAD - Acute ST-elevation myocardial infarction on November 06, 2018 due to ostial/proximal occlusion of the left anterior descending artery that was treated with successful primary angioplasty and stenting. Following deployment of Mirela 3.0 x 23 mm stent, there is no significant residual stenosis. The rest of the coronary vessels have diffuse moderate disease. Impairment of global left ventricular systolic function with anteroapical hypokinesis to akinesis and left ventricular ejection fraction of 35% to 40%. Elevated left ventricular end- diastolic pressure, on 11-06-2018 Most recent echo of May 21, 2019 showed LVEF 55-60%. Grade 1 diastolic dysfunction. RVSP approx 29 mmHg. Mild TR. Carotid u/s of December 2018 showed minimal bilat carotid plaque Segmental pressures of Apr 2019 showed no evidence of any signif PAD of the legs TAMI, noncompliant with CPAP Chronic tobacco use, advised to quit Hyperlipidemia - statin tx H/o intestinal perforation for which he underwent abdominal surgery in the Clinical Quality Measures AMI/AHF: ASA po Prior to arrival: No DVT/VTE Risk/Contraindication: Risk Factor Score Per Nursin RFS Level Per Nursing on Admit: 4+=Very High MADELINE NGO Jan 13, 2020 08:09
[2020-01-13] MEDS: NICOTINE 21 MG (NICODERM) PATCH TD SCH ×2 (08:47→18:30)
--- NOTE | 2020-01-13 09:19 | Consultation-Cardiology ---
HPI-Cardiology Cardiology Consultation: Date of Consultation 01/13/20 Time Seen by a Provider: 06:20 Date of Admission Attending Physician Laisha Gomez MD Admitting Physician No,Local Physician Consulting Physician DORIAN STROUD MD, MA, FACP, FACC, FSCAI, CCDS HPI: Chief Complaint: CC: Chest discomfort HPI 64 yo man with known CAD who was admitted with chest discomfort, mod, midsternal, similar to previous [place] of October 2018, after he had done physical labor and jumped in the pool (according to description provided by the ER physician). This was relieved in the ER with s/l NTG. The ER physician also notes chronic cough in his note and chose to send a swab for COVID testing. I spoke with the patient on the phone with the help of his nurse (as she stood by him) this morning at approx 6:20 am after his nurse called me to report a transient episode of bradycardia seen on tele. The patient did not report any syncope or near-syncope or cp or palp or shortness of breath. He was feeling well at the time that I spoke with him Review of Systems-Cardiology Review of Systems Constitutional: other (A detailed ROS was not obtained) LHW-Gxjcjy-Mqobty Hx Patient Social History Alcohol Use: Denies Use Recreational Drug Use: No Drug of Choice: THC "WHEN YOUNGER" Smoking Status: Current Everyday Smoker Type Used: Cigars, Cigarettes 2nd Hand Smoke Exposure: Yes Recent Foreign Travel: No Recent Infectious Disease Expo: No Hospitalization with Isolation: Denies Immunizations Up To Date Tetanus Booster (TDap): Unknown Date of Pneumonia Vaccine: Apr 30, 2018 Date of Influenza Vaccine: Apr 30, 2018 Past Medical History PMH As described under Assessment. Family Medical History Family History: Cardiovascular disease 19 MOTHER G8 BROTHER Congenital heart disease 19 FATHER Allergies and Home Medications Allergies Coded Allergies: No Known Drug Allergies (Verified , 05/22/07) Home Medications Aspirin 81 Mg Tab.chew, 81 MG PO DAILY Prescribed by: MADELINE NGO on 11/06/18 1533 Atorvastatin Calcium 40 Mg Tablet, 80 MG PO HS Prescribed by: MADELINE NGO on 11/06/18 1533 Clopidogrel Bisulfate 75 Mg Tablet, 75 MG PO DAILY Prescribed by: MADELINE NGO on 11/06/18 1533 Hydrocodone Bit/Acetaminophen 1 Each Tablet, 1 TAB PO Q6H PRN for PAIN-MODERATE, (Reported) Lisinopril 5 Mg Tablet, 2.5 MG PO DAILY Prescribed by: MADELINE NGO on 11/06/18 153 Metoprolol Succinate 25 Mg Tab.er.24h, 25 MG PO DAILY Prescribed by: MADELINE NGO on 11/06/181532 Patient Home Medication List Home Medication List Reviewed: Yes Physical Exam-Cardiology Physical Exam Vital Signs/I&O 01/12/20 01/12/20 01/12/20 01/12/20 22:12 22:25 22:40 22:53 Temp 35.8 Pulse 65 65 62 61 Resp 22 20 20 20 B/P (MAP) 136/83 127/84 (98) 115/89 (98) 146/94 (111) Pulse Ox 95 93 94 95 O2 Delivery Room Air Room Air Room Air Room Air 01/12/20 01/12/20 01/12/20 01/13/20 23:10 23:25 23:55 00:10 Pulse 64 59 63 59 Resp 20 B/P (MAP) 133/88 (103) 127/83 (98) 117/80 (92) 105/69 (81) Pulse Ox 95 94 92 91 01/13/20 01/13/20 01/13/20 01/13/20 01:08 01:15 02:15 03:15 Pulse 60 59 60 67 B/P (MAP) 117/76 (90) 116/79 (91) 136/88 (104) Pulse Ox 95 94 91 O2 Delivery Room Air Room Air Room Air 01/13/20 01/13/20 04:15 07:00 Temp 36.3 Pulse 60 58 Resp 20 B/P (MAP) 121/80 (94) Pulse Ox 94 O2 Delivery Room Air 01/13/20 00:00 Intake Total 1000 ml Balance 1000 ml Capillary Refill : Less Than 3 Seconds Data Review Labs Laboratory Tests 01/12/20 17:41: White Blood Count 12.6H, Red Blood Count 5.01, Hemoglobin 16.6, Hematocrit 50, Mean Corpuscular Volume 100H, Mean Corpuscular Hemoglobin 33, Mean Corpuscular Hemoglobin Concent 33, Red Cell Distribution Width 14.2, Platelet Count 240, Mean Platelet Volume 11.0H, Neutrophils (%) (Auto) 59, Lymphocytes (%) (Auto) 32, Monocytes (%) (Auto) 7, Eosinophils (%) (Auto) 2, Basophils (%) (Auto) 0, Neutrophils # (Auto) 7.4, Lymphocytes # (Auto) 4.0, Monocytes # (Auto) 0.9, Eosinophils # (Auto) 0.3, Basophils # (Auto) 0.0, Prothrombin Time 12.3, INR Comment 0.9, Activated Partial Thromboplast Time 27, D-Dimer 0.58H, Sodium Level 139, Potassium Level 4.3, Chloride Level 100, Carbon Dioxide Level 28, Anion Gap 11, Blood Urea Nitrogen 14, Creatinine 1.33H, Estimat Glomerular Filtration Rate 54, BUN/Creatinine Ratio 11, Glucose Level 144H, Calcium Level 9.9, Corrected Calcium 9.7, Magnesium Level 1.9, Total Bilirubin 0.9, Aspartate Amino Transf (AST/SGOT) 27, Alanine Aminotransferase (ALT/SGPT) 33, Alkaline Phosphatase 57, Myoglobin 181.1H, Troponin I < 0.028, C-Reactive Protein High Sensitivity 0.25, B-Type Natriuretic Peptide 38.9, Total Protein 7.5, Albumin 4.3 01/12/20 19:42: Troponin I 0.047H 01/13/20 04:50: Troponin I 2.819*H, Triglycerides Level 149, Cholesterol Level 160, LDL Cholesterol Direct 123, VLDL Cholesterol 30, HDL Cholesterol 29L A/P-Cardiology Assessment/Admission Diagnosis Ac NSTEMI Transient, sinus bradycardia (lasting 3 or 4 secs) on the morning of 01/13/20 while patient was asleep CAD - Acute ST-elevation myocardial infarction on November 06, 2018 due to ostial/proximal occlusion of the left anterior descending artery that was treated with successful primary angioplasty and stenting. Following deployment of Mirela 3.0 x 23 mm stent, there is no significant residual stenosis. The rest of the coronary vessels have diffuse moderate disease. Impairment of global left ventricular systolic function with anteroapical hypokinesis to akinesis and left ventricular ejection fraction of 35% to 40%. Elevated left ventricular end- diastolic pressure, on 11-06-2018 Most recent echo of May 21, 2019 showed LVEF 55-60%. Grade 1 diastolic dysfunction. RVSP approx 29 mmHg. Mild TR. Carotid u/s of December 2018 showed minimal bilat carotid plaque Segmental pressures of Apr 2019 showed no evidence of any signif PAD of the legs TAMI, noncompliant with CPAP Chronic tobacco use; he been advised several times to quit Hyperlipidemia - statin tx H/o intestinal perforation for which he underwent abdominal surgery in the CT angio of chest on 01/12/20: No acute pulmonary embolus.No other acute cardiopulmonary process. Bilateral pulmonary micronodules. Six month follow-up is recommended to ensure stability. Left adrenal lesion. This is incompletely characterized on this exam, but is stable. Follow-up is advised. Discussion and Recomendations * Treat with DAPT and enoxaparin * I reviewed his tele strips from this morning (see eval above). Not suitable for beta-ana due to episode of bradycardia * Would need card cath, but currently asymptomatic and COVID PCR is awaited. Will plan cath for tomorrow (earlier, if needed) Clinical Quality Measures AMI/AHF: ASA po Prior to arrival: No DVT/VTE Risk/Contraindication: Risk Factor Score Per Nursin RFS Level Per Nursing on Admit: 4+=Very High DORIAN STROUD MD FACP [facility] Jan 13, 2020 09:19
--- NOTE | 2020-01-13 10:08 | NUR ---
Pt is listed as Tenri[employer] and states that his parents were Catholics but he has not been active. [employer] offered blessing and will check back later in the day.
[2020-01-13] MEDS ORDERED: LISI-556 PO (11:36)
[2020-01-13] MEDS ORDERED: CHOL100048 PO (11:36)
[2020-01-13] MEDS ORDERED: UBID100C17 PO (11:36)
[2020-01-13] MEDS ORDERED: ASPI-983 PO (11:36)
[2020-01-13] MEDS ORDERED: FISH1CAP15 PO (11:36)
[2020-01-13] MEDS ORDERED: FEXO180T84 PO (11:36)
[2020-01-13] MEDS ORDERED: ATOR80TA76 PO (11:36)
[2020-01-13] MEDS ORDERED: MTP25TSR PO (11:36)
--- NOTE | 2020-01-13 11:37 | NUR ---
SPOKE WITH THE PT (I CALLED HIS CELL PHONE) AND WENT THRU THE EXT MED HISTORY TO COMPLETE THE MED REC PT WAS ABLE TO TELL ME HIS MEDS AND HOW/WHEN HE TAKES EACH- ALL MEDS WERE ON THE EXT MED HISTORY. IN SEPTEMBER 2019 THE PT PICKED UP PLAVIX 75MG #30- THE PT SAID HE IS NO LONGER TAKING OTC MEDS: VIT D COQ10 FISH OIL YUE ASPIRIN 81MG
--- NOTE | 2020-01-13 18:00 | History & Physical ---
History of Present Illness History of Present Illness Reason for visit/HPI This is a 64 year old male with a history of CAD who was working out in his yard and then jumped into his pool to cool off and started having substernal chest pain. He admits he had not taken any of his medications for at least 2 days as well. By the time he was half way to the hospital, his chest pain resolved but it was decided he should be admitted for further cardiac workup. Date of Admission Jan 12, 2020 at 20:36 Date Seen by a Provider: Jan 13, 2020 Time Seen by a Provider: 12:30 I consulted on this patient on 01/13/20 17:55 Attending Physician Martita Simons DO Admitting Physician No,Local Physician Consult Allergies and Home Medications Allergies Coded Allergies: No Known Drug Allergies (Verified , 05/22/07) Home Medications Aspirin 81 Mg Tablet.dr, 81 MG PO DAILY, (Reported) Atorvastatin Calcium 80 Mg Tablet, 80 MG PO HS, (Reported) Cholecalciferol (Vitamin D3) 25 Mcg Capsule, 25 MCG PO DAILY, (Reported) Fexofenadine HCl 180 Mg Tablet, 180 MG PO DAILY, (Reported) Fish Oil/Dha/Epa 1 Each Capsule, 1 EACH PO DAILY, (Reported) Hydrocodone Bit/Acetaminophen 1 Each Tablet, 1 TAB PO Q6H PRN for PAIN-MODERATE, (Reported) Lisinopril 5 Mg Tablet, 2.5 MG PO DAILY, (Reported) TAKES OF A 5MG TAB Metoprolol Succinate 25 Mg Tab.er.24h, 25 MG PO DAILY, (Reported) Ubidecarenone 100 Mg Capsule, 100 MG PO DAILY, (Reported) Patient Home Medication List Home Medication List Reviewed: Yes Past Cponrym-Uzxgxn-Nxhkde Hx Past Med/Social Hx: Reviewed Nursing Past Med/Soc Hx Patient Social History Marrital Status: Alcohol Use: Denies Use Recreational Drug Use: No Drug of Choice: THC "WHEN YOUNGER" Smoking Status: Current Everyday Smoker Type Used: Cigars, Cigarettes 2nd Hand Smoke Exposure: Yes Recent Foreign Travel: No Contact w/other who traveled: No Recent Hopitalizations: No Recent Infectious Disease Expo: No Immunizations Up To Date Tetanus Booster (TDap): Unknown Pediatric: Yes Date of Pneumonia Vaccine: Apr 30, 2018 Date of Influenza Vaccine: Apr 30, 2018 Seasonal Allergies Seasonal Allergies: No Past Medical History Surgeries: Abdominal, Bowel Surgery, Coronary Stent, Gallbladder, Joint Replacement, Orthopedic Cardiac: Coronary Artery Disease, Heart Attack, High Cholesterol, Hypertension Neurological: Neuropathy Reproductive: No Gastrointestinal: Diverticulosis History of Blood Disorders: No Family History Reviewed Nursing Family Hx Cardiovascular disease 19 MOTHER G8 BROTHER Congenital heart disease 19 FATHER Review of Systems Constitutional: weakness EENTM: No see HPI, No no symptoms reported, No ear discharge, No hearing loss, No ear pain, No blurred vision, No double vision, No eye pain, No tearing, No vision loss, No dental problems, No hoarseness, No mouth pain, No mouth swelling, No epistaxis, No nose congestion, No nose pain, No throat pain, No throat swelling, No other Respiratory: cough Cardiovascular: chest pain Gastrointestinal: No RUQ, No LUQ, No RLQ, No LLQ, No no symptoms reported, No see HPI, No abdominal pain, No constipation, No diarrhea, No dysphagia, No hematemesis, No heartburn, No jaundice, No loss of appetite, No melena, No nausea, No vomiting, No other Genitourinary: No no symptoms reported, No see HPI, No decreased output, No discharge, No dysuria, No frequency, No hematuria, No hesitancy, No incontinence, No nocturia, No pain, No other Musculoskeletal: back pain Skin: No no symptoms reported, No see HPI, No change in color, No change in hair/nails, No dryness, No hx of skin cancer, No lesions, No lumps, No pruritus, No rash, No other Psychiatric/Neurological: Weakness Physical Exam Vital Signs Vital Signs - First Documented Capillary Refill : Less Than 3 Seconds Height, Weight, BMI Height: 6'1.00" Weight: 230lbs. 0.0oz. [id number]; 33.15 BMI Method:Stated General Appearance: No Apparent Distress HEENT: Normal ENT Inspection Neck: Supple Respiratory: Rhonci, Wheezing Cardiovascular: Regular Rate, Rhythm, Systolic Murmur, Gallop/S4 Gastrointestinal: Normal Bowel Sounds, Non Tender, Soft Rectal: Deferred Back: No CVA Tenderness Extremity: Non Tender, No Calf Tenderness, No Pedal Edema Neurologic/Psychiatric: Alert, Oriented x3 Skin: Warm/Dry Comments Laboratory Tests 01/12/20 19:42: Troponin I 0.047H 6/15/20 04:50: Troponin I 2.819*H, Triglycerides Level 149, Cholesterol Level 160, LDL Cholesterol Direct 123, VLDL Cholesterol 30, HDL Cholesterol 29L Assessment/Plan Assessment and Plan 1. Acute Non STEMI--Cardiac Cath tomorrow by cardiology 2. COPD--add proair TID and q4hrs prn 3. Hypertension--home meds restarted 4. Tobacco Abuse--smoking Cessation Admission Diagnosis Admission Status: Inpatient Order (span 2 midnights) Reason for Inpatient Admission: Will need cardiac cath tomorrow Clinical Quality Measures AMI/AHF: ASA po Prior to arrival: No DVT/VTE Risk/Contraindication: Risk Factor Score Per Nursin RFS Level Per Nursing on Admit: 4+=Very High MARTITA SIMONS DO Jan 13, 2020 18:00
--- NOTE | 2020-01-13 19:51 | NUR ---
Call placed to Dr Simons to report negative COVID results. Dr Kauffman to DC isolation at this time.
[2020-01-14] VITALS (11 sets, daily range): BP systolic 105–152; BP diastolic 66–97
[2020-01-14 03:21] LABS: BASOPHILS % (AUTO) 0 % (0-10); EOSINOPHILS # (AUTO) 0.3 10^3/uL (0.0-0.3); EOSINOPHILS % (AUTO) 4 % (0-10); HEMATOCRIT 49 % (40-54); HEMOGLOBIN 15.9 G/DL (13.3-17.7); LYMPHOCYTES # (AUTO) 2.9 X 10^3 (1.0-4.0); LYMPHOCYTES % (AUTO) 30 % (12-44); MEAN CORPUSCULAR HEMOGLOBIN 33 PG (25-34); MEAN CORPUSCULAR HGB CONC 33 G/DL (32-36); MEAN CORPUSCULAR VOLUME 99 FL (80-99); MEAN PLATELET VOLUME 10.8 FL (7.4-10.4); MONOCYTES # (AUTO) 0.9 X 10^3 (0.0-1.0); MONOCYTES % (AUTO) 9 % (0-12); NEUTROPHILS # (AUTO) 5.5 X 10^3 (1.8-7.8); NEUTROPHILS % (AUTO) 57 % (42-75); PLATELET COUNT 221 10^3/uL (130-400); RED CELL DISTRIBUTION WIDTH 14.5 % (10.0-14.5); WHITE BLOOD COUNT 9.7 10^3/uL (4.3-11.0)
[2020-01-14 03:35] LABS: INR 0.9 (0.8-1.4); PROTHROMBIN TIME PATIENT 12.9 SEC (12.2-14.7)
[2020-01-14 03:45] LABS: BUN/CREATININE RATIO 11; CALCIUM 8.4 MG/DL (8.5-10.1); CARBON DIOXIDE 23 MMOL/L (21-32); CHLORIDE 104 MMOL/L (98-107); CREATININE SERUM 0.97 MG/DL (0.60-1.30); GFR ESTIMATED > 60; GLUCOSE 96 MG/DL (70-105); MAGNESIUM 2.1 MG/DL (1.6-2.4); PHOSPHORUS 3.6 MG/DL (2.3-4.7); POTASSIUM 4.4 MMOL/L (3.6-5.0); SODIUM 138 MMOL/L (135-145)
[2020-01-14] MEDS: NS IV 1000 ML 1,000 ML IV SCH ×2 (05:37→10:16)
[2020-01-14] MEDS: RT-ALBUTEROL INHALER HFA (VENTOLIN HFA) 8 GM IH SCH ×2 (07:10→14:52)
[2020-01-14] MEDS ORDERED: HEParin (CATH LAB) 2,000 ML IV ONE (08:17)
[2020-01-14] MEDS ORDERED: LIDOCAINE 1% INJ 20 ML 20 ML VIAL ONE (08:17)
[2020-01-14] MEDS: ENOXAPARIN 100 MG/1 ML (LOVENOX) SYR SC SCH (08:54)
[2020-01-14] MEDS: CLOPIDOGREL 75 MG (PLAVIX) TABLET PO SCH (08:54)
[2020-01-14] MEDS: NICOTINE 21 MG (NICODERM) PATCH TD SCH (08:54)
[2020-01-14] MEDS: ASPIRIN E.C. 81 MG (ECOTRIN) TAB PO SCH (08:54)
--- NOTE | 2020-01-14 09:46 | NUR ---
PT TO [facility] VIA BED ACCOMPANIED BY [employer] STAFF.
[2020-01-14] MEDS ORDERED: MIDAZOLAM 5 MG/5 ML (VERSED) VIAL ONE (09:51)
[2020-01-14] MEDS ORDERED: fentaNYL INJECTION 100 MCG/2 ML AMP ONE ×3 (09:51→13:48)
[2020-01-14] MEDS ORDERED: NS IV 1000 ML 1,000 ML ONE (09:55)
--- NOTE | 2020-01-14 09:57 | Consultation-Cardiology ---
HPI-Cardiology Cardiology Consultation: Date of Consultation 01/14/20 Time Seen by a Provider: 08:30 Date of Admission Attending Physician Martita Simons DO Admitting Physician Liane,Local Physician Consulting Physician DORIAN STROUD MD, MA, FACP, FACC, FSCAI,CCDS HPI: Chief Complaint: CC: Chest discomfort HPI 64 yo man with known CAD who was admitted with chest discomfort, mod, midsternal, similar to previous NC of October 2018, after he had done physical labor and jumped in the pool in which the water was quite cold, he says. This was relieved in the ER with s/l NTG in the ER. Since then he has had no recur rence of cp. He has chronic exertional shortness of breath, slowly progressive. He has chronic cough, productive sometimes of small quantities of whitish or yellowis sputum. The ER physician also notes chronic cough in his note and chose to send a swab for COVID testing. Review of Systems-Cardiology Review of Systems Constitutional: No weight loss, No weight gain Eyes: No vision change Ears/Nose/Throat: No ear discharge, No nasal drainage, No recent hearing loss, No ulcerations Respiratory: As described under HPI Cardiovascular: As described under HPI Gastrointestinal: No constipation, No diarrhea, No nausea, No vomiting Genitourinary: No dysuria, No hematuria, No urine frequency changes Musculoskeletal: No back pain, No joint pain Skin: No rash, No ulcerations Psychiatric/Neurological: No seizure, No focal weakness, No syncope Hematologic: No bleeding abnormalities BMN-Ypraxv-Fsendu Hx Patient Social History Marrital Status: Alcohol Use: Denies Use Recreational Drug Use: No Drug of Choice: THC "WHEN YOUNGER" Smoking Status: Current Everyday Smoker Type Used: Cigars, Cigarettes 2nd Hand Smoke Exposure: Yes Recent Foreign Travel: No Recent Infectious Disease Expo: No Hospitalization with Isolation: Denies Immunizations Up To Date Tetanus Booster (TDap): Unknown Date of Pneumonia Vaccine: Apr 30, 2018 Date of Influenza Vaccine: Apr 30, 2018 Past Medical History PMH As described under Assessment. Family Medical History Family History: Cardiovascular disease 19 MOTHER G8 BROTHER Congenital heart disease 19 FATHER Allergies and Home Medications Allergies Coded Allergies: No Known Drug Allergies (Verified , 05/22/07) Home Medications Aspirin 81 Mg Tablet., 81 MG PO DAILY, (Reported) Atorvastatin Calcium 80 Mg Tablet, 80 MG PO HS, (Reported) Cholecalciferol (Vitamin D3) 25 Mcg Capsule, 25 MCG PO DAILY, (Reported) Fexofenadine HCl 180 Mg Tablet, 180 MG PO DAILY, (Reported) Fish Oil/Dha/Epa 1 Each Capsule, 1 EACH PO DAILY, (Reported) Hydrocodone Bit/Acetaminophen 1 Each Tablet, 1 TAB PO Q6H PRN for PAIN-MODERATE, (Reported) Lisinopril 5 Mg Tablet, 2.5 MG PO DAILY, (Reported) TAKES OF A 5MG TAB Metoprolol Succinate 25 Mg Tab.er.24h, 25 MG PO DAILY, (Reported) Ubidecarenone 100 Mg Capsule, 100 MG PO DAILY, (Reported) Patient Home Medication List Home Medication List Reviewed: Yes Physical Exam-Cardiology Physical Exam Vital Signs/I&O 01/13/20 01/13/20 01/13/20 01/13/20 21:55 22:00 23:00 23:15 Temp 36.5 Pulse 59 57 Resp 20 22 B/P (MAP) 138/88 (105) 130/88 (102) Pulse Ox 97 96 94 O2 Delivery Room Air Nasal Cannula Nasal Cannula O2 Flow Rate 2.00 2.00 01/14/20 01/14/20 01/14/20 01/14/20 00:00 00:07 01:00 01:48 Pulse 60 62 56 Resp 21 22 B/P (MAP) 107/74 (85) 125/66 (85) Pulse Ox 95 91 89 O2 Delivery Nasal Cannula Nasal Cannula Nasal Cannula O2 Flow Rate 2.00 2.00 2.00 01/14/20 01/14/20 01/14/20 01/14/20 02:00 03:00 03:15 03:20 Temp 36.9 Pulse 72 61 Resp 11 22 B/P (MAP) 152/97 (115) 130/82 (98) Pulse Ox 90 91 92 O2 Delivery Nasal Cannula Nasal Cannula Nasal Cannula Nasal Cannula O2 Flow Rate 2.00 2.00 2.00 2.00 01/14/20 01/14/20 01/14/20 01/14/20 04:00 05:00 06:00 07:10 Pulse 56 56 57 Resp 22 47 25 B/P (MAP) 123/82 (96) 105/78 (87) 122/78 (93) Pulse Ox 91 92 91 93 O2 Delivery Nasal Cannula Nasal Cannula Nasal Cannula Nasal Cannula O2 Flow Rate 2.00 2.00 2.00 2.00 01/14/20 01/14/20 08:00 08:20 Temp 36.4 Pulse 66 Resp 12 B/P (MAP) 123/79 (94) Pulse Ox 91 92 O2 Delivery Room Air Room Air 01/14/20 00:00 Intake Total 1230 ml Output Total 1875 ml Balance -645 ml Capillary Refill : Less Than 3 Seconds Constitutional: AAO x 3, well-developed, other HEENT: EOMI, hearing is well preserved; No xanthelasmas are seen Neck: carotid pulses are 2 + bilaterally, with good upstrokes Respiratory: No accessory muscle use; other (Fair, bilateral air entry; prolonged exp phase) Cardiovascular: regular rate-rhythm, S1 and S2, systolic murmur (soft LEXUS at card base) Gastrointestinal: No tender; soft; No guarding, No rebound; audible bowel sounds Extremities: No clubbing, No cyanosis, No significant edema Neurologic/Psychiatric: oriented x 3, other (moves all limbs equally) Skin: No rash on exposed areas, No ulcerations on exposed areas Data Review Labs Laboratory Tests 01/14/20 03:00: White Blood Count 9.7, Red Blood Count 4.89, Hemoglobin 15.9, Hematocrit 49, Mean Corpuscular Volume 99, Mean Corpuscular Hemoglobin 33, Mean Corpuscular Hemoglobin Concent 33, Red Cell Distribution Width 14.5, Platelet Count 221, Me an Platelet Volume 10.8H, Neutrophils (%) (Auto) 57, Lymphocytes (%) (Auto) 30, Monocytes (%) (Auto) 9, Eosinophils (%) (Auto) 4, Basophils (%) (Auto) 0, Neutrophils # (Auto) 5.5, Lymphocytes # (Auto) 2.9, Monocytes # (Auto) 0.9, Eosinophils # (Auto) 0.3, Basophils # (Auto) 0.0, Prothrombin Time 12.9, INR Comment 0.9, Activated Partial Thromboplast Time 41H, Sodium Level 138, Potassium Level 4.4, Chloride Level 104, Carbon Dioxide Level 23, Anion Gap 11, Blood Urea Nitrogen 11, Creatinine 0.97, Estimat Glomerular Filtration Rate > 60, BUN/Creatinine Ratio 11, Glucose Level 96, Calcium Level 8.4L, Phosphorus Level 3.6, Magnesium Level 2.1 Laboratory Tests 01/12/20 17:41 01/14/20 03:00 A/P-Cardiology Assessment/Admission Diagnosis Ac NSTEMI Transient, sinus bradycardia (lasting 3 or 4 secs) on the morning of 01/13/20 while patient was asleep CAD - Acute ST-elevation myocardial infarction on November 06, 2018 due to ostial/proximal occlusion of the left anterior descending artery that was t reated with successful primary angioplasty and stenting. Following deployment of Mirela 3.0 x 23 mm stent, there is no significant residual stenosis. The rest of the coronary vessels have diffuse moderate disease. Impairment of global left ventricular systolic function with anteroapical hypokinesis to akinesis and left ventricular ejection fraction of 35% to 40%. Elevated left ventricular end-diastolic pressure, on 11-06-2018 Most recent echo of May 21, 2019 showed LVEF 55-60%. Grade 1 diastolic dysfunction. RVSP approx 29 mmHg. Mild TR. Carotid u/s of December 2018 showed minimal bilat carotid plaque Segmental pressures of Apr 2019 showed no evidence of any signif PAD of the legs TAMI, noncompliant with CPAP Chronic tobacco use; he been advised several times to quit Hyperlipidemia - statin tx H/o intestinal perforation for which he underwent abdominal surgery in the CT angio of chest on 01/12/20: No acute pulmonary embolus.No other acute cardiopulmonary process. Bilateral pulmonary micronodules. Six month follow-up is recommended to ensure stability. Left adrenal lesion. This is incompletely characterized on this exam, but is stable. Follow-up is advised. COVID-PCR negative (drawn evening of 01/12/20, reported evening of 01/13/20) Discussion and Recomendations * Treat with DAPT and enoxaparin * Not suitable for beta-ana due to episode of bradycardia * Advised to quit smoking immediately and completely * I had a long and detailed discussion with him. Given this presentation and elevated troponin and known CAD and continuing risk factors, card cath is recommended. We discussed the rationale, procedure, risks, benefits, potential complications, and alternatives of card cath and ad hoc PCI (if needed) with him in detail and answered questions. He provides informed consent Clinical Quality Measures AMI/AHF: ASA po Prior to arrival: No DVT/VTE Risk/Contraindication: Risk Factor Score Per Nursin RFS Level Per Nursing on Admit: 4+=Very High DORIAN STROUD MD FACP FACC CCDS Jan 14, 2020 09:57
--- NOTE | 2020-01-14 10:01 | Cardiac Procedure Note-CS/ASA ---
Pre-Procedure Note Pre-Op Procedure Note H&P Reviewed The H&P was reviewed, patient examined and no changes noted. Date H&P Reviewed: Jan 14, 2020 Time H&P Reviewed: 10:01 Conscious Sedation Pre-Proced Time 10:01 ASA Score 3 For ASA 3 and 4: Consider anesthesia and medical clearance. Also, for patients with a history of failed moderate sedation consider anesthesia. Airway Lungs Heart ASA score ASA 1: a normal healthy patient ASA 2: a patient with a mild systemic disease (mid diabetes, controlled hypertension, obesity ASA 3: a patient with a severe systemic disease that limits activity (angina, COPD, prior Myocardial infarction) ASA 4: a patient with an incapacitating disease that is a constant threat to life (CHF, renal failure) ASA 5: a moribund patient not expected to survive 24 hrs. (ruptured aneurysm) ASA 6: a declared brain- patient whose organs are being harvested. For emergent operations, add the letter E after the classification Mallampati Classification Grade 2 Sedation Plan Analgesia, Amnesia, Plan communicated to team members, Discussed options with patient/fam, Discussed risks with patient/fam The patient is an appropriate candidate to undergo the planned procedure, sedation, and anesthesia. The patient immediately re-assessed prior to indication. DORIAN STROUD MD FACP FAC CCDS Jan 14, 2020 10:01
[2020-01-14] MEDS ORDERED: CLOPIDOGREL 300 MG (PLAVIX) TABLET PO ONE (10:23)
[2020-01-14] MEDS ORDERED: EPTIFIBATIDE BOLUS 20 ML IV ONE (10:23)
[2020-01-14] MEDS ORDERED: ASPIRIN 81 MG CHEW (CHILDREN'S ASA) ONE (10:24)
[2020-01-14] MEDS ORDERED: NITRO DRIP 25000 MCG/D5W 0 ML IV ONE (10:24)
[2020-01-14] MEDS ORDERED: NS IV 1000 ML 1,000 ML IV SCH (11:04)
[2020-01-14] MEDS ORDERED: PATIENT MAY USE OWN MEDS, ALL PO SCH (11:15)
--- NOTE | 2020-01-14 12:13 | CARDIAC CATHETERIZATION ---
DATE OF SERVICE: 01/14/2020 CARDIAC CATHETERIZATION AND CORONARY INTERVENTION REPORT The patient is a 64-year-old man who is known to have coronary artery disease and has continuing risk factors that include smoking cigarettes. He was hospitalized with acute non-ST elevation myocardial infarction. Cardiac catheterization was carried out today after having obtained informed consent for cardiac catheterization and possible ad hoc coronary intervention. DESCRIPTION OF PROCEDURE: He was brought to the cardiac catheterization laboratory. Right groin was prepared and draped in the usual sterile fashion. Lidocaine 1% was used for local anesthesia. Modified Seldinger technique used to advance a 5-[place] sheath in the right femoral artery, 5-[place] JL4.5 catheter was used for left coronary angiography and 5-[place] JR4 catheter was used for right coronary angiography. A 5-[place] pigtail catheter was used for left heart catheterization and left ventricular angiography. PERCUTANEOUS INTERVENTION TO THE LEFT ANTERIOR DESCENDING: Following completion of the diagnostic procedure, we carried out percutaneous intervention of the left anterior descending where the proximally stented vessel was exhibiting approximately 60% proximal stenosis with haziness suggestive of a partial thrombus. We exchanged the sheath over a wire for a 6-[place] sheath. We gave a double bolus of Integrilin during the procedure. The patient had received weight-based Lovenox a couple of hours prior to the interventional procedure. We used a 6-[place] JL4.5 guide catheter to engage the coronary artery. We advanced a BMW wire across the lesion and the tip was placed in the distal vessel. We carried out balloon angioplasty at the lesion with Emerge 3.0 x 12 mm balloon, which was inflated up to 18 atmospheres. Subsequent angiography reveals no significant residual stenosis and no haziness. Flow throughout the vessel is normal. The angioplasty equipment was removed. Sheath was sutured in place and the patient was transferred to the floor for manual sheath removal. He tolerated the procedure well. HEMODYNAMICS: Left ventricular end-diastolic pressure following coronary angiography was 16 mmHg. There is no significant pressure gradient on pullback across the aortic valve. Ascending aortic pressure is 127/88. CORONARY ANGIOGRAPHY: Left main coronary artery does not exhibit significant disease. Left anterior descending artery has a stent in its proximal portion with a 60% proximal in-stent restenosis with haziness to which successful balloon angioplasty was carried out, which reduced the stenosis to 0% residual and resolution of the haziness. The mid right coronary artery exhibits approximately 40% to 50% stenosis. It was not intervened on. Left circumflex artery has mild plaque. Right coronary artery is large and dominant and has diffuse moderate disease and calcification. VENTRICULAR ANGIOGRAPHY: Left ventricular angiography was carried out in the right anterior oblique projection. No distinct regional wall motion abnormalities seen. Global left ventricular systolic function normal. Left ventricular ejection fraction approximately 60%. CONCLUSIONS: 1. Coronary artery disease primarily consisting of 60% in-stent restenosis with haziness in the proximal left anterior descending where the patient had an Alpine Xience 3.0 x 23 mm stent in 10/2018. Successful balloon angioplasty was carried out of this lesion with angiographic resolution of the lesion. The rest of the vessels have mild to moderate diffuse disease. 2. Normal global left ventricular systolic function with ejection fraction approximately 60%. 3. Mild elevation of left ventricular end-diastolic pressure. DISCUSSION AND RECOMMENDATIONS: Dual antiplatelet therapy is being continued. Compliance has been advised. Have advised him to quit smoking immediately and completely. He is not suitable for beta blockers because of a history of intermittent bradycardia. Statin therapy is recommended. Compliance with medications is advised. Job ID: [id number] DocumentID: [id number] Dictated Date: 01/14/2020 10:59:04 Blood Tester Fowl Date: 01/14/2020 12:13:16 Dictated By: DORIAN STROUD MD, MA, FACP, FACC, MTDD
[2020-01-14] MEDS ORDERED: ATROPINE INJECTION 1 MG/10 ML SYR (ABBOTT) ONE (13:49)
[2020-01-14] MEDS ORDERED: CLOP75TA28 PO (15:44)
[2020-01-14] MEDS ORDERED: ASPI-999 PO (15:44)
--- NOTE | 2020-01-14 19:32 | NUR ---
Patient ambulated in the [place], no difficulties. Patient back to room with new onset of nausea and vomiting x 1. Patient reports feeling better post. Patient signed DC papers and IV removed, This RN attempted to get patient to stay for a bit longer to monitor symptom but patient refused. Groin dressing c/d/i. No drainage or hematoma noted.
--- NOTE | 2020-01-14 19:36 | NUR ---
Patient assisted to and taken to the front entrance of the hospital for discharge per private vehicle. Patient home with . Patient verbalized discharge instructions.
== END 2020-01-14 19:36 | disposition home or self-care (01) | DRG 282 ==
LOC: EDUNIT# 17:27 → ER 17:29 → 4TH 20:36 → CSD 01-13 07:12 → ICU 01-13 08:02
PROVIDERS: ADMIT Family Medicine; ATTEND Family Medicine
PROC: 4A023N7 Measurement of Cardiac Sampling and Pressure, Left Heart, Percutaneous Approach (ICD-10-PCS; principal; 2020-01-12)
PROC: B2111ZZ Fluoroscopy of Multiple Coronary Arteries using Low Osmolar Contrast (ICD-10-PCS; 2020-01-12)
PROC: B2151ZZ Fluoroscopy of Left Heart using Low Osmolar Contrast (ICD-10-PCS; 2020-01-12)
DX: I21.4 Non-ST elevation (NSTEMI) myocardial infarction (principal); I25.10 Atherosclerotic heart disease of native coronary artery without angina pectoris; F17.200 Nicotine dependence, unspecified, uncomplicated; G47.33 Obstructive sleep apnea (adult) (pediatric); E78.5 Hyperlipidemia, unspecified; J44.9 Chronic obstructive pulmonary disease, unspecified; R00.1 Bradycardia, unspecified; R91.1 Solitary pulmonary nodule; Z79.82 Long term (current) use of aspirin; Z95.5 Presence of coronary angioplasty implant and graft
CPT/HCPCS: 36415; 71045; 71275; 80048; 80053; 80061; 83735; 83874; 83880; 84100; 84484; 85025; 85379; 85610; 85730; 86141; 87081; 87635; 93005; 93041; 93458; 94640

== ENCOUNTER → 2020-01-28 | Outpatient (CLI) | payer OTHER, MEDICARE ==
[~2020-01-28] MED LIST changes: +ASPI-983 PO; +ATOR80TA76 PO; +CHOL100048 PO; +FEXO180T84 PO; +FISH1CAP15 PO; +UBID100C17 PO
--- NOTE | 2020-01-28 13:36 | Diagnostic Imaging Report ---
INDICATION: Right leg pain. Right leg venous Doppler study was performed in the routine fashion with color flow Doppler and waveform analysis. FINDINGS: The right common femoral vein, superficial femoral vein, popliteal vein and visualized portion of the tibial veins show normal compressibility and venous flow patterns. There is normal augmentation. IMPRESSION: No evidence of deep vein thrombosis of the major veins of the right leg. Dictated by: Dictated on workstation # [id number]
--- NOTE | 2020-01-28 13:45 | Diagnostic Imaging Report ---
INDICATION: Right leg pain. EXAMINATION: Grayscale, color-flow and duplex Doppler evaluation of the right lower extremity arterial system was performed. FINDINGS: Predominantly triphasic waveforms throughout the right lower extremity arterial system is noted. Velocities are unremarkable. No velocity elevation or stenosis is seen. There is no occlusion. No fluid collection or mass is detected. IMPRESSION: Unremarkable right lower extremity arterial Doppler. Dictated by: Dictated on workstation # [id number]
== END ==
LOC: RAD 12:13
PROVIDERS: ATTEND Nurse Practitioner Family
DX: R22.41 Localized swelling, mass and lump, right lower limb (principal)
CPT/HCPCS: 93926

== ENCOUNTER → 2020-02-03 | Outpatient (CLI) | payer OTHER ==
--- NOTE | 2020-02-03 13:29 | Diagnostic Imaging Report ---
PROCEDURE: US right lower extremity venous. TECHNIQUE: Multiple real-time grayscale images were obtained over the right lower extremity in various projections. Additional spectral analysis and color Doppler duplex images were also obtained. INDICATION: Right leg pain and swelling. COMPARISON: 01/28/2020 FINDINGS: The right common femoral vein, femoral vein, deep femoral vein, and popliteal vein are normal in appearance. These vessels show normal compressibility, color flow and doppler augmentation. The visualized deep calf veins demonstrate no distinct intraluminal thrombus. IMPRESSION: 1. No sonographic evidence of deep venous thrombosis in the right lower extremity. Dictated by: Dictated on workstation # [id number]
== END ==
LOC: RAD 12:25
PROVIDERS: ATTEND Internal Medicine Cardiovascular Disease
DX: I25.10 Atherosclerotic heart disease of native coronary artery without angina pectoris (principal); I65.29 Occlusion and stenosis of unspecified carotid artery; E78.5 Hyperlipidemia, unspecified; Z72.0 Tobacco use; M79.604 Pain in right leg; M79.89 Other specified soft tissue disorders

== ENCOUNTER → 2020-02-25 | Outpatient (CLI) | payer OTHER | LOC: RAD 12:30 | PROVIDERS: ATTEND Internal Medicine Cardiovascular Disease | DX: M79.604 Pain in right leg (principal); I25.10 Atherosclerotic heart disease of native coronary artery without angina pectoris; Z53.9 Procedure and treatment not carried out, unspecified reason ==

== ENCOUNTER 2020-06-09 10:50 | Emergency (ER) | payer OTHER ==
[~2020-06-09] VITALS: Ht 187.9 cm; Wt 113.3 kg
[~2020-06-09 10:50] MED LIST changes: +ASPI-1238 PO; -ASPI-983 PO
--- NOTE | 2020-06-09 11:16 | ED Lower Extremity ---
General Stated Complaint: R LEG PAIN, GROIN AREA Source: patient Exam Limitations: no limitations History of Present Illness Date Seen by Provider: Jun 09, 2020 Time Seen by Provider: 11:13 Initial Comments To ER patient sent to ER by primary care provider's office for CT scan of the right thigh. 1 week ago he did the splits on accident and has had subsequent swelling and pain of the posterior medial aspect of the right thigh proximally. He states that he has already had imaging done of the right wrist and was told it was normal. He also injured this during the fall. Severity: moderate Pain/Injury Location: right thigh Method of Injury: fell Modifying Factors: Worse With Movement Allergies and Home Medications Allergies Coded Allergies: No Known Drug Allergies (Verified , 05/22/07) Home Medications Aspirin 81 Mg Tab.chew, 81 MG PO DAILY Prescribed by: MADELINE NGO on 01/14/20 1544 Atorvastatin Calcium 80 Mg Tablet, 80 MG PO HS, (Reported) Cholecalciferol (Vitamin D3) 25 Mcg Capsule, 25 MCG PO DAILY, (Reported) Clopidogrel Bisulfate 75 Mg Tablet, 75 MG PO DAILY Prescribed by: MADELINE NGO on 01/14/20 1544 Fexofenadine HCl 180 Mg Tablet, 180 MG PO DAILY, (Reported) Fish Oil/Dha/Epa 1 Each Capsule, 1 EACH PO DAILY, (Reported) Hydrocodone Bit/Acetaminophen 1 Each Tablet, 1 TAB PO Q6H PRN for PAIN-MODERATE, (Reported) Ubidecarenone 100 Mg Capsule, 100 MG PO DAILY, (Reported) Patient Home Medication List Home Medication List Reviewed: Yes Review of Systems Constitutional: see HPI EENTM: see HPI Respiratory: no symptoms reported Cardiovascular: no symptoms reported Genitourinary: no symptoms reported Musculoskeletal: no symptoms reported Skin: no symptoms reported Psychiatric/Neurological: No Symptoms Reported Past Vwfavnl-Ggvqww-Ktrbip Hx Patient Social History Drug of Choice: THC "WHEN YOUNGER" Type Used: Cigars, Cigarettes 2nd Hand Smoke Exposure: Yes Recent Foreign Travel: No Contact w/Someone Who Travel: No Recent Hopitalizations: No Immunizations Up To Date Tetanus Booster (TDap): Unknown PED Vaccines UTD: Yes Date of Pneumonia Vaccine: Apr 30, 2018 Date of Influenza Vaccine: Apr 30, 2018 Seasonal Allergies Seasonal Allergies: No Past Medical History Surgeries: Yes Abdominal, Bowel Surgery, Coronary Stent, Gallbladder, Joint Replacement, Orthopedic Respiratory: No Cardiac: Yes Coronary Artery Disease, Heart Attack, High Cholesterol, Hypertension Neurological: Yes Neuropathy Reproductive Disorders: No Genitourinary: No Gastrointestinal: Yes (HAS AN UNBILICAL HERNIA, 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 0.0oz. [id number]; 33.15 BMI Method:Stated General Appearance: WD/WN, no apparent distress Respiratory: no respiratory distress, no accessory muscle use Hips: bilateral hip non-tender, bilateral hip normal inspection, bilateral hip normal range of motion Legs: right leg other (To the posterior medial aspect of the right thigh has a large hematoma without erythema.) Knees: bilateral knee non-tender, bilateral knee normal inspection, bilateral knee normal range of motion Ankles: bilateral ankle non-tender, bilateral ankle normal inspection, bilateral ankle normal range of motion Feet: bilateral foot non-tender, bilateral foot normal inspection, bilateral foot normal range of motion Neurologic/Psychiatric: alert, normal mood/affect, oriented x 3 Skin: normal color, warm/dry He states the swelling in his right wrist is quite improved. He is currently on antibiotics for suspected infection of the hematoma. Progress/Results/Core Measures Results/Orders Lab Results Laboratory Tests Test 06/09/20 11:15 Range/Units White Blood Count 13.2 H 4.3-11.0 10^3/uL Red Blood Count 4.35 4.30-5.52 10^6/uL Hemoglobin 13.8 13.3-17.7 g/dL Hematocrit 43 40-54 % Mean Corpuscular Volume 99 80-99 fL Mean Corpuscular Hemoglobin 32 25-34 pg Mean Corpuscular Hemoglobin Concent 32 32-36 g/dL Red Cell Distribution Width 13.4 10.0-14.5 % Platelet Count 362 130-400 10^3/uL Mean Platelet Volume 9.5 9.0-12.2 fL Immature Granulocyte % (Auto) 1 % Neutrophils (%) (Auto) 70 42-75 % Lymphocytes (%) (Auto) 19 12-44 % Monocytes (%) (Auto) 8 0-12 % Eosinophils (%) (Auto) 2 0-10 % Basophils (%) (Auto) 0 0-10 % Neutrophils # (Auto) 9.3 H 1.8-7.8 10^3/uL Lymphocytes # (Auto) 2.5 1.0-4.0 10^3/uL Monocytes # (Auto) 1.0 0.0-1.0 10^3/uL Eosinophils # (Auto) 0.3 0.0-0.3 10^3/uL Basophils # (Auto) 0.0 0.0-0.1 10^3/uL Immature Granulocyte # (Auto) 0.1 0.0-0.1 10^3/uL Sodium Level 135 135-145 MMOL/L Potassium Level 4.4 3.6-5.0 MMOL/L Chloride Level 97 L 98-107 MMOL/L Carbon Dioxide Level 27 21-32 MMOL/L Anion Gap 11 5-14 MMOL/L Blood Urea Nitrogen 16 7-18 MG/DL Creatinine 0.95 0.60-1.30 MG/DL Estimat Glomerular Filtration Rate > 60 BUN/Creatinine Ratio 17 Glucose Level 149 H 70-105 MG/DL Calcium Level 8.8 8.5-10.1 MG/DL My Orders Orders - BERTA LOMAX APRN Cbc With Automated Diff (06/09/20 11:12) Basic Metabolic Panel (06/09/20 11:12) Ed Iv/Invasive Line Start (06/09/20 11:12) Ct Extremity Lower Right W (06/09/20 11:12) Iohexol Injection (Omnipaque 350 Mg/Ml 1 (06/09/20 12:15) Received Contrast (Hold Metformin- Contr (06/09/20 12:15) Ns (Ivpb) (Sodium Chloride 0.9% Ivpb Bag (06/09/20 12:15) Fentanyl Injection (Sublimaze Injection (06/09/20 12:15) Medications Given in ED Current Medications Medications Dose Ordered Sig/Nolberto Route Start Time Stop Time Status Last Admin Dose Admin Fentanyl Citrate 50 mcg ONCE ONCE IVP 06/09/20 12:15 06/09/20 12:16 DC 06/09/20 12:50 50 MCG Iohexol 100 ml ONCE ONCE IV 06/09/20 12:15 06/09/20 12:16 DC 06/09/20 12:29 100 ML Sodium Chloride 100 ml ONCE ONCE IV 06/09/20 12:15 06/09/20 12:16 DC 06/09/20 12:29 80 ML Vital Signs/I&O 06/09/20 10:59 Temp 36.0 Pulse 83 Resp 22 B/P (MAP) 137/81 (99) Pulse Ox 94 O2 Delivery Room Air Departure Communication (Admissions) I will be sending the patient from the emergency room over to Dr. Aldana's office. Impression Primary Impression: Intramuscular hematoma Disposition: HOME, SELF-CARE Condition: Stable Departure-Patient Inst. Decision time for Depature: 13:07 Referrals: NORI ALDANA JACQUELINE S DO (PCP/Family) Primary Care Physician Patient Instructions: HEMATOMA Add. Discharge Instructions: 1. Return to ER for any concerns. Continue all current meds. Go From here directly to Dr Real office. Scripts [Toilet Riser] No Conflict Check FLORENCE PRN, #1 0 Refills Diagnosis: [id number] Prov: BERTA LOMAX APRN 06/09/20 Copy Copies To 1: NORI ALDANA PETER J APRN Jun 09, 2020 11:16
[2020-06-09 11:23] LABS: BASOPHILS % (AUTO) 0 % (0-10); EOSINOPHILS # (AUTO) 0.3 10^3/uL (0.0-0.3); EOSINOPHILS % (AUTO) 2 % (0-10); HEMATOCRIT 43 % (40-54); HEMOGLOBIN 13.8 g/dL (13.3-17.7); LYMPHOCYTES # (AUTO) 2.5 10^3/uL (1.0-4.0); LYMPHOCYTES % (AUTO) 19 % (12-44); MEAN CORPUSCULAR HEMOGLOBIN 32 pg (25-34); MEAN CORPUSCULAR HGB CONC 32 g/dL (32-36); MEAN CORPUSCULAR VOLUME 99 fL (80-99); MEAN PLATELET VOLUME 9.5 fL (9.0-12.2); MONOCYTES % (AUTO) 8 % (0-12); NEUTROPHILS # (AUTO) 9.3 10^3/uL (1.8-7.8); NEUTROPHILS % (AUTO) 70 % (42-75); PLATELET COUNT 362 10^3/uL (130-400); WHITE BLOOD COUNT 13.2 10^3/uL (4.3-11.0)
[2020-06-09 11:40] LABS: BUN/CREATININE RATIO 17; CALCIUM 8.8 MG/DL (8.5-10.1); CARBON DIOXIDE 27 MMOL/L (21-32); CHLORIDE 97 MMOL/L (98-107); CREATININE SERUM 0.95 MG/DL (0.60-1.30); GFR ESTIMATED > 60; GLUCOSE 149 MG/DL (70-105); POTASSIUM 4.4 MMOL/L (3.6-5.0); SODIUM 135 MMOL/L (135-145)
[2020-06-09] MEDS ORDERED: fentaNYL INJECTION 100 MCG/2 ML AMP IVP ONE (12:15)
[2020-06-09] MEDS ORDERED: NS 100 ML (IVPB) BAG IV ONE (12:15)
[2020-06-09] MEDS ORDERED: HOLD METFORMIN - RECEIVED CONTRAST 20 ML VIAL IV SCH (12:15)
[2020-06-09] MEDS ORDERED: IOHEXOL 350 MG/ML 100 ML (OMNIPAQUE 350) VIAL IV ONE (12:15)
--- NOTE | 2020-06-09 13:03 | Diagnostic Imaging Report ---
PROCEDURE: CT right lower extremity with contrast. TECHNIQUE: Multiple contiguous axial CT images of the right extremity were obtained after intravenous administration of iodinated contrast. Auto Exposure Controls were utilized during the CT exam to meet ALARA standards for radiation dose reduction. INDICATION: Right groin injury with pain and swelling. FINDINGS: There is a complex fluid collection identified in the right-sided posterior thigh hamstring musculature, medially measuring approximately 20 cm cephalocaudal x 8.6 cm x 7.2 cm. This is consistent with a large intramuscular hematoma. This commences at the level of the hamstring insertion on the ischial tuberosity and extends inferiorly to approximately level of the midthigh. This appears to be primarily localized to the semi-tendinosis musculature. The integrity of the common tendon attachment of the hamstring on the ischial tuberosity is difficult to ascertain by CT. No active contrast extravasation is seen. IMPRESSION: Large intramuscular hematoma involving the right posterior thigh involving the hamstring musculature, as described. No active contrast extravasation is seen. Dictated by: Dictated on workstation # [id number]
[2020-06-09] MEDS ORDERED: [UNRECOGNIZED DRUG - OTHER] (13:10)
[2020-06-09 13:20] VITALS: BP 137/81
== END 2020-06-09 13:21 | disposition home or self-care (01) ==
LOC: EDUNIT# 10:50 → ER 10:52
DX: S70.11XA Contusion of right thigh, initial encounter (principal); I25.2 Old myocardial infarction; E78.00 Pure hypercholesterolemia, unspecified; Z82.49 Family history of ischemic heart disease and other diseases of the circulatory system; Z95.5 Presence of coronary angioplasty implant and graft; Z77.22 Contact with and (suspected) exposure to environmental tobacco smoke (acute) (chronic); Z79.82 Long term (current) use of aspirin; W19.XXXA Unspecified fall, initial encounter
CPT/HCPCS: 36415; 73701; 80048; 85025

== ENCOUNTER → 2020-07-03 | Outpatient (CLI) | payer OTHER ==
[~2020-07-03] MED LIST changes: +[UNRECOGNIZED DRUG - OTHER]
--- NOTE | 2020-07-03 13:33 | Diagnostic Imaging Report ---
INDICATION: History of right-sided epididymitis TECHNIQUE: Real-time grayscale sonographic imaging and color vascular evaluation of the scrotum. CORRELATION STUDY: None FINDINGS: RIGHT TESTICLE: 4.4 x 2.6 x 3.3 cm. LEFT TESTICLE: 4.5 x 2.9 x 3.1 cm. The testicles are in normal location and demonstrate homogeneous echotexture. There is vascular flow to the testicles. Multiple cysts are noted about the right epididymal head. Left epididymis unremarkable. IMPRESSION: 1. Unremarkable scrotal ultrasound examination. Dictated by: Dictated on workstation # [id number]
== END ==
LOC: RAD 12:30
PROVIDERS: ATTEND Urology
DX: N45.1 Epididymitis (principal)
CPT/HCPCS: 76870

== ENCOUNTER → 2021-07-16 | Outpatient (CLI) | payer OTHER ==
[~2021-07-16] MED LIST changes: -LISI-556 PO; +LISI5TAB20 PO
== END ==
LOC: LABNPT 06:48
PROVIDERS: ATTEND Family Medicine
DX: Z53.9 Procedure and treatment not carried out, unspecified reason (principal)

== ENCOUNTER → 2022-01-11 | Outpatient (CLI) | payer OTHER ==
[~2022-01-11] VITALS: Ht 187 cm; Wt 101.0 kg
[~2022-01-11] MED LIST changes: +REGADENOSON 0.4 MG/5 ML SYR (LEXISCAN) IV ONE
[2022-01-11] MEDS: CATHETER FLUSH 10 ML SYR IVP PRN ×2 (11:03→12:36)
[2022-01-11 12:35] VITALS: BP 128/85
--- NOTE | 2022-01-13 14:49 | STRESS TEST ---
DATE OF SERVICE: 01/11/2022 RESTING AND POST REGADENOSON TECHNETIUM-99M TETROFOSMIN SPECT CT IMAGING Baseline images were carried out after injection of 10.89 mCi of technetium-99m Tetrofosmin. This was followed by 0.4 mg regadenoson and 29.5 mCi of technetium-99m Tetrofosmin for stress imaging. The electrocardiogram showed sinus rhythm at baseline. It did not change significantly with regadenoson infusion. Isolated premature atrial contractions were seen. The patient tolerated the procedure well. Review of images at rest and following stress does not indicate any distinct perfusion defects consistent with significant myocardial ischemia or infarction. Some degree of diaphragmatic attenuation is seen both at rest and following regadenoson infusion. Gated images show normal regional wall motion, including the diaphragmatic wall of the left ventricle. Left ventricular ejection fraction is calculated to be 57%. This is technically difficult study because of significant patient motion during image acquisition during stress. CONCLUSIONS: 1. No evidence of significant myocardial ischemia or infarction on this study. 2. Normal regional wall motion. 3. Normal global left ventricular systolic function with a calculated ejection fraction of 57%. Job ID: [id number] DocumentID: [id number] Dictated Date: 01/13/2022 12:09:03 Acute Care Assistant Date: 01/13/2022 14:48:33 Dictated By: DORIAN STROUD MD, MA, FACP, FACC,
== END ==
LOC: CARD 10:48
PROVIDERS: ATTEND Nurse Practitioner Family
DX: I25.10 Atherosclerotic heart disease of native coronary artery without angina pectoris (principal)
CPT/HCPCS: 78452; 93017; A9502